=== PATIENT | female | born 1955 | race Caucasian/White ===

== ENCOUNTER 2018-01-12 19:33 | Outpatient (REF) | payer OTHER, SELFPAY ==
[2018-01-12 22:06] LABS: ALT 37 U/L (12-78); AST 17 U/L (15-37); Albumin 3.4 g/dL (3.4-5.0); Alkaline Phosphatase 176 U/L (46-116); Anion Gap 9.9 mmol/L (3-11); BUN 14 mg/dL (7-18); Bilirubin, Total 0.4 mg/dL (0.2-1.0); CO2 26.1 mmol/L (21.0-32.0); CREATININE 1.09 mg/dL (0.55-1.02); Calcium 8.6 mg/dL (8.5-10.1); Chloride 102 mmol/L (98-107); Estimated GFR 50.54 (mL/min/1.73m2); Glucose 329 mg/dL (70-100); Potassium 4.1 mmol/L (3.5-5.1); Sodium 138 mmol/L (136-145); Total Protein 6.7 g/dL (6.4-8.2)
== END 2018-01-12 19:53 ==
LOC: NCHCN 19:33
PROVIDERS: PCP Family Medicine; Visit Provider Family Medicine
DX: E11.9 Type 2 diabetes mellitus without complications (principal); I10 Essential (primary) hypertension
CPT/HCPCS: 80053

== ENCOUNTER 2018-04-04 01:06 | Outpatient (CLI) | payer OTHER, SELFPAY ==
--- NOTE | 2018-04-04 09:34 | DIABASSESS_ITS ---
DESCRIPTION/ASSESSMENT: Nallely Velazquez presents for diabetes self management with elevated A1c at 13.5. Despite hyperglycemia she reports no symptoms of thirst, frequent urination, fatigue caused by hyperglycemia. 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 FOOD: Nallely eats breakfast and supper, occasionally gets lunch on the go. She usually has toast and jelly for breakfast with black coffee. She may snack on fruit or sweets (i.e. Mongolian rolls) or tuna packet during the day. She mostly eats processed foods for supper (i.e. corn dogs) or scrambled egg. She occasionally has frozen fruit bar in the evening. Her does not cook and she frequently gets home at 6PM or later. She dislikes vegetables other than green beans, corn and peas. She denies hunger. She drinks 40oz water, sugar free soda and black coffee most days. PHYSICAL ACTIVITY: exercise is a should and does not enjoy this. She feels she has no time, and since her achilles injury has a fear of falling. She is also limited by vertigo. MEDICATION: 44 units Basal insulin twice daily and Byetta which she only takes once a day. I did not ask her the timing of her Byetta injection. She reports no change in appetite. She states she has Novolog but does not take it. Her medication list also includes Januvia and Glucotrol XL. She did not say she took these medications. MONITORING: every morning and sometimes before supper. Blood sugars are improved 122-229 fasting and pre-supper blood sugars 97 and 114. She had hypoglycemia symptoms at 97. This occurs when she does not eat during the day. COPING: She admits to daily stress with work but deals with it and does not seek any change. She sleeps 6 interrupted hours a night. INTERVENTION: DSME is provided in the following AADE 7 areas based on patients interest and assessment of needs: FOOD GUIDELINES: reviewed diabetes food guide focused on non-carbohydrate foods to nourish her through the day. She voices no motivation or interest in changing her food choices. PHYSICAL ACTIVITY: Discussed how it might fit in her day. She has no interest in doing this and finds no secondary pleasure to make it worth the effort, though she is well aware of its benefits. MEDICATION: She states she voices doubt about adding another BYETTA injection for supper. MONITORING: Blood sugars are improved but fasting generally is higher than pre- supper. Suggest she test blood sugar before bed to see if correction happens with basal insulin overnight. CGM no approved without multiple insulin dosing daily. If she initiates mealtime insulin and has wide glycemic excursions, CGM trial may be available to her if desired. Nallely is engaged in the conversation but expresses no interest in working on lifestyle as she works long hours and finds it difficult to make changes at this time. ACTION PLAN: Carry nuts and non-carbohydrate snack packs in the car for mid-day nourishment Monitor blood sugars before bed a couple of nights to assess change in blood sugar overnight and what may be causing hyperglycemia in the AM. I will call her to reinforce Byetta twice a day. Individual DSME/T ____ units billed TIME IN: OUT: No DM group education series being offered at this time.
== END 2018-04-04 01:26 ==
PROVIDERS: PCP Family Medicine; Visit Provider Dietitian, Registered
DX: E11.9 Type 2 diabetes mellitus without complications (principal); Z79.4 Long term (current) use of insulin; Z71.3 Dietary counseling and surveillance
CPT/HCPCS: G0108

== ENCOUNTER 2018-09-22 11:16 | Inpatient (IN) | payer OTHER, SELFPAY ==
[2018-09-22] VITALS (32 sets, daily range): BP systolic 129–186; BP diastolic 71–139; PULSE 84–97; RESP 16–24; TEMP 36.8–37.5; O2SAT 89–99
--- NOTE | 2018-09-22 11:28 | ED.GENADUL_ITS ---
Discharge Plan Disposition Patient Disposition: [facility] INPATIENT Condition: Stable Discharge Details Chief Complaint: Abd Prob Clinical Impression: Acute pyelonephritis, JAY (acute kidney injury), Intractable pain Admit Date/Time: 09/24/18 10:20 Admit Provider: Kevin Zhang Attending Provider: Kevin Zhang Primary Care Provider: Haylee Baptiste V ED Provider: Coni Lopez Discharge Data Discharge Date/Time-TO BE ENTERED AT DEPARTURE: 09/22/18 15:38 Medical Decision Making 63yo F w/ a h/o diabetes, fibromyalgia, coronary artery disease, GERD, hypothyroidism who presents the ED with complaint of left lower quadrant and left flank pain that started 30 minutes ago. Blood pressure hypertensive. She appears uncomfortable but nontoxic. She has minimal left side and left lower quadrant tenderness, no rigidity or guarding. Differential diagnosis includes kidney stone, diverticulitis, pancreatitis, small bowel obstruction, pyelonephritis, gastroenteritis. Will place an IV, bolus IV fluids, screening labs, urinalysis and CT renal colic. 1250 --labs and imaging reviewed. White blood cell count 15. Creatinine 1.38, normally 1.09. GFR 38, normally in the 50s. Glucose 507 but with normal bicarb, anion gap 12. Lipase within normal limits. CT notes findings consistent likely with recently passed stone but no ureterolithiasis noted. 1305 --pt feels a little better but pain still 5/10. She would like another dose of pain medicine but a smaller dose. We will give 0.2 mg of Dilaudid. Urine results pending. 1325 --nurse states that patient vomited after Dilaudid. Dose of Compazine and more IV fluids ordered. 1330 --discussed with Dr. Phelps -states that in patients with diabetes, they can slough off a piece of renal papilla which can produce findings similar to a recently passed stone. Treatment is the same. As patient has no relief with multiple doses of pain medication, acute kidney injury, and UTI, will admit for pain control, IV fluids and reassessment of labs in a.m. 1345 --discussed with hospitalist -accepts patient for admission. Medical Records Medical records reviewed: Yes I reviewed the patient's medical records. Imaging Data Radiologic Study: Radiologist's impression: ABDOMEN AND PELVIC CT: CT examination of the abdomen and pelvis was performed without contrast administration. Images obtained through the lung bases show question poorly defined nodule of the left lower lobe, this measures about 5 mm. in diameter. Follow up chest CT suggested in 6 months. The liver may be mildly enlarged. Spleen is unremarkable in appearance. Gallbladder has been surgically removed. No biliary dilatation is seen. Pancreas unremarkable by noncontrast criteria. Abdominal aorta is of normal diameter. No significant abdominal wall hernia is seen. No significant abdominal or pelvic adenopathy is seen. A solitary 16 mm. lymph node which is nonspecific is noted in the left para-aortic chain at the level of the left kidney. Appendix is not specifically visualized but there is no evidence of ap pendicitis or diverticulitis. Adrenals appear normal bilaterally. Right kidney is unremarkable in appearance and there is no right renal or ureteral calcification. Left kidney is hydronephrotic and the left ureter is not significantly dilated raising the possibility of UPJ obstruction. No stone identified. Urinary bladder shows a thickened wall. CONCLUSION: Left hydronephrosis of uncertain etiology. The findings could represent a recently passed stone, or non calcified stone, or clot or obstructing non calcified tumor of the left ureter. Left sided urinary tract obstruction, etiology uncertain. Correlation with retrograde ureteroscopy should be considered. Urinary bladder wall thickening noted which may be secondary to chronic obstructive process versus cystitis. Please correlate clinically. Lab Data Lab results reviewed: Yes I reviewed the patient's lab results. 09/22/18 12:50 Urine - Reflex from Ua Urine Culture - Final Gram Positive Zenia,Mixed Gram Negative Zenia,Mixed Laboratory Tests Range/Units 09/22/18 09/22/18 09/22/18 11:30 11:30 12:50 WBC (4.4-10.8) k/cumm 15.67 H RBC (4.00-5.20) m/cumm 4.99 Hgb (12.0-15.5) g/dL 14.1 Hct (36.0-46.0) % 42.3 MCV (80-95) fL 84.8 MCH (27.0-33.0) pg 28.3 MCHC (32.0-36.0) g/dL 33.3 RDW (11.7-14.6) % 13.2 Plt Count (130-400) x1000/uL 319 MPV (8.0-11.0) fL 11.6 H Immature Gran % 0.3 Neutrophils % 82.5 Lymphocytes % 12.2 Monocytes % 3.8 Eosinophils % 1.0 Basophils % 0.2 Absolute Neutrophils (1.2-6.7) k/cumm 12.93 H Absolute Lymphocytes (1.2-3.4) k/cumm 1.91 Absolute Monocytes (0.11-0.7) k/cumm 0.60 Absolute Eosinophils (0.0-0.7) k/cumm 0.16 Absolute Basophils (0.0-0.2) k/cumm 0.03 Sodium (136-145) mmol/L 133 L Potassium (3.5-5.1) mmol/L 4.5 Chloride (98-107) mmol/L 98 Carbon Dioxide (21.0-32.0) mmol/L 22.1 Anion Gap (3-11) mmol/L 12.9 H BUN (7-18) mg/dL 17 Creatinine (0.55-1.02) mg/dL 1.38 H Estimated GFR/1.73 m2 (mL/min/1.73m2) 38.49 Glucose (70-100) mg/dL 507 H* Calcium (8.5-10.1) mg/dL 8.7 Magnesium (1.8-2.4) mg/dL Total Bilirubin (0.2-1.0) mg/dL 0.4 AST (15-37) U/L 15 ALT (12-78) U/L 32 Alkaline Phosphatase (46-116) U/L 188 H Total Protein (6.4-8.2) g/dL 7.7 Albumin (3.4-5.0) g/dL 3.6 Lipase (73-393) U/L 168 Urine Color (Yellow) Yellow Urine Clarity (Clear) Clear Urine pH (5-8) 5.5 Ur Specific Trade (1.005-1.025) <= 1.005 Urine Protein (Negative) mg/dL Negative Urine Ketones (Negative) mg/dL Negative Urine Blood (Negative) Small H Urine Nitrite (Negative) Negative Urine Bilirubin (Negative) Negative Urine Urobilinogen (Up TO 0.2) EU/dL 0.2 Ur Leukocyte Esterase (Negative) Negative Urine RBC (0-2) 5-10 H Urine WBC (0-5) HPF 20-50 Ur Epithelial Cells (Negative) HPF Moderate Urine Crystals (Negative) HPF Negative Urine Bacteria (Negative) HPF Few Urine Casts (Negative) LPF Negative Urine Mucus (Negative) Negative Urine Other (Negative) Ur Culture Indicated? Yes Urine Glucose (Negative) mg/dL 500 H HPI General Mode of arrival: ambulatory . Date/Time Provider Initiated Documentation: 09/22/18 11:16 . Limitations to Documentation: no limitations . Information obtained by: patient . HPI Narrative: Patient is a 63-year-old female with a history of diabetes, hypertension, CAD, fibromyalgia, hypothyroidism with history of cholecystectomy and Meckel's diverticulum who presents with constant sharp left lower quadrant abdominal pain that started 30 minutes prior to arrival. She states her last bowel movement was this morning and within normal limits without bleeding. She admits to nausea but denies any vomiting, chest pain, shortness of breath, fever or urinary symptoms. She denies any history of kidney stones. Related Data Home Medications Medication Instructions Recorded Confirmed albuterol sulfate 1 - 2 puff INHALATION Q4H PRN 10/14/13 09/22/18 inhaler nitroglycerin [Nitrostat] 0.4 mg SUBLINGUAL DIRECTED 10/14/13 09/22/18 tramadol [Ultram] 50 mg PO Q6H PRN tab-cap 10/14/13 09/22/18 clopidogrel [Plavix] 75 mg PO DAILY #30 tab-cap 10/22/13 09/22/18 Delica Lancets 01/05/15 One Touch Mini Gluc 01/05/15 blood sugar diagnostic [Onetouch strip 01/05/15 09/02/16 Ultra Test Strips] fluticasone propionate [Flonase 9.9 ml NS DAILY 01/05/15 09/22/18 Allergy Relief] insulin detemir U-100 [Levemir 44 units SUB-Q BID 01/05/15 09/22/18 Vial] omeprazole [Prilosec] 20 mg PO BID tab-cap 01/05/15 09/22/18 isosorbide mononitrate 60 mg PO DAILY #60 tab-cap 01/26/15 09/22/18 atorvastatin 80 mg tablet 80 mg PO DAILY 03/06/18 09/22/18 benzonatate 100 mg capsule 100 mg PO TID PRN 03/06/18 09/22/18 exenatide 10 mcg SC .BEFORE MEALS ml 03/06/18 09/22/18 glipizide 10 mg tablet 10 mg PO DAILY 03/06/18 09/22/18 ibuprofen 800 mg tablet 800 mg PO BID 03/06/18 09/22/18 insulin aspart U-100 100 unit/mL 5 unit SC .WITH MEAL ml 03/06/18 09/22/18 subcutaneous solution losartan 100 mg tablet 50 mg PO DAILY tab 03/06/18 09/22/18 metoprolol succinate 25 mg 50 mg PO DAILY #45 tab-cap 03/06/18 09/22/18 tablet,extended release 24 hr nabumetone 750 mg tablet 750 mg PO BID 03/06/18 09/22/18 ondansetron HCl 4 mg tablet 4 mg PO .qq 4 HRS PRN tab 03/06/18 09/22/18 sitagliptin 100 mg tablet 100 mg PO DAILY 03/06/18 09/22/18 triamcinolone acetonide 0.5 % 1 applic TP TID 03/06/18 09/22/18 topical cream Allergies Allergy/AdvReac Type Severity Reaction Status Date / Time Iodinated Contrast Media Allergy Severe Anaphylaxsi Unverified 09/22/18 11:56 [Iodinated Contrast Media - s IV Dye] iodine Allergy Severe Unverified 09/22/18 11:56 amlodipine Allergy Intermediate Verified 09/22/18 11:56 codeine Allergy Unverified 09/22/18 11:56 hepatitis B virus vaccine Allergy Unverified 09/22/18 11:56 lisinopril Allergy Unverified 09/22/18 11:56 meperidine HCl [From Demerol] Allergy Unverified 09/22/18 11:56 metformin HCl Allergy Unverified 09/22/18 11:56 [From Glucophage] prednisone Allergy Unverified 09/22/18 11:56 shellfish derived Allergy Unverified 09/22/18 11:56 meperidine AdvReac Severe Cardiac Unverified 09/22/18 11:56 Dysrythmia morphine AdvReac Severe Nausea Unverified 09/22/18 11:56 oxaprozin [From Daypro] AdvReac Severe ams Unverified 09/22/18 11:56 sulindac [From Clinoril] AdvReac Intermediate ams Unverified 09/22/18 11:56 General Stated Complaint: Abd Prob ANSHU: 3 Review of Systems Review of Systems All systems reviewed & are unremarkable except as noted in HPI and below Constitutional Reports as per HPI, Denies chills and Denies fever(s) Eyes Denies blurry vision ENT Denies dizziness, Denies sore throat and Denies throat swelling Cardiovascular Denies chest pain and Denies dyspnea Respiratory Denies cough and Denies dyspnea Gastrointestinal Reports abdominal pain, Denies diarrhea and Denies vomiting Genitourinary Denies hematuria and Denies dysuria Musculoskeletal Denies back pain and Denies numbness Integumentary/Breasts Denies lesions and Denies rash Neurologic Denies dizziness, Denies focal weakness and Denies numbness Allergic/Immunologic Denies throat swelling PFSH Medical History Sagastume esophagus CAD (coronary artery disease) Cardiac murmur DM (diabetes mellitus) Fibromyalgia GERD (gastroesophageal reflux disease) Hiatal hernia Hydronephrosis, left (Acute) Hyperlipidemia (Acute) Hypothyroidism Sarcoidosis Surgical History (Updated 09/25/18 @ 08:42 by Coni Lopez DO) Cubital tunnel syndrome (Acute) egd/colo (10/20/15) Hx of cholecystectomy (Chronic) Hx of Meckel's diverticulum (Acute) TMJ (temporomandibular joint syndrome) (Acute) Social History Smoking/Tobacco Use Status: Never Drug use: Never Do you feel safe at home: Yes Do you feel safe in your relationship?: Yes Exam Const General: cooperative, healthy appearing and no acute distress HENMT Head: normal to inspection Face and sinus: normal facial exam Eyes General: appearance normal, both eyes and all related structures Pupils: PERRL EOM: EOM intact bilaterally Neck Neck: normal visual inspection and No submandibular swelling Lymphatic: no lymphadenopathy noted Chest Chest: normal inspection of the chest and no tenderness Resp Effort & Inspection: normal respiratory effort and able to speak in complete sentences Auscultation: clear to auscultation bilaterally Cardio Rate: regular rate Rhythm: regular rhythm GI Inspection: normal to inspection Palpation: soft, not firm, not rigid and tender (Minimal at left mid and left lower quadrant) Auscultation: normal bowel sounds Back/Spine/Pelvis Back: no CVA tenderness Skin General skin exam: no rashes or lesions noted Neuro General: alert, awake and oriented x3 Cognition: normal cognition Speech: speech normal Motor: muscle tone normal throughout Sensory Exam: no sensory deficits noted Extrem General: normal to inspection, full ROM, normal capillary refill, no calf tenderness bilaterally and no edema Psych Appearance: grossly normal Mental Status: mental status grossly normal Speech and Movement: speech and movement normal Affect: normal affect Course Vital Signs Temperature 98.2 F 09/22/18 11:19 Pulse 94 H 09/22/18 11:19 Respiratory Rate 18 09/22/18 11:19 Blood Pressure 186/113 H 09/22/18 11:19 Pulse Oximetry 97 09/22/18 11:19 Temperature 98.2 F 09/22/18 11:19 Temperature Source Skin 09/22/18 11:19 Pulse 94 H 09/22/18 11:19 Respiratory Rate 18 09/22/18 11:19 Blood Pressure 186/113 H 09/22/18 11:19 Pulse Oximetry 97 09/22/18 11:19 Oxygen Delivery Method Room Air 09/22/18 11:19 Oxygen Flow Rate 0 09/22/18 11:19 Pain Level 10 09/22/18 11:19
[2018-09-22] MEDS: Ondansetron 4 MG/2 ML VIAL (11:32)
[2018-09-22] MEDS: Ketorolac 30 MG/ML VIAL (11:35)
[2018-09-22] MEDS: Normal Saline Flush 10 ML SYR IVP ×2 (11:41→17:33)
[2018-09-22] MEDS: Normal Saline 1,000 ML 1000 ML IV (11:43)
[2018-09-22 11:51] LABS: Abs Immature Grans 0.04 k/cumm (0.0-0.09); Absolute Basophil Count 0.03 k/cumm (0.0-0.2); Absolute Lymphocyte Count 1.91 k/cumm (1.2-3.4); Basophils % 0.2; HCT 42.3 % (36.0-46.0); HGB 14.1 g/dL (12.0-15.5); Immature Grans % 0.3; Lymphocytes % 12.2; Mean Corp. HGB Concentration 33.3 g/dL (32.0-36.0); Mean Corpuscular Hemoglobin 28.3 pg (27.0-33.0); Mean Corpuscular Volume 84.8 fL (80-95); Mean Platelet Volume 11.6 fL (8.0-11.0); Monocytes % 3.8; Neutrophils % 82.5; Platelet Count 319 x1000/uL (130-400); RBC 4.99 m/cumm (4.00-5.20); RBC Distribution Width 13.2 % (11.7-14.6); White Blood Cell Count 15.67 k/cumm (4.4-10.8)
[2018-09-22 11:56] LABS: Absolute Eosinophil Count 0.16 k/cumm (0.0-0.7); Absolute Neutrophil Count 12.93 k/cumm (1.2-6.7)
[2018-09-22 12:10] LABS: ALT 32 U/L (12-78); AST 15 U/L (15-37); Albumin 3.6 g/dL (3.4-5.0); Alkaline Phosphatase 188 U/L (46-116); Anion Gap 12.9 mmol/L (3-11); BUN 17 mg/dL (7-18); Bilirubin, Total 0.4 mg/dL (0.2-1.0); CO2 22.1 mmol/L (21.0-32.0); CREATININE 1.38 mg/dL (0.55-1.02); Calcium 8.7 mg/dL (8.5-10.1); Chloride 98 mmol/L (98-107); Estimated GFR 38.49 (mL/min/1.73m2); Lipase 168 U/L (73-393); Potassium 4.5 mmol/L (3.5-5.1); Sodium 133 mmol/L (136-145); Total Protein 7.7 g/dL (6.4-8.2)
[2018-09-22 12:13] LABS: Glucose 507 mg/dL (70-100)
[2018-09-22] MEDS: HYDROmorphone 2 MG/ML VIAL (12:17)
--- NOTE | 2018-09-22 12:25 | DI.CT_ITS ---
SYMPTOM/DIAGNOSIS: LLQ ABD PAIN, LT FLANK PAIN, ? KIDNEY STONE, ? DIVERTICULITIS OR PANCREATITIS ABDOMEN AND PELVIC CT: CT examination of the abdomen and pelvis was performed without contrast administration. Images obtained through the lung bases show question poorly defined nodule of the left lower lobe, this measures about 5 mm. in diameter. Follow up chest CT suggested in 6 months. The liver may be mildly enlarged. Spleen is unremarkable in appearance. Gallbladder has been surgically removed. No biliary dilatation is seen. Pancreas unremarkable by noncontrast criteria. Abdominal aorta is of normal diameter. No significant abdominal wall hernia is seen. No significant abdominal or pelvic adenopathy is seen. A solitary 16 mm. lymph node which is nonspecific is noted in the left para-aortic chain at the level of the left kidney. Appendix is not specifically visualized but there is no evidence of appendicitis or diverticulitis. Adrenals appear normal bilaterally. Right kidney is unremarkable in appearance and there is no right renal or ureteral calcification. Left kidney is hydronephrotic and the left ureter is not significantly dilated raising the possibility of UPJ obstruction. No stone identified. Urinary bladder shows a thickened wall. CONCLUSION: Left hydronephrosis of uncertain etiology. The findings could represent a recently passed stone, or non calcified stone, or clot or obstructing non calcified tumor of the left ureter. Left sided urinary tract obstruction, etiology uncertain. Correlation with retrograde ureteroscopy should be considered. Urinary bladder wall thickening noted which may be secondary to chronic obstructive process versus cystitis. Please correlate clinically.
--- NOTE | 2018-09-22 12:51 | DI.VRAD_ITS ---
EXAM: CT Abdomen and Pelvis Without Contrast EXAM DATE/TIME: 09/22/2018 11:39 AM CLINICAL HISTORY: 63 years old, female; Abdominal pain; Left lower quadrant (llq); Patient HX: Llq pain and left flank pain since 1030 am 09/22/18. No gross hematuria, no HX of kidney stones, no recent surgeries. TECHNIQUE: Imaging protocol: Axial computed tomography images of the abdomen and pelvis without contrast. Coronal and sagittal reformatted images were created and reviewed. Radiation optimization: All CT scans at this facility use at least one of these dose optimization techniques: automated exposure control; mA and/or kV adjustment per patient size (includes targeted exams where dose is matched to clinical indication); or iterative reconstruction. COMPARISON: No relevant prior studies available. FINDINGS: Lungs: 4.7 mm nodule in the left lower lobe. Atelectasis in the lingula Mediastinum: Small hiatal hernia Liver: Normal. No mass. Gallbladder and bile ducts: Cholecystectomy Pancreas: Normal. No ductal dilation. Spleen: Normal. No splenomegaly. Adrenals: Normal. No mass. Kidneys and ureters: There is dilatation of LEFT collecting system and proximal LEFT ureter. No ureteral calculus. The LEFT kidney is edematous and there is significant LEFT perirenal stranding. Stomach and bowel: Diverticulosis of the rectosigmoid. No diverticulitis. Appendix: No evidence of appendicitis. Intraperitoneal space: Normal. No free air. No significant fluid collection. Vasculature: Normal. No abdominal aortic aneurysm. Lymph nodes: Normal. No enlarged lymph nodes. Bladder: Unremarkable as visualized. Reproductive: Unremarkable as visualized. Bones/joints: No acute fracture. No dislocation. Soft tissues: Unremarkable. IMPRESSION: 1. There is dilatation of LEFT collecting system and proximal LEFT ureter. No ureteral calculus. The LEFT kidney is edematous and there is significant LEFT perirenal stranding. The findings could be due to a recently passed stone, a noncalcified stone or clot or soft tissue process in the right ureter, or an infectious/inflammatory process of the blank collecting system. 2. 4.7 mm nodule in the left lower lobe. Dictated and Authenticated by: Pat Schilling MD. Ordering:ANAM Newberry MD
[2018-09-22 13:00] LABS: Bilirubin Negative (Negative); Blood Small (Negative); Clarity Clear (Clear); Glucose 500 mg/dL (Negative); Ketones Negative (Negative); Leukocyte Esterase Negative (Negative); Nitrite Negative (Negative); Specific Gravity <= 1.005 (1.005-1.025); Urobilinogen 0.2 EU/dL (Up TO 0.2); pH 5.5 (5-8)
[2018-09-22 13:09] LABS: WBC 20-50 HPF (0-5)
[2018-09-22 13:10] LABS: Bacteria Few HPF (Negative); C & S Indicated? Yes; Casts Negative LPF (Negative); Crystals Negative HPF (Negative); Epithelial Cells Moderate HPF (Negative); Mucus Negative (Negative)
[2018-09-22] MEDS: HYDROmorphone 2 MG/ML VIAL IVP (13:12)
[2018-09-22] MEDS: Normal Saline 1,000 ML 125 ML IV ×2 (13:20→18:20)
[2018-09-22] MEDS: Insulin REGULAR-Human 100 UNITS/ML UNIT 7 UNITS IV (13:23)
[2018-09-22] MEDS: Prochlorperazine 10 MG/2 ML VIAL IVP (13:59)
[2018-09-22] MEDS: cefTRIAXone 1 GM/50 ML BAG IVPB (14:28)
--- NOTE | 2018-09-22 15:18 | HPE_ITS ---
Date of service: 09/22/18 Time of Service: 15:53 Assessment and Plan (1) JAY (acute kidney injury): Current visit: Yes Status: Acute Patient presents to [facility] emergency department for left sided flank pain with tenderness. Urinalysis negative for nitrates and leukocytes. Dr. Phelps consulted in the ED and believes patient passed a kidney stone prior to arrival. She is admitted to [facility] for JAY from possible stone, she will be lightly hydrated with NS at 125. Beyetta and ARB held for renal function. Januvia will be changed to 50 for decreased renal function. Avoid nephrotoxic medications. IV tylenol for pain and home dose of tramadol. Monitor renal function and electrolytes. (2) Hyperglycemia: Start date: 09/22/18 Start time: 15:29 Current visit: Yes Status: Acute In the setting of an infection with nausea prompting patient to skip am dose resulting in a glucose of 507 by labs and 500 urine. Given 7 units IV insulin in ED. Started on saline continue home medication of glipizide, SSI- moderate, Januvia at 50 for renal dosing, resume 100 mg when renally appropriate. Monitor electrolytes and renal function. (3) HTN (hypertension): Start date: 09/22/18 Start time: 15:33 Current visit: Yes Status: Chronic Continue metoprolol and isosorbide (4) Hyperlipidemia: Start date: 09/22/18 Start time: 15:34 Current visit: Yes Status: Acute Continue atorvastatin (5) DVT prophylaxis: Start date: 09/22/18 Start time: 15:34 Current visit: Yes Status: Acute enoxaparin (6) GERD (gastroesophageal reflux disease): Start date: 09/22/18 Start time: 15:34 Current visit: No Status: None Omeprazole (7) Fibromyalgia: Start date: 09/22/18 Start time: 15:35 Current visit: No Status: None continue home dose of tramadol and IV tylenol for pain (8) CAD (coronary artery disease): Start date: 09/22/18 Start time: 15:35 Current visit: No Status: None History of Present Illness Chief Complaint: JAY, POSSIBLE STONE Narrative: 63 y.o Female with PMH of Insulin dependent diabetes, GERD, Fibromyalgia, CAD, Hyperlipidemia, and HTN presents to [facility] emergency department with severe onset of left lower quad abdominal pain and flank pain. Dr. Phelps consulted in ED and believed to have passed a kidney stone prior to her arrival. Labs in the ED reveal glucose of 507 creatinine 1.38. anion gap of 12.9, CO2 of 22.1 . Urinalysis reveals no nitrates, no leukocytes, small amount of blood, and urine glucose of 500. She has been asked to be admitted to our service for for A KI, UTI- which she does not appear to have, and pain control. Light hydration was started, avoid nephrotoxic medications, Januvia decreased to 50 mg from 100 mg for decreased renal function. Beyetta and ARB held due to renal function. Hyperglycemia in the setting of kidney stone with nausea prompted the patient to skip her am dose of medications resulting elevated glucose. SSI with moderate scale for glucose monitoring; her repeat BGL 177 after treatment in the ED. Continue glipizide, diabetic diet and monitor electrolytes. Continue home Isorsobide and metoprolol for HTN, hold ARB. Atorvastatin for hyperlipidemia. Patient also states Echo many years ago with cardiac cath revealing only 25% blockage of a vessel so she was placed on plavix, we will continue plavix. She denies n/v/d, IV tylenol for pain and her home regimen of tramadol. No CVA tenderness at this time and she states her abdominal pain only feels sore now. Denies CP, SOB. Review of Systems Review of Systems All systems reviewed & are unremarkable except as noted in HPI and below Constitutional Reports system reviewed and no additional complaints, except as docu Eyes Reports system reviewed and no additional complaints, except as docu ENT Reports system reviewed and no additional complaints, except as docu Cardiovascular Reports system reviewed and no additional complaints, except as docu Respiratory Reports system reviewed and no additional complaints, except as docu Gastrointestinal Reports as per HPI Genitourinary Reports as per HPI Musculoskeletal Reports system reviewed and no additional complaints, except as docu Integumentary/Breasts Reports system reviewed and no additional complaints, except as docu Neurologic Reports system reviewed and no additional complaints, except as docu Psychiatric Reports system reviewed and no additional complaints, except as docu Endocrine Reports as per HPI Hematologic/Lymphatic Reports system reviewed and no additional complaints, except as docu Allergic/Immunologic Reports system reviewed and no additional complaints, except as [facility] Medical History Sagastume esophagus CAD (coronary artery disease) Cardiac murmur DM (diabetes mellitus) Fibromyalgia GERD (gastroesophageal reflux disease) Hiatal hernia Hydronephrosis, left (Acute) Hyperlipidemia (Acute) Hypothyroidism Sarcoidosis Surgical History (Updated 09/25/18 @ 08:42 by Coni Lopez DO) Cubital tunnel syndrome (Acute) egd/colo (10/20/15) Hx of cholecystectomy (Chronic) Hx of Meckel's diverticulum (Acute) TMJ (temporomandibular joint syndrome) (Acute) Social History Smoking/Tobacco Use Status: Never Drug use: Never Do you feel safe at home: Yes Do you feel safe in your relationship?: Yes Meds Home Medications Medication Instructions Recorded Confirmed Type albuterol sulfate 1 - 2 puff INHALATION Q4H PRN 10/14/13 09/22/18 History inhaler nitroglycerin [Nitrostat] 0.4 mg SUBLINGUAL DIRECTED 10/14/13 09/22/18 History tramadol [Ultram] 50 mg PO Q6H PRN tab-cap 10/14/13 09/22/18 History clopidogrel [Plavix] 75 mg PO DAILY #30 tab-cap 10/22/13 09/22/18 History Delica Lancets 01/05/15 History One Touch Mini Gluc 01/05/15 History blood sugar diagnostic [Onetouch strip 01/05/15 09/02/16 History Ultra Test Strips] fluticasone propionate [Flonase 9.9 ml NS DAILY 01/05/15 09/22/18 History Allergy Relief] insulin detemir U-100 [Levemir 44 units SUB-Q BID 01/05/15 09/22/18 History Vial] omeprazole [Prilosec] 20 mg PO BID tab-cap 01/05/15 09/22/18 History isosorbide mononitrate 60 mg PO DAILY #60 tab-cap 01/26/15 09/22/18 History atorvastatin 80 mg tablet 80 mg PO DAILY 03/06/18 09/22/18 History benzonatate 100 mg capsule 100 mg PO TID PRN 03/06/18 09/22/18 History exenatide 10 mcg SC .BEFORE MEALS ml 03/06/18 09/22/18 History glipizide 10 mg tablet 10 mg PO DAILY 03/06/18 09/22/18 History ibuprofen 800 mg tablet 800 mg PO BID 03/06/18 09/22/18 History insulin aspart U-100 100 unit/mL 5 unit SC .WITH MEAL ml 03/06/18 09/22/18 History subcutaneous solution losartan 100 mg tablet 50 mg PO DAILY tab 03/06/18 09/22/18 History metoprolol succinate 25 mg 50 mg PO DAILY #45 tab-cap 03/06/18 09/22/18 History tablet,extended release 24 hr nabumetone 750 mg tablet 750 mg PO BID 03/06/18 09/22/18 History ondansetron HCl 4 mg tablet 4 mg PO .qq 4 HRS PRN tab 03/06/18 09/22/18 History sitagliptin 100 mg tablet 100 mg PO DAILY 03/06/18 09/22/18 History triamcinolone acetonide 0.5 % 1 applic TP TID 03/06/18 09/22/18 History topical cream Allergies Allergy/AdvReac Type Severity Reaction Status Date / Time Iodinated Contrast Media Allergy Severe Anaphylaxsi Unverified 09/22/18 11:56 [Iodinated Contrast Media - s IV Dye] iodine Allergy Severe Unverified 09/22/18 11:56 amlodipine Allergy Intermediate Verified 09/22/18 11:56 codeine Allergy Unverified 09/22/18 11:56 hepatitis B virus vaccine Allergy Unverified 09/22/18 11:56 lisinopril Allergy Unverified 09/22/18 11:56 meperidine HCl [From Demerol] Allergy Unverified 09/22/18 11:56 metformin HCl Allergy Unverified 09/22/18 11:56 [From Glucophage] prednisone Allergy Unverified 09/22/18 11:56 shellfish derived Allergy Unverified 09/22/18 11:56 meperidine AdvReac Severe Cardiac Unverified 09/22/18 11:56 Dysrythmia morphine AdvReac Severe Nausea Unverified 09/22/18 11:56 oxaprozin [From Daypro] AdvReac Severe ams Unverified 09/22/18 11:56 sulindac [From Clinoril] AdvReac Intermediate ams Unverified 09/22/18 11:56 Exam Const General: cooperative, healthy appearing, comfortable and no acute distress [facility] Head: normal to inspection Ears: hearing grossly normal bilaterally Eyes General: appearance normal, both eyes and all related structures Pupils: PERRL Neck Neck: normal visual inspection Lymphatic: no lymphadenopathy noted and no lymphedema noted Chest Chest: normal inspection of the chest Resp Effort & Inspection: normal respiratory effort Auscultation: clear to auscultation bilaterally Cardio Jugular venous pressure: no JVD Palpation: normal PMI Rate: regular rate Rhythm: regular rhythm Heart Sounds: S1 normal and S2 normal GI Inspection: normal to inspection Palpation: soft Auscultation: normal bowel sounds General: No CVA tenderness Back/Spine/Pelvis Back: no CVA tenderness Cervical Spine: cervical ROM normal Skin General skin exam: no rashes or lesions noted Lesions: no lesions Rashes: no rashes Trauma: no lacerations or abrasions Wounds: no wounds Neuro General: alert, awake, oriented x3 and moves all extremities Extrem General: normal to inspection Right upper extremity: normal to inspection Left upper extremity: normal to inspection Right lower extremity: normal to inspection Left lower extremity: normal to inspection Psych Appearance: grossly normal Results Labs : 09/26/18 06:45 09/26/18 06:45 Laboratory Results - last 24 hr 09/22/18 09/22/18 09/22/18 11:30 11:30 12:50 WBC 15.67 H RBC 4.99 Hgb 14.1 Hct 42.3 MCV 84.8 MCH 28.3 MCHC 33.3 RDW 13.2 Plt Count 319 MPV 11.6 H Immature Gran % 0.3 Neutrophils % 82.5 Lymphocytes % 12.2 Monocytes % 3.8 Eosinophils % 1.0 Basophils % 0.2 Absolute Neutrophils 12.93 H Absolute Lymphocytes 1.91 Absolute Monocytes 0.60 Absolute Eosinophils 0.16 Absolute Basophils 0.03 Sodium 133 L Potassium 4.5 Chloride 98 Carbon Dioxide 22.1 Anion Gap 12.9 H BUN 17 Creatinine 1.38 H Estimated GFR/1.73 m2 38.49 Glucose 507 H* Calcium 8.7 Total Bilirubin 0.4 AST 15 ALT 32 Alkaline Phosphatase 188 H Total Protein 7.7 Albumin 3.6 Lipase 168 Urine Color Yellow Urine Clarity Clear Urine pH 5.5 Ur Specific [place] <= 1.005 Urine Protein Negative Urine Ketones Negative Urine Blood Small H Urine Nitrite Negative Urine Bilirubin Negative Urine Urobilinogen 0.2 Ur Leukocyte Esterase Negative Urine RBC 5-10 H Urine WBC 20-50 Ur Epithelial Cells Moderate Urine Crystals Negative Urine Bacteria Few Urine Casts Negative Urine Mucus Negative Ur Culture Indicated? Yes Urine Glucose 500 H Last Vital Signs Temp 37.0 C 09/22/18 12:55 Pulse 87 09/22/18 14:31 Resp 24 09/22/18 14:40 BP 150/72 H 09/22/18 14:31 Pulse Ox 94 L 09/22/18 14:40
[2018-09-22] MEDS: ACETAMINOPHEN 1,000 MG/100 ML BTL 400 MG IVPB ×2 (17:25→23:58)
[2018-09-22] MEDS: Ondansetron 4 MG/2 ML VIAL IVP (17:33)
[2018-09-22] MEDS: Enoxaparin 40 MG/0.4 ML SYR SC (17:37)
[2018-09-22] MEDS: Omeprazole 20 MG CAPCR PO (19:50)
[2018-09-23] MEDS: Normal Saline 1,000 ML 125 ML IV ×2 (01:48→09:40)
[2018-09-23] MEDS: ACETAMINOPHEN 1,000 MG/100 ML BTL 400 MG IVPB ×4 (06:17→23:30)
[2018-09-23 07:05] LABS: Abs Immature Grans 0.05 k/cumm (0.0-0.09); Absolute Basophil Count 0.02 k/cumm (0.0-0.2); Absolute Neutrophil Count 13.73 k/cumm (1.2-6.7); Basophils % 0.1; Eosinophils % 0.2; HCT 38.4 % (36.0-46.0); HGB 12.7 g/dL (12.0-15.5); Immature Grans % 0.3; Lymphocytes % 11.6; Mean Corp. HGB Concentration 33.1 g/dL (32.0-36.0); Mean Corpuscular Hemoglobin 28.3 pg (27.0-33.0); Mean Corpuscular Volume 85.7 fL (80-95); Mean Platelet Volume 11.3 fL (8.0-11.0); Monocytes % 4.3; Neutrophils % 83.5; Platelet Count 246 x1000/uL (130-400); RBC 4.48 m/cumm (4.00-5.20); RBC Distribution Width 13.1 % (11.7-14.6); White Blood Cell Count 16.44 k/cumm (4.4-10.8)
[2018-09-23 07:09] LABS: Absolute Eosinophil Count 0.03 k/cumm (0.0-0.7); Absolute Lymphocyte Count 1.91 k/cumm (1.2-3.4); Absolute Monocyte Count 0.71 k/cumm (0.11-0.7)
[2018-09-23 07:17] LABS: Anion Gap 11.4 mmol/L (3-11); BUN 18 mg/dL (7-18); CO2 20.6 mmol/L (21.0-32.0); CREATININE 1.62 mg/dL (0.55-1.02); Calcium 7.8 mg/dL (8.5-10.1); Chloride 107 mmol/L (98-107); Estimated GFR 31.99 (mL/min/1.73m2); Glucose 193 mg/dL (70-100); Magnesium 1.5 mg/dL (1.8-2.4); Potassium 4.3 mmol/L (3.5-5.1); Sodium 139 mmol/L (136-145)
[2018-09-23 07:49] VITALS: BP 122/71; PULSE 89; RESP 16; TEMP 36.5; O2SAT 96
[2018-09-23] MEDS: Metoprolol CR 25 MG TABCR 50 MG PO (07:50)
[2018-09-23] MEDS: Clopidogrel 75 MG TAB PO (07:50)
[2018-09-23] MEDS: glipiZIDE 10 MG TAB PO (07:50)
[2018-09-23] MEDS: Omeprazole 20 MG CAPCR PO ×2 (07:50→19:43)
[2018-09-23] MEDS: Isosorbide Mononitrate 30 MG TABCR 60 MG PO (07:50)
[2018-09-23] MEDS: Atorvastatin 40 MG TAB 80 MG PO (07:50)
[2018-09-23] MEDS: Insulin Aspart 300 UNITS/3 ML PEN SC (07:51)
[2018-09-23] MEDS: MAGNESIUM SULFATE 4 GM/100 ML BAG IVPB (10:17)
[2018-09-23 10:35] VITALS: O2SAT 96
[2018-09-23] MEDS: traMADol 50 MG TAB PO (10:54)
--- NOTE | 2018-09-23 11:08 | PHARADMIT ---
Addendum entered by Britt Yañez 09/27/18 14:59: Pharmacy Note Subjective pt. went down to [facility] [place] of nephrostomy tube Objective BP-177/97 other VS okay weight-54 kg (huge drop/typo?) [id number] Assessment ceftriaxone discontinued (completed 5 days) Plan watch weight tomorrow Addendum entered by Ellen Ivy 09/26/18 15:51: Pharmacy Note Subjective JAY post stent placement Objective vs ok, wt down 1.4kg, I/O -3330ml yesterday, Scr down to 1.32, FS 114 Assessment UC pending(prelim shows yeast less than 10,000 col/ml ), ceftriaxone IV continues day5 Plan monitor ins and outs; continue ceftriaxone; continue to hold losartan in setting of JAY; Addendum entered by Haylee Pizarro 09/25/18 15:46: Pharmacy Note Subjective Feeling better, pain has resolved Objective BP 153/77, Scr 1.43, WBX 17.17 (21.37 yesterday), ~10 lb weight gain with IV fluids, Repeat UA is pending Assessment Chest xray consistent with acute CHF, serum creatinine is trending down Plan Diurese with lasix PRN - continue to monitor ins and outs; continue ceftriaxone; continue to hold losartan in setting of JAY; UA repeated today -- still pending Original Note: Admission Pharmacy Clinical Review JAY, ?Passed kidney stone Code Status Full Code Current Weight 82.8 kg Renally Cleared and Narrow Therapeutic Index Meds CrCl~27.7ml/min QTc Value / Action Taken old BP Control, Fever BP 122/71 Afebrile Pain 6/10 Electrolytes reviewed Mag 1.5 (4gram IV x1) DVT Prophylaxis Lovenox (plus Plavix) Opiate Usage / Scheduled Bowel Regimen Ordered Dilaudid/Tramadol-Just Miralax Plt/SCr for Heparin / Enoxaparin Plt 246 SCr 1.62 (up from 1.38) INR for Warfarin H/H stable, WBC/Bands H/H 12.7/38.4 WBC 16.44 (up) Antibiotic appropriateness rec'd Rocephin x1 in ED 09/22/18 Cultures and Sensitivities repeat Urinalysis...pending Surgical ABX d/c within 24 hr DM control / Insulin Dosing BG 193 (Glipizide, Januvia, Novolog/Levemir) Heart Failure (Check EF%) (MAURICIO's, B-Block, Diuretics) Imdur, Toprol, NTG sl, IV to PO Switch Need to change APAP from IV to oral if possible when and if pain subsides Home Meds Reviewed Pt's own Triamcinolone 0.5% cream-Not avail at this time Home Meds Not Ordered Trulicity, Ibuprofen, Losartan, Relafen Comments feels better overnight since admission, no nausea...sudden increase in pain @ 11am, concerned about jump in SCr since Losartan was held, may have passed kidney stone prior to arrival Repeat U/A today
[2018-09-23] MEDS: Ondansetron 4 MG/2 ML VIAL IVP ×2 (11:18→16:31)
[2018-09-23] MEDS: Normal Saline Flush 10 ML SYR IVP ×6 (11:19→21:42)
[2018-09-23] MEDS: HYDROmorphone 2 MG/ML VIAL 0.5 MG IVP ×6 (11:28→21:41)
--- NOTE | 2018-09-23 11:51 | DI.US_ITS ---
SYMPTOM/DIAGNOSIS: ? STONE BLOCKAGE ABDOMEN AND RENAL ULTRASOUND: The visualized liver parenchyma is normal in appearance. The gallbladder has been surgically removed. No biliary dilatation is seen. Pancreas unremarkable. Spleen is unremarkable. There is left hydronephrosis as noted on yesterday's CT. Left ureteral jet not identified in the urinary bladder. Bladder appears thick walled as noted on CT. CONCLUSION: Left hydronephrosis. Additional evaluation with retrograde study may be considered for further evaluation.
[2018-09-23 12:35] LABS: Bilirubin Negative (Negative); Blood Small (Negative); Clarity Clear (Clear); Glucose 100 mg/dL (Negative); Ketones Negative (Negative); Leukocyte Esterase Trace (Negative); Nitrite Negative (Negative); Specific Gravity <= 1.005 (1.005-1.025); Urobilinogen 0.2 EU/dL (Up TO 0.2); pH 5.5 (5-8)
--- NOTE | 2018-09-23 12:35 | DI.VRAD_ITS ---
EXAM: US Abdomen Complete EXAM DATE/TIME: 09/23/2018 12:11 PM CLINICAL HISTORY: 63 years old, female; Other: Llq pain; Prior surgery; Surgery date: 6+ months; Surgery type: S/P jorge; Additional info: Recent CT abd/pelvis TECHNIQUE: Imaging protocol: Real-time ultrasound of the abdomen with image documentation. COMPARISON: CT ABDOMEN PELVIS WO 09/22/2018 12:24 PM FINDINGS: Liver: There is a diffuse increase in hepatic parenchymal echogenicity, consistent with fatty infiltration. Hepatomegaly 18 cm Gallbladder: Cholecystectomy Common bile duct: Common bile duct 4.8 mm The common bile duct 4.8 mm Pancreas: Visualized pancreas is unremarkable. Right kidney: Right kidney 8.8 cm Left kidney: Mild hydronephrosis in the left kidney. Left kidney 11 cm Spleen: Normal. No splenomegaly. Bladder: Prevoid bladder volume 49 cubic centimeters Left ureteral jet is not identified. Aorta: Aorta 1.6 cm Inferior vena cava: Normal. Portal venous: Antegrade flow in the portal vein IMPRESSION: 1. Mild hydronephrosis in the left kidney. 2. Left ureteral jet is not identified. Dictated and Authenticated by: Pat Schilling MD. Ordering:BERNADETTE Gamez MD
[2018-09-23 12:49] LABS: WBC 20-50 HPF (0-5)
[2018-09-23 12:50] LABS: Bacteria Moderate HPF (Negative); C & S Indicated? No/Sq. Contamination; Casts Negative LPF (Negative); Crystals Negative HPF (Negative); Epithelial Cells Moderate HPF (Negative); Mucus Trace (Negative); Other Cells Few Transitional (Negative)
[2018-09-23 12:55] VITALS: BP 137/70; PULSE 83; RESP 20; TEMP 36.7; O2SAT 94
--- NOTE | 2018-09-23 13:10 | W.PM.PROGNOT ---
Documented by User: Vera Tavera NP 09/23/18 14:22 Date of Service Date of service: 09/23/18 Time of Service: 13:10 Assessment and Plan (1) JAY (acute kidney injury): Start date: 09/23/18 Start time: 13:31 Current visit: Yes Status: Acute JAY worse today with creatinine up to 1.62 from yesterday. WBC increase to 16.5, pain reoccurred around 11 am in LLQ with radiation to left flank area with nausea and vomiting. Dilaudid 0.5 mg ordered IV with stat u/s revealing mild hydronephrosis to left kidney and left ureteral jet not identified. Repeat UA with leukocytes no nitrates, started on rocephin for coverage. Phone consultation with [facility] urology recommends continue hydration, ceftriaxone and repeat imaging of CT if patient becomes worse or labs become worse. Repeat BMP in [address] Phelps. If patient does not improve consider transfer to tertiary. (2) Hyperglycemia: Start date: 09/23/18 Start time: 14:17 Current visit: Yes Status: Acute Continue to monitor with SSI bgl 111. Will need to increase januvia on discharge (3) HTN (hypertension): Start date: 09/23/18 Start time: 14:19 Current visit: Yes Status: Chronic Continue metoprolol and isosorbide (4) Hyperlipidemia: Start date: 09/23/18 Start time: 14:20 Current visit: Yes Status: Acute Continue atorvastatin (5) DVT prophylaxis: Start date: 09/23/18 Start time: 14:20 Current visit: Yes Status: Acute enoxaparin (6) GERD (gastroesophageal reflux disease): Start date: 09/23/18 Start time: 14:21 Current visit: No Status: None Omeprazole (7) Fibromyalgia: Start date: 09/23/18 Start time: 14:21 Current visit: No Status: None continue home dose of tramadol and IV tylenol for pain (8) CAD (coronary artery disease): Start date: 09/23/18 Start time: 14:21 Current visit: No Status: None history of CAD with cardiac catherization revealing 25% in a vessel placed on plavix Subjective Interval history since last seen: Mrs. Velazquez seem to be improving overnight however her creatinine increased to 1.62 despite holding nephrotoxic medication and light IV hydration. WBC increased from 15.67 to 16.44. Repeat U/A with trace esterase no nitrates. Patient started having severe episode of pain around 11 that started in LLQ and radiated back to kidney with nausea and vomiting. Given dilaudid 0.5 mg IV now with and Stat U/S ordered of renal and abdomen revealing mild hydronephrosis of the left kidney with left ureteral jet not identified. Phone consultation with [facility] urology recommends continue hydration, ceftriaxone and repeat imaging of CT if patient becomes worse or labs become worse. Repeat BMP in [address] Phelps. If patient does not improve consider transfer to tertiary. Exam Const General: cooperative, healthy appearing, comfortable and no acute distress [facility] Head: normal to inspection Ears: hearing grossly normal bilaterally Eyes General: appearance normal, both eyes and all related structures Pupils: PERRL Neck Neck: normal visual inspection Lymphatic: no lymphadenopathy noted and no lymphedema noted Chest Chest: normal inspection of the chest Resp Effort & Inspection: normal respiratory effort Auscultation: clear to auscultation bilaterally Cardio Jugular venous pressure: no JVD Palpation: normal PMI Rate: regular rate Rhythm: regular rhythm Heart Sounds: S1 normal and S2 normal GI Inspection: normal to inspection Palpation: soft Auscultation: normal bowel sounds General: CVA tenderness on the left Back/Spine/Pelvis Back: no CVA tenderness Cervical Spine: cervical ROM normal Skin General skin exam: no rashes or lesions noted Lesions: no lesions Rashes: no rashes Trauma: no lacerations or abrasions Wounds: no wounds Neuro General: alert, awake, oriented x3 and moves all extremities Extrem General: normal to inspection Right upper extremity: normal to inspection Left upper extremity: normal to inspection Right lower extremity: normal to inspection Left lower extremity: normal to inspection Psych Appearance: grossly normal Objective Objective Clinical Data: Abnormal lab results 09/22/18 09/23/18 09/23/18 Range/Units 12:50 06:45 06:45 WBC 16.44 H (4.4-10.8) k/cumm MPV 11.3 H (8.0-11.0) fL Absolute Neutrophils 13.73 H (1.2-6.7) k/cumm Absolute Monocytes 0.71 H (0.11-0.7) k/cumm Carbon Dioxide 20.6 L (21.0-32.0) mmol/L Anion Gap 11.4 H (3-11) mmol/L Creatinine 1.62 H (0.55-1.02) mg/dL Glucose 193 H D (70-100) mg/dL Calcium 7.8 L (8.5-10.1) mg/dL Magnesium 1.5 L (1.8-2.4) mg/dL Urine Blood Small H (Negative) Ur Leukocyte Esterase (Negative) Urine RBC 5-10 H (0-2) Urine Glucose 500 H (Negative) mg/dL 09/23/18 Range/Units 10:23 WBC (4.4-10.8) k/cumm MPV (8.0-11.0) fL Absolute Neutrophils (1.2-6.7) k/cumm Absolute Monocytes (0.11-0.7) k/cumm Carbon Dioxide (21.0-32.0) mmol/L Anion Gap (3-11) mmol/L Creatinine (0.55-1.02) mg/dL Glucose (70-100) mg/dL Calcium (8.5-10.1) mg/dL Magnesium (1.8-2.4) mg/dL Urine Blood Small H (Negative) Ur Leukocyte Esterase Trace H (Negative) Urine RBC 10-20 H (0-2) Urine Glucose (Negative) mg/dL Vital Signs Temperature 36.7 C 09/23/18 12:55 Temperature Source Tympanic 09/23/18 12:55 Pulse 83 09/23/18 12:55 Pulse Rhythm Regular 09/23/18 07:46 Pulse 92 H 09/22/18 15:10 Respiratory Rate 20 09/23/18 12:55 Respiratory Effort Non-Labored 09/23/18 07:46 Respiratory Depth Normal 09/23/18 07:46 Respiratory Pattern Normal 09/23/18 07:46 Blood Pressure 137/70 09/23/18 12:55 Blood Pressure Mean 91 09/22/18 15:01 Pulse Oximetry 94 L 09/23/18 12:55 Oxygen Delivery Method Room Air 09/23/18 12:55 Oxygen Flow Rate 0 09/23/18 12:55 Pain Level 9 09/23/18 12:55 Intake & Output 09/22/18 09/23/18 09/23/18 23:59 11:59 23:59 Intake Total 2182.167 / 2182.167 2806.666 / 3066.666 260 / 3066.666 Output Total 600 / 600 600 / 800 200 / 800 Balance 1582.167 / 7154.086 8344.666 / 2266.666 60 / 2266.666 Weight 82.8 kg Intake: IV 2122.167 / 2122.167 2156.666 / 2316.666 160 / 2316.666 Oral 60 / 60 650 / 750 100 / 750 Output: Urine 300 / 300 600 / 600 Emesis 300 / 300 200 / 200 Other: Urine Color Straw Yellow Urine Appearance Clear Urine Odor Normal Comment UA collected Emesis Description Undigested Food Undigested Food Voiding Methods Toilet Toilet Laboratory Results WBC 16.44 k/cumm (4.4-10.8) H 09/23/18 06:45 RBC 4.48 m/cumm (4.00-5.20) 09/23/18 06:45 Hgb 12.7 g/dL (12.0-15.5) 09/23/18 06:45 Hct 38.4 % (36.0-46.0) 09/23/18 06:45 MCV 85.7 fL (80-95) 09/23/18 06:45 MCH 28.3 pg (27.0-33.0) 09/23/18 06:45 MCHC 33.1 g/dL (32.0-36.0) 09/23/18 06:45 RDW 13.1 % (11.7-14.6) 09/23/18 06:45 Plt Count 246 x1000/uL (130-400) 09/23/18 06:45 MPV 11.3 fL (8.0-11.0) H 09/23/18 06:45 Immature Gran % 0.3 09/23/18 06:45 83.5 09/23/18 06:45 11.6 09/23/18 06:45 4.3 09/23/18 06:45 0.2 09/23/18 06:45 0.1 09/23/18 06:45 Absolute Neutrophils 13.73 k/cumm (1.2-6.7) H 09/23/18 06:45 Absolute Lymphocytes 1.91 k/cumm (1.2-3.4) 09/23/18 06:45 Absolute Monocytes 0.71 k/cumm (0.11-0.7) H 09/23/18 06:45 Absolute Eosinophils 0.03 k/cumm (0.0-0.7) 09/23/18 06:45 Absolute Basophils 0.02 k/cumm (0.0-0.2) 09/23/18 06:45 Sodium 139 mmol/L (136-145) 09/23/18 06:45 Potassium 4.3 mmol/L (3.5-5.1) 09/23/18 06:45 Chloride 107 mmol/L (98-107) 09/23/18 06:45 Carbon Dioxide 20.6 mmol/L (21.0-32.0) L 09/23/18 06:45 11.4 mmol/L (3-11) H 09/23/18 06:45 BUN 18 mg/dL (7-18) 09/23/18 06:45 1.62 mg/dL (0.55-1.02) H 09/23/18 06:45 31.99 (mL/min/1.73m2) 09/23/18 06:45 Glucose 193 mg/dL (70-100) H D 09/23/18 06:45 Calcium 7.8 mg/dL (8.5-10.1) L 09/23/18 06:45 Magnesium 1.5 mg/dL (1.8-2.4) L 09/23/18 06:45 0.4 mg/dL (0.2-1.0) 09/22/18 11:30 AST 15 U/L (15-37) 09/22/18 11:30 ALT 32 U/L (12-78) 09/22/18 11:30 188 U/L (46-116) H 09/22/18 11:30 7.7 g/dL (6.4-8.2) 09/22/18 11:30 3.6 g/dL (3.4-5.0) 09/22/18 11:30 168 U/L (73-393) 09/22/18 11:30 Yellow (Yellow) 09/23/18 10:23 Clear (Clear) 09/23/18 10:23 5.5 (5-8) 09/23/18 10:23 Ur Specific [place] <= 1.005 (1.005-1.025) 09/23/18 10:23 Negative mg/dL (Negative) 09/23/18 10:23 Negative mg/dL (Negative) 09/23/18 10:23 Small (Negative) H 09/23/18 10:23 Negative (Negative) 09/23/18 10:23 Negative (Negative) 09/23/18 10:23 0.2 EU/dL (Up TO 0.2) 09/23/18 10:23 Ur Leukocyte Esterase Trace (Negative) H 09/23/18 10:23 10-20 (0-2) H 09/23/18 10:23 20-50 HPF (0-5) 09/23/18 10:23 Ur Epithelial Cells Moderate HPF (Negative) 09/23/18 10:23 Negative HPF (Negative) 09/23/18 10:23 Moderate HPF (Negative) 09/23/18 10:23 Negative LPF (Negative) 09/23/18 10:23 Trace (Negative) 09/23/18 10:23 Few transitional (Negative) 09/23/18 10:23 Ur Culture Indicated? No/sq. contamination 09/23/18 10:23 100 mg/dL (Negative) 09/23/18 10:23 Documented by User: Kevin Zhang MD 09/27/18 14:29
[2018-09-23] MEDS: cefTRIAXone 1 GM/50 ML BAG IVPB (13:38)
[2018-09-23 13:47] LABS: Anion Gap 8.3 mmol/L (3-11); BUN 18 mg/dL (7-18); CO2 23.7 mmol/L (21.0-32.0); CREATININE 1.71 mg/dL (0.55-1.02); Chloride 107 mmol/L (98-107); Estimated GFR 30.05 (mL/min/1.73m2); Glucose 111 mg/dL (70-100); Potassium 3.8 mmol/L (3.5-5.1); Sodium 139 mmol/L (136-145)
--- NOTE | 2018-09-23 15:16 | PDOC.CMIN ---
Care Management Initial Assess REASON FOR HOSPITALIZATION:: JAY, Possible kidney Stone PAST MEDICAL HISTORY/PAST SURGICAL HISTORY:: Medical: CAD, diabetes, GERD; Sarcoidosis; Sagastume esophagus. CAD (coronary artery disease); Cardiac murmur; DM (diabetes mellitus). Fibromyalgia; GERD (gastroesophageal reflux disease); Hiatal hernia; Hyperlipidemia (Acute); Hypothyroidism; Sarcoidosis. 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 She lives with her , Maurice, at their home in [place]. One daughter, Loren hodges, lives nearby in [place]. Independent at baseline. CURRENT FUNCTIONAL STATUS:: Nallely is lying in bed and in a great deal of pain at this time. ADVANCE DIRECTIVES:: None on file Has patient been provided with information about the portal?: No Did the patient sign up for the portal?: No CODE STATUS:: Full Code INSURANCE COVERAGE / FINANCIAL ISSUES:: [facility] CURRENT HOME/COMMUNITY SERVICES/EQUIPMENT:: None PRIMARY CARE PHYSICIAN:: [facility]: Dr. Baptiste POTENTIAL DISCHARGE NEEDS:: None identified PATIENT/FAMILY EDUCATION NEEDS:: Discharge instructions ANTICIPATED BARRIERS TO DISCHARGE:: None identified TRANSPORTATION:: Family PLAN:: Teressa will return home and resume her previous activities. No services indicated at this time. Maurice will transport by car when medically cleared for discharge.
[2018-09-23 15:18] VITALS: BP 110/65; PULSE 74; RESP 18; TEMP 36.4; O2SAT 96
[2018-09-23] MEDS: Enoxaparin 40 MG/0.4 ML SYR SC (16:31)
[2018-09-23 19:06] LABS: Anion Gap 8.4 mmol/L (3-11); BUN 17 mg/dL (7-18); CO2 23.6 mmol/L (21.0-32.0); CREATININE 1.63 mg/dL (0.55-1.02); Calcium 7.9 mg/dL (8.5-10.1); Chloride 105 mmol/L (98-107); Estimated GFR 31.76 (mL/min/1.73m2); Glucose 114 mg/dL (70-100); Potassium 4.1 mmol/L (3.5-5.1); Sodium 137 mmol/L (136-145)
[2018-09-23] MEDS: Normal Saline 1,000 ML 150 ML IV (23:36)
[2018-09-23 23:56] VITALS: BP 145/74; PULSE 79; RESP 16; TEMP 36.3; O2SAT 97
[2018-09-24] VITALS (12 sets, daily range): BP systolic 112–150; BP diastolic 56–84; PULSE 74–88; RESP 18–25; TEMP 35.7–38; O2SAT 86–97
[2018-09-24] MEDS: ACETAMINOPHEN 1,000 MG/100 ML BTL 400 MG IVPB ×3 (05:28→23:29)
[2018-09-24] MEDS: HYDROmorphone 2 MG/ML VIAL 0.5 MG IVP (05:44)
[2018-09-24] MEDS: Normal Saline 1,000 ML 150 ML IV (06:22)
[2018-09-24 07:30] LABS: Abs Immature Grans 0.08 k/cumm (0.0-0.09); Absolute Eosinophil Count 0.02 k/cumm (0.0-0.7); Eosinophils % 0.1; HCT 37.8 % (36.0-46.0); HGB 12.2 g/dL (12.0-15.5); Immature Grans % 0.4; Mean Corp. HGB Concentration 32.3 g/dL (32.0-36.0); Mean Corpuscular Hemoglobin 27.9 pg (27.0-33.0); Mean Corpuscular Volume 86.3 fL (80-95); Mean Platelet Volume 11.2 fL (8.0-11.0); Monocytes % 3.6; Neutrophils % 90.9; Platelet Count 263 x1000/uL (130-400); RBC 4.38 m/cumm (4.00-5.20); RBC Distribution Width 13.4 % (11.7-14.6); White Blood Cell Count 21.37 k/cumm (4.4-10.8)
[2018-09-24 07:35] LABS: Absolute Lymphocyte Count 1.07 k/cumm (1.2-3.4); Absolute Monocyte Count 0.77 k/cumm (0.11-0.7); Absolute Neutrophil Count 19.43 k/cumm (1.2-6.7)
[2018-09-24 07:39] LABS: Anion Gap 10.9 mmol/L (3-11); BUN 17 mg/dL (7-18); CO2 21.1 mmol/L (21.0-32.0); Calcium 7.8 mg/dL (8.5-10.1); Chloride 108 mmol/L (98-107); Estimated GFR 32.45 (mL/min/1.73m2); Glucose 89 mg/dL (70-100); Magnesium 2.6 mg/dL (1.8-2.4); Sodium 140 mmol/L (136-145)
--- NOTE | 2018-09-24 07:56 | UCONE_ITS ---
Date of service: 09/24/18 Time of Service: 08:05 Assessment and Plan (1) Hydronephrosis, left: Current visit: Yes Status: Acute We will proceed to the operating room with cystoscopy, left retrograde pyelogram and insert a left ureteral stent. This should protect her kidney and hopefully relieve her symptoms. At some point, we will need to take her back to the operating room remove her stent and perhaps run a flexible ureteroscope up to the kidney. History of Present Illness Chief Complaint: Left hydronephrosis Narrative: This is a 63-year-old woman who presented to the emergency room on Monday with left-sided flank pain. She had a CT scan which showed left hydronephrosis but no obvious stone. At the time of her presentation, she had an elevated glucose level. I suspected that she may have a sloughed renal papilla. Since her admission, she has had persistent pain and nausea. Her white blood count has been increasing. She has not had any fever or chills. She has had persistent hydronephrosis on her ultrasound and no left ureteral jet is seen. [facility] Medical History Sagastume esophagus CAD (coronary artery disease) Cardiac murmur DM (diabetes mellitus) Fibromyalgia GERD (gastroesophageal reflux disease) Hiatal hernia Hyperlipidemia (Acute) Hypothyroidism Sarcoidosis Surgical History egd/colo (10/20/15) Social History Smoking/Tobacco Use Status: Never Drug use: Never Do you feel safe at home: Yes Do you feel safe in your relationship?: Yes Exam Narrative Exam Narrative: She appears uncomfortable. She does not appear septic or toxic. Her vital signs are documented elsewhere. She is awake and alert. Results Last Vital Signs Temp 36.3 C L 09/23/18 23:56 Pulse 79 09/23/18 23:56 Resp 16 09/23/18 23:56 BP 145/74 H 09/23/18 23:56 Pulse Ox 97 09/23/18 23:56 Labs : 09/24/18 07:15 09/24/18 07:15 Laboratory Results - last 24 hr 0809/23/18 09/23/18 10:23 13:22 18:50 WBC RBC Hgb Hct MCV MCH MCHC RDW Plt Count MPV Immature Gran % Neutrophils % Lymphocytes % Monocytes % Eosinophils % Basophils % Absolute Neutrophils Absolute Lymphocytes Absolute Monocytes Absolute Eosinophils Absolute Basophils Sodium 139 137 Potassium 3.8 4.1 Chloride 107 105 Carbon Dioxide 23.7 23.6 Anion Gap 8.3 8.4 BUN 18 17 Creatinine 1.71 H 1.63 H Estimated GFR/1.73 m2 30.05 31.76 Glucose 111 H D 114 H Calcium 8.0 L 7.9 L Magnesium Urine Color Yellow Urine Clarity Clear Urine pH 5.5 Ur Specific [place] <= 1.005 Urine Protein Negative Urine Ketones Negative Urine Blood Small H Urine Nitrite Negative Urine Bilirubin Negative Urine Urobilinogen 0.2 Ur Leukocyte Esterase Trace H Urine RBC 10-20 H Urine WBC 20-50 Ur Epithelial Cells Moderate Urine Crystals Negative Urine Bacteria Moderate Urine Casts Negative Urine Mucus Trace Urine Other Few transitional Ur Culture Indicated? No/sq. contamination Urine Glucose 100 09/24/18 09/24/18 07:15 07:15 WBC 21.37 H RBC 4.38 Hgb 12.2 Hct 37.8 MCV 86.3 MCH 27.9 MCHC 32.3 RDW 13.4 Plt Count 263 MPV 11.2 H Immature Gran % 0.4 Neutrophils % 90.9 Lymphocytes % 5.0 Monocytes % 3.6 Eosinophils % 0.1 Basophils % 0.0 Absolute Neutrophils 19.43 H Absolute Lymphocytes 1.07 L Absolute Monocytes 0.77 H Absolute Eosinophils 0.02 Absolute Basophils 0.00 Sodium 140 Potassium 4.0 Chloride 108 H Carbon Dioxide 21.1 Anion Gap 10.9 BUN 17 Creatinine 1.60 H Estimated GFR/1.73 m2 32.45 Glucose 89 Calcium 7.8 L Magnesium 2.6 H Urine Color Urine Clarity Urine pH Ur Specific [place] Urine Protein Urine Ketones Urine Blood Urine Nitrite Urine Bilirubin Urine Urobilinogen Ur Leukocyte Esterase Urine RBC Urine WBC Ur Epithelial Cells Urine Crystals Urine Bacteria Urine Casts Urine Mucus Urine Other Ur Culture Indicated? Urine Glucose
[2018-09-24] MEDS: Metoprolol CR 25 MG TABCR 50 MG PO (08:07)
[2018-09-24] MEDS: DEXTROSE 5%-0.45% SALINE 1,000 ML 125 ML IV (09:17)
--- NOTE | 2018-09-24 09:24 | DI.RAD_ITS ---
SYMPTOM/DIAGNOSIS: LEFT KIDNEY STONE C-ARM FLUOROSCOPY 09/24 Fluoroscopy Time: 23.8s C-arm fluoroscopy was utilized by Dr. Phelps during cystoscopy. Please see Dr. Phelps's procedure note. Hard copy shows left ureteral stent in position.
[2018-09-24] MEDS: Albuterol 2.5 MG/3 ML INH SOLN VIAL (10:05)
[2018-09-24] MEDS: Omnipaque 300 MG/ML 50 ML BTL (10:20)
[2018-09-24] MEDS: Lidocaine 2% Jelly 6 ML SYR (10:20)
--- NOTE | 2018-09-24 11:03 | PDOC.CMPRO ---
Care Management Progress Note S/O-Met with Samantha and her and daughter. She went to OR this AM for procedure. States she hopes it took care of things. No change to overall plan. A-63 yo woman admitted with hydronephrosis. P-d/c home as per MD, no services anticipated. will transport.
[2018-09-24] MEDS: Atorvastatin 40 MG TAB 80 MG PO (11:20)
[2018-09-24] MEDS: Isosorbide Mononitrate 30 MG TABCR 60 MG PO (11:20)
--- NOTE | 2018-09-24 11:36 | NUR.NOTE ---
Nursing Note: Pt up from the PACU. Received report from UTILIZATION MANAGEMENT MANAGER. Pt in stable condition, vitals stable. On 1L O2, sats stable. Glucose 82. Ambulated to restroom upon arrival to room. Reports no pain. Slight dizziness w/ standing. Resting in bed comfortably.
[2018-09-24] MEDS: Ondansetron 4 MG/2 ML VIAL IVP ×2 (12:15→20:47)
--- NOTE | 2018-09-24 12:33 | ROE_ITS ---
REPORT OF OPERATIVE PROCEDURE DATE OF PROCEDURE September 24, 2018 PREOPERATIVE DIAGNOSIS Left hydronephrosis. POSTOPERATIVE DIAGNOSIS Left hydronephrosis. PROCEDURES Cystoscopy, left retrograde pyelogram, insert left ureteral stent. SURGEON Raman Phelps M.D. ANESTHESIA MAC with local. COMPLICATIONS None. HISTORY This is a 63-year-old woman who presented to the Emergency Room with left flank pain. She underwent a CT scan, which showed left hydronephrosis, but no obvious stone. She was a diabetic under poor contr ol, so I felt that the might have a sloughed renal papillae causing obstruction. Her renal function and white count have increased in spite of conservative management. She presents now for stent placement. DESCRIPTION OF PROCEDURE The patient was brought to the Operating Room on 09/24/2018. After successful induction of Monitored Anesthesia Care, she was placed in the dorsal lithotomy position. Her genitalia was prepped and drap ed. 2% Xylocaine jelly was instilled into the urethra to act as a local anesthetic. Initial attempts at passing a #22-Swedish rigid cystoscope were not successful, so we dilated the uret hra to #24-Swedish using metal sounds. The scope was then passed easily. We were able to inspect the left ureteral orifice and cannulate it with a #6-Swedish access catheter. A retrograde film was obtained by injecting Omnipaque through the access catheter under fluoroscopic guidance. The upper ureter appeared dilated. We then passed a Glidewire through the access catheter and positio kathy the tip of the wire in the renal pelvis. A #7-Swedish variable length stent was then advanced over the guidewire. The proximal end of the stent was curled in the renal pelvis and the distal end was curled in the bladder. Re-inspection of the bladder showed murky fluid draining from the left ureteral orifice. The patient tolerated this procedure well. There were no complications. CC: Haylee Baptiste M.D.
--- NOTE | 2018-09-24 13:34 | CHAPLAIN ---
Nallely was in bed when I visited. Her was with her. She said she is feeling better than she did when she arrived on Monday. Nallely is a member of the [employer] in [place], and gave me permission to contact her township clerk, Rev. Barnett. I left a message for him.
--- NOTE | 2018-09-24 14:08 | DI.RAD_ITS ---
SYMPTOM/DIAGNOSIS: COUGH, HYPOXIA, RALES LT BASE PA AND LATERAL CHEST: Recent CT examination of 09/22 showed clear lung bases. On today's radiographs, there are small bilateral pleural effusions and there are diffuse bilateral pulmonary interstitial infiltrates. The findings are suggestive of interval development of CHF, possibly due to fluid overload. CONCLUSION: Findings consistent with interval development of acute CHF. Other etiologies including infectious process, ARDS, etc, not excluded.
[2018-09-24] MEDS: cefTRIAXone 1 GM/50 ML BAG IVPB (14:28)
[2018-09-24] MEDS: Enoxaparin 40 MG/0.4 ML SYR SC (15:23)
--- NOTE | 2018-09-24 15:31 | W.PM.PROGNOT ---
Documented by User: Caron Paulino NP 09/24/18 16:30 Date of Service Date of service: 09/24/18 Time of Service: 15:32 Assessment and Plan (1) JAY (acute kidney injury): Current visit: Yes Status: Acute Creatinine remains elevated prior to stent placement. She has been on IV fluids. She appears fluid overloaded by exam and Chest X-ray, discontinue IV fluids. Repeat UA yesterday with leukocyte esterase, currently on day #2 of Ceftriaxone. Continue IV Ceftriaxone. Give lasix for fluid overload. Continue to hold nephrotoxic medications. Repeat BMP in the morning. (2) Hydronephrosis, left: Current visit: Yes Status: Acute Noted on CT at time of admission. She is status post cystoscopy, left retrograde pyelogram with insertion left ureteral stent by Dr. Phelps. Her pain has resolved. Urology continues to follow along. She will need to follow up with Urology in the clinic in 1-2 weeks. (3) Hypoxia: Current visit: No Status: Acute New hypoxia and cough in the setting of IV fluids. Rales to left base on exam. History of CAD, no echo on the chart. Chest x-ray reveals findings consistent with interval development of acute CHF. Give Lasix 20 mg IV, repeat BMP in the morning. Maintain strict intake and output and daily weights. (4) DM (diabetes mellitus): Current visit: No Status: None She was hyperglycemic on admission. Her blood glucose has improved. She remains on decreased januvia dose. Continue to monitor blood glucose before meals, short-acting insulin per sliding scale. Adjust diabetic regimen as indicated. (5) HTN (hypertension): Current visit: Yes Status: Chronic Blood pressure has been within an acceptable range. Continue Metoprolol and isosorbide. Hold losartan in the setting of acute kidney injury. Continue to monitor blood pressure. (6) Hyperlipidemia: Current visit: Yes Status: Acute Continue atorvastatin. (7) GERD (gastroesophageal reflux disease): Current visit: No Status: None Continue omeprazole. (8) Fibromyalgia: Current visit: No Status: None Continue Tramadol per home dose and IV APAP for pain. (9) CAD (coronary artery disease): Current visit: No Status: None Plavix on hold for urologic procedure. Continue BB, statin, isosorbide, PRN nitro per usual regimen. (10) DVT prophylaxis: Current visit: Yes Status: Acute Hold lovenox for today in the setting of urologic procedure. Subjective Interval history since last seen: Nallely Velazquez is seen status post urological procedure, Dr. Phelps placed a left ureteral stent. She reports that her pain has completely resolved. She continues to have nausea, no abdominal pain or vomiting. She was able to eat a small amount of food for lunch. She has been up to the bathroom and had blood in her urine with no dysuria. She has a new cough with hypoxia. She denies shortness of breath or wheezing, chest pain/pressure, palpitations. Exam Narrative Exam Narrative: General: middle aged female, laying on her left side in bed, covered with blankets, in NAD. Answers questions appropriately. Daughter and significant other present. HEENT: normocephalic, atraumatic, pupils equal and round, EOMI, mucous membranes moist. Neck: supple. Respiratory: respirations appear even and unlabored, oxygen via nasal cannula, cough noted. Rales to left base, few scattered wheezes bilaterally. Cardiovascular: heart has regular rate and rhythm, no murmur appreciated. Extremities: no clubbing, cyanosis or edema. Pedal pulses palpable bilaterally. Objective Objective Clinical Data: Abnormal lab results 09/23/18 09/24/18 09/24/18 Range/Units 18:50 07:15 07:15 WBC 21.37 H (4.4-10.8) k/cumm MPV 11.2 H (8.0-11.0) fL Absolute Neutrophils 19.43 H (1.2-6.7) k/cumm Absolute Lymphocytes 1.07 L (1.2-3.4) k/cumm Absolute Monocytes 0.77 H (0.11-0.7) k/cumm Chloride 108 H (98-107) mmol/L Creatinine 1.63 H 1.60 H (0.55-1.02) mg/dL Glucose 114 H (70-100) mg/dL Calcium 7.9 L 7.8 L (8.5-10.1) mg/dL Magnesium 2.6 H (1.8-2.4) mg/dL Vital Signs Temperature 36.1 C L 09/24/18 15:12 Temperature Source Tympanic 09/24/18 15:12 Pulse 86 09/24/18 15:12 Pulse Rhythm Regular 09/24/18 07:45 Pulse 92 H 09/22/18 15:10 Respiratory Rate 18 09/24/18 15:12 Respiratory Effort Non-Labored 09/24/18 07:45 Respiratory Depth Normal 09/24/18 07:45 Respiratory Pattern Normal 09/24/18 07:45 Blood Pressure 146/76 H 09/24/18 15:12 Blood Pressure Mean 91 09/22/18 15:01 Pulse Oximetry 90 L 09/24/18 15:12 Respiratory End-tidal CO2 29 09/24/18 11:00 Oxygen Delivery Method Nasal Cannula 09/24/18 15:12 Oxygen Flow Rate 1 09/24/18 15:12 Pain Level 0 09/24/18 11:50 Comment 09/24/18 08:13 Intake & Output 09/23/18 09/24/18 09/24/18 23:59 11:59 23:59 Intake Total 1770.000 / 4676.666 1736.0 / 2423.5 687.5 / 2423.5 Output Total 1000 / 1600 600 / 650 50 / 650 Balance 770.000 / 3076.666 1136.0 / 1773.5 637.5 / 1773.5 Intake: IV 1430.000 / 3686.666 1736.0 / 2423.5 687.5 / 2423.5 Oral 340 / 990 Output: Urine 800 / 1400 600 / 600 Emesis 200 / 200 50 / 50 Other: Urine Color Yellow Straw Urine Appearance Clear Clear Urine Odor None None Emesis Description None None Voiding Methods Toilet Toilet Laboratory Results WBC 21.37 k/cumm (4.4-10.8) H 09/24/18 07:15 RBC 4.38 m/cumm (4.00-5.20) 09/24/18 07:15 Hgb 12.2 g/dL (12.0-15.5) 09/24/18 07:15 Hct 37.8 % (36.0-46.0) 09/24/18 07:15 MCV 86.3 fL (80-95) 09/24/18 07:15 MCH 27.9 pg (27.0-33.0) 09/24/18 07:15 MCHC 32.3 g/dL (32.0-36.0) 09/24/18 07:15 RDW 13.4 % (11.7-14.6) 09/24/18 07:15 Plt Count 263 x1000/uL (130-400) 09/24/18 07:15 MPV 11.2 fL (8.0-11.0) H 09/24/18 07:15 Immature Gran % 0.4 09/24/18 07:15 90.9 09/24/18 07:15 5.0 09/24/18 07:15 3.6 09/24/18 07:15 0.1 09/24/18 07:15 0.0 09/24/18 07:15 Absolute Neutrophils 19.43 k/cumm (1.2-6.7) H 09/24/18 07:15 Absolute Lymphocytes 1.07 k/cumm (1.2-3.4) L 09/24/18 07:15 Absolute Monocytes 0.77 k/cumm (0.11-0.7) H 09/24/18 07:15 Absolute Eosinophils 0.02 k/cumm (0.0-0.7) 09/24/18 07:15 Absolute Basophils 0.00 k/cumm (0.0-0.2) 09/24/18 07:15 Sodium 140 mmol/L (136-145) 09/24/18 07:15 Potassium 4.0 mmol/L (3.5-5.1) 09/24/18 07:15 Chloride 108 mmol/L (98-107) H 09/24/18 07:15 Carbon Dioxide 21.1 mmol/L (21.0-32.0) 09/24/18 07:15 10.9 mmol/L (3-11) 09/24/18 07:15 BUN 17 mg/dL (7-18) 09/24/18 07:15 1.60 mg/dL (0.55-1.02) H 09/24/18 07:15 32.45 (mL/min/1.73m2) 09/24/18 07:15 Glucose 89 mg/dL (70-100) 09/24/18 07:15 Calcium 7.8 mg/dL (8.5-10.1) L 09/24/18 07:15 Magnesium 2.6 mg/dL (1.8-2.4) H 09/24/18 07:15 0.4 mg/dL (0.2-1.0) 09/22/18 11:30 AST 15 U/L (15-37) 09/22/18 11:30 ALT 32 U/L (12-78) 09/22/18 11:30 188 U/L (46-116) H 09/22/18 11:30 7.7 g/dL (6.4-8.2) 09/22/18 11:30 3.6 g/dL (3.4-5.0) 09/22/18 11:30 168 U/L (73-393) 09/22/18 11:30 Yellow (Yellow) 09/23/18 10:23 Clear (Clear) 09/23/18 10:23 5.5 (5-8) 09/23/18 10:23 Ur Specific [place] <= 1.005 (1.005-1.025) 09/23/18 10:23 Negative mg/dL (Negative) 09/23/18 10:23 Negative mg/dL (Negative) 09/23/18 10:23 Small (Negative) H 09/23/18 10:23 Negative (Negative) 09/23/18 10:23 Negative (Negative) 09/23/18 10:23 0.2 EU/dL (Up TO 0.2) 09/23/18 10:23 Ur Leukocyte Esterase Trace (Negative) H 09/23/18 10:23 10-20 (0-2) H 09/23/18 10:23 20-50 HPF (0-5) 09/23/18 10:23 Ur Epithelial Cells Moderate HPF (Negative) 09/23/18 10:23 Negative HPF (Negative) 09/23/18 10:23 Moderate HPF (Negative) 09/23/18 10:23 Negative LPF (Negative) 09/23/18 10:23 Trace (Negative) 09/23/18 10:23 Few transitional (Negative) 09/23/18 10:23 Ur Culture Indicated? No/sq. contamination 09/23/18 10:23 100 mg/dL (Negative) 09/23/18 10:23 Documented by User: Kevin Zhang MD 09/27/18 14:29
[2018-09-24] MEDS: Furosemide 20 MG/2 ML VIAL IVP (16:24)
[2018-09-24] MEDS: Normal Saline Flush 10 ML SYR IVP ×4 (16:25→21:58)
[2018-09-24] MEDS: Insulin Aspart 300 UNITS/3 ML PEN SC (16:25)
[2018-09-24] MEDS: Omeprazole 20 MG CAPCR PO (20:32)
[2018-09-25] VITALS (8 sets, daily range): BP systolic 127–171; BP diastolic 71–84; PULSE 77–82; RESP 18–20; TEMP 36.4–37.2; O2SAT 91–98
[2018-09-25] MEDS: Benzonatate 100 MG CAP PO (06:32)
[2018-09-25] MEDS: ACETAMINOPHEN 1,000 MG/100 ML BTL 400 MG IVPB ×3 (06:36→23:23)
[2018-09-25 07:26] LABS: Abs Immature Grans 0.07 k/cumm (0.0-0.09); Absolute Basophil Count 0.02 k/cumm (0.0-0.2); Absolute Eosinophil Count 0.24 k/cumm (0.0-0.7); Absolute Monocyte Count 1.06 k/cumm (0.11-0.7); Basophils % 0.1; Eosinophils % 1.4; HCT 35.7 % (36.0-46.0); HGB 11.7 g/dL (12.0-15.5); Immature Grans % 0.4; Lymphocytes % 15.3; Mean Corp. HGB Concentration 32.8 g/dL (32.0-36.0); Mean Corpuscular Volume 85.4 fL (80-95); Mean Platelet Volume 11.4 fL (8.0-11.0); Monocytes % 6.2; Neutrophils % 76.6; Platelet Count 295 x1000/uL (130-400); RBC 4.18 m/cumm (4.00-5.20); RBC Distribution Width 13.3 % (11.7-14.6); White Blood Cell Count 17.17 k/cumm (4.4-10.8)
--- NOTE | 2018-09-25 07:26 | W.PM.PROGNOT ---
Date of Service Date of service: 09/25/18 Time of Service: 07:26 Assessment and Plan (1) Hydronephrosis, left: Current visit: Yes Status: Acute Her morning labs are still pending. We will plan on leaving this stent in place for a minimum of 1 to 2 weeks. We will then plan on an outpatient procedure to do a cystoscopy, remove her stent and run a flexible ureteroscope up the left ureter to get a better idea of what may have caused her hydronephrosis. I was unable to get a good luck yesterday because of the cloudiness of the urine that was present once the kidney was unblocked. Subjective Interval history since last seen: Her flank pain has improved since her stent was placed. She still has some nausea. Her urine is dark with no clots. Her urine output has increased. Exam Narrative Exam Narrative: She still appears mildly uncomfortable, but does not appear septic or toxic. Her vital signs are documented elsewhere. Her abdomen is soft with no mass. She is awake and alert. Objective Objective Clinical Data: Abnormal lab results 09/24/18 09/24/18 Range/Units 07:15 07:15 WBC 21.37 H (4.4-10.8) k/cumm MPV 11.2 H (8.0-11.0) fL Absolute Neutrophils 19.43 H (1.2-6.7) k/cumm Absolute Lymphocytes 1.07 L (1.2-3.4) k/cumm Absolute Monocytes 0.77 H (0.11-0.7) k/cumm Chloride 108 H (98-107) mmol/L Creatinine 1.60 H (0.55-1.02) mg/dL Calcium 7.8 L (8.5-10.1) mg/dL Magnesium 2.6 H (1.8-2.4) mg/dL Vital Signs Temperature 36.8 C 09/25/18 03:37 Temperature Source Tympanic 09/25/18 03:37 Pulse 77 09/25/18 03:37 Pulse Rhythm Regular 09/24/18 19:41 Pulse 92 H 09/22/18 15:10 Respiratory Rate 18 09/25/18 03:37 Respiratory Effort 09/24/18 19:41 Respiratory Depth Normal 09/24/18 19:41 Respiratory Pattern Normal 09/24/18 19:41 Blood Pressure 149/84 H 09/25/18 03:37 Blood Pressure Mean 91 09/22/18 15:01 Pulse Oximetry 96 09/25/18 03:37 Respiratory End-tidal CO2 29 09/24/18 11:00 Oxygen Delivery Method Nasal Cannula 09/25/18 03:37 Oxygen Flow Rate 1 09/25/18 03:37 Pain Level 0 09/25/18 03:37 Comment 09/24/18 08:13 Intake & Output 09/24/18 09/24/18 09/25/18 11:59 23:59 11:59 Intake Total 1736.0 / 3285.5 1449.5 / 3285.5 350 / 350 Output Total 600 / 3000 2400 / 3000 900 / 900 Balance 1136.0 / 285.5 -950.5 / 285.5 -550 / -550 Weight 87.1 kg Intake: IV 1736.0 / 2573.5 737.5 / 2573.5 100 / 100 Oral 712 / 712 250 / 250 Output: Urine 600 / 2950 2350 / 2950 900 / 900 Emesis 50 / 50 Other: Urine Color Straw Yellow Dark Lety Urine Appearance Clear Cloudy Clear Urine Odor None Normal Normal Emesis Description None Retching Clear/Water Voiding Methods Toilet Toilet Toilet Laboratory Results WBC 21.37 k/cumm (4.4-10.8) H 09/24/18 07:15 RBC 4.38 m/cumm (4.00-5.20) 09/24/18 07:15 Hgb 12.2 g/dL (12.0-15.5) 09/24/18 07:15 Hct 37.8 % (36.0-46.0) 09/24/18 07:15 MCV 86.3 fL (80-95) 09/24/18 07:15 MCH 27.9 pg (27.0-33.0) 09/24/18 07:15 MCHC 32.3 g/dL (32.0-36.0) 09/24/18 07:15 RDW 13.4 % (11.7-14.6) 09/24/18 07:15 Plt Count 263 x1000/uL (130-400) 09/24/18 07:15 MPV 11.2 fL (8.0-11.0) H 09/24/18 07:15 Immature Gran % 0.4 09/24/18 07:15 90.9 09/24/18 07:15 5.0 09/24/18 07:15 3.6 09/24/18 07:15 0.1 09/24/18 07:15 0.0 09/24/18 07:15 Absolute Neutrophils 19.43 k/cumm (1.2-6.7) H 09/24/18 07:15 Absolute Lymphocytes 1.07 k/cumm (1.2-3.4) L 09/24/18 07:15 Absolute Monocytes 0.77 k/cumm (0.11-0.7) H 09/24/18 07:15 Absolute Eosinophils 0.02 k/cumm (0.0-0.7) 09/24/18 07:15 Absolute Basophils 0.00 k/cumm (0.0-0.2) 09/24/18 07:15 Sodium 140 mmol/L (136-145) 09/24/18 07:15 Potassium 4.0 mmol/L (3.5-5.1) 09/24/18 07:15 Chloride 108 mmol/L (98-107) H 09/24/18 07:15 Carbon Dioxide 21.1 mmol/L (21.0-32.0) 09/24/18 07:15 10.9 mmol/L (3-11) 09/24/18 07:15 BUN 17 mg/dL (7-18) 09/24/18 07:15 1.60 mg/dL (0.55-1.02) H 09/24/18 07:15 32.45 (mL/min/1.73m2) 09/24/18 07:15 Glucose 89 mg/dL (70-100) 09/24/18 07:15 Calcium 7.8 mg/dL (8.5-10.1) L 09/24/18 07:15 Magnesium 2.6 mg/dL (1.8-2.4) H 09/24/18 07:15 0.4 mg/dL (0.2-1.0) 09/22/18 11:30 AST 15 U/L (15-37) 09/22/18 11:30 ALT 32 U/L (12-78) 09/22/18 11:30 188 U/L (46-116) H 09/22/18 11:30 7.7 g/dL (6.4-8.2) 09/22/18 11:30 3.6 g/dL (3.4-5.0) 09/22/18 11:30 168 U/L (73-393) 09/22/18 11:30 Yellow (Yellow) 09/23/18 10:23 Clear (Clear) 09/23/18 10:23 5.5 (5-8) 09/23/18 10:23 Ur Specific [place] <= 1.005 (1.005-1.025) 09/23/18 10:23 Negative mg/dL (Negative) 09/23/18 10:23 Negative mg/dL (Negative) 09/23/18 10:23 Small (Negative) H 09/23/18 10:23 Negative (Negative) 09/23/18 10:23 Negative (Negative) 09/23/18 10:23 0.2 EU/dL (Up TO 0.2) 09/23/18 10:23 Ur Leukocyte Esterase Trace (Negative) H 09/23/18 10:23 10-20 (0-2) H 09/23/18 10:23 20-50 HPF (0-5) 09/23/18 10:23 Ur Epithelial Cells Moderate HPF (Negative) 09/23/18 10:23 Negative HPF (Negative) 09/23/18 10:23 Moderate HPF (Negative) 09/23/18 10:23 Negative LPF (Negative) 09/23/18 10:23 Trace (Negative) 09/23/18 10:23 Few transitional (Negative) 09/23/18 10:23 Ur Culture Indicated? No/sq. contamination 09/23/18 10:23 100 mg/dL (Negative) 09/23/18 10:23
[2018-09-25 07:29] LABS: Absolute Lymphocyte Count 2.63 k/cumm (1.2-3.4); Absolute Neutrophil Count 13.15 k/cumm (1.2-6.7)
[2018-09-25 07:45] LABS: Anion Gap 9.5 mmol/L (3-11); BUN 22 mg/dL (7-18); CO2 22.5 mmol/L (21.0-32.0); CREATININE 1.43 mg/dL (0.55-1.02); Calcium 8.1 mg/dL (8.5-10.1); Chloride 109 mmol/L (98-107); Estimated GFR 36.94 (mL/min/1.73m2); Glucose 79 mg/dL (70-100); Magnesium 2.1 mg/dL (1.8-2.4); Potassium 3.6 mmol/L (3.5-5.1); Sodium 141 mmol/L (136-145)
[2018-09-25] MEDS: Isosorbide Mononitrate 30 MG TABCR 60 MG PO (07:57)
[2018-09-25] MEDS: Atorvastatin 40 MG TAB 80 MG PO (07:57)
[2018-09-25] MEDS: Metoprolol CR 25 MG TABCR 50 MG PO (07:57)
[2018-09-25] MEDS: glipiZIDE 10 MG TAB PO (07:57)
[2018-09-25] MEDS: Furosemide 20 MG/2 ML VIAL IVP (09:18)
[2018-09-25] MEDS: Normal Saline Flush 10 ML SYR IVP ×5 (09:18→21:33)
[2018-09-25 10:34] LABS: Bilirubin Negative (Negative); Blood Large (Negative); Clarity Sl Cloudy (Clear); Glucose Negative (Negative); Ketones Negative (Negative); Leukocyte Esterase Small (Negative); Nitrite Negative (Negative); Urobilinogen 0.2 EU/dL (Up TO 0.2); pH 5.5 (5-8)
[2018-09-25 10:41] LABS: Bacteria Few HPF (Negative); C & S Indicated? Yes; Casts Negative LPF (Negative); Crystals Negative HPF (Negative); Epithelial Cells Few HPF (Negative); Mucus Trace (Negative); RBC 20-50 (0-2)
[2018-09-25] MEDS: Potassium Chloride 20 MEQ TABCR 40 MEQ PO (11:25)
[2018-09-25] MEDS: Insulin Aspart 300 UNITS/3 ML PEN SC (11:48)
--- NOTE | 2018-09-25 13:11 | CHAPLAIN ---
Nallely said she hopes to be discharged today. 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 She said being here four days is long enough, and acknowledged that nurses aren't always good patients. Nallely is a member of the [employer] and yesterday gave me permission to contact her fabric normalizer, Rev. Barnett. He wasn't in yesterday, but I left a message for him.
[2018-09-25] MEDS: cefTRIAXone 1 GM/50 ML BAG IVPB (13:19)
--- NOTE | 2018-09-25 14:29 | W.PM.PROGNOT ---
Documented by User: Caron Paulino NP 09/25/18 14:53 Date of Service Date of service: 09/25/18 Time of Service: 14:29 Assessment and Plan (1) JAY (acute kidney injury): Current visit: Yes Status: Acute In the setting of obstruction and hydronephrosis- now with stent placed by urology. Creatinine remains elevated, but is improved from yesterday, down to 1.43. UA showed leukocyte esterase prior to procedure. UA repeated today, culture pending. WBC remains elevated but improving. She was febrile to 38 last night. Currently on day #3 of Ceftriaxone. Continue IV Ceftriaxone. Continue to hold nephrotoxic medications. Repeat BMP in the morning. Monitor cultures. (2) Hydronephrosis, left: Current visit: Yes Status: Acute Noted on CT at time of admission. She is status post cystoscopy, left retrograde pyelogram with insertion left ureteral stent by Dr. Phelps yesterday 09/24/18). Her pain has resolved. Urology continues to follow along. She will need to follow up with Urology in the clinic in 1-2 weeks. (3) Hypoxia: Current visit: No Status: Acute Chest x-ray yesterday revealed findings consistent with interval development of acute CHF. She received IV lasix with significant urinary output. She is no longer hypoxic or short of breath, cough is improving. Continue to maintain strict intake and output and daily weights. Repeat BMP in the morning. (4) DM (diabetes mellitus): Current visit: No Status: None She was hyperglycemic on admission. Her blood glucose has improved. She remains on decreased januvia dose. Continue to monitor blood glucose before meals, short-acting insulin per sliding scale. Adjust diabetic regimen as indicated. (5) HTN (hypertension): Current visit: Yes Status: Chronic Blood pressure has been within an acceptable range. Continue Metoprolol and isosorbide. Hold losartan in the setting of acute kidney injury. Continue to monitor blood pressure. (6) Hyperlipidemia: Current visit: Yes Status: Acute Continue atorvastatin. (7) GERD (gastroesophageal reflux disease): Current visit: No Status: None Continue omeprazole. (8) Fibromyalgia: Current visit: No Status: None Continue Tramadol per home dose and IV APAP for pain. (9) CAD (coronary artery disease): Current visit: No Status: None Resume Plavix. Continue BB, statin, isosorbide, PRN nitro per usual regimen. (10) DVT prophylaxis: Current visit: Yes Status: Acute Resume lovenox for DVT prophylaxis. This case was discussed with Dr. Zhang who is in agreement. Subjective Interval history since last seen: Nallely Velazquez is sitting up in the chair. She reports feeling better. Her pain has resolved. She is no longer nauseated, she is tolerating a regular diet. She is no longer short of breath. She is only occasionally coughing, the cough is nonproductive, no wheezing. She denies chest pain/pressure or palpitations. She denies dysuria, she continues to have blood in her urine, less today than yesterday. Exam Narrative Exam Narrative: General: middle aged female, sitting up in the chair, in NAD. Answers questions appropriately. Speech is clear. HEENT: normocephalic, atraumatic, pupils equal and round, EOMI, mucous membranes moist. Neck: supple. Respiratory: respirations appear even and unlabored, not on oxygen, no cough noted. Rales to left base, no wheezing. Cardiovascular: heart has regular rate and rhythm, no murmur appreciated. GI: normoactive bowel sounds throughout, abdomen soft, nontender on palpaiton, nondistended, no CVA tenderness. Extremities: no clubbing, cyanosis or edema. Pedal pulses palpable bilaterally. Objective Objective Clinical Data: Abnormal lab results 09/25/18 09/25/18 09/25/18 Range/Units 06:53 06:53 10:13 WBC 17.17 H (4.4-10.8) k/cumm Hgb 11.7 L (12.0-15.5) g/dL Hct 35.7 L (36.0-46.0) % MPV 11.4 H (8.0-11.0) fL Absolute Neutrophils 13.15 H (1.2-6.7) k/cumm Absolute Monocytes 1.06 H (0.11-0.7) k/cumm Chloride 109 H (98-107) mmol/L BUN 22 H (7-18) mg/dL Creatinine 1.43 H (0.55-1.02) mg/dL Calcium 8.1 L (8.5-10.1) mg/dL Urine Protein 30 H (Negative) mg/dL Urine Blood Large H (Negative) Ur Leukocyte Esterase Small H (Negative) Urine RBC 20-50 H (0-2) Vital Signs Temperature 36.4 C L 09/25/18 07:30 Temperature Source Tympanic 09/25/18 07:30 Pulse 79 09/25/18 07:30 Pulse Rhythm Regular 09/25/18 08:26 Pulse 92 H 09/22/18 15:10 Respiratory Rate 20 09/25/18 07:30 Respiratory Effort 09/25/18 08:26 Respiratory Depth Normal 09/25/18 08:26 Respiratory Pattern Normal 09/25/18 08:26 Blood Pressure 153/77 H 09/25/18 07:30 Blood Pressure Mean 91 09/22/18 15:01 Pulse Oximetry 97 09/25/18 11:22 Respiratory End-tidal CO2 29 09/24/18 11:00 Oxygen Delivery Method Room Air 09/25/18 11:22 Oxygen Flow Rate 0 09/25/18 11:22 Pain Level 0 09/25/18 11:24 Comment 09/24/18 08:13 Intake & Output 09/24/18 09/25/18 09/25/18 23:59 11:59 23:59 Intake Total 1449.5 / 3285.5 350 / 690 340 / 690 Output Total 2400 / 3000 1700 / 2600 900 / 2600 Balance -950.5 / 285.5 -1350 / -1910 -560 / -1910 Weight 87.1 kg 86.7 kg Intake: IV 737.5 / 2573.5 100 / 250 150 / 250 Oral 712 / 712 250 / 440 190 / 440 Output: Urine 2350 / 2950 1700 / 2600 900 / 2600 Emesis 50 / 50 Other: Urine Color Yellow Yellow Yellow Straw Urine Appearance Cloudy Clear Clear Urine Odor Normal Normal Emesis Description Retching Clear/Water Voiding Methods Toilet Toilet Toilet Laboratory Results WBC 17.17 k/cumm (4.4-10.8) H 09/25/18 06:53 RBC 4.18 m/cumm (4.00-5.20) 09/25/18 06:53 Hgb 11.7 g/dL (12.0-15.5) L 09/25/18 06:53 Hct 35.7 % (36.0-46.0) L 09/25/18 06:53 MCV 85.4 fL (80-95) 09/25/18 06:53 MCH 28.0 pg (27.0-33.0) 09/25/18 06:53 MCHC 32.8 g/dL (32.0-36.0) 09/25/18 06:53 RDW 13.3 % (11.7-14.6) 09/25/18 06:53 Plt Count 295 x1000/uL (130-400) 09/25/18 06:53 MPV 11.4 fL (8.0-11.0) H 09/25/18 06:53 Immature Gran % 0.4 09/25/18 06:53 76.6 09/25/18 06:53 15.3 09/25/18 06:53 6.2 09/25/18 06:53 1.4 09/25/18 06:53 0.1 09/25/18 06:53 Absolute Neutrophils 13.15 k/cumm (1.2-6.7) H 09/25/18 06:53 Absolute Lymphocytes 2.63 k/cumm (1.2-3.4) 09/25/18 06:53 Absolute Monocytes 1.06 k/cumm (0.11-0.7) H 09/25/18 06:53 Absolute Eosinophils 0.24 k/cumm (0.0-0.7) 09/25/18 06:53 Absolute Basophils 0.02 k/cumm (0.0-0.2) 09/25/18 06:53 Sodium 141 mmol/L (136-145) 09/25/18 06:53 Potassium 3.6 mmol/L (3.5-5.1) 09/25/18 06:53 Chloride 109 mmol/L (98-107) H 09/25/18 06:53 Carbon Dioxide 22.5 mmol/L (21.0-32.0) 09/25/18 06:53 9.5 mmol/L (3-11) 09/25/18 06:53 BUN 22 mg/dL (7-18) H 09/25/18 06:53 1.43 mg/dL (0.55-1.02) H 09/25/18 06:53 36.94 (mL/min/1.73m2) 09/25/18 06:53 Glucose 79 mg/dL (70-100) 09/25/18 06:53 Calcium 8.1 mg/dL (8.5-10.1) L 09/25/18 06:53 Magnesium 2.1 mg/dL (1.8-2.4) 09/25/18 06:53 0.4 mg/dL (0.2-1.0) 09/22/18 11:30 AST 15 U/L (15-37) 09/22/18 11:30 ALT 32 U/L (12-78) 09/22/18 11:30 188 U/L (46-116) H 09/22/18 11:30 7.7 g/dL (6.4-8.2) 09/22/18 11:30 3.6 g/dL (3.4-5.0) 09/22/18 11:30 168 U/L (73-393) 09/22/18 11:30 Yellow (Yellow) 09/25/18 10:13 Sl cloudy (Clear) 09/25/18 10:13 5.5 (5-8) 09/25/18 10:13 Ur Specific [place] 1.010 (1.005-1.025) 09/25/18 10:13 30 mg/dL (Negative) H 09/25/18 10:13 Negative mg/dL (Negative) 09/25/18 10:13 Large (Negative) H 09/25/18 10:13 Negative (Negative) 09/25/18 10:13 Negative (Negative) 09/25/18 10:13 0.2 EU/dL (Up TO 0.2) 09/25/18 10:13 Ur Leukocyte Esterase Small (Negative) H 09/25/18 10:13 20-50 (0-2) H 09/25/18 10:13 10-20 HPF (0-5) 09/25/18 10:13 Ur Epithelial Cells Few HPF (Negative) 09/25/18 10:13 Negative HPF (Negative) 09/25/18 10:13 Few HPF (Negative) 09/25/18 10:13 Negative LPF (Negative) 09/25/18 10:13 Trace (Negative) 09/25/18 10:13 Few transitional (Negative) 09/23/18 10:23 Ur Culture Indicated? Yes 09/25/18 10:13 Negative mg/dL (Negative) 09/25/18 10:13 Documented by User: Kevin Zhang MD 09/27/18 14:29
[2018-09-25] MEDS: Enoxaparin 40 MG/0.4 ML SYR SC (15:12)
[2018-09-25] MEDS: traMADol 50 MG TAB PO (15:52)
[2018-09-25] MEDS: HYDROmorphone 2 MG/ML VIAL 0.5 MG IVP ×2 (16:27→21:34)
--- NOTE | 2018-09-25 18:09 | PDOC.CMPRO ---
Care Management Progress Note S/O: Nallely was sitting up in her chair, eating lunch when CM met with her. She reviewed her hospitalization thus far and reviewed times of concerns and confidence in current treatment plan and discharge plan. She reported being quite independent at baseline and shared no concerns at this time. Shew as pleasant in interaction and fully engaged with this poem writer. CM continues to follow. A: 63 year old female admitted to [facility] 09/24/18 for JAY, kidney stone P: Nallely will return home when ready per MD. She reports being on vacation from work to attend the fair. 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 She will transport home via private vehicle with family.
[2018-09-25] MEDS: Omeprazole 20 MG CAPCR PO (20:15)
[2018-09-26] MEDS: Ondansetron 4 MG/2 ML VIAL IVP ×3 (03:00→19:14)
[2018-09-26] MEDS: Normal Saline Flush 10 ML SYR IVP ×8 (05:49→23:34)
[2018-09-26] MEDS: ACETAMINOPHEN 1,000 MG/100 ML BTL 400 MG IVPB ×3 (05:50→18:01)
[2018-09-26 06:53] LABS: Abs Immature Grans 0.04 k/cumm (0.0-0.09); Absolute Basophil Count 0.02 k/cumm (0.0-0.2); Absolute Eosinophil Count 0.36 k/cumm (0.0-0.7); Absolute Lymphocyte Count 1.92 k/cumm (1.2-3.4); Absolute Monocyte Count 0.71 k/cumm (0.11-0.7); Basophils % 0.2; Eosinophils % 3.4; HCT 35.7 % (36.0-46.0); HGB 11.5 g/dL (12.0-15.5); Immature Grans % 0.4; Lymphocytes % 18.1; Mean Corp. HGB Concentration 32.2 g/dL (32.0-36.0); Mean Corpuscular Volume 87.1 fL (80-95); Mean Platelet Volume 10.7 fL (8.0-11.0); Monocytes % 6.7; Neutrophils % 71.2; Platelet Count 313 x1000/uL (130-400); RBC Distribution Width 13.6 % (11.7-14.6); White Blood Cell Count 10.63 k/cumm (4.4-10.8)
[2018-09-26 06:57] LABS: Absolute Neutrophil Count 7.57 k/cumm (1.2-6.7)
[2018-09-26 07:08] VITALS: BP 137/74; PULSE 75; RESP 18; TEMP 36.8; O2SAT 96
[2018-09-26 07:19] LABS: Anion Gap 10.1 mmol/L (3-11); BUN 23 mg/dL (7-18); CO2 24.9 mmol/L (21.0-32.0); CREATININE 1.32 mg/dL (0.55-1.02); Chloride 106 mmol/L (98-107); Estimated GFR 40.52 (mL/min/1.73m2); Glucose 86 mg/dL (70-100); Sodium 141 mmol/L (136-145)
[2018-09-26] MEDS: Atorvastatin 40 MG TAB 80 MG PO (07:40)
[2018-09-26] MEDS: Metoprolol CR 25 MG TABCR 50 MG PO (07:40)
--- NOTE | 2018-09-26 07:40 | PGE_ITS ---
Date of Service Date of service: 09/26/18 Time of Service: 07:40 Assessment and Plan (1) Hydronephrosis, left: Current visit: Yes Status: Acute I can picture a few scenarios for the recurrance of her pain. The US should help us sort out these possibilities. She may have persistent hydronephrosis indicating incomplete kidney drainage with the stent. The stent is already the largest one I have access to locally (7 [place]), so I would not be able to upsize it here (although a larger facility may have access to larger caliber stents). A better option might be to have Interventional Radiology place a nephrostomy tube for maximal drainage of the kidney. Another possibility would be that she may have developed a perinephric fluid collection that is not drained by an intrarenal stent. I guess this is possible given the degree of perinephric edema we saw on her initial scan. Again, the treatment would be a percutaneous drainage by Interventional radiology. If the kidney looks markedly improved/decompressed, then we should consider other etiologies. Stent discomfort can occur but this presentation is a bit atypical. If suspected, she might benefit for meds to relax the ureter (alpha blockers and anticholinergics). Subjective Interval history since last seen: After being pain free yesterday, she had recurrance of her pain yesterday afternoon/evening. The pain is similar in nature to her presenting pain, but less intense (7/10 versus 10/10). The pain does not seem associated with motion or voiding. She also tells me that she feels like her urine output has decreased. I have asked for a renal US this morning, but it has not yet been accomplished. Exam Narrative Exam Narrative: She appears uncomfortable, but does not appear septic or toxic Objective Objective Clinical Data: Abnormal lab results 09/25/18 09/25/18 09/26/18 Range/Units 06:53 10:13 06:45 Hgb (12.0-15.5) g/dL Hct (36.0-46.0) % Absolute Neutrophils (1.2-6.7) k/cumm Absolute Monocytes (0.11-0.7) k/cumm Chloride 109 H (98-107) mmol/L BUN 22 H 23 H (7-18) mg/dL Creatinine 1.43 H 1.32 H (0.55-1.02) mg/dL Calcium 8.1 L 8.0 L (8.5-10.1) mg/dL Urine Protein 30 H (Negative) mg/dL Urine Blood Large H (Negative) Ur Leukocyte Esterase Small H (Negative) Urine RBC 20-50 H (0-2) 09/26/18 Range/Units 06:45 Hgb 11.5 L (12.0-15.5) g/dL Hct 35.7 L (36.0-46.0) % Absolute Neutrophils 7.57 H (1.2-6.7) k/cumm Absolute Monocytes 0.71 H (0.11-0.7) k/cumm Chloride (98-107) mmol/L BUN (7-18) mg/dL Creatinine (0.55-1.02) mg/dL Calcium (8.5-10.1) mg/dL Urine Protein (Negative) mg/dL Urine Blood (Negative) Ur Leukocyte Esterase (Negative) Urine RBC (0-2) Vital Signs Temperature 36.8 C 09/26/18 07:08 Temperature Source Tympanic 09/26/18 07:08 Pulse 75 09/26/18 07:08 Pulse Rhythm Regular 09/25/18 20:00 Pulse 92 H 09/22/18 15:10 Respiratory Rate 18 09/26/18 07:08 Respiratory Effort 09/25/18 20:00 Respiratory Depth Normal 09/25/18 20:00 Respiratory Pattern Normal 09/25/18 20:00 Blood Pressure 137/74 09/26/18 07:08 Blood Pressure Mean 91 09/22/18 15:01 Pulse Oximetry 96 09/26/18 07:08 Respiratory End-tidal CO2 29 09/24/18 11:00 Oxygen Delivery Method Room Air 09/26/18 07:08 Oxygen Flow Rate 0 09/26/18 07:08 Pain Level 4 09/26/18 07:08 Comment 09/24/18 08:13 Intake & Output 09/25/18 09/25/18 09/26/18 11:59 23:59 11:59 Intake Total 350 / 1170 820 / 1170 320 / 320 Output Total 1700 / 4500 2800 / 4500 400 / 400 Balance -1350 / -3330 -1980 / -3330 -80 / -80 Weight 86.7 kg 85.7 kg Intake: IV 100 / 490 390 / 490 120 / 120 Oral 250 / 680 430 / 680 200 / 200 Output: Urine 1700 / 4500 2800 / 4500 400 / 400 Other: Urine Color Yellow Light Lety Dark Lety Straw Dark Lety Urine Appearance Clear Clear Clear Hematuria Urine Odor Normal Voiding Methods Toilet Toilet Toilet Laboratory Results WBC 10.63 k/cumm (4.4-10.8) D 09/26/18 06:45 RBC 4.10 m/cumm (4.00-5.20) 09/26/18 06:45 Hgb 11.5 g/dL (12.0-15.5) L 09/26/18 06:45 Hct 35.7 % (36.0-46.0) L 09/26/18 06:45 MCV 87.1 fL (80-95) 09/26/18 06:45 MCH 28.0 pg (27.0-33.0) 09/26/18 06:45 MCHC 32.2 g/dL (32.0-36.0) 09/26/18 06:45 RDW 13.6 % (11.7-14.6) 09/26/18 06:45 Plt Count 313 x1000/uL (130-400) 09/26/18 06:45 MPV 10.7 fL (8.0-11.0) 09/26/18 06:45 Immature Gran % 0.4 09/26/18 06:45 71.2 09/26/18 06:45 18.1 09/26/18 06:45 6.7 09/26/18 06:45 3.4 09/26/18 06:45 0.2 09/26/18 06:45 Absolute Neutrophils 7.57 k/cumm (1.2-6.7) H 09/26/18 06:45 Absolute Lymphocytes 1.92 k/cumm (1.2-3.4) 09/26/18 06:45 Absolute Monocytes 0.71 k/cumm (0.11-0.7) H 09/26/18 06:45 Absolute Eosinophils 0.36 k/cumm (0.0-0.7) 09/26/18 06:45 Absolute Basophils 0.02 k/cumm (0.0-0.2) 09/26/18 06:45 Sodium 141 mmol/L (136-145) 09/26/18 06:45 Potassium 4.0 mmol/L (3.5-5.1) 09/26/18 06:45 Chloride 106 mmol/L (98-107) 09/26/18 06:45 Carbon Dioxide 24.9 mmol/L (21.0-32.0) 09/26/18 06:45 10.1 mmol/L (3-11) 09/26/18 06:45 BUN 23 mg/dL (7-18) H 09/26/18 06:45 1.32 mg/dL (0.55-1.02) H 09/26/18 06:45 40.52 (mL/min/1.73m2) 09/26/18 06:45 Glucose 86 mg/dL (70-100) 09/26/18 06:45 Calcium 8.0 mg/dL (8.5-10.1) L 09/26/18 06:45 Magnesium 2.1 mg/dL (1.8-2.4) 09/25/18 06:53 0.4 mg/dL (0.2-1.0) 09/22/18 11:30 AST 15 U/L (15-37) 09/22/18 11:30 ALT 32 U/L (12-78) 09/22/18 11:30 188 U/L (46-116) H 09/22/18 11:30 7.7 g/dL (6.4-8.2) 09/22/18 11:30 3.6 g/dL (3.4-5.0) 09/22/18 11:30 168 U/L (73-393) 09/22/18 11:30 Yellow (Yellow) 09/25/18 10:13 Sl cloudy (Clear) 09/25/18 10:13 5.5 (5-8) 09/25/18 10:13 Ur Specific [place] 1.010 (1.005-1.025) 09/25/18 10:13 30 mg/dL (Negative) H 09/25/18 10:13 Negative mg/dL (Negative) 09/25/18 10:13 Large (Negative) H 09/25/18 10:13 Negative (Negative) 09/25/18 10:13 Negative (Negative) 09/25/18 10:13 0.2 EU/dL (Up TO 0.2) 09/25/18 10:13 Ur Leukocyte Esterase Small (Negative) H 09/25/18 10:13 20-50 (0-2) H 09/25/18 10:13 10-20 HPF (0-5) 09/25/18 10:13 Ur Epithelial Cells Few HPF (Negative) 09/25/18 10:13 Negative HPF (Negative) 09/25/18 10:13 Few HPF (Negative) 09/25/18 10:13 Negative LPF (Negative) 09/25/18 10:13 Trace (Negative) 09/25/18 10:13 Few transitional (Negative) 09/23/18 10:23 Ur Culture Indicated? Yes 09/25/18 10:13 Negative mg/dL (Negative) 09/25/18 10:13
[2018-09-26] MEDS: Isosorbide Mononitrate 30 MG TABCR 60 MG PO (07:41)
[2018-09-26] MEDS: Omeprazole 20 MG CAPCR PO ×2 (07:41→20:11)
--- NOTE | 2018-09-26 08:00 | DI.US_ITS ---
SYMPTOM/DIAGNOSIS: S/P STENT, F/U HYDRONEPHROSIS RENAL ULTRASOUND: The kidneys are normal in size and shape. No right hydronephrosis is seen. There is mild left hydronephrosis, essentially unchanged from examination of 09/23/18. Patient has reportedly had stent placement in the interval and the findings raise the possibility of stent malfunction. The stent is visible extending into the urinary bladder on the left. CONCLUSION: Left ureteral stent in place. Mild left hydronephrosis noted.
[2018-09-26 08:34] VITALS: O2SAT 96
[2018-09-26] MEDS: Clopidogrel 75 MG TAB PO (08:41)
[2018-09-26] MEDS: HYDROmorphone 2 MG/ML VIAL 0.5 MG IVP ×3 (09:02→19:12)
--- NOTE | 2018-09-26 12:39 | PGE_ITS ---
Documented by User: Caron Paulino NP 09/26/18 13:15 Date of Service Date of service: 09/26/18 Time of Service: 12:40 Assessment and Plan (1) JAY (acute kidney injury): Current visit: Yes Status: Acute In the setting of obstruction and hydronephrosis- she is s/p stent placement by urology. Creatinine remains elevated, but is improving, down to 1.32. UA showed leukocyte esterase, culture pending. WBC normalized today. She is afebrile. Currently on day #4 of Ceftriaxone. Continue IV Ceftriaxone. Continue to hold nephrotoxic medications. Repeat BMP in the morning. Monitor cultures. (2) Hydronephrosis, left: Current visit: Yes Status: Acute Noted on CT at time of admission. She is status post cystoscopy, left retrograde pyelogram with insertion left ureteral stent by Dr. Phelps on 09/24/18. Her left flank pain resolved initially then recurred yesterday afternoon and has been persistent. Urology ordered a renal ultrasound which shows left hydronephrosis, essentially unchanged from prior to stent placement. Urology is unable to place a larger stent at this facility. Call placed to [facility] for consideration of transfer versus down and back for interventional radiology to place nephrostomy tube. Await call back from [facility]. (3) Hypoxia: Current visit: No Status: Acute Chest x-ray revealed findings consistent with interval development of acute CHF. She received IV lasix x2 doses with significant urinary output. She is no longer hypoxic or short of breath, cough is improving. Continue to monitor fluid status. (4) DM (diabetes mellitus): Current visit: No Status: None She was hyperglycemic on admission. Her blood glucose has improved, she was hypoglycemic this morning. She is currently only on Levemir and short-acting insulin via sliding scale. Decrease Levemir, decrease aspart to sensitive sliding scale. Continue to monitor blood glucose before meals. Adjust diabetic regimen as indicated. (5) HTN (hypertension): Current visit: Yes Status: Chronic Blood pressure has been within an acceptable range. Continue Metoprolol and isosorbide. Continue to hold losartan in the setting of acute kidney injury. Continue to monitor blood pressure. (6) Hyperlipidemia: Current visit: Yes Status: Acute Continue atorvastatin. (7) GERD (gastroesophageal reflux disease): Current visit: No Status: None Continue omeprazole. (8) Fibromyalgia: Current visit: No Status: None Continue Tramadol per home dose and IV APAP for pain. (9) CAD (coronary artery disease): Current visit: No Status: None Resume Plavix. Continue BB, statin, isosorbide, PRN nitro per usual regimen. (10) DVT prophylaxis: Current visit: Yes Status: Acute Resume lovenox for DVT prophylaxis. This case was discussed with Dr. Zhang who is in agreement. Subjective Interval history since last seen: Nallely Velazquez is sitting up in the chair today. She was pain-free yesterday and went on to have recurrence of the same pain that she presented with, although less intense, currently 5/10, not 10/10 when she presented to the ED. The pain is again in her left low back/flank, into her left groin. She believes her urine output has decreased. She feels nauseated and her appetite is poor. She spoke with Dr. Phelps this morning and she is interested in placement of a larger stent or nephrostomy tubes, neither of which are options here at [facility]. She would agree to transfer to [facility] or [facility] (or down and back for intervention). She continues to have a mild cough, she is no longer short of breath, no wheezing. She denies chest pain/pressure, palpitations or edema. Exam Narrative Exam Narrative: General: middle aged female, sitting up in the chair, in NAD. Answers questions appropriately. Speech is clear. HEENT: normocephalic, atraumatic, pupils equal and round, EOMI, mucous membranes moist. Neck: supple. Respiratory: respirations appear even and unlabored, not on oxygen, no cough noted. Lungs are clear bilaterally. No rales or wheezing. Cardiovascular: heart has regular rate and rhythm, no murmur appreciated. GI: normoactive bowel sounds throughout, abdomen soft, nondistended. +left CVA tenderness, left side abdomen tender on palpation. Extremities: no clubbing, cyanosis or edema. Pedal pulses palpable bilaterally. Objective Objective Clinical Data: Abnormal lab results 09/26/18 09/26/18 Range/Units 06:45 06:45 Hgb 11.5 L (12.0-15.5) g/dL Hct 35.7 L (36.0-46.0) % Absolute Neutrophils 7.57 H (1.2-6.7) k/cumm Absolute Monocytes 0.71 H (0.11-0.7) k/cumm BUN 23 H (7-18) mg/dL Creatinine 1.32 H (0.55-1.02) mg/dL Calcium 8.0 L (8.5-10.1) mg/dL Vital Signs Temperature 36.8 C 09/26/18 07:08 Temperature Source Tympanic 09/26/18 07:08 Pulse 75 09/26/18 07:08 Pulse Rhythm Regular 09/26/18 07:44 Pulse 92 H 09/22/18 15:10 Respiratory Rate 18 09/26/18 07:08 Respiratory Effort 09/26/18 07:44 Respiratory Depth Normal 09/26/18 07:44 Respiratory Pattern Normal 09/26/18 07:44 Blood Pressure 137/74 09/26/18 07:08 Blood Pressure Mean 91 09/22/18 15:01 Pulse Oximetry 96 09/26/18 08:34 Respiratory End-tidal CO2 29 09/24/18 11:00 Oxygen Delivery Method Room Air 09/26/18 08:34 Oxygen Flow Rate 0 09/26/18 08:34 Pain Level 4 09/26/18 07:08 Comment 09/24/18 08:13 Intake & Output 09/25/18 09/26/18 09/26/18 23:59 11:59 23:59 Intake Total 820 / 1170 970 / 970 Output Total 2800 / 4500 1050 / 1050 Balance -1980 / -3330 -80 / -80 Weight 85.7 kg Intake: IV 390 / 490 160 / 160 Oral 430 / 680 810 / 810 Output: Urine 2800 / 4500 1050 / 1050 Other: Urine Color Light Lety Dark Lety Dark Lety Urine Appearance Clear Cloudy Hematuria Comment Voids x2 in toilet. Pt reports poor urine output (in comparison with baseline). Voiding Methods Toilet Toilet Laboratory Results WBC 10.63 k/cumm (4.4-10.8) D 09/26/18 06:45 RBC 4.10 m/cumm (4.00-5.20) 09/26/18 06:45 Hgb 11.5 g/dL (12.0-15.5) L 09/26/18 06:45 Hct 35.7 % (36.0-46.0) L 09/26/18 06:45 MCV 87.1 fL (80-95) 09/26/18 06:45 MCH 28.0 pg (27.0-33.0) 09/26/18 06:45 MCHC 32.2 g/dL (32.0-36.0) 09/26/18 06:45 RDW 13.6 % (11.7-14.6) 09/26/18 06:45 Plt Count 313 x1000/uL (130-400) 09/26/18 06:45 MPV 10.7 fL (8.0-11.0) 09/26/18 06:45 Immature Gran % 0.4 09/26/18 06:45 71.2 09/26/18 06:45 18.1 09/26/18 06:45 6.7 09/26/18 06:45 3.4 09/26/18 06:45 0.2 09/26/18 06:45 Absolute Neutrophils 7.57 k/cumm (1.2-6.7) H 09/26/18 06:45 Absolute Lymphocytes 1.92 k/cumm (1.2-3.4) 09/26/18 06:45 Absolute Monocytes 0.71 k/cumm (0.11-0.7) H 09/26/18 06:45 Absolute Eosinophils 0.36 k/cumm (0.0-0.7) 09/26/18 06:45 Absolute Basophils 0.02 k/cumm (0.0-0.2) 09/26/18 06:45 Sodium 141 mmol/L (136-145) 09/26/18 06:45 Potassium 4.0 mmol/L (3.5-5.1) 09/26/18 06:45 Chloride 106 mmol/L (98-107) 09/26/18 06:45 Carbon Dioxide 24.9 mmol/L (21.0-32.0) 09/26/18 06:45 10.1 mmol/L (3-11) 09/26/18 06:45 BUN 23 mg/dL (7-18) H 09/26/18 06:45 1.32 mg/dL (0.55-1.02) H 09/26/18 06:45 40.52 (mL/min/1.73m2) 09/26/18 06:45 Glucose 86 mg/dL (70-100) 09/26/18 06:45 Calcium 8.0 mg/dL (8.5-10.1) L 09/26/18 06:45 Magnesium 2.1 mg/dL (1.8-2.4) 09/25/18 06:53 0.4 mg/dL (0.2-1.0) 09/22/18 11:30 AST 15 U/L (15-37) 09/22/18 11:30 ALT 32 U/L (12-78) 09/22/18 11:30 188 U/L (46-116) H 09/22/18 11:30 7.7 g/dL (6.4-8.2) 09/22/18 11:30 3.6 g/dL (3.4-5.0) 09/22/18 11:30 168 U/L (73-393) 09/22/18 11:30 Yellow (Yellow) 09/25/18 10:13 Sl cloudy (Clear) 09/25/18 10:13 5.5 (5-8) 09/25/18 10:13 Ur Specific [place] 1.010 (1.005-1.025) 09/25/18 10:13 30 mg/dL (Negative) H 09/25/18 10:13 Negative mg/dL (Negative) 09/25/18 10:13 Large (Negative) H 09/25/18 10:13 Negative (Negative) 09/25/18 10:13 Negative (Negative) 09/25/18 10:13 0.2 EU/dL (Up TO 0.2) 09/25/18 10:13 Ur Leukocyte Esterase Small (Negative) H 09/25/18 10:13 20-50 (0-2) H 09/25/18 10:13 10-20 HPF (0-5) 09/25/18 10:13 Ur Epithelial Cells Few HPF (Negative) 09/25/18 10:13 Negative HPF (Negative) 09/25/18 10:13 Few HPF (Negative) 09/25/18 10:13 Negative LPF (Negative) 09/25/18 10:13 Trace (Negative) 08/20/19 10:13 Few transitional (Negative) 09/23/18 10:23 Ur Culture Indicated? Yes 09/25/18 10:13 Negative mg/dL (Negative) 09/25/18 10:13 Documented by User: Kevin Zhang MD 09/27/18 14:30
--- NOTE | 2018-09-26 14:55 | CHAPLAIN ---
Nallely was sitting up in her chair, visiting with her son when I stopped in. She the plan now is for her to be transferred to [facility] for a [place] and she's waiting to hear when she will be going. It's been difficult to be patient, she said. At this point she would just like to go and have the procedure done, and go home, she said. She had an uncomfortable night. Nallely gave me permission to let her cellar worker, RevOmer Barnett know she will be transferred and to also let her Rev. Vincent Adhikari from [facility] know about her plan.
[2018-09-26] MEDS: cefTRIAXone 1 GM/50 ML BAG IVPB (15:00)
[2018-09-26 15:28] VITALS: BP 143/67; PULSE 82; RESP 18; TEMP 36.6; O2SAT 95
--- NOTE | 2018-09-26 15:52 | W.INDIABCONS ---
Date of service: 09/26/18 Time of Service: 15:52 Diabetes Inpatient Consult DESCRIPTION/ASSESSMENT: Appreciate diabetes consult for Nallely Michaelyanci Caroline who is known from outpatient DSMS. No current A1c but she is known to run in the 10 range. BMI 33 Blood sugar at admission in 500s, however they corrected quickly and currently in the 67-175 range. She was taking her usual 44units Levemir twice daily in addition to sitagliptin and Glipizide, however this has decreased to 25u Levemir twice daily and has sensitive insulin correction. Attempted to meet with Nallely, however she was in pain and not able to converse. 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 INTERVENTION: Appreciate reduction in basal insulin and addition of mealtime insulin correction. No further suggestion at this time. PLAN: Will follow blood sugars and f/u with her prior to discharge. Time Spent in Nutritional Counseling and Treatment: 5 minutes face to face
[2018-09-26] MEDS: Enoxaparin 40 MG/0.4 ML SYR SC (16:03)
[2018-09-26] MEDS: Insulin Aspart 300 UNITS/3 ML PEN SC (17:00)
[2018-09-26] MEDS: Benzonatate 100 MG CAP PO (17:01)
--- NOTE | 2018-09-26 17:33 | PDOC.CMPRO ---
Care Management Progress Note S/O: Nallely was lying in bed and shared that she anticipated being transferred or sent for a down and back appointment. She shared her concerns and talked about her children's concerns as well. She reported wanting to attend to issues as she feels she has had a long enough stay in the hospital and is ready to return home. CM continues to follow. A: 63 year old female admitted to [facility] 09/24/18 for JAY, kidney stone P: Anticipate per provider, Nallely will have a down and back appointment to [facility] [place] for Nephrostomy tube. Nallely will return home when ready per MD. She reports being on vacation from work to attend the fair. 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 She will transport home via private vehicle with family.
[2018-09-26 19:27] VITALS: BP 149/74; PULSE 80; RESP 18; TEMP 37; O2SAT 93
[2018-09-26] MEDS: ACETAMINOPHEN 1,000 MG/100 ML BTL 200 MG IVPB (23:31)
[2018-09-26 23:33] VITALS: BP 162/81; PULSE 82; RESP 17; TEMP 36.6; O2SAT 96
[2018-09-27] MEDS: HYDROmorphone 2 MG/ML VIAL 0.5 MG IVP ×3 (00:31→16:16)
[2018-09-27] MEDS: Normal Saline Flush 10 ML SYR IVP ×4 (00:32→16:16)
[2018-09-27] MEDS: Ondansetron 4 MG/2 ML VIAL IVP ×3 (00:33→16:15)
--- NOTE | 2018-09-27 01:00 | NUR.NOTE ---
Nursing Note: Pt was medicated with Zofran and dilaudid PRN twice and with good relief. Appetite is poor at supper. Had a piece of toast and ice cream and pt verbalized of be on NPO after midnight. Scheduled offirmev administered at 200 cc/hr as per pt request. Midline on left upper arm flushed and with good blood returned. Voided in good amount of yellow urine with few sediments.. Ice compress applied of forehead for headache at this time. Call lights at reach.
[2018-09-27 05:35] VITALS: BP 153/81; PULSE 66; RESP 17; TEMP 36.3; O2SAT 93
[2018-09-27 05:39] VITALS: O2SAT 93
[2018-09-27] MEDS: ACETAMINOPHEN 1,000 MG/100 ML BTL 200 MG IVPB ×3 (05:58→23:52)
[2018-09-27 07:50] VITALS: BP 177/97; PULSE 73; RESP 16; TEMP 37; O2SAT 96
[2018-09-27] MEDS: Omeprazole 20 MG CAPCR PO ×2 (07:50→20:10)
--- NOTE | 2018-09-27 10:02 | CMPROGNOTE_ITS ---
- If Service Date Differs Date of service: 09/27/18 Time of Service: 10:02 Care Management Progress Note S/O:Nallely was transferred to [facility] [place] this morning to have a percutaneous nephrostomy tube placed. She will return later this afternoon. CM will continue to follow. A: 63 year old female admitted to [facility] 09/24/18 for JAY, kidney stone P: Nallely will return home when ready, with no services needed. 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 She will transport home via private vehicle with family.
--- NOTE | 2018-09-27 10:59 | NUR.NOTE ---
Nursing Note: [id number]: pt's pocket book placed in bottom drawer of bureau per her request.
--- NOTE | 2018-09-27 14:30 | PGE_ITS ---
Date of Service Date of service: 09/27/18 Time of Service: 14:30 Assessment and Plan (1) Hydronephrosis, left: Current visit: Yes Status: Acute Noted on CT at time of admission, patient is s/p cystoscopy with left retrograde pyelogram and insertion of a large ureteral stenton 09/24. - Initially with improvement in WBC and Creatinine - however with continued discomfort and imaging findings of unchanged hydro. - Patient is now s/p Percutaneous Nephrostomy placement, with continued discomfort. Will collect stat labs now (as patient's labs were not drawn this morning), treat pain, and consider repeat ultrasound vs CT in the morning if continued discomfort and pending lab results. If at this point she has continued evidence of obstruction, she will need transfer to tertiary care for further evaluation. (2) JAY (acute kidney injury): Current visit: Yes Status: Acute In the setting of obstruction and hydronephrosis, s/p stent placement by urology. - Creatinine remains elevated but has bee improving. Continue to monitor. - Urinalysis with trace LE and pyuria, but no evidence of infection by culture results. Discontinue Ceftriaxone today. - Renally dose medications when appropriate, and avoid nephrotoxins. (3) Hypoxia: Current visit: No Status: Acute Mild hypoxia, with appearance of volume overload by CXR in patient receiving IVFs due to JAY - resolved with administration of diuretic therapy. Appears stable. (4) DM (diabetes mellitus): Current visit: No Status: None Borderline hypoglycemia due to poor PO intake, despite witholding of Byetta and half dose Januvia. - Hold Januvia, Byetta, and Glipizide. - Basal insulin dose decreased. - Continue to monitor blood sugars carefully. Currently on sliding scale coverage. (5) GERD (gastroesophageal reflux disease): Current visit: No Status: None Continue PPI therapy. (6) CAD (coronary artery disease): Current visit: No Status: None Noted. Appears quiescent. continue statin, clopidogrel, long acting nitrate, and BB therapy. (7) HTN (hypertension): Current visit: Yes Status: Chronic ARB remains on hold in setting of JAY. Continue BB and imdur. Current blood pressures are reasonable. (8) DVT prophylaxis: Current visit: Yes Status: Acute SC Lovenox Subjective Interval history since last seen: 63 year old diabetic woman, admitted from [facility] Emergency Department on 09/24 with a diagnosis of left sided ureteral obstruction and JAY. Mrs. Selam Velazquez has a Past Medical History significant for IDDM, CAD, GERD, Hypothyroidism, HTN, and Fibromyalgia. She presented to the ED with onset of severe left flank and abdominal pain. Her work-up was pertinent for leukocytosis and JAY, Hyperglycemia with a blood sugar of over 500, and Imaging showing evidence of left hydronephrosis without obvious stone. The patient's hydronephrosis and left sided urinary tract obstruction were felt secondary to a recently passed stone, and she was admitted for further observation and pain control. Unfortunately, by the morning after admission the patient's creatinine and WBC worsened, with repeat ultrasound showing continued left sided hydronephrosis. At that time she was taken to the OR, and underwent a Cystoscopy with a left retrograde Pyelogram and insertion of a large left ureteral stent. Unfortunately, cause for obstruction was not immediately obvious, with potential given for either ruptured calyx or papillary necrosis. The patient's symptoms temporarily improved initially post-stenting, but began again approximately 24 hours after. Her WBC and creatinine continued to improve, but repeat ultrasound showed continued evidence of obstruction with left sided hydronephrosis. Following discussion with Urology and IR at [facility], decision was made to transfer patient for insertion of a percutaneous nephrostomy tube. This morning Mrs. Selam Velazquez was transferred to [facility] for a PCN - following the procedure she continued to experience significant pain, and upon return was found to be in continued discomfort. He nephrostomy tube is draining blood tin ged red urine. No other events reported. Exam Narrative Exam Narrative: General: Patient appears uncomfortable, AAOX3 Neck: Supple CV: Regular, tachycardic, +3/6 LLSB murmur Pulmonary: Clear to auscultation bilaterally, no crackles, wheezing, or rhonchi Abdomen: + Bowel Sounds, soft, nontender, nondistended : Left sided PCN tube in place, draining bloody urine into red Vascular: No lower extremity edema Psych: Normal mood and affect. Objective Objective Clinical Data: Vital Signs Temperature 37.0 C 09/27/18 07:50 Temperature Source Tympanic 09/27/18 07:50 Pulse 73 09/27/18 07:50 Pulse Rhythm Regular 09/27/18 05:40 Pulse 92 H 09/22/18 15:10 Respiratory Rate 16 09/27/18 07:50 Respiratory Effort 09/27/18 05:40 Respiratory Depth Normal 09/27/18 05:40 Respiratory Pattern Normal 09/27/18 05:40 Blood Pressure 177/97 H 09/27/18 07:50 Blood Pressure Mean 91 09/22/18 15:01 Pulse Oximetry 96 09/27/18 07:50 Respiratory End-tidal CO2 29 09/24/18 11:00 Oxygen Delivery Method Room Air 09/27/18 07:50 Oxygen Flow Rate 0 09/27/18 07:50 Pain Level 5 09/27/18 07:59 Comment 09/27/18 05:35 Intake & Output 09/26/18 09/27/18 09/27/18 23:59 11:59 23:59 Intake Total 1070.5 / 2040.5 260.5 / 260.5 Output Total 1300 / 2350 1050 / 1050 Balance -229.5 / -309.5 -789.5 / -789.5 Weight 54 kg Intake: IV 350.5 / 510.5 260.5 / 260.5 Oral 720 / 1530 Output: Urine 1300 / 2350 1000 / 1000 Emesis 50 / 50 Other: Urine Color Yellow Yellow Straw Urine Appearance Sediment Cloudy Urine Odor Normal Normal Stool Size Moderate Small Stool Characteristics Formed Soft Brown Formed Emesis Description None Bile Clear/Water Voiding Methods Toilet Toilet Laboratory Results WBC 10.63 k/cumm (4.4-10.8) D 09/26/18 06:45 RBC 4.10 m/cumm (4.00-5.20) 09/26/18 06:45 Hgb 11.5 g/dL (12.0-15.5) L 09/26/18 06:45 Hct 35.7 % (36.0-46.0) L 09/26/18 06:45 MCV 87.1 fL (80-95) 09/26/18 06:45 MCH 28.0 pg (27.0-33.0) 09/26/18 06:45 MCHC 32.2 g/dL (32.0-36.0) 09/26/18 06:45 RDW 13.6 % (11.7-14.6) 09/26/18 06:45 Plt Count 313 x1000/uL (130-400) 09/26/18 06:45 MPV 10.7 fL (8.0-11.0) 09/26/18 06:45 Immature Gran % 0.4 09/26/18 06:45 71.2 09/26/18 06:45 18.1 09/26/18 06:45 6.7 09/26/18 06:45 3.4 09/26/18 06:45 0.2 09/26/18 06:45 Absolute Neutrophils 7.57 k/cumm (1.2-6.7) H 09/26/18 06:45 Absolute Lymphocytes 1.92 k/cumm (1.2-3.4) 09/26/18 06:45 Absolute Monocytes 0.71 k/cumm (0.11-0.7) H 09/26/18 06:45 Absolute Eosinophils 0.36 k/cumm (0.0-0.7) 09/26/18 06:45 Absolute Basophils 0.02 k/cumm (0.0-0.2) 09/26/18 06:45 Sodium 141 mmol/L (136-145) 09/26/18 06:45 Potassium 4.0 mmol/L (3.5-5.1) 09/26/18 06:45 Chloride 106 mmol/L (98-107) 09/26/18 06:45 Carbon Dioxide 24.9 mmol/L (21.0-32.0) 09/26/18 06:45 10.1 mmol/L (3-11) 09/26/18 06:45 BUN 23 mg/dL (7-18) H 09/26/18 06:45 1.32 mg/dL (0.55-1.02) H 09/26/18 06:45 40.52 (mL/min/1.73m2) 09/26/18 06:45 Glucose 86 mg/dL (70-100) 09/26/18 06:45 Calcium 8.0 mg/dL (8.5-10.1) L 09/26/18 06:45 Magnesium 2.1 mg/dL (1.8-2.4) 09/25/18 06:53 0.4 mg/dL (0.2-1.0) 09/22/18 11:30 AST 15 U/L (15-37) 09/22/18 11:30 ALT 32 U/L (12-78) 09/22/18 11:30 188 U/L (46-116) H 09/22/18 11:30 7.7 g/dL (6.4-8.2) 09/22/18 11:30 3.6 g/dL (3.4-5.0) 09/22/18 11:30 168 U/L (73-393) 09/22/18 11:30 Yellow (Yellow) 09/25/18 10:13 Sl cloudy (Clear) 09/25/18 10:13 5.5 (5-8) 09/25/18 10:13 Ur Specific [place] 1.010 (1.005-1.025) 09/25/18 10:13 30 mg/dL (Negative) H 09/25/18 10:13 Negative mg/dL (Negative) 09/25/18 10:13 Large (Negative) H 09/25/18 10:13 Negative (Negative) 09/25/18 10:13 Negative (Negative) 09/25/18 10:13 0.2 EU/dL (Up TO 0.2) 09/25/18 10:13 Ur Leukocyte Esterase Small (Negative) H 09/25/18 10:13 20-50 (0-2) H 09/25/18 10:13 10-20 HPF (0-5) 09/25/18 10:13 Ur Epithelial Cells Few HPF (Negative) 09/25/18 10:13 Negative HPF (Negative) 09/25/18 10:13 Few HPF (Negative) 09/25/18 10:13 Negative LPF (Negative) 09/25/18 10:13 Trace (Negative) 09/25/18 10:13 Few transitional (Negative) 09/23/18 10:23 Ur Culture Indicated? Yes 09/25/18 10:13 Negative mg/dL (Negative) 09/25/18 10:13
--- NOTE | 2018-09-27 14:37 | NUR.NOTE ---
Nursing Note: 1435: [place] [facility]. pt had neph tube placed. pt had difficult time tolerating procedure related to pain/discomfort. neph tube is draining clear, red urine that is attached to a red bag. pain is not different following the placement of neph tube. pt rec'd 250mcg of fentanyl and 4mg of versed during procedure. post procedure pt received tramadol which pt was unable to tolerate and vomited, pt then received 0.5mg of dilaudid at 1415 and 10 mg of compazine. pt vs stable: 99.6, 176/88, 98 hr, 94% on RA. pt BS was 99 at time of this report. discharge instructions to be sent with pt for MD review. RN requests information be forwarded to Dr. Phelps as well. pt to leave facility at approximately 1445.
--- NOTE | 2018-09-27 14:44 | NUR.NOTE ---
Nursing Note: 1444: update called to pt's daughter, Loren. all questions answered at this time.
[2018-09-27 16:08] VITALS: BP 164/76; PULSE 99; RESP 18; TEMP 37.7; O2SAT 94
[2018-09-27 16:37] LABS: Absolute Basophil Count 0.04 k/cumm (0.0-0.2); Absolute Eosinophil Count 0.34 k/cumm (0.0-0.7); Absolute Lymphocyte Count 1.25 k/cumm (1.2-3.4); Absolute Monocyte Count 1.08 k/cumm (0.11-0.7); Absolute Neutrophil Count 9.98 k/cumm (1.2-6.7); Basophils % 0.3; Eosinophils % 2.6; HCT 38.3 % (36.0-46.0); HGB 12.2 g/dL (12.0-15.5); Immature Grans % 1.6; Lymphocytes % 9.7; Mean Corp. HGB Concentration 31.9 g/dL (32.0-36.0); Mean Corpuscular Hemoglobin 27.9 pg (27.0-33.0); Mean Corpuscular Volume 87.4 fL (80-95); Mean Platelet Volume 10.2 fL (8.0-11.0); Monocytes % 8.4; Neutrophils % 77.4; Platelet Count 337 x1000/uL (130-400); RBC 4.38 m/cumm (4.00-5.20); RBC Distribution Width 13.8 % (11.7-14.6); White Blood Cell Count 12.89 k/cumm (4.4-10.8)
[2018-09-27] MEDS: Normal Saline 1,000 ML 100 ML IV (16:44)
[2018-09-27 16:45] LABS: Anion Gap 14.5 mmol/L (3-11); BUN 12 mg/dL (7-18); CO2 20.5 mmol/L (21.0-32.0); CREATININE 1.03 mg/dL (0.55-1.02); Calcium 8.3 mg/dL (8.5-10.1); Chloride 106 mmol/L (98-107); Estimated GFR 53.95 (mL/min/1.73m2); Glucose 117 mg/dL (70-100); Magnesium 1.6 mg/dL (1.8-2.4); Potassium 3.7 mmol/L (3.5-5.1); Sodium 141 mmol/L (136-145)
[2018-09-27] MEDS: Enoxaparin 40 MG/0.4 ML SYR SC (16:55)
[2018-09-27] MEDS: POTASSIUM CHLORIDE 20 MEQ, POTASSIUM CHLORIDE 10 MEQ 30 MEQ PO (17:31)
[2018-09-27] MEDS: MAGNESIUM SULFATE 2 GM/50 ML BAG IVPB (17:32)
[2018-09-27 18:55] VITALS: BP 161/74; PULSE 97; RESP 18; TEMP 37.6; O2SAT 91
--- NOTE | 2018-09-27 18:57 | NUR.NOTE ---
Nursing Note: Pt received via stretcher, fully awake and with nephrostomy tube on the left side draining hummel colored output on urinary bag. Had bowel movement and small amount of dark blood in the hat noticed. Medicated with dilaudid and zofran. Vital signs taken and recorded. New orders rendered. Pt has no appetite at supper. Midline reeceived not having good blood return. Flushed 6x and repositioned. Blood drawn done for lab works. Continue to monitor.
[2018-09-27 20:14] VITALS: BP 148/53; PULSE 96; RESP 18; TEMP 37.4; O2SAT 96
[2018-09-28 00:05] VITALS: BP 167/93; PULSE 88; RESP 18; TEMP 37.1; O2SAT 94
[2018-09-28] MEDS: ACETAMINOPHEN 1,000 MG/100 ML BTL 200 MG IVPB ×2 (05:51→11:45)
[2018-09-28] MEDS: Normal Saline 1,000 ML 100 ML IV (05:51)
[2018-09-28] MEDS: Normal Saline Flush 10 ML SYR IVP ×2 (06:35→11:46)
[2018-09-28 07:15] LABS: Abs Immature Grans 0.15 k/cumm (0.0-0.09); Absolute Basophil Count 0.04 k/cumm (0.0-0.2); Absolute Eosinophil Count 0.38 k/cumm (0.0-0.7); Absolute Lymphocyte Count 1.86 k/cumm (1.2-3.4); Absolute Monocyte Count 0.67 k/cumm (0.11-0.7); Absolute Neutrophil Count 6.45 k/cumm (1.2-6.7); Basophils % 0.4; HGB 11.1 g/dL (12.0-15.5); Immature Grans % 1.6; Lymphocytes % 19.5; Mean Corp. HGB Concentration 31.7 g/dL (32.0-36.0); Mean Corpuscular Volume 88.4 fL (80-95); Mean Platelet Volume 10.2 fL (8.0-11.0); Neutrophils % 67.5; Platelet Count 360 x1000/uL (130-400); RBC 3.96 m/cumm (4.00-5.20); RBC Distribution Width 13.6 % (11.7-14.6); White Blood Cell Count 9.55 k/cumm (4.4-10.8)
[2018-09-28 07:19] LABS: Anion Gap 11.8 mmol/L (3-11); BUN 12 mg/dL (7-18); CO2 22.2 mmol/L (21.0-32.0); CREATININE 1.14 mg/dL (0.55-1.02); Chloride 106 mmol/L (98-107); Estimated GFR 47.99 (mL/min/1.73m2); Glucose 191 mg/dL (70-100); Magnesium 1.9 mg/dL (1.8-2.4); Potassium 4.2 mmol/L (3.5-5.1); Sodium 140 mmol/L (136-145)
--- NOTE | 2018-09-28 07:35 | PGE_ITS ---
Date of Service Date of service: 09/28/18 Time of Service: 07:35 Assessment and Plan (1) Hydronephrosis, left: Current visit: Yes Status: Acute If her lab work has improved and she feels well enough, I have no issue with her being discharged. I would suggest leaving the nephrostomy tube to drainage until she comes back in for an outpatient procedure. The outpatient procedure will involve cystoscopy, removal of the left ureteral stent and left flexible ureteroscopy. Once we ensure that the ureteral and renal pelvic anatomy is clear of any obstruction and debris, we can then clamp the nephrostomy tube to allow the urine to flow back down the ureter. If she has no flank pain with the nephrostomy tube clamped, we would then be able to remove the nephrostomy tube. I will have my office staff start working on this scheduling for her. Subjective Interval history since last seen: She had a nephrostomy tube placed on the left yesterday. Initially, she had quite a bit of pain. After receiving adequate analgesia, she was able to get some sleep, and her pain has improved this morning. She continues to void but has large volume output from the left nephrostomy tube. Exam Narrative Exam Narrative: She appears somewhat uncomfortable but does not appear septic or toxic. Her nephrostomy tube output is clearing nicely. Her lab work is still pending. Objective Objective Clinical Data: Abnormal lab results 09/27/18 09/27/18 09/28/18 Range/Units 16:20 16:20 06:45 WBC 12.89 H (4.4-10.8) k/cumm RBC (4.00-5.20) m/cumm Hgb (12.0-15.5) g/dL Hct (36.0-46.0) % MCHC 31.9 L (32.0-36.0) g/dL Absolute Neutrophils 9.98 H (1.2-6.7) k/cumm Absolute Monocytes 1.08 H (0.11-0.7) k/cumm Carbon Dioxide 20.5 L (21.0-32.0) mmol/L Anion Gap 14.5 H 11.8 H (3-11) mmol/L Creatinine 1.03 H 1.14 H (0.55-1.02) mg/dL Glucose 117 H 191 H (70-100) mg/dL Calcium 8.3 L 8.0 L (8.5-10.1) mg/dL Magnesium 1.6 L (1.8-2.4) mg/dL 09/28/18 Range/Units 06:45 WBC (4.4-10.8) k/cumm RBC 3.96 L (4.00-5.20) m/cumm Hgb 11.1 L (12.0-15.5) g/dL Hct 35.0 L (36.0-46.0) % MCHC 31.7 L (32.0-36.0) g/dL Absolute Neutrophils (1.2-6.7) k/cumm Absolute Monocytes (0.11-0.7) k/cumm Carbon Dioxide (21.0-32.0) mmol/L Anion Gap (3-11) mmol/L Creatinine (0.55-1.02) mg/dL Glucose (70-100) mg/dL Calcium (8.5-10.1) mg/dL Magnesium (1.8-2.4) mg/dL Vital Signs Temperature 37.1 C 09/28/18 00:05 Temperature Source Tympanic 09/28/18 00:05 Pulse 88 09/28/18 00:05 Pulse Rhythm Regular 09/28/18 06:27 Pulse 92 H 09/22/18 15:10 Respiratory Rate 18 09/28/18 00:05 Respiratory Effort Non-Labored 09/28/18 06:27 Respiratory Depth Normal 09/28/18 06:27 Respiratory Pattern Normal 09/28/18 06:27 Blood Pressure 167/93 H 09/28/18 00:05 Blood Pressure Mean 91 09/22/18 15:01 Pulse Oximetry 94 L 09/28/18 00:05 Respiratory End-tidal CO2 29 09/24/18 11:00 Oxygen Delivery Method Room Air 09/28/18 00:05 Oxygen Flow Rate 0 09/28/18 00:05 Pain Level 2 09/28/18 05:51 Comment 09/27/18 05:35 Intake & Output 09/27/18 09/27/18 09/28/18 11:59 23:59 11:59 Intake Total 260.5 / 770.5 510 / 770.5 1068.333 / 1068.333 Output Total 1050 / 1950 900 / 1950 400 / 400 Balance -789.5 / -1179.5 -390 / -1179.5 668.333 / 668.333 Weight 54 kg Intake: IV 260.5 / 410.5 150 / 410.5 1068.333 / 1068.333 Oral 360 / 360 Output: Urine 1000 / 1300 300 / 1300 400 / 400 Stool 600 / 600 Emesis 50 / 50 Other: Urine Color Yellow Bright Red Brown Straw Urine Appearance Cloudy Cloudy Sediment Urine Odor Normal None Stool Size Small Stool Characteristics Soft Liquid Formed Emesis Description Bile None Clear/Water Voiding Methods Toilet Toilet Laboratory Results WBC 9.55 k/cumm (4.4-10.8) 09/28/18 06:45 RBC 3.96 m/cumm (4.00-5.20) L 09/28/18 06:45 Hgb 11.1 g/dL (12.0-15.5) L 09/28/18 06:45 Hct 35.0 % (36.0-46.0) L 09/28/18 06:45 MCV 88.4 fL (80-95) 09/28/18 06:45 MCH 28.0 pg (27.0-33.0) 09/28/18 06:45 MCHC 31.7 g/dL (32.0-36.0) L 09/28/18 06:45 RDW 13.6 % (11.7-14.6) 09/28/18 06:45 Plt Count 360 x1000/uL (130-400) 09/28/18 06:45 MPV 10.2 fL (8.0-11.0) 09/28/18 06:45 Immature Gran % 1.6 09/28/18 06:45 67.5 09/28/18 06:45 19.5 09/28/18 06:45 7.0 09/28/18 06:45 4.0 09/28/18 06:45 0.4 09/28/18 06:45 Absolute Neutrophils 6.45 k/cumm (1.2-6.7) 09/28/18 06:45 Absolute Lymphocytes 1.86 k/cumm (1.2-3.4) 09/28/18 06:45 Absolute Monocytes 0.67 k/cumm (0.11-0.7) 09/28/18 06:45 Absolute Eosinophils 0.38 k/cumm (0.0-0.7) 09/28/18 06:45 Absolute Basophils 0.04 k/cumm (0.0-0.2) 09/28/18 06:45 Sodium 140 mmol/L (136-145) 09/28/18 06:45 Potassium 4.2 mmol/L (3.5-5.1) 09/28/18 06:45 Chloride 106 mmol/L (98-107) 09/28/18 06:45 Carbon Dioxide 22.2 mmol/L (21.0-32.0) 09/28/18 06:45 11.8 mmol/L (3-11) H 09/28/18 06:45 BUN 12 mg/dL (7-18) 09/28/18 06:45 1.14 mg/dL (0.55-1.02) H 09/28/18 06:45 47.99 (mL/min/1.73m2) 09/28/18 06:45 Glucose 191 mg/dL (70-100) H 09/28/18 06:45 Calcium 8.0 mg/dL (8.5-10.1) L 09/28/18 06:45 Magnesium 1.9 mg/dL (1.8-2.4) 09/28/18 06:45 0.4 mg/dL (0.2-1.0) 09/22/18 11:30 AST 15 U/L (15-37) 09/22/18 11:30 ALT 32 U/L (12-78) 09/22/18 11:30 188 U/L (46-116) H 09/22/18 11:30 7.7 g/dL (6.4-8.2) 09/22/18 11:30 3.6 g/dL (3.4-5.0) 09/22/18 11:30 168 U/L (73-393) 09/22/18 11:30 Yellow (Yellow) 09/25/18 10:13 Sl cloudy (Clear) 09/25/18 10:13 5.5 (5-8) 09/25/18 10:13 Ur Specific [place] 1.010 (1.005-1.025) 09/25/18 10:13 30 mg/dL (Negative) H 09/25/18 10:13 Negative mg/dL (Negative) 09/25/18 10:13 Large (Negative) H 09/25/18 10:13 Negative (Negative) 09/25/18 10:13 Negative (Negative) 09/25/18 10:13 0.2 EU/dL (Up TO 0.2) 09/25/18 10:13 Ur Leukocyte Esterase Small (Negative) H 09/25/18 10:13 20-50 (0-2) H 09/25/18 10:13 10-20 HPF (0-5) 09/25/18 10:13 Ur Epithelial Cells Few HPF (Negative) 09/25/18 10:13 Negative HPF (Negative) 09/25/18 10:13 Few HPF (Negative) 09/25/18 10:13 Negative LPF (Negative) 09/25/18 10:13 Trace (Negative) 09/25/18 10:13 Few transitional (Negative) 09/23/18 10:23 Ur Culture Indicated? Yes 09/25/18 10:13 Negative mg/dL (Negative) 09/25/18 10:13
[2018-09-28] MEDS: Atorvastatin 40 MG TAB 80 MG PO (07:42)
[2018-09-28] MEDS: Isosorbide Mononitrate 30 MG TABCR 60 MG PO (07:42)
[2018-09-28] MEDS: Clopidogrel 75 MG TAB PO (07:42)
[2018-09-28] MEDS: Metoprolol CR 25 MG TABCR 50 MG PO (07:43)
[2018-09-28] MEDS: Omeprazole 20 MG CAPCR PO (07:43)
[2018-09-28] MEDS: Insulin Aspart 300 UNITS/3 ML PEN SC ×2 (07:45→11:45)
[2018-09-28 08:19] VITALS: BP 174/92; PULSE 86; RESP 16; TEMP 37.1; O2SAT 96
[2018-09-28] MEDS: Losartan 50 MG TAB PO (09:03)
--- NOTE | 2018-09-28 09:21 | W.PM.DS.N ---
Date of service: 09/28/18 Time of Service: 09:22 DS: Diagnosis Discharge Diagnosis (1) Hydronephrosis, left: Status: Acute Discharge Plan Disposition Patient Disposition: HOME Condition: Stable Discharge Details Chief Complaint: Abd Prob Clinical Impression: Acute pyelonephritis, JAY (acute kidney injury), Intractable pain Reason For Visit: JAY,POSSIBLE KIDNEY STONE Admit Date/Time: 09/24/18 10:20 Admit Provider: Kevin Zhang Attending Provider: Kevin Zhang Primary Care Provider: Haylee Baptiste V ED Provider: Coni Lopez Hospital Course Hospital Course: Chief Complaint: Flank, abdominal pain HPI: 63 year old diabetic woman, admitted from [facility] Emergency Department on 09/24 with a diagnosis of left sided ureteral obstruction and JAY. Mrs. Selam Velazquez has a Past Medical History significant for IDDM, CAD, GERD, Hypothyroidism, HTN, and Fibromyalgia. She presented to the ED with onset of severe left flank and abdominal pain. Her work-up was pertinent for leukocytosis and JAY, and Hyperglycemia with a blood sugar of over 500, with Imaging showing evidence of left hydronephrosis without an obvious source. The patient's hydronephrosis and left sided urinary tract obstruction were felt secondary to a recently passed stone, and she was admitted for further observation and pain control. Unfortunately, by the morning after admission the patient's creatinine and WBC worsened, with recurrent pain and repeat ultrasound showing continued left sided hydronephrosis. At that time she was taken to the OR, and underwent a Cystoscopy with a left retrograde Pyelogram and insertion of a large left ureteral stent. The cause for obstruction was not immediately obvious, with potential given for either ruptured calyx or papillary necrosis. The patient's symptoms temporarily improved initially post-stenting, but began again approximately 24 hours after. Her WBC and creatinine continued to improve, but repeat ultrasound showed continued evidence of obstruction with left sided hydronephrosis. Following discussion with Urology and IR at [facility] [place], decision was made to transfer patient for insertion of a percutaneous nephrostomy tube on 09/27. Despite initial discomfort following PCN placement, this morning Mrs. Selam Velazquez reports vast improvement in her symptoms. Her leukocytosis has resolved, and her creatinine remains improved and near baseline. The nephrostomy tube is draining blood tinged red urine and showing clearing, and appears to be draining well. By the afternoon of discharge the patient remains with controlled symptoms and minimal discomfort. No other events reported. She remains afebrile. Hospital Course: (1) Hydronephrosis, left: Noted on CT at time of admission, patient is s/p cystoscopy with left retrograde pyelogram and insertion of a large ureteral stenton 09/24, and with Percutaneous Nephrostomy placed on 09/27 via [facility] [place] due to persistent evidence of hydronephrosis and continued pain. - Iimprovement in WBC and Creatinine, with PCN draining well and patient appearing much more comfortable. As everything appears to be improved, urology recommends discharge with Nephrostomy Tube in place, with follow-up within 1-2 weeks for a repeat Cystoscopy, removal of the left ureteral stent, and ureteroscopy. (2) JAY (acute kidney injury): In the setting of obstruction and hydronephrosis, s/p stent placement by urology and Percutaneous Nephrostomy by [facility] [place]. - Creatinine remains stable and essentially at baseline. - Urinalysis with trace LE and pyuria, but no evidence of infection by culture results. Discontinued Ceftriaxone previously. - Will repeat renal panel in a few days following discharge. (3) Hypoxia: Mild hypoxia, with appearance of volume overload by CXR in patient receiving IVFs due to JAY - resolved with administration of diuretic therapy. Appears stable, with adequate Pulse ox on room air. (4) DM (diabetes mellitus): Borderline hypoglycemia due to poor PO intake, despite witholding of Byetta and half dose Januvia. - Patient's Januvia, Byetta, and Glipizide were held, and basal insulin dose decreased. - As patient is tolerating good oral intake with improved blood sugars in the high 160-170's will recommend reinitiation of home insulin regimen but at half dose, with careful titration and monitoring of glucose levels. Byetta, Januvia, and Glipizide to be restarted slowly by PCP. (5) GERD (gastroesophageal reflux disease): Continue PPI therapy. (6) CAD (coronary artery disease): Noted. Appears quiescent. continue statin, clopidogrel, long acting nitrate, and BB therapy. (7) HTN (hypertension): Currently hypertensive - ARB reinitiated this morning (initially held due to JAY), with improved blood pressure prior to discharge. Continue BB and imdur. (8) DVT prophylaxis: Was maintained on SC Lovenox Home Meds and New Rx's Prescriptions: New Levemir FlexTouch U-100 Insuln 100 unit/mL (3 mL) Insulin Pen 25 units subcut BID Qty: 0 RF: 0 hydrocodone-acetaminophen [Vicodin] 5-300 mg tablet 1 tab PO Q6H PRN (Reason: pain) Qty: 30 RF: 0 Continued tramadol [Ultram] 50 MG tablet 50 mg PO Q6H PRN RF: 0 nitroglycerin [Nitrostat] 0.4 MG tablet, sublingual 0.4 mg Sublingual DIRECTED RF: 0 albuterol sulfate 8.5 GM HFA aerosol inhaler 1 - 2 puff Inhalation Q4H PRN RF: 0 clopidogrel [Plavix] 75 MG tablet 75 mg PO DAILY Qty: 30 RF: 6 (DME) blood sugar diagnostic [GameriusToStockleap Ultra Test] 1 EACH strip 1 ea Topical TID RF: 0 omeprazole [Prilosec] 20 MG capsule,delayed release(DR/EC) 20 mg PO BID RF: 0 fluticasone propionate [Flonase Allergy Relief] 9.9 ML spray,suspension 9.9 ml NS DAILY RF: 0 DELICA LANCETS RF: 0 ONE TOUCH MINI GLUC RF: 0 isosorbide mononitrate 30 MG tablet extended release 24 hr 60 mg PO DAILY Qty: 60 RF: 3 triamcinolone acetonide 0.5 % cream 1 applic TP TID RF: 0 ondansetron HCl [Zofran] 4 mg tablet 4 mg PO .qq 4 HRS PRNRF: 0 nabumetone 750 mg tablet 750 mg PO BID RF: 0 ibuprofen 800 mg tablet 800 mg PO BID RF: 0 atorvastatin [Lipitor] 80 mg tablet 80 mg PO DAILY RF: 0 benzonatate [Tessalon Perles] 100 mg capsule 100 mg PO TID PRNRF: 0 Novolog U-100 Insulin aspart 100 unit/mL solution 5 unit SC .WITH MEAL RF: 0 losartan 100 mg tablet 50 mg PO DAILY RF: 0 metoprolol succinate 25 mg tablet extended release 24 hr 50 mg PO DAILY Qty: 45 RF: 3 Discontinued Levemir U-100 Insulin 100 UNIT/1 ML solution 44 units Sub-Q BID RF: 0 glipizide [Glucotrol] 10 mg tablet 10 mg PO DAILY RF: 0 Byetta 10 mcg/dose(250 mcg/mL) 2.4 mL pen injector 10 mcg SC .BEFORE MEALS RF: 0 Januvia 100 mg tablet 100 mg PO DAILY RF: 0 Discharge Instructions Additional Instructions: Please see your PCP within 1 week of discharge Stand Alone Forms: Nursing Discharge Form Referrals: Haylee Baptiste MD [Primary Care Provider] - 10/04/18 8:00 am Raman Phelps MD [ [facility] STAFF PHYSICIAN] - 10/11/18 (Your next surgical procedure is on 10/11. Day surgery will call you a couple of days before to remind you that you shouldn't use aspirin or NSAIDS 3-5 days prior and nothing to eat or drink after midnight) Activity:: No Strenuous Activity Equipment/Supplies:: No Equipment Needed Diet:: Carb Counting Discharge Orders Discharge Orders: Discharge Order (Routine); Ordered 09/28/18 Ordered By: Kevin Zhang DS: Data Vitals/I&O Vitals and I&O: Vital Signs Temperature 37.1 C 09/28/18 08:19 Temperature Source Tympanic 09/28/18 08:19 Pulse 86 09/28/18 08:19 Pulse Rhythm Regular 09/28/18 07:45 Pulse 92 H 09/22/18 15:10 Respiratory Rate 16 09/28/18 08:19 Respiratory Effort 09/28/18 07:45 Respiratory Depth Normal 09/28/18 07:45 Respiratory Pattern Normal 09/28/18 07:45 Blood Pressure 174/92 H 09/28/18 08:19 Blood Pressure Mean 91 09/22/18 15:01 Pulse Oximetry 96 09/28/18 08:19 Respiratory End-tidal CO2 29 09/24/18 11:00 Oxygen Delivery Method Room Air 09/28/18 08:19 Oxygen Flow Rate 0 09/28/18 08:19 Pain Level 2 09/28/18 07:45 Comment 09/27/18 05:35 Intake & Output 09/27/18 09/27/18 09/28/18 11:59 23:59 11:59 Intake Total 260.5 / 770.5 510 / 770.5 1318.333 / 1318.333 Output Total 1050 / 1950 900 / 1950 750 / 750 Balance -789.5 / -1179.5 -390 / -1179.5 568.333 / 568.333 Weight 84 kg 84.2 kg Intake: IV 260.5 / 410.5 150 / 410.5 1068.333 / 1068.333 Oral 360 / 360 250 / 250 Output: Urine 1000 / 1300 300 / 1300 750 / 750 Stool 600 / 600 Emesis 50 / 50 Other: Urine Color Yellow Bright Red Brown Straw Urine Appearance Cloudy Cloudy Clear Urine Odor Normal Normal Stool Size Small Moderate Stool Characteristics Soft Liquid Soft Formed Formed Emesis Description Bile None Clear/Water Voiding Methods Toilet Toilet Completed studies during hospitalization [Text1]: Exam(s) 09/26/2018 a US:US renal SYMPTOM/DIAGNOSIS: S/P STENT, F/U HYDRONEPHROSIS RENAL ULTRASOUND: The kidneys are normal in size and shape. No right hydronephrosis is seen. There is mild left hydronephrosis, essentially unchanged from examination of 09/23/18. Patient has reportedly had stent placement in the interval and the findings raise the possibility of stent malfunction. The stent is visible extending into the urinary bladder on the left. CONCLUSION: Left ureteral stent in place. Mild left hydronephrosis noted. -------- Exam(s) 09/24/2018 a RAD:XR chest 2V PA & lateral SYMPTOM/DIAGNOSIS: COUGH, HYPOXIA, RALES LT BASE PA AND LATERAL CHEST: Recent CT examination of 09/22 showed clear lung bases. On today's radiographs, there are small bilateral pleural effusions and there are diffuse bilateral pulmonary interstitial infiltrates. The findings are suggestive of interval development of CHF, possibly due to fluid overload. CONCLUSION: Findings consistent with interval development of acute CHF. Other etiologies including infectious process, ARDS, etc, not excluded. --------- Exam(s) 09/24/2018 a RAD:XR retrograde in OR SYMPTOM/DIAGNOSIS: LEFT KIDNEY STONE C-ARM FLUOROSCOPY 09/24 Fluoroscopy Time: 23.8s C-arm fluoroscopy was utilized by Dr. Phelps during cystoscopy. Please see Dr. Phelps's procedure note. Hard copy shows left ureteral stent in position. -------- Exam(s) 09/23/2018 a US:US abdomen & renal SYMPTOM/DIAGNOSIS: ? STONE BLOCKAGE ABDOMEN AND RENAL ULTRASOUND: The visualized liver parenchyma is normal in appearance. The gallbladder has been surgically removed. No biliary dilatation is seen. Pancreas unremarkable. Spleen is unremarkable. There is left hydronephrosis as noted on yesterday's CT. Left ureteral jet not identified in the urinary bladder. Bladder appears thick walled as noted on CT. CONCLUSION: Left hydronephrosis. Additional evaluation with retrograde study may be considered for further evaluation. ------- Exam(s) a CT:CT abdomen & pelvis wo SYMPTOM/DIAGNOSIS: LLQ ABD PAIN, LT FLANK PAIN, ? KIDNEY STONE, ? DIVERTICULITIS OR PANCREATITIS ABDOMEN AND PELVIC CT: CT examination of the abdomen and pelvis was performed without contrast administration. Images obtained through the lung bases show question poorly defined nodule of the left lower lobe, this measures about 5 mm. in diameter. Follow up chest CT suggested in 6 months. The liver may be mildly enlarged. Spleen is unremarkable in appearance. Gallbladder has been surgically removed. No biliary dilatation is seen. Pancreas unremarkable by noncontrast criteria. Abdominal aorta is of normal diameter. No significant abdominal wall hernia is seen. No significant abdominal or pelvic adenopathy is seen. A solitary 16 mm. lymph node which is nonspecific is noted in the left para-aortic chain at the level of the left kidney. Appendix is not specifically visualized but there is no evidence of appendicitis or diverticulitis. Adrenals appear normal bilaterally. Right kidney is unremarkable in appearance and there is no right renal or ureteral calcification. Left kidney is hydronephrotic and the left ureter is not significantly dilated raising the possibility of UPJ obstruction. No stone identified. Urinary bladder shows a thickened wall. CONCLUSION: Left hydronephrosis of uncertain etiology. The findings could represent a recently passed stone, or non calcified stone, or clot or obstructing non calcified tumor of the left ureter. Left sided urinary tract obstruction, etiology uncertain. Correlation with retrograde ureteroscopy should be considered. Urinary bladder wall thickening noted which may be secondary to chronic obstructive process versus cystitis. Please correlate clinically. Labs on day of discharge: Labs from last 24 hours 09/28/18 09/28/18 09/27/18 06:45 06:45 16:20 WBC 9.55 RBC 3.96 L Hgb 11.1 L Hct 35.0 L MCV 88.4 MCH 28.0 MCHC 31.7 L RDW 13.6 Plt Count 360 MPV 10.2 Immature Gran % 1.6 Neutrophils % 67.5 Lymphocytes % 19.5 Monocytes % 7.0 Eosinophils % 4.0 Basophils % 0.4 Absolute Neutrophils 6.45 Absolute Lymphocytes 1.86 Absolute Monocytes 0.67 Absolute Eosinophils 0.38 Absolute Basophils 0.04 Sodium 140 141 Potassium 4.2 3.7 Chloride 106 106 Carbon Dioxide 22.2 20.5 L Anion Gap 11.8 H 14.5 H BUN 12 12 D Creatinine 1.14 H 1.03 H Estimated GFR/1.73 m2 47.99 53.95 Glucose 191 H 117 H Calcium 8.0 L 8.3 L Magnesium 1.9 1.6 L 09/27/18 16:20 WBC 12.89 H RBC 4.38 Hgb 12.2 Hct 38.3 MCV 87.4 MCH 27.9 MCHC 31.9 L RDW 13.8 Plt Count 337 MPV 10.2 Immature Gran % 1.6 Neutrophils % 77.4 Lymphocytes % 9.7 Monocytes % 8.4 Eosinophils % 2.6 Basophils % 0.3 Absolute Neutrophils 9.98 H Absolute Lymphocytes 1.25 Absolute Monocytes 1.08 H Absolute Eosinophils 0.34 Absolute Basophils 0.04 Sodium Potassium Chloride Carbon Dioxide Anion Gap BUN Creatinine Estimated GFR/1.73 m2 Glucose Calcium Magnesium PFSH Medical History Sagastume esophagus CAD (coronary artery disease) Cardiac murmur DM (diabetes mellitus) Fibromyalgia GERD (gastroesophageal reflux disease) Hiatal hernia Hydronephrosis, left (Acute) Hyperlipidemia (Acute) Hypothyroidism Sarcoidosis Surgical History Cubital tunnel syndrome (Acute) egd/colo (10/20/15) Hx of cholecystectomy (Chronic) Hx of Meckel's diverticulum (Acute) TMJ (temporomandibular joint syndrome) (Acute) Social History Smoking/Tobacco Use Status: Never Drug use: Never Do you feel safe at home: Yes Do you feel safe in your relationship?: Yes
--- NOTE | 2018-09-28 11:28 | CHAPLAIN ---
[place] [facility] [place] Nallely said she will likely be discharged today or tomorrow. She said the trip [place] [facility] [place] because the staff could not give her pain medicines. She said Dr. Pat had expected to a biophysics professor to be on the crew, who could administer pain meds. Nallely said she'll be out of work for a couple of weeks and looks forward to being home and more comfortable there. 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 I offered a prayer with Nallely before leaving.
--- NOTE | 2018-09-28 15:21 | PDOC.CMPRO ---
- If Service Date Differs Date of service: 09/28/18 Time of Service: 15:21 Care Management Progress Note S/O:Nallely was sitting up in a chair eating her lunch when CM visited. She stated that she is feeling much better. She was unsure at that point if she would discharge today or tomorrow morning. She is afebrile, has a normal WBC and is putting out urine through her nephrostomy tube. She denied the need for any services at home. A: 63 year old female admitted to [facility] 09/24/18 for JAY, kidney stone P: Nallely will return home when ready, with no services needed. 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 She will transport home via private vehicle with family.
== END 2018-09-28 17:34 | disposition home or self-care (01) | DRG 661 ==
LOC: ER 15:06 → MS 15:45
PROVIDERS: Nurse Practitioner; Nurse Practitioner Family; Urology; Admitting Provider Internal Medicine; Emergency Provider Physician Assistant; PCP Family Medicine; Visit Provider Internal Medicine
PROC: 0T778DZ Dilation of Left Ureter with Intraluminal Device, Via Natural or Artificial Opening Endoscopic (ICD-10-PCS; CPT 52332; principal; 2018-09-24 12:45)
DX: N13.2 Hydronephrosis with renal and ureteral calculous obstruction (principal); N17.9 Acute kidney failure, unspecified; R09.02 Hypoxemia; I50.9 Heart failure, unspecified; R05 Cough; E11.65 Type 2 diabetes mellitus with hyperglycemia; K21.9 Gastro-esophageal reflux disease without esophagitis; E03.9 Hypothyroidism, unspecified; I25.10 Atherosclerotic heart disease of native coronary artery without angina pectoris; I10 Essential (primary) hypertension; T38.3X6A Underdosing of insulin and oral hypoglycemic [antidiabetic] drugs, initial encounter; Z91.128 Patient's intentional underdosing of medication regimen for other reason; Z79.4 Long term (current) use of insulin; M79.7 Fibromyalgia; Z71.3 Dietary counseling and surveillance; Z93.6 Other artificial openings of urinary tract status; Z98.890 Other specified postprocedural states
CPT/HCPCS: 52332; 52005; 36410; 36415; 36416; 36569; 76770; 80048; 80053; 82962; 83690; 96361; 96365; 96375; 96376; 99223; 99232; 99233; 99239; 99285; J1650; 71046; 74176; 74420; 76700; 81003; 81015; 83735; 85025; 87086; 99220; 99226; G0378; J0131; J0696; J0780; J1885; J1941; J2405; J3010; J3475; J3490; J7613; Q9967

== ENCOUNTER 2018-10-01 10:18 | Outpatient (CLI) | payer OTHER, SELFPAY ==
[2018-10-01 15:42] LABS: Abs Immature Grans 0.23 k/cumm (0.0-0.09); Absolute Basophil Count 0.03 k/cumm (0.0-0.2); Absolute Monocyte Count 0.77 k/cumm (0.11-0.7); Basophils % 0.2; Eosinophils % 2.4; HCT 35.8 % (36.0-46.0); HGB 11.6 g/dL (12.0-15.5); Immature Grans % 1.7; Lymphocytes % 24.3; Mean Corp. HGB Concentration 32.4 g/dL (32.0-36.0); Mean Corpuscular Hemoglobin 28.3 pg (27.0-33.0); Mean Corpuscular Volume 87.3 fL (80-95); Mean Platelet Volume 9.6 fL (8.0-11.0); Monocytes % 5.7; Neutrophils % 65.7; Platelet Count 462 x1000/uL (130-400); RBC Distribution Width 13.7 % (11.7-14.6); White Blood Cell Count 13.48 k/cumm (4.4-10.8)
[2018-10-01 15:50] LABS: Absolute Eosinophil Count 0.32 k/cumm (0.0-0.7); Absolute Lymphocyte Count 3.28 k/cumm (1.2-3.4); Absolute Neutrophil Count 8.86 k/cumm (1.2-6.7)
[2018-10-01 16:32] LABS: BUN 11 mg/dL (7-18); CREATININE 1.04 mg/dL (0.55-1.02); Calcium 8.2 mg/dL (8.5-10.1); Chloride 103 mmol/L (98-107); Estimated GFR 53.35 (mL/min/1.73m2); Glucose 211 mg/dL (70-100); Potassium 4.6 mmol/L (3.5-5.1); Sodium 140 mmol/L (136-145)
== END 2018-10-01 10:38 ==
PROVIDERS: PCP Family Medicine; Visit Provider Internal Medicine
DX: N17.9 Acute kidney failure, unspecified (principal); N13.30 Unspecified hydronephrosis
CPT/HCPCS: 36415; 80048; 85025

== ENCOUNTER 2018-10-06 08:48 | Observation (INO) | payer OTHER, SELFPAY ==
[2018-10-06 08:52] VITALS: BP 163/99; PULSE 109; RESP 16; TEMP 36.7; O2SAT 99
[2018-10-06] MEDS: Normal Saline 1,000 ML 1000 ML IV (09:15)
[2018-10-06 09:19] LABS: Abs Immature Grans 0.05 k/cumm (0.0-0.09); Absolute Lymphocyte Count 0.86 k/cumm (1.2-3.4); Absolute Monocyte Count 0.21 k/cumm (0.11-0.7); Basophils % 0.2; Eosinophils % 0.1; HCT 43.2 % (36.0-46.0); HGB 14.2 g/dL (12.0-15.5); Immature Grans % 0.3; Lymphocytes % 4.8; Mean Corp. HGB Concentration 32.9 g/dL (32.0-36.0); Mean Corpuscular Hemoglobin 28.2 pg (27.0-33.0); Mean Corpuscular Volume 85.7 fL (80-95); Mean Platelet Volume 10.1 fL (8.0-11.0); Monocytes % 1.2; Neutrophils % 93.4; Platelet Count 579 x1000/uL (130-400); RBC 5.04 m/cumm (4.00-5.20); RBC Distribution Width 13.8 % (11.7-14.6); White Blood Cell Count 17.87 k/cumm (4.4-10.8)
[2018-10-06 09:20] LABS: Absolute Basophil Count 0.04 k/cumm (0.0-0.2); Absolute Eosinophil Count 0.02 k/cumm (0.0-0.7); Absolute Neutrophil Count 16.69 k/cumm (1.2-6.7)
[2018-10-06 09:30] LABS: ALT 39 U/L (14-59); AST 19 U/L (15-37); Albumin 3.6 g/dL (3.4-5.0); Alkaline Phosphatase 235 U/L (46-116); Anion Gap 13.9 mmol/L (3-11); BUN 18 mg/dL (7-18); Bilirubin, Total 0.5 mg/dL (0.2-1.0); CO2 23.1 mmol/L (21.0-32.0); Calcium 9.3 mg/dL (8.5-10.1); Chloride 100 mmol/L (98-107); Estimated GFR 37.86 (mL/min/1.73m2); Glucose 411 mg/dL (70-100); Magnesium 1.8 mg/dL (1.8-2.4); Potassium 4.2 mmol/L (3.5-5.1); Sodium 137 mmol/L (136-145); Total Protein 8.4 g/dL (6.4-8.2)
[2018-10-06 09:37] LABS: Bilirubin Negative (Negative); Blood Large (Negative); Clarity Clear (Clear); Glucose 500 mg/dL (Negative); Ketones 15 mg/dL (Negative); Leukocyte Esterase Small (Negative); Nitrite Negative (Negative); Urobilinogen 0.2 EU/dL (Up TO 0.2); pH 5.5 (5-8)
[2018-10-06 09:52] LABS: Bacteria Few HPF (Negative); C & S Indicated? Yes; Casts Negative LPF (Negative); Crystals Negative HPF (Negative); Epithelial Cells Negative HPF (Negative); Mucus Negative (Negative); Other Cells Negative (Negative); RBC >50 (0-2)
--- NOTE | 2018-10-06 09:54 | DI.CT_ITS ---
SYMPTOMS/DIAGNOSIS: ABDOMINAL PAIN, EPIGASTRIC; NEPHROSTOMY, STENT; LEUKOCYTOSIS CT OF THE ABDOMEN AND PELVIS: A noncontrast exam was performed. The heart size is normal. The lung bases are clear. The liver is enlarged and shows some fatty infiltration. The patient is status post cholecystectomy. There is no biliary dilatation. There is a small hiatal hernia. The spleen is normal in size. The pancreas and right kidney are unremarkable. There is a left nephrostomy tube, as well as a left ureteral stent. There are no visible urinary tract calculi or hydronephrosis. There is a question of minimal bladder wall thickening; however, the bladder is not well distended. There is diverticulosis of the sigmoid, but no evidence of diverticulitis. The uterus and ovaries are unremarkable. There is no bowel dilatation. No bony abnormalities are seen. IMPRESSION: Left nephrostomy tube and left ureteral stent. No evidence of hydronephrosis or perinephric collection. There is no evidence of abscess.
--- NOTE | 2018-10-06 09:56 | ED.GENADUL_ITS ---
Discharge Plan Disposition Patient Disposition: [facility] INPATIENT Discharge Details Chief Complaint: Nausea/Vomit/Diar Clinical Impression: Acute hyperglycemia, DKA (diabetic ketoacidoses), Complicated urinary tract infection Primary Care Provider: Haylee Baptiste V ED Provider: Charanjit Durham Home Meds and New Rx's Prescriptions: No Action tramadol [Ultram] 50 MG tablet 50 mg PO Q6H PRN RF: 0 nitroglycerin [Nitrostat] 0.4 MG tablet, sublingual 0.4 mg Sublingual DIRECTED RF: 0 albuterol sulfate 8.5 GM HFA aerosol inhaler 1 - 2 puff Inhalation Q4H PRN RF: 0 clopidogrel [Plavix] 75 MG tablet 75 mg PO DAILY Qty: 30 RF: 6 (DME) blood sugar diagnostic [OneTouch Ultra Test] 1 EACH strip 1 ea Topical TID RF: 0 omeprazole [Prilosec] 20 MG capsule,delayed release(DR/EC) 20 mg PO BID RF: 0 fluticasone propionate [Flonase Allergy Relief] 9.9 ML spray,suspension 9.9 ml NS DAILY RF: 0 DELICA LANCETS RF: 0 ONE TOUCH MINI GLUC RF: 0 isosorbide mononitrate 30 MG tablet extended release 24 hr 60 mg PO DAILY Qty: 60 RF: 3 triamcinolone acetonide 0.5 % cream 1 applic TP TID RF: 0 ondansetron HCl [Zofran] 4 mg tablet 4 mg PO .qq 4 HRS PRNRF: 0 nabumetone 750 mg tablet 750 mg PO BID RF: 0 ibuprofen 800 mg tablet 800 mg PO BID RF: 0 atorvastatin [Lipitor] 80 mg tablet 80 mg PO DAILY RF: 0 benzonatate [Tessalon Perles] 100 mg capsule 100 mg PO TID PRNRF: 0 Novolog U-100 Insulin aspart 100 unit/mL solution 5 unit SC .WITH MEAL RF: 0 losartan 100 mg tablet 50 mg PO DAILY RF: 0 metoprolol succinate 25 mg tablet extended release 24 hr 50 mg PO DAILY Qty: 45 RF: 3 Levemir FlexTouch U-100 Insuln 100 unit/mL (3 mL) Insulin Pen 25 units subcut BID Qty: 0 RF: 0 hydrocodone-acetaminophen [Vicodin] 5-300 mg tablet 1 tab PO Q6H PRN (Reason: pain) Qty: 30 RF: 0 Medical Decision Making 11:35 -- 63-year-old female with history of GERD, insulin-dependent diabetes, recent ureteral stent and left nephrostomy tube, here with nausea and vomiting since last night. Patient is mildly tachycardic and appears hypovolemic. Labs reviewed and leukocytosis noted. Patient does have anion gap acidosis with hyperglycemia. Concern for mild DKA. Patient given 1 L normal saline initially and will continue with additional 500 mL. Will repeat BMP. CT of the abdomen pelvis was interpreted by radiology: IMPRESSION: 1. Nephrostomy tube terminates in the left renal collecting system.. 2. Left ureteral stent extends from the left renal collecting system to the bladder. 3. Mild hydronephrosis persists in the left kidney. 4. The bladder wall measures 6 mm. This is nonspecific and may represent inflammation or infection. Neoplastic process and neurogenic bladder are included in the differential. Initial urinalysis from nephrostomy reviewed and has greater than 50 red blood cells, 5-10 white blood cells, concern for complicated UTI - plan to initiate ceftriaxone 1 g IV Will send UA on urethral output as well. Will send lactate and blood cultures. Call to hospitalist to discuss admission. 11:52 -- No urologist available at [facility] and hospitalist recommends discussion with [facility]. Call to [facility] to speak with urology. 12:13 -- Spoke with Dr. Gayle at [facility] -discussed ED presentation and course including all diagnostics: He recommends admission to [facility] for IV hydration and IV antibiotics and will be happy to see the patient as outpatient follow-up. --Labs reviewed and lactate normal. Anion gap improved. Glucose improved. 12:45 --Dr. Zhang he spoke with Dr. Gayle -Dr. Zhang to admit the patient request bridging orders to the floor. HPI General Mode of arrival: ambulatory . Date/Time Provider Initiated Documentation: 10/06/18 08:59 . Limitations to Documentation: no limitations . Information obtained by: patient . HPI Narrative: 63-year-old female with history of insulin-dependent diabetes, recent hydronephrosis requiring ureteral stent and then nephrostomy tube, returns today with chief complaint of nausea and vomiting. Symptoms started last night and persisted through the motorcycle deliverer. Multiple bouts of vomiting. Symptoms have been severe. No modifiers. Patient had elevated blood sugar in the 500s this morning. Patient has been using insulin as prescribed recently. Patient is making urine without dysuria. Patient also notes associated epigastric abdominal discomfort that is been moderate. No associated fevers. Patient is not currently on an antibiotic. Related Data Home Medications Medication Instructions Recorded Confirmed albuterol sulfate 1 - 2 puff INHALATION Q4H PRN 10/14/13 10/06/18 inhaler nitroglycerin [Nitrostat] 0.4 mg SUBLINGUAL DIRECTED 10/14/13 10/06/18 tramadol [Ultram] 50 mg PO Q6H PRN tab-cap 10/14/13 10/06/18 clopidogrel [Plavix] 75 mg PO DAILY #30 tab-cap 10/22/13 10/06/18 Delica Lancets 01/05/15 One Touch Mini Gluc 01/05/15 blood sugar diagnostic [OneTouch strip 01/05/15 09/02/16 Ultra Test] fluticasone propionate [Flonase 9.9 ml NS DAILY 01/05/15 10/06/18 Allergy Relief] omeprazole [Prilosec] 20 mg PO BID tab-cap 01/05/15 10/06/18 isosorbide mononitrate 60 mg PO DAILY #60 tab-cap 01/26/15 10/06/18 atorvastatin 80 mg tablet 80 mg PO DAILY 03/06/18 10/06/18 benzonatate 100 mg capsule 100 mg PO TID PRN 03/06/18 10/06/18 ibuprofen 800 mg tablet 800 mg PO BID 03/06/18 10/06/18 insulin aspart U-100 100 unit/mL 5 unit SC .WITH MEAL ml 03/06/18 10/06/18 subcutaneous solution losartan 100 mg tablet 50 mg PO DAILY tab 03/06/18 10/06/18 metoprolol succinate 25 mg 50 mg PO DAILY #45 tab-cap 03/06/18 10/06/18 tablet,extended release 24 hr nabumetone 750 mg tablet 750 mg PO BID 03/06/18 10/06/18 ondansetron HCl 4 mg tablet 4 mg PO .qq 4 HRS PRN tab 03/06/18 10/06/18 triamcinolone acetonide 0.5 % 1 applic TP TID 03/06/18 10/06/18 topical cream hydrocodone-acetaminophen [Vicodin] 1 tab PO Q6H PRN #30 tab 09/28/18 10/06/18 insulin detemir U-100 [Levemir 25 units SUBCUT BID #0 ml 09/28/18 10/06/18 FlexTouch U-100 Insuln] Previous Rx's Medication Instructions Recorded hydrocodone-acetaminophen [Vicodin] 1 tab PO Q6H PRN #30 tab 09/28/18 insulin detemir U-100 [Levemir 25 units SUBCUT BID #0 ml 09/28/18 FlexTouch U-100 Insuln] Allergies Allergy/AdvReac Type Severity Reaction Status Date / Time Iodinated Contrast Media Allergy Severe Anaphylaxsi Unverified 10/06/18 08:55 [Iodinated Contrast Media - s IV Dye] iodine Allergy Severe Unverified 10/06/18 08:55 amlodipine Allergy Intermediate Verified 10/06/18 08:55 codeine Allergy Unverified 10/06/18 08:55 hepatitis B virus vaccine Allergy Unverified 10/06/18 08:55 lisinopril Allergy Unverified 10/06/18 08:55 meperidine HCl [From Demerol] Allergy Unverified 10/06/18 08:55 metformin HCl Allergy Unverified 10/06/18 08:55 [From Glucophage] prednisone Allergy Unverified 10/06/18 08:55 shellfish derived Allergy Unverified 10/06/18 08:55 meperidine AdvReac Severe Cardiac Unverified 10/06/18 08:55 Dysrythmia morphine AdvReac Severe Nausea Unverified 10/06/18 08:55 oxaprozin [From Daypro] AdvReac Severe ams Unverified 10/06/18 08:55 sulindac [From Clinoril] AdvReac Intermediate ams Unverified 10/06/18 08:55 General Stated Complaint: Nausea/Vomit/Diar ANSHU: 3 Review of Systems Review of Systems All systems reviewed & are unremarkable except as noted in HPI and below Constitutional Denies fever(s) Cardiovascular Denies chest pain Gastrointestinal Reports abdominal pain, Reports nausea and Reports vomiting PFSH Medical History Sagastume esophagus CAD (coronary artery disease) Cardiac murmur DM (diabetes mellitus) Fibromyalgia GERD (gastroesophageal reflux disease) Hiatal hernia Hydronephrosis, left (Acute) Hyperlipidemia (Acute) Hypothyroidism Sarcoidosis Surgical History Cubital tunnel syndrome (Acute) with repair egd/colo (10/20/15) Hx of cholecystectomy (Chronic) Hx of Meckel's diverticulum (Acute) with surgery TMJ (temporomandibular joint syndrome) (Acute) with surgical repair Social History Smoking/Tobacco Use Status: Never Alcohol Intake: never Drug use: Never Do you feel safe at home: Yes Do you feel safe in your relationship?: Yes Exam Const General: cooperative and no acute distress HENMT Head: normocephalic Mouth: moist mucous membranes Eyes Conjunctivae: normal conjunctivae Sclera: normal sclerae Neck Neck: trachea midline and supple Resp Auscultation: clear to auscultation bilaterally, no rales, no rhonchi and no wheezes Cardio Rate: regular rate and not tachycardic Rhythm: regular rhythm GI Inspection: non-distended Palpation: soft, not firm, no guarding, no masses, not rigid and tender in the epigastrum (mild); with no rebound tenderness Auscultation: normal bowel sounds Back/Spine/Pelvis Other: Left nephrostomy tube intact with no swelling or erythema Skin General skin exam: no rashes or lesions noted Neuro General: alert, awake and tone normal Extrem General: no edema Psych Appearance: grossly normal Mental Status: mental status grossly normal Speech and Movement: speech and movement normal Course Vital Signs Temperature 36.7 C 10/06/18 08:52 Pulse 109 H 10/06/18 08:52 Respiratory Rate 16 10/06/18 08:52 Blood Pressure 163/99 H 10/06/18 08:52 Pulse Oximetry 99 10/06/18 08:52 Temperature 36.7 C 10/06/18 08:52 Temperature Source Skin 10/06/18 08:52 Pulse 109 H 10/06/18 08:52 Respiratory Rate 16 10/06/18 08:52 Respiratory Effort Non-Labored 10/06/18 08:57 Blood Pressure 163/99 H 10/06/18 08:52 Pulse Oximetry 99 10/06/18 08:52 Pain Level 0 10/06/18 08:52 Lab/Test Results Lab/Test Results: 10/06/18 09:30 Urine - Reflex from Ua Urine Culture - Pending Laboratory Tests Range/Units 10/06/18 10/06/18 10/06/18 09:09 09:09 09:30 WBC (4.4-10.8) k/cumm 17.87 H RBC (4.00-5.20) m/cumm 5.04 Hgb (12.0-15.5) g/dL 14.2 Hct (36.0-46.0) % 43.2 MCV (80-95) fL 85.7 MCH (27.0-33.0) pg 28.2 MCHC (32.0-36.0) g/dL 32.9 RDW (11.7-14.6) % 13.8 Plt Count (130-400) x1000/uL 579 H MPV (8.0-11.0) fL 10.1 Immature Gran % 0.3 Neutrophils % 93.4 Lymphocytes % 4.8 Monocytes % 1.2 Eosinophils % 0.1 Basophils % 0.2 Absolute Neutrophils (1.2-6.7) k/cumm 16.69 H Absolute Lymphocytes (1.2-3.4) k/cumm 0.86 L Absolute Monocytes (0.11-0.7) k/cumm 0.21 Absolute Eosinophils (0.0-0.7) k/cumm 0.02 Absolute Basophils (0.0-0.2) k/cumm 0.04 Sodium (136-145) mmol/L 137 Potassium (3.5-5.1) mmol/L 4.2 Chloride (98-107) mmol/L 100 Carbon Dioxide (21.0-32.0) mmol/L 23.1 Anion Gap (3-11) mmol/L 13.9 H BUN (7-18) mg/dL 18 Creatinine (0.55-1.02) mg/dL 1.40 H Estimated GFR/1.73 m2 (mL/min/1.73m2) 37.86 Glucose (70-100) mg/dL 411 H Calcium (8.5-10.1) mg/dL 9.3 Magnesium (1.8-2.4) mg/dL 1.8 Total Bilirubin (0.2-1.0) mg/dL 0.5 AST (15-37) U/L 19 ALT (14-59) U/L 39 Alkaline Phosphatase (46-116) U/L 235 H Total Protein (6.4-8.2) g/dL 8.4 H Albumin (3.4-5.0) g/dL 3.6 Urine Color (Yellow) Yellow Urine Clarity (Clear) Clear Urine pH (5-8) 5.5 Ur Specific [place] (1.005-1.025) 1.010 Urine Protein (Negative) mg/dL 100 H Urine Ketones (Negative) mg/dL 15 H Urine Blood (Negative) Large H Urine Nitrite (Negative) Negative Urine Bilirubin (Negative) Negative Urine Urobilinogen (Up TO 0.2) EU/dL 0.2 Ur Leukocyte Esterase (Negative) Small H Urine RBC (0-2) >50 H Urine WBC (0-5) HPF 5-10 Ur Epithelial Cells (Negative) HPF Negative Urine Crystals (Negative) HPF Negative Urine Bacteria (Negative) HPF Few Urine Casts (Negative) LPF Negative Urine Mucus (Negative) Negative Urine Other (Negative) Negative Ur Culture Indicated? Yes Urine Glucose (Negative) mg/dL 500 H
[2018-10-06] MEDS: Normal Saline Flush 10 ML SYR IVP (10:47)
[2018-10-06] MEDS: Normal Saline 500 ML IV (10:48)
--- NOTE | 2018-10-06 11:10 | DI.VRAD_ITS ---
EXAM: CT Abdomen and Pelvis Without Contrast EXAM DATE/TIME: 10/06/2018 9:56 AM CLINICAL HISTORY: 63 years old, female; Other: Abd pain, epigas, nephrostomy, stent, leukocytosis; Prior surgery; Surgery date: <1 month; Surgery type: Nephrostomy tube 09/27. Stent after nephrostomy tube. Cholecystectomy years ago TECHNIQUE: Imaging protocol: Computed tomography of the abdomen and pelvis without contrast. Radiation optimization: All CT scans at this facility use at least one of these dose optimization techniques: automated exposure control; mA and/or kV adjustment per patient size (includes targeted exams where dose is matched to clinical indication); or iterative reconstruction. COMPARISON: CT ABDOMEN PELVIS WO 09/22/2018 12:24 PM FINDINGS: Mediastinum: Small hiatal hernia. Liver: Hepatomegaly 16 cm Gallbladder and bile ducts: Status post cholecystectomy. Pancreas: Normal. No ductal dilation. Spleen: Normal. No splenomegaly. Adrenals: Normal. No mass. Kidneys and ureters: Nephrostomy tube terminates in the left renal collecting system.. Left ureteral stent extends from the left renal collecting system to the bladder. Mild hydronephrosis persists in the left kidney. Stomach and bowel: Unremarkable. No obstruction. No mucosal thickening. Appendix: No evidence of appendicitis. Intraperitoneal space: Normal. No free air. No significant fluid collection. Vasculature: Unremarkable. No abdominal aortic aneurysm. Lymph nodes: Unremarkable. No enlarged lymph nodes. Bladder: The bladder wall measures 6 mm. This is nonspecific and may represent inflammation or infection. Neoplastic process and neurogenic bladder are included in the differential. Reproductive: Unremarkable as visualized. Bones/joints: Unremarkable. No acute fracture. Soft tissues: Unremarkable. IMPRESSION: 1. Nephrostomy tube terminates in the left renal collecting system.. 2. Left ureteral stent extends from the left renal collecting system to the bladder. 3. Mild hydronephrosis persists in the left kidney. 4. The bladder wall measures 6 mm. This is nonspecific and may represent inflammation or infection. Neoplastic process and neurogenic bladder are included in the differential. Dictated and Authenticated by: Pat Schilling MD. Ordering:SHEYLA Donohue MD
[2018-10-06 11:49] LABS: Bilirubin Negative (Negative); Blood Small (Negative); Clarity Clear (Clear); Glucose 500 mg/dL (Negative); Ketones 15 mg/dL (Negative); Leukocyte Esterase Small (Negative); Nitrite Negative (Negative); Specific Gravity 1.015 (1.005-1.025); Urobilinogen 0.2 EU/dL (Up TO 0.2)
[2018-10-06 12:00] LABS: Anion Gap 10.6 mmol/L (3-11); BUN 17 mg/dL (7-18); CO2 23.4 mmol/L (21.0-32.0); CREATININE 1.22 mg/dL (0.55-1.02); Calcium 8.4 mg/dL (8.5-10.1); Chloride 105 mmol/L (98-107); Estimated GFR 44.37 (mL/min/1.73m2); Glucose 339 mg/dL (70-100); Potassium 4.3 mmol/L (3.5-5.1); Sodium 139 mmol/L (136-145)
[2018-10-06 12:04] LABS: Bacteria Few HPF (Negative); Crystals Few Amorphous HPF (Negative); Epithelial Cells Many HPF (Negative); Other Cells Negative (Negative)
[2018-10-06 12:05] LABS: C & S Indicated? No/Sq. Contamination; Casts Negative LPF (Negative); Mucus Trace (Negative)
[2018-10-06] MEDS: cefTRIAXone 1 GM/50 ML BAG IVPB ×2 (12:09→15:16)
[2018-10-06] MEDS: Insulin REGULAR-Human 100 UNITS/ML UNIT 10 UNITS SC (12:19)
[2018-10-06 14:27] VITALS: BP 149/71; PULSE 96; RESP 18; TEMP 36.9; O2SAT 97
[2018-10-06] MEDS: Heparin 5,000 UNITS/ML VIAL 5000 UNITS SC ×2 (15:17→23:47)
[2018-10-06] MEDS: Normal Saline 1,000 ML 125 ML IV ×2 (15:20→23:38)
--- NOTE | 2018-10-06 15:20 | HPE_ITS ---
Date of service: 10/06/18 Time of Service: 15:20 Assessment and Plan (1) Nausea: Current visit: Yes Status: Acute Persistent nausea and vomiting, with evidence of mild dehydration, leukocytosis, Hyperglycemia, potential UTI by labs, and a thickened bladder wall by imaging. - Symptoms possibly on the basis of infection. Will continue hydrate, utilize anti-emetic as needed, and initiate antibiotic therapy. Monitor symptoms. (2) Hydronephrosis, left: Current visit: No Status: Acute Persistent left sided hydronephrosis despite large left ureteral stent and PCN placement - no further flank or abdominal pain reported, and mild hydronephrosis appears unchanged from prior and with evidence of good left nephrostomy output. - Continue to monitor renal function and UOP. Appears stable. Follow-up with urology as previously planned. (3) DM (diabetes mellitus): Current visit: No Status: None Previously on higher dose basal insulin, with Januvia, Byetta, and Glipizide also on board. Patient exhibited borderline hypoglycemia last hospitalization due to poor PO intake, despite witholding of Byetta, Januvia, and Glipizide. She was discharged on essentially half-dose basal insulin only, without any other agents on board, and reports blood sugars stable in the 100- 200 range. Current hyperglycemia is in the setting of dehydration and potential infeciton. - Continue current dose of Detemir, initiate on sliding scale coverage, and continue ADA diet. (4) UTI (urinary tract infection): Current visit: No Status: Acute Potential UTI by urinalysis and imaging with evidence of possible cystitis. - Await urine cultures and initiate Ceftriaxone. (5) JAY (acute kidney injury): Current visit: No Status: Acute Likely due to pre-renal azotemia/dehydration in setting of nausea, vomiting, and poor PO intake. Appears improving with hydration. - Continue IVFs - monitor volume status as patient developed mild fluid overload during her last hospitalization. (6) HTN (hypertension): Current visit: No Status: Chronic Continue BB, Imdur. Hold ARB given JAY. (7) DVT prophylaxis: Current visit: No Status: Acute SC Heparin. History of Present Illness Chief Complaint: Nausea, Vomiting Narrative: 63 year old diabetic woman, being admitted from [facility] Emergency Department on 10/06 with a diagnosis of Nausea, Vomiting, and likely UTI. with a diagnosis of left sided ureteral obstruction and JAY. Mrs. Hawlk Weeks has a Past Medical History significant for IDDM, CAD, GERD, Hypothyroidism, HTN, and Fibromyalgia. She was just hospitalized here at [facility] between September 24 - with a left sided ureteral obstruction that did not respond to initial Ureteral Stenting, eventually requiring placement of a Percutaneous Nephrostopmy Tube at [facility]. She also had evidence of initial Hyperglycemia and JAY, both improved prior to discharge. Of note, as her blood sugar had significantly improved and was borderline low, she was discharged with a significantly modified home regimen for her diabetes. Following discharge Mrs. Selam Velazquez reports daily improvement in her symptoms, with stability in her blood sugars in the 100-200 range, but with onset of nausea and vomiting at midnight last night that persisted through to this morning. Although she reports occasional bouts of nausea and vomiting in the past, she reports that they do not usually persist this long. Her work-up in the ED was pertinent for leukocytosis, JAY with a creatinine mildly above baseline, and hyperglycemia. Her urinalysis shows small LE with 10-20 WBCs (also with many epithelial cells), and CT shows mild persistent left sided hydronephrosis as well as a thickened bladder wall potentially on the basis of infection or inflammation. Also noted to be tachycardic, but not hypotensive or febrile. She was referred for admission for further evaluation and treatment. Review of Systems Review of Systems All systems reviewed & are unremarkable except as noted in HPI and below PFSH Medical History Sagastume esophagus CAD (coronary artery disease) Cardiac murmur DM (diabetes mellitus) Fibromyalgia GERD (gastroesophageal reflux disease) Hiatal hernia Hydronephrosis, left (Acute) Hyperlipidemia (Acute) Hypothyroidism Sarcoidosis Surgical History Cubital tunnel syndrome (Acute) with repair egd/colo (10/20/15) Hx of cholecystectomy (Chronic) Hx of Meckel's diverticulum (Acute) with surgery TMJ (temporomandibular joint syndrome) (Acute) with surgical repair Social History Smoking/Tobacco Use Status: Never Alcohol Intake: never Drug use: Never Do you feel safe at home: Yes Do you feel safe in your relationship?: Yes Meds Home Medications Medication Instructions Recorded Confirmed Type albuterol sulfate 1 - 2 puff INHALATION Q4H PRN 10/14/13 10/06/18 History inhaler nitroglycerin [Nitrostat] 0.4 mg SUBLINGUAL DIRECTED 10/14/13 10/06/18 History tramadol [Ultram] 50 mg PO Q6H PRN tab-cap 10/14/13 10/06/18 History clopidogrel [Plavix] 75 mg PO DAILY #30 tab-cap 10/22/13 10/06/18 History Delica Lancets 01/05/15 History One Touch Mini Gluc 01/05/15 History blood sugar diagnostic [OneTouch strip 01/05/15 09/02/16 History Ultra Test] fluticasone propionate [Flonase 9.9 ml NS DAILY 01/05/15 10/06/18 History Allergy Relief] omeprazole [Prilosec] 20 mg PO BID tab-cap 01/05/15 10/06/18 History isosorbide mononitrate 60 mg PO DAILY #60 tab-cap 01/26/15 10/06/18 History atorvastatin 80 mg tablet 80 mg PO DAILY 03/06/18 10/06/18 History benzonatate 100 mg capsule 100 mg PO TID PRN 03/06/18 10/06/18 History ibuprofen 800 mg tablet 800 mg PO BID 03/06/18 10/06/18 History insulin aspart U-100 100 unit/mL 5 unit SC .WITH MEAL ml 03/06/18 10/06/18 History subcutaneous solution losartan 100 mg tablet 50 mg PO DAILY tab 03/06/18 10/06/18 History metoprolol succinate 25 mg 50 mg PO DAILY #45 tab-cap 03/06/18 10/06/18 History tablet,extended release 24 hr nabumetone 750 mg tablet 750 mg PO BID 03/06/18 10/06/18 History ondansetron HCl 4 mg tablet 4 mg PO .qq 4 HRS PRN tab 03/06/18 10/06/18 History triamcinolone acetonide 0.5 % 1 applic TP TID 03/06/18 10/06/18 History topical cream hydrocodone-acetaminophen [Vicodin] 1 tab PO Q6H PRN #30 tab 09/28/18 10/06/18 Rx insulin detemir U-100 [Levemir 25 units SUBCUT BID #0 ml 09/28/18 10/06/18 Rx FlexTouch U-100 Insuln] Allergies Allergy/AdvReac Type Severity Reaction Status Date / Time Iodinated Contrast Media Allergy Severe Anaphylaxsi Unverified 10/06/18 08:55 [Iodinated Contrast Media - s IV Dye] iodine Allergy Severe Unverified 10/06/18 08:55 amlodipine Allergy Intermediate Verified 10/06/18 08:55 codeine Allergy Unverified 10/06/18 08:55 hepatitis B virus vaccine Allergy Unverified 10/06/18 08:55 lisinopril Allergy Unverified 10/06/18 08:55 meperidine HCl [From Demerol] Allergy Unverified 10/06/18 08:55 metformin HCl Allergy Unverified 10/06/18 08:55 [From Glucophage] prednisone Allergy Unverified 10/06/18 08:55 shellfish derived Allergy Unverified 10/06/18 08:55 meperidine AdvReac Severe Cardiac Unverified 10/06/18 08:55 Dysrythmia morphine AdvReac Severe Nausea Unverified 10/06/18 08:55 oxaprozin [From Daypro] AdvReac Severe ams Unverified 10/06/18 08:55 sulindac [From Clinoril] AdvReac Intermediate ams Unverified 10/06/18 08:55 Exam Narrative Exam Narrative: General: Patient appears comfortable, AAOX3, NAD Neck: Supple CV: Regular, borderline tachycardic, S1S2, No rubs, murmurs, or gallops. Pulmonary: Clear to auscultation bilaterally, no crackles, wheezing, or rhonchi Abdomen: + Bowel Sounds, soft, nontender, nondistended Vascular: No lower extremity edema Psych: Normal mood and affect. Results Labs : 10/06/18 09:09 10/06/18 11:37 Laboratory Results - last 24 hr 10/06/18 10/06/18 10/06/18 09:09 09:09 09:30 WBC 17.87 H RBC 5.04 Hgb 14.2 Hct 43.2 MCV 85.7 MCH 28.2 MCHC 32.9 RDW 13.8 Plt Count 579 H MPV 10.1 Immature Gran % 0.3 Neutrophils % 93.4 Lymphocytes % 4.8 Monocytes % 1.2 Eosinophils % 0.1 Basophils % 0.2 Absolute Neutrophils 16.69 H Absolute Lymphocytes 0.86 L Absolute Monocytes 0.21 Absolute Eosinophils 0.02 Absolute Basophils 0.04 Sodium 137 Potassium 4.2 Chloride 100 Carbon Dioxide 23.1 Anion Gap 13.9 H BUN 18 Creatinine 1.40 H Estimated GFR/1.73 m2 37.86 Glucose 411 H Lactate Calcium 9.3 Magnesium 1.8 Total Bilirubin 0.5 AST 19 ALT 39 Alkaline Phosphatase 235 H Total Protein 8.4 H Albumin 3.6 Urine Color Yellow Urine Clarity Clear Urine pH 5.5 Ur Specific [place] 1.010 Urine Protein 100 H Urine Ketones 15 H Urine Blood Large H Urine Nitrite Negative Urine Bilirubin Negative Urine Urobilinogen 0.2 Ur Leukocyte Esterase Small H Urine RBC >50 H Urine WBC 5-10 Ur Epithelial Cells Negative Urine Crystals Negative Urine Bacteria Few Urine Casts Negative Urine Mucus Negative Urine Other Negative Ur Culture Indicated? Yes Urine Glucose 500 H 10/06/18 10/06/18 10/06/18 11:37 11:37 11:45 WBC RBC Hgb Hct MCV MCH MCHC RDW Plt Count MPV Immature Gran % Neutrophils % Lymphocytes % Monocytes % Eosinophils % Basophils % Absolute Neutrophils Absolute Lymphocytes Absolute Monocytes Absolute Eosinophils Absolute Basophils Sodium 139 Potassium 4.3 Chloride 105 Carbon Dioxide 23.4 Anion Gap 10.6 BUN 17 Creatinine 1.22 H Estimated GFR/1.73 m2 44.37 Glucose 339 H Lactate 1.0 Calcium 8.4 L Magnesium Total Bilirubin AST ALT Alkaline Phosphatase Total Protein Albumin Urine Color Yellow Urine Clarity Clear Urine pH 6.0 Ur Specific [place] 1.015 Urine Protein 30 H Urine Ketones 15 H Urine Blood Small H Urine Nitrite Negative Urine Bilirubin Negative Urine Urobilinogen 0.2 Ur Leukocyte Esterase Small H Urine RBC 10-20 H Urine WBC 10-20 Ur Epithelial Cells Many Urine Crystals Few amorphous Urine Bacteria Few Urine Casts Negative Urine Mucus Trace Urine Other Negative Ur Culture Indicated? No/sq. contamination Urine Glucose 500 H Last Vital Signs Temp 36.9 C 10/06/18 14:27 Pulse 96 H 10/06/18 14:27 Resp 18 10/06/18 14:27 BP 149/71 H 10/06/18 14:27 Pulse Ox 97 10/06/18 14:27
[2018-10-06 16:05] VITALS: BP 155/84; PULSE 87; RESP 18; TEMP 36.9; O2SAT 97
[2018-10-06 17:02] VITALS: PULSE 99
[2018-10-06] MEDS: Insulin Aspart 300 UNITS/3 ML PEN SC (17:20)
[2018-10-06 19:30] VITALS: PULSE 93
[2018-10-06] MEDS: Atorvastatin 40 MG TAB 80 MG PO (19:37)
[2018-10-06] MEDS: Omeprazole 20 MG CAPCR PO (19:37)
[2018-10-06 23:53] VITALS: BP 120/73; PULSE 76; RESP 18; TEMP 36.7; O2SAT 98
[2018-10-07 01:22] VITALS: PULSE 81
[2018-10-07] MEDS: Normal Saline 1,000 ML 125 ML IV (07:01)
[2018-10-07 07:06] LABS: Abs Immature Grans 0.03 k/cumm (0.0-0.09); Absolute Basophil Count 0.06 k/cumm (0.0-0.2); Absolute Eosinophil Count 0.31 k/cumm (0.0-0.7); Absolute Monocyte Count 0.44 k/cumm (0.11-0.7); Basophils % 0.6; Eosinophils % 3.2; HCT 36.9 % (36.0-46.0); HGB 11.8 g/dL (12.0-15.5); Immature Grans % 0.3; Lymphocytes % 31.4; Mean Corpuscular Hemoglobin 28.2 pg (27.0-33.0); Mean Corpuscular Volume 88.1 fL (80-95); Mean Platelet Volume 10.3 fL (8.0-11.0); Monocytes % 4.6; Neutrophils % 59.9; Platelet Count 444 x1000/uL (130-400); RBC 4.19 m/cumm (4.00-5.20); RBC Distribution Width 13.7 % (11.7-14.6); White Blood Cell Count 9.54 k/cumm (4.4-10.8)
[2018-10-07 07:09] LABS: Absolute Neutrophil Count 5.71 k/cumm (1.2-6.7)
[2018-10-07 07:12] VITALS: PULSE 84
[2018-10-07 07:25] LABS: Anion Gap 10.4 mmol/L (3-11); BUN 15 mg/dL (7-18); CO2 23.6 mmol/L (21.0-32.0); CREATININE 1.13 mg/dL (0.55-1.02); Calcium 7.9 mg/dL (8.5-10.1); Chloride 108 mmol/L (98-107); Estimated GFR 48.48 (mL/min/1.73m2); Glucose 270 mg/dL (70-100); Magnesium 1.7 mg/dL (1.8-2.4); Potassium 3.6 mmol/L (3.5-5.1); Sodium 142 mmol/L (136-145)
[2018-10-07] MEDS: Isosorbide Mononitrate 30 MG TABCR 60 MG PO (08:16)
[2018-10-07] MEDS: Clopidogrel 75 MG TAB PO (08:16)
[2018-10-07] MEDS: Metoprolol CR 50 MG TABCR PO (08:17)
[2018-10-07] MEDS: Omeprazole 20 MG CAPCR PO ×2 (08:17→20:40)
[2018-10-07] MEDS: Heparin 5,000 UNITS/ML VIAL 5000 UNITS SC ×3 (08:18→23:56)
[2018-10-07] MEDS: Insulin Aspart 300 UNITS/3 ML PEN SC ×3 (08:18→16:52)
[2018-10-07] MEDS: Magnesium Oxide 400 MG TAB 800 MG PO (08:21)
[2018-10-07] MEDS: Potassium Chloride 20 MEQ TABCR 40 MEQ PO (08:21)
[2018-10-07 08:34] VITALS: BP 144/84; PULSE 78; RESP 17; TEMP 36.2; O2SAT 97
[2018-10-07 10:35] VITALS: PULSE 83
--- NOTE | 2018-10-07 11:49 | PGE_ITS ---
Date of Service Date of service: 10/07/18 Time of Service: 11:49 Assessment and Plan (1) Nausea: Current visit: Yes Status: Acute Persistent nausea and vomiting, with evidence of mild dehydration, leukocytosis, Hyperglycemia, potential UTI by labs, and a thickened bladder wall by imaging. - Symptoms possibly on the basis of infection. Will continue hydrate, utilize anti-emetic as needed, and initiate antibiotic therapy. Appears improved. - Of note, patient reports similiar symptoms once every 1-2 months, now ongoing for a number of years. Question potential development of Gastroparesis in uncontrolled diabetic. Will recommend outpatient GI follow-up as well. (2) Hydronephrosis, left: Current visit: No Status: Acute Persistent left sided hydronephrosis despite large left ureteral stent and PCN placement - no further flank or abdominal pain reported, and mild hydronephrosis appears unchanged from prior and with evidence of good left nephrostomy output. - Continue to monitor renal function and UOP. Appears stable. Follow-up with urology as previously planned. Creatinine improved as well. (3) DM (diabetes mellitus): Current visit: No Status: None Previously on higher dose basal insulin, with Januvia, Byetta, and Glipizide also on board. Patient exhibited borderline hypoglycemia last hospitalization due to poor PO intake, despite witholding of Byetta, Januvia, and Glipizide. She was discharged on essentially half-dose basal insulin only, without any other agents on board, and reports blood sugars stable in the 100- 200 range. Initial hyperglycemia was in the setting of dehydration and potential infeciton. - Continue current dose of Detemir, and continue on sliding scale coverage, ADA diet. (4) UTI (urinary tract infection): Current visit: No Status: Acute Potential UTI by urinalysis and imaging with evidence of possible cystitis. - Await urine cultures and continue Ceftriaxone, day#2. (5) JAY (acute kidney injury): Current visit: No Status: Acute Likely due to pre-renal azotemia/dehydration in setting of nausea, vomiting, and poor PO intake. Appears improving with hydration. - Creatinine improved. Discontinue IVFs - monitor volume status as patient developed mild fluid overload during her last hospitalization. (6) HTN (hypertension): Current visit: No Status: Chronic Continue BB, Imdur. Hold ARB given JAY. Blood pressure currently reasonable. (7) DVT prophylaxis: Current visit: No Status: Acute SC Heparin. Subjective Interval history since last seen: 63 year old diabetic woman, being admitted from [facility] Emergency Department on 10/06 with a diagnosis of Nausea, Vomiting, Hyperglycemia and likely UTI. Mrs. Selam Velazquez has a Past Medical History significant for IDDM, CAD, GERD, Hypothyroidism, HTN, and Fibromyalgia. She was just hospitalized here at [facility] between September 24 - with a left sided ureteral obstruction that did not respond to initial Ureteral Stenting, eventually requiring placement of a Percutaneous Nephrostopmy Tube at [facility] [place]. She also had evidence of initial Hyperglycemia and JAY, both improved prior to discharge. Of note, as her blood sugar had significantly improved and was borderline low, she was discharged with a significantly modified home regimen for her diabetes. Following discharge Mrs. Selam Velazquez reports daily improvement in her symptoms, with stability in her blo od sugars in the 100-200 range, but with onset of nausea and vomiting at midnight on the night prior to admission that persisted through to the next morning. Although she reports occasional bouts of nausea and vomiting in the past, she reports that they do not usually persist this long. Her work-up in the ED was pertinent for leukocytosis, JAY with a creatinine mildly above baseline, and hyperglycemia. Her urinalysis shows small LE with 10-20 WBCs (also with many epithelial cells), and CT shows mild persistent left sided hydronephrosis as well as a thickened bladder wall potentially on the basis of infection or inflammation. Also noted to be tachycardic, but not hypotensive or febrile. She was referred for admission for further evaluation and treatment. This morning Mrs. Selam Velazquez appears improved and feels subjectively better. Her Urine and Blood Cultures are still pending, but her creatinine has improved and her leukocytosis resolved. No overnight events reported. Remains afebrile. Exam Narrative Exam Narrative: General: Patient appears comfortable, AAOX3, NAD Neck: Supple CV: Regular, nontachycardic, S1S2, No rubs, murmurs, or gallops. Pulmonary: Clear to auscultation bilaterally, no crackles, wheezing, or rhonchi Abdomen: + Bowel Sounds, soft, nontender, nondistended Vascular: No lower extremity edema Psych: Normal mood and affect. Objective Objective Clinical Data: Abnormal lab results 08/10/06/18 10/07/18 Range/Units 11:37 11:45 06:50 Hgb (12.0-15.5) g/dL Plt Count (130-400) x1000/uL Chloride 108 H (98-107) mmol/L Creatinine 1.22 H 1.13 H (0.55-1.02) mg/dL Glucose 339 H 270 H (70-100) mg/dL Calcium 8.4 L 7.9 L (8.5-10.1) mg/dL Magnesium 1.7 L (1.8-2.4) mg/dL Urine Protein 30 H (Negative) mg/dL Urine Ketones 15 H (Negative) mg/dL Urine Blood Small H (Negative) Ur Leukocyte Esterase Small H (Negative) Urine RBC 10-20 H (0-2) Urine Glucose 500 H (Negative) mg/dL 10/07/18 Range/Units 06:50 Hgb 11.8 L D (12.0-15.5) g/dL Plt Count 444 H (130-400) x1000/uL Chloride (98-107) mmol/L Creatinine (0.55-1.02) mg/dL Glucose (70-100) mg/dL Calcium (8.5-10.1) mg/dL Magnesium (1.8-2.4) mg/dL Urine Protein (Negative) mg/dL Urine Ketones (Negative) mg/dL Urine Blood (Negative) Ur Leukocyte Esterase (Negative) Urine RBC (0-2) Urine Glucose (Negative) mg/dL Vital Signs Temperature 36.2 C L 10/07/18 08:34 Temperature Source Tympanic 10/07/18 08:34 Pulse 78 10/07/18 08:34 Pulse Rhythm Regular 10/07/18 09:07 Respiratory Rate 17 10/07/18 08:34 Respiratory Effort Non-Labored 10/07/18 09:07 Respiratory Depth Normal 10/07/18 09:07 Respiratory Pattern Normal 10/07/18 09:07 Blood Pressure 144/84 H 10/07/18 08:34 Pulse Oximetry 97 10/07/18 08:34 Oxygen Delivery Method Room Air 10/07/18 08:34 Oxygen Flow Rate 0 10/07/18 08:34 Pain Level 0 10/07/18 08:34 Intake & Output 10/06/18 10/06/18 10/07/18 11:59 23:59 11:59 Intake Total 1000 / 2940 1940 / 2940 2142.917 / 2142.917 Output Total 400 / 700 1400 / 1400 Balance 1000 / 2240 1540 / 2240 742.917 / 742.917 Weight 78.018 kg 78.018 kg 79.6 kg Intake: IV 1000 / 2600 1600 / 2600 922.917 / 922.917 Oral 340 / 340 1220 / 1220 Output: Urine 400 / 700 1400 / 1400 Other: Urine Color Yellow Pale Yellow Urine Appearance Clear Clear Urine Odor Normal Normal Comment Dressing CDI. Stool Characteristics Soft Emesis Description Undigested Food Voiding Methods Toilet Toilet Laboratory Results WBC 9.54 k/cumm (4.4-10.8) D 10/07/18 06:50 RBC 4.19 m/cumm (4.00-5.20) 10/07/18 06:50 Hgb 11.8 g/dL (12.0-15.5) L D 10/07/18 06:50 Hct 36.9 % (36.0-46.0) 10/07/18 06:50 MCV 88.1 fL (80-95) 10/07/18 06:50 MCH 28.2 pg (27.0-33.0) 10/07/18 06:50 MCHC 32.0 g/dL (32.0-36.0) 10/07/18 06:50 RDW 13.7 % (11.7-14.6) 10/07/18 06:50 Plt Count 444 x1000/uL (130-400) H 10/07/18 06:50 MPV 10.3 fL (8.0-11.0) 10/07/18 06:50 Immature Gran % 0.3 10/07/18 06:50 59.9 10/07/18 06:50 31.4 10/07/18 06:50 4.6 10/07/18 06:50 3.2 10/07/18 06:50 0.6 10/07/18 06:50 Absolute Neutrophils 5.71 k/cumm (1.2-6.7) 10/07/18 06:50 Absolute Lymphocytes 3.00 k/cumm (1.2-3.4) 10/07/18 06:50 Absolute Monocytes 0.44 k/cumm (0.11-0.7) 10/07/18 06:50 Absolute Eosinophils 0.31 k/cumm (0.0-0.7) 10/07/18 06:50 Absolute Basophils 0.06 k/cumm (0.0-0.2) 10/07/18 06:50 Sodium 142 mmol/L (136-145) 10/07/18 06:50 Potassium 3.6 mmol/L (3.5-5.1) 10/07/18 06:50 Chloride 108 mmol/L (98-107) H 10/07/18 06:50 Carbon Dioxide 23.6 mmol/L (21.0-32.0) 10/07/18 06:50 10.4 mmol/L (3-11) 10/07/18 06:50 BUN 15 mg/dL (7-18) 10/07/18 06:50 1.13 mg/dL (0.55-1.02) H 10/07/18 06:50 48.48 (mL/min/1.73m2) 10/07/18 06:50 Glucose 270 mg/dL (70-100) H 10/07/18 06:50 1.0 mmol/L (0.6-1.4) 10/06/18 11:37 Calcium 7.9 mg/dL (8.5-10.1) L 10/07/18 06:50 Magnesium 1.7 mg/dL (1.8-2.4) L 10/07/18 06:50 0.5 mg/dL (0.2-1.0) 10/06/18 09:09 AST 19 U/L (15-37) 10/06/18 09:09 ALT 39 U/L (14-59) 10/06/18 09:09 235 U/L (46-116) H 10/06/18 09:09 8.4 g/dL (6.4-8.2) H 10/06/18 09:09 3.6 g/dL (3.4-5.0) 10/06/18 09:09 Yellow (Yellow) 10/06/18 11:45 Clear (Clear) 10/06/18 11:45 6.0 (5-8) 10/06/18 11:45 Ur Specific [place] 1.015 (1.005-1.025) 10/06/18 11:45 30 mg/dL (Negative) H 10/06/18 11:45 15 mg/dL (Negative) H 10/06/18 11:45 Small (Negative) H 10/06/18 11:45 Negative (Negative) 10/06/18 11:45 Negative (Negative) 10/06/18 11:45 0.2 EU/dL (Up TO 0.2) 10/06/18 11:45 Ur Leukocyte Esterase Small (Negative) H 10/06/18 11:45 10-20 (0-2) H 10/06/18 11:45 10-20 HPF (0-5) 10/06/18 11:45 Ur Epithelial Cells Many HPF (Negative) 10/06/18 11:45 Few amorphous HPF (Negative) 10/06/18 11:45 Few HPF (Negative) 10/06/18 11:45 Negative LPF (Negative) 10/06/18 11:45 Trace (Negative) 10/06/18 11:45 Negative (Negative) 10/06/18 11:45 Ur Culture Indicated? No/sq. contamination 10/06/18 11:45 500 mg/dL (Negative) H 10/06/18 11:45
[2018-10-07] MEDS: cefTRIAXone 2 GM/50 ML BAG IVPB (11:54)
--- NOTE | 2018-10-07 12:18 | INITIAL_ITS ---
- If Service Date Differs Date of service: 10/07/18 Time of Service: 12:18 Care Management Initial Assess REASON FOR HOSPITALIZATION:: Nausea/Vomiting, recent hospitalization for JAY, and Nephrostomy tube placement and stent placement PAST MEDICAL HISTORY/PAST SURGICAL HISTORY:: Medical: CAD, diabetes, GERD; Sarcoidosis; Sagastume esophagus. CAD (coronary artery disease); Cardiac murmur; DM (diabetes mellitus). Fibromyalgia; GERD (gastroesophageal reflux disease); Hiatal hernia; Hyperlipidemia (Acute); Hypothyroidism; Sarcoidosis. 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 She lives with her , Maurice, at their home in [place]. One daughter, Loren hodges, lives nearby in [place]. Independent at baseline. CURRENT FUNCTIONAL STATUS:: Samantha, is engaged in coversation during assessment. She states she felt she had what she needed when she went home at time of last discharge. She is wondering if she may have needed home health to assess her at home. She states she has a history of n/v and thought this was another episode. She does have an appointment with this week on plan to have a cystoscope and stent removal. She reports she is feeling better and continues to not need services at home. ADVANCE DIRECTIVES:: None on file - CM will offer forms. Has patient been provided with information about the portal?: Yes Did the patient sign up for the portal?: No CODE STATUS:: Full Code INSURANCE COVERAGE / FINANCIAL ISSUES:: [employer] CURRENT HOME/COMMUNITY SERVICES/EQUIPMENT:: Outpatient services with Urology. PRIMARY CARE PHYSICIAN:: at [facility] POTENTIAL DISCHARGE NEEDS:: Follow-up appointment with urology, and primary care. PATIENT/FAMILY EDUCATION NEEDS:: Discharge instructions, limitations, follow-up plan of care, ask me 3 and self-management. ANTICIPATED BARRIERS TO DISCHARGE:: None identified. TRANSPORTATION:: Via private car with family when medically ready. PLAN:: Samantha is currently receiving IV antibiotics. She will be discharged home when she is medically ready and follow-up with urology as directed. No additional services will be needed. CM to continue to provide support discharge planning.
[2018-10-07 12:32] VITALS: BP 129/81; PULSE 78; RESP 20; TEMP 36; O2SAT 96
[2018-10-07 15:52] VITALS: BP 127/79; PULSE 74; RESP 18; TEMP 36.5; O2SAT 94
[2018-10-07] MEDS: Atorvastatin 40 MG TAB 80 MG PO (20:39)
[2018-10-08 00:05] VITALS: BP 125/66; PULSE 79; RESP 17; TEMP 36.5; O2SAT 95
[2018-10-08 07:15] VITALS: BP 128/71; PULSE 64; RESP 17; TEMP 36.9; O2SAT 98
[2018-10-08 07:16] LABS: Abs Immature Grans 0.02 k/cumm (0.0-0.09); Absolute Basophil Count 0.04 k/cumm (0.0-0.2); Absolute Eosinophil Count 0.41 k/cumm (0.0-0.7); Absolute Lymphocyte Count 2.58 k/cumm (1.2-3.4); Absolute Monocyte Count 0.39 k/cumm (0.11-0.7); Absolute Neutrophil Count 3.98 k/cumm (1.2-6.7); Basophils % 0.5; Eosinophils % 5.5; HCT 35.3 % (36.0-46.0); HGB 11.3 g/dL (12.0-15.5); Immature Grans % 0.3; Lymphocytes % 34.8; Mean Corpuscular Hemoglobin 28.1 pg (27.0-33.0); Mean Corpuscular Volume 87.8 fL (80-95); Mean Platelet Volume 10.5 fL (8.0-11.0); Monocytes % 5.3; Neutrophils % 53.6; Platelet Count 411 x1000/uL (130-400); RBC 4.02 m/cumm (4.00-5.20); RBC Distribution Width 13.4 % (11.7-14.6); White Blood Cell Count 7.42 k/cumm (4.4-10.8)
[2018-10-08 07:34] LABS: Anion Gap 11.1 mmol/L (3-11); BUN 15 mg/dL (7-18); CO2 22.9 mmol/L (21.0-32.0); CREATININE 1.13 mg/dL (0.55-1.02); Calcium 8.6 mg/dL (8.5-10.1); Chloride 108 mmol/L (98-107); Estimated GFR 48.48 (mL/min/1.73m2); Glucose 123 mg/dL (70-100); Magnesium 1.7 mg/dL (1.8-2.4); Potassium 3.8 mmol/L (3.5-5.1); Sodium 142 mmol/L (136-145)
[2018-10-08] MEDS: Isosorbide Mononitrate 30 MG TABCR 60 MG PO (07:51)
[2018-10-08] MEDS: Metoprolol CR 50 MG TABCR PO (07:51)
[2018-10-08] MEDS: Clopidogrel 75 MG TAB PO (07:51)
[2018-10-08] MEDS: Omeprazole 20 MG CAPCR PO (07:52)
[2018-10-08] MEDS: Heparin 5,000 UNITS/ML VIAL 5000 UNITS SC (07:52)
[2018-10-08] MEDS: POTASSIUM CHLORIDE 20 MEQ, POTASSIUM CHLORIDE 10 MEQ 30 MEQ PO (09:30)
[2018-10-08] MEDS: Magnesium Oxide 400 MG TAB 800 MG PO (09:30)
--- NOTE | 2018-10-08 10:18 | CMDISCH_ITS ---
LACE Index Scoring Tool - Questions: Length of Stay (in days): 2 Acuity (Admit via E.D.?): Yes Comorbidities: Diabetes w/o Complication E.D. Visits: 2 - Answers: Total Score: 8 Risk of Readmission: Low Risk Care Management Discharge Reason for Hospitalization: Nausea/Vomiting, recent hospitalization for JAY, and Nephrostomy tube placement and stent placement Discharge Plan: Samantha will be discharged home when ready per MD. She will follow up with her outpatient providers and plan of care as prescribed. She will [place] via private vehicle with her . Patient/Family Education Needs: Review discharge instructions, discuss Ask Me Three.
--- NOTE | 2018-10-08 11:52 | DSE_ITS ---
Date of service: 10/08/18 Time of Service: 11:52 DS: Diagnosis Discharge Diagnosis (1) Nausea: Status: Acute (2) Hydronephrosis, left: Status: Acute (3) DM (diabetes mellitus): Status: None (4) UTI (urinary tract infection): Status: Acute (5) JAY (acute kidney injury): Status: Acute (6) HTN (hypertension): Status: Chronic Discharge Plan Disposition Patient Disposition: HOME Condition: Stable Discharge Details Chief Complaint: Nausea/Vomit/Diar Clinical Impression: Acute hyperglycemia, DKA (diabetic ketoacidoses), Complicated urinary tract infection Reason For Visit: NAUSEA, VOMITING, DKA, HYDRONEPHROSIS Admit Date/Time: 10/06/18 12:46 Admit Provider: Kevin Zhang Attending Provider: Kevin Zhang Primary Care Provider: Haylee Baptiste V ED Provider: Charanjit Durham Hospital Course Hospital Course: Chief Complaint: Nausea, Vomiting HPI: 63 year old diabetic woman, being admitted from [facility] Emergency Department on 10/06 with a diagnosis of Nausea, Vomiting, Hyperglycemia and abnormal urinalysis. Mrs. Selam Velazquez has a Past Medical History significant for IDDM, CAD, GERD, Hypothyroidism, HTN, and Fibromyalgia. She was just hospitalized here at [facility] between September 24 - with a left sided ureteral obstruction that did not respond to initial Ureteral Stenting, eventually requiring placement of a Percutaneous Nephrostopmy Tube at [facility]. She also had evidence of initial Hyperglycemia and JAY, both improved prior to discharge. Her urinalysis did not support infection on 2 seperate checks. Of note, as her blood sugar had significantly improved and was borderline low, she was discharged with a significantly modified home regimen for her diabetes. Following discharge Mrs. Selam Velazquez reported daily improvement in her symptoms, with stability in her blood sugars in the 100-200 range, but with onset of nausea and vomiting at midnight on the night prior to admission that persisted through to the next morning. Although she reports intermittent bouts of nausea and vomiting in the past, she reports that they do had not previously persisted this long. Her work- up in the ED was pertinent for leukocytosis, JAY with a creatinine mildly above baseline, and hyperglycemia. Her urinalysis showed small LE with 10-20 WBCs (also with many epithelial cells), and CT shows mild persistent left sided hydronephrosis as well as a thickened bladder wall potentially on the basis of infection or inflammation. Also noted to be tachycardic, but not hypotensive or febrile. She was referred for admission for further evaluation and treatment. This morning Mrs. Selam Velazquez reports continued improvement and is at her baseline. Her Blood Cultures are without growth, and her urine culture shows a mixed Gram Positive Zenia that was thought likely contaminent. Her leukocytosis remains resolved, and her creatinine unchanged and near baseline. No overnight events reported. She has remained afebrile through the entirety of her hospitalization. Hospital Course: (1) Nausea: Persistent nausea and vomiting, with evidence of mild dehydration, leukocytosis, and Hyperglycemia - all resolved with hydration. Although the patient was also treated for al potential UTI, culture results did not support a clear cut infection. - Symptoms have resolved. Of note, patient reports similiar symptoms once every 1-2 months, now ongoing for a number of years. Question potential development of Gastroparesis in uncontrolled diabetic. Will recommend outpatient GI Follow-up, and obtain Gastric Emptying Study to be obtained as an outpatient. - Doubt UTI per culture results - however, does have abnormal Urinalysis, has undergone instrumentation, and does have a thickened bladder wall on CT (either on basis of infection or inflammation, with recent cystoscopy). Growth of mixed Gram Positives - received 2 days of Ceftriaxone - will conclude with an additional 5 day course of TMP-SMX and monitor renal function carefully. (2) Hydronephrosis, left: Persistent but mild left sided hydronephrosis despite large left ureteral stent and PCN placement - no further flank or abdominal pain reported, and mild hydronephrosis appears unchanged from prior and with evidence of good left nephrostomy output. - Continue to monitor renal function and UOP. Appears stable. Follow-up with urology as previously planned (appointment is in 3 days). Creatinine improved as well, stable, and near baseline. (3) DM (diabetes mellitus): Previously on higher dose basal insulin, with Januvia, Byetta, and Glipiz anita also on board. Patient exhibited borderline hypoglycemia last hospitalization due to poor PO intake, despite witholding of Byetta, Januvia, and Glipizide. She was discharged on essentially half-dose basal insulin only, without any other agents on board, and reports blood sugars stable in the 100- 200 range. Initial hyperglycemia was in the setting of dehydration and potential infeciton. - Continue current dose of Detemir and titrate as outpatient. (4) UTI (urinary tract infection): As above. (5) JAY (acute kidney injury): Likely due to pre-renal azotemia/dehydration in setting of nausea, vomiting, and poor PO intake. Appears improving with hydration. - Creatinine improved, stabilized, and at or near baseline. Repeat renal function as outpatient. (6) HTN (hypertension): Continue BB, Imdur. Patient's SBP has been in the 120-140's over the last 48 hours. Will continue to hold ARB given recent JAY, and recommend reinitiation as an outpatient. (7) DVT prophylaxis: Was maintained on SC Heparin. Home Meds and New Rx's Prescriptions: New sulfamethoxazole-trimethoprim [Bactrim DS] 800-160 mg tablet 1 tab PO BID Qty: 10 RF: 0 Continued tramadol [Ultram] 50 MG tablet 50 mg PO Q6H PRN RF: 0 nitroglycerin [Nitrostat] 0.4 MG tablet, sublingual 0.4 mg Sublingual DIRECTED RF: 0 albuterol sulfate 8.5 GM HFA aerosol inhaler 1 - 2 puff Inhalation Q4H PRN RF: 0 clopidogrel [Plavix] 75 MG tablet 75 mg PO DAILY Qty: 30 RF: 6 (DME) blood sugar diagnostic [OneTouch Ultra Test] 1 EACH strip 1 ea Topical TID RF: 0 omeprazole [Prilosec] 20 MG capsule,delayed release(DR/EC) 20 mg PO BID RF: 0 fluticasone propionate [Flonase Allergy Relief] 9.9 ML spray,suspension 9.9 ml NS DAILY RF: 0 DELICA LANCETS RF: 0 ONE TOUCH MINI GLUC RF: 0 isosorbide mononitrate 30 MG tablet extended release 24 hr 60 mg PO DAILY Qty: 60 RF: 3 triamcinolone acetonide 0.5 % cream 1 applic TP TID RF: 0 ondansetron HCl [Zofran] 4 mg tablet 4 mg PO .qq 4 HRS PRNRF: 0 atorvastatin [Lipitor] 80 mg tablet 80 mg PO DAILY RF: 0 benzonatate [Tessalon Perles] 100 mg capsule 100 mg PO TID PRNRF: 0 Novolog U-100 Insulin aspart 100 unit/mL solution 5 unit SC .WITH MEAL RF: 0 metoprolol succinate 25 mg tablet extended release 24 hr 50 mg PO DAILY Qty: 45 RF: 3 Levemir FlexTouch U-100 Insuln 100 unit/mL (3 mL) Insulin Pen 25 units subcut BID Qty: 0 RF: 0 hydrocodone-acetaminophen [Vicodin] 5-300 mg tablet 1 tab PO Q6H PRN (Reason: pain) Qty: 30 RF: 0 Discontinued nabumetone 750 mg tablet 750 mg PO BID RF: 0 ibuprofen 800 mg tablet 800 mg PO BID RF: 0 losartan 100 mg tablet 50 mg PO DAILY RF: 0 Discharge Instructions Instructions: Acute Nausea and Vomiting (DC), Acute Nausea and Vomiting (GEN) Stand Alone Forms: Nursing Discharge Form Referrals: Haylee Baptiste MD [Primary Care Provider] - Activity:: No Strenuous Activity Equipment/Supplies:: No Equipment Needed Diet:: Carb Counting Discharge Orders Discharge Orders: Discharge Order (Routine); Ordered 10/08/18 Ordered By: Kevin Zhang Other Ambulatory Orders: Nuclear Medicine Stress Test (Outpt) (ONCE) Timeframe: 20181022 Location: None Selected Ordered By: Kevin Zhang DS: Data Vitals/I&O Vitals and I&O: Vital Signs Temperature 36.9 C 10/08/18 07:15 Temperature Source Tympanic 10/08/18 07:15 Pulse 64 10/08/18 07:15 Pulse Rhythm Regular 10/08/18 07:45 Respiratory Rate 17 10/08/18 07:15 Respiratory Effort Non-Labored 10/08/18 07:45 Respiratory Depth Normal 10/08/18 07:45 Respiratory Pattern Normal 10/08/18 07:45 Blood Pressure 128/71 10/08/18 07:15 Pulse Oximetry 98 10/08/18 07:15 Oxygen Delivery Method Room Air 10/08/18 07:15 Oxygen Flow Rate 0 10/08/18 07:15 Pain Level 0 10/08/18 07:15 Intake & Output 10/07/18 10/07/18 10/08/18 11:59 23:59 11:59 Intake Total 2463.750 / 3663.750 1200 / 3663.750 240 / 240 Output Total 1400 / 2200 800 / 2200 1500 / 1500 Balance 1063.750 / 1463.750 400 / 1463.750 -1260 / -1260 Weight 79.6 kg 79.8 kg Intake: IV 1243.750 / 1243.750 Oral 1220 / 2420 1200 / 2420 240 / 240 Output: Urine 1400 / 2200 800 / 2200 1500 / 1500 Other: Urine Color Pale Yellow Yellow Yellow Urine Appearance Clear Clear Clear Urine Odor Normal Normal Comment Dressing CDI. Dressing CDI. Stool Size Moderate Moderate Stool Characteristics Soft Soft Brown Brown Voiding Methods Toilet Toilet Toilet Completed studies during hospitalization [Text1]: EXAM: CT Abdomen and Pelvis Without Contrast EXAM DATE/TIME: 10/06/2018 9:56 AM CLINICAL HISTORY: 63 years old, female; Other: Abd pain, epigas, nephrostomy, stent, leukocytosis; Prior surgery; Surgery date: <1 month; Surgery type: Nephrostomy tube 09/27. Stent after nephrostomy tube. Cholecystectomy years ago TECHNIQUE: Imaging protocol: Computed tomography of the abdomen and pelvis without contrast. Radiation optimization: All CT scans at this facility use at least one of these dose optimization techniques: automated exposure control; mA and/or kV adjustment per patient size (includes targeted exams where dose is matched to clinical indication); or iterative reconstruction. COMPARISON: CT ABDOMEN PELVIS WO 09/22/2018 12:24 PM FINDINGS: Mediastinum: Small hiatal hernia. Liver: Hepatomegaly 16 cm Gallbladder and bile ducts: Status post cholecystectomy. Pancreas: Normal. No ductal dilation. Spleen: Normal. No splenomegaly. Adrenals: Normal. No mass. Kidneys and ureters: Nephrostomy tube terminates in the left renal collecting system.. Left ureteral stent extends from the left renal collecting system to the bladder. Mild hydronephrosis persists in the left kidney. Stomach and bowel: Unremarkable. No obstruction. No mucosal thickening. Appendix: No evidence of appendicitis. Intraperitoneal space: Normal. No free air. No significant fluid collection. Vasculature: Unremarkable. No abdominal aortic aneurysm. Lymph nodes: Unremarkable. No enlarged lymph nodes. Bladder: The bladder wall measures 6 mm. This is nonspecific and may represent inflammation or infection. Neoplastic process and neurogenic bladder are included in the differential. Reproductive: Unremarkable as visualized. Bones/joints: Unremarkable. No acute fracture. Soft tissues: Unremarkable. IMPRESSION: 1. Nephrostomy tube terminates in the left renal collecting system.. 2. Left ureteral stent extends from the left renal collecting system to the bladder. 3. Mild hydronephrosis persists in the left kidney. 4. The bladder wall measures 6 mm. This is nonspecific and may represent inflammation or infection. Neoplastic process and neurogenic bladder are included in the differential. --------- Labs on day of discharge: Labs from last 24 hours 10/08/18 10/08/18 06:45 06:45 WBC 7.42 RBC 4.02 Hgb 11.3 L Hct 35.3 L MCV 87.8 MCH 28.1 MCHC 32.0 RDW 13.4 Plt Count 411 H MPV 10.5 Immature Gran % 0.3 Neutrophils % 53.6 Lymphocytes % 34.8 Monocytes % 5.3 Eosinophils % 5.5 Basophils % 0.5 Absolute Neutrophils 3.98 Absolute Lymphocytes 2.58 Absolute Monocytes 0.39 Absolute Eosinophils 0.41 Absolute Basophils 0.04 Sodium 142 Potassium 3.8 Chloride 108 H Carbon Dioxide 22.9 Anion Gap 11.1 H BUN 15 Creatinine 1.13 H Estimated GFR/1.73 m2 48.48 Glucose 123 H D Calcium 8.6 Magnesium 1.7 L Preliminary micro results at discharge 10/06/18 12:01 Blood Culture - Preliminary Blood NO GROWTH 24 HOURS 10/06/18 11:37 Blood Culture - Preliminary Blood NO GROWTH 24 HOURS PFSH Medical History Sagastume esophagus CAD (coronary artery disease) Cardiac murmur DM (diabetes mellitus) Fibromyalgia GERD (gastroesophageal reflux disease) Hiatal hernia Hydronephrosis, left (Acute) Hyperlipidemia (Acute) Hypothyroidism Sarcoidosis Surgical History Cubital tunnel syndrome (Acute) with repair egd/colo (10/20/15) Hx of cholecystectomy (Chronic) Hx of Meckel's diverticulum (Acute) with surgery TMJ (temporomandibular joint syndrome) (Acute) with surgical repair Social History Smoking/Tobacco Use Status: Never Alcohol Intake: never Drug use: Never Do you feel safe at home: Yes Do you feel safe in your relationship?: Yes
[2018-10-08] MEDS: cefTRIAXone 2 GM/50 ML BAG IVPB (11:55)
[2018-10-08] MEDS: Insulin Aspart 300 UNITS/3 ML PEN SC (11:55)
== END 2018-10-08 14:38 | disposition home or self-care (01) | DRG 392 ==
LOC: ER 13:13 → MS 10-08 11:59
PROVIDERS: Admitting Provider Internal Medicine; Emergency Provider Student in an Organized Health Care Education/Training Program; PCP Family Medicine; Visit Provider Internal Medicine
DX: N17.9 Acute kidney failure, unspecified (principal); R11.2 Nausea with vomiting, unspecified; N13.6 Pyonephrosis; E86.0 Dehydration; R39.2 Extrarenal uremia; E11.65 Type 2 diabetes mellitus with hyperglycemia; I10 Essential (primary) hypertension; Z79.4 Long term (current) use of insulin; E03.9 Hypothyroidism, unspecified; Z93.6 Other artificial openings of urinary tract status
CPT/HCPCS: 36415; 36416; 80048; 80053; 82962; 87040; 96361; 96365; 99222; 99232; 99239; 99285; 74176; 81003; 81015; 83605; 83735; 85025; 87086; 99217; 99219; 99225; 99284; J0696; J1644; J3490

== ENCOUNTER 2018-10-11 08:14 | Day surgery (SDC) | payer OTHER, SELFPAY ==
[2018-10-11] VITALS (7 sets, daily range): BP systolic 92–145; BP diastolic 44–89; PULSE 76–91; RESP 9–18; TEMP 36.1–36.5; O2SAT 94–99
[2018-10-11] MEDS: Lactated Ringers 1,000 ML 80 ML IV (09:25)
--- NOTE | 2018-10-11 09:26 | W.PM.HP.N ---
Date of service: 10/11/18 Time of Service: 09:26 Assessment and Plan (1) Hydronephrosis, left: Current visit: No Status: Acute We will plan on removing the ureteral stent and doing ureteroscopy looking for any potential obstructing lesions. If no obstructing lesion is identified, we can begin clamping her nephrostomy tube. If she tolerates the clamping of the tube, we can then remove the nephrostomy tube as an outpatient. History of Present Illness Chief Complaint: Left hydronephrosis Narrative: This is a 63-year-old diabetic woman who was recently hospitalized with left-sided flank pain and hydronephrosis. No obstructing stone was identified and we suspected that she may have had a sloughed renal papilla. We placed a ureteral stent to drain her kidney. Initially, she did well, but her pain returned 24 hours later and she had persistent hydronephrosis. She then had a nephrostomy tube placed and she improved clinically. She developed nausea and vomiting over the weekend and required readmission to the hospital. Her cultures again showed no bacterial growth. She presents now for removal of the stent and ureteroscopy looking for potential obstructing lesions. If no obstructing lesions are found, we can give a trial of nephrostomy tube clamping to see how she does before removing the nephrostomy tube. Review of Systems Review of Systems No fevers or chills No vision change or dysphasia No diabetes or thyroid No shortness of breath, cough or hemoptysis No chest pain or palpitations No nausea, vomiting, hepatitis, ulcers, jaundice, diarrhea or constipation No seizures, strokes or peripheral neuropathy No bleeding disorders or anemia No gout or arthralgia PFSH Social History Smoking/Tobacco Use Status: Never Alcohol Intake: never Drug use: Never Do you feel safe at home: Yes Do you feel safe in your relationship?: Yes Meds Home Medications Medication Instructions Recorded Confirmed Type albuterol sulfate 1 - 2 puff INHALATION Q4H PRN 10/14/13 10/11/18 History inhaler nitroglycerin [Nitrostat] 0.4 mg SUBLINGUAL DIRECTED 10/14/13 10/11/18 History tramadol [Ultram] 50 mg PO Q6H PRN tab-cap 10/14/13 10/11/18 History clopidogrel [Plavix] 75 mg PO DAILY #30 tab-cap 10/22/13 10/11/18 History Delica Lancets 01/05/15 History One Touch Mini Gluc 01/05/15 History blood sugar diagnostic [OneTouch strip 01/05/15 09/02/16 History Ultra Test] fluticasone propionate [Flonase 9.9 ml NS DAILY 01/05/15 10/11/18 History Allergy Relief] omeprazole [Prilosec] 20 mg PO BID tab-cap 01/05/15 10/11/18 History isosorbide mononitrate 60 mg PO DAILY #60 tab-cap 01/26/15 10/11/18 History atorvastatin 80 mg tablet 80 mg PO DAILY 03/06/18 10/11/18 History benzonatate 100 mg capsule 100 mg PO TID PRN 03/06/18 10/11/18 History insulin aspart U-100 100 unit/mL 5 unit SC .WITH MEAL ml 03/06/18 10/11/18 History subcutaneous solution metoprolol succinate 25 mg 50 mg PO DAILY #45 tab-cap 03/06/18 10/11/18 History tablet,extended release 24 hr ondansetron HCl 4 mg tablet 4 mg PO .qq 4 HRS PRN tab 03/06/18 10/11/18 History triamcinolone acetonide 0.5 % 1 applic TP TID 03/06/18 10/11/18 History topical cream Levemir FlexTouch U-100 Insuln 25 units SUBCUT BID #0 ml 09/28/18 10/11/18 Rx hydrocodone-acetaminophen [Vicodin] 1 tab PO Q6H PRN #30 tab 09/28/18 10/11/18 Rx sulfamethoxazole-trimethoprim 1 tab PO BID #10 tab 10/08/18 10/11/18 Rx [Bactrim DS] Allergies Allergy/AdvReac Type Severity Reaction Status Date / Time Iodinated Contrast Media Allergy Severe Anaphylaxsi Unverified 10/06/18 08:55 [Iodinated Contrast Media - s IV Dye] iodine Allergy Severe Unverified 10/06/18 08:55 shellfish derived Allergy Severe Unverified 10/09/18 15:01 amlodipine Allergy Intermediate Verified 10/06/18 08:55 codeine Allergy Unverified 10/06/18 08:55 hepatitis B virus vaccine Allergy Unverified 10/06/18 08:55 lisinopril Allergy Unverified 10/06/18 08:55 meperidine HCl [From Demerol] Allergy Unverified 10/06/18 08:55 metformin HCl Allergy Unverified 10/06/18 08:55 [From Glucophage] prednisone Allergy Unverified 10/06/18 08:55 meperidine AdvReac Severe Cardiac Unverified 10/06/18 08:55 Dysrythmia morphine AdvReac Severe Nausea Unverified 10/06/18 08:55 oxaprozin [From Daypro] AdvReac Severe ams Unverified 10/06/18 08:55 sulindac [From Clinoril] AdvReac Intermediate ams Unverified 10/06/18 08:55 Exam Narrative Exam Narrative: She is in no obvious distress. She is cooperative. Her vital signs are documented elsewhere. Her chest wall motion is normal. Her lungs are clear. Cardiac Cardiac exam shows a regular rate and rhythm. Her abdomen is soft with no masses. There is a nephrostomy tube draining clear urine. She is awake, alert and oriented. Results Last Vital Signs Temp 36.1 C L 10/11/18 08:51 Pulse 91 H 10/11/18 08:51 Resp 18 10/11/18 08:51 BP 143/89 H 10/11/18 08:51 Pulse Ox 98 10/11/18 08:51
[2018-10-11] MEDS: ceFAZolin 2 GM/50 ML BAG IVPB (10:09)
[2018-10-11] MEDS: Lidocaine 2% Jelly 6 ML SYR (10:35)
[2018-10-11] MEDS: Omnipaque 300 MG/ML 50 ML BTL (10:35)
--- NOTE | 2018-10-11 10:40 | W.PM.DSUDISC ---
Discharge Plan Disposition Patient Disposition: HOME Condition: Stable Discharge Details Attending Provider: Raman Phelps Primary Care Provider: Haylee Baptiste V Home Meds and New Rx's Prescriptions: No Action tramadol [Ultram] 50 MG tablet 50 mg PO Q6H PRN RF: 0 nitroglycerin [Nitrostat] 0.4 MG tablet, sublingual 0.4 mg Sublingual DIRECTED RF: 0 albuterol sulfate 8.5 GM HFA aerosol inhaler 1 - 2 puff Inhalation Q4H PRN RF: 0 clopidogrel [Plavix] 75 MG tablet 75 mg PO DAILY Qty: 30 RF: 6 (DME) blood sugar diagnostic [OneTouch Ultra Test] 1 EACH strip 1 ea Topical TID RF: 0 omeprazole [Prilosec] 20 MG capsule,delayed release(DR/EC) 20 mg PO BID RF: 0 fluticasone propionate [Flonase Allergy Relief] 9.9 ML spray,suspension 9.9 ml NS DAILY RF: 0 DELICA LANCETS RF: 0 ONE TOUCH MINI GLUC RF: 0 isosorbide mononitrate 30 MG tablet extended release 24 hr 60 mg PO DAILY Qty: 60 RF: 3 triamcinolone acetonide 0.5 % cream 1 applic TP TID RF: 0 ondansetron HCl [Zofran] 4 mg tablet 4 mg PO .qq 4 HRS PRNRF: 0 atorvastatin [Lipitor] 80 mg tablet 80 mg PO DAILY RF: 0 benzonatate [Tessalon Perles] 100 mg capsule 100 mg PO TID PRNRF: 0 Novolog U-100 Insulin aspart 100 unit/mL solution 5 unit SC .WITH MEAL RF: 0 metoprolol succinate 25 mg tablet extended release 24 hr 50 mg PO DAILY Qty: 45 RF: 3 Levemir FlexTouch U-100 Insuln 100 unit/mL (3 mL) Insulin Pen 25 units subcut BID Qty: 0 RF: 0 hydrocodone-acetaminophen [Vicodin] 5-300 mg tablet 1 tab PO Q6H PRN (Reason: pain) Qty: 30 RF: 0 sulfamethoxazole-trimethoprim [Bactrim DS] 800-160 mg tablet 1 tab PO BID Qty: 10 RF: 0 Discharge Instructions Additional Instructions: Leave nephrostomy tube clamped - unclamp and allow to drain prn pain/nausea/vomiting If tolerating nephrostomy tube clamping, F/U in my office Monday or Monday for nephrostomy tube removal Activity:: Activity as Tolerated Shower/Bathe:: 24 hours Diet:: As Tolerated Discharge Orders Discharge Orders: Discharge Order (Routine); Ordered 10/11/18 Ordered By: Raman Phelps DS: Diagnosis Discharge Diagnosis (1) Hydronephrosis, left: Status: Acute
--- NOTE | 2018-10-11 10:44 | DI.RAD_ITS ---
SYMPTOM/DIAGNOSIS: LEFT RETROGRADE C-ARM FLUOROSCOPY: 10/11 Fluoroscopy Time: 25.9 SEC C-arm fluoroscopy was utilized by Dr. Phelps during reported retrograde ureterogram. Please see Dr. Phelps's procedure note.
--- NOTE | 2018-10-12 09:43 | ROE_ITS ---
DATE OF PROCEDURE: October 11, 2018 PREOPERATIVE DIAGNOSIS: Left hydronephrosis. POSTOPERATIVE DIAGNOSIS: Left hydronephrosis. PROCEDURE: Cystoscopy; remove left ureteral stent; left retrograde pyelogram; left flexible ureteros copy. SURGEON: Raman Phelps M.D. ANESTHESIA: General. COMPLICATIONS: None. ESTIMATED BLOOD LOSSS: Minimal. HISTORY: This is a 63-year-old woman who was hospitalized with left-sided flank pain, nausea and vom iting. She was found to have left hydronephrosis, but there was no evidence of an obstructing stone. When she did not improve clinically just with hydration and antibiotics, we placed a left ureteral st ent. She had improvement of her symptoms in the first 24 hours, but then her symptoms returned. On ultrasound her hydronephrosis persisted in spite of the ureteral stent being in the appropriate locat ion. She then had a nephrostomy tube placed and ultimately her symptoms improved. She presents now for removal of the left ureteral stent. We will plan on doing ureteroscopy looking for any obstructing ureteral lesion. If no obvious obstruction is found, we will begin clamping her nephrostomy tube with plans on removing it. OPERATIVE REPORT: The patient was brought to the operating room on 10/11/18. After successful inducti on of general anesthesia, she was placed in the dorsal lithotomy position. Her nephrostomy tube was clamped. Her genitalia was prepped and draped. 2% Xylocaine jelly was then instilled into the ureth ra. A 22 Norwegian rigid cystoscope was passed through the urethra into the bladder. The bladder was inspec andra with a 30-degree lens. The left ureteral stent was grasped in an alligator forceps and brought out to the level of the ureth ral meatus. I then passed a Glidewire through the stent and removed the stent, leaving the wire in place. We passed a dual-lumen catheter over the wire and positioned a second wire up the left ureter. We ch ose one of the wires as a working wire and the second as a safety wire. I passed the flexible ureteroscope over the working wire and maneuvered the scope up to the upper ure ter. I then injected Omnipaque through the ureteroscope to outline the calyces and collecting system . We inspected each of the calyces and found no obvious obstructing lesions. We found no free-floating stones or debris. We withdrew the scope down the ureter and likewise found no ureteral narrowings, no stones and no obstructing lesions. We then watched under fluoroscopy and the contrast that was previously injected was able to drain michaela n the ureter freely. The scope was then removed. Based on the examination today I find no evidence of an obstructing uret eral lesion. We will plan on leaving her nephrostomy tube clamped. She will have the ability to unc lamp it if she develops flank pain. If she tolerates the tube clamping we should be able to safely remove her tube in the office early ne xt week. cc: Haylee Baptiste M.D.
== END 2018-10-11 12:40 | disposition home or self-care (01) ==
PROVIDERS: PCP Family Medicine; Visit Provider Urology
PROC: (CPT 52351; principal; 2018-10-11 10:00)
DX: N13.30 Unspecified hydronephrosis (principal); Z43.6 Encounter for attention to other artificial openings of urinary tract; E11.9 Type 2 diabetes mellitus without complications; K21.9 Gastro-esophageal reflux disease without esophagitis; I25.10 Atherosclerotic heart disease of native coronary artery without angina pectoris; I10 Essential (primary) hypertension
CPT/HCPCS: 52351; NC; 74420; J0690; J1885; J2405; J3010; Q9967

== ENCOUNTER 2018-10-16 00:23 | Outpatient (CLI) | payer OTHER, SELFPAY ==
--- NOTE | 2018-10-16 08:25 | DI.NM_ITS ---
SYMPTOMS/DIAGNOSIS: NAUSEA, R11.0 GASTRIC EMPTYING STUDY: The patient ingested a meal containing 0.96 mCi of technetium 99 labelled sulfur colloid. Gastric emptying quantitation shows one hour, 76% residual; two hours, 67% residual; and four hours, 9.6% residual. The findings are consistent with normal/unremarkable gastric emptying pattern.
== END 2018-10-16 00:43 ==
PROVIDERS: PCP Family Medicine; Visit Provider Internal Medicine
DX: R11.0 Nausea (principal)
CPT/HCPCS: 78265

== ENCOUNTER 2018-10-24 08:14 | Outpatient (CLI) | payer OTHER, SELFPAY ==
[2018-10-24 08:30] LABS: Abs Immature Grans 0.02 k/cumm (0.0-0.09); Absolute Basophil Count 0.04 k/cumm (0.0-0.2); Absolute Eosinophil Count 0.31 k/cumm (0.0-0.7); Absolute Lymphocyte Count 2.87 k/cumm (1.2-3.4); Absolute Monocyte Count 0.52 k/cumm (0.11-0.7); Absolute Neutrophil Count 6.11 k/cumm (1.2-6.7); Basophils % 0.4; Eosinophils % 3.1; HCT 38.3 % (36.0-46.0); HGB 12.6 g/dL (12.0-15.5); Immature Grans % 0.2; Lymphocytes % 29.1; Mean Corp. HGB Concentration 32.9 g/dL (32.0-36.0); Mean Corpuscular Hemoglobin 28.6 pg (27.0-33.0); Mean Corpuscular Volume 86.8 fL (80-95); Mean Platelet Volume 11.3 fL (8.0-11.0); Monocytes % 5.3; Neutrophils % 61.9; Platelet Count 306 x1000/uL (130-400); RBC 4.41 m/cumm (4.00-5.20); RBC Distribution Width 13.8 % (11.7-14.6); White Blood Cell Count 9.87 k/cumm (4.4-10.8)
[2018-10-24 09:32] LABS: Anion Gap 13.5 mmol/L (3-11); BUN 13 mg/dL (7-18); CO2 24.5 mmol/L (21.0-32.0); CREATININE 1.16 mg/dL (0.55-1.02); Calcium 8.7 mg/dL (8.5-10.1); Chloride 101 mmol/L (98-107); Estimated GFR 47.03 (mL/min/1.73m2); Glucose 267 mg/dL (70-100); Magnesium 1.6 mg/dL (1.8-2.4); Potassium 4.2 mmol/L (3.5-5.1); Sodium 139 mmol/L (136-145)
== END 2018-10-24 08:34 ==
PROVIDERS: PCP Family Medicine; Visit Provider Family Medicine
DX: E11.9 Type 2 diabetes mellitus without complications (principal); N13.30 Unspecified hydronephrosis; Z93.6 Other artificial openings of urinary tract status
CPT/HCPCS: 36415; 80048; 83735; 85025

== ENCOUNTER 2019-01-08 16:49 | Outpatient (REF) | payer OTHER, SELFPAY ==
[2019-01-08 22:21] LABS: Anion Gap 12.2 mmol/L (3-11); BUN 15 mg/dL (7-18); CO2 25.8 mmol/L (21.0-32.0); CREATININE 1.28 mg/dL (0.55-1.02); Calcium 9.1 mg/dL (8.5-10.1); Chloride 101 mmol/L (98-107); Estimated GFR 41.98 (mL/min/1.73m2); Glucose 426 mg/dL (74-106); Potassium 4.3 mmol/L (3.5-5.1); Sodium 139 mmol/L (136-145)
[2019-01-08 22:25] LABS: Hemoglobin A1C 10.3 % (4.5-6.2)
[2019-01-10 13:34] LABS: C-Peptide 5.2 ng/mL (1.1 - 4.4)
[2019-01-10 15:27] LABS: Fructosamine 422 mcmol/L (200 - 285)
== END 2019-01-08 17:09 ==
LOC: NCHCN 16:49
PROVIDERS: PCP Family Medicine; Visit Provider Family Medicine
DX: E11.9 Type 2 diabetes mellitus without complications (principal); N13.30 Unspecified hydronephrosis; R10.9 Unspecified abdominal pain; Z86.79 Personal history of other diseases of the circulatory system; I10 Essential (primary) hypertension
CPT/HCPCS: 80048; 86341; 82985; 83036; 84681

== ENCOUNTER 2019-01-09 08:12 | Outpatient (CLI) | payer OTHER, SELFPAY ==
--- NOTE | 2019-01-09 08:40 | DI.US_ITS ---
EXAM: US RENAL CLINICAL HISTORY: LT HYDRONEPHROSIS, N13.30, LT FLANK PAIN, R10.9 TECHNIQUE: Ultrasound performed using standard protocol. COMPARISON: CT ABDOMEN PELVIS WO from 10/06/2018 FINDINGS: The right kidney measures 8.9 cm in length. The left kidney measures 9.2 cm in length. There is no evidence hydronephrosis. The previously noted left ureteral stent and nephrostomy tube have been sandip enriqueta. No perinephric collection is seen. The bladder is mildly distended with a prevoid bladder volu me of 51 cc. There is no postvoid residual. Both ureteral jets were seen. No bladder masses or katelynn dder calcifications are seen. IMPRESSION: Renal ultrasound is within normal limits. No evidence of stones or hydronephrosis.
== END 2019-01-09 08:32 ==
PROVIDERS: PCP Family Medicine; Visit Provider Family Medicine
DX: N13.30 Unspecified hydronephrosis (principal); R10.32 Left lower quadrant pain; N32.89 Other specified disorders of bladder
CPT/HCPCS: 76770

== ENCOUNTER 2019-01-14 00:09 | Outpatient (CLI) | payer OTHER, SELFPAY ==
--- NOTE | 2019-01-14 07:50 | DI.RAD_ITS ---
EXAM: XR THORACIC SPINE COMPLETE INDICATION: BACK PAIN. COMPARISON: No exams were available for comparison TECHNIQUE: 2D digital imaging was performed. FINDINGS: The vertebral bodies are well maintained in height. There are small endplate osteophytes, greatest i n the midthoracic region. There is no significant scoliosis. There is no gross evidence of a lytic or blastic lesion. Heart size is normal. The visualized portions of the lungs appear clear. IMPRESSION: Mild to moderate degenerative changes
--- NOTE | 2019-01-14 07:51 | DI.RAD_ITS ---
EXAM: XR LUMBAR SPINE COMPLETE INDICATION: FLANK PAIN LEFT. COMPARISON: CT ABDOMEN PELVIS WO from 10/06/2018 TECHNIQUE: 2D digital imaging was performed. FINDINGS: The vertebral bodies and disc spaces are well maintained in height. There are minimal endplate osteo phytes. No spondylolysis, spondylolisthesis or scoliosis is seen. There is some spurring at the inf erior SI joints and bilateral hip joints. Surgical clips are noted in the right quadrant. There is a calcification in the right lower pelvis which projects in the expected location of the ureterovesic al junction. This could represent a UVJ calculus. Clinical correlation is recommended. IMPRESSION: Mild degenerative changes of the spine. Question of a right ureterovesical junction calculus.
== END 2019-01-14 00:29 ==
PROVIDERS: PCP Family Medicine; Visit Provider Family Medicine
DX: R10.32 Left lower quadrant pain (principal); M47.815 Spondylosis without myelopathy or radiculopathy, thoracolumbar region; M54.6 Pain in thoracic spine
CPT/HCPCS: 72072; 72110

== ENCOUNTER 2019-01-22 18:32 | Emergency (ER) | payer OTHER, SELFPAY ==
[2019-01-22 18:36] VITALS: BP 173/80; PULSE 86; RESP 14; TEMP 36.8; O2SAT 95
--- NOTE | 2019-01-22 18:47 | ED.GENADUL_ITS ---
Discharge Plan Disposition Patient Disposition: HOME Condition: Good Discharge Details Chief Complaint: Orthopedic Clinical Impression: Acute pain of left wrist Primary Care Provider: Haylee Baptiste V ED Provider: Samuel Mata Home Meds and New Rx's Prescriptions: No Action tramadol [Ultram] 50 MG tablet 50 mg PO Q6H PRN RF: 0 nitroglycerin [Nitrostat] 0.4 MG tablet, sublingual 0.4 mg Sublingual DIRECTED RF: 0 albuterol sulfate 8.5 GM HFA aerosol inhaler 1 - 2 puff Inhalation Q4H PRN RF: 0 clopidogrel [Plavix] 75 MG tablet 75 mg PO DAILY Qty: 30 RF: 6 (DME) blood sugar diagnostic [OneTouch Ultra Test] 1 EACH strip 1 ea Topical TID RF: 0 omeprazole [Prilosec] 20 MG capsule,delayed release(DR/EC) 20 mg PO BID RF: 0 fluticasone propionate [Flonase Allergy Relief] 9.9 ML spray,suspension 9.9 ml NS DAILY RF: 0 DELICA LANCETS RF: 0 ONE TOUCH MINI GLUC RF: 0 isosorbide mononitrate 30 MG tablet extended release 24 hr 60 mg PO DAILY Qty: 60 RF: 3 triamcinolone acetonide 0.5 % cream 1 applic TP TID RF: 0 ondansetron HCl [Zofran] 4 mg tablet 4 mg PO .qq 4 HRS PRNRF: 0 atorvastatin [Lipitor] 80 mg tablet 80 mg PO DAILY RF: 0 benzonatate [Tessalon Perles] 100 mg capsule 100 mg PO TID PRNRF: 0 Novolog U-100 Insulin aspart 100 unit/mL solution 5 unit SC .WITH MEAL RF: 0 metoprolol succinate 25 mg tablet extended release 24 hr 50 mg PO DAILY Qty: 45 RF: 3 Levemir FlexTouch U-100 Insuln 100 unit/mL (3 mL) Insulin Pen 25 units subcut BID Qty: 0 RF: 0 hydrocodone-acetaminophen [Vicodin] 5-300 mg tablet 1 tab PO Q6H PRN (Reason: pain) Qty: 30 RF: 0 sulfamethoxazole-trimethoprim [Bactrim DS] 800-160 mg tablet 1 tab PO BID Qty: 10 RF: 0 Discharge Instructions Instructions: Wrist Sprain (ED) Additional Instructions: The x-ray shows no evidence of fracture however to be safe we will be placing your wrist. Please keep this on for the next week. If your symptoms do not improve with this conservative management you may need repeat x-ray. Please take Tylenol as needed for pain. If you notice any worsening of your symptoms, or any new symptoms such as vomiting, diarrhea, fever, chills, shortness of breath, chest pain, numbness, weakness, or fainting , please return immediately to the emergency department for reevaluation. Please follow up with your primary care provider as soon as possible for reassessment and reevaluation. As always, it was a pleasure participating in your medical care today. Referrals: Haylee Baptiste MD [Primary Care Provider] - Medical Decision Making This is a very pleasant 64-year-old female who presents today for evaluation of left wrist pain. She is right-hand dominant. Earlier today she fell and landed on her left wrist, she continued throughout the whole day working. Mild pain is present at the distal radius. No reproducible anatomical snuffbox tenderness however she does have reproducible pain at the snuffbox when the wrist is varus and valgus stress. Differential includes wrist sprain versus small fracture. We will get an x-ray give Tylenol. 7:11 PM The patient's x-ray shows no evidence of acute fracture however there is notable arthritic changes. I do feel that it is indicated to give a thumb spica wrist splint as she does have slight scaphoid tenderness. This may be secondary to chronic component, however with her history I do feel that we should protect for an acute issue. Recommend close follow-up with her PCP and potential repeat radiographs if her symptoms do not improve. I have extensively reviewed the treatment plan and discharge instructions with the patient. I have addressed all patient concerns at this time. The patient was made aware of what symptoms to monitor for that would warrant a return to the emergency department. Discussed the plan with the patient, they demonstrate verbal understanding and agreement with our assessment and plan at this time. FINDINGS: Bones/joints: Osteopenia. No fracture. No dislocation. Minor arthritic narrowing of the radial carpal joint, scaphoid trapezium joint, and trapezium 1st metacarpal joint. Soft tissues: No soft tissue swelling or foreign body. IMPRESSION: 1. Minor arthritic changes of the wrist at the radiocarpal joint, scaphoid trapezium joint, and 1st carpometacarpal joint. 2. No acute traumatic disruption. Thank you for allowing us to participate in the care of your patient. Dictated and Authenticated by: Unruly Naranjo MD 01/22/2019 7:07 PM Eastern Time ([place] & [place]) HPI General Date/Time Provider Initiated Documentation: 01/22/19 18:34 . HPI Narrative: This is a 64-year-old female who presents today for evaluation of left wrist pain. 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 She is right-hand dominant. Should not strike her head, she had no loss of cons ciousness. She is gone on throughout the rest of the day of work, she has had mild pain or tenderness in the left wrist, but no other pain. She denies hitting her head, she denies any numbness tingling or weakness. She denies any syncope. There is other complaints at this time. Related Data Home Medications Medication Instructions Recorded Confirmed albuterol sulfate 1 - 2 puff INHALATION Q4H PRN 10/14/13 10/11/18 inhaler nitroglycerin [Nitrostat] 0.4 mg SUBLINGUAL DIRECTED 10/14/13 10/11/18 tramadol [Ultram] 50 mg PO Q6H PRN tab-cap 10/14/13 10/11/18 clopidogrel [Plavix] 75 mg PO DAILY #30 tab-cap 10/22/13 10/11/18 Delica Lancets 01/05/15 One Touch Mini Gluc 01/05/15 blood sugar diagnostic [OneTouch strip 01/05/15 09/02/16 Ultra Test] fluticasone propionate [Flonase 9.9 ml NS DAILY 01/05/15 10/11/18 Allergy Relief] omeprazole [Prilosec] 20 mg PO BID tab-cap 01/05/15 10/11/18 isosorbide mononitrate 60 mg PO DAILY #60 tab-cap 01/26/15 10/11/18 atorvastatin 80 mg tablet 80 mg PO DAILY 03/06/18 10/11/18 benzonatate 100 mg capsule 100 mg PO TID PRN 03/06/18 10/11/18 insulin aspart U-100 100 unit/mL 5 unit SC .WITH MEAL ml 03/06/18 10/11/18 subcutaneous solution metoprolol succinate 25 mg 50 mg PO DAILY #45 tab-cap 03/06/18 10/11/18 tablet,extended release 24 hr ondansetron HCl 4 mg tablet 4 mg PO .qq 4 HRS PRN tab 03/06/18 10/11/18 triamcinolone acetonide 0.5 % 1 applic TP TID 03/06/18 10/11/18 topical cream Levemir FlexTouch U-100 Insuln 25 units SUBCUT BID #0 ml 09/28/18 10/11/18 hydrocodone-acetaminophen [Vicodin] 1 tab PO Q6H PRN #30 tab 09/28/18 10/11/18 sulfamethoxazole-trimethoprim 1 tab PO BID #10 tab 10/08/18 10/11/18 [Bactrim DS] Previous Rx's Medication Instructions Recorded Levemir FlexTouch U-100 Insuln 25 units SUBCUT BID #0 ml 09/28/18 hydrocodone-acetaminophen [Vicodin] 1 tab PO Q6H PRN #30 tab 09/28/18 sulfamethoxazole-trimethoprim 1 tab PO BID #10 tab 10/08/18 [Bactrim DS] Allergies Allergy/AdvReac Type Severity Reaction Status Date / Time Iodinated Contrast Media Allergy Severe Anaphylaxsi Unverified 01/22/19 18:39 [Iodinated Contrast Media - s IV Dye] iodine Allergy Severe Unverified 01/22/19 18:39 shellfish derived Allergy Severe Unverified 01/22/19 18:39 amlodipine Allergy Intermediate Verified 01/22/19 18:39 codeine Allergy Unverified 01/22/19 18:39 hepatitis B virus vaccine Allergy Unverified 01/22/19 18:39 lisinopril Allergy Unverified 01/22/19 18:39 meperidine HCl [From Demerol] Allergy Unverified 01/22/19 18:39 metformin HCl Allergy Unverified 01/22/19 18:39 [From Glucophage] prednisone Allergy Unverified 01/22/19 18:39 meperidine AdvReac Severe Cardiac Unverified 01/22/19 18:39 Dysrythmia morphine AdvReac Severe Nausea Unverified 12/17/19 18:39 oxaprozin [From Daypro] AdvReac Severe ams Unverified 01/22/19 18:39 sulindac [From Clinoril] AdvReac Intermediate ams Unverified 01/22/19 18:39 General Stated Complaint: Orthopedic ANSHU: 4 Review of Systems All systems reviewed & are unremarkable except as noted in HPI and below [facility] Social History Smoking/Tobacco Use Status: Never Alcohol Intake: never Drug use: Never Substance use type: does not use Do you feel safe at home: Yes Do you feel safe in your relationship?: Yes Exam Narrative Exam Narrative: 1.Const: Well-nourished, Well-developed, appearing stated age 2.Eyes: PERRL, no conjunctival injection, and symmetrical lids. 3.ENT: Atraumatic external nose and ears. Moist MM. Neck: Symmetric, trachea midline, No thyromegaly. There is no evidence of raccoon eyes, lombardi sign, CSF rhinorrhea, mastoid tenderness, cranial crepitus, hemotympanum, exophthalmos, or hyphema. Patient demonstrates intact dentition with no signs of tooth avulsion or fracture, no signs of jaw deformity, no evidence of a LeFort's fracture, with an intact palate, nose and orbital region. There is no evidence of a nasal septal hematoma. No proptosis. Jaw closes symmetrically. Airway is clear. 4.CVS: +S1/S2, No murmurs or gallops. Peripheral pulses 2+ and equal in all extremities. Brisk capillary refill in all extremities. 5.RESP: Unlabored respiratory effort. Clear to auscultation bilaterally. No wheezes rales or rhonchi 6.GI: Soft, Nontender/Nondistended, No hepatosplenomegaly. No guarding or rebound. 7.MSK: Normocephalic/Atraumatic, Extremities w/o deformity. No cyanosis or clubbing, Normal movement of all extremities. No midline cervical thoracic or lumbar spine tenderness. Left wrist: Symmetrically palpable radial and ulnar pulses. Capillary refill less than 2 seconds to all digits. Intact sensation to light touch of the radial, median and ulnar nerves demonstrated by testing in the dorsal web space of the thumb, the distal palmar aspect of the index finger, and the lateral surface of the fifth finger. 2 point discrimination intact to 5mm (up to 6mm can be normal in digits 3-5) of discrimination. Intact motor function of the radial, median and ulnar nerves demonstrated by strength of extension of the isolated distal joint of the index finger, hand mammography supervisor, and spreading of the 2nd through 5th digits. Intact recurrent median nerve as demonstrated by ability to move thumb fully through opposition, abduction and flexion. There is no snuffbox tenderness but she does have notable distal radius tenderness. Ever when the patient's wrist is varus and valgus stress she has notable referral of pain to her anatomical snuffbox. 8.Skin: Warm, Dry. No rashes or lesions. 9.Neuro: procurement agent II-XII grossly intact. Sensation grossly intact, no focal neurologic deficits. 10.Psych: (AAO) x3. Appropriate mood and affect Course Vital Signs Vital signs: Vital Signs Temperature 36.8 C 01/22/19 18:36 Pulse 86 01/22/19 18:36 Respiratory Rate 14 01/22/19 18:36 Blood Pressure 173/80 H 01/22/19 18:36 Pulse Oximetry 95 01/22/19 18:36 Temperature 36.8 C 01/22/19 18:36 Temperature Source Temporal Artery Scan 01/22/19 18:36 Pulse 86 01/22/19 18:36 Respiratory Rate 14 01/22/19 18:36 Respiratory Effort Non-Labored 01/22/19 18:38 Blood Pressure 173/80 H 01/22/19 18:36 Blood Pressure Position Sitting 01/22/19 18:36 Pulse Oximetry 95 01/22/19 18:36 Oxygen Delivery Method Room Air 01/22/19 18:36 Oxygen Flow Rate 0 01/22/19 18:36 Pain Level 5 01/22/19 18:40
[2019-01-22] MEDS: Acetaminophen 500 MG TAB 1000 MG PO (18:51)
--- NOTE | 2019-01-22 18:55 | DI.RAD_ITS ---
EXAM: XR WRIST LT COMPLETE INDICATION: distal radius pain,FELL COMPARISON: No exams were available for comparison TECHNIQUE: 2D digital imaging was performed. FINDINGS: No fracture or dislocation is seen. There are mild degenerative changes. IMPRESSION: No acute abnormality.
--- NOTE | 2019-01-22 19:08 | DI.VRAD_ITS ---
PROCEDURE INFORMATION: Exam: XR Left Wrist Exam date and time: 01/22/2019 6:58 PM Age: 64 years old Clinical indication: Other: Distal radial pain TECHNIQUE: Imaging protocol: XR Left wrist. Views: 3 or more views. COMPARISON: CR LEFT WRIST COMPLETE 09/02/2016 11:38 PM FINDINGS: Bones/joints: Osteopenia. No fracture. No dislocation. Minor arthritic narrowing of the radial carpal joint, scaphoid trapezium joint, and trapezium 1st metacarpal joint. Soft tissues: No soft tissue swelling or foreign body. IMPRESSION: 1. Minor arthritic changes of the wrist at the radiocarpal joint, scaphoid trapezium joint, and 1st carpometacarpal joint. 2. No acute traumatic disruption. Dictated and Authenticated by: Unruly Naranjo MD. Ordering:CORY Baker MD
== END 2019-01-22 19:15 | disposition home or self-care (01) ==
PROVIDERS: Emergency Provider Student in an Organized Health Care Education/Training Program; PCP Family Medicine
DX: M25.532 Pain in left wrist (principal); W00.0XXA Fall on same level due to ice and snow, initial encounter; I10 Essential (primary) hypertension; E11.9 Type 2 diabetes mellitus without complications; Z79.4 Long term (current) use of insulin
CPT/HCPCS: 29125; 99283; 73110; L3807

== ENCOUNTER 2019-03-06 01:20 | Outpatient (CLI) | payer OTHER, SELFPAY ==
--- NOTE | 2019-03-06 17:06 | DI.MAMMO_ITS ---
EXAM: MAMMO SCREENING CLINICAL HISTORY: SCREENING Z13.9 TECHNIQUE: Mammograms were interpreted according to the usual protocol including computer analysis w [employer] CAD system, tomosynthesis and C-view imaging. FINDINGS: The breasts are heterogeneously dense. No dominant mass or clumped microcalcification identified in either breast. Current examination is compared with previous examinations including October 2015 a nd there has been no gross interval change in appearance in comparison with previous studies. IMPRESSION: No specific evidence of malignancy at this time. Routine screening examinations are suggested at year ly intervals in this age group according to the ACS ACR guidelines. Category 1. Breast density, categ ory C. BI-RADS Cat 1 - Negative. Breast Density - Category C - Heterogeneously dense.
== END 2019-03-06 01:40 ==
PROVIDERS: PCP Family Medicine; Visit Provider Family Medicine
DX: Z12.31 Encounter for screening mammogram for malignant neoplasm of breast (principal)
CPT/HCPCS: 77063; 77067

== ENCOUNTER 2019-06-18 01:12 | Outpatient (CLI) | payer OTHER, SELFPAY ==
[2019-06-18 13:19] LABS: Hemoglobin A1C 9.9 % (3.8-5.6)
[2019-06-19 18:33] LABS: Fructosamine 392 mcmol/L (200 - 285)
== END 2019-06-18 01:32 ==
PROVIDERS: PCP Family Medicine; Visit Provider Internal Medicine Endocrinology, Diabetes & Metabolism
DX: E11.65 Type 2 diabetes mellitus with hyperglycemia (principal)
CPT/HCPCS: 36415; 82985; 83036

== ENCOUNTER 2019-07-18 12:57 | Outpatient (REF) | payer OTHER, SELFPAY ==
[2019-07-18 18:47] LABS: Anion Gap 10.9 mmol/L (3-11); BUN 15 mg/dL (7-18); CO2 25.1 mmol/L (21.0-32.0); CREATININE 1.29 mg/dL (0.55-1.02); Calcium 8.7 mg/dL (8.5-10.1); Chloride 100 mmol/L (98-107); Estimated GFR 41.48 (mL/min/1.73m2); Glucose 298 mg/dL (74-106); NT-proBNP 247 pg/mL (<300); Potassium 4.4 mmol/L (3.5-5.1); Sodium 136 mmol/L (136-145); TSH (W/Ref FT4) 3.48 uIU/mL (0.36-3.74)
== END 2019-07-18 13:17 ==
LOC: NCHCN 12:57
PROVIDERS: PCP Family Medicine; Visit Provider Nurse Practitioner Family
DX: R05 Cough (principal); R63.5 Abnormal weight gain
CPT/HCPCS: 80048; 83880; 84443

== ENCOUNTER 2019-07-19 17:44 | Outpatient (REF) | payer OTHER, SELFPAY ==
[2019-07-20 02:40] LABS: COVID-19 RT-PCR UVMMC Result Negative (Negative)
== END 2019-07-19 18:04 ==
LOC: NCHCN 17:44
PROVIDERS: PCP Family Medicine; Visit Provider Nurse Practitioner Family
DX: R05 Cough (principal)
CPT/HCPCS: U0003

== ENCOUNTER 2019-11-12 13:14 | Outpatient (REF) | payer OTHER, SELFPAY ==
[2019-11-12 19:36] LABS: ALT 44 U/L (14-59); AST 21 U/L (15-37); Albumin 3.4 g/dL (3.4-5.0); Alkaline Phosphatase 186 U/L (46-116); Anion Gap 8.8 mmol/L (3-11); BUN 11 mg/dL (7-18); Bilirubin, Total 0.3 mg/dL (0.2-1.0); CO2 25.2 mmol/L (21.0-32.0); CREATININE 1.24 mg/dL (0.55-1.02); Calcium 8.2 mg/dL (8.5-10.1); Calculated LDL 98 mg/dL (<100); Chloride 103 mmol/L (98-107); Cholesterol 152 mg/dL (<200); Estimated GFR 43.41 (mL/min/1.73m2); Glucose 370 mg/dL (74-106); HDL Cholesterol 29 mg/dL (40-60); Sodium 137 mmol/L (136-145); Total Protein 6.4 g/dL (6.4-8.2); Triglyceride 128 mg/dL (<150)
[2019-11-12 20:23] LABS: C-Reactive Protein 1.45 mg/dL (0.0-0.3)
[2019-11-12 21:01] LABS: ESR 15 mm/hr (0-30)
[2019-11-14 17:48] LABS: Fructosamine 342 mcmol/L (200 - 285)
== END 2019-11-12 13:34 ==
LOC: NCHCN 13:14
PROVIDERS: PCP Family Medicine; Visit Provider Family Medicine
DX: I10 Essential (primary) hypertension (principal); E11.9 Type 2 diabetes mellitus without complications; E78.5 Hyperlipidemia, unspecified; R05 Cough; D86.9 Sarcoidosis, unspecified
CPT/HCPCS: 80053; 80061; 85652; 82985; 86140

== ENCOUNTER 2020-06-09 12:44 | Outpatient (REF) | payer OTHER, SELFPAY ==
--- NOTE | 2020-06-09 09:30 | PAPFT_PTH ---
PATIENT: Nallely Thompson LOC: [facility]#:[id number] AGE/SX: 65/F ROOM: RE06/09/[address]: Haylee Baptiste V : 1955 BED: DIS: 06/09/2020 SPEC #: [id number] RECD: 06/09/20 17:55 STATUS: BLAZE RELeslye #: [id number] KRISTAN: 06/09/20 09:[address]: Haylee Baptiste V DEPT: [facility] Cytology RECD BY: Domitila Mike Tissues: 1 - CX/ENDOCX FOR PAP SMEARS Procedures: PAP THIN PREP/UVM Screening HPV DNA PROBE Comments: [id number]
== END 2020-06-09 12:45 | disposition home or self-care (01) ==
LOC: NCHCN 12:44
PROVIDERS: PCP Family Medicine; Visit Provider Family Medicine
DX: Z11.51 Encounter for screening for human papillomavirus (HPV); R87.810 Cervical high risk human papillomavirus (HPV) DNA test positive; Z12.72 Encounter for screening for malignant neoplasm of vagina; Z12.4 Encounter for screening for malignant neoplasm of cervix
CPT/HCPCS: 88142; 87624

== ENCOUNTER 2020-10-29 19:16 | Outpatient (REF) | payer OTHER, SELFPAY ==
[2020-10-29 19:33] LABS: HCT 40.9 % (36.0-46.0); HGB 13.1 g/dL (11.2-15.7); MCH 27.4 pg (27.0-33.0); MCV 85.6 fL (80-95); MPV 11.6 fL (8.0-11.0); Platelet Count 307 10^3/uL (130-400); RBC 4.78 10^6/uL (3.93-5.22); RDW 12.4 % (11.7-14.6); RDW-SD 38.9 fL; WBC 9.44 10^3/uL (4.4-10.8)
[2020-10-29 20:37] LABS: ALT 31 U/L (14-59); AST 19 U/L (15-37); Albumin 3.4 g/dL (3.4-5.0); Alkaline Phosphatase 180 U/L (46-116); Anion Gap 11.3 mmol/L (3-11); BUN 18 mg/dL (7-18); Bilirubin, Total 0.3 mg/dL (0.2-1.0); CO2 23.7 mmol/L (21.0-32.0); CREATININE 1.4 mg/dL (0.55-1.02); Calcium 8.6 mg/dL (8.5-10.1); Calculated LDL 99 mg/dL (<100); Chloride 100 mmol/L (98-107); Cholesterol 155 mg/dL (<200); Estimated GFR 37.62 (mL/min/1.73m2); Glucose 397 mg/dL (74-106); HDL Cholesterol 36 mg/dL (40-60); Potassium 4.6 mmol/L (3.5-5.1); Sodium 135 mmol/L (136-145); Total Protein 6.6 g/dL (6.4-8.2); Triglyceride 102 mg/dL (<150)
[2020-10-29 20:51] LABS: Creatine Kinase 62 U/L (26-192)
[2020-10-31 12:33] LABS: Fructosamine 372 mcmol/L (200 - 285)
== END 2020-10-29 19:17 | disposition home or self-care (01) ==
LOC: NCHCN 19:16
PROVIDERS: PCP Family Medicine; Visit Provider Internal Medicine
DX: Z00.00 Encounter for general adult medical examination without abnormal findings (principal); E78.5 Hyperlipidemia, unspecified; E11.9 Type 2 diabetes mellitus without complications; I10 Essential (primary) hypertension; N28.9 Disorder of kidney and ureter, unspecified; R30.0 Dysuria
CPT/HCPCS: 80053; 80061; 82550; 85027; 87077; 82985; 87086; 87186

== ENCOUNTER 2021-03-05 03:56 | Outpatient (CLI) | payer OTHER, SELFPAY ==
[2021-03-05 13:05] LABS: Source Nasal/Nares
[2021-03-05 17:46] LABS: COVID-19 PCR Negative (Negative)
== END 2021-03-05 03:57 | disposition home or self-care (01) ==
LOC: LBO 03:57
PROVIDERS: PCP Family Medicine; Visit Provider Surgery
DX: Z20.822 Contact with and (suspected) exposure to COVID-19 (principal)
CPT/HCPCS: 87635

== ENCOUNTER 2021-03-08 07:01 | Day surgery (SDC) | payer OTHER, SELFPAY ==
--- NOTE | 2021-03-07 16:20 | W.ANESPRE ---
General Info Date of Service Date Performed: 03/08/21 Height: 5 ft 2 in Weight: 83.4 kg Body Mass Index (BMI): 33.6 Surgical Procedure: Operation Date: 03/08/21 08:20 Proposed Procedures Side Surgeon p Ayse Castañeda MD Meds Allergies and Home Medications Allergies Allergy/AdvReac Type Severity Reaction Status Date / Time Iodinated Contrast Media Allergy Severe Anaphylaxsi Unverified 03/08/21 07:09 [Iodinated Contrast Media - s IV Dye] iodine Allergy Severe Anaphylaxis Unverified 03/08/21 07:09 shellfish derived Allergy Severe Anaphylaxis Unverified 03/08/21 07:09 amlodipine Allergy Intermediate Other (See Verified 03/08/21 07:09 Comment) codeine Allergy Nausea Unverified 03/08/21 07:09 hepatitis B virus vaccine Allergy local skin Unverified 03/08/21 07:09 reaction lisinopril Allergy Other (See Unverified 03/08/21 07:09 Comment) meperidine HCl [From Demerol] Allergy Nausea Unverified 03/08/21 07:09 metformin HCl Allergy Diarrhea Unverified 03/08/21 07:09 [From Glucophage] prednisone Allergy Other (See Unverified 03/08/21 07:09 Comment) meperidine AdvReac Severe Cardiac Unverified 03/08/21 07:09 Dysrythmia morphine AdvReac Severe Nausea Unverified 03/08/21 07:09 oxaprozin [From Daypro] AdvReac Severe ams Unverified 03/08/21 07:09 sulindac [From Clinoril] AdvReac Intermediate ams Unverified 03/08/21 07:09 Home Medication Medication Instructions Recorded albuterol sulfate 1 - 2 puff INHALATION Q4H PRN 10/14/13 inhaler nitroglycerin [Nitrostat] 0.4 mg SUBLINGUAL DIRECTED 10/14/13 tramadol [Ultram] 50 mg PO Q6H PRN tab-cap 10/14/13 clopidogrel [Plavix] 75 mg PO DAILY #30 tab-cap 10/22/13 Delica Lancets 01/05/15 One Touch Mini Gluc 01/05/15 OneTouch Ultra Test strip 01/05/15 fluticasone propionate [Flonase 9.9 ml NS DAILY PRN 01/05/15 Allergy Relief] isosorbide mononitrate 60 mg PO DAILY #60 tab-cap 01/26/15 atorvastatin 80 mg tablet 80 mg PO DAILY 03/06/18 metoprolol succinate 25 mg 50 mg PO DAILY #45 tab-cap 03/06/18 tablet,extended release 24 hr ondansetron HCl 4 mg tablet 4 mg PO .qq 4 HRS PRN tab 03/06/18 triamcinolone acetonide 0.5 % 1 applic TP TID PRN 03/06/18 topical cream hydrocodone-acetaminophen [Vicodin] 1 tab PO Q6H PRN #30 tab 09/28/18 benzonatate 100 mg capsule 100 mg PO BID PRN 09/11/20 epinephrine 0.3 mg/0.3 mL 0.3 mg IM ONCE 09/11/20 injection, auto-injector fluticasone furoate 200 1 inh INHALATION DAILY 09/11/20 mcg-vilanterol 25 mcg/dose inhalation powder mometasone 1 inh INHALATION BID 09/11/20 naphazoline 0.025 %-pheniramine 1 drp OPHTHALMIC (EYE) BID-QID PRN 09/11/20 0.3 % eye drops olmesartan 5 mg tablet 5 mg PO DAILY 09/11/20 ibuprofen 800 mg tablet 800 mg PO TID 02/12/21 isosorbide mononitrate 60 mg 60 mg PO DAILY 02/12/21 tablet,extended release 24 hr bisacodyl 5 mg tablet,delayed 5 mg PO ONCE #4 tab 02/23/21 release insulin regular hum U-500 conc 50 unit SUBCUT QACDINNER ml 02/23/21 pantoprazole 20 mg tablet,delayed 20 mg PO DAILY 02/23/21 release polyethylene glycol 3350 17 17 g PO ONCE #238 g 02/23/21 gram/dose oral powder Current Visit Medications: Current Medications Generic Name Dose Route Start Last Admin Trade Name Freq PRN Reason Stop Dose Admin Ringer's Solution 1,000 mls @ 80 mls/hr 03/08/21 06:00 IV 04/04/21 23:59 INFUSION KAN IV Miscellaneous Supplies 1 each 03/08/21 06:00 Iv Access IV 04/04/21 23:59 DIRECTED KAN Sodium Chloride 0 ml 03/08/21 06:00 Normal Saline Flush 10 Ml Syr IV 04/04/21 23:59 PRN PRN Sodium Chloride 0 ml 03/08/21 06:00 Normal Saline 10 Ml Vial IJ 04/04/21 23:59 DIRECTED PRN Sterile Water 0 ml 03/08/21 06:00 Water,Injection,Sterile 10 Ml Vial IJ 04/04/21 23:59 DIRECTED PRN PFSH Active Problems Active Problems: Problem Status Onset Code DVT prophylaxis Z29.9 Encounter for screening colonoscopy Z12.11 CHF (congestive heart failure) I50.9 Heart murmur, systolic R01.1 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 Exertional chest pain R07.9 Abnormal dobutamine stress echocardiogram R94.39 Medical History Medical History Abdominal pain Achilles tendonitis JAY (acute kidney injury) Sagastume esophagus Cardiac murmur Cough Dizziness Dysuria Fibromyalgia Hematuria Hiatal hernia History of postoperative nausea and vomiting HTN (hypertension) Hydronephrosis, left Hyperglycemia Hyperlipidemia Hypothyroidism Hypoxia Left flank pain Migraines Nausea Pulmonary nodule RAD (reactive airway disease) Hyper reactive airway disease Renal insufficiency Sarcoidosis Swelling of both parotid glands UTI (urinary tract infection) Weight gain Surgical History Surgical History Cubital tunnel syndrome with repair egd/colo (10/20/15) History of breast surgery cyst exc. left breast History of surgery Fatty tumor removed left arm Hx of cholecystectomy Hx of Meckel's diverticulum with surgery Status post cystoscopy Pt states stent and nephrostomy tube TMJ (temporomandibular joint syndrome) with surgical repair Tobacco Smoking/Tobacco Use Status: Never Alcohol Alcohol Intake: never Substance Use Substance use: Never Substance use type: does not use Vital Signs and Lab Results Vital Signs Most Recent Vital Signs in EMR: Temp Pulse Resp BP Pulse Ox 35.9 C L 86 18 152/76 H 99 03/08/21 07:22 03/08/21 07:22 03/08/21 07:22 03/08/21 07:22 03/08/21 07:22 Lab Results Blood Type / Crossmatch: No Data to Display Complete Blood Count: No Data to Display Complete Metabolic Panel: No Data to Display Liver Function Panel: No Data to Display Coagulation Panel: No Data to Display Cardiac Panel: No Data to Display Arterial Blood Gas: No Data to Display Venous Blood Gas: No Data to Display Pancreas Panel: No Data to Display Thyroid Panel: No Data to Display Infectious Disease: Coronavirus (COVID-19)(PCR) Negative (Negative) 03/05/21 08:30 03/05/21 Coronavirus 2019 Source Nasal/Nares 03/05/21 08:30 03/05/21 Blood Cultures: No Data to Display Toxicology Panel: No Data to Display Imaging and Studies Imaging and Studies Study information below may be from another EMR and interpreted by another provider. Please see original notes in EMR for more complete details. Stress Test Summary: 2015: possible CAD, Echocardiogram Summary: 2015: LVEF 65%, trace TR, PAS 30 mmhg. Cardiac Catheterization Summary: 2015: non-obstructive CAD, 40% LAD stenosis. Carotid Artery Summary:: 2015: no sig stenosis. Anesthesia Assessment and Plan Anesthesia History Personal History: PONV and Delayed Emergence Family History: No Family History of Anesthesia Complications Exercise Tolerance Exercise Tolerance: Metabolic Equivalents>4 Pertinent Negatives Pertinent Negatives: No Symptoms of GERD Cardiac & Pulmonary Exam Cardiac Exam: Normal S1/S2 Heart Sounds Pulmonary Exam: Clear Bilateral Breath Sounds Implantable Cardiac Device Does patient have a Pacemaker or an ICD?: No Airway Exam Known Difficult Airway: No Mallampati Class: 3 Mouth Opening: Normal (> 3cm) Thyromental Distance: Greater than 3 cm Neck Range of Motion: Full ROM Neck Circumference: Normal Teeth Condition: Generalized Poor Dentition ASA Classification ASA Score: ASA 3 Emergency Case?: No NPO Status NPO Status: NPO Clears >2 hours, Solids >8 hours Anesthesia Plan Resuscitation Status: Full Code Anesthesia Technique: General Anesthesia Airway Planned: Natural Airway Monitors Used: Standard Monitors Preoperative Comments:: 66 yo female with multiple drug sensitivities for colonoscopy. Sig PMHx: CKDIII, CAD (isosorbide), CHF, ?CVA (no residual, clopidogrel), DM (last A1c 9.9%), GERD (protonix), DVT, fibromyalgia, asthma (albut), Previous Anes: LMA 3
--- NOTE | 2021-03-08 06:39 | W.COLOREPORT ---
Colonoscopy Report Date of procedure: 03/08/21 Pre-op diagnosis general: Hx of polyps Post-op diagnosis procedure note: same (polyp and mild diverticulosis) Procedure: Colonoscopy with polypectomy Surgeon: Yelena Castañeda Anesthesia Type: General:No Airway (Vik Mckeon CRNA) Estimated blood loss (mL): 2 Pathology: other (Transverse polyp) Complications: None Disposition: same day Indications: Mrs Selam ellsworth 66-year-old female who is here today to discuss another screening colonoscopy. She had tubular adenomas noted in 2016. She does have a cardiac history but it has been stable and her cath in 2014 was normal. We discussed the colonoscopy in detail as well as its complications. Her last colonoscopy seem to go fine. There is no mention of any difficulties at the time of the colonoscopy. She did have some sigmoid diverticulosis. Risks, benefits and complications have been reviewed. Complications include but are not limited to bleeding, pain, perforation, missed small lesion/polyp, sore throat, aspiration and adverse reaction to the medications. Questions were entertained and answered to their satisfaction and they wished to proceed. No guarantees were given or implied. Colonoscopy under sedation Prep: Miralax/Dulcolax Procedure Start Time: 08:36 Procedure End Time: 09:06 Retraction Time: 18 minutes Findings: One sessile polyp in the Transverse colon Procedure Description: After informed consent was obtained the patient was taken to the procedure room and placed in a left decubitous position. Monitors were applied and a time out was done. The patients name, date of , procedure, allergies to medications and metal in their body was reviewed. The patient was then sedated. Once sedated and comfortable a rectal exam was done. External exam was normal. Internal exam revealed a normal sphincter tone and no palpable masses. The scope was then introduced and retro-flexed. No internal hemorrhoids, polyps or masses were identified on retro-flexion. The scope was then advanced to the cecum without difficulty. The ileocecal vlave and appendiceal orifice were identified. The prep was adequate. The scope was then slowly retracted over 18 minutes back into the rectum. Polyps were removed with a hot snare in the Proximal Transverse colon. There was mild sigmoid diverticulosis noted. The scope was removed and the patient was woken up and taken back to Same day surgery in stable condition. The patient tolerated the procedure well and there were no immediate complications. Follow up: The patient should follow up in 5 years unless they develop changes in bowel habits or other new gastrointestinal complaints.
--- NOTE | 2021-03-08 06:40 | W.PM.DSUDISC ---
Discharge Plan Disposition Patient Disposition: HOME Condition: Good Discharge Details Reason For Visit: Colonoscopy Attending Provider: Yelena Castañeda Primary Care Provider: Haylee Baptiste V Home Meds and New Rx's Prescriptions: Continued ibuprofen 800 mg tablet 800 mg PO TID RF: 0 isosorbide mononitrate 60 mg tablet extended release 24 hr 60 mg PO DAILY RF: 0 pantoprazole 20 mg tablet,delayed release (DR/EC) 20 mg PO DAILY RF: 0 tramadol [Ultram] 50 MG tablet 50 mg PO Q6H PRN RF: 0 nitroglycerin [Nitrostat] 0.4 MG tablet, sublingual 0.4 mg Sublingual DIRECTED RF: 0 albuterol sulfate 8.5 GM HFA aerosol inhaler 1 - 2 puff Inhalation Q4H PRN RF: 0 clopidogrel [Plavix] 75 MG tablet 75 mg PO DAILY Qty: 30 RF: 6 (DME) OneTouch Ultra Test 1 EACH strip 1 ea Topical TID RF: 0 fluticasone propionate [Flonase Allergy Relief] 9.9 ML spray,suspension 9.9 ml NS DAILY PRNRF: 0 DELICA LANCETS RF: 0 ONE TOUCH MINI GLUC RF: 0 isosorbide mononitrate 30 MG tablet extended release 24 hr 60 mg PO DAILY Qty: 60 RF: 3 triamcinolone acetonide 0.5 % cream 1 applic TP TID PRNRF: 0 ondansetron HCl [Zofran] 4 mg tablet 4 mg PO .qq 4 HRS PRNRF: 0 atorvastatin [Lipitor] 80 mg tablet 80 mg PO DAILY RF: 0 metoprolol succinate 25 mg tablet extended release 24 hr 50 mg PO DAILY Qty: 45 RF: 3 benzonatate [Tessalon Perles] 100 mg capsule 100 mg PO BID PRNRF: 0 Naphcon-A 0.025-0.3 % drops 1 drp ophthalmic (eye) BID-QID PRNRF: 0 olmesartan [Benicar] 5 mg tablet 5 mg PO DAILY RF: 0 epinephrine [EpiPen] 0.3 mg/0.3 mL auto-injector 0.3 mg IM ONCE RF: 0 Breo Ellipta 200-25 mcg/dose blister with device 1 inh inhalation DAILY RF: 0 Asmanex Twisthaler 220 mcg/ actuation (60) aerosol powdr breath activated 1 inh inhalation BID RF: 0 Humulin R U-500 (Conc) Kwikpen 500 unit/mL (3 mL) insulin pen 50 unit subcut QACDINNER RF: 0 hydrocodone-acetaminophen [Vicodin] 5-300 mg tablet 1 tab PO Q6H PRN (Reason: pain) Qty: 30 RF: 0 Discontinued polyethylene glycol 3350 17 gram/dose powder 17 g PO ONCE Qty: 238 RF: 0 bisacodyl [Dulcolax (bisacodyl)] 5 mg tablet,delayed release (DR/EC) 5 mg PO ONCE Qty: 4 RF: 0 Discharge Instructions Instructions: Colorectal Polyps (DC) Additional Instructions: Findings: One polyp Follow up: 5 years more then likely Please call if you develop: fevers >101.5 Nausea or Vomiting Abdominal pain that is not transient Rectal bleeding that is more then a tbsp A hard abdomen and inability to pass gas DAY SURGERY UNIT POST ENDOSCOPY INSTRUCTIONS Instructions for everyone who is given Anesthesia: For your safety, please do the following for the next 24 Hours: a. Do not drive or operate dangerous equipment b. Do not drink alcohol beverages or use any recreational drugs for the first 24 hours or while taking pain medications. The medications in your body may have a reaction that can be dangerous. c. Do not make any important decisions or sign any important papers 1. Generally there are no restrictions on your activity after a day or so has gone by, but you may feel a bit fatigued for a few days. 2. After you arrive home you may have a light meal and return to a normal diet as you can tolerate it without feeling sick to your stomach. 3. After surgery, you may feel pain or discomfort. This should be only transient, but if it persists please contact your doctor. 4. If there are any questions regarding the findings of your procedure, please feel free to contact your doctor. 6. If you are unable to contact your doctor with a problem, contact the hospital at [phone]. 7. Continue all your regular medications unless directed otherwise. I understand the above instructions and have no questions. Signature of Patient or Responsible Adult Escort Date/Time Name of Responsible Adult Escort Signature of Nurse Date/Time Activity:: Activity as Tolerated Diet:: High Fiber
[2021-03-08 07:22] VITALS: BP 152/76; PULSE 86; RESP 18; TEMP 35.9; O2SAT 99
[2021-03-08] MEDS: Lactated Ringers 1,000 ML 80 ML IV (07:51)
[2021-03-08 08:07] VITALS: BMI 33.6
--- NOTE | 2021-03-08 08:55 | BOWEL_PTH ---
PATIENT: Nallely Thompson LOC: [facility] U#:[id number] AGE/SX: 66/F ROOM: RE03/08/[address]: Yelena Castañeda MD : [id number] BED: DIS: 03/08/2021 SPEC #: [id number] RECD: 03/08/21 12:17 STATUS: BLAZE REQ #: [id number] KRISTAN: 03/08/21 08:[address]: Yelena Castañeda DEPT: Surgical Specimen RECD BY: Domitila Mike ENTERED: 03/08/21 12:18 SP TYPE: Bowel OTHR DR: Haylee Baptiste V Tissues: 1 - BIOPSY BOWEL Procedures: GROSS AND MICRO LEVEL 4 Comments: [id number]
[2021-03-08 09:15] VITALS: BP 117/67; PULSE 82; RESP 18; TEMP 35.9; O2SAT 99
--- NOTE | 2021-03-08 09:47 | W.ANESPOSTOP ---
Postoperative Evaluation Date, Time and Location Date Performed: 03/08/21 Time Performed: 09:25 Patient Location: Day Surgery Unit Vital Signs Most Recent Imported Vital Signs: Most Recent Vital Signs Temp Pulse Resp BP Pulse Ox 35.9 C L 82 18 117/67 99 03/08/21 09:15 03/08/21 09:15 03/08/21 09:15 03/08/21 09:15 03/08/21 09:15 Pain Score Most Recent Pain Score: Most Recent Pain Score Pain Level 0 03/08/21 09:15 Assessment Mental Status: Awake (Alert & Oriented to Patient Baseline) Airway and Respiratory Function: Patent airway with normal (patient baseline) respiratory exam Cardiovascular Function: Hemodynamically Stable Hydration Status: Adequately Hydrated Nausea & Vomiting: No Nausea or Vomiting Pain: Pt. Denies Any Pain Peripheral Nerve Block: Patient did not receive a nerve block
[2021-03-08 09:48] VITALS: BP 143/69; PULSE 70; RESP 18; TEMP 36.1; O2SAT 99
== END 2021-03-08 10:25 | disposition home or self-care (01) ==
LOC: SUR 07:01
PROVIDERS: PCP Family Medicine; Visit Provider Surgery
PROC: 0DJD8ZZ Inspection of Lower Intestinal Tract, Via Natural or Artificial Opening Endoscopic (ICD-10-PCS; CPT 45378; principal; 2021-03-08 08:15)
DX: Z12.11 Encounter for screening for malignant neoplasm of colon (principal); D12.3 Benign neoplasm of transverse colon; K57.30 Diverticulosis of large intestine without perforation or abscess without bleeding; Z86.010 Personal history of colon polyps; I50.9 Heart failure, unspecified; I25.10 Atherosclerotic heart disease of native coronary artery without angina pectoris; I11.0 Hypertensive heart disease with heart failure
CPT/HCPCS: 45385; 88305; J2001

== ENCOUNTER 2021-03-26 14:56 | Outpatient (REF) | payer OTHER, SELFPAY ==
[2021-03-26 15:19] LABS: ESR 27 mm/hr (0-30)
[2021-03-26 15:44] LABS: ALT 33 U/L (14-59); AST 20 U/L (15-37); Albumin 3.4 g/dL (3.4-5.0); Alkaline Phosphatase 158 U/L (46-116); Anion Gap 7.4 mmol/L (3-11); BUN 17 mg/dL (7-18); Bilirubin, Total 0.3 mg/dL (0.2-1.0); C-Reactive Protein 1.59 mg/dL (0.0-0.3); CO2 24.6 mmol/L (21.0-32.0); CREATININE 1.2 mg/dL (0.55-1.02); Calcium 8.6 mg/dL (8.5-10.1); Chloride 102 mmol/L (98-107); Estimated GFR 44.81 (mL/min/1.73m2); Potassium 4.5 mmol/L (3.5-5.1); Sodium 134 mmol/L (136-145); Total Protein 6.6 g/dL (6.4-8.2)
[2021-03-26 15:45] LABS: Glucose 376 mg/dL (74-106)
[2021-03-29 14:36] LABS: TSH 3.62 uIU/mL (0.36-3.74)
[2021-03-29 22:43] LABS: Vitamin B12 448 pg/mL (211-911)
== END 2021-03-26 14:57 | disposition home or self-care (01) ==
LOC: NCHCN 14:56
PROVIDERS: PCP Family Medicine; Visit Provider Family Medicine
DX: R20.2 Paresthesia of skin (principal); E11.9 Type 2 diabetes mellitus without complications; N28.9 Disorder of kidney and ureter, unspecified
CPT/HCPCS: 80053; 85652; 82607; 84443; 86140

== ENCOUNTER 2021-04-30 01:55 | Outpatient (CLI) | payer OTHER, SELFPAY ==
--- NOTE | 2021-04-30 | DI.MRI_ITS ---
Exam(s) MR BRAIN WO/W EXAM: MR BRAIN WO/W CLINICAL HISTORY: FACIAL PARESTHESIA LT, R20.2, PARESTHESIA OF ARM, R20.2 TECHNIQUE: Multiplanar multisequence MRI of the brain was performed. CONTRAST MATERIAL: IV Contrast: 18 mL of Dotarem contrast administered. COMPARISON: MR MRI - BRAIN WO CONTRAST from 09/27/2013 FINDINGS: VENTRICLES AND EXTRA AXIAL SPACES: Normal in size and morphology for the patient's age. HEMORRHAGE: None. CEREBRAL PARENCHYMA: No focus of restricted diffusion to suggest acute infarct. The diffusion-weight ed images have a similar appearance compared to the prior examination. No space-occupying lesion anita ntified. There are multiple areas of nonenhancing hyperintense signal in the white matter on the FLAI R and T2 weighted images. They have a similar appearance compared to the prior examination. These l ikely reflect small vessel ischemic disease. MIDLINE SHIFT: None. BRAINSTEM/CEREBELLUM: Normal. CALVARIUM: Normal. ENHANCEMENT: No suspicious enhancement identified. VISUALIZED PARANASAL SINUSES/MASTOIDS: Clear. CACHIL DEHE OF BLANCAS: Normal flow void. PITUITARY GLAND: Unremarkable. OTHER FINDINGS: IMPRESSION: 1. Stable hyperintense white matter foci on the FLAIR and T2 images likely reflecting small vessel is chemic disease. 2. No evidence to suggest an acute infarct. DATA REPOSITORY:
[2021-04-30] MEDS: Normal Saline Flush 10 ML SYR IVP (08:00)
[2021-04-30] MEDS: Gadoterate meglumine 20 ML VIAL 18 ML IVP (08:01)
== END 2021-04-30 02:15 ==
LOC: DI 01:55
PROVIDERS: PCP Family Medicine; Visit Provider Family Medicine
DX: R20.2 Paresthesia of skin (principal); R94.02 Abnormal brain scan
CPT/HCPCS: 70553

== ENCOUNTER 2021-08-29 10:39 | Inpatient (IN) | payer OTHER, MEDICARE, SELFPAY ==
[2021-08-29] VITALS (28 sets, daily range): BP systolic 114–162; BP diastolic 51–82; PULSE 72–106; RESP 0–25; TEMP 36.6; O2SAT 93–99
--- NOTE | 2021-08-29 10:30 | RT.EKG_ITS ---
APPROVED REPORT Exam: Resting ECG Reason for Exam: chest pain Patient Location: E HR:102 bpm ECG Measurements Heart Rate 102 AXIS AK 162 P 65 QRSd 91 QRS 37 QT 351 T 53 QTc 456 Conclusion Sinus tachycardia...rate> 99 Low voltage, precordial leads...precordial leads <1.0mV sinus tachycardia, normal axis, normal intervals, non ischemic
--- NOTE | 2021-08-29 11:00 | DI.RAD_ITS ---
Exam(s) XR PORTABLE CHEST AP EXAM: XR PORTABLE CHEST AP CLINICAL HISTORY: chest pain, left TECHNIQUE: 2D digital imaging was performed of the chest. One image was obtained. An AP view was ob tained. COMPARISON: CR XR CHEST 2V PA LATERAL from 09/24/2018 FINDINGS: MEDIASTINUM: Normal. HEART: Normal. PULMONARY VASCULATURE: Normal. LUNGS: Clear. PLEURAL SPACE: No pleural effusion or pneumothorax. BONE:Within normal limits for the patient's age. OTHER FINDINGS:Normal. IMPRESSION: No acute pulmonary findings. DATA REPOSITORY: RADIATION DOSE DELIVERED:
--- NOTE | 2021-08-29 11:06 | W.ED.GENAD ---
Discharge Plan Disposition Patient Disposition: [facility] INPATIENT Condition: Fair Discharge Details Chief Complaint: Chest Pain Clinical Impression: Non-ST elevation AL (NSTEMI) Primary Care Provider: Haylee Baptiste V ED Provider: Jose Hirsch Home Meds and New Rx's Prescriptions: No Action ibuprofen 800 mg tablet 800 mg PO TID PRN isosorbide mononitrate 60 mg tablet extended release 24 hr 60 mg PO DAILY pantoprazole 20 mg tablet,delayed release (DR/EC) 20 mg PO DAILY tramadol [Ultram] 50 MG tablet 50 mg PO Q6H PRN nitroglycerin [Nitrostat] 0.4 MG tablet, sublingual 0.4 mg Sublingual DIRECTED albuterol sulfate 8.5 GM HFA aerosol inhaler 1 - 2 puff Inhalation Q4H PRN clopidogrel [Plavix] 75 MG tablet 75 mg PO DAILY Qty: 30 (DME) OneTouch Ultra Test 1 EACH strip 1 ea Topical TID fluticasone propionate [Flonase Allergy Relief] 9.9 ML spray,suspension 9.9 ml NS DAILY PRN DELICA LANCETS ONE TOUCH MINI GLUC triamcinolone acetonide 0.5 % cream 1 applic TP TID PRN ondansetron HCl [Zofran] 4 mg tablet 4 mg PO .qq 4 HRS PRN atorvastatin [Lipitor] 80 mg tablet 80 mg PO DAILY metoprolol succinate 25 mg tablet extended release 24 hr 50 mg PO DAILY Qty: 45 benzonatate [Tessalon Perles] 100 mg capsule 100 mg PO BID PRN Naphcon-A 0.025-0.3 % drops 1 drp ophthalmic (eye) BID-QID PRN epinephrine [EpiPen] 0.3 mg/0.3 mL auto-injector 0.3 mg IM ONCE Rx Instructions: as a single dose fluticasone furoate-vilanterol [Breo Ellipta] 200-25 mcg/dose blister with device 1 inh inhalation DAILY Asmanex Twisthaler 220 mcg/ actuation (60) aerosol powdr breath activated 1 inh inhalation HS Humulin R U-500 (Conc) Kwikpen 500 unit/mL (3 mL) insulin pen 30 unit subcut QACDINNER olmesartan [Benicar] 5 mg tablet 10 mg PO DAILY cyclobenzaprine 5 mg tablet 5 mg PO QHS Trulicity 0.75 mg/0.5 mL pen injector See Rx Instructions .ROUTE .COMPLEX Rx Instructions: subcutaneously ;Once a week on Sundays. Medical Decision Making 66-year-old female history of diabetes coronary disease CHF presents with sharp/dull left anterior chest pain intermittent nonexertional over the past several hours beginning early a.m. this morning, associated mild nausea radiating to left shoulder. History of coronary disease, no stenting, on Plavix at home. Endorses history of sarcoid and pleurisy in the past. Current psychosocial stressors in include recent cardiac arrest for after a drug overdose, he survived they are currently in the process of . Patient appears anxious, stressed, mildly uncomfortable. Mild tachycardia to 100 bpm on the monitor. EKG showing sinus tachycardia with no ischemic changes at this time. Given past medical history must consider ACS versus pleurisy versus costochondritis versus anxiety versus musculoskeletal strain versus GERD versus less likely PE or aortic pathology. Will obtain screening labs, will provide analgesia and anxiolysis. Patient is allergic to morphine will dose IV Tylenol, Ativan, light fluids, Zofran close reassessment. Plan for serial troponin and reassessment of symptomatology. If persistent chest pain or abnormal labs consider admission for further cardiac evaluation 14: 20 persistent intermittent chest pain despite analgesia. Patient has a morphine allergy-using Tylenol Toradol and benzodiazepine. Would consider dose of sublingual nitro however patient's blood pressure is 115 systolic. 15: 10 persistent chest pain, uptrending troponin. Stable EKG, have contacted [facility] cardiology who are not excepting NSTEMI at this time however awaiting to accept the patient tomorrow for transfer and catheterization excepting physician Dr. Ferguson; in the meantime while we are waiting I will contact [facility] to see if they are willing to take her this evening. Given improvement of blood pressure will start patient on sublingual nitro 15: 39 [facility] is at capacity and only excepting STEMI is not hypotensive cardiac patients. Patient was admitted here at [facility] with the plan to transfer tomorrow to [facility] for catheterization. Patient feeling better after sublingual nitro. HPI General Date/Time Provider Initiated Documentation: 08/29/21 10:45. HPI Narrative: 66-year-old female history of diabetes coronary disease CHF presents with anterior chest pain over the past several hours beginning early this morning nonexertional left anterior chest rating to the shoulder, sharp and dull in nature associate with mild nausea no vomiting no diaphoresis. Some pain worse with palpation under left breast, endorses psychosocial stressors at home recent cardiac arrest of her after a drug overdose he survived, they are currently talking about . Denies exogenous estrogen use denies leg swelling or pain denies history of DVT or PE. Related Data Home Medications Medication Instructions Recorded Confirmed albuterol sulfate 90 mcg/actuation 1 - 2 puff inhalation Q4H PRN 10/14/13 08/29/21 aerosol inhaler nitroglycerin 0.4 mg sublingual 0.4 mg sublingual DIRECTED 10/14/13 08/29/21 tablet (Nitrostat) tramadol 50 mg tablet (Ultram) 50 mg PO Q6H PRN 10/14/13 08/29/21 clopidogrel 75 mg tablet (Plavix) 75 mg PO DAILY #30 tab-caps 10/22/13 08/29/21 Delica Lancets 01/05/15 02/23/21 One Touch Mini Gluc 01/05/15 02/23/21 blood sugar diagnostic (OneTouch 01/05/15 02/23/21 Ultra Test strips) fluticasone propionate 50 9.9 ml NS DAILY PRN 01/05/15 08/29/21 mcg/actuation nasal spray,suspension (Flonase Allergy Relief) atorvastatin 80 mg tablet (Lipitor) 80 mg PO DAILY 03/06/18 08/29/21 metoprolol succinate 25 mg 50 mg PO DAILY #45 tab-caps 03/06/18 08/29/21 tablet,extended release 24 hr ondansetron HCl 4 mg tablet 4 mg PO .qq 4 HRS PRN 03/06/18 08/29/21 (Zofran) triamcinolone acetonide 0.5 % 1 applic topical TID PRN 03/06/18 08/29/21 topical cream benzonatate 100 mg capsule 100 mg PO BID PRN 09/11/20 08/29/21 (Tessalon Perles) epinephrine 0.3 mg/0.3 mL 0.3 mg IM ONCE 09/11/20 08/29/21 injection, auto-injector (EpiPen) fluticasone furoate 200 1 inh inhalation DAILY 09/11/20 08/29/21 mcg-vilanterol 25 mcg/dose inhalation powder (Breo Ellipta) mometasone 220 mcg/actuation(60 1 inh inhalation HS 09/11/20 03/08/21 doses) breath activated powder inhaler (Asmanex Twisthaler) naphazoline 0.025 %-pheniramine 1 drp ophthalmic (eye) BID-QID PRN 09/11/20 08/29/21 0.3 % eye drops (Naphcon-A) ibuprofen 800 mg tablet 800 mg PO TID PRN 02/12/21 03/08/21 isosorbide mononitrate 60 mg 60 mg PO DAILY 02/12/21 08/29/21 tablet,extended release 24 hr insulin regular hum U-500 conc 500 30 unit subcut QACDINNER before 02/23/21 08/29/21 unit/mL(3 mL) subcut pen (Humulin every meal R U-500 (Conc) Insulin Kwikpen) pantoprazole 20 mg tablet,delayed 20 mg PO DAILY 02/23/21 08/29/21 release olmesartan 5 mg tablet (Benicar) 10 mg PO DAILY 04/21/21 08/29/21 cyclobenzaprine 5 mg tablet 5 mg PO QHS 07/28/21 08/29/21 dulaglutide 0.75 mg/0.5 mL See Rx Instructions .Route .COMPLEX 07/28/21 08/29/21 subcutaneous pen injector (Trulicity) Allergies Allergy/AdvReac Type Severity Reaction Status Date / Time Iodinated Contrast Media Allergy Severe Anaphylaxsi Unverified 08/29/21 10:48 [Iodinated Contrast Media - s IV Dye] iodine Allergy Severe Anaphylaxis Unverified 08/29/21 10:48 shellfish derived Allergy Severe Anaphylaxis Unverified 08/29/21 10:48 hepatitis B virus vaccine Allergy local skin Unverified 08/29/21 10:48 reaction meperidine HCl [From Demerol] Allergy Nausea Unverified 08/29/21 10:48 metformin HCl Allergy Diarrhea Unverified 08/29/21 10:48 [From Glucophage] meperidine AdvReac Severe Cardiac Unverified 08/29/21 10:48 Dysrythmia morphine AdvReac Severe Nausea Unverified 08/29/21 10:48 oxaprozin [From Daypro] AdvReac Severe ams Unverified 08/29/21 10:48 amlodipine AdvReac Intermediate cough Verified 08/29/21 11:07 sulindac [From Clinoril] AdvReac Intermediate ams Unverified 08/29/21 10:48 codeine AdvReac Nausea Unverified 08/29/21 11:07 lisinopril AdvReac cough Unverified 08/29/21 11:07 prednisone AdvReac intolerance Unverified 08/29/21 11:07 to high doses hep b vaccine AdvReac Severe Uncoded 08/29/21 10:48 General Stated Complaint: Chest Pain ANSHU: 3 Review of Systems Narrative: Review of Systems Constitutional: negative Eyes: negative ENT: negative Cardiovascular: Chest pain Respiratory: negative Gastrointestinal: negative : negative Musculoskeletal: negative Skin: negative Neurologic: negative Psych: negative PFSH All Active Problems (Updated 08/29/21 @ 15:40 by Jose Hirsch MD) Non-ST elevation AL (NSTEMI) (Acute) DVT prophylaxis (Acute) Encounter for screening colonoscopy (Acute) CHF (congestive heart failure) (Chronic) Heart murmur, systolic (Acute) Double vessel coronary artery disease (Acute) Exertional chest pain (Acute) Abnormal dobutamine stress echocardiogram (Acute) Medical History (Updated 08/29/21 @ 15:40 by Jose Hirsch MD) Abdominal pain Achilles tendonitis JAY (acute kidney injury) Sagastume esophagus Cardiac murmur Cervical disc disorder Cord compression syndrome Cough Dizziness Dysuria Facial paresthesia Fibromyalgia Hematuria Hiatal hernia History of postoperative nausea and vomiting HTN (hypertension) Hydronephrosis, left Hyperglycemia Hyperlipidemia Hypothyroidism Hypoxia Left flank pain Leg edema 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 left breast History of colonoscopy (~03/2021) History of surgery Fatty tumor removed left arm Hx of cholecystectomy Hx of Meckel's diverticulum with surgery Hx of nephrostomy Status post cystoscopy Pt states stent and nephrostomy tube TMJ (temporomandibular joint syndrome) with surgical repair Family History (Updated 07/28/21 @ 09:05 by Ange Sinha) Daughter Asthma Granddaughter Asthma X3 granddaughters. Social History Smoking/Tobacco Use Status: Never Smoking risk assessment performed?: Yes Alcohol Intake: never Drug use: Never Substance use type: does not use Current gender identity: female Do you feel safe at home: Yes Do you feel safe in your relationship?: Yes Exam Narrative Exam Narrative: Physical Examination General: alert, awake, cooperative, mildly uncomfortable HEENT: normocephalic, atraumatic; PERRL, EOM intact, conjunctiva normal; no nasal discharge; moist mucous membranes, oral and pharyngeal mucosa normal, tolerating secretions Neck: supple, trachea midline; full ROM Chest: normal to inspection Respiratory: normal respiratory effort, speaking in full sentences, clear to auscultation, no wheezing, rales or rhonchi Cardiac: Tachycardia, regular rhythm, S1S2 intact, no murmurs rubs or gallops GI: abdomen soft, non-tender, non-distended; no palpable mass or hepatosplenomegaly Skin: no lesions, rashes or trauma appreciated Neuro: AAOx3, normal speech, moving all extremities Extremities: No peripheral edema Psych: Appears slightly anxious, stressed Course Vital Signs Vital signs: Vital Signs Temperature 36.6 C 08/29/21 10:38 Pulse 104 H 08/29/21 10:38 Respiratory Rate 19 08/29/21 10:38 Blood Pressure 117/77 08/29/21 10:38 Pulse Oximetry 99 08/29/21 10:38 Temperature 36.6 C 08/29/21 10:38 Temperature Source Temporal Artery Scan 08/29/21 10:38 Pulse 104 H 08/29/21 10:38 Respiratory Rate 19 08/29/21 10:38 Blood Pressure 117/77 08/29/21 10:38 Blood Pressure Position Sitting 08/29/21 10:38 Pulse Oximetry 99 08/29/21 10:38 Oxygen Delivery Method Room Air 08/29/21 10:38 Oxygen Flow Rate 0 08/29/21 10:38 Pain Level 5 08/29/21 10:38
[2021-08-29] MEDS: Normal Saline 500 ML 1000 ML IV ×2 (11:13→15:09)
[2021-08-29] MEDS: Ondansetron 4 MG/2 ML VIAL IVP (11:13)
[2021-08-29] MEDS: LORazepam 20 MG/10 ML VIAL IVP (11:14)
[2021-08-29] MEDS: ACETAMINOPHEN 1,000 MG/100 ML BTL 400 MG IVPB (11:43)
[2021-08-29 11:55] LABS: Abs Immature Grans 0.05 10^3/uL (0.0-0.06); Absolute Basophil Count 0.08 10^3/uL (0.0-0.2); Absolute Eosinophil Count 0.29 10^3/uL (0.0-0.7); Absolute Lymphocyte Count 2.34 10^3/uL (1.2-3.4); Absolute Monocyte Count 0.36 10^3/uL (0.1-0.8); Absolute Neutrophil Count 7.33 10^3/uL (1.2-6.7); Basophils % 0.8; Eosinophils % 2.8; HCT 43.9 % (36.0-46.0); HGB 14.2 g/dL (11.2-15.7); Immature Grans % 0.5; Lymphocytes % 22.4; MCH 27.3 pg (27.0-33.0); MCHC 32.3 % (32.0-36.0); MCV 84 fL (80-95); MPV 11.1 fL (8.0-11.0); Monocytes % 3.4; Neutrophils % 70.1; Platelet Count 326 10^3/uL (130-400); RDW-SD 39.8 fL; WBC 10.45 10^3/uL (4.4-10.8)
--- NOTE | 2021-08-29 12:04 | DI.VRAD_ITS ---
PROCEDURE INFORMATION: Exam: XR Chest Exam date and time: 08/29/2021 11:35 AM Age: 66 years old Clinical indication: Other: Chest pain, left TECHNIQUE: Imaging protocol: Radiologic exam of the chest. Views: 1 view. COMPARISON: CR XR CHEST 2V PA LATERAL 24/09/2018 14:05 FINDINGS: Tubes, catheters and devices: EKG wires overlie the chest. Lungs: Low lung volumes. No focal consolidation. Pleural spaces: Minimally blunted left lateral costophrenic angle consistent with hypoventilation and prominent cardiac silhouette. No pleural effusion. No pneumothorax. Heart/Mediastinum: Prominent cardiac silhouette. Vasculature: Atherosclerotic disease. Bones/joints: Unremarkable for patient's age. IMPRESSION: Hypoventilation. No focal consolidation. Dictated and Authenticated by: Makayla Alvarado MD. Ordering:ELIZABETH Garcia MD
[2021-08-29 12:09] LABS: PTT Activated 26.5 sec (21.0-27.5); Prothrombin Time 10.3 sec (9.3-11.0)
[2021-08-29 12:17] LABS: ALT 44 U/L (14-59); AST 34 U/L (15-37); Albumin 3.4 g/dL (3.4-5.0); Alkaline Phosphatase 170 U/L (46-116); Anion Gap 9.1 mmol/L (3-11); BUN 14 mg/dL (7-18); Bilirubin, Total 0.7 mg/dL (0.2-1.0); CO2 25.9 mmol/L (21.0-32.0); CREATININE 1.4 mg/dL (0.55-1.02); Calcium 8.8 mg/dL (8.5-10.1); Chloride 98 mmol/L (98-107); Estimated GFR 37.51 (mL/min/1.73m2); Glucose 330 mg/dL (74-106); NT-proBNP 919 pg/mL (<300); Potassium 4.4 mmol/L (3.5-5.1); Sodium 133 mmol/L (136-145); Total Protein 7.2 g/dL (6.4-8.2)
[2021-08-29 12:19] LABS: Troponin I 161 ng/L (<or=60)
--- NOTE | 2021-08-29 13:15 | RT.EKG_ITS ---
APPROVED REPORT Exam: Resting ECG Reason for Exam: recurrent chest pain Patient Location: E HR:82 bpm ECG Measurements Heart Rate 82 AXIS HI 153 P 60 QRSd 84 QRS 38 QT 374 T 57 QTc 436 Conclusion Sinus rhythm...normal P axis, V-rate 60- 99 sinus rhythm, normal axis, normal intervals, non ischemic
[2021-08-29] MEDS: Ketorolac 15 MG/ML VIAL IVP (13:44)
--- NOTE | 2021-08-29 14:15 | RT.EKG_ITS ---
APPROVED REPORT Exam: Resting ECG Reason for Exam: chest pain Patient Location: E HR:82 bpm ECG Measurements Heart Rate 82 AXIS NH 148 P 159 QRSd 76 QRS 61 QT 360 T 114 QTc 421 Conclusion Sinus or ectopic atrial rhythm...P axis (-45,135) Probable left atrial enlargement...P >50mS, <-0.10mV V1 Low voltage, extremity leads...all extremity leads <0.5mV Nonspecific T abnormalities, lateral leads...T <-0.10mV, I aVL V5 V6 abnormal lead placement,
[2021-08-29] MEDS: HYDROmorphone 2 MG/ML VIAL 0.5 MG IVP (14:32)
[2021-08-29 14:33] LABS: Troponin I 265 ng/L (<or=60)
[2021-08-29 14:33] LABS: Source Nasal/Nares
[2021-08-29] MEDS: nitroGLYcerin 0.4 MG TAB SL (15:09)
[2021-08-29 15:25] LABS: COVID-19 PCR Negative (Negative)
--- NOTE | 2021-08-29 17:28 | W.PM.HP.N ---
Date of service: 08/29/21 Time of Service: 17:28 Assessment and Plan Assessment and plan (1) Non-ST elevation ND (NSTEMI): Status: Acute Assessment and plan: Systemic heparin drip, dual antiplatelet therapy with Plavix and aspirin, nitroglycerin drip to titrate to angina maintain systolic blood pressure greater than 105 mm, transfer to [facility] to the service of Dr. Emmanuel for definitive treatment including cardiac catheterization and PCI if indicated. Continue atorvastatin. Patient was not given any beta-bora while in the emergency department. She regularly takes Toprol-XL 50 mg daily. I will give her a trial of low-dose IV Lopressor. Heart rates currently in the 80s and she has a good blood pressure. Critical care time spent interviewing and examining the patient, reviewing studies, discussing case with patient's nurse and consulting physicians was 60 minutes (2) CAD (coronary artery disease): Status: None Assessment and plan: As above (3) DM (diabetes mellitus): Status: None Assessment and plan: Hold Trulicity and her home dose of insulin for now. Will cover with sliding scale NovoLog. Monitor blood sugars before meals and at bedtime. 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 This morning she was awoken around 4 AM with severe chest tightness and stabbing pain underneath her left breast and into her left arm. Initially she dismissed this as her cervical DJD causing her pain. She waited out until it subsided but then around 9 AM awoke again with chest tightness and left arm pain and took a couple of nitroglycerin tablets which gave partial improvement in her discomfort at which point her called EMS and she was given additional nitroglycerin tablet by EMS and was given 324 mg aspirin. Initial EKG demonstrates sinus tachycardia rate of 102 bpm with some nonspecific half millimeter ST depression in 2 3 and aVF repeat ECG taken at 1328 showed improvement in her ST segments which were now back to baseline. Third ECG taken at 1422 was nondiagnostic as there was poor voltage across the precordial leads. Initial troponin taken at 10:57 AM was elevated at 161 ng/L with a second set taken at 1410 this afternoon was 265-1/3 set taken at 1730 this afternoon was 340. Patient states that initially she had improvement after the sublingual nitroglycerin tablets but since she is been here at the hospital she has had waxing and waning chest pain that she rates as a 3 currently. Nitroglycerin drip was never started because of concern of some low blood pressure readings however from what I am seeing all of her blood pressures have been acceptable. The lowest reading was 117/77 and she has had a high of 153/77 and 157/80. Currently him started on nitroglycerin drip at 5mcg/min and we are titrating this upward to 10 mcg/min presently. She received dual antiplatelet therapy as she already had her Plavix this morning and was given the aspirin in route to the hospital. She was started on a heparin drip while she was in the emergency department. Dr. Romario Ortiz, emergency room doctor for [facility] called both [facility] as well as [facility]. Neither institution were taking NSTEMI's tonight as they were at capacity. However patient was put on the list for [facility] for transfer soon as a bed becomes available and she was excepted to the service of Dr. Ferguson. While I was evaluating the patient in the intensive care unit we got a call that [facility] has a bed available for her and she will be transferred tonight. PFSH All Active Problems (Updated 08/29/21 @ 15:40 by Jose Hirsch MD) Non-ST elevation ND (NSTEMI) (Acute) DVT prophylaxis (Acute) Encounter for screening colonoscopy (Acute) CHF (congestive heart failure) (Chronic) Heart murmur, systolic (Acute) Double vessel coronary artery disease (Acute) Exertional chest pain (Acute) Abnormal dobutamine stress echocardiogram (Acute) Medical History (Updated 08/29/21 @ 15:40 by Jose Hirsch MD) Abdominal pain Achilles tendonitis JAY (acute kidney injury) Sagastume esophagus Cardiac murmur Cervical disc disorder Cord compression syndrome Cough Dizziness Dysuria Facial paresthesia Fibromyalgia Hematuria Hiatal hernia History of postoperative nausea and vomiting HTN (hypertension) Hydronephrosis, left Hyperglycemia Hyperlipidemia Hypothyroidism Hypoxia Left flank pain Leg edema 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 left breast History of colonoscopy (~03/2021) History of surgery Fatty tumor removed left arm Hx of cholecystectomy Hx of Meckel's diverticulum with surgery Hx of nephrostomy Status post cystoscopy Pt states stent and nephrostomy tube TMJ (temporomandibular joint syndrome) with surgical repair Family History (Updated 07/28/21 @ 09:05 by Ange Sinha) Daughter Asthma Granddaughter Asthma X3 granddaughters. Social History Smoking/Tobacco Use Status: Never Smoking risk assessment performed?: Yes Alcohol Intake: never Drug use: Never Substance use type: does not use Current gender identity: female Do you feel safe at home: Yes Do you feel safe in your relationship?: Yes Meds Allergies and Home Medications Allergies Allergy/AdvReac Type Severity Reaction Status Date / Time Iodinated Contrast Media Allergy Severe Anaphylaxsi Unverified 08/29/21 10:48 [Iodinated Contrast Media - s IV Dye] iodine Allergy Severe Anaphylaxis Unverified 08/29/21 10:48 shellfish derived Allergy Severe Anaphylaxis Unverified 08/29/21 10:48 hepatitis B virus vaccine Allergy local skin Unverified 08/29/21 10:48 reaction meperidine HCl [From Demerol] Allergy Nausea Unverified 08/29/21 10:48 metformin HCl Allergy Diarrhea Unverified 08/29/21 10:48 [From Glucophage] meperidine AdvReac Severe Cardiac Unverified 08/29/21 10:48 Dysrythmia morphine AdvReac Severe Nausea Unverified 08/29/21 10:48 oxaprozin [From Daypro] AdvReac Severe ams Unverified 08/29/21 10:48 amlodipine AdvReac Intermediate cough Verified 08/29/21 11:07 sulindac [From Clinoril] AdvReac Intermediate ams Unverified 08/29/21 10:48 codeine AdvReac Nausea Unverified 08/29/21 11:07 lisinopril AdvReac cough Unverified 08/29/21 11:07 prednisone AdvReac intolerance Unverified 08/29/21 11:07 to high doses hep b vaccine AdvReac Severe Uncoded 08/29/21 10:48 Home Medications Medication Instructions Recorded Confirmed Type albuterol sulfate 90 mcg/actuation 1 - 2 puff inhalation Q4H PRN 10/14/13 08/29/21 History aerosol inhaler nitroglycerin 0.4 mg sublingual 0.4 mg sublingual DIRECTED 10/14/13 08/29/21 History tablet (Nitrostat) tramadol 50 mg tablet (Ultram) 50 mg PO Q6H PRN 10/14/13 08/29/21 History clopidogrel 75 mg tablet (Plavix) 75 mg PO DAILY #30 tab-caps 10/22/13 08/29/21 History Delica Lancets 01/05/15 02/23/21 History One Touch Mini Gluc 01/05/15 02/23/21 History blood sugar diagnostic (OneTouch 01/05/15 02/23/21 History Ultra Test strips) fluticasone propionate 50 9.9 ml NS DAILY PRN 01/05/15 08/29/21 History mcg/actuation nasal spray,suspension (Flonase Allergy Relief) atorvastatin 80 mg tablet (Lipitor) 80 mg PO DAILY 03/06/18 08/29/21 History metoprolol succinate 25 mg 50 mg PO DAILY #45 tab-caps 03/06/18 08/29/21 History tablet,extended release 24 hr ondansetron HCl 4 mg tablet 4 mg PO .qq 4 HRS PRN 03/06/18 08/29/21 History (Zofran) triamcinolone acetonide 0.5 % 1 applic topical TID PRN 03/06/18 08/29/21 History topical cream benzonatate 100 mg capsule 100 mg PO BID PRN 09/11/20 08/29/21 History (Ofelia Kraus) epinephrine 0.3 mg/0.3 mL 0.3 mg IM ONCE 09/11/20 08/29/21 History injection, auto-injector (EpiPen) fluticasone furoate 200 1 inh inhalation DAILY 09/11/20 08/29/21 History mcg-vilanterol 25 mcg/dose inhalation powder (Breo Ellipta) mometasone 220 mcg/actuation(60 1 inh inhalation HS 09/11/20 03/08/21 History doses) breath activated powder inhaler (Asmanex Twisthaler) naphazoline 0.025 %-pheniramine 1 drp ophthalmic (eye) BID-QID PRN 09/11/20 08/29/21 History 0.3 % eye drops (Naphcon-A) ibuprofen 800 mg tablet 800 mg PO TID PRN 02/12/21 03/08/21 History isosorbide mononitrate 60 mg 60 mg PO DAILY 02/12/21 08/29/21 History tablet,extended release 24 hr insulin regular hum U-500 conc 500 30 unit subcut QACDINNER before 02/23/21 08/29/21 History unit/mL(3 mL) subcut pen (Humulin every meal R U-500 (Conc) Insulin Kwikpen) pantoprazole 20 mg tablet,delayed 20 mg PO DAILY 02/23/21 08/29/21 History release olmesartan 5 mg tablet (Benicar) 10 mg PO DAILY 04/21/21 08/29/21 History cyclobenzaprine 5 mg tablet 5 mg PO QHS 07/28/21 08/29/21 History dulaglutide 0.75 mg/0.5 mL See Rx Instructions .Route .COMPLEX 07/28/21 08/29/21 History subcutaneous pen injector (Trulicity) Results Imaging Chest x-ray: report reviewed (No acute pathology) EKG: image reviewed Labs Result diagrams: 08/29/21 10:57 08/29/21 10:57 Labs: Laboratory Results - last 24 hr 08/29/21 08/29/21 08/29/21 10:57 10:57 10:57 WBC 10.45 RBC 5.20 Hgb 14.2 Hct 43.9 MCV 84 MCH 27.3 MCHC 32.3 RDW 13.0 Plt Count 326 MPV 11.1 H Immature Gran % 0.5 Neutrophils % 70.1 Lymphocytes % 22.4 Monocytes % 3.4 Eosinophils % 2.8 Basophils % 0.8 Nucleated RBC % 0.0 Absolute Neutrophils 7.33 H Absolute Lymphocytes 2.34 Absolute Monocytes 0.36 Absolute Eosinophils 0.29 Absolute Basophils 0.08 PT 10.3 INR 1.0 APTT 26.5 Sodium 133 L Potassium 4.4 Chloride 98 Carbon Dioxide 25.9 Anion Gap 9.1 BUN 14 Creatinine 1.4 H Estimated GFR/1.73 m2 37.51 Glucose 330 H Calcium 8.8 Total Bilirubin 0.7 AST 34 ALT 44 Alkaline Phosphatase 170 H Troponin I 161 H* NT-Pro-B Natriuret Pep 919 H Total Protein 7.2 Albumin 3.4 COVID-19 Source SARS-CoV-2 (PCR) 08/29/21 08/29/21 14:10 14:30 WBC RBC Hgb Hct MCV MCH MCHC RDW Plt Count MPV Immature Gran % Neutrophils % Lymphocytes % Monocytes % Eosinophils % Basophils % Nucleated RBC % Absolute Neutrophils Absolute Lymphocytes Absolute Monocytes Absolute Eosinophils Absolute Basophils PT INR APTT Sodium Potassium Chloride Carbon Dioxide Anion Gap BUN Creatinine Estimated GFR/1.73 m2 Glucose Calcium Total Bilirubin AST ALT Alkaline Phosphatase Troponin I 265 H* NT-Pro-B Natriuret Pep Total Protein Albumin COVID-19 Source Nasal/Nares SARS-CoV-2 (PCR) Negative Last Vital Signs Temp 36.6 C 08/29/21 10:38 Pulse 85 08/29/21 17:13 Resp 13 08/29/21 17:13 BP 127/70 08/29/21 17:13 Pulse Ox 96 08/29/21 17:13 Point of Care Ultrasound Note: Limited bedside echocardiogram was performed including parasternal long axis and short axis and apical four-chamber views and subcostal. Patient appears to have normal LV function with no regional wall motion abnormalities. RV size and function appear to be normal. No significant MR was seen. No AI or was seen on color Doppler.
[2021-08-29 18:02] LABS: Troponin I 340 ng/L (<or=60)
[2021-08-29] MEDS: nitroGLYcerin in D5W 50 MG/250 ML BTL IV (19:20)
[2021-08-29] MEDS: Atorvastatin 40 MG TAB 80 MG PO (19:47)
[2021-08-29] MEDS: Normal Saline Flush 10 ML SYR IVP (19:47)
--- NOTE | 2021-08-29 19:47 | W.PM.DS.N ---
DS: Diagnosis Discharge Diagnosis (1) Non-ST elevation DC (NSTEMI): Status: Acute Asessment and Plan: Patient present with 3 days of nocturnal angina. Most severe symptoms were this morning around 4 AM with she was awake and was sharp left-sided chest pain and left arm pain. See admission H&P for details. Patient's initial EKG showed inferior ST depression 0.5 mm that resolved with nitroglycerin. Second set up EKG showed resolution of ischemic changes. Serial troponins demonstrated that the patient had an NSTEMI. Troponins are still trending upward First troponin was 161 ng/L second set came back at 265 ng/L the most recent set was 340 ng/L. proBNP is elevated at 919 pg/mL. Creatinine is mildly elevated at 1.4 BUN is normal at 14 no electrolyte abnormalities. CBC was within normal limits. Patient was treated with 324 mg aspirin. She was given sublingual nitroglycerin by EMS in route to the hospital which gave her partial relief of her chest discomfort but not completely relieved. Patient was started on heparin drip and had already received her Plavix for the morning. Patient was admitted to the intensive care unit where nitroglycerin drip was started and she was given IV Lopressor. Patient remained hemodynamically stable. Still has residual chest pain described as left-sided sharp rated 3-4 out of 10. Currently nitroglycerin drip is being titrated and she is being given additional Lopressor. (2) CAD (coronary artery disease): Status: None (3) DM (diabetes mellitus): Status: None Discharge Plan Disposition Patient Disposition: [facility] Condition: Stable Discharge Details Reason For Visit: NSTEMI Admit Date/Time: 08/29/21 16:31 Admit Provider: Justin Zabala Attending Provider: Justin Zabala Primary Care Provider: Haylee Baptiste V Hospital Course Hospital Course: See admission H&P Home Meds and New Rx's Prescriptions: No Action ibuprofen 800 mg tablet 800 mg PO TID PRN isosorbide mononitrate 60 mg tablet extended release 24 hr 60 mg PO DAILY pantoprazole 20 mg tablet,delayed release (DR/EC) 20 mg PO DAILY tramadol [Ultram] 50 MG tablet 50 mg PO Q6H PRN nitroglycerin [Nitrostat] 0.4 MG tablet, sublingual 0.4 mg Sublingual DIRECTED albuterol sulfate 8.5 GM HFA aerosol inhaler 1 - 2 puff Inhalation Q4H PRN clopidogrel [Plavix] 75 MG tablet 75 mg PO DAILY Qty: 30 (DME) OneTouch Ultra Test 1 EACH strip 1 ea Topical TID fluticasone propionate [Flonase Allergy Relief] 9.9 ML spray,suspension 9.9 ml NS DAILY PRN DELICA LANCETS ONE TOUCH MINI GLUC triamcinolone acetonide 0.5 % cream 1 applic TP TID PRN ondansetron HCl [Zofran] 4 mg tablet 4 mg PO .qq 4 HRS PRN atorvastatin [Lipitor] 80 mg tablet 80 mg PO DAILY metoprolol succinate 25 mg tablet extended release 24 hr 50 mg PO DAILY Qty: 45 benzonatate [Tessalon Perles] 100 mg capsule 100 mg PO BID PRN Naphcon-A 0.025-0.3 % drops 1 drp ophthalmic (eye) BID-QID PRN epinephrine [EpiPen] 0.3 mg/0.3 mL auto-injector 0.3 mg IM ONCE Rx Instructions: as a single dose fluticasone furoate-vilanterol [Breo Ellipta] 200-25 mcg/dose blister with device 1 inh inhalation DAILY Asmanex Twisthaler 220 mcg/ actuation (60) aerosol powdr breath activated 1 inh inhalation HS Humulin R U-500 (Conc) Kwikpen 500 unit/mL (3 mL) insulin pen 30 unit subcut QACDINNER olmesartan [Benicar] 5 mg tablet 10 mg PO DAILY cyclobenzaprine 5 mg tablet 5 mg PO QHS Trulicity 0.75 mg/0.5 mL pen injector See Rx Instructions .ROUTE .COMPLEX Rx Instructions: subcutaneously ;Once a week on Sundays. Discharge Instructions Referrals: Mary Ferguson [ [facility] STAFF PHYSICIAN] - Activity:: Bed rest Diet:: NPO Discharge Orders Discharge Orders: Discharge Order (Routine); Ordered 08/29/21 Ordered By: Justin Zabala DS: Summary Time Spent with Patient providing and/or coordinating discharge services: Less than 30 minutes Specific discharge activities: Interview/exam of patient; review of transfer plans, completion of discharge summary; discussion w/ nursing and CM; documentation of hospital visit Status at Discharge Functional status at discharge: independent ambulation Overall status at discharge: patient is not back to baseline Mental Status: mental status grossly normal Speech and Movement: speech and movement normal Mood: congruent mood Affect: normal affect Exam Narrative Exam Narrative: Physical Examination General: alert, awake, cooperative, mildly uncomfortable HEENT: normocephalic, atraumatic; PERRL, EOM intact, conjunctiva normal; no nasal discharge; moist mucous membranes, oral and pharyngeal mucosa normal, tolerating secretions Neck: supple, trachea midline; full ROM Chest: normal to inspection Respiratory: normal respiratory effort, speaking in full sentences, clear to auscultation, no wheezing, rales or rhonchi Cardiac: Tachycardia, regular rhythm, S1S2 intact, no murmurs rubs or gallops GI: abdomen soft, non-tender, non-distended; no palpable mass or hepatosplenomegaly Skin: no lesions, rashes or trauma appreciated Neuro: AAOx3, normal speech, moving all extremities Extremities: No peripheral edema Psych: Appears slightly anxious, stressed Psych Mental Status: mental status grossly normal Speech and Movement: speech and movement normal Mood: congruent mood Affect: normal affect DS: Data Vitals/I&O Vitals and I&O: Vital Signs Temperature 36.6 C 08/29/21 17:20 Temperature Source Tympanic 08/29/21 17:20 Pulse 77 08/29/21 17:20 Pulse 86 08/29/21 16:05 Respiratory Rate 18 08/29/21 17:20 Respiratory Effort 08/29/21 17:20 Respiratory Depth Normal 08/29/21 17:20 Respiratory Pattern Normal 08/29/21 17:20 Blood Pressure 114/73 08/29/21 17:20 Blood Pressure Mean 86 08/29/21 17:20 Blood Pressure Position Supine 08/29/21 17:20 Pulse Oximetry 94 08/29/21 17:20 Oxygen Delivery Method Room Air 08/29/21 17:20 Oxygen Flow Rate 0 08/29/21 17:20 Pain Level 4 08/29/21 17:20 Intake & Output 08/28/21 08/29/21 08/29/21 23:59 11:59 23:59 Intake Total 600 / 600 Balance 600 / 600 Weight 85.275 kg 85.27 kg Intake: IV 600 / 600 Data Completed and Pending Labs on day of discharge: Labs from last 24 hours 0708/29/21 08/29/21 22:00 18:23 17:30 WBC RBC Hgb Hct MCV MCH MCHC RDW Plt Count MPV Immature Gran % Neutrophils % Lymphocytes % Monocytes % Eosinophils % Basophils % Nucleated RBC % Absolute Neutrophils Absolute Lymphocytes Absolute Monocytes Absolute Eosinophils Absolute Basophils PT INR APTT Pending Sodium Potassium Chloride Carbon Dioxide Anion Gap BUN Creatinine Estimated GFR/1.73 m2 Glucose Calcium Total Bilirubin AST ALT Alkaline Phosphatase Troponin I Pending 340 H* NT-Pro-B Natriuret Pep Total Protein Albumin COVID-19 Source SARS-CoV-2 (PCR) 08/29/21 08/29/21 08/29/21 14:30 14:10 10:57 WBC RBC Hgb Hct MCV MCH MCHC RDW Plt Count MPV Immature Gran % Neutrophils % Lymphocytes % Monocytes % Eosinophils % Basophils % Nucleated RBC % Absolute Neutrophils Absolute Lymphocytes Absolute Monocytes Absolute Eosinophils Absolute Basophils PT 10.3 INR 1.0 APTT 26.5 Sodium Potassium Chloride Carbon Dioxide Anion Gap BUN Creatinine Estimated GFR/1.73 m2 Glucose Calcium Total Bilirubin AST ALT Alkaline Phosphatase Troponin I 265 H* NT-Pro-B Natriuret Pep Total Protein Albumin COVID-19 Source Nasal/Nares SARS-CoV-2 (PCR) Negative 08/29/21 08/29/21 10:57 10:57 WBC 10.45 RBC 5.20 Hgb 14.2 Hct 43.9 MCV 84 MCH 27.3 MCHC 32.3 RDW 13.0 Plt Count 326 MPV 11.1 H Immature Gran % 0.5 Neutrophils % 70.1 Lymphocytes % 22.4 Monocytes % 3.4 Eosinophils % 2.8 Basophils % 0.8 Nucleated RBC % 0.0 Absolute Neutrophils 7.33 H Absolute Lymphocytes 2.34 Absolute Monocytes 0.36 Absolute Eosinophils 0.29 Absolute Basophils 0.08 PT INR APTT Sodium 133 L Potassium 4.4 Chloride 98 Carbon Dioxide 25.9 Anion Gap 9.1 BUN 14 Creatinine 1.4 H Estimated GFR/1.73 m2 37.51 Glucose 330 H Calcium 8.8 Total Bilirubin 0.7 AST 34 ALT 44 Alkaline Phosphatase 170 H Troponin I 161 H* NT-Pro-B Natriuret Pep 919 H Total Protein 7.2 Albumin 3.4 COVID-19 Source SARS-CoV-2 (PCR) Additional Comments Additional comments: Repeat ECG was taken at 1940 9 PM and shows normal sinus rhythm rate of [address] elevation and no ST depression. This is a normal-appearing ECG. PFSH All Active Problems (Updated 08/29/21 @ 15:40 by Jose Hirsch MD) Non-ST elevation DC (NSTEMI) (Acute) DVT prophylaxis (Acute) Encounter for screening colonoscopy (Acute) CHF (congestive heart failure) (Chronic) Heart murmur, systolic (Acute) Double vessel coronary artery disease (Acute) Exertional chest pain (Acute) Abnormal dobutamine stress echocardiogram (Acute) Medical History (Updated 08/29/21 @ 15:40 by Jose Hirsch MD) Abdominal pain Achilles tendonitis JAY (acute kidney injury) Sagastume esophagus Cardiac murmur Cervical disc disorder Cord compression syndrome Cough Dizziness Dysuria Facial paresthesia Fibromyalgia Hematuria Hiatal hernia History of postoperative nausea and vomiting HTN (hypertension) Hydronephrosis, left Hyperglycemia Hyperlipidemia Hypothyroidism Hypoxia Left flank pain Leg edema 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 left breast History of colonoscopy (~03/2021) History of surgery Fatty tumor removed left arm Hx of cholecystectomy Hx of Meckel's diverticulum with surgery Hx of nephrostomy Status post cystoscopy Pt states stent and nephrostomy tube TMJ (temporomandibular joint syndrome) with surgical repair Family History (Updated 07/28/21 @ 09:05 by Ange Sinha) Daughter Asthma Granddaughter Asthma X3 granddaughters. Social History Smoking/Tobacco Use Status: Never Smoking risk assessment performed?: Yes Alcohol Intake: never Drug use: Never Substance use type: does not use Current gender identity: female Do you feel safe at home: Yes Do you feel safe in your relationship?: Yes
[2021-08-29] MEDS: Metoprolol 5 MG/5 ML VIAL 2.5 MG IVP (19:48)
[2021-08-29 21:24] LABS: Troponin I 329 ng/L (<or=60)
== END 2021-08-29 21:00 | disposition short-term general hospital (02) | DRG 282 ==
LOC: ER 15:40 → ICU 16:56
PROVIDERS: Admitting Provider Internal Medicine; Emergency Provider Emergency Medicine; PCP Family Medicine; Visit Provider Internal Medicine
DX: I21.4 Non-ST elevation (NSTEMI) myocardial infarction (principal); E11.9 Type 2 diabetes mellitus without complications; I25.10 Atherosclerotic heart disease of native coronary artery without angina pectoris; E78.5 Hyperlipidemia, unspecified; I50.9 Heart failure, unspecified; I11.0 Hypertensive heart disease with heart failure; M79.7 Fibromyalgia; E03.9 Hypothyroidism, unspecified; J45.909 Unspecified asthma, uncomplicated; Z79.4 Long term (current) use of insulin
CPT/HCPCS: 36410; 80053; 87635; 93005; 96361; 96365; 96367; 96375; 96376; 99285; 71045; 83880; 84484; 85025; 85610; 85730; 93010; 99291; J0131; J1885; J2405; J3490

== ENCOUNTER 2021-10-14 09:17 | Outpatient (CLI) | payer OTHER, SELFPAY ==
--- NOTE | 2021-10-14 09:15 | RT.EKG_ITS ---
APPROVED REPORT Exam: Resting ECG Reason for Exam: mi Patient Location: O HR:83 bpm ECG Measurements Heart Rate 83 AXIS IA 157 P 69 QRSd 88 QRS 31 QT 351 T 42 QTc 413 Conclusion Sinus rhythm...normal P axis, V-rate 50- 99 Low voltage, precordial leads...precordial leads <1.0mV
== END 2021-10-14 09:18 | disposition home or self-care (01) ==
LOC: DI.CARD 09:18
PROVIDERS: PCP Family Medicine; Visit Provider Internal Medicine Cardiovascular Disease
DX: I21.4 Non-ST elevation (NSTEMI) myocardial infarction (principal)
CPT/HCPCS: 93010

== ENCOUNTER 2021-12-02 18:29 | Emergency (ER) | payer OTHER, SELFPAY ==
[2021-12-02] VITALS (21 sets, daily range): BP systolic 125–158; BP diastolic 71–102; PULSE 79–96; RESP 11–22; TEMP 37; O2SAT 100
[2021-12-02 20:10] LABS: Bilirubin Negative (Negative); Blood Negative (Negative); Clarity Clear (Clear); Glucose Negative (Negative); Ketones Negative (Negative); Leukocyte Esterase Small (Negative); Nitrite Negative (Negative); Urobilinogen 0.2 EU/dL (Up TO 0.2)
[2021-12-02 20:13] LABS: Bacteria Many HPF (Negative); C & S Indicated? Yes; Casts Negative LPF (Negative); Crystals Negative HPF (Negative); Epithelial Cells Few HPF (Negative); Mucus Negative (Negative); RBC Negative HPF (0-2)
[2021-12-02] MEDS: Normal Saline 1,000 ML 1000 ML IV (20:25)
[2021-12-02] MEDS: Ondansetron 4 MG/2 ML VIAL IVP (20:26)
[2021-12-02 20:28] LABS: Abs Immature Grans 0.04 10^3/uL (0.0-0.06); Absolute Basophil Count 0.05 10^3/uL (0.0-0.2); Absolute Lymphocyte Count 1.94 10^3/uL (1.2-3.4); Absolute Monocyte Count 0.46 10^3/uL (0.1-0.8); Basophils % 0.4; Eosinophils % 3.4; HCT 44.7 % (36.0-46.0); HGB 14.4 g/dL (11.2-15.7); Immature Grans % 0.3; Lymphocytes % 14.8; MCH 27.5 pg (27.0-33.0); MCHC 32.2 % (32.0-36.0); MCV 86 fL (80-95); MPV 10.8 fL (8.0-11.0); Monocytes % 3.5; Neutrophils % 77.6; Platelet Count 303 10^3/uL (130-400); RBC 5.23 10^6/uL (3.93-5.22); RDW 12.8 % (11.7-14.6); RDW-SD 39.5 fL; WBC 13.08 10^3/uL (4.4-10.8)
[2021-12-02 20:29] LABS: Absolute Eosinophil Count 0.44 10^3/uL (0.0-0.7); Absolute Neutrophil Count 10.15 10^3/uL (1.2-6.7)
[2021-12-02 20:51] LABS: ALT 44 U/L (14-59); AST 23 U/L (15-37); Albumin 4.2 g/dL (3.4-5.0); Alkaline Phosphatase 178 U/L (46-116); Anion Gap 8.7 mmol/L (3-11); BUN 12 mg/dL (7-18); Bilirubin, Total 0.5 mg/dL (0.2-1.0); CO2 27.3 mmol/L (21.0-32.0); CREATININE 1.3 mg/dL (0.55-1.02); Calcium 9.5 mg/dL (8.5-10.1); Chloride 99 mmol/L (98-107); Estimated GFR 45.07 (mL/min/1.73m2); Glucose 182 mg/dL (74-106); Lipase 71 U/L (73-393); Potassium 3.5 mmol/L (3.5-5.1); Sodium 135 mmol/L (136-145); Total Protein 8.4 g/dL (6.4-8.2); Troponin I < 50 ng/L (<or=60)
[2021-12-02 21:05] LABS: COVID-19 PCR Negative (Negative); Influenza A PCR Negative (Negative); Influenza B PCR Negative (Negative); RSV PCR Negative (Negative)
[2021-12-02 21:07] LABS: Source Nasopharynx
--- NOTE | 2021-12-02 21:30 | RT.EKG_ITS ---
APPROVED REPORT Exam: Resting ECG Reason for Exam: epigastric pain Patient Location: E HR:86 bpm ECG Measurements Heart Rate 86 AXIS MT 164 P 73 QRSd 92 QRS 37 QT 373 T 20 QTc 446 Conclusion Sinus rhythm...normal P axis, V-rate 60- 99
--- NOTE | 2021-12-02 21:42 | W.ED.GENAD ---
Discharge Plan Disposition Patient Disposition: HOME Condition: Stable Discharge Details Clinical Impression: Acute UTI, Nausea & vomiting Primary Care Provider: Haylee Baptiste V ED Provider: Domitila Luna Home Meds and New Rx's Prescriptions: New cephalexin 500 mg capsule 500 mg PO Q6H 7 Days Qty: 28 0RF Continued pantoprazole 20 mg tablet,delayed release (DR/EC) 20 mg PO DAILY rosuvastatin 40 mg tablet 40 mg PO DAILY aspirin [Adult Aspirin Regimen] 81 mg tablet,delayed release (DR/EC) 81 mg PO DAILY tramadol [Ultram] 50 MG tablet 50 mg PO Q6H PRN nitroglycerin [Nitrostat] 0.4 MG tablet, sublingual 0.4 mg Sublingual DIRECTED albuterol sulfate 8.5 GM HFA aerosol inhaler 1 - 2 puff Inhalation Q4H PRN clopidogrel [Plavix] 75 MG tablet 75 mg PO DAILY Qty: 30 (DME) OneTouch Ultra Test 1 EACH strip 1 ea Topical TID fluticasone propionate [Flonase Allergy Relief] 9.9 ML spray,suspension 9.9 ml NS DAILY PRN DELICA LANCETS ONE TOUCH MINI GLUC triamcinolone acetonide 0.5 % cream 1 applic TP TID PRN ondansetron HCl [Zofran] 4 mg tablet 4 mg PO .qq 4 HRS PRN metoprolol succinate 25 mg tablet extended release 24 hr 50 mg PO DAILY Qty: 45 benzonatate [Tessalon Perles] 100 mg capsule 100 mg PO BID PRN Naphcon-A 0.025-0.3 % drops 1 drp ophthalmic (eye) BID-QID PRN epinephrine [EpiPen] 0.3 mg/0.3 mL auto-injector 0.3 mg IM ONCE Rx Instructions: as a single dose fluticasone furoate-vilanterol [Breo Ellipta] 200-25 mcg/dose blister with device 1 inh inhalation DAILY Asmanex Twisthaler 220 mcg/ actuation (60) aerosol powdr breath activated 1 inh inhalation HS cyclobenzaprine 5 mg tablet 5 mg PO QHS Trulicity 0.75 mg/0.5 mL pen injector See Rx Instructions .ROUTE .COMPLEX Rx Instructions: subcutaneously ;Once a week on Sundays. olmesartan [Benicar] 5 mg tablet 20 mg PO DAILY Humulin R U-500 (Conc) Kwikpen 500 unit/mL (3 mL) insulin pen See Rx Instructions subcut QACDINNER Rx Instructions: 20 units SQ AM, 10 units SQ noon, 15 units SQ dinner gabapentin 100 mg capsule 100 mg PO QHS Discharge Instructions Instructions: Urinary Tract Infection in Women (ED), Acute Nausea and Vomiting (ED) Additional Instructions: Take antibiotic as prescribed Take Zofran as needed for nausea Yogurt daily while on the antibiotic and recheck with your primary care physician tomorrow Please return earlier should he have new or worsening complaints Stand Alone Forms: Work Release Referrals: Haylee Baptiste MD [Primary Care Provider] - 1 day Discharge Data Discharge Date/Time-TO BE ENTERED AT DEPARTURE: 12/02/21 20:12 Medical Decision Making Will place patient on Keflex for suspected urinary tract infection, labs are baseline for patient was reviewed, no pain complaints Urine culture pending Able to tolerate p.o. at time of discharge home No suspicion for cardiac etiology of symptoms patient is chest pain-free and symptomatically improved with antiemetic the day EKG it appears baseline per patient and negative troponin Given low threshold to return with new or worsening complaints Discharged home in stable condition with Medical Records Medical records reviewed: Yes I reviewed the patient's medical records. Lab Data Lab results reviewed: Yes I reviewed the patient's lab results. HPI General Date/Time Provider Initiated Documentation: 12/02/21 19:49. HPI Narrative: This 66-year-old female presents with nausea and vomiting for the past 4 days. She has history of cholecystectomy, diverticulitis, appendectomy and an OH, she has 1 stent. She denies any chest discomfort. She denies any weakness or dizziness. She had in fact worked today. She had several episodes of diarrhea. She denies any blood in her vomitus. She denies any alcohol consumption. She denies any known sick contacts. Denies urinary symptoms or flank pain. Related Data Home Medications Medication Instructions Recorded Confirmed albuterol sulfate 90 mcg/actuation 1 - 2 puff inhalation Q4H PRN 10/14/13 12/01/21 aerosol inhaler nitroglycerin 0.4 mg sublingual 0.4 mg sublingual DIRECTED 10/14/13 12/01/21 tablet (Nitrostat) tramadol 50 mg tablet (Ultram) 50 mg PO Q6H PRN 10/14/13 12/01/21 clopidogrel 75 mg tablet (Plavix) 75 mg PO DAILY #30 tab-caps 10/22/13 12/01/21 Delica Lancets 01/05/15 12/01/21 One Touch Mini Gluc 01/05/15 12/01/21 blood sugar diagnostic (OneTouch 01/05/15 12/01/21 Ultra Test strips) fluticasone propionate 50 9.9 ml NS DAILY PRN 01/05/15 12/01/21 mcg/actuation nasal spray,suspension (Flonase Allergy Relief) metoprolol succinate 25 mg 50 mg PO DAILY #45 tab-caps 03/06/18 12/01/21 tablet,extended release 24 hr ondansetron HCl 4 mg tablet 4 mg PO .qq 4 HRS PRN 03/06/18 12/01/21 (Zofran) triamcinolone acetonide 0.5 % 1 applic topical TID PRN 03/06/18 12/01/21 topical cream benzonatate 100 mg capsule 100 mg PO BID PRN 09/11/20 12/01/21 (Tessalon Nayana) epinephrine 0.3 mg/0.3 mL 0.3 mg IM ONCE 09/11/20 12/01/21 injection, auto-injector (EpiPen) fluticasone furoate 200 1 inh inhalation DAILY 09/11/20 12/01/21 mcg-vilanterol 25 mcg/dose inhalation powder (Breo Ellipta) mometasone 220 mcg/actuation(60 1 inh inhalation HS 09/11/20 12/01/21 doses) breath activated powder inhaler (Asmanex Twisthaler) naphazoline 0.025 %-pheniramine 1 drp ophthalmic (eye) BID-QID PRN 09/11/20 12/01/21 0.3 % eye drops (Naphcon-A) pantoprazole 20 mg tablet,delayed 20 mg PO DAILY 02/23/21 12/01/21 release cyclobenzaprine 5 mg tablet 5 mg PO QHS 07/28/21 12/01/21 aspirin 81 mg tablet,delayed 81 mg PO DAILY 10/14/21 12/01/21 release (Adult Aspirin Regimen) dulaglutide 0.75 mg/0.5 mL See Rx Instructions .Route .COMPLEX 10/14/21 12/01/21 subcutaneous pen injector (Trulicity) insulin regular hum U-500 conc 500 See Rx Instructions subcut 10/14/21 12/01/21 unit/mL(3 mL) subcut pen (Humulin QACDINNER before every meal R U-500 (Conc) Insulin Kwikpen) olmesartan 5 mg tablet (Benicar) 20 mg PO DAILY 10/14/21 12/01/21 rosuvastatin 40 mg tablet 40 mg PO DAILY 10/14/21 12/01/21 gabapentin 100 mg capsule 100 mg PO QHS 11/30/21 12/01/21 cephalexin 500 mg capsule 500 mg PO Q6H 7 days #28 caps 12/02/21 Previous Rx's Medication Instructions Recorded cephalexin 500 mg capsule 500 mg PO Q6H 7 days #28 caps 12/02/21 Allergies Allergy/AdvReac Type Severity Reaction Status Date / Time Iodinated Contrast Media Allergy Severe Anaphylaxsi Verified 12/01/21 08:24 [Iodinated Contrast Media - s IV Dye] iodine Allergy Severe Anaphylaxis Verified 12/01/21 08:24 shellfish derived Allergy Severe Anaphylaxis Verified 12/01/21 08:24 hepatitis B virus vaccine Allergy local skin Verified 12/01/21 08:24 reaction meperidine HCl [From Demerol] Allergy Nausea Verified 12/01/21 08:24 metformin HCl Allergy Diarrhea Verified 12/01/21 08:24 [From Glucophage] meperidine AdvReac Severe Cardiac Verified 12/01/21 08:24 Dysrythmia morphine AdvReac Severe Nausea Verified 12/01/21 08:24 oxaprozin [From Daypro] AdvReac Severe ams Verified 12/01/21 08:24 amlodipine AdvReac Intermediate cough Verified 12/01/21 08:24 sulindac [From Clinoril] AdvReac Intermediate ams Verified 12/01/21 08:24 codeine AdvReac Nausea Verified 12/01/21 08:24 lisinopril AdvReac cough Verified 12/01/21 08:24 prednisone AdvReac intolerance Verified 12/01/21 08:24 to high doses hep b vaccine AdvReac Severe Uncoded 08/29/21 10:48 General Stated Complaint: Nausea/Vomit/Diar ANSHU: 4 Review of Systems Narrative: Review of systems obtained x7 and negative aside from medication HPI PFSH All Active Problems (Updated 12/02/21 @ 21:48 by JUAN Lema) Acute UTI (Acute) Nausea & vomiting (Acute) Abnormal PFT (Acute) Abnormal chest xray (Acute) Chronic cough (Acute) Non-ST elevation OH (NSTEMI) (Acute) DVT prophylaxis (Acute) Encounter for screening colonoscopy (Acute) CHF (congestive heart failure) (Chronic) Heart murmur, systolic (Acute) Double vessel coronary artery disease (Acute) Exertional chest pain (Acute) Abnormal dobutamine stress echocardiogram (Acute) Medical History (Updated 12/02/21 @ 21:48 by JUAN Lema) Abdominal pain Achilles tendonitis Acute non-ST elevation myocardial infarction (NSTEMI) JAY (acute kidney injury) Sagastume esophagus Cardiac murmur Cervical disc disorder Cord compression syndrome Cough Dizziness Dysuria Facial paresthesia Fibromyalgia Hematuria Hiatal hernia History of Sagastume's esophagus History of postoperative nausea and vomiting HTN (hypertension) Hydronephrosis Hydronephrosis, left Hyperglycemia Hyperlipidemia Hypothyroidism Hypoxia Left flank pain Leg edema 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 left breast History of colonoscopy (~03/2021) History of surgery Fatty tumor removed left arm Hx of cholecystectomy Hx of Meckel's diverticulum with surgery Hx of nephrostomy Nephrostomy status Status post cystoscopy Pt states stent and nephrostomy tube TMJ (temporomandibular joint syndrome) with surgical repair Family History Daughter Asthma Granddaughter Asthma X3 granddaughters. Social History Smoking/Tobacco Use Status: Never Smoking risk assessment performed?: Yes Alcohol Intake: never Drug use: Never Substance use type: does not use Current gender identity: female Do you feel safe at home: Yes Do you feel safe in your relationship?: Yes Exam Const General: cooperative, comfortable and no acute distress HENMT Head: normal to inspection Mouth: oral mucosae normal Throat: uvula midline Eyes Pupils: PERRL Resp Effort & Inspection: normal respiratory effort Auscultation: clear to auscultation bilaterally Cardio Rate: regular rate Rhythm: regular rhythm GI Inspection: normal to inspection Auscultation: normal bowel sounds Other: Nontender abdominal exam Skin General skin exam: no rashes or lesions noted Neuro General: patient alert and patient oriented x3 Course Vital Signs Vital signs: Vital Signs Temperature 37.0 C 12/02/21 18:34 Pulse 93 H 12/02/21 18:34 Respiratory Rate 20 12/02/21 18:34 Blood Pressure 139/85 12/02/21 18:34 Pulse Oximetry 100 12/02/21 18:34 Temperature 37.0 C 12/02/21 18:34 Pulse 87 12/02/21 21:16 Pulse 88 12/02/21 21:20 Respiratory Rate 15 12/02/21 21:20 Respiratory Effort 12/02/21 19:56 Blood Pressure 149/82 H 12/02/21 21:16 Blood Pressure Mean 100 12/02/21 21:16 Blood Pressure Position Sitting 12/02/21 18:34 Pulse Oximetry 100 12/02/21 18:34 Oxygen Delivery Method Room Air 12/02/21 18:34 Oxygen Flow Rate 0 12/02/21 18:34 Pain Level 2 12/02/21 18:34 Lab/Test Results Lab/Test Results: 12/02/21 20:01 Urine - Reflex from Ua Urine Culture - Pending Laboratory Tests Range/Units 12/02/21 12/02/21 12/02/21 20:01 20:15 20:15 WBC (4.4-10.8) 10^3/uL 13.08 H RBC (3.93-5.22) 10^6/uL 5.23 H Hgb (11.2-15.7) g/dL 14.4 Hct (36.0-46.0) % 44.7 MCV (80-95) fL 86 MCH (27.0-33.0) pg 27.5 MCHC (32.0-36.0) % 32.2 RDW (11.7-14.6) % 12.8 Plt Count (130-400) 10^3/uL 303 MPV (8.0-11.0) fL 10.8 Immature Gran % 0.3 Neutrophils % 77.6 Lymphocytes % 14.8 Monocytes % 3.5 Eosinophils % 3.4 Basophils % 0.4 Nucleated RBC % (0.0-0.3) % 0.0 Absolute Neutrophils (1.2-6.7) 10^3/uL 10.15 H Absolute Lymphocytes (1.2-3.4) 10^3/uL 1.94 Absolute Monocytes (0.1-0.8) 10^3/uL 0.46 Absolute Eosinophils (0.0-0.7) 10^3/uL 0.44 Absolute Basophils (0.0-0.2) 10^3/uL 0.05 Sodium (136-145) mmol/L 135 L Potassium (3.5-5.1) mmol/L 3.5 Chloride (98-107) mmol/L 99 Carbon Dioxide (21.0-32.0) mmol/L 27.3 Anion Gap (3-11) mmol/L 8.7 BUN (7-18) mg/dL 12 Creatinine (0.55-1.02) mg/dL 1.3 H Est GFR (CKD-EPI 2020) (mL/min/1.73m2) 45.07 Glucose (74-106) mg/dL 182 H Calcium (8.5-10.1) mg/dL 9.5 Total Bilirubin (0.2-1.0) mg/dL 0.5 AST (15-37) U/L 23 ALT (14-59) U/L 44 Alkaline Phosphatase (46-116) U/L 178 H Troponin I (<or=60) ng/L < 50 Total Protein (6.4-8.2) g/dL 8.4 H Albumin (3.4-5.0) g/dL 4.2 Lipase (73-393) U/L 71 Urine Color (Yellow) Yellow Urine Clarity (Clear) Clear Urine pH (5-8) 6.0 Ur Specific [place] (1.005-1.025) 1.020 Urine Protein (Negative) mg/dL Negative Urine Ketones (Negative) mg/dL Negative Urine Blood (Negative) Negative Urine Nitrite (Negative) Negative Urine Bilirubin (Negative) Negative Urine Urobilinogen (Up TO 0.2) EU/dL 0.2 Ur Leukocyte Esterase (Negative) Small H Urine RBC (0-2) HPF Negative Urine WBC (0-5) HPF 10-20 H Ur Epithelial Cells (Negative) HPF Few Urine Crystals (Negative) HPF Negative Urine Bacteria (Negative) HPF Many Urine Casts (Negative) LPF Negative Urine Mucus (Negative) Negative Ur Culture Indicated? Yes Urine Glucose (Negative) mg/dL Negative COVID-19 Source SARS-CoV-2 (PCR) (Negative) Influenza Type A (PCR) (Negative) Influenza Type B (PCR) (Negative) RSV (PCR) (Negative) Range/Units 12/02/21 20:20 WBC (4.4-10.8) 10^3/uL RBC (3.93-5.22) 10^6/uL Hgb (11.2-15.7) g/dL Hct (36.0-46.0) % MCV (80-95) fL MCH (27.0-33.0) pg MCHC (32.0-36.0) % RDW (11.7-14.6) % Plt Count (130-400) 10^3/uL MPV (8.0-11.0) fL Immature Gran % Neutrophils % Lymphocytes % Monocytes % Eosinophils % Basophils % Nucleated RBC % (0.0-0.3) % Absolute Neutrophils (1.2-6.7) 10^3/uL Absolute Lymphocytes (1.2-3.4) 10^3/uL Absolute Monocytes (0.1-0.8) 10^3/uL Absolute Eosinophils (0.0-0.7) 10^3/uL Absolute Basophils (0.0-0.2) 10^3/uL Sodium (136-145) mmol/L Potassium (3.5-5.1) mmol/L Chloride (98-107) mmol/L Carbon Dioxide (21.0-32.0) mmol/L Anion Gap (3-11) mmol/L BUN (7-18) mg/dL Creatinine (0.55-1.02) mg/dL Est GFR (CKD-EPI 2020) (mL/min/1.73m2) Glucose (74-106) mg/dL Calcium (8.5-10.1) mg/dL Total Bilirubin (0.2-1.0) mg/dL AST (15-37) U/L ALT (14-59) U/L Alkaline Phosphatase (46-116) U/L Troponin I (<or=60) ng/L Total Protein (6.4-8.2) g/dL Albumin (3.4-5.0) g/dL Lipase (73-393) U/L Urine Color (Yellow) Urine Clarity (Clear) Urine pH (5-8) Ur Specific [place] (1.005-1.025) Urine Protein (Negative) mg/dL Urine Ketones (Negative) mg/dL Urine Blood (Negative) Urine Nitrite (Negative) Urine Bilirubin (Negative) Urine Urobilinogen (Up TO 0.2) EU/dL Ur Leukocyte Esterase (Negative) Urine RBC (0-2) HPF Urine WBC (0-5) HPF Ur Epithelial Cells (Negative) HPF Urine Crystals (Negative) HPF Urine Bacteria (Negative) HPF Urine Casts (Negative) LPF Urine Mucus (Negative) Ur Culture Indicated? Urine Glucose (Negative) mg/dL COVID-19 Source Nasopharynx SARS-CoV-2 (PCR) (Negative) Negative Influenza Type A (PCR) (Negative) Negative Influenza Type B (PCR) (Negative) Negative RSV (PCR) (Negative) Negative
== END 2021-12-02 20:12 | disposition home or self-care (01) ==
PROVIDERS: Emergency Provider Physician Assistant; PCP Family Medicine
DX: N39.0 Urinary tract infection, site not specified (principal); B96.20 Unspecified Escherichia coli [E. coli] as the cause of diseases classified elsewhere; R11.2 Nausea with vomiting, unspecified; R10.13 Epigastric pain
CPT/HCPCS: 80053; 83690; 87077; 87637; 93005; 96361; 96374; 99284; 81003; 81015; 84484; 85025; 87086; 87186; 93010; 99283; J2405

== ENCOUNTER 2022-02-28 03:06 | Outpatient (CLI) | payer OTHER, SELFPAY ==
[2022-02-28] MEDS: Inhaler, Assist Device 1 EACH MC (17:11)
[2022-02-28] MEDS: Albuterol HFA 18 GM 200 PUFF INH IH (17:11)
[2022-02-28] MEDS: Methacholine 100 MG VIAL IH (17:11)
--- NOTE | 2022-03-01 07:19 | W.PFT ---
Date of service: 02/28/22 Time of Service: 15:02 Pulmonary Function Test Result Requesting Provider Patrizia Indications: Cough Interpretation Spirometry: There is no airflow limitation. There was a 23% decrease in FEV1 with administration of 16mg/mL of methacholine. Lung Volumes: Normal lung volumes Diffusion Capacity: Normal diffusion Airway Pressure: Normal airways resistance Impression Normal pulmonary function testing with a borderline positive methacholine challenge. Note: Stable PFT's from 2019. Clinical Correlation therefore is recommended.
== END 2022-02-28 03:07 | disposition home or self-care (01) ==
LOC: RT 03:06
PROVIDERS: PCP Family Medicine; Visit Provider Student in an Organized Health Care Education/Training Program
DX: R05.3 Chronic cough (principal); D86.9 Sarcoidosis, unspecified
CPT/HCPCS: 94060; 94070; 94726; 94729; 94010; J7674

== ENCOUNTER 2022-04-28 03:31 | Outpatient (CLI) | payer OTHER, MEDICARE, SELFPAY ==
--- OUTSIDE RECORDS SUMMARY | 2022-03-11 00:16 | XMS_ITS | Continuity of Care Document ---
:1955 Author Organization [facility] Address [address] [place] [address] Care Team Providers Name Role Phone Emile Haylee Primary Care Physician [facility] [facility]): [facility]/20/21 - 01/05/22 [facility] [address] [place] [address] Encounter Diagnosis Non-ST elevation (NSTEMI) myocardial infarction (Final) - Discharge Disposition: Home or Self Care Attending Physician: Wade Fregoso MD Referring Physician: Wade Fregoso MD Allergies, Adverse Reactions, Alerts Substance Reaction Severity Status SHELLFISH DERIVED Unknown Active codeine Unknown Active meperidine Unknown Active morphine Unknown Active iodine topical Unknown Active lisinopril Unknown Active oxaprozin Unknown Active amlodipine-benazepril Unknown Active escitalopram Unknown Active predniSONE Unknown Active metFORMIN Unknown Active hepatitis B adult vaccine Unknown Active Assessment and Plan Future Appointments Immunizations Given and Recorded Vaccine Date Status Refusal Reason SARS-CoV-2 (COVID-19) mRNA-1273 vaccine 02/26/20 Recorded SARS-CoV-2 (COVID-19) mRNA-1273 vaccine 01/28/20 Recorded pneumococcal 13-valent conjugate vaccine 12/09/19 Recorde d influenza virus vaccine, live 11/10/19 Recorded influenza virus vaccine, live 01/08/19 Recorded influenza virus vaccine, live 10/18/11 Recorded tetanus/diphth/pertuss (Tdap) adult/adol 07/20/10 Recorde d pneumococcal 23-polyvalent vaccine 02/06/06 Recorded Social History Social History Type Response Sex Female Physical therapy Progress note Morenita Eldridge: PERFORM, MODIFY, MODIFY Event Display: Physical Therapy Progress Note Authored Date: [id number] *Visit Type: Initial Evaluation Patient ID and date of checked:??Yes *Referring??Diagnosis: Cervical spondylosis with radiculopathy *Therapy Diagnosis: Same *Subjective: ??Patient reports Mar 2021 she noted onset of numbness in the LUE/neck or decreased sensation which can extend to the finger tips. Seen by [facility] clinical specialist medical device who referred her to Pain Clinic. Did recently have a NSTEMI and in cardiac rehab currently which delayed intervention. C7 compression is the most severe, but limited in surgical options due to NSTEMI, must wait 6 months. She reports they do feel the patient would benefit from a surgical intervention. Patient reports no instancesof motor control loss. Patient Case History:??Spontaneous onset of altered sensation in Mar 2021, episodic in nature. Pertinent Past Medical History: ??No qualifying data available. Diabetes, Ulnar nerve transposition RUE Pertinent Past Surgical History: ??No qualifying data available. 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 Requirements: ??Computer work Current Restrictions: ??None Home Environment/Set Up:??NA Household Members/Support Network: ??NA Home Equipment:??NA *Previous Level of Function: ??No issues prior to Mar 2021 *Current Level of Function:??Patient states she struggles to grab items with the LUE due to concern for her sensation not strength Pain: ?NA Palpation:??Dermatomes decreased from C3-C8 left side Skin Inspection: ?NA Cervical Spine Mobility:??NA Cervical Spine AROM Screen:??Functional function, some increased tension noted in the left upper trapezius region, rotation symmetrical and pain-free, lateral flexion symmetrical and pain-free Compression Test: Negative Distraction Test: Negative Valsalva Maneuver: _ ??Test Right Left Cervical Quadrant Test ??- ??- Ozuna???s Test Phalen???s Test Spurling???s Test Tinel???s Test Vertebral Artery Test Cervical Spine Static and Repeated Motion Testing: NA Dermatomes: Decreased C3-C8 left side Myotomes: NA Reflexes: NA Neural Provocation Testing: Right Left Median Nerve ??+ ??++ Radial Nerve ??+ ??+ Ulnar Nerve ??+ Upper Quadrant Screen: NA Lower Quadrant Screen: NA Spinal Screen: Decrease and paresthesias of the left upper extremity with cervical spine retraction Posture Deviations/Comments: ??FHP Gait Deviations/Comments: NA *Patient Education: Median nerve flossing and cervical spine retraction home exercise program, results of PT examination, PT plan of care and goals. *Physical Therapy Assessment: Patient is a 66-year-old female referred to physical therapy with a diagnosis of cervical spondylosis with radiculopathy. Patient endorses a spontaneous onset of left upper extremity paresthesias in March. Patient was pursuing specialist consultations and pain clinic as sessment when she suffered an NSTEMI and as such any intervention was delayed. Patient is currently in cardiac rehab. Patient states episodic left upper extremity paresthesias that have more recently become constant, though she endorses no decreased motor control. Patient endorses no significant functional limitations other than concern for her ability to use her left upper extremity due to her altered sensation. Patient presents to physical therapy with some limited cervical spine extension but allother planes of motion are functional and pain-free. No significant reproduction of symptoms other than with median nerve tension tests. Per report patient does have significant compression at C7 and a2019 MRI noted prominent central and left paramedian disc osteophyte complex causing mass-effect upon the left ventral lateral cord with proximal left foraminal narrowing at C6 and C7. Patient is interested in pursuing surgical consultation, however at this time is interested in pursuing physical therapy in hopes of decreasing her paresthesias. Patient did respond well to cervical spine retraction todecrease overall involvement and PT will continue with skilled services to improve neural mobility and instruct patient in decompression techniques to mitigate symptoms. *Rehab Potential: Good?to reach the established goals *Functional Outcome Measure: FOM: Neck Disability Index??Questionnaire ? Score: 3 ? Comments: No disability *Short Term Goals: In 4 weeks the patient will; 1. Report paresthesias are no longer constant for improved ease of completing functional tasks 2. Report the ability to decrease intensity of symptoms with cervical spine retraction 75% of the time *Ceiling Insulation Blower Goals: In 8 weeks the patient will; 1. Report left upper extremity paresthesias extending no further than the elbow for improved ease ofcompleting functional tasks *Patient Goals: To decrease the numbness in my left arm *Frequency of Treatment: 2X/MONTH *Intensity of Treatment (minutes):??45 min *Duration of Treatment (days/weeks):??8 weeks *Planned Treatment Interventions: ??x CPT 07008: Therapeutic Exercise CPT 00957: Iontophoresis CPT 45597: Therapeutic Activity CPT 58172: Electrical Stimulation (TENS/probe) ??x CPT 31370: Manual Therapy CPT G0283: Electrical Stimulation (unattended) CPT 08481: Gait Training CPT 54798: Biofeedback ??x CPT 44416: Neuromuscular Re-education CPT 74227: Initial Orthotic Fit/Train ??x CPT 48091: Self-Care/Home Management CPT 37905: Initial Prosthetic Train CPT 82143: Ultrasound CPT 69393: Mechanical Traction *Discharge Plan: Upon achieving goals or maximal benefit of therapy services. *Procedure Documentation: CPT 86380: Low Complexity PT Evaluation:??43? minutes Physical Therapy Evaluation performed. History involves 3 or more personal factors and/or comorbidities. Examination of body system(s) includes 3 or more elements. Clinical presentation is stable. Clinical decision making is low. *Total Time: 43 *Time In: 1312 *Time Out: 1355 This document was dictated utilizing voice recognition software and may contain inadvertent errors. Electronically Signed on 11/12/21 03:29 PM Morenita Eldridge Reviewed by: Kati Freeman Patient Care team information PersonnelName: Haylee Baptiste Address: Address: [address] [facility] [place] [address]
--- OUTSIDE RECORDS SUMMARY | 2022-03-11 00:16 | XMS_ITS | Continuity of Care Document ---
:1955 Author Organization [facility] Address [address] [place] [address] Care Team Providers Name Role Phone Emile Haylee Primary Care Physician [facility]s): 11/12/21 - 01/06/22 [facility] [address] [place] [address] Encounter Diagnosis Other spondylosis with radiculopathy, cervical region (Final) - Discharge Disposition: Home or Self Care Attending Physician: Cody Staton Referring Physician: Cody Staton Allergies, Adverse Reactions, Alerts Substance Reaction Severity Status SHELLFISH DERIVED Unknown Active codeine Unknown Active meperidine Unknown Active morphine Unknown Active iodine topical Unknown Active lisinopril Unknown Active oxaprozin Unknown Active amlodipine-benazepril Unknown Active escitalopram Unknown Active predniSONE Unknown Active metFORMIN Unknown Active hepatitis B adult vaccine Unknown Active Immunizations Given and Recorded Vaccine Date Status [...] therapy Progress note Morenita Eldridge: PERFORM, MODIFY, MODIFY, MODIFY Event Display: Physical Therapy Progress Note Authored Date: [id number] *Visit Type: [place] Patient ID and date of checked:??Yes *Referring??Diagnosis: Cervical spondylosis with radiculopathy *Therapy Diagnosis: Same *Subjective: ??Patient at this time she is feeling continuous numbness in the left hand/wrist that does not change with activity or rest. She was recently discharged from cardiac rehab. She states thatat this time she plans to await clearance for surgical intervention. Patient Case History:??Spontaneous onset of altered sensation in Mar 2021, episodic in nature. Seen by [facility] command and control specialist who referred her to Pain Clinic. Did recently have a NSTEMI and in cardiac rehab currently which delayed intervention. C7 compression is the most severe, but limited in surgicaloptions due to NSTEMI, must wait 6 months. She reports they do feel the patient would benefit from asurgical intervention. Patient reports no instances of motor control loss. Pertinent Past Medical History: ??No qualifying data available. Diabetes, Ulnar nerve transposition RUE Pertinent Past Surgical History: ??No qualifying data available. Pertinent Medications:??No qualifying data available Pertinent Allergies: amlodipine-benazepril codeine escitalopram hepatitis B adult vaccine iodine topical lisinopril meperidine metFORMIN morphine oxaprozin predniSONE SHELLFISH DERIVED Clinically Complex Situations:??None Prior Therapy:??None Prior Diagnostic Results: Patient reports significant compression at C7, recent MRI notes: Central and left paramedian disc osteophyte complex at C6-C7 causing mass effect upon left ventrolateral cord and relatively mild proximal left foraminal narrowing. Moderate left foraminal stenosis at C4-C5. Mild right foraminal stenosis at this level. Spinal stenosis at this level without definite cord flattening. Prior Treatment:??None Precautions: None *Barriers to Education:??None [...] to concern for her sensation not strength 01/06/2022: Patient endorses no functional limitation related to the left upper extremity. She statesthat hand does feel swollen but objectively does not observe any edema. Pain: ?NA Palpation:??Dermatomes decreased from C3-C8 left side Skin Inspection: ?NA Cervical Spine Mobility:??NA Upper Quadrant Screen: Dress Designer strength assessment 12/09/2021 48lbs RUE 39 LUE 01/06/2022 42lbs RUE 39lbs LUE Lower Quadrant Screen: NA Spinal Screen: Decrease and paresthesias of the left upper extremity with cervical spine retraction Posture Deviations/Comments: ??FHP Gait Deviations/Comments: NA CPT 10188: Therapeutic Exercise:?20? minutes Therapeutic exercise to promote improved joint stability, strength, endurance, and range of motion for functional ADL???s such as: Use of LUE Review of symptoms: No change, paraesthesias constant in left hand/wrist Dress Designer strength: Unchanged in the LUE Pt ed to avoid falls, continue with posture correction as able. D/C PT at this time. *Patient Education: Discharge from physical therapy due to lack of improvement. *Physical Therapy Assessment: Patient is a 66-year-old female referred to physical therapy with a diagnosis of cervical spondylosis with radiculopathy. Patient endorses a spontaneous onset of left upper extremity paresthesias in March. Patient was pursuing specialist consultations and pain clinic as sessment when she suffered an NSTEMI and as such any intervention was delayed. Patient reported episodic left upper extremity paresthesias that have more recently become constant, though she endorses no decreased motor control. Patient endorses no significant functional limitations other than concern for her ability to use her left upper extremity due to her altered sensation. Patient presented to physical therapy with some limited cervical spine extension but all other planes of motion were functional and pain-free. No significant reproduction of symptoms other than with median nerve tension tests. Per report patient does have significant compression at C7 and a 2019 MRI noted prominent central and left paramedian disc osteophyte complex causing mass-effect upon the left ventral lateral cord with proximal left foraminal narrowing at C6 and C7. PT trialed postural correction and nerve glides with patient without benefit as she endorses no change in her symptoms at this time. Patient continues to demonstrate full motor control and function with the left upper extremity and so at this time PT will discontinue services. *Rehab Potential: Good?to reach the established goals *Functional Outcome Measure: FOM: Neck Disability Index??Questionnaire ? Score: 3 ? Comments: No disability *Short Term Goals: In 4 weeks the patient will; 1. Report paresthesias are no longer constant for improved ease of completing functional tasks: Not met 2. Report the ability to decrease intensity of symptoms with cervical spine retraction 75% of the time: Not met *Wire Wrapper Machine Operator Goals: In 8 weeks the patient will; 1. Report left upper extremity paresthesias extending no further than the elbow for improved ease ofcompleting functional tasks: Met currently as present in the hand/wrist only *Patient Goals: To decrease the numbness in my left arm: Not met *Frequency of Treatment: NA *Intensity of Treatment (minutes):??NA *Duration of Treatment (days/weeks):??NA *Planned Treatment Interventions: CPT 22392: Therapeutic Exercise CPT 12430: Iontophoresis CPT 93141: Therapeutic Activity CPT 98408: Electrical Stimulation (TENS/probe) CPT 24537: Manual Therapy CPT G0283: Electrical Stimulation (unattended) CPT 13579: Gait Training CPT 90447: Biofeedback CPT 51471: Neuromuscular Re-education CPT 77799: Initial Orthotic Fit/Train CPT 55284: Self-Care/Home Management CPT 91564: Initial Prosthetic Train CPT 89314: Ultrasound CPT 43367: Mechanical Traction *Discharge Plan: Discharge from PT today *Total Time: 27 *Time In: 1301 *Time Out: 1328 This document was dictated utilizing voice recognition software and may contain inadvertent errors. Electronically Signed on 01/06/22 03:14 PM Morenita Eldridge Reviewed by: Janet Fletcher PT, Morenita Fonseca: PERFORM, MODIFY, MODIFY Event Display: Physical Therapy Progress Note Authored Date: [id number] *Referring??Diagnosis: Cervical spondylosis with radiculopathy *Therapy Diagnosis: Same *Subjective: Patient reports she had a neuro telehealth but felt there was no assessment. New onset parasthesias in the left lower forearm to hand that feels cool. Patient Case History:??Spontaneous onset of altered sensation in Mar 2021, episodic in nature. CPT 47517: Neuromuscular Re-Education:??15? minutes Neuromuscular re-education to improve body proprioception, balance, coordination and posture to decrease pain, prevent injury, and promote independence with functional ADL???s such as: UE function Review of symptoms: Patient endorses no change in the left hand wrist paresthesias regardless of head position or previously prescribed stretches. She denies any sort of injury or fall, or change in work duties. Patient endorses what appears to be essentially glove distribution paresthesia to roughly an inch and a half 2 inches proximal to the radial head of the left upper extremity. Patient denies any motor loss. Dress Designer strength assessment to set baseline 48lbs RUE 39 LUE Above values are with in normal limits especially for a [id number] female within her age group. PT patient discussed and agreed upon a potential follow-up in 2 weeks time if patient feels there isany progression loss of sensation or motor loss at which point we can really assess rig site engineer strength and contact neurology regarding change in status otherwise we will consider a follow-up in early January. Patient agreeable. *Patient Education: Continue with current home exercise program, lack of significant weakness in theleft upper extremity at this time. *Physical Therapy Assessment: Patient arrives today reporting a relatively new onset of paresthesiasin the left upper extremity only that are constant and do not change with regards to position or activity. She demonstrates no significant asymmetry in rig site engineer strength of the left upper extremity at thistime and so there does not appear to be any significant motor loss. Patient overall is not demonstrating significant change in paresthesias with PT intervention and so we discussed a potential follow-up in 2 to 4 weeks time to assess for any change in sensation or motor function, after which patient may be discharged due to lack of improvement. Plan: Cont per POC *Total Time: 20 *Time In: 1350 *Time Out: 1410 This document was dictated utilizing voice recognition software and may contain inadvertent errors. Electronically Signed on 12/09/21 02:20 PM Morenita EldridgeLuis Miguelrufino Morenita: PERFORM, MODIFY Event Display: Physical Therapy Progress Note Authored Date: [id number] *Referring??Diagnosis: Cervical spondylosis with radiculopathy *Therapy Diagnosis: Same *Subjective: Patient reports she traveled for over a week, sleeping on couches and notes some increased stiffness but no changes in sensations. She reports paresthesias are about 5/10 on severity and are most notable in the first and second fingers extending up three quarters of the forearm. Patient Case History:??Spontaneous onset of altered sensation in Mar 2021, episodic in nature. CPT 18542: Neuromuscular Re-Education:??30? minutes Neuromuscular re-education to improve body proprioception, balance, coordination and posture to decrease pain, prevent injury, and promote independence with functional ADL???s such as: UE function Gentle neural glides focusing primarily on median nerve with isolations at the shoulder, elbow, wrist after which patient was able to appreciate some slight improvement in sensation. Gentle left upper extremity axial traction with prolonged hold after which the patient was able to appreciate altered sensation extending up only half of the forearm. Cervical spine retraction with 10-second hold x5 rounds with PT providing physical assistance for shoulder depression after which patient was able to appreciate no significant change in sensation. PT then instructed patient in upper trap stretch position with left upper extremity grasping edge ofthe chair with patient leaning laterally with lateral cervical flexion after which patient was able to appreciate a marked improvement in sensation in fingers 1 and 2. *Patient Education: Upper trap stretch/traction of the left upper extremity for symptom management *Physical Therapy Assessment: Patient did present with less median nerve tension today however neural glides did not significantly alter her sensation, nor did traction or cervical spine retraction. Patient had most notable improvement with version of an upper trapezius stretch which involved essentially traction of the entirety of the left upper extremity with lateral cervical spine flexion and as such she will complete this throughout the day in hopes of improving overall sensation. Plan: Cont per POC *Total Time: 33 *Time In: 1350 *Time Out: 3883 This document was dictated utilizing voice recognition software and may contain inadvertent errors. Electronically Signed on 11/25/21 02:27 PM Morenita Eldridge Patient Care team information PersonnelName: Haylee Baptiste Address: Address: [address] [facility] [address]
--- NOTE | 2022-04-28 15:30 | DI.DEXA_ITS ---
Exam(s) XR DEXA BONE DENSITY W/WO NIKKI EXAM: XR DEXA BONE DENSITY W/WO NIKKI CLINICAL HISTORY: POSTMENOPAUSAL, Z78.0; PREVENTATIVE HEALTH CARE, Z00.00 TECHNIQUE: COMPARISON: No exams were available for comparison FINDINGS: Lateral Spine Image: Unremarkable. No compression deformities identified. Left hip: Total T-Score: -0.9 Total Z-Score: 0.5 T- and Z-scores: Within normal limits. Note is made of osteopenia in the femoral neck with a T-score of -2.0. Lumbar Spine: Total T-Score: -1.8 Total Z-Score: 0.2 T- and Z-scores: Overall findings are consistent with osteopenia. Note is made of osteoporosis in th e L4 vertebral body with a T-score of -2.7. IMPRESSION: Osteoporosis in the L4 vertebral body.
== END 2022-04-28 03:51 ==
LOC: DI 03:32
PROVIDERS: PCP Family Medicine; Visit Provider Family Medicine
DX: M81.0 Age-related osteoporosis without current pathological fracture (principal); M85.88 Other specified disorders of bone density and structure, other site; Z78.0 Asymptomatic menopausal state; Z00.00 Encounter for general adult medical examination without abnormal findings
CPT/HCPCS: 77080

== ENCOUNTER 2022-05-05 06:13 | Day surgery (SDC) | payer OTHER, MEDICARE, SELFPAY ==
--- NOTE | 2022-05-04 20:34 | HPE_ITS ---
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 Her most recent EGD was around 2015.? She had short segment Sagastume's at that time, and underwent four-quadrant biopsies.? Pathology was that was some reflux esophagitis.? She manages her gastroesophageal reflux symptoms using pantoprazole.? Her other past medical history is most significant for coronary artery disease with myocardial infarction.? She was stented and is treated with aspirin and Plavix.? She was seen by Dr. Cadena in February and will be okay to come off her Plavix for a few days for the EGD.? She also has some cervical spine degenerative disc disease, with some left upper extremity neuropathy. Since her last visit, she has not had any significant changes to her clinical history. PFSH All Active Problems DVT prophylaxis (Acute) Encounter for screening colonoscopy (Acute) CHF (congestive heart failure) (Chronic) Heart murmur, systolic (Acute) Double vessel coronary artery disease (Acute) Exertional chest pain (Acute) Abnormal dobutamine stress echocardiogram (Acute) Non-ST elevation [place] (NSTEMI) (Acute) Chronic cough (Acute) Abnormal chest xray (Acute) Abnormal PFT (Acute) Asthma (Chronic) Lymphocytic colitis (Acute) Medical History Abdominal pain Achilles tendonitis Acute non-ST elevation myocardial infarction (NSTEMI) 08/29/21 JAY (acute kidney injury) Sagastume esophagus Cardiac murmur Cervical disc disorder Cord compression syndrome Cough Dizziness Dysuria Facial paresthesia Fibromyalgia Pt. 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 left breast History of colonoscopy (~03/2021) History of surgery Fatty tumor removed left arm Hx of cholecystectomy Hx of Meckel's diverticulum with surgery Hx of nephrostomy Nephrostomy status Status post cystoscopy Pt states stent and nephrostomy tube TMJ (temporomandibular joint syndrome) with surgical repair Family History Daughter Asthma Granddaughter Asthma X3 granddaughters. Social History Smoking/Tobacco Use Status: Never Smoking risk assessment performed?: Yes Alcohol Intake: never Drug use: Never Substance use type: does not use Current gender identity: female Do you feel safe at home: Yes Do you feel safe in your relationship?: Yes Meds Allergies and Home Medications Allergies Allergy/AdvReac Type Severity Reaction Status Date / Time Iodinated Contrast Media Allergy Severe Anaphylaxsi Verified 05/05/22 06:30 [Iodinated Contrast Media - s IV Dye] iodine Allergy Severe Anaphylaxis Verified 05/05/22 06:30 shellfish derived Allergy Severe Anaphylaxis Verified 05/05/22 06:30 hepatitis B virus vaccine Allergy local skin Verified 05/05/22 06:30 reaction meperidine HCl [From Demerol] Allergy Nausea Verified 05/05/22 06:30 metformin HCl Allergy Diarrhea Verified 05/05/22 06:30 [From Glucophage] meperidine AdvReac Severe Cardiac Verified 05/05/22 06:30 Dysrythmia morphine AdvReac Severe Nausea Verified 05/05/22 06:30 oxaprozin [From Daypro] AdvReac Severe ams Verified 05/05/22 06:30 amlodipine AdvReac Intermediate cough Verified 05/05/22 06:30 sulindac [From Clinoril] AdvReac Intermediate ams Verified 05/05/22 06:30 codeine AdvReac Nausea Verified 05/05/22 06:30 lisinopril AdvReac cough Verified 05/05/22 06:30 prednisone AdvReac intolerance Verified 05/05/22 06:30 to high doses hep b vaccine AdvReac Severe Uncoded 05/05/22 06:30 Home Medications Medication Instructions Recorded Confirmed Type albuterol sulfate 90 mcg/actuation 1 - 2 puff inhalation Q4H PRN 10/14/13 05/04/22 History aerosol inhaler nitroglycerin 0.4 mg sublingual 0.4 mg sublingual DIRECTED 10/14/13 05/04/22 History tablet (Nitrostat) tramadol 50 mg tablet (Ultram) 50 mg PO Q6H PRN 10/14/13 05/04/22 History clopidogrel 75 mg tablet (Plavix) 75 mg PO DAILY #30 tab-caps 10/22/13 05/04/22 History Delica Lancets 01/05/15 03/21/22 History One Touch Mini Gluc 01/05/15 03/21/22 History blood sugar diagnostic (OneTouch 01/05/15 03/21/22 History Ultra Test strips) fluticasone propionate 50 9.9 ml NS DAILY PRN 01/05/15 05/05/22 History mcg/actuation nasal spray,suspension (Flonase Allergy Relief) metoprolol succinate 25 mg 50 mg PO DAILY #45 tab-caps 03/06/18 05/05/22 History tablet,extended release 24 hr ondansetron HCl 4 mg tablet 4 mg PO .qq 4 HRS PRN 03/06/18 05/04/22 History (Zofran) triamcinolone acetonide 0.5 % 1 applic topical TID PRN 03/06/18 05/04/22 History topical cream benzonatate 100 mg capsule 100 mg PO BID PRN 09/11/20 05/04/22 History (Ofelia Kraus) epinephrine 0.3 mg/0.3 mL 0.3 mg IM ONCE 09/11/20 05/04/22 History injection, auto-injector (EpiPen) fluticasone furoate 200 1 inh inhalation DAILY 09/11/20 05/05/22 History mcg-vilanterol 25 mcg/dose inhalation powder (Breo Ellipta) mometasone 220 mcg/actuation(60 1 inh inhalation HS 09/11/20 05/04/22 History doses) breath activated powder inhaler (Asmanex Twisthaler) naphazoline 0.025 %-pheniramine 1 drp ophthalmic (eye) BID-QID PRN 09/11/20 05/04/22 History 0.3 % eye drops (Naphcon-A) pantoprazole 20 mg tablet,delayed 20 mg PO DAILY 02/23/21 05/05/22 History release cyclobenzaprine 5 mg tablet 5 mg PO QHS 07/28/21 05/04/22 History aspirin 81 mg tablet,delayed 81 mg PO DAILY 10/14/21 05/04/22 History release (Adult Aspirin Regimen) insulin regular hum U-500 conc 500 See Rx Instructions subcut 10/14/21 05/05/22 History unit/mL(3 mL) subcut pen (Humulin QACDINNER before every meal R U-500 (Conc) Insulin Kwikpen) olmesartan 5 mg tablet (Benicar) 20 mg PO DAILY 10/14/21 05/05/22 History rosuvastatin 40 mg tablet 40 mg PO DAILY 10/14/21 05/05/22 History gabapentin 100 mg capsule 100 mg PO QHS PRN 11/30/21 05/04/22 History dulaglutide 0.75 mg/0.5 mL 3 mg subcut .COMPLEX 02/25/22 05/05/22 History subcutaneous pen injector [facility]) fluticasone propionate 230 2 puff inhalation BID #12 grams 03/15/22 05/05/22 Rx mcg-salmeterol 21 mcg/actuation HFA inhaler (Advair HFA) Exam Const General: cooperative, healthy appearing and comfortable Orientation: awake and oriented x3 Eyes General: appearance normal, both eyes and all related structures Conjunctivae: conjunctivae normal Sclera: sclerae normal Resp Effort & Inspection: normal respiratory effort and able to speak in complete sentences Auscultation: clear to auscultation bilaterally Cardio Jugular venous pressure: no JVD Rate: regular rate Rhythm: regular rhythm Heart Sounds: S1 normal and S2 normal GI Inspection: non-distended Palpation: soft, no guarding, no hernias and nontender Auscultation: normal bowel sounds Skin General skin exam: normal turgor Neuro General: patient alert, patient awake and patient oriented x3 Cognition: normal cognition Extrem Right lower extremity: no edema Left lower extremity: no edema
--- NOTE | 2022-05-04 20:36 | W.PM.DSUDISC ---
Date of service: 05/05/22 Time of Service: 08:17 Discharge Plan Disposition Patient Disposition: Home Condition: Good Discharge Details Reason For Visit: EGD Attending Provider: Wisam Martínez Primary Care Provider: Haylee Baptiste V Home Meds and New Rx's Prescriptions: Continued pantoprazole 20 mg tablet,delayed release (DR/EC) 20 mg PO DAILY Advair HFA 230-21 mcg/actuation HFA aerosol inhaler 2 puff inhalation BID Qty: 12 3RF rosuvastatin 40 mg tablet 40 mg PO DAILY aspirin [Adult Aspirin Regimen] 81 mg tablet,delayed release (DR/EC) 81 mg PO DAILY tramadol [Ultram] 50 MG tablet 50 mg PO Q6H PRN nitroglycerin [Nitrostat] 0.4 MG tablet, sublingual 0.4 mg Sublingual DIRECTED albuterol sulfate 8.5 GM HFA aerosol inhaler 1 - 2 puff Inhalation Q4H PRN clopidogrel [Plavix] 75 MG tablet 75 mg PO DAILY Qty: 30 (DME) OneTouch Ultra Test 1 EACH strip 1 ea Topical TID fluticasone propionate [Flonase Allergy Relief] 9.9 ML spray,suspension 9.9 ml NS DAILY PRN DELICA LANCETS ONE TOUCH MINI GLUC triamcinolone acetonide 0.5 % cream 1 applic TP TID PRN ondansetron HCl [Zofran] 4 mg tablet 4 mg PO .qq 4 HRS PRN metoprolol succinate 25 mg tablet extended release 24 hr 50 mg PO DAILY Qty: 45 benzonatate [Tessalon Perles] 100 mg capsule 100 mg PO BID PRN Naphcon-A 0.025-0.3 % drops 1 drp ophthalmic (eye) BID-QID PRN epinephrine [EpiPen] 0.3 mg/0.3 mL auto-injector 0.3 mg IM ONCE Rx Instructions: as a single dose fluticasone furoate-vilanterol [Breo Ellipta] 200-25 mcg/dose blister with device 1 inh inhalation DAILY Asmanex Twisthaler 220 mcg/ actuation (60) aerosol powdr breath activated 1 inh inhalation HS cyclobenzaprine 5 mg tablet 5 mg PO QHS olmesartan [Benicar] 5 mg tablet 20 mg PO DAILY Humulin R U-500 (Conc) Kwikpen 500 unit/mL (3 mL) insulin pen See Rx Instructions subcut QACDINNER Rx Instructions: 20 units SQ AM, 10 units SQ noon, 15 units SQ dinner gabapentin 100 mg capsule 100 mg PO QHS PRN Trulicity 0.75 mg/0.5 mL pen injector 3 mg subcut .COMPLEX Rx Instructions: 3 mg subcutaneously; Discharge Instructions Additional Instructions: Nallely, I was able to complete your EGD without any difficulty today. Generally speaking, everything looked very reassuring. I did perform some biopsies of your gastroesophageal junction. Once I have the results of these, I will compare them to your previous. If there are no significant changes, then I do not think there is much role for another EGD in the future. I will be in touch when I have the results. 1. If tolerated, consume a soft, low fiber diet for 1-2 days. [address] Do not drive, drink alcohol, operate machinery, make critical decisions, or do activities that require coordination or balance for 24 hours. 3. You may experience a sore throat for 24 to 48 hours. You may use throat lozenges or gargle with warm salt water to relieve the discomfort. 4. Because air was put into your stomach during the procedure, you may experience some belching. 5. Go directly to the emergency room if you notice any of the following: Develop chills (warm to touch), or if you have a thermometer and your temperature is above 101 Difficulty breathing or difficultly swallowing Persistent vomiting Severe abdominal pain, other than gas cramps Severe chest pain Black, tarry stools Any bleeding ? exceeding one tablespoon 6. Call your physician if the site where your intravenous was started becomes red, swollen, painful, and warm to touch. 7. Your physician has reviewed your pre-procedure medications. Please continue to take those medications as previously ordered. You will be given specific information/education regarding any changes to your medications before leaving. Activity:: Activity as Tolerated Diet:: As Tolerated Discharge Orders Discharge Orders: Discharge Order (Routine); Ordered 05/04/22 Ordered By: Wisam Martínez DS: Diagnosis Discharge Diagnosis (1) GERD (gastroesophageal reflux disease): Status: None Asessment and Plan: Low index of suspicion for Sagastume's esophagus based on clinical features. Follow-up biopsy results
--- NOTE | 2022-05-04 20:37 | W.PM.ENDDOP ---
Date of service: 05/05/22 Time of Service: 08:17 Endoscopy Report DATE OF PROCEDURE: 05/05/22 PRE-OP DIAGNOSIS: Barretts Esophagus POST-OP DIAGNOSIS: other (Gastroesophageal reflux disease) PROCEDURE: EGD with biopsies SURGEON: Wisam Martínez ANESTHESIA TYPE: General:No Airway ESTIMATED BLOOD LOSS: 10 PATHOLOGY: other (Gastric antrum and body, GE junction, esophagus) COMPLICATIONS: None DISPOSITION: PACU INDICATIONS: Nallely is a 67 year old woman with longstanding GERD and a reported history of Barretts Esophagus. PROCEDURE START TIME: 07:51 PROCEDURE END TIME: 07:59 FINDINGS: Grossly normal EGD PROCEDURE DESCRIPTION: After the initiation of general endotracheal intubation and anesthesia, I advanced a standard gastroscope through the mouth past the hypopharynx and into the esophagus.? Under the direct vision of the scope, I advanced down the esophagus into the stomach.? Once I entered the stomach, I performed a brief inspection, followed by retroflexion towards the gastric cardia.? This appeared normal.? After that, I gently advanced the scope around the incisura angularis and examined the pylorus.? This also appeared normal.?The mucosa was pink and healthy appearing.? There were no abnormalities.? I perform random biopsies of the gastric antrum and body to rule out other forms of gastritis.? I then gently desufflated some of the stomach, and withdrew the endoscope into the distal esophagus. The GE junction was measured at 35 cm from the incisors. The Z-line was largely normal-appearing, with only very mild irregularity. Based on the clinical history of Sagastume's esophagus, I did perform biopsies of the GE junction. ?Finally, I withdrew the scope along the length of the esophagus taking great care to examine the entirety of the mucosa. I perform some random biopsies to assess the previous biopsy-proven lymphocytic esophagitis. I did not appreciate any abnormalities. Then, I advanced the gastroscope back down into the stomach to completely evacuate it. I gently withdrew it along the length of the esophagus using gentle suction along the way.
[2022-05-05] VITALS (8 sets, daily range): BP systolic 74–128; BP diastolic 39–75; PULSE 71–91; RESP 9–32; TEMP 36.4–36.5; O2SAT 93–100; BMI 314.5
--- NOTE | 2022-05-05 06:53 | W.ANESPRE ---
General Info Date of Service Date Performed: 05/05/22 Height: 5 ft 1.8 in Weight: 775 kg Body Mass Index (BMI): 314.5 Surgical Procedure: Operation Date: 05/05/22 07:35 Proposed Procedure Side Surgeon irene Martínez MD Meds Allergies and Home Medications Allergies Allergy/AdvReac Type Severity Reaction Status Date / Time Iodinated Contrast Media Allergy Severe Anaphylaxsi Verified 05/05/22 06:30 [Iodinated Contrast Media - s IV Dye] iodine Allergy Severe Anaphylaxis Verified 05/05/22 06:30 shellfish derived Allergy Severe Anaphylaxis Verified 05/05/22 06:30 hepatitis B virus vaccine Allergy local skin Verified 05/05/22 06:30 reaction meperidine HCl [From Demerol] Allergy Nausea Verified 05/05/22 06:30 metformin HCl Allergy Diarrhea Verified 05/05/22 06:30 [From Glucophage] meperidine AdvReac Severe Cardiac Verified 05/05/22 06:30 Dysrythmia morphine AdvReac Severe Nausea Verified 05/05/22 06:30 oxaprozin [From Daypro] AdvReac Severe ams Verified 05/05/22 06:30 amlodipine AdvReac Intermediate cough Verified 05/05/22 06:30 sulindac [From Clinoril] AdvReac Intermediate ams Verified 05/05/22 06:30 codeine AdvReac Nausea Verified 05/05/22 06:30 lisinopril AdvReac cough Verified 05/05/22 06:30 prednisone AdvReac intolerance Verified 05/05/22 06:30 to high doses hep b vaccine AdvReac Severe Uncoded 05/05/22 06:30 Home Medication Medication Instructions Recorded albuterol sulfate 90 mcg/actuation 1 - 2 puff inhalation Q4H PRN 10/14/13 aerosol inhaler nitroglycerin 0.4 mg sublingual 0.4 mg sublingual DIRECTED 10/14/13 tablet (Nitrostat) tramadol 50 mg tablet (Ultram) 50 mg PO Q6H PRN 10/14/13 clopidogrel 75 mg tablet (Plavix) 75 mg PO DAILY #30 tab-caps 10/22/13 Delica Lancets 01/05/15 One Touch Mini Gluc 01/05/15 blood sugar diagnostic (OneTouch 01/05/15 Ultra Test strips) fluticasone propionate 50 9.9 ml NS DAILY PRN 01/05/15 mcg/actuation nasal spray,suspension (Flonase Allergy Relief) metoprolol succinate 25 mg 50 mg PO DAILY #45 tab-caps 03/06/18 tablet,extended release 24 hr ondansetron HCl 4 mg tablet 4 mg PO .qq 4 HRS PRN 03/06/18 (Zofran) triamcinolone acetonide 0.5 % 1 applic topical TID PRN 03/06/18 topical cream benzonatate 100 mg capsule 100 mg PO BID PRN 09/11/20 (Tessalon Perlaiyana) epinephrine 0.3 mg/0.3 mL 0.3 mg IM ONCE 09/11/20 injection, auto-injector (EpiPen) fluticasone furoate 200 1 inh inhalation DAILY 09/11/20 mcg-vilanterol 25 mcg/dose inhalation powder (Breo Ellipta) mometasone 220 mcg/actuation(60 1 inh inhalation HS 09/11/20 doses) breath activated powder inhaler (Asmanex Twisthaler) naphazoline 0.025 %-pheniramine 1 drp ophthalmic (eye) BID-QID PRN 09/11/20 0.3 % eye drops (Naphcon-A) pantoprazole 20 mg tablet,delayed 20 mg PO DAILY 02/23/21 release cyclobenzaprine 5 mg tablet 5 mg PO QHS 07/28/21 aspirin 81 mg tablet,delayed 81 mg PO DAILY 10/14/21 release (Adult Aspirin Regimen) insulin regular hum U-500 conc 500 See Rx Instructions subcut 10/14/21 unit/mL(3 mL) subcut pen (Humulin QACDINNER before every meal R U-500 (Conc) Insulin Kwikpen) olmesartan 5 mg tablet (Benicar) 20 mg PO DAILY 10/14/21 rosuvastatin 40 mg tablet 40 mg PO DAILY 10/14/21 gabapentin 100 mg capsule 100 mg PO QHS PRN 11/30/21 dulaglutide 0.75 mg/0.5 mL 3 mg subcut .COMPLEX 02/25/22 subcutaneous pen injector (Trulicity) fluticasone propionate 230 2 puff inhalation BID #12 grams 03/15/22 mcg-salmeterol 21 mcg/actuation HFA inhaler (Advair HFA) Current Visit Medications: Current Medications Generic Name Dose Route Start Last Admin Trade Name Freq PRN Reason Stop Dose Admin Hyoscyamine Sulfate 0.125 mg 05/04/22 20:39 Hyoscyamine 0.125 Mg Sl/Oral/Chew SL DIRECTED PRN Ringer's Solution 1,000 mls @ 80 mls/hr 05/05/22 06:00 IV 06/03/22 23:59 [facility] IV Miscellaneous Supplies 1 each 05/05/22 06:00 Iv Access IV 06/03/22 23:59 DIRECTED KAN Ondansetron HCl 4 mg 05/04/22 20:39 Ondansetron 4 Mg/2 Ml Vial IVP Q4H PRN PRN Nausea / Vomiting Sodium Chloride 0 ml 05/05/22 06:00 Normal Saline Flush 10 Ml Syr IV 06/03/22 23:59 PRN PRN Sodium Chloride 0 ml 05/05/22 06:00 Normal Saline 10 Ml Vial IJ 06/03/22 23:59 DIRECTED PRN Sterile Water 0 ml 05/05/22 06:00 Water,Injection,Sterile 10 Ml Vial IJ 06/03/22 23:59 DIRECTED PRN PFSH Active Problems Active Problems: Problem Status Onset Code DVT prophylaxis Z29.9 Encounter for screening colonoscopy Z12.11 CHF (congestive heart failure) I50.9 Heart murmur, systolic R01.1 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 left breast History of colonoscopy (~03/2021) History of surgery Fatty tumor removed left arm Hx of cholecystectomy Hx of Meckel's diverticulum with surgery Hx of nephrostomy Nephrostomy status Status post cystoscopy Pt states stent and nephrostomy tube TMJ (temporomandibular joint syndrome) with surgical repair Tobacco Smoking/Tobacco Use Status: Never Alcohol Alcohol Intake: never Substance Use Substance use: Never Substance use type: does not use Vital Signs and Lab Results Vital Signs Most Recent Vital Signs in EMR: Most Recent Vital Signs Temp Pulse Resp BP Pulse Ox 36.5 C 75 18 114/74 98 05/05/22 06:37 05/05/22 06:37 05/05/22 06:37 05/05/22 06:37 05/05/22 06:37 Lab Results Blood Type / Crossmatch: No Data to Display Complete Blood Count: No Data to Display Complete Metabolic Panel: No Data to Display Liver Function Panel: No Data to Display Coagulation Panel: No Data to Display Cardiac Panel: No Data to Display Arterial Blood Gas: No Data to Display Venous Blood Gas: No Data to Display Pancreas Panel: No Data to Display Thyroid Panel: No Data to Display Infectious Disease: No Data to Display Blood Cultures: No Data to Display Toxicology Panel: No Data to Display Imaging and Studies Imaging and Studies Study information below may be from another EMR and interpreted by another provider. Please see original notes in EMR for more complete details. EKG Summary: DATE/TIME OF SERVICE: 12/02/212153 : 1955ERFORMING LOCATION: ER APPROVED REPORT Exam: Resting ECG Reason for Exam: epigastric pain Patient Location: E HR:86 bpm ECG Measurements Heart Rate 86 AXIS NV 164 P 73 QRSd 92 QRS 37 QT 373 T20 QTc 446 Conclusion Sinus rhythm...normal P axis, V-rate 60- 99 Stress Test Summary: 2014: possible CAD, Echocardiogram Summary: 2014: LVEF 65%, trace TR, PAS 30 mmhg. Cardiac Catheterization Summary: 2015: non-obstructive CAD, 40% LAD stenosis. 08/2021: stent placed to LAD. Carotid Artery Summary:: 2015: no sig stenosis. Pulmonary Function Summary: Date of service: 02/28/22 Time of Service: 15:02 Pulmonary Function Test Result Requesting Provider Patrizia Indications: Cough Interpretation Spirometry: There is no airflow limitation. There was a 23% decrease in FEV1 with administration of 16mg/mL of methacholine. Lung Volumes: Normal lung volumes Diffusion Capacity: Normal diffusion Airway Pressure: Normal airways resistance Impression Normal pulmonary function testing with a borderline positive methacholine challenge. Note: Stable PFT's from 2019. Clinical Correlation therefore is recommended. Other Study Summary:: Left Facial paresthesia, likely cervicogenic. Mild narrowing of right carotid bifurcation. Right vertebral appeared reduced in caliber. Degenerative disc disease, mostly at C6-C7 with large disc extrusion impinging on spinal cord.C4-C6 moderate disc protrusion with mild spinal cord deformation. Anesthesia Assessment and Plan Anesthesia History Personal History: PONV and Delayed Emergence Family History: No Family History of Anesthesia Complications Exercise Tolerance Exercise Tolerance: Metabolic Equivalents>4 Pertinent Negatives Pertinent Negatives: No Symptoms of GERD Cardiac & Pulmonary Exam Cardiac Exam: Normal S1/S2 Heart Sounds Pulmonary Exam: Clear Bilateral Breath Sounds Implantable Cardiac Device Does patient have a Pacemaker or an ICD?: No Airway Exam Known Difficult Airway: No Mallampati Class: 3 Mouth Opening: Normal (> 3cm) Thyromental Distance: Greater than 3 cm Neck Range of Motion: Full ROM Neck Circumference: Normal Teeth Condition: Generalized Poor Dentition (pt. states they break easy with no provocation.) ASA Classification ASA Score: ASA 3 Emergency Case?: No NPO Status NPO Status: NPO Clears >2 hours, Solids >8 hours Anesthesia Plan Resuscitation Status: Full Code Anesthesia Technique: General Anesthesia Airway Planned: Endotracheal Tube Monitors Used: Standard Monitors Preoperative Comments:: Left face numbness, left hearing loss, numbness down left arm with hand that feels like it always has a glove on it.
[2022-05-05] MEDS: Lactated Ringers 1,000 ML 80 ML IV (07:09)
--- NOTE | 2022-05-05 07:51 | STOM_PTH ---
PATIENT: Nallely Thompson LOC: [facility] U#:[id number] AGE/SX: 67/F ROOM: RE05/05/[address]: Wisam Martínez MD : 1955 BED: DIS: 05/05/2022 SPEC #: [id number] RECD: 05/05/22 12:45 STATUS: BLAZE REQ #: [id number] KRISTAN: 05/05/22 07:[address]: Wisam Martínez DEPT: Surgical Specimen RECD BY: Domitila Mike ENTERED: 05/05/22 12:47 SP TYPE: STOMACH OTHR DR: Haylee Baptiste V Tissues: 1 - STOMACH BIOPSY 2 - STOMACH BIOPSY 3 - ESOPHAGUS BIOPSY 4 - ESOPHAGUS BIOPSY Procedures: GROSS AND MICRO LEVEL 4 Comments: [id number]
--- NOTE | 2022-05-05 09:21 | W.ANESPOSTOP ---
Postoperative Evaluation Date, Time and Location Date Performed: 05/05/22 Time Performed: 09:21 Patient Location: Day Surgery Unit Vital Signs Most Recent Imported Vital Signs: Most Recent Vital Signs Temp Pulse Resp BP Pulse Ox 36.4 C L 71 18 111/60 100 05/05/22 08:49 05/05/22 08:49 05/05/22 08:49 05/05/22 08:49 05/05/22 08:49 Pain Score Most Recent Pain Score: Most Recent Pain Score Pain Level 0 05/05/22 08:49 Assessment Mental Status: Awake (Alert & Oriented to Patient Baseline) Airway and Respiratory Function: Patent airway with normal (patient baseline) respiratory exam Cardiovascular Function: Hemodynamically Stable Hydration Status: Adequately Hydrated Nausea & Vomiting: No Nausea or Vomiting Pain: Pt. Denies Any Pain Peripheral Nerve Block: Patient did not receive a nerve block Postoperative Comments:: Pt. is doing well, eating pudding. She denies any new neck discomfort or symptoms.
== END 2022-05-05 09:49 | disposition home or self-care (01) ==
PROVIDERS: PCP Family Medicine; Visit Provider Surgery
PROC: 0DJ68ZZ Inspection of Stomach, Via Natural or Artificial Opening Endoscopic (ICD-10-PCS; CPT 43235; principal; 2022-05-05 07:30)
DX: K21.9 Gastro-esophageal reflux disease without esophagitis (principal); Z87.19 Personal history of other diseases of the digestive system; E11.9 Type 2 diabetes mellitus without complications; K31.89 Other diseases of stomach and duodenum; K22.89 Other specified disease of esophagus
CPT/HCPCS: 43239; 88305; J2405; J2704

== ENCOUNTER 2022-06-10 15:02 | Outpatient (REF) | payer OTHER, MEDICARE, SELFPAY ==
[2022-06-10 16:00] LABS: Anion Gap 5.7 mmol/L (3-11); BUN 19 mg/dL (7-18); CO2 27.3 mmol/L (21.0-32.0); CREATININE 1.5 mg/dL (0.55-1.02); Calcium 8.7 mg/dL (8.5-10.1); Chloride 102 mmol/L (98-107); Estimated GFR 37.72 (mL/min/1.73m2); Glucose 359 mg/dL (74-106); Potassium 4.4 mmol/L (3.5-5.1); Sodium 135 mmol/L (136-145)
== END 2022-06-10 15:03 | disposition home or self-care (01) ==
LOC: NCHCN 15:02
PROVIDERS: PCP Family Medicine; Visit Provider Family Medicine
DX: Z00.00 Encounter for general adult medical examination without abnormal findings (principal); I10 Essential (primary) hypertension; N28.9 Disorder of kidney and ureter, unspecified
CPT/HCPCS: 80048

== ENCOUNTER 2023-01-16 16:39 | Outpatient (REF) | payer OTHER, MEDICARE, SELFPAY ==
[2023-01-16 17:28] LABS: Abs Immature Grans 0.04 10^3/uL (0.0-0.06); Absolute Basophil Count 0.08 10^3/uL (0.0-0.2); Absolute Eosinophil Count 0.29 10^3/uL (0.0-0.7); Absolute Lymphocyte Count 2.09 10^3/uL (1.2-3.4); Absolute Monocyte Count 0.33 10^3/uL (0.1-0.8); Absolute Neutrophil Count 6.55 10^3/uL (1.2-6.7); Basophils % 0.9; Eosinophils % 3.1; HCT 40.9 % (36.0-46.0); HGB 13.6 g/dL (11.2-15.7); Immature Grans % 0.4; Lymphocytes % 22.3; MCH 29.1 pg (27.0-33.0); MCHC 33.3 % (32.0-36.0); MCV 88 fL (80-95); MPV 11.5 fL (8.0-11.0); Monocytes % 3.5; Neutrophils % 69.8; Platelet Count 287 10^3/uL (130-400); RBC 4.67 10^6/uL (3.93-5.22); RDW 12.6 % (11.7-14.6); RDW-SD 40.1 fL; WBC 9.38 10^3/uL (4.4-10.8)
[2023-01-16 17:36] LABS: Anion Gap 7.6 mmol/L (3-11); BUN 22 mg/dL (7-18); CO2 27.4 mmol/L (21.0-32.0); CREATININE 1.4 mg/dL (0.55-1.02); Calcium 9.1 mg/dL (8.5-10.1); Chloride 98 mmol/L (98-107); Estimated GFR 40.73 (mL/min/1.73m2); Glucose 364 mg/dL (74-106); Sodium 133 mmol/L (136-145)
[2023-01-16 17:43] LABS: Prothrombin Time 9.7 sec (9.1-11.1)
== END 2023-01-16 16:40 | disposition home or self-care (01) ==
LOC: LBN 16:39
PROVIDERS: PCP Family Medicine; Visit Provider Orthopaedic Surgery
DX: G95.9 Disease of spinal cord, unspecified (principal); I25.10 Atherosclerotic heart disease of native coronary artery without angina pectoris; N28.89 Other specified disorders of kidney and ureter; I10 Essential (primary) hypertension
CPT/HCPCS: 80048; 85025; 85610

== ENCOUNTER 2023-10-13 07:56 | Outpatient (CLI) | payer OTHER, MEDICARE, SELFPAY ==
--- NOTE | 2023-10-13 07:45 | RT.EKG_ITS ---
APPROVED REPORT Exam: Resting ECG Reason for Exam: CAD Patient Location: O HR:78 bpm ECG Measurements Heart Rate 78 AXIS WA 163 P 62 QRSd 85 QRS 20 QT 351 T 48 QTc 400 Conclusion Sinus rhythm...normal P axis, V-rate 50- 99 Low voltage, precordial leads...precordial leads <1.0mV Otherwise normal ECG
== END 2023-10-13 07:57 | disposition home or self-care (01) ==
LOC: DI.CARD 07:58
PROVIDERS: PCP Family Medicine; Visit Provider Internal Medicine Cardiovascular Disease
DX: I25.10 Atherosclerotic heart disease of native coronary artery without angina pectoris (principal)
CPT/HCPCS: 93010

== ENCOUNTER 2023-12-15 12:30 | Outpatient (REF) | payer OTHER, MEDICARE, SELFPAY ==
--- OUTSIDE RECORDS SUMMARY | 2023-12-15 12:34 | XMS_ITS | Encounter Summary ---
Author Organization [facility] Address [address] [place] [id number] Care Team Providers Care Sport Psychologist Name Role Phone Haylee Baptiste MD Primary Care Provider [phone] Encounter Details Date Type Department Care Team (Late st Contact Info) Description 03/29/2021 Lab Requisition [facility] Pathology & Laboratory Medicine - [address] [address] Outr Resulting Lab, Provider Social History Tobacco Use Types Packs/Day Years Used Date Smoking Tobacco: Never Assessed Sex and Gender Information Value Date Recorded Sex Assigned at Not on file Gender Identity Not on file Sexual Orientation Not on file documented as of this encounter Plan of Treatment Not on file documented as of this encounter Procedures Procedure Name Priority Date/Time Associated Diagnosis Comments VITAMIN B12 Routine 03/26/2021 8:40 EST documented in this encounter Results * VITAMIN B12 (03/26/2021 8:40 EST) Vitamin B12 448 211 - 911 pg/mL 03/29/2021 22:38 EST [facility] Blood VENOUS BLOOD / Unknown 03/26/2021 8:40 EST 03/29/2021 21:41 EST Provider Outr Resulting Lab CHEMISTRY & BLOOD GAS ORDERABLES [facility] [address] [place] [address] documented in this encounter Visit Diagnoses Not on filedocumented in this encounter Care Teams Sport Psychologist Relationship Specialty Start Date End Date Haylee Baptiste MD [address] [place] [id number] PCP - General 10/23/15 documented as of this encounter
--- OUTSIDE RECORDS SUMMARY | 2023-12-15 12:34 | XMS_ITS | Encounter Summary ---
Author Organization [facility] Address [facility] [place] [address] Care Team Providers Care Graduate Student Name Role Phone Haylee Baptiste MD Primary Care Provider [phone] Encounter Details Date Type Department Care Team (Late st Contact Info) Description 12/05/2023 2:00 PM EDT Office Visit Hematology/Oncology at [address] [phone] Miryam Salazar, RN Malignant neoplasm of upper-inner quadrant of left breast in female, estrogen receptor positive Social History Tobacco Use Types Packs/Day Years Used Date Smoking Tobacco: Never Smokeless Tobacco: Never Alcohol Use Standard Drinks/Week Comments Never 0 (1 standard drink = 0.6 oz pur e alcohol) B1300 Health Literacy Answer Date Recor ded How often do you need to hav e someone help you when you read instructions, pamphlets, or other written material from your doctor or pharmacy? Never 08/01/2023 [facility] Utilities Answer Date Recorded In the past 12 months has [employer] electric, gas, oil, or water company threatened to shut off services in your home? No 08/01/2023 Overall Financial Resource Strain (CARDIA) Answe r Date Recorded How hard is it for you to pa y for the very basics like food, housing, medical care, and heating? Not hard at all 08/01/2023 Hunger Vital Sign Answer Date Recorded Within the past 12 months, y ou worried that your food would run out before you got the money to buy more. Never true 08/01/19 24 Within the past 12 months, t he food you bought just didn't last and you didn't have money to get more. Never true 08/01/2023 PRAPARE - Transportation Answer Date Re corded In the past 12 months, has l ack of transportation kept you from medical appointments or from getting medications? No 07/08 In the past 12 months, has l ack of transportation kept you from meetings, work, or from getting things needed for daily living? No 08/01/2023 Housing Stability Vital Sign Answer Jesús e Recorded In the last 12 months, was t here a time when you were not able to pay the mortgage or rent on time? No 08/01/2023 In the past 12 months, how m any times have you moved where you were living? 0 08/01/2023 At any time in the past 12 m onths, were you homeless or living in a alf (including now)? No 08/01/2023 IPV Inpatient Questions Answer Date Recorded Does Anyone Try to Keep You From Having Contact with Others or Doing Things Outside Your Home? no 07/19/2023 Feels Threatened by Someone no 07/07 Feels Unsafe at Home or Work/School no 07/19/2023 Physical Signs of Abuse Present no 07/19/2023 Sex and Gender Information Value Date Recorded Sex Assigned at Not on file Gender Identity Not on file Sexual Orientation Not on file documented as of this encounter Progress Notes * Miryam Salazar RN - 12/05/2023 2:00 PM EDT Images from the original note were not included. RESEARCH NURSE OFFICE NOTE [facility] 12/05/23 3 months from end of RT study visit. Study Number: [id number] Study title: A Phase III Clinical Trial Evaluating DE-escalation of Breast RAdiation (ALEJO) for Conservative Treatment of Stage I, Hormone Sensitive, HER2-Negative, Oncotype Recurrence Score less than or equal to 18, Breast Cancer. Randomized on 09/25/23 to Arm 1 : RT and HT RT 10/27/23- 11/06/23 SUBJECTIVE Nallely Velazquez presented to rad-onc clinic for f/u appointment with Dr Silva. She that note for more details. 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 She states she contracted COVID a couple weeks after completing the RT and was out of work for 5 days. She thinks some of the fatigue could be residual from this. She denies any edema of upper extremities. She started Arimdex hqwied51/14/24 . 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 HENT: Negative. Eyes: Negative. Respiratory: Negative. Negative for cough and shortness of breath. Cardiovascular: Negative. Gastrointestinal: Negative. Genitourinary: Negative. Skin: Negative She denies any pain of breast or in general. no evidence of lymphedema. Neurological: Negative. Psychiatric/Behavioral: Negative. STUDY ASSESSMENTS COMPLETED H&P see Dr Mittal' recent note Breast assessment by Dr Marte AE assessment AE/SIDE EFFECT MONITORING # AE Grade (CTCAE 5.0 ) Start date Stop Date Study Related Intervention/Outcome 1 fatigue 1 11/06/23 2 Dermatitis radiation 1 0 11/06/23 12/05/23 12/05/23 3 Breast pain 1 0 11/06/23 12/05/23 12/05/23 EDUCATION PROVIDED Advised to contact this office for any questions/concerns, as well as for any new or worsening symptoms. PLAN 1. Subject agrees to continue on study BR007 per protocol. See study tables below: 2. Next study visit due 6 months form randomization : I will call her mid . She agreed with this plan. 3. DR Burnette 01/09/24 telehealth visit. Patient verbalizes understanding of and agreement with plan. Randomized to arm 1 documented in this encounter Plan of Treatment Upcoming Encounters Date Type Department Care Team (Late st Contact Info) Description 01/09/2024 2:20 PM EST TH Visit (TeleHealth) [place] [address] Kati Burnette MD [facility] HEMATOLOGY [place] [address] 01/24/2024 9:30 AM EST Appointment XRay at [address] [place] [address] Jimmy Swann MD [facility] [place] [address] 01/24/2024 11:00 AM EST Office Visit Pain and Spine Center at [place] [address] Regulo Wang PA [facility] [place] [address] 01/24/2024 2:45 PM EST Appointment Mammography at [place] [address] 01/24/2024 3:45 PM EST Office Visit General Surgery at [place] [address] Caitlyn Hirsch MD [facility] [place] [address] 03/20/2024 9:00 AM EST Office Visit Hematology and Oncology at [place] [address] Ericka Forrest, [facility] DR [place] [address] 07/29/2024 2:00 PM EDT Office Visit Radiation Oncology at [address] [phone] Kasie Marte MD [facility] [place] [address] documented as of this encounter Visit Diagnoses Diagnosis Malignant neoplasm of upper-inner quadrant of left breast in female, estrogen receptor positive documented in this encounter Care Teams Graduate Student Relationship Specialty Start Date End Date Haylee Baptiste MD [address] [place], [place] [id number] PCP - General 01/21/10 documented as of this encounter
--- OUTSIDE RECORDS SUMMARY | 2023-12-15 12:34 | XMS_ITS | Clinical Summary ---
Author Organization [facility] Address [address] [place] [address] Care Team Providers Care Powder Press Operator Name Role Phone Haylee Baptiste MD Primary Care Provider [phone] Social History Tobacco Use Types Packs/Day Years Used Date Smoking Tobacco: Never Assessed Sex and Gender Information Value Date Recorded Sex Assigned at Not on file Gender Identity Not on file Sexual Orientation Not on file Plan of Treatment Health Maintenance Due Date Last Done Comments Hepatitis C Screen 1955 RSV Immunization ( o r 60+ Years) (1 - 1-dose 60+ series) 2014 Fall Risk Screening 2019 COVID-19 Vaccine ( season) 2023 Care Teams Powder Press Operator Relationship Specialty Start Date End Date Haylee Baptiste MD [address] [place] [address] PCP - General 10/23/15
--- OUTSIDE RECORDS SUMMARY | 2023-12-15 12:34 | XMS_ITS | Encounter Summary ---
[place] [address] Care Team Providers Care Superintendent Horticulture Name Role Phone Haylee Baptiste MD Primary Care Provider [phone] Reason for Visit * Reason Onset Date Comments Medication Management 11/15/2023 Encounter Details Date Type Department Care Team (Late st Contact Info) Description 11/15/2023 Telephone Hematology [place] [phone] Rosette Hammer, adult specialist Management Social History Tobacco Use Types Packs/Day Years [...] from your doctor or pharmacy? Never 08/01/2023 [facility] Utilities Answer Date Recorded In the past 12 months has [employer] electric, gas, oil, or water company threatened [...] any time in the past 12 m [facility], were you homeless or living in a penitentiary (including now)? No 08/01/2023 [facility] IPV Inpatient Questions Answer Date Recorded Does [...] on file documented as of this encounter Miscellaneous Notes * Telephone Encounter - Rosette Hammer RN - 11/15/2023 4:25 PM EDT Advised to start 11/19 as long as she feels better from RT Kati Burnette MD 1. Breast cancer: will start on anastrazole. AFTER RT - likely mid NOV a. Rx sent b. Needs teaching 2. adjuvant bisphosphonate- fosamax after 3 months stable on AI. Can do telemed for this visit. VM left 11/14 9:00am 11/21 AI teaching; TC with patient; Nallely started AI on 11/19 and has an telehealth visit 01/08 scheduled AI teaching: Reviewed potential S/E, how medication works, how to store medication, symptoms to report immediately, bone health and plan to start fosamax. Clinic phone number provided and patient encouraged to call should any questions or concerns arise. At this time patient did not have any questions. * Telephone Encounter - Rosette Hammer RN - 11/15/2023 7:49 AM EDT Advised to start 11/19 as long as she feels better from RT Kati Burnette MD 1. Breast cancer: will start on anastrazole. AFTER RT - likely mid NOV a. Rx sent b. Needs teaching 2. adjuvant bisphosphonate- fosamax after 3 months stable on AI. Can do telemed for this visit. VM left 11/14 9:00am documented in this encounter Plan of Treatment Upcoming Encounters Date Type Department Care Team (Late st Contact Info) Description 01/09/2024 2:20 PM EST TH Visit (TeleHealth) Hematology [place] [phone] Kati Burnette MD [facility] [place] [address] 01/24/2024 9:30 AM EST Appointment XRay at [address] [place] [phone] Jimmy Swann MD [facility] [place] [address] 01/24/2024 11:00 AM EST Office Visit Pain [place] [phone] Regulo Wang PA [facility] [place] [address] 01/24/2024 2:45 PM EST Appointment [place] [phone] 01/24/2024 3:45 PM EST Office Visit General Surgery at [place] [phone] Caitlyn Hirsch MD [facility] [place] [address] 03/20/2024 9:00 AM EST Office Visit Hematology and Oncology at [place] [phone] Ericka Forrest, [facility] [place] [address] 07/29/2024 2:00 PM EDT Office Visit Radiation Oncology at [address] [phone] Kasie Marte MD [facility] [place] [place] [address] documented as of this encounter Visit Diagnoses Not on filedocumented in this encounter Care Teams Superintendent Horticulture Relationship Specialty Start Date End Date Haylee Baptiste MD [address] [place] [address] PCP - General 01/21/10 documented as of this encounter
--- OUTSIDE RECORDS SUMMARY | 2023-12-15 12:34 | XMS_ITS | Encounter Summary ---
Author Organization [facility] [place] [address] Care Team Providers Care Network Firewall Engineer Name Role Phone Haylee Baptiste MD Primary Care Provider [phone] Encounter Details Date Type Department Care Team (Late st Contact Info) Description 12/11/2023 Telephone [place] [address] Katya Vargas, POLI Social History Tobacco Use Types Packs/Day Years [...] from your doctor or pharmacy? Never 08/01/[address] [facility] Utilities Answer Date Recorded In the past 12 months has th e [employer], gas, oil, or water [employer] threatened to shut off services in your [...] any time in the past 12 m [facility], were you homeless or living in a custodial (including now)? No 08/01/2023 IPV Inpatient Questions [...] as of this encounter Plan of Treatment Upcoming Encounters Date Type Department Care Team (Late st Contact Info) Description 01/09/2024 2:20 PM EST TH Visit (TeleHealth) Hematology [place] [address] Kati Burnette MD [facility] DR HEMATOLOGY [place] [address] 01/24/2024 9:30 AM EST Appointment XRay at [address] [place] [phone] Jimmy Swann MD [facility] [place] [address] 01/24/2024 11:00 AM EST Office Visit Pain and Spine Center at [place] [phone] Regulo Wang PA [facility] [address] 01/24/2024 2:45 PM EST Appointment Mammography at [place] [address] 01/24/2024 3:45 PM EST Office Visit General Surgery at [place] [address] Caitlyn Hirsch MD [facility] [place] [address] 03/20/2024 9:00 AM EST Office Visit Hematology and Oncology at [place] [address] Ericka Forrest, [facility] DR HEMATOLOGY [place] [address] 07/29/2024 2:00 PM EDT Office Visit Radiation Oncology at [address] [phone] Kasie Marte MD [facility] [place] [address] documented as of this encounter Visit Diagnoses Not on filedocumented in this encounter Care Teams Network Firewall Engineer Relationship Specialty Start Date End Date Haylee Baptiste MD [address] [place] [address] PCP - General 01/21/10 documented as of this encounter
--- OUTSIDE RECORDS SUMMARY | 2023-12-15 12:34 | XMS_ITS | Encounter Summary ---
Author Organization [facility] Address [address] [place] [address] Care Team Providers Care Instructor Apparel Manufacture Name Role Phone Unavailable Primary Care Provider Unavailabl e Encounter Details Date Type Department Care Team (Late st Contact Info) Description 05/28/2007 Results Only [facility] - Maple conversion [address] [place] [address] Sam Cooper MD [address] [place] [id number] Social History Tobacco Use Types Packs/Day Years Used Date Smoking Tobacco: Never Assessed Sex and Gender Information Value Date Recorded Sex Assigned at Not on file Gender Identity Not on file Sexual Orientation Not on file documented as of this encounter Plan of Treatment Not on file documented as of this encounter Procedures Procedure Name Priority Date/Time Associated Diagnosis Comments SURGICAL PATHOLOGY Routine 05/28/2007 0:00 EDT documented in this encounter Results * SURGICAL PATHOLOGY (05/28/2007 0:00 EDT) Pathology Report: SURGICAL PATHOLOGY REPORT Reports generated via electronic interface contain original data; however they are lacking the format of the original report. Caution should be taken when reading/interpretin g unformatted reports. Name: ? NATALIIAGABRIEL PEDROZA ? Accession #: ? [id number] ? : ? 1955 (Age: 52) ??F ? Collect Date: ? 05/28/2007 ? Location: ? [facility] ? Receive Date: ? 05/28/2007 ? Provider: SAM COOPER MD Copy to: ЕЛЕНА ASENCIO MD ? Final Pathologic Diagnosis: A. ?Stomach, pylorus, biopsy: 1. ?Antral mucosa without significant abnormality. 2. ? Helicobacter pylori-like organisms are absent on H+E stained sections. B. ?Stomach, antrum, biopsy: 1. ?Antral mucosa without significant abnormality. 2. ? Helicobacter pylori-like organisms are absent on H+E stained sections. C. ?Stomach, body, biopsy: 1. ?Fundic mucosa without significant abnormality. 2. ? Helicobacter pylori-like organisms are absent on H+E stained sections. D. ?Esophagus, gastroesophageal junction, biopsy: 1. ?Squamocolumnar junctional mucosa with mild chronic inflammation and reactive epithelial changes. 2. ? Negative for intestinal metaplasia or dysplasia. ?? Document reviewed and electronically signed by: Kathy Olmos MD Report ??Date: 05/29/2007 14:16 By the signature above, the attending physician certifies that he/she has personally conducted a gross and/or microscopic examination of the described specimens and rendered or confirmed the above diagnosis. Specimen(s) Received: A. ?Bx pylorus (#1) B. ? Bx antrum (#2) C. ? Bx gastric body (#3) D. ? Bx EG junction/Sagastume's (#4) Clinical History: ? H/O Sagastume's esophagus Gross Description: ? Received in Hollande's fixative labelled HawlkWeeks and bx pylorus is a 0.2 x 0.2 x 0.1 cm portion of hinds-pink soft tissue. ??Submitted intact as (A). Received in Hollande's fixative labelled HawlkWeeks and bx antrum is a 0.2 x 0.2 x 0.1 cm portion of hinds-pink soft tissue. ??Submitted intact as (B). Received in Hollande's fixative labelled HawlkWeeks and bx gastric body is a 0.2 x 0.1 x 0.1 cm portion of hinds soft tissue. ??Submitted intact as (C). Received in Hollande's fixative labelled HawlkWeeks and bx EG junction/Sagastume's are four portions of hinds-pink soft tissue averaging 0.2 x 0.2 x 0.1 cm. ??Submitted in toto as (D). ??(Christy Hutchinson)/[facility] End of Report RITA GOLDBERG 05/28/2007 05/28/2007 15: 42 EDT Sam Cooper MD PATHOLOGY ORDERABLES Performing Organization Address City/State/[facility] Co de Phone Number RITA GOLDBERG [address] [place] [address] documented in this encounter Visit Diagnoses Not on filedocumented in this encounter
--- OUTSIDE RECORDS SUMMARY | 2023-12-15 12:34 | XMS_ITS | Continuity of Care Document ---
Author Organization [facility] Address [address] [place] [address] Care Team Providers Care Motor Vehicles Inspector Name Role Phone Haylee Baptiste Primary Care Physician Encounter [facility] Date(s): 09/18/23 - 09/18/[address] [address] Discharge Disposition: Home or Self Care Attending Physician: Kasie Marte MD Admitting Physician: Kasie Marte MD Referring Physician: Kasie Marte MD Allergies, Adverse Reactions, Alerts Substance Reaction Severity Status SHELLFISH DERIVED Unknown Active codeine Unknown Active meperidine Unknown Active morphine Unknown Active iodine topical Unknown Active lisinopril Unknown Active oxaprozin Unknown Active amlodipine-benazepril Unknown Active escitalopram Unknown Active predniSONE Unknown Active metFORMIN Unknown Active hepatitis B adult vaccine Unknown Ac tive Immunizations Given and Recorded Vaccine Date Status Refusal Reason SARS-CoV-2 (COVID-19) mRNA-1273 vaccine 02/26/20 R ecorded SARS-CoV-2 (COVID-19) mRNA-1273 vaccine 01/28/20 R ecorded pneumococcal 13-valent conjugate vaccine 12/09/19 Recorded influenza virus vaccine, live 11/10/19 Recorded influenza virus vaccine, live 01/08/19 Recorded influenza virus vaccine, live 10/18/11 Recorded tetanus/diphth/pertuss (Tdap) adult/adol 07/20/10 Recorded pneumococcal 23-polyvalent vaccine 02/06/06 Record ed Results Laboratory List Name Date Automated Diff 09/18/23 CBC w/ Diff 09/18/23 Most recent to oldest [Reference Range]: 1 WBC [5.0-10.0 x10^3/mcL] 9.6 x10^3/mcL (09/18/23 12:30 PM) RBC [4.1-5.3 x10^6/mcL] 4.5 x10^6/mcL (09/18/23 12:30 PM) Neutro Auto [40.0-75.0 %] 60.0 % (09/18/23 12:30 PM) Lymph Auto [20.0-50.0 %] 33.0 % (09/18/23 12:30 PM) [place] Auto [2.0-15.0 %] 4.3 % (09/18/23 12:30 PM) Basophil Auto [0.0-1.0 %] 0.8 % (09/18/23:30 PM) MCV [80.0-96.0 fL] 88.3 fL (09/18/23 12:30 PM) MCHC [31.0-35.0 g/dL] 32.8 g/dL (09/18/23:30 PM) Hct [37.0-47.0 %] 40.0 % (09/18/23 12:30 PM) MCH [26.0-32.0 pg] 28.9 pg (09/18/23 12:30 PM) Neutro Absolute 5.8 x10^3/mcL *NA* (09/18/23 12:30 PM) Hgb [12.0-16.0 g/dL] 13.1 g/dL (09/18/23 12:30 PM) Platelets [130-450 x10^3/mcL] 280 x10^3/ mcL (09/18/23 12:30 PM) RDW-CV [11.5-14.5 %] 12.9 % (09/18/23 12:30 PM) Imm Gran Auto [0.0-0.9 %] 0.3 % (09/18/23 12:30 PM) Slide Review Not Indicated (09/18/23 12:30 PM) Eos, Auto [1.0-6.0 %] 1.6 % (09/18/23 12:30 PM) Social History Social History Type Response Sex Female Patient Care team information Care Team Personnel Name: Haylee Baptiste MD Position: No Access Member Role: Informed Provider Address: Address: Family Medicine [address] [place] [address] [place] [address]- Care Team Related Persons Name: BAYRON MCELROY
--- OUTSIDE RECORDS SUMMARY | 2023-12-15 12:34 | XMS_ITS | Encounter Summary ---
Author Organization [facility] Address [facility] [place] [address] Care Team Providers Care Exhaust And Muffler Fitter Name Role Phone Haylee Baptiste MD Primary Care Provider [phone] Encounter Details Date Type Department Care Team (Latest Contact Info) Description 12/04/2023 Travel Social History Tobacco Use Types Packs/Day Years [...] from your doctor or pharmacy? Never 08/01/2023 [facility] Utilities Answer Date Recorded In the past 12 months has th e electric, gas, oil, or water company threatened [...] any time in the past 12 m [facility], were you homeless or living in a retirement (including now)? No 08/01/2023 IPV Inpatient Questions [...] TH Visit (TeleHealth) H[place] [address] Kati Burnette MD [facility] [place] [address] 01/24/2024 9:30 AM EST Appointment XRay at [address] [place] [phone] Jimmy Swann MD [facility] [place] [place] [address] 01/24/2024 11:00 AM EST Office Visit [place] [address] Regulo Wang PA [facility] [address] 01/24/2024 2:45 PM EST [place] [address] 01/24/2024 3:45 PM EST Office [place] [address] Caitlyn Hirsch MD [facility] [place] [address] 03/20/2024 9:00 AM EST Office Visit Hematology [place] [address] Ericka Forrest [facility] DR [place] [address] 07/29/2024 2:00 PM EDT Office Visit Radiation Oncology at [address] [phone] Kasie Marte MD [facility] [place] [address] documented as of this encounter Visit Diagnoses Not on filedocumented in this encounter Care Teams Exhaust And Muffler Fitter Relationship Specialty Start Date End Date Haylee Baptiste MD [address] [place] [address] PCP - General 01/21/10 documented as of this encounter
--- OUTSIDE RECORDS SUMMARY | 2023-12-15 12:34 | XMS_ITS | Clinical Summary ---
Author Organization [facility] [place] [address] Care Team Providers Care Diamond Polisher Name Role Phone Haylee Baptiste MD Primary Care Provider [phone] Allergies Active Allergy Reactions Criticality Noted Date Comments Amlodipine High 06/17/2022 Other Reaction(s): cough Codeine Phosphate Nausea And Vomiting Medium Hepatitis B Virus Vaccine 06/17/2022 Other Reaction(s): local skin reaction Iodinated Contrast Media Anaphylaxis High 06/17/2022 Iodine And Iodide Containing Products Anaphylaxis High Lisinopril 06/17/2022 Other Reaction(s): cough, other Meperidine Hcl Nausea And Vomiting Medium Nausea/Vomiting Metformin Other (See Comments) High 06/17/2022 Other Reaction(s): Diarrhea Morphine Sulfate Nausea And Vomiting Medium Oxaprozin Nausea And Vomiting Medium Prednisone Rash Medium CIS - Rash with dose greater than 20mg. Shellfish Derived Anaphylaxis High 06/17/2022 Other Reaction(s): other Sulindac Nausea And Vomiting Medium Medications Medication Sig Dispensed Refills Start Date End Date Status albuteroL 90 mcg/actuation HFA Aerosol Inhaler Every 4 hours. Activ e olmesartan (BENICAR) 20 mg Tablet Take 20 mg by mouth daily. Active pantoprazole EC (Protonix) 20 mg Tablet, Delayed Release (E.C.) Take 20 mg by mouth daily. Active insulin regular human U-500 (HumuLIN R U-500, Conc, Kwikpen) 500 unit/mL (3 mL) Insulin Pen Take 10 units with breakfast, 5 units at lunch and 10 units at bedtime 09/01/2021 Active Additional Information Patient taking differently: Take 15 units with breakfast,10 units at lunch and 15 units at bedtime, Reported on 01/17/2023 metoprolol succinate XL (Toprol-XL) 50 mg Tablet Sustained Release 24 hr Take 1 tablet by mouth daily. 30 tablet 12 09/01/2021 Active nitroGLYcerin (Nitrostat) 0.4 mg Tablet, Sublingual Place 1 tablet under the tongue every 5 minutes as needed for Chest pain. 25 tablet 09/01/2021 Active Additional Information Patient not taking.Reported on 10/24/2023 atorvastatin (Lipitor) 80 mg tablet Take 80 mg by mouth nightly. Active benzonatate (Tessalon Perles) 100 mg capsule Take 100 mg by mouth 3 times daily as needed. 09/11/2020 Active EPINEPHrine 0.3 mg/0.3 mL Auto-Injector Inject 0.3 mg into the muscle once as needed. 09/11/2020 Active FreeStyle Alonzo 14 Day Sensor Kit 01/02/2023 Active fluticasone propion-salmetero L (ADVAIR HFA) 230-21 mcg/actuation HFA Aerosol Inhaler Inhale 1 puff into the lungs 2 times daily. 03/15/2022 Active fluticasone propionate (Flonase) 50 mcg/actuation [place], Suspension 1 spray by Each Nare route as needed. 01/05/2015 Active gabapentin (Neurontin) 100 mg capsule Take 100 mg by mouth nightly as needed. 11/30/2021 Active montelukast (Singulair) 10 mg tablet Take 10 mg by mouth daily. 06/17/2022 Active ondansetron (Zofran) 4 mg tablet Take 4 mg by mouth as needed. 03/06/2018 Active triamcinolone (ARISTOCORT) 0.5 % Cream Apply topically 3 times daily as needed. 03/06/2018 Active senna-docusate (Pericolace) 8.6-50 mg Tablet Take 2 tablets by mouth 2 times daily as needed for Constipation. 01/19/2023 Active dulaglutide (Trulicity) 4.5 mg/0.5 mL Pen InjectorIndicatio ns:type 2 diabetes mellitus Inject 0.5 mLs subcutaneously once a week. Indications: type 2 diabetes mellitus 6 mL 3 01/25/2023 Active acetaminophen (Tylenol) 500 mg tablet Take 2 tablets by mouth every 6 hours as needed for Pain. 07/19/2023 Active Additional Information Patient not taking.Reported on 10/24/2023 ibuprofen (Advil) 600 mg tablet Take 1 tablet by mouth every 6 hours as needed for Pain. 07/19/2023 Active emollient combination no.111 (REMEDY PHYTOPLEX MOISTURIZER TOP) Apply topically. Phytoplex Remedy Moisturizer: Apply to area of radiation twice a day but no less than 2 hours before a treatment. Active anastrozole (Arimidex) 1 mg tablet Take 1 tablet by mouth daily. 90 tablet 3 10/10/2023 10/09/2024 Active loperamide (Imodium A-D) 2 mg capsule Take 2 mg by mouth 4 times daily as needed for Diarrhea. Active Active Problems Problem Noted Date Diagnosed Date Malignant neoplasm of upper- inner quadrant of left breast in female, estrogen receptor positive 06/09/2023 Cancer Staging:Pathologic stage from 07/19/2023:Stage IA(pT1c, pN0(sn), cM0, G2, ER+, MT+, HER2-) - Signed by Kinjal Pete MD on 07/30/2023 Overview (06/09/2023): 06/05/23 bx [facility]: ER+/MT+/HER2 negative left breast IDC, intermediate grade, and DCIS, intermediate grade. Per [facility] 1.8 cm, located at 11:00, 7FN S/p C6-7 ACDF 01/18/23 Swann 01/18/2023 Cervical myelopathy 01/05/2023 HNP (herniated nucleus pulposus), cervical 09/13 NSTEMI (non-ST elevated myocardial infarction) 0 08/29/2021 Closed fracture of left wrist 11/04/2016 Left hand pain 10/18/2016 Achilles tendon tear, left 09/06/2016 Type 2 diabetes mellitus wit h hyperglycemia, with long-term current use of insulin 09/06/2016 Hypertension 09/06/2016 FPC current use of antithrombotics/antipla telets 09/06/2016 Prinzmetal angina 09/06/2016 Encounters Date Type Department Care Team Description 12/11/2023 Orders Only [facility] [place] [phone] Katya Vargas LPN S/P cervical spinal fusion; Cervical myelopathy 12/11/2023 Telephone [facility] [place] [phone] Katya Vargas LPN 12/11/2023 Telephone [facility] [place] [phone] Katya Vargas LPN 12/05/2023 2:00 PM EDT Office Visit Hematology/Oncolog y at [address] [phone] Miryam Salazar, RN Malignant neoplasm of upper-inner quadrant of left breast in female, estrogen receptor positive 12/05/2023 2:00 PM EDT Office Visit Radiation Oncology at [address] [phone] Kasie Matre MD S/P radiotherapy 12/04/2023 Travel 11/15/2023 Telephone Hematology and Oncology at [place] [phone] Rosette Hammer, battery filler Management 11/07/2023 Orders [place] [phone] Caitlyn Hirsch MD Malignant neoplasm of upper-inner quadrant of left breast in female, estrogen receptor positive 11/06/2023 8:00 AM EDT Office Visit Hematology/Oncolog y at [address] [phone] Miryam Salazar, RN Malignant neoplasm of upper-inner quadrant of left breast in female, estrogen receptor positive 11/06/2023 Notes Only Radiation Oncology at [address] [phone] Kasie Marte MD 11/06/2023 [place] [address] Brittaney Cablalero 11/06/2023 Travel 11/03/2023 Travel 11/01/2023 Travel 10/31/2023 8:15 AM EDT Office Visit Radiation Oncology at [address] [place] [phone] Kasie Marte MD Malignant neoplasm of upper-inner quadrant of left breast in female, estrogen receptor positive 10/30/2023 Travel 10/27/2023 Travel 10/25/2023 Travel 10/24/2023 9:00 AM EDT Office Visit Radiation Oncology at [address] [place] [address] Kasie Marte MD Malignant neoplasm of upper-inner quadrant of left breast in female, estrogen receptor positive 10/23/2023 Travel 10/19/2023 Travel 10/18/2023 Travel 10/17/2023 9:15 AM EDT Office Visit Radiation Oncology at [address] [place] [address] Kasie Marte MD Malignant neoplasm of upper-inner quadrant of left breast in female, estrogen receptor positive 10/16/2023 Travel 10/14/2023 Travel 10/12/2023 Travel 10/10/2023 10:30 AM EDT TH Visit (TeleHealth) Hematology [place] [address] Kati Burnette MD Malignant neoplasm of upper-inner quadrant of left breast in female, estrogen receptor positive 10/10/2023 8:45 AM EDT Office Visit Radiation Oncology at [address] [place] [address] Kasie Marte MD Malignant neoplasm of upper-inner quadrant of left breast in female, estrogen receptor positive 10/10/2023 Travel 10/05/2023 Telephone Hematology/Oncolog y at [address] [place] [address] Miryam Salazar RN 10/05/2023 Travel 10/05/2023 Notes Only [facility] [place] [address] Brittaney Caballero 10/03/2023 11:00 AM EDT Ancillary Appointment [place] [address] Kasie Marte MD Malignant neoplasm of upper-inner quadrant of left breast in female, estrogen receptor positive 10/03/2023 Notes Only Radiation Oncology at [address] [phone] Kati Lua, COLT 10/03/2023 Travel 09/26/2023 Travel 09/25/2023 Telephone Hematology/Oncolog y at [address] [phone] Miryam Salazar, RN 09/25/2023 Telephone Hematology/Oncolog y at [address] [phone] Rowan Yung 09/14/2023 Telephone Radiation Oncology at [address] [phone] Miryam Salazar, RN 09/14/2023 Orders Only Radiation Oncology at [address] [phone] Kasie Marte MD Malignant neoplasm of upper-inner quadrant of left breast in female, estrogen receptor positive from Last 3 Months Family History Medical History Relation Comments Diabetes Father Diabetes Mother Heart Disease Mother Breast Cancer Neg Hx Cancer Neg Hx Ovarian Cancer Neg Hx Relation Status Comments Father Mother Alive Social History Tobacco Use Types Packs/Day Years [...] from your doctor or pharmacy? Never 08/01/2023 C Utilities Answer Date Recorded In the past 12 months has e [employer], gas, oil, or water company threatened to [...] any time in the past 12 m [facility], were you homeless or living in a alf (including now)? No 08/01/2023 DH IPV Inpatient [...] on file Sexual Orientation Not on file Last Filed Vital Signs Vital Sign Reading Time Taken Comments Blood Pressure 135/64 12/05/2023 2:06 PM EDT Pulse 68 12/05/2023 2:06 PM EDT Temperature 36.2 ??C (97.1 ??F) 12/05/2023 2:06 PM ED T Respiratory Rate 18 12/05/2023 2:06 PM EDT Oxygen Saturation 100% 12/05/2023 2:06 PM EDT Inhaled Oxygen Concentration - - Weight 72.3 kg (159 lb 6.4 oz) 12/05/2023 2:06 P M EDT Height 157.5 cm (5' 2) 10/10/2023 8:45 AM EDT Body Mass Index 29.15 10/10/2023 8:45 AM EDT Plan of Treatment Upcoming Encounters Date Type Department Care Team (Late st Contact Info) Description 01/09/2024 2:20 PM EST TH Visit (TeleHealth) Hematology and Oncology at [place] [phone] Kati Burnette MD [facility] [address] [place] [address] 01/24/2024 9:30 AM EST Appointment XRay at [address] [place] [phone] Jimmy Swann MD [facility] [place] [address] 01/24/2024 11:00 AM EST Office Visit Pain and Spine Center at [address] Regulo Wang PA [facility] [place] [address] 01/24/2024 2:45 PM EST Appointment Mammography at [address] 01/24/2024 3:45 PM EST Office Visit General Surgery at [place] [phone] Caitlyn Hirsch MD [facility] [place] [address] 03/20/2024 9:00 AM EST Office Visit Hematology and Oncology at [place] [phone] Ericka Forrest, [facility] [place] [address] 07/29/2024 2:00 PM EDT Office Visit Radiation Oncology at [address] [phone] Kasie Marte MD [facility] [place] [address] Health Maintenance Due Date Last Done Comments CT Colonography 1954 Colonoscopy 1954 Colorectal Cancer Screening 1954 FIT DNA 1954 FIT 1954 Sigmoidoscopy (10 year) with FIT yearly 1954 Sigmoidoscopy 1954 Pneumoccocal Vaccine: 65+ (1 of 2 - PCV) 01/13/1960 DM Opthalmology Exam 01/13/1964 DM Urine Microalbumin yearly 01/13/1964 Hepatitis C Screening 01/13/1972 Tetanus/Diphtheria/Pertussis Vaccines (1 - Tdap) 1973 Breast Cancer Share Decision Needed 1994 Zoster vaccine (1 of 2) 01/13/2004 Breast Cancer screening 02/16/2013 02/16/2011 Bone Density Scan 2019 DM Hemoglobin A1c 04/19/2023 01/18/2023, , 09/06/2016 Covid-19 Vaccine (3 - 2023-2 5 season) 2023 02/26/2020, 01/28/2020 Influenza (Flu) vaccine (1 o f 1 - Influenza standard series) 10/08/2023 DM Creatinine yearly 06/07/2024 06/08/2023, 01/19/2023, 01/18/2023, Additional history exists Medical Devices Implanted Type Area Home Health Cna Device Identifier Shelf Expiration Date Model / Serial / Lot Breast Clip-06/05/19 24 Implanted:Qt y: 1 on 06/05/2023 by Dorothy Hammond MD Breast Clip Left: Breast Bard - 0614 [employer] ULTRACOR ULTRASOUND ENHANCED VISH / / [id number] Description:VISH Graft Bone Block [id number] Lordotic Asr Cortical-Can cellous ([id number]) (Autoreq) - [id number] Implanted:Qt y: 1 on 01/18/2023 by Jimmy Swann MD at [facility] IMPLANTS Midline: Neck [employer] - MED[employer]IC 07/13/2024 [id number] / [id number] / Screw Spinal 4.2x12mm Pedicle St Sld Ti ([id number]) (Autoreq) - [id number] Implanted:Qt y: 4 on 01/18/2023 by Jimmy Swann MD at [facility] IMPLANTS Midline: Neck [employer] GLOBUS MED 150.812 / / Plate Spinal Anterior Cervical 12mm Level 1 Ti ([id number]) (Autoreq) - [id number] Implanted:Qt y: 1 on 01/18/2023 by Jimmy Swann MD at [facility] IMPLANTS Midline: Neck [employer] MED 150.112 / / Procedures Procedure Name Priority Date/Time Associated Diagnosis Comments CT RAD ONC CHEST INTERP ONLY Routine 10/03/2023 11:58 AM EDT Primary malignant neoplasm of upper inner quadrant of breast, left LAB SCAN 09/18/2023 12:00 AM EDT COMPREHENSIVE METABOLIC PANEL Routine 06/08/2023 2:43 PM EDT Malignant neoplasm of left breast in female, estrogen receptor positive, unspecified site of breast HEMOGLOBIN A1C Routine 01/18/2023 12:20 PM EST MAMMO DIAGNOSTIC CAD BILATERAL Routine 02/16/2011 1:46 PM EST Abnormal mammogram, unspecified from Last 3 Months or Most Recently Relevant to Health Maintenance Results * CT Rad Onc Chest Interp Only (10/03/2023 11:58 AM EDT) WORKSTATION ID [id number] RAD Anatomical Region Laterality Modality Chest Computed Tomogra phy Impressions 10/03/2023 12:[address] obtained for radiation therapy planning purposes. Thank you for letting us participate in the care of this patient. ??If you are a health care provider and have any questions regarding this report, please contact the number below. ??For patients who have questions please contact the health health care aide that requested your imaging first. ? Electronically signed by: Buddy Velasquez DO, [facility] ([phone]), at 10/03/2023 12:34 PM Narrative 10/03/2023 12:34 PM EDT EXAMINATION: CT RAD ONC CHEST INTERP ONLY CLINICAL HISTORY: 68 y/o f w/breast ca, L, IDC w/lobular features, gr 2, ER+MT+, Her2-, s/p lumpectomy & SNB, pT1c(m) pN0. ??Oncotype DX 14. ??Enrolled on BR-0007 evaluating xrt omission. C50.212, Malignant neoplasm of upper-inner quadrant of left female breast TECHNIQUE: Limited CT without the use of oral or IV contrast performed for the purposes of localization for radiation treatment. COMPARISON: There is no similar prior examination provided for comparison. FINDINGS: Limitations: Lack of intravenous contrast limits evaluation of the visceral organs, mediastinum, and vascular structures. Associate Professor Of Biology Images: Noncontributory. Lungs and airways: There is mild dependent atelectasis bilaterally. ??There is mosaic attenuation in the bilateral lower lobes, likely due to respiratory motion artifact. ??There is no focal pulmonary opacity or nodule. ??The central airways are patent. ??There is no endobronchial or endotracheal lesion. ??There is no pleural effusion or pneumothorax. Soft tissue structures: The mediastinal fat is preserved. ??There is a small hiatal hernia. Heart, pleura, pericardium: Cardiac size is within normal limits. ??There is dense calcification versus a coronary stent within the proximal left anterior descending coronary artery. ??The unenhanced aorta and pulmonary arteries are normal in course. ??There is physiologic pericardial fluid. Inferior neck: Visualized structures within the inferior neck are within normal limits. Superior abdomen: There is been prior cholecystectomy with surgical clips within the gallbladder fossa. Body wall: There are postsurgical changes in the left breast with dermal thickening and heterogeneity of the subcutaneous tissues. ??There is no focal fluid collection. ??There are similar postsurgical changes in the left adnexa without a focal fluid collection. Osseous structures: There is been prior anterior cervical spine fixation. ??There are no suspicious osseous lesions. Procedure Note Buddy Velasquez, DO - 10/03/2023 EXAMINATION: CT RAD ONC CHEST INTERP ONLY CLINICAL HISTORY: 68 y/o f w/breast ca, L, IDC w/lobular features, gr 2,ER+MT+, Her2-, s/p lumpectomy & SNB, pT1c(m) pN0. Oncotype DX 14. Enrolled on BR-0007 evaluating xrt omission. C50.212, Malignant neoplasm of upper-inner quadrant of left femalebreast TECHNIQUE: Limited CT without the use of oral or IV contrast performed forthe purposes of localization for radiation treatment. COMPARISON: There is no similar prior examination provided forcomparison. FINDINGS: Limitations: Lack of intravenous contrast limits evaluation of thevisceral organs, mediastinum, and vascular structures. Associate Professor Of Biology Images: Noncontributory. Lungs and airways: There is mild dependent atelectasis bilaterally. Thereis mosaic attenuation in the bilateral lower lobes, likely due torespiratory motion artifact. There is no focal pulmonary opacity or nodule. Thecentral airways are patent. There is no endobronchial or endotracheal lesion.There is no pleural effusion or pneumothorax. Soft tissue structures: The mediastinal fat is preserved. There is asmall hiatal hernia. Heart, pleura, pericardium: Cardiac size is within normal limits. Thereis dense calcification versus a coronary stent within the proximal leftanterior descending coronary artery. The unenhanced aorta and pulmonary arteriesare normal in course. There is physiologic pericardial fluid. Inferior neck: Visualized structures within the inferior neck are withinnormal limits. Superior abdomen: There is been prior cholecystectomy with surgical clipswithin the gallbladder fossa. Body wall: There are postsurgical changes in the left breast with dermal thickening and heterogeneity of the subcutaneous tissues. There is nofocal fluid collection. There are similar postsurgical changes in the leftadnexa without a focal fluid collection. Osseous structures: There is been prior anterior cervical spine fixation.There are no suspicious osseous lesions. IMPRESSION CT obtained for radiation therapy planning purposes. Thank you for letting us participate in the care of this patient. If youare a health care provider and have any questions regarding this report,please contact the number below. For patients who have questions please contactthe health health care aide that requested your imaging first. Electronically signed by: Buddy Velasquez DO, [facility]([phone]), at 10/03/2023 12:34 PM Kasie Marte MD IMG OUTSIDE INTERPRE TATION ORDERABLES * Scan Doc: Lab (09/18/2023 12:00 AM EDT) Narrative 09/18/2023 12:00 AM EDT Ordered by an unspecified provider. Scanning Provider MEDIA MGR SCAN EXT O RDR/RSLT * (ABNORMAL) Comprehensive metabolic panel (non-fasting) (06/08/2023 2:43 PM EDT) Glucose 189 65 - 199 mg/dL [facility] Comment:Diabetes: >=200 mg/d L plus symptoms Blood Urea Nitrogen 20(H) 8 - 18 mg/dL [facility] Creatinine 1.28(H) 0.70 - 1.20 mg/dL [facility] Sodium 138 135 - 145 mmol/L [facility] Potassium 4.1 3.5 - 5.0 mmol/L [facility] Comment: Please note: ??Patients with WBC >100,000 may have falsely elevated Potassium levels. ??For accurate Potassium quantification in these patients send serum separator tube (gold top) for subsequent determinations. ??Contact the Clinical Chemistry Laboratory if there are any questions. Chloride 100 98 - 107 mmol/L [facility] Carbon Dioxide 24 22 - 31 mmol/L [facility] Anion Gap 14 5 - 15 mmol/L [facility] Calcium 9.4 8.5 - 10.5 mg/dL [facility] Protein, Total 7.2 6.1 - 8.0 g/dL [facility] Albumin 4.1 3.2 - 5.2 g/dL [facility] Aspartate Aminotransferase 11 0 - 30 unit/L [facility] Alanine Aminotransferase 20 0 - 30 unit/L [facility] Alkaline Phosphatase 156(H) 35 - 105 unit/L [facility] Bilirubin, Total 0.2 0.2 - 1.3 mg/dL [facility] Est Glomerular Filtration Rate 45(L) >=60 mL/min/1. 73 m?? [facility] Comment: This patient's estimated GFR was calculated using the 2020 CKD-EPI equation. The estimated GFR can vary from the measured GFR by up to 30% in the absence of rapidly changing kidney function. Assessment of the estimated GFR is not appropriate when creatinine concentrations are rapidly changing. For clinical situations in which a more precise estimate of GFR is necessary, consider alternative methods of GFR estimation such as a 24-hour urine creatinine clearance. Assignment of CKD stage 1-5 for patients with an eGFR near the transition point between stages may be based on clinical assessment of muscle mass and symptoms in addition to eGFR. Blood 06/08/2023 2:43 PM EDT 06/08/2023 2:48 PM EDT Narrative Resulting Agency Comment Spec In Lab Caitlyn Hirsch MD CHEMISTRY ORDERAB LES [facility] [place] [address] * (ABNORMAL) Hemoglobin A1c (01/18/2023 12:20 PM EST) Hemoglobin A1c 9.6(H) 4.3 - 5.6 % [facility] Comment: Reference Range: 4.3 - 5.6% 5.7 - 6.4% - Increased Risk of Developing Diabetes Mellitus >= 6.5% - Consistent with diagnosis of Diabetes Mellitus In the absence of hyperglycemia (i.e. plasma glucose > 200 mg/dL) or classic symptoms of hyperglycemia a repeat measurement of HbA1c should be performed on a separate sample to confirm the diagnosis. Diagnosis and Classification of Diabetes Mellitus, Diabetes Care 2013; 36: Suppl. 1, G68-08 Estimated Average Glucose 229 mg/dL [facility] Comment: Note: The eAG calculation has not been proven valid for women, individuals below 18 years old or above 70 years old, or individuals with hemoglobinopathies. Estimated average glucose (eAG) is calculated from the equation described in: Colin CRAWFORD, Issac J, Libby R, et al. ??Translating the A1C assay into estimated average glucose values. ??Diabetes Care 2008:31(8):5585-5943. Additional resources are available on the ADA website (diabetes.org). Blood 01/18/2023 12:2 0 PM EST 01/18/2023 12:40 PM EST Narrative Resulting Agency Comment Spec In Lab Anisa Hernandez MAINTENANCE PERSON CHEMISTRY ORDERABLE S Performing Organization Address City/State/[facility] Co de Phone Number [facility] [place] [address] * Mammo digital bilateral diagnostic with CAD (02/16/2011 1:46 PM EST) Anatomical Region Laterality Modality Breast Bilateral Mammography 02/16/2011 1:46 PM EST Narrative 02/16/2011 5:06 PM EST BILATERAL MAMMOGRAPHY ?? REASON FOR EXAM: Check stability of Right breast asymmetry. ?? TECHNIQUE: Cranio-caudal (CC) and mediolateral oblique (MLO) views of both breasts obtained with direct digital capture. The exam was evaluated by CAD Version 8.3.17. ?? FINDINGS: This is a benign mammogram (ACR Category 2). There has been no change in the fibroglandular pattern of the breasts. Specifically, there has been no change in the appearance of the focal asymmetry in the upper, outer Right breast since 2007. There is no mammographic evidence of cancer. ? The breasts are of scattered density. ? CONCLUSION ?? BENIGN mammogram (ACR Category 2). Routine screening mammography is recommended with the frequency dependent on the patient's age and breast cancer risk factors. ?? A letter has been sent to this patient by the [facility]. Procedure Note Latoya Garcia MD - 02/16/2011 BILATERAL MAMMOGRAPHY REASON FOR EXAM: Check stability of Right breast asymmetry. TECHNIQUE: Cranio-caudal (CC) and mediolateral oblique (MLO) views of both breasts obtained with direct digital capture. The exam was evaluated byFonduD Version 8.3.17. FINDINGS: This is a benign mammogram (ACR Category 2). There has been nochange in the fibroglandular pattern of the breasts. Specifically, there has beenno change in the appearance of the focal asymmetry in the upper, outer Right breast since 2007. There is no mammographic evidence of cancer. The breasts are of scattered density. CONCLUSION BENIGN mammogram (ACR Category 2). Routine screening mammography isrecommended with the frequency dependent on the patient's age and breast cancer risk factors. A letter has been sent to this patient by [facility]. Dorothy Hammond MD IMG MAMMO ORDERABLES from Last 3 Months or Most Recently Relevant to Health Maintenance Advance Directives Documents on File Type Date Recorded Patient Bridge Welder Expl anation Personal Bridge Welder 06/14/2023 1:51 PM Loren José Antonio - Daughter Advance Directives and Living Will 09/01/2021 8:37 AM [place] 08/31/2021 * Attempt Cardiopulmonary Resuscitation - Inpatient (Latest Code Status on File) Date Activated Date Inactivated Comments 07/19/2023 9:25 AM 07/19/2023 1:49 PM Question Answer Comments Code Status decision made by: Patient * Attempt Cardiopulmonary Resuscitation - Inpatient Date Activated Date Inactivated Comments 01/18/2023 10:12 AM 01/19/2023 4:16 PM Question Answer Comments Code Status decision made by: Patient * Attempt Cardiopulmonary Resuscitation - Inpatient Date Activated Date Inactivated Comments 08/29/2021 11:47 PM 09/01/2021 2:46 PM Question Answer Comments Code Status decision made by: Patient * Full Code Date Activated Date Inactivated Comments 09/27/2018 10:59 AM 09/28/2018 4:39 AM Question Answer Comments Does patient have capacity to make decision: Yes * Full Code Date Activated Date Inactivated Comments 01/14/2015 8:05 AM 01/14/2015 5:05 PM Question Answer Comments Does patient have capacity to make decision: Yes Care Teams Diamond Polisher Relationship Specialty Start Date End Date Haylee Baptiste MD [address] [place] [address] PCP - General 01/21/10
--- OUTSIDE RECORDS SUMMARY | 2023-12-15 12:34 | XMS_ITS | Encounter Summary ---
Author Organization [facility] Address [address] [place] [address] Care Team Providers Care Alteration Tailor Name Role Phone Haylee Baptiste MD Primary Care Provider [phone] Encounter Details Date Type Department Care Team (Late st Contact Info) Description 07/19/2019 Lab Requisition [facility] Pathology & Laboratory Medicine - [address] [address] Outr Resulting Lab, Provider Social History Tobacco [...] Procedure Name Priority Date/Time Associated Diagnosis Comments ZZCOVID-19 TEST [facility] PCR Today 07/18/2019 17:00 EDT COVID-19 TESTING Routine 07/18/2019 17:0 0 EDT documented in this encounter Results * COVID-19 TEST [facility] PCR (07/18/2019 17:00 EDT) Swab ENTIRE NASOPHARYNX / Unknown 07/18/2019 17:00 EDT 07/19/2019 19:21 EDT Provider Outr Resulting Lab MICROBIOLOGY - GENERAL ORDERABLES [facility] [address] [place] [address] * COVID-19 TESTING (07/18/2019 17:00 EDT) COVID-19 rt-PCR Result Negative Negative 07/20/2019 2:34 EDT [facility] Comment: This test has not been FDA cleared or approved. This test has been authorized by FDA under an EUA for use by authorized laboratories. This test has been authorized only for detection of nucleic acid from 2019-nCoV, not for any other viruses or pathogens. This test is only authorized for the duration of the declaration that circumstances exist justifying the authorization of emergency use of in vitro diagnostic tests for detection and/or diagnosis of 2019-nCoV under section 564(b)(1) of Act, 21 U.S.C ?? 360bbb-3(b) (1), unless the authorization is terminated or revoked sooner. Negative results do not preclude 2019-nCoV infection and should not be used as the sole basis for treatment or other patient management decisions. Negative results must be combined with clinical observations, patient history, and epidemiological information. Performed on the ClickMedixher Fusion instrument Performing Lab [place] [facility] 07/20/2019 2:34 EDT [facility] Swab ENTIRE NASOPHARYNX / Unknown 07/18/2019 17:00 EDT 07/19/2019 19:21 EDT Provider Outr Resulting Lab MICROBIOLOGY - GENERAL ORDERABLES [facility] [address] [place] [address] documented in this encounter Visit Diagnoses Not on filedocumented in this encounter Care Teams Alteration Tailor Relationship Specialty Start Date End Date Haylee Baptiste MD [address] [place] [address] PCP - General 10/23/15 documented as of this encounter
--- OUTSIDE RECORDS SUMMARY | 2023-12-15 12:34 | XMS_ITS | Encounter Summary ---
Author Organization [facility] Address [address] [place] [address] Care Team Providers Care Room Attendant Name Role Phone Unavailable Primary Care Provider Unavailabl e Encounter Details Date Type Department Care Team (Late st Contact Info) Description 05/29/2008 Orders Only [facility] Laboratory Services - [facility] ([facility]) [address] [place], [place] [id number] Kika Patel MD [address] [place] [address] [address] [place] [address] Social History Tobacco Use Types Packs/Day Years Used Date Smoking Tobacco: Never Assessed Sex and Gender Information Value Date Recorded Sex Assigned at Not on file Gender Identity Not on file Sexual Orientation Not on file documented as of this encounter Plan of Treatment Not on file documented as of this encounter Procedures Procedure Name Priority Date/Time Associated Diagnosis Comments HPV DETECTION, HIGH RISK TYPES Routine 05/29/2008 10:48 EDT CYTOPATHOLOGY Routine 05/29/2008 0:00 EDT documented in this encounter Results * HUMAN PAPILLOMA VIRUS DNA TEST (05/29/2008 10:48 EDT) Specimen Description Cervix, ThinPrep vial [facility] Result Negative for HPV types 16, 18, 31, 33, 35, 39, 45, 51, 52, 56, 58, 59, and 68. [facility] Report Status Final 06/10/2008 [facility] 05/29/2008 10:4 8 EDT 06/04/2008 10:48 EDT Kika Patel MD MICROBIOLOGY - GENE [facility] ORDERABLES Performing Organization Address City/State/[facility] Co de Phone Number [facility] [address] [place] [address] * CYTOPATHOLOGY (05/29/2008 0:00 EDT) Pathology Report: CYTOPATHOLOGY REPORT ? Reports generated via electronic interface contain original data; ? however they are lacking the format of the original report. ? Caution should be taken when reading/interpreti ng unformatted reports. ? Name: ? GABRIEL NIXON ? Accession #: ? [id number] ? : ? 1955 (Age: 53) ??F ?Collect Date: ? 05/29/2008 ? Location: ? [facility] ? Receive Date: ? 05/30/2008 ? Provider: ?KIKA M DOBBERTIN MD ? Copy to: ? Specimen/Source: ?Pap Test, Endocervix, ThinPrep Imaging System with ? manual evaluation ? Last Menstrual Period: ? Menstrual/Pregnanc y Status: ? Post Menopausal ? Other: ? HPVDX - HPV testing requested regardless of diagnosis on current ThinPrep Pap ?? test. ? SPECIMEN ADEQUACY ? Satisfactory for Evaluation ? - assessment of transformation zone component not applicable ( e.g. atrophy, ? vaginal sample, hysterectomy) ? GENERAL CATEGORIZATION ? Negative for Intraepithelial Lesion or Malignancy ? Document reviewed and electronically signed by: ? Salena [place], [place](ASCP) ? Report Date: ??06/03/2008 14:04 ? End of Report ? [facility] 05/29/2008 05/30/2008 Kika Patel MD PATHOLOGY ORDERABLE S Performing Organization Address City/State/[facility] Co de Phone Number [facility] [address] [place] [address] documented in this encounter Visit Diagnoses Not on filedocumented in this encounter
--- OUTSIDE RECORDS SUMMARY | 2023-12-15 12:34 | XMS_ITS | Encounter Summary ---
Author Organization [facility] Address [address] [place] [address] Care Team Providers Care Exhibits Coordinator Name Role Phone Unavailable Primary Care Provider Unavailabl e Encounter Details Date Type Department Care Team (Late st Contact Info) Description 11/01/2007 Before PRISM Converted Visit (Maple) [facility] - Maple conversion [address] [place] [address] Kika Patel MD [address] [place] [address] [address] [place] [address] Social History Tobacco Use Types [...] Date/Time Associated Diagnosis Comments SURGICAL PATHOLOGY Routine 11/01/2007 0:00 EDT documented in this encounter Results * SURGICAL PATHOLOGY (11/01/2007 0:00 EDT) Pathology Report: SURGICAL PATHOLOGY REPORT ? Reports generated via electronic interface contain original data; ? however they are lacking the format of the original report. ? Caution should be taken when reading/interpreti ng unformatted reports. ? Name: ? TIFFANI, GABRIEL D ? Accession #: ? [id number] ? : ? 1955 (Age: 52) ??F ? Collect Date: ? 11/01/2007 ? Location: ? [facility] ? Receive Date: ? 11/05/2007 ? Provider: KIKA M DOBBLATOYAIN MD ? Copy to: ? Final Pathologic Diagnosis: ? Skin of shoulder, left, punch biopsy: ? - Dermal scar. ??See comment. ? Comment: ? The biopsy is predominated by a dermal scar with reactive vascular ? proliferation. ??No cyst or neoplastic process are evident. ??(Dr. Oneill)/ronald ? Microscopic Description: ? Sections consist of a punch biopsy of skin to the deep reticular dermis. ?? The epidermis is slightly acanthotic with a low papillomatous pattern. ??Within ?? the reticular dermis, there is fibrosis with predominantly longitudinally ? oriented collagen bundles and fibroblasts. ??There is a reactive vascular ? pattern. ??(Dr. Oneill)/lgk ? Document reviewed and electronically signed by: ? Corine Oneill, MD ? Report ??Date: 11/06/2007 16:38 ? By the signature above, the attending physician certifies that he/she has ? personally conducted a gross and/or microscopic examination of the described ? specimens and rendered or confirmed the above diagnosis. ? Specimen(s) Received: ? Lt shoulder ? Clinical History: ? 8 mm x 14 mm brown, red papule w/center pinpoint white area; itches; ? infected sebaceous cyst w/reactive changes vs concerning mole ? Gross Description: ? Received in formalin labelled Haw[place]Weeks and Lt shoulder is a punch ? biopsy of skin which measures 0.3 cm in diameter and 0.2 cm in depth. ??The ? cutaneous surface is hinds-white and mottled. ??Submitted intact in one cassette. ?? (Dr. Rob)/mms ? End of Report ? [facility] 11/01/2007 11/05/2007 15: 27 EDT Kika Patel MD PATHOLOGY ORDERABLE S [facility] [address] [place] [address] documented in this encounter Visit Diagnoses Not on filedocumented in this encounter
--- OUTSIDE RECORDS SUMMARY | 2023-12-15 12:34 | XMS_ITS | Encounter Summary ---
Author Organization [facility] Address [facility] [place] [address] Care Team Providers Care Powered Bridge Specialist Name Role Phone Haylee Baptiste MD Primary Care Provider [phone] Encounter Details Date Type Department Care Team (Latest Contact Info) Description 11/06/2023 Travel Social History Tobacco Use Types Packs/Day [...] from your doctor or pharmacy? Never 08/01/2023 [facility] Utilities Answer Date Recorded In the [...] any time in the past [address] [facility], were you homeless or living in a correction (including now)? No 08/01/2023 IPV Inpatient Questions [...] TH Visit (TeleHealth) Hematology [place] [address] Kati Burnette MD [facility] [place] [address] 01/24/2024 9:30 AM EST Appointment XRay at [address] [place] [address] Jimmy Swann MD [facility] [place] [address] 01/24/2024 11:00 AM EST Office Visit [facility] [place] [address] Regulo Wang PA [facility] [place] [address] 01/24/2024 2:45 PM EST Appointment [place] [address] 01/24/2024 3:45 PM EST Office [place] [address] Caitlyn Hirsch MD [facility] [place] [address] 03/20/2024 9:00 AM EST Office Visit Hematology [place] [address] Ericka Forrest [facility] DR HEMATOLOGY [place] [address] 07/29/2024 2:00 PM EDT Office Visit Radiation Oncology at [address] [phone] Kasie Marte MD [facility] [place] [address] documented as of this encounter Visit Diagnoses Not on filedocumented in this encounter Care Teams Powered Bridge Specialist Relationship Specialty Start Date End Date Haylee Baptiste MD [address] [place] [address] PCP - General 01/21/10 documented as of this encounter
--- OUTSIDE RECORDS SUMMARY | 2023-12-15 12:34 | XMS_ITS | Continuity of Care Document ---
Author Organization [facility] Address [address] [place] [address] Care Team Providers Care Direct Marketing Manager Name Role Phone Haylee Baptiste Primary Care Physician [phone] [facility] Date(s[facility] 04/26/23 - 04/26/[address] [address] Discharge Disposition: Home or Self Care Attending Physician: Tom Anna DO Admitting Physician: Tom Anna DO Referring Physician: Tom Anna DO Allergies, Adverse Reactions, Alerts Substance Reaction Severity [...] Record ed Results Laboratory List Name Date Hemoglobin A1c 04/26/23 Most recent to oldest [Reference Range]: 1 Hemoglobin A1c [4.0-5.6 %] 8.7 % 1 *HI* (04/26/23 9:40 AM) 1Interpretive Data: New test method effective 03-07-23. Establishment of new HA1c baseline is recommended. The following A1c interpretive data reflect the 2017 [place] [employer] Association (ADA) guidelinesand will be reported with each A1c result: Normal: <5.7% Prediabetes: 5.7 - 6.4% Diagnostic for diabetes (if confirmed): ???6.5% Social History Social History Type Response Sex Female Patient Care team information Care Team Personnel Name: Haylee Baptiste MD Position: No Access Member Role: Informed Provider Address: Address: [address] [place] [facility] [place] [address]- Care Team Related Persons Name: BAYRON MCELROY
--- OUTSIDE RECORDS SUMMARY | 2023-12-15 12:34 | XMS_ITS | Encounter Summary ---
Author Organization [facility] Address [address] [place] [address] Care Team Providers Care Powerhouse Mechanic Helper Name Role Phone Unavailable Primary Care Provider Unavailabl e Encounter Details Date Type Department Care Team (Late st Contact Info) Description 07/06/2010 Results Only [facility] Laboratory Services - [facility] ([facility]) [address] [place], [place] [address] Haylee Baptiste MD [address] [place], [place] [address] Social History Tobacco Use Types Packs/Day Years Used Date Smoking Tobacco: Never Assessed Sex and Gender Information Value Date Recorded Sex Assigned at Not on file Gender Identity Not on file Sexual Orientation Not on file documented as of this encounter Plan of Treatment Not on file documented as of this encounter Procedures Procedure Name Priority Date/Time Associated Diagnosis Comments PAP TEST- RESULT ONLY Routine 07/06/2010 0:00 EDT documented in this encounter Results * PAP TEST- RESULT ONLY (07/06/2010 0:00 EDT) Pathology Report: CYTOPATHOLOGY REPORT ? Reports generated via electronic interface contain original data; ? however they are lacking the format of the original report. ? Caution should be taken when reading/interpreti ng unformatted reports. ? Name: ? GABRIEL NIXON ? Accession #: ? [id number] ? : ? 1955 (Age: 55) ??F ?Collect Date: ? 07/06/2010 ? Location: ? [facility] ? Receive Date: ? 07/08/2010 ? Provider: HAYLEE BERRIAN MD ? Copy to: ? Final Report ? SPECIMEN ADEQUACY ? Satisfactory for Evaluation ? - transformation zone component present ? GENERAL CATEGORIZATION ? Negative for Intraepithelial Lesion or Malignancy ? Last Menstural Period: 01/28/02 ? Previous Gynecologic Pathology: Yes: 1 abnormal pap 10 + yrs ago, normal paps ?? since ? Treatment History: Colposcopy: 10 + yrs ago ? Specimen/Source: ??Pap Test, Cervix/Endocervix, ThinPrep Imaging System with ? manual evaluation ? Document reviewed and electronically signed by: ? Eugenia De La Garza, SCT(ASCP) ? Report ??Date: 07/15/2010 09:28 ? HPV with Pap Test ? Date Ordered: ? 07/15/2010 ? Status: ?? Signed Out ?Date Complete: ? 07/19/2010 ? By: ??System Interface ? Date Reported: ? 07/19/2010 ? Interpretation ? RESULT: Negative for HPV types 16, 18, 31, 33, 35, 39, 45, 51, 52, ? 56, 58, 59, and 68. ? Comments ? Document reviewed and electronically signed by: ? System Interface ? Report date: 07/19/2010 ? By the signature above, the attending physician certifies that he/she has ? personally conducted a gross and/or microscopic examination of the described ? specimens and rendered or confirmed the above diagnosis. ? End of Report ? [facility] 07/06/2010 07/08/2010 Haylee Baptiste MD PATHOLOGY ORDERABLES [facility] [address] [place] [address] documented in this encounter Visit Diagnoses Not on filedocumented in this encounter
--- OUTSIDE RECORDS SUMMARY | 2023-12-15 12:34 | XMS_ITS | Encounter Summary ---
Author Organization [facility] Address [address] [place] [address] Care Team Providers Care Provider Enrollment Specialist Name Role Phone Unavailable Primary Care Provider Unavailabl e Encounter Details Date Type Department Care Team (Late st Contact Info) Description 09/24/2013 Results Only [facility] Laboratory Services - [facility] ([facility]) [address] [place], [place] [address] Haylee Zafar MD [address] [place], [place] [address] Social History Tobacco Use Types Packs/Day Years [...] Diagnosis Comments PAP TEST- RESULT ONLY Routine 09/24/2013 0:00 EDT documented in this encounter Results * PAP TEST- RESULT ONLY (09/24/2013 0:00 EDT) Pathology Report: CYTOPATHOLOGY REPORT Reports generated via electronic interface contain original data; however they are lacking the format of the original report. Caution should be taken when reading/interpreti ng unformatted reports. Name: ? GABRIEL NIXON ? Accession #: ? [id number] : ? 1955 (Age: 58) ??F ?Collect Date: ? 09/24/2013 Location: ? [facility] ? Receive Date: ? 09/25/2013 Provider: ?HAYLEE ZAFAR MD Copy to: ? Specimen/Source: ?Pap Test, Cervix/Endocervix, ThinPrep Imaging System with manual evaluation Last Menstrual Period: ? 12 yrs Previous Gynecologic Pathology: ? Yes: Abn Paps - no tx ? SPECIMEN ADEQUACY ? Satisfactory for Evaluation - assessment of transformation zone component not applicable ( e.g. atrophy, vaginal sample, hysterectomy) GENERAL CATEGORIZATION ? Negative for Intraepithelial Lesion or Malignancy ? Document reviewed and electronically signed by: ? Amber Holm, CT(ASCP)(IAC) ? Report Date: ??10/01/2013 11:51 End of Report [facility] 09/24/2013 09/25/2013 Haylee Zafar MD PATHOLOGY ORDERABLES [facility] [address] [place] [address] documented in this encounter Visit Diagnoses Not on filedocumented in this encounter
--- OUTSIDE RECORDS SUMMARY | 2023-12-15 12:34 | XMS_ITS | Encounter Summary ---
Author Organization [facility] Address [address] [place] [address] Care Team Providers Care Full Stack Engineer Name Role Phone Unavailable Primary Care Provider Unavailabl e Encounter Details Date Type Department Care Team (Late st Contact Info) Description 03/26/2007 Results Only [facility] - Maple conversion [address] [place] [address] Kika Patel MD [address] [place] [phone] Social History Tobacco Use Types Packs/Day Years Used Date Smoking Tobacco: Never Assessed Sex and Gender Information Value Date Recorded Sex Assigned at Not on file Gender Identity Not on file Sexual Orientation Not on file documented as of this encounter Plan of Treatment Not on file documented as of this encounter Procedures Procedure Name Priority Date/Time Associated Diagnosis Comments CYTOPATHOLOGY Routine 03/26/2007 0:00 EST documented in this encounter Results * CYTOPATHOLOGY (03/26/2007 0:00 EST) Pathology Report: CYTOPATHOLOGY REPORT Reports generated via electronic interface contain original data; however they are lacking the format of the original report. Caution should be taken when reading/interpreti ng unformatted reports. Name: ? GABRIEL NIXON ? Accession #: ? [id number] : ? 1955 (Age: 52) ??F ?Collect Date: ? 03/26/2007 Location: ? [facility] ? Receive Date: ? 03/27/2007 Provider: ?KIKA PATEL MD Copy to: ? Specimen/Source: ?ThinPrep Pap Test, Endocervix, processed on Workface ThinPrep Imaging System, with manual evaluation Last Menstrual Period: ? VACCINE CUSTOMER REPRESENTATIVE Menstrual/Pregnanc y Status: ? Post Menopausal Treatment History: ? Colposcopy: Years ago Other: ? HPVA - HPV testing requested if ASC-US on the current ThinPrep Pap test. ? SPECIMEN ADEQUACY ? Satisfactory for Evaluation - transformation zone component present GENERAL CATEGORIZATION ? Negative for Intraepithelial Lesion or Malignancy ? Document reviewed and electronically signed by: ? STAR Richmond(ASCP) ? Report Date: ??03/30/2007 14:01 End of Report [facility] 03/26/2007 03/27/2007 Kika Patel MD PATHOLOGY ORDERABLE S [facility] [address] [place] [address] documented in this encounter Visit Diagnoses Not on filedocumented in this encounter
--- OUTSIDE RECORDS SUMMARY | 2023-12-15 12:34 | XMS_ITS | Encounter Summary ---
Author Organization [facility] Address [address] [place] [address] Care Team Providers Care Manufacturing Engineering Director Name Role Phone Unknown, Provider Primary Care Provider Unava ilable Encounter Details Date Type Department Care Team (Late st Contact Info) Description 10/20/2015 Results Only [facility] [phone] Isidro Ramírez, DO [address] [facility] [address] [place] [address] [place] [address] Social History Tobacco Use Types Packs/Day Years Used Date Smoking Tobacco: Never Assessed Sex and Gender Information Value Date Recorded Sex Assigned at Not on file Gender Identity Not on file Sexual Orientation Not on file documented as of this encounter Plan of Treatment Not on file documented as of this encounter Procedures Procedure Name Priority Date/Time Associated Diagnosis Comments SURGICAL PATHOLOGY Routine 10/20/2015 20 :28 EDT documented in this encounter Results * SURGICAL PATHOLOGY (10/20/2015 20:28 EDT) Pathology Report: SURGICAL PATHOLOGY REPORT Reports generated via electronic interface contain original data; however they are lacking the format of the original report. Caution should be taken when reading/interpreti ng unformatted reports. Name: ? TIFFANIZAMZAMLY Rajendra ? Accession #: ? [id number] ? : ? 1955 (Age: 60) ??F ? Collect Date: ? 10/20/2015 ? Location: ? [facility] ? Receive Date: ? 10/21/2015 ? Provider: ISIDRO RAMÍREZ DO Copy to: AWILDA ZAFAR MD ? Final Pathologic Diagnosis: A. STOMACH, ANTRUM, BIOPSY: - ??Antral mucosa with erosive reactive gastropathy. - ??No evidence of Helicobacter pylori on H&E. B. ESOPHAGUS, DISTAL, BIOPSY: - ??Cardia-oxyntic mucosa with no significant abnormality. - ??Adjoining squamous mucosa with features of reflux esophagitis. C. ESOPHAGUS, PROXIMAL, BIOPSY: - ??Squamous mucosa with features of mild lymphocytic esophagitis. See comment. ?? D. COLON, ASCENDING, POLYP, BIOPSY: - ??Fragments of tubular adenoma. E. COLON, SIGMOID, POLYP, BIOPSY: - ??Fragment of tubular adenoma. Comment: Part C: there are foci of intraepithelial lymphocytosis, more accentuated at the epithelial papillae. There is associated reactive spongiosis. Features are in keeping with lymphocytic esophagitis. This is a non-specific diagnosis but reported in association with medication/ drug effect, severe reflux or autoimmune disease amongst others. ?? Document reviewed and electronically signed by: KIRAN DUGAN MD Report ??Date: 10/23/2015 13:07 By the signature above, the attending physician certifies that he/she has personally conducted a gross and/or microscopic examination of the described specimens and rendered or confirmed the above diagnosis. Specimen(s) Received: A. ??Antrum (#1) B. ??Distal esophagus (#2) C. ??Proximal esophagus bx (#3) D. ??Ascending colon polyp (#4) E. ??Sigmoid polyp (#5) Clinical History: Hx Sagastume's esophagus Gross Description: A. ?Received in formalin labelled with proper patient identification (initials H, B) and antrum are two pink-hinds tissues (0.3 x 0.2 x 0.2 cm and 0.3 x 0.3 x 0.2 cm). Entirely submitted in block A1. B. ?Received in formalin labelled with proper patient identification (initials H, B) and distal esophagus are five pink-hinds tissues (0.1 x 0.1 x 0.1 cm to 0.5 x 0.1 x 0.1 cm). Entirely submitted in blocks B1 and B2. C. ?Received in formalin labelled with proper patient identification (initials H, B) and proximal esophagus are two pink-hinds tissues (0.3 x 0.2 x 0.1 cm and 0.4 x 0.2 x 0.1 cm). Entirely submitted in block C1. D. ?Received in formalin labelled with proper patient identification (initials H, B) and ascending colon are three pink-hinds tissues (0.3 x 0.2 x 0.2 cm to 0.4 x 0.3 x 0.2 cm). Entirely submitted in block D1. E. ?Received in formalin labelled with proper patient identification (initials H, B) and sigmoid polyp is a single red-brown tissue fragment (0.4 x 0.3 x 0.2 cm). Submitted intact in block E1. JUAN Garcia (ASCP) 10/22/2015 9:03 AM End of Report [facility] 10/20/2015 20:2 8 EDT 10/21/2015 20:28 EDT Isidro Ramírez DO PATHOLOGY ORDER MIRTA [facility] [address] [place] [address] documented in this encounter Visit Diagnoses Not on filedocumented in this encounter Care Teams Manufacturing Engineering Director Relationship Specialty Start Date End Date Unknown, Provider, PCP - General 12/29/14 10/22/15 documented as of this encounter
--- OUTSIDE RECORDS SUMMARY | 2023-12-15 12:34 | XMS_ITS | Encounter Summary ---
Author Organization [facility] Address [address] [place] [address] Care Team Providers Care Small Engine Technician Name Role Phone Unknown, Provider Primary Care Provider Unava ilable Encounter Details Date Type Department Care Team (Latest Contact Info) Description 10/20/2015 9:50 EDT - 10/20/2015 23:59 EDT Hospital Encounter [address] [address] Unknown, ProviderMD Discharge Disposition: Home or Self Care Social History Tobacco Use Types Packs/Day Years Used Date Smoking Tobacco: Never Assessed Sex and Gender Information Value Date Recorded Sex Assigned at Not on file Gender Identity Not on file Sexual Orientation Not on file documented as of this encounter Discharge Disposition Disposition Code Departure Means Destination Home or Self [facility] documented in this encounter Plan of Treatment Not on file documented as of this encounter Visit Diagnoses Not on filedocumented in this encounter Care Teams Small Engine Technician Relationship Specialty Start Date End Date Unknown, ProviderMD PCP - General 12/29/14 10/22/15 documented as of this encounter
--- OUTSIDE RECORDS SUMMARY | 2023-12-15 12:34 | XMS_ITS | Continuity of Care Document ---
Author Organization [facility] Address [address] [place] [address] Care Team Providers Care Staff Home Therapy Rn Name Role Phone Haylee Baptiste Primary Care Physician Encounter REPLACED BY [facility] Date(s): 05/30/23 - 05/30/[address] [address] Discharge Disposition: Home or Self Care Attending Physician: Haylee Baptiste MD Admitting Physician: Haylee Baptiste MD Referring Physician: Haylee Baptiste MD Allergies, Adverse Reactions, Alerts Substance Reaction [...] Recorded pneumococcal 23-polyvalent vaccine 02/06/06 Record ed Social History Social History Type Response Sex Female Patient Care team information Care Team Personnel Name: Haylee Baptiste MD Position: No Access Member Role: Informed Provider Address: Address: [facility] [address] [place] [address]- Care Team Related Persons Name: BAYRON MCELROY
--- OUTSIDE RECORDS SUMMARY | 2023-12-15 12:34 | XMS_ITS | Encounter Summary ---
Author Organization [facility] [address] Care Team Providers Care Piper Helper Name Role Phone Haylee Baptiste MD Primary Care Provider [phone] Encounter Details Date Type Department Care Team (Late st Contact Info) Description 12/11/2023 Telephone [facility] [place] [address] Katya Vargas, POLI Social History [...] from your doctor or pharmacy? Never 08/01/2023 [facility] Utilities Answer Date Recorded In the past 12 months has th e [employer], gas, oil, or water [employer] threatened to shut off services in your [...] any time in the past 12 m [facility], were you homeless or living in a halfway (including now)? No 08/01/2023 IPV Inpatient Questions [...] encounter Miscellaneous Notes * Telephone Encounter - Katya Vargas LPN - 12/11/2023 3:07 PM EST Powder Coat Painter called to advise XR order from JUNA Garcia has , she is scheduled for f/u with AB on 01-19-24, pended XR to AB, he can change if not right views. documented in this encounter Plan of Treatment Upcoming Encounters Date Type Department Care Team (Late st Contact Info) Description 01/09/2024 2:20 PM EST TH Visit (TeleHealth) Hematology [place] [phone] Kati Burnette MD [facility] DR HEMATOLOGY [place] [address] 01/24/2024 9:30 AM EST Appointment XRay at [address] [place] [phone] Jimmy Swann MD [facility] [place] [address] 01/24/2024 11:00 AM EST Office Visit Pain and Spine Center at [address] Regulo Wang PA [facility] [place] [address] 01/24/2024 2:45 PM EST Appointment Mammography at [place] [address] 01/24/2024 3:45 PM EST Office Visit General Surgery at [address] Caitlyn Hirsch MD [facility] [place] [address] 03/20/2024 9:00 AM EST Office Visit Hematology and Oncology at [place] [phone] Ericka Forrest, [facility] HEMATOLOGY [place] [address] 07/29/2024 2:00 PM EDT Office Visit Radiation Oncology at [address] [phone] Kasie Marte MD [facility] [place] [address] documented as of this encounter Visit Diagnoses Not on filedocumented in this encounter Care Teams Piper Helper Relationship Specialty Start Date End Date Haylee Baptiste MD [address] [place] [address] PCP - General 01/21/10 documented as of this encounter
--- OUTSIDE RECORDS SUMMARY | 2023-12-15 12:34 | XMS_ITS | Encounter Summary ---
Author Organization [facility] Address [address] [place] [address] Care Team Providers Care Street Sprinkler Name Role Phone Haylee Baptiste MD Primary Care Provider [phone] Encounter Details Date Type Department Care Team (Late st Contact Info) Description 06/10/2020 Lab Requisition [facility] Pathology & Laboratory Medicine - [facility] [address] [place] [address] Haylee Baptiste MD [address] [place], [place] [phone] Encounter for other general examination Social History Tobacco Use Types Packs/Day Years Used Date Smoking Tobacco: Never Assessed Sex and Gender Information Value Date Recorded Sex Assigned at Not on file Gender Identity Not on file Sexual Orientation Not on file documented as of this encounter Plan of Treatment Not on file documented as of this encounter Procedures Procedure Name Priority Date/Time Associated Diagnosis Comments PAP TEST Today 06/09/2020 9:30 EDT Encounter for other general examination HPV DNA DETECTION WITH GENOTYPING, PCR Today 06/09/2020 9:30 EDT Encounter for other general examination documented in this encounter Results * (ABNORMAL) HUMAN PAPILLOMAVIRUS (HPV) DETECTION-HIGH RISK TYPES (06/09/2020 9:30 EDT) HPV other High Risk types, PCR Positive( A) Negative 06/16/2020 16:12 T [facility] Comment:E6 OR E7 mRNA from o ne or more types of HPV types 16,18,31,33,35,39,45,51,52,56,58,59,66, and 68 is detected by marking machine tender mediated amplification. High and intermediate risk HPV types are associated with most squamous intraepithelial lesions and cervical cancers. Papanicolaou smear specimen (specimen) CERVIX UTERI STRUCTURE / Unknown 06/09/2020 9:30 EDT 06/12/2020 17:22 EDT Haylee Baptiste MD MICROBIOLOGY - GENER AL ORDERABLES [facility] [address] [place] [address] * PAP TEST (06/09/2020 9:30 EDT) Specimens A. Cervix and/or Endocervix VAGINAL / CERVIX, ThinPrep Imaging System with Manual Evaluation 06/16/2020 16:12 [facility] Specimen Adequacy Satisfactory for Evaluation - assessment of transformation zone component not applicable ( e.g. atrophy, vaginal sample, hysterectomy) 06/16/2020 16:12 [facility] General Categorization Negative for intraepithelial lesion or malignancy 06/16/2020 16:12 [facility] Attestation . 06/16/2020 16:12 [facility] at 1612 Clinical History See below 06/17/19 16:12 [facility] HPV The result for the Human Papillomavirus (HPV) Detection-High Risk Types is Positive . E6 OR E7 mRNA from one or more types of HPV types 16,18,31,33,35,39 ,45,51,52,56,58,5 9,66, and 68 is detected by marking machine tender mediated amplification. High and intermediate risk HPV types are associated with most squamous intraepithelial lesions and cervical cancers. Testing was performed on specimen [id number] and was resulted on 06/16/2020 1608 EDT by ANDREA, LAB INSTRUMENT RESULTS IN 06/16/2020 16:12 EDT [facility] Performing Lab [facility] 06/16/2020 16:12 EDT [facility] Scanned Images 06/16/2020 16:12 EDT [facility] Papanicolaou smear specimen (specimen) CERVIX UTERI STRUCTURE / Unknown 06/09/2020 9:30 EDT 06/10/2020 12:30 EDT Haylee Baptiste MD PATHOLOGY ORDERABLES [facility] [address] [place] [address] documented in this encounter Visit Diagnoses Diagnosis Encounter for other general examination documented in this encounter Care Teams Street Sprinkler Relationship Specialty Start Date End Date Haylee Baptiste MD [address] [place] [address] PCP - General 10/23/15 documented as of this encounter
--- OUTSIDE RECORDS SUMMARY | 2023-12-15 12:34 | XMS_ITS | Continuity of Care Document ---
Author Organization [facility] Address [address] [place] [address] Care Team Providers Care Painter Structural Steel Name Role Phone Haylee Baptiste Primary Care Physician [phone] [facility] Date(s): 05/26/23 - 05/26/[address] [phone] Discharge Disposition: Home or Self Care Attending [...] Role: Informed Provider Address: Address: [facility] [address] [place] [address]- Care Team Related Persons Name: BAYRON MCELROY
--- OUTSIDE RECORDS SUMMARY | 2023-12-15 12:34 | XMS_ITS | Referral Summary ---
Author Organization [facility] Address [address] [place] [address] Care Team Providers Care Network Operations Manager Name Role Phone Haylee Baptiste MD Primary Care Provider [phone] Social History Tobacco Use Types Packs/Day Years Used Date Smoking Tobacco: Never Assessed Sex and Gender Information Value Date Recorded Sex Assigned at Not on file Gender Identity Not on file Sexual Orientation Not on file Plan of Treatment Not on file Care Teams Network Operations Manager Relationship Specialty Start Date End Date Haylee Baptiste MD [address] [place] [address] PCP - General 10/23/15
--- OUTSIDE RECORDS SUMMARY | 2023-12-15 12:34 | XMS_ITS | Encounter Summary ---
Author Organization [facility] Address [address] [place] [address] Care Team Providers Care Broker Assistant Name Role Phone Haylee Baptiste MD Primary Care Provider [phone] Encounter Details Date Type Department Care Team (Late st Contact Info) Description 05/05/2022 Lab Requisition [facility] Pathology & Laboratory Medicine - [facility] [address] [place] [address] Wisam Martínez MD [address] [place] [address], [address] [place] [address] Gastro-esophageal reflux disease without esophagitis Social History Tobacco Use Types Packs/Day Years Used Date Smoking Tobacco: Never Assessed Sex and Gender Information Value Date Recorded Sex Assigned at Not on file Gender Identity Not on file Sexual Orientation Not on file documented as of this encounter Plan of Treatment Not on file documented as of this encounter Procedures Procedure Name Priority Date/Time Associated Diagnosis Comments SURGICAL PATHOLOGY Today 05/05/2022 7: 51 EDT Gastro-esophageal reflux disease without esophagitis documented in this encounter Results * SURGICAL PATHOLOGY (05/05/2022 7:51 EDT) Note to Patient The following pathology results have been interpreted by your pathologist and may be available to you before your health provider has had the opportunity to review them. Please allow time for your provider to receive these results and explore management options, if applicable. 05/06/2022 16:38 [facility] Final Diagnosis A. STOMACH, ANTRUM, BIOPSY: - Fundic mucosa with reactive (chemical) gastropathy. - Negative for Helicobacter pylori on H&E stained sections. B. STOMACH, BODY, BIOPSY: - Fundic mucosa with moderate focal parietal cell hyperplasia. - Negative for Helicobacter pylori on H&E stained sections. C. GASTROESOPHAGEAL JUNCTION, BIOPSY: - Squamocolumnar mucosa with mild reactive changes. - Negative for intestinal metaplasia and dysplasia. D. ESOPHAGUS, BIOPSY: - Squamous mucosa with mild reactive changes. 05/06/2022 16:38 [facility] Attestation By the signature below, the attending physician certifies that they have 1) personally conducted a gross and/or microscopic examination of the described specimen(s), and/or personally interpreted the results of laboratory testing of the described specimen(s), and 2) personally rendered or confirmed the above diagnosis. 05/06/2022 16:38 [facility] at 1638 Clinical History GERD 05/06/2022 16:38 [facility] Gross Description A. Received in formalin labelled with proper patient identification (initials H, B) and antrum biopsy is a single hinds-brown tissue (0.4 x 0.3 x 0.1 cm). Submitted intact in A1. B. Received in formalin labelled with proper patient identification (initials H, B) and gastric body bx are 3 hinds irregular tissues (0.1 x 0.1 x 0.1 cm to 0.3 x 0.1 x 0.1 cm). Submitted entirely in B1. C. Received in formalin labelled with proper patient identification (initials H, B) and GE junction bx are 2 white irregular tissues (0.2 x 0.2 x 0.1 cm and 0.4 x 0.2 x 0.1 cm). Submitted entirely in C1. D. Received in formalin labelled with proper patient identification (initials H, B) and esophagus bx are 2 white irregular tissues (0.2 x 0.2 x 0.1 cm and 0.3 x 0.2 x 0.1 cm). Submitted entirely in D1. JUAN ADDISON(ASCP) 05/06/2022 7:46 05/06/2022 16:38 EDT [facility] Performing Lab [facility] 16:38 EDT [facility] Scanned Images 05/06/2022 16:38 EDT [facility] Tissue ENTIRE ESOPHAGUS / Unknown 05/05/2022 7:51 EDT 05/05/2022 18:52 EDT Tissue specimen (specimen) STOMACH STRUCTURE / Unknown 05/05/2022 7:51 EDT 05/05/2022 18:52 EDT Tissue specimen (specimen) ESOPHAGEAL STRUCTURE / Unknown 05/05/2022 7:51 EDT 05/05/2022 18:52 EDT Tissue specimen (specimen) ESOPHAGEAL STRUCTURE / Unknown 05/05/2022 7:51 EDT 05/05/2022 18:52 EDT Wisam Martínez MD PATHOLOGY ORDERABLES [facility] [address] [place] [address] documented in this encounter Visit Diagnoses Diagnosis Gastro-esophageal reflux disease without esophagitis Esophageal reflux documented in this encounter Care Teams Broker Assistant Relationship Specialty Start Date End Date Haylee Baptiste MD [address] [place] [address] PCP - General 10/23/15 documented as of this encounter
--- OUTSIDE RECORDS SUMMARY | 2023-12-15 12:34 | XMS_ITS | Continuity of Care Document ---
Author Organization [facility] Address [address] [place] [address] Care Team Providers Care Embossing Machine Operator Helper Name Role Phone Haylee Baptiste Primary Care Physician [facility] Date[facility] 04/25/23 - 04/25/[address] [address] Discharge Disposition: Home or Self Care Attending [...] Record ed Results Laboratory List Name Date GGT 04/25/23 Hepatic Function Panel 04/25/23 Lipid Panel 04/25/23 Most recent to oldest [Reference Range]: 1 Cholesterol Total [50-200 mg/dL] 174 mg/ dL (04/25/23 4:08 PM) LDL [0-130 mg/dL] 99 mg/dL (04/25/23 4:08 PM) HDL [40-60 mg/dL] 43 mg/dL (04/25/23 4:08 PM) AST [15-37 unit/L] 20 unit/L (04/25/23 4:08 PM) ALT [14-59 unit/L] 40 unit/L (04/25/23 4:08 PM) Triglycerides [0-150 mg/dL] 161 mg/dL *HI* (04/25/23 4:08 PM) Albumin Level [3.4-5.0 g/dL] 3.6 g/dL (04/25/23 4:08 PM) Protein Total [6.4-8.2 g/dL] 7.5 g/dL (04/25/23 4:08 PM) Bilirubin Total [0.2-1.0 mg/dL] 0.4 mg/d L (04/25/23 4:08 PM) Alk Phos [46-146 unit/L] 161 unit/L *HI* (04/25/23 4:08 PM) Bilirubin Direct [0.00-0.20 mg/dL] 0.10 mg/dL (04/25/23 4:08 PM) GGT [5-55 unit/L] 40 unit/L (04/25/23 4:08 PM) Social History Social History Type Response Sex Female Patient Care team information Care Team Personnel Name: Haylee Baptiste MD Position: No Access Member Role: Informed Provider Address: Address: [address] [place] [address]- [place] Care Team Related Persons Name: BAYRON MCELROY
--- OUTSIDE RECORDS SUMMARY | 2023-12-15 12:34 | XMS_ITS | Encounter Summary ---
Author Organization [facility] [place] [address] Care Team Providers Care Bench Assembler Operator Name Role Phone Haylee Baptiste MD Primary Care Provider [phone] Encounter Details Date Type Department Care Team (Late st Contact Info) Description 12/11/2023 Orders Only [facility] [place] [phone] Katya Vargas LPN S/P cervical spinal fusion; Cervical myelopathy Social History Tobacco Use Types Packs/Day Years [...] from your doctor or pharmacy? Never 08/01/2023 [facility] Utilities Answer Date Recorded In the past 12 months has [employer], gas, oil, or water [employer] threatened to shut off services in your [...] were you homeless or living in a intermediate (including now)? No 08/01/2023 IPV Inpatient Questions [...] TH Visit (TeleHealth) Hematology [place] [address] Kati Burnette MD [facility] [place] [address] 01/24/2024 9:30 AM EST Appointment XRay at [address] [place] [phone] Jimmy Swann MD [facility] [place] [address] 01/24/2024 11:00 AM EST Office Visit [facility] [place] [address] Regulo Wang PA [facility] [place] [address] 01/24/2024 2:45 PM EST Appointment [place] [address] 01/24/2024 3:45 PM EST Office Visit [place] [address] Caitlyn Hirsch MD [facility] [place] [address] 03/20/2024 9:00 AM EST Office Visit Hematology [place] [address] Ericka Forrest, [facility] [place] [address] 07/29/2024 2:00 PM EDT Office Visit Radiation Oncology at [address] [phone] Kasie Marte MD [facility] [place] [address] Scheduled Orders Name Type Priority Associated Diagnoses Orde r Schedule XR Cervical Spine 2 or 3 Views Imaging Routine S/P cervical spinal fusion Cervical myelopathy Expected: 12/13/2023 (Approximate), Expires: 06/13/2024 documented as of this encounter Visit Diagnoses Diagnosis S/P cervical spinal fusion Arthrodesis status Cervical myelopathy Cervical spondylosis with myelopathy documented in this encounter Care Teams Bench Assembler Operator Relationship Specialty Start Date End Date Haylee Baptiste MD [address] [place] [address] PCP - General 01/21/10 documented as of this encounter
--- OUTSIDE RECORDS SUMMARY | 2023-12-15 12:34 | XMS_ITS | Encounter Summary ---
Author Organization [facility] Address [facility] [place] [address] Care Team Providers Care Front End Developer Javascript Html Css Name Role Phone Haylee Baptiste MD Primary Care Provider [phone] Encounter Details Date Type Department Care Team (Late st Contact Info) Description 11/06/2023 Notes Only Radiation Oncology at [address] [address] Kasie Marte MD [facility] [place] [address] Social History Tobacco Use Types Packs/Day Years [...] from your doctor or pharmacy? Never 08/01/2023 [facility] Utilities Answer Date Recorded In the past 12 months has [employer] electric, gas, oil, or water company threatened [...] any time in the past 12 m ont, were you homeless or living in a long term (including now)? No 08/01/2023 IPV Inpatient Questions [...] as of this encounter Progress Notes * Kasie Marte MD - 11/06/2023 11:59 PM EDT Nallely Rajendra Selam Velazquez has completed xrt for breast ca, L, IDC w/lobular features, gr 2, ER+AZ+, Her2-, s/p lumpectomy & SNB, pT1c(m) pN0. Oncotype DX 14. Enrolled on BR007 ALEJO trial evaluating xrt omission. Anastrozole to start after xrt completion. . The course of xrt is summarized as follows: Treatment was given from 10/10/23 to 11/06/23. 42.56 Gy in 16 fxs was given to L breast, followed by volume reduction & 10 Gy/4 fxs to lumpectomy bed, boosting lumpectomy bed to 52.56 Gy/20 fxs. 6 MV Xray external beam with deep inspiration breath hold (DIBH) & 3D xrt throughout treatment. The course of xrt was tolerated well, w/the expected side effect of skin reaction w/in irradiated area managed w/remedy cream, 1% hydrocortisone cream & mepilex-lite. Exam near completion of xrt showed mild-moderate erythema L inframammary fold w/mild folliculitis; no desquamation. Rtc 12/05/23. Advised to start anastrozole 11/20/23. documented in this encounter Plan of Treatment Upcoming Encounters Date Type Department Care Team (Late st Contact Info) Description 01/09/2024 2:20 PM EST TH Visit (TeleHealth) [place]ology [place] [phone] Kati Burnette MD [facility] DR HEMATOLOGY [place] [address] 01/24/2024 9:30 AM EST Appointment XRay at [address] [place] [phone] Jimmy Swann MD [facility] [place] [address] 01/24/2024 11:00 AM EST Office Visit Pain [place] [phone] Regulo Wang PA [facility] [place] [address] 01/24/2024 2:45 PM EST [place] [phone] 01/24/2024 3:45 PM EST Office [place] [phone] Caitlyn Hirsch MD [facility] [place] [address] 03/20/2024 9:00 AM EST Office Visit Hematology [place] [address] Ericka Forrest [facility] DR HEMATOLOGY [place] [address] 07/29/2024 2:00 PM EDT Office Visit Radiation Oncology at [address] [phone] Kasie Marte MD [facility] [place] [address] documented as of this encounter Visit Diagnoses Not on filedocumented in this encounter Care Teams Front End Developer Javascript Html Css Relationship Specialty Start Date End Date Haylee Baptiste MD [address] [place] [address] PCP - General 01/21/10 documented as of this encounter
--- OUTSIDE RECORDS SUMMARY | 2023-12-15 12:34 | XMS_ITS | Encounter Summary ---
Author Organization [facility] Address [address] [place] [address] Care Team Providers Care Medical Fee Clerk Name Role Phone Haylee Baptiste MD Primary Care Provider [phone] Encounter Details Date Type Department Care Team (Late st Contact Info) Description 03/08/2021 Lab Requisition [facility] Pathology & Laboratory Medicine - [address] [address] Ruslan Castañeda MD [address] [place] [address] [address] [place], [place] [id number] Encounter for other general examination Social History [...] Date/Time Associated Diagnosis Comments SURGICAL PATHOLOGY Today 03/08/2021 8: 55 EST Encounter for other general examination documented in this encounter Results * SURGICAL PATHOLOGY (03/08/2021 8:55 EST) Note to Patient The following pathology results have been interpreted by your pathologist and may be available to you before your health provider has had the opportunity to review them. Please allow time for your provider to receive these results and explore management options, if applicable. 03/10/2021 8:54 [facility] Final Diagnosis A. COLON, TRANSVERSE, BIOPSY: - Tubular adenoma 03/10/2021 8:54 [facility] Attestation By the signature below, the attending physician certifies that they have 1) personally conducted a gross and/or microscopic examination of the described specimen(s), and/or personally interpreted the results of laboratory testing of the described specimen(s), and 2) personally rendered or confirmed the above diagnosis. 03/10/2021 8:54 [facility] at 0854 Clinical History History of tubular adenoma 03/10/2021 8:54 [facility] Gross Description A. Received in formalin labelled with proper patient identification (initials H, B) and transverse colon polyp are 4 hinds tissues (0.1 x 0.1 x 0.1 cm up to 0.3 x 0.2 x 0.2 cm). The specimen is submitted entirely in A1. JUAN ADDISON(ASCP) 03/08/2021 17:44 03/10/2021 8:54 [facility] Performing Lab [facility] 03/10/2021 8:54 [facility] Scanned Images 03/10/2021 8:54 [facility] Tissue ENTIRE TRANSVERSE COLON / Unknown 03/08/2021 8:55 EST 03/08/2021 17:10 EST Ruslan Castañeda MD PATHOLOGY [facility] [address] [place] [address] documented in this encounter Visit Diagnoses Diagnosis Encounter for other general examination documented in this encounter Care Teams Medical Fee Clerk Relationship Specialty Start Date End Date Haylee Baptiste MD [address] [place] [address] PCP - General 10/23/15 documented as of this encounter
--- OUTSIDE RECORDS SUMMARY | 2023-12-15 12:34 | XMS_ITS | Encounter Summary ---
Author Organization [facility] [address] Care Team Providers Care Car Hiker Name Role Phone Haylee Baptiste MD Primary Care Provider [phone] Encounter Details Date Type Department Care Team (Late st Contact Info) Description 11/06/2023 Notes [place] [phone] Brittaney Caballero Social History Tobacco Use Types Packs/Day Years [...] doctor or pharmacy? Never 08/01/2023 [facility] Utilities Answer Date Recorded In the past 12 months has e [employer], gas, oil, or water [employer] threatened to shut off services in your [...] any time in the past 12 m [facility], were you homeless or living in a group home (including now)? No 08/01/2023 IPV Inpatient Questions [...] as of this encounter Progress Notes * Brittaney Caballero - 11/06/2023 1:47 PM EDTSummary: Financial Counselor [phone] The patient was contacted by the financial counselor today to check on how she was doing.The patient stated she was still doing well and did not require financial assistance. The patient agreed to reach out to me if she has questions, concerns, or needs financial support. No further action is needed. documented in this encounter Plan of Treatment Upcoming Encounters Date Type Department Care Team (Late st Contact Info) Description 01/09/2024 2:20 PM EST TH Visit (TeleHealth) [place] [address] Kati Burnette MD [facility] [address] [place] [address] 01/24/2024 9:30 AM EST Appointment XRay at [address] [place] [phone] Jimmy Swann MD [facility] [place] [place] [address] 01/24/2024 11:00 AM EST Office Visit Pain and Spine Center at [address] Regulo Wang PA [facility] [place] [address] 01/24/2024 2:45 PM EST Appointment Mammography at [place] [phone] 01/24/2024 3:45 PM EST Office Visit General Surgery at [address] Caitlyn Hirsch MD [facility] [place] [address] 03/20/2024 9:00 AM EST Office Visit Hematology and Oncology at [place] [phone] Ericka Forrest, [facility] [place] [place] [address] 07/29/2024 2:00 PM EDT Office Visit Radiation Oncology at [address] [phone] Kasie Marte MD [facility] [place] [address] documented as of this encounter Visit Diagnoses Not on filedocumented in this encounter Care Teams Car Hiker Relationship Specialty Start Date End Date Haylee Baptiste MD [address] [place] [address] PCP - General 01/21/10 documented as of this encounter
--- OUTSIDE RECORDS SUMMARY | 2023-12-15 12:34 | XMS_ITS | Encounter Summary ---
Author Organization [facility] Address [facility]endra [facility] [place] [address] Care Team Providers Care Circus Supervisor Name Role Phone Haylee Baptiste MD Primary Care Provider [phone] Encounter Details Date Type Department Care Team (Late st Contact Info) Description 11/07/2023 Orders Only [place] [address] Caitlyn Hirsch MD [facility] [place] [address] Malignant neoplasm of upper-inner quadrant of left [...] from your doctor or pharmacy? Never 08/01/2023 [facility] Utilities Answer Date Recorded In the past 12 months has e [employer], gas, oil, or water [employer] threatened to shut off services in your [...] any time in the past 12 m [facility], were you homeless or living in a half-way (including now)? No 08/01/2023 IPV Inpatient Questions [...] TH Visit (TeleHealth) Hematology [place] [address] Kati Burnette MD [facility] HEMATOLOGY [place] [address] 01/24/2024 9:30 AM EST Appointment XRay at [address] [place] [phone] Jimmy Swann MD [facility] [place] [place] [address] 01/24/2024 11:00 AM EST Office Visit Pain and Spine Center at [place] [phone] Regulo Wang PA [facility] DR [place] [address] 01/24/2024 2:45 PM EST [place] [address] 01/24/2024 3:45 PM EST Office [place] [address] Caitlyn Hirsch MD [facility] DR GENER[place] [address] 03/20/2024 9:00 AM EST Office Visit Hematology and Oncology at [place] [phone] Ericka Forrest, [facility] DR HEMATOLOGY [place] [address] 07/29/2024 2:00 PM EDT Office Visit Radiation Oncology at [address] [phone] Kasie Marte MD [facility] [place] [address] Scheduled Orders Name Type Priority Associated Diagnoses Orde r Schedule Mammo Diagnostic Cad and Loy Left Imaging Routine Malignant neoplasm of upper-inner quadrant of left breast in female, estrogen receptor positive Expected: 05/07/2024, Expires: 05/07/2025 documented as of this encounter Visit Diagnoses Diagnosis Malignant neoplasm of upper-inner quadrant of left breast in female, estrogen receptor positive documented in this encounter Care Teams Circus Supervisor Relationship Specialty Start Date End Date Haylee Baptiste MD [address] [place] [address] PCP - General 01/21/10 documented as of this encounter
--- OUTSIDE RECORDS SUMMARY | 2023-12-15 12:34 | XMS_ITS | Encounter Summary ---
Author Organization [facility] Address [facility] [place] [address] Care Team Providers Care Cash Analyst Name Role Phone Haylee Baptiste MD Primary Care Provider [phone] Reason for Visit * Reason Comments Follow-up Encounter Details Date Type Department Care Team (Late st Contact Info) Description 12/05/2023 2:00 PM EDT Office Visit Radiation Oncology at [address] [phone] Kasie Marte MD [facility] [place] [address] S/P radiotherapy Social History Tobacco Use Types Packs/Day Years [...] from your doctor or pharmacy? Never 08/01/2023 [facility] Utilities Answer Date Recorded In the past 12 months has [employer] electric, gas, oil, or water [employer] threatened to shut off services in your [...] any time in the past 12 m [facility], were you homeless or living in a [...] on file documented as of this encounter Last Filed Vital Signs Vital Sign Reading [...] oz) 12/05/2023 2:06 P M EDT Height - - Body Mass Index 29.15 10/10/2023 8:45 AM EDT documented in this encounter Patient Instructions * Patient Instructions* Kasie Marte MD - 12/05/2023 2:00 PM EDT Your exam shows that you are healing nicely from radiotherapy. You may use a straight/regular razor on your left underarm. You may expose the irradiated area to sun, but it is recommended that you apply sunscreen with an SPF of @ least #30 on the irradiated area prior to exposing it to sun. You may swim in chlorinated water. You may expose irradiated area to hot tub water. Someone will contact you to schedule followup in July. documented in this encounter Progress Notes * Kasie Marte MD - 12/05/2023 2:00 PM EDT Images from the original note were not included. CC: Scheduled followup s/p xrt completion. HPI: Nallely is a 68 y/o f s/p xrt completion 1 mo ago (11/06/23) for breast ca, L, IDC w/lobular features, gr 2, ER+IA+, Her2-, s/p lumpectomy & SNB, pT1c(m) pN0. Oncotype DX 14. Enrolled on BR007 ALEJO trial evaluating xrt omission. Anastrozole started since xrt completion. S: Skin w/in tx'd area healing well. No pain. Had Covid-19 a few wks ago with sore throat, fever; took paxlovid & has recovered from symptoms. Past Medical History: Diagnosis Date CAD (coronary artery disease) Cervical radiculopathy at C7 CKD (chronic kidney disease) stage 3, GFR 30-59 ml/min Diabetes mellitus GERD (gastroesophageal reflux disease) Hiatal hernia HLD (hyperlipidemia) Hypertension Sarcoidosis dx'd prior to 2001 via bx of face. Sagastume's esophagus Past Surgical History: Procedure Laterality Date IR NEPHROSTOMY TUBE PLACEMENT PERCUTANEOUS LEFT 09/27/2018 IR Nephrostomy Tube Placement Percutaneous Left 09/27/2018 Justin De La Cruz MD [facility] INTERVENTIONL RAD MAMMO CLIP PLACEMENT LEFT Left 07/19/2023 Mammo Magseed Placement Left 07/19/2023 Dorothy Hammond MD [facility] RAD MAMMOGRAPHY MAMMO US BIOPSY LEFT Left 06/05/2023 Mammo Us Biopsy Left 06/05/2023 Dorothy Hammond MD [facility] RAD MAMMOGRAPHY PRO ANTERIOR INSTRUMENTATION 2-3 VERTEBRAL SEGMENTS Midline 01/18/2023 ANT. SPINAL INSTRUMENTATION, 2-3 VERTEBRA, SEGMENTED (WRVU 11.94) performed by Jimmy Swann MD at [facility] MAIN OR PRO ARTHRODESIS, ANT INTERBODY,DECOMPRESSION; CERVICAL BELOW C2 Midline 01/18/2023 ARTHRODESIS, ANT INTERBODY,DECOMPRESSION; CERVICAL BELOW C2 (WRVU 25) performed by Jimmy Swann MD at [facility] MAIN OR PRO BX/REMV, LYMPH NODE, DEEP AXILL Left 07/19/2023 BIOPSY OR EXCISION OF LYMPH NODE(S), OPEN, DEEP AXILLARY NODE(S) (WRVU 6.43) performed by Caitlyn Hirsch MD at [facility] OSC PRO INSERT BIOMCHN DEV INTERVERTEBRAL DSC SPC W/ARTHRD Midline 01/18/2023 INSERTION INTERBODY BIOMECH DEV TO INTERVEBRAL DISC SPACE, EA INTERSPACE (WRVU 4.25) performed by Jimmy Swann MD at [facility] MAIN OR PRO INTRAOP SENTINEL LYMPH ID W/DYE INJECTION Left 07/19/2023 INTRAOPERATIVE ID (MAPPING) SENTINEL LYMPH NODE,INCLUDES INJECTION (WRVU 2.5) performed by Caitlyn Hirsch MD at [facility] OSC PRO MASTECTOMY PARTIAL Left 07/19/2023 MASTECTOMY PARTIAL (WRVU 10.13) performed by Caitlyn Hirsch MD at [facility] OSC Your Medications Accurate as of December 05, 2023 3:12 PM. If you have any questions, ask your nurse or doctor. Continued medications with new dosing Dose Details HumuLIN R U-500 (Conc) Kwikpen 500 unit/mL (3 mL) Insulin Pen Take 10 units with breakfast, 5 units at lunch and 10 units at bedtime Generic drug: insulin regular human U-500 What changed: additional instructions Refills: 0 Continued medications, unchanged Dose Details acetaminophen 500 mg tablet Commonly known as: Tylenol Take 2 tablets by mouth every 6 hours as needed for Pain. 1,000 mg Refills: 0 albuteroL 90 mcg/actuation inhaler (HFA) Every 4 hours. Refills: 0 anastrozole 1 mg tablet Commonly known as: Arimidex Take 1 tablet by mouth daily. 1 mg Quantity: 90 tablet Refills: 3 dulaglutide 4.5 mg/0.5 mL Pen Injector Commonly known as: Trulicity Inject 0.5 mLs subcutaneously once a week. Indications: type 2 diabetes mellitus 4.5 mg Quantity: 6 mL Refills: 3 EPINEPHrine 0.3 mg/0.3 mL Auto-Injector Inject 0.3 mg into the muscle once as needed. 0.3 mg Refills: 0 fluticasone propionate 50 mcg/actuation nasal spray, suspension Commonly known as: Flonase 1 spray by Each Nare route as needed. 1 spray Refills: 0 fluticasone propionate-salmeteroL 230-21 mcg/actuation inhaler (HFA) Commonly known as: Advair HFA Inhale 1 puff into the lungs 2 times daily. 1 puff Refills: 0 FreeStyle Alonzo 14 Day Sensor Kit Generic drug: flash glucose sensor Refills: 0 gabapentin 100 mg capsule Commonly known as: Neurontin Take 100 mg by mouth nightly as needed. 100 mg Refills: 0 ibuprofen 600 mg tablet Commonly known as: Advil Take 1 tablet by mouth every 6 hours as needed for Pain. 600 mg Refills: 0 Lipitor 80 mg tablet Take 80 mg by mouth nightly. Generic drug: atorvastatin 80 mg Refills: 0 loperamide 2 mg capsule Commonly known as: Imodium A-D Take 2 mg by mouth 4 times daily as needed for Diarrhea. 2 mg Refills: 0 metoprolol succinate XL 50 mg ER 24 hr tablet Commonly known as: Toprol-XL Take 1 tablet by mouth daily. 50 mg Quantity: 30 tablet Refills: 12 montelukast 10 mg tablet Commonly known as: Singulair Take 10 mg by mouth daily. 10 mg Refills: 0 nitroGLYcerin 0.4 mg sublingual tablet Commonly known as: Nitrostat Place 1 tablet under the tongue every 5 minutes as needed for Chest pain. 0.4 mg Quantity: 25 tablet Refills: PRN olmesartan 20 mg tablet Commonly known as: Benicar Take 20 mg by mouth daily. 20 mg Refills: 0 pantoprazole EC [address] tablet Commonly known as: Protonix Take 20 mg by mouth daily. 20 mg Refills: 0 REMEDY PHYTOPLEX MOISTURIZER TOP Apply topically. Phytoplex Remedy Moisturizer: Apply to area of radiation twice a day but no less than 2 hours before a treatment. Refills: 0 senna-docusate 8.6-50 mg Tablet Commonly known as: Pericolace Take 2 tablets by mouth 2 times daily as needed for Constipation. 2 tablet Refills: 0 Tessalon Perles 100 mg capsule Take 100 mg by mouth 3 times daily as needed. Generic drug: benzonatate 100 mg Refills: 0 triamcinolone 0.5 % Cream Commonly known as: ARISTOCORT Apply topically 3 times daily as needed. Refills: 0 Zofran 4 mg tablet Take 4 mg by mouth as needed. Generic drug: ondansetron 4 mg Refills: 0 Physical Exam Constitutional: General: She is not in acute distress. Comments: BP 135/64 (Patient Position: Sitting) Pulse 68 Temp 36.2 ??C (97.1 ??F) (Temporal) Resp 18 Wt 72.3 kg (159 lb 6.4 oz) SpO2 100% BMI 29.15 kg/m?? HENT: Head: Normocephalic. Eyes: General: No scleral icterus. Right eye: No discharge. Left eye: No discharge. Extraocular Movements: Extraocular movements intact. Conjunctiva/sclera: Conjunctivae normal. Pulmonary: Effort: Pulmonary effort is normal. No respiratory distress. Breath sounds: No stridor. Chest: Breasts: Right: No inverted nipple, mass, nipple discharge, skin change or tenderness. Left: Skin change (mild hyperpigmentation, consistent w/post xrt change) present. No inverted nipple, mass, nipple discharge or tenderness. Abdominal: General: There is no distension. Palpations: Abdomen is soft. There is no mass. Tenderness: There is no abdominal tenderness. There is no guarding or rebound. Musculoskeletal: General: No swelling or tenderness. Normal range of motion. Cervical back: Normal range of motion and neck supple. No tenderness. Right lower leg: No edema. Left lower leg: No edema. Lymphadenopathy: Head: Right side of head: No submental, submandibular, preauricular, posterior auricular or occipital adenopathy. Left side of head: No submental, submandibular, preauricular, posterior auricular or occipital adenopathy. Cervical: No cervical adenopathy. Upper Body: Right upper body: No supraclavicular or axillary adenopathy. Left upper body: No supraclavicular or axillary adenopathy. Neurological: Mental Status: She is alert and oriented to person, place, and time. Coordination: Coordination normal. Gait: Gait normal. Psychiatric: Mood and Affect: Mood normal. Behavior: Behavior normal. Thought Content: Thought content normal. Judgment: Judgment normal. A: Recovering well from xrt. P: Care of irradiated skin discussed. Rtc July. Dr. Hirsch w/elisha 01/24/24. documented in this encounter Plan of Treatment Upcoming Encounters Date Type Department Care Team (Late st Contact Info) Description 01/09/2024 2:20 PM EST TH Visit (TeleHealth) Hematology and Oncology at [place] [phone] Kati Burnette MD [facility] DR HEMATOLOGY [place] [address] 01/24/2024 9:30 AM EST Appointment XRay at [address] [place] [phone] Jimmy Swann MD [facility] [place] [address] 01/24/2024 11:00 AM EST Office Visit Pain [place] [phone] Regulo Wang PA [facility] [place] [address] 01/24/2024 2:45 PM EST Appointment [place] [phone] 01/24/2024 3:45 PM EST Office Visit General Surgery at [place] [phone] Caitlyn Hirsch MD [facility] [place] [address] 03/20/2024 9:00 AM EST Office Visit Hematology [place] [address] Ericka Forrest [facility] DR HEMATOLOGY [place] [address] 07/29/2024 2:00 PM EDT Office Visit Radiation Oncology at [address] [phone] Kasie Marte MD [facility] [place] [address] documented as of this encounter Visit Diagnoses Diagnosis S/P radiotherapy Convalescence following radiotherapy documented in this encounter Care Teams Cash Analyst Relationship Specialty Start Date End Date Haylee Baptiste MD [address] [place] [address] PCP - General 01/21/10 documented as of this encounter
--- OUTSIDE RECORDS SUMMARY | 2023-12-15 12:35 | XMS_ITS | Encounter Summary ---
Author Organization [facility] Address [facility] [place] [address] Care Team Providers Care Secretary Specialist Name Role Phone Haylee Baptiste MD Primary Care Provider [phone] Encounter Details Date Type Department Care Team (Late st Contact Info) Description 09/13/2023 Orders Only Radiation Oncology at [address] [address] Kasie Marte MD [facility] [place] [address] Malignant neoplasm of upper-inner quadrant of left [...] from your doctor or pharmacy? Never 08/01/2023 [facility] Utilities Answer Date Recorded In the past 12 months has e [employer], gas, oil, or water [email or web address] threatened to shut off services in your [...] any time in the past 12 m [facility], were you homeless or living in [...] TH Visit (TeleHealth) [place] [address] Kati Burnette MD [facility] HEMATOLOGY [place] [address] 01/24/2024 9:30 AM EST Appointment XRay at [address] [place] [address] Jimmy Swann MD [facility] [place] [address] 01/24/2024 11:00 AM EST Office Visit Pain [place] [address] Regulo Wang PA [facility] DR PA[place] [address] 01/24/2024 2:45 PM EST Appointment [place] [address] 01/24/2024 3:45 PM EST Office [place] [address] Caitlyn Hirsch MD [facility] DR GENER[place] [address] 03/20/2024 9:00 AM EST Office Visit Hematology and Oncology at [place] [phone] Ericka Forrest, [facility] DR HEMATOLOGY [place] [address] 07/29/2024 2:00 PM EDT Office Visit Radiation Oncology at [address] [phone] Kasie Marte MD [facility] DR RADIATION [place] [address] Scheduled Orders Name Type Priority Associated Diagnoses Orde r Schedule CBC (with Diff) Lab Routine Malignant neoplasm of upper-inner quadrant of left breast in female, estrogen receptor positive Expected: 09/14/2023 (Approximate), Expires: 09/12/2024 documented as of this encounter Visit Diagnoses Diagnosis Malignant neoplasm of upper-inner quadrant of left breast in female, estrogen receptor positive documented in this encounter Care Teams Secretary Specialist Relationship Specialty Start Date End Date Haylee Baptiste MD [address] [place] [address] PCP - General 01/21/10 documented as of this encounter
--- OUTSIDE RECORDS SUMMARY | 2023-12-15 12:35 | XMS_ITS | Encounter Summary ---
Author Organization [facility] Address [facility] [place] [address] Care Team Providers Care Manager Of Hospital Name Role Phone Haylee Baptiste MD Primary Care Provider [phone] Reason for Visit * Reason Comments On Treatment Visit Encounter Details Date Type Department Care Team (Late st Contact Info) Description 10/31/2023 8:15 AM EDT Office Visit Radiation Oncology at [address] [phone] Kasie Marte MD [facility] [place] [address] Malignant neoplasm of upper-inner quadrant of left [...] from your doctor or pharmacy? Never 08/01/2023 [facility] Utilities Answer Date Recorded In the [...] money to buy more. Never true 08/01/19 Within the past 12 months, t he [...] any time in the past 12 m [facility], were you homeless or living in a jail (including now)? No 08/01/2023 DH IPV Inpatient [...] Sign Reading Time Taken Comments Blood Pressure 105/61 10/31/2023 8:33 AM EDT Pulse 57 10/31/2023 8:33 AM EDT Temperature 36.5 ??C (97.7 ??F) 10/31/2023 8:33 AM ED T Respiratory Rate 16 10/31/2023 8:33 AM EDT Oxygen Saturation 99% 10/31/2023 8:33 AM EDT Inhaled Oxygen Concentration - - Weight 73.9 kg (163 lb) 10/31/2023 8:33 AM EDT w ith shoes Height - - Body Mass Index 29.81 10/10/2023 8:45 AM EDT documented in this encounter Patient Instructions * Patient Instructions* Kasie Marte MD - 10/31/2023 8:15 AM EDT Your last radiotherapy will be on M., 11/06/23. Start anastrozole M., 11/20/23. Continue remedy cream @ least once/day to left breast. 1% hydrocortisone cream can be applied for itchiness. Do not use a straight/regular razor on your left underarm. An electric razor is ok. Do not expose the irradiated area to sun, cover it with clothing. Do not swim in chlorinated water. Saltwater or freshwater is ok. Do not expose irradiated area to hot tub water. Hot bath/shower is ok. Followup T., 12/05/23 @ 2. documented in this encounter Progress Notes * Kasie Marte MD - 10/31/2023 8:15 AM EDT Images from the original note were not included. DIAGNOSIS: Breast ca, L, IDC w/lobular features, gr 2, ER+[place]+, Her2-, s/p lumpectomy & SNB, pT1c(m) pN0. Oncotype DX 14. Enrolled on BR007 ALEJO trial evaluating xrt omission. Anastrozole to start after xrt completion. CURRENT TREATMENT DOSE: 29.26 Gy L breast ANTICIPATED TOTAL DOSE: 42.56 Gy L breast, 52.56 Gy lumpectomy bed Current # of xrt received: 16 L breast Anticipated total # of xrt txs: 16 L breast, 20 lumpectomy bed Evaluation of port verification films: Approved. For details, see electronic film record in [employer]. Changes in Medical Condition: Mild itchiness in fold underneath L breast which typically occurs in summer & which she usually manages w/1% hydrocortisone cream. Pain?: No. Your Medications Accurate as of October 31, 2023 9:11 AM. If you have any questions, ask your [...] drug: ondansetron 4 mg Refills: 0 Physical Exam: BP 105/61 (Patient Position: Sitting) Pulse 57 Temp 36.5 ??C (97.7 ??F) (Temporal) Resp 16 Wt 73.9 kg (163 lb) Comment: with shoes SpO2 99% BMI 29.81 kg/m?? A&Ox3, NAD. Mild-moderate erythema in L inframammary fold w/mild folliculitis, no desquamation.Amb stable. Imagin10/03/23 Dx'ic Rad Interp Ctsim: No suspicious lesion. Performance Status: KPS 100%. Response to xrt: As expected. Irradiation Related Symptoms: Dermatitis. Treatment for Symptom Control: Given mepilex-lite. 1% hydrocortisone cream, remedy cream. Pain Management: Not needed. Recommendation on Continuing Course of xrt: Continue. Completes xrt 11/06/23. Care of irradiated skin discussed. Advised to start anastrozole 11/20/23 (per Dr. Burnette's note to start mid Nov; will confirm w/her). Rtc 12/05/23. documented in this encounter Plan of Treatment Upcoming Encounters Date Type Department Care Team (Late st Contact Info) Description 01/09/2024 2:20 PM EST TH Visit (TeleHealth) Hematology and Oncology at [place] [phone] Kati Burnette MD [facility] DR HEMATOLOGY [place] [address] 01/24/2024 9:30 AM EST Appointment XRay at [address] [place] Jimmy Swann MD [facility] [place] [address] 01/24/2024 11:00 AM EST Office Visit Pain and Spine Center at [address] Regulo Wang PA [facility] [place] [address] 01/24/2024 2:45 PM EST Appointment Mammography at [place] [phone] 01/24/2024 3:45 PM EST Office Visit General Surgery at [address] Caitlyn Hirsch MD [facility] [place] [address] 03/20/2024 9:00 AM EST Office Visit Hematology and Oncology at [place] [phone] Ericka Forrest [facility] DR HEMATOLOGY [place] [address] 07/29/2024 2:00 PM EDT Office Visit Radiation Oncology at [address] [phone] Kasie Marte MD [facility] [place] [address] documented as of this encounter Visit Diagnoses Diagnosis Malignant neoplasm of upper-inner quadrant of left breast in female, estrogen receptor positive documented in this encounter Care Teams Manager Of Hospital Relationship Specialty Start Date End Date Haylee Baptiste MD [address] [place] [address] PCP - General 01/21/10 documented as of this encounter
--- OUTSIDE RECORDS SUMMARY | 2023-12-15 12:35 | XMS_ITS | Encounter Summary ---
Author Organization [facility] Address [facility] [place] [address] Care Team Providers Care Floor Attendant Name Role Phone Haylee Baptiste MD Primary Care Provider [phone] Encounter Details Date Type Department Care Team (Latest Contact Info) Description 11/03/2023 Travel Social History Tobacco Use Types Packs/Day [...] from your doctor or pharmacy? Never 08/01/2023 [facility] Utilities Answer Date Recorded In the [...] any time in the past 12 m [facility], were you homeless or living in a fdc (including now)? No 08/01/2023 IPV Inpatient Questions [...] TH Visit (TeleHealth) Hematology [place] [address] Kati Burnette MD [facility] HEMATOLOGY [place] [address] 01/24/2024 9:30 AM EST Appointment XRay at [address] [place] [address] Jimmy Swann MD [facility] [place] [address] 01/24/2024 11:00 AM EST Office Visit Pain [place] [address] Regulo Wang PA [facility] [place] [address] 01/24/2024 2:45 PM EST [place] [address] 01/24/2024 3:45 PM EST Office [place] [address] Caitlyn Hirsch MD [facility] [place] [address] 03/20/2024 9:00 AM EST Office Visit [place] [address] [facility] [address] [place] [address] 07/29/2024 2:00 PM EDT Office Visit Radiation Oncology at [address] [phone] Kasie Marte MD [facility] [place] [address] documented as of this encounter Visit Diagnoses Not on filedocumented in this encounter Care Teams Floor Attendant Relationship Specialty Start Date End Date Haylee Baptiste MD [address] [place] [address] PCP - General 01/21/10 documented as of this encounter
--- OUTSIDE RECORDS SUMMARY | 2023-12-15 12:35 | XMS_ITS | Encounter Summary ---
Author Organization [facility] Address [facility] [place] [address] Care Team Providers Care Needle Board Repairer Name Role Phone Haylee Baptiste MD Primary Care Provider [phone] Encounter Details Date Type Department Care Team (Latest Contact Info) Description 10/12/2023 Travel Social History Tobacco Use Types Packs/Day [...] from your doctor or pharmacy? Never 08/01/2023 [facility] Utilities Answer Date Recorded In [...] time in the past 12 m [facility], were you homeless or living in a jail (including now)? No 08/01/2023 IPV Inpatient Questions [...] TH Visit (TeleHealth) [place]ematology [place] [address] Kati Burnette MD [facility] [place] [address] 01/24/2024 9:30 AM EST Appointment XRay at [address] [place] [address] Jimmy Swann MD [facility] [place] [address] 01/24/2024 11:00 AM EST Office Visit [place] [address] Regulo Wang PA [facility] [place] [address] 01/24/2024 2:45 PM EST [place] [address] 01/24/2024 3:45 PM EST Office [place] [address] Caitlyn Hirsch MD [facility] [address] 03/20/2024 9:00 AM EST Office Visit [place]ematology [place] [address] Ericka Forrest [facility] [address] [place] [address] 07/29/2024 2:00 PM EDT Office Visit Radiation Oncology at [address] [phone] Kasie Marte MD [facility] [place] [address] documented as of this encounter Visit Diagnoses Not on filedocumented in this encounter Care Teams Needle Board Repairer Relationship Specialty Start Date End Date Haylee Baptiste MD [address] [place] [address] PCP - General 01/21/10 documented as of this encounter
--- OUTSIDE RECORDS SUMMARY | 2023-12-15 12:35 | XMS_ITS | Encounter Summary ---
Author Organization [facility] Address [facility] [place] [address] Care Team Providers Care Document Control Clerk Name Role Phone Haylee Baptiste MD Primary Care Provider [phone] Reason for Visit * Reason Comments On Treatment Visit Encounter Details Date Type Department Care Team (Late st Contact Info) Description 10/24/2023 9:00 AM EDT Office Visit Radiation Oncology at [address] [phone] Kasie Marte MD [facility] [place] [address] Malignant neoplasm of upper-inner quadrant of left [...] from your doctor or pharmacy? Never 08/01/2023 [facility] Utilities Answer Date Recorded In [...] any time in the past 12 m [facility], were you homeless or living in a fpc (including now)? No 08/01/2023 DH IPV Inpatient [...] Sign Reading Time Taken Comments Blood Pressure 109/58 10/24/2023 9:11 AM EDT Pulse 80 10/24/2023 9:11 AM EDT Temperature 36.3 ??C (97.3 ??F) 10/24/2023 9:11 AM ED T Respiratory Rate 18 10/24/2023 9:11 AM EDT Oxygen Saturation 100% 10/24/2023 9:11 AM EDT Inhaled Oxygen Concentration - - Weight 73.5 kg (162 lb) 10/24/2023 9:11 AM EDT w elena sandals Height - - Body Mass Index 29.63 10/10/2023 8:45 AM EDT documented in this encounter Progress Notes * Kasie Marte MD - 10/24/2023 9:00 AM EDT Images from the original note were not included. DIAGNOSIS: Breast ca, L, IDC w/lobular features, gr 2, ER+[place]+, Her2-, s/p lumpectomy & SNB, pT1c(m) pN0. Oncotype DX 14. Enrolled on BR007 [facility] trial evaluating xrt omission. CURRENT TREATMENT DOSE: 29.26 Gy L breast ANTICIPATED TOTAL DOSE: 42.56 Gy L breast, 52.56 Gy lumpectomy bed Current # of xrt received: 11 L breast Anticipated total # of xrt txs: 16 L breast, 20 lumpectomy bed Evaluation of port verification films: Approved. For details, see electronic film record in [employer]. Changes in Medical Condition: A little pinkness in fold underneath L breast which typically occurs in summer & which she usually manages w/1% hydrocortisone cream. Mild diarrhea, which she usually develops during stress & she usually manages w/imodium, which she is now using with control ofthe diarrhea. Pain?: No. Your Medications Accurate as of October 24, 2023 9:18 AM. If you have any questions, ask [...] 4 mg Refills: 0 Physical Exam: BP 109/58 (Patient Position: Sitting) Pulse 80 Temp 36.3 ??C (97.3 ??F) Resp 18 Wt 73.5 kg (162 lb) Comment: with sandals SpO2 100% BMI 29.63 kg/m?? A&Ox3, NAD. Minimal-mild erythema in L inframammary fold w/mild folliculitis, no desquamation. Amb stable. Imagin10/03/23 Dx'ic Rad Interp Ctsim: No suspicious lesion. Performance Status: KPS 100%. Response to xrt: As expected. Irradiation Related Symptoms: Dermatitis. Treatment for Symptom Control: 1% hydrocortisone cream, remedy cream. Pain Management: Not needed. Recommendation on Continuing Course of xrt: Continue. documented in this encounter Plan of Treatment Upcoming Encounters Date Type Department Care Team (Late st Contact Info) Description 01/09/2024 2:20 PM EST TH Visit (TeleHealth) Hematology [place] [address] Kati Burnette MD [facility] DR [place] [address] 01/24/2024 9:30 AM EST Appointment XRay at [address] [place] [phone] Jimmy Swann MD [facility] [place] [address] 01/24/2024 11:00 AM EST Office Visit Pain [place] [phone] Regulo Wang PA [facility] [place] [address] 01/24/2024 2:45 PM EST [place] [address] 01/24/2024 3:45 PM EST Office Visit General Surgery at [address]1000 Caitlyn Hirshc MD [facility] [place] [address] 03/20/2024 9:00 AM EST Office Visit Hematology and Oncology at [place] [phone] Ericka Forrest, [facility] DR HEMATOLOGY [place] [address] 07/29/2024 2:00 PM EDT Office Visit Radiation Oncology at [address] [phone] Kasie Marte MD [facility] [place] [address] documented as of this encounter Visit Diagnoses Diagnosis Malignant neoplasm of upper-inner quadrant of left breast in female, estrogen receptor positive documented in this encounter Care Teams Document Control Clerk Relationship Specialty Start Date End Date Haylee Baptiste MD [address] [place] [address] PCP - General 01/21/10 documented as of this encounter
--- OUTSIDE RECORDS SUMMARY | 2023-12-15 12:35 | XMS_ITS | Encounter Summary ---
Author Organization [facility] Address [facility] [place] [address] Care Team Providers Care Early Childhood Lead Teacher Name Role Phone Haylee Baptiste MD Primary Care Provider [phone] Encounter Details Date Type Department Care Team (Late st Contact Info) Description 09/14/2023 Telephone Radiation Oncology at [address] [phone] Miryam Salazar, RN Social History Tobacco Use Types Packs/Day Years [...] doctor or pharmacy? Never 08/01/2023 [facility] Utilities Answer Date Recorded In the past 12 months has th e [employer], gas, oil, or water [employer] threatened to shut off services in your [...] any time in the past 12 m [facility], were you homeless or living in a fdc (including now)? No 08/01/2023 DH IPV Inpatient [...] encounter Miscellaneous Notes * Telephone Encounter - Miryam Salazar RN - 09/14/2023 9:11 AM EDT Clinical Research Nurse Telephone Note [place], [place] Study Number: [id number] Study title: A Phase III Clinical Trial Evaluating DE-escalation of Breast RAdiation (ALEJO) for Conservative Treatment of Stage I, Hormone Sensitive, HER2-Negative, Oncotype Recurrence Score [less than or equal to] 18 Breast Cancer. Background information : patient consented to BR007 yesterday 09/13/23 Reason for call: discuss further information needed for eligibility. Date : 09/14/23 Time: 8:40 AM Patient informed that we need a CBC for eligibility. She will have lab drawn today that will be sent to [facility]. I also review with her: She denies any active collagen vascular disease. She states that her breast incision has completely healed. She is working fulltime and ECOG = 0 Plan: Once we have the CBC results, the eligibility checklist will be sent to the coordinator and Dr Marte for signature. She will then be registered and randomized into the study. I will call her with the results. She agreed with this plan and states she has no questions. documented in this encounter Plan of Treatment Upcoming Encounters Date Type Department Care Team (Late st Contact Info) Description 01/09/2024 2:20 PM EST TH Visit (TeleHealth) Hematology and Oncology at [place] [phone] Kati Burnette MD [facility] [place] [address] 01/24/2024 9:30 AM EST Appointment XRay at [address] [place] [phone] Jimmy Swann MD [facility] [place] [address] 01/24/2024 11:00 AM EST Office Visit Pain and Spine Center at [place] [phone] Regulo Wang PA [facility] [place] [address] 01/24/2024 2:45 PM EST Appoint[place] [address] 01/24/2024 3:45 PM EST Office Visit General Surgery at [place] [phone] Caitlyn Hirsch MD [facility] [place] [address] 03/20/2024 9:00 AM EST Office Visit Hematology [place] [address] Ericka Forrest, [facility] DR [place] [address] 07/29/2024 2:00 PM EDT Office Visit Radiation Oncology at [address] [phone] Kasie Marte MD [facility] [place] [address] documented as of this encounter Visit Diagnoses Not on filedocumented in this encounter Care Teams Early Childhood Lead Teacher Relationship Specialty Start Date End Date Haylee Baptiste MD [address] [place] [address] PCP - General 01/21/10 documented as of this encounter
--- OUTSIDE RECORDS SUMMARY | 2023-12-15 12:35 | XMS_ITS | Encounter Summary ---
Author Organization [facility] Address [facility] [place] [address] Care Team Providers Care Dukey Rider Name Role Phone Haylee Baptiste MD Primary Care Provider [phone] Encounter Details Date Type Department Care Team (Latest Contact Info) Description 10/03/2023 Travel Social History Tobacco Use Types Packs/Day [...] Never 08/01/2023 [facility] Utilities Answer Date Recorded In the past [...] in the past 12 m [facility], were you homeless or living [...] TH Visit (TeleHealth) Hematology [place] [address] Kati Burnette MD [facility] [place] [address] 01/24/2024 9:30 AM EST Appointment XRay at [address] [place] [address] Jimmy Swann MD [facility] [place] [place] [address] 01/24/2024 11:00 AM EST Office Visit Pain [place] [address] Regulo Wang PA [facility] [place] [address] 01/24/2024 2:45 PM EST [place] [address] 01/24/2024 3:45 PM EST Office [place] [address] Caitlyn Hirsch MD [facility] [place] [address] 03/20/2024 9:00 AM EST Office Visit [place]ematology [place] [address] Ericka Forrest [facility] DR [place] [address] 07/29/2024 2:00 PM EDT Office Visit Radiation Oncology at [address] [phone] Kasie Marte MD [facility] [place] [address] documented as of this encounter Visit Diagnoses Not on filedocumented in this encounter Care Teams Dukey Rider Relationship Specialty Start Date End Date Haylee Baptiste MD [address] [place] [address] PCP - General 01/21/10 documented as of this encounter
--- OUTSIDE RECORDS SUMMARY | 2023-12-15 12:35 | XMS_ITS | Encounter Summary ---
Author Organization Formerly [facility] Address [facility] [place] [address] Care Team Providers Care Head Coach Name Role Phone Haylee Baptiste MD Primary Care Provider [phone] Encounter Details Date Type Department Care Team (Late st Contact Info) Description 11/06/2023 8:00 AM EDT Office Visit Hematology/Oncology at [address] [address] Miryam Salazar, RN Malignant neoplasm [...] from your doctor or pharmacy? Never 08/01/2023 [facility] Utilities Answer Date Recorded In the past 12 months has [employer] electric, gas, oil, or water company threatened [...] were you homeless or living in a usp (including now)? No 08/01/2023 [facility] IPV Inpatient [...] Progress Notes * Miryam Salazar RN - 11/06/2023 8:00 AM EDT Images from the original note were not included. RESEARCH NURSE OFFICE NOTE [facility] 11/06/23 End of RT study visit. Study Number: [id number] Study title: A Phase III Clinical Trial Evaluating DE-escalation of Breast RAdiation (ALEJO) for Conservative Treatment of Stage I, Hormone Sensitive, HER2-Negative, Oncotype Recurrence Score less than or equal to 18, Breast Cancer. Randomized on 09/25/23 to Arm 1 : RT and HT RT 10/27/23- 11/06/23 SUBJECTIVE Nallely Velazquez presented to rad-onc clinic for last RT as per protocol. 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 She denies any edema of upper extremities. She plans to start Arimdex on 11/20/23 . This is per Dr Marte' instructions. 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 HENT: Negative. Eyes: Negative. Respiratory: Negative. Negative for cough and shortness of breath. Cardiovascular: Negative. Gastrointestinal: Negative. Genitourinary: Negative. Skin: Positive for rash (grade 1 radiation dermatitis left breast inframammary fold). Mild discomfort at radiation dermatitis site. She grades 0.5 ( on 1- 10 scale) Neurological: Negative. Psychiatric/Behavioral: Negative. Hallucinations: no evidence of lymphedema. STUDY ASSESSMENTS COMPLETED H&P see Dr Mittal' recent note Breast assessment AE assessment AE/SIDE EFFECT MONITORING # AE Grade (CTCAE 5.0 ) Start date Stop Date Study Related Intervention/Outcome 1 fatigue 1 11/06/23 2 Dermatitis radiation 1 11/06/23 3 Breast pain 1 11/06/23 EDUCATION PROVIDED Advised to contact this office for any questions/concerns, as well as for any new or worsening symptoms. PLAN 1. Subject agrees to continue on study BR007 per protocol. See study tables below: 2. Next study visit due 30 days after last RT: 12/05/23 at 2:[address] Marte & research RN toinclude: H&P , AE assessment 3. DR Burnette 01/09/24 telehealth visit. Patient verbalizes understanding of and agreement with plan. Randomized to arm 1 documented in this encounter Plan of Treatment Upcoming Encounters Date Type Department Care Team (Late st Contact Info) Description 01/09/2024 2:20 PM EST TH Visit (TeleHealth) [facility] [place] [address] Kati Burnette MD [facility] HEMATOLOGY [place] [address] 01/24/2024 9:30 AM EST Appointment XRay at [address] [place] [address] Jimmy Swann MD [facility] [place] [address] 01/24/2024 11:00 AM EST Office Visit [place] [address] Regulo Wang PA [facility] [place] [address] 01/24/2024 2:45 PM EST Appointment Mammography at [place] [address] 01/24/2024 3:45 PM EST Office [place] [address] Caitlyn Hirsch MD [facility] [place] [address] 03/20/2024 9:00 AM EST Office Visit Hematology and Oncology at [place] [address] Ericka Forrest, [facility] DR HEMATOLOGY [place] [address] 07/29/2024 2:00 PM EDT Office Visit Radiation Oncology at [address] [address] Kasie Marte MD [facility] [place] [address] documented as of this encounter Visit Diagnoses Diagnosis Malignant neoplasm of upper-inner quadrant of left breast in female, estrogen receptor positive documented in this encounter Care Teams Head Coach Relationship Specialty Start Date End Date Haylee Baptiste MD [address] [place] [address] PCP - General 01/21/10 documented as of this encounter
--- OUTSIDE RECORDS SUMMARY | 2023-12-15 12:35 | XMS_ITS | Encounter Summary ---
Author Organization [facility] Address [facility] [place] [address] Care Team Providers Care Corn Sheller Name Role Phone Haylee Baptiste MD Primary Care Provider [phone] Encounter Details Date Type Department Care Team (Latest Contact Info) Description 11/01/2023 Travel Social History Tobacco Use Types Packs/Day [...] doctor or pharmacy? Never 08/01/2023 [facility] Utilities Answer Date Recorded In the past [...] time in the past 12 m [facility], were you homeless or living in a prison (including now)? No 08/01/2023 IPV Inpatient Questions [...] TH Visit (TeleHealth) [place]ology [place] [address] Kati Burnette MD [facility] HEMATOLOGY [place] [address] 01/24/2024 9:30 AM EST Appointment XRay at [address] [place] [address] Jimmy Swann MD [facility] [place] [address] 01/24/2024 11:00 AM EST Office Visit [place] [address] Regulo Wang PA [facility] [place] [address] 01/24/2024 2:45 PM EST [place]oint[place] [address] 01/24/2024 3:45 PM EST Office [place] [address] Caitlyn Hirsch MD [facility] [place] [place] [address] 03/20/2024 9:00 AM EST Office Visit Hematology [place] [address] Ericka Forrest [facility] DR [place] [address] 07/29/2024 2:00 PM EDT Office Visit Radiation Oncology at [address] [phone] Kasie Marte MD [facility] [place] [address] documented as of this encounter Visit Diagnoses Not on filedocumented in this encounter Care Teams Corn Sheller Relationship Specialty Start Date End Date Haylee Baptiste MD [address] [place] [address] PCP - General 01/21/10 documented as of this encounter
--- OUTSIDE RECORDS SUMMARY | 2023-12-15 12:35 | XMS_ITS | Encounter Summary ---
Author Organization Formerly [facility], 1929[address] [place] [address] Care Team Providers Care Gear Tooth Lapping Machine Operator Name Role Phone Haylee Baptiste MD Primary Care Provider [phone] Encounter Details Date Type Department Care Team (Late st Contact Info) Description 09/05/2023 Telephone Hematology [place] [address] David Cool, RN Social History Tobacco Use Types Packs/Day [...] from your doctor or pharmacy? Never 08/01/2023 [facility] Utilities Answer Date Recorded In the past 12 months has e [employer], gas, oil, or water [employer] threatened to shut off services in your [...] any time in the past 12 m [facility], were you homeless or living in a detention (including now)? No 08/01/2023 IPV Inpatient Questions [...] encounter Miscellaneous Notes * Telephone Encounter - David Cool RN - 09/05/2023 10:46 AM EDT Call placed per request of Dr. Nelson regarding [id number] study. LVM on identified voicemail box. Introduced myself as research nurse at [facility] and gave her my direct line to call back. Plan to discuss potential study participation at [facility] when Nallely returns my call. David Cool RN 10:48 AM documented in this encounter Plan of Treatment Upcoming Encounters Date Type Department Care Team (Late st Contact Info) Description 01/09/2024 2:20 PM EST TH Visit (TeleHealth) Hematology [place] [address] Kati Burnette MD [facility] DR [place] [address] 01/24/2024 9:30 AM EST Appointment XRay at [address] [place] [phone] Jimmy Swann MD [facility] [place] [place] [address] 01/24/2024 11:00 AM EST Office Visit Pain and Spine Center at [address] Regulo Wang PA [facility] [place] [place] [address] 01/24/2024 2:45 PM EST [place] [address] 01/24/2024 3:45 PM EST Office Visit General Surgery at [place] [address] Caitlyn Hirsch MD [facility] [place] [address] 03/20/2024 9:00 AM EST Office Visit Hematology and Oncology at [place] [phone] Ericka Forrest, [facility] DR [place] [address] 07/29/2024 2:00 PM EDT Office Visit Radiation Oncology at [address] [phone] Kasie Marte MD [facility] [place] [address] documented as of this encounter Visit Diagnoses Not on filedocumented in this encounter Care Teams Gear Tooth Lapping Machine Operator Relationship Specialty Start Date End Date Haylee Baptiste MD [address] [place] [address] PCP - General 01/21/10 documented as of this encounter
--- OUTSIDE RECORDS SUMMARY | 2023-12-15 12:35 | XMS_ITS | Encounter Summary ---
Author Organization [facility] Address [facility] [place] [address] Care Team Providers Care Word Processing Machine Operator Name Role Phone Halyee Baptiste MD Primary Care Provider [phone] Encounter Details Date Type Department Care Team (Latest Contact Info) Description 10/30/2023 Travel Social History Tobacco Use Types Packs/Day [...] from your doctor or pharmacy? Never 08/01/2023 [facility] Utilities Answer Date Recorded In the past [...] time in the past 12 m [facility], were you homeless or living in a mcfp (including now)? No 08/01/2023 IPV Inpatient Questions [...] TH Visit (TeleHealth) Hematology [place] [address] Kati Burnette MD [facility] HEMATOLOGY [place] [address] 01/24/2024 9:30 AM EST Appointment XRay at [address] [place] [address] Jimmy Swann MD [facility] [place] [address] 01/24/2024 11:00 AM EST Office Visit [place] [address] Regulo Wang PA [facility] [place] [address] 01/24/2024 2:45 PM EST Appoint[place] [address] 01/24/2024 3:45 PM EST Office [place] [address] Caitlyn Hirsch MD [facility] [place] [address] 03/20/2024 9:00 AM EST Office Visit Hematology [place] [address] Ericka Forrest [facility] DR HEMATOLOGY [place] [address] 07/29/2024 2:00 PM EDT Office Visit Radiation Oncology at [address] [phone] Kasie Marte MD [facility] DR [place] [address] documented as of this encounter Visit Diagnoses Not on filedocumented in this encounter Care Teams Word Processing Machine Operator Relationship Specialty Start Date End Date Haylee Baptiste MD [address] [place] [address] PCP - General 01/21/10 documented as of this encounter
--- OUTSIDE RECORDS SUMMARY | 2023-12-15 12:35 | XMS_ITS | Encounter Summary ---
Author Organization [facility] Address [facility] [place] [address] Care Team Providers Care Bible Worker Name Role Phone Haylee Baptiste MD Primary Care Provider [phone] Encounter Details Date Type Department Care Team (Latest Contact Info) Description 09/05/2023 Travel Social History Tobacco Use Types Packs/Day [...] from your doctor or pharmacy? Never 08/01/2023 [facility] Utilities Answer Date Recorded In the [...] in the past 12 m [facility], were you homeless or living in [...] TH Visit (TeleHealth) Hematology [place] [address] Kati Burnette MD [facility] [place] [address] 01/24/2024 9:30 AM EST Appointment XRay at [address] [place] [address] Jimmy Swann MD [facility] [place] [place] [address] 01/24/2024 11:00 AM EST Office Visit Pain [place] [address] Regulo Wang PA [facility] [place] [address] 01/24/2024 2:45 PM EST Appointment [place] [address] 01/24/2024 3:45 PM EST Office Visit [place] [address] Caitlyn Hirsch MD [facility] [place] [address] 03/20/2024 9:00 AM EST Office Visit Hematology [place] [address] Ericka Forrest [facility] [place] [address] 07/29/2024 2:00 PM EDT Office Visit Radiation Oncology at [address] [phone] Kasie Marte MD [facility] [place] [address] documented as of this encounter Visit Diagnoses Not on filedocumented in this encounter Care Teams Bible Worker Relationship Specialty Start Date End Date Haylee Baptiste MD [address] [place] [address] PCP - General 01/21/10 documented as of this encounter
--- OUTSIDE RECORDS SUMMARY | 2023-12-15 12:35 | XMS_ITS | Encounter Summary ---
Author Organization [facility] Address [facility] [place] [address] Care Team Providers Care Furnace Tapper Name Role Phone Haylee Baptiste MD Primary Care Provider [phone] Encounter Details Date Type Department Care Team (Latest Contact Info) Description 10/16/2023 Travel Social History Tobacco Use Types Packs/Day [...] from your doctor or pharmacy? Never 08/01/2023 [facility] Utilities Answer Date Recorded In [...] any time in the past 12 m [facility], were you homeless or living in [...] TH Visit (TeleHealth) [place] [address] [facility] [place] [address] 01/24/2024 9:30 AM EST Appointment XRay at [address] [place] [address] [facility] [place] [address] 01/24/2024 11:00 AM EST Office Visit [place] [address] [facility] [place] [place] [address] 01/24/2024 2:45 PM EST [place]oint[place] [address] 01/24/2024 3:45 PM EST Office [place] [address] [facility] [place] [address] 03/20/2024 9:00 AM EST Office Visit Hematology [place] [address] Ericka Forrest [facility] DR HEMATOLOGY [place] [address] 07/29/2024 2:00 PM EDT Office Visit Radiation Oncology at [address] [phone] Kasie Marte MD [facility] [place] [address] documented as of this encounter Visit Diagnoses Not on filedocumented in this encounter Care Teams Furnace Tapper Relationship Specialty Start Date End Date Haylee Baptiste MD [address] [place] [address] PCP - General 01/21/10 documented as of this encounter
--- OUTSIDE RECORDS SUMMARY | 2023-12-15 12:35 | XMS_ITS | Encounter Summary ---
Author Organization [facility] Address [facility] [place] [address] Care Team Providers Care Automatic Thread Winder Name Role Phone Haylee Baptiste MD Primary Care Provider [phone] Encounter Details Date Type Department Care Team (Late st Contact Info) Description 09/25/2023 Telephone Hematology/Oncology at [address] [address] Miryam Salazar RN Social History Tobacco Use Types Packs/Day [...] doctor or pharmacy? Never 08/01/2023 [facility] Utilities Answer Date Recorded In the past 12 months has th e [employer], gas, oil, or water [employer] threatened to shut off services in your [...] any time in the past 12 m [facility], were you homeless or living in a correction (including now)? No 08/01/2023 DH IPV Inpatient [...] Telephone Encounter - Miryam Salazar RN - 09/25/2023 2:16 PM EDT Clinical Research Nurse Telephone Note [place], [place] Study Number: [id number] Study title: A Phase III Clinical Trial Evaluating DE-escalation of Breast RAdiation (ALEJO) for Conservative Treatment of Stage I, Hormone Sensitive, HER2-Negative, Oncotype Recurrence Score [less than or equal to] 18 Breast Cancer. Randomized on 09/25/23 to RT and HT Background information : patient consented to BR007 09/13/23 Reason for call: inform patient of above randomization results and inform her of SIM appointment tomorrow for mapping purposes to prepare for RT. Date : 09/25/23 Time: 14:15 Telephone call placed to her cell phone and work number . Each phone number have pt identifier information. I left message on each number with information of the randomization results and inform her of SIM appointment tomorrow for mapping purposes to prepare for RT. This appointment time is 12;00 arrival tomorrow I asked that she call clinic to let us know that she has received this information and is planning on attending tomorrow's appointment. Plan: Sim appointment 09/25 With breast RT to start in aproximately a week after once the RT plan is complete. documented in this encounter Plan of Treatment Upcoming Encounters Date Type Department Care Team (Late st Contact Info) Description 01/09/2024 2:20 PM EST TH Visit (TeleHealth) Hematology and Oncology at [place] [phone] Kati Burnette MD [facility] [place] [address] 01/24/2024 9:30 AM EST Appointment XRay at [address] [place] [phone] Jimmy Swann MD [facility] [place] [address] 01/24/2024 11:00 AM EST Office Visit Pain and Spine Center at [place] [phone] Regulo Wang PA [facility] [place] [address] 01/24/2024 2:45 PM EST Appointment Mammography at [address] 01/24/2024 3:45 PM EST Office Visit General Surgery at [place] [phone] Caitlyn Hirsch MD [facility] [place] [address] 03/20/2024 9:00 AM EST Office Visit Hematology [place] [address] Ericka Forrest, [facility] DR HEMATOLOGY [place] [address] 07/29/2024 2:00 PM EDT Office Visit Radiation Oncology at [address] [phone] Kasie Marte MD [facility] [place] [address] documented as of this encounter Visit Diagnoses Not on filedocumented in this encounter Care Teams Automatic Thread Winder Relationship Specialty Start Date End Date Haylee Baptiste MD [address] [place] [address] PCP - General 01/21/10 documented as of this encounter
--- OUTSIDE RECORDS SUMMARY | 2023-12-15 12:35 | XMS_ITS | Encounter Summary ---
Author Organization Formerly [facility], [facility] Address [facility] [place] [address] Care Team Providers Care Glass Cutting Machine Operator Name Role Phone Haylee Baptiste MD Primary Care Provider [phone] Reason for Visit * Reason Comments On Treatment Visit Encounter Details Date Type Department Care Team (Late st Contact Info) Description 10/17/2023 9:15 AM EDT Office Visit Radiation Oncology at [address] [phone] Kasie Marte MD [facility] [place] [address] Malignant neoplasm of upper-inner quadrant of left [...] your doctor or pharmacy? Never 08/01/2023 [facility] Utilities Answer Date Recorded In the [...] any time in the past 12 m [facility], were you homeless or living in a snf (including now)? No 08/01/2023 [facility] IPV Inpatient [...] Sign Reading Time Taken Comments Blood Pressure 100/62 10/17/2023 9:41 AM EDT Pulse 78 10/17/2023 9:41 AM EDT Temperature 37 ??C (98.6 ??F) 10/17/2023 9:41 AM EDT Respiratory Rate 16 10/17/2023 9:41 AM EDT Oxygen Saturation 100% 10/17/2023 9:41 AM EDT Inhaled Oxygen Concentration - - Weight 74.4 kg (164 lb) 10/17/2023 9:41 AM EDT w ith shoes Height - - Body Mass Index 30 10/10/2023 8:45 AM EDT documented in this encounter Progress Notes * Bela Goodrich MD - 10/17/2023 9:15 AM EDT Images from the original note were not included. DIAGNOSIS: Breast ca, L, IDC w/lobular features, gr 2, ER+WA+, Her2-, s/p lumpectomy & SNB, pT1c(m) pN0. Oncotype DX 14. Enrolled on BR007 [facility] trial evaluating xrt omission. CURRENT TREATMENT DOSE: 15.96 Gy L breast ANTICIPATED TOTAL DOSE: 42.56 Gy L breast, 52.56 Gy lumpectomy bed Current # of xrt received: 6 L breast Anticipated total # of xrt txs: 16 L breast, 20 lumpectomy bed Evaluation of port verification films: Approved. For details, see electronic film record in [employer]. Changes in Medical Condition: None. Patient continues to apply remedy cream. Pain?: No. Your Medications Accurate as of October 17, 2023 10:01 AM. If you have any questions, ask [...] Generic drug: atorvastatin 80 mg Refills: 0 metoprolol succinate XL 50 [...] 4 mg Refills: 0 Physical Exam: BP 100/62 (Patient Position: Sitting) Pulse 78 Temp 37 ??C (98.6 ??F) (Temporal) Resp 16 Wt74.4 kg (164 lb) Comment: with shoes SpO2 100% BMI 30.00 kg/m?? A&Ox3, NAD. Skin L breast w/. Minimal-mild erythema, no desquamation. Amb stable. Imagin10/03/23 Dx'ic Rad Interp Ctsim: No suspicious lesion. Performance Status: KPS 100%. Response to xrt: As expected. Irradiation Related Symptoms: Minimal skin reaction. Treatment for Symptom Control: Remedy cream. Pain Management: Not needed. Recommendation on Continuing Course of xrt: Continue. Bela Goodrich MD PGY3 [facility] Radiation Oncology I have seen the patient in person and reviewed the resident's above history and I agree with the details as written. The assessment and plan were formulated in discussion with me and I agree with them as documented. Pertinent History: Nallely is a 68 y/o f w/breast ca, L, IDC w/lobular features, gr 2, ER+WA+, Her2-, s/p lumpectomy & SNB, pT1c(m) pN0. Oncotype DX 14. Enrolled on BR007 [employer] trial evaluating xrt omission. She is undergoing L breast xrt & to date has received 15.96 Gy/6 fxs out of planned 42.56 Gy/16fxs L breast, to be followed by 10 Gy/4 fxs lumpectomy bed boost. S: No change in L breast. Supporting a colleague w/recent breast ca dx. Pertinent Exam: L breast w/o erythema. Imagin10/03/23 Dx'ic Rad Interp Ctsim: No suspicious lesion. Major issues addressed: Tolerating xrt well. Plan: Continue xrt. Remedy cream for irradiated skin. documented in this encounter Plan of Treatment Upcoming Encounters Date Type Department Care Team (Late st Contact Info) Description 01/09/2024 2:20 PM EST TH Visit (TeleHealth) Hematology [place] [address] Kati Burnette MD [facility] [address] [place] [address] 01/24/2024 9:30 AM EST Appointment XRay at [address] [place] [phone] Jimmy Swann MD [facility] [place] [place] [address] 01/24/2024 11:00 AM EST Office Visit Pain and Spine Center at [address] Regulo Wang PA [facility] [place] [address] 01/24/2024 2:45 PM EST Appointment Mammography at [address] 01/24/2024 3:45 PM EST Office Visit General Surgery at [place] [phone] Caitlyn Hirsch MD [facility] [place] [address] 03/20/2024 9:00 AM EST Office Visit Hematology and Oncology at [place] [phone] Ericka Forrest, [facility] DR [place] [address] 07/29/2024 2:00 PM EDT Office Visit Radiation Oncology at [address] [phone] Kasie Marte MD [facility] [place] [address] documented as of this encounter Visit Diagnoses Diagnosis Malignant neoplasm of upper-inner quadrant of left breast in female, estrogen receptor positive documented in this encounter Care Teams Glass Cutting Machine Operator Relationship Specialty Start Date End Date Haylee Baptiste MD [address] [place] [address] PCP - General 01/21/10 documented as of this encounter
--- OUTSIDE RECORDS SUMMARY | 2023-12-15 12:35 | XMS_ITS | Encounter Summary ---
Author Organization [facility] Address [facility] [place] [address] Care Team Providers Care Miner Helper Name Role Phone Haylee Baptiste MD Primary Care Provider [phone] Encounter Details Date Type Department Care Team (Latest Contact Info) Description 08/31/2023 9:00 AM EDT TH Visit (TeleHealth) Hematology [place] [address] Kati Burnette MD [facility] DR HEMATOLOGY [place] [address] Malignant neoplasm of upper-inner quadrant of left [...] from your doctor or pharmacy? Never 08/01/2023 [facility] Utilities Answer Date Recorded In [...] any time in the past 12 m [facility], were you homeless or living in a long-term (including now)? No 08/01/2023 IPV Inpatient Questions [...] as of this encounter Progress Notes * Kati Bunrette MD - 08/31/2023 9:00 AM EDT Nallely Velazquez is a 68 y.o. 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 Oncotype: 14 ( 4 % distant recurrence with hormones) Favor AI but need recent dexa September 04 appt with Rad onc: interested in SCOTTIE trial. BREAST CANCER HISTORY: 2nd read screening MMG/US from 05/26/23 lMMG/US BIRADS 5: left breast [address] WNL 06/08/2023: MRI breasts: 11:oc: 3 cm mass with 1. [address] with cortical bulge. No other Lns and right normal 2nd look US on left: normal LN. 06/05/2023: left breast biopsy: Path: IDC with lobular features No LVI ER>95 [place] > 95 HER 2 keenan non amplified 07/19/2023 : LLE + SLNB ( 0/2) Path: IDC with lobular features T= 1.7 cm DCIS ADH Neg margin Oncootype: 14 ( 4 % distant recurrence with hormones) Past Medical History: Diagnosis Date CAD (coronary artery disease) Cervical radiculopathy at C7 CKD (chronic kidney disease) stage 3, GFR 30-59 ml/min Diabetes mellitus GERD (gastroesophageal reflux disease) Hiatal hernia HLD (hyperlipidemia) Hypertension Sarcoidosis Has residual numbness in the left hand from the cervical radiculopathy Left kidney failure in 2019. Had nephrostomy tube. It resolved. Tube removed. Baseline Cr ~ 1.5. Past Surgical History: Procedure Laterality Date IR NEPHROSTOMY TUBE PLACEMENT PERCUTANEOUS LEFT 09/27/2018 IR Nephrostomy Tube Placement Percutaneous Left 09/27/2018 Justin De La Cruz MD [facility] INTERVENTIONL RAD MAMMO CLIP PLACEMENT LEFT Left 07/19/2023 Mammo Magseed Placement Left 07/19/2023 Dorothy Hammond MD [facility] RAD MAMMOGRAPHY MAMMO US BIOPSY LEFT Left 06/05/2023 Mammo Us Biopsy Left 06/05/2023 Dorothy Hammond MD [facility] RAD MAMMOGRAPHY PRO ANTERIOR INSTRUMENTATION 2-3 VERTEBRAL SEGMENTS Midline 01/18/2023 ANT. SPINAL INSTRUMENTATION, 2-3 VERTEBRA, SEGMENTED (WRVU 11.94) performed by Jimmy Swann MD at [facility] MAIN OR PRO ARTHRODESIS, ANT INTERBODY,DECOMPRESSION; CERVICAL BELOW C2 Midline 01/18/2023 ARTHRODESIS, ANT INTERBODY,DECOMPRESSION; CERVICAL BELOW C2 (WRVU 25) performed by Jimmy Swann MD at [facility] MAIN OR PRO BX/REMV, LYMPH NODE, DEEP AXILL Left 07/19/2023 BIOPSY OR EXCISION OF LYMPH NODE(S), OPEN, DEEP AXILLARY NODE(S) (WRVU 6.43) performed by Caitlyn Hirsch MD at [facility] OSC PRO INSERT BIOMCHN DEV INTERVERTEBRAL DSC SPC W/ARTHRD Midline 01/18/2023 INSERTION INTERBODY BIOMECH DEV TO INTERVEBRAL DISC SPACE, EA INTERSPACE (WRVU 4.25) performed by Jimmy Swann MD at [facility] MAIN OR PRO INTRAOP SENTINEL LYMPH ID W/DYE INJECTION Left 07/19/2023 INTRAOPERATIVE ID (MAPPING) SENTINEL LYMPH NODE,INCLUDES INJECTION (WRVU 2.5) performed by Caitlyn Hirsch MD at [facility] OSC PRO MASTECTOMY PARTIAL Left 07/19/2023 MASTECTOMY PARTIAL (WRVU 10.13) performed by Caitlyn Hirsch MD at [facility] OSC MEDS: ALL: Allergies Allergen Reactions Amlodipine Other Reaction(s): cough Iodinated Contrast Media Anaphylaxis Iodine And Iodide Containing Products Anaphylaxis Metformin Other (See Comments) Other Reaction(s): Diarrhea Shellfish Derived Anaphylaxis Other Reaction(s): other Codeine Phosphate Nausea And Vomiting Meperidine Hcl Nausea And Vomiting Nausea/Vomiting Morphine Sulfate Nausea And Vomiting Oxaprozin Nausea And Vomiting Prednisone Rash CIS - Rash with dose greater than 20mg. 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 Use premarin after childbirth. Few years. LMP Jan 28 2002 Review of Systems: Constitutional: Negative. Negative for chills, fatigue and fever. HENT: Negative. Eyes: Negative. Respiratory: Negative. Negative for cough, dizziness on exertion and shortness of breath. Cardiovascular: Negative. Negative for chest pain and leg swelling. Gastrointestinal: Negative. Endocrine: Negative. Genitourinary: Negative. Musculoskeletal: Joint issues at baseline - her right MCP joint is the worse, her left MCP joint too. Knees also ache. Skin: Negative. Neurological: Negative. Hematological: Negative. Psychiatric/Behavioral: Negative. All other systems reviewed and are negative. Physical Exam: Constitutional: She is oriented to person, place, and time. She appears well- developed and well-nourished. No distress. Head: Normocephalic. Eyes: Conjunctivae are normal. sclera anicteric Neck: Normal range of motion. Pulmonary/Chest: Effort normal Extremities: cyanosis or edema Neurological: She is alert and oriented to person, place, and time. Skin: Skin clear Psychiatric: She has a normal mood and affect. Her behavior is normal. A/P: Nallely Velazquez is a 68 y.o. female With a stage 1 luminal breast cancer who is s/p LLE and SLNB, and an oncotype 14. Needs dexa report. ( Haylee Baptiste pcp, will request) If osteoporosis or some degree of osteopenia will do Davis followed by AI as a switching strategy as likely has low bone density by history Mentioned adjuvant bisphosphonate in prior visit Interested in the scottie trial. Reached out to [facility] onc and research teams. Perhaps research team cansent consent to pt. Will start a hormone AFTER RT if she does RT. documented in this encounter Plan of Treatment Upcoming Encounters Date Type Department Care Team (Late st Contact Info) Description 01/09/2024 2:20 PM EST TH Visit (TeleHealth) Hematology [place] [address] Kati Burnette MD [facility] DR HEMATOLOGY [place] [address] 01/24/2024 9:30 AM EST Appointment XRay at [address] [place] [phone] Jimmy Swann MD [facility] [place] [address] 01/24/2024 11:00 AM EST Office Visit Pain [place] [phone] Regulo Wang PA [facility] [place] [address] 01/24/2024 2:45 PM EST Appointment Mammography at [place] [phone] 01/24/2024 3:45 PM EST Office Visit General Surgery at [place] [phone] Caitlyn Hirsch MD [facility] [place] [address] 03/20/2024 9:00 AM EST Office Visit Hematology and Oncology at [place] [phone] Ericka Forrest, [facility] DR HEMATOLOGY [place] [address] 07/29/2024 2:00 PM EDT Office Visit Radiation Oncology at [address] [phone] Kasie Marte MD [facility] [place] [address] documented as of this encounter Visit Diagnoses Diagnosis Malignant neoplasm of upper-inner quadrant of left breast in female, estrogen receptor positive documented in this encounter Care Teams Miner Helper Relationship Specialty Start Date End Date Haylee Baptiste MD [address] [place] [address] PCP - General 01/21/10 documented as of this encounter
--- OUTSIDE RECORDS SUMMARY | 2023-12-15 12:35 | XMS_ITS | Encounter Summary ---
Author Organization [facility] Address [facility] [place] [address] Care Team Providers Care Dietary Manager Name Role Phone Haylee Baptiste MD Primary Care Provider [phone] Encounter Details Date Type Department Care Team (Latest Contact Info) Description 09/26/2023 Travel Social History Tobacco Use Types Packs/Day [...] doctor or pharmacy? Never 08/01/2023 [facility] Utilities Answer Date Recorded In the past [...] any time in the past 12 m [facility], were you homeless or living in a chcf (including now)? No 08/01/2023 IPV Inpatient Questions [...] TH Visit (TeleHealth) Hematology [place] [address] Kati Burnette MD [facility] HEMATOLOGY [place] [address] 01/24/2024 9:30 AM EST Appointment XRay at [address] [place] [phone] Jimmy Swann MD [facility] [place] [address] 01/24/2024 11:00 AM EST Office Visit [place] [address] Regulo Wang PA [facility] [place] [address] 01/24/2024 2:45 PM EST Appointment [place] [address] 01/24/2024 3:45 PM EST Office Visit [place] [address] Caitlyn Hirsch MD [facility] [place] [address] 03/20/2024 9:00 AM EST Office Visit Hematology [place] [address] Ericka Forrest [facility] DR [place] [address] 07/29/2024 2:00 PM EDT Office Visit Radiation Oncology at [address] [phone] Kasie Marte MD [facility] [place] [address] documented as of this encounter Visit Diagnoses Not on filedocumented in this encounter Care Teams Dietary Manager Relationship Specialty Start Date End Date Haylee Baptiste MD [address] [place] [address] PCP - General 01/21/10 documented as of this encounter
--- OUTSIDE RECORDS SUMMARY | 2023-12-15 12:35 | XMS_ITS | Encounter Summary ---
Author Organization [facility] Address [facility] [place] [address] Care Team Providers Care Aircraft Restorer Name Role Phone Haylee Baptiste MD Primary Care Provider [phone] Encounter Details Date Type Department Care Team (Latest Contact Info) Description 10/19/2023 Travel Social History Tobacco Use Types Packs/Day [...] from your doctor or pharmacy? Never 08/01/2023 [facility] Utilities Answer Date Recorded In the [...] any time in the past 12 m [facility], were you homeless or living in a snf (including now)? No 08/01/2023 IPV Inpatient Questions [...] TH Visit (TeleHealth) [place] [address] Kati Burnette MD [facility] H[place]AT[place]Y [place] [address] 01/24/2024 9:30 AM EST Appointment XRay at [address] [place] [phone] Jimmy Swann MD [facility] [place] [address] 01/24/2024 11:00 AM EST Office Visit [place] [address] Regulo Wang PA [facility] [place] [address] 01/24/2024 2:45 PM EST [place] [address] 01/24/2024 3:45 PM EST Office [place] [address] Caitlyn Hirsch MD [facility] [place] [address] 03/20/2024 9:00 AM EST Office Visit Hematology [place] [address] Ericka Forrest [facility] DR [place] [address] 07/29/2024 2:00 PM EDT Office Visit Radiation Oncology at [address] [phone] Kasie Marte MD [facility] [place] [address] documented as of this encounter Visit Diagnoses Not on filedocumented in this encounter Care Teams Aircraft Restorer Relationship Specialty Start Date End Date Haylee Baptiste MD [address] [place] [address] PCP - General 01/21/10 documented as of this encounter
--- OUTSIDE RECORDS SUMMARY | 2023-12-15 12:35 | XMS_ITS | Encounter Summary ---
Author Organization [facility] Address [facility] [place] [address] Care Team Providers Care Advanced Practice Nurse Name Role Phone Haylee Baptiste MD Primary Care Provider [phone] Encounter Details Date Type Department Care Team (Latest Contact Info) Description 10/23/2023 Travel Social History Tobacco Use Types Packs/Day [...] from your doctor or pharmacy? Never 08/01/2023 [facility] Utilities Answer Date Recorded In the past [...] time in the past 12 m [facility], were you homeless or [...] TH Visit (TeleHealth) Hematology [place] [address] Kati Burnette MD [facility] [place] [address] 01/24/2024 9:30 AM EST Appointment XRay at [address] [place] [address] Jimmy Swann MD [facility] [place] [address] 01/24/2024 11:00 AM EST Office Visit Pain [place] [address] Regulo Wang PA [facility] [place] [address] 01/24/2024 2:45 PM EST [place] [address] 01/24/2024 3:45 PM EST Office [place] [address] Caitlyn Hirsch MD [facility] [place] [address] 03/20/2024 9:00 AM EST Office Visit [place]ematology [place] [address] Ericka Forrest [facility] DR HEMATOLOGY [place] [address] 07/29/2024 2:00 PM EDT Office Visit Radiation Oncology at [address] [phone] Kasie Marte MD [facility] [place] [address] documented as of this encounter Visit Diagnoses Not on filedocumented in this encounter Care Teams Advanced Practice Nurse Relationship Specialty Start Date End Date Haylee Baptiste MD [address] [place] [address] PCP - General 01/21/10 documented as of this encounter
--- OUTSIDE RECORDS SUMMARY | 2023-12-15 12:35 | XMS_ITS | Encounter Summary ---
Author Organization [facility] Address [facility] [place] [address] Care Team Providers Care Bottom Bleacher Name Role Phone Haylee Baptiste MD Primary Care Provider [phone] Encounter Details Date Type Department Care Team (Late st Contact Info) Description 09/14/2023 Orders Only Radiation Oncology at [address] [phone] Kasie Mrate MD [facility] [place] [address] Malignant neoplasm of upper-inner quadrant of left [...] Never 08/01/2023 [facility] Utilities Answer Date Recorded In the past 12 months has e [employer], gas, oil, or water [employer] threatened to shut off services in your [...] any time in the past 12 m [facility], were you homeless or living in [...] Visit (TeleHealth) Hematology [place] [address] Kati Burnette MD [facility] HEMATOLOGY [place] [address] 01/24/2024 9:30 AM EST Appointment XRay at [address] [place] [phone] Jimmy Swann MD [facility] [place] [address] 01/24/2024 11:00 AM EST Office Visit [place] [address] Regulo Wang PA [facility] [place] [address] 01/24/2024 2:45 PM EST [place] [address] 01/24/2024 3:45 PM EST Office [place] [address] Caitlyn Hirsch MD [facility] [place] [address] 03/20/2024 9:00 AM EST Office Visit Hematology and Oncology at [place] [phone] Ericka Forrest, [facility] DR HEMATOLOGY [place] [address] 07/29/2024 2:00 PM EDT Office Visit Radiation Oncology at [address] [phone] Kasie Marte MD [facility] [place] [address] Scheduled Orders Name Type Priority Associated Diagnoses Orde r Schedule CBC (with Diff) Lab Routine Malignant neoplasm of upper-inner quadrant of left breast in female, estrogen receptor positive Expected: 09/14/2023 (Approximate), Expires: 09/13/2024 documented as of this encounter Visit Diagnoses Diagnosis Malignant neoplasm of upper-inner quadrant of left breast in female, estrogen receptor positive documented in this encounter Care Teams Bottom Bleacher Relationship Specialty Start Date End Date Haylee Baptiste MD [address] [place] [address] PCP - General 01/21/10 documented as of this encounter
--- OUTSIDE RECORDS SUMMARY | 2023-12-15 12:35 | XMS_ITS | Encounter Summary ---
Author Organization [facility] Address [facility] [place] [address] Care Team Providers Care Echo Technologist Name Role Phone Haylee Baptiste MD Primary Care Provider [phone] Reason for Visit * Reason Comments Simulation * Consultation (Routine) - Closed Specialty Diagnoses / Procedures Referred By Mike jalloh Referred To Contact Radiation Oncology Diagnoses Malignant neoplasm of upper-inner quadrant of left breast in female, estrogen receptor positive Procedures Simulation for Radiation Therapy Planning Kasie Marte MD [facility] [place] [address] [facility] Rad Onc Office [address] [place] [phone] Referral ID Status Reason Start Date Expiration Date V isits Requested Visits Authorized [id number] Closed Consult, Test & Treat 07/31/2023 07/30/2024 21 21 Encounter Details Date Type Department Care Team (Latest Contact Info) Description 10/03/2023 11:00 AM EDT Ancillary Appointment [place] [address] Kasie Marte MD [facility] [place] [address] Malignant neoplasm of upper-inner quadrant of left [...] your doctor or pharmacy? Never 08/01/2023 [facility] Utilities Answer Date Recorded In the [...] any time in the past 12 m [facility], were you homeless or living [...] Sign Reading Time Taken Comments Blood Pressure 124/67 10/03/2023 10:57 AM EDT Pulse 77 10/03/2023 10:57 AM EDT Temperature 36.1 ??C (97 ??F) 10/03/2023 10:57 AM EDT Respiratory Rate 18 10/03/2023 10:57 AM EDT Oxygen Saturation 99% 10/03/2023 10:57 AM EDT Inhaled Oxygen Concentration - - Weight - - Height - - Body Mass Index - - documented in this encounter Patient Instructions * Patient Instructions* Wade Cox RN - 10/03/2023 11:00 AM EDT General instructions for Radiation therapy Radiation Oncology Team Radiation Oncologist -The doctor who will direct all aspects of your radiation treatments Nurse Practitioner - They assist your doctor in treating your side effects and with follow up appointments. Registered Nurse - They assist you in learning about your radiation treatments and things you can do to help manage the side effects. Human Resources Intern - They take the doctors radiation prescription and customize it into doses (or days of treatments) specific for you. Physicist - They make sure all the machines are operating correctly and double check calculations for your treatment. Radiation Technologists - They operate the machines which deliver your radiation. You see them daily and they schedule your treatments. Simulation CT/ Planning Session- Your first step after deciding to start radiation treatments is done on a special CT scanner in radiation oncology. The images obtained are used to plan your treatments. This may be scheduled the same day you meet your doctor or in a separate visit. This usually takes between 30 minutes to one hour. You may need an IV for contrast. If so our nurse will let you know that day along with any other special instructions. During this visit we may yuniel your skin with a tiny ???tattoos?? , take pictures or make special molds or masks to help us place you in the exact treatment position every day. After this session it takes up to two weeks for your plan to be developed and checked by your doctor, the dosimetrists and the physicist. General precautions- DO NOT USE heating pads, hot water bottles, hot poultices, heat lamps, heat in any form, or ice packs to the area of your body being treated. It is common to start feeling fatigue after a few weeks of being treated. You can help minimize this by getting regular exercise or walking and getting plenty of rest. In general a well balanced diet is recommended. The mine captain and nurse will inform you of any special diet requirements. Avoid shaving the treatment area with a razor. If you must shave use an electric razor. Our Contact numbers Section of Radiation Oncology Our normal business hours are: Monday - Monday: 8:00 AM to 5:00 PM [facility]: [facility]: If you have questions about your radiation appointments please ask to speak to one of our secretarystaff. If you have questions for a nurse/doctor about radiation treatments, radiation side effects or you are not feeling well it is best to call early in the day. This allows a nurse to return your call by5 PM the same day. If you call after 4 PM, a nurse will return your call by 5 PM the following day unless it is emergent. If you experience any of the following you need to seek emergency care immediately by calling 911 1. Sudden and unexpected breathing difficulty without any exertion 2. Sudden onset of chest pain 3. Sudden onset of severe pain or uncontrolled pain 4. Sudden onset of severe weakness and/or unable to ambulate 5. Sudden new onset of a seizure 6. Fall resulting in injury A Radiation Oncology doctor is in home sales consultant after our normal hours and on weekends. To call for urgent medical issues from radiation treatments that can not wait until normal businesshours: Call for either location and have the cutting and printing machine operator page the Radiation Oncologist in home sales consultant. Information for Patients receiving radiation therapy to the Breast Approximately two weeks after your first treatment, you may begin to experience side effects causedby the radiation. These effects may continue throughout the treatment period and not start improving until 1-2 weeks after treatment is completed. Your doctor will tell you which side effects you aremost likely to experience, when you will notice them and how long they might last. It is important to follow the appropriate instructions to minimize your discomfort. Skin Care Wash skin in the treatment field with lukewarm water and mild or moisturizing, unscented soap daily. Blot skin dry with a soft towel. Do not apply any ointment, salve, deodorant, perfume, cologne, cosmetic or self- remedy to the treatment area while you are undergoing radiation and for 1-2 weeks following treatment. An all natural deodorant with no aluminum can be used if necessary. Moisturizing cream will be provided for you. This may be used in the treatment area once daily beginning on your first treatment day. Do not apply 2 hours before your radiation treatments. As dryness/redness develop you can use this more often. Do not rub or scratch the skin in the treatment field. This includes shaving unless you use an electric razor. If your skin becomes dry or itchy, tell your nurse or doctor. If necessary, your doctor may order a medication specifically for this problem. Do not use hot water bottles, heating lights, electric heating pads, or hot packs to the treatment area. Keep treated areas out of the sun throughout the treatment period. Be careful of sun exposure to the treatment field for one year following treatment. Please use SPF> 30 to all exposed areas of skin and limit sun exposure. Avoid tight fitting clothes. Examine your skin in the treatment area daily and watch for changes. If you cannot reach the whole treatment field ask a family member to look at it and apply cream as needed. Be careful to keep the area under your breast clean and dry as this area can get irritated first. You will meet with your nurse and doctor weekly. They will check your skin and help you with any side effects you are having. Please ask to see the nurse if you have concerns in between these days. During the last weeks of treatment you may notice some peeling of skin and/or a moist reaction. Be sure to let us know if this happens so we can provide you with further skin care instructions.. Continue to stay active, walk daily, eat healthy foods and drink several glasses of water each day. Fatigue You may notice that you feel unusually tired towards the end of treatment. This is not unusual. We recommend that you pace your activities and plan for rest periods to avoid becoming over-tired. Feel free to direct any questions or concerns you may have related to your treatment to your nurse or doctor. [facility] Radiation Oncology Our normal business hours are: Monday - Monday 8 AM to 5 PM [place], [place] For emergent situations after hours please call for either location and ask for the Radiation Oncologist in home sales consultant. documented in this encounter Progress Notes * Bela Goodrich MD - 10/03/2023 11:00 AM EDT 68 y.o. female w/ recent dx breast ca, L, IDC w/lobular features, gr 2, ER+NV+, Her2-, s/p lumpectomy & SNB, pT1c(m) pN0. Patient enrolled on clinical trial BR and randomized on 09/25/23 to RT and HT. Here for sim. S: Doing well; patient denies changes since last visit. Sim: Custom vaclok w/breast bd immobilization; wire on L breast lumpectomy scar & flat bbs around L breast perimeter; CTs through chest angled free breathing & with deep inspiration breath hold (DIBH); 3D xrt planned. She tolerated sim well, w/o problem. Tx Plan: 3D xrt, on protocol. Start xrt 1-2 wks. Bela Goodrich MD PGY3 [facility] Radiation Oncology I have seen the patient in person and reviewed the resident's above history and I agree with the details as written. The assessment and plan were formulated in discussion with me and I agree with them as documented. Pertinent History: Nallely is a 68 y/o f w/breast ca, L, IDC w/lobular features, gr 2, ER+NV+, Her2-, s/p lumpectomy & SNB, pT1c(m) pN0. Enrolled on BR007 & randomized to xrt & hormonal tx. S: No c/o. Pertinent Exam: L breast well healed. Major issues addressed: Ready for Ctsim. Plan: Ctsim today. Breast bd immobilization; wire on lumpectomy scar & flat bbs on L breast perimeter; CT through chest free breathing & then with deep inspiration breath hold (DIBH); 3D xrt planned. Start xrt by 10/11/23/ per protocol. documented in this encounter Plan of Treatment Upcoming Encounters Date Type Department Care Team (Late st Contact Info) Description 01/09/2024 2:20 PM EST TH Visit (TeleHealth) Hematology [place] [phone] Kati Burnette MD [facility] DR HEMAT[place] [address] 01/24/2024 9:30 AM EST Appointment XRay at [address] [place] [phone] Jimmy Swann MD [facility] [place] [place] [address] 01/24/2024 11:00 AM EST Office Visit Pain and Spine Center at [place] [phone] Regulo Wang PA [facility] [place] [address] 01/24/2024 2:45 PM EST Appointment Mammography at [place] [phone] 01/24/2024 3:45 PM EST Office Visit General Surgery at [place] [phone] Caitlyn Hirsch MD [facility] [place] [place] [address] 03/20/2024 9:00 AM EST Office Visit Hematology [place] [address] Ericka Forrest, [facility] [place] [address] 07/29/2024 2:00 PM EDT Office Visit Radiation Oncology at [address] [phone] Kasie Marte MD [facility] [place] [address] documented as of this encounter Visit Diagnoses Diagnosis Malignant neoplasm of upper-inner quadrant of left breast in female, estrogen receptor positive documented in this encounter Care Teams Echo Technologist Relationship Specialty Start Date End Date Haylee Baptiste MD [address] [place] [address] PCP - General 01/21/10 documented as of this encounter
--- OUTSIDE RECORDS SUMMARY | 2023-12-15 12:35 | XMS_ITS | Encounter Summary ---
Author Organization [facility] Address [facility] [place] [address] Care Team Providers Care Mortgage Processing Clerk Name Role Phone Haylee Baptiste MD Primary Care Provider Encounter Details Date Type Department Care Team (Late st Contact Info) Description 09/13/2023 Notes Only Radiation Oncology at [address] [phone] Miryam Salazar, JAY Social History Tobacco Use Types Packs/Day Years [...] the past 12 months has th e [employer], gas, oil, or water [employer] threatened to shut off services in your [...] were you homeless or living in a residential (including now)? No 08/01/2023 [facility] IPV Inpatient [...] Progress Notes * Miryam Salazar RN - 09/13/2023 10:56 AM EDT Clinical Research Nurse Note [place], [place] Documentation of Informed Consent to Participate in Clinical Trial Study Number: [id number] Study title: A Phase III Clinical Trial Evaluating DE-escalation of Breast RAdiation (ALEJO) for Conservative Treatment of Stage I, Hormone Sensitive, HER2-Negative, Oncotype Recurrence Score [less than or equal to] 18 Breast Cancer. Patient was seen in private room , and was offered the opportunity to participate in the study BR007. The protocol was reviewed with patient including description of study purpose, potential risks, side effects and uncertain benefits, voluntary nature of participation, and requirements of participation. Financial considerations were discussed per protocol. Specifically, there is no financial compensation provided for participation. Discussed confidentiality of patient???s private health information as specified in consent form. Patient was informed that she may discontinue study involvement at any time; informed that declining to participate or discontinuing study treatment will not compromise her access to treatment options or care at this institution. She was given the written consent form to read and review. She also has reviewed the document that was sent to her via [facility] by research RN. Patient states she was given adequate time to review all information, and to ask questions and review concerns, all of which were answered to his/her satisfaction. Patient verbalized understanding of this protocol and what is meant by randomization described in the trial. She consented for treatment on study BR007. Consent protocol version 11/25/22 form (IRB approval date [id number]) was signed and dated by patient and this author. Written informed consent was obtained prior to any study procedures being conducted. A copy of the signed consent form was given to patient. Original signed IC form was sent to JACQUES Chandler via [employer] and also Emailed to her. Patient was provided a copy of this author business card and instructed to call clinic or provider with any questions or concerns regarding the research study. Plan: Next step is to confirm eligibility, She will then be registered & randomized into the study. This research nurse will reach out to her if there are any eligibility concerns and with the randomization results. Patient agreed with this plan and verbalized understanding of these instructions. documented in this encounter Plan of Treatment Upcoming Encounters Date Type Department Care Team (Late st Contact Info) Description 01/09/2024 2:20 PM EST TH Visit (TeleHealth) Hematology [place] [address] Kati Burnette MD [facility] HEMATOLOGY [place] [address] 01/24/2024 9:30 AM EST Appointment XRay at [address] [place] [phone] Jimmy Swann MD [facility] [place] [address] 01/24/2024 11:00 AM EST Office Visit Pain and Spine Center at [place] [address] Regulo Wang PA [facility] [place] [address] 01/24/2024 2:45 PM EST Appointment Mammography at [place] [address] 01/24/2024 3:45 PM EST Office Visit General Surgery at [place] [address] Caitlyn Hirsch MD [facility] [place] [address] 03/20/2024 9:00 AM EST Office Visit Hematology and Oncology at [place] [address] Eircka Forrest, [facility] [place] DR HEMATOLOGY [place] [address] 07/29/2024 2:00 PM EDT Office Visit Radiation Oncology at [address] [phone] Kasie Marte MD [facility] DR [place] [address] documented as of this encounter Visit Diagnoses Not on filedocumented in this encounter Care Teams Mortgage Processing Clerk Relationship Specialty Start Date End Date Haylee Baptiste MD [address] [place] [address] PCP - General 01/21/10 documented as of this encounter
--- OUTSIDE RECORDS SUMMARY | 2023-12-15 12:35 | XMS_ITS | Encounter Summary ---
Author Organization [facility] Address [facility] [place] [address] Care Team Providers Care Legal Administrative Secretary Name Role Phone Haylee Baptiste MD Primary Care Provider [phone] Encounter Details Date Type Department Care Team (Latest Contact Info) Description 10/05/2023 Travel Social History Tobacco Use Types Packs/Day [...] from your doctor or pharmacy? Never 08/01/2023 [facility] Utilities Answer Date Recorded In [...] any time in the past 12 m [facility], were you homeless or living in a senior care (including now)? No 08/01/2023 IPV Inpatient Questions [...] TH Visit (TeleHealth) Hematology [place] [address] Kati Burnette MD [facility] HEMATOLOG[place] [address] 01/24/2024 9:30 AM EST Appointment XRay at [address] [place] [phone] Jimmy Swann MD [facility] [place] [address] 01/24/2024 11:00 AM EST Office Visit Pain and [place] [address] Regulo Wang PA [facility] [place] [address] 01/24/2024 2:45 PM EST [place] [address] 01/24/2024 3:45 PM EST Office [place] [address] Caitlyn Hirsch MD [facility] [place] [address] 03/20/2024 9:00 AM EST Office Visit [place]ology [place] [address] Ericka Forrest [facility] DR HEMATOLOGY [place] [address] 07/29/2024 2:00 PM EDT Office Visit Radiation Oncology at [address] [phone] Kasie Marte MD [facility] [place] [address] documented as of this encounter Visit Diagnoses Not on filedocumented in this encounter Care Teams Legal Administrative Secretary Relationship Specialty Start Date End Date Haylee Baptiste MD [address] [place] [address] PCP - General 01/21/10 documented as of this encounter
--- OUTSIDE RECORDS SUMMARY | 2023-12-15 12:35 | XMS_ITS | Encounter Summary ---
Author Organization [facility] Address [facility] [place] [address] Care Team Providers Care Laborer Shaft [place]inking Name Role Phone Haylee Baptiste MD Primary Care Provider [phone] Encounter Details Date Type Department Care Team (Latest Contact Info) Description 10/27/2023 Travel Social History Tobacco Use Types Packs/Day [...] from your doctor or pharmacy? Never 08/01/2023 [facility] Utilities Answer Date Recorded In [...] time in the past 12 m [facility], were you homeless or living [...] Visit (TeleHealth) Hematology [place] [address] Kati Burnette MD [facility] HEMATOLOGY [place] [address] 01/24/2024 9:30 AM EST Appointment XRay at [address] [place] [phone] Jimmy Swann MD [facility] [place] [address] 01/24/2024 11:00 AM EST Office Visit Pain [place] [address] Regulo Wang PA [facility] [place] [address] 01/24/2024 2:45 PM EST [place] [address] 01/24/2024 3:45 PM EST Office [place] [address] Caitlyn Hirsch MD [facility] [place] [address] 03/20/2024 9:00 AM EST Office Visit [place]ematology [place] [address] Ericka Forrest [facility] DR HEMATOLOGY [place] [address] 07/29/2024 2:00 PM EDT Office Visit Radiation Oncology at [address] [phone] Kasie Marte MD [facility] [place] [address] documented as of this encounter Visit Diagnoses Not on filedocumented in this encounter Care Teams Laborer [place] Relationship Specialty Start Date End Date Haylee Baptiste MD [address] [place] [address] PCP - General 01/21/10 documented as of this encounter
--- OUTSIDE RECORDS SUMMARY | 2023-12-15 12:35 | XMS_ITS | Encounter Summary ---
Author Organization [facility] Address [facility] [place] [address] Care Team Providers Care Junior Manufacturing Engineer Name Role Phone Haylee Baptiste MD Primary Care Provider [phone] Encounter Details Date Type Department Care Team (Latest Contact Info) Description 08/29/2023 Travel Social History Tobacco Use Types Packs/Day [...] from your doctor or pharmacy? Never 08/01/2023 [facility] Utilities Answer Date Recorded In [...] in a usp (including now)? No 08/01/2023 IPV Inpatient Questions [...] TH Visit (TeleHealth) Hematology [place] [address] Kati Burnette MD [facility] [place] [address] 01/24/2024 9:30 AM EST Appointment XRay at [address] [place] [address] Jimmy Swann MD [facility] [place] [address] 01/24/2024 11:00 AM EST Office Visit [place] [address] Regulo Wang PA [facility] [place] [address] 01/24/2024 2:45 PM EST [place] [address] 01/24/2024 3:45 PM EST Office [place] [address] Caitlyn Hirsch MD [facility] [place] [address] 03/20/2024 9:00 AM EST Office Visit Hematology [place] [address] Ericka Forrest [facility] DR HEMATOLOGY [place] [address] 07/29/2024 2:00 PM EDT Office Visit Radiation Oncology at [address] [phone] Kasie Marte MD [facility] [place] [address] documented as of this encounter Visit Diagnoses Not on filedocumented in this encounter Care Teams Junior Manufacturing Engineer Relationship Specialty Start Date End Date Haylee Baptiste MD [address] [place] [address] PCP - General 01/21/10 documented as of this encounter
--- OUTSIDE RECORDS SUMMARY | 2023-12-15 12:35 | XMS_ITS | Encounter Summary ---
Author Organization [facility] Address [facility] [place] [address] Care Team Providers Care Nutritional Chemist Name Role Phone Haylee Baptiste MD Primary Care Provider Encounter Details Date Type Department Care Team (Latest Contact Info) Description 10/18/2023 Travel Social History Tobacco Use Types Packs/Day [...] from your doctor or pharmacy? Never 08/01/2023 [facility] Utilities Answer Date Recorded In the [...] any time in the past 12 m [facility], were you homeless or [...] TH Visit (TeleHealth) Hematology [place] [address] Kati Burnette MD [facility] HEMATOLOGY [place] [address] 01/24/2024 9:30 AM EST Appointment XRay at [address] [place] [phone] Jimmy Swann MD [facility] [place] [address] 01/24/2024 11:00 AM EST Office Visit [place] [address] Regulo Wang PA [facility] [place] [address] 01/24/2024 2:45 PM EST Appointment [place] [address] 01/24/2024 3:45 PM EST Office [place] [address] Caitlyn Hirsch MD [facility] [place] [address] 03/20/2024 9:00 AM EST Office Visit Hematology [place] [address] Ericka Forrest [facility] [place] [place] [address] 07/29/2024 2:00 PM EDT Office Visit Radiation Oncology at [address] [phone] Kasie Marte MD [facility] [place] [address] documented as of this encounter Visit Diagnoses Not on filedocumented in this encounter Care Teams Nutritional Chemist Relationship Specialty Start Date End Date Haylee Baptiste MD [address] [place] [address] PCP - General 01/21/10 documented as of this encounter
--- OUTSIDE RECORDS SUMMARY | 2023-12-15 12:35 | XMS_ITS | Encounter Summary ---
Author Organization [facility] Address [facility] [place] [address] Care Team Providers Care Master Police Detective Name Role Phone Haylee Baptiste MD Primary Care Provider [phone] Encounter Details Date Type Department Care Team (Late st Contact Info) Description 10/03/2023 Notes Only Radiation Oncology at [address] [phone] Kati Lua, HAND FORMER HELPER OFFICE OF CARE MANAGEMENT Social History Tobacco Use Types Packs/Day Years [...] from your doctor or pharmacy? Never 08/01/2023 [facility] Utilities Answer Date Recorded In the past 12 months has e electric, gas, oil, or water company [...] were you homeless or living in a assisted (including now)? No 08/01/2023 IPV Inpatient Questions [...] of this encounter Progress Notes * Kati Lua, HAND FORMER HELPER - 10/03/2023 8:57 AM EDT Reason for Referral: Brief assessment of social and emotional needs. Met with Nallely prior to her sim today to introduce myself and role of social media specialist to assess/address barriers to getting to andthrough treatments; address support needs and connect with community services and resources as needed. Family/Social Supports: Nallely identified her as her primary support. Her daughter is alsoanother support and she lives nearby. Her 2 sons live out of state but keep tabs on her. Living Situation/Daily Activities/Transportation: Nallely manages her daily chores and activities. She is expecting 5 weeks of RT treatments. She does not expect any issues with transportation. 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 She has MVPand Medicare for insurance. She did not identify any financial or insurance concerns. Advance Directives: Nallely has a copy of an advance directive in her medical record. Utilization of Community Resources: None at this time. Adjustment to Illness/Mental Health Concerns: Nallely indicated she is coping as best she can. She is frustrated that her treatments have not yet started as all started in May. She has support fromher family and friends. Her place of employment is supportive too. Offered support. Identified Needs: Nallely did not identify any specific needs at this time. Referrals: None at this time. Social Work Interventions: Brief assessment Supportive Counseling Plan: Informed Nallely of HAND FORMER HELPER availability and contact information. Will follow to assess/address psychosocial needs. COLT Recinos, BONSAI TENDER, OSW-C Computational Mathematician [facility] documented in this encounter Plan of Treatment Upcoming Encounters Date Type Department Care Team (Late st Contact Info) Description 01/09/2024 2:20 PM EST TH Visit (TeleHealth) [place]ematology [place] [address] Kati Burnette MD [facility] DR HEMATOLOGY [place] [address] 01/24/2024 9:30 AM EST Appointment XRay at [address] [place] [phone] Jimmy Swann MD [facility] [place] [address] 01/24/2024 11:00 AM EST Office Visit [place] [address] Regulo Wang PA [facility] [place] [address] 01/24/2024 2:45 PM EST [place]oint[place] [phone] 01/24/2024 3:45 PM EST Office [place] [address] Caitlyn Hirsch MD [facility] [place] [address] 03/20/2024 9:00 AM EST Office Visit Hematology [place] [address] Ericka Forrest, [facility] DR HEMATOLOGY [place] [address] 07/29/2024 2:00 PM EDT Office Visit Radiation Oncology at [address] [phone] Kasie Marte MD [facility] [place] [address] documented as of this encounter Visit Diagnoses Not on filedocumented in this encounter Care Teams Master Police Detective Relationship Specialty Start Date End Date Haylee Baptiste MD [address] [place] [address] PCP - General 01/21/10 documented as of this encounter
--- OUTSIDE RECORDS SUMMARY | 2023-12-15 12:35 | XMS_ITS | Encounter Summary ---
Author Organization [facility] Address [facility] [place] [address] Care Team Providers Care Civil Lawyer Name Role Phone Haylee Baptiste MD Primary Care Provider [phone] Encounter Details Date Type Department Care Team (Latest Contact Info) Description 09/05/2023 9:00 AM EDT Ancillary Appointment Radiation Oncology at [address] [phone] Kasie Marte MD [facility] [place] [address] Malignant neoplasm of upper-inner quadrant of left [...] from your doctor or pharmacy? Never 08/01/2023 [facility] Utilities Answer Date Recorded In [...] Progress Notes * Kasie Marte MD - 09/05/2023 9:00 AM EDT Here for sim. 08/08/23 Dr. Burnette, endocrine tx if Oncotype DX <= 25. 08/09/23 Dr. Hirsch, rtc 6 mos w/mmg. 08/23/23 Oncotype DX 14. 08/31/23 Dr. Burnette, favor AI, patient interested in ALEJO trial. S: She is interested in enrolling on study evaluating xrt omission. O: A&Ox3, NAD. A: Appears eligible for ALEJO trial evaluating xrt omission. P: Research nurse will call her to discuss enrollment on ALEJO trial. Discussed w/Nallely that Ctsim not needed today & if she is randomized to xrt arm, Ctsim will be rescheduled. documented in this encounter Plan of Treatment Upcoming Encounters Date Type Department Care Team (Late st Contact Info) Description 01/09/2024 2:20 PM EST TH Visit (TeleHealth) Hematology and Oncology at [place] [phone] Kati Burnette MD [facility] DR HEMATOLOGY [place] [address] 01/24/2024 9:30 AM EST Appointment XRay [place] [address] [place] [phone] Jimmy Swann MD [facility] [place] [address] 01/24/2024 11:00 AM EST Office Visit Pain and Spine Center at [address] Regulo Wang PA [facility] [place] [address] 01/24/2024 2:45 PM EST Appointment Mammography at [place] [phone] 01/24/2024 3:45 PM EST Office Visit General Surgery at [address] Caitlyn Hirsch MD [facility] [place] [address] 03/20/2024 9:00 AM EST Office Visit Hematology and Oncology at [place] [phone] Ericka Forrest, [facility] DR [place] [address] 07/29/2024 2:00 PM EDT Office Visit Radiation Oncology at [address] [phone] Kasie Marte MD [facility] [place] [address] documented as of this encounter Visit Diagnoses Diagnosis Malignant neoplasm of upper-inner quadrant of left breast in female, estrogen receptor positive documented in this encounter Care Teams Civil Lawyer Relationship Specialty Start Date End Date Haylee Baptiste MD [address] [place] [address] PCP - General 01/21/10 documented as of this encounter
--- OUTSIDE RECORDS SUMMARY | 2023-12-15 12:35 | XMS_ITS | Encounter Summary ---
Author Organization [facility] Address [facility] [place] [address] Care Team Providers Care Cap Coverer Name Role Phone Haylee Baptiste MD Primary Care Provider [phone] Encounter Details Date Type Department Care Team (Latest Contact Info) Description 10/10/2023 Travel Social History Tobacco Use Types Packs/Day [...] from your doctor or pharmacy? Never 08/01/2023 [facility] Utilities Answer Date Recorded In the [...] any time in the past 12 m [facility], were you homeless or [...] TH Visit (TeleHealth) [place]ology [place] [address] Kati Burnette MD [facility] HEMATOLOGY [place] [address] 01/24/2024 9:30 AM EST Appointment XRay at [address] [place] [phone] Jimmy Swann MD [facility] [place] [address] 01/24/2024 11:00 AM EST Office Visit [place] [phone] Regulo Wang PA [facility] [place] [address] 01/24/2024 2:45 PM EST [place] [address] 01/24/2024 3:45 PM EST Office [place] [address] Caitlyn Hirsch MD [facility] [place] [address] 03/20/2024 9:00 AM EST Office Visit [place]ematology [place] [address] Ericka Forrest [facility] [place] [address] 07/29/2024 2:00 PM EDT Office Visit Radiation Oncology at [address] [phone] Kasie Marte MD [facility] [place] [address] documented as of this encounter Visit Diagnoses Not on filedocumented in this encounter Care Teams Cap Coverer Relationship Specialty Start Date End Date Haylee Baptiste MD [address] [place] [address] PCP - General 01/21/10 documented as of this encounter
--- OUTSIDE RECORDS SUMMARY | 2023-12-15 12:35 | XMS_ITS | Encounter Summary ---
Author Organization [facility] Address [facility] [place] [address] Care Team Providers Care Organizational Development Manager Name Role Phone Haylee Baptiste MD Primary Care Provider [phone] Encounter Details Date Type Department Care Team (Latest Contact Info) Description 10/10/2023 10:30 AM EDT TH Visit (TeleHealth) Hematology [place] [address] Kati Burnette MD [facility] DR [place] [address] Malignant neoplasm of upper-inner quadrant of left [...] from your doctor or pharmacy? Never 08/01/2023 [facility] Utilities Answer Date Recorded In the [...] time in the past 12 m [facility], were you homeless or living in [...] of this encounter Progress Notes * Kati Burnette MD - 10/10/2023 10:30 AM EDT Nallely Velazquez is a 68 y.o. 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 10/10/2023 Just started RT on ALEJO trial DXA 2022 with T=-2.0 in femur Plan is for adjuvant bisphosphonate after 3 months if ok on anastrazole. Oncotype: 14 ( 4 % distant recurrence with hormones) Favor AI but need recent dexa September 04 appt with Rad onc: interested in ALEJO trial. BREAST CANCER HISTORY: 2nd read screening MMG/US from 05/26/23 lMMG/US BIRADS 5: left breast [address] WNL 06/08/2023: MRI breasts: 11:oc: 3 cm mass with 1. [address] with cortical bulge. No other Lns and right normal 2nd look US on left: normal LN. 06/05/2023: left breast biopsy: Path: MD IDC with lobular features No LVI ER>95 LA > 95 HER 2 keenan non amplified 07/19/2023 : LLE + SLNB ( 0/2) Path: IDC with lobular features T= 1.7 cm DCIS ADH Neg margin Oncootype: 14 ( 4 % distant recurrence with hormones) ADJUVANT RT 10/2023: LEFT breast RT on ALEJO/BR007 trial ADJUVANT HORMONAL THERAPY Anastrazole pending. Anticipated start mid nov 2023 ADJUVANT BISPHOSPHONATE Pending Past Medical History: Diagnosis Date CAD (coronary [...] Left 09/27/2018 Justin De La Cruz MD [facility] INTERVENTIONL RAD MAMMO CLIP PLACEMENT LEFT Left 07/19/2023 Mammo Magseed Placement Left 07/19/2023 Dorothy Hammond MD [facility] RAD MAMMOGRAPHY MAMMO US BIOPSY LEFT Left 06/05/2023 Mammo Us Biopsy Left 06/05/2023 Dorothy Hammond MD [facility] RAD MAMMOGRAPHY PRO ANTERIOR INSTRUMENTATION 2-3 VERTEBRAL SEGMENTS Midline 01/18/2023 ANT. SPINAL INSTRUMENTATION, 2-3 VERTEBRA, SEGMENTED (WRVU 11.94) performed by Jimmy Swann MD at [facility] MAIN OR PRO ARTHRODESIS, ANT INTERBODY,DECOMPRESSION; CERVICAL BELOW C2 Midline 01/18/2023 ARTHRODESIS, ANT INTERBODY,DECOMPRESSION; CERVICAL BELOW C2 (WRVU 25) performed by Jimmy Swann MD at [facility] MAIN OR PRO BX/REMV, LYMPH NODE, DEEP AXILL Left 07/19/2023 BIOPSY OR EXCISION OF LYMPH NODE(S), OPEN, DEEP AXILLARY NODE(S) (WRVU 6.43) performed by Caitlyn Hirsch MD at [facility] OSC PRO INSERT BIOMCHN DEV INTERVERTEBRAL DSC SPC W/ARTHRD Midline 01/18/2023 INSERTION INTERBODY BIOMECH DEV TO INTERVEBRAL DISC SPACE, EA INTERSPACE (WRVU 4.25) performed by Jimmy Swann MD at [facility] MAIN OR PRO INTRAOP SENTINEL LYMPH ID W/DYE INJECTION Left 07/19/2023 INTRAOPERATIVE ID (MAPPING) SENTINEL LYMPH NODE,INCLUDES INJECTION (WRVU 2.5) performed by Caitlyn Hirsch MD at [facility] OSC PRO MASTECTOMY PARTIAL Left 07/19/2023 MASTECTOMY PARTIAL (WRVU 10.13) performed by Caitlyn Hirsch MD at [facility] OSC MEDS: ALL: Allergies Allergen Reactions [...] wants to slow down; home health in [facility] Living situation: with her Exercise: walking - [...] with a stage 1 luminal breast cancer who is s/p LLE and SLNB, and an oncotype 14. Just started breast RT on ALEJO/BROO7 trial Breast cancer: will start on anastrazole. AFTER RT Rx sent Needs teaching 2. adjuvant bisphosphonate- fosamax after 3 months stable on AI. Can do telemed for this visit. RTC 3 months with md/purchase price analyst Time spent: 40 minutes of which >50% was in discussion documented in this encounter Plan of Treatment Upcoming Encounters Date Type Department Care Team (Late st Contact Info) Description 01/09/2024 2:20 PM EST TH Visit (TeleHealth) Hematology [place] [address] Kati Burnette MD [facility] [place] [address] 01/24/2024 9:30 AM EST Appointment XRay at [address] [place] [phone] Jimmy Swann MD [facility] [place] [address] 01/24/2024 11:00 AM EST Office Visit Pain [place] [address] Regulo Wang PA [facility] [place] [address] 01/24/2024 2:45 PM EST Appointment [place] [address] 01/24/2024 3:45 PM EST Office Visit General Surgery at [address] Caitlyn Hirsch MD [facility] [place] [address] 03/20/2024 9:00 AM EST Office Visit Hematology and Oncology at [place] [phone] Ericka Forrest, [facility] DR HEMATOLOGY [place] [address] 07/29/2024 2:00 PM EDT Office Visit Radiation Oncology at [address] [phone] Kasie Marte MD [facility] [place] [address] documented as of this encounter Visit Diagnoses Diagnosis Malignant neoplasm of upper-inner quadrant of left breast in female, estrogen receptor positive documented in this encounter Care Teams Organizational Development Manager Relationship Specialty Start Date End Date Haylee Baptiste MD [address] [place] [address] PCP - General 01/21/10 documented as of this encounter
--- OUTSIDE RECORDS SUMMARY | 2023-12-15 12:35 | XMS_ITS | Encounter Summary ---
Author Organization [facility] Address [facility] [place] [address] Care Team Providers Care Corn Sheller Operator Name Role Phone Haylee Baptiste MD Primary Care Provider Encounter Details Date Type Department Care Team (Latest Contact Info) Description 10/25/2023 Travel Social History Tobacco Use Types Packs/Day [...] any time in the past 12 m [facility], were you homeless or living in a [place] health care facility (including now)? No 08/01/2023 IPV Inpatient Questions [...] TH Visit (TeleHealth) Hematology [place] [address] Kati Burnette MD [facility] H[place]ATOLOGY [place] [address] 01/24/2024 9:30 AM EST Appointment XRay at [address] [place] [phone] Jimmy Swann MD [facility] [place] [address] 01/24/2024 11:00 AM EST Office Visit Pain [place] [address] Regulo Wang PA [facility] [place] [address] 01/24/2024 2:45 PM EST Appointment [place] [address] 01/24/2024 3:45 PM EST Office [place] [address] Caitlyn Hirsch MD [facility] [place] [address] 03/20/2024 9:00 AM EST Office Visit Hematology [place] [address] Ericka Forrest [facility] [place] DR HEMAT[place] [address] 07/29/2024 2:00 PM EDT Office Visit Radiation Oncology at [address] [phone] Kasie Marte MD [facility] [place] [address] documented as of this encounter Visit Diagnoses Not on filedocumented in this encounter Care Teams Corn Sheller Operator Relationship Specialty Start Date End Date Haylee Baptiste MD [address] [place] [address] PCP - General 01/21/10 documented as of this encounter
--- OUTSIDE RECORDS SUMMARY | 2023-12-15 12:35 | XMS_ITS | Encounter Summary ---
Author Organization [facility] Address [facility] [place] [address] Care Team Providers Care Aging Room Operator Name Role Phone Haylee Baptiste MD Primary Care Provider [phone] Reason for Visit * Reason Comments On Treatment Visit Encounter Details Date Type Department Care Team (Late st Contact Info) Description 10/10/2023 8:45 AM EDT Office Visit Radiation Oncology at [address] [phone] Kasie Marte MD [facility] [place] [address] Malignant neoplasm of upper-inner quadrant of left [...] any time in the past 12 m [facility], were you homeless or living in [...] Sign Reading Time Taken Comments Blood Pressure 113/61 10/10/2023 8:45 AM EDT Pulse 81 10/10/2023 8:45 AM EDT Temperature 36.5 ??C (97.7 ??F) 10/10/2023 8:45 AM ED T Respiratory Rate 18 10/10/2023 8:45 AM EDT Oxygen Saturation 100% 10/10/2023 8:45 AM EDT Inhaled Oxygen Concentration - - Weight 73.9 kg (163 lb) 10/10/2023 8:45 AM EDT Height 157.5 cm (5' 2) 10/10/2023 8:45 AM EDT Body Mass Index 29.81 10/10/2023 8:45 AM EDT documented in this encounter Progress Notes * Kasie Marte MD - 10/10/2023 8:45 AM EDT Images from the original note were not included. DIAGNOSIS: Breast ca, L, IDC w/lobular features, gr 2, ER+NM+, Her2-, s/p lumpectomy & SNB, pT1c(m) pN0. Oncotype DX 14. Enrolled on BR007 ALEJO trial evaluating xrt omission. CURRENT TREATMENT DOSE: 2.66 Gy L breast ANTICIPATED TOTAL DOSE: 42.56 Gy L breast, 52.56 Gy lumpectomy bed Current # of xrt received: 1 L breast Anticipated total # of xrt txs: 16 L breast, 20 lumpectomy bed Evaluation of port verification films: Approved. For details, see electronic film record in RedT System. Changes in Medical Condition: None. Pain?: No. Your Medications Accurate as of October 10, 2023 9:37 AM. If you have any questions, ask [...] inhaler (HFA) Every 4 hours. Refills: 0 dulaglutide 4.5 mg/0.5 mL Pen Injector Commonly [...] 4 mg Refills: 0 Physical Exam: BP 113/61 (Patient Position: Sitting) Pulse 81 Temp 36.5 ??C (97.7 ??F) (Temporal) Resp 18 Ht 157.5 cm (5' 2) Wt 73.9 kg (163 lb) SpO2 100% BMI 29.81 kg/m?? A&Ox3, NAD. Amb stable. Imagin10/03/23 Dx'ic Rad Interp Ctsim: No suspicious lesion. Performance Status: KPS 100%. Response to xrt: As expected. Irradiation Related Symptoms: None. Treatment for Symptom Control: Remedy cream. Pain Management: Not needed. Recommendation on Continuing Course of xrt: Continue. documented in this encounter Plan of Treatment Upcoming Encounters Date Type Department Care Team (Late st Contact Info) Description 01/09/2024 2:20 PM EST TH Visit (TeleHealth) Hematology and Oncology at [place] [phone] Kati Burnette MD [facility] DR HEMATOLOGY [place] [address] 01/24/2024 9:30 AM EST Appointment XRay at [address] [place] [phone] Jimmy Swann MD [facility] [place] [address] 01/24/2024 11:00 AM EST Office Visit Pain and Spine Center at [place] [phone] Regulo Wang PA [facility] [place] [address] 01/24/2024 2:45 PM EST Appointment Mammography at [place] [phone] 01/24/2024 3:45 PM EST Office Visit General Surgery at [address] Caitlyn Hirsch MD [facility] [place] [address] 03/20/2024 9:00 AM EST Office Visit Hematology [place] [address] Ericka Forrest, [facility] DR [place] [address] 07/29/2024 2:00 PM EDT Office Visit Radiation Oncology at [address] [phone] Kasie Marte MD [facility] [place] [address] documented as of this encounter Visit Diagnoses Diagnosis Malignant neoplasm of upper-inner quadrant of left breast in female, estrogen receptor positive documented in this encounter Care Teams Aging Room Operator Relationship Specialty Start Date End Date Haylee Baptiste MD [address] [place] [address] PCP - General 01/21/10 documented as of this encounter
--- OUTSIDE RECORDS SUMMARY | 2023-12-15 12:35 | XMS_ITS | Encounter Summary ---
Author Organization [facility] Address [facility] [place] [address] Care Team Providers Care Registration Rep Name Role Phone Haylee Baptiste MD Primary Care Provider [phone] Encounter Details Date Type Department Care Team (Late st Contact Info) Description 10/05/2023 Telephone Hematology/Oncology at [address] [address] Miryam Salazar RN Social History [...] from your doctor or pharmacy? Never 08/01/2023 [facility] Utilities Answer Date Recorded In the past 12 months has th e [employer], gas, oil, or water [employer] threatened to shut off services in your [...] time in the past 12 m [facility], were you homeless or living in a detention (including now)? No 08/01/2023 [facility] IPV Inpatient [...] Telephone Encounter - Miryam Salazar RN - 10/05/2023 1:49 PM EDT Clinical Research Nurse Telephone Note [place], [place] Study Number: [id number] Study title: A Phase III Clinical Trial Evaluating DE-escalation of Breast RAdiation (AELJO) for Conservative Treatment of Stage I, Hormone Sensitive, HER2-Negative, Oncotype Recurrence Score [less than or equal to] 18 Breast Cancer. Randomized on 09/25/23 to RT and HT ----- Message from Brittaney Rob sent at 10/05/2023 10:36 AM EDT ----- Scot Witt, I talked to Nallely this morning about her SOC charges with the breast study that she is on. She was upset tat she had not started her radiation therapy yet. Will you please reach out to her and address her concerns? Thank you! Brittaney Telephone call to patient. She's now aware that her radiation will begin on October 09 next Monday. She is pleased with this. 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 I reassured her that our radiation therapist, who do the radiation scheduling, will be happy to accommodate to her work schedule as much as possible. I advised that she speak with them on her first RT day to work with her on this. She was encouraged to call the clinic with any questions or concerns. Patient verbalized understanding of these instructions and expressed appreciation for this call. documented in this encounter Plan of Treatment Upcoming Encounters Date Type Department Care Team (Late st Contact Info) Description 01/09/2024 2:20 PM EST TH Visit (TeleHealth) Hematology [place] [phone] Kati Burnette MD [facility] [address] HEMATOLOGY [place] [address] 01/24/2024 9:30 AM EST Appointment XRay at [address] [place] [phone] Jimmy Swann MD [facility] [place] [address] 01/24/2024 11:00 AM EST Office Visit Pain [place] [phone] Regulo Wang PA [facility] [place] [address] 01/24/2024 2:45 PM EST Appointment [place] [phone] 01/24/2024 3:45 PM EST Office Visit General Surgery at [place] [phone] Caitlyn Hirsch MD [facility] [place] [address] 03/20/2024 9:00 AM EST Office Visit Hematology [place] [address] Ericka Forrest, [facility] DR HEMATOLOGY [place] [address] 07/29/2024 2:00 PM EDT Office Visit Radiation Oncology at [address] [phone] Kasie Marte MD [facility] [place] [address] documented as of this encounter Visit Diagnoses Not on filedocumented in this encounter Care Teams Registration Rep Relationship Specialty Start Date End Date Haylee Baptiste MD [address] [place] [address] PCP - General 01/21/10 documented as of this encounter
--- OUTSIDE RECORDS SUMMARY | 2023-12-15 12:35 | XMS_ITS | Encounter Summary ---
Author Organization [facility] [place] [address] Care Team Providers Care Gravity Manager Name Role Phone Haylee Baptiste MD Primary Care Provider [phone] Encounter Details Date Type Department Care Team (Latest Contact Info) Description 10/14/2023 Travel Social History Tobacco Use Types Packs/Day [...] from your doctor or pharmacy? Never 08/01/2023 [facility] Utilities Answer Date Recorded In the [...] any time in the past 12 m [facility], were you homeless or living in a longterm (including now)? No 08/01/2023 IPV Inpatient Questions [...] TH Visit (TeleHealth) Hematology [place] [address] Kati Burnette MD [facility] [place] [address] 01/24/2024 9:30 AM EST Appointment XRay at [address] [place] [address] Jimmy Swann MD [facility] [place] [address] 01/24/2024 11:00 AM EST Office Visit Pain [place] [address] Regulo Wang PA [facility] [place] [address] 01/24/2024 2:45 PM EST [place] [address] 01/24/2024 3:45 PM EST Office [place] [address] Caitlyn Hirsch MD [facility] [place] [address] 03/20/2024 9:00 AM EST Office Visit [place]ematology [place] [address] Ericka Forrest [facility] [address] [place] [address] 07/29/2024 2:00 PM EDT Office Visit Radiation Oncology at [address] [phone] Kasie Marte MD [facility] [place] [address] documented as of this encounter Visit Diagnoses Not on filedocumented in this encounter Care Teams Gravity Manager Relationship Specialty Start Date End Date Haylee Baptiste MD [address] [place] [address] PCP - General 01/21/10 documented as of this encounter
--- OUTSIDE RECORDS SUMMARY | 2023-12-15 12:35 | XMS_ITS | Encounter Summary ---
Author Organization [facility] Address [facility] [place] [address] Care Team Providers Care Forge Shop Supervisor Name Role Phone Haylee Baptiste MD Primary Care Provider [phone] Encounter Details Date Type Department Care Team (Late st Contact Info) Description 09/25/2023 Telephone Hematology/Oncology at [address] [address] Rowan Yung Social History Tobacco Use Types Packs/Day Years [...] from your doctor or pharmacy? Never 08/01/2023 [facility] Utilities Answer Date Recorded In the past 12 months has e [employer], gas, oil, or water [employer] threatened to shut off services in your [...] time in the past 12 m [facility], were you homeless or living in [...] encounter Miscellaneous Notes * Telephone Encounter - Rowan Yung - 09/25/2023 1:39 PM EDT Called cell number listed and left VM for Nallely, asked that she call back to confirm that she gotmessage about her appointment for her SIM on 09/25@1200 documented in this encounter Plan of Treatment Upcoming Encounters Date Type Department Care Team (Late st Contact Info) Description 01/09/2024 2:20 PM EST TH Visit (TeleHealth) Hematology [place] [address] Kati Burnette MD [facility] DR HEMATOLOGY [place] [address] 01/24/2024 9:30 AM EST Appointment XRay [place] [address] [place] [address] Jimmy Swann MD [facility] [place] [address] 01/24/2024 11:00 AM EST Office Visit Pain and Spine Center at [place] [address] Regulo Wang PA [facility] [place] [address] 01/24/2024 2:45 PM EST Appointment Mammography at [place] [address] 01/24/2024 3:45 PM EST Office Visit General Surgery at [place] [address] Caitlyn Hirsch MD [facility] [place] [address] 03/20/2024 9:00 AM EST Office Visit Hematology and Oncology at [place] [address] Ericka Forrest, [facility] [place] [address] 07/29/2024 2:00 PM EDT Office Visit Radiation Oncology at [address] [address] Kasie Marte MD [facility] [place] [address] documented as of this encounter Visit Diagnoses Not on filedocumented in this encounter Care Teams Forge Shop Supervisor Relationship Specialty Start Date End Date Haylee Baptiste MD [address] [place] [address] PCP - General 01/21/10 documented as of this encounter
--- OUTSIDE RECORDS SUMMARY | 2023-12-15 12:35 | XMS_ITS | Encounter Summary ---
[place] [address] Care Team Providers Care Farm Agent Name Role Phone Haylee Baptiste MD Primary Care Provider [phone] Reason for Visit * Reason Onset Date Comments Prior Authorization 08/15/2023 Encounter Details Date Type Department Care Team (Late st Contact Info) Description 08/15/2023 Telephone [place] [phone] Nica King Prior Authorization Social History Tobacco Use Types Packs/Day Years [...] from your doctor or pharmacy? Never 08/01/2023 [facility] Utilities Answer Date Recorded In the past 12 months has [email or web address] electric, gas, oil, or water company threatened [...] in a custodial (including now)? No 08/01/2023 [facility] IPV Inpatient [...] encounter Miscellaneous Notes * Telephone Encounter - Nica King - 08/18/2023 10:49 AM EDT PA Outcome: PA Approval Medication Prior Authorization Approval Approved: Trulicity 4.5mg Start Date: 08/17/23 End Date: 02/16/24 Case/Reference #: [id number] Approval Letter will be scanned into media once received. * Telephone Encounter - Nica King - 08/16/2023 8:09 AM EDT Images from the original note were not included. Submitted to [facility] directly Rodriguez: [id number] * Telephone Encounter - Nica King - 08/15/2023 8:25 AM EDT Previous Medications Tried Medication: Glipizide Medication: Metformin * Telephone Encounter - Nica King - 08/15/2023 8:11 AM EDT Medication Prior Authorization [employer] Medication name/dose/directions: Trulicity 4.5MG/0.5ML - inject 0.5mL once weekly Rationale for request: Type II DM (E11.65) Health plan[facility] Rodriguez: [id number] Authorizing automotive sales representative name: Brianna Sent to health plan on: 08/15/23 documented in this encounter Plan of Treatment Upcoming Encounters Date Type Department Care Team (Late st Contact Info) Description 01/09/2024 2:20 PM EST TH Visit (TeleHealth) Hematology [place] [address] Kati Burnette MD [facility] DR HEMATOLOGY [place] [address] 01/24/2024 9:30 AM EST Appointment XRay at [address] [place] [address] Jimmy Swann MD [facility] [place] [address] 01/24/2024 11:00 AM EST Office Visit [place] [phone] Regulo Wang PA [facility] [place] [address] 01/24/2024 2:45 PM EST Appointment [place] [address] 01/24/2024 3:45 PM EST Office [place] [phone] Caitlyn Hirsch MD [facility] [place] [address] 03/20/2024 9:00 AM EST Office Visit Hematology [place] [phone] Ericka Forrest, [facility] DR HEMATOLOGY [place] [address] 07/29/2024 2:00 PM EDT Office Visit Radiation Oncology at [address] [phone] Kasie Marte MD [facility] DR [place] [address] documented as of this encounter Visit Diagnoses Not on filedocumented in this encounter Care Teams Farm Agent Relationship Specialty Start Date End Date Haylee Baptiste MD [address] [place] [address] PCP - General 01/21/10 documented as of this encounter
--- OUTSIDE RECORDS SUMMARY | 2023-12-15 12:35 | XMS_ITS | Encounter Summary ---
Author Organization [facility] [place] [address] Care Team Providers Care Metal Refiner Name Role Phone Haylee Baptiste MD Primary Care Provider [phone] Encounter Details Date Type Department Care Team (Late st Contact Info) Description 10/05/2023 Notes [place] [phone] Brittaney Caballero Social History Tobacco Use Types [...] doctor or pharmacy? Never 08/01/2023 [facility] Utilities Answer Date Recorded In the past 12 months has e [employer], gas, oil, or water [employer] threatened to shut off services in your [...] time in the past [address] [facility], were you homeless or living in a assisted (including now)? No 08/01/2023 [facility] IPV Inpatient [...] encounter Progress Notes * Brittaney Caballero - 10/05/2023 10:39 AM Nadia: Financial Counselor I am working on [id number] contact log. Patient was contacted today. I explained to the patient that on this study, she will have standard of care charges that will occur regardless of whether she is participating in the clinical trial or not. Patient understood. I went over his SOC charges that are associated with her protocol: Physical Exam, Supportive Medication,Venipuncture, Labs, Test, Radiation, Breast Imaging, MRI, CT, PET and Bone scan. After explaining the calendar to the patient, she understood it. The patient was informed that she has met her deductible and [id number] expenses for the calendar year, and her services should be payable at 100% as long as they are covered/approved by her insurance. The patient was also informed that if she is having financial hardship and day-to-day living expenses, she should let me know and we will get her help through the financial assistance program and/or other resources that are available and that she qualifies for. Patient declined financial assistance at this time. The patient was informed at any time to contact me with any questions, concerns, or help she might need. The patient was upset and concerned that she has not started her treatment yet. I have reached out to Miryam Gomez RN to reach out to the patient and address her Medical concern. I will check back on the patient in a month. documented in this encounter Plan of Treatment Upcoming Encounters Date Type Department Care Team (Late st Contact Info) Description 01/09/2024 2:20 PM EST TH Visit (TeleHealth) Hematology and Oncology at [place] [phone] Kati Burnette MD [facility] DR HEMATOLOGY [place] [address] 01/24/2024 9:30 AM EST Appointment XRay at [address] [place] [phone] Jimmy Swann MD [facility] [place] [address] 01/24/2024 11:00 AM EST Office Visit Pain and Spine Center at [place] [phone] Regulo Wang PA [facility] [place] [address] 01/24/2024 2:45 PM EST Appointment Mammography at [place] [phone] 01/24/2024 3:45 PM EST Office Visit General Surgery at [place] [phone] Caitlyn Hirsch MD [facility] [place] [address] 03/20/2024 9:00 AM EST Office Visit Hematology [place] [address] Ericka Forrest, [facility] DR HEMATOLOG[place] [address] 07/29/2024 2:00 PM EDT Office Visit Radiation Oncology at [address] [address] Kasie Marte MD [facility] [place] [address] documented as of this encounter Visit Diagnoses Not on filedocumented in this encounter Care Teams Metal Refiner Relationship Specialty Start Date End Date Haylee Baptiste MD [address] [place] [address] PCP - General 01/21/10 documented as of this encounter
--- OUTSIDE RECORDS SUMMARY | 2023-12-15 12:36 | XMS_ITS | Encounter Summary ---
Author [place] [address] Care Team Providers Care Retort Cooler Name Role Phone Haylee Baptiste MD Primary Care Provider [phone] Reason for Visit * Auth/Cert (Routine) Specialty Diagnoses / Procedures Referred By Mike jalloh Referred To Contact Diagnoses Breast cancer of upper-inner quadrant of left female breast LEFT BREAST CANCER Procedures PRO MASTECTOMY PARTIAL PRO BX/REMV, LYMPH NODE, DEEP AXILL PRO INTRAOP SENTINEL LYMPH ID W/DYE INJECTION MASTECTOMY PARTIAL (WRVU 10.13) BIOPSY OR EXCISION OF LYMPH NODE(S), OPEN, DEEP AXILLARY NODE(S) (WRVU 6.43) INTRAOPERATIVE ID (MAPPING) SENTINEL LYMPH NODE,INCLUDES INJECTION (WRVU 2.5) MODIFIER WITH NEEDLE LOC., LESION #1 MODIFIER SENTINEL NODE EXCISION Caitlyn Hirsch MD [facility] [place] [address] [facility] Referral ID Status Reason Start Date Expiration Date Visits Re quested Visits Authorized [id number] 1 1 Encounter Details Date Type Department Care Team (Latest Contact Info) Description 07/19/2023 9:22 AM EDT - 07/19/2023 1:45 PM EDT Hospital Encounter Out[place] [id number] Caitlyn Hirsch MD [facility] [place] [place] [address] Discharge Disposition: Home Social History Tobacco Use Types Packs/Day Years Used Date Smoking Tobacco: Never Smokeless Tobacco: Never Alcohol Use Standard Drinks/Week Comments Never 0 (1 standard drink = 0.6 oz pur e alcohol) Overall Financial Resource Strain (CARDIA) Answe r Date Recorded How hard is it for you to pa y for the very basics like food, housing, medical care, and heating? Not very hard 06/09/2023 PRAPARE - Transportation Answer Date Re corded In the past 12 months, has l ack of transportation kept you from medical appointments or from getting medications? No 04/2023 In the past 12 months, has l ack of transportation kept you from meetings, work, or from getting things needed for daily living? No 06/09/2023 DH IPV Inpatient Questions Answer Date Recorded [...] Sign Reading Time Taken Comments Blood Pressure 123/67 07/19/2023 1:30 PM EDT Pulse 75 07/19/2023 1:30 PM EDT Temperature 36.5 ??C (97.7 ??F) 07/19/2023 1:02 PM ED T Respiratory Rate 16 07/19/2023 1:30 PM EDT Oxygen Saturation 97% 07/19/2023 1:30 PM EDT Inhaled Oxygen Concentration - - Weight - - Height - - Body Mass Index - - documented in this encounter Discharge Instructions * Discharge Instructions* Lamont Guerrero RN - 07/19/2023 9:25 AM EDT General Anesthesia Discharge Instructions Go home and rest. You may be sleepy for several hours. Take it easy as sudden position changes may cause nausea and/or dizziness. Use caution on stairs. Do not smoke if you are alone. Follow a light to regular diet as tolerated today. If nausea occurs, start with clear liquids, and progress slowly to a regular diet. Do not drive, operate machinery, drink alcoholic beverages or make any legal decisions after havinggeneral anesthesia. The medications given change your reaction time and alter your judgement. IV site -- slight redness is normal, you can use warm compresses. If tenderness and redness increases or foul drainage occurs, please contact your M.D. Patients who have had endotracheal tubes/LMA (tubes used by the anesthesia staff to ensure a safe airway during your operation) may have a sore throat. This is normal and cold liquids or soothing lozenges will help ease this discomfort. Narcotic pain medications can cause constipation, please ask the surgeons office what they recommend for prevention of this. Some non-pharmaceutical means of constipation prevention include increasing intake of fluids, eating more fruits and vegetables as well as fruit juices. If you are uncomfortable and/or unable to urinate within 8 hours of discharge and it is before 5 pm, call your physician. If it is after 5pm go to the closest emergency room or call the hospital dry pan operator at [phone] and ask for physician tobacco prevention health educator covering for your physician. Questions or problems after 5pm or on a weekend: Call the [facility] dry pan operator at and ask for the physician tobacco prevention health educator covering for your doctor. At 9:40 am you received 975 mg of acetaminophen- Your next dose should not be taken before 6 hours have passed or as advised by your provider. Next dose not before- 3:40 pm You should not take more than a total of 3000 mg of acetaminophen in a 24 hour period. * Patient Instructions* Caitlyn Hirsch MD - 07/19/2023 12:36 PM EDT Discharge Instructions: Wound Care: Your incision is covered with a purple/clear skin adhesive called Exofin. Do not scratch, rub, or pick at the adhesive. Do not wash the incision directly, if you do the film may become loose before the wound is fully healed. The Exofin will fall off on its own within approximately 2 weeks. Do not apply any ointments to the area until after the Exofin has fallen off. Place intermittent ice pack to the breast for 3 days. Wear supportive bra continuously for at least 3 days. Activity: You may shower 24 hours after surgery. Let water run over the incision(s). Do not scrub incision(s)and pat dry. No submerging the breast wound in a bath, pool, or hot tub for 1 month. Activity as tolerated - if it hurts, don't do it Walking is encouraged. No driving the day of surgery Pain Medication: Take Tylenol (acetaminophen) 1000mg 3 or 4 times a day (every 6-8 hours) for the first 3 days aftersurgery for you pain relief. You should NOT consume more than 4000mg (4 grams) of Tylenol in 24 hour period due to risk of liver toxicity. You may start taking over the counter Ibuprofen three times daily with food, alternating this with the Tylenol doses the day after surgery. Diet: Resume usual diet Follow up care: Come to your post-operative appointment as scheduled, usually 2 weeks after surgery. If not yet scheduled, please call Dr. Hirsch's office to schedule a post-operative appointment. Your pathology will take approximately 7-[address] Hirsch will call you with thoseresults once they area available and will review them again at your follow up appointment. Call the surgery clinic at or send a [employer] message for any post-operative concerns, including: excessive bleeding, drainage at the operative site, fevers, chills, increased pain thatis not relieved by pain medications, persistent nausea or vomiting, shortness of breath. After hours and on weekends, please call the paging dry pan operator at [phone] and ask for the General Surgery resident tobacco prevention health educator. The clinic and [employer] messages are not covered after hours or on weekends. documented in this encounter Medications at Time of Discharge Medication Sig Dispensed Refills Start Date End Date acetaminophen (Tylenol) 500 mg tablet Take 2 tablets by mouth every 6 hours as needed for Pain. 07/19/2023 ibuprofen (Advil) 600 mg tablet Take 1 tablet by mouth every 6 hours as needed for Pain. 07/19/2023 dulaglutide (Trulicity) 4.5 mg/0.5 mL Pen InjectorIndications: type 2 diabetes mellitus Inject 0.5 mLs subcutaneously once a week. Indications: type 2 diabetes mellitus 6 mL 3 01/25/2023 senna-docusate (Pericolace) 8.6-50 mg Tablet Take 2 tablets by mouth 2 times daily as needed for Constipation. 01/19/2023 atorvastatin (Lipitor) 80 mg tablet Take 80 mg by mouth nightly. benzonatate (Tessalon Perles) 100 mg capsule Take 100 mg by mouth 3 times daily as needed. 09/11/2020 EPINEPHrine 0.3 mg/0.3 mL Auto-Injector Inject 0.3 mg into the muscle once as needed. 09/11/2020 FreeStyle Alonzo 14 Day Sensor Kit 01/02/2023 fluticasone propion-salmeteroL (ADVAIR HFA) 230-21 mcg/actuation HFA Aerosol Inhaler Inhale 1 puff into the lungs 2 times daily. 03/15/2022 fluticasone propionate (Flonase) 50 mcg/actuation [place], Suspension 1 spray by Each Nare route as needed. 01/05/2015 gabapentin (Neurontin) 100 mg capsule Take 100 mg by mouth nightly as needed. 11/30/2021 montelukast (Singulair) 10 mg tablet Take 10 mg by mouth daily. 06/17/2022 ondansetron (Zofran) 4 mg tablet Take 4 mg by mouth as needed. 03/06/2018 triamcinolone (ARISTOCORT) 0.5 % Cream Apply topically 3 times daily as needed. 03/06/2018 insulin regular human U-500 (HumuLIN R U-500, Conc, Kwikpen) 500 unit/mL (3 mL) Insulin Pen Take 10 units with breakfast, 5 units at lunch and 10 units at bedtime 09/01/2021 metoprolol succinate XL (Toprol-XL) 50 mg Tablet Sustained Release 24 hr Take 1 tablet by mouth daily. 30 tablet 12 09/01/2021 albuteroL 90 mcg/actuation HFA Aerosol Inhaler Every 4 hours. olmesartan (BENICAR) 20 mg Tablet Take 20 mg by mouth daily. pantoprazole EC (Protonix) 20 mg Tablet, Delayed Release (E.C.) Take 20 mg by mouth daily. nitroGLYcerin (Nitrostat) 0.4 mg Tablet, Sublingual Place 1 tablet under the tongue every 5 minutes as needed for Chest pain. 25 tablet 09/01/2021 polyethylene glycoL (Miralax) 17 gram oral powder packet Take 17 g by mouth 2 times daily as needed (constipation). 01/19/2023 07/31/2023 Levemir FlexPen 100 unit/mL (3 mL) Insulin Pen Inject 10 Units subcutaneously nightly. *taking 10 units at night* 12/22/2022 07/31/2023 isosorbide mononitrate (Imdur) 60 mg ER 24 hr tablet Take 60 mg by mouth daily. 07/31/2023 prednisoLONE acetate (Pred-Forte) 1 % Drops, Suspension Place 1 drop into the right eye as needed. 10/26/2022 07/31/2023 documented as of this encounter Progress Notes * Melba Fry RN - 07/19/2023 1:45 PM EDT Took over care of pt, resting comfortably in bed. VSS on RA. Minimal complaints of pain. Ice pack in place. Surgical bra in place. Incisions, CDI. No nausea, tolerating oral intake. IV removed. Discharge instructions and medications reviewed with patient and escort. All questions answered and written copy sent home with patient. Patient ambulated to car for discharge accompanied by [facility] staff member. documented in this encounter H&P Notes * Caitlyn Hirsch MD - 07/19/2023 9:35 AM EDT BREAST SURGICAL ONCOLOGY H&P Patient Name: Nallely Velazquez Patient Age: 68 y.o. Birthdate: 1955 Admit date: 07/19/2023 Attending Physician: Caitlyn Hirsch MD HISTORY OF PRESENT ILLNESS: Nallely 68 y.o. female presents today for a comprehensive breast clinicconsultation regarding newly diagnosed left breast cancer. On 05/25 bilateral screening mammogram showed an irregular spiculated mass in the left breast along there 12:00 radian 9cm FN along with a sub centimeter retroareolar mass that has been stable for 12 yrs, benign. Right breast showed no suspicious findings. On 05/29 left diagnostic mammogram showed persistence of a the 1.3cm spiculated mass at 12:00 middle depth. Left breast ultrasound the same day showed a 1.8cm irregular mass with indistinct margins at 11:00 7cm FN. 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 Katy clip was placed and was noted to be at the biopsy site on post-procedure mammogram. Limited evaluation of the left axilla showed one morphologically normal lymph node. On 06/07 breast MRI showed the known malignancy is a 3.0 x 3.0 x 1.3 cm irregular mass with spiculated margins in the upper inner quadrant at 11:00, 7 cm from the nipple. Signal void artifact consistent with the biopsy clip is associated with the mass. There are no additional lesions in the left breast. Right breast showed no suspicious findings. In the left axilla there is a solitary 1.8 cm prominent level 1 left axillary lymph node with a focal cortical bulge. There is no evidence of internal mammary or right axillary adenopathy. No significant abnormalities are seen in the chest wall or skin. She denies other breast symptoms of masses, skin changes, nipple discharge, or adenopathy. She alsodenies any new constitutional symptoms of fatigue, weight loss, fever, or headache. No abdominal pain, deep joint or bone pain or blurry vision. History of left breast benign cyst excision when she was in her 20s. Of note, in August 2021 was admitted with NSTEMI, LAD stent was placed and shew as treated with ASA/Plavix, now just on ASA for the past year. T2DM managed by endocrinology at , last visit April 2023. Last HbA1c 9.6 (01/2023). Patient has allergy to iodinated skin prep (says chloraprep is okay) and was very slow to wake up after her gallbladder surgery. Past Medical History Past Medical History: Diagnosis Date CAD (coronary artery disease) Cervical radiculopathy at C7 CKD (chronic kidney disease) stage 3, GFR 30-59 ml/min Diabetes mellitus GERD (gastroesophageal reflux disease) Hiatal hernia HLD (hyperlipidemia) Hypertension Past Surgical History Past Surgical History: Procedure Laterality Date IR NEPHROSTOMY TUBE PLACEMENT PERCUTANEOUS LEFT 09/27/2018 IR Nephrostomy Tube Placement Percutaneous Left 09/27/2018 Justin De La Cruz MD [facility] INTERVENTIONL RAD MAMMO US BIOPSY LEFT Left 06/05/2023 Mammo Us Biopsy Left 06/05/2023 Dorothy Hammond MD [facility] RAD MAMMOGRAPHY PRO ANTERIOR INSTRUMENTATION 2-3 VERTEBRAL SEGMENTS Midline 01/18/2023 ANT. SPINAL INSTRUMENTATION, 2-3 VERTEBRA, SEGMENTED (WRVU 11.94) performed by Jimmy Swann MD at [facility] MAIN OR PRO ARTHRODESIS, ANT INTERBODY,DECOMPRESSION; CERVICAL BELOW C2 Midline 01/18/2023 ARTHRODESIS, ANT INTERBODY,DECOMPRESSION; CERVICAL BELOW C2 (WRVU 25) performed by Jimmy Swann MD at [facility] MAIN OR PRO INSERT BIOMCHN DEV INTERVERTEBRAL DSC SPC W/ARTHRD Midline 01/18/2023 INSERTION INTERBODY BIOMECH DEV TO INTERVEBRAL DISC SPACE, EA INTERSPACE (WRVU 4.25) performed by Jimmy Swann MD at [facility] MAIN OR Allergies Allergies Allergen Reactions Amlodipine Other Reaction(s): cough [...] skin reaction Lisinopril Other Reaction(s): cough, other MEDICATIONS: EPINEPHrine, albuteroL, atorvastatin, benzonatate, dulaglutide, flash glucose sensor, fluticasone propionate, fluticasone propionate-salmeteroL, gabapentin, insulin detemir U-100, insulin regular human U-500, isosorbide mononitrate, losartan, metoprolol succinate XL, montelukast, nitroGLYcerin, olmesartan, ondansetron, pantoprazole EC, polyethylene glycoL, prednisoLONE acetate, senna- docusate, and triamcinolone Family History Family History Problem Relation Age of Onset Heart Disease Mother Diabetes Mother Diabetes Father Cancer Neg Hx Breast Cancer Neg Hx Ovarian Cancer Neg Hx Social History Social History Tobacco Use Smoking status: Never Smokeless tobacco: Never Vaping Use Vaping Use: Never used Substance Use Topics Alcohol use: No Drug use: No 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 Vitals Vitals: 06/14/23 0825 BP: (!) 121/108 Patient Position: Sitting Pulse: 88 Resp: 16 Temp: 36.4 ??C (97.5 ??F) TempSrc: Temporal SpO2: 100% Weight: 73.4 kg (161 lb 13.1 oz) Height: 157.5 cm (5' 2.01) PHYSICAL EXAM: General: well appearing, alert and oriented x 3. No acute distress. Head and neck: Normocephalic, atraumatic. Sclerae are anicteric. Neck is soft and supple. No masses. No cervical or clavicular adenopathy. Chest/Lungs: CTAB Heart: RRR, no m/r/g Abdomen: Soft, nontender, and nondistended. No palpable masses. No organomegaly detected. Extremities: No cyanosis, clubbing, or edema. Breast exam: A multi-positional bilateral breast exam was performed. There is no skin dimpling or nipple retraction. Right breast: no palpable dominant masses, no nipple discharge, no skin changes. Right axilla: no palpable adenopathy. Left breast: palpable density in the left silghtly upper inner breast measuring 3cm without discrete edges, no nipple discharge, no skin changes. Left axilla: no palpable adenopathy. IMAGING: I personally reviewed the following radiology image(s) and report(s) in detail as part of today's consultation -- READ OF OUTSIDE IMAGING -- DATES and TYPE OF EXAM: Diagnostic left breast mammogram and ultrasound 05/30/2023 VIEWS: Left SCC, SMLO, and SMLO COMPARISONS: Screening mammogram 05/26/2023, 12/23/2020 BREAST DENSITY: There are scattered areas of fibroglandular density. FINDINGS: RIGHT breast: Normal and unchanged Mammogram: 13 mm spiculated mass within the left breast 12:00 radian, middle depth 9 cm from the nipple. Additionally there is a subcentimeter retroareolar mass, stable for at least 12 years, benign. Ultrasound: Left breast 11:00 radian 7 cm from the nipple demonstrates an irregular, indistinct, hypoechoic mass with an echogenic rind maximally measuring 18 mm, consistent with the mammographic mass Left breast 1:30 rad 6 cm from the nipple demonstrates a oval, circumscribed, isoechoic mass measuring 7 mm in maximal diameter, benign. Provided images of the axilla demonstrate a single morphologically normal node measuring 1.8 cm in long axis. IMPRESSION Highly suspicious LEFT breast mass, ultrasound-guided biopsy recommended FINAL ASSESSMENT: BI-RADS Category 5: Highly Suggestive of Malignancy - Appropriate Action Should Be Taken ----- Left breast ultrasound guided biopsy 06/05/23: PROCEDURAL DETAILS: Informed consent was obtained. Sterile technique was deployed. Approximately 10 cc used for local anesthesia. A small skin incision was made and a biopsy was performed under ultrasound guidance. 3 core biopsy specimens were obtained using a Achieve 14g device. Biopsy specimens were not radiographed. N/A Satisfactory sampling was obtained. A PCS Edventures 14G marker clip was placed. Cranio-caudal and lateral digital mammography performed to determine biopsy marker placement, which was shown to be 0 cm from the biopsy site in N/A direction. COMPLICATIONS: None. PROCEDURAL ATTESTATION: Resident: none IMAGING DIFFERENTIAL DIAGNOSIS: IDC, ILC PATHOLOGIC DIAGNOSIS: IDC,DCIS IMPRESSION Concordant result RECOMMENDATION: Surgical consultation preceeded by breast MRI as discussed with the patient and conveyed to the Comprehensive Breast Program. Breast MRI 06/08/23: FINDINGS: Background Enhancement Pattern (first post Dotarem image): Moderate (50-75% breast) Amount of Fibroglandular Tissue: The breast tissue is heterogeneously dense, which may obscure small masses. LEFT Breast: The known malignancy is a 3.0 x 3.0 x 1.3 cm irregular mass with spiculated margins inthe upper inner quadrant at 11:00, 7 cm from the ipple. Signal void artifact consistent with the biopsy clip is associated with the mass. There are no additional lesions in the left breast. There is moderate parenchymal enhancement with multiple scatteredT2 hyperintense lesions consistent with fibrocystic change; the pattern is similar bilaterally. No a dditional discrete enhancing mass. Specifics of Left lesion 1 #: 3.0 x 3.0 x 1.3 cm mass at 1100 O'Clock 7 cm from the nipple by MRI. Mass/post surgical change: Shape: Irregular Margins: Not circumscribed - Spiculated Enhancement: Heterogeneous Kinetics: Initial upslope: Medium Delayed phase: Progressive RIGHT Breast: There are no morphologic abnormalities or areas of abnormal parenchymal enhancement. There is moderate parenchymal enhancement pattern with multiple scattered T2 hyperintense lesions consistent with fibrocystic change; the pattern is similar bilaterally. No discrete enhancing mass. Lymph Node Basins/Other: Left axilla: There is a solitary 1.8 cm prominent level 1 left axillary lymph node with a focal cortical bulge. There is no evidence of internal mammary or right axillary adenopathy. No significant abnormalities are seen in the chest wall or skin. IMPRESSION Left Breast: Known left breast malignancy is a 3.0 cm irregular mass in the upper inner left breastat 11:00, 7 cm from the nipple. The biopsy marker clip is at the mass. No additional lesions in theleft breast. Single prominent left axillary lymph node. Right Breast: No MRI evidence of malignancy. No evidence of right axillary adenopathy. RECOMMENDATION: 1. Definitive treatment. 2. Left axillary ultrasound and possible biopsy may be considered. FINAL ASSESSMENT: LEFT BREAST: BI-RADS Category 6: Known Biopsy-Proven Malignancy RIGHT BREAST: BI-RADS Category 1: Negative PATHOLOGY: I personally reviewed the following pathology report(s) in detail as part of today's consultation A- Left breast, core needle biopsy: - Invasive ductal carcinoma with focal lobular features (linear growth pattern), intermediate grade (modified SBR score = 6), measuring at least 13 mm. - Lymphovascular invasion not identified. - Ductal carcinoma in-situ, focal, intermediate grade, solid pattern without comedonecrosis. - Microcalcifications associated with invasive carcinoma. Estrogen Receptor (ER) immunoreactivity: positive Cancer cells with immunostaining: >95% Stain intensity: strong Progesterone Receptor (AK) immunoreactivity: positive Cancer cells with immunostaining: >95% Stain intensity: strong RESULT: NEGATIVE FOR HER2/JEROMY AMPLIFICATION ASSESSMENT: Nallely is a 68 y.o. woman with left IDC, G2, ER/AK+ HER2- (3cm) with solitary enlarged left axillary lymph node (1.8cm with focal cortical thickness, but normal on subsequent axillary ultrasound whois here for left seed localized partial mastectomy and left SLNB. No changes in her health since her last clinic visit. The procedure along with the risks, benefits, and alternatives were reviewed and all questions were answered. Informed consent was obtained. Patient is ready for the OR. Caitlyn Hirsch MD 07/19/2023 documented in this encounter Miscellaneous Notes * Op Note - Caitlyn Hirsch MD - 07/19/2023 10:31 AM EDT [facility] [place] Operative Note Patient Name: Nallely Velazquez : [id number] MR#: [id number] Case Date: 07/19/2023 Surgeon: Surgeons and Role: * Caitlyn Hirsch MD - Primary * Tomasz Porras MD - Resident - Assisting Preoperative diagnosis: LEFT BREAST CANCER Postoperative diagnosis: LEFT BREAST CANCER Procedure(s) (LRB): MASTECTOMY PARTIAL (WRVU 10.13) (Left) BIOPSY OR EXCISION OF LYMPH NODE(S), OPEN, DEEP AXILLARY NODE(S) (WRVU 6.43) (Left) INTRAOPERATIVE ID (MAPPING) SENTINEL LYMPH NODE,INCLUDES INJECTION (WRVU 2.5) (Left) MODIFIER MAGSEED (Left) MODIFIER SENTINEL NODE EXCISION (Left) MODIFIER WITH NEEDLE LOC., LESION #1 (Left) Anesthesia: General Estimated Blood Loss: 2 mL Specimens removed during surgery: Order Name Source Comment Collection Info Order Time SPECIMEN TO PATHOLOGY FRESH LEFT BREAST CANCER Left Partial Mastectomy excision 07/19/2023 11:23 AM Time specimen removed from patient: 11:12 AM Number of tissue samples (in container) 1 SPECIMEN TO PATHOLOGY LEFT BREAST CANCER #1 Left Breast new anterior/superior margin excision 07/19/2023 12:04 PM Time specimen removed from patient: 11:40 AM Number of tissue samples (in container) 1 SPECIMEN TO PATHOLOGY LEFT BREAST CANCER #2 Left breast new medial margin excision 07/19/2023 12:04 PM Time specimen removed from patient: 11:40 AM Number of tissue samples (in container) 1 SPECIMEN TO PATHOLOGY 2563 LEFT BREAST CANCER #3 Left axillary sentinal node #1 excision 07/19/2023 12:04 PM Time specimen removed from patient: 11:41 AM Number of tissue samples (in container) 1 SPECIMEN TO PATHOLOGY 1519 Background 3 LEFT BREAST CANCER #4 Left axillary sentinal node #2 excision 07/19/2023 12:04 PM Time specimen removed from patient: 11:57 AM Number of tissue samples (in container) 1 SPECIMEN TO PATHOLOGY LEFT BREAST CANCER Left breast new deep margin excision 07/19/2023 12:08 PM Time specimen removed from patient: 12:07 PM Number of tissue samples (in container) 1 Drains: * No LDAs found * Surgical Closure: Primary Closure - skin incision is completely closed without any wires, jasmine, drains or other devices Disposition: awakened from anesthesia, extubated and taken to the recovery room in a stable condition, having suffered no apparent untoward event. Condition: doing well without problems (Please see the Surgical Encounter Summary for any Implant and Specimen details pertinent to this patient.) SENTINEL NODE BIOPSY BREAST CANCER SYNOPTIC NOTE: Operation performed with curative intent: Yes Tracer(s) used to identify sentinel nodes in the upfront surgery (non neoadjuvant) setting (select all that apply): Dye and Radioactive tracer Tracer(s) used to identify sentinel nodes in the neoadjuvant setting (select all that apply): N/A All nodes (colored or non-colored) present at the end of a dye-filled lymphatic channel were removed: Yes All significantly radioactive nodes were removed: Yes All palpably suspicious nodes were removed: N/A Biopsy-proven positive nodes marked with clips prior to chemotherapy were identified and removed: N/A HPI/Surgical Indications: Nallely Velazquez is a 68 yo woman who came to the Breast [facility] for evaluation of left breast cancer in the upper inner breast. Decision was made to proceed with partial mastectomy with Magseed localization and left sentinel lymph node biopsy. The patient understands that additional surgery may be required pending final pathology. The procedure along with the risks, benefits, and alternatives were reviewed and all questions were answered. Informed consent was obtained and patient agreed to proceed. Description: On the operative day, the patient went to mammography for Magseed localization of the area of concern in the left breast. The patient was then brought to the preoperative holding area, where consent and side of surgery were reconfirmed. The patient was then brought to the operating room and placed supine on the operating room table. General anesthesia was induced and LMA was placed. 2ml of Lymphazurin blue was then injected in the patient's left breast, periareolar to aid in sentinel lymph nodebiopsy. The breast was then massaged for several minutes. Patient's left breast and axilla were then prepped and draped in the usual sterile fashion. A time out was performed where the correct patient, procedure, site, preoperative antibiotics, and DVT prophylaxis were confirmed and all present agreed to proceed. Prior to making an incision, I studied the accompanying Magseed localization films to plan the surgical incision appropriately. Local anesthetic was used at the planned incision site at the superior areolar border. A #15 blade was then used to make skin incision which was carried down sharply through to the subcutaneous tissue. Bovie electrocautery was then used to dissect a flap circumferentially about the planned lumpectomy. Magseed probe was then used to identify the localized tissue. Tissue surrounding the localized mass was divided circumferentially with electrocautery forming the partial mastectomy specimen. The specimen was inked for orientation and sent for specimen radiograph. Specimen radiograph confirmed successful excision of area of concern with the clip, magseed, and area of concern within the specimenas reviewed with radiology intraoperatively. An additional anterior/superior, medial and deep margin (including pectoralis fascia) were taken with sharp electrocautery and was inked on the new marginside. Each margin was sent as separate specimen. Attention was then turned to the left axilla for the sentinel lymph node biopsy. A #15 blade was used to make a small curvilinear incision in the axillary hair crease which was carried down through skin to subcutaneous tissue. Cautery was then used to identify and divide the clavipectoral fascia. The navigator probe was used to examine the axilla, and an area of high uptake was noted in deep level 1 of the axilla. This lymph node was dissected and excised from surrounding axillary tissue and had an ex vivo count of 2563. This was passed off the field as sentinel lymph node #1. The navigator probe was again used to examine the axilla, and a second area of high uptake was noted in level 1. This lymph node was excised from surrounding axillary tissue, and it had an ex-vivo count of 1519. This was passed off the field as sentinel lymph node #2. Navigator probe was again used to examine the axilla, and there were no other areas of high uptake. Background count was taken which was 3. I thendirectly visually inspected and palpated the axilla and did not identify any palpably suspicious orblue nodes. The sentinel nodes were sent to Pathology. The axillary wound was then irrigated and hemostasis was achieved with bovie electrocautery. Additional local anesthetic was infiltrated into the skin and subcutaneous layers of the wound. Interrupted 3-0 vicryl suture was used to reapproximate deep dermis, and running 4-0 Monocryl subcuticular suture to reapproximate the skin. Exofin was applied to the incision after closure. The breast wound inspected and hemostasis was achieved using Bovie electrocautery. Additional localanesthetic was instilled into the skin and subcutaneous layers of the wound. After hemostasis was confirmed, the cavity was marked with hemoclips. The incision was then closed in layers using interrupted 3-0 vicryl suture to reapproximate deeper breast tissue over the defect, reshaping the breast, interrupted 3-0 vicryl suture to reapproximate deep dermis, and running 4-0 monocryl subcuticular suture to reapproximate the skin. Exofin was applied to the incision after closure. Fluffs and surgical bra were placed. The patient tolerated the procedure well and without complication. She was awaken from anesthesia, extubated, and taken back to recovery in stable condition having suffered no adverse events throughout the entirety of the procedure. All counts were correct at the end of the procedure. Pursuant to fe deral Medicare billing regulations, I attest that I was personally present and scrubbed for all thekey elements of this procedure. Surgical Infection Prevention Bundle Used? N/A Attestation: Case Date: 07/19/2023 I was present and I participated during the entire procedure (does not need to include opening and closing). Caitlyn Hirsch MD 07/19/2023 documented in this encounter Plan of Treatment Upcoming Encounters Date Type Department Care Team (Late st Contact Info) Description 01/09/2024 2:20 PM EST TH Visit (TeleHealth) Hematology and Oncology at [place] [phone] Kati Burnette MD [facility] DR HEMATOLOGY [place] [address] 01/24/2024 9:30 AM EST Appointment XRay at [address] [place] [address] Jimmy Swann MD [facility] [place] [address] 01/24/2024 11:00 AM EST Office Visit Pain and Spine Center at [place] [address] Regulo Wang PA [facility] [place] [address] 01/24/2024 2:45 PM EST Appointment Mammography at [place] [address] 01/24/2024 3:45 PM EST Office Visit General Surgery at [place] [address] Caitlyn Hirsch MD [facility] [place] [address] 03/20/2024 9:00 AM EST Office Visit Hematology and Oncology at [place] [address] Ericka Forrest, [facility] [address] HEMATOLOGY [place] [address] 07/29/2024 2:00 PM EDT Office Visit Radiation Oncology at [address] [phone] Kasie Marte MD [facility] [place] [address] documented as of this encounter Procedures Procedure Name Priority Date/Time Associated Diagnosis Comments SPECIMEN TO PATHOLOGY Routine 07/19/2023 1:25 PM EDT SPECIMEN TO PATHOLOGY Routine 07/19/2023 12:08 PM EDT SPECIMEN TO PATHOLOGY Routine 07/19/2023 12:04 PM EDT SPECIMEN TO PATHOLOGY Routine 07/19/2023 12:04 PM EDT SPECIMEN TO PATHOLOGY Routine 07/19/2023 12:04 PM EDT SPECIMEN TO PATHOLOGY Routine 07/19/2023 12:04 PM EDT SURGICAL PATHOLOGY REPORT Routine 07/19/2023 11:23 AM EDT SPECIMEN TO PATHOLOGY Routine 07/19/2023 11:23 AM EDT MODIFIER WITH NEEDLE LOC., LESION #1 Yes 07/19/2023 10:03 AM EDT LEFT BREAST CANCER MODIFIER SENTINEL NODE EXCISION Yes 07/19/2023 10:03 AM EDT LEFT BREAST CANCER MODIFIER MAGSEED Yes 07/19/2023 10:0 3 AM EDT LEFT BREAST CANCER Intraop Hastings Lymph Id W/Dye Injection (65973) Yes 07/19/2023 10:03 AM EDT LEFT BREAST CANCER Bx/Remv, Lymph Node, Deep Axill (38666) Yes 07/19/2023 10:03 AM EDT LEFT BREAST CANCER Mastectomy Partial (41000) Yes 07/19/2023 10:03 AM EDT LEFT BREAST CANCER POCT GLUCOSE Routine 07/19/2023 9:52 AM EDT documented in this encounter Results * Specimen to Pathology (07/19/2023 1:25 PM EDT) AP Specimen 07/19/2023 1:25 PM EDT 07/19/2023 1:25 PM EDT [facility] LABORATORY - 07/19/2023 1:25 PM EDT Specimen requisition ordered. ??Separate Pathology report to follow Caitlyn Hirsch MD PATHOLOGY/CYTOLOG Y ORDERABLES Performing Organization Address [facility]/[place] [address] * Specimen to Pathology (07/19/2023 12:08 PM EDT) AP Specimen 07/19/2023 12:0 8 PM EDT 07/19/2023 12:08 PM EDT Narrative [facility]ORY - 07/19/2023 12:08 PM EDT Specimen requisition ordered. ??Separate Pathology report to follow Caitlyn Hirsch MD PATHOLOGY/CYTOLOG Y ORDERABLES Performing Organization Address [facility] [place] [place] [address] * Specimen to Pathology (07/19/2023 12:04 PM EDT) AP Specimen 07/19/2023 12:0 4 PM EDT 07/19/2023 12:04 PM EDT Narrative [facility] - 07/19/2023 12:04 PM EDT Specimen requisition ordered. ??Separate Pathology report to follow Caitlyn Hirsch MD PATHOLOGY/CYTOLOG Y ORDERABLES Performing Organization Address [facility]/[place] [address] * Specimen to Pathology (07/19/2023 12:04 PM EDT) AP Specimen 07/19/2023 12:0 4 PM EDT 07/19/2023 12:04 PM EDT Narrative [facility] - 07/19/2023 12:04 PM EDT Specimen requisition ordered. ??Separate Pathology report to follow Caitlyn Hirsch MD PATHOLOGY/CYTOLOG Y ORDERABLES Performing Organization Address [facility]/ZIP Co de Phone Number [facility] [place] [address] * Specimen to Pathology (07/19/2023 12:04 PM EDT) AP Specimen 07/19/2023 12:0 4 PM EDT 07/19/2023 12:04 PM EDT Narrative [facility] - 07/19/2023 12:04 PM EDT Specimen requisition ordered. ??Separate Pathology report to follow Caitlyn Hirsch MD PATHOLOGY/CYTOLOG Y ORDERABLES Performing Organization Address [facility] [place] [place] [address] * Specimen to Pathology (07/19/2023 12:04 PM EDT) AP Specimen 07/19/2023 12:0 4 PM EDT 07/19/2023 12:04 PM EDT Narrative [facility] - 07/19/2023 12:04 PM EDT Specimen requisition ordered. ??Separate Pathology report to follow Caitlyn Hirsch MD PATHOLOGY/CYTOLOG Y ORDERABLES Performing Organization Address [facility] [place] [address] * Surgical Pathology Report (07/19/2023 11:23 AM EDT) Final Diagnosis ? Location: [facility] The signing pathologist has (i) examined the relevant preparation(s) for the specimen(s) and (ii) rendered or confirmed the diagnosis(es). . ? Addendum ADDENDUM DISCUSSION SPECIAL TEST PERFORMED: Test: ??Oncotype DX [facility] Case: ??[id number], block A-13 Performing Lab: ??[facility] Performing Lab Case: ??[id number] Reported by: ??Jhon Dominguez MD Date reported: ??08/23/2023 For the full text of the [facility] report please refer to the Chart Review Media tab in the electronic health record (eDH). _ Electronically signed by: ?Pardeep Galvez MD Verified: ??08/30/2023 9:57 ?? Pathologist Performed at: ??-[facility] Dept. of Pathology, [place] [address] Bulk Filler: Linda Ramirez MD, FCAP, ??CLIA Certificate: [id number] ?Surgical Pathology DIAGNOSIS A - Left breast, partial mastectomy: - Invasive ductal carcinoma with lobular features (see Synoptic Report and Discussion) - Ductal carcinoma in-situ - Atypical ductal hyperplasia - Fibroadenomatous change - Biopsy site changes B - Left breast, new anterior/superior margin, excision: - Benign breast tissue C - Left breast, new medial margin, excision: - Benign breast tissue D - Left axillary ??sentinel ??node #1 ([id number]), excision: - One lymph node, no malignancy identified (0/1) E - Left axillary ??sentinel ??node #2 (background 3), excision: - One lymph node, no malignancy identified (0/1) F - Left breast, new deep margin, excision: - Benign fibroadipose tissue Electronically signed by: ?Pardeep Galvez MD Verified: ??07/26/2023 11:32 ??Pathologist Performed at: ??-[facility] Dept. of Pathology, [place] [address] Bulk Filler: Linda Ramirez MD, FCAP, ??CLIA Certificate: [id number] SYNOPTIC Specimen ? Procedure: ??Excision (less than total mastectomy) ? Specimen Laterality: ??Left Tumor . SYNOPTIC ? Histologic Type: ??Invasive ductal carcinoma with lobular features ? Histologic Grade (Stas Histologic Score): ?Glandular (Acinar) / Tubular Differentiation: ??Score 3 ?Nuclear Pleomorphism: ??Score 2 ?Mitotic Rate: ??Score 1 ?Overall Grade: ??Grade 2 (scores of 6 or 7) ? Tumor Size: ??17 Millimeters (mm) ? Ductal Carcinoma In Situ (DCIS): ??Present - Negative for extensive ?intraductal component (EIC) ?Architectural Patterns: ??Solid ?Nuclear Grade: ??Grade II (intermediate) ?Necrosis: ??Present, central (expansive comedo necrosis) ? Lymphatic and / or Vascular Invasion: ??Not identified ? Treatment Effect in the Breast: ??No known presurgical therapy Margins ? Margin Status for Invasive Carcinoma: ??All margins negative for invasive ?carcinoma ?Distance from Invasive Carcinoma to Closest Margin: ??All margins >2 mm ? Margin Status for DCIS: ??All margins negative for DCIS ?Distance from DCIS to Closest Margin: ??Greater than 2 mm ?Closest Margin(s) to DCIS: ??All margins Regional Lymph Nodes ? Regional Lymph Node Status: ??All regional lymph nodes negative for tumor ? Total Number of Lymph Nodes Examined (sentinel and non-sentinel): ??2 ? Number of Hastings Nodes Examined: ??2 pTNM Classification (AJCC 8th Edition) ? pT Category: ??pT1c ? pN Category: ??pN0 ? N Suffix: ??(sn) Best Tumor Blocks for Future Studies ? Tumor Block(s): ??A13 ? [facility] 2022 Q3 Release ER, AK, and HER2 studies (performed on prior biopsy, [id number]): ER: Positive (>95%, strong) AK: Positive (>95%, strong) HER2 FISH: Negative DISCUSSION Although a 3.2 cm mass was identified grossly, this microscopically includes areas of dense fibrosis and fibroadenomatous change. The largest microscopic span of invasive carcinoma is 1.7 cm, which correlates with the mammographic and ultrasound findings. In Specimen A, satellite foci of invasive carcinoma are seen extending towards the red-inked medial margin (<1 mm to the margin). No definite carcinoma is seen in the additional new medial margin (Specimen C); all final margins for invasive and in- situ are carcinoma are >2 mm. SPECIMEN(S) SUBMITTED A - Left partial mastectomy, excision (1) B - #1 Left breast new anterior/superior margin, excision (1) C - #2 Left breast new medial margin, excision (1) D - #3 Left axillary ?? sentinel node #1 (2563), excision (1) E - #4 Left axillary ?? sentinel node #2 (background 3), excision (1) F - Left breast new deep margin, excision (1) CLINICAL INFORMATION Left breast cancer SPECIMEN PROCESSING A - Labeled/Fixative: Left partial mastectomy, fresh. . SPECIMEN PROCESSING Quantity/Size/Weigh t: Single, 7.5 x 5.5 x 2.8 cm ,46 g. SPECIMEN DESCRIPTION Resection Specimen: Intact, partial mastectomy. Received with a Magseed localization device. Specimen radiograph: Per Radiology The Magseed, [place] shaped clip and mass are in the specimen. ??Margins were felt to be adequate by single plane radiography.. Specimen Description: According to the established protocol the ink designations are red (medial), yellow (lateral), orange (superior), green (inferior), black (posterior) and blue (anterior). Tissue Sections: The specimen is serially sectioned perpendicular to the long from inferior-green to superior-orange into slices, each averaging 1.2 cm in thickness. LESION ??Description: 3.2 x 2.8 x 1.8 cm, hinds-white, firm, mass, with ill-defined borders. ??Location: Slices III-. ??Nearest Margin(s): 0.1 cm, lateral-yellow. ??Other Margin(s): 0.5 cm, posterior-black, anterior-blue. ??Other Margin(s): 1.0 cm, superior-orange, medial-red. ??Other Margin(s): 1.8 cm, inferior-green. ??Wire/clip: [place] biopsy marker clip identified within the mass, slice V. Parenchyma: The remaining parenchyma is predominantly fatty with a few dense white fibrous bands. Sections/Processing : [employer] Clerk sections in 15 cassettes as follows: ?A1: [employer] Express Clerk slice I, inferior margin ?A2: [employer] Clerk slice II, parenchyma to anterior margin ?A3: [employer] Clerk slice III, lesion anterior and lateral margin ?A4: [employer] Clerk slice III, lesion to posterior and lateral margin ?A5: [employer] Clerk slice III, lesion to medial and anterior margin ?A6-A7: [employer] Clerk slice IV, lesion to lateral margin ?A8: [employer] Clerk slice IV, lesion to posterior margin ?A9: [employer] Clerk slice IV, lesion to anterior margin ?A10: [employer] Clerk slice IV, medial margin ?A11: [employer] Clerk slice V, lesion to posterior margin ?A12: [employer] Clerk slice V, lesion to medial margin ?A13: [employer] Clerk slice V, lesion to anterior margin ?A14: [employer] Express Clerk slice V, lesion to superior margin ?A15: [employer] Express Clerk slice , lesion to superior margin Ischemic time: 44 minutes Total fixation time in formalin: 12 hours 4 minutes The ASCO/CAP guideline related to formalin fixation time has been met (6-72 hours). The ASCO/CAP guideline related to cold ischemic time has been met (<1 hour). B - Labeled/Fixative: Left breast new anterior/superior margin, fresh. Quantity/Size: Single, 4.0 x 2.5 x 1.0 cm. Tissue Description: Predominantly fatty portion of breast parenchyma which is received inked blue and orange on one side. Sections/Processing : Serially sectioned and entirely submitted in 9 cassettes labeled B1-B9. C - Labeled/Fixative: Left breast new medial margin, fresh. Quantity/Size: Single, 3 x 2 x 1 cm. Tissue Description: Predominantly fatty portion of breast parenchyma received partially inked red on one side. Sections/Processing : Serially sectioned and entirely submitted in 4 cassettes labeled C1-C4. D - Labeled/Fixative: Left axillary sentinel node #1, formalin. Quantity/Size: Single, 4.0 x 2.7 x 1.5 cm. Tissue Description: Adipose tissue within which 1 lymph node is identified, 2.1 cm in greatest dimension Sections/Processing : The lymph node is entirely submitted. . SPECIMEN PROCESSING Rail Express Clerk sections in 3 cassettes as follows: ?D1-D3: One node, serially sectioned E - Labeled/Fixative: Left axillary sentinel node #2, formalin. Quantity/Size: Single, 5.3 x 2.5 x 1.7 cm. Tissue Description: Adipose tissue within which 1 lymph node is identified, 3.5 cm in greatest dimension. Sections/Processing : The lymph node is entirely submitted. Rail Express Clerk sections in 10 cassettes as follows: ?E1-E10: One node, serially sectioned F - Labeled/Fixative: Left breast new deep margin, fresh. Quantity/Size: Single, 2.1 x 1.5 x 0.9 cm. Tissue Description: Predominantly fatty portion of breast parenchyma received inked black on one side. Sections/Processing : Serially sectioned and entirely submitted in 3 cassettes labeled F1-F3. ??sns 08/30/2023 9:57 AM EDT [facility] BREAST STRUCTURE / Unknown 07/19/2023 11:23 AM EDT 07/19/2023 11:23 AM EDT BREAST STRUCTURE / Unknown 07/19/2023 11:23 AM EDT 07/19/2023 11:23 AM EDT BREAST STRUCTURE / Unknown 07/19/2023 11:23 AM EDT 07/19/2023 11:23 AM EDT SENTINEL LYMPH NODE / Unknown 07/19/2023 11:23 AM EDT 07/19/2023 11:23 AM EDT SENTINEL LYMPH NODE / Unknown 07/19/2023 11:23 AM EDT 07/19/2023 11:23 AM EDT BREAST STRUCTURE / Unknown 07/19/2023 11:23 AM EDT 07/19/2023 11:23 AM EDT Caitlyn Hirsch MD PATHOLOGY/CYTOLOG Y ORDERABLES Performing Organization Address City/[facility]/ZIP Co de Phone Number [facility] [place] [address] * Specimen to Pathology (07/19/2023 11:23 AM EDT) AP Specimen 07/19/2023 11:2 3 AM EDT 07/19/2023 11:23 AM EDT Narrative [facility] - 07/19/2023 11:23 AM EDT Specimen requisition ordered. ??Separate Pathology report to follow Caitlyn Hirsch MD PATHOLOGY/CYTOLOG Y ORDERABLES Performing Organization Address [facility] Co de Phone Number [facility] [place] [address] * POCT Glucose (07/19/2023 9:52 AM EDT) Glucose, POC 178 65 - 199 mg/dL [facility] Comment: Supplemental ranges: <140 mg/dL before meals <180 mg/dL all other times of the day Blood 07/19/2023 9:52 AM EDT 07/19/2023 9:52 AM EDT Caitlyn Hirsch MD POINT OF CARE GAGAN T ORDERABLES Performing Organization Address [facility] Co de Phone Number [facility] [place] [address] documented in this encounter Visit Diagnoses Not on filedocumented in this encounter Administered Medications Inactive Administered Medications - up to 3 most recent administrations Medication Order MAR Action Action Date Dose Rate Site acetaminophen (Tylenol) tablet 975 mg 975 mg, Oral, ONCE, 1 dose, On Mon07/19/23 at 0700, Maximum dose of acetaminophen is 4,000 mg from all sources in 24 hours. When ordered for pain, acetaminophen should be given even when other ordered pain medications are indicated. , Routine Given 07/19/2023 9:40 AM EDT 975 mg documented in this encounter Active and Recently Administered Medications Times are shown in EDT. Scheduled Medication Order 07/17/2023 07/18/2023 07/19/2023 acetaminophen (Tylenol) tablet 975 mg (COMPLETED) 975 mg, Oral, ONCE, 1 dose, On Mon07/19/23 at 0700, Maximum dose of acetaminophen is 4,000 mg from all sources in 24 hours. When ordered for pain, acetaminophen should be given even when other ordered pain medications are indicated. , Routine 0940 (Given - Provid er: Huong Onofre RN) ceFAZolin (Ancef) (100 mg/mL) injection solution 2 g (COMPLETED) 2 g, Intravenous, ONCE, 1 dose, On Mon07/19/23 at 0945, To be prepared by and administered by Anesthesia. Reconstitute each ceFAZolin 1 gram vial with 10 mL of NS or SWFI = 100 mg/mL May inject IV without further dilution over 3 to 5 minutes., Intra-Operative (Intra-Procedure), Indication for (Active or Suspected): Prophylaxis 1015 (New Bag - Prov ider: Haylee Phillips CRNA) Continuous Medication Order 07/17/2023 07/18/2023 07/19/2023 lactated ringers infusion (CANCELED) 1,000 mL, at 100 mL/hr, Intravenous, CONTINUOUS, Starting on Mon07/19/23 at 0945, Until Mon07/19/23 at 1349, Day of Surgery (Day of Procedure) 1004 (New Bag - Prov ider: Haylee Phillips CRNA)1221 (New Bag - Provider: Haylee Phillips CRNA) PRN Medication Order 07/17/2023 07/18/2023 07/19/2023 BUpivacaine (pf) (Marcaine) (5 mg/mL) 0.5% injection (CANCELED) PRN, Starting on Mon07/19/23 at 1032, Until Mon07/19/23 at 1551, Intra-Operative (Intra-Procedure), Routine 1032 (Given - Provid er: Caitlyn Hirsch MD - Comment: mixed with lidocaine 1%plain 1:1) lidocaine (pf) (Xylocaine) (10 mg/mL) 1% injection (CANCELED) PRN, Starting on Mon07/19/23 at 1033, Until Mon07/19/23 at 1551, Intra-Operative (Intra-Procedure), Routine 1033 (Given - Provid er: Caitlyn Hirsch MD - Comment: mixed with 0.5% bupivicane 1:1) documented in this encounter Care Teams Retort Cooler Relationship Specialty Start Date End Date Haylee Baptiste MD [address] [place] [address] PCP - General 01/21/10 documented as of this encounter
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
--- OUTSIDE RECORDS SUMMARY | 2023-12-15 12:36 | XMS_ITS | Encounter Summary ---
Author Organization [facility] Address [facility] [address] Care Team Providers Care Social Welfare Research Worker Name Role Phone Haylee Baptiste MD Primary Care Provider Encounter Details Date Type Department Care Team (Late st Contact Info) Description 06/22/2023 Orders [place] [address] Caitlyn Hirsch MD [facility] [place] [address] Malignant neoplasm of left breast in female, estrogen receptor positive, unspecified site of breast Social History Tobacco Use Types Packs/Day Years [...] things needed for daily living? No 06/09/2023 [facility] Inpatient Questions Answer Date Recorded Does Anyone [...] TH Visit (TeleHealth) Hematology and Oncology at [place] [address] Kati Burnette MD [facility] DR [place] [address] 01/24/2024 9:30 AM EST Appointment XRay at [address] Jimmy wSann MD [facility] [place] [address] 01/24/2024 11:00 AM EST Office Visit Pain and Spine Center at [place] [address] Regulo Wang PA [facility] [place] [address] 01/24/2024 2:45 PM EST Appointment Mammography at [place] [address] 01/24/2024 3:45 PM EST Office Visit General Surgery at [address] Caitlyn Hirsch MD [facility] [place] [address] 03/20/2024 9:00 AM EST Office Visit Hematology [place] [address] Ericka Forrest, [facility] HEMATOLOGY [place] [address] 07/29/2024 2:00 PM EDT Office Visit Radiation Oncology at [address] [address] Kasie Marte MD [facility] [place] [address] documented as of this encounter Results * Mammo Specimen Left (07/19/2023 11:27 AM EDT) WORKSTATION ID [id number] 1 RAD Anatomical Region Laterality Modality Breast Left Mammography Narrative 07/19/2023 11:55 AM EDT EXAMINATION: MAMMO SPECIMEN LEFT INDICATION: Intraoperative specimen image for adequacy of lesion and/or clip removal TECHNIQUE: A radiograph was obtained of the excised Left breast specimen. COMPARISONS: Preoperative imaging FINDINGS: The Magseed, [place] shaped clip and mass are in the specimen. ??Margins were felt to be adequate by single plane radiography. CAITLYN Durga HIRSCH was informed in the operating room of the results by Leia Gonzalez MD at 1130 AM. I have personally reviewed the image(s) and the resident's interpretation and agree with the findings, Dorothy Hammond MD at 07/19/2023 11:55 AM Thank you for letting us participate in the care of this patient. ??If you are a health care provider and have any questions regarding this report, please contact the number below. ??For patients who have questions please contact the health daytime caregiver that requested your imaging first. ? Electronically signed by: Dorothy Hammond MD, [facility] ([phone]), at 07/19/2023 11:55 AM Caitlyn Hirsch MD IMG MAMMO ORDERAB LES * Mammo [place] Node Injection (07/19/2023 9:14 AM EDT) WORKSTATION ID [id number] 1 RAD Anatomical Region Laterality Modality Breast N/A Mammography Impressions 07/19/2023 10:18 AM EDT Status post successful Magseed localization and sentinal node injection PROCEDURAL ATTESTATION: Resident: Leia Gonzalez MD Attending: I was present with the resident for the vizcaino component(s) of the procedure and otherwise remained immediately available for the duration of the procedure. I attest to having personally viewed the images/test and approve the above interpretation. I have personally reviewed the image(s) and the resident's interpretation and agree with the findings, Dorothy Hammond MD at 07/19/2023 10:18 AM Thank you for letting us participate in the care of this patient. ??If you are a health care provider and have any questions regarding this report, please contact the number below. ??For patients who have questions please contact the health daytime caregiver that requested your imaging first. ? Electronically signed by: Dorothy Hammond MD, [facility] ([phone]), at 07/19/2023 10:18 AM Narrative 07/19/2023 10:18 AM EDT EXAMINATION: MAMMO MAGSEED PLACEMENT LEFT, MAMMO SENTINEL NODE INJECTION CLINICAL HISTORY: PLEASE MAGSEED LOCALIZE LEFT BREAST CANCER TECHNIQUE:Informed consent was confirmed and a timeout procedure was performed per protocol. Using sterile technique and local anesthetic (less than 5 cc's of 1% lidocaine) a needle localization of the mass and clip in the Left was performed using mammographic guidance. The needle tip was placed at the lesion. After confirming satisfactory positioning of the needle the Magseed was deployed. CC and ML views of the breast were performed to mammographically verify seed placement for the surgeon. There were no complications. Using sterile technique the breast was injected at the upper outer quadrant areolar margin with less than 2 milliCuries of Tc-99m Lymphoseek administered as a split injection of a 1 cc solution. 1/3 of the dose was administered intradermally and 2/3 was injected in the parenchyma. No images specific to the tracer were performed. The radiotracer injection was administered under the supervision of authorized users, Naveen Friedman M.D. and Dorothy HEARD] Caitlyn Hirsch MD IMG MAMMO ORDERAB LES * Mammo Magseed Placement Left (07/19/2023 9:10 AM EDT) WORKSTATION ID [id number] 1 DH RAD Anatomical Region Laterality Modality Breast Left Mammography Impressions 07/19/2023 10:18 AM EDT Status post successful Magseed localization and sentinal node injection PROCEDURAL ATTESTATION: Resident: Leia Gonzalez MD Attending: I was present with the resident for the vizcaino component(s) of the procedure and otherwise remained immediately available for the duration of the procedure. I attest to having personally viewed the images/test and approve the above interpretation. I have personally reviewed the image(s) and the resident's interpretation and agree with the findings, Dorothy Hammond MD at 07/19/2023 10:18 AM Thank you for letting us participate in the care of this patient. ??If you are a health care provider and have any questions regarding this report, please contact the number below. ??For patients who have questions please contact the health daytime caregiver that requested your imaging first. ? Electronically signed by: Dorothy Hammond MD, [facility] ([phone]), at 07/19/2023 10:18 AM Narrative 07/19/2023 10:18 AM EDT EXAMINATION: MAMMO MAGSEED PLACEMENT LEFT, MAMMO SENTINEL NODE INJECTION CLINICAL HISTORY: PLEASE MAGSEED LOCALIZE LEFT BREAST CANCER TECHNIQUE:Informed consent was confirmed and a timeout procedure was performed per protocol. Using sterile technique and local anesthetic (less than 5 cc's of 1% lidocaine) a needle localization of the mass and clip in the Left was performed using mammographic guidance. The needle tip was placed at the lesion. After confirming satisfactory positioning of the needle the Magseed was deployed. CC and ML views of the breast were performed to mammographically verify seed placement for the surgeon. There were no complications. Using sterile technique the breast was injected at the upper outer quadrant areolar margin with less than 2 milliCuries of Tc-99m Lymphoseek administered as a split injection of a 1 cc solution. 1/3 of the dose was administered intradermally and 2/3 was injected in the parenchyma. No images specific to the tracer were performed. The radiotracer injection was administered under the supervision of authorized users, Naveen Friedman M.D. and Dorothy JONES] Caitlyn Hirsch MD IMG MAMMO ORDERAB LES documented in this encounter Visit Diagnoses Diagnosis Malignant neoplasm of left breast in female, estrogen receptor positive, unspecified site of breast Malignant neoplasm of left breast in female, estrogen receptor positive, unspecified site of breast Malignant neoplasm of left breast in female, estrogen receptor positive, unspecified site of breast Malignant neoplasm of left breast in female, estrogen receptor positive, unspecified site of breast documented in this encounter Care Teams Social Welfare Research Worker Relationship Specialty Start Date End Date Haylee Baptiste MD [address] [place] [address] PCP - General 01/21/10 documented as of this encounter
--- OUTSIDE RECORDS SUMMARY | 2023-12-15 12:36 | XMS_ITS | Encounter Summary ---
Author Organization [facility] Address [facility] [place] [address] Care Team Providers Care Branch Lead Name Role Phone Haylee Baptiste MD Primary Care Provider [phone] Encounter Details Date Type Department Care Team (Latest Contact Info) Description 08/02/2023 Travel Social History Tobacco Use Types Packs/Day [...] from your doctor or pharmacy? Never 08/01/2023 [facility] Utilities Answer Date Recorded In [...] any time in the past 12 m [facility], were you homeless or living in [...] TH Visit (TeleHealth) [place] [address] Kati Burnette MD [facility] [place] [address] 01/24/2024 9:30 AM EST Appointment XRay at [address] [place] [address] Jimmy Swann MD [facility] [place] [address] 01/24/2024 11:00 AM EST Office Visit [place] [address] Regulo Wang PA [facility] [place] [address] 01/24/2024 2:45 PM EST Appointment [place] [address] 01/24/2024 3:45 PM EST Office [place] [address] Caitlyn Hircsh MD [facility] [place] [address] 03/20/2024 9:00 AM EST Office Visit Hematology [place] [address] Ericka Forrest [facility] DR HEMATOLOGY [place] [address] 07/29/2024 2:00 PM EDT Office Visit Radiation Oncology at [address] [phone] Kasie Marte MD [facility] [place] [address] documented as of this encounter Visit Diagnoses Not on filedocumented in this encounter Care Teams Branch Lead Relationship Specialty Start Date End Date Haylee Baptiste MD [address] [place] [address] PCP - General 01/21/10 documented as of this encounter
--- OUTSIDE RECORDS SUMMARY | 2023-12-15 12:36 | XMS_ITS | Encounter Summary ---
Author Organization [facility] Address [facility] [place] [address] Care Team Providers Care Passenger Service Supervisor Name Role Phone Haylee Baptiste MD Primary Care Provider [phone] Encounter Details Date Type Department Care Team (Latest Contact Info) Description 06/21/2023 Travel Social History Tobacco Use Types Packs/Day [...] TH Visit (TeleHealth) Hematology and Oncology at [place] [phone] Kati Burnette MD [facility] DR HEMATOLOGY [place] [address] 01/24/2024 9:30 AM EST Appointment XRay at [address] [place] [address] Jimmy Swann MD [facility] [place] [address] 01/24/2024 11:00 AM EST Office Visit Pain and Spine Center at [place] [address] Regulo Wang PA [facility] [place] [address] 01/24/2024 2:45 PM EST Appointment Mammography at [place] [phone] 01/24/2024 3:45 PM EST Office Visit General Surgery at [address] Caitlyn Hirsch MD [facility] [place] [address] 03/20/2024 9:00 AM EST Office Visit Hematology and Oncology at [place] [phone] Ericka Forrest, [facility] DR HEMATOLOGY [place] [address] 07/29/2024 2:00 PM EDT Office Visit Radiation Oncology at [address] [address] Kasie Marte MD [facility] [place] [address] documented as of this encounter Visit Diagnoses Not on filedocumented in this encounter Care Teams Passenger Service Supervisor Relationship Specialty Start Date End Date Haylee Baptiste MD [address] [place] [address] PCP - General 01/21/10 documented as of this encounter
--- OUTSIDE RECORDS SUMMARY | 2023-12-15 12:36 | XMS_ITS | Encounter Summary ---
Author Organization [facility] [place] [address] Care Team Providers Care Topographic Computator Name Role Phone Haylee Baptiste MD Primary Care Provider [phone] Encounter Details Date Type Department Care Team (Late st Contact Info) Description 08/02/2023 Telephone Hematology [place] [address] Nica Wilson Social History Tobacco Use Types Packs/Day Years [...] In the past 12 months has e [employer], gas, oil, or water [employer] threatened to shut off services in your [...] Miscellaneous Notes * Telephone Encounter - Nica Wilson - 08/18/2023 12:58 PM EDT Per [employer] web site specimen was received 08/15 and ERD is 08/29 * Telephone Encounter - Nica Wilson - 08/04/2023 1:40 PM EDT Notified of scanned note from [facility] stating that PA is not required for Oncotype testing. Submitted request to [employer] [id number] * Telephone Encounter - Nica Wilson - 08/03/2023 11:04 AM EDT Made call to [facility] provider services at [phone] but call was ended due to high call volume with no option to hold. Located prior auth form and faxed urgent PA request to [facility] at [phone]; see letter encounter/ media for PA form * Telephone Encounter - Nica Wilson - 08/02/2023 8:07 AM EDT Made call to [facility] provider services at [phone], offices closed until 830 will call back * Telephone Encounter - Nica Wilson - 08/02/2023 8:06 AM EDT ----- Message from Kinjal Pete sent at 07/30/2023 1:01 PM EDT ----- Regarding: oncotype request, new patient August 07 Please submit for Oncotype testing Node status: [x ] Negative [ ] Micromets [ ] Node Positive 1-3 nodes [ ] Node Positive 4+ nodes ER [ ] Negative [x ] Positive CO [ ] Negative [ x] Positive HER2 [x ] Negative [ ] Positive Menopausal status: [ ] Pre [ x] Post [ ] Unknown Tumor size (in centimeters): 1.7cm ICD-10 code: C50.919 Do you want a specific sample tested? If so, please include specimen ID#: [id number] documented in this encounter Plan of Treatment Upcoming Encounters Date Type Department Care Team (Late st Contact Info) Description 01/09/2024 2:20 PM EST TH Visit (TeleHealth) Hematology [place] [address] Kati Burnette MD [facility] [place] [address] 01/24/2024 9:30 AM EST Appointment XRay at [address] [place] [address] Jimmy Swann MD [facility] [place] [address] 01/24/2024 11:00 AM EST Office Visit Pain and Spine Center at [place] [address] Regulo Wang PA [facility] [place] [address] 01/24/2024 2:45 PM EST Appointment Mammography at [place] [address] 01/24/2024 3:45 PM EST Office Visit General Surgery at [place] [address] Caitlyn Hirsch MD [facility] [place] [address] 03/20/2024 9:00 AM EST Office Visit Hematology and Oncology at [place] [address] Ericka Forrest, [facility] [place] DR HEMATOLOGY [place] [address] 07/29/2024 2:00 PM EDT Office Visit Radiation Oncology at [address] [phone] Kasie Marte MD [facility] [place] [address] documented as of this encounter Visit Diagnoses Not on filedocumented in this encounter Care Teams Topographic Computator Relationship Specialty Start Date End Date Haylee Baptiste MD [address] [place] [address] PCP - General 01/21/10 documented as of this encounter
--- OUTSIDE RECORDS SUMMARY | 2023-12-15 12:36 | XMS_ITS | Encounter Summary ---
Author Organization [facility] Address [facility] [place] [address] Care Team Providers Care Trap Puller Name Role Phone Haylee Baptiste MD Primary Care Provider [phone] Encounter Details Date Type Department Care Team (Latest Contact Info) Description 07/12/2023 Travel Social History Tobacco Use Types Packs/Day [...] TH Visit (TeleHealth) Hematology and Oncology at [place] [phone] Kati Burnette MD [facility] [place] [address] 01/24/2024 9:30 AM EST Appointment XRay at [address] [place] [address] Jimmy Swann MD [facility] [place] [address] 01/24/2024 11:00 AM EST Office Visit Pain and Spine Center at [place] [address] Regulo Wang PA [facility] [place] [address] 01/24/2024 2:45 PM EST Appointment Mammography at [place] [phone] 01/24/2024 3:45 PM EST Office Visit General Surgery at [address] Caitlyn Hirsch MD [facility] [place] [address] 03/20/2024 9:00 AM EST Office Visit Hematology and Oncology at [place] [phone] Ericka Forrest, [facility] [place] [address] 07/29/2024 2:00 PM EDT Office Visit Radiation Oncology at [address] [address] Kasie Marte MD [facility] DR [place] [address] documented as of this encounter Visit Diagnoses Not on filedocumented in this encounter Care Teams Trap Puller Relationship Specialty Start Date End Date Haylee Baptiste MD [address] [place] [address] PCP - General 01/21/10 documented as of this encounter
--- OUTSIDE RECORDS SUMMARY | 2023-12-15 12:36 | XMS_ITS | Encounter Summary ---
Author Organization Formerly [facility] Address [facility] [place] [address] Care Team Providers Care Carpenters Supervisor Name Role Phone Haylee Baptiste MD Primary Care Provider [phone] Encounter Details Date Type Department Care Team (Late st Contact Info) Description 06/21/2023 Telephone [place] [phone] Caitlyn Hirsch MD [facility] [place] [address] Social History Tobacco Use Types Packs/Day Years [...] things needed for daily living? No 06/09/2023 [facility]LY [facility] Inpatient Questions Answer Date Recorded Does Anyone [...] encounter Miscellaneous Notes * Telephone Encounter - Caitlyn Hirsch MD - 06/21/2023 1:31 PM EDT Called patient to finalize the surgical plan for the management of her left breast cancer. She had an enlarged lymph node seen on breast MRI. Left axillary ultrasound with possible biopsy was orderedfor further evaluation and performed today. No abnormal lymph nodes were seen on the ultrasound. Wereviewed these results and plan for sentinel lymph node biopsy at the time of her cancer surgery for axillary staging. At her last visit she elected to proceed with partial mastectomy which is still her preference. Theprocedure of seed localized left breast partial mastectomy and left SLNB was reviewed with the patient along with the expected operative course and postoperative recovery. The risks, benefits and alternatives have been discussed and she'd like to proceed with scheduling. Consent will be obtained day of surgery. Plan - Left partial mastectomy (seed localized) and left SLNB - Follow up 2 weeks postop Caitlyn Hirsch MD 06/21/2023 documented in this encounter Plan of Treatment Upcoming Encounters Date Type Department Care Team (Late st Contact Info) Description 01/09/2024 2:20 PM EST TH Visit (TeleHealth) [place] [address] Kati Burnette MD [facility] HEMATOLOGY [place] [address] 01/24/2024 9:30 AM EST Appointment XRay at [address] [place] [address] Jimmy Swann MD [facility] [place] [address] 01/24/2024 11:00 AM EST Office Visit Pain and Spine Center at [place] [phone] Regulo Wang PA [facility] [place] [address] 01/24/2024 2:45 PM EST Appointment Mammography at [place] [phone] 01/24/2024 3:45 PM EST Office Visit General Surgery at [place] [phone] Caitlyn Hirsch MD [facility] [place] [address] 03/20/2024 9:00 AM EST Office Visit Hematology [place] [phone] Ericka Forrest, [facility] DR HEMATOLOGY [place] [address] 07/29/2024 2:00 PM EDT Office Visit Radiation Oncology at [address] [phone] Kasie Marte MD [facility] DR [place] [address] documented as of this encounter Visit Diagnoses Not on filedocumented in this encounter Care Teams Carpenters Supervisor Relationship Specialty Start Date End Date Haylee Baptiste MD [address] [place] [address] PCP - General 01/21/10 documented as of this encounter
--- OUTSIDE RECORDS SUMMARY | 2023-12-15 12:36 | XMS_ITS | Encounter Summary ---
[place] [address] Care Team Providers Care Seamark Advanced Operator Maintainer Name Role Phone Haylee Baptiste MD Primary Care Provider [phone] Reason for Visit * Auth/Cert (Routine) Specialty [...] MODIFIER SENTINEL NODE EXCISION Caitlyn Hirsch MD [facility] [place] [address] [facility] Referral ID Status Reason Start Date Expiration Date Visits Re quested Visits Authorized [id number] 1 1 Encounter Details Date Type Department Care Team (Late st Contact Info) Description 07/19/2023 9:55 AM EDT - 07/19/2023 12:45 PM EDT Surgery Outpatient [place] [phone] Caitlyn Hirsch MD [facility] [place] [place] [address] MASTECTOMY PARTIAL (WRVU 10.13) Social History Tobacco Use Types Packs/Day Years [...] Sign Reading Time Taken Comments Blood Pressure 119/75 07/19/2023 9:43 AM EDT Pulse 77 07/19/2023 9:43 AM EDT Temperature 36.1 ??C (97 ??F) 07/19/2023 9:43 AM EDT Respiratory Rate 18 07/19/2023 9:43 AM EDT Oxygen Saturation 98% 07/19/2023 9:43 AM EDT Inhaled Oxygen Concentration - - Weight - - Height - - Body Mass Index - - documented in this encounter Discharge Instructions * Discharge Instructions* Lamont Guerrero V RN - 07/19/2023 9:25 AM EDT General [...] closest emergency room or call the hospital dragline operator helper at [phone] and ask for physician continuous process tanner rotary drum covering for your physician. Questions or problems after 5pm or on a weekend: Call the [facility] dragline operator helper at and ask for the physician continuous process tanner rotary drum covering for your doctor. At 9:40 am [...] the surgery clinic at or send a Break30 message for any post-operative concerns, including: excessive bleeding, drainage at the operative site, fevers, chills, increased pain thatis not relieved by pain medications, persistent nausea or vomiting, shortness of breath. After hours and on weekends, please call the paging dragline operator helper at [phone] and ask for the General Surgery resident continuous process tanner rotary drum. The clinic and [facility] messages are not covered after hours or [...] daily. 03/15/2022 fluticasone propionate (Flonase) 50 mcg/actuation [place], Suspension 1 spray by Each Nare route [...] focal lobular features and DCIS, intermediate grade, ER/NH+ (>95% strong) HER2 negative by FISH. [place] [...] Left 09/27/2018 Justin De La Cruz MD [facility] INTERVENTIONL RAD MAMMO US BIOPSY LEFT Left 06/05/2023 Mammo Us Biopsy Left 06/05/2023 Dorothy Hammond MD [facility] RAD MAMMOGRAPHY PRO ANTERIOR INSTRUMENTATION 2-3 VERTEBRAL SEGMENTS Midline 01/18/2023 ANT. SPINAL INSTRUMENTATION, 2-3 VERTEBRA, SEGMENTED (WRVU 11.94) performed by Jimmy Swann MD at [facility] MAIN OR PRO ARTHRODESIS, ANT INTERBODY,DECOMPRESSION; CERVICAL BELOW C2 Midline 01/18/2023 ARTHRODESIS, ANT INTERBODY,DECOMPRESSION; CERVICAL BELOW C2 (WRVU 25) performed by Jimmy Swann MD at [facility] MAIN OR PRO INSERT BIOMCHN DEV INTERVERTEBRAL DSC SPC W/ARTHRD Midline 01/18/2023 INSERTION INTERBODY BIOMECH DEV TO INTERVEBRAL DISC SPACE, EA INTERSPACE (WRVU 4.25) performed by Jimmy Swann MD at [facility] MAIN OR Allergies Allergies Allergen Reactions [...] Drug use: No 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 N/A Satisfactory sampling was obtained. A Ziarco 14G marker clip was placed. Cranio-caudal and [...] immunostaining: >95% Stain intensity: strong Progesterone Receptor (NH) immunoreactivity: positive Cancer cells with immunostaining: >95% Stain intensity: strong RESULT: NEGATIVE FOR HER2/JEROMY AMPLIFICATION ASSESSMENT: Nallely is a 68 y.o. woman with left IDC, G2, ER/NH+ HER2- (3cm) with solitary enlarged left axillary [...] Hirsch MD - 07/19/2023 10:31 AM EDT [facility] [place] Patient Name: Nallely Velazquez : [id number] MR#: [id number] Case Date: 07/19/2023 Surgeon: Surgeons and Role: [...] TH Visit (TeleHealth) Hematology and Oncology at [place] [address] Kati Burnette MD [facility] DR HEMATOLOGY [place] [address] 01/24/2024 9:30 AM EST Appointment XRay [place] [address] [place] [address] Jimmy Swann MD [facility] [place] [address] 01/24/2024 11:00 AM EST Office Visit Pain and Spine Center at [place] [address] Regulo Wang PA [facility] [place] [address] 01/24/2024 2:45 PM EST Appointment Mammography at [place] [address] 01/24/2024 3:45 PM EST Office Visit General Surgery at [place] [address] Caitlyn Hirsch MD [facility] [place] [address] 03/20/2024 9:00 AM EST Office Visit Hematology and Oncology at [place] [address] Ericka Forrest, [facility] DR HEMATOLOGY [place] [address] 07/29/2024 2:00 PM EDT Office Visit Radiation Oncology at [address] [phone] Kasie Marte MD [facility] DR [place] [address] [phone] (work) documented as of this encounter Procedures Procedure [...] 3 AM EDT LEFT BREAST CANCER Intraop [place] Lymph Id W/Dye Injection ([id number]) Yes 07/19/2023 10:03 AM EDT LEFT BREAST CANCER Bx/Remv, Lymph Node, Deep Axill ([id number]) Yes 07/19/2023 10:03 AM EDT LEFT BREAST CANCER Mastectomy Partial (02064) Yes 07/19/2023 10:03 AM EDT LEFT BREAST CANCER POCT GLUCOSE Routine 07/19/2023 9:52 AM EDT documented in this encounter Results * Specimen to Pathology (07/19/2023 1:25 PM EDT) AP Specimen 07/19/2023 1:25 PM EDT 07/19/2023 1:25 PM EDT [facility] LABORATORY - 07/19/2023 1:25 PM EDT Specimen requisition ordered. ??Separate Pathology report to follow Caitlyn Hirsch MD PATHOLOGY/CYTOLOG Y ORDERABLES Performing Organization Address [facility] [place] [address] * Specimen to Pathology (07/19/2023 12:08 PM EDT) AP Specimen 07/19/2023 12:0 8 PM EDT 07/19/2023 12:08 PM EDT Narrative [facility] LABOR[facility]ORY - 07/19/2023 12:08 PM EDT Specimen requisition ordered. ??Separate Pathology report to follow Caitlyn Hirsch MD PATHOLOGY/CYTOLOG Y ORDERABLES Performing Organization Address [facility] [place] [address] * Specimen to Pathology (07/19/2023 12:04 PM EDT) AP Specimen 07/19/2023 12:0 4 PM EDT 07/19/2023 12:04 PM EDT Narrative [facility] - 07/19/2023 12:04 PM EDT Specimen requisition ordered. ??Separate Pathology report to follow Caitlyn Hirsch MD PATHOLOGY/CYTOLOG Y ORDERABLES Performing Organization Address [facility]/[place] [address] * Specimen to Pathology (07/19/2023 12:04 PM EDT) AP Specimen 07/19/2023 12:0 4 PM EDT 07/19/2023 12:04 PM EDT Narrative [facility] - 07/19/2023 12:04 PM EDT Specimen requisition ordered. ??Separate Pathology report to follow Caitlyn Hirsch MD PATHOLOGY/CYTOLOG Y ORDERABLES Performing Organization Address City/[facility]/ZIP [place] [address] * Specimen to Pathology (07/19/2023 12:04 PM EDT) AP Specimen 07/19/2023 12:0 4 PM EDT 07/19/2023 12:04 PM EDT Narrative [facility] - 07/19/2023 12:04 PM EDT Specimen requisition ordered. ??Separate Pathology report to follow Caitlyn Hirsch MD PATHOLOGY/CYTOLOG Y ORDERABLES Performing Organization Address [facility] [place] [address] * Specimen to Pathology (07/19/2023 12:04 PM EDT) AP Specimen 07/19/2023 12:0 4 PM EDT 07/19/2023 12:04 PM EDT Narrative [facility] - 07/19/2023 12:04 PM EDT Specimen requisition ordered. ??Separate Pathology report to follow Caitlyn Hirsch MD PATHOLOGY/CYTOLOG Y ORDERABLES Performing Organization Address [facility] [place] [address] * Surgical Pathology Report (07/19/2023 11:23 AM EDT) Final Diagnosis ? Location: [facility] The signing pathologist has (i) examined the relevant preparation(s) for the specimen(s) and (ii) rendered or confirmed the diagnosis(es). . ? Addendum ADDENDUM DISCUSSION SPECIAL TEST PERFORMED: Test: ??Oncotype DX [facility] [place] Case: ??, block A-13 Performing Lab: ??[facility] Performing Lab Case: ??[id number] Reported by: ??Jhon Dominguez MD Date reported: ??08/23/2023 For the full text of the [facility] report please refer to the Chart Review Media tab in the electronic health record (eDH). _ Electronically signed by: ?Pardeep Galvez MD Verified: ??08/30/2023 9:57 ?? Pathologist Performed at: ??-[facility] [place] Dept. of [place]ology, [place] [address] Cad Cam Programmer: Linda Ramirez MD, FCAP, ??CLIA Certificate: [id number] ?Surgical Pathology DIAGNOSIS A - Left breast, [...] MD Verified: ??07/26/2023 11:32 ??Pathologist Performed at: ??-[facility] [place] Dept. of [place]ology, [place] [address] Cad Cam Programmer: Linda Ramirez MD, FCAP, ??CLIA Certificate: [id number] SYNOPTIC Specimen ? Procedure: ??Excision (less than total mastectomy) ? Specimen Laterality: ??Left Tumor . SYNOPTIC ? Histologic Type: ??Invasive ductal carcinoma with lobular features ? Histologic Grade ([place] Histologic Score): ?Glandular (Acinar) / Tubular Differentiation: [...] (sentinel and non-sentinel): ??2 ? Number of [place] Nodes Examined: ??2 pTNM Classification (AJCC 8th Edition) ? pT Category: ??pT1c ? pN Category: ??pN0 ? N Suffix: ??(sn) Best Tumor Blocks for Future Studies ? Tumor Block(s): ??A13 ? [facility] 2022 Q3 Release ER, NH, and HER2 studies (performed on prior biopsy, [id number]): ER: Positive (>95%, strong) NH: Positive (>95%, strong) HER2 FISH: Negative DISCUSSION [...] device. Specimen radiograph: Per Radiology The Magseed, [place] shaped clip and mass are in the [...] medial-red. ??Other Margin(s): 1.8 cm, inferior-green. ??Wire/clip: [place] biopsy marker clip identified within the mass, slice V. Parenchyma: The remaining parenchyma is predominantly fatty with a few dense white fibrous bands. Sections/Processing : Art Objects Repairer sections in 15 cassettes as follows: ?A1: Art Objects Repairer slice I, inferior margin ?A2: Art Objects Repairer slice II, parenchyma to anterior margin ?A3: Art Objects Repairer slice III, lesion anterior and lateral margin ?A4: Art Objects Repairer slice III, lesion to posterior and lateral margin ?A5: Art Objects Repairer slice III, lesion to medial and anterior margin ?A6-A7: Art Objects Repairer slice IV, lesion to lateral margin ?A8: Art Objects Repairer slice IV, lesion to posterior margin ?A9: Art Objects Repairer slice IV, lesion to anterior margin ?A10: Art Objects Repairer slice IV, medial margin ?A11: Art Objects Repairer slice V, lesion to posterior margin ?A12: Art Objects Repairer slice V, lesion to medial margin ?A13: Art Objects Repairer slice V, lesion to anterior margin ?A14: Art Objects Repairer slice V, lesion to superior margin ?A15: Art Objects Repairer slice , lesion to superior margin Ischemic [...] node is entirely submitted. . SPECIMEN PROCESSING Art Objects Repairer sections in 3 cassettes as follows: ?D1-D3: One node, serially sectioned E - Labeled/Fixative: Left axillary sentinel node #2, formalin. Quantity/Size: Single, 5.3 x 2.5 x 1.7 cm. Tissue Description: Adipose tissue within which 1 lymph node is identified, 3.5 cm in greatest dimension. Sections/Processing : The lymph node is entirely submitted. Art Objects Repairer sections in 10 cassettes as follows: ?E1-E10: One node, serially sectioned F - Labeled/Fixative: Left breast new deep margin, fresh. Quantity/Size: Single, 2.1 x 1.5 x 0.9 cm. Tissue Description: Predominantly fatty portion of breast parenchyma received inked black on one side. Sections/Processing : Serially sectioned and entirely submitted in 3 cassettes labeled F1-F3. ??sns 08/30/2023 9:57 AM EDT [facility] BREAST STRUCTURE / Unknown 07/19/2023 11:23 [...] AM EDT 07/19/2023 11:23 AM EDT Caitlyn E Tonneson MD PATHOLOGY/CYTOLOG Y ORDERABLES Performing Organization Address City/[facility]/ZIP Co de Phone Number [facility] [place] [address] * Specimen to Pathology (07/19/2023 11:23 AM EDT) AP Specimen 07/19/2023 11:2 3 AM EDT 07/19/2023 11:23 AM EDT Narrative [facility] - 07/19/2023 11:23 AM EDT Specimen requisition ordered. ??Separate Pathology report to follow Caitlyn Hirsch MD PATHOLOGY/CYTOLOG Y ORDERABLES Performing Organization Address [facility] Co de Phone Number [facility] [place] [address] * POCT Glucose (07/19/2023 9:52 AM EDT) Glucose, POC 178 65 - 199 mg/dL [facility] Comment: Supplemental ranges: <140 mg/dL before meals <180 mg/dL all other times of the day Blood 07/19/2023 9:52 AM EDT 07/19/2023 9:52 AM EDT Caitlyn Hirsch MD POINT OF CARE GAGAN T ORDERABLES Performing Organization Address [facility] Co de Phone Number [facility] [place] [place] [address] documented in this encounter Visit Diagnoses Not [...] Given 07/19/2023 9:40 AM EDT 975 mg BUpivacaine (pf) (Marcaine) (5 mg/mL) 0.5% injection PRN, Starting on Mon07/19/23 at 1032, Until Mon07/19/23 at 1551, Intra-Operative (Intra-Procedure), Routine Given 07/19/2023 10:32 AM EDT 6.25 mLs 19- Surgical Site lidocaine (pf) (Xylocaine) (10 mg/mL) 1% injection PRN, Starting on Mon07/19/23 at 1033, Until Mon07/19/23 at 1551, Intra-Operative (Intra-Procedure), Routine Given 07/19/2023 10:33 AM EDT 6.25 mLs 19- Surgical Site documented in this encounter Active and Recently [...] 1:1) documented in this encounter Care Teams Seamark Advanced Operator Maintainer Relationship Specialty Start Date End Date Haylee Baptiste MD [address] [place] [address] PCP - General 01/21/10 documented as of this encounter
--- OUTSIDE RECORDS SUMMARY | 2023-12-15 12:36 | XMS_ITS | Encounter Summary ---
Author Organization [facility] [place] [address] Care Team Providers Care Ballast Cleaning Operator Name Role Phone Haylee Baptiste MD Primary Care Provider [phone] Encounter Details Date Type Department Care Team (Late st Contact Info) Description 07/18/2023 Tele[place] [phone] Jo Morrison, RN Social History Tobacco Use Types Packs/Day [...] Never 08/01/2023 [facility] Utilities Answer Date Recorded In the past 12 months has e [employer], gas, oil, or water [employer] threatened to shut off services in your [...] any time in the past 12 [facility], were you homeless or living in [...] encounter Miscellaneous Notes * Telephone Encounter - Jo Morrison RN - 07/18/2023 1:19 PM EDT Copied from CRM #[id number]. Topic: Specialty Dept CRMs - Medication Issues >> Jul 18, 2023 10:48 AM Samantha Jeong wrote: Medication Issues Specialist Tom Anna, DO Relationship (if other than patient-full name): [facility] Reason for call: Medication Issue (if symptom based used Triage Subtopic) Message/information for the nurse: The pharmacy can't get the 3mg or 4.5mg. They are wondering if the doctor would like to prescribe something else Name of Medication: dulaglutide (Trulicity) 4.5 mg/0.5 mL Pen Injector [[id number]] Issue with the medication: unable to get documented in this encounter Plan of Treatment Upcoming Encounters Date Type Department Care Team (Late st Contact Info) Description 01/09/2024 2:20 PM EST TH Visit (TeleHealth) Hematology and Oncology at [place] [phone] Kati Burnette MD [facility] DR [place] [address] 01/24/2024 9:30 AM EST Appointment XRay at [address] [place] [phone] Jimmy Swann MD [facility] [place] [place] [address] 01/24/2024 11:00 AM EST Office Visit Pain and Spine Center at [address] Regulo Wang PA [facility] [place] [address] 01/24/2024 2:45 PM EST Appointment Mammography at [place] [phone] 01/24/2024 3:45 PM EST Office Visit General Surgery at [place] [phone] Caitlyn Hirsch MD [facility] [place] [address] 03/20/2024 9:00 AM EST Office Visit Hematology [place] [phone] Ericka Forrest, [facility] DR HEMATOLOGY [place] [address] 07/29/2024 2:00 PM EDT Office Visit Radiation Oncology at [address] [phone] Kasie Marte MD [facility] [place] [address] documented as of this encounter Visit Diagnoses Not on filedocumented in this encounter Care Teams Ballast Cleaning Operator Relationship Specialty Start Date End Date Haylee Baptiste MD [address] [place] [address] PCP - General 01/21/10 documented as of this encounter
--- OUTSIDE RECORDS SUMMARY | 2023-12-15 12:36 | XMS_ITS | Encounter Summary ---
Author Organization [facility] [place] [address] Care Team Providers Care Technical Sales Director Name Role Phone Haylee Baptiste MD Primary Care Provider Encounter Details Date Type Department Care Team (Late st Contact Info) Description 06/14/2023 Notes [place] [phone] Katya Landrum, MOCK UP ASSEMBLER Social History Tobacco Use Types Packs/Day Years [...] as of this encounter Progress Notes * Katya Landrum, M[employer] UP ASSEMBLER - 06/14/2023 9:58 AM EDT Comprehensive Breast Program (CBP) Social Work Consult Reason for visit/Presentation: I'm able to meet with Samantha to introduce myself as home health care social worker and review this role within CBP team while she is here today for surgical oncology consultation with Dr. Hirsch. She is accompanied in the exam room daughter Loren, and presents with stable mood and affect appropriate to situation. She makes good eye contact and engages in conversation about her psychosocial health in the context of breast cancer diagnosis and treatment. Personal/social history: Samantha lives with her , since 2006. 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 She is not yet looking at alf. She hastwo sons in addition to Loren. Socioeconomic factors: Samantha reports having no concerns regarding income, financial stability, or insurance coverage at this time. Adjustment to diagnosis and/or psychosocial concerns: We review CBP goal of reducing logistical barriers of attending appointments and connecting patients with supports to reduce/cope with stress associated with breast cancer diagnosis and treatment. Examples given include resources for any issues that may present as barriers to care, such as transportation, financial stress, and emotional distress. At this time Samantha reports no urgent psychosocial concerns. She understands from discussion with Dr. Hirsch that next steps include ultrasound of lymph node, and at this time anticipating lumpectomy. Samantha is knowledgeable about diagnosis and self-sufficient, approaching diagnosis with practical attitude. She expresses some concern about how her is doing, noting that he tends to be quiet about his emotions and he hasn't said much about this. Loren will accompany Samantha to appointments; arely goes to [facility] so they are fine traveling here for treatment, as it gives them a chanceto visit. Summary: Samantha today denies having any concerns regarding income/finances, insurance, transportation,or basic needs that could present barriers to her participation with treatment. She has good knowledge of social work services outlined in our discussion today and has my contact information. She understands I will be available to her throughout course of treatment and agrees to reach out as needed. She signs designation of personal healthcare sales representative form for Loren and I'm able to forward this to records for upload into her chart. Completed today: Psychosocial assessment Care Coordination Minoo Landrum (Stephanie) [facility] Comprehensive Breast Program [facility] Pager #[phone] documented in this encounter Plan of Treatment Upcoming Encounters Date Type Department Care Team (Late st Contact Info) Description 01/09/2024 2:20 PM EST TH Visit (TeleHealth) Hematology and Oncology at [place] [phone] Kati Burnette MD [facility] DR HEMATOLOGY [place] [address] 01/24/2024 9:30 AM EST Appointment XRay at [address] [place] [phone] Jimmy Swann MD [facility] [place] [address] 01/24/2024 11:00 AM EST Office Visit Pain and Spine Center at [place] [phone] Regulo Wang PA [facility] [place] [address] 01/24/2024 2:45 PM EST Appointment [place] [phone] 01/24/2024 3:45 PM EST Office Visit General Surgery at [place] [phone] Caitlyn Hirsch MD [facility] [place] [address] 03/20/2024 9:00 AM EST Office Visit Hematology [place] [address] Ericka Forrest, [facility] DR [place] [address] 07/29/2024 2:00 PM EDT Office Visit Radiation Oncology at [address] [phone] Kasie Marte MD [facility] [place] [address] documented as of this encounter Visit Diagnoses Not on filedocumented in this encounter Care Teams Technical Sales Director Relationship Specialty Start Date End Date Haylee Baptiste MD [address] [place] [address] PCP - General 01/21/10 documented as of this encounter
--- OUTSIDE RECORDS SUMMARY | 2023-12-15 12:36 | XMS_ITS | Encounter Summary ---
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, estrogen receptor positive Kinjal Pete MD [facility] DR HEMATOLOGY/[place] [address] [facility] Hem Onc [address] [place] [address] Referral ID Status Reason Start Date Expiration Date Visits Requested Visits Authorized [id number] Authorized Consult, Test & Treat 08/08/2023 08/07/2024 1 1 Reason for Visit * Reason Comments Establish Care * Consultation (Routine) - Closed Specialty Diagnoses / Procedures Referred By Mike jalloh Referred To Contact Hematology and Oncology Diagnoses Breast cancer S/P L PART MAST SURG 07/18 (dc) Procedures NEW PATIENT Caitlyn Hirsch MD [facility] [place] [address] Kati Burnette MD [facility] DR HEMATOLOGY [place] [address] Referral ID Status Reason Start Date Expiration Date Visits Re quested Visits Authorized [id number] Closed 08/08/2023 08/07/2024 1 1 Encounter Details Date Type Department Care Team (Laure st Contact Info) Description 08/08/2023 3:00 PM EDT Office Visit Hematology and Oncology at [facility] [place] [address] Kati Burnette MD [facility] [address] HEMATOLOGY [place] [address] Malignant neoplasm of upper-inner quadrant of left [...] from your doctor or pharmacy? Never 08/01/2023 [facility] Utilities Answer Date Recorded In the past 12 months has [facility] electric, gas, oil, or water company threatened [...] in a intermediate (including now)? No 08/01/2023 DH IPV Inpatient [...] Sign Reading Time Taken Comments Blood Pressure 98/63 08/08/2023 2:54 PM EDT Pulse 80 08/08/2023 2:54 PM EDT Temperature 36.4 ??C (97.5 ??F) 08/08/2023 2:54 PM ED T Respiratory Rate 16 08/08/2023 2:54 PM EDT Oxygen Saturation 100% 08/08/2023 2:54 PM EDT Inhaled Oxygen Concentration - - Weight 73.2 kg (161 lb 6 oz) 08/08/2023 2:54 PM EDT Height 159 cm (5' 2.6) 08/08/2023 2:54 PM EDT Body Mass Index 28.95 08/08/2023 2:54 PM EDT documented in this encounter Patient Instructions * Patient Instructions* Kinjal Pete MD - 08/08/2023 3:00 PM EDT documented in this encounter Progress Notes * Kinjal Pete MD - 08/08/2023 3:00 PM EDT Images from the original note were not included. Nallely Velazquez is a 68 y.o. y.o. female from [place], [place] (~1hr away). 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 She is referred by Caitlyn Hirsch MD [facility] [place] [address] She is here by herself.. came straight from work. Records were reviewed which included imaging ( mammogram, US, MRI, PET/CT, Ultrasounds that were non breast, CTs, ), surgical reports, pathology reports and physician notes. In total approximately 30pages of prior records were reviewed prior to today's appointment. Breast Cancer History as follows: 05/30/2023-diagnostic mammogram and ultrasound Second read by [facility] 06/01/2023 Right breast: Normal and unchanged Left breast: 1.3 cm spiculated mass within the left breast 12:00, 9 cm from the nipple. Ultrasound showed an irregular hypoechoic mass with echogenic rind, 1.8 cm consistent with mammographic mass onthe left, 11:00, 7 centimeter from the nipple. Stable subcentimeter retroareolar mass, present for 12 years, benign. Axilla: A single morphologically normal node measuring 1.8 cm. BI-RADS Category 5. 06/05/2023-left breast core needle biopsy Invasive ductal carcinoma with focal lobular features, intermediate grade, measuring at least 13 mm. LVI negative. DCIS focal intermediate grade, solid pattern without comedonecrosis. Microcalcifications associated with invasive carcinoma. ER strongly positive greater than 95%. DC strongly positive greater than 95%. HER2 negative by FISHwith ratio equal to 1.0, average number HER2 signals per cell equal to 2.0. 06/08/2023 MRI breast with and without contrast bilateral Left breast: The known malignancy is 3.0 x 3.0 x 1.3 cm irregular mass with spiculated margins in the upper inner quadrant at 11:00, 7 cm from the nipple. Biopsy clip is seen. No other concerning masses. Right breast: No morphologic abnormalities or areas of abnormal enhancement. Axilla: There is a solitary 1.8 cm prominent level 1 left axillary lymph node. There is a focal cortical bulge. No other abnormal findings. Left axillary biopsy was considered. 06/21/2023-ultrasound axilla, left Normal left axillary lymph nodes. No biopsy was indicated. 07/19/2023-left breast partial mastectomy, sentinel lymph node biopsy. Invasive ductal carcinoma with lobular features, grade 2, 1.7 cm. DCIS present negative for EIC. Solid pattern, grade 2, necrosis present (expansive comedo necrosis) LVI negative All margins negative, greater than 2 mm from invasive carcinoma and DCIS. 0/2 lymph nodes. Of note, a 3.2 cm mass was identified grossly however included areas of fibrosis and fibroadenomatous change. The largest span of invasive carcinoma is 1.7 cm. In summary, Ms. Velazquez has a stage IA (pT1c N0) left luminal breast cancer diagnosed in May 2023, status post breast conserving surgery. Oncotype pending. RT at [facility] planned. EOD: Labs 06/08/2023: WBC mildly elevated, Cr elevated 1.28 (baseline 1.07), alk phos 156 (no baseline) Past Medical History: Diagnosis Date CAD (coronary [...] Left 09/27/2018 Justin De La Cruz MD [facility] INTERVENTIONL RAD MAMMO CLIP PLACEMENT LEFT Left 07/19/2023 Mammo Magseed Placement Left 07/19/2023 Dorothy Hammond MD [facility] RAD MAMMOGRAPHY MAMMO US BIOPSY LEFT Left 06/05/2023 Mammo Us Biopsy Left 06/05/2023 Dorothy Hammond MD [facility] RAD MAMMOGRAPHY PRO ANTERIOR INSTRUMENTATION 2-3 VERTEBRAL SEGMENTS Midline 01/18/2023 ANT. SPINAL INSTRUMENTATION, 2-3 VERTEBRA, SEGMENTED (WRVU 11.94) performed by Jimmy Swann MD at [facility] MAIN OR PRO ARTHRODESIS, ANT INTERBODY,DECOMPRESSION; CERVICAL BELOW C2 Midline 01/18/2023 ARTHRODESIS, ANT INTERBODY,DECOMPRESSION; CERVICAL BELOW C2 (WRVU 25) performed by Jimmy Swann MD at [facility] MAIN OR PRO BX/REMV, LYMPH NODE, DEEP AXILL Left 07/19/2023 BIOPSY OR EXCISION OF LYMPH NODE(S), OPEN, DEEP AXILLARY NODE(S) (WRVU 6.43) performed by Caitlyn Hirsch MD at [facility] OSC PRO INSERT BIOMCHN DEV INTERVERTEBRAL DSC SPC W/ARTHRD Midline 01/18/2023 INSERTION INTERBODY BIOMECH DEV TO INTERVEBRAL DISC SPACE, EA INTERSPACE (WRVU 4.25) performed by Jimmy Swann MD at [facility] MAIN OR PRO INTRAOP SENTINEL LYMPH ID W/DYE INJECTION Left 07/19/2023 INTRAOPERATIVE ID (MAPPING) SENTINEL LYMPH NODE,INCLUDES INJECTION (WRVU 2.5) performed by Cailtyn Hirsch MD at [facility] OSC PRO MASTECTOMY PARTIAL Left 07/19/2023 MASTECTOMY PARTIAL (WRVU 10.13) performed by Caitlyn Hirsch MD at [facility] OSC MEDS: ALL: Allergies Allergen Reactions [...] wants to slow down; home health in [facility] Living situation: with her Exercise: walking [...] other systems reviewed and are negative. Physical Exam Vitals reviewed. Constitutional: General: She is not in acute distress. Appearance: Normal appearance. She is normal weight. She is not ill-appearing. HENT: Head: Normocephalic and atraumatic. Nose: No congestion. Mouth/Throat: Mouth: Mucous membranes are moist. Pharynx: Oropharynx is clear. Eyes: Extraocular Movements: Extraocular movements intact. Conjunctiva/sclera: Conjunctivae normal. Pupils: Pupils are equal, round, and reactive to light. Cardiovascular: Rate and Rhythm: Normal rate and regular rhythm. Heart sounds: No murmur heard. Pulmonary: Effort: Pulmonary effort is normal. Breath sounds: Normal breath sounds. Chest: Breasts: Breast swelling (large firm area of swelling in the breast tissue above the incision site?seroma) and tenderness present. Right: No mass or skin change. Abdominal: General: Abdomen is flat. Palpations: Abdomen is soft. There is no mass. Musculoskeletal: General: No swelling. Normal range of motion. Lymphadenopathy: Cervical: No cervical adenopathy. Skin: General: Skin is warm and dry. Neurological: General: No focal deficit present. Mental Status: She is alert and oriented to person, place, and time. Psychiatric: Mood and Affect: Mood normal. Behavior: Behavior normal. A/P Ms. Velazquez has a stage IA (pT1c N0) left luminal breast cancer diagnosed in May 2023, status post breast conserving surgery. Oncotype pending. RT at [facility] planned - she may omit RT if her oncotype is <18. Today we discussed the diagnosis of breast cancer as it evolves from atypia to DCIS and then invasive cancer. We explained that given the invasive nature she is at risk for the cancer coming back somewhere else in her body (metastatic recurrence). Her individual risk is best estimated using the Oncotype test. This test measures expression of 21 genes in the tumor and produces a score from 0- 100. If her score is 25 or less, she would be a good candidate for endocrine monotherapy. If her score is26 or higher, chemotherapy would be beneficial to reduce her risk of recurrence. We discussed treatment with aromatase inhibitors and tamoxifen. Ais are slightly more efficacious with 2.4% less recurrences over 10 years compared with tamoxifen. The side effects of Ais include arthalgia, vaginal dryness, bone loss. Tamoxifen can cause blood clots and uterine cancer. Nallely expressed understanding and had an opportunity to ask questions which were answered to her stated satisfaction. I recommend the following: Await oncotype - if score 25 or less will recommend endocrine therapy Telehealth in 2 weeks to wrap up recommendations May convert to in-person if oncotype is high DEXA scan Discuss bisphosphonates at next visit FCP referral The above plan was discussed with my attending, Dr. Burnette. Kinjal Pete MD Heme/Onc Fellow 07/30/23 * Kati Burnette MD - 08/08/2023 3:00 PM EDT I have seen and examined the patient in person and reviewed the Fellow's above history and I agree with the details as written. The assessment and plan were formulated in discussion with me and I agree with them as documented. Briefly, Nallely Velazquez is a 68 y.o. female with a stage 1 luminal breast cancer on the left here jose guadalupe opinion regarding the next step in her care. 2nd read screening MMG/US from 05/26/23 lMMG/US BIRADS 5: left breast [address] WNL 06/08/2023: MRI breasts: 11:oc: 3 cm mass with 1. [address] with cortical bulge. No other Lns and right normal 2nd look US on left: normal LN. 06/05/2023: left breast biopsy: Path: IDC with lobular features No LVI ER>95 DC > 95 HER 2 keenan non amplified 07/19/2023 : LLE + SLNB ( 0/) Path: IDC with lobular features T= 1.7 cm DCIS ADH Neg margin Next steps: Oncootype pending Needs dexa. Might need Davis followed by AI as a switching strategy as likely has low bone density by history Mentioned adjuvant bisphosphonate. documented in this encounter Plan of Treatment Upcoming Encounters Date Type Department Care Team (Late st Contact Info) Description 01/09/2024 2:20 PM EST TH Visit (TeleHealth) Hematology and Oncology at [place] [phone] Kati Burnette MD [facility] DR HEMATOLOGY [place] [address] 01/24/2024 9:30 AM EST Appointment XRay at [address] Jimmy Swann MD [facility] [place] [address] 01/24/2024 11:00 AM EST Office Visit Pain and Spine Center at [address] Regulo Wang PA [facility] [place] [address] 01/24/2024 2:45 PM EST Appointment Mammography at [place] [phone] 01/24/2024 3:45 PM EST Office Visit General Surgery at [place] [phone] Caitlyn Hirsch MD [facility] [place] [address] 03/20/2024 9:00 AM EST Office Visit [place]ology [place] [phone] Ericka Forrest, [facility] DR HEMATOLOGY [place] [address] 07/29/2024 2:00 PM EDT Office Visit Radiation Oncology at [address] [phone] Kasie Marte MD [facility] [place] [address] Scheduled Referrals Name Type Priority Associated Diagnoses Orde r Schedule Referral to Familial Cancer Program (Genetics) Outpatient Referral Routine Malignant neoplasm of upper-inner quadrant of left breast in female, estrogen receptor positive Ordered: 08/08/2023 documented as of this encounter Visit Diagnoses Diagnosis Malignant neoplasm of upper-inner quadrant of left breast in female, estrogen receptor positive documented in this encounter Care Teams Junior Software Developer Relationship Specialty Start Date End Date Haylee Baptiste MD [address] [place] [address] PCP - General 01/21/10 documented as of this encounter
--- OUTSIDE RECORDS SUMMARY | 2023-12-15 12:36 | XMS_ITS | Encounter Summary ---
Author Organization [facility] Address [facility] [place] [address] Care Team Providers Care Process Mechanic Name Role Phone Haylee Baptiste MD Primary Care Provider [phone] Reason for Visit * Reason Comments Follow-up Encounter Details Date Type Department Care Team (Late st Contact Info) Description 08/09/2023 3:15 PM EDT Office [place] [address] Caitlyn Hirsch MD [facility] [place] [place] [address] Malignant neoplasm of upper-inner quadrant of left [...] your doctor or pharmacy? Never 08/01/2023 [facility] Utilities Answer Date Recorded In the [...] any time in the past 12 m [facility], were you homeless or living in a half-way (including now)? No 08/01/2023 [facility] IPV Inpatient [...] Sign Reading Time Taken Comments Blood Pressure 124/61 08/09/2023 2:55 PM EDT Pulse 77 08/09/2023 2:55 PM EDT Temperature 36.1 ??C (96.9 ??F) 08/09/2023 2:55 PM ED T Respiratory Rate 16 08/09/2023 2:55 PM EDT Oxygen Saturation 99% 08/09/2023 2:55 PM EDT Inhaled Oxygen Concentration - - Weight 73 kg (161 lb) 08/09/2023 2:55 PM EDT Height 159 cm (5' 2.6) 08/09/2023 2:55 PM EDT Body Mass Index 28.89 08/09/2023 2:55 PM EDT documented in this encounter Progress Notes * Caitlyn Hirsch MD - 08/09/2023 3:15 PM EDT BREAST SURGICAL ONCOLOGY Nallely Velazquez is a 68 y.o. woman s/p left partial mastectomy and left SLNB on 07/19/23 who is here today for routine postoperative visit. SUBJECTIVE: Patient reports doing well overall, and has no complaints. Has some soreness under her arm, but has not needed medication. She denies any new symptoms such as fever, wound problems, or drainage. I reviewed her pathology report with her and gave her a copy. OBJECTIVE: AFVSS General: She is a well-developed, and well-nourished female in no apparent distress, alert and oriented x3. Breast exam: A targeted left breast exam was performed. Incision: clean, dry, intact with no drainage, erythema, or hematoma, small seroma note at the lumpectomy site, non-tender. Axillary incision is clean, dry, intact, with no swelling or drainage. PATHOLOGY A - Left breast, partial mastectomy: - Invasive ductal carcinoma with lobular features (see Synoptic Report and Discussion) - Ductal carcinoma in-situ - Atypical ductal hyperplasia - Fibroadenomatous change - Biopsy site changes B - Left breast, new anterior/superior margin, excision: - Benign breast tissue C - Left breast, new medial margin, excision: - Benign breast tissue D - Left axillary sentinel node #1 (2563), excision: - One lymph node, no malignancy identified (0/1) E - Left axillary sentinel node #2 (background 3), excision: - One lymph node, no malignancy identified (0/1) F - Left breast, new deep margin, excision: - Benign fibroadipose tissue SYNOPTIC Specimen Procedure: Excision (less than total mastectomy) Specimen Laterality: Left Tumor Histologic Type: Invasive ductal carcinoma with lobular features Histologic Grade (Stas Histologic Score): Glandular (Acinar) / Tubular Differentiation: Score 3 Nuclear Pleomorphism: Score 2 Mitotic Rate: Score 1 Overall Grade: Grade 2 (scores of 6 or 7) Tumor Size: 17 Millimeters (mm) Ductal Carcinoma In Situ (DCIS): Present - Negative for extensive intraductal component (EIC) Architectural Patterns: Solid Nuclear Grade: Grade II (intermediate) Necrosis: Present, central (expansive comedo necrosis) Lymphatic and / or Vascular Invasion: Not identified Treatment Effect in the Breast: No known presurgical therapy Margins Margin Status for Invasive Carcinoma: All margins negative for invasive carcinoma Distance from Invasive Carcinoma to Closest Margin: All margins >2 mm Margin Status for DCIS: All margins negative for DCIS Distance from DCIS to Closest Margin: Greater than 2 mm SYNOPTIC Closest Margin(s) to DCIS: All margins Regional Lymph Nodes Regional Lymph Node Status: All regional lymph nodes negative for tumor Total Number of Lymph Nodes Examined (sentinel and non-sentinel): 2 Number of [place] Nodes Examined: 2 pTNM Classification (AJCC 8th Edition) pT Category: pT1c pN Category: pN0 N Suffix: (sn) ER, UT, and HER2 studies (performed on prior biopsy, [id number]): ER: Positive (>95%, strong) UT: Positive (>95%, strong) HER2 FISH: Negative DISCUSSION Although a 3.2 cm mass was identified grossly, this microscopically includes areas of dense fibrosis and fibroadenomatous change. The largest microscopic span of invasive carcinoma is 1.7 cm, which correlates with the mammographic and ultrasound findings. In Specimen A, satellite foci of invasive carcinoma are seen extending towards the red-inked medialmargin (<1 mm to the margin). No definite carcinoma is seen in the additional new medial margin (Specimen C); all final margins for invasive and in- situ are carcinoma are >2 mm. ASSESSMENT: Nallely is here for a postoperative check-up. Overall, she is doing well. I reviewed her pathology report with her and gave her a copy. Her cancer has been resected to negative margins and lymph nodes were negative. She is healing well from surgery. She already saw radiation oncology and is scheduled to see medical oncology to discuss adjuvant therapy. PLAN: - Follow-up with me in 6 months with left diagnostic mammogram to serve as a new baseline - We will coordinate the following appointments for her: Medical oncology - Dr. Burnette on 08/07 Radiation oncology - saw Dr. Marte on 07/30 Caitlyn Hirsch MD 08/09/2023 documented in this encounter Plan of Treatment Upcoming Encounters Date Type Department Care Team (Late st Contact Info) Description 01/09/2024 2:20 PM EST TH Visit (TeleHealth) Hematology and Oncology at [place] [phone] Kati Burnette MD [facility] HEMATOLOGY [place] [address] 01/24/2024 9:30 AM EST Appointment XRay at [address] [place] [phone] Jimmy Swann MD [facility] [place] [address] 01/24/2024 11:00 AM EST Office Visit Pain and Spine Center at [place] [phone] Regulo Wang PA [facility] [place] [address] 01/24/2024 2:45 PM EST Appointment Mammography at [address] 01/24/2024 3:45 PM EST Office Visit General Surgery at [place] [phone] Caitlyn Hirsch MD [facility] [place] [place] [address] 03/20/2024 9:00 AM EST Office Visit Hematology [place] [phone] Ericka Forrest, [facility] [address] [place] [address] 07/29/2024 2:00 PM EDT Office Visit Radiation Oncology at [address] [address] Kasie Marte MD [facility] [place] [address] Scheduled Orders Name Type Priority Associated Diagnoses Orde r Schedule Mammo Diagnostic Without Cad Left Imaging Routine Malignant neoplasm of upper-inner quadrant of left breast in female, estrogen receptor positive Expected: 02/09/2024, Expires: 02/08/2025 documented as of this encounter Visit Diagnoses Diagnosis Malignant neoplasm of upper-inner quadrant of left breast in female, estrogen receptor positive documented in this encounter Care Teams Process Mechanic Relationship Specialty Start Date End Date Haylee Baptiste MD [address] [place] [address] PCP - General 01/21/10 documented as of this encounter
--- OUTSIDE RECORDS SUMMARY | 2023-12-15 12:36 | XMS_ITS | Encounter Summary ---
Author Organization [facility] [address] Care Team Providers Care Principal Web Developer Name Role Phone Haylee Baptiste MD Primary Care Provider [phone] Reason for Referral * Consultation (Routine) - Closed Specialty Diagnoses / Procedures Referred By Mike jalloh Referred To Contact Radiation Oncology Diagnoses Malignant neoplasm of upper-inner quadrant of left breast in female, estrogen receptor positive Procedures Simulation for Radiation Therapy Planning Kasie Marte MD [facility] [place] [address] [facility] Rad Onc Office [address] [place] [phone] Referral ID Status Reason Start Date Expiration Date V isits Requested Visits Authorized [id number] Closed Consult, Test & Treat 07/31/2023 07/30/2024 21 21 Reason for Visit * Reason Comments Radiation Consult * Consultation (Routine) - Closed Specialty Diagnoses / Procedures Referred By Mike t Referred To Contact Radiation Oncology Diagnoses Breast cancer Procedures S/P L PART MAST SURG 07/18 Caitlyn Hirsch MD [facility] [place] [address] [facility] Rad Onc Office [address] [place] [phone] Referral ID Status Reason Start Date Expiration Date Visits Re quested Visits Authorized [id number] Closed 06/29/2023 06/28/2024 1 1 Encounter Details Date Type Department Care Team (Late st Contact Info) Description 07/31/2023 9:00 AM EDT Office Visit Radiation Oncology at [address] [address] Kasie Marte MD [facility] [place] [address] Malignant neoplasm of upper-inner quadrant of left [...] any time in the past 12 m [facility], were you homeless or [...] Sign Reading Time Taken Comments Blood Pressure 119/62 07/31/2023 8:41 AM EDT Pulse 84 07/31/2023 8:41 AM EDT Temperature 37.1 ??C (98.8 ??F) 07/31/2023 8:41 AM ED T Respiratory Rate 16 07/31/2023 8:41 AM EDT Oxygen Saturation 98% 07/31/2023 8:41 AM EDT Inhaled Oxygen Concentration - - Weight 72.2 kg (159 lb 3.2 oz) 07/31/2023 8:41 A M EDT Height - - Body Mass Index 29.11 06/14/2023 8:25 AM EDT documented in this encounter Patient Instructions * Patient Instructions* Kasie Marte MD - 07/31/2023 9:00 AM EDT Someone will call you to schedule Ctsimulation. If Dr. Burnette obtains Oncotype DX & result is <= 18, you may be eligible for enrollment on study evaluating radiotherapy omission. documented in this encounter Progress Notes * Maira Harman RN - 07/31/2023 9:00 AM EDT RADIATION ONCOLOGY NURSING INITIAL NURSING ASSESSMENT IDENTIFICATION: Nallely Velazquez is a 68 y.o. year-old female with left breast cancer. PRESENTING SYMPTOMS/CHIEF COMPLAINT: breast cancer NPW REVIEW OF SYSTEMS: Review of Systems - Oncology - negative IN THE PAST 12 MONTHS HAVE YOU: Fallen more than one time? No Injured yourself as result of the fall? No Experienced difficulty with walking/problems with balance? No Do you use any assistive devices? No Any history of collagen vascular diseases: No Any Implanted Devices/Hardware: No If yes please put alert in ARIA patient summary Prior Radiotherapy: No Prior Chemotherapy: No Prior Hormone Therapy: No Other: Patient denies history of Scleroderma and Lupus LEARNING ASSESSMENT REVIEWED: Yes ADVANCED DIRECTIVE: Not discussed today. PAIN ASSESSMENT: [0] out of 10 *eD-H Adult PCS Flow Sheet if 4 or above SOCIAL ASSESSMENT: See [facility] social assessment information entered. 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 Would need to have appointments first thing in the morning or in the evening. Referrals/Interventions: toll test desk worker visit on day per routine. RADIATION SPECIFIC TEACHING:Will provide the following information on day [facility] Radiation Therapy and You Site specific teaching : Other: PLAN: Per Dr. Marte * Kasie Marte MD - 07/31/2023 9:00 AM EDT Images from the original note were not included. CC: Referred by Dr. Hirsch for eval for xrt for breast ca. HPI: Nallely is a 68 y/o f who presented w/L breast abnlty on screening mmg. DH interp 05/26/23 B screening mmg, 05/30/23 dx'ic L mmg & 05/30/23 L breast US: Highly suspiciousL breast mass @ 11-12:00. 06/05/23 US guided core needle bx 18 mm L breast mass @ 11:00, 7 cm from nipple. Path: IDC w/focal lobular features, ER+MO+, Her2 neg. 06/08/23 MRI B breast: Left Breast: Known left breast malignancy is a 3.0 cm irregular mass in the upper inner left breast at 11:00, 7 cm from the nipple. The biopsy marker clip is at the mass. No additional lesions in the left breast. Single prominent left axillary lymph node. Right Breast: No MRI evidence of malignancy. No evidence of right axillary adenopathy. 06/14/23 Dr. Hirsch exam w/palpable 3 cm density upper inner L breast, no adenopathy. 06/21/23 US L axilla: Multiple morphologically normal left axillary lymph nodes were identified. No sonographic abnormality was detected. 07/19/23 L breast lumpectomy inclusive of pec fascia, incision @ superior areolar border, SNB. Path: IDC w/lobular features, gr 2, 17 mm, DCIS, RM neg, 2 sentinel lymph nodes (both neg, 0/2), pT1c pN0. DISCUSSION: satellite foci of invasive ca S: Healing well. No pain. No hand/arm swelling. ROM arms around shoulders normal. Energy level improving as becomes further out from surgery. Past Medical History: Diagnosis Date CAD (coronary [...] Left 09/27/2018 Justin De La Cruz MD [facility] INTERVENTIONL RAD MAMMO CLIP PLACEMENT LEFT Left 07/19/2023 Mammo Magseed Placement Left 07/19/2023 Dorothy Hammond MD [facility] RAD MAMMOGRAPHY MAMMO US BIOPSY LEFT Left 06/05/2023 Mammo Us Biopsy Left 06/05/2023 Dorothy Hammond MD [facility] RAD MAMMOGRAPHY PRO ANTERIOR INSTRUMENTATION 2-3 VERTEBRAL SEGMENTS Midline 01/18/2023 ANT. SPINAL INSTRUMENTATION, 2-3 VERTEBRA, SEGMENTED (WRVU 11.94) performed by Jimmy Swann MD at [facility] MAIN OR PRO ARTHRODESIS, ANT INTERBODY,DECOMPRESSION; CERVICAL BELOW C2 Midline 01/18/2023 ARTHRODESIS, ANT INTERBODY,DECOMPRESSION; CERVICAL BELOW C2 (WRVU 25) performed by Jimmy Swann MD at [facility] MAIN OR PRO BX/REMV, LYMPH NODE, DEEP AXILL Left 07/19/2023 BIOPSY OR EXCISION OF LYMPH NODE(S), OPEN, DEEP AXILLARY NODE(S) (WRVU 6.43) performed by Caitlyn Hirsch MD at [facility] OSC PRO INSERT BIOMCHN DEV INTERVERTEBRAL DSC SPC W/ARTHRD Midline 01/18/2023 INSERTION INTERBODY BIOMECH DEV TO INTERVEBRAL DISC SPACE, EA INTERSPACE (WRVU 4.25) performed by Jimmy Swann MD at [facility] MAIN OR PRO INTRAOP SENTINEL LYMPH ID W/DYE INJECTION Left 07/19/2023 INTRAOPERATIVE ID (MAPPING) SENTINEL LYMPH NODE,INCLUDES INJECTION (WRVU 2.5) performed by Caitlyn Hirsch MD at [facility] OSC PRO MASTECTOMY PARTIAL Left 07/19/2023 MASTECTOMY PARTIAL (WRVU 10.13) performed by Caitlyn Hirsch MD at [facility] OSC Your Medications Accurate as of July 31, 2023 9:04 AM. If you have any questions, ask your nurse or doctor. Continued medications with new dosing Dose Details dulaglutide 4.5 mg/0.5 mL Pen Injector Commonly known as: Trulicity Inject 0.5 mLs subcutaneously once a week. Indications: type 2 diabetes mellitus What changed: additional instructions 4.5 mg Quantity: 6 mL Refills: 3 HumuLIN R U-500 (Conc) Kwikpen 500 unit/mL [...] inhaler (HFA) Every 4 hours. Refills: 0 EPINEPHrine 0.3 mg/0.3 mL Auto-Injector Inject 0.3 [...] by mouth daily. 20 mg Refills: 0 senna-docusate 8.6-50 mg Tablet Commonly [...] Generic drug: ondansetron 4 mg Refills: 0 P&Shx: Never smoker. 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 Physical Exam Constitutional: General: She is not in acute distress. Comments: BP 119/62 (Patient Position: Sitting) Pulse 84 Temp 37.1 ??C (98.8 ??F) (Temporal) Resp 16 Wt 72.2 kg (159 lb 3.2 oz) SpO2 98% BMI 29.11 kg/m?? HENT: Head: Normocephalic. Eyes: General: No scleral icterus. Right eye: No discharge. Left eye: No discharge. Extraocular Movements: Extraocular movements intact. Conjunctiva/sclera: Conjunctivae normal. Pulmonary: Effort: Pulmonary effort is normal. No respiratory distress. Breath sounds: No stridor. Chest: Breasts: Right: No inverted nipple, mass, nipple discharge, skin change or tenderness. Left: No inverted nipple, mass, nipple discharge, skin change or tenderness. Abdominal: General: There is no [...] Thought content normal. Judgment: Judgment normal. A: Breast ca, L, IDC w/lobular features, gr 2, ER+MO+, Her2-, s/p lumpectomy & SNB, pT1c(m) pN0. P: Discussed use of xrt to L breast to improve likelihood of cure. 20 fxs of xrt would be recommended. Possible side effects of xrt to breast discussed, w/acute/immediate side effects including: Pinkening, soreness & peeling of skin in treated area; swelling of treated breast; soreness of treated breast; cough; shortness of breath; tiredness. Acute/immediate side effects usually temporary. Late/superintendent [employer] side effects to breast discussed include: Treated breast may shrink, become firmer & sit higher on chest; achiness/stiffness of chest wall on treated side; small risk of adverse effect on heart; rib fracture on treated side; CT after xrt may show scarring w/in small volume of lung on treated side; radiotherapy associated 2nd malignancy. Risk of occurrence of late/superintendent [employer] sideeffects small. Need for CTsim prior to xrt discussed. She would like to proceed w/xrt & Ctsim will be scheduled. Dr. Yomaira chaidez for medical tx 08/08/23. Dr. Hirsch 08/09/23. Radiation tatum:Brooks protocol and Whole breast w/ tangents Radiation boost:Yes Total dose of radiation: 52.56 Gy I certify spending at least 45 mins in providing care to this patient today as reflected by the following activities: - review of patient's medical record in the chart, including interpretation of imaging, laboratory and pathologic studies referenced above - documenting the outcome of today's visit as above Addendum: 08/01/23 I called her & discussed BR007 study evaluating xrt omission in women with ER+, Her2- stage I breast ca with Oncotype DX <=18; she appears to have interest in possibly enrolling. Anticipate Dr. Burnette will order Oncotype DX. Ctsim will be scheduled for 09/05/23 by which timeOncotype DX probably will be available. Research nurse will speak w/her about enrollment on BR007 if Oncotype DX <= 18 & Nalelly still interested. documented in this encounter Plan of Treatment Upcoming Encounters Date Type Department Care Team (Late st Contact Info) Description 01/09/2024 2:20 PM EST TH Visit (TeleHealth) Hematology [place] [address] Kati Burnette MD [facility] HEMATOLOGY [place] [address] 01/24/2024 9:30 AM EST Appointment XRay at [address] [place] [address] Jimmy Swann MD [facility] [place] [address] 01/24/2024 11:00 AM EST Office Visit Pain and Spine Center at [place] [phone] Regulo Wang PA [facility] [place] [address] 01/24/2024 2:45 PM EST Appointment [place] [address] 01/24/2024 3:45 PM EST Office [place] [address] Caitlyn Hirsch MD [facility] [place] [address] 03/20/2024 9:00 AM EST Office Visit Hematology and Oncology at [place] [phone] Ericka Forrest, [facility] DR HEMATOLOGY [place] [address] 07/29/2024 2:00 PM EDT Office Visit Radiation Oncology at [address] [phone] Kasie Marte MD [facility] [place] [address] Scheduled Orders Name Type Priority Associated Diagnoses Orde r Schedule Simulation for Radiation Therapy Planning Radiation Oncology Routine Malignant neoplasm of upper-inner quadrant of left breast in female, estrogen receptor positive Expected: 08/15/2023, Expires: 02/14/2024 documented as of this encounter Visit Diagnoses Diagnosis Malignant neoplasm of upper-inner quadrant of left breast in female, estrogen receptor positive documented in this encounter Care Teams Principal Web Developer Relationship Specialty Start Date End Date Haylee Baptiste MD [address] [place] [address] PCP - General 01/21/10 documented as of this encounter
--- OUTSIDE RECORDS SUMMARY | 2023-12-15 12:36 | XMS_ITS | Encounter Summary ---
Author Organization [facility] Address [facility] [place] [address] Care Team Providers Care Test Engine Mechanic Name Role Phone Haylee Baptiste MD Primary Care Provider [phone] Encounter Details Date Type Department Care Team (Latest Contact Info) Description 08/01/2023 Travel Social History Tobacco Use Types Packs/Day [...] from your doctor or pharmacy? Never 08/01/2023 [facility] Utilities Answer Date Recorded In the [...] any time in the past 12 m [facility], were you homeless or living in a skilled nursing (including now)? No 08/01/2023 IPV Inpatient Questions [...] TH Visit (TeleHealth) Hematology [place] [address] Kati Burnette MD [facility] [place] [address] 01/24/2024 9:30 AM EST Appointment XRay at [address] [place] [address] Jimmy Swann MD [facility] [place] [address] 01/24/2024 11:00 AM EST Office Visit Pain [place] [address] Regulo Wang PA [facility] [place] [address] 01/24/2024 2:45 PM EST [place] [address] 01/24/2024 3:45 PM EST Office [place] [address] Caitlyn Hirsch MD [facility] [place] [address] 03/20/2024 9:00 AM EST Office Visit Hematology [place] [address] Ericka Forrest [facility] DR HEMATOLOGY [place] [address] 07/29/2024 2:00 PM EDT Office Visit Radiation Oncology at [address] [phone] Kasie Marte MD [facility] [place] [address] documented as of this encounter Visit Diagnoses Not on filedocumented in this encounter Care Teams Test Engine Mechanic Relationship Specialty Start Date End Date Haylee Baptiste MD [address] [place] [address] PCP - General 01/21/10 documented as of this encounter
--- OUTSIDE RECORDS SUMMARY | 2023-12-15 12:36 | XMS_ITS | Encounter Summary ---
Author Organization [facility] Address [facility] [place] [address] Care Team Providers Care Geophysical Prospector Name Role Phone Haylee Baptiste MD Primary Care Provider [phone] Encounter Details Date Type Department Care Team (Latest Contact Info) Description 07/31/2023 Travel Social History Tobacco Use Types Packs/Day [...] doctor or pharmacy? Never 08/01/2023 [facility] Utilities Answer Date Recorded In the [...] [facility] in the [facility] were you homeless or living in a fpc (including now)? No 08/01/2023 IPV Inpatient Questions [...] TH Visit (TeleHealth) Hematology [place] [address] Kati Burnette MD [facility] HEMATOLOGY [place] [address] 01/24/2024 9:30 AM EST Appointment XRay at [address] [place] [phone] Jimmy Swann MD [facility] [place] [address] 01/24/2024 11:00 AM EST Office Visit Pain [place] [address] Regulo Wang PA [facility] [place] [address] 01/24/2024 2:45 PM EST [place] [address] 01/24/2024 3:45 PM EST Office [place] [address] Caitlyn Hirsch MD [facility] [place] [address] 03/20/2024 9:00 AM EST Office Visit [place]ematology [place] [address] Ericka Forrest [facility] DR [place] [address] 07/29/2024 2:00 PM EDT Office Visit Radiation Oncology at [address] [phone] Kasie Marte MD [facility] [place] [address] documented as of this encounter Visit Diagnoses Not on filedocumented in this encounter Care Teams Geophysical Prospector Relationship Specialty Start Date End Date Haylee Baptiste MD [address] [place] [address] PCP - General 01/21/10 documented as of this encounter
--- OUTSIDE RECORDS SUMMARY | 2023-12-15 12:36 | XMS_ITS | Encounter Summary ---
Author Organization [facility] [place] [address] Care Team Providers Care Data Support Analyst Name Role Phone Haylee Baptiste MD Primary Care Provider [phone] Encounter Details Date Type Department Care Team (Late st Contact Info) Description 06/14/2023 Patient Outreach [place]ology [place] [phone] Jack Spring, RN Social History Tobacco Use Types Packs/Day [...] needed for daily living? No 06/09/2023 [facility] Inpatient Questions Answer Date Recorded Does Anyone [...] as of this encounter Progress Notes * Jack Spring RN - 06/14/2023 8:27 AM EDT Images from the original note were not included. Comprehensive Breast Program (CBP) Nurse Navigator Note Nallely Velazquez is a 68 y.o. female with ER/ME+/HER2- left breast cancer. I met with the patient and her daughter, Loren, after her surgical oncology consultation. Samantha plans for partial mastectomy and SLN surgery. She understands Dr. Hirsch will call her after her 06/20 left ALN U/S and biopsy to review results and start the process of obtaining a surgery date. She understands we will always attempt to coordinate her post operative appts. related to her travel distance from [facility]. Loren asked about healthy lifestyle recommendations. We reviewed diet (offered Samantha a referral to one of our registered dieticians in the cancer center) and exercise. Samantha will think about meeting with one of our social media community manager and let us know of her decision. SPECIFIC TEACHIN. Breast Cancer Treatment Handbook (Qiana Pop, 2021) was sent via mail. 2. She understands she will meet with a medical oncologist and a radiation oncologist (prefers [facility]) after surgery and that [facility] will arrange these appts. as well as a follow up with Dr. Hirsch post operatively. 3. Contact phone number for questions or concerns in the immediate post- operative period. 4. Comprehensive Breast Program Binder provided. 5. Post Breast Surgery Exercises handout created by physical therapists at [facility] to begin after partial mastectomy and continue until she is back to her baseline. 6. Breast Cancer Treatment Process care map provided and reviewed. 7. Contact information for the general surgery clinic nurses was given and the doctor button cutting machine operator system explained. 8. We discussed the recommended 150 minutes of aerobic exercise and two strength training sessions per week after a breast cancer diagnosis. Twenty minutes was spent in education and providing support. She verbalized understanding of the plan of care and states all her questions were answered. Samantha has our contact information. She will schedule surgery after additional imaging/biopsy are completed. Pre-op MRI: Yes Abnormalities detected Ipsilateral (other than index lesion) Referral to familial counseling: Yes (in the future per her discussion with Dr. Hirsch) 06/13/2023 Cancer Distress Distress 3 No data to display Referrals made today Social work Samantha met with our CBP social services assistant today. JACK SPRING, RN documented in this encounter Plan of Treatment Upcoming Encounters Date Type Department Care Team (Late st Contact Info) Description 01/09/2024 2:20 PM EST TH Visit (TeleHealth) Hematology [place] [address] Kati Burnette MD [facility] HEMATOLOGY [place] [address] 01/24/2024 9:30 AM EST Appointment XRay at [address] Jimmy Swann MD [facility] [place] [address] 01/24/2024 11:00 AM EST Office Visit Pain and Spine Center at [place] [address] Regulo Wang PA [facility] [place] [address] 01/24/2024 2:45 PM EST Appointment Mammography at [place] [address] 01/24/2024 3:45 PM EST Office Visit General Surgery at [place] [address] Caitlyn Hirsch MD [facility] [place] [address] 03/20/2024 9:00 AM EST Office Visit Hematology [place] [address] Ericka Forrest, [facility] HEMATOLOGY [place] [address] 07/29/2024 2:00 PM EDT Office Visit Radiation Oncology at [address] [address] Kasie Marte MD [facility] [place] [address] documented as of this encounter Visit Diagnoses Not on filedocumented in this encounter Care Teams Data Support Analyst Relationship Specialty Start Date End Date Haylee Baptiste MD [address] [place] [address] PCP - General 01/21/10 documented as of this encounter
--- OUTSIDE RECORDS SUMMARY | 2023-12-15 12:36 | XMS_ITS | Encounter Summary ---
Author Organization [facility] Address [facility] [place] [address] Care Team Providers Care Mail Reader Name Role Phone Haylee Baptiste MD Primary Care Provider [phone] Encounter Details Date Type Department Care Team (Latest Contact Info) Description 08/08/2023 Travel Social History Tobacco Use Types Packs/Day [...] from your doctor or pharmacy? Never 08/01/2023 [facility] Utilities Answer Date Recorded In the [...] time in the past [address] [facility], were you homeless or [...] Visit (TeleHealth) Hematology [place] [address] Kati Burnette MD [facility] [place] [address] 01/24/2024 9:30 AM EST Appointment XRay at [address] [place] [phone] Jimmy Swann MD [facility] [place] [address] 01/24/2024 11:00 AM EST Office Visit Pain and [place] [address] Regulo Wang PA [facility] [place] [address] 01/24/2024 2:45 PM EST [place] [address] 01/24/2024 3:45 PM EST Office [place] [address] Caitlyn Hirsch MD [facility] [place] [address] 03/20/2024 9:00 AM EST Office Visit [place]ology [place] [address] Ericka Forrest [facility] [place] [address] 07/29/2024 2:00 PM EDT Office Visit Radiation Oncology at [address] [phone] Kasie Marte MD [facility] [place] [address] documented as of this encounter Visit Diagnoses Not on filedocumented in this encounter Care Teams Mail Reader Relationship Specialty Start Date End Date Haylee Baptiste MD [address] [place] [address] PCP - General 01/21/10 documented as of this encounter
--- OUTSIDE RECORDS SUMMARY | 2023-12-15 12:36 | XMS_ITS | Encounter Summary ---
Author Organization [facility] Address [facility] [place] [address] Care Team Providers Care Process Camera Operator Name Role Phone Haylee Baptiste MD Primary Care Provider [phone] Encounter Details Date Type Department Care Team (Latest Contact Info) Description 07/19/2023 8:12 AM EDT - 07/19/2023 9:21 AM EDT Hospital [place] [address] Caitlyn Hirsch MD [facility] [place] [address] Malignant neoplasm of left breast in female, estrogen receptor positive, unspecified site of breast Discharge Disposition: Home Social History Tobacco Use [...] on file documented as of this encounter Medications at Time of Discharge [...] daily. 03/15/2022 fluticasone propionate (Flonase) 50 mcg/actuation [place], Suspension 1 spray by Each Nare route [...] 10/26/2022 07/31/2023 documented as of this encounter Plan of Treatment Upcoming Encounters Date Type Department Care Team (Late st Contact Info) Description 01/09/2024 2:20 PM EST TH Visit (TeleHealth) [place] [address] Kati Burnette MD [facility] HEMATOLOGY [place] [address] 01/24/2024 9:30 AM EST Appointment XRay at [address] [place] [address] Jimmy Swann MD [facility] [place] [address] 01/24/2024 11:00 AM EST Office Visit Pain and Spine Center at [address] Regulo Wang PA [facility] [place] [address] 01/24/2024 2:45 PM EST Appointment Mammography at [address] 01/24/2024 3:45 PM EST Office Visit General Surgery at [address] Caitlyn Hirsch MD [facility] [place] [address] 03/20/2024 9:00 AM EST Office Visit Hematology [place] [address] Ericka Forrest, [facility] HEMATOLOGY [place] [address] 07/29/2024 2:00 PM EDT Office Visit Radiation Oncology at [address] [phone] Kasie Marte MD [facility] [place] [address] documented as of this encounter Procedures Procedure Name Priority Date/Time Associated Diagnosis Comments MAMMO [place] NODE INJECTION Routine 07/19/2023 9:14 AM EDT Malignant neoplasm of left breast in female, estrogen receptor positive, unspecified site of breast documented in this encounter Results * Mammo [place] Node Injection (07/19/2023 9:14 AM EDT) WORKSTATION [...] who have questions please contact the health healthcare science specialist that requested your imaging first. ? Electronically signed by: Dorothy Hammond MD, [facility] ([phone]), at 07/19/2023 10:18 AM Narrative 07/19/2023 10:18 [...] site of breast documented in this encounter Administered Medications Inactive Administered Medications - up to 3 most recent administrations Medication Order MAR Action Action Date Dose Rate Site technetium (Tc-99m) tilmanocept (Lymphoseek) intradermal 0.5-2 mCi 0.5-2 mCi, Intradermal, ONCE, 1 dose, On Mon07/19/23 at 0945, Radiology Contrast, Routine Given 07/19/2023 9:45 AM EDT 0.9 mCi documented in this encounter Care Teams Process Camera Operator Relationship Specialty Start Date End Date Haylee Baptiste MD [address] [place] [address] PCP - General 01/21/10 documented as of this encounter
--- OUTSIDE RECORDS SUMMARY | 2023-12-15 12:36 | XMS_ITS | Encounter Summary ---
Author Organization [facility] Address [facility] [place] [address] Care Team Providers Care Railcar Mechanic Name Role Phone Haylee Baptiste MD Primary Care Provider [phone] Encounter Details Date Type Department Care Team (Latest Contact Info) Description 07/19/2023 Travel Social History Tobacco Use Types Packs/Day [...] TH Visit (TeleHealth) Hematology and Oncology at [place] [phone] Kati Burnette MD [facility] HEMATOLOGY [place] [address] 01/24/2024 9:30 AM EST Appointment XRay at [address] [place] [phone] Jimmy wSann MD [facility] [place] [address] 01/24/2024 11:00 AM EST Office Visit Pain and Spine Center at [place] [phone] Regulo Wang PA [facility] [place] [address] 01/24/2024 2:45 PM EST Appointment Mammography at [place] [phone] 01/24/2024 3:45 PM EST Office Visit General Surgery at [place] [phone] Caitlyn Hirsch MD [facility] [place] [place] [address] 03/20/2024 9:00 AM EST Office Visit Hematology [place] [address] Ericka Forrest, [facility] DR [place] [address] 07/29/2024 2:00 PM EDT Office Visit Radiation Oncology at [address] [address] Kasie Marte MD [facility] [place] [address] documented as of this encounter Visit Diagnoses Not on filedocumented in this encounter Care Teams Railcar Mechanic Relationship Specialty Start Date End Date Haylee Baptiste MD [address] [place] [address] PCP - General 01/21/10 documented as of this encounter
--- OUTSIDE RECORDS SUMMARY | 2023-12-15 12:36 | XMS_ITS | Encounter Summary ---
Author Organization [facility] Address [facility] [place] [address] Care Team Providers Care Form Tamper Name Role Phone Haylee Baptiste MD Primary Care Provider [phone] Encounter Details Date Type Department Care Team (Late st Contact Info) Description 08/01/2023 Orders [place] [address] Niki Rich MD [facility] [place] [address] Social History Tobacco Use Types Packs/Day Years [...] from your doctor or pharmacy? Never 08/01/2023 [facility] Utilities Answer Date Recorded In [...] any time in the past 12 m [facility], were you homeless or living in [...] TH Visit (TeleHealth) Hematology [place] [address] Kati Burnette MD [facility] HEMATOLOGY [place] [address] 01/24/2024 9:30 AM EST Appointment XRay at [address] [place] [address] Jimmy Swann MD [facility] [address] 01/24/2024 11:00 AM EST Office Visit Pain [place] [address] Regulo Wang PA [facility] [place] [address] 01/24/2024 2:45 PM EST Appointment [place] [address] 01/24/2024 3:45 PM EST Office Visit General Surgery at [address] Caitlyn Hirsch MD [facility] [place] [address] 03/20/2024 9:00 AM EST Office Visit Hematology and Oncology at [place] [phone] Ericka Forrest, [facility] DR HEMATOLOGY [place] [address] 07/29/2024 2:00 PM EDT Office Visit Radiation Oncology at [address] [phone] Kasie Marte MD [facility] DR [place] [address] documented as of this encounter Visit Diagnoses Not on filedocumented in this encounter Care Teams Form Tamper Relationship Specialty Start Date End Date Haylee Baptiste MD [address] [place] [address] PCP - General 01/21/10 documented as of this encounter
--- OUTSIDE RECORDS SUMMARY | 2023-12-15 12:36 | XMS_ITS | Encounter Summary ---
Author Organization [facility] Address [facility] [place] [address] Care Team Providers Care Customer Marketing Assistant Name Role Phone Haylee Baptiste MD Primary Care Provider Encounter Details Date Type Department Care Team (Latest Contact Info) Description 07/19/2023 8:12 AM EDT - 07/19/2023 9:21 AM EDT Hospital En[place] [address] Caitlyn Hirsch MD [facility] [place] [address] Malignant neoplasm of left breast in female, [...] daily. 03/15/2022 fluticasone propionate (Flonase) 50 mcg/actuation [place], Suspension 1 spray by Each Nare route [...] TH Visit (TeleHealth) Hematology [place] [address] Kati Burnette MD [facility] HEMATOLOGY [place] [address] 01/24/2024 9:30 AM EST Appointment XRay at [address] [place] [phone] Jimmy Swann MD [facility] [place] [address] 01/24/2024 11:00 AM EST Office Visit Pain and Spine Center at [address] Regulo Wang PA [facility] [place] [address] 01/24/2024 2:45 PM EST Appointment Mammography at [address] 01/24/2024 3:45 PM EST Office Visit General Surgery at [address] Caitlyn Hirsch MD [facility] [place] [address] 03/20/2024 9:00 AM EST Office Visit Hematology [place] [address] Ericka Forrest, [facility] HEMATOLOGY [place] [address] 07/29/2024 2:00 PM EDT Office Visit Radiation Oncology at [address] [address] Kasie Marte MD [facility] [place] [address] documented as of this encounter Procedures Procedure Name Priority Date/Time Associated Diagnosis Comments MAMMO MAGSEED PLACEMENT LEFT Routine 07/19/2023 9:10 AM EDT Malignant neoplasm of left breast in female, estrogen receptor positive, unspecified site of breast documented in this encounter Results * Mammo Magseed Placement Left (07/19/2023 9:10 AM EDT) WORKSTATION ID [id number] 1 RAD [...] who have questions please contact the health care asst that requested your imaging first. ? Electronically signed by: Dorothy Hammond MD, [facility] ([phone]), at 07/19/2023 10:18 AM Narrative 07/19/2023 10:18 [...] MAR Action Action Date Dose Rate Site lidocaine (Xylocaine) 1% (10 mg/mL) injection 0-200 mg 0-200 mg (0-20 mL), Subcutaneous, ONCE, 1 dose, On Mon07/19/23 at 0900, Radiology Protocol Medication, Routine Given 07/19/2023 8:58 AM EDT 8 mLs documented in this encounter Care Teams Customer Marketing Assistant Relationship Specialty Start Date End Date Haylee Baptiste MD [address] [place] [address] PCP - General 01/21/10 documented as of this encounter
--- OUTSIDE RECORDS SUMMARY | 2023-12-15 12:36 | XMS_ITS | Encounter Summary ---
Author Organization [facility] Address [facility] [place] [address] Care Team Providers Care Bureau Chief Name Role Phone Haylee Baptiste MD Primary Care Provider [phone] Encounter Details Date Type Department Care Team (Late st Contact Info) Description 07/31/2023 Notes Only Hematology [place] [address] Nica Milian APRN [facility] [place] [address] Social History Tobacco Use Types Packs/Day Years [...] as of this encounter Progress Notes * Nica Milian APRN - 07/31/2023 11:02 AM EDT Oncotype request sent by Dr. Pete as below. Note for tracking. From: Kinjal Pete MD Sent: 07/30/2023 1:04 PM EDT To: Kati Burnette MD; Nica Milian APRN; * Subject: oncotype request, new patient August 07 Please submit for Oncotype testing Node status: [x ] Negative [ ] Micromets [ ] Node Positive 1-3 nodes [ ] Node Positive 4+ nodes ER [ ] Negative [x ] Positive RI [ ] Negative [ x] Positive HER2 [x ] Negative [ ] Positive Menopausal status: [ ] Pre [ x] Post [ ] Unknown Tumor size (in centimeters): 1.7cm ICD-10 code: C50.919 Do you want a specific sample tested? If so, please include specimen ID#: [id number] documented in this encounter Plan of Treatment Upcoming Encounters Date Type Department Care Team (Late st Contact Info) Description 01/09/2024 2:20 PM EST TH Visit (TeleHealth) Hematology and Oncology at [place] [phone] Kati Burnette MD [facility] DR [place] [address] 01/24/2024 9:30 AM EST Appointment XRay at [address] [place] [phone] Jimmy Swann MD [facility] [place] [address] 01/24/2024 11:00 AM EST Office Visit Pain and Spine Center at [place] [phone] Regulo Wang PA [facility] [place] [address] 01/24/2024 2:45 PM EST Appointment Mammography at [place] [phone] 01/24/2024 3:45 PM EST Office Visit General Surgery at [place] [phone] Caitlyn Hirsch MD [facility] [place] [address] 03/20/2024 9:00 AM EST Office Visit Hematology [place] [address] Ericka Forrest, [facility] [place] [address] 07/29/2024 2:00 PM EDT Office Visit Radiation Oncology at [address] [phone] Kasie Marte MD [facility] [place] [address] documented as of this encounter Visit Diagnoses Not on filedocumented in this encounter Care Teams Bureau Chief Relationship Specialty Start Date End Date Haylee Baptiste MD [address] [place] [address] PCP - General 01/21/10 documented as of this encounter
--- OUTSIDE RECORDS SUMMARY | 2023-12-15 12:36 | XMS_ITS | Encounter Summary ---
Author Organization [facility] [place] [address] Care Team Providers Care Validation Technician Name Role Phone Haylee Baptiste MD Primary Care Provider Encounter Details Date Type Department Care Team (Latest Contact Info) Description 06/21/2023 9:00 AM EDT - 06/21/2023 11:59 PM EDT Hospital En[place] [address] Dorothy Hammond MD [facility] [place] [address] Abnormal finding on breast imaging Discharge Disposition: Home Social History Tobacco Use [...] things needed for daily living? No 06/09/2023 [facility] Inpatient Questions Answer Date Recorded [...] Sig Dispensed Refills Start Date End Date dulaglutide (Trulicity) 4.5 mg/0.5 mL Pen InjectorIndications: [...] daily. 03/15/2022 fluticasone propionate (Flonase) 50 mcg/actuation [place], Suspension 1 spray by Each Nare route [...] Take 60 mg by mouth daily. 07/31/2023 losartan (Cozaar) 100 mg tablet Take 100 mg by mouth Daily. 07/05/2023 prednisoLONE acetate (Pred-Forte) 1 % Drops, Suspension Place 1 drop into the right eye as needed. 10/26/2022 07/31/2023 documented as of this encounter Plan of Treatment Upcoming Encounters Date Type Department Care Team (Late st Contact Info) Description 01/09/2024 2:20 PM EST TH Visit (TeleHealth) Hematology [place] [address] Kati Burnette MD [facility] HEMATOLOGY [place] [address] 01/24/2024 9:30 AM EST Appointment XRay at [address] [place] [address] Jimmy Swann MD [facility] [place] [address] 01/24/2024 11:00 AM EST Office Visit Pain and Spine Center at [place] [phone] Regulo Wang PA [facility] [place] [address] 01/24/2024 2:45 PM EST Appointment Mammography at [place] [phone] 01/24/2024 3:45 PM EST Office Visit General Surgery at [place] [phone] Caitlyn Hirsch MD [facility] [place] [place] [address] 03/20/2024 9:00 AM EST Office Visit Hematology and Oncology at [place] [phone] Ericka Forrest, [facility] [place] [address] 07/29/2024 2:00 PM EDT Office Visit Radiation Oncology at [address] [phone] Kasie Marte MD [facility] [place] [address] documented as of this encounter Procedures Procedure Name Priority Date/Time Associated Diagnosis Comments MAMMO US AXILLA LEFT Routine 06/21/2023 9:49 AM EDT Abnormal finding on breast imaging documented in this encounter Results * Mammo US Axilla Left (06/21/2023 9:49 AM EDT) [employer] WORKSTATION ID [id number] 1 RAD Anatomical Region Laterality Modality Breast Left Mammography Impressions 06/21/2023 10:41 AM EDT Normal left axillary lymph nodes. Left axillary lymph node biopsy was not indicated. RECOMMENDATION: Continued definitive treatment of known left breast cancer. No abnormal left axillary lymph node identified for biopsy. I have personally reviewed the image(s) and the resident's interpretation and agree with the findings, Quinton Badillo at 06/21/2023 10:41 AM Thank you for letting us participate in the care of this patient. ??If you are a health care provider and have any questions regarding this report, please contact the number below. ??For patients who have questions please contact the health nurse care manager that requested your imaging first. ? 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 Staging MRI with suspicious left axillary lymph nodes and targeted left axillary ultrasound and possible biopsy was recommended. COMPARISONS: MRI breast 06/08/2023 AREA SCANNED: LEFT axilla FINDINGS: Multiple morphologically normal left axillary lymph nodes were identified. No sonographic abnormality was detected. Dorothy Hammond MD IMG MAMMO ORDERABLES documented in this encounter Visit Diagnoses Diagnosis Abnormal finding on breast imaging Other (abnormal) findings on radiological examination of breast documented in this encounter Care Teams Validation Technician Relationship Specialty Start Date End Date Haylee Baptiste MD [address] [place] [address] PCP - General 01/21/10 documented as of this encounter
--- OUTSIDE RECORDS SUMMARY | 2023-12-15 12:36 | XMS_ITS | Encounter Summary ---
Author Organization [facility] Address [facility] [place] [address] Care Team Providers Care Fire Extinguisher Repairer Inspector Name Role Phone Haylee Baptiste MD Primary Care Provider [phone] Encounter Details Date Type Department Care Team (Latest Contact Info) Description 06/14/2023 Travel Social History Tobacco Use Types Packs/Day [...] TH Visit (TeleHealth) Hematology and Oncology at [place] [phone] Kati Burnette MD [facility] [address] [place] [address] 01/24/2024 9:30 AM EST Appointment XRay [place] [address] [place] [address] Jimmy Swann MD [facility] [place] [address] 01/24/2024 11:00 AM EST Office Visit Pain and Spine Center at [place] [address] Regulo Wang PA [facility] [place] [address] 01/24/2024 2:45 PM EST Appointment Mammography at [place] [phone] 01/24/2024 3:45 PM EST Office Visit General Surgery at [address] Caitlyn Hirsch MD [facility] [place] [place] [address] 03/20/2024 9:00 AM EST Office Visit Hematology and Oncology at [place] [phone] Ericka Forrest, [facility] [place] [address] 07/29/2024 2:00 PM EDT Office Visit Radiation Oncology at [address] [phone] Kasie Marte MD [facility] [place] [address] documented as of this encounter Visit Diagnoses Not on filedocumented in this encounter Care Teams Fire Extinguisher Repairer Inspector Relationship Specialty Start Date End Date Haylee Baptiste MD [address] [place] [address] PCP - General 01/21/10 documented as of this encounter
--- OUTSIDE RECORDS SUMMARY | 2023-12-15 12:36 | XMS_ITS | Encounter Summary ---
Author Organization [facility] [place] [address] Care Team Providers Care Auto Body Repair Technician Name Role Phone Haylee Baptiste MD Primary Care Provider [phone] Reason for Visit * Auth/Cert (Routine) Specialty [...] MODIFIER SENTINEL NODE EXCISION Caitlyn Hirsch MD [facility] [place] [address] [facility] Referral ID Status Reason Start Date Expiration Date Visits Re quested Visits Authorized [id number] 1 1 Encounter Details Date Type Department Care Team (Late st Contact Info) Description 07/19/2023 10:02 AM EDT Anesthesia Event Outpatient [place] [phone] Williams Tinajero MD [facility] [place] [address] Anesthesia Record Procedure Summary Procedure Name Responsible Anesthesiologist Anesthesia Start Time Anesthesia Stop Time MASTECTOMY PARTIAL (WRVU 10.13) (Left: Breast) Williams Tinajero MD 07/19/23 1002 07/19/23 1305 Events Date Time Event Comment 07/19/2023 0946 1002 Start 1004 AN Verify 1004 An Start Data 1009 An Induction 1012 An Intubation 1013 Anesthesia Ready 1142 Break/Relief In I assumed ca re for Break Relief before which we: 1. Identified the patient 2. Identified the responsible provider(s) 3. Reviewed the pertinent medical history 4. Discussed the surgical plan and course 5. Reviewed intra-op anesthesia management and issues during anesthesia 6. Set expectations for the relief (and/or post-procedure) period 7. Allowed opportunity for questions and acknowledgement of understanding Buddy Perez CRNA 1255 Extubation/LMA Out 1259 an stop data 1302 Recovery or ICU Handoff Razia ent care was transferred to the destination unit staff after review of the patient's medical history, current anesthetic/surgical status and plan, according to the Provider Handoff Checklist. 1305 Stop Meds Name Total fentaNYL 100 mcg IV Lidocaine 50 mg Propofol 170 mg Propofol INF 1,358.9 mg Dexmedetomidine 12 mcg Ondansetron 8 mg PHENYLephrine 1,200 mcg ePHEDrine 5 mg ceFAZolin (Ancef) (100 mg/mL) injection solution 2 g 2 g lactated ringers infusion 1,000 mL * Agents Name O2 * Blood No blood administrations on file. Lines, Drains, and Airways Type Details Placement Removal Nephrostomy Tube 09/27/18; 1203; left flank; inserted by MD Velasquez (8F) 09/27/18 1203 by Amber Mireles RN Incision 01/18/23; 0942; ante rior; throat 01/18/23 0942 by Criss Giles RN Incision 07/19/23; Left, lowe r; breast; dermabond, fluff, bra 07/19/23 0000 by Cindy Díaz RN PIV 07/19/23; 0959; [id number] catheter system; 22 gauge; metacarpal vein (top of hand), right; distraction, intradermal injection, tolerated well, appears comfortable; removed per policy/procedure; 07/19/23; 1341 07/19/23 0959 by Huong Onofre RN 07/19/23 1341 by Melba Fry RN Supraglottic Mask Ventilation: No t Attempted (0); LMA Type: iGel; LMA Size: 3; Removal Date: 07/19/23; Removal Time: 1255 07/19/23 1012 by Haylee Phillips CRNA 07/19/23 1255 by Haylee Phillips SECURITY SYSTEM ANALYST documented in this encounter Social History Tobacco Use Types Packs/Day Years [...] on file documented as of this encounter OR Notes * Anesthesia Postprocedure Evaluation - Williams Tinajero MD - 07/19/2023 1:57 PM EDT Department of Anesthesiology Post-procedure Note Patient: Nallely Velazquez Procedure Summary Date: 07/19/23 [place] / Location: [facility] [place] [address] [place] [address] OSC Anesthesia Start: 1002 Anesthesia Stop: 1305 Procedures: MASTECTOMY PARTIAL (WRVU 10.13) (Left: Breast) BIOPSY OR EXCISION OF LYMPH NODE(S), OPEN, DEEP AXILLARY NODE(S) (WRVU 6.43) (Left: Axilla) INTRAOPERATIVE ID (MAPPING) SENTINEL LYMPH NODE,INCLUDES INJECTION (WRVU 2.5) (Left: Breast) MODIFIER MAGSEED (Left) MODIFIER SENTINEL NODE EXCISION (Left) MODIFIER WITH NEEDLE LOC., LESION #1 (Left) Diagnosis: (LEFT BREAST CANCER) Surgeons: Caitlyn Hirsch MD Responsible Provider: Williams Tinajero MD Anesthesia Type: general ASA Status: 3 All Anesthesia Providers: Anesthesiologist: Williams Tinajero MD SECURITY SYSTEM ANALYST: Haylee Phillips CRNA Vitals Value Taken Time BP 123/67 07/19/23 1330 Temp 36.5 ??C (97.7 ??F) 07/19/23 1302 Pulse 75 07/19/23 1330 Resp 16 07/19/23 1330 SpO2 97 % 07/19/23 1330 Pain Level 2 07/19/23 1345 Patient Location: PACU/[facility] Level of Consciousness: Awake and Alert Pain Management: Satisfactory Analgesia PONV: None Cardiovascular Status: At Baseline Respiratory Status: At Baseline Postoperative Fluid Status: Possible Anesthetic Complications: NONE apparent at time of evaluation Final Primary Anesthesia Type: General (The anesthetic type performed was the same as planned.) Comments: * Anesthesia Preprocedure Evaluation - Williams Tinajero MD - 07/19/2023 7:47 AM EDT Pre-Anesthesia Evaluation for: Nallely Velazquez a 68 y.o. female. Procedure(s): MASTECTOMY PARTIAL (WRVU 10.13) BIOPSY OR EXCISION OF LYMPH NODE(S), OPEN, DEEP AXILLARY NODE(S) (WRVU 6.43) INTRAOPERATIVE ID (MAPPING) SENTINEL LYMPH NODE,INCLUDES INJECTION (WRVU 2.5) MODIFIER MAGSEED MODIFIER SENTINEL NODE EXCISION MODIFIER WITH NEEDLE LOC., LESION #1 Patient Active Problem List Diagnosis Date Noted ??? Malignant neoplasm of upper-inner quadrant of left breast in female, estrogen receptor gzuzebtn15/03/2024 ??? S/p C6-7 ACDF 01/18/23 Swann 01/18/2023 ??? Cervical myelopathy 01/05/2023 ??? HNP (herniated nucleus pulposus), cervical 09/13/2021 ??? NSTEMI (non-ST elevated myocardial infarction) 08/29/2021 ??? Closed fracture of left wrist 11/04/2016 ??? Left hand pain 10/18/2016 ??? Achilles tendon tear, left 09/06/2016 ??? Type 2 diabetes mellitus with hyperglycemia, with long-term current use of insulin 09/06/2016 ??? Hypertension 09/06/2016 ??? buttermaker continuous churn current use of antithrombotics/antiplatelets 09/06/2016 ??? Prinzmetal angina 09/06/2016 Past Medical History: Diagnosis Date ??? CAD (coronary artery disease) ??? Cervical radiculopathy at C7 ??? CKD (chronic kidney disease) stage 3, GFR 30-59 ml/min ??? Diabetes mellitus ??? GERD (gastroesophageal reflux disease) ??? Hiatal hernia ??? HLD (hyperlipidemia) ??? Hypertension Past Surgical History: Procedure Laterality Date ??? IR NEPHROSTOMY TUBE PLACEMENT PERCUTANEOUS LEFT 09/27/2018 IR Nephrostomy Tube Placement Percutaneous Left 09/27/2018 Justin De La Cruz MD [facility] INTERVENTIONL RAD ??? MAMMO US BIOPSY LEFT Left 06/05/2023 Mammo Us Biopsy Left 06/05/2023 Dorothy Hammond MD [facility] RAD MAMMOGRAPHY ??? PRO ANTERIOR INSTRUMENTATION 2-3 VERTEBRAL SEGMENTS Midline 01/18/2023 ANT. SPINAL INSTRUMENTATION, 2-3 VERTEBRA, SEGMENTED (WRVU 11.94) performed by Jimmy Swann MD at [facility] MAIN OR ??? PRO ARTHRODESIS, ANT INTERBODY,DECOMPRESSION; CERVICAL BELOW C2 Midline 01/18/2023 ARTHRODESIS, ANT INTERBODY,DECOMPRESSION; CERVICAL BELOW C2 (WRVU 25) performed by Jimmy Swann MD at [facility] MAIN OR ??? PRO INSERT BIOMCHN DEV INTERVERTEBRAL DSC SPC W/ARTHRD Midline 01/18/2023 INSERTION INTERBODY BIOMECH DEV TO INTERVEBRAL DISC SPACE, EA INTERSPACE (WRVU 4.25) performed by Jimmy Swann MD at [facility] MAIN OR Social History Tobacco Use ??? Smoking status: Never ??? Smokeless tobacco: Never Substance Use Topics ??? Alcohol use: Never Social History Substance and Sexual Activity Drug Use No Allergies Allergen Reactions ??? Amlodipine Other Reaction(s): cough ??? Iodinated Contrast Media Anaphylaxis ??? Iodine And Iodide Containing Products Anaphylaxis ??? Metformin Other (See Comments) Other Reaction(s): Diarrhea ??? Shellfish Derived Anaphylaxis Other Reaction(s): other ??? Codeine Phosphate Nausea And Vomiting ??? Meperidine Hcl Nausea And Vomiting Nausea/Vomiting ??? Morphine Sulfate Nausea And Vomiting ??? Oxaprozin Nausea And Vomiting ??? Prednisone Rash CIS - Rash with dose greater than 20mg. ??? Sulindac Nausea And Vomiting ??? Hepatitis B Virus Vaccine Other Reaction(s): local skin reaction ??? Lisinopril Other Reaction(s): cough, other Medications: MAR and/or home medications have been reviewed. Physical Exam: Preprocedure Vitals Current as of 07/19/23 0747 No BP, pulse, respiration, SpO2, or temperature recorded. Height: Weight: BMI: IBW: Airway Assessment: Mallampati: I TM distance: >3 FB Neck ROM: full Cardiovascular Assessment: system normal Pulmonary Assessment: unlabored breathing pulmonary exam normal Dental Assessment: (+) upper dentures Misc Assessment: Other exam findings: BP Readings from Last 3 Encounters: 06/14/23 : (!) 121/108 04/26/23 : 133/79 01/25/23 : 129/67 Last Filed Perioperative Cognitive Screening None Anesthesia Plan: ASA 3 general, with a(n) intravenous induction 68 y/o female presenting for left partial mastectomy. Medical hx significant for HTN (metoprolol, imdur, olmesartan, ntg), cervical melopathy, s/p ACDF, NSTEMI, prinzmetal angina, DM2, CKD stage 3, GERD (pantoprazole). Trulicity held appropriately, liquid diet since yesterday morning. Allergic to amlodipine, iodine contrast, metformin, shellfish, codeine, meperidine, morphine, oxaprozin, prednisone (rash), suldinac, lisinopril Cardiac Cath in 2021 showed a 90% long segmental stenosis of the ostial segment of the left anterior descending artery (LAD). This was stented at that time. All vessels were free of disease. NPO adequate > 4 METS Plan for GA, LMA, Acetaminophen. Informed Consent: Anesthetic plan and risks discussed with patient. Plan discussed with SECURITY SYSTEM ANALYST. Anesthesia Screening documented in this encounter Plan of Treatment Upcoming Encounters Date Type Department Care Team (Late st Contact Info) Description 01/09/2024 2:20 PM EST TH Visit (TeleHealth) Hematology and Oncology at [place] [phone] Kati Burnette MD [facility] DR HEMATOLOGY [place] [address] 01/24/2024 9:30 AM EST Appointment XRay at [address] [place] [phone] Jimmy Swann MD [facility] [place] [address] 01/24/2024 11:00 AM EST Office Visit Pain and Spine Center at [address]1000 Regulo Wang PA [facility] [place] [address] 01/24/2024 2:45 PM EST Appointment Mammography at [address] 01/24/2024 3:45 PM EST Office Visit General Surgery at [address]1000 Caitlyn Hirsch MD [facility] [place] [address] 03/20/2024 9:00 AM EST Office Visit Hematology and Oncology at [place] [phone] Ericka Forrest, [facility] [place] [address] 07/29/2024 2:00 PM EDT Office Visit Radiation Oncology at [address] [phone] Kasie Marte MD [facility] [place] [address] documented as of this encounter Visit Diagnoses Not on filedocumented in this encounter Administered Medications Inactive Administered Medications - up to 3 most recent administrations Medication Order MAR Action Action Date Dose Rate Site ceFAZolin (Ancef) (100 mg/mL) injection solution 2 g 2 g, Intravenous, ONCE, 1 dose, On Mon07/19/23 at 0945, To be prepared by and administered by Anesthesia. Reconstitute each ceFAZolin 1 gram vial with 10 mL of NS or SWFI = 100 mg/mL May inject IV without further dilution over 3 to 5 minutes., Intra-Operative (Intra-Procedure), Indication for (Active or Suspected): Prophylaxis New Bag 07/19/2023 10:15 AM EDT 2 g dexmedeTOMIDine (Precedex) (4 mcg/mL) bolus injection (Anesthsia) Intravenous, PRN, Starting on Mon07/19/23 at 1007, Until Mon07/19/23 at 1305, Anesthesia Intra-op, Routine Given 07/19/2023 10:07 AM EDT 12 mcg ePHEDrine sulfate (5 mg/mL) multi-dose injection Intravenous, PRN, Starting on Mon07/19/23 at 1038, Until Mon07/19/23 at 1305, Anesthesia Intra-op, Routine Given 07/19/2023 10:38 AM EDT 5 mg fentaNYL (pf) (50 mcg/mL) multi-dose injection Intravenous, PRN, Starting on Mon07/19/23 at 1007, Until Mon07/19/23 at 1305, Anesthesia Intra-op, Routine Given 07/19/2023 11:51 AM EDT 25 mcg Given 07/19/2023 11:23 AM EDT 25 mcg Given 07/19/2023 10:24 AM EDT 25 mcg lactated ringers infusion 1,000 mL, at 100 mL/hr, Intravenous, CONTINUOUS, Starting on Mon07/19/23 at 0945, Until Mon07/19/23 at 1349, Day of Surgery (Day of Procedure) New Bag 07/19/2023 12:21 PM EDT New Bag 07/19/2023 10:04 AM EDT lidocaine (pf) (Xylocaine) (20 mg/mL) 2% injection syringe Intravenous, PRN, Starting on Mon07/19/23 at 1009, Until Mon07/19/23 at 1305, Anesthesia Intra-op, Routine Given 07/19/2023 10:09 AM EDT 50 mg ondansetron (pf) (Zofran) (2 mg/mL) injection Intravenous, PRN, Starting on Mon07/19/23 at 1015, Until Mon07/19/23 at 1305, Anesthesia Intra-op, Routine Given 07/19/2023 12:30 PM EDT 4 mg Given 07/19/2023 10:15 AM EDT 4 mg PHENYLephrine in NS (PF) (KEVIN-SYNEPHRINE) 0.8 mg/10 mL (80 mcg/mL) multi-dose injection Syringe Intravenous, PRN, Starting on Mon07/19/23 at 1015, Until Mon07/19/23 at 1305, Anesthesia Intra-op, Routine Given 07/19/2023 12:19 PM EDT 80 mcg Given 07/19/2023 11:33 AM EDT 80 mcg Given 07/19/2023 11:18 AM EDT 80 mcg propofoL (Diprivan) (10 mg/mL) infusion Intravenous, CONTINUOUS PRN, Starting on Mon07/19/23 at 1014, Until Mon07/19/23 at 1305, Anesthesia Intra-op, Routine Rate/Dose Change 07/19/2023 12:49 PM EDT 25 mcg/kg/min 10.95 mL/hr Rate/Dose Change 07/19/2023 12:36 PM EDT 50 mcg/kg/min 21. 9 mL/hr Rate/Dose Change 07/19/2023 12:33 PM EDT 80 mcg/kg/min 35. 04 mL/hr propofoL (Diprivan) 10 mg/mL bolus injection (Anesthesia) Intravenous, PRN, Starting on Mon07/19/23 at 1009, Until Mon07/19/23 at 1305, Anesthesia Intra-op Given 07/19/2023 10:09 AM EDT 170 mg documented in this encounter Care Teams Auto Body Repair Technician Relationship Specialty Start Date End Date Haylee Baptiste MD [address] [place] [address] PCP - General 01/21/10 documented as of this encounter
--- OUTSIDE RECORDS SUMMARY | 2023-12-15 12:36 | XMS_ITS | Encounter Summary ---
Author Organization [facility] Address [facility] [place] [address] Care Team Providers Care Dope Firer Name Role Phone Haylee Baptiste MD Primary Care Provider [phone] Encounter Details Date Type Department Care Team (Latest Contact Info) Description 07/19/2023 8:12 AM EDT - 07/19/2023 9:21 AM EDT Hospital Encounter [place] [address] Regan Hirsch MD [facility] [place] [address] Malignant neoplasm of left breast in female, [...] daily. 03/15/2022 fluticasone propionate (Flonase) 50 mcg/actuation [place], Suspension 1 spray by Each Nare route [...] TH Visit (TeleHealth) Hematology [place] [address] Kati Burnette MD [facility] [place] [address] 01/24/2024 9:30 AM EST Appointment XRay at [address] [place] [address] Jimmy Swann MD [facility] [place] [address] 01/24/2024 11:00 AM EST Office Visit Pain and Spine Center at [address]1000 Regulo Wang PA [facility] [place] [address] 01/24/2024 2:45 PM EST Appointment Mammography at [address] 01/24/2024 3:45 PM EST Office Visit General Surgery at [address]1000 Regan Hirsch MD [facility] [place] [address] 03/20/2024 9:00 AM EST Office Visit Hematology [place] [address] Ericka Forrest, [facility] [place] [address] 07/29/2024 2:00 PM EDT Office Visit Radiation Oncology at [address] [phone] Kasie Marte MD [facility] [place] [address] documented as of this encounter Procedures Procedure Name Priority Date/Time Associated Diagnosis Comments MAMMO SPECIMEN LEFT Routine 07/19/2023 1 1:27 AM EDT Malignant neoplasm of left breast in female, estrogen receptor positive, unspecified site of breast documented in this encounter Results * Mammo Specimen Left (07/19/2023 11:27 AM EDT) WORKSTATION ID [id number] 1 RAD Anatomical Region Laterality Modality Breast Left Mammography Narrative 07/19/2023 11:55 AM EDT EXAMINATION: MAMMO SPECIMEN LEFT INDICATION: Intraoperative specimen image for adequacy of lesion and/or clip removal TECHNIQUE: A radiograph was obtained of the excised Left breast specimen. COMPARISONS: Preoperative imaging FINDINGS: The Magseed, [place] shaped clip and mass are in the specimen. ??Margins were felt to be adequate by single plane radiography. REGAN HIRSCH was informed in the operating room [...] who have questions please contact the health plant health care technician that requested your imaging first. ? Regan Hirsch MD IMG MAMMO ORDERAB LES documented in this encounter Visit Diagnoses Diagnosis Malignant neoplasm of left breast in female, estrogen receptor positive, unspecified site of breast documented in this encounter Care Teams Dope Firer Relationship Specialty Start Date End Date Haylee Baptiste MD [address] [place] [address] PCP - General 01/21/10 documented as of this encounter
--- OUTSIDE RECORDS SUMMARY | 2023-12-15 12:37 | XMS_ITS | Encounter Summary ---
Author Organization [facility] Address [facility] [place] [address] Care Team Providers Care Genetic Engineer Name Role Phone Haylee Baptiste MD Primary Care Provider [phone] Encounter Details Date Type Department Care Team (Latest Contact Info) Description 02/13/2023 Travel Social History Tobacco Use Types Packs/Day Years Used Date Smoking Tobacco: Never Smokeless Tobacco: Never Alcohol Use Standard Drinks/Week Comments No 0 (1 standard drink = 0.6 oz pur e alcohol) [facility] Inpatient Questions Answer Date Recorded Does Anyone [...] TH Visit (TeleHealth) [place] [address] [facility] DR HEMATOLOGY [place] [address] 01/24/2024 9:30 AM EST Appointment XRay at [address] [place] [address] [facility] [place] [address] 01/24/2024 11:00 AM EST Office Visit [facility] Spine Center at [place] [address] [facility] [place] [address] 01/24/2024 2:45 PM EST Appointment Mammography at [place] [address] 01/24/2024 3:45 PM EST Office Visit General Surgery at [place] [address] [facility] [place] [address] 03/20/2024 9:00 AM EST Office Visit Hematology and Oncology at [place] [address] Ericka Forrest, [facility] [place] DR HEMATOLOGY [place] [address] 07/29/2024 2:00 PM EDT Office Visit Radiation Oncology at [address] [address] [facility] [place] [address] documented as of this encounter Visit Diagnoses Not on filedocumented in this encounter Care Teams Genetic Engineer Relationship Specialty Start Date End Date Haylee Baptiste MD [address] [place] [address] PCP - General 01/21/10 documented as of this encounter
--- OUTSIDE RECORDS SUMMARY | 2023-12-15 12:37 | XMS_ITS | Encounter Summary ---
Author Organization [facility] [place] [address] Care Team Providers Care Creasing And Cutting Press Feeder Name Role Phone Haylee Baptiste MD Primary Care Provider [phone] Encounter Details Date Type Department Care Team (Latest Contact Info) Description 02/16/2023 12:15 PM EST - 02/16/2023 11:59 PM [facility] [[email or web address] Hospital Encounter XRay at [address] [place] [address] Jimmy Swann MD [facility] [place] [address] Cervical myelopathy Discharge Disposition: Home Social History Tobacco Use Types Packs/Day Years Used Date Smoking Tobacco: Never Smokeless Tobacco: Never Alcohol Use Standard Drinks/Week Comments No 0 (1 standard drink = 0.6 oz pur e alcohol) [facility] Inpatient Questions Answer Date Recorded Does [...] daily. 03/15/2022 fluticasone propionate (Flonase) 50 mcg/actuation [place], Suspension 1 spray by Each Nare route [...] needed for Chest pain. 25 tablet 09/01/2021 oxyCODONE (Roxicodone) 5 mg tablet Take 1-2 tablets by mouth every 4 hours as needed for Pain (Acute post-op surgical pain). 35 tablet 01/19/2023 05/11/2023 polyethylene glycoL (Miralax) 17 gram oral powder [...] TH Visit (TeleHealth) Hematology [place] [address] Kati Burnette MD [facility] DR [place] [address] 01/24/2024 9:30 AM EST Appointment XRay at [address] [place] [address] Jimmy Swann MD [facility] [place] [address] 01/24/2024 11:00 AM EST Office Visit Pain [facility] [place] [address] Regulo Wang PA [facility] [place] [address] 01/24/2024 2:45 PM EST Appointment Mammography at [place] [phone] 01/24/2024 3:45 PM EST Office Visit [place] [address] Caitlyn Hirsch MD [facility] [place] [address] 03/20/2024 9:00 AM EST Office Visit Hematology [place] [address] Ericka Forrest [facility] DR [place] [address] 07/29/2024 2:00 PM EDT Office Visit Radiation Oncology at [address] [address] Kasie Marte MD [facility] [place] [address] documented as of this encounter Procedures Procedure Name Priority Date/Time Associated Diagnosis Comments XR CERVICAL SPINE 1 VIEW Routine 02/16/2023 12:21 PM EST Cervical myelopathy documented in this encounter Results * XR Cervical Spine 1 View (02/16/2023 12:21 PM EST) Anatomical Region Laterality Modality C-spine N/A Digital Radiogra phy Impressions 02/16/2023 3:31 PM EST Status post ACDF at C6-C7 without radiographic evidence of complication. Thank you for letting us participate in the care of this patient. ??If you are a health care provider and have any questions regarding this report, please contact the number below. ??For patients who have questions please contact the health child day care teacher that requested your imaging first. ? Electronically signed by: Unruly Chase MD, [facility] ([phone]), at 02/16/2023 3:31 PM Narrative 02/16/2023 3:31 PM EST EXAMINATION: XR CERVICAL SPINE 1 VIEW CLINICAL HISTORY: Upright Lateral (singled view) for history of neck pain, now S/P surgery TECHNIQUE: 1 views of the cervical spine COMPARISON: 01/18/2023. FINDINGS: The patient is status post ACDF at C6-C7. Alignment remains normal. No evidence of hardware complication. There is no soft tissue gas or prevertebral soft tissue thickening. No change in appearance from prior study. Procedure Note Unruly Chase MD - 02/16/2023 EXAMINATION: XR CERVICAL SPINE 1 VIEW CLINICAL HISTORY: Upright Lateral (singled view) for history of neck pain,now S/P surgery TECHNIQUE: 1 views of the cervical spine COMPARISON: 01/18/2023. FINDINGS: The patient is status post ACDF at C6-C7. Alignment remains normal. Noevidence of hardware complication. There is no soft tissue gas or prevertebralsoft tissue thickening. No change in appearance from prior study. IMPRESSION Status post ACDF at C6-C7 without radiographic evidence of complication. Thank you for letting us participate in the care of this patient. If youare a health care provider and have any questions regarding this report,please contact the number below. For patients who have questions please contactthe health child day care teacher that requested your imaging first. Electronically signed by: Unruly Chase MD, [facility]([phone]), at 02/16/2023 3:31 PM Jimmy Sawnn MD IMG DX ORDERABLES documented in this encounter Visit Diagnoses Diagnosis Cervical myelopathy Cervical spondylosis with myelopathy documented in this encounter Care Teams Creasing And Cutting Press Feeder Relationship Specialty Start Date End Date Haylee Baptiste MD [address] [place] [address] PCP - General 01/21/10 documented as of this encounter
--- OUTSIDE RECORDS SUMMARY | 2023-12-15 12:37 | XMS_ITS | Encounter Summary ---
Author Organization [facility] Address [facility] [place] [address] Care Team Providers Care City Collector Name Role Phone Haylee Baptiste MD Primary Care Provider [phone] Encounter Details Date Type Department Care Team (Latest Contact Info) Description 02/08/2023 Travel Social History Tobacco Use Types Packs/Day Years Used Date Smoking Tobacco: Never Smokeless Tobacco: Never Alcohol Use Standard Drinks/Week Comments No 0 (1 standard drink = 0.6 oz pur e alcohol) [facility] Inpatient Questions Answer Date Recorded Does Anyone [...] TH Visit (TeleHealth) [place]ematology [place] [address] Kati Burnette MD [facility] DR HEMATOLOGY [place] [address] 01/24/2024 9:30 AM EST Appointment XRay at [address] [place] [address] Jimmy Swann MD [facility] [place] [address] 01/24/2024 11:00 AM EST Office Visit Pain and Spine Center at [place] [address] Regulo Wang PA [facility] [place] [address] 01/24/2024 2:45 PM EST Appointment Mammography at [place] [address] 01/24/2024 3:45 PM EST Office Visit General Surgery at [place] [address] Caitlyn Hirsch MD [facility] [place] [address] 03/20/2024 9:00 AM EST Office Visit Hematology and Oncology at [place] [address] Ericka Forrest, [facility] DR HEMATOLOGY [place] [address] 07/29/2024 2:00 PM EDT Office Visit Radiation Oncology at [address] [address] Kasie Marte MD [facility] DR [place] [address] documented as of this encounter Visit Diagnoses Not on filedocumented in this encounter Care Teams City Collector Relationship Specialty Start Date End Date Haylee Baptiste MD [address] [place] [address] PCP - General 01/21/10 documented as of this encounter
--- OUTSIDE RECORDS SUMMARY | 2023-12-15 12:37 | XMS_ITS | Encounter Summary ---
Author Organization [facility] [place] [address] Care Team Providers Care Director International Name Role Phone Haylee Baptiste MD Primary Care Provider [phone] Encounter Details Date Type Department Care Team (Late st Contact Info) Description 06/07/2023 Notes Only Hematology [place] [phone] Corine Ortiz Social History Tobacco Use Types Packs/Day Years [...] things needed for daily living? No 06/09/2023 [facility] Inpatient Questions Answer Date Recorded Does Anyone [...] as of this encounter Progress Notes * Corine Ortiz - 06/07/2023 11:46 AM EDTSummary: CBP- newly diagnosed breast cancer New Breast Cancer Referral Nallely [facility] [id number] Biopsy Location Biopsy Date: 06.05.2023 Date of referral: 06.07.2023 [x]Packet sent [x]Patient notified of appointments Diagnoses: L IDC with focal lobular features (linear growth pattern), intermediate grade (modified SBR score = 6), measuring at least 13 mm. - Lymphovascular invasion not identified. - Ductal carcinoma in-situ, focal, intermediate grade, solid pattern without comedonecrosis. - Microcalcifications associated with invasive carcinoma Receptors: ER/OK+ Her2- Tumor size: 1.8 cm Scans:MRI Lab:CBC,CMP Surgeon: Joycelyn 06.14.2023 Plastics: Date of Surgery:07.19.2023 Med/Onc: Yomaira 08.08.2023 Rad/Onc: Rosanna 07.31.2023 Physical Therapy: Neoadjuvant []Yes []No documented in this encounter Plan of Treatment Upcoming Encounters Date Type Department Care Team (Late st Contact Info) Description 01/09/2024 2:20 PM EST TH Visit (TeleHealth) Hematology [place] [address] Kati Burnette MD [facility] [place] [address] 01/24/2024 9:30 AM EST Appointment XRay at [address] [place] [address] Jimmy Swann MD [facility] [address] 01/24/2024 11:00 AM EST Office Visit Pain [place] [address] Regulo Wang PA [facility] [place] [address] 01/24/2024 2:45 PM EST Appointment Mammography at [address] 01/24/2024 3:45 PM EST Office Visit General Surgery at [address] Caitlyn Hirsch MD [facility] [place] [address] 03/20/2024 9:00 AM EST Office Visit Hematology [place] [address] Ericka Forrest, [facility] DR HEMATOLOGY [place] [address] 07/29/2024 2:00 PM EDT Office Visit Radiation Oncology at [address] [phone] Kasie Marte MD [facility] [place] [address] documented as of this encounter Visit Diagnoses Not on filedocumented in this encounter Care Teams Director International Relationship Specialty Start Date End Date Haylee Baptiste MD [address] [place] [address] PCP - General 01/21/10 documented as of this encounter
--- OUTSIDE RECORDS SUMMARY | 2023-12-15 12:37 | XMS_ITS | Encounter Summary ---
Author Organization [facility] Address [facility] [place] [address] Care Team Providers Care Contact Lens Edge Buffer Name Role Phone Haylee Baptiste MD Primary Care Provider [phone] Encounter Details Date Type Department Care Team (Latest Contact Info) Description 02/16/2023 Travel Social History Tobacco Use Types Packs/Day Years Used Date Smoking Tobacco: Never Smokeless Tobacco: Never Alcohol Use Standard Drinks/Week Comments No 0 (1 standard drink = 0.6 oz pur e alcohol) [facility] Inpatient Questions Answer Date Recorded Does Anyone [...] TH Visit (TeleHealth) [place] [address] Kati Burnette MD [facility] DR [place] [address] 01/24/2024 9:30 AM EST Appointment XRay at [address] [place] [address] Jimmy Swann MD [facility] [place] [address] 01/24/2024 11:00 AM EST Office Visit Pain and Spine Center at [place] [address] Regulo Wang PA [facility] [place] [address] 01/24/2024 2:45 PM EST Appointment Mammography at [place] [address] 01/24/2024 3:45 PM EST Office Visit General Surgery at [place] [address] Caitlyn Hirsch MD [facility] [place] [address] 03/20/2024 9:00 AM EST Office Visit Hematology and Oncology at [place] [address] Ericka Forrest, [facility] DR [place] [address] 07/29/2024 2:00 PM EDT Office Visit Radiation Oncology at [address] [address] Kasie Marte MD [facility] [place] [address] documented as of this encounter Visit Diagnoses Not on filedocumented in this encounter Care Teams Contact Lens Edge Buffer Relationship Specialty Start Date End Date Haylee Baptiste MD [address] [place] [address] PCP - General 01/21/10 documented as of this encounter
--- OUTSIDE RECORDS SUMMARY | 2023-12-15 12:37 | XMS_ITS | Encounter Summary ---
Author Organization [facility] Address [facility] [place] [address] Care Team Providers Care Assisted Living Coordinator Name Role Phone Haylee Baptiste MD Primary Care Provider [phone] Encounter Details Date Type Department Care Team (Latest Contact Info) Description 04/10/2023 Travel Social History Tobacco Use Types Packs/Day Years Used Date Smoking Tobacco: Never Smokeless Tobacco: Never Alcohol Use Standard Drinks/Week Comments No 0 (1 standard drink = 0.6 oz pur e alcohol) [facility] Inpatient Questions Answer Date Recorded Does [...] TH Visit (TeleHealth) Hematology [place] [address] Kati Burnette MD [facility] DR [place] [address] 01/24/2024 9:30 AM EST Appointment XRay at [address] [place] [address] Jimmy Swann MD [facility] [place] [address] 01/24/2024 11:00 AM EST Office Visit Pain and Spine Center at [place] [address] Regulo Wang PA [facility] [place] [address] 01/24/2024 2:45 PM EST Appointment Mammography at [place] [address] 01/24/2024 3:45 PM EST Office Visit General Surgery at [place] [address] Caitlyn Hirsch MD [facility] [place] [address] 03/20/2024 9:00 AM EST Office Visit Hematology and Oncology at [place] [address] Ericka Forrest, [facility] DR HEMATOLOGY [place] [address] 07/29/2024 2:00 PM EDT Office Visit Radiation Oncology at [address] [address] Kasie Marte MD [facility] DR [place] [address] documented as of this encounter Visit Diagnoses Not on filedocumented in this encounter Care Teams Assisted Living Coordinator Relationship Specialty Start Date End Date Haylee Baptiste MD [address] [place] [address] PCP - General 01/21/10 documented as of this encounter
--- OUTSIDE RECORDS SUMMARY | 2023-12-15 12:37 | XMS_ITS | Encounter Summary ---
Author Organization [facility] [place] [address] Care Team Providers Care Cattle Sprayer Name Role Phone Haylee Baptiste MD Primary Care Provider [phone] Encounter Details Date Type Department Care Team (Late st Contact Info) Description 06/01/2023 Notes Only [place]ology [place] [address] Corine Ortiz Social History Tobacco Use Types Packs/Day Years Used Date Smoking Tobacco: Never Smokeless Tobacco: Never Alcohol Use Standard Drinks/Week Comments No 0 (1 standard drink = 0.6 oz pur e alcohol) [facility] Inpatient Questions Answer Date Recorded Does [...] encounter Progress Notes * Corine Ortiz - 06/01/2023 1:42 PM EDT Nallely Velazquez 1955 [id number] Referring provider: Haylee Baptiste Date of Referral: 4.25.2024 Please review outside breast imaging dated: 05.26.2023 Reason for exam and clinical history: L breast solid mass 11 o'clock Category: 0 (US done 05.30.2023 CAT5) Questions to be answered: ?BX or more imaging Sending Institution: [facility] Patient would like treatment at: Call pt at: documented in this encounter Plan of Treatment Upcoming Encounters Date Type Department Care Team (Late st Contact Info) Description 01/09/2024 2:20 PM EST TH Visit (TeleHealth) Hematology and Oncology at [place] [address] Kati Burnette MD [facility] [place] [address] 01/24/2024 9:30 AM EST Appointment XRay at [address] Jimmy Swann MD [facility] [place] [address] 01/24/2024 11:00 AM EST Office Visit Pain and Spine Center at [place] [address] Regulo Wang PA [facility] [place] [address] 01/24/2024 2:45 PM EST Appointment Mammography at [place] [address] 01/24/2024 3:45 PM EST Office Visit General Surgery at [address] Caitlyn Hirsch MD [facility] [place] [address] 03/20/2024 9:00 AM EST Office Visit [place] [address] Ericka Forrest, [facility] HEMATOLOGY [place] [address] 07/29/2024 2:00 PM EDT Office Visit Radiation Oncology at [address] [address] Kasie Marte MD [facility] [place] [address] documented as of this encounter Visit Diagnoses Not on filedocumented in this encounter Care Teams Cattle Sprayer Relationship Specialty Start Date End Date Haylee Baptiste MD [address] [place] [address] PCP - General 01/21/10 documented as of this encounter
--- OUTSIDE RECORDS SUMMARY | 2023-12-15 12:37 | XMS_ITS | Encounter Summary ---
Author Organization [facility] Address [facility] [place] [address] Care Team Providers Care Car Knocker Name Role Phone Haylee Baptiste MD Primary Care Provider [phone] Encounter Details Date Type Department Care Team (Latest Contact Info) Description 06/02/2023 Travel Social History Tobacco Use Types Packs/Day [...] TH Visit (TeleHealth) Hematology [place] [address] Kati Burnette MD [facility] DR HEMATOLOGY [place] [address] 01/24/2024 9:30 AM EST Appointment XRay at [address] [place] [address] Jimmy Swann MD [facility] [place] [address] 01/24/2024 11:00 AM EST Office Visit Pain and Spine Center at [place] [address] Regulo Wang PA [facility] [place] [address] 01/24/2024 2:45 PM EST Appointment Mammography at [place] [address] 01/24/2024 3:45 PM EST Office Visit General Surgery at [place] [address] Caitlyn Hirsch MD [facility] [place] [address] 03/20/2024 9:00 AM EST Office Visit Hematology and Oncology at [place] [address] Ericka Forrest, [facility] DR HEMATOLOGY [place] [address] 07/29/2024 2:00 PM EDT Office Visit Radiation Oncology at [address] [address] Kasie Marte MD [facility] [place] [address] documented as of this encounter Visit Diagnoses Not on filedocumented in this encounter Care Teams Car Knocker Relationship Specialty Start Date End Date Haylee Baptiste MD [address] [place] [address] PCP - General 01/21/10 documented as of this encounter
--- OUTSIDE RECORDS SUMMARY | 2023-12-15 12:37 | XMS_ITS | Encounter Summary ---
Author Organization [facility] Address [facility] [place] [address] Care Team Providers Care Regional Account Manager Name Role Phone Haylee Baptiste MD Primary Care Provider [phone] Reason for Visit * (Routine) - Pending Review Specialty Diagnoses / Procedures Referred By Mike jalloh Referred To Contact Radiology Diagnoses Mass of left breast, unspecified quadrant Procedures Request for 2nd read Mammo Haylee Baptiste MD [address] [place] [address] Referral ID Status Reason Start Date Expiration Date V isits Requested Visits Authorized [id number] Pending Review 06/01/2023 05/31/2024 1 1 Encounter Details Date Type Department Care Team (Latest Contact Info) Description 06/01/2023 3:55 PM EDT Ancillary Procedure Radiology Library at [facility] [place] [address] Haylee Baptiste MD [address] [place], [place] [address] Mass of left breast, unspecified quadrant Social History Tobacco Use Types Packs/Day Years Used Date Smoking Tobacco: Never Smokeless Tobacco: Never Alcohol Use Standard Drinks/Week Comments No 0 (1 standard drink = 0.6 oz pur e alcohol) [facility] Inpatient Questions Answer Date Recorded Does Anyone [...] TH Visit (TeleHealth) Hematology [place] [address] Kati Burnette MD [facility] [place] [address] 01/24/2024 9:30 AM EST Appointment XRay at [address] [place] [phone] Jimmy Swann MD [facility] [place] [address] 01/24/2024 11:00 AM EST Office Visit Pain and Spine Center at [place] [phone] Regulo Wang PA [facility] [place] [address] 01/24/2024 2:45 PM EST Appointment [place] [address] 01/24/2024 3:45 PM EST Office [place] [address] Caitlyn Hirsch MD [facility] [place] [address] 03/20/2024 9:00 AM EST Office Visit Hematology [place] [address] Ericka Forrest, [facility] [place] [address] 07/29/2024 2:00 PM EDT Office Visit Radiation Oncology at [address] [address] Kasie Marte MD [facility] [place] [address] documented as of this encounter Procedures Procedure Name Priority Date/Time Associated Diagnosis Comments REQUEST FOR 2ND READ MAMMO Routine 06/01/2023 3:39 PM EDT Mass of left breast, unspecified quadrant documented in this encounter Results * Request for 2nd read Mammo (06/01/2023 3:39 PM EDT) WORKSTATION ID [id number] 2 DH RAD Anatomical Region Laterality Modality SO Impressions 06/01/2023 4:39 PM EDT Highly suspicious LEFT breast mass, ultrasound-guided biopsy recommended FINAL ASSESSMENT: BI-RADS Category 5: Highly Suggestive of Malignancy - Appropriate Action Should Be Taken Please note: The interpretation of the [facility] Breast Imaging Radiologist subspecialist may differ from the original radiologists interpretation. This is usually not due to a deficiency of the original interpreting radiologist, rather due to the greater skill level afforded by sub-specialization in the field and/or reasonable variations in interpretations. If you have a concern regarding the D-H interpretation you may contact the [facility] Breast Rough Rounder Machine Office at . I have personally reviewed the image(s) and the resident's interpretation and agree with the findings, Dorothy Hammond MD at 06/01/2023 4:39 PM Thank you for letting us participate in the care of this patient. ??If you are a health care provider and have any questions regarding this report, please contact the number below. ??For patients who have questions please contact the health skin care consultant that requested your imaging first. ? Electronically signed by: Dorothy Hammond MD, [facility] ([phone]), at 06/01/2023 4:39 PM Narrative 06/01/2023 4:39 PM EDT INTERPRETATION OF OUTSIDE BREAST IMAGING I have been asked to consult on this patient because a review of this study may change or alter the care of this patient. STUDIES FROM: [facility] CLINICAL HISTORY: ? MORE IMAGING, ? BX; Sending Institution [facility]; Date of exam [id number]; I believe a reinterpretation of this exam may alter care of Patient. Yes; LEFT BREAST SOLID MASS 11 O'CLOCK, CAT 0. ?? DATES and TYPE OF EXAM: Diagnostic left [...] node measuring 1.8 cm in long axis. Procedure Note Dorothy Hammond MD - 06/01/2023 INTERPRETATION OF OUTSIDE BREAST IMAGING I have been asked to consult on this patient because a review of thisstudy may change or alter the care of this patient. STUDIES FROM: [facility] CLINICAL HISTORY: ? MORE IMAGING, ? BX; Sending Institution [facility]; Date of exam [id number]; I believe a reinterpretation of this exammay alter care of Patient. Yes; LEFT BREAST SOLID MASS 11 O'CLOCK, CAT 0. DATES and TYPE OF EXAM: Diagnostic left breast mammogram and ultrasound 05/30/2023 VIEWS: Left SCC, SMLO, and SMLO COMPARISONS: Screening mammogram 05/26/2023, 12/23/2020 BREAST DENSITY: There are scattered areas of fibroglandular density. FINDINGS: RIGHT breast: Normal and unchanged Mammogram: 13 mm spiculated mass within the left breast 12:00 radian,middle depth 9 cm from the nipple. Additionally there is a subcentimeterretroareolar mass, stable for at least 12 years, benign. Ultrasound: Left breast 11:00 radian 7 cm from the nipple demonstratesan irregular, indistinct, hypoechoic mass with an echogenic rind maximally measuring 18 mm, consistent with the mammographic mass Left breast 1:30rad 6 cm from the nipple demonstrates a oval, circumscribed, isoechoic massmeasuring 7 mm in maximal diameter, benign. Provided images of the axilla demonstrate a single morphologically normalnode measuring 1.8 cm in long axis. IMPRESSION Highly suspicious LEFT breast mass, ultrasound-guided biopsy recommended FINAL ASSESSMENT: BI-RADS Category 5: Highly Suggestive of Malignancy - Appropriate ActionShould Be Taken Please note: The interpretation of the [facility] BreastImaging Radiologist subspecialist may differ from the original radiologists interpretation. This is usually not due to a deficiency of the original interpreting radiologist, rather due to the greater skill level affordedby sub-specialization in the field and/or reasonable variations ininterpretations. If you have a concern regarding the -H interpretation you may [facility]ounder [facility] at . I have personally reviewed the image(s) and the resident's interpretationand agree with the findings, Dorothy Hammond MD at 06/01/2023 4:39 PM Thank you for letting us participate in the care of this patient. If youare a health care provider and have any questions regarding this report,please contact the number below. For patients who have questions please contactthe health skin care consultant that requested your imaging first. Haylee Baptiste MD IMG OUTSIDE INTERPRE TATION ORDERABLES documented in this encounter Visit Diagnoses Diagnosis Mass of left breast, unspecified quadrant documented in this encounter Care Teams Regional Account Manager Relationship Specialty Start Date End Date Haylee Baptiste MD [address] [place] [address] PCP - General 01/21/10 documented as of this encounter
--- OUTSIDE RECORDS SUMMARY | 2023-12-15 12:37 | XMS_ITS | Encounter Summary ---
Author Organization [facility] [place] [address] Care Team Providers Care Directory Operator Name Role Phone Haylee Baptiste MD Primary Care Provider [phone] Encounter Details Date Type Department Care Team (Late st Contact Info) Description 06/09/2023 Patient Outreach [place]ology [place] [phone] Tiny Sandhu, RN Social History Tobacco Use Types Packs/Day [...] things needed for daily living? No 06/09/2023 [facility] Inpatient Questions Answer Date Recorded Does Anyone [...] as of this encounter Progress Notes * Tiny Sandhu RN - 06/09/2023 3:42 PM EDT [facility] Nurse Navigation Patient Care Plan for the Comprehensive Breast Program (CBP) Date of call: 06/08 Reason for call: contacted Nallely Velazquez via phone to assess for nurse navigation services after Dr. Hammond informed her that her breast biopsy results indicated she has breast cancer, and to introduce her to the CBP. Nallely Velazquez is a 68 y.o. female with newly diagnosed ER/HI+/Her-2 negative left breast invasive ductal carcinoma and ductal carcinoma in situ [place] [facility] [place] Samantha sounds positive and has support from her family and co-workers. Her daughter will accompany herto appointments. She appears to be coping well and is eager to meet with a breast surgeon to determine a treatment plan. 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 She works in the office and states my nurses don't know yet about my diagnosis (awaiting her surgery d ate). Samantha will be dog sitting for her son who will be at a competition in [place] with his daughter from 06/27-07/02. She is interested in partial mastectomy, if recommended, and hopes to have surgery before 06/27. Menopausal status: Postmenopausal Bradley is active. Plan: breast MRI completed 06/07. Consultation with a breast surgeon has been scheduled. She was introduced to the CBP and told she would receive information about her diagnosis and treatment for her review (the Breast Cancer Treatment Handbook). Plan to meet with Samantha on the day of her surgical oncology consultation. She understands that Minoo Landrum, COLT, CCM, our social service coordinator, and I are available to her for support/concerns. Addressed her questions and encouraged her to contact me with any additional questions or concerns.She has our contact information. FAMILY HISTORY No FH of breast or ovarian cancer. Samantha states she has a daughter and 7 granddaughters and asked about genetic testing. She understands she may meet with a genetic counselor to discuss genetic testing in the future. Laterality:Left Is this a recurrence:No Family history of breast cancer:No Family history of ovarian cancer: No Personal history or breast cancer:No Method of detection: Mammogram Method of diagnosis: Ultrasound Core Biopsy Identified Barriers: Patient comments or concerns: none identified at this time. She has no concerns regarding insurance(insurance through work and Medicare; [facility] cancer policy which pays $2,000 at diagnosis and provides additional coverage), finances or transportation. documented in this encounter Plan of Treatment Upcoming Encounters Date Type Department Care Team (Late st Contact Info) Description 01/09/2024 2:20 PM EST TH Visit (TeleHealth) Hematology and Oncology at [place] [phone] Kati Burnette MD [facility] [address] [place] [address] 01/24/2024 9:30 AM EST Appointment XRay at [address] [place] [phone] Jimmy Swann MD [facility] [place] [address] 01/24/2024 11:00 AM EST Office Visit Pain and Spine Center at [place] [phone] Regulo Wang PA [facility] [place] [address] 01/24/2024 2:45 PM EST Appointment Mammography at [place] [phone] 01/24/2024 3:45 PM EST Office [place] [address] Caitlyn Hirsch MD [facility] [place] [address] 03/20/2024 9:00 AM EST Office Visit [place]ematology [place] [address] Ericka Forrest [facility] [address] [place] [address] 07/29/2024 2:00 PM EDT Office Visit Radiation Oncology at [address] [address] Kasie Marte MD [facility] [place] [address] documented as of this encounter Visit Diagnoses Not on filedocumented in this encounter Care Teams Directory Operator Relationship Specialty Start Date End Date Haylee Baptiste MD [address] [place] [address] PCP - General 01/21/10 documented as of this encounter
--- OUTSIDE RECORDS SUMMARY | 2023-12-15 12:37 | XMS_ITS | Encounter Summary ---
Author Organization [facility] [place] [address] Care Team Providers Care Controls Project Engineer Name Role Phone Haylee Baptiste MD Primary Care Provider Encounter Details Date Type Department Care Team (Latest Contact Info) Description 06/05/2023 2:25 PM EDT - 06/05/2023 11:59 PM EDT Hospital Encounter [place] [address] Dorothy Hammond MD [facility] [place] [address] Abnormal finding on breast imaging Discharge Disposition: Home Social History Tobacco Use Types Packs/Day Years Used Date Smoking Tobacco: Never Smokeless Tobacco: Never Alcohol Use Standard Drinks/Week Comments No 0 (1 standard drink = 0.6 oz pur e alcohol) [facility] Inpatient Questions Answer Date Recorded Does [...] daily. 03/15/2022 fluticasone propionate (Flonase) 50 mcg/actuation [place], Suspension 1 spray by Each Nare route [...] TH Visit (TeleHealth) Hematology [place] [address] Kati Burnette MD [facility] [address] [place] [address] 01/24/2024 9:30 AM EST Appointment XRay at [address] [place] [address] Jimmy Swann MD [facility] [place] [address] 01/24/2024 11:00 AM EST Office Visit Pain [place] [phone] Regulo Wang PA [facility] [place] [address] 01/24/2024 2:45 PM EST Appointment [place] [address] 01/24/2024 3:45 PM EST Office Visit [place] [address] Caitlyn Hirsch MD [facility] [place] [address] 03/20/2024 9:00 AM EST Office Visit Hematology [place] [address] Ericka Forrest, [facility] [place] [place] [address] 07/29/2024 2:00 PM EDT Office Visit Radiation Oncology at [address] [address] Kasie Marte MD [facility] [place] [address] documented as of this encounter Procedures Procedure Name Priority Date/Time Associated Diagnosis Comments MAMMO DIAGNOSTIC WITHOUT CAD LEFT Routine 06/05/2023 3:08 PM EDT Abnormal finding on breast imaging documented in this encounter Results * Mammo Diagnostic Without Cad Left (06/05/2023 3:08 PM EDT) WORKSTATION ID [id number] 1 DH RAD Anatomical Region Laterality Modality Breast Left Mammography Impressions 06/07/2023 11:42 AM EDT Concordant result RECOMMENDATION: Surgical consultation preceeded by breast MRI as discussed with the patient and conveyed to the Comprehensive Breast Program. REVIEW PATH CONFERENCE?: No Thank you for letting us participate in the care of this patient. ??If you are a health care provider and have any questions regarding this report, please contact the number below. ??For patients who have questions please contact the health care assistant that requested your imaging first. ? Electronically signed by: Dorothy Hammond MD, [facility] ([phone]), at 06/07/2023 11:42 AM Narrative 06/07/2023 11:42 AM EDT ULTRASOUND GUIDED BIOPSY OF THE LEFT BREAST CLINICAL HISTORY: Suspicious mass Left breast 11:00 radian 7 cm from the nipple demonstrates an irregular, indistinct, hypoechoic mass with an echogenic rind maximally measuring 18 mm, PROCEDURAL DETAILS: Informed consent was obtained. Sterile technique was deployed. Approximately 10 cc used for local anesthesia. A small skin incision was made and a biopsy was performed under ultrasound guidance. 3 core biopsy specimens were obtained using a Achieve 14g device. Biopsy specimens were not radiographed. N/A Satisfactory sampling was obtained. A Moverati 14G marker clip was placed. Cranio-caudal and lateral digital mammography performed to determine biopsy marker placement, which was shown to be 0 cm from the biopsy site in N/A direction. COMPLICATIONS: None. PROCEDURAL ATTESTATION: Resident: none IMAGING DIFFERENTIAL DIAGNOSIS: IDC, ILC PATHOLOGIC DIAGNOSIS: IDC,DCIS Dorothy Hammond MD IMG MAMMO ORDERABLES documented in this encounter Visit Diagnoses Diagnosis Abnormal finding on breast imaging Other (abnormal) findings on radiological examination of breast documented in this encounter Care Teams Controls Project Engineer Relationship Specialty Start Date End Date Haylee Baptiste MD [address] [place] [address] PCP - General 01/21/10 documented as of this encounter
--- OUTSIDE RECORDS SUMMARY | 2023-12-15 12:37 | XMS_ITS | Encounter Summary ---
Author Organization [facility] [place] [address] Care Team Providers Care Mine Promotor Name Role Phone Haylee Baptiste MD Primary Care Provider [phone] Reason for Referral * Diagnostic Test (Routine) - Closed Specialty Diagnoses / Procedures Referred By Mike jalloh Referred To Contact Radiology Diagnoses Malignant neoplasm of left breast in female, estrogen receptor positive, unspecified site of breast Procedures MRI Breast wwo Contrast Caitlyn Key MD [facility] [place] [address] [place] [address] Referral ID Status Reason Start Date Expiration Date V isits Requested Visits Authorized [id number] Closed Specialty Service Requested 06/07/2023 12/07/2024 1 1 Reason for Visit * Diagnostic Test (Routine) - Closed Specialty Diagnoses / Procedures Referred By Mike jalloh Referred To Contact Radiology Diagnoses Malignant neoplasm of left breast in female, estrogen receptor positive, unspecified site of breast Procedures MRI Breast wwo Contrast Caitlyn Key MD [facility] [place] [address] [place] [address] Referral ID Status Reason Start Date Expiration Date V isits Requested Visits Authorized [id number] Closed Specialty Service Requested 06/07/2023 12/07/2024 1 1 Encounter Details Date Type Department Care Team (Latest Contact Info) Description 06/08/2023 2:47 PM EDT - 06/08/2023 11:59 PM EDT [place] [address] Caitlyn Hirsch MD [facility] [place] [address] Malignant neoplasm of left breast in female, [...] things needed for daily living? No 06/09/2023 [facility] Inpatient Questions Answer [...] daily. 03/15/2022 fluticasone propionate (Flonase) 50 mcg/actuation [place], Suspension 1 spray by Each Nare route [...] TH Visit (TeleHealth) H[place]ology [place] [address] Kati Burnette MD [facility] DR HEMATOLOGY [place] [address] 01/24/2024 9:30 AM EST Appointment XRay at [address] [place] [address] Jimmy Swann MD [facility] [place] [address] 01/24/2024 11:00 AM EST Office Visit [place] [phone] Regulo Wang PA [facility] [place] [address] 01/24/2024 2:45 PM EST [place]oint[place] [address] 01/24/2024 3:45 PM EST Office [place] [address] Caitlyn Hirsch MD [facility] [place] [address] 03/20/2024 9:00 AM EST Office Visit Hematology [place] [address] Ericka Forrest, [facility] DR HEMATOLOGY [place] [address] 07/29/2024 2:00 PM EDT Office Visit Radiation Oncology at [address] [address] Kasie Marte MD [facility] DR [place] [address] documented as of this encounter Procedures Procedure Name Priority Date/Time Associated Diagnosis Comments MRI BREAST WWO CONTRAST BILAT Routine 06/08/2023 3:47 PM EDT Malignant neoplasm of left breast in female, estrogen receptor positive, unspecified site of breast documented in this encounter Results * MRI Breast wwo Contrast Bilat (06/08/2023 3:47 PM EDT) WORKSTATION ID [id number] 1 DH RAD Anatomical Region Laterality Modality Breast Bilateral Magnetic Resonan ce Impressions 06/11/2023 10:26 AM EDT Left Breast: Known left breast malignancy is a 3.0 cm irregular mass in the upper inner left breast at 11:00, 7 cm from the nipple. The biopsy marker clip is at the mass. No additional lesions in the left breast. Single prominent left axillary lymph node. Right Breast: No MRI evidence of malignancy. No evidence of right axillary adenopathy. RECOMMENDATION: ??1. Definitive treatment. 2. Left axillary ultrasound and possible biopsy may be considered. FINAL ASSESSMENT: LEFT BREAST: BI-RADS Category 6: Known Biopsy-Proven Malignancy RIGHT BREAST: BI-RADS Category 1: Negative Thank you for letting us participate in the care of this patient. ??If you are a health care provider and have any questions regarding this report, please contact the number below. ??For patients who have questions please contact the health rn wound care that requested your imaging first. ? Electronically signed by: Elen Pulliam MD, [facility] ([phone]), at 06/11/2023 10:26 AM Narrative 06/11/2023 10:26 AM EDT EXAMINATION: MRI BREAST WWO CONTRAST BILAT CLINICAL INDICATION: Recent diagnosis Left breast cancer, IDC and DCIS; S/P biopsy 06/05/23. History of left cyst aspiration and cyst removal 1972. ??No family history breast cancer. TECHNIQUE: Multiplanar sequences were obtained pre- and post- Dotarem enhancement, to include SPGR weighted dynamic run-off and subtraction sequences obtained after the intravenous administration of 15 ccs of Dotarem. Computer algorithm analysis for lesion detection and kinetic contrast enhancement curve analysis was performed, using [employer] software. COMPARISON STUDIES: Compared and/or correlated with prior studies including prior mammograms most recent 05/26/2023, left breast ultrasound and postprocedure left mammogram 06/05/2023; additional prior imaging. FINDINGS: Background Enhancement Pattern (first post Dotarem [...] There is moderate parenchymal enhancement with multiple scattered T2 hyperintense lesions consistent with fibrocystic change; the pattern is similar bilaterally. No additional discrete enhancing mass. Specifics of Left lesion [...] seen in the chest wall or skin. Caitlyn Hirsch MD IMG MRI ORDERABLE S documented in this encounter Visit Diagnoses Diagnosis Malignant neoplasm of left breast in female, estrogen receptor positive, unspecified site of breast documented in this encounter Administered Medications Inactive Administered Medications - up to 3 most recent administrations Medication Order MAR Action Action Date Dose Rate Site gadoterate meglumine (Dotarem) (0.5 mMol/mL) injection solution 0-100 mL 0-100 mL, Intravenous, ONCE PRN, 1 dose, Starting on Chiquis 524 at 1542, Until Chiquis 5/24 at 1542, Per Protocol, Radiology Contrast, Routine Given 06/08/2023 3:42 PM EDT 15 mLs documented in this encounter Care Teams Mine Promotor Relationship Specialty Start Date End Date Haylee Baptiste MD [address] [place] [address] PCP - General 01/21/10 documented as of this encounter
--- OUTSIDE RECORDS SUMMARY | 2023-12-15 12:37 | XMS_ITS | Encounter Summary ---
Author Organization [facility] [place] [address] Care Team Providers Care Account Executive Trainee Name Role Phone Haylee Baptiste MD Primary Care Provider [phone] Encounter Details Date Type Department Care Team (Latest Contact Info) Description 05/11/2023 12:43 PM EDT - 05/11/2023 11:59 PM EDT Hospital Encounter XRay at [address] [place] [address] Jimmy Swann MD [facility] [place] [address] S/p C6-7 ACDF 01/18/23 Shree Discharge Disposition: Home Social History Tobacco Use Types Packs/Day Years Used Date Smoking Tobacco: Never Smokeless Tobacco: Never Alcohol Use Standard Drinks/Week Comments No 0 (1 standard drink = 0.6 oz pur e alcohol) [facility] Inpatient Questions Answer Date Recorded Does [...] daily. 03/15/2022 fluticasone propionate (Flonase) 50 mcg/actuation [place], Suspension 1 spray by Each Nare route [...] (TeleHealth) Hematology [place] [address] Kati Burnette MD [facility] [place] [address] 01/24/2024 9:30 AM EST Appointment XRay at [address] [place] [phone] Jimmy Swann MD [facility] [place] [address] 01/24/2024 11:00 AM EST Office Visit Pain [place] [address] Regulo Wang PA [facility] [place] [address] 01/24/2024 2:45 PM EST App[place] [address] 01/24/2024 3:45 PM EST Office [place] [address] Caitlyn Hirsch MD [facility] DR GENERAL SURGERY [place], [place] [id number] 03/20/2024 9:00 AM EST Office Visit Hematology [place] [address] Ericka Forrest [facility] [place] DR [place] [address] 07/29/2024 2:00 PM EDT Office Visit Radiation Oncology at [address] [address] Kasie Marte MD [facility] [place] [address] documented as of this encounter Procedures Procedure Name Priority Date/Time Associated Diagnosis Comments XR CERVICAL SPINE 2 OR 3 VIEWS Routine 05/11/2023 12:53 PM EDT S/p C6-7 ACDF 01/18/23 Swann documented in this encounter Results * XR Cervical Spine 2 or 3 Views (05/11/2023 12:53 PM EDT) Anatomical Region Laterality Modality C-spine N/A Digital Radiogra phy Impressions 05/11/2023 1:21 PM EDT ACDF across C6-7 with maintained post surgical alignment and no hardware complications. C7 is partially obscured by overlapping structures. No subluxation or dynamic instability. Thank you for letting us participate in the care of this patient. ??If you are a health care provider and have any questions regarding this report, please contact the number below. ??For patients who have questions please contact the health home care provider that requested your imaging first. ? Narrative 05/11/2023 1:21 PM EDT EXAMINATION: XR CERVICAL SPINE 2 OR 3 VIEWS CLINICAL HISTORY: Please do lat flex-ext films, s/p acdf, , entered by ordering service TECHNIQUE: 2 views lateral cervical [id number] COMPARISON: February 2023 FINDINGS: C7 is partially obscured by overlapping structures. ACDF across C6-7 with anterior plate and screws and interbody graft material. Vertebral bodies: No vertebral body height loss Disk spaces: normal disc height Alignment: Flexion-extension: Unchanged vertebral body alignment. Soft tissues: No prevertebral soft tissue swelling. Procedure Note Gerda Yusuf MD - 05/11/2023 EXAMINATION: XR CERVICAL SPINE 2 OR 3 VIEWS CLINICAL HISTORY: Please do lat flex-ext films, s/p acdf, , entered byordering service TECHNIQUE: 2 views lateral cervical [id number] COMPARISON: February 2023 FINDINGS: C7 is partially obscured by overlapping structures. ACDF across C6-7 with anterior plate and screws and interbody graftmaterial. Vertebral bodies: No vertebral body height loss Disk spaces: normal disc height Alignment: Flexion-extension: Unchanged vertebral body alignment. Soft tissues: No prevertebral soft tissue swelling. IMPRESSION ACDF across C6-7 with maintained post surgical alignment and no hardware complications. C7 is partially obscured by overlapping structures. No subluxation or dynamic instability. Thank you for letting us participate in the care of this patient. If youare a health care provider and have any questions regarding this report,please contact the number below. For patients who have questions please contactthe health home care provider that requested your imaging first. Jimmy Swann MD IMG DX ORDERABLES documented in this encounter Visit Diagnoses Diagnosis S/p C6-7 ACDF 01/18/23 Shree Arthrodesis status documented in this encounter Care Teams Account Executive Trainee Relationship Specialty Start Date End Date Haylee Baptiste MD [address] [place] [address] PCP - General 01/21/10 documented as of this encounter
--- OUTSIDE RECORDS SUMMARY | 2023-12-15 12:37 | XMS_ITS | Encounter Summary ---
Author Organization [facility] Address [facility] [place] [address] Care Team Providers Care Vice President Of Marketing Name Role Phone Haylee Baptiste MD Primary Care Provider [phone] Encounter Details Date Type Department Care Team (Late st Contact Info) Description 05/26/2023 Ancillary Procedure Radiology Library at [facility] [place] [address] Haylee Baptiste MD [address] [place] [address] Social History Tobacco Use Types Packs/Day Years Used Date Smoking Tobacco: Never Smokeless Tobacco: Never Alcohol Use Standard Drinks/Week Comments No 0 (1 standard drink = 0.6 oz pur e alcohol) [facility] Inpatient Questions Answer Date Recorded Does [...] TH Visit (TeleHealth) Hematology and Oncology at [address] Kati Burnette MD [facility] DR [place] [address] 01/24/2024 9:30 AM EST Appointment XRay at [address] [place] [address] Jimmy Swann MD [facility] [place] [address] 01/24/2024 11:00 AM EST Office Visit [place] [address] Regulo Wang PA [facility] [place] [address] 01/24/2024 2:45 PM EST Appointment Mammography at [place] [address] 01/24/2024 3:45 PM EST Office Visit General Surgery at [address] Caitlyn Hirsch MD [facility] [place] [address] 03/20/2024 9:00 AM EST Office Visit Hematology and Oncology at [place] [phone] Ericka Forrest, [facility] DR [place] [address] 07/29/2024 2:00 PM EDT Office Visit Radiation Oncology at [address] [address] Kasie Marte MD [facility] DR RADIATION ONCOLOGY [place] [phone] documented as of this encounter Procedures Procedure Name Priority Date/Time Associated Diagnosis Comments FILM LIBRARY STORAGE ONLY MAMMO Routine 05/26/2023 12:00 AM EDT documented in this encounter Results * Film Library- Storage Only Mammo (05/26/2023 12:00 AM EDT) Narrative [facility] - 06/01/2023 3:19 PM EDT This exam is auto-finalizing. It's purpose is for storage only. Haylee Baptiste MD IMG FILM LIBRARY ORD ERABLES [place], [place] documented in this encounter Visit Diagnoses Not on filedocumented in this encounter Care Teams Vice President Of Marketing Relationship Specialty Start Date End Date Haylee Baptiste MD [address] [place] [address] PCP - General 01/21/10 documented as of this encounter
--- OUTSIDE RECORDS SUMMARY | 2023-12-15 12:37 | XMS_ITS | Encounter Summary ---
Author Organization [facility] [place] [address] Care Team Providers Care Electric Motor Repairing Supervisor Name Role Phone Haylee Baptiste MD Primary Care Provider [phone] Encounter Details Date Type Department Care Team (Late st Contact Info) Description 04/21/2023 Telephone Pain [place] [phone] Caitlyn Choe Social History Tobacco Use Types Packs/Day Years [...] Miscellaneous Notes * Telephone Encounter - Caitlyn Choe - 04/21/2023 12:01 PM EDT LVM 04/21/23 in regards to rescheduling an appointment & xray prior with Haylee Eckert APRN. Please call [phone]. documented in this encounter Plan of Treatment Upcoming Encounters Date Type Department Care Team (Late st Contact Info) Description 01/09/2024 2:20 PM EST TH Visit (TeleHealth) [place]ology [place] [address] Kati Burnette MD [facility] [place] [address] 01/24/2024 9:30 AM EST Appointment XRay at [address] Jimmy Swann MD [facility] [place] [address] 01/24/2024 11:00 AM EST Office Visit Pain and Spine Center at [address] Regulo Wang PA [facility] [place] [address] 01/24/2024 2:45 PM EST Appointment Mammography at [place] [address] 01/24/2024 3:45 PM EST Office Visit General Surgery at [address] Caitlyn Hirsch MD [facility] [place] [address] 03/20/2024 9:00 AM EST Office Visit Hematology and Oncology at [place] [phone] Ericka Forrest, [facility] [place] [address] 07/29/2024 2:00 PM EDT Office Visit Radiation Oncology at [address] [address] Kasie Marte MD [facility] [place] [address] documented as of this encounter Visit Diagnoses Not on filedocumented in this encounter Care Teams Electric Motor Repairing Supervisor Relationship Specialty Start Date End Date Haylee Baptiste MD [address] [place] [address] PCP - General 01/21/10 documented as of this encounter
--- OUTSIDE RECORDS SUMMARY | 2023-12-15 12:37 | XMS_ITS | Encounter Summary ---
Author Organization [facility] Address [facility] [place] [address] Care Team Providers Care 411 Directory Assistance Operator Name Role Phone Haylee Baptiste MD Primary Care Provider [phone] Encounter Details Date Type Department Care Team (Late st Contact Info) Description 05/30/2023 Ancillary Procedure Radiology Library at [facility] [place] [address] Haylee Baptiste MD [address] [place] [address] Social History Tobacco Use Types [...] TH Visit (TeleHealth) Hematology and Oncology at [address] Kati Burnette MD [facility] DR HEMATOLOGY [place] [address] 01/24/2024 9:30 AM EST Appointment XRay at [address] [place] [address] Jimmy Swann MD [facility] [place] [address] 01/24/2024 11:00 AM EST Office Visit [place] [address] Regulo Wang PA [facility] [place] [address] 01/24/2024 2:45 PM EST Appointment Mammography at [place] [address] 01/24/2024 3:45 PM EST Office Visit General Surgery at [address] Caitlyn Hirsch MD [facility] [place] [address] 03/20/2024 9:00 AM EST Office Visit Hematology and Oncology at [place] [phone] Ericka Forrest, [facility] DR HEMATOLOGY [place] [address] 07/29/2024 2:00 PM EDT Office Visit Radiation Oncology at [address] [address] Kasie Marte MD [facility] DR RADIATION ONCOLOGY [place] [phone] documented as of this encounter Procedures Procedure Name Priority Date/Time Associated Diagnosis Comments FILM LIBRARY-STORAGE ONLY US BREAST Routine 05/30/2023 12:00 AM EDT documented in this encounter Results * Film Library Storage Only US Breast (05/30/2023 12:00 AM EDT) Narrative [facility] - 06/01/2023 3:19 PM EDT This exam is auto-finalizing. It's purpose is for storage only. Haylee Baptiste MD IMG FILM LIBRARY ORD ERABLES [place], [place] documented in this encounter Visit Diagnoses Not on filedocumented in this encounter Care Teams 411 Directory Assistance Operator Relationship Specialty Start Date End Date Haylee Baptiste MD [address] [place] [address] PCP - General 01/21/10 documented as of this encounter
--- OUTSIDE RECORDS SUMMARY | 2023-12-15 12:37 | XMS_ITS | Encounter Summary ---
Author Organization [facility] Address [facility] [place] [address] Care Team Providers Care Insecticide Expert Name Role Phone Haylee Baptiste MD Primary Care Provider [phone] Encounter Details Date Type Department Care Team (Latest Contact Info) Description 06/05/2023 Travel Social History Tobacco Use Types Packs/Day Years Used Date Smoking Tobacco: Never Smokeless Tobacco: Never Alcohol Use Standard Drinks/Week Comments No 0 (1 standard drink = 0.6 oz pur e alcohol) [facility] Inpatient Questions Answer Date Recorded Does [...] TH Visit (TeleHealth) [place]ology [place] [address] Kati Burnette MD [facility] DR HEMATOLOGY [place] [address] 01/24/2024 9:30 AM EST Appointment XRay at [address] [place] [address] Jimmy Swann MD [facility] [place] [address] 01/24/2024 11:00 AM EST Office Visit Pain and Spine Center at [place] [address] Regulo Wang PA [facility] [place] [address] 01/24/2024 2:45 PM EST Appointment Mammography at [place] [address] 01/24/2024 3:45 PM EST Office Visit General Surgery at [place] [address] Caitlyn Hirsch MD [facility] [place] [address] 03/20/2024 9:00 AM EST Office Visit Hematology and Oncology at [place] [address] Ericka Forrest, [facility] [place] [address] 07/29/2024 2:00 PM EDT Office Visit Radiation Oncology at [address] [address] Kasie Marte MD [facility] [place] [address] documented as of this encounter Visit Diagnoses Not on filedocumented in this encounter Care Teams Insecticide Expert Relationship Specialty Start Date End Date Haylee Baptiste MD [address] [place] [address] PCP - General 01/21/10 documented as of this encounter
--- OUTSIDE RECORDS SUMMARY | 2023-12-15 12:37 | XMS_ITS | Encounter Summary ---
Author Organization [facility] Address [facility] [place] [address] Care Team Providers Care Streets And Buildings Decorator Name Role Phone Haylee Baptiste MD Primary Care Provider [phone] Encounter Details Date Type Department Care Team (Latest Contact Info) Description 05/10/2023 Travel Social History Tobacco Use Types Packs/Day Years Used Date Smoking Tobacco: Never Smokeless Tobacco: Never Alcohol Use Standard Drinks/Week Comments No 0 (1 standard drink = 0.6 oz pur e alcohol) [facility] Inpatient Questions Answer Date Recorded Does Anyone [...] TH Visit (TeleHealth) Hematology [place] [address] Kati Burnette MD [facility] DR [place] [address] 01/24/2024 9:30 AM EST Appointment XRay at [address] [place] [address] Jimmy Swann MD [facility] [place] [address] 01/24/2024 11:00 AM EST Office Visit Pain and Spine Center at [place] [address] Regulo Wang PA [facility] [place] [address] 01/24/2024 2:45 PM EST Appointment Mammography at [place] [address] 01/24/2024 3:45 PM EST Office Visit General Surgery at [place] [address] Caitlyn Hirsch MD [facility] [place] [address] 03/20/2024 9:00 AM EST Office Visit Hematology and Oncology at [place] [address] Ericka Forrest, [facility] DR [place] [address] 07/29/2024 2:00 PM EDT Office Visit Radiation Oncology at [address] [address] Kasie Marte MD [facility] [place] [address] documented as of this encounter Visit Diagnoses Not on filedocumented in this encounter Care Teams Streets And Buildings Decorator Relationship Specialty Start Date End Date Haylee Baptiste MD [address] [place] [address] PCP - General 01/21/10 documented as of this encounter
--- OUTSIDE RECORDS SUMMARY | 2023-12-15 12:37 | XMS_ITS | Encounter Summary ---
Author Organization [facility] Address [facility] [place] [address] Care Team Providers Care Compliance Nurse Name Role Phone Haylee Baptiste MD Primary Care Provider [phone] Encounter Details Date Type Department Care Team (Late st Contact Info) Description 04/26/2023 3:30 PM EDT Office [place] [address] Tom Anna, DO [facility] [place] [address] Type 2 diabetes mellitus with hyperglycemia, with long-term current use of insulin Social History Tobacco Use Types Packs/Day Years Used Date Smoking Tobacco: Never Smokeless Tobacco: Never Alcohol Use Standard Drinks/Week Comments No 0 (1 standard drink = 0.6 oz pur e alcohol) [facility] Inpatient Questions Answer Date Recorded Does [...] Sign Reading Time Taken Comments Blood Pressure 133/79 04/26/2023 2:48 PM EDT Pulse 83 04/26/2023 2:48 PM EDT Temperature 36.4 ??C (97.6 ??F) 04/26/2023 2:48 PM ED T Respiratory Rate - - Oxygen Saturation 99% 04/26/2023 2:48 PM EDT Inhaled Oxygen Concentration - - Weight 73.6 kg (162 lb 3.2 oz) 04/26/2023 2:48 P M EDT Height 157.5 cm (5' 2) 04/26/2023 2:48 PM EDT Body Mass Index 29.67 04/26/2023 2:48 PM EDT documented in this encounter Patient Instructions * Patient Instructions* Tom Anna DO - 04/26/2023 3:30 PM EDT Plan: 1. Will increase U-500 dosing 25 units q breakfast, 10 units q lunch, and 25 units q dinner. 2. Blood glucose monitoring - continue Libre2, CGM reviewed today 3. Diet - low fat/low carb diet 4. Exercise - weight-bearing exercise 30 min/day, as tolerated 5. Continue Trulicity to 4.5mg weekly 6. Patient to improve adherence to atorvastatin and repeat LDL at next visit, goal at least < 70. If not at goal consider switch to rosuvastatin or addition of zetia 7. F/u in 6 months documented in this encounter Progress Notes * Tom Anna DO - 04/26/2023 3:30 PM EDT Endocrine Outpatient Visit Date of Consultation: 04/26/2023 Consult Requested by: PCP Reason for Consultation: Nallely Velazquez is a 68 y.o. female with PMH significant for recent NSTEMI s/p PCI in August 2021, HTN, IDDM, CKD, Fibromyalgia is referred to endocrine clinic for further management of T2DM. Diabetes History: Nallely Velazquez has had diabetes For about 20 years. She states she first was found to have gestational diabetes with her son 36 years ago. About 10-15 years after that, patient was diagnosed with diabetes and initially started on an oral regimen. Patient states that due to intolerance of heroral medications which included metformin, a sulfonylurea (glyburide per patient), and januvia, anddue to persistent hyperglycemia, she was transitioned to insulin, and eventually transitioned to U-500. Patient states that she initially had been taking 50 units tid of U-500, but recently (about 6 weeks ago) was started on trulicity 0.75 (she took 4 doses) which has been increased to trulicity 1.5 (she missed her second dose yesterday). Since starting the Trulicity, patient states that her insulin requirements have been decreasing, and when she originally saw us was taking 30 units of U-500 tid ac. She states she does have occasional episodes of hypoglycemia on this regimen which only happen around 1-3 pm and do not have any relation to her meals. Plan from visit 09/02/21 - U-500 dose 15 units bid ac with dose adjustments, continue trulicity 1.5 weekly Plan from 10/2021: Since being on the 15 units bid ac of the U-500, patient states that her blood glucose has typically been 180-220s at night, and between 80-180 in the morning. Review of her CGM demonstrates predominately post-prandial hyperglycemia. At 10/2021 visit, trulicity was increased to 3.0mg weekly, U-500 dose adjusted to 25/11/14. 01/25/23 Patient appears to have been somewhat lost to follow up since her last appointment with me in 10/2021. Her current regimen is U-500 20/11/14, Trulicity 3.0mg weekly, and her PCP started her on insulinlevemir 10 units qHs. She was recently in the hospital for cervical spine surgery earlier this month, at which time her A1c was checked and it was 9.6% (she states about 1 year ago her A1c was around7.8% however due to dental surgery she was eating a lot of carbs, and has not been able to get it lower since that point). She presents today for follow up, states she is not having significant hypoglycemia, and is interested in further management of her diabetes. She notes that she doesn't have true lows but does not feel well below 100. 04/26/23: During her last visit, levemir was stopped and U-50 dose was increased to 25/11/24. On that regimenBG levels have been much improved. CGM reviewed in office today, there is a portion of her CGM datamissing towards the end of the day, it appears patient was not scanning 3x per day which is why some data was missing. Avg BG now 174 much improved from prior. Her LDL is also a bit higher on most recent labs, it does appear she had recent surgery and has missed some of her atorvastatin doses. Diagnosed with T2DM at the age of 46 Current home regimen: 25/11/24 units bid U-500, trulicity 4.5 mg weekly BG Monitoring: Libre2 CGM reviewed: CGM active 61% of time (patient was inpatient during some of this time) TIR 66%, High 28%, very high 6% low 0%, very low 0% GMI n/a CV: 22.7% Most recent HgA1C on 01/2023 9.6%, A1c from today is pending Typical Diet: 3 meals and 1-2 snacks a day Breakfast- oatmeal glass of milk Lunch- balogna sandwich Supper- ham steak mashed potatoes Snacks - one pudding Trouble with hypoglycemia: Not in past few months Hypoglycemia unawareness: no Family h/o DM: mother and father both with T1DM Injection site: abdomen Recent admission with DKA: no Diabetes Complications Status: Eyes: no h/o diabetic retinopathy Kidneys: CKD II-III Feet: No known neuropathy Cardiac: NSTEMI Prevention: Last eye check within last year, has cataracts last microalbumin: none in chart last Cr: 1.01 (01/2023 last lipid panel: 04/2023 LDL 99 regular marine 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: no, but foot exam checked by PCP regularly ACEi: yes ASA: yes Statin: yes ROS: 12 Point ROS negative except for what has been documented above PMH Past Medical History: Diagnosis Date CAD (coronary artery disease) Cervical radiculopathy at C7 CKD (chronic kidney disease) stage 3, GFR 30-59 ml/min Diabetes mellitus GERD (gastroesophageal reflux disease) Hiatal hernia HLD (hyperlipidemia) Hypertension Allergy: Allergies Allergen Reactions Amlodipine Other Reaction(s): cough [...] skin reaction Lisinopril Other Reaction(s): cough, other Social history: Social History Tobacco Use Smoking status: Never Smokeless tobacco: Never Vaping Use Vaping Use: Never used Substance Use Topics Alcohol use: No Drug use: No Family history: Family History Problem Relation Age of Onset Heart Disease Mother Diabetes Mother Diabetes Father Cancer Neg Hx Vitals Patient Vitals for the past 24 hrs: Temp Pulse BP SpO2 04/26/23 1448 36.4 ??C (97.6 ??F) 83 133/79 99 % Physical Exam: Gen: WDWN F in NAD, talking in clear sentences. HEENT: no LAD, oral mucus membranes moist, has cervical neck brace on currently Neuro: Moving all extremities. Grossly non-focal Psych: Normal mood and affect Assessment: Ms. Selam Velazquez is a 68 y.o. years old female with PMH significant for DM (Last A1C of 9.6%) is here for further management of type 2 DM. # Moderately Well Controlled 2 DM with CAD Patient presents 3 month from last visit to follow up on diabetes care. She is doing much better with her BG control on the new regimen. While her CGM is much improved (TIR went from 10%-66%), it does still demonstrate hyperglycemia, particularly after breakfast. I do think we can plan on increasing am U-500 dose for now and continue her regimen otherwise. Our goal for her will be A1c < 8%. Noindication for SGLT2 in setting of prior UTI / yeast infections. Plan: 1. Will increase U-500 dosing 25 units q breakfast, 10 units q lunch, and 25 units q dinner. 2. Blood glucose monitoring - continue Libre2, CGM reviewed today. Advised patient to scan 3x per day 3. Diet - low fat/low carb diet 4. Exercise - weight-bearing exercise 30 min/day, as tolerated 5. Continue Trulicity to 4.5mg weekly 6. Patient to improve adherence to atorvastatin and repeat LDL at next visit, goal at least < 70. If not at goal consider switch to rosuvastatin or addition of zetia 7. F/u in 6 months We have reviewed our plan outlined as above with the patient and patient verbalized understanding and is agreeable with this management. All questions were answered and most of the time was spent on counseling about pertinent medical conditions, medications adjustment including pros and cons of starting medication if indicated, the diagnostic and therapeutic decisions, and coordination of care. Thank you for allowing us to provide care for this patient. Daisy Anna PGY5, Endocrinology Fellow Pager: [phone] Addendum: of note, patient does have elevated ALP on check of liver function tests. She does not know if her prior DXA scans demonstrated osteopenia or osteoporosis, but she is currently only on vitamin D. When patient comes for next visit in 6 months would recommend getting GGT, if non-biliary perform secondary evaluation of bone related ALP elevation. * Eugenio Kerns MD - 04/26/2023 3:30 PM EDT I have seen the patient in person and reviewed the Endocrine Fellow's above history and I agree with the details as written. The assessment and plan were formulated in discussion with me and I agree with them as documented. Omar Will. Section of Endocrinology [facility] documented in this encounter Plan of Treatment Upcoming Encounters Date Type Department Care Team (Late st Contact Info) Description 01/09/2024 2:20 PM EST TH Visit (TeleHealth) Hematology [place] [address] Kati Burnette MD [facility] [place] [address] 01/24/2024 9:30 AM EST Appointment XRay at [address] [place] [phone] Jimmy Swann MD [facility] [address] 01/24/2024 11:00 AM EST Office Visit [place] [address] Regulo Wang PA [facility] [place] [address] 01/24/2024 2:45 PM EST Appointment Mammography at [place] [phone] 01/24/2024 3:45 PM EST Office Visit General Surgery at [address] Caitlyn Hirsch MD [facility] [place] [address] 03/20/2024 9:00 AM EST Office Visit Hematology and Oncology at [place] [phone] Ericka Forrest, [facility] [place] [address] 07/29/2024 2:00 PM EDT Office Visit Radiation Oncology at [address] [phone] Kasie Marte MD [facility] [place] [address] documented as of this encounter Visit Diagnoses Diagnosis Type 2 diabetes mellitus with hyperglycemia, with long-term current use of insulin documented in this encounter Care Teams Compliance Nurse Relationship Specialty Start Date End Date Haylee Baptiste MD [address] [place] [address] PCP - General 01/21/10 documented as of this encounter
--- OUTSIDE RECORDS SUMMARY | 2023-12-15 12:37 | XMS_ITS | Encounter Summary ---
Author Organization [facility] [place] [address] Care Team Providers Care Charter Coach Driver Name Role Phone Haylee Baptiste MD Primary Care Provider [phone] Encounter Details Date Type Department Care Team (Late st Contact Info) Description 06/02/2023 Orders Only [place] [address] Jesse Hammond MD [facility] [place] [address] Social History Tobacco Use Types Packs/Day Years Used Date Smoking Tobacco: Never Smokeless Tobacco: Never Alcohol Use Standard Drinks/Week Comments No 0 (1 standard drink = 0.6 oz pur e alcohol) [facility] Inpatient Questions Answer Date Recorded [...] as of this encounter Progress Notes * Jesse Hammond MD - 06/02/2023 4:23 PM EDT Pre-procedure note for needle breast biopsies performed in radiology. Procedure date: Scheduled for: Procedure type: left breast ultrasound guided biopsy Allergies: Amlodipine, Iodinated contrast media, Iodine and iodide containing products, Metformin, Shellfish derived, Codeine phosphate, Meperidine hcl, Morphine sulfate, Oxaprozin, Prednisone, Sulindac, Hepatitis b virus vaccine, and Lisinopril Medications: Current Outpatient Medications: dulaglutide (Trulicity) 4.5 mg/0.5 mL Pen Injector, Inject 0.5 mLs subcutaneously once a week. Indications: type 2 diabetes mellitus, Disp: 6 mL, Rfl: 3 polyethylene glycoL (Miralax) 17 gram oral powder packet, Take 17 g by mouth 2 times daily as needed (constipation)., Disp: , Rfl: senna-docusate (Pericolace) 8.6-50 mg Tablet, Take 2 tablets by mouth 2 times daily as needed for Constipation., Disp: , Rfl: atorvastatin (Lipitor) 80 mg tablet, Take 80 mg by mouth nightly., Disp: , Rfl: benzonatate (Tessalon Perles) 100 mg capsule, Take 100 mg by mouth 3 times daily as needed., Disp: , Rfl: EPINEPHrine 0.3 mg/0.3 mL Auto-Injector, Inject 0.3 mg into the muscle once as needed., Disp: , Rfl: FreeStyle Alonzo 14 Day Sensor Kit, , Disp: , Rfl: fluticasone propion-salmeteroL (ADVAIR HFA) 230-21 mcg/actuation HFA Aerosol Inhaler, Inhale 1 puffinto the lungs 2 times daily., Disp: , Rfl: fluticasone propionate (Flonase) 50 mcg/actuation [place], Suspension, 1 spray by Each Nare route as needed., Disp: , Rfl: gabapentin (Neurontin) 100 mg capsule, Take 100 mg by mouth nightly as needed., Disp: , Rfl: Levemir FlexPen 100 unit/mL (3 mL) Insulin Pen, Inject 10 Units subcutaneously nightly. *taking 10 units at night*, Disp: , Rfl: isosorbide mononitrate (Imdur) 60 mg ER 24 hr tablet, Take 60 mg by mouth daily., Disp: , Rfl: losartan (Cozaar) 100 mg tablet, Take 100 mg by mouth Daily., Disp: , Rfl: montelukast (Singulair) 10 mg tablet, Take 10 mg by mouth daily., Disp: , Rfl: ondansetron (Zofran) 4 mg tablet, Take 4 mg by mouth as needed., Disp: , Rfl: prednisoLONE acetate (Pred-Forte) 1 % Drops, Suspension, Place 1 drop into the right eye as needed., Disp: , Rfl: triamcinolone (ARISTOCORT) 0.5 % Cream, Apply topically 3 times daily as needed., Disp: , Rfl: insulin regular human U-500 (HumuLIN R U-500, Conc, Kwikpen) 500 unit/mL (3 mL) Insulin Pen, Take 10 units with breakfast, 5 units at lunch and 10 units at bedtime (Patient taking differently: Take 15 units with breakfast,10 units at lunch and 15 units at bedtime), Disp: , Rfl: metoprolol succinate XL (Toprol-XL) 50 mg Tablet Sustained Release 24 hr, Take 1 tablet by mouth daily., Disp: 30 tablet, Rfl: 12 nitroGLYcerin (Nitrostat) 0.4 mg Tablet, Sublingual, Place 1 tablet under the tongue every 5 minutes as needed for Chest pain., Disp: 25 tablet, Rfl: PRN albuteroL 90 mcg/actuation HFA Aerosol Inhaler, Every 4 hours., Disp: , Rfl: olmesartan (BENICAR) 20 mg Tablet, Take 20 mg by mouth daily., Disp: , Rfl: pantoprazole EC (Protonix) 20 mg Tablet, Delayed Release (E.C.), Take 20 mg by mouth daily., Disp: , Rfl: Anticoagulation status: stopped on: N/A Imaging reviewed and procedural plan approved by Dr. JESSE HAMMOND MD documented in this encounter Plan of Treatment Upcoming Encounters Date Type Department Care Team (Late st Contact Info) Description 01/09/2024 2:20 PM EST TH Visit (TeleHealth) Hematology [place] [address] Kati Burnette MD [facility] DR HEMATOLOG[place] [address] 01/24/2024 9:30 AM EST Appointment [place]Ray [place] [address] [place] [phone] Jimmy Swann MD [facility] [place] [place] [address] 01/24/2024 11:00 AM EST Office Visit Pain and Spine Center at [place] [address] Regulo Wang PA [facility] [place] [address] 01/24/2024 2:45 PM EST Appointment Mammography at [place] [address] 01/24/2024 3:45 PM EST Office Visit General Surgery at [address] Caitlyn Hirsch MD [facility] [place] [address] 03/20/2024 9:00 AM EST Office Visit Hematology and Oncology at [place] [phone] Ericka Forrest, [facility] DR HEMATOLOGY [place] [address] 07/29/2024 2:00 PM EDT Office Visit Radiation Oncology at [address] [phone] Kasie Marte MD [facility] [place] [address] documented as of this encounter Visit Diagnoses Not on filedocumented in this encounter Care Teams Charter Coach Driver Relationship Specialty Start Date End Date Haylee Baptiste MD [address] [place] [address] PCP - General 01/21/10 documented as of this encounter
--- OUTSIDE RECORDS SUMMARY | 2023-12-15 12:37 | XMS_ITS | Encounter Summary ---
Author Organization [facility] [place] [address] Care Team Providers Care Professor Of Sport Management Name Role Phone Haylee Baptiste MD Primary Care Provider [phone] Reason for Visit * Reason Comments Neck Pain Encounter Details Date Type Department Care Team (Late st Contact Info) Description 02/16/2023 1:00 PM EST Office Visit [place] [address] Jimmy Swann MD [facility] [place] [address] S/p C6-7 ACDF 01/18/23 Shree Social History Tobacco Use Types Packs/Day Years Used Date Smoking Tobacco: Never Smokeless Tobacco: Never Alcohol Use Standard Drinks/Week Comments No 0 (1 standard drink = 0.6 oz pur e alcohol) [facility] Inpatient Questions Answer Date Recorded Does Anyone [...] Sign Reading Time Taken Comments Blood Pressure - - Pulse - - Temperature - - Respiratory Rate - - Oxygen Saturation - - Inhaled Oxygen Concentration - - Weight 73 kg (161 lb) 02/16/2023 12:58 PM EST Height 157.5 cm (5' 2) 02/16/2023 12:58 PM EST Body Mass Index 29.45 02/16/2023 12:58 PM EST documented in this encounter Progress Notes * Jimmy Swann MD - 02/16/2023 1:00 PM EST Date of surgery: 01/18/2023 Surgery: C6/C7 ACDF for myelopathy with left hand symptoms Interval history: Ms. Selam Velazquez returns today about 4 weeks out from surgery. She is doing well. Her left hand numbness is about the same as before surgery. She denies any significant neck or upperextremity pain. Her swallowing is almost back to normal. She denies any fevers, chills, or drainagefrom the incision. She is not taking any pain medication. She wants to go back to work tomorrow. Physical exam General: Patient is comfortable, no acute distress Neck: She has a well-healed incision. There is no drainage or surrounding erythema. Neurological exam: She has 5/5 strength of all upper extremity motors. She has mildly altered sensation throughout her left hand. Imaging: Lateral x-ray of the cervical spine from 02/16/2023 was reviewed. This demonstrates some subtle settling of the graft into C7. There are no signs of hardware loosening or failure. Assessment/plan: Ms. Selam Velazquez returns today about 4 weeks out from surgery. She is doing well. Iencouraged her to gradually advance her activities as tolerated. She will follow-up with my PA or NAME PLATE STAMPING MACHINE OPERATOR in 2 months with repeat x-rays at that time. I gave her a note saying she can return to work tomorrow documented in this encounter Plan of Treatment Upcoming Encounters Date Type Department Care Team (Late st Contact Info) Description 01/09/2024 2:20 PM EST Visit (TeleHealth) Hematology [place] [address] Kati Burnette MD [facility] [place] [address] 01/24/2024 9:30 AM EST Appointment XRay [place] [address] [place] [phone] Jimmy Swann MD [facility] [place] [place] [address] 01/24/2024 11:00 AM EST Office Visit Pain and Spine Center at [address] Regulo Wang PA [facility] [address] 01/24/2024 2:45 PM EST [place] [address] 01/24/2024 3:45 PM EST Office Visit General Surgery at [place] [address] Caitlyn Hirsch MD [facility] [place] [address] 03/20/2024 9:00 AM EST Office Visit Hematology and Oncology at [place] [phone] Ericka Forrest, [facility] [place] [address] 07/29/2024 2:00 PM EDT Office Visit Radiation Oncology at [address] [phone] Kasie Marte MD [facility] [place] [place] [address] documented as of this encounter Results * XR Cervical Spine [...] who have questions please contact the health career services coordinator that requested your imaging first. ? Electronically signed by: Gerda Yusuf MD, [facility] ([phone]), at 05/11/2023 1:21 PM Narrative 05/11/2023 1:21 PM EDT EXAMINATION: XR CERVICAL SPINE 2 OR 3 VIEWS CLINICAL HISTORY: Please do lat flex-ext films, s/p acdf, , entered by ordering service TECHNIQUE: 2 views lateral cervical [id number] COMPARISON: February 2023 FINDINGS: C7 is partially [...] byordering service TECHNIQUE: 2 views lateral cervical [id number] COMPARISON: February 2023 FINDINGS: C7 is partially [...] patients who have questions please contactthe health career services coordinator that requested your imaging first. Electronically signed by: Gerda Yusuf MD, [facility]([phone]), at 05/11/2023 1:21 PM Jimmy Swann MD IMG DX ORDERABLES documented in this encounter Visit Diagnoses Diagnosis S/p C6-7 ACDF 01/18/23 Swann Arthrodesis status S/p C6-7 ACDF 01/18/23 Swann Arthrodesis status documented in this encounter Care Teams Professor Of Sport Management Relationship Specialty Start Date End Date Haylee Baptiste MD [address] [place] [address] PCP - General 01/21/10 documented as of this encounter
--- OUTSIDE RECORDS SUMMARY | 2023-12-15 12:37 | XMS_ITS | Encounter Summary ---
[place] [address] Care Team Providers Care Personal Banking Assistant Name Role Phone Haylee Baptiste MD Primary Care Provider [phone] Encounter Details Date Type Department Care Team (Latest Contact Info) Description 02/08/2023 12:45 PM EST Clinical Support [place] [address] Britt Mohan, RN Type 2 diabetes mellitus with hyperglycemia, with long-term current use of insulin Social History Tobacco Use Types Packs/Day Years Used Date Smoking Tobacco: Never Smokeless Tobacco: Never Alcohol Use Standard Drinks/Week Comments No 0 (1 standard drink = 0.6 oz pur e alcohol) [facility] Inpatient Questions Answer Date Recorded Does [...] as of this encounter Progress Notes * Britt Mohan, RN - 02/08/2023 12:45 PM EST General Information: DSME - Initial Referral: Tom Anna DO Endo: Tom Anna DO PCP: Haylee Baptiste MD Visit Type: Face to face What is your language preference? Ivorian Spoken: Ivorian Reading: Ivorian Distiller needed: No Distiller present during appointment: N/A Any difficulties with reading? No Any difficulties with math? No Barriers to Care/Learning/Indications for Individual DSMT Yes No No Barriers X Disease State Cognitive Disability Language Spoken Language Written Ivorian Language Financial Emotional/Behavioral Family Support Cultural Diversity Hearing Transportation Vision Low Literacy Diabetes Pathophysiology and Treatment Diabetes Type: Type 2 When diagnosed? 20 years ago Any previous diabetes education? Yes Last 3 HA1C's 01/18/2023 9.6 1 year ago 9.2 Summary of Recommendations/Education Plan and Next Steps The following are recommendations from the visit on 02/08/2023. Please see notes below for more details and complete visit summary. Taking Medication Recommendations: Continue medications as prescribed by your physician Do you know what medications you take? Yes, patient was able to name medications and dosages Do you have a list on you of your medications? Did not assess Do you have any issues obtaining or paying for your medications? No Monitoring Glucose Blood Glucose Testing: Alonzo Personal Targets: Before Meals: Reviewed guidelines of 80-130 2 Hours After Meals: Reviewed guidelines of 180 1-2 hours after eating Do you wear a CGM? Yes Do you have a working glucometer? Yes, multiple and supplies How often do you check your blood sugar? Uses Alonzo Do you know what to do if your CGM falls off or fails? Yes, patient states she checks with her glucometer What else about your health is important to monitor? Blood pressure, weight, sleep, mental health. Healthy Eating Eat 3 meals per day and 1 snack. Do not skip meals. Review carbohydrate counting, reading food labels, list of foods containing carbohydrates. Try to keep meals to 30-45 carbohydrates and snacks to 15-30 grams of carbohydrates. How many meals do you eat away from home? Did not assess Are you following any special diet? No Do you have any dietary restrictions? No Do you have any cultural considerations when preparing foods? No Do you have any problems purchasing or obtaining food? No Do you have a scale at home? Did not assess Do you know how to count carbohydrates? States she finds it difficult Time What you typically eat and drink and how much? Drinks: milk, coffee (black), diet soda Morning meal 1 slice of toast with jelly OR oatmeal 1 glass of milk Morning snack N/A Midday meal Bologna & mustard sandwich Diet soda Afternoon snack N/A Evening meal Meat & mashed potatoes Pre-made frozen casseroles Evening/Bedtime snack sherbet Being Active Exercise 3 days per week at least 20-30 minutes. When is best to exercise: Do you currently exercise? No Do you have any restrictions to exercise? Yes- recent neck surgery Do you have a place where you can exercise safely? Yes Reducing Risks Visit your PCP. Routine labs. Proper foot care and DAILY foot inspections. Annual eye exams. Don't smoke. Know your risk factors for cardiovascular disease. Take all medications as prescribed. Exercise. Stress reduction. Today's Teaching Patient was in hospital recently for neck surgery and had fasting BG level of 308. Patient states that she has not increased her Trulicity at this time because she wanted to finish up with dosages that she has. Soon she will increase to Trulicity 4.5mg weekly. Patient takes U-500 TID. Patient states that her BG levels have been at 200 or lower since discharge from the hospital. In reviewing data from [employer], some averages are 168. 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 Patient indicates that she is not good at carb counting. Reviewed with patient My Plate Method. Reviewed portion sizes. Discussed importance of protein and fruit and vegetables at each meal, if possible. Reviewed making choices with Building a Balanced Meal and using the Planning Healthy Meals handout. Goals What are your goals? Specific: Reduce A1C Measurable: Current A1C is 9.6 Attainable: Patient has labs ordered for next appointment on 04/26/2023 Relevant: Patient understands importance of having A1C of 7% and how it impacts wound healing and other body systems. Time Bound: Patient will have lower at next visit Handouts given and reviewed What is Diabetes? Know Your Numbers. Low Blood Glucose. High Blood Glucose. Foot Care for People with Diabetes. Building a Balanced Meal. Planning Healthy Meals. Plan Patient has follow up with provider on 04/26/2023. Patient will calls or send MyDH message to authorif she has any questions or feels she needs a follow up appointment. Total time spent 30 minutes spent with patient on diabetes education. Referring Provider Tom Anna DO Billing/Hotel Attendant Eugenio Kerns MD documented in this encounter Plan of Treatment Upcoming Encounters Date Type Department Care Team (Late st Contact Info) Description 01/09/2024 2:20 PM EST TH Visit (TeleHealth) Hematology and Oncology at [place] [address] Kati Burnette MD [facility] DR HEMATOLOGY [place] [address] 01/24/2024 9:30 AM EST Appointment XRay at [address] [place] [address] Jimmy Swann MD [facility] [place] [address] 01/24/2024 11:00 AM EST Office Visit Pain and Spine Center at [place] [address] Regulo Wang PA [facility] [address] [place] [address] 01/24/2024 2:45 PM EST Appointment Mammography at [place] [address] 01/24/2024 3:45 PM EST Office Visit General Surgery at [address] Caitlyn Hirsch MD [facility] [address] [place] [address] 03/20/2024 9:00 AM EST Office Visit Hematology and Oncology at [place] [phone] Ericka Forrest, [facility] [place] DR HEMATOLOGY [place] [address] 07/29/2024 2:00 PM EDT Office Visit Radiation Oncology at [address] [phone] Kasie Marte MD [facility] DR [place] [address] documented as of this encounter Visit Diagnoses Diagnosis Type 2 diabetes mellitus with hyperglycemia, with long-term current use of insulin documented in this encounter Care Teams Personal Banking Assistant Relationship Specialty Start Date End Date Haylee Baptiste MD [address] [place] [address] PCP - General 01/21/10 documented as of this encounter
--- OUTSIDE RECORDS SUMMARY | 2023-12-15 12:37 | XMS_ITS | Encounter Summary ---
Author Organization [facility] [place] [address] Care Team Providers Care Tetryl Wringer Operator Name Role Phone Haylee Baptiste MD Primary Care Provider [phone] Encounter Details Date Type Department Care Team (Latest Contact Info) Description 05/11/2023 Travel Social History Tobacco Use Types Packs/Day Years Used Date Smoking Tobacco: Never Smokeless Tobacco: Never Alcohol Use Standard Drinks/Week Comments No 0 (1 standard drink = 0.6 oz pur e alcohol) [facility] Inpatient Questions Answer Date Recorded Does Anyone [...] TH Visit (TeleHealth) [place] [address] Kati Burnette MD [facility] [place] [address] 01/24/2024 9:30 AM EST Appointment XRay at [address] [place] [address] Jimmy Swann MD [facility] [place] [address] 01/24/2024 11:00 AM EST Office Visit Pain and Spine Center at [place] [address] Regulo Wang PA [facility] [place] [address] 01/24/2024 2:45 PM EST Appointment Mammography at [place] [address] 01/24/2024 3:45 PM EST Office Visit General Surgery at [place] [address] Caitlyn Hirsch MD [facility] [place] [address] 03/20/2024 9:00 AM EST Office Visit Hematology and Oncology at [place] [address] Ericka Forrest, [facility] DR HEMATOLOGY [place] [address] 07/29/2024 2:00 PM EDT Office Visit Radiation Oncology at [address] [phone] Kasie Marte MD [facility] [place] [address] documented as of this encounter Visit Diagnoses Not on filedocumented in this encounter Care Teams Tetryl Wringer Operator Relationship Specialty Start Date End Date Haylee Baptiste MD [address] [place] [address] PCP - General 01/21/10 documented as of this encounter
--- OUTSIDE RECORDS SUMMARY | 2023-12-15 12:37 | XMS_ITS | Encounter Summary ---
Author Organization [facility] [place] [address] Care Team Providers Care Hydrochloric Acid Operator Name Role Phone Haylee Baptiste MD Primary Care Provider [phone] Reason for Referral * Diagnostic Test (Routine) - Closed Specialty Diagnoses / Procedures Referred By Mike jalloh Referred To Contact Radiology Diagnoses Malignant neoplasm of left breast in female, estrogen receptor positive, unspecified site of breast Procedures MRI Breast wwo Contrast Caitlyn Key MD [facility] [place] [address] [place] [address] Referral ID Status Reason Start Date Expiration Date V isits Requested Visits Authorized [id number] Closed Specialty Service Requested 06/07/2023 12/07/2024 1 1 Encounter Details Date Type Department Care Team (Late st Contact Info) Description 06/07/2023 Orders Only [place] [address] [facility] [place] [address] Malignant neoplasm of left breast in female, estrogen receptor positive, unspecified site of breast Social History Tobacco Use Types Packs/Day Years Used Date Smoking Tobacco: Never Smokeless Tobacco: Never Alcohol Use Standard Drinks/Week Comments No 0 (1 standard drink = 0.6 oz pur e alcohol) [facility] Inpatient Questions Answer Date Recorded Does Anyone [...] TH Visit (TeleHealth) Hematology and Oncology at [place] [phone] [facility] DR HEMATOLOGY [place] [address] 01/24/2024 9:30 AM EST Appointment XRay at [address] [place] [phone] Jimmy Swann MD [facility] [place] [address] 01/24/2024 11:00 AM EST Office Visit Pain and Spine Center at [place] [address] [facility] [place] [address] 01/24/2024 2:45 PM EST Appointment Mammography at [place] [address] 01/24/2024 3:45 PM EST Office Visit General Surgery at [place] [address] [facility] [place] [address] 03/20/2024 9:00 AM EST Office Visit Hematology and Oncology at [facility] [place] [phone] Ericka Forrest, [facility] HEMATOLOGY [place] [address] 07/29/2024 2:00 PM EDT Office Visit Radiation Oncology at [address] [phone] [facility] [place] [address] documented as of this encounter Results * MRI Breast wwo [...] have questions please contact the health career and technology education teacher that requested your imaging first. ? Electronically signed by: Elen Pulliam MD, [facility] ([phone]), at 06/11/2023 10:26 AM Narrative 06/11/2023 10:26 [...] contrast enhancement curve analysis was performed, using Eversight software. COMPARISON STUDIES: Compared and/or correlated with [...] Caitlyn Hirsch MD IMG MRI ORDERABLE S * (ABNORMAL) Comprehensive metabolic panel (non-fasting) (06/08/2023 [...] Alanine Aminotransferase 20 0 - 30 unit/L [facility] Alkaline Phosphatase 156(H) 35 - [...] MD CHEMISTRY ORDERAB LES [facility] [place] [phone] documented in this encounter Visit Diagnoses Diagnosis Malignant neoplasm of left breast in female, estrogen receptor positive, unspecified site of breast Malignant neoplasm of left breast in female, estrogen receptor positive, unspecified site of breast documented in this encounter Care Teams Hydrochloric Acid Operator Relationship Specialty Start Date End Date Haylee Baptiste MD [address] [place] [address] PCP - General 01/21/10 documented as of this encounter
--- OUTSIDE RECORDS SUMMARY | 2023-12-15 12:37 | XMS_ITS | Encounter Summary ---
Author Organization [facility] [place] [address] Care Team Providers Care Returned Goods Receiving Clerk Name Role Phone Haylee Baptiste MD Primary Care Provider [phone] Reason for Visit * Reason Comments Follow-up * Consultation (Routine) - Closed Specialty Diagnoses / Procedures Referred By Mike jalloh Referred To Contact General Surgery / Hematology and Oncology Diagnoses Breast cancer L IDC ER+ (dc) Procedures [facility] Haylee Baptiste MD [address] [place] [address] Regan Hirsch MD [facility] [place] [address] Referral ID Status Reason Start Date Expiration Date Visits Re quested Visits Authorized [id number] Closed 06/14/2023 06/13/2024 1 1 Encounter Details Date Type Department Care Team (Late st Contact Info) Description 06/14/2023 8:00 AM EDT Office Visit Hematology [place] [address] Regan Hirsch MD [facility] [address] Malignant neoplasm of upper-inner quadrant of left [...] Sign Reading Time Taken Comments Blood Pressure 121/108 06/14/2023 8:25 AM EDT Pulse 88 06/14/2023 8:25 AM EDT Temperature 36.4 ??C (97.5 ??F) 06/14/2023 8:25 AM ED T Respiratory Rate 16 06/14/2023 8:25 AM EDT Oxygen Saturation 100% 06/14/2023 8:25 AM EDT Inhaled Oxygen Concentration - - Weight 73.4 kg (161 lb 13.1 oz) 06/14/2023 8:25 AM EDT Height 157.5 cm (5' 2.01) 06/14/2023 8:25 AM ED T Body Mass Index 29.59 06/14/2023 8:25 AM EDT documented in this encounter Progress Notes * Regan Hirsch MD - 06/14/2023 8:00 AM EDT BREAST CLINIC OUTPATIENT CONSULTATION Patient: Nallely Velazquez : 1955 AGE: 68 y.o. CONSULTING PHYSICIAN: Regan Hirsch MD REFERRING PHYSICIAN: Haylee Baptiste PRIMARY CARE PHYSICIAN: Haylee Baptiste MD REASON FOR VISIT New patient visit HISTORY OF PRESENT ILLNESS: Nallely 68 y.o. [...] focal lobular features and DCIS, intermediate grade, ER/MN+ (>95% strong) HER2 negative by FISH. Katy [...] up after her gallbladder surgery. Past Medical History: Diagnosis Date CAD (coronary artery disease) Cervical radiculopathy at C7 CKD (chronic kidney disease) stage 3, GFR 30-59 ml/min Diabetes mellitus GERD (gastroesophageal reflux disease) Hiatal hernia HLD (hyperlipidemia) Hypertension Past Surgical History: Procedure Laterality Date IR NEPHROSTOMY TUBE PLACEMENT PERCUTANEOUS LEFT 09/27/2018 IR Nephrostomy Tube Placement Percutaneous Left 09/27/2018 Justin De La Cruz MD [facility] INTERVENTIONL RAD MAMMO US BIOPSY LEFT Left 06/05/2023 Mammo Us Biopsy Left 06/05/2023 Dorothy Hammond MD [facility] RAD MAMMOGRAPHY PRO ANTERIOR INSTRUMENTATION 2-3 VERTEBRAL SEGMENTS Midline 01/18/2023 ANT. SPINAL INSTRUMENTATION, 2-3 VERTEBRA, SEGMENTED (WRVU 11.94) performed by Jimmy Swann MD at [facility] MAIN OR PRO ARTHRODESIS, ANT INTERBODY,DECOMPRESSION; CERVICAL BELOW C2 Midline 01/18/2023 ARTHRODESIS, ANT INTERBODY,DECOMPRESSION; CERVICAL BELOW C2 (WRVU 25) performed by Jimmy Swann MD at [facility] MAIN OR PRO INSERT BIOMCHN DEV INTERVERTEBRAL DSC SPC W/ARTHRD Midline 01/18/2023 INSERTION INTERBODY BIOMECH DEV TO INTERVEBRAL DISC SPACE, EA INTERSPACE (WRVU 4.25) performed by Jimmy Swann MD at [facility] MAIN OR Allergies Allergen Reactions Amlodipine Other Reaction(s): cough [...] acetate, senna- docusate, and triamcinolone Family History Problem Relation Age of Onset Heart Disease Mother Diabetes Mother Diabetes Father Cancer Neg Hx Breast Cancer Neg Hx Ovarian Cancer Neg Hx Social History Tobacco Use Smoking status: Never Smokeless tobacco: Never Vaping Use Vaping Use: Never used Substance Use Topics Alcohol use: No Drug use: No 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 Vitals: 06/14/23 0825 BP: (!) 121/108 Patient [...] detail as part of today's consultation -- DH READ OF OUTSIDE IMAGING -- DATES and [...] radiographed. N/A Satisfactory sampling was obtained. A Lendino 14G marker clip was placed. Cranio-caudal and [...] immunostaining: >95% Stain intensity: strong Progesterone Receptor (MN) immunoreactivity: positive Cancer cells with immunostaining: >95% Stain intensity: strong RESULT: NEGATIVE FOR HER2/JEROMY AMPLIFICATION ASSESSMENT: Nallely is a 68 y.o. woman with left IDC, G2, ER/MN+ HER2- (3cm) with solitary enlarged left axillary lymph node (1.8cm with focal cortical thickness) here to discuss management. Patient is a surgical candidate for either breast conservation or total mastectomy with or without immediate reconstruction. I discussed these options for the locoregional management of her breast cancer in detail and reviewed the survival and local recurrence data for both options. She understands that that risk of local recurrence is a bit higher with breast conservation and that radiation therapy is usually recommended if she opts for partial mastectomy to help reduce this risk, but that overall survival is equiv alent regardless of her surgical choice. She also understands that adjuvant systemic therapy recommendations (endocrine and/or chemotherapy) are also independent of her surgical choice and that she will meet with medical oncology after surgery to discuss this further. We discussed the fact that negative surgical margins are necessary, and that additional surgery may be required to achieve this depending on final pathology. I also explained that partial mastectomy may result in some asymmetry incomparison to the contralateral breast. We reviewed the rationale and technique of axillary staging and reviewed the findings of the prominent left axillary level 1 lymph node and the recommendation for left axillary ultrasound with possible biopsy. If the lymph node is positive, would plan to proceed with a targeted axillary dissection with removal of the biopsied lymph node along with a standard sentinel lymph node excision. She understands that that if significant noah disease is identified with the sentinel lymph node, that a complete axillary lymph node dissection may be recommended. We also discussed the fact that if the axillary node is positive by biopsy, we'd proceed with staging scans. After discussion, the patient indicated that she would like to proceed with lumpectomy. The procedure of seed localized left breast lumpectomy (partial mastectomy) with SLNB (vs targeted dissection) was reviewed with the patient along with the expected operative course and postoperative recovery. The risks of the operation reviewed included bleeding, infection, seroma or hematoma formation, the need for secondary operation for margin re-excision or further axillary surgery, lymphedema, prolonged postoperative pain, neuropathy, alteration in cosmesis, breast asymmetry, and anesthetic complications. Patient understands the above and withes to proceed. Will follow up her left axillary ultrasound with possible biopsy scheduled on 06/20 and call her to finalize her axillary staging plan. FOLLOW-UP PLAN: - Left axillary ultrasound with possible biopsy on 06/20, will call patient to discuss results and axillary staging plan - Tentative plan for left partial mastectomy (seed localized) and left axillary staging - either SLNB or TAD pending biopsy results. I have spent a total of 63 minutes on this patient's care today. This time includes ojdn-do-aiks time with the patient as well as time spent reviewing patient records, coordinating/communicating withcare teams and documenting the patient visit. REGAN HIRSCH MD 06/14/2023 documented in this encounter Plan of Treatment Upcoming Encounters Date Type Department Care Team (Late st Contact Info) Description 01/09/2024 2:20 PM EST TH Visit (TeleHealth) Hematology [place] [address] Kati Burnette MD [facility] [address] [place] [address] 01/24/2024 9:30 AM EST Appointment XRay at [address] [place] [phone] Jimmy Swann MD [facility] [place] [address] 01/24/2024 11:00 AM EST Office Visit Pain [place] [phone] Regulo Wang PA [facility] [address] 01/24/2024 2:45 PM EST Appointment [place] [phone] 01/24/2024 3:45 PM EST Office Visit General Surgery at [place] [phone] Regan Hirsch MD [facility] [address] 03/20/2024 9:00 AM EST Office Visit Hematology [place] [address] Ericka Forrest [facility] [address] [place] [address] 07/29/2024 2:00 PM EDT Office Visit Radiation Oncology at [address] [phone] Kasie Marte MD [facility] [place] [address] documented as of this encounter Visit Diagnoses Diagnosis Malignant neoplasm of upper-inner quadrant of left breast in female, estrogen receptor positive documented in this encounter Care Teams Returned Goods Receiving Clerk Relationship Specialty Start Date End Date Haylee Baptiste MD [address] [place] [address] PCP - General 01/21/10 documented as of this encounter
--- OUTSIDE RECORDS SUMMARY | 2023-12-15 12:37 | XMS_ITS | Encounter Summary ---
Author Organization Formerly [facility], [facility] Address [facility] [place] [address] Care Team Providers Care Organizational Research Consultant Name Role Phone Haylee Baptiste MD Primary Care Provider [phone] Reason for Visit * Reason Comments Follow-up Encounter Details Date Type Department Care Team (Late st Contact Info) Description 05/11/2023 1:30 PM EDT Office Visit [place] [address] Regulo Wang PA [facility] [place] [address] S/P cervical spinal fusion Social History Tobacco Use Types Packs/Day Years Used Date Smoking Tobacco: Never Smokeless Tobacco: Never Alcohol Use Standard Drinks/Week Comments No 0 (1 standard drink = 0.6 oz pur e alcohol) [facility] Inpatient Questions Answer Date Recorded [...] - - Weight 73 kg (161 lb) 05/11/2023 1:37 PM EDT Height 157.5 cm (5' 2) 05/11/2023 1:37 PM EDT Body Mass Index 29.45 05/11/2023 1:37 PM EDT documented in this encounter Progress Notes * Regulo Wang PA - 05/11/2023 1:30 PM EDT Images from the original note were not included. [facility] Regulo Wang PA-C Dear Colleagues, I had the pleasure of seeing this patient at the [facility] for evaluation. Surgery overview: Date of Surgery: 01/18/23 Surgery: C6-7 ACDF for myelopathy with left hand symptoms. Surgeon: Dr. Swann HPI: Nallely is a 68 year old female who presents to clinic in scheduled 3 month follow up after above procedure. Last seen by Dr. Swann on 02/16/23 at which point she was doing well. She returns today stating that she still has left hand numbness which has not improved. Otherwise she has not particular complaints. She is pleased with the results from surgery. Medications and allergies: reviewed and can be found in eDH Physical Exam: Resting comfortably in no acute distress. Incision well healed. She has diminished sensation through the entirety of her left hand; otherwise sensory intact. She has 4/5 weakness with left triceps which she states has not changed. Other motors 5/5. Negative marshall bilaterally Imaging: Reviewed imaging today and compared to prior imaging. Similar appearance of hardware without evidence of failure of complication. Assessment: Nallely is a 68 year old female who returns to clinic in scheduled 3 month follow up after C6-7 ACDF for myelopathy and left hand symptoms. She continues to have left hand symptoms and some left triceps weakness but otherwise she is pleased with results from surgery. We discussed role of PT which was decided not needed as she is doing quite well at this point in time. If symptoms worsen it is an option and she will let us know if she would like a referral. We will plan to follow up at the 1 year yuniel from date of surgery with XR prior. Plan: 1) follow up 1 year from date of surgery with XR prior. Sincerely, Regulo Wang PA-C [facility] documented in this encounter Plan of Treatment Upcoming Encounters Date Type Department Care Team (Late st Contact Info) Description 01/09/2024 2:20 PM EST TH Visit (TeleHealth) Hematology [place] [address] Kati Burnette MD [facility] DR [place] [address] 01/24/2024 9:30 AM EST Appointment XRay [place] [address] [place] [address] Jimmy Swann MD [facility] [place] [place] [address] 01/24/2024 11:00 AM EST Office Visit Pain and Spine Center at [place] [address] Regulo Wang PA [facility] [place] [address] 01/24/2024 2:45 PM EST Appointment Mammography at [place] [address] 01/24/2024 3:45 PM EST Office Visit General Surgery at [place] [address] Caitlyn Hirsch MD [facility] [place] [address] 03/20/2024 9:00 AM EST Office Visit Hematology and Oncology at [place] [phone] Ericka Forrest, [facility] DR HEMATOLOGY [place] [address] 07/29/2024 2:00 PM EDT Office Visit Radiation Oncology at [address] [phone] Kasie Marte MD [facility] DR [place] [address] Scheduled Orders Name Type Priority Associated Diagnoses Orde r Schedule XR Cervical Spine 2 or 3 Views Imaging Routine S/P cervical spinal fusion Expected: 05/11/2023, Expires: 11/10/2023 documented as of this encounter Visit Diagnoses Diagnosis S/P cervical spinal fusion Arthrodesis status documented in this encounter Care Teams Organizational Research Consultant Relationship Specialty Start Date End Date Haylee Baptiste MD [address] [place] [address] PCP - General 01/21/10 documented as of this encounter
--- OUTSIDE RECORDS SUMMARY | 2023-12-15 12:37 | XMS_ITS | Encounter Summary ---
[place] [address] Care Team Providers Care Marbleizer Name Role Phone Haylee Baptiste MD Primary Care Provider [phone] Encounter Details Date Type Department Care Team (Latest Contact Info) Description 06/08/2023 2:30 PM EDT Laboratory Appointment Lab [address] [place] [id number] Malignant neoplasm of left breast in female, [...] TH Visit (TeleHealth) Hematology and Oncology at [place] [phone] Kati Burnette MD [facility] DR [place] [address] 01/24/2024 9:30 AM EST Appointment XRay at [address] [place] [address] Jimmy Swann MD [facility] [place] [address] 01/24/2024 11:00 AM EST Office Visit Pain and Spine Center at [address] Regulo Wang PA [facility] [place] [address] 01/24/2024 2:45 PM EST Appointment Mammography at [address] 01/24/2024 3:45 PM EST Office Visit General Surgery at [address] Caitlyn Hirsch MD [facility] [place] [address] 03/20/2024 9:00 AM EST Office Visit Hematology and Oncology at [place] [phone] [facility] [address] [place] [address] 07/29/2024 2:00 PM EDT Office Visit Radiation Oncology at [address] [phone] Kasie Marte MD [facility] [place] [address] documented as of this encounter Procedures Procedure Name Priority Date/Time Associated Diagnosis Comments HEMOGRAM Routine 06/08/2023 2:43 PM EDT Malignant neoplasm of left breast in female, estrogen receptor positive, unspecified site of breast DIFFERENTIAL, AUTOMATED Routine 06/08/2023 2:43 PM EDT Malignant neoplasm of left breast in female, estrogen receptor positive, unspecified site of breast CBC (WITH DIFF) Routine 06/08/2023 2:43 PM EDT Malignant neoplasm of left breast in female, estrogen receptor positive, unspecified site of breast COMPREHENSIVE METABOLIC PANEL Routine 06/08/2023 2:43 PM EDT Malignant neoplasm of left breast in female, estrogen receptor positive, unspecified site of breast documented in this encounter Results * (ABNORMAL) Differential, Automated (06/08/2023 2:43 PM EDT) Neutrophil % 62.0 % [facility] Neutrophil Absolute 7.17(H) 1.70 - 6.10 x10(3)/mc L [facility] Lymph % 30.2 % [facility] Lymphocytes Abs 3.5(H) 0.9 - 3.2 x10(3)/mc L [facility] Monocyte % 4.9 % [facility] Monocyte Abs 0.6 0.3 - 0.9 x10(3)/mc L [facility] Eos % 1.9 % [facility] Eosinophils Abs 0.2 0.0 - 0.4 x10(3)/[facility] Basophil % 0.7 % [facility] Baso Absolute 0.1 0.0 - 0.1 x10(3)/[facility] Immature Gran % 0.30 % [facility] Comment: Immature granulocytes(IG's)percentage and absolute count will include metamyelocytes, myelocytes, and promyelocytes. Blood smears from CBCs yielding IG's will be scanned manually for concordance. If this scan disagrees with the automated IG or if promyelocytes are noted, a manual differential will be performed. Immature Gran Absolute 0.04 0.00 - 0.04 x10(3)/[facility] Blood 06/08/2023 2:43 PM EDT 06/08/2023 2:48 PM EDT Narrative Resulting Agency Comment Spec In Lab Caitlyn Hirsch MD HEMATOLOGY ORDERA BLES [facility] [place] [address] * (ABNORMAL) Hemogram (06/08/2023 2:43 PM EDT) White Blood Cell 11.6(H) 4.0 - 9.5 x10(3)/[facility] Red Blood Cell 4.60 4.00 - 5.21 x10(6)/[facility] Hemoglobin 13.3 11.7 - 15.5 g/dL [facility] Hematocrit 39.8 35.7 - 45.8 % [facility] Mean Cell Volume 86.5 82.6 - 94.4 fL [facility] Mean Cell Hemoglobin 28.9 27.1 - 32.0 pg [facility] Mean Cell Hemoglobin Concentration 33.4 31.7 - 35.0 g/dL [facility] Platelet 300 145 - 357 x10(3)/[facility] RDW Standard Deviation 41.4 37.0 - 46.0 [facility] RDW coefficient of variation 13.2 11.5 - 14.1 % [facility] Mean Platelet Volume 10.9 7.6 - 12.9 [facility] NRBC% auto 0.0 % [facility] NRBC Absolute 0.000 0.000 - 0.000 x10(3)/mc L [facility] Blood 06/08/2023 2:43 PM EDT 06/08/2023 2:48 PM EDT Narrative Resulting Agency Comment Spec In Lab Caitlyn Hirsch MD HEMATOLOGY ORDERA BLES [facility] [place] [address] * (ABNORMAL) Comprehensive metabolic panel (non-fasting) (06/08/2023 2:43 PM EDT) Glucose 189 65 - 199 mg/dL [facility] Comment:Diabetes: >=200 mg/d L plus symptoms Blood Urea Nitrogen 20(H) 8 - 18 mg/dL [facility] Creatinine 1.28(H) 0.70 - 1.20 mg/dL [facility] Sodium 138 135 - 145 mmol/L [facility] Potassium 4.1 3.5 - 5.0 mmol/L [facility] Comment: Please note: ??Patients with WBC >100,000 may have falsely elevated Potassium levels. ??For accurate Potassium quantification in these patients send serum separator tube (gold top) for subsequent determinations. ??Contact the Clinical Chemistry Laboratory if there are any questions. Chloride 100 98 - 107 mmol/L [facility] Carbon Dioxide 24 22 - 31 mmol/L [facility] Anion Gap 14 5 - 15 mmol/L [facility] Calcium 9.4 8.5 - 10.5 mg/dL [facility] Protein, Total 7.2 6.1 - 8.0 g/dL [facility] Albumin 4.1 3.2 - 5.2 g/dL [facility] Aspartate Aminotransferase 11 0 - 30 unit/L [facility] Alanine Aminotransferase 20 0 - 30 unit/L [facility] Alkaline Phosphatase 156(H) 35 - 105 unit/L [facility] Bilirubin, Total 0.2 0.2 - 1.3 mg/dL [facility] Est Glomerular Filtration Rate 45(L) >=60 mL/min/1. 73 m?? [facility] Comment: This patient's estimated GFR was [...] Lab Caitlyn Hirsch MD CHEMISTRY ORDERAB LES Performing Organization Address City/State/[facility] Co de Phone Number [facility] [place] [address] documented in this encounter Visit Diagnoses Diagnosis Malignant neoplasm of left breast in female, estrogen receptor positive, unspecified site of breast documented in this encounter Care Teams Marbleizer Relationship Specialty Start Date End Date Haylee Baptiste MD [address] [place] [address] PCP - General 01/21/10 documented as of this encounter
--- OUTSIDE RECORDS SUMMARY | 2023-12-15 12:37 | XMS_ITS | Encounter Summary ---
Author Organization [facility] Address [facility] [place] [address] Care Team Providers Care Graduate Teaching Assistant Name Role Phone Haylee Baptiste MD Primary Care Provider [phone] Encounter Details Date Type Department Care Team (Latest Contact Info) Description 04/19/2023 Travel Social History Tobacco Use Types Packs/Day Years Used Date Smoking Tobacco: Never Smokeless Tobacco: Never Alcohol Use Standard Drinks/Week Comments No 0 (1 standard drink = 0.6 oz pur e alcohol) [facility] Inpatient Questions Answer Date Recorded Does Anyone [...] TH Visit (TeleHealth) Hematology [place] [address] Kati Burnette MD [facility] [address] [place] [address] 01/24/2024 9:30 AM EST Appointment XRay at [address] [place] [address] Jimmy Swann MD [facility] [place] [address] 01/24/2024 11:00 AM EST Office Visit Pain and Spine Center at [place] [address] Regulo Wang PA [facility] [address] 01/24/2024 2:45 PM EST Appointment Mammography at [place] [address] 01/24/2024 3:45 PM EST Office Visit General Surgery at [place] [address] Caitlyn Hirsch MD [facility] [address] 03/20/2024 9:00 AM EST Office Visit Hematology and Oncology at [place] [address] Ericka Forrest, [facility] [address] [place] [address] 07/29/2024 2:00 PM EDT Office Visit Radiation Oncology at [address] [phone] Kasie Marte MD [facility] [place] [address] documented as of this encounter Visit Diagnoses Not on filedocumented in this encounter Care Teams Graduate Teaching Assistant Relationship Specialty Start Date End Date Haylee Baptiste MD [address] [place] [address] PCP - General 01/21/10 documented as of this encounter
--- OUTSIDE RECORDS SUMMARY | 2023-12-15 12:37 | XMS_ITS | Encounter Summary ---
Author Organization Count Includes [facility] [address] Care Team Providers Care Beverage Distiller Name Role Phone Haylee Baptiste MD Primary Care Provider [phone] Encounter Details Date Type Department Care Team (Latest Contact Info) Description 06/05/2023 2:22 PM EDT - 06/05/2023 2:24 PM EDT Hospital [place] [address] Dorothy Hammond MD [facility] [place] [address] Abnormal finding on breast imaging Discharge Disposition: Home Social History Tobacco Use Types Packs/Day Years Used Date Smoking Tobacco: Never Smokeless Tobacco: Never Alcohol Use Standard Drinks/Week Comments No 0 (1 standard drink = 0.6 oz pur e alcohol) [facility] Inpatient Questions Answer Date Recorded Does [...] daily. 03/15/2022 fluticasone propionate (Flonase) 50 mcg/actuation [facility], Suspension 1 spray by Each Nare route [...] TH Visit (TeleHealth) [place] [address] Kati Burnette MD [facility] [address] [place] [address] 01/24/2024 9:30 AM EST Appointment XRay at [address] [place] [address] Jimmy Swann MD [facility] [place] [address] 01/24/2024 11:00 AM EST Office Visit [place] [phone] Regulo Wang PA [facility] [place] [address] 01/24/2024 2:45 PM EST [place] [address] 01/24/2024 3:45 PM EST Office [place] [address] Caitlyn Hirsch MD [facility] [place] [address] 03/20/2024 9:00 AM EST Office Visit [place] [phone] Ericka Forrest, [facility] [place] [address] 07/29/2024 2:00 PM EDT Office Visit Radiation Oncology at [address] [address] Kasie Marte MD [facility] [place] [address] documented as of this encounter Procedures Procedure Name Priority Date/Time Associated Diagnosis Comments MAMMO US BIOPSY LEFT Routine 06/05/2023 2:52 PM EDT Abnormal finding on breast imaging SPECIMEN TO PATHOLOGY Routine 06/05/2023 2:49 PM EDT SURGICAL PATHOLOGY REPORT Routine 06/05/2023 2:44 PM EDT documented in this encounter Results * Mammo Us Biopsy Left (06/05/2023 2:52 PM EDT) WORKSTATION ID [id number] 1 RAD Anatomical [...] have questions please contact the health child care giver that requested your imaging first. ? Electronically signed by: Dorothy Hammond MD, [facility] ([phone]), at 06/07/2023 11:42 AM Narrative 06/07/2023 11:42 [...] radiographed. N/A Satisfactory sampling was obtained. A Overwatch 14G marker clip was placed. Cranio-caudal and lateral digital mammography performed to determine biopsy marker placement, which was shown to be 0 cm from the biopsy site in N/A direction. COMPLICATIONS: None. PROCEDURAL ATTESTATION: Resident: none IMAGING DIFFERENTIAL DIAGNOSIS: IDC, ILC PATHOLOGIC DIAGNOSIS: IDC,DCIS Dorothy Hammond MD IMG MAMMO ORDERABLES * Specimen to Pathology (06/05/2023 2:49 PM EDT) AP Specimen 06/05/2023 2:49 PM EDT 06/05/2023 2:49 PM EDT [facility]ORY - 06/05/2023 2:49 PM EDT Specimen requisition ordered. ??Separate Pathology report to follow Dorothy Hammond MD PATHOLOGY/CYTOLOGY Maryuri LUQUE [facility] [place] [address] * (ABNORMAL) Surgical Pathology Report (06/05/2023 2:44 PM EDT) Final Diagnosis [id number] ? Location: 3L The signing pathologist has (i) examined the relevant preparation(s) for the specimen(s) and (ii) rendered or confirmed the diagnosis(es). . ?Molecular Genetics RESULTS TEST: HER2 (ERBB2) FISH, Left Breast METHOD: Fluorescence in situ hybridization (FISH) with chromosome 17 centromere (17p11.1-q11.1) probe and a locus specific probe for the HER2 gene locus (17q11.2- q12). SAMPLE ANALYZED: A1-9 RESULT: ?NEGATIVE FOR HER2/JEROMY AMPLIFICATION ? TOTAL # SIGNALS/TOTAL # NUCLEI COUNTED FOR HER2 PROBE = 81 ? TOTAL # SIGNALS/TOTAL # NUCLEI COUNTED FOR CEP-17 PROBE = 81 ? HER2 TO CEP-17 RATIO = 1.0 ?(NORMAL RANGE <2.0) ? TOTAL # NUCLEI COUNTED = 40 ? AVERAGE # HER2 signals/cell = 2.0 Interpretation: ??Paraffin-embedded tissue sections were submitted for HER2 (ERBB2) gene amplification analysis by FISH. ??Direct analysis was performed using the [employer] Kit. ??Slide adequacy and signal enumeration were evaluated and satisfactory for both control and patient slides. ??A signal ratio derived from the HER2 probe and the CEP-17 centromere probe of greater than or equal to 2.0 is considered positive for HER2 gene amplification. The 2013 ASCO/CAP guideline recommendation for HER2 testing in breast cancer states that samples with a HER2 to CEP-17 ratio of less than 2.0 are non-amplified. Specimens with a HER2 to CEP-17 range of greater than or equal to 2.0 are considered amplified. This test is approved by the U.S. FDA for clinical diagnostic use. Reference: Mary Kate MAJOR et al. Recommendations for human epidermal growth factor receptor 2 testing in breast cancer: [place] Society of Clinical Oncology/College of [place] Pathologists clinical practice guideline update. J Clin Oncol. 2013 Dec 07. Mary Kate MAJOR et al. Human Epidermal Growth Factor Receptor 2 Testing in Breast Cancer: [place] Society of Clinical Oncology/College of [place] [employer] Clinical Practice Guideline Focused Update. Arch Pathol Lab Med. 2018 July 05/J Clin Oncol. 2017July 05. Electronically signed by: ?Anne Caceres MD Verified: ??06/09/2023 15:14 ??Pathologist Performed at: ??-[facility] Dept. of Pathology, [place] [address] Rn Bsn: Linda Ramirez MD, FCAP, ??CLIA Certificate: [id number] . 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 - Lymphovascular invasion not identified. - Ductal carcinoma in-situ, focal, intermediate grade, solid pattern without comedonecrosis. - Microcalcifications associated with invasive carcinoma. Electronically signed by: ?James Sierra MD Verified: ??06/07/2023 9:28 ?? Pathologist Performed at: ??-[facility] Dept. of Pathology, [place] [address] Rn Bsn: Linda Ramirez MD, FCAP, ??CLIA Certificate: [id number] DISCUSSION THIS RESULT REQUIRES PHYSICIAN/A.P.P. FOLLOW UP ADDITIONAL STUDIES Immunohistochemistry Studies Specimen: left breast, core needle biopsy (A1) Estrogen Receptor (ER) immunoreactivity: ?positive ?? Cancer cells with immunostaining: >95% ?? Stain intensity: strong Progesterone Receptor (OK) immunoreactivity: ?positive ?? Cancer cells with immunostaining: >95% ?? Stain intensity: strong HER2 FISH: separate report to follow ? -- *Diagnostic vizcaino for hormone receptors (ASCO/CAP GUIDELINES, 2020): ?Negative immunoreactivity: <1% tumor cells with immunostaining ?Positive immunoreactivity: >=1% tumor cells with immunostaining ??Low Positive: 1-10% tumor cells with immunostaining* *There are limited data on the overall benefit of endocrine therapies for patients with low level (1-10%) ER expression, but they currently suggest possible benefit, so patients are considered eligible for endocrine treatment. There are data that suggest invasive cancers with these results are heterogeneous in both behavior and biology and often have gene expression profiles more similar to ER-negative cancers. Immunohistochemical assays were performed on paraffin-embedded tissue sections fixed in 10% neutral buffered formalin for 6-72 hours using the polymer system technique with appropriate controls. The assays were performed according to the laboratory technician ? 's instructions using Anti-ER (SP1) and Anti-OK (16) antibodies. These tests were developed and their performance characteristics determined by [facility]. They may not have been cleared or approved by the US Food and Drug Administration. The FDA does not require such tests to go through premarket FDA review. These tests are used for clinical purposes and should not be regarded as investigational or for research. This laboratory is certified under the Clinical Laboratory Improvement Amendments (CLIA) as qualified to perform high complexity clinical laboratory testing. Immunohistochemistry Studies: Formalin-fixed, paraffin-embedded tissue sections are studied using the polymer technique with appropriate positive and negative controls. ?These IHC studies provide the pathologist with adjunctive diagnostic information. Antibody specificity . ADDITIONAL STUDIES has been verified by testing antibodies on a series of in-house tissues with known immunohistochemical performance characteristics. The clinical interpretation of any antibody positive staining or its absence is evaluated within the context of clinical presentation, morphology, histopathological criteria and other diagnostic tests. Block ? Antibody ?Result (Positive/Negative) A1 ? E-cadherin ? retained membrane staining A1 ? P63,calponin ? positive around focal DCIS SPECIMEN(S) SUBMITTED A - LEFT BREAST U/S BX 14G, biopsy (3) CARBON COPY: Haylee Baptiste [phone] Vianney Stanley CLINICAL INFORMATION Mass SPECIMEN PROCESSING A - Labeled/Fixative: Left breast ultrasound biopsy 14 G, formalin. Quantity/Size: Three, averaging 1.6 cm Tissue Description: Bran-yellow fibrofatty needle core biopsies. Sections/Processing: Entirely submitted in 1 cassette labeled A1. Ischemic time: 5 minutes Total fixation time in formalin: 6 hours 11 minutes The ASCO/CAP guideline related to formalin fixation time has been met (6-72 hours). The ASCO/CAP guideline related to cold ischemic time has been met (<1 hour). ??krd(A) 06/09/2023 3:14 PM EDT [facility] BREAST STRUCTURE / Unknown 06/05/2023 2:44 PM EDT 06/05/2023 2:44 PM EDT Dorothy Hammond MD PATHOLOGY/CYTOLOGY O RDERABLES [facility] [place] [address] documented in this encounter Visit Diagnoses Diagnosis Abnormal finding on breast imaging Other (abnormal) findings on radiological examination of breast documented in this encounter Administered Medications Inactive Administered Medications - up to 3 most recent administrations Medication Order MAR Action Action Date Dose Rate Site lidocaine (Xylocaine) 1% (10 mg/mL) injection 0-200 mg 0-200 mg (0-20 mL), Subcutaneous, ONCE, 1 dose, On 06/05/23 at 1445, Radiology Protocol Medication, Routine Given 06/05/2023 2:42 PM EDT 10 mg documented in this encounter Care Teams Beverage Distiller Relationship Specialty Start Date End Date Haylee Baptiste MD [address] [place] [address] PCP - General 01/21/10 documented as of this encounter
--- OUTSIDE RECORDS SUMMARY | 2023-12-15 12:37 | XMS_ITS | Encounter Summary ---
Author Organization [facility] [place] [address] Care Team Providers Care Casing Crew Name Role Phone Haylee Baptiste MD Primary Care Provider [phone] Encounter Details Date Type Department Care Team (Late st Contact Info) Description 05/30/2023 12:05 AM EDT Ancillary Procedure Radiology Library at [facility] [place] [address] Haylee Baptiste MD [address] [place], [place] [id number] Social History Tobacco Use Types Packs/Day Years [...] TH Visit (TeleHealth) Hematology and Oncology at [place] [phone] Kati Burnette MD [facility] [address] [place] [address] 01/24/2024 9:30 AM EST Appointment XRay at [address] [place] [address] Jimmy [place] MD [facility] [place] [address] 01/24/2024 11:00 AM EST Office Visit Pain and Spine Center at [address] Regulo Wang PA [facility] [place] [address] 01/24/2024 2:45 PM EST Appointment Mammography at [place] [address] 01/24/2024 3:45 PM EST Office [place] [address] Caitlyn Hirsch MD [facility] [place] [address] 03/20/2024 9:00 AM EST Office Visit Hematology and Oncology at [place] [phone] Ericka Forrest, [facility] DR HEMATOLOGY [place] [address] 07/29/2024 2:00 PM EDT Office Visit Radiation Oncology at [address] [phone] Kasie Marte MD [facility] [place] [address] documented as of this encounter Procedures Procedure Name Priority Date/Time Associated Diagnosis Comments FILM LIBRARY STORAGE ONLY MAMMO Routine 05/30/2023 12:05 AM EDT documented in this encounter Results * Film Library- Storage Only Mammo (05/30/2023 12:05 AM EDT) Narrative [facility] - 06/01/2023 3:19 PM EDT This exam is auto-finalizing. It's purpose is for storage only. Haylee Baptiste MD IMG FILM LIBRARY ORD ERABLES [place], [place] documented in this encounter Visit Diagnoses Not on filedocumented in this encounter Care Teams Casing Crew Relationship Specialty Start Date End Date Haylee Baptiste MD [address] [place] [address] PCP - General 01/21/10 documented as of this encounter
--- OUTSIDE RECORDS SUMMARY | 2023-12-15 12:37 | XMS_ITS | Encounter Summary ---
Author Organization [facility] [place] [address] Care Team Providers Care Gleason Gear Generator Name Role Phone Haylee Baptiste MD Primary Care Provider [phone] Encounter Details Date Type Department Care Team (Latest Contact Info) Description 06/07/2023 Travel Social History Tobacco Use Types Packs/Day Years Used Date Smoking Tobacco: Never Smokeless Tobacco: Never Alcohol Use Standard Drinks/Week Comments No 0 (1 standard drink = 0.6 oz pur e alcohol) [facility] Inpatient Questions Answer Date Recorded Does [...] TH Visit (TeleHealth) [place] [address] Kati Burnette MD [facility] DR [place] [address] 01/24/2024 9:30 AM EST Appointment XRay at [address] [place] [address] Jimmy Swann MD [facility] [place] [address] 01/24/2024 11:00 AM EST Office Visit Pain and Spine Center at [place] [address] Regulo Wang PA [facility] [place] [address] 01/24/2024 2:45 PM EST Appointment Mammography at [place] [address] 01/24/2024 3:45 PM EST Office Visit General Surgery at [place] [address] Caitlyn Hirsch MD [facility] [place] [address] 03/20/2024 9:00 AM EST Office Visit Hematology and Oncology at [place] [address] Ericka Forrest, [facility] DR [place] [address] 07/29/2024 2:00 PM EDT Office Visit Radiation Oncology at [address] [address] Kasie Marte MD [facility] [place] [address] documented as of this encounter Visit Diagnoses Not on filedocumented in this encounter Care Teams Gleason Gear Generator Relationship Specialty Start Date End Date Haylee Baptiste MD [address] [place] [address] PCP - General 01/21/10 documented as of this encounter
--- OUTSIDE RECORDS SUMMARY | 2023-12-15 12:37 | XMS_ITS | Encounter Summary ---
Author Organization [facility] [address] Care Team Providers Care Engraving Operator Name Role Phone Haylee Baptiste MD Primary Care Provider [phone] Encounter Details Date Type Department Care Team (Late st Contact Info) Description 05/09/2023 Telephone Pain [place] [phone] Morenita Perez Social History Tobacco Use Types Packs/Day Years Used Date Smoking Tobacco: Never Smokeless Tobacco: Never Alcohol Use Standard Drinks/Week Comments No 0 (1 standard drink = 0.6 oz pur e alcohol) [facility] Inpatient Questions Answer Date Recorded Does Anyone [...] encounter Miscellaneous Notes * Telephone Encounter - Morenita Perez - 05/09/2023 4:43 PM EDT 05/09/2023 Contacted patient in regards to rescheduling follow up with DERRICK Eckert. At this time patient stated that had spoke to someone in the last ten minutes from our office, person was going to see to see about patient being scheduled with JUAN Wang due to patient having been reschedule twice prior to this and patient having taken time off from for this. Asked patient if knew the name of the employee that spoke with. Patient did not , informed patient I would follow up with team and get back to her with next steps. Patient expressed gratitude and call was ended . documented in this encounter Plan of Treatment Upcoming Encounters Date Type Department Care Team (Late st Contact Info) Description 01/09/2024 2:20 PM EST TH Visit (TeleHealth) Hematology and Oncology at [place] [phone] Kati Burnette MD [facility] DR HEMATOLOGY [place] [address] 01/24/2024 9:30 AM EST Appointment XRay at [address] [place] [phone] Jimmy Swann MD [facility] [place] [address] 01/24/2024 11:00 AM EST Office Visit Pain and Spine Center at [place] [phone] Regulo Wang PA [facility] [place] [address] 01/24/2024 2:45 PM EST Appointment Mammography at [address] 01/24/2024 3:45 PM EST Office Visit General Surgery at [place] [phone] Caitlyn Hirsch MD [facility] [place] [address] 03/20/2024 9:00 AM EST Office Visit Hematology [place] [address] Ericka Forrest, [facility] [place] [address] 07/29/2024 2:00 PM EDT Office Visit Radiation Oncology at [address] [address] Kasie Marte MD [facility] [place] [address] documented as of this encounter Visit Diagnoses Not on filedocumented in this encounter Care Teams Engraving Operator Relationship Specialty Start Date End Date Haylee Baptiste MD [address] [place] [address] PCP - General 01/21/10 documented as of this encounter
--- OUTSIDE RECORDS SUMMARY | 2023-12-15 12:37 | XMS_ITS | Encounter Summary ---
Author Organization [facility] [place] [address] Care Team Providers Care Magnetic Observer Name Role Phone Haylee Baptiste MD Primary Care Provider [phone] Encounter Details Date Type Department Care Team (Late st Contact Info) Description 06/01/2023 Notes Only Hematology [place] [address] Corine Ortiz Social History Tobacco Use Types Packs/Day Years Used Date Smoking Tobacco: Never Smokeless Tobacco: Never Alcohol Use Standard Drinks/Week Comments No 0 (1 standard drink = 0.6 oz pur e alcohol) [facility] Inpatient [...] Progress Notes * Corine Ortiz - 06/01/2023 1:40 PM EDT Patient Name: Nallely Rodriguezyanci Caroline Patient : 1955 Attn: [facility] Image Library From: [facility] Breast [facility] - [phone] Fed-Ex# [phone] - Please overnight [x] Urgent [] For Review [] Please Reply [] Please Recycle Pursuant to the Federal Mammography Quality Standards Act-Section 900.12(c), (4), (ii) Comments: Please send all Digital Breast Images. Also include any other scans pertaining to Breast Cancer (CD, Films, Electronic Transfer & Reports) to [facility], [place] [address] If Questions call [phone] Notice of Confidentiality: The documents accompanying this FAX transmission cover contain information from [facility] that is confidential and privileged. The information is intended for the use of the individual or entity named on this transmittal sheet. If you are not the intended recipient, be aware that any disclosure, copying, distribution or use of the contents is prohibited. If you have received the FAX in error, please notify us by telephone (collect) immediately to permit us to arrange for the retrieval of the documents at no cost to you. documented in this encounter Plan of Treatment Upcoming Encounters Date Type Department Care Team (Late st Contact Info) Description 01/09/2024 2:20 PM EST TH Visit (TeleHealth) Hematology [place] [phone] Kati Burnette MD [facility] DR [place] [address] 01/24/2024 9:30 AM EST Appointment XRay at [address] [place] [phone] Jimmy Swann MD [facility] [place] [address] 01/24/2024 11:00 AM EST Office Visit Pain and Spine Center at [place] [address] Regulo Wang PA [facility] [place] [address] 01/24/2024 2:45 PM EST Appointment Mammography at [place] [address] 01/24/2024 3:45 PM EST Office Visit General Surgery at [place] [address] Caitlyn Hirsch MD [facility] [place] [address] 03/20/2024 9:00 AM EST Office Visit Hematology and Oncology at [place] [address] Ericka Forrest, [facility] DR HEMATOLOGY [place] [address] 07/29/2024 2:00 PM EDT Office Visit Radiation Oncology at [address] [phone] Kasie Marte MD [facility] [place] [address] documented as of this encounter Visit Diagnoses Not on filedocumented in this encounter Care Teams Magnetic Observer Relationship Specialty Start Date End Date Haylee Baptiste MD [address] [place] [address] PCP - General 01/21/10 documented as of this encounter
--- OUTSIDE RECORDS SUMMARY | 2023-12-15 12:37 | XMS_ITS | Encounter Summary ---
Author Organization [facility] [place] [address] Care Team Providers Care Backbreaker Name Role Phone Haylee Baptiste MD Primary Care Provider [phone] Encounter Details Date Type Department Care Team (Late st Contact Info) Description 06/12/2023 Patient Outreach [place] [phone] Tiny Sandhu, RN Social History Tobacco Use [...] things needed for daily living? No 06/09/2023 [facility] Inpatient Questions Answer Date [...] Progress Notes * Tiny Sandhu RN - 06/12/2023 8:53 AM EDT [facility] Nurse Navigator Call for the Comprehensive Breast Program (CBP) Date of call: 06/11 Nallely Velazquez is a 68 y.o. 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 She is scheduled for surgical oncology consultation on 06/[address] Hirsch Reason for call: contacted Samantha per request of Dr. Hirsch, as she would like left ALN ultrasound and possible biopsy scheduled (per 06/08/23 breast MRI findings). Plan: Samantha is in agreement with plan for left ALN ultrasound and possible biopsy. She understands our nurse navigator in radiology will contact her with date/time. Her daughter plans to accompany her on 06/13 to her surgical consultation. 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 She has our contact information and thanked us for our time. documented in this encounter Plan of Treatment Upcoming Encounters Date Type Department Care Team (Late st Contact Info) Description 01/09/2024 2:20 PM EST TH Visit (TeleHealth) [facility] [place] [address] Kati Burnette MD [facility] [place] [address] 01/24/2024 9:30 AM EST Appointment XRay at [address] [place] [phone] Jimmy Swann MD [facility] [place] [address] 01/24/2024 11:00 AM EST Office Visit [facility] at [place] [phone] Regulo Wang PA [facility] [place] [address] 01/24/2024 2:45 PM EST [place] [phone] 01/24/2024 3:45 PM EST Office Visit General Surgery at [place] [phone] Caitlyn Hirsch MD [facility] [place] [address] 03/20/2024 9:00 AM EST Office Visit Hematology [place] [address] Ericka Forrest, [facility] DR [place] [address] 07/29/2024 2:00 PM EDT Office Visit Radiation Oncology at [address] [phone] Kasie Marte MD [facility] [place] [address] documented as of this encounter Visit Diagnoses Not on filedocumented in this encounter Care Teams Backbreaker Relationship Specialty Start Date End Date Haylee Baptiste MD [address] [place] [address] PCP - General 01/21/10 documented as of this encounter
--- OUTSIDE RECORDS SUMMARY | 2023-12-15 12:37 | XMS_ITS | Encounter Summary ---
Author Organization [facility] [place] [address] Care Team Providers Care Manager Community Development Name Role Phone Haylee Baptiste MD Primary Care Provider [phone] Encounter Details Date Type Department Care Team (Latest Contact Info) Description 04/26/2023 Travel Social History Tobacco Use Types Packs/Day Years Used Date Smoking Tobacco: Never Smokeless Tobacco: Never Alcohol Use Standard Drinks/Week Comments No 0 (1 standard drink = 0.6 oz pur e alcohol) [facility] Inpatient Questions Answer Date Recorded Does [...] TH Visit (TeleHealth) Hematology [place] [address] Kati Burnette MD [facility] [place] [address] 01/24/2024 9:30 AM EST Appointment XRay [place] [address] [place] [address] Jimmy Swann MD [facility] [place] [address] 01/24/2024 11:00 AM EST Office Visit [facility] at [place] [address] Regulo Wang PA [facility] [place] [address] 01/24/2024 2:45 PM EST Appointment Mammography at [place] [address] 01/24/2024 3:45 PM EST Office Visit General Surgery at [place] [address] Caitlyn Hirsch MD [facility] [place] [address] 03/20/2024 9:00 AM EST Office Visit Hematology and Oncology at [place] [address] Ericka Forrest, [facility] DR HEMATOLOGY [place] [address] 07/29/2024 2:00 PM EDT Office Visit Radiation Oncology at [address] [phone] Kasie Marte MD [facility] [place] [address] documented as of this encounter Visit Diagnoses Not on filedocumented in this encounter Care Teams Manager Community Development Relationship Specialty Start Date End Date Haylee Baptiste MD [address] [place] [address] PCP - General 01/21/10 documented as of this encounter
--- OUTSIDE RECORDS SUMMARY | 2023-12-15 12:38 | XMS_ITS | Encounter Summary ---
Author Organization [facility] Address [facility] [place] [address] Care Team Providers Care Plater Production Name Role Phone Haylee Baptiste MD Primary Care Provider [phone] Encounter Details Date Type Department Care Team (Latest Contact Info) Description 12/27/2022 9:36 AM EST - 12/27/2022 11:59 PM [facility] Encounter XRay at [address] [place] [address] Haylee Eckert, CHILD WELFARE ASSISTANT [facility] [place] [address] Osteoarthritis of cervical spine with myelopathy Discharge Disposition: Home Social History Tobacco Use Types Packs/Day Years Used Date Smoking Tobacco: Never Smokeless Tobacco: Never Alcohol Use Standard Drinks/Week Comments No 0 (1 standard drink = 0.6 oz pur e alcohol) Sex and Gender Information Value Date Recorded Sex Assigned at Not on file Gender Identity Not on file Sexual Orientation Not on file documented as of this encounter Medications at Time of Discharge Medication Sig Dispensed Refills Start Date End Date benzonatate (Tessalon Perles) 100 mg capsule Take 100 mg by mouth 3 times daily as needed. 09/11/2020 EPINEPHrine 0.3 mg/0.3 mL Auto-Injector Inject 0.3 mg into the muscle once as needed. 09/11/2020 fluticasone propion-salmeteroL (ADVAIR HFA) 230-21 mcg/actuation HFA Aerosol Inhaler Inhale 1 puff into the lungs 2 times daily. 03/15/2022 fluticasone propionate (Flonase) 50 mcg/actuation Joy, Suspension 1 spray by Each Nare route [...] needed for Chest pain. 25 tablet 09/01/2021 Levemir FlexPen 100 unit/mL (3 mL) Insulin Pen Inject 10 Units subcutaneously nightly. *taking 10 units at night* 12/22/2022 07/31/2023 prednisoLONE acetate (Pred-Forte) 1 % Drops, Suspension Place 1 drop into the right eye as needed. 10/26/2022 07/31/2023 traMADoL (Ultram) 50 mg tablet Take 50 mg by mouth every 6 hours as needed. 10/14/2013 01/05/2023 dulaglutide (Trulicity) 3 mg/0.5 mL Pen InjectorIndications: type 2 diabetes mellitus Inject 0.5 mLs subcutaneously once a week. Indications: type 2 diabetes mellitus 6 mL 3 10/13/2021 01/25/2023 clopidogreL (Plavix) 75 mg Tablet Take 1 tablet by mouth daily. 90 tablet 3 09/01/2021 01/05/2023 cyclobenzaprine (Flexeril) 5 mg Tablet Take 1 tablet by mouth nightly. 30 tablet 11 06/29/2021 01/05/2023 ASPIRIN ORAL Take 81 mg by mouth. 02/23/2006 023 documented as of this encounter Plan of Treatment Upcoming Encounters Date Type Department Care Team (Late st Contact Info) Description 01/09/2024 2:20 PM EST TH Visit (TeleHealth) Hematology [place] [phone] Kati Burnette MD [facility] [place] [address] 01/24/2024 9:30 AM EST Appointment XRay at [address] [place] [phone] Jimmy Swann MD [facility] [place] [address] 01/24/2024 11:00 AM EST Office Visit [facility] [place] [phone] Regulo Wang PA [facility] [place] [address] 01/24/2024 2:45 PM EST Appointment [place] [phone] 01/24/2024 3:45 PM EST Office [place] [phone] Caitlyn Hirsch MD [facility] [place] [address] 03/20/2024 9:00 AM EST Office Visit Hematology [place] [address] Ericka Forrest, [facility] HEMATOLOGY [place] [address] 07/29/2024 2:00 PM EDT Office Visit Radiation Oncology at [address] [phone] Kasie Marte MD [facility] [place] [place] [address] documented as of this encounter Procedures Procedure Name Priority Date/Time Associated Diagnosis Comments XR CERVICAL SPINE AP FLEXION AND EXTENSION ONLY Routine 12/27/2022 9:46 AM EST Osteoarthritis of cervical spine with myelopathy documented in this encounter Results * XR Cervical Spine AP Flexion & Extension Only (12/27/2022 9:46 AM EST) Anatomical Region Laterality Modality C-spine N/A Digital Radiogra phy Impressions 12/27/2022 11:09 AM EST 1. ??No spinal listhesis, or dynamic instability. 2. ??Diffuse mild multilevel degenerative disc disease. Thank you for letting us participate in the care of this patient. ??If you are a health care provider and have any questions regarding this report, please contact the number below. ??For patients who have questions please contact the health cna caregiver that requested your imaging first. ? Electronically signed by: Abimael Woodard MD, [facility] ([phone]), at 12/27/2022 11:09 AM Narrative 12/27/2022 11:09 AM EST EXAMINATION: XR CERVICAL SPINE AP FLEXION AND EXTENSION ONLY CLINICAL HISTORY: Neck pain R/O instability for surgical planning TECHNIQUE: AP and lateral, with flexion and extension. COMPARISON: MR C-spine 12/27/2022. FINDINGS: The cervical spine from level C1-6 is visualized lateral view. C7 is obscured by overlapping soft tissues. Normal spinal alignment. No evidence of spinal listhesis, on both flexion and extension maneuvers. No dynamic instability. Focal vertebral body height loss. Diffuse mild degenerative disc disease is apparent throughout all levels with disc height loss Prevertebral and paraspinous soft tissues unremarkable. Clear lung apices. Survey of the skull base is unremarkable. Procedure Note Abimael Woodard MD - 12/27/2022 EXAMINATION: XR CERVICAL SPINE AP FLEXION AND EXTENSION ONLY CLINICAL HISTORY: Neck pain R/O instability for surgical planning TECHNIQUE: AP and lateral, with flexion and extension. COMPARISON: MR C-spine 12/27/2022. FINDINGS: The cervical spine from level C1-6 is visualized lateral view. C7 isobscured by overlapping soft tissues. Normal spinal alignment. No evidence of spinal listhesis, on both flexionand extension maneuvers. No dynamic instability. Focal vertebral body height loss. Diffuse mild degenerative disc disease is apparent throughout all levelswith disc height loss Prevertebral and paraspinous soft tissues unremarkable. Clear lungapices. Survey of the skull base is unremarkable. IMPRESSION 1. No spinal listhesis, or dynamic instability. 2. Diffuse mild multilevel degenerative disc disease. Thank you for letting us participate in the care of this patient. If youare a health care provider and have any questions regarding this report,please contact the number below. For patients who have questions please contactthe health cna caregiver that requested your imaging first. Electronically signed by: Abimael Woodard MD, [facility]([phone]), at 12/27/2022 11:09 AM Haylee Eckert APRN IMG DX ORDERABLES documented in this encounter Visit Diagnoses Diagnosis Osteoarthritis of cervical spine with myelopathy documented in this encounter Care Teams Plater Production Relationship Specialty Start Date End Date Haylee Baptiste MD [address] [place] [address] PCP - General 01/21/10 documented as of this encounter
--- OUTSIDE RECORDS SUMMARY | 2023-12-15 12:38 | XMS_ITS | Encounter Summary ---
[place] [address] Care Team Providers Care Sdc Teacher Name Role Phone Haylee Baptiste MD Primary Care Provider [phone] Reason for Visit * Auth/Cert (Routine) Specialty Diagnoses / Procedures Referred By Mike jalloh Referred To Contact Diagnoses Cervical myelopathy Cervical myelopathy Procedures PRO ARTHRODESIS, ANT INTERBODY,DECOMPRESSION; CERVICAL BELOW C2 PRO ANTERIOR INSTRUMENTATION 2-3 VERTEBRAL SEGMENTS PRO INSERT BIOMCHN DEV INTERVERTEBRAL DSC SPC W/ARTHRD OPTIME, IMPLANTABLE/INSERTABLE DEVICE, NOC OPTIME, ANCHOR/SCREW FOR OPPOSING BN-TO-BN OR SOFT [id number] (IMPLANTABLE) ARTHRODESIS, ANT INTERBODY,DECOMPRESSION; CERVICAL BELOW C2 (WRVU 25) ANT. SPINAL INSTRUMENTATION, 2-3 VERTEBRA, SEGMENTED (WRVU 11.94) INSERTION INTERBODY BIOMECH DEV TO INTERVEBRAL DISC SPACE, EA INTERSPACE (WRVU 4.25) MODIFIER CORNERSTONE MODIFIER C6 MODIFIER C7 Jimmy Swann MD [facility] [place] [address] [facility] Referral ID Status Reason Start Date Expiration Date Visits Re quested Visits Authorized [id number] 1 1 Encounter Details Date Type Department Care Team (Late st Contact Info) Description 01/18/2023 7:35 AM EST Anesthesia Event [place] [address] Bj Walton MD Gross, Michael A, MD [facility] [place] [address] Anesthesia Record Procedure Summary Procedure Name Responsible Anesthesiologist Anesthesia Start Time Anesthesia Stop Time ARTHRODESIS, ANT INTERBODY,DECOMPRES MARILOU; CERVICAL BELOW C2 (WRVU 25) (Midline: Neck) Bj Walton MD 01/18/23 0735 01/18/23 1007 Events Date Time Event Comment 01/18/2023 0722 0735 AN Verify 0735 Start 0735 An Start Data 0744 An Induction 0747 An Intubation 0802 Anesthesia Ready 0958 Extubation/LMA Out 0959 an stop data 1007 Recovery or ICU Handoff Razia ent care was transferred to the destination unit staff after review of the patient's medical history, current anesthetic/surgical status and plan, according to the Provider Handoff Checklist. 1007 Stop Meds Name Total fentaNYL 50 mcg Propofol 200 mg Rocuronium 60 mg Ondansetron 4 mg PHENYLephrine INF 1,600 mcg ceFAZolin (Ancef) 2 g vial a ttach to sodium chloride 0.9% 100 mL Mini-Bag Plus 2 g ketamine 10 mg/mL 30 mg propofol INF 1,167.32 mg PHENYLephrine 160 mcg sugammadex 200 mg HYDROmorphone 0.4 mg lactated ringers infusion 0 mL * Agents Name O2 Air * Blood No blood administrations on file. Lines, Drains, and Airways Type Details Placement Removal Nephrostomy Tube 09/27/18; 1203; left flank; inserted by MD Velasquez (8F) 09/27/18 1203 by Amber Mireles RN Incision 01/18/23; 0942; anterior; throat 01/18/23 0942 by Criss Giles RN PIV 01/18/23; 0730; [id number] catheter system; 18 gauge; median vein (underside of arm), left; 01/19/23; 1231 01/18/23 0730 by Criss Hernandez, RN 01/19/23 1231 by Celia Harvey, RN ETT Mask Ventilation: Ea sy (1); ETT Type: Cuffed; ETT Size: 6.5 mm; Exchange: FOB; Notes: Asleep, Pre-O2; Attempts: 1; ETT Placement Verified By: Auscultation, Capnometry, Visual; Secured at Teeth: 23 cm; Inserted by: Nico; Removal Date: 01/18/23; Removal Time: 95701/18/23 0752 by Wade Walsh MD 01/18/23 0958 by Wade Walsh MD PIV 01/18/23; 0810; 18 gauge; basilic vein (medial side of arm), right; 01/19/23; 1231 01/18/23 0810 by Wade Walsh MD 01/19/23 1231 by Celia Harvey, JAY Closed/Suction Drain 01/18/23; 0944; 1; Anterior (LEFT ANTERIOR); Neck; Bulb; 10 Armenian; (Accidently fell out, 7 holes intact. MD aware) 01/18/23 0944 by Criss Giles, RN 01/18/23 180 by Darby Cochran RN documented in this encounter Social History Tobacco Use Types Packs/Day Years Used Date Smoking Tobacco: Never Smokeless Tobacco: Never Alcohol Use Standard Drinks/Week Comments No 0 (1 standard drink = 0.6 oz pur e alcohol) DH IPV Inpatient Questions Answer Date Recorded [...] OR Notes * Anesthesia Postprocedure Evaluation - Wade Walsh MD - 01/18/2023 10:07 AM EST Department of Anesthesiology Post-procedure Note Patient: Nallely Velazquez Procedure Summary Date: 01/18/23 Room / Location: [facility] OR [facility] MAIN OR Anesthesia Start: 734 Anesthesia Stop: 1007 Procedures: ARTHRODESIS, ANT INTERBODY,DECOMPRESSION; CERVICAL BELOW C2 (WRVU 25) (Midline: Neck) ANT. SPINAL INSTRUMENTATION, 2-3 VERTEBRA, SEGMENTED (WRVU 11.94) (Midline: Neck) INSERTION INTERBODY BIOMECH DEV TO INTERVEBRAL DISC SPACE, EA INTERSPACE (WRVU 4.25) (Midline) MODIFIER CORNERSTONE (Midline) MODIFIER C6 (Midline) MODIFIER C7 (Midline) Diagnosis: Cervical myelopathy (Cervical myelopathy) Surgeons: Jmimy Swann MD Responsible Provider: Bj Walton MD Anesthesia Type: general ASA Status: 3 All Anesthesia Providers: Anesthesiologist: Bj Walton MD Rubber Goods Supervisor: Wade Walsh MD Vitals Value Taken Time BP 108/59 01/18/23 1004 Temp 35.6 ??C (96.1 ??F) 01/18/23 1001 Pulse 70 01/18/23 1006 Resp 12 01/18/23 1006 SpO2 99 % 01/18/23 1006 Pain Level Vitals shown include unfiled device data. Patient Location: PACU/[facility] Level of Consciousness: Awake and Alert Pain Management: Satisfactory Analgesia PONV: None Cardiovascular Status: At Baseline Respiratory Status: At Baseline Postoperative Fluid Status: Intravascular EUvolemia Possible Anesthetic Complications: NONE apparent at time of evaluation Final Primary Anesthesia Type: General (The anesthetic type performed was the same as planned.) Comments: * Anesthesia Preprocedure Evaluation - Bj Walton MD - 01/17/2023 3:17 PM EST Pre-Anesthesia Evaluation for: Nallely Velazquez a 68 y.o. female. Procedure(s): ARTHRODESIS, ANT INTERBODY,DECOMPRESSION; CERVICAL BELOW C2 (WRVU 25) ANT. SPINAL INSTRUMENTATION, 2-3 VERTEBRA, SEGMENTED (WRVU 11.94) INSERTION INTERBODY BIOMECH DEV TO INTERVEBRAL DISC SPACE, EA INTERSPACE (WRVU 4.25) MODIFIER CORNERSTONE MODIFIER C6 MODIFIER C7 Patient Active Problem List Diagnosis Date Noted ??? Cervical myelopathy 01/05/2023 ??? HNP (herniated nucleus pulposus), cervical 09/13/2021 ??? NSTEMI (non-ST elevated myocardial infarction) 08/29/2021 ??? Closed fracture of left wrist 11/04/2016 ??? Left hand pain 10/18/2016 ??? Achilles tendon tear, left 09/06/2016 ??? Type 2 diabetes mellitus with hyperglycemia, with long-term current use of insulin 09/06/2016 ??? Hypertension 09/06/2016 ??? longterm current use of antithrombotics/antiplatelets 09/06/2016 ??? Prinzmetal [...] Left 09/27/2018 Justin De La Cruz MD [facility] INTERVENTIONL RAD Social History Tobacco Use ??? Smoking status: Never ??? Smokeless tobacco: Never Substance Use Topics ??? Alcohol use: No Social History Substance and Sexual Activity Drug [...] Physical Exam: Preprocedure Vitals Current as of 01/17/23 1517 No BP, pulse, respiration, SpO2, or temperature recorded. Height: 157.5 cm (5' 2) (01/05/23) Weight: 74.4 kg (164 lb) (01/05/23) BMI: 29.99 IBW: 50.1 kg (110 lb 7.8 oz) Airway Assessment: Mallampati: II Cardiovascular Assessment: Rhythm: regular Rate: normal system normal Pulmonary Assessment: breath sounds clear to auscultation pulmonary exam normal Dental Assessment: (+) lower dentures and upper dentures Misc Assessment: IV access: Peripheral line Last Filed Perioperative Cognitive Screening None Anesthesia Plan: ASA 3 general, with a(n) intravenous induction 68 y.o. female with history of cervical myelopathy scheduled for C6-7 ACDF. Medical history: IDDM (trulicity), HTN (losartan), NSTEMI (drug eluding stent placed to LAD August 2021), reactive airway disease (albuterol), fibromyalgia, CKD, remote CVA Anesthetic History: none in chart Echo August 2021 Left ventricle is of normal size. Wall thickness is normal. Left ventricular size and systolic function is normal. The left ventricular ejection fraction is 66% by Mcarthur's biplane. There are no segmental wall motion abnormalities. No significant valvular abnormalities. Plan: GETA Standard ASA monitors Adequate IV access Region - Other Informed Consent: Anesthetic plan and risks discussed with patient. Anesthesia Screening documented in this encounter Plan of Treatment Upcoming Encounters Date Type Department Care Team (Late st Contact Info) Description 01/09/2024 2:20 PM EST TH Visit (TeleHealth) Hematology [place] [phone] Kati Burnette MD [facility] [place] [address] 01/24/2024 9:30 AM EST Appointment XRay at [address] [place] [phone] Jimmy Swann MD [facility] [place] [address] 01/24/2024 11:00 AM EST Office Visit [facility] [place] [address] Regulo Wang PA [facility] [address] 01/24/2024 2:45 PM EST Appointment [place] [address] 01/24/2024 3:45 PM EST Office Visit [place] [phone] Caitlyn Hirsch MD [facility] [place] [address] 03/20/2024 9:00 AM EST Office Visit Hematology [place] [phone] Ericka Forrest, [facility] [place] [address] 07/29/2024 2:00 PM EDT Office Visit Radiation Oncology at [address] [phone] Kasie Marte MD [facility] [place] [address] documented as of this encounter Visit Diagnoses Not on filedocumented in this encounter Administered Medications Inactive Administered Medications - up to 3 most recent administrations Medication Order MAR Action Action Date Dose Rate Site ceFAZolin (Ancef) 2 g vial attach to sodium chloride 0.9% 100 mL Mini-Bag Plus 2 g, Intravenous, EVERY 4 HOURS, 1 dose, First dose on Mon01/18/23 at 0700, Administer over 30 Minutes, Redose after 4 hours., Day of Surgery (Day of Procedure), Indication for (Active or Suspected): Prophylaxis New Bag 01/18/2023 8:04 AM EST 2 g fentaNYL (pf) (50 mcg/mL) multi-dose injection Intravenous, PRN, Starting on Mon01/18/23 at 0811, Until Mon01/18/23 at 1007, Anesthesia Intra-op, Routine Given 01/18/2023 8:11 AM EST 50 mcg HYDROmorphone (Dilaudid) (2 mg/mL) multi-dose injection solution Intravenous, PRN, Starting on Mon01/18/23 at 0939, Until Mon01/18/23 at 1007, Anesthesia Intra-op, Routine Given 01/18/2023 9:39 AM EST 0.4 mg ketamine (Ketalar) (10 mg/mL) IV bolus injection (Anesthesia) Intravenous, PRN, Starting on Mon01/18/23 at 0744, Until Mon01/18/23 at 1007, Anesthesia Intra-op Given 01/18/2023 7:44 AM EST 30 mg lactated ringers infusion 1,000 mL, at 100 mL/hr, Intravenous, CONTINUOUS, Starting on Mon01/18/23 at 0700, Until Mon01/18/23 at 1126, Day of Surgery (Day of Procedure) New Bag 01/18/2023 7:34 AM EST ondansetron (pf) (Zofran) (2 mg/mL) injection Intravenous, PRN, Starting on Mon01/18/23 at 0939, Until Mon01/18/23 at 1007, Anesthesia Intra-op, Routine Given 01/18/2023 9:39 AM EST 4 mg PHENYLephrine (Curtis-Synephrine) (80 mcg/mL) in sodium chloride 0.9% 250 mL infusion Intravenous, CONTINUOUS PRN, Starting on Mon01/18/23 at 0811, Until Mon01/18/23 at 1007, Anesthesia Intra-op, Routine Rate/Dose Change 01/18/2023 8:56 AM EST 10 mcg/min 7.5 mL/hr Rate/Dose Change 01/18/2023 8:23 AM EST 20 mcg/min 15 mL/h r New Bag 01/18/2023 8:11 AM EST 40 mcg/min 30 mL/hr PHENYLephrine in NS (PF) (CURTIS-SYNEPHRINE) 0.8 mg/10 mL (80 mcg/mL) multi-dose injection Syringe Intravenous, PRN, Starting on Mon01/18/23 at 0852, Until Mon01/18/23 at 1007, Anesthesia Intra-op, Routine Given 01/18/2023 9:26 AM EST 80 mcg Given 01/18/2023 8:52 AM EST 80 mcg propofoL (Diprivan) (10 mg/mL) infusion Intravenous, CONTINUOUS PRN, Starting on Mon01/18/23 at 0744, Until Mon01/18/23 at 1007, Anesthesia Intra-op, Routine Rate/Dose Change 01/18/2023 9:41 AM EST 50 mcg/kg/min 22.74 mL/hr Rate/Dose Change 01/18/2023 9:08 AM EST 125 mcg/kg/min 56. 85 mL/hr Rate/Dose Change 01/18/2023 8:57 AM EST 100 mcg/kg/min 45. 48 mL/hr propofoL (Diprivan) 10 mg/mL bolus injection (Anesthesia) Intravenous, PRN, Starting on Mon01/18/23 at 0744, Until Mon01/18/23 at 1007, Anesthesia Intra-op Given 01/18/2023 7:46 AM EST 50 mg Given 01/18/2023 7:44 AM EST 150 mg rocuronium (Zemuron) (10 mg/mL) multi-dose injection Intravenous, PRN, Starting on Mon01/18/23 at 0745, Until Mon01/18/23 at 1007, Anesthesia Intra-op, Routine Given 01/18/2023 9:04 AM EST 20 mg Given 01/18/2023 7:45 AM EST 40 mg sugammadex (Bridion) 100 mg/mL injection Intravenous, PRN, Starting on Mon01/18/23 at 0936, Until Mon01/18/23 at 1007, Anesthesia Intra-op, Routine Given 01/18/2023 9:36 AM EST 200 mg documented in this encounter Care Teams Sdc Teacher Relationship Specialty Start Date End Date Haylee Baptiste MD [address] [place] [address] PCP - General 01/21/10 documented as of this encounter
--- OUTSIDE RECORDS SUMMARY | 2023-12-15 12:38 | XMS_ITS | Encounter Summary ---
Author Organization Count Includes [facility] [address] Care Team Providers Care Hot Mill Worker Name Role Phone Haylee Baptiste MD Primary Care Provider [phone] Reason for Visit * Reason Comments Neck Pain * Consultation (Routine) - Closed Specialty Diagnoses / Procedures Referred By Mike jalloh Referred To Contact [facility] Diagnoses Osteoarthritis of cervical spine with myelopathy Cervical cord compression syndrome w/UE numbness/ MRI & Xray 12/27/22 in [facility] Haylee Eckert APRN [facility] [place] [address] Jimmy Swann MD [facility] [place] [address] Referral ID Status Reason Start Date Expiration Date V isits Requested Visits Authorized [id number] Closed Surgical 12/07/2022 12/07/2023 3 3 Encounter Details Date Type Department Care Team (Late st Contact Info) Description 01/05/2023 4:20 PM EST Office Visit [place] [address] Jimmy Swann MD [facility] [address] Cervical myelopathy Social History Tobacco Use Types [...] - Inhaled Oxygen Concentration - - Weight 74.4 kg (164 lb) 01/05/2023 4:47 PM EST Height 157.5 cm (5' 2) 01/05/2023 4:47 PM EST Body Mass Index 30 01/05/2023 4:47 PM EST documented in this encounter Progress Notes * Jimmy Swann MD - 01/05/2023 4:20 PM EST Interval history: Ms. Doss returns today to discuss treatment options for her left hand numbness, weakness, and clumsiness and balance dysfunction. To review, she is a 67-year-old female whom I lastsaw over 1 year ago in regards to her left upper extremity numbness and mild balance dysfunction. She was found to have a large C6-C7 left paracentral disc herniation compressing the left side of thespinal cord and the left C7 nerve root. Over the past year, she feels as though her symptoms have progressed, with worsening numbness and clumsiness in the left hand and worsening balance. She has minimal neck or left upper extremity pain. She sometimes gets a electrical type sensation in her left index and long fingers. 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 When I saw her, she had a recent NSTEMI that was being treated with aspirin and Plavix. She is off of Plavix at this point, and sheknows that she can come off the aspirin as needed. She has been treated with physical therapy that did not help. She is taking gabapentin that did not help. Physical exam Patient is 5 foot 2, 164 pounds, with a BMI of 30 General: Patient is comfortable, no acute distress Neck: Her neck is nontender to palpation. She can flex 30 degrees, extend 30 degrees, rotate 50 degrees, and side bend 20 degrees. Neurological exam: She walks with a relatively normal gait. She is unable to perform tandem gait. Motor exam reveals 4/5 strength of her left hand intrinsics with other motor groups 5/5. She has diminished sensation throughout her left hand. Reflexes are 2/4 in the upper extremities, 3/4 at the knees, and 1/4 at the ankles. Spurling's is negative bilaterally. Ha's is negative bilaterally. She has no clonus. Shoulder exam: She has normal, painless range of motion of both shoulders. Vascular exam: She has palpable pulses bilaterally. Imaging: AP and lateral flexion-extension x-rays of the cervical spine from 12/27/2022 were reviewed. These show moderate degenerative changes from C4-C7. MRI of the cervical spine from 12/27/2022 was reviewed. At C4-C5, there is a broad-based disc protrusion that abuts but does not compress the spinal cord. At C5-C6, there is a left sided disc osteophyte complex that causes mild to moderate left sided foraminal narrowing. It does not cause spinal cord compression. At C6-C7, there is a central and left paracentral disc herniation compressing the left side of the spinal cord in the exiting left C7 nerve root. There may be subtle signal changes in the cord at this level. Assessment/plan: Ms. Doss is a 59-year-old female who presents with over 1 year of left hand numbness and clumsiness and balance dysfunction in the setting of a left paracentral C6-C7 disc herniation that compresses the left side of the spinal cord and left C7 nerve root. She has not had significant neck or radicular pain. She cannot perform tandem gait and has hyperreflexic patellar reflexes. Her symptoms are most likely related to the spinal cord and nerve root compression. I believe she does have cervical myelopathy at this point, and it has been worse over the past year. We discussed treatment options including observation and surgery. I did explain that there is a substantial chance of worsening of her myelopathic symptoms over time given the ongoing spinal cord compression. For that reason, she does want to proceed with surgery. Surgery in her case will be a C6-C7 ACDF. While there is some pathology at C4-C5 and C5-C6, there is no significant cord compression at those levels, so I do not think they are contributing to her current symptoms. The planned surgery was demonstratedon the spine model. Consent was obtained. Risks were documented on the consent form. The typical recovery was reviewed. She will need a history and physical from her primary care physician and preadmission testing. I told her to avoid any aspirin, anti-inflammatory medication, or fish oil within 10days of surgery. She understands that the goal of surgery is to prevent progression and that her current symptoms may not improve. We will schedule surgery at her convenience. documented in this encounter Plan of Treatment Upcoming Encounters Date Type Department Care Team (Late st Contact Info) Description 01/09/2024 2:20 PM EST TH Visit (TeleHealth) [place]ology [place] [phone] Kati Burnette MD [facility] DR [place] [address] 01/24/2024 9:30 AM EST Appointment XRay at [address] [place] [phone] Jimmy Swann MD [facility] [place] [address] 01/24/2024 11:00 AM EST Office Visit Pain and Spine Center at [place] [phone] Regulo Wang PA [facility] [place] [address] 01/24/2024 2:45 PM EST [place] [phone] 01/24/2024 3:45 PM EST Office Visit General Surgery at [place] [phone] Caitlyn Hirsch MD [facility] [place] [address] 03/20/2024 9:00 AM EST Office Visit Hematology [place] [address] Ericka Forrest, [facility] HEMATOLOGY [place] [address] 07/29/2024 2:00 PM EDT Office Visit Radiation Oncology at [address] [phone] Kasie Marte MD [facility] [place] [address] documented as of this encounter Results * [...] who have questions please contact the health resident care provider that requested your imaging first. ? Narrative 02/16/2023 3:31 PM EST EXAMINATION: XR [...] patients who have questions please contactthe health resident care provider that requested your imaging first. Electronically signed by: Unruly Chase MD, [facility]([phone]), at 02/16/2023 3:31 PM Jimmy Swann MD IMG DX ORDERABLES documented in this encounter Visit Diagnoses Diagnosis Cervical myelopathy Cervical spondylosis with myelopathy Cervical myelopathy Cervical spondylosis with myelopathy documented in this encounter Care Teams Hot Mill Worker Relationship Specialty Start Date End Date Haylee Baptiste MD [address] [place] [address] PCP - General 01/21/10 documented as of this encounter
--- OUTSIDE RECORDS SUMMARY | 2023-12-15 12:38 | XMS_ITS | Encounter Summary ---
Author Organization [facility] Address [facility] [place] [address] Care Team Providers Care Aviation Safety Technician Name Role Phone Haylee Baptiste MD Primary Care Provider [phone] Encounter Details Date Type Department Care Team (Latest Contact Info) Description 12/27/2022 Travel Social History Tobacco Use Types Packs/Day [...] TH Visit (TeleHealth) [place]ology [place] [phone] Kati Burnette MD [facility] [place] [address] 01/24/2024 9:30 AM EST Appointment XRay at [address] [place] [phone] Jimmy Swann MD [facility] [place] [address] 01/24/2024 11:00 AM EST Office Visit Pain and Spine Center at [place] [address] Regulo Wang PA [facility] [place] [place] [address] 01/24/2024 2:45 PM EST Appointment Mammography at [place] [address] 01/24/2024 3:45 PM EST Office Visit General Surgery at [place] [address] Caitlyn Hirsch MD [facility] [place] [place] [address] 03/20/2024 9:00 AM EST Office Visit Hematology and Oncology at [place] [address] Ericka Forrest, [facility] [place] [address] 07/29/2024 2:00 PM EDT Office Visit Radiation Oncology at [address] [phone] Kasie Marte MD [facility] [place] [address] documented as of this encounter Visit Diagnoses Not on filedocumented in this encounter Care Teams Aviation Safety Technician Relationship Specialty Start Date End Date Haylee Baptiste MD [address] [place] [address] PCP - General 01/21/10 documented as of this encounter
--- OUTSIDE RECORDS SUMMARY | 2023-12-15 12:38 | XMS_ITS | Encounter Summary ---
Author Organization [facility] [place] [address] Care Team Providers Care Motorman/Woman Name Role Phone Haylee Baptiste MD Primary Care Provider [phone] Encounter Details Date Type Department Care Team (Late st Contact Info) Description 01/22/2023 Telephone [place] [phone] Justin Langston MD [facility] DR ORTHOPAEDIC [place] [address] Social History Tobacco Use Types Packs/Day Years [...] encounter Miscellaneous Notes * Telephone Encounter - Justin Langston MD - 01/22/2023 4:04 PM EST Patient Name: Nallely Velazquez : [id number] MR#: [id number] Case Date: 01/18/2023 Surgeon: Surgeon(s) and Role: * Jimmy Swann MD - Primary * Dave Bal MD - Resident - Assisting Preoperative diagnosis: Cervical myelopathy Postoperative diagnosis: Cervical myelopathy Procedure: 1. C6-C7 anterior cervical discectomy and fusion 2. Anterior cervical plating C6-C7 3. Application of intervertebral device C6-C7 Implants: Globus Bison plate and [employer]tronic Cornerstone intervertebral device Patient calling because she is having some muscle spasms in the right side of her neck. No fevers chills or swallowing concerns. Recommended hot pack and tylenol. Patient has flexeril at home. I discussed that she could try one half pill once daily to see if this improves her spasms. Justin Langston MD documented in this encounter Plan of Treatment Upcoming Encounters Date Type Department Care Team (Late st Contact Info) Description 01/09/2024 2:20 PM EST TH Visit (TeleHealth) Hematology and Oncology at [place] [phone] Kati Burnette MD [facility] DR HEMATOLOGY [place] [address] 01/24/2024 9:30 AM EST Appointment XRay at [address] [place] [phone] Jimmy Swann MD [facility] [place] [address] 01/24/2024 11:00 AM EST Office Visit Pain [place] [phone] Regulo Wang PA [facility] [place] [address] 01/24/2024 2:45 PM EST Appointment [place] [address] 01/24/2024 3:45 PM EST Office Visit [place] [phone] Caitlyn Hirsch MD [facility] DR [place] [address] 03/20/2024 9:00 AM EST Office Visit Hematology [place] [address] Ericka Forrest, [facility] DR HEMATOLOGY [place] [address] 07/29/2024 2:00 PM EDT Office Visit Radiation Oncology at [address] [phone] Kasie Marte MD [facility] DR RADIATION [place] [address] documented as of this encounter Visit Diagnoses Not on filedocumented in this encounter Care Teams Motorman/Woman Relationship Specialty Start Date End Date Haylee Baptiste MD [address] [place] [address] PCP - General 01/21/10 documented as of this encounter
--- OUTSIDE RECORDS SUMMARY | 2023-12-15 12:38 | XMS_ITS | Encounter Summary ---
Author Organization [facility] Address [facility] [place] [address] Care Team Providers Care Electronic Scale Assembler And Tester Name Role Phone Haylee Baptiste MD Primary Care Provider [phone] Reason for Visit * Consultation (Routine) - Closed Specialty Diagnoses / Procedures Referred By Mike jalloh Referred To Contact Endocrinology Diagnoses Type 2 diabetes mellitus with other specified complication, unspecified whether mcfp insulin use Haylee Baptiste MD [address] [place] [address] [facility] [address] [place] [phone] Referral ID Status Reason Start Date Expiration Date V isits Requested Visits Authorized [id number] Closed Consult, Test & Treat PCP Updated and/or Approved 07/23/2021 07/23/2022 6 6 Encounter Details Date Type Department Care Team (Late st Contact Info) Description 10/13/2021 9:00 AM EDT Office [place] [address] Tom Anna, [facility] [place] [address] Type 2 diabetes mellitus with hyperglycemia, with [...] Sign Reading Time Taken Comments Blood Pressure 133/67 10/13/2021 9:05 AM EDT Pulse 89 10/13/2021 9:05 AM EDT Temperature 36.3 ??C (97.4 ??F) 10/13/2021 9:05 AM ED T Respiratory Rate 20 10/13/2021 9:05 AM EDT Oxygen Saturation 99% 10/13/2021 9:05 AM EDT Inhaled Oxygen Concentration - - Weight 83.9 kg (185 lb) 10/13/2021 9:05 AM EDT Height 157.5 cm (5' 2) 10/13/2021 9:05 AM EDT Body Mass Index 33.84 10/13/2021 9:05 AM EDT documented in this encounter Patient Instructions * Patient Instructions* Tom Anna DO - 10/13/2021 9:00 AM EDT 1. Will increase U-500 dosing to three times daily, at dosing of 20 units q breakfast, 10 units q lunch, and 15 units q dinner 2. Blood glucose monitoring - continue Libre2 3. Diet - low fat/low carb diet 4. Exercise - weight-bearing exercise 30 min/day, as tolerated 5. Increase Trulicity to 3mg weekly 6. Did speak with patient about benefit of adding SGLT2 inhibitor to her regimen given CKD and CAD,will first start with changes to insulin and Trulicity, then we can explore adding SGLT2 at next visit 7. Repeat A1c in 2 months, will also order urine microalbumin / cr documented in this encounter Progress Notes * Tom Anna DO - 10/13/2021 9:00 AM EDT Endocrine Outpatient Visit Date of Consultation: 10/13/2021 Consult Requested by: PCP Reason for Consultation: Nallely Olmsteadagustin Velazquez is a 66 y.o. female with PMH significant for recent NSTEMI s/p PCI in August 2021, HTN, IDDM, CKD, Fibromyalgia is referred to endocrine clinic for further management of T2DM Diabetes History: Nallely Doss ??has had diabetes ??For about 20 years. She states she first was found to have gestational diabetes with her son 36 years ago. About 10-15 years after that, patient was diagnosed with diabetes and initially started on an oral regimen. Patient states that due to intolerance of her oral medications which included metformin, a sulfonylurea (glyburide per patient), and januvia, and due to persistent hyperglycemia, she was transitioned to insulin, and eventually transitioned Naldo-500. Patient states that she initially had been taking 50 units tid of U-500, but recently (about6 weeks ago) was started on trulicity 0.75 (she took 4 doses) which has been increased to trulicity1.5 (she missed her second dose yesterday). Since starting the Trulicity, patient states that her insulin requirements have been decreasing, and when she originally saw us was taking 30 units of U-500 tid ac. She states she does have occasional episodes of hypoglycemia on this regimen which only hap pen around 1-3 pm and do not have any relation to her meals. Plan from visit 09/02/21 - U-500 dose 15 units bid ac with dose adjustments, continue trulicity 1.5 weekly Since being on the 15 units bid ac of the U-500, patient states that her blood glucose has typically been 180-220s at night, and between 80-180 in the morning. Review of her CGM demonstrates predominately post-prandial hyperglycemia. Diagnosed with T1DM at the age of 46 Current home regimen: 15 units bid U-500, trulicity 1.5 weekly BG Monitoring: Libre2 Most recent HgA1C on 08/30/21 9.2% Typical Diet: 3 meals and 1-2 snacks a day Breakfast- toast, jelly Lunch- chicken salad Supper- 1/2 subway sandwich Trouble with hypoglycemia: One episode of BG 62 in the morning, otherwise none Hypoglycemia unawareness: no Family h/o DM: mother and father both with T1DM Injection site: abdomen Recent admission with DKA: no Diabetes Complications Status: Eyes: no h/o diabetic retinopathy Kidneys: CKD II-III Feet: No known neuropathy Cardiac: NSTEMI Prevention: last microalbumin: none in chart last Cr: 1.07 last lipid panel: 08/30/21 regular mallet and die cutter: no flu shot : yes ACEi: yes ASA: yes Statin: yes ROS: 12 Point ROS negative except for what has been documented above PMH Past Medical History: Diagnosis Date ??? CAD (coronary artery disease) ??? Cervical radiculopathy at C7 ??? CKD (chronic kidney disease) stage 3, GFR 30-59 ml/min ??? Diabetes mellitus ??? GERD (gastroesophageal reflux disease) ??? Hiatal hernia ??? HLD (hyperlipidemia) ??? Hypertension Current Medications: Scheduled Meds: Continuous Infusions: PRN Meds:. Allergy: Allergies Allergen Reactions ??? Iodine And Iodide Containing Products Anaphylaxis ??? Codeine Phosphate Nausea And Vomiting ??? Meperidine Hcl Nausea And Vomiting Nausea/Vomiting ??? Morphine Sulfate Nausea And Vomiting ??? Oxaprozin Nausea And Vomiting ??? Prednisone Rash CIS - Rash with dose greater than 20mg. ??? Sulindac Nausea And Vomiting Social history: Social History Tobacco Use ??? Smoking status: Never Smoker ??? Smokeless tobacco: Never Used Vaping Use ??? Vaping Use: Never used Substance Use Topics ??? Alcohol use: No ??? Drug use: No Family history: Family History Problem Relation Age of Onset ??? Heart Disease Mother ??? Diabetes Mother ??? Diabetes Father ??? Cancer Neg Hx Vitals BP 133/67 (BP Location (NBP): Right arm, Patient Position: Sitting, BP Cuff Sizes: Large Adult (32-43 cm)) Pulse 89 Temp 36.3 ??C (97.4 ??F) (Temporal) Resp 20 Ht 157.5 cm (5' 2) Wt 83.9 kg (185 lb) SpO2 99% BMI 33.84 kg/m?? Physical Exam: Gen: NAD, talking in clear sentences. HEENT: no LAD, oral mucus membranes moist no obvious inflammation Lungs: speaking in full sentences, not in respiratory distress SKIN: No open areas or redness to both feet Foot exam: monofilament exam performed with no evidence of sensory disturbances Neuro: Moving all extremities. Grossly non-focal Assessment: Ms. Selam Velazquez is a 66 y.o. years old female with PMH significant for DM (Last A1C of 9.2%) is here for further management of type 2 DM. # Moderately Controlled 2 DM with CAD Plan: 1. Will increase U-500 dosing to three times daily, at dosing of 20 units q breakfast, 10 units q lunch, and 15 units q dinner 2. Blood glucose monitoring - continue Libre2, CGM reviewed today 3. Diet - low fat/low carb diet 4. Exercise - weight-bearing exercise 30 min/day, as tolerated 5. Increase Trulicity to 3mg weekly 6. Did speak with patient about benefit of adding SGLT2 inhibitor to her regimen given CKD and CAD,will first start with changes to insulin and Trulicity, then we can explore adding SGLT2 at next visit 7. Repeat A1c in 2 months, will also order urine microalbumin / cr We have reviewed our plan outlined as [...] provide care for this patient. Daisy Anna PGY4, Endocrinology Fellow Pager: [phone] * Wilfrid Cano MD - 10/13/2021 9:00 AM EDT I have seen the patient and reviewed Dr Anna's history and I agree with the details as written. The assessment and plan were formulated in discussion with me and I agree with them as documented. 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 Endocrinology Section [facility] documented in this encounter Miscellaneous Notes * Addendum Note - Wilfrid Cano MD - 10/13/2021 9:00 AM EDTAddended by: WILFRID CANO on: 10/14/2021 09:44 PM Modules accepted: Level of Service documented in this encounter Plan of Treatment Upcoming Encounters Date Type Department Care Team (Late st Contact Info) Description 01/09/2024 2:20 PM EST TH Visit (TeleHealth) Hematology and Oncology at [place] [address] Kati Burnette MD [facility] DR HEMATOLOGY [place] [address] 01/24/2024 9:30 AM EST Appointment XRay at [address] [place] [address] Jimmy Swann MD [facility] [place] [address] 01/24/2024 11:00 AM EST Office Visit Pain and Spine Center at [place] [address] Wilfrid Wang PA [facility] [place] [address] 01/24/2024 2:45 PM EST Appointment Mammography at [place] [address] 01/24/2024 3:45 PM EST Office Visit General Surgery at [place] [address] Caitlyn Hirsch MD [facility] [place] [address] 03/20/2024 9:00 AM EST Office Visit Hematology [place] [address] Ericka Forrest, [facility] [address] [place] [address] 07/29/2024 2:00 PM EDT Office Visit Radiation Oncology at [address] [phone] Kasie Marte MD [facility] [place] [address] documented as of this encounter Visit Diagnoses Diagnosis Type 2 diabetes mellitus with hyperglycemia, with long-term current use of insulin documented in this encounter Care Teams Electronic Scale Assembler And Tester Relationship Specialty Start Date End Date Haylee Baptiste MD [address] [place] [address] PCP - General 01/21/10 documented as of this encounter
--- OUTSIDE RECORDS SUMMARY | 2023-12-15 12:38 | XMS_ITS | Encounter Summary ---
[place] [address] Care Team Providers Care Pbx Repairer Name Role Phone Haylee Baptiste MD Primary Care Provider [phone] Reason for Referral * Consultation (Routine) - Closed Specialty Diagnoses / Procedures Referred By Contac t Referred To Contact Endocrinology Diagnoses S/P cervical spinal fusion Type 2 diabetes mellitus with hyperglycemia, with long-term current use of insulin Nelida Cunningham APRN [facility] [place] [address] [facility] Endocrinology [address] [place] [phone] Referral ID Status Reason Start Date Expiration Date V isits Requested Visits Authorized [id number] Closed Consult, Test & Treat 01/19/2023 01/19/2024 1 1 * Consultation (Routine) - Closed Specialty Diagnoses / Procedures Referred By Contac t Referred To Contact Diagnoses S/P cervical spinal fusion Type 2 diabetes mellitus with hyperglycemia, with long-term current use of insulin Nelida Cunningham APRN [facility] [place] [address] Britt Mohan, health care aide ID Status Reason Start Date Expiration Date V isits Requested Visits Authorized [id number] Closed Consult, Test & Treat 01/19/2023 01/19/2024 1 1 Reason for Visit * Auth/Cert (Routine) Specialty Diagnoses / Procedures Referred By Juliannac t Referred To Contact Diagnoses Cervical myelopathy Cervical myelopathy Procedures PRO ARTHRODESIS, ANT INTERBODY,DECOMPRESSION; CERVICAL BELOW C2 PRO ANTERIOR INSTRUMENTATION 2-3 VERTEBRAL SEGMENTS PRO INSERT BIOMCHN DEV INTERVERTEBRAL DSC SPC W/ARTHRD OPTIME, IMPLANTABLE/INSERTABLE DEVICE, NOC OPTIME, ANCHOR/SCREW FOR OPPOSING BN-TO-BN OR SOFT [id number] (IMPLANTABLE) ARTHRODESIS, ANT INTERBODY,DECOMPRESSION; CERVICAL BELOW C2 (WRVU 25) ANT. SPINAL INSTRUMENTATION, 2-3 VERTEBRA, SEGMENTED (WRVU 11.94) INSERTION INTERBODY BIOMECH DEV TO INTERVEBRAL DISC SPACE, EA INTERSPACE (WRVU 4.25) MODIFIER CORNERSTONE MODIFIER C6 MODIFIER C7 Jimmy Martinez MD [facility] [place] [address] [facility] Referral ID Status Reason Start Date Expiration Date Visits Re quested Visits Authorized [id number] 1 1 Encounter Details Date Type Department Care Team (Latest Contact Info) Description 01/18/2023 6:19 AM EST - 01/19/2023 2:10 PM EST Hospital Encounter [place] [address] Jimmy Martienz MD [facility] [place] [address] Cervical myelopathy; S/p C6-7 ACDF 01/18/23 Shree; Type 2 diabetes mellitus with hyperglycemia, with long-term current use of insulin Discharge Disposition: Home Social History Tobacco Use [...] Sign Reading Time Taken Comments Blood Pressure 120/65 01/19/2023 12:15 PM EST Pulse 88 01/19/2023 12:15 PM EST Temperature 37.1 ??C (98.8 ??F) 01/19/2023 12:[address] Respiratory Rate 17 01/19/2023 12:15 PM EST Oxygen Saturation 98% 01/19/2023 12:15 PM EST Inhaled Oxygen Concentration - - Weight 75.8 kg (167 lb) 01/18/2023 6:31 AM EST Height 157.5 cm (5' 2) 01/18/2023 6:31 AM EST Body Mass Index 30.54 01/18/2023 6:31 AM EST documented in this encounter Discharge Summaries * Nelida Cunningham P, CNC LATHE MACHINIST - 01/18/2023 10:30 AM EST Discharge Summary Patient Name: Nallely Velazquez Patient Age: 68 y.o. Language: Beninese Race: White Ethnicity: Not nor Admit date: 01/18/2023 Discharge date and time: 01/19/2023 Attending Physician: Jimmy Martinez MD Discharge Physician: Jimmy Martinez MD Follow-up Recommendations for Providers: Referral has been placed with [facility] Diabetes Nurse Specialist and [facility] Endocrinology for follow-up evaluation and management of diabetes in setting of current A1c of 9.6. Will continue usual home diabetes regimen until seen by Diabetes Nurse Specialist and [facility] Endocrinology. See discharge instructions for additional details. Future Appointments Date Time Provider Department Center 01/25/2023 3:00 PM Tom Anna DO [facility] 02/08/2023 12:45 PM Britt Mohan RN [facility] 02/16/2023 12:15 PM [facility] DX ROOM 1 MH Xray [facility] Rad 02/16/2023 1:00 PM Jimmy Martinez MD [facility] Pain Sp [facility] Inpatient Provider Contact Information: Jimmy Martinez MD Spine Center: [phone] After hours and weekends, call [facility] Owner Operator, , and have the Orthopedic resident paged. Discharge Diagnoses (Hospital Problems) and Secondary Diagnoses (Chronic Problems): Active Hospital Problems Diagnosis S/p C6-7 ACDF 01/18/23 Shree Resolved Hospital Problems No resolved problems to display. Active Non-Hospital Problems Diagnosis Cervical myelopathy HNP (herniated nucleus pulposus), cervical NSTEMI (non-ST elevated myocardial infarction) Closed fracture of left wrist Left hand pain Achilles tendon tear, left Type 2 diabetes mellitus with hyperglycemia, with long-term current use of insulin Hypertension penitentiary current use of antithrombotics/antiplatelets Prinzmetal angina Operations/Major Procedures: 01/18/2023 Surgeon(s) and Role: * Jimmy Martinez MD - Primary * Dave Bal MD - Resident - Assisting Procedure(s): 1. C6-C7 anterior cervical discectomy and fusion 2. Anterior cervical plating C6-C7 3. Application of intervertebral device C6-C7 Operative findings: There was a left paracentral disk herniation at C6-C7, causing compression of the left side of the spinal cord. At the conclusion of the case, the spinal cord and bilateral C7 nerve roots were fully decompressed. History of Presentation: Nallely Velazquez is a 68 y.o. female who presented with approximately 1 year of left hand numbness, weakness, and clumsiness in the setting of a left paracentral C6-C7 disc herniation compressing the left side of the spinal cord. She elected to undergo surgery after full discussion of the potential risks and benefits thereof. Hospital Course: Nallely Velazquez was admitted for the above operation. Operative course was as follows. On POD#1 she was allowed out of bed ad don, with no bending or twisting. The patient was instructed to wear a Tripp J at all times. These parameters were reinforced by physical and occupational therapy. Thepatient was transitioned to oral pain medications on POD#1 and was comfortable. She was voiding without difficulty. The drain was removed accidentally on the evening of POD#0 when in X-ray. On POD#1 the dressing was dry and intact and the wound was benign. She did not have a bowel movement prior todischarge but was passing flatus and eating and drinking well. Prior to discharge the patient was af ebrile, with stable vital signs and on POD#1, was deemed stable for discharge to home. Of Note: After surgery, due to blood sugar over 300, Diabetes Nurse Practitioner saw in PACU and adjustmentsmade to insulin. On POD#1, the patient's blood sugar was better controlled but still concern over long-term diabetes management in setting of A1c of 9.6. Recommendations received from Diabetes Management BUN MACHINE OPERATOR for referral to [facility] Diabetes Nurse SpecialistASAP and referral for [facility] Endocrinology (seen there before) for ongoing management of Diabetes in order to facilitate post-op healing. Diabetes Management BUN MACHINE OPERATOR: 01/18/23 Assessment: Patient is a 68 y.o. years old female with PMH significant for DM who was admitted on 01/18/2023 for S/p C6-7 ACDF . Diabetes complicated by elevated glucose levels. Currently with variability of blood glucose levels while hospitalized requiring adjustment of insulin regimen and DM medications. Weight based considerations: Calculated TDD would be: 30 Glargine dosin Carb ratio: 16.6 Correction Scale:50 Trulicity was taken on Monday. Due to elevated glucose level when patient came into hospital and unknown A1c level. Recommend adding back home dose of levemir 10 units at bedtime (if patient has started eating, if not give 5 units). No other changes made at this time . Will continue to monitor. Plan: 1. Levemir 5-10 units at bedtime 2. Lispro custom correction scale for BG>140 3. Lispro 1unit: 20 gm carb ratio for each meal Diabetes Discharge Planning Medications - Outpatient treatment regimen recommendations pending based on the hospital course. Monitoring - continue BG 4 times daily, ac & hs Diet - low fat/low carb diet Exercise - weight-bearing exercise 30 min/day, as tolerated Thank you for allowing us to provide care for your patient Anisa Hernandez APRN [facility] Endocrinology Diabetes Management Pager [phone] Vital Signs at Discharge: Weight: Wt Readings from Last 1 Encounters: 01/18/23 75.8 kg (167 lb) Height: Ht Readings from Last 1 Encounters: 01/18/23 157.5 cm (5' 2) HC: HC Readings from Last 1 Encounters: No data found for HC BMI: Body mass index is 30.54 kg/m??. Last value Range last 24 hrs Temperature Temp: 37.1 ??C (98.8 ??F) Temp: [36.6 ??C (97.9 ??F)-37.1 ??C (98.8 ??F)] Heart Rate Heart Rate: 87 Heart Rate: [87] Blood Pressure BP: 119/71 BP: (113-149)/(64-81) Respiratory Rate Resp: 14 Resp: [14-16] SpO2 SpO2: 98 % SpO2: [97 %-99 %] Functional and Cognitive Status: Patient mobilizing with a hard cervical collar, cognitively intactat baseline mental status at time of discharge. Important Lab Data: Last 3 wbc, hgb, hct plt Recent Labs 01/19/23 003 WBC 13.3* HGB 12.7 HCT 37.3 PLATELET 265 Last 3 Lytes Recent Labs 01/19/239 01/18/23 1310 NA 138 135 K 4.1 Not Perf CL 107 103 CO2 22 24 BUN 15 18 CREATININE 1.01 1.00 Last 3 LFTs No results for input(s): AST, ALT, ALKPHOS, BILITOT, BILIDIR in the last 7068hours. Last Ca, Mg, Phos Recent Labs 01/19/23 0039 CALCIUM 8.5 Last 3 ProBNP, Trop, CK No results for input(s): CK, TROPONINT, PROBNP in the last 168 hours. Last 3 HgbA1C Recent Labs 01/18/23 1220 HA1C 9.6* Last CRP, SEDRATENo results for input(s): CRP, SEDRATE in the last 7068 hours. Studies: XR Cervical Spine 2 or 3 Views Result Date: 01/19/2023 EXAMINATION: XR CERVICAL SPINE 2 OR 3 VIEWS CLINICAL HISTORY: S/p C6-7 ACDF TECHNIQUE: AP and lateral seated upright views of the cervical spine COMPARISON: Radiographs December 27 and January 18, 2023; MRI December 27, 2022 FINDINGS: The lateral view images through the upper half of C6 vertebral body. Vertebral body height is preserved. No fracture. Anterior cervical disc fusion C6-7 with anterior plate and screws has intact hardware without adjacent lucency. Evaluation of lower vertebral body alignment is obscured by the shoulder girdles. Unchanged, bilateral facet joint osteophytes. Spacing and alignment are otherwise preserved at the intervertebral disks and facet joints. Surgical drain tubing at the anterior left neck is intact. The patient is edentulous. Soft tissue prominence in the prevertebral soft tissues is consistent with the recent surgery. Carotid and aortic arch atherosclerosis. Survey of skull base and thoracic inlet is otherwise normal. Status post anterior cervical disc fusion C6-7 without radiographic finding of complication or acute abnormality, noting alignment evaluation is obscured by the shoulders on the lateral projection. Thank you for letting us participate in the care of this patient. If you are a health care provider and have any questions regarding this report, please contact the number below. For patients who have questions please contact the health career manager that requested your imaging first. Electronically signed by: Kelle Tello MD, [facility] ([phone]), at 01/19/2023 11:23 AM XR Cervical Spine 1 View Result Date: 01/18/2023 EXAMINATION: XR CERVICAL SPINE 1 VIEW CLINICAL HISTORY: intraoperative level confirmation TECHNIQUE: 1 views of the cervical spine COMPARISON: C-spine radiograph the same day. FINDINGS: Endotracheal tube, and esophageal temperature probe are noted. Interval changes compatible with ACDF of C6-C7, with C6-C7 intervertebral disc spacer. Prevertebral soft tissue swelling tissue defect along the anterior neck are expected findings in the perioperative period. ACDF C6-C7 changes Thank you for letting us participate in the care of this patient. If you are a health care provider and have any questions regarding this report, please contact the number below. For patients who have questions please contact the health career manager that requested your imaging first. Electronically signed by: Abimael Woodard MD, [facility] ([phone]), at 01/18/2023 2:41 PM XR Cervical Spine 1 View Result Date: 01/18/2023 EXAMINATION: XR CERVICAL SPINE 1 VIEW CLINICAL HISTORY: intraoperative level confirmation TECHNIQUE: 1 views of the cervical spine COMPARISON: None FINDINGS: Limited radiograph obtained for intraoperative level confirmation. Endotracheal tube, and esophageal temperature probe are noted. There is a horizontally oriented metallic device projecting over the prevertebral soft tissues, and C6 vertebra. Metallic device projecting over the C6 vertebra. Thank you for letting us participate in the care of this patient. If you are a health care provider and have any questions regarding this report, please contact the number below. For patients who have questions please contact the health career manager that requested your imaging first. Electronically signed by: Abimael Woodard MD, [facility] ([phone]), at 01/18/2023 12:22 PM SCAN DOC: TELEMETRY STRIPS Result Date: 01/18/2023 Ordered by an unspecified provider. SCAN DOC: ECG Result Date: 01/16/2023 Ordered by an unspecified provider. MRI Cervical Spine wo Contrast (Generic) Result Date: 12/27/2022 EXAMINATION: MRI CERVICAL SPINE WO CONTRAST (GENERIC) CLINICAL HISTORY: Myelopathy, chronic, cervical spine r/o progression of known cord compression TECHNIQUE: MRI of the cervical spine performed without intravenous contrast administration. COMPARISON: MRI cervical spine 06/29/2021 FINDINGS: Alignment is normal. The vertebral bodies are normal in height and marrow signal. The cervical cord is normal in signal. No prevertebral or perivertebral soft tissue abnormalities. C2-C3: Normal. No disc herniation, canal stenosis or neural foraminal narrowing. C3-C4: Mild uncovertebral arthropathy. No canal stenosis or neural foraminal narrowing. No significant change. C4-C5: Discussed effect complex contacts the ventral surface of the cord. Mild uncovertebral and facet arthropathy. Mild flattening of the cord. Moderate central canal stenosis and mild left neural foraminal narrowing. No significantchange. C5-C6: Disc osteophyte complex contacts the ventral surface of the cord. Left greater than r ight uncovertebral and facet arthropathy contribute to mild central canal stenosis and mild left neural foraminal narrowing. No significant change. C6-C7: Central disc extrusion with 8 mm cranial migration, slightly increased from the comparison examination. Along with uncovertebral and facet arthropathy, buckling of the ligamentum flavum the findings contribute to moderate central canal stenosisand moderate left neural foraminal narrowing. Mild flattening of the cord. No significant interval change. C7-T1: Normal Moderate central canal stenosis at C6-C7 mostly due to unchanged disc extrusion. No interval progression of canal narrowing or neural foraminal narrowing. Thank you for letting us participate in the care of this patient. If you are a health care provider and have any questions regarding this report, please contact the number below. For patients who have questions please contact the health care pro fessional that requested your imaging first. Electronically signed by: Bj Garza MD, [facility] ([phone]), at 12/27/2022 2:32 PM XR Cervical Spine AP Flexion & Extension Only Result Date: 12/27/2022 EXAMINATION: XR CERVICAL SPINE AP FLEXION [...] Survey of the skull base is unremarkable. 1. No spinal listhesis, or dynamic instability. 2. Diffuse mild multilevel degenerative disc disease. Thank you for letting us participate in the care of this patient. If you are a health care provider and have any questions regarding this report, please contact the number below. For patients who have questions please contact the health career manager that requested your imaging first. Electronically signed by: Abimael Woodard MD, [facility] ([phone]), at 12/27/2022 11:09 AM Pending Studies and Lab Data at Discharge: None Transfusions: No Discharge Conditions/Prognosis: Stable, awake, and alert. Mobilizing as noted above, pain controlled on oral medications. Discharge to: Home Updated Allergies/ADRs: Allergies Allergen Reactions Amlodipine Other Reaction(s): cough [...] skin reaction Lisinopril Other Reaction(s): cough, other Immunizations Given this Hospitalization: There is no immunization history on file for this patient. Discharge Medications: Your Medications New Medications Dose Details acetaminophen 500 mg tablet Commonly known as: Tylenol Take 2 tablets by mouth every 8 hours. Continue the Tylenol around the clock for 10 days after surgery, (01/28/23). Then may take if needed per package insert. Do not take more than 3,000 mg of Tylenol in 24 hours. 1,000 mg Refills: 0 oxyCODONE 5 mg tablet Commonly known as: Roxicodone Take 1-2 tablets by mouth every 4 hours as needed for Pain (Acute post-op surgical pain). 5-10 mg Quantity: 35 tablet Refills: 0 polyethylene glycoL 17 gram oral powder packet Commonly known as: Miralax Take 17 g by mouth 2 times daily as needed (constipation). 17 g Refills: 0 senna-docusate 8.6-50 mg Tablet Commonly known as: Pericolace Take 2 tablets by mouth 2 times daily as needed for Constipation. 2 tablet Refills: 0 Continued medications with new dosing Dose Details HumuLIN R U-500 (Conc) Kwikpen 500 unit/mL (3 mL) Insulin Pen Take 10 units with breakfast, 5 units at lunch and 10 units at bedtime Generic drug: insulin regular human U-500 What changed: additional instructions Refills: 0 Continued medications, unchanged Dose Details albuteroL 90 mcg/actuation HFA Aerosol Inhaler Every 4 hours. Refills: 0 dulaglutide 3 mg/0.5 mL Pen Injector Commonly known as: Trulicity Inject 0.5 mLs subcutaneously once a week. Indications: type 2 diabetes mellitus 3 mg Quantity: 6 mL Refills: 3 EPINEPHrine 0.3 mg/0.3 mL Auto-Injector Inject 0.3 mg into the muscle once as needed. 0.3 mg Refills: 0 fluticasone propion-salmeteroL 230-21 mcg/actuation HFA Aerosol Inhaler Commonly known as: ADVAIR HFA Inhale 1 puff into the lungs 2 times daily. 1 puff Refills: 0 fluticasone propionate 50 mcg/actuation [place], Suspension Commonly known as: Flonase 1 spray by Each Nare route as needed. 1 spray Refills: 0 FreeStyle Alonzo 14 Day Sensor Kit Generic drug: flash glucose sensor Refills: 0 gabapentin 100 mg capsule Commonly known as: Neurontin Take 100 mg by mouth nightly as needed. 100 mg Refills: 0 isosorbide mononitrate 60 mg ER 24 hr tablet Commonly known as: Imdur Take 60 mg by mouth daily. 60 mg Refills: 0 Levemir FlexPen 100 unit/mL (3 mL) Insulin Pen Inject 10 Units subcutaneously nightly. *taking 10 units at night* Generic drug: insulin detemir U-100 10 Units Refills: 0 Lipitor 80 mg tablet Take 80 mg by mouth nightly. Generic drug: atorvastatin 80 mg Refills: 0 losartan 100 mg tablet Commonly known as: Cozaar Take 100 mg by mouth Daily. 100 mg Refills: 0 metoprolol succinate XL 50 [...] by mouth daily. 20 mg Refills: 0 prednisoLONE acetate 1 % Drops, Suspension Commonly known as: Pred-Forte Place 1 drop into the right eye as needed. 1 drop Refills: 0 Tessalon Perles 100 mg capsule Take 100 mg by mouth 3 times daily as needed. Generic drug: benzonatate 100 mg Refills: 0 triamcinolone 0.5 % Cream Commonly known as: ARISTOCORT Apply topically 3 times daily as needed. Refills: 0 Zofran 4 mg tablet Take 4 mg by mouth as needed. Generic drug: ondansetron 4 mg Refills: 0 STOPPED Medications ASPIRIN ORAL Smoking Status at Discharge: Social History Tobacco Use Smoking Status Never Smokeless Tobacco Never Instructions Given to Patient at Discharge: Patient Instructions Activity: 1. You may perform your daily activities as tolerated but minimize bending at the waist greater than 90 degrees, twisting around your waist, or lifting anything heavier than 5-10 lbs (about a full gallon of water.) 2. In general, guide your activity by the thought that if it hurts, don???t do it. 3. In addition, we recommend taking several walks every day after surgery and gradually increasing your distance and duration over the next 2-4 weeks. Diet: 1. Eat your normal carb control diet, with adequate amounts of protein and fiber. 2. The pain medications you are taking can cause constipation, so increase your intake of fluids and fiber while you are taking them. 3. You should also take an [id number] stool softener or laxative, such as Nathaly-colace or Miralax, to facilitate a bowel movement. Drivin. You are not allowed to drive if you are still requiring narcotic pain medication to manage your discomfort. 2. Since you are being sent home in soft Cervical Collar, do not drive until you have adequate range of motion of your neck and are no longer requiring the soft collar for comfort. Call the Spine Center or your Primary Care Physician if you have questions or concerns. Soft Collar Instructions: 1. You are being sent home with a soft cervical collar. It can be worn for comfort and can be removed as needed. 2. Do not put powder or lotion underneath the collar. 3. You should inspect your skin daily for redness or irritation caused by the collar. Medication: 1. You are being discharged on a narcotic pain medication. Common side effects of this medication include drowsiness, nausea, and constipation. You should only take the smallest amount of pain medication that adequately controls your pain. 2. You may take Tylenol (acetaminophen) around the clock as directed on the package to help reduce the amount of narcotic medication you need. Do not take more than 3,000mg of acetaminophen in a 24 hour period. 3. You have had a spinal fusion surgery. DO NOT take any nonsteroidal anti- inflammatory medication (NSAID) such as Aleve, Ibuprofen, Motrin, Naprosyn, or Advil. 4. If you need a renewal of your pain medication, please contact the [facility] Center Prescription Lineat [phone]. PRESCRIPTION RENEWAL REQUESTS CAN TAKE UP TO 3 DAYS TO FILL. Be sure to allow for this when requesting a new prescription. The new prescription will be sent electronically to your preferred pharmacy. 5. You may resume your daily Aspirin 3 days after surgery, 01/21/23. Diabetes: Resume usual Diabetes home regimen. A referral has been placed with [facility] Diabetes Nurse Educator and [facility] Endocrinology for close follow-up management of diabetes. You will be called with an appointment time for these appointments. Blood Pressure: Because your blood pressure was on the low side after surgery, take your blood pressure prior to taking your daily Imdur, losartan and metoprolol. If your systolic blood pressure (top number) is lessthan 120, hold the losartan. If your blood pressure is less than 105, hold the Metoprolol and Imdur. Also if your heart rate is less than 55, hold the metoprolol. If you hold any of these medicationstwice, contact your Primary Care Provider for further evaluation and management of these medications. Wound Care/Shower/Bath: 1. You have absorbable sutures under your skin that do not need to be removed. They are covered by steri-strips, gauze and a clear plastic Tegaderm dressing. 2. This dressing should stay in place until 4 days after your surgery. After 4 days, on 01/22/23, you may remove the dressing and leave the incision uncovered so long as there is no continued drainage. If there is drainage, you may replace the dressing with a clean, dry gauze held in place with tape. Any bandage over the incision should be dry at all times and should be replaced if wet. If the incision continues to drain 5 days after surgery, please call the Spine Center at the number below. 3. After the dressing is removed, 4 days after surgery, the paper strips (steri- strips) should be kept in place. After 14 days you can remove the remaining steri-strips if they have not fallen off already. 4. For the first 4 days after surgery, shower with the clear plastic Tegaderm dressing covering your incision to keep it dry. After 4 days when the dressing has been removed, you may allow water to run over the incision when you shower but do not scrub the surrounding skin. Gently pat dry with a clean, dry towel after showering. 5. Do not soak the incision underwater (i.e. lakes, pools, hot tubs, bath tubs, etc.) for at least 4 weeks until the incision has completely healed. PLEASE CALL US AT [phone] TO SPEAK WITH A SPINE CENTER NURSE IF YOU EXPERIENCE THE FOLLOWING: ?? Fevers greater than 101.5 degrees Fahrenheit ?? Chills or night sweats ?? Nausea or vomiting ?? Wound Redness or drainage after 5 days ?? New numbness or tingling in your hands or feet ?? Incontinence of bowel or bladder ?? Any questions or concerns Important Phone Numbers: Clinical issues, nurse questions, medication renewals: [phone] Martinez: [phone] Evenings after 5pm and weekends you may contact the Orthopaedic resident nanofabrication specialist: [phone], askthe nailing machine operator automatic to page the Orthopaedic resident Follow Up Appointments: Because of your elevated hemoglobin A1c, a referral has been placed with [facility] Diabetes Nurse Educator and [facility] Endocrinology for close follow-up management of diabetes. You will be called with an appointment time for these appointments. Healing can be more difficult if your blood sugar/A1c is out of control. 2. You will have follow-up appointments at [facility] as indicated in the ???Future Appointments and Orders?? section of your discharge summary. If X-rays have been ordered for you prior to this appointment you will need to report to the Radiology department, desk 3T, 1 hour prior to your spine center appointment. 3. If you do not have a scheduled follow-up appointment listed at the time of discharge, you will be notified of your scheduled appointment on the next business day. Please call [phone] if you do not hear from us by that time, as your timely follow-up is very important to us. Future Appointments Date Time Provider Department Center 01/25/2023 3:00 PM Tom Anna, DO [facility] ENDO [facility] 02/08/2023 12:45 PM Britt Mohan RN [facility] ENDO [facility] 02/16/2023 12:15 PM [facility] DX ROOM 1 MH Xray [facility] Rad 02/16/2023 1:00 PM Jimmy Martinez MD [facility] Pain Sp [facility] General Instructions None Future Appointments and Orders Future Appointments and Orders Future Appointments Provider Department Dept Phone 01/25/2023 3:00 PM Tom Anna DO; [facility] ENDOCRINOLOGY PRECEPTOR Endocrinology at [facility] Arrive at: Portfolio Director Area 3A [phone] 02/08/2023 12:45 PM Britt Mohan RN Endocrinology at [facility] Arrive at: Portfolio Director Area 3A [phone] 02/16/2023 12:15 PM [facility] DX ROOM 1 XRay at [facility] Arrive at: Portfolio Director Area 3T [phone] Please go to Portfolio Director Area 3T ([place] Location). 02/16/2023 1:00 PM Jimmy Martinez MD Pain and Spine Center at [facility] Arrive at: Portfolio Director Area 3D [phone] Future Orders Complete By Expires Referral to Diabetic Education [REF20 Custom] As directed Process Instructions: If requesting Insulin initiation, please provide Insulin order in the comments field. Scheduling Instructions: Comments: A1c 9.8 on 01/18/23 - s/p C4-7 ACDF 01/17/23 Anisa Hernandez saw post-op- question why on U500 and not U100? Questions: Date of diagonsis: Diabetes treated with: Insulin Pen Oral Medication Diet Insulin Needle Other (enter comment) Exercise restrictions: Does patient have Complications or Comorbidities?: Yes (See Problem List) Type of Session: Individual and Group Special Needs for Individual Training: Type of Diabetes Self-Management Training: Initial DSMT DSMT Content: All content areas as appropriate Type Of Medical Nutrition Therapy (MNT): Initial MNT Referral to Endocrinology [REF22 Custom] As directed Process Instructions: If no progress note charted, please enter Clinical details in comments. Scheduling Instructions: Questions: My question or request is: A1c 9.6, s/p C6-7 ACDF 01/18/23 - not new patient seen in Endocrinology before, seen by Anisa Hernandez post-op Specialist Level of Involvement: Shared Management with PCP Is patient being referred for thyroid nodule?: No Primary Care Provider: Haylee Baptiste MD [phone] Discharge References/Attachments None documented in this encounter Discharge Instructions * Patient Instructions* Nelida Cunningham, CNC LATHE MACHINIST - 01/18/2023 10:30 AM EST Activity: 1. You may perform your daily activities as tolerated but minimize bending at the waist greater than 90 degrees, twisting around your waist, or lifting anything heavier than 5-10 lbs (about a full gallon of water.) 2. In general, guide your activity by the thought that if it hurts, don???t do it. 3. In addition, we recommend taking several walks every day after surgery and gradually increasing your distance and duration over the next 2-4 weeks. Diet: 1. Eat your normal carb control diet, with adequate amounts of protein and fiber. 2. The pain medications you are taking can cause constipation, so increase your intake of fluids and fiber while you are taking them. 3. You should also take an [id number] stool softener or laxative, such as Nathaly-colace or Miralax, to facilitate a bowel movement. Drivin. You are not allowed to drive if you are still requiring narcotic pain medication to manage your discomfort. 2. Since you are being sent home in soft Cervical Collar, do not drive until you have adequate range of motion of your neck and are no longer requiring the soft collar for comfort. Call the Spine Center or your Primary Care Physician if you have questions or concerns. Soft Collar Instructions: 1. You are being sent home with a soft cervical collar. It can be worn for comfort and can be removed as needed. 2. Do not put powder or lotion underneath the collar. 3. You should inspect your skin daily for redness or irritation caused by the collar. Medication: 1. You are being discharged on a narcotic pain medication. Common side effects of this medication include drowsiness, nausea, and constipation. You should only take the smallest amount of pain medication that adequately controls your pain. 2. You may take Tylenol (acetaminophen) around the clock as directed on the package to help reduce the amount of narcotic medication you need. Do not take more than 3,000mg of acetaminophen in a 24 hour period. 3. You have had a spinal fusion surgery. DO NOT take any nonsteroidal anti- inflammatory medication (NSAID) such as Aleve, Ibuprofen, Motrin, Naprosyn, or Advil. 4. If you need a renewal of your pain medication, please contact the Spine Center Prescription Lineat [phone]. PRESCRIPTION RENEWAL REQUESTS CAN TAKE UP TO 3 DAYS TO FILL. Be sure to allow for this when requesting a new prescription. The new prescription will be sent electronically to your preferred pharmacy. 5. You may resume your daily Aspirin 3 days after surgery, 01/21/23. Diabetes: Resume usual Diabetes home regimen. A referral has been placed with [facility] Diabetes Nurse Educator and [facility] Endocrinology for close follow-up management of diabetes. You will be called with an appointment time for these appointments. Blood Pressure: Because your blood pressure was on the low side after surgery, take your blood pressure prior to taking your daily Imdur, losartan and metoprolol. If your systolic blood pressure (top number) is lessthan 120, hold the losartan. If your blood pressure is less than 105, hold the Metoprolol and Imdur. Also if your heart rate is less than 55, hold the metoprolol. If you hold any of these medicationstwice, contact your Primary Care Provider for further evaluation and management of these medications. Wound Care/Shower/Bath: 1. You have absorbable sutures under your skin that do not need to be removed. They are covered by steri-strips, gauze and a clear plastic Tegaderm dressing. 2. This dressing should stay in place until 4 days after your surgery. After 4 days, on 01/22/23, you may remove the dressing and leave the incision uncovered so long as there is no continued drainage. If there is drainage, you may replace the dressing with a clean, dry gauze held in place with tape. Any bandage over the incision should be dry at all times and should be replaced if wet. If the incision continues to drain 5 days after surgery, please call the Spine Center at the number below. 3. After the dressing is removed, 4 days after surgery, the paper strips (steri- strips) should be kept in place. After 14 days you can remove the remaining steri-strips if they have not fallen off already. 4. For the first 4 days after surgery, shower with the clear plastic Tegaderm dressing covering your incision to keep it dry. After 4 days when the dressing has been removed, you may allow water to run over the incision when you shower but do not scrub the surrounding skin. Gently pat dry with a clean, dry towel after showering. 5. Do not soak the incision underwater (i.e. lakes, pools, hot tubs, bath tubs, etc.) for at least 4 weeks until the incision has completely healed. PLEASE CALL US AT [phone] TO SPEAK WITH A SPINE CENTER NURSE IF YOU EXPERIENCE THE FOLLOWING: ?? Fevers greater than 101.5 degrees Fahrenheit ?? Chills or night sweats ?? Nausea or vomiting ?? Wound Redness or drainage after 5 days ?? New numbness or tingling in your hands or feet ?? Incontinence of bowel or bladder ?? Any questions or concerns Important Phone Numbers: Clinical issues, nurse questions, medication renewals: [phone] Martinez: [phone] Evenings after 5pm and weekends you may contact the Orthopaedic resident nanofabrication specialist: [phone], askthe nailing machine operator automatic to page the Orthopaedic resident Follow Up Appointments: Because of your elevated hemoglobin A1c, a referral has been placed with [facility] Diabetes Nurse Educator and [facility] Endocrinology for close follow-up management of diabetes. You will be called with an appointment time for these appointments. Healing can be more difficult if your blood sugar/A1c is out of control. 2. You will have follow-up appointments at [facility] as indicated in the ???Future Appointments and Orders?? section of your discharge summary. If X-rays have been ordered for you prior to this appointment you will need to report to the Radiology department, desk 3T, 1 hour prior to your spine center appointment. 3. If you do not have a scheduled follow-up appointment listed at the time of discharge, you will be notified of your scheduled appointment on the next business day. Please call [phone] if you do not hear from us by that time, as your timely follow-up is very important to us. Future Appointments Date Time Provider Department Center 01/25/2023 3:00 PM Tom Anna, DO [facility] ENDO [facility] 02/08/2023 12:45 PM Britt Mohan RN [facility] ENDO [facility] 02/16/2023 12:15 PM [facility] DX ROOM 1 MH Xray [facility] Rad 02/16/2023 1:00 PM Jimmy Martinez MD [facility] Pain Sp [facility] documented in this encounter Medications at Time of Discharge Medication Sig Dispensed Refills Start Date End Date senna-docusate (Pericolace) 8.6-50 mg Tablet Take 2 tablets by mouth 2 times daily as needed for Constipation. 01/19/2023 atorvastatin (Lipitor) 80 mg tablet Take 80 mg by mouth nightly. benzonatate (Tessalon Perles) 100 mg capsule Take 100 mg by mouth 3 times daily as needed. 09/11/2020 EPINEPHrine 0.3 mg/0.3 mL Auto-Injector Inject 0.3 mg into the muscle once as needed. 09/11/2020 FreeStyle Laonzo 14 Day Sensor Kit 01/02/2023 fluticasone propion-salmeteroL (ADVAIR HFA) 230-21 mcg/actuation HFA Aerosol Inhaler Inhale 1 puff into the lungs 2 times daily. 03/15/2022 fluticasone propionate (Flonase) 50 mcg/actuation [place], Suspension 1 spray by Each Nare route [...] post-op surgical pain). 35 tablet 01/19/2023 05/11/2023 acetaminophen (Tylenol) 500 mg tablet Take 2 tablets by mouth every 8 hours. Continue the Tylenol around the clock for 10 days after surgery, (01/28/23). Then may take if needed per package insert. Do not take more than 3,000 mg of Tylenol in 24 hours. 01/19/2023 02/16/2023 polyethylene glycoL (Miralax) 17 gram oral powder [...] the right eye as needed. 10/26/2022 07/31/2023 dulaglutide (Trulicity) 3 mg/0.5 mL Pen InjectorIndications: type 2 diabetes mellitus Inject 0.5 mLs subcutaneously once a week. Indications: type 2 diabetes mellitus 6 mL 3 10/13/2021 01/25/2023 documented as of this encounter Progress Notes * Celia Harvey, RN - 01/19/2023 12:39 PM EST [facility] Short Stay Unit Discharge Note All relevant discharge milestones have been met by the patent. After Visit Summary and discharge teaching reviewed with the patient. IV access has been discontinued. All personal belongings have been returned to the patient/family upon their departure from the unit. Patient has been discharged to home The patient has been discharged without VNA services. * Judy Lopez PT - 01/19/2023 8:45 AM EST Physical Therapy (P) evaluation (P) 1 Patient profile: Nallely Velazquez is a 68 y.o. female admitted on 01/18/2023 for C7-[address] Martinez. Past Medical History Past Medical History: Diagnosis [...] Left 09/27/2018 Justin De La Cruz MD [facility] INTERVENTIONL RAD PRO ANTERIOR INSTRUMENTATION 2-3 VERTEBRAL SEGMENTS Midline 01/18/2023 ANT. SPINAL INSTRUMENTATION, 2-3 VERTEBRA, SEGMENTED (WRVU 11.94) performed by Jimmy Martinez MD at [facility] MAIN OR PRO ARTHRODESIS, ANT INTERBODY,DECOMPRESSION; CERVICAL BELOW C2 Midline 01/18/2023 ARTHRODESIS, ANT INTERBODY,DECOMPRESSION; CERVICAL BELOW C2 (WRVU 25) performed by Jimmy Martinez MD at [facility] MAIN OR PRO INSERT BIOMCHN DEV INTERVERTEBRAL DSC SPC W/ARTHRD Midline 01/18/2023 INSERTION INTERBODY BIOMECH DEV TO INTERVEBRAL DISC SPACE, EA INTERSPACE (WRVU 4.25) performed by Jimmy Martinez MD at [facility] MAIN OR Social History: Patient lives with . 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 No use of AD/DME Precautions/Special Considerations: No bending, lifting >5lb, twist of cervical spine; soft collar for comfort Diet: Carb control; thin liquids Mobility and Positioning Recommendations: Pt is independent with functional transfers and ambulation. Please encourage up to chair for meal times as able. Pt encouraged to ambulate into the bathroom for toileting and walking out in the cook >/= 3 times daily as able with nursing assist. Subjective: ???I've been up walking around for a while?? Objective: Pt seen for evaluation today. Pain: No complaints of pain. Vital Signs / Cardiopulmonary: Stable on RA, no s/s hypotension Mental Status: alert, oriented to person, place, and time Skin: Incision covered, otherwise intact Musculoskeletal: ROM: BLE WFL Strength: BLE not formally assessed but at least 3+/5 seen with functional activity Sensation: BLE intact to LT but reports tingling Bed Mobility: Supine to Sit: Independent Sit to Supine: Independent Transfers: Sit to Stand: Independent Stand to Sit: Independent Gait: Distance: 200' Device used: None Level of assist: SBA Gait deviations: Mild lateral sway and decreased step length/height B; no LOB noted Stairs: ascend/descend FOS with BHR SBA; non reciprocal step pattern Balance: Good without AD Education/Exercise Instruction: Pt educated on safety with stair training trials. Pt verbalizes anddemonstrates understanding. Assessment: Nallely Doss Caroline was seen today for physical therapy evaluation. Pt presents with mild decreased standing balance and good activity tolerance. Pt participating in bed mobility, functional transfers, gait training, and stair training safely as noted above. Pt has met all goals suffic ient for discharge from skilled inpatient PT services. Plan: (P) once Patient/family understand and agree with plan as stated above. Discharge Recommendations: Based on current functional status- (P) home with supervision Equipment needs for home at d/c: (P) None Patient status, treatment, and mobility recommendations have been discussed with nursing. Time IN / OUT: 8:45 - 9:08 Total Time: (P) 23 minutes, Judy Lopez, PT Pager: [phone] Physical Therapy Inpatient Rehabilitation Department 2017 PT Evaluation Code Rationale: Diagnosis & Pertinent Co-Morbidities, personal factors, and present illness affecting Plan of Care: (see above); Additional personal factors or co- morbidities that impact plan: Total # of Factors: 0 1-2 3+ Examination of body system impairments, functional limitations and behaviors, and/or participation restrictions. Addressing 1-2 elements Addressing 3 + elements Addressing 4 + elements Clinical presentation: See assessment above. Stable/Uncomplicated Evolving/Fluctuating Symptoms Unstable/Unpredictable Clinical decision making of low complexity based on pt's functional performance as outlined in thisevaluation. * Jimmy Martinez MD - 01/19/2023 6:36 AM EST ORTHOPAEDIC SURGERY INPATIENT POST OP NOTE Patient Name: Nallely Velazquez Age: 68 y.o. Surgery/Issue: C6-7 ACDF Attending: Dr. Martinez Date of surgery: 01/18/2023 SUBJECTIVE / INTERVAL HISTORY: Patient well this AM, less nauseous than yesterday. Drain dislodged when she got out of bed. Symptoms seem stable to her from preop. Patient denies new numbness/weakness, chest pain, shortness of breath, dizziness, headache, hoarseness, difficulty swallowing. Pre-op symptoms: numbness, weakness, and clumsiness in LUE, mild balance changes Pre-op symptoms currently present: numbness, weakness LUE FOCUSED REVIEW OF SYSTEMS: as above. Active Hospital Problems Diagnosis S/p C6-7 ACDF 01/18/23 Shree Resolved Hospital Problems No resolved problems to display. 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 current use of antithrombotics/antiplatelets Prinzmetal angina MEDICATIONS: glucose (Glutose) 40% oral geL OR dextrose 10% infusion OR glucagon (Glucagen) (1 mg/mL) injection solution 1 mg POCT Fingerstick Glucose AND insulin lispro (HumaLOG;Admelog) (100 unit/mL) subcutaneous injection vial 1-6 Units insulin lispro (HumaLOG;Admelog) (100 unit/mL) subcutaneous injection vial 0-6 Units thrombin (Bovine) (Thrombinar) kit BUpivacaine (pf) (Marcaine) (2.5 mg/mL) 0.25% injection ipratropium-albuteroL (Duoneb) 0.5 mg-3 mg(2.5 mg base)/3 mL nebulizer solution 3 mL atorvastatin (Lipitor) tablet 80 mg losartan (Cozaar) tablet 100 mg metoprolol succinate XL (Toprol-XL) tablet 50 mg sodium chloride 0.9 % (flush) (BD PosiFlush Normal Saline 0.9) flush 5 mL sodium chloride 0.9 % (flush) (BD PosiFlush Normal Saline 0.9) flush 5-20 mL lidocaine (Xylocaine) 1% (10 mg/mL) injection 3 mg ondansetron (pf) (Zofran) (2 mg/mL) injection 4 mg sodium chloride 0.9% infusion oxyCODONE (Roxicodone) tablet 5 mg OR oxyCODONE (Roxicodone) tablet 10 mg OR oxyCODONE (Roxicodone) tablet 15 mg acetaminophen (Tylenol) tablet 975 mg insulin detemir (Levemir) (100 unit/mL) subcutaneous injection vial 5-10 Units prochlorperazine (Compazine) (5 mg/mL) injection 5 mg pantoprazole EC (Protonix) tablet 40 mg sodium chloride 0.9% 1,000 mL (01/18/23 1029) OBJECTIVE: Temp: [35.6 ??C (96.1 ??F)-37 ??C (98.6 ??F)] Heart Rate: [65-72] Resp: [10-22] BP: (108-157)/(59-87) Intake/Output Summary (Last 24 hours) at 01/19/2023 0636 Last data filed at 01/19/2023 0408 Gross per 24 hour Intake 930 ml Output 1575 ml Net -645 ml Body mass index is 30.54 kg/m??. Exam: General: NAD, awake/alert, responds to questions Neck: Soft collar in place. No evidence of hematoma, dressing c/d/I. CV: RRR Resp: Breathing comfortably, lungs CTAB Motor: Segment Muscle Action R L C5 Deltoid Shoulder Abd 5 5 C5 Biceps Elbow flexion 5 5 C6 ECRL, ECRB Wrist extension 5 5 C7 Triceps Elbow extension 5 5 C8 Hand Grasp 5 4+ T1 Hand intrinsics Finger abd/adduction 5 4+ L2 Iliopsoas Hip flexion 5 5 L3 Quadriceps Knee extension 5 5 L4,5 Hamstring Knee Flexion 5 5 L4 Tibialis anterior Dorsiflexion 5 5 L5 Extensor hallucis Great toe extension 5 5 S1 Gastrocnemius, FHL Plantar flexion 5 5 Sensory: Sensation (light touch) (0=absent, 1=impaired, 2=normal) Segment location Right Left C4 top of AC joint 2 2 C5 lat side antecub fossa 2 1 C6 dorsal thumb 2 1 C7 dorsal middle finger 2 1 C8 dorsal small finger 2 1 T1 med side antecub fossa 2 2 T2 apex axilla 2 2 T3 3rd IS (intercostal space) 2 1 T4 nipple line 2 2 T5 5th IS 2 2 T6 6th IS 2 2 T7 7th IS 2 2 T8 8th IS 2 2 T9 9th IS 2 2 T10 10th iS 2 2 T11 11th iS 2 2 T12 mid inguinal ligament 2 2 L1 upper inner thigh 2 2 L2 mid-ant thigh 2 2 L3 med femoral condyle 2 2 L4 medial mal 2 2 L5 dorsum foot, 3rd MT 2 1 S1 lat heal 2 1 S2 Popliteal fossa 2 2 Lab Results Component Value Date NA 138 01/19/2023 K 4.1 01/19/2023 CL 107 01/19/2023 CO2 22 01/19/2023 BUN 15 01/19/2023 CREATININE 1.01 01/19/2023 GLUCOSE 172 01/19/2023 GLUCFASTING 107 (H) 09/01/2021 CALCIUM 8.5 01/19/2023 Lab Results Component Value Date WBC 13.3 (H) 01/19/2023 HGB 12.7 01/19/2023 HCT 37.3 01/19/2023 MCV 85.4 01/19/2023 PLATELET 265 01/19/2023 IMAGING: Cspine lateral shows instrumentation in place at C6-7. ASSESSMENT / PLAN: Nallely Velazquez is a 68 y.o. female 1 Day Post-Op s/p C6-7 ACDF. Progressing well postoperatively. Plan to work with PT/OT today, possible discharge. Activity: AAT no b/t/l > 5 lbs in collar DVT prophylaxis: NA Closure: Resorbable sutures Dressing: DSD x 7 days Antibiotics: Periop Katie Bal MD 01/19/2023 Future Appointments Date Time Provider Department Center 02/16/2023 12:15 PM [facility] DX ROOM 1 MH Xray [facility] Rad 02/16/2023 1:00 PM Jimmy Martinez MD [facility] Pain Sp [facility] Spine Attending I have seen and examined the patient and agree with the resident's findings and plan. She reports expected surgical site pain, no UE pain. L hand feels similar to pre-op. Swallowing OK. Neuro exam asabove. X-rays show appropriate position of hardware. Glucose reasonably well-controlled, appreciateendocrine input. Can be d/c'ed home later today. * Pham Cline RN - 01/18/2023 10:08 AM EST Pt arrived to PACU from OR in bed. Attached to monitors and alarms set appropriately. Anterior neckdressing CDI, HEATHER coming out of dressing with no output in bulb. Soft collar in place for comfort. Nasal airway in place on arrival. VSS. Daughter at bedside. 1245: 1x medium sized emesis, green with chunks of food. Pt reports no nausea before emesis and that she does this randomly at home. No continued nausea afterwards. Pt cleaned up and soft collar changed out. Ortho at bedside for post op check and aware of event. 1330: Pt reporting another wave of nausea, ortho paged for PRNs. BMP and EKG ordered and complete. Second emesis event. Zofran given. Pt feels relief after emesis. Ortho aware. 1400: Pt reports continued nausea, compazine ordered and given. Ortho at bedside, OK to get post op xrays this evening once nausea/emesis has passed. 1450: Report given to JAY Don. * Alberto Cuevas MD - 01/18/2023 7:50 AM EST ORTHOPAEDIC SURGERY INPATIENT POST OP NOTE Patient Name: Nallely Velazquez Age: 68 y.o. Surgery/Issue: C6-7 ACDF Attending: Dr. Martinez Date of surgery: 01/18/2023 SUBJECTIVE / INTERVAL HISTORY: Pain well controlled. Patient had two bouts of emesis in the PACU, which she said can be a regular occurrence for her at home after drinking fluids. EKG negative. Patient denies numbness/weakness, chest pain, shortness of breath, dizziness, headache, hoarseness, difficulty swallowing. Pre-op symptoms: numbness, weakness, and clumsiness in LUE, mild balance changes Pre-op symptoms currently present: numbness, weakness LUE FOCUSED REVIEW OF SYSTEMS: as above. There are no hospital problems to display for this patient. 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 current use of antithrombotics/antiplatelets Prinzmetal angina MEDICATIONS: sodium chloride 0.9 % (flush) (BD PosiFlush Normal Saline 0.9) flush 5-20 mL lidocaine (Xylocaine) 1% (10 mg/mL) injection 3 mg lactated ringers infusion ceFAZolin (Ancef) 2 g vial attach to sodium chloride 0.9% 100 mL Mini-Bag Plus glucose (Glutose) 40% oral geL OR dextrose 10% infusion OR glucagon (Glucagen) (1 mg/mL) injection solution 1 mg POCT Fingerstick Glucose AND insulin lispro (HumaLOG;Admelog) (100 unit/mL) subcutaneous injection vial 1-6 Units insulin lispro (HumaLOG;Admelog) (100 unit/mL) subcutaneous injection vial 0-6 Units lactated Ringers OBJECTIVE: Temp: [36.3 ??C (97.3 ??F)] Heart Rate: [87] Resp: [18] BP: (115)/(72) No intake or output data in the 24 hours ending 01/18/23 0750 Body mass index is 30.54 kg/m??. Drain output: 20cc sanguinous Exam: General: NAD, awake/alert, responds to questions Neck: Soft collar in place. No evidence of hematoma, dressing c/d/I. Drain in place. CV: RRR Resp: Breathing comfortably, lungs CTAB Motor: Segment Muscle Action R L C5 Deltoid Shoulder Abd 5 5 C5 Biceps Elbow flexion 5 4+ C6 ECRL, ECRB Wrist extension 5 5 C7 Triceps Elbow extension 5 5 C8 Hand Grasp 5 4 T1 Hand intrinsics Finger abd/adduction 4 4+ L2 Iliopsoas Hip flexion 5 5 L3 Quadriceps Knee extension 5 5 L4,5 Hamstring Knee Flexion 5 5 L4 Tibialis anterior Dorsiflexion 5 5 L5 Extensor hallucis Great toe extension 5 5 S1 Gastrocnemius, FHL Plantar flexion 5 5 Sensory: Sensation (light touch) (0=absent, 1=impaired, 2=normal) Segment location Right Left C4 top of AC joint 2 2 C5 lat side antecub fossa 2 1 C6 dorsal thumb 2 1 C7 dorsal middle finger 2 1 C8 dorsal small finger 2 1 T1 med side antecub fossa 2 2 T2 apex axilla 2 2 T3 3rd IS (intercostal space) 2 1 T4 nipple line 2 2 T5 5th IS 2 2 T6 6th IS 2 2 T7 7th IS 2 2 T8 8th IS 2 2 T9 9th IS 2 2 T10 10th iS 2 2 T11 11th iS 2 2 T12 mid inguinal ligament 2 2 L1 upper inner thigh 2 2 L2 mid-ant thigh 2 2 L3 med femoral condyle 2 2 L4 medial mal 2 2 L5 dorsum foot, 3rd MT 2 1 S1 lat heal 2 1 S2 Popliteal fossa 2 2 Lab Results Component Value Date NA 139 09/01/2021 K 3.9 09/01/2021 CL 104 09/01/2021 CO2 23 09/01/2021 BUN 18 09/01/2021 CREATININE 1.07 09/01/2021 GLUCOSE 427 (H) 09/06/2016 GLUCFASTING 107 (H) 09/01/2021 CALCIUM 8.7 09/01/2021 Lab Results Component Value Date WBC 16.8 (H) 09/01/2021 HGB 14.0 09/01/2021 HCT 42.5 09/01/2021 MCV 82.8 09/01/2021 PLATELET 292 09/01/2021 IMAGING: Cspine lateral shows instrumentation in place at C6-7. ASSESSMENT / PLAN: Nallely Velazquez is a 68 y.o. female Day of Surgery s/p C6-7 ACDF. Discharge pending evaluation by PT/OT on POD1. Activity: AAT no b/t/l > 5 lbs in collar DVT prophylaxis: NA Closure: Resorbable sutures Dressing: DSD x 7 days Antibiotics: Periop Ancef Alberto Cuevas MD 01/18/2023 Future Appointments Date Time Provider Department Center 02/16/2023 12:15 PM [facility] DX ROOM 1 MH Xray [facility] Rad 02/16/2023 1:00 PM Jimmy Martinez MD [facility] Pain Sp [facility] documented in this encounter H&P Notes * Jimmy Martinez MD - 01/18/2023 6:51 AM EST Preop H+P The patient's history and physical exam have been reviewed and completed. There has been no interval change from that of the pre-operative history and physical exam done within the last 30 days. General: NAD CV: RRR Pulm: CTAB Neck: Marked. 4/5 left hand intrinsics, otherwise 5/5 upper extremity motors. Sensation decreased throughout left hand. Plan to proceed to OR as scheduled for C6-7 ACDF. Insulin ordered for high blood glucose this AM. Spine Attending I have seen and examined the patient and agree with the resident's findings and plan. She cont to have numbness, weakness, and clumsiness in LUE, mild balance changes. Will proceed with C6-C7 ACDF, will give insulin for elevated glucose. She will need endocrine consult post-op. documented in this encounter Miscellaneous Notes * Initial Assessments - Angus Sanabria OT - 01/19/2023 9:00 AM EST Occupational Therapy Evaluation Patient profile: Nallely Velazquez is a 68 y.o. female admitted on 01/18/2023 for C7-[address] Martinez. Past Medical History: Diagnosis Date CAD (coronary artery disease) Cervical radiculopathy at C7 CKD (chronic kidney disease) stage 3, GFR 30-59 ml/min Diabetes mellitus GERD (gastroesophageal reflux disease) Hiatal hernia HLD (hyperlipidemia) Hypertension Past Surgical History: Procedure Laterality Date IR NEPHROSTOMY TUBE PLACEMENT PERCUTANEOUS LEFT 09/27/2018 IR Nephrostomy Tube Placement Percutaneous Left 09/27/2018 Justin De La Cruz MD [facility] INTERVENTIONL RAD PRO ANTERIOR INSTRUMENTATION 2-3 VERTEBRAL SEGMENTS Midline 01/18/2023 ANT. SPINAL INSTRUMENTATION, 2-3 VERTEBRA, SEGMENTED (WRVU 11.94) performed by Jimmy Martinez MD at [facility] MAIN OR PRO ARTHRODESIS, ANT INTERBODY,DECOMPRESSION; CERVICAL BELOW C2 Midline 01/18/2023 ARTHRODESIS, ANT INTERBODY,DECOMPRESSION; CERVICAL BELOW C2 (WRVU 25) performed by Jimmy Martinez MD at [facility] MAIN OR PRO INSERT BIOMCHN DEV INTERVERTEBRAL DSC SPC W/ARTHRD Midline 01/18/2023 INSERTION INTERBODY BIOMECH DEV TO INTERVEBRAL DISC SPACE, EA INTERSPACE (WRVU 4.25) performed by Jimmy Martienz MD at [facility] MAIN OR Social History: Patient lives with . 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 No use of AD/DME Precautions/Special Considerations: No bending, lifting >5lb, twist of cervical spine; soft collar for comfort Diet: Carb control; thin liquids Subjective: The doctor said I can just wear the soft collar Objective: Seen today for OT evaluation. Cognitive Status/Behavior: Behavior / Mood: alert and cooperative Alert and oriented to: person, place, time, and situation Follows commands: multi step Attention: WFL Safety awareness: WFL No cognitive impairment noted during gross functional assessment Vision & Perception: WNL / WFL Communication: WFL Range of motion, strength, coordination: Hand dominance: right Bilateral UEs are within functional limitations LE limitations: WFL Sensation: Numbness reported distally from R wrist Activities of Daily Living: Self-feeding: Independent Grooming: Independent Dressing: Independent Bathing: Independent Toileting: Transfer: Independent Hygiene: Independent Functional Mobility: Supine to sit: Independent Sit to stand: Independent Ambulation: Independent with no AD Stand to sit: Independent Sit to supine: Independent Balance: Sitting balance: Good Standing balance: Good Vitals: VSS throughout tx session; no s/s of hypotension Pain: None reported; did not indicate pain Skin: Soft collar donned; otherwise intact Education: patient have been educated on Role of occupational therapy/rehabilitation, Transfers, ADL, Safety, Precautions/Protocol, Functional Mobility, Home Management, Balance, Recommendations, andDischarge planning and verbalize and demonstrates understanding. Patient status, treatment, and mobility recommendations discussed with nursing. Assessment: Pt has been seen for occupational therapy evaluation. Nallely Velazquez presents with the following performance skill deficits and client factors: increased pain and precautions / bracing. However, despite the deficits listed above pt demonstrates the ability to complete self cares and all mobility independently with no AD. She has been educated on bathing and safety with cervicalincision during bathing. Anticipate that pt will return home with assistance once medically ready. Do not anticipate further OT needs while hospitalized. Equipment needs at discharge: None Anticipated Discharge Dispostion: home with daily check in Other Recommendations: Independent on unit Other Recommendations: No other consults recommended at this time. Plan: OT: Therapy Frequency (OT): evaluation only Planned OT interventions: No further OT treatment indicated at this time . Total Minutes, Occupational Therapy: 25 ([id number]) 2017 OT Evaluation Code Rationale: Diagnosis & Pertinent Co-Morbidities affecting Plan of Care: see PMHx Occupational Profile & Client History: Low Brief Expanded Extensive x Assessment of Occupational Performance: 1-3 performance deficits x 3-5 performance deficits 5 + performance deficits Clinical Decision Making: Low Moderate High x Clinical decision making of low complexity using standardized patient assessment instrument and measurable assessment of functional outcome. 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 female with PMH significant for T2DM who was admitted on 01/18/2023 currently being treated for S/p C6-7 ACDF . We are being consulted to assist with diabetes management and to provide a review of penitentiary diabetes care. Diabetes History: Nallely Velazquez has had diabetes for over 20 years. Patient reports she took only 8 unit of levemir last night. Current outpatient diabetes regimen: Diabetes Provider: previously seen by Dr. Tom Anna in Endocrine office Medications: Trulicity 3mg weekly (every Monday), U 500 15 units with breakfast and supper, and 10 units with lunch, levemir 10 units at bedtime Monitoring is done with alonzo Most recent HA1c was ordered Typical diet is: 3 meals and 1-2 snacks a day Typical exercise regimen is every day living Trouble with hypoglycemia no Current Weight 75.8 kg Diabetes Complications Status: Eyes: +h/o cataract surgery, last eye exam a week ago Kidneys: Last GFR was completed in August Sensory: +N/T in hands Autonomic: None Cardiovascular : +NSTEMI Current Hospital Diabetes Care: Medications: Lispro 1:20 carb ratio for meals Lispro moderate correction scale q 4 hrs Monitoring: q 4 hrs Diet: CHO count level 2 ROS: deferred PMH Past Medical History: Diagnosis Date CAD (coronary artery disease) Cervical radiculopathy at C7 CKD (chronic kidney disease) stage 3, GFR 30-59 ml/min Diabetes mellitus GERD (gastroesophageal reflux disease) Hiatal hernia HLD (hyperlipidemia) Hypertension Current Hospital Medications: insulin lispro 1-6 Units Subcutaneous Q4H KAN insulin lispro 0-6 Units Subcutaneous TID WC ceFAZolin 2 g Intravenous Q8H acetaminophen 975 mg Oral Q8H KAN PRN: glucose 40% oral geL OR dextrose OR glucagon, thrombin (Bovine), BUpivacaine (pf), oxyCODONE OR oxyCODONE OR oxyCODONE Allergy: Allergies Allergen Reactions Amlodipine Other Reaction(s): [...] Mother Diabetes Father Cancer Neg Hx Vitals Last value Range last 24 hrs Temperature Temp: 36.8 ??C (98.2 ??F) Temp: [35.6 ??C (96.1 ??F)-36.8 ??C (98.2 ??F)] Heart Rate Heart Rate: 70 Heart Rate: [65-87] Blood Pressure BP: 150/79 BP: (108-150)/(59-87) Respiratory Rate Resp: 12 Resp: [10-22] SpO2 SpO2: 99 % SpO2: [98 %-100 %] Physical Exam: deferred Labs: Lab Results Component Value Date BUN 18 09/01/2021 CREATININE 1.07 09/01/2021 GLUCOSE 427 (H) 09/06/2016 GLUCFASTING 107 (H) 09/01/2021 ESTGFR 57 (L) 09/01/2021 Lab Results Component Value Date HA1C 9.2 (H) 08/30/2021 No results found for: MICROALBUR Lab Results Component Value Date CHLPL 125 08/30/2021 Lab Results Component Value Date HDL 29 08/30/2021 No results found for: LDLCHOL Lab Results Component Value Date TRIG 159 08/30/2021 Lab Results Component Value Date CHOLHDL 4.3 08/30/2021 Assessment: Patient is a 68 y.o. years old female with PMH significant for DM who was admitted on 01/18/2023 for S/p C6-7 ACDF . Diabetes complicated by elevated glucose levels. Currently with variability of blood glucose levels while hospitalized requiring adjustment of insulin regimen and DM medications. Weight based considerations: Calculated TDD would be: 30 Glargine dosin Carb ratio: 16.6 Correction Scale:50 Trulicity was taken on Monday. Due to elevated glucose level when patient came into hospital and unknown A1c level. Recommend adding back home dose of levemir 10 units at bedtime (if patient has started eating, if not give 5 units). No other changes made at this time . Will continue to monitor. Plan: 1. Levemir 5-10 units at bedtime 2. Lispro custom correction scale for BG>140 3. Lispro 1unit: 20 gm carb ratio for each meal Diabetes Discharge Planning Medications - Outpatient treatment regimen recommendations pending based on the hospital course. Monitoring - continue BG 4 times daily, ac & hs Diet - low fat/low carb diet Exercise - weight-bearing exercise 30 min/day, as tolerated Thank you for allowing us to provide care for your patient Anisa Hernandez APRN [facility] Endocrinology Diabetes Management Pager [phone] minutes of this 80 minute visit was spent with the patient in counseling on diabetes and treatment plan, reviewing all glucose and insulin data as well as relevant laboratory results with the patient, and coordination of care on the inpatient unit * Brief Op Note - Jimmy Martinez MD - 01/18/2023 10:19 AM EST Brief Operative Note Patient Name: Nallely Velazquez : [id number] MR#: [id number] Case Date: 01/18/2023 Surgeon: Surgeon(s) and Role: * Jimmy Martinez MD - Primary * Dave Bal MD - Resident - Assisting Preoperative diagnosis: Cervical myelopathy Postoperative diagnosis: Cervical myelopathy Procedure: C3-C4 ACDF with anterior plate and intervertebral device ([id number], [id number], [id number]) Anesthesia: General Findings: There was a left paracentral disk herniation at C6-C7, causing compression of the left side of the spinal cord. At the conclusion of the case, the spinal cord and bilateral C7 nerve roots were fully decompressed. No CSF. Complications: None Intake: 1 L crystalloid Output: Estimated Blood Loss: 30 mL Drains: Anterior cervical x 1 Specimens removed during surgery: None Disposition: awakened from anesthesia, extubated and taken to the recovery room in a stable condition, having suffered no apparent untoward event. Condition: doing well without problems Attestation: Case Date: 01/18/2023 I was present and I participated during the entire procedure (does not need to include opening and closing). * Op Note - Jimmy Martinez MD - 01/18/2023 8:15 AM EST [facility] Operative Note Patient Name: Nallely Velazquez : [id number] MR#: [id number] Case Date: 01/18/2023 Surgeon: Surgeon(s) and Role: * Jimmy Martinez MD - Primary * Dave Bal MD - Resident - Assisting Preoperative diagnosis: Cervical myelopathy Postoperative diagnosis: Cervical myelopathy Procedure: 1. C6-C7 anterior cervical discectomy and fusion 2. Anterior cervical plating C6-C7 3. Application of intervertebral device C6-C7 Implants: Globus Atlantic plate and Medtronic Cornerstone intervertebral device Anesthesia: General Operative findings: There was a left paracentral disk herniation at C6-C7, causing compression of the left side of the spinal cord. At the conclusion of the case, the spinal cord and bilateral C7 nerve roots were fully decompressed. Indications for procedure: Ms. Selam Velazquez is a 68-year-old female who presented with approximately1 year of left hand numbness, weakness, and clumsiness in the setting of a left paracentral C6-C7 disc herniation compressing the left side of the spinal cord. She elected to undergo surgery after full discussion of the potential risks and benefits thereof. Description of procedure: The patient was taken to the operative room, and general anesthesia was administered. She was positioned supine on the operating room table with her neck in a neutral position and her arms tucked by her side. A timeout was performed to identify the patient and the planned procedure. She received preoperative antibiotics. The neck was prepped with Hibiclens and Chloraprepand draped in the usual sterile fashion. A transverse incision was made from the midline to the medial border of the left sternocleidomastoid at approximately the C6-C7 level. The electrocautery was used to dissect down to the level of the platysma, which was divided in line with the incision. The deep cervical fascia was incised, and theplane between the sternocleidomastoid laterally and the strap muscles medially was developed. Deeper dissection between the carotid sheath laterally and the trachea and esophagus medially brought us to the prevertebral fascia. This was divided and bluntly elevated off the C6 and C7 vertebrae. A distraction pin was placed in C6, and a lateral x-ray was obtained, demonstrating our level. The longus coli muscles were elevated from the C6 and C7 vertebrae. The endotracheal balloon was deflated and then reinflated to decrease pressure on the recurrent laryngeal nerve. A distraction pin was placed in C7, and distraction was applied across the interspace. An annulotomy was created, and a complete discectomy was then performed at C6-C7 using a combination of the curettes and pituitary. The posterior osteophytes were thinned with a high-speed bur. The PLL was divided in line with its fibers and taking down the Kerrison. The posterior osteophytes were removed. Foraminotomies were performed bilaterally. We did encounter soft herniated disc material predominantly on the left side compressing the spinal cord, and all this material was removed. Following discectomy, we confirmed that the spinal cord and bilateral C7 nerve roots were fully decompressed. Hemostasis was achieved in the epidural space using Floseal. We found a 6 mm lordotic trial fit appropriately. The wound was copiously irrigated. The intervertebral device was positioned within the disc space, and the distraction pins were removed. The holes were bone waxed. An appropriate sized plate was placed on the anterior aspect of the spine. Video Journalist holes were created using 12 mm drill bits.12 mm self-tapping, variable angle screws were then placed and locked to the plate using the torque-limited screwdriver. A lateral x-ray was obtained demonstrated appropriate position of the graft and hardware. Hemostasis was achieved. A drain was placed along the anterior aspect of the spine, exiting throughthe incision. The platysma and subcutaneous tissues were closed with interrupted 3-0 Vicryl. The skin was closing a 4-0 Monocryl in a running, subcuticular fashion. Incision was dressed with Mastisol, Steri-Strips, sterile gauze, and a Tegaderm. A soft collar was applied. She was transferred to thehospital bed and awakened from general anesthesia. She was taken to the recovery room in stable condition. There were no evident complications. Attestation: Case Date: 01/18/2023 I was present and I participated during the entire procedure (does not need to include opening and closing). JIMMY MARTINEZ MD 01/18/2023 documented in this encounter Plan of Treatment Upcoming Encounters Date Type Department Care Team (Late st Contact Info) Description 01/09/2024 2:20 PM EST TH Visit (TeleHealth) Hematology and Oncology at [address] Kati Burnette MD [facility] [place] [address] 01/24/2024 9:30 AM EST Appointment [place]Ray [place] [address] [place] [address] Jimmy Martinez MD [facility] [place] [place] [address] 01/24/2024 11:00 AM EST Office Visit Pain and Spine Center at [address] Regulo Wang PA [facility] [place] [address] 01/24/2024 2:45 PM EST Appointment Mammography at [place] [address] 01/24/2024 3:45 PM EST Office Visit General Surgery at [address] Caitlyn Hirsch MD [facility] [place] [address] 03/20/2024 9:00 AM EST Office Visit Hematology and Oncology at [place] [phone] Ericka Forrest, [facility] [address] [place] [address] 07/29/2024 2:00 PM EDT Office Visit Radiation Oncology at [address] [phone] Kasie Marte MD [facility] [place] [address] Scheduled Referrals Name Type Priority Associated Diagnoses Order Schedule Referral to Diabetic Education Outpatient Referral Routine S/p C6-7 ACDF 01/18/23 Martinez Type 2 diabetes mellitus with hyperglycemia, with long-term current use of insulin Ordered: 01/19/2023 Referral to Endocrinology Outpatient Referral Routine S/p C6-7 ACDF 01/18/23 Martinez Type 2 diabetes mellitus with hyperglycemia, with long-term current use of insulin Ordered: 01/19/2023 documented as of this encounter Procedures Procedure Name Priority Date/Time Associated Diagnosis Comments POCT GLUCOSE Routine 01/19/2023 12:10 PM EST POCT GLUCOSE Routine 01/19/2023 7:16 AM EST POCT GLUCOSE Routine 01/19/2023 3:58 AM EST HEMOGRAM Routine 01/19/2023 12:39 AM EST DIFFERENTIAL, AUTOMATED Routine 01/20/20 12:39 AM EST CBC (WITH DIFF) Routine 01/19/2023 12:39 AM EST BASIC METABOLIC PANEL Routine 01/19/2023 12:39 AM EST POCT GLUCOSE Routine 01/19/2023 12:28 AM EST POCT GLUCOSE Routine 01/18/2023 7:36 PM EST POCT GLUCOSE Routine 01/18/2023 5:26 PM EST XR CERVICAL SPINE 2 OR 3 VIEWS Routine 01/18/2023 5:13 PM EST EKG 12-LEAD STAT 01/18/2023 2:11 PM EST S/p C6-7 ACDF 01/18/23 Martinez BASIC METABOLIC PANEL Routine 01/18/2023 1:10 PM EST POCT GLUCOSE Routine 01/18/2023 12:26 PM EST HEMOGLOBIN A1C Routine 01/18/2023 12:20 PM EST POCT GLUCOSE Routine 01/18/2023 10:05 AM EST XR CERVICAL SPINE 1 VIEW Routine 01/18/2023 9:32 AM EST POCT GLUCOSE Routine 01/18/2023 9:14 AM EST XR CERVICAL SPINE 1 VIEW Routine 01/18/2023 8:46 AM EST MODIFIER C7 01/18/2023 7:35 AM EST Cervical myelopathy MODIFIER C6 01/18/2023 7:35 AM EST Cervical myelopathy MODIFIER CORNERSTONE 01/18/2023 7:35 AM EST Cervical myelopathy Insert Biomchn Dev Intervertebral Dsc Spc W/Arthrd ([id number]) 01/18/2023 7:35 AM EST Cervical myelopathy Anterior Instrumentation 2-3 Vertebral Segments (70233) 01/18/2023 7:35 AM EST Cervical myelopathy Arthrodesis, Ant Interbody,Decompression ; Cervical Below C2 (71029) 01/18/2023 7:35 AM EST Cervical myelopathy POCT GLUCOSE Routine 01/18/2023 6:43 AM EST ARTHRODESIS, ANT INTERBODY,DECOMPRESSION ; CERVICAL BELOW C2 Routine 01/18/2023 6:22 AM EST Cervical myelopathy INSERTION INTERBODY BIOMECH DEV TO INTERVEBRAL DISC SPACE, EA INTERSPACE Routine 01/18/2023 6:22 AM EST Cervical myelopathy ANT. SPINAL INSTRUMENTATION, 2-3 VERTEBRA, SEGMENTED Routine 01/18/2023 6:22 AM EST Cervical myelopathy IMPLANTABLE DEVICES SCAN 01/18/2023 12:00 AM EST IMPLANTABLE DEVICES SCAN 01/18/2023 12:00 AM EST documented in this encounter Results * (ABNORMAL) POCT Glucose (01/19/2023 12:10 PM EST) Glucose, POC 271(H) 65 - 199 mg/dL [facility] Comment: Supplemental ranges: <140 mg/dL before meals <180 mg/dL all other times of the day Blood 01/19/2023 12:1 0 PM EST 01/19/2023 12:10 PM EST Jimmy Martinez MD POINT OF CARE TEST O RDERAROYCE Performing Organization Address City/[facility] Co de Phone Number [facility] [place] [address] * POCT Glucose (01/19/2023 7:16 AM EST) Glucose, POC 156 65 - 199 mg/dL [facility] Comment: Supplemental ranges: <140 mg/dL before meals <180 mg/dL all other times of the day Blood 01/19/2023 7:16 AM EST 01/19/2023 7:16 AM EST Jimmy Martinez MD POINT OF CARE TEST O RDERAROYCE Performing Organization Address [facility] Co de Phone Number [facility] [place] [address] * POCT Glucose (01/19/2023 3:58 AM EST) Glucose, POC 167 65 - 199 mg/dL [facility] Comment: Supplemental ranges: <140 mg/dL before meals <180 mg/dL all other times of the day Blood 01/19/2023 3:58 AM EST 01/19/2023 3:58 AM EST Jimmy Martinez MD POINT OF CARE TEST O RDERAROYCE Performing Organization Address City/[facility]/ZIP Co de Phone Number [facility] [place] [address] * (ABNORMAL) Differential, Automated (01/19/2023 12:39 AM EST) Pathologist [facility] [place] Neutrophil % 80.4 % [facility] Neutrophil Absolute 10.67(H) 1.70 - 6.10 x10(3)/ L [facility] Lymph % 12.1 % [facility] Lymphocytes Abs 1.6 0.9 - 3.2 x10(3)/[facility] Monocyte % 4.3 % [facility] Monocyte Abs 0.6 0.3 - 0.9 x10(3)/[facility] Eos % 2.4 % [facility] Eosinophils Abs 0.3 0.0 - 0.4 x10(3)/[facility] Basophil % 0.4 % [facility] Baso Absolute 0.0 0.0 - 0.1 x10(3)/[facility] Immature Gran % 0.40 % [facility] Comment: Immature granulocytes(IG's)percentage and absolute count will include metamyelocytes, myelocytes, and promyelocytes. Blood smears from CBCs yielding IG's will be scanned manually for concordance. If this scan disagrees with the automated IG or if promyelocytes are noted, a manual differential will be performed. Immature Gran Absolute 0.05(H) 0.00 - 0.04 x10(3)/ L [facility] Blood 01/19/2023 12:3 9 AM EST 01/19/2023 12:53 AM EST Narrative Resulting Agency Comment Spec In Lab Dave Bal MD HEMATOLOGY ORDER MIRTA [facility] [place] [address] * (ABNORMAL) Hemogram (01/19/2023 12:39 AM EST) Pathologist [facility] [place] White Blood Cell 13.3(H) 4.0 - 9.5 x10(3)/mc L [facility] Red Blood Cell 4.37 4.00 - 5.21 x10(6)/[facility] Hemoglobin 12.7 11.7 - 15.5 g/dL [facility] Hematocrit 37.3 35.7 - 45.8 % [facility] Mean Cell Volume 85.4 82.6 - 94.4 fL [facility] Mean Cell Hemoglobin 29.1 27.1 - 32.0 [address] [facility] Mean Cell Hemoglobin Concentration 34.0 31.7 - 35.0 g/dL [facility] Platelet 265 145 - 357 x10(3)/mc L [facility] RDW Standard Deviation 39.2 37.0 - 46.0 fL [facility] RDW coefficient of variation 12.6 11.5 - 14.1 % [facility] Mean Platelet Volume 11.0 7.6 - 12.9 fL [facility] NRBC% auto 0.0 % [facility] NRBC Absolute 0.000 0.000 - 0.000 x10(3)/mc L [facility] Blood 01/19/2023 12:3 9 AM EST 01/19/2023 12:53 AM EST Narrative Resulting Agency Comment Spec In Lab Dave Bal MD HEMATOLOGY ORDER MIRTA [facility] [place] [address] * Basic Metabolic Panel (non-fasting) (01/19/2023 12:39 AM EST) Glucose 172 65 - 199 mg/dL [facility] Comment:Diabetes: >=200 mg/d L plus symptoms Blood Urea Nitrogen 15 8 - 18 mg/dL [facility] Creatinine 1.01 0.70 - 1.20 mg/dL [facility] Sodium 138 135 - 145 mmol/L [facility] Potassium 4.1 3.5 - 5.0 mmol/L [facility] Comment: Please note: ??Patients with WBC >100,000 may have falsely elevated Potassium levels. ??For accurate Potassium quantification in these patients send serum separator tube (gold top) for subsequent determinations. ??Contact the Clinical Chemistry Laboratory if there are any questions. Chloride 107 98 - 107 mmol/L [facility] Carbon Dioxide 22 22 - 31 mmol/L [facility] Anion Gap 9 5 - 15 mmol/L [facility] Calcium 8.5 8.5 - 10.5 mg/dL [facility] Est Glomerular Filtration Rate 60 >=60 mL/min/1. 73 m?? [facility] Comment: This patient's estimated [...] and symptoms in addition to eGFR. Blood 01/19/2023 12:3 9 AM EST 01/19/2023 12:53 AM EST Narrative Resulting Agency Comment Spec In Lab Jimmy Martinez MD CHEMISTRY ORDERABLES Performing Organization Address [facility] Co de Phone Number [facility] [place] [address] * (ABNORMAL) POCT Glucose (01/19/2023 12:28 AM EST) Glucose, POC 200(H) 65 - 199 mg/dL [facility] Comment: Supplemental ranges: <140 mg/dL before meals <180 mg/dL all other times of the day Blood 01/19/2023 12:2 8 AM EST 01/19/2023 12:28 AM EST Jimmy Martinez MD POINT OF CARE TEST O RDERABLES Performing Organization Address [facility] Co de Phone Number [facility] [place] [address] * POCT Glucose (01/18/2023 7:36 PM EST) Glucose, POC 174 65 - 199 mg/dL [facility] Comment: Supplemental ranges: <140 mg/dL before meals <180 mg/dL all other times of the day Blood 01/18/2023 7:36 PM EST 01/18/2023 7:36 PM EST Jimmy Martinez MD POINT OF CARE TEST O RDERABLES Performing Organization Address City/[facility]/ZIP Co de Phone Number [facility] [place] [address] * POCT Glucose (01/18/2023 5:26 PM EST) Glucose, POC 170 65 - 199 mg/dL [facility] Comment: Supplemental ranges: <140 mg/dL before meals <180 mg/dL all other times of the day Blood 01/18/2023 5:26 PM EST 01/18/2023 5:26 PM EST Jimmy Martinez MD POINT OF CARE TEST O SHERINERAROYCE Performing Organization Address [facility] Co de Phone Number [facility] [place] [address] * XR Cervical Spine 2 or 3 Views (01/18/2023 5:13 PM EST) Anatomical Region Laterality Modality C-spine N/A Digital Radiogra phy Impressions 01/19/2023 11:23 AM EST Status post anterior cervical disc fusion C6-7 without radiographic finding of complication or acute abnormality, noting alignment evaluation is obscured by the shoulders on the lateral projection. Thank you for letting us participate in the care of this patient. ??If you are a health care provider and have any questions regarding this report, please contact the number below. ??For patients who have questions please contact the health career manager that requested your imaging first. ? Narrative 01/19/2023 11:23 AM EST EXAMINATION: XR CERVICAL SPINE 2 OR 3 VIEWS CLINICAL HISTORY: S/p C6-7 ACDF TECHNIQUE: AP and lateral seated upright views of the cervical spine COMPARISON: Radiographs December 27 and January 18, 2023; MRI December 27, 2022 FINDINGS: The lateral view images through the upper half of C6 vertebral body. Vertebral body height is preserved. No fracture. Anterior cervical disc fusion C6-7 with anterior plate and screws has intact hardware without adjacent lucency. Evaluation of lower vertebral body alignment is obscured by the shoulder girdles. Unchanged, bilateral facet joint osteophytes. Spacing and alignment are otherwise preserved at the intervertebral disks and facet joints. Surgical drain tubing at the anterior left neck is intact. The patient is edentulous. Soft tissue prominence in the prevertebral soft tissues is consistent with the recent surgery. Carotid and aortic arch atherosclerosis. Survey of skull base and thoracic inlet is otherwise normal. Procedure Note Kelle Tello MD - 01/19/2023 EXAMINATION: XR CERVICAL SPINE 2 OR 3 VIEWS CLINICAL HISTORY: S/p C6-7 ACDF TECHNIQUE: AP and lateral seated upright views of the cervical spine COMPARISON: Radiographs December 27 and January 18, 2023; MRI December 27, 2022 FINDINGS: The lateral view images through the upper half of C6 vertebral body.Vertebral body height is preserved. No fracture. Anterior cervical disc fusion C6-7 with anterior plate and screws hasintact hardware without adjacent lucency. Evaluation of lower vertebral bodyalignment is obscured by the shoulder girdles. Unchanged, bilateral facet joint osteophytes. Spacing and alignment are otherwise preserved at theintervertebral disks and facet joints. Surgical drain tubing at the anterior left neckis intact. The patient is edentulous. Soft tissue prominence in the prevertebralsoft tissues is consistent with the recent surgery. Carotid and aortic arch atherosclerosis. Survey of skull base and thoracic inlet is otherwisenormal. IMPRESSION Status post anterior cervical disc fusion C6-7 without radiographicfinding of complication or acute abnormality, noting alignment evaluation is obscuredby the shoulders on the lateral projection. Thank you for letting us participate in the care of this patient. If youare a health care provider and have any questions regarding this report,please contact the number below. For patients who have questions please contactthe health career manager that requested your imaging first. Jimmy Martinez MD IMG DX ORDERABLES * EKG 12 Lead (01/18/2023 2:11 PM EST) Ventricular rate 70 BPM MUSE SYSTEM Atrial Rate 70 BPM MUSE SYSTEM P-R Interval 186 ms MUSE SYSTEM QRS Duration 78 ms MUSE SYSTEM Q-T Interval 372 ms MUSE SYSTEM QTC Calculated (Bezet) 401 ms MUSE SYSTEM Calculated P [place] 66 degrees MUSE SYSTEM Calculated R [place] 30 degrees MUSE SYSTEM Calculated T [place] 32 degrees MUSE SYSTEM INTERPRETATION Normal sinus rhythm Low voltage QRS Borderline ECG When compared with ECG of 01-SEP-2021 06:06, Nonspecific T wave abnormality no longer evident in Anterolateral leads Confirmed by MD Elizabeth, Stalin ([id number]) on 01/19/2023 7:48:18 AM MUSE SYSTEM 01/18/2023 2:11 PM EST 01/19/2023 7:48 AM EST Jimmy Martinez MD ECG ORDERABLES MUSE SYSTEM * (ABNORMAL) Basic Metabolic Panel (non-fasting) (01/18/2023 1:10 PM EST) Glucose 169 65 - 199 mg/dL [facility] Comment:Diabetes: >=200 mg/d L plus symptoms Blood Urea Nitrogen 18 8 - 18 mg/dL [facility] Creatinine 1.00 0.70 - 1.20 mg/dL [facility] Sodium 135 135 - 145 mmol/L [facility] Potassium Not Perf 3.5 - 5.0 [facility] Comment: Unable to quantitate due to sample hemolysis. ??Sample redraw suggested. Called by: yeny, Read back by: virginie page, Date/Time:01/18/23 14:26. Please note: ??Patients with WBC >100,000 may have falsely elevated Potassium levels. ??For accurate Potassium quantification in these patients send serum separator tube (gold top) for subsequent determinations. ??Contact the Clinical Chemistry Laboratory if there are any questions. Chloride 103 98 - 107 mmol/L [facility] Carbon Dioxide 24 22 - 31 mmol/L [facility] Anion Gap 8 5 - 15 mmol/L [facility] Calcium 8.4(L) 8.5 - 10.5 mg/dL [facility] Est Glomerular Filtration Rate 61 >=60 mL/min/1. 73 m?? [facility] Comment: This patient's estimated [...] and symptoms in addition to eGFR. Blood 01/18/2023 1:10 PM EST 01/18/2023 1:23 PM EST Narrative Resulting Agency Comment Spec In Lab Jimmy Martinez MD CHEMISTRY ORDERABLES Performing Organization Address City/[facility]/ZIP Co de Phone Number [facility] [place] [address] * POCT Glucose (01/18/2023 12:26 PM EST) Glucose, POC 159 65 - 199 mg/dL [facility] Comment: Supplemental ranges: <140 mg/dL before meals <180 mg/dL all other times of the day Blood 01/18/2023 12:2 6 PM EST 01/18/2023 12:26 PM EST Jimmy Martinez MD POINT OF CARE TEST O RDERABLES Performing Organization Address City/[facility]/ZIP Co de Phone Number [facility] [place] [address] * (ABNORMAL) Hemoglobin A1c (01/18/2023 12:20 PM EST) Hemoglobin A1c 9.6(H) 4.3 - 5.6 % [facility] Comment: Reference Range: 4.3 - 5.6% [...] Mellitus, Diabetes Care 2013; 36: Suppl. 1, S66-65 Estimated Average Glucose 229 mg/dL [facility] Comment: Note: The eAG calculation has not been proven valid for women, individuals below 18 years old or above 70 years old, or individuals with hemoglobinopathies. Estimated average glucose (eAG) is calculated from the equation described in: Colin CRAWFORD, Issac J, Libby R, et al. ??Translating the A1C assay into estimated average glucose values. ??Diabetes Care 2008:31(8):4662-3217. Additional resources are available on the ADA website (diabetes.org). Blood 01/18/2023 12:2 0 PM EST 01/18/2023 12:40 PM EST Narrative Resulting Agency Comment Spec In Lab Anisa Hernandez [employer]ACHINIST CHEMISTRY ORDERABLE S Performing Organization Address City/[facility]/ZIP Co de Phone Number [facility] [place] [address] * (ABNORMAL) POCT Glucose (01/18/2023 10:05 AM EST) Glucose, POC 209(H) 65 - 199 mg/dL [facility] Comment: Supplemental ranges: <140 mg/dL before meals <180 mg/dL all other times of the day Blood 01/18/2023 10:0 5 AM EST 01/18/2023 10:05 AM EST Jimmy Martinez MD POINT OF CARE TEST O RDERABLES Performing Organization Address City/[facility]/ZIP Co de Phone Number [facility] [place] [address] * XR Cervical Spine 1 View (01/18/2023 9:32 AM EST) Anatomical Region Laterality Modality C-spine N/A Digital Radiogra phy Impressions 01/18/2023 2:41 PM EST ACDF C6-C7 changes Thank you for letting us participate in the care of this patient. ??If you are a health care provider and have any questions regarding this report, please contact the number below. ??For patients who have questions please contact the health career manager that requested your imaging first. ? Electronically signed by: Abimael Woodard MD, [facility] ([phone]), at 01/18/2023 2:41 PM Narrative 01/18/2023 2:41 PM EST EXAMINATION: XR CERVICAL SPINE 1 VIEW CLINICAL HISTORY: intraoperative level confirmation TECHNIQUE: 1 views of the cervical spine COMPARISON: C-spine radiograph the same day. FINDINGS: Endotracheal tube, and esophageal temperature probe are noted. Interval changes compatible with ACDF of C6-C7, with C6-C7 intervertebral disc spacer. Prevertebral soft tissue swelling tissue defect along the anterior neck are expected findings in the perioperative period. Procedure Note Abimael Woodard MD - 01/18/2023 EXAMINATION: XR CERVICAL SPINE 1 VIEW CLINICAL HISTORY: intraoperative level confirmation TECHNIQUE: 1 views of the cervical spine COMPARISON: C-spine radiograph the same day. FINDINGS: Endotracheal tube, and esophageal temperature probe are noted. Interval changes compatible with ACDF of C6-C7, with C6-C7 intervertebraldisc spacer. Prevertebral soft tissue swelling tissue defect along the anterior neckare expected findings in the perioperative period. IMPRESSION ACDF C6-C7 changes Thank you for letting us participate in the care of this patient. If youare a health care provider and have any questions regarding this report,please contact the number below. For patients who have questions please contactthe health career manager that requested your imaging first. Electronically signed by: Abimael Woodard MD, [facility]([phone]), at 01/18/2023 2:41 PM Jimmy Martinez MD IMG DX ORDERABLES * POCT Glucose (01/18/2023 9:14 AM EST) Glucose, POC 192 65 - 199 mg/dL [facility] Comment: Supplemental ranges: <140 mg/dL before meals <180 mg/dL all other times of the day Blood 01/18/2023 9:14 AM EST 01/18/2023 9:14 AM EST Jimmy Martinez MD POINT OF CARE TEST O RDERABLES Performing Organization Address City/State/[facility] Co de Phone Number [facility] [place] [address] * XR Cervical Spine 1 View (01/18/2023 8:46 AM EST) Anatomical Region Laterality Modality C-spine N/A Digital Radiogra phy Impressions 01/18/2023 12:22 PM EST Metallic device projecting over the C6 vertebra. Thank you for letting us participate in the care of this patient. ??If you are a health care provider and have any questions regarding this report, please contact the number below. ??For patients who have questions please contact the health career manager that requested your imaging first. ? Electronically signed by: Abimael Woodard MD, [facility] ([phone]), at 01/18/2023 12:22 PM Narrative 01/18/2023 12:22 PM EST EXAMINATION: XR CERVICAL SPINE 1 VIEW CLINICAL HISTORY: intraoperative level confirmation TECHNIQUE: 1 views of the cervical spine COMPARISON: None FINDINGS: Limited radiograph obtained ??for intraoperative level confirmation. Endotracheal tube, and esophageal temperature probe are noted. There is a horizontally oriented metallic device projecting over the prevertebral soft tissues, and C6 vertebra. Procedure Note Abimael Woodard MD - 01/18/2023 EXAMINATION: XR CERVICAL SPINE 1 VIEW CLINICAL HISTORY: intraoperative level confirmation TECHNIQUE: 1 views of the cervical spine COMPARISON: None FINDINGS: Limited radiograph obtained for intraoperative level confirmation.Endotracheal tube, and esophageal temperature probe are noted. There is a horizontally oriented metallic device projecting over the prevertebral soft tissues, and C6 vertebra. IMPRESSION Metallic device projecting over the C6 vertebra. Thank you for letting us participate in the care of this patient. If youare a health care provider and have any questions regarding this report,please contact the number below. For patients who have questions please contactthe health career manager that requested your imaging first. Electronically signed by: Abimael Woodard MD, [facility]([phone]), at 01/18/2023 12:22 PM Jimmy Martinez MD IMG DX ORDERABLES * (ABNORMAL) POCT Glucose (01/18/2023 6:43 AM EST) [facility] Signature Glucose, POC 304(H) 65 - 199 mg/dL [facility] Comment: Supplemental ranges: <140 mg/dL before meals <180 mg/dL all other times of the day Blood 01/18/2023 6:43 AM EST 01/18/2023 6:43 AM EST Jimmy Martinez MD POINT OF CARE TEST O RDERABLES [facility] [place] [address] * SCAN DOC: IMPLANTABLE DEVICES (01/18/2023 12:00 AM EST) Narrative 01/18/2023 12:00 AM EST Ordered by an unspecified provider. Scanning Provider MEDIA MGR SCAN EXT O RDR/RSLT * SCAN DOC: IMPLANTABLE DEVICES (01/18/2023 12:00 AM EST) Narrative 01/18/2023 12:00 AM EST Ordered by an unspecified provider. Scanning Provider MEDIA MGR SCAN EXT O RDR/RSLT documented in this encounter Visit Diagnoses Diagnosis S/p C6-7 ACDF 01/18/23 Martinez- Primary Arthrodesis status Cervical myelopathy Cervical spondylosis with myelopathy S/p C6-7 ACDF 01/18/23 Martinez Arthrodesis status Type 2 diabetes mellitus with hyperglycemia, with long-term current use of insulin documented in this encounter Admitting Diagnoses Diagnosis S/P cervical spinal fusion Arthrodesis status documented in this encounter Administered Medications Inactive Administered Medications - up to 3 most recent administrations Medication Order MAR Action Action Date Dose Rate Site acetaminophen (Tylenol) tablet 975 mg 975 mg, Oral, ONCE, 1 dose, On Mon01/18/23 at 0700, Administer with a SIP of water only. Maximum dose of acetaminophen is 4,000 mg from all sources in 24 hours., Day of Surgery (Day of Procedure), Routine Given 01/18/2023 6:49 AM EST 975 mg acetaminophen (Tylenol) tablet 975 mg 975 mg, Oral, EVERY 8 HOURS SCHEDULED, First dose on Mon01/18/23 at 1400, Until Discontinued, Maximum dose of acetaminophen is 4,000 mg from all sources in 24 hours. When ordered for pain, acetaminophen should be given even when other ordered pain medications are indicated., Routine Given 01/18/2023 9:25 PM EST 975 mg atorvastatin (Lipitor) tablet 80 mg 80 mg, Oral, NIGHTLY, First dose on Mon01/18/23 at 2100, Until Discontinued, Routine Given 01/18/2023 8:37 PM EST 80 mg ceFAZolin (Ancef) 2 g vial attach to sodium chloride 0.9% 100 mL Mini-Bag Plus 2 g, Intravenous, EVERY 8 HOURS, 3 doses, First dose on Mon01/18/23 at 1200, Last dose on Mon01/19/23 at 0400, Administer over 30 Minutes, Adjust to 4 hours from intraoperative dose. * Beta-lactam based antibiotics (eg. Ampicillin, ceFAZolin, Aztreonam) should be administered within 4 hours of the preceding intraoperative dose. * Vancomycin, Fluoroquinolones, Clindamycin, Gentamicin, and metroNIDAZOLE should be administered within 8 hours of the preceding intraoperative dose., Recovery (Recovery-Hospital Unit), Indication for (Active or Suspected): Prophylaxis New Bag 01/19/2023 3:59 AM EST 2 g 200 mL/ hr New Bag 01/18/2023 8:40 PM EST 2 g 200 mL/hr New Bag 01/18/2023 12:47 PM EST 2 g 200 mL/hr dextrose 10% infusion 250 mL, at 1,000 mL/hr, Intravenous, EVERY 15 MIN PRN, Starting on Mon01/18/23 at 0652, Until Chiquis 01/19/23 at 1611, For BG 50-70 mg/dL: Oral treatment preferred: If able to drink, give 120 mL juice or regular (not diet) soda OR if NPO, give 15 gram glucose 40% oral gel massaged into buccal mucosa OR if unconscious or uncooperative, give 25 gram (250 mL) dextrose 10% IV over 15 minutes per protocol OR, if no IV access, 1 mg glucagon IM. For BG less than 50 mg/dL: Oral treatment preferred: If able to drink, give 240 mL juice or regular (not diet) soda OR if NPO, give 30 gram glucose 40% oral gel massaged in buccal mucosa OR if unconscious or uncooperative, give 25 gram (250 mL) dextrose 10% IV over 15 minutes per protocol OR, if no IV access, 1 mg glucagon IM. Recheck BG in 15 minutes. May repeat juice/soda, gel, dextrose or glucagon once per episode. Notify provider if hypoglycemia does not resolve after two treatments. Providers should consider the following: administering longer-acting treatments for the duration of active insulin or hypoglycemia agent for persistent hypoglycemia and re-evaluating active insulin orders before administering the next dose. glucagon (Glucagen) (1 mg/mL) injection solution 1 mg 1 mg, Intramuscular, EVERY 15 MIN PRN, Starting on Mon01/18/23 at 0652, Until Chiquis 01/19/23 at 1611, Low blood sugar, For BG 50-70 mg/dL: Oral treatment preferred: If able to drink, give 120 mL juice or regular (not diet) soda OR if NPO, give 15 gram glucose 40% oral gel massaged into buccal mucosa OR if unconscious or uncooperative, give 25 gram (250 mL) dextrose 10% IV over 15 minutes per protocol OR, if no IV access, 1 mg glucagon IM. For BG less than 50 mg/dL: Oral treatment preferred: If able to drink, give 240 mL juice or regular (not diet) soda OR if NPO, give 30 gram glucose 40% oral gel massaged in buccal mucosa OR if unconscious or uncooperative, give 25 gram (250 mL) dextrose 10% IV over 15 minutes per protocol OR, if no IV access, 1 mg glucagon IM. Recheck BG in 15 minutes. May repeat juice/soda, gel, dextrose or glucagon once per episode. Notify provider if hypoglycemia does not resolve after two treatments. Providers should consider the following: administering longer-acting treatments for the duration of active insulin or hypoglycemia agent for persistent hypoglycemia and re-evaluating active insulin orders before administering the next dose. , Routine glucose (Glutose) 40% oral geL 15-30 g of glucose, Buccal, EVERY 15 MIN PRN, Starting on Mon01/18/23 at 0652, Until Chiquis 01/19/23 at 1611, Low blood sugar, For BG 50-70 mg/dL: Oral treatment preferred: If able to drink, give 120 mL juice or regular (not diet) soda OR if NPO, give 15 gram glucose 40% oral gel massaged into buccal mucosa OR if unconscious or uncooperative, give 25 gram (250 mL) dextrose 10% IV over 15 minutes per protocol OR, if no IV access, 1 mg glucagon IM. For BG less than 50 mg/dL: Oral treatment preferred: If able to drink, give 240 mL juice or regular (not diet) soda OR if NPO, give 30 gram glucose 40% oral gel massaged in buccal mucosa OR if unconscious or uncooperative, give 25 gram (250 mL) dextrose 10% IV over 15 minutes per protocol OR, if no IV access, 1 mg glucagon IM. Recheck BG in 15 minutes. May repeat juice/soda, gel, dextrose or glucagon once per episode. Notify provider if hypoglycemia does not resolve after two treatments. Providers should consider the following: administering longer-acting treatments for the duration of active insulin or hypoglycemia agent for persistent hypoglycemia and re-evaluating active insulin orders before administering the next dose. 1 tube of Glutose-15 contains 15 grams of glucose (net weight of tube = 37.5 grams.), Routine insulin detemir (Levemir) (100 unit/mL) subcutaneous injection vial 5-10 Units 5-10 Units, Subcutaneous, NIGHTLY, First dose on Mon01/18/23 at 2100, Until Discontinued, If patient has not eaten yet or NPO, give 5 units. If patient eating, give 10 units. Given 01/18/2023 8:39 PM EST 10 Units insulin lispro (HumaLOG;Admelog) (100 unit/mL) subcutaneous injection vial 0-6 Units 0-6 Units, Subcutaneous, 3 TIMES DAILY WITH MEALS, First dose on Mon01/18/23 at 0800, Until Discontinued, [employer] Give 1 unit for every 20 grams carbohydrate. Hold if not eating or if BG less than 70 mg/dL., Routine Given 01/19/2023 12:59 PM EST 2 Units Given 01/19/2023 7:59 AM EST 1 Units insulin lispro (HumaLOG;Admelog) (100 unit/mL) subcutaneous injection vial 1-6 Units 1-6 Units, Subcutaneous, EVERY 4 HOURS SCHEDULED, First dose on Mon01/18/23 at 0800, Until Discontinued, CORRECTION BOLUS [1-6 Units] Moderate Sliding Scale (BG in mg/dL): Correction factor 20 (1 unit of insulin is expected to drop the glucose 20 mg/dL) BG 140 - 160 Give 1 unit BG 161 - 180 Give 2 units BG 181 - 200 Give 3 units BG 201 - 220 Give 4 units BG 221 - 240 Give 5 units BG greater than 240, give 6 units and recheck BG in 2 hours. - If recheck BG is LESS than 240, give no insulin and resume schedule. - If recheck BG is GREATER than or EQUAL to 240, give 6 units and repeat BG in 2 hours (no more than 3 times) & call for new insulin orders. DO NOT hold if NPO, unless specifically directed to do so by written order. ?? Per Inpatient Subcutaneous Insulin Policy, recheck a BG of greater than 240 mg/dL in 2 hours., Routine Given 01/19/2023 1:00 PM EST 6 Units Given 01/19/2023 7:58 AM EST 1 Units Given 01/19/2023 4:00 AM EST 2 Units losartan (Cozaar) tablet 100 mg 100 mg, Oral, DAILY, First dose on Mon01/18/23 at 1700, Until Discontinued, Hold for SBP < 120, Routine Given 01/18/2023 5:47 PM EST 100 mg metoprolol succinate XL (Toprol-XL) tablet 50 mg 50 mg, Oral, DAILY, First dose on Mon01/18/23 at 1700, Until Discontinued, DO NOT CRUSH OR OPEN, Routine Given 01/19/2023 8:01 AM EST 50 mg Given 01/18/2023 5:47 PM EST 50 mg ondansetron (pf) (Zofran) (2 mg/mL) injection 4 mg 4 mg, Intravenous, EVERY 8 HOURS PRN, Starting on Mon01/18/23 at 1331, Until Chiquis 01/19/23 at 1611, Nausea, If multiple antiemetics are ordered, use ondansetron first, prochlorperazine second, metoclopramide third. Given 01/18/2023 1:35 PM EST 4 mg oxyCODONE (Roxicodone) tablet 10 mg 10 mg, Oral, EVERY 4 HOURS PRN, Starting on Mon01/18/23 at 1013, Until Chiquis 01/19/23 at 1611, Pain, moderate pain (4-6), For moderate pain (4-6). Do not exceed 15 mg in 4 hours. If pain not relieved, call provider., Routine oxyCODONE (Roxicodone) tablet 15 mg 15 mg, Oral, EVERY 4 HOURS PRN, Starting on Mon01/18/23 at 1013, Until Chiquis 01/19/23 at 1611, Pain, severe pain (7-10), For severe pain (7-10). Do not exceed 15 mg in 4 hours. If pain not relieved, call provider., Routine oxyCODONE (Roxicodone) tablet 5 mg 5 mg, Oral, EVERY 4 HOURS PRN, Starting on Mon01/18/23 at 1013, Until Chiquis 01/19/23 at 1611, Pain, mild pain (1-3), For mild pain (1-3). Do not exceed 15 mg in 4 hours. If pain not relieved, call provider., Routine Given 01/18/2023 11:55 AM EST 5 mg pantoprazole EC (Protonix) tablet 40 mg 40 mg, Oral, DAILY, First dose (after last reorder) on Mon01/18/23 at 1700, Until Discontinued, DO NOT CRUSH OR OPEN Therapeutic interchange for pantoprazole 20 mg Given 01/19/2023 8:01 AM EST 40 mg Given 01/18/2023 5:47 PM EST 40 mg prochlorperazine (Compazine) (5 mg/mL) injection 5 mg 5 mg, Intravenous, EVERY 6 HOURS PRN, Starting on Mon01/18/23 at 1358, Until Chiquis 01/19/23 at 1611, Nausea, Routine Given 01/18/2023 2:01 PM EST 5 mg sodium chloride 0.9 % (flush) (BD PosiFlush Normal Saline 0.9) flush 5 mL 5 mL, Intravenous, 2 TIMES DAILY, First dose on Mon01/18/23 at 2100, Until Discontinued, Routine Given 01/19/2023 8:01 AM EST 5 mLs Given 01/18/2023 8:37 PM EST 5 mLs sodium chloride 0.9% infusion 1,000 mL, at 100 mL/hr, Intravenous, CONTINUOUS, Starting on Mon01/18/23 at 1030, Until Chiquis 01/19/23 at 1611 New Bag 01/18/2023 10:29 AM EST 1,000 mLs 100 mL/hr documented in this encounter Active and Recently Administered Medications Times are shown in EST. Scheduled Medication Order 01/17/2023 01/18/2023 01/19/2023 acetaminophen (Tylenol) tablet 975 mg (COMPLETED) 975 mg, Oral, ONCE, 1 dose, On Mon01/18/23 at 0700, Administer with a SIP of water only. Maximum dose of acetaminophen is 4,000 mg from all sources in 24 hours., Day of Surgery (Day of Procedure), Routine 0649 (Given - Provider: Criss Hernandez RN) acetaminophen (Tylenol) tablet 975 mg 975 mg, Oral, EVERY 8 HOURS SCHEDULED, First dose on Mon01/18/23 at 1400, Until Discontinued, Maximum dose of acetaminophen is 4,000 mg from all sources in 24 hours. When ordered for pain, acetaminophen should be given even when other ordered pain medications are indicated., Routine 1400 (Not Given - Provider: Pham Cline RN - Reason: See comment - Comment: frequent emesis)2124 (Given - Provider: Morenita Perales RN) 0600 (Not Given - Provider: Morenita Perales RN - Reason: Patient/family refused)1400 (Due) atorvastatin (Lipitor) tablet 80 mg 80 mg, Oral, NIGHTLY, First dose on Mon01/18/23 at 2100, Until Discontinued, Routine 2036 (Given - Provider: Morenita Perales RN) ceFAZolin (Ancef) 2 g vial attach to sodium chloride 0.9% 100 mL Mini-Bag Plus (COMPLETED) 2 g, Intravenous, EVERY 4 HOURS, 1 dose, First dose on Mon01/18/23 at 0700, Administer over 30 Minutes, Redose after 4 hours., Day of Surgery (Day of Procedure), Indication for (Active or Suspected): Prophylaxis 08 (New Bag - Provider: Wade Walsh MD) ceFAZolin (Ancef) 2 g vial attach to sodium chloride 0.9% 100 mL Mini-Bag Plus (COMPLETED) 2 g, Intravenous, EVERY 8 HOURS, 3 doses, First dose on Mon01/18/23 at 1200, Last dose on Mon01/19/23 at 0400, Administer over 30 Minutes, Adjust to 4 hours from intraoperative dose. * Beta-lactam based antibiotics (eg. Ampicillin, ceFAZolin, Aztreonam) should be administered within 4 hours of the preceding intraoperative dose. * Vancomycin, Fluoroquinolones, Clindamycin, Gentamicin, and metroNIDAZOLE should be administered within 8 hours of the preceding intraoperative dose., Recovery (Recovery-Hospital Unit), Indication for (Active or Suspected): Prophylaxis 1247 (New Bag - Provider: Pham Cline RN)1317 (Stopped - Provider: Pham Cline RN)2039 (New Bag - Provider: Morenita Perales RN)211 (Stopped - Provider: Morenita Perales RN) 035 (New Bag - Provider: Dilcia Perez LPN)0429 (Stopped - Provider: Morenita Perales RN) insulin detemir (Levemir) (100 unit/mL) subcutaneous injection vial 5-10 Units 5-10 Units, Subcutaneous, NIGHTLY, First dose on Mon01/18/23 at 2100, Until Discontinued, If patient has not eaten yet or NPO, give 5 units. If patient eating, give 10 units. 2038 (Given - Provider: Morenita Perales, JAY) insulin lispro (HumaLOG;Admelog) (100 unit/mL) subcutaneous injection vial 0-6 Units 0-6 Units, Subcutaneous, 3 TIMES DAILY WITH MEALS, First dose on Mon01/18/23 at 0800, Until Discontinued, [employer] Give 1 unit for every 20 grams carbohydrate. Hold if not eating or if BG less than 70 mg/dL., Routine 0800 (Not Given - Provider: Pham Cline RN - Reason: See comment - Comment: NPO for surgery this AM)1400 (Not Given - Provider: Pham Cline RN - Reason: See comment - Comment: Not eating at this time, frequent emesis)1755 (Not Given - Provider: Bela Gibbs RN - Reason: Patient/family refused) 0759 (Given - Provider: Yuli Payne LPN)1259 (Given - Provider: Celia Harvey RN) insulin lispro (HumaLOG;Admelog) (100 unit/mL) subcutaneous injection vial 1-6 Units(Linked Group 1) 1-6 Units, Subcutaneous, EVERY 4 HOURS SCHEDULED, First dose on Mon01/18/23 at 0800, Until Discontinued, CORRECTION BOLUS [1-6 Units] Moderate Sliding Scale (BG in mg/dL): Correction factor 20 (1 unit of insulin is expected to drop the glucose 20 mg/dL) BG 140 - 160 Give 1 unit BG 161 - 180 Give 2 units BG 181 - 200 Give 3 units BG 201 - 220 Give 4 units BG 221 - 240 Give 5 units BG greater than 240, give 6 units and recheck BG in 2 hours. - If recheck BG is LESS than 240, give no insulin and resume schedule. - If recheck BG is GREATER than or EQUAL to 240, give 6 units and repeat BG in 2 hours (no more than 3 times) & call for new insulin orders. DO NOT hold if NPO, unless specifically directed to do so by written order. ?? Per Inpatient Subcutaneous Insulin Policy, recheck a BG of greater than 240 mg/dL in 2 hours., Routine 0800 (Given - Provider: Criss Hernandez RN)1250 (Given - Provider: Pham Cline RN)1737 (Given - Provider: Darby Cochran RN)203 (Given - Provider: Morenita Perales RN) 0029 (Given - Provider: Morenita Perales RN)0400 (Given - Provider: Dilcia Perez LPN)0758 (Given - Provider: Yuli Payne LPN)1300 (Given - Provider: Celia Harvey RN) ipratropium-albuteroL (Duoneb) 0.5 mg-3 mg(2.5 mg base)/3 mL nebulizer solution 3 mL 3 mL, Nebulization, EVERY 4 HOURS, First dose on Mon01/18/23 at 1700, Until Discontinued, Routine 1700 (Not Given - Provider: Darby Cochran RN - Reason: Patient/family refused)203 (Not Given - Provider: Morenita Perales RN - Reason: Patient/family refused) 0100 (Not Given - Provider: Morenita Perales RN - Reason: Patient/family refused)0500 (Not Given - Provider: Morenita Perales RN - Reason: Patient/family refused)0900 (Not Given - Provider: Yuli Payne LPN - Reason: Patient/family refused)1300 (Not Given - Provider: Celia Harvey RN - Reason: Patient/family refused) losartan (Cozaar) tablet 100 mg 100 mg, Oral, DAILY, First dose on Mon01/18/23 at 1700, Until Discontinued, Hold for SBP < 120, Routine 174 (Given - Provider: Darby Cochran RN) 0900 (Not Given - Provider: Yuli Payne LPN - Reason: Contraindicated) metoprolol succinate XL (Toprol-XL) tablet 50 mg 50 mg, Oral, DAILY, First dose on Mon01/18/23 at 1700, Until Discontinued, DO NOT CRUSH OR OPEN, Routine 174 (Given - Provider: Darby Cochran RN) 0801 (Given - Provider: Yuli Payne LPN) pantoprazole EC (Protonix) tablet 40 mg 40 mg, Oral, DAILY, First dose (after last reorder) on Mon01/18/23 at 1700, Until Discontinued, DO NOT CRUSH OR OPEN Therapeutic interchange for pantoprazole 20 mg 1746 (Given - Provider: Darby Cochran, JAY) 08 (Given - Provider: Yuli Payne LPN) sodium chloride 0.9 % (flush) (BD PosiFlush Normal Saline 0.9) flush 5 mL 5 mL, Intravenous, 2 TIMES DAILY, First dose on Mon01/18/23 at 2100, Until Discontinued, Routine 2036 (Given - Provider: Morenita Perales, JAY) 0801 (Given - Provider: Yuli Payne LPN) Continuous Medication Order 01/17/2023 01/18/2023 01/19/2023 lactated ringers infusion (CANCELED) 1,000 mL, at 100 mL/hr, Intravenous, CONTINUOUS, Starting on Mon01/18/23 at 0700, Until Mon01/18/23 at 1126, Day of Surgery (Day of Procedure) 0734 (New Bag - Provider: Wade Walsh MD) sodium chloride 0.9% infusion 1,000 mL, at 100 mL/hr, Intravenous, CONTINUOUS, Starting on Mon01/18/23 at 1030, Until Chiquis 01/19/23 at 1611 1029 (New Bag - Provider: Pham Cline RN) 1611 (Due: Stopped) PRN Medication Order 01/17/2023 01/18/2023 01/19/2023 BUpivacaine (pf) (Marcaine) (2.5 mg/mL) 0.25% injection (CANCELED) PRN, Starting on Mon01/18/23 at 0907, Until Chiquis 01/19/23 at 1611, Intra-Operative (Intra-Procedure), Routine 0907 (Given - Provider: Jimmy Martinez MD)0942 (Given - Provider: Jimmy Martinez MD) dextrose 10% infusion(Linked Group 2) 250 mL, at 1,000 mL/hr, Intravenous, EVERY 15 MIN PRN, Starting on Mon01/18/23 at 0652, Until Chiquis 01/19/23 at 1611, For BG 50-70 mg/dL: Oral treatment preferred: If able to drink, give 120 mL juice or regular (not diet) soda OR if NPO, give 15 gram glucose 40% oral gel massaged into buccal mucosa OR if unconscious or uncooperative, give 25 gram (250 mL) dextrose 10% IV over 15 minutes per protocol OR, if no IV access, 1 mg glucagon IM. For BG less than 50 mg/dL: Oral treatment preferred: If able to drink, give 240 mL juice or regular (not diet) soda OR if NPO, give 30 gram glucose 40% oral gel massaged in buccal mucosa OR if unconscious or uncooperative, give 25 gram (250 mL) dextrose 10% IV over 15 minutes per protocol OR, if no IV access, 1 mg glucagon IM. Recheck BG in 15 minutes. May repeat juice/soda, gel, dextrose or glucagon once per episode. Notify provider if hypoglycemia does not resolve after two treatments. Providers should consider the following: administering longer-acting treatments for the duration of active insulin or hypoglycemia agent for persistent hypoglycemia and re-evaluating active insulin orders before administering the next dose. glucagon (Glucagen) (1 mg/mL) injection solution 1 mg(Linked Group 2) 1 mg, Intramuscular, EVERY 15 MIN PRN, Starting on Mon01/18/23 at 0652, Until Mon01/19/23 at 1611, Low blood sugar, For BG 50-70 mg/dL: Oral treatment preferred: If able to drink, give 120 mL juice or regular (not diet) soda OR if NPO, give 15 gram glucose 40% oral gel massaged into buccal mucosa OR if unconscious or uncooperative, give 25 gram (250 mL) dextrose 10% IV over 15 minutes per protocol OR, if no IV access, 1 mg glucagon IM. For BG less than 50 mg/dL: Oral treatment preferred: If able to drink, give 240 mL juice or regular (not diet) soda OR if NPO, give 30 gram glucose 40% oral gel massaged in buccal mucosa OR if unconscious or uncooperative, give 25 gram (250 mL) dextrose 10% IV over 15 minutes per protocol OR, if no IV access, 1 mg glucagon IM. Recheck BG in 15 minutes. May repeat juice/soda, gel, dextrose or glucagon once per episode. Notify provider if hypoglycemia does not resolve after two treatments. Providers should consider the following: administering longer-acting treatments for the duration of active insulin or hypoglycemia agent for persistent hypoglycemia and re-evaluating active insulin orders before administering the next dose. , Routine glucose (Glutose) 40% oral geL(Linked Group 2) 15-30 g of glucose, Buccal, EVERY 15 MIN PRN, Starting on Mon01/18/23 at 0652, Until Chiquis 01/19/23 at 1611, Low blood sugar, For BG 50-70 mg/dL: Oral treatment preferred: If able to drink, give 120 mL juice or regular (not diet) soda OR if NPO, give 15 gram glucose 40% oral gel massaged into buccal mucosa OR if unconscious or uncooperative, give 25 gram (250 mL) dextrose 10% IV over 15 minutes per protocol OR, if no IV access, 1 mg glucagon IM. For BG less than 50 mg/dL: Oral treatment preferred: If able to drink, give 240 mL juice or regular (not diet) soda OR if NPO, give 30 gram glucose 40% oral gel massaged in buccal mucosa OR if unconscious or uncooperative, give 25 gram (250 mL) dextrose 10% IV over 15 minutes per protocol OR, if no IV access, 1 mg glucagon IM. Recheck BG in 15 minutes. May repeat juice/soda, gel, dextrose or glucagon once per episode. Notify provider if hypoglycemia does not resolve after two treatments. Providers should consider the following: administering longer-acting treatments for the duration of active insulin or hypoglycemia agent for persistent hypoglycemia and re-evaluating active insulin orders before administering the next dose. 1 tube of Glutose-15 contains 15 grams of glucose (net weight of tube = 37.5 grams.), Routine lidocaine (Xylocaine) 1% (10 mg/mL) injection 3 mg 3 mg (0.3 mL), Subcutaneous, ONCE PRN, 1 dose, Starting on Mon01/18/23 at 1604, Until Chiquis 01/19/23 at 1611, for discomfort with PIV insertion, Routine ondansetron (pf) (Zofran) (2 mg/mL) injection 4 mg 4 mg, Intravenous, EVERY 8 HOURS PRN, Starting on Mon01/18/23 at 1331, Until Chiquis 01/19/23 at 1611, Nausea, If multiple antiemetics are ordered, use ondansetron first, prochlorperazine second, metoclopramide third. 1335 (Given - Provider: Pham Cline RN) oxyCODONE (Roxicodone) tablet 10 mg(Linked Group 3) 10 mg, Oral, EVERY 4 HOURS PRN, Starting on Mon01/18/23 at 1013, Until Chiquis 01/19/23 at 1611, Pain, moderate pain (4-6), For moderate pain (4-6). Do not exceed 15 mg in 4 hours. If pain not relieved, call provider., Routine 1155 (See Alternative - Provider: Virginie Page RN) oxyCODONE (Roxicodone) tablet 15 mg(Linked Group 3) 15 mg, Oral, EVERY 4 HOURS PRN, Starting on Mon01/18/23 at 1013, Until Chiquis 01/19/23 at 1611, Pain, severe pain (7-10), For severe pain (7-10). Do not exceed 15 mg in 4 hours. If pain not relieved, call provider., Routine 1155 (See Alternative - Provider: Virginie Page RN) oxyCODONE (Roxicodone) tablet 5 mg(Linked Group 3) 5 mg, Oral, EVERY 4 HOURS PRN, Starting on Mon01/18/23 at 1013, Until Chiquis 01/19/23 at 1611, Pain, mild pain (1-3), For mild pain (1-3). Do not exceed 15 mg in 4 hours. If pain not relieved, call provider., Routine 1155 (Given - Provider: Virginie Page RN) prochlorperazine (Compazine) (5 mg/mL) injection 5 mg 5 mg, Intravenous, EVERY 6 HOURS PRN, Starting on Mon01/18/23 at 1358, Until Chiquis 01/19/23 at 1611, Nausea, Routine 1401 (Given - Provider: Pham Cilne RN) sodium chloride 0.9 % (flush) (BD PosiFlush Normal Saline 0.9) flush 5-20 mL 5-20 mL, Intravenous, EVERY 1 MIN PRN, Starting on Mon01/18/23 at 1604, Until Chiquis 01/19/23 at 1611, flush, Flush pertains to all indwelling lines. Flush per protocol found in the job aid using the link provided on this medication record., Routine thrombin (Bovine) (Thrombinar) kit (CANCELED) PRN, Starting on Mon01/18/23 at 0906, Until Mon01/19/23 at 1611, Intra-Operative (Intra-Procedure) 09 (Given - Provider: Jimmy Martinez MD) Linked Groups Order Group 1: POCT Fingerstick Glucose (CANCELED) Routine, EVERY 4 HOURS, First occurrence on Mon01/18/23 at 0655, Until Specified, Consider choosing EVERY 4 HOURS as frequency for: - Type 1 Diabetes - At least 24 hours after coming off an insulin drip - At least 24 hours after admission for DKA - Hypoglycemia unawareness - Patients who are otherwise unstable Select the same frequency for the correction bolus insulin order And insulin lispro (HumaLOG;Admelog) (100 unit/mL) subcutaneous injection vial 1-6 UnitsJump to med 1-6 Units, Subcutaneous, EVERY 4 HOURS SCHEDULED, First dose on Mon01/18/23 at 0800, Until Discontinued, CORRECTION BOLUS [1-6 Units] Moderate Sliding Scale (BG in mg/dL): Correction factor 20 (1 unit of insulin is expected to drop the glucose 20 mg/dL) BG 140 - 160 Give 1 unit BG 161 - 180 Give 2 units BG 181 - 200 Give 3 units BG 201 - 220 Give 4 units BG 221 - 240 Give 5 units BG greater than 240, give 6 units and recheck BG in 2 hours. - If recheck BG is LESS than 240, give no insulin and resume schedule. - If recheck BG is GREATER than or EQUAL to 240, give 6 units and repeat BG in 2 hours (no more than 3 times) & call for new insulin orders. DO NOT hold if NPO, unless specifically directed to do so by written order. ?? Per Inpatient Subcutaneous Insulin Policy, recheck a BG of greater than 240 mg/dL in 2 hours., Routine Group 2: glucose (Glutose) 40% oral geLJump to med 15-30 g of glucose, Buccal, EVERY 15 MIN PRN, Starting on Mon01/18/23 at 0652, Until Chiquis 01/19/23 at 1611, Low blood sugar, For BG 50-70 mg/dL: Oral treatment preferred: If able to drink, give 120 mL juice or regular (not diet) soda OR if NPO, give 15 gram glucose 40% oral gel massaged into buccal mucosa OR if unconscious or uncooperative, give 25 gram (250 mL) dextrose 10% IV over 15 minutes per protocol OR, if no IV access, 1 mg glucagon IM. For BG less than 50 mg/dL: Oral treatment preferred: If able to drink, give 240 mL juice or regular (not diet) soda OR if NPO, give 30 gram glucose 40% oral gel massaged in buccal mucosa OR if unconscious or uncooperative, give 25 gram (250 mL) dextrose 10% IV over 15 minutes per protocol OR, if no IV access, 1 mg glucagon IM. Recheck BG in 15 minutes. May repeat juice/soda, gel, dextrose or glucagon once per episode. Notify provider if hypoglycemia does not resolve after two treatments. Providers should consider the following: administering longer-acting treatments for the duration of active insulin or hypoglycemia agent for persistent hypoglycemia and re-evaluating active insulin orders before administering the next dose. 1 tube of Glutose-15 contains 15 grams of glucose (net weight of tube = 37.5 grams.), Routine Or dextrose 10% infusionJump to med 250 mL, at 1,000 mL/hr, Intravenous, EVERY 15 MIN PRN, Starting on Mon01/18/23 at 0652, Until Mon01/19/23 at 1611, For BG 50-70 mg/dL: Oral treatment preferred: If able to drink, give 120 mL juice or regular (not diet) soda OR if NPO, give 15 gram glucose 40% oral gel massaged into buccal mucosa OR if unconscious or uncooperative, give 25 gram (250 mL) dextrose 10% IV over 15 minutes per protocol OR, if no IV access, 1 mg glucagon IM. For BG less than 50 mg/dL: Oral treatment preferred: If able to drink, give 240 mL juice or regular (not diet) soda OR if NPO, give 30 gram glucose 40% oral gel massaged in buccal mucosa OR if unconscious or uncooperative, give 25 gram (250 mL) dextrose 10% IV over 15 minutes per protocol OR, if no IV access, 1 mg glucagon IM. Recheck BG in 15 minutes. May repeat juice/soda, gel, dextrose or glucagon once per episode. Notify provider if hypoglycemia does not resolve after two treatments. Providers should consider the following: administering longer-acting treatments for the duration of active insulin or hypoglycemia agent for persistent hypoglycemia and re-evaluating active insulin orders before administering the next dose. Or glucagon (Glucagen) (1 mg/mL) injection solution 1 mgJump to med 1 mg, Intramuscular, EVERY 15 MIN PRN, Starting on Mon01/18/23 at 0652, Until Chiquis 01/19/23 at 1611, Low blood sugar, For BG 50-70 mg/dL: Oral treatment preferred: If able to drink, give 120 mL juice or regular (not diet) soda OR if NPO, give 15 gram glucose 40% oral gel massaged into buccal mucosa OR if unconscious or uncooperative, give 25 gram (250 mL) dextrose 10% IV over 15 minutes per protocol OR, if no IV access, 1 mg glucagon IM. For BG less than 50 mg/dL: Oral treatment preferred: If able to drink, give 240 mL juice or regular (not diet) soda OR if NPO, give 30 gram glucose 40% oral gel massaged in buccal mucosa OR if unconscious or uncooperative, give 25 gram (250 mL) dextrose 10% IV over 15 minutes per protocol OR, if no IV access, 1 mg glucagon IM. Recheck BG in 15 minutes. May repeat juice/soda, gel, dextrose or glucagon once per episode. Notify provider if hypoglycemia does not resolve after two treatments. Providers should consider the following: administering longer-acting treatments for the duration of active insulin or hypoglycemia agent for persistent hypoglycemia and re-evaluating active insulin orders before administering the next dose. , Routine Group 3: oxyCODONE (Roxicodone) tablet 5 mgJump to med 5 mg, Oral, EVERY 4 HOURS PRN, Starting on Mon01/18/23 at 1013, Until Chiquis 01/19/23 at 1611, Pain, mild pain (1-3), For mild pain (1-3). Do not exceed 15 mg in 4 hours. If pain not relieved, call provider., Routine Or oxyCODONE (Roxicodone) tablet 10 mgJump to med 10 mg, Oral, EVERY 4 HOURS PRN, Starting on Mon01/18/23 at 1013, Until Chiquis 01/19/23 at 1611, Pain, moderate pain (4-6), For moderate pain (4-6). Do not exceed 15 mg in 4 hours. If pain not relieved, call provider., Routine Or oxyCODONE (Roxicodone) tablet 15 mgJump to med 15 mg, Oral, EVERY 4 HOURS PRN, Starting on Mon01/18/23 at 1013, Until Chiquis 01/19/23 at 1611, Pain, severe pain (7-10), For severe pain (7-10). Do not exceed 15 mg in 4 hours. If pain not relieved, call provider., Routine documented in this encounter Care Teams Pbx Repairer Relationship Specialty Start Date End Date Haylee Baptiste MD [address] [place] [address] PCP - General 01/21/10 documented as of this encounter
--- OUTSIDE RECORDS SUMMARY | 2023-12-15 12:38 | XMS_ITS | Encounter Summary ---
[place] [address] Care Team Providers Care Porcelain Enamel Laborer Name Role Phone Haylee Baptiste MD Primary Care Provider [phone] Reason for Referral * Consultation (Routine) - Closed Specialty Diagnoses / Procedures Referred By Mike jalloh Referred To Contact [facility] Diagnoses Cord compression syndrome Cervical cord compression syndrome w/UE numbness/MRI 06/2021 in [facility]- ARB/SLB only if new MRI can be scheduled with AMP Haylee Baptiste MD [address] [place] [address] [facility] [place] [address] Referral ID Status Reason Start Date Expiration Date V isits Requested Visits Authorized [id number] Closed Consult, Test & Treat PCP Updated and/or Approved 09/22/2022 09/22/2023 6 6 Encounter Details Date Type Department Care Team (Latest Contact Info) Description 09/22/2022 Transcribe Orders eDH Incoming Referrals [phone] Haylee Baptiste MD [address] [place] [address] Cord compression syndrome Social History Tobacco Use Types Packs/Day Years [...] TH Visit (TeleHealth) Hematology and Oncology at [place] [phone] Kati Burnette MD [facility] [address] [place] [id number] 01/24/2024 9:30 AM EST Appointment XRay at [address] [place] [address] Jimmy Swann MD [facility] [place] [address] 01/24/2024 11:00 AM EST Office Visit Pain and Spine Center at [place] [address] Regulo Wang PA [facility] [place] [address] 01/24/2024 2:45 PM EST Appointment Mammography at [place] [address] 01/24/2024 3:45 PM EST Office Visit General Surgery at [place] [address] Caitlyn Hirsch MD [facility] [place] [address] 03/20/2024 9:00 AM EST Office Visit Hematology and Oncology at [place] [address] Ericka Forrest, [facility] [place] [address] 07/29/2024 2:00 PM EDT Office Visit Radiation Oncology at [address] [phone] Kasie Marte MD [facility] [place] [address] Scheduled Referrals Name Type Priority Associated Diagnoses Orde r Schedule Referral to Spine Center Outpatient Referral Routine Cord compression syndrome Ordered: 09/22/2022 documented as of this encounter Visit Diagnoses Diagnosis Cord compression syndrome Unspecified disease of spinal cord documented in this encounter Care Teams Porcelain Enamel Laborer Relationship Specialty Start Date End Date Haylee Baptiste MD [address] [place] [address] PCP - General 01/21/10 documented as of this encounter
--- OUTSIDE RECORDS SUMMARY | 2023-12-15 12:38 | XMS_ITS | Encounter Summary ---
Author Organization [facility] [place] [address] Care Team Providers Care Driver Courier Name Role Phone Haylee Baptiste MD Primary Care Provider [phone] Reason for Referral * Consultation (Routine) - Closed Specialty Diagnoses / Procedures Referred By Contac t Referred To [facility] Diagnoses Osteoarthritis of cervical spine with myelopathy Cervical cord compression syndrome w/UE numbness/ MRI & Xray 12/27/22 in [facility] Haylee Eckert APRN [facility] [place] [address] Jimmy Swann MD [facility] [place] [address] Referral ID Status Reason Start Date Expiration Date V isits Requested Visits Authorized [id number] Closed Surgical 12/07/2022 12/07/2023 3 3 Reason for Visit * Reason Comments Numbness In Hand Left arm and hand nu mbnessLeft sided facial numbness * Consultation (Routine) - Closed Specialty Diagnoses / Procedures Referred By Contac t Referred To [facility] Diagnoses Cord compression syndrome Cervical cord compression syndrome w/UE numbness/MRI 06/2021 in [facility] ARB/SLB only if new MRI can be scheduled with AMP Haylee Baptiste MD [address] [place] [address] [facility] [place] [address] Referral ID Status Reason Start Date Expiration Date V isits Requested Visits Authorized [id number] Closed Consult, Test & Treat PCP Updated and/or Approved 09/22/2022 09/22/2023 6 6 Encounter Details Date Type Department Care Team (Latest Contact Info) Description 12/07/2022 3:15 PM EDT Office Visit [place] [address] Haylee Eckert APRN [facility] [place] [address] Osteoarthritis of cervical spine with myelopathy Social History Tobacco Use Types Packs/Day [...] - - Weight 74.4 kg (164 lb) 12/07/2022 3:15 PM EDT Height 157.5 cm (5' 2) 12/07/2022 3:15 PM EDT Body Mass Index 30 12/07/2022 3:15 PM EDT documented in this encounter Progress Notes * Haylee Eckert APRN - 12/07/2022 3:15 PM EDT [facility] Medical Decision Making: Nallely Velazquez is a pleasant 67 y.o. female seen today for a chief complaint of left upper extremity altered sensation with progressive sense of clumsiness. The patient does feel as though sheis ready to move forward with the ACDF at C6-7 that was previously discussed with Dr. Jimmy Swann MD. She does feel as though she has become more clumsy in her upper extremities especially over this past summer. She is doing well from medical standpoint and is no longer on Plavix. I think it is quite reasonable to continue this discussion with Dr. Jimmy Swann MD but would recommend given the progression of left upper extremity symptoms that we get an updated MRI of the cervical spine as well as dynamic x-rays. The patient verbalizes agreement and understanding and she will follow-up with Dr. Jimmy Swann MD after the imaging studies are completed Diagnosis: ICD-10-CM 1. Osteoarthritis of cervical spine with myelopathy M47.12 XR Cervical Spine AP Flexion & Extension Only MRI Cervical Spine wo Contrast (Generic) Referral to Pain and Spine Center (Internal only) Plan MR cervical spine Dynamic x-ray cervical Follow-up with Dr. Jimmy Swann MD when the above is completed HPI Nallely Velazquez is a 67 y.o. female last seen by Dr. Jimmy Swann MD on 09/13/2021 at that time, she was seen for a chief complaint of 5 months of intermittent left-sided facial numbness with additional numbness of the left upper extremity and occasionally the entire left side of her body. He discussed with the patient that surgical treatment for her symptoms would not necessarily target theleft facial numbness and tingling but because she did have some early signs of potential myelopathy, he discussed that it would not be unreasonable to consider an ACDF at C6-7 although she had recently had an AL with stent placement and was not a candidate for surgery at that time. Today, she reports that she is off the Plavix and she does feel as though she has become more clumsy in her upper extremities over this past summer and does find that she has been dropping things more. She is interested in moving forward with the suggested surgery that was discussed with Dr. Swann last year. ROS A ten point review of systems was completed today and, of note, pertinent positives and negatives are indicated in the HPI. reports that she has never smoked. She has never used smokeless tobacco. Conservative Treatment: Physical Therapy: None recently Home Exercise Program: Independent as tolerated Medications: Tylenol as needed Injections: None Physical Examination Wt Readings from Last 1 Encounters: 12/07/22 74.4 kg (164 lb) BMI Readings from Last 1 Encounters: 12/07/22 30.00 kg/m?? Pain: 0 - No pain General: Pleasant, cooperative, Mood and affect are appropriate Posture: Upright Gait: Nonantalgic Palpation: There is no tenderness on palpation Skin: Intact with no stigmata of underlying disease. ROM: Full Sensation: Grossly intact throughout all dermatomes of the upper extremities with the exception of some altered sensation and more of a C7 distribution on the left but otherwise, fairly global Neuro: Strength: 5/5 throughout all muscle groups Reflexes: 1+ at the bicep, tricep, brachioradialis, brisk at the knees and 3+/4, absent at the ankles. Ha's is negative Imaging and Test Review: No new imaging was ordered for review today CC: Haylee Baptiste MD Referring Provider: Haylee Eckert APRN 12/07/2022 [facility] documented in this encounter Plan of Treatment Upcoming Encounters Date Type Department Care Team (Late st Contact Info) Description 01/09/2024 2:20 PM EST TH Visit (TeleHealth) [place] [address] Kati Burnette MD [facility] DR HEMATOLOGY [place] [address] 01/24/2024 9:30 AM EST Appointment XRay at [address] [place] [address] Jimmy Swann MD [facility] [place] [address] 01/24/2024 11:00 AM EST Office Visit [place] [phone] Regulo Wang PA [facility] [place] [address] 01/24/2024 2:45 PM EST [place] [address] 01/24/2024 3:45 PM EST Office Visit General Surgery at [place] [phone] Caitlyn Hirsch MD [facility] [place] [address] 03/20/2024 9:00 AM EST Office Visit Hematology and Oncology at [place] [phone] Ericka Forrest, [facility] DR HEMATOLOGY [place] [address] 07/29/2024 2:00 PM EDT Office Visit Radiation Oncology at [address] [address] Kasie Marte MD [facility] [place] [address] Scheduled Referrals Name Type Priority Associated Diagnoses Orde r Schedule Referral to Pain and Spine Center (Internal only) Outpatient Referral Routine Osteoarthritis of cervical spine with myelopathy Ordered: 12/07/2022 documented as of this encounter Results * [...] who have questions please contact the health physician primary care sports medicine that requested your imaging first. ? Narrative 12/27/2022 11:09 AM EST EXAMINATION: XR [...] patients who have questions please contactthe health physician primary care sports medicine that requested your imaging first. 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
--- OUTSIDE RECORDS SUMMARY | 2023-12-15 12:38 | XMS_ITS | Encounter Summary ---
[place] [address] Care Team Providers Care Pleating Supervisor Name Role Phone Haylee Baptiste MD Primary Care Provider [phone] Reason for Visit * Reason Onset Date Comments Pre Procedure Call 01/05/2023 Pre/postop ed ucation, pre/post op opioid and non opioid pain mgmt, PDMP, ORT. Refill practices, tapering med use Encounter Details Date Type Department Care Team (Late st Contact Info) Description 01/05/2023 Telephone [place] [phone] Jasmin Richmond RN Pre Procedure Call (Pre/postop education, pre/post op opioid and non opioid pain mgmt, PDMP, ORT. Refill practices, tapering med use) Social History Tobacco Use Types Packs/Day Years [...] encounter Miscellaneous Notes * Telephone Encounter - Jasmin Richmond RN - 01/05/2023 6:30 PM EST Images from the original note were not included. Met with Ms.Hawlk Velazquez today following the surgical evaluation for purpose of providing pre and post operative instructions and to plan for any pre/post- operative discharge needs. Ms.Hawlk Velazquez is being scheduled for a ACDF C6-[address] Swann on 01/18/23 Collar Info: Soft collar use planned postoperatively. Preop Medication Holds: Advised pt of need to hold anticoagulants, NSAIDs, ASA products, Fish Oil, and dietary supplements for ~10 days preoperatively. Reviewed medication list. Pt agreed to hold ASA as instructed. Ms.Hawlk Velazquez is not noted to be taking any prescription Anticoagulants or Biologics. Pt reports that her plavix was discontinued in October; that she is only taking ASA 81 mg currently. 10 day hold of that was advised to pt. Instructed pt to check with her PCP, or the provider that manages her diabetes, to see if they wanted her to adjust any of her diabetic med use immediately prior to surgery. Pt verbalized understanding of these instructions. Opioid Risks and Pain Management: Patient reviewed and signed the Acute Opioid Consent. The signed form was passed to the OR child development director to be scanned. Reviewed with Ms.Hawlk Velazquez that she is likely to experience some incisional pain as well as throat discomfort and difficulty swallowing postoperatively. Reviewed some strategies to ease swallowing during the acute recovery period. Reviewed with pt that continued or new intrascapular pain is not uncommon following a cervical fusion. Emphasized the importance of relaxing she shoulders and keepingthem in a neutral position; explaining that guarding will increase muscle tension resulting in increased pain and spasms. Discussed with pt expectations re postoperative incisional and extremity pain, to include expectations re potential new or increased N/T. See PDMP query below. Reviewed current and historical opioid use. Ms.Hawlk Velazquez is not noted to beon opioids currently. Acute post-operative pain mgmt is expected to be ordered by Dr Dr Swann and his team. Pt has numerous intolerances to opioids which are documented in her allergy list. Instructed pt to inform al the staff/providers in SDS area of her preference for tramadol as soon as possible given that is the pain med she tolerated best. Reviewed in detail non-opioid pain mgmt strategies that should be put in place postoperatively to minimize opioid use. Strategies discussed included: rest and relaxation, activity modification, regular repositioning, regular Acetaminophen use, hourly ice application to incisional area and intrascapular region for local analgesia/inflammation. Explained that the non-opioid pain mgmt strategies areintended to be the first line of treatment to assist with her postop pain. Advised pt that she should contiue the non- opioid pain mgmt treatments as long as he's taking the opioids; that the opioid is the first treatment that should be discontinued. Advised Ms.Hawlk Velazquez that the opioid pain medication that will be prescribed is to be used to supplement the non-opioid methods. Advised pt that she is to take the least amt of opioid possible, andthe expectation is that she will reduce use as the postoperative pain subsides. Reminded pt, that given she is scheduled for a fusion, that NSAIDS need to be held postoperatively for several months. Provided instructions and general expectations re prescription refill practices/timing. Acute Opioid Prescribin01/05/2023 Opioid PDMP [place] PDMP Query Date 01/05/2023 Comment 01/05/23 2 yr [place] PD[place] query performed; noted single script for Tramadol dated in June 2022. No concerns at this time. No data to display 01/05/2023 Acute Opioid Specific Questions Date Acute Consent signed 01/05/2023 Comment 01/05/23 Acute Opioid consent reviewed and signed; signed consent to OR child development director to be scanned. Considered the risk of opioid misuse, abuse, diversion? Yes Comment 01/05/23 No concerns at this time. Considered options for non-pharmacological modalities and non-opioid therapy? Yes Comment 01/05/23 Reviewed in detail opioid and non opioid pain mgmt; our expectations of both; discussed responsible opiid tapering, med refill practices. Activity: Reviewed with Ms.Hawlk Velazquez our expectations re activity postoperatively, to include use of good body mechanics, to relax when moving rather than tensing/guarding, and our expectations re progressive walking upon return home. Advised Ms.Hawlk Velazquez that she would not be able to drive while taking opioid pain medication, is not having distracting pain, and until she has adequate cervical ROM Home Support/Services Expected: Discussed home environment and support available following discharge. Pt denies having any transportation concerns. Pt has access to the following DME as needed postoperatively: cane, walking stick, crutches, walker, shower chair and raised toilet seat. Pt's bedroom is on the second floor. Instructed pt t assure that int PT were aware of this so they could test her on stairs prior to discharge, instructed her to have supervision/ someone guarding her the first few times going down the stairs asfield of vision might be different when wearing the soft collar. Pt agreeable. Patient has the support of her , who is retired, at discharge. It's anticipated that pt will go home without VNA services. 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 Pt does not expect to need formal VNA services. 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 Reviewed with pt where to send Disability/FMLA forms; and expectations regarding completion. A copy of [facility] Pre/Post-Operative Reference sheet provided to pt; reviewed the content. Encouraged Ms.Hawlk Velazquez to review these instructions prior to coming into the hospital and then againupon return home so that the instructions will be recalled easily. Ms.Hawlk Velazquez verbalized understanding of the information reviewed.. Ms.Hawlk Velazquez was given the contact information for the Spine Center Nursing staff; she was encouraged to call pre or postoperatively with any questions or concerns. Optimization letter initiated and pended to the OR child development director to complete and process. Amended afterhrs when it was know pt is no longer on an anticoagulant. documented in this encounter Plan of Treatment Upcoming Encounters Date Type Department Care Team (Late st Contact Info) Description 01/09/2024 2:20 PM EST TH Visit (TeleHealth) Hematology [place] [address] Kati Burnette MD [facility] [place] [address] 01/24/2024 9:30 AM EST Appointment XRay at [address] [place] [address] Jimmy Swann MD [facility] [place] [address] 01/24/2024 11:00 AM EST Office Visit Pain and Spine Center at [place] [address] Regulo Wnag PA [facility] [place] [place] [address] 01/24/2024 2:45 PM EST Appointment [place] [address] 01/24/2024 3:45 PM EST Office Visit General Surgery at [place] [address] Caitlyn Hirsch MD [facility] [place] [address] 03/20/2024 9:00 AM EST Office Visit Hematology and Oncology at [place] [address] Ericka Forrest, [facility] [place] [address] 07/29/2024 2:00 PM EDT Office Visit Radiation Oncology at [address] [phone] Kasie Marte MD [facility] [place] [address] documented as of this encounter Visit Diagnoses Not on filedocumented in this encounter Care Teams Pleating Supervisor Relationship Specialty Start Date End Date Haylee Baptiste MD [address] [place] [address] PCP - General 01/21/10 documented as of this encounter
--- OUTSIDE RECORDS SUMMARY | 2023-12-15 12:38 | XMS_ITS | Encounter Summary ---
Author Organization [facility] [place] [address] Care Team Providers Care Designated Broker Name Role Phone Haylee Baptiste MD Primary Care Provider [phone] Reason for Visit * Reason Comments Neck Pain Neck/ head and at ti mes entire left sided numbness to foot * Consultation (Routine) - Closed Specialty Diagnoses / Procedures Referred By Contac t Referred To Contact [facility] and Sp[facility] Diagnoses Cervical spondylosis Dizziness Spine - Cervical disc herniation w/ cord impingement/ MRI 06/29/21 in eDH *SIMBA or Cody Roberts [place] [facility] [place] [address] [facility] [place] [address] Referral ID Status Reason Start Date Expiration Date V isits Requested Visits Authorized [id number] Closed Consult, Test & Treat 06/29/2021 06/29/2022 1 1 Encounter Details Date Type Department Care Team (Late st Contact Info) Description 09/13/2021 3:00 PM EDT Office Visit [place] [address] Jimmy Swann MD [facility] [place] [address] HNP (herniated nucleus pulposus), cervical Social History Tobacco Use Types Packs/Day Years [...] Sign Reading Time Taken Comments Blood Pressure 130/63 09/13/2021 2:41 PM EDT Pulse 84 09/13/2021 2:41 PM EDT Temperature - - Respiratory Rate - - Oxygen Saturation - - Inhaled Oxygen Concentration - - Weight 83.5 kg (184 lb) 09/13/2021 2:41 PM EDT Height 157.5 cm (5' 2) 09/13/2021 2:41 PM EDT Body Mass Index 33.65 09/13/2021 2:41 PM EDT documented in this encounter Progress Notes * Jimmy Swann MD - 09/13/2021 3:00 PM EDT Chief complaint: Numbness affecting left side of the face, left upper extremity, and occasionally entire left side of the body History of present illness: Ms. Velazquez is a 66-year-old female whom I am seeing in consultation for Dr. Staton in regards to intermittent numbness that predominantly affects the left side of her face that intermittently her left upper extremity and more rarely the entire left side of her body. She ishaving a pain or weakness. These episodes began insidiously this past March. The episodes last anywhere between 1 and 10 minutes and occur 1-10 times per day. The episodes come on spontaneously and resolve spontaneously without any clear exacerbating or ameliorating activities. They rarely occurat night. She feels somewhat off balance and has felt this such for years. Generally her balance has not worsened unless she is having 1 of these episodes, and her balance does feel worse. As long asshe not having 1 of these episodes, her fine motor skills are normal. If the left hand is numb, it is clumsy. She denies constitutional symptoms or change in her bowel or bladder function. She has taken Flexeril with no benefit. She has not had any other treatment for this. She has not had prior spinal surgery. Past medical history: Diabetes, heart disease with recent admission for NSTEMI with stenting, hypertension, sarcoidosis Past surgical history: Cholecystectomy, surgery for Meckel's diverticulum, cubital tunnel surgery, nephrostomy tube placement Medications and allergies were reviewed and are in eDH. She does take aspirin and Plavix and needs to remain on those for least 6 to 12 months after her recent stent. 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 She has not missed work related to this. She does not smoke or drink. Review of systems: All negative except musculoskeletal as above. Physical exam Patient is 5 foot 2, 184 pounds, with a BMI of 33.7 General: Patient is comfortable, no acute distress Neck: Her neck is nontender to palpation. She can flex 30 degrees, extend 30 degrees, rotate 50 degrees, and side bend 20 degrees. Neurological exam: She walks with normal gait. She has only mild difficulty with tandem gait, she can do it. Motor exam reveals 5/5 strength of all upper extremity motor groups. She has normal sensory exam. Reflexes are 1/4 in the upper extremities, 3/4 at the knees, trace at the ankles. Spurling'sis negative bilaterally. Ha's is negative bilaterally. She has no clonus. Shoulder exam: She has normal, painless range of motion of both shoulders. Vascular: She has palpable radial pulses bilaterally. Imaging: MRI of the cervical spine from 06/29/2021 was reviewed. This showed degenerative changes from C4-C7. C4-C5, there is a broad-based disc osteophyte complex causing mild central stenosis. At C5-C6, there is a left paracentral disc protrusion causing moderate left left-sided foraminal narrowing. The protrusion abuts but does not compress the spinal cord. At C6-C7, there is a large left sideddisc herniation causing marked compression of the left side of the cord and the left C7 nerve root. MRA of the cervical spine from 06/30/2021 was reviewed. This shows a narrowed right vertebral arterythat could be related to congenital narrowing or possibly a dissection. Assessment/plan: Ms. velazquez is a 66-year-old female who presents with about 5 months of intermittentleft sided facial numbness that can be associated with numbness in her left upper extremity and occasionally the entire left side of her body. These episodes are short lived. She has no neck or upperextremity pain. She has no numbness or weakness on physical exam. Her physical exam is essentially normal other than some mild hyperreflexia at the knees. Her MRI does show significant compression ofthe spinal cord on the left side of the C6-C7 level, and that could be contributing to her symptoms, however, the intermittent nature of her symptoms and the most pronounced numbness being in the face argue against myelopathy as being the main diagnosis. Iit seems as though there is likely another process going on as well. She is going to follow-up with Dr. Mata to see what he thinks is going on. One could consider surgical treatment for this that would most likely involve a C6-C7 ACDF. I told her that I did not think that would improve her facial numbness and could potentially have no effec t on her left-sided numbness if there is another underlying diagnosis. The main goal of any surgerywould be to prevent any progression of myelopathy. Given her recent IL and stent placement, she is most likely not a candidate for elective surgery for least the next 6 to 12 months. In the event that she does want to discuss surgery in the future after that time, she should return to see me with AP and lateral flexion-extension x-rays of the cervical spine prior to that visit. documented in this encounter Plan of Treatment Upcoming Encounters Date Type Department Care Team (Late st Contact Info) Description 01/09/2024 2:20 PM EST TH Visit (TeleHealth) Hematology [place] [address] Kati Burnette MD [facility] [place] [address] 01/24/2024 9:30 AM EST Appointment XRay at [address] [place] [address] Jimmy Swann MD [facility] [place] [address] 01/24/2024 11:00 AM EST Office Visit [place] [address] Regulo Wang PA [facility] [place] [address] 01/24/2024 2:45 PM EST Appointment Mammography at [place] [address] 01/24/2024 3:45 PM EST Office Visit General Surgery at [place] [address] Caitlyn Hirsch MD [facility] [place] [address] 03/20/2024 9:00 AM EST Office Visit Hematology and Oncology at [place] [address] Ericka Forrest [facility] DR [place] [address] 07/29/2024 2:00 PM EDT Office Visit Radiation Oncology at [address] [phone] Kasie Marte MD [facility] [place] [address] Scheduled Referrals Name Type Priority Associated Diagnoses Orde r Schedule Referral to Spine Center Outpatient Referral Routine Cervical spondylosis Dizziness Ordered: 06/29/2021 documented as of this encounter Visit Diagnoses Diagnosis HNP (herniated nucleus pulposus), cervical Displacement of cervical intervertebral disc without myelopathy documented in this encounter Care Teams Designated Broker Relationship Specialty Start Date End Date Haylee Baptiste MD [address] [place] [address] PCP - General 01/21/10 documented as of this encounter
--- OUTSIDE RECORDS SUMMARY | 2023-12-15 12:38 | XMS_ITS | Encounter Summary ---
Author Organization [facility] Address [facility] [place] [address] Care Team Providers Care Bookkeeping Machine Mechanic Name Role Phone Haylee Baptiste MD Primary Care Provider [phone] Encounter Details Date Type Department Care Team (Latest Contact Info) Description 12/07/2022 Travel Social History Tobacco Use Types Packs/Day [...] TH Visit (TeleHealth) Hematology [place] [phone] Kati Burnette MD [facility] HEMATOLOGY [place] [address] 01/24/2024 9:30 AM EST Appointment XRay at [address] [place] [phone] Jimmy Swann MD [facility] [place] [address] 01/24/2024 11:00 AM EST Office Visit Pain and Spine Center at [place] [address] Regulo Wang PA [facility] [place] [address] 01/24/2024 2:45 PM EST Appointment Mammography at [place] [address] 01/24/2024 3:45 PM EST Office Visit General Surgery at [place] [address] Caitlyn Hirsch MD [facility] [place] [address] 03/20/2024 9:00 AM EST Office Visit Hematology and Oncology at [place] [address] Ericka Forrest, [facility] [place] [address] 07/29/2024 2:00 PM EDT Office Visit Radiation Oncology at [address] [phone] Kasie Marte MD [facility] [place] [address] documented as of this encounter Visit Diagnoses Not on filedocumented in this encounter Care Teams Bookkeeping Machine Mechanic Relationship Specialty Start Date End Date Haylee Baptiste MD [address] [place] [address] PCP - General 01/21/10 documented as of this encounter
--- OUTSIDE RECORDS SUMMARY | 2023-12-15 12:38 | XMS_ITS | Encounter Summary ---
Author Organization [facility] Address [facility] [place] [address] Care Team Providers Care Twisting Press Operator Name Role Phone Haylee Baptiste MD Primary Care Provider [phone] Encounter Details Date Type Department Care Team (Late st Contact Info) Description 12/08/2022 Telephone Functional Tenriism Program at [facility] [address] [place] [address] Maurice Shaikh Social History Tobacco Use Types Packs/Day Years [...] TH Visit (TeleHealth) Hematology [place] [address] Kati Burnette MD [facility] [place] [address] 01/24/2024 9:30 AM EST Appointment XRay at [address] [place] [phone] Jimmy Swann MD [facility] [place] [address] 01/24/2024 11:00 AM EST Office Visit Pain and Spine Center at [address] Regulo Wang PA [facility] [place] [address] 01/24/2024 2:45 PM EST Appointment Mammography at [place] [address] 01/24/2024 3:45 PM EST Office Visit General Surgery at [place] [address] Caitlyn Hirsch MD [facility] [place] [address] 03/20/2024 9:00 AM EST Office Visit Hematology and Oncology at [address] Ericka Forrest, [facility] DR [place] [address] 07/29/2024 2:00 PM EDT Office Visit Radiation Oncology at [address] [phone] Kasie Marte MD [facility] [place] [address] documented as of this encounter Visit Diagnoses Not on filedocumented in this encounter Care Teams Twisting Press Operator Relationship Specialty Start Date End Date Haylee Baptiste MD [address] [place] [address] PCP - General 01/21/10 documented as of this encounter
--- OUTSIDE RECORDS SUMMARY | 2023-12-15 12:38 | XMS_ITS | Encounter Summary ---
Author Organization [facility] Address [facility] [place] [address] Care Team Providers Care Money Market Clerk Name Role Phone Haylee Baptiste MD Primary Care Provider [phone] Encounter Details Date Type Department Care Team (Latest Contact Info) Description 01/05/2023 Travel Social History Tobacco Use Types Packs/Day [...] TH Visit (TeleHealth) Hematology [place] [phone] Kati Burnette MD [facility] HEMATOLOGY [place] [address] 01/24/2024 9:30 AM EST Appointment XRay at [address] [place] [phone] Jimmy Swann MD [facility] [place] [address] 01/24/2024 11:00 AM EST Office Visit Pain and Spine Center at [place] [address] Regulo Wang PA [facility] [place] [address] 01/24/2024 2:45 PM EST Appointment Mammography at [place] [address] 01/24/2024 3:45 PM EST Office Visit General Surgery at [place] [address] Caitlyn Hirsch MD [facility] [place] [address] 03/20/2024 9:00 AM EST Office Visit Hematology and Oncology at [place] [address] Ericka Forrest, [facility] [place] [address] 07/29/2024 2:00 PM EDT Office Visit Radiation Oncology at [address] [phone] Kasie Marte MD [facility] [place] [address] documented as of this encounter Visit Diagnoses Not on filedocumented in this encounter Care Teams Money Market Clerk Relationship Specialty Start Date End Date Haylee Baptiste MD [address] [place] [address] PCP - General 01/21/10 documented as of this encounter
--- OUTSIDE RECORDS SUMMARY | 2023-12-15 12:38 | XMS_ITS | Encounter Summary ---
Author Organization [facility] [place] [address] Care Team Providers Care Professor Of Psychiatry Name Role Phone Haylee Baptiste MD Primary Care Provider [phone] Encounter Details Date Type Department Care Team (Latest Contact Info) Description 01/24/2023 Travel Social History Tobacco Use Types Packs/Day Years Used Date Smoking Tobacco: Never Smokeless Tobacco: Never Alcohol Use Standard Drinks/Week Comments No 0 (1 standard drink = 0.6 oz pur e alcohol) [facility] Inpatient Questions Answer Date Recorded Does [...] TH Visit (TeleHealth) [place]ematology [place] [address] Kati Burnette MD [facility] DR [place] [address] 01/24/2024 9:30 AM EST Appointment XRay at [address] [place] [address] Jimmy Swann MD [facility] [place] [place] [address] 01/24/2024 11:00 AM EST Office Visit Pain and Spine Center at [place] [address] Regulo Wang PA [facility] [place] [address] 01/24/2024 2:45 PM EST Appointment Mammography at [place] [address] 01/24/2024 3:45 PM EST Office Visit General Surgery at [place] [address] Caitlyn Hirsch MD [facility] [place] [address] 03/20/2024 9:00 AM EST Office Visit Hematology and Oncology at [place] [address] Ericka Forrest, [facility] DR HEMATOLOGY [place] [address] 07/29/2024 2:00 PM EDT Office Visit Radiation Oncology at [address] [phone] Kasie Marte MD [facility] [place] [address] documented as of this encounter Visit Diagnoses Not on filedocumented in this encounter Care Teams Professor Of Psychiatry Relationship Specialty Start Date End Date Haylee Baptiste MD [address] [place] [address] PCP - General 01/21/10 documented as of this encounter
--- OUTSIDE RECORDS SUMMARY | 2023-12-15 12:38 | XMS_ITS | Encounter Summary ---
Author Organization [facility] Address [facility] [place] [address] Care Team Providers Care Oil Change Technician Name Role Phone Haylee Baptiste MD Primary Care Provider [phone] Reason for Referral * Physical Therapy (Routine) - Closed Specialty Diagnoses / Procedures Referred By Mike jalloh Referred To Contact Diagnoses Other spondylosis with radiculopathy, cervical region Cody Staton MD [facility] [place] [address] Referral ID Status Reason Start Date Expiration Date V isits Requested Visits Authorized [id number] Closed Evaluate and Treat 09/30/2021 03/29/2022 12 12 Encounter Details Date Type Department Care Team (Late st Contact Info) Description 09/30/2021 8:30 AM EDT Office Visit Neurology at [facility] [place] [address] Cody Staton MD [facility] [place] [id number] Other spondylosis with radiculopathy, cervical region Social History Tobacco Use Types Packs/Day Years Used Date Smoking Tobacco: Never Smokeless Tobacco: Never Alcohol Use Standard Drinks/Week Comments No 0 (1 standard drink = 0.6 oz pur e alcohol) Sex and Gender Information Value Date Recorded Sex Assigned at Not on file Gender Identity Not on file Sexual Orientation Not on file documented as of this encounter Progress Notes * Cody Staton MD - 09/30/2021 8:30 AM EDT Images from the original note were not included[place] [address] 09/30/2021 Patient name: Nallely Velazquez Date of : 1955 Referring provider: No referring provider defined for this encounter. HISTORY REASON FOR REFERRAL/CHIEF COMPLAINT: Facial paresthesia. HISTORY OF PRESENTING COMPLAINTS: Referred for evaluation of left facial paresthesiae. She say she has been having these episodes since March when her left side of face would go numb. This could last few minutes and resolved. At times her arms were also going numb and then entire left side was affected. There was concern for stroke or TIA and she had MRI brain which showed only microvascular disease. Episodes are now occurringfrequently with around 5-6 episodes a day. Last one was today morning. She had only one episode where she couldn't function. She has history of HTN and DM. DM not under good control with A1C 10.5. She has family history of stroke in both parents, one had clot and other had hemorrhage. Her parents were also diabetic. She is taking aspirin and plavix at this time due to concern for TIA. She has history of DJD C spine. She has seen Dr. Segal in the past for cervical disc prolapse at 2 sites. She was not a surgical candidate at that time. 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 Lives in [facility] with her . Non smoker. No alcohol use. She has occasional headaches. No tinnitus. She has history of hearing loss on left side. She has history of imbalance. She has history of one of her kidney shutting done in the past with no specific etiology determined. 06/29/2021: She says numbness episodes are slightly improved. She has taken the medications but hasn't been able to attend therapy yet. Had MRI C spine today showing DJD changes Otherwise stable. 09/30/2021: Follow up cervicogenic paresthesia She had NH recently with cath showing LAD 90% blocked and had stent placed. Saw spine surgery. No surgical plans at this time. She tried Flexeril a bit. She is planned to start cardiac rehab next week. PMHx: Past Medical History: Diagnosis Date ??? CAD [...] Left 09/27/2018 Justin De La Cruz MD [facility] INTERVENTIONL RAD Family History: Family History Problem Relation Age of Onset ??? Heart Disease Mother ??? Diabetes Mother ??? Diabetes Father ??? Cancer Neg Hx Social History: reports that she has never smoked. She has never used smokeless tobacco. She reports that she does not drink alcohol and does not use drugs. No flowsheet data found. Review of systems: [x] Review of systems otherwise negative Medications: Current Outpatient Medications on File Prior to Visit Medication Sig Dispense Refill ??? clopidogreL (Plavix) 75 mg Tablet Take 1 tablet by mouth daily. 90 tablet 3 ??? rosuvastatin (Crestor) 40 mg Tablet Take 1 tablet by mouth every evening. 90 tablet 3 ??? insulin regular human U-500 (HumuLIN R U-500, Conc, Kwikpen) 500 unit/mL (3 mL) Insulin Pen Take 10 units with breakfast, 5 units at lunch and 10 units at bedtime ??? metoprolol succinate XL (Toprol-XL) 50 mg Tablet Sustained Release 24 hr Take 1 tablet by mouthdaily. 30 tablet 12 ??? dulaglutide (Trulicity) 1.5 mg/0.5 mL Pen Injector Inject 0.5 mLs subcutaneously once a week. Indications: type 2 diabetes mellitus 2 mL 11 ??? nitroGLYcerin (Nitrostat) 0.4 mg Tablet, Sublingual Place 1 tablet under the tongue every 5 minutes as needed for Chest pain. 25 tablet PRN ??? albuteroL 90 mcg/actuation HFA Aerosol Inhaler Every 4 hours. ??? olmesartan (BENICAR) 20 mg Tablet Daily. ??? pantoprazole EC (Protonix) 20 mg Tablet, Delayed Release (E.C.) Daily. ??? cyclobenzaprine (Flexeril) 5 mg Tablet Take 1 tablet by mouth nightly. 30 tablet 11 ??? ondansetron (ZOFRAN-ODT) 4 mg Tablet, Rapid Dissolve DISSOLVE ONE TABLET ON THE TONGUE EVERY 8 HOURS NEEDED FOR NAUSEA VOMITING 0 ??? ASPIRIN ORAL Take 81 mg by mouth. No current facility-administered medications on file prior to visit. Allergies: Allergies Allergen Reactions ??? Iodine And Iodide Containing Products Anaphylaxis ??? Codeine Phosphate Nausea And Vomiting ??? Meperidine Hcl Nausea And Vomiting Nausea/Vomiting ??? Morphine Sulfate Nausea And Vomiting ??? Oxaprozin Nausea And Vomiting ??? Prednisone Rash CIS - Rash with dose greater than 20mg. ??? Sulindac Nausea And Vomiting EXAMINATION Vitals: There were no vitals taken for this visit. General Examination: Appearance: alert, no distress. High BMI Cardiovascular: Rate regular, S1S2 normal, + murmur Respiratory: Symmetric expansion, lungs clear to auscultation Extremity: no edema Skin: No rashes noted Neurological Examination o Higher functions: - Speech: fluent, no aphasia/dysarthria or dysphonia - Alert and oriented. o Cranial Nerves - II-XII: Pupils bilaterally equal and symmetric conjugate gaze, reacting to light. No ptosis/nystagmus. Vision normal. No field deficits. EOMI. No facial droop. Symmetric facial sensation. - Hearing loss on left side. o Reflexes - +2 Bilaterally biceps, BR , knee and diminished ankles. o Motor and Coordination - Normal tone, bulk strength and coordination of right and left sided muscles - Neck tremors + o Sensory - Normal sensations bilaterally. o Skull and Spine/ Gait - Cervical paraspinal spasm left. - Normal gait - Tandem: Minimal imbalance. LABS AND IMAGING Labs GENERAL THYROID: No results found for: TSH, S3INVGS, FREET4, TT4, THYROIDAB, THGAB FolateNo results found for: SFOLATE ESRNo results found for: SEDRATE CRPNo results found for: CRP B12No results found for: [id number] CKNo results found for: CK Angiotensin ConvertaseNo results found for: MAURICIO INFECTIONS HIVNo results found for: HIV12 HEPATITIS PANELNo results found for: HAV, HEPBSAB, HBEAG, HEPBSAG, HEPCAB AUTOIMMUNE PANEL ANANo results found for: JAMIE DSDNANo results found for: DNAABDS John results found for: DARON C3,C4, COMPLEMENTSNo results found for: C3, C4 CARDIOLIPIN, LUPUSNo components found for: CARDIOLIPINANTIBODY, LUPUS, ANTICOAGULANT CELIAC: TTG, GLIADIN, ENDOMYSIALNo components found for: TTRANSGLUTAMINASEANTIBODY ANTIGLIADINANTIBODY VASCULITIS: C,P,ANCA, MPONo results found for: PANCA, CANCA, MYELOP, PR3AB NMONo components found for: NEUROMYELITISOPTICAANTIBODY MG: ACHRAB, Anit MuSK, LEMSNo components found for: ACETYLCHOLINERECEPTORABBINDING, LEMSANTIBODY, ANTISKELETALMUSCLEANTIBODY CRYOGLOBULINSNo components found for: CRYOGLOBULINS METABOLIC CERULOPLASMINNo components found for: CERULOPLASMIN BETA 2 MICROGLOBULINNo results found for: B2MG No results found for: TPROTEINPEP, ALBELECT, ALPHA1, ALPHA2, GAMMAGLOB, APB1 CORTISOLNo results found for: CORTISOL LDH No results found for: LDH NUTRITIONAL VITAMIN DNo results found for: 25OHVITD PRE ALBUMINNo results found for: PREALBUMIN FERRITINNo results found for: IRON COPPERNo results found for: COPPER PERIPHERAL NEUROPATHY HEMOGLOBIN A1C Lab Results Component Value Date HA1C 9.2 (H) 08/30/2021 LIPID PROFILE Lab Results Component Value Date CHLPL 125 08/30/2021 HDL 29 08/30/2021 CHOLHDL 4.3 08/30/2021 TRIG 159 08/30/2021 LDLDIRECT 71 08/30/2021 MIKALA 65No results found for: HHO27VN ANTI GM1,ANTI SGPG, MAG@RESUFAST (MAGAUTOAB,SGPG,MAGWB,GM1AB)@ HEAVY METAL SCREENNo results found for: LEAD, ARSENIC METHYLMLONIC ACIDNo results found for: METHYLMAL IgA, IGG No results found for: IGA, IGG CSF PANEL No results found for: NUCCELMANCSF, RBCCSFCT, SEGSCSF, LYMPHSCSF, NUMCELLCTCSF, CSFGLUC, CSFPROTEIN, XANTHOCHROM, MCSBFTYPE, MCS, CSFIGGINDEX, LYMEAB, VDRLSCRNCSF, OLIGOCSF, HSVDNA, ARBOWNILECSF, ENTVPCR, VZVPCR PARANEOPLASTIC PANEL No results found for: PARANEOINTRP, ANNA1, ANNA2, ANNA3, AGNA1, PCA1, PCA2, PCATYPETR, AMPHIPHYSIN,OAFW7OPF, STRIATMSCLAB, CACHABPQTYPE, CACHABNTYPE, ACHRBINDAB, NEUROKCHAB, NMDARECEPTOR, CSW00RE THROMBOSIS HOMEOCYSTEINENo results found for: HOMOCYSTEINE THROMBOSIS PANELNo results found for: ACAIGM, [id number] FACTOR V LEIDEN No components found for: FACTORVLEIDEN PROTEIN C,SNo components found for: PROTEINC, PROTEINS ANTITHROMBIN IIINo components found for: ANTITHROMBINIII Miscellaneous Send outsNo results found for: MISCSENDOUT, MISCMAYO MRI Brain: Chronic microvascular disease. MRA Brain: Dimunitive R vertebral artery. MRI C spine: DJD changes with spinal cord impingement. ASSESSMENT, PLAN & RECOMMENDATIONS ASSESSMENT: 66 Y F with history of HTN, uncontrolled DM, CAD, cervical spondylosis, left hearing loss, family history of stroke referred for evaluation of repeated episode of left facial, arm and left sided numbness lasting for few minutes. On evaluation she has high BMI, mild peripheral neuropathyfeatures, hearing loss with neck spasm on left side. MRI Brain shows chronic microvascular disease.MRI C spine shows DJD changes with impingement on cord. MRA shows diminutive vertebral artery. Recently had NH needing stent placement. Saw spine surgery. No surgery planned at this time. Continues to have facial paresthesiae. IMPRESSION: Facial paresthesiae left, likely cervicogenic. Essential tremors. PLAN/RECOMMENDATIONS: ??? Her symptoms are likely cervicogenic related to vestibulo-cervical dysfunction on left side. ??? Neck PT referral given. ??? Flexeril HS for neck muscle relaxation. ??? Will consider gabapentin in future if symptoms persists. ??? Follow up in 2 months. Cody Staton MD Department of Neurology [facility] documented in this encounter Plan of Treatment Upcoming Encounters Date Type Department Care Team (Late st Contact Info) Description 01/09/2024 2:20 PM EST TH Visit (TeleHealth) [place]ematology [place] [phone] Kati Burnette MD [facility] [place] [address] 01/24/2024 9:30 AM EST Appointment XRay at [address] [place] [address] Jimmy Swann MD [facility] [place] [address] 01/24/2024 11:00 AM EST Office Visit Pain and Spine Center at [place] [phone] Regulo Wang PA [facility] [place] [address] 01/24/2024 2:45 PM EST Appointment Mammography at [address] 01/24/2024 3:45 PM EST Office Visit General Surgery at [place] [phone] Caitlyn Hirsch MD [facility] [place] [address] 03/20/2024 9:00 AM EST Office Visit Hematology [place] [phone] Ericka Forrest, [facility] [place] [address] 07/29/2024 2:00 PM EDT Office Visit Radiation Oncology at [address] [phone] Kasie Marte MD [facility] [place] [address] Scheduled Referrals Name Type Priority Associated Diagnoses Orde r Schedule Referral to Physical Therapy Outpatient Referral Routine Other spondylosis with radiculopathy, cervical region Ordered: 09/30/2021 documented as of this encounter Visit Diagnoses Diagnosis Other spondylosis with radiculopathy, cervical region documented in this encounter Care Teams Oil Change Technician Relationship Specialty Start Date End Date Haylee Baptiste MD [address] [place] [address] PCP - General 01/21/10 documented as of this encounter
--- OUTSIDE RECORDS SUMMARY | 2023-12-15 12:38 | XMS_ITS | Encounter Summary ---
Author Organization [facility] [address] Care Team Providers Care Manager Of Application Development Name Role Phone Haylee Baptiste MD Primary Care Provider [phone] Encounter Details Date Type Department Care Team (Latest Contact Info) Description 11/29/2021 10:00 AM EDT TH Visit (TeleHealth) [place] [address] Cody Staton MD [facility] [place] [address] Other spondylosis with radiculopathy, cervical region; Cervical spondylosis; Dizziness Social History Tobacco Use Types Packs/Day Years [...] Progress Notes * Cody Staton MD - 11/29/2021 10:00 AM EDT Images from the original note were not included[place] [address] 11/29/2021 Patient name: Nallely Velazquez Date of : 1955 Referring provider: Haylee Baptiste MD [address] [place] [address] HISTORY REASON FOR REFERRAL/CHIEF COMPLAINT: Facial paresthesia. 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 Non smoker. No alcohol [...] 09/30/2021: Follow up cervicogenic paresthesia She had [place] recently with cath showing LAD 90% blocked and had stent placed. Saw spine surgery. No surgical plans at this time. She tried Flexeril a bit. She is planned to start cardiac rehab next week. 11/29/2021: Video encounter Cervicogenic symptoms follow up. She has no significant changes at this time. Having exercises and traction exercises. Still has some numbness in face. Getting PT at [facility]. PMHx: Past Medical History: Diagnosis Date ??? [...] Left 09/27/2018 Justin De La Cruz MD [facility] INTERVENTIONL RAD Family History: Family History Problem [...] to Visit Medication Sig Dispense Refill ??? dulaglutide (Trulicity) 3 mg/0.5 mL Pen Injector Inject 0.5 mLs subcutaneously once a week. Indications: type 2 diabetes mellitus 6 mL 3 ??? clopidogreL (Plavix) 75 mg Tablet Take [...] tablet by mouthdaily. 30 tablet 12 ??? nitroGLYcerin (Nitrostat) 0.4 mg Tablet, Sublingual [...] GENERAL THYROID: No results found for: TSH, T5ZLBED, FREET4, TT4, THYROIDAB, THGAB FolateNo results found for: SFOLATE ESRNo results found for: SEDRATE CRPNo results found for: CRP B12No results found for: [id number] CKNo results found for: CK Angiotensin ConvertaseNo [...] 71 08/30/2021 MIKALA 65No results found for: [id number] ANTI GM1,ANTI SGPG, MAG@RESUFAST (MAGAUTOAB,SGPG,MAGWB,GM1AB)@ HEAVY METAL [...] ANNA1, ANNA2, ANNA3, AGNA1, PCA1, PCA2, PCATYPETR, AMPHIPHYSIN,OPCF3CDX, STRIATMSCLAB, CACHABPQTYPE, CACHABNTYPE, ACHRBINDAB, NEUROKCHAB, NMDARECEPTOR, EFQ30VA THROMBOSIS HOMEOCYSTEINENo results found for: HOMOCYSTEINE THROMBOSIS PANELNo results found for: ACAIGM, [id number] FACTOR V LEIDEN No components found for: [...] MRA shows diminutive vertebral artery. Recently had [place] needing stent placement. Saw spine surgery. No surgery planned at this time. Continues to have facial paresthesiae. IMPRESSION: Facial paresthesiae left, likely cervicogenic. Essential tremors. PLAN/RECOMMENDATIONS: ??? Her symptoms are likely cervicogenic related to vestibulo-cervical dysfunction on left side. ??? Continue Neck PT. ??? Flexeril HS PRN for neck muscle relaxation. ??? Can consider gabapentin in future if symptoms persists. ??? Follow up PRN Cody Staton MD Department of Neurology [facility] documented in this encounter Plan of Treatment Upcoming Encounters Date Type Department Care Team (Late st Contact Info) Description 01/09/2024 2:20 PM EST TH Visit (TeleHealth) Hematology [place] [address] Kati Burnette MD [facility] DR HEMATOLOGY [place] [address] 01/24/2024 9:30 AM EST Appointment XRay at [address] Jimmy Swann MD [facility] [place] [address] 01/24/2024 11:00 AM EST Office Visit Pain and Spine Center at [place] [address] Regulo Wang PA [facility] [place] [address] 01/24/2024 2:45 PM EST Appointment Mammography at [place] [address] 01/24/2024 3:45 PM EST Office Visit General Surgery at [address] Caitlyn Hirsch MD [facility] [place] [address] 03/20/2024 9:00 AM EST Office Visit Hematology and Oncology at [place] [phone] Ericka Forrest, [facility] DR HEMATOLOGY [place] [address] 07/29/2024 2:00 PM EDT Office Visit Radiation Oncology at [address] [phone] Kasie Marte MD [facility] [place] [address] documented as of this encounter Visit Diagnoses Diagnosis Other spondylosis with radiculopathy, cervical region Cervical spondylosis Cervical spondylosis without myelopathy Dizziness Dizziness and giddiness documented in this encounter Care Teams Manager Of Application Development Relationship Specialty Start Date End Date Haylee Baptiste MD [address] [place] [address] PCP - General 01/21/10 documented as of this encounter
--- OUTSIDE RECORDS SUMMARY | 2023-12-15 12:38 | XMS_ITS | Encounter Summary ---
Author Organization [facility] [place] [address] Care Team Providers Care Instructional Supervisor Name Role Phone Haylee Baptiste MD Primary Care Provider [phone] Reason for Referral * Diagnostic Test (Routine) - Closed Specialty Diagnoses / Procedures Referred By Mike jalloh Referred To Contact Radiology Diagnoses Osteoarthritis of cervical spine with myelopathy Procedures MRI Cervical Spine wo Contrast (Generic) MRI Cervical Spine wo Contrast (Generic) Haylee Eckert APRN [facility] [place] [address] [place] [id number] [place] [address] Referral ID Status Reason Start Date Expiration Date V isits Requested Visits Authorized [id number] Closed Specialty Service Requested 12/07/2022 06/06/2024 1 1 Encounter Details Date Type Department Care Team (Late st Contact Info) Description 12/19/2022 Orders Only [facility] [place] [address] Haylee Eckert APRN [facility] [place] [address] Osteoarthritis of cervical spine with myelopathy Social [...] (TeleHealth) Hematology and Oncology at [place] [phone] Kati Burnette MD [facility] DR [place] [address] 01/24/2024 9:30 AM EST Appointment XRay at [address] [place] [phone] Jimmy Swann MD [facility] [place] [place] [address] 01/24/2024 11:00 AM EST Office Visit Pain and Spine Center at [place] [address] Regulo Wang PA [facility] [place] [place] [address] 01/24/2024 2:45 PM EST Appointment Mammography at [place] [address] 01/24/2024 3:45 PM EST Office Visit General Surgery at [place] [phone] Caitlyn Hirsch MD [facility] [place] [address] 03/20/2024 9:00 AM EST Office Visit Hematology and Oncology at [place] [phone] Ericka Forrest, [facility] DR HEMATOLOGY AND ONCOLOGY [place] [phone] 07/29/2024 2:00 PM EDT Office Visit Radiation Oncology at [address] [phone] Kasie Marte MD [facility] [place] [address] documented as of this encounter Results * MRI Cervical Spine wo Contrast (Generic) (12/27/2022 9:22 AM EST) Anatomical Region Laterality Modality C-spine Magnetic Resonan ce Impressions 12/27/2022 2:32 PM EST Moderate central canal stenosis at C6-C7 mostly [...] questions please contact the health career services officer that requested your imaging first. ? Narrative 12/27/2022 2:32 PM EST EXAMINATION: MRI CERVICAL SPINE WO CONTRAST (GENERIC) [...] left neural foraminal narrowing. No significant change. C5-C6: Disc osteophyte complex contacts the ventral surface of the cord. Left greater than right uncovertebral and facet arthropathy contribute to mild central canal stenosis and mild left neural foraminal narrowing. No significant change. C6-C7: Central disc extrusion with 8 mm cranial migration, slightly increased from the comparison examination. Along with uncovertebral and facet arthropathy, buckling of the ligamentum flavum the findings contribute to moderate central canal stenosis and moderate left neural foraminal narrowing. Mild flattening of the cord. No significant interval change. C7-T1: Normal Procedure Note Bj Garza MD - 12/27/2022 EXAMINATION: MRI CERVICAL SPINE WO CONTRAST (GENERIC) CLINICAL HISTORY: Myelopathy, chronic, cervical spine r/o progression of known cord compression TECHNIQUE: MRI of the cervical spine performed without intravenous contrastadministration. COMPARISON: MRI cervical spine 06/29/2021 FINDINGS: Alignment is normal. The vertebral bodies are normal in height andmarrow signal. The cervical cord is normal in signal. No prevertebral orperivertebral soft tissue abnormalities. C2-C3: Normal. No disc herniation, canal stenosis or neural foraminalnarrowing. C3-C4: Mild uncovertebral arthropathy. No canal stenosis or neuralforaminal narrowing. No significant change. C4-C5: Discussed effect complex contacts the ventral surface of the cord.Mild uncovertebral and facet arthropathy. Mild flattening of the cord.Moderate central canal stenosis and mild left neural foraminal narrowing. Nosignificant change. C5-C6: Disc osteophyte complex contacts the ventral surface of the cord.Left greater than right uncovertebral and facet arthropathy contribute tomild central canal stenosis and mild left neural foraminal narrowing. Nosignificant change. C6-C7: Central disc extrusion with 8 mm cranial migration, slightlyincreased from the comparison examination. Along with uncovertebral and facetarthropathy, buckling of the ligamentum flavum the findings contribute to moderatecentral canal stenosis and moderate left neural foraminal narrowing. Mildflattening of the cord. No significant interval change. C7-T1: Normal IMPRESSION Moderate central canal stenosis at C6-C7 mostly due to unchanged discextrusion. No interval progression of canal narrowing or neural foraminalnarrowing. Thank you for letting us participate in the care of this patient. If youare a health care provider and have any questions regarding this report,please contact the number below. For patients who have questions please contactthe health career services officer that requested your imaging first. 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
--- OUTSIDE RECORDS SUMMARY | 2023-12-15 12:38 | XMS_ITS | Encounter Summary ---
Author Organization [facility] Address [facility] [place] [address] Care Team Providers Care Hands Hanger Name Role Phone Haylee Baptiste MD Primary Care Provider [phone] Encounter Details Date Type Department Care Team (Late st Contact Info) Description 01/25/2023 3:00 PM EST Office [place] [address] Tom Anna, [facility] [place] [address] Type 2 diabetes mellitus with hyperglycemia, with long-term current use of insulin Social History Tobacco Use Types Packs/Day Years Used Date Smoking Tobacco: Never Smokeless Tobacco: Never Alcohol Use Standard Drinks/Week Comments No 0 (1 standard drink = 0.6 oz pur e alcohol) [facility] Inpatient Questions Answer Date Recorded [...] Sign Reading Time Taken Comments Blood Pressure 129/67 01/25/2023 2:46 PM EST Pulse 89 01/25/2023 2:46 PM EST Temperature 36.1 ??C (97 ??F) 01/25/2023 2:46 PM EST Respiratory Rate - - Oxygen Saturation 100% 01/25/2023 2:46 PM EST Inhaled Oxygen Concentration - - Weight 74.6 kg (164 lb 6.4 oz) 01/25/2023 2:46 P M EST Height 157.5 cm (5' 2) 01/25/2023 2:46 PM EST Body Mass Index 30.07 01/25/2023 2:46 PM EST documented in this encounter Patient Instructions * Patient Instructions* Tom Anna DO - 01/25/2023 3:00 PM EST Plan: 1. Will increase U-500 dosing 20 units q breakfast, 10 units q lunch, and 25 units q dinner. If notcontrolled can plan to increase dinner dose until fasting BG consistently < 200 as first goal. Will DC levemir qHs 2. Blood glucose monitoring - continue Libre2, CGM reviewed today 3. Diet - low fat/low carb diet 4. Exercise - weight-bearing exercise 30 min/day, as tolerated 5. Increase Trulicity to 4.5mg weekly 6. Repeat A1c in 3 months, will also order urine microalbumin / cr, lipid panel, and hepatic function panel 7. F/u in 3 months documented in this encounter Progress Notes * Tom Anna DO - 01/25/2023 3:00 PM EST Endocrine Outpatient Visit Date of Consultation: 01/25/2023 Consult Requested by: PCP Reason for Consultation: [...] 3.0mg weekly, U-500 dose adjusted to 25/11/14. Interval History: Patient appears to have been somewhat lost [...] but does not feel well below 100. Diagnosed with T2DM at the age of 46 Current home regimen: 20/11/14 units bid U-500, trulicity 3.0mg weekly, insulin levemir 10 units qHs BG Monitoring: Libre2 (patient emailed invitation today) CGM reviewed: CGM active 54% of time (patient was inpatient during some of this time) TIR 10%, High 52%, very high 38% GMI 9.3% CV: 29.1% Most recent HgA1C on 01/2023 9.6% Typical Diet: 3 meals and 1-2 snacks a day Breakfast- oatmeal glass of milk Lunch- balogna sandwich Supper- kfc and mashed potatoes Snacks - one pudding Trouble with hypoglycemia: Not in past few months Hypoglycemia unawareness: no Family h/o DM: mother and father both with T1DM Injection site: abdomen Recent admission with DKA: no Diabetes Complications Status: Eyes: no h/o diabetic retinopathy Kidneys: CKD II-III Feet: No known neuropathy Cardiac: NSTEMI Prevention: Last eye check December 20, cataracts no DR last microalbumin: none in chart last Cr: 1.01 (01/2023 last lipid panel: 08/30/21 LDL 71 regular process safety management engineer: no, but foot exam checked by PCP 1 month ago ACEi: yes ASA: yes Statin: yes ROS: 12 Point ROS negative except for what has been documented above PMH Past Medical History: Diagnosis Date CAD (coronary artery disease) Cervical radiculopathy at C7 CKD (chronic kidney disease) stage 3, GFR 30-59 ml/min Diabetes mellitus GERD (gastroesophageal reflux disease) Hiatal hernia HLD (hyperlipidemia) Hypertension Current Medications: Scheduled Meds: Continuous Infusions: PRN Meds:. Allergy: Allergies Allergen Reactions Amlodipine Other Reaction(s): [...] past 24 hrs: Temp Pulse BP SpO2 01/25/23 1446 36.1 ??C (97 ??F) 89 129/67 100 % Physical Exam: Gen: WDWN F in [...] further management of type 2 DM. # Poorly Controlled 2 DM with CAD Patient presents > 1 year after last visit with me to discuss her diabetes care. She is currently on a somewhat odd regimen of both U-500 and levemir qHs, as well as trulicity 3.0mg weekly. I discussed with patient that I typically would not recommend giving these two insulin types together, as the U-500 serves as both long-acting and short acting insulin. I would prefer we either switch to a true basal + bolus regimen, or continue with U-500 tid ac and adjust dose from there. She preferred to stay on U-500. Given her Alonzo report, I do think she has significant hyperglycemia after breakfast and dinner, with some decrease in BG after lunch. I do think she needs increase in her am and pm U-500 dose. I also think we may get some small benefit from increasing Trulicity to 4.5mg weekly, though patient will let me know if she cannot tolerate dose increase. We did talk about possibility ofadding SGLT2 at next visit but patient has some recurrent yeast issues which I think would be worsened by the medication. Plan: 1. Will increase U-500 dosing 20 units q breakfast, 10 units q lunch, and 25 units q dinner. If notcontrolled can plan to increase dinner dose until fasting BG consistently < 200 as first goal. Will DC levemir qHs 2. Blood glucose monitoring - continue Libre2, CGM reviewed today 3. Diet - low fat/low carb diet 4. Exercise - weight-bearing exercise 30 min/day, as tolerated 5. Increase Trulicity to 4.5mg weekly 6. Repeat A1c in 3 months, will also order urine microalbumin / cr, lipid panel, and hepatic function panel 7. F/u in 3 months We have reviewed our plan outlined [...] patient. Daisy Anna PGY5, Endocrinology Fellow Pager: [phone] * Ramila Gomez MD - 01/25/2023 3:00 PM EST Patient seen and case discussed with Dr. Anna. I agree with the assessment and plan as documented and was involved in all medical decision making, with the following addendum: CGM data personally reviewed and agree with adjusting U-500 as described and can increase Trulicity further to 4.5 mg/week. Ramila Gomez MD [employer] Weighterprofessor/nurse anesthetist Endocrinology Section [facility] documented in this encounter Plan of Treatment Upcoming Encounters Date Type Department Care Team (Late st Contact Info) Description 01/09/2024 2:20 PM EST TH Visit (TeleHealth) [place]ematology [place] [address] Kati Burnette MD [facility] HEMATOLOGY [place] [address] 01/24/2024 9:30 AM EST Appointment XRay at [address] [place] [phone] Jimmy Swann MD [facility] [place] [address] 01/24/2024 11:00 AM EST Office Visit [facility] [place] [address] Regulo Wang PA [facility] [place] [address] 01/24/2024 2:45 PM EST [place]oint[place] [address] 01/24/2024 3:45 PM EST Office Visit General Surgery at [place] [phone] Caitlyn Hirsch MD [facility] [place] [address] 03/20/2024 9:00 AM EST Office Visit Hematology [place] [address] Ericka Forrest, [facility] DR HEMATOLOGY [place] [address] 07/29/2024 2:00 PM EDT Office Visit Radiation Oncology at [address] [phone] Kasie Marte MD [facility] [place] [address] Scheduled Orders Name Type Priority Associated Diagnoses Orde r Schedule Hemoglobin A1c Lab Routine Type 2 diabetes mellitus with hyperglycemia, with long-term current use of insulin Expected: 04/26/2023, Expires: 10/26/2023 Lipid Panel (Reflex Direct LDL) Lab Routine Type 2 diabetes mellitus with hyperglycemia, with long-term current use of insulin Expected: 04/26/2023 (Approximate), Expires: 10/26/2023 U Albumin/Cre Ratio Lab Routine Type 2 diabetes mellitus with hyperglycemia, with long-term current use of insulin Expected: 04/26/2023, Expires: 10/26/2023 Hepatic Function Panel Lab Routine Type 2 diabetes mellitus with hyperglycemia, with long-term current use of insulin Expected: 04/26/2023, Expires: 10/26/2023 documented as of this encounter Visit Diagnoses Diagnosis Type 2 diabetes mellitus with hyperglycemia, with long-term current use of insulin documented in this encounter Care Teams Hands Hanger Relationship Specialty Start Date End Date Haylee Baptiste MD [address] [place] [address] PCP - General 01/21/10 documented as of this encounter
--- OUTSIDE RECORDS SUMMARY | 2023-12-15 12:38 | XMS_ITS | Encounter Summary ---
[place] [address] Care Team Providers Care Materials Scheduler Name Role Phone Haylee Baptiste MD Primary Care Provider [phone] Reason for Visit * Auth/Cert (Routine) Specialty Diagnoses / Procedures Referred By Mike jalloh Referred To Contact Diagnoses Cervical myelopathy Cervical myelopathy Procedures PRO ARTHRODESIS, ANT INTERBODY,DECOMPRESSION; CERVICAL BELOW C2 PRO ANTERIOR INSTRUMENTATION 2-3 VERTEBRAL SEGMENTS PRO INSERT BIOMCHN DEV INTERVERTEBRAL DSC SPC W/ARTHRD OPTIME, IMPLANTABLE/INSERTABLE DEVICE, NOC OPTIME, ANCHOR/SCREW FOR OPPOSING BN-TO-BN OR SOFT [id number] (IMPLANTABLE) ARTHRODESIS, ANT INTERBODY,DECOMPRESSION; CERVICAL BELOW C2 (WRVU 25) ANT. SPINAL INSTRUMENTATION, 2-3 VERTEBRA, SEGMENTED (WRVU 11.94) INSERTION INTERBODY BIOMECH DEV TO INTERVEBRAL DISC SPACE, EA INTERSPACE (WRVU 4.25) MODIFIER CORNERSTONE MODIFIER C6 MODIFIER C7 Jimmy Martinez MD [facility] [place] [address] [facility] Referral ID Status Reason Start Date Expiration Date Visits Re quested Visits Authorized [id number] 1 1 Encounter Details Date Type Department Care Team (Late st Contact Info) Description 01/18/2023 7:30 AM EST - 01/18/2023 11:15 AM EST Surgery [place] [address] Jimmy Martinez MD [facility] [place] [address] ARTHRODESIS, ANT INTERBODY,DECOMPRESSIO N; CERVICAL BELOW C2 (WRVU 25) Social History Tobacco Use Types Packs/Day Years [...] Sign Reading Time Taken Comments Blood Pressure 150/79 01/18/2023 11:15 AM EST Pulse 70 01/18/2023 11:15 AM EST Temperature 36.8 ??C (98.2 ??F) 01/18/2023 11:[address] Respiratory Rate 12 01/18/2023 11:15 AM EST Oxygen Saturation 99% 01/18/2023 11:15 AM EST Inhaled Oxygen Concentration - - Weight 75.8 kg (167 lb) 01/18/2023 6:31 AM EST Height 157.5 cm (5' 2) 01/18/2023 6:31 AM EST Body Mass Index 30.54 01/18/2023 6:31 AM EST documented in this encounter Discharge Summaries * Nelida Cunningham P, DEPUTY CLERK - 01/18/2023 10:30 AM EST Discharge Summary Patient Name: Nallely Velazquez Patient Age: 68 y.o. Language: Syrian Race: White Ethnicity: Not nor Admit date: 01/18/2023 Discharge date and time: 01/19/2023 Attending Physician: Jimmy Martinez MD Discharge Physician: Jimmy Martinez MD Follow-up Recommendations for Providers: Referral has been placed with [facility] Diabetes Nurse Specialist and [facility] Endocrinology for follow-up evaluation and management of diabetes in setting of current A1c of 9.6. Will continue usual home diabetes regimen until seen by Diabetes Nurse Specialist and [facility] Endocrinology. See discharge instructions for additional details. Future Appointments Date Time Provider Department Center 01/25/2023 3:00 PM Tom Anna DO [facility] 02/08/2023 12:45 PM Britt Mohan RN [facility] 02/16/2023 12:15 PM [facility] DX ROOM 1 MH Xray [facility] Rad 02/16/2023 1:00 PM Jimmy Martinez MD [facility] Pain Sp [facility] Inpatient Provider Contact Information: Jimmy Martinez MD Spine Center: [phone] After hours and weekends, call [facility] Spinning Lathe Operator, , and have the Orthopedic resident [...] with long-term current use of insulin Hypertension assisted current use of antithrombotics/antiplatelets Prinzmetal angina Operations/Major [...] The patient was instructed to wear a [place] J at all times. These parameters were [...] of 9.6. Recommendations received from Diabetes Management RN CLINICAL APPEALS for referral to [facility] Diabetes Nurse SpecialistASAP and referral for [facility] Endocrinology (seen there before) for ongoing management of Diabetes in order to facilitate post-op healing. Diabetes Management RN CLINICAL APPEALS: 01/18/23 Assessment: Patient is a 68 y.o. [...] care for your patient Anisa Hernandez APRN [facility] Endocrinology Diabetes Management Pager [phone] Vital Signs at Discharge: Weight: Wt Readings [...] wbc, hgb, hct plt Recent Labs 01/19/23 0039 WBC 13.3* HGB 12.7 HCT 37.3 PLATELET 265 Last 3 Lytes Recent Labs 01/19/23 0039 01/18/23 1310 NA 138 135 K 4.1 [...] who have questions please contact the health acute care physician that requested your imaging first. Cervical Spine 1 View Result Date: 01/18/2023 [...] who have questions please contact the health acute care physician that requested your imaging first. Cervical Spine 1 View Result Date: 01/18/2023 [...] who have questions please contact the health acute care physician that requested your imaging first. DOC: TELEMETRY STRIPS Result Date: 01/18/2023 Ordered [...] pro fessional that requested your imaging first. Cervical Spine AP Flexion & Extension Only [...] who have questions please contact the health acute care physician that requested your imaging first. Pending Studies and Lab Data at Discharge: [...] puff Refills: 0 fluticasone propionate 50 mcg/actuation Shipman, Suspension Commonly known as: Flonase 1 spray [...] them. 3. You should also take an shav-cnr-vhrnlga stool softener or laxative, such as Nathaly-colace [...] please contact the Spine Center Prescription Lineat [phone]. PRESCRIPTION RENEWAL REQUESTS CAN TAKE UP TO 3 DAYS TO FILL. Be sure to allow for this when requesting a new prescription. The new prescription will be sent electronically to your preferred pharmacy. 5. You may resume your daily Aspirin 3 days after surgery, 01/21/23. Diabetes: Resume usual Diabetes home regimen. A referral has been placed with [facility] Diabetes Nurse Educator and [facility] Endocrinology for close follow-up management of diabetes. [...] has completely healed. PLEASE CALL US AT [phone] TO SPEAK WITH A SPINE CENTER NURSE [...] Numbers: Clinical issues, nurse questions, medication renewals: [phone] Martinez: [phone] Evenings after 5pm and weekends you may contact the Orthopaedic resident information manager: [phone], askthe steam frame operator to page the Orthopaedic resident Follow Up Appointments: Because of your elevated hemoglobin A1c, a referral has been placed with [facility] Diabetes Nurse Educator and [facility] Endocrinology for close follow-up management of diabetes. You will be called with an appointment time for these appointments. Healing can be more difficult if your blood sugar/A1c is out of control. 2. You will have follow-up appointments at [facility] as indicated in the ???Future Appointments and [...] on the next business day. Please call [phone] if you do not hear from us by that time, as your timely follow-up is very important to us. Future Appointments Date Time Provider Department Center 01/25/2023 3:00 PM Tom Anna DO [facility] ENDO [facility] 02/08/2023 12:45 PM Britt Mohan, JAY [facility] 02/16/2023 12:15 PM [facility] DX ROOM 1 MH Xray [facility] Rad 02/16/2023 1:00 PM Jimmy Martinez MD [facility] Pain Sp [facility] General Instructions None Future Appointments and Orders Future Appointments and Orders Future Appointments Provider Department Dept Phone 01/25/2023 3:00 PM Tom Anna DO; [facility] ENDOCRINOLOGY PRECEPTOR Endocrinology at [facility] Arrive at: [facility] [phone] 02/08/2023 12:45 PM Britt Mohan, dry sand molder at [facility] Arrive at: [facility] [phone] 02/16/2023 12:15 PM [facility] DX ROOM 1 XRay at [facility] Arrive at: [facility] [phone] Please go to [facility] ([place] Location). 02/16/2023 1:00 PM Jimmy Martinez MD Pain and Spine Center at [facility] Arrive at: [facility] [phone] Future Orders Complete By Expires Referral to [...] No Primary Care Provider: Haylee Baptiste MD [phone] Discharge References/Attachments None documented in this encounter Discharge Instructions * Patient Instructions* Nelida Cunningham, DEPUTY CLERK - 01/18/2023 10:30 AM EST Activity: 1. [...] them. 3. You should also take an zolg-pwz-etpdgjp stool softener or laxative, such as Nathaly-colace [...] please contact the Spine Center Prescription Lineat [phone]. PRESCRIPTION RENEWAL REQUESTS CAN TAKE UP TO 3 DAYS TO FILL. Be sure to allow for this when requesting a new prescription. The new prescription will be sent electronically to your preferred pharmacy. 5. You may resume your daily Aspirin 3 days after surgery, 01/21/23. Diabetes: Resume usual Diabetes home regimen. A referral has been placed with [facility] Diabetes Nurse Educator and [facility] Endocrinology for close follow-up management of diabetes. [...] has completely healed. PLEASE CALL US AT [phone] TO SPEAK WITH A SPINE CENTER NURSE [...] Numbers: Clinical issues, nurse questions, medication renewals: [phone] Martinez: [phone] Evenings after 5pm and weekends you may contact the Orthopaedic resident information manager: [phone], askthe steam frame operator to page the Orthopaedic resident Follow Up Appointments: Because of your elevated hemoglobin A1c, a referral has been placed with [facility] Diabetes Nurse Educator and [facility] Endocrinology for close follow-up management of diabetes. You will be called with an appointment time for these appointments. Healing can be more difficult if your blood sugar/A1c is out of control. 2. You will have follow-up appointments at [facility] as indicated in the ???Future Appointments and [...] on the next business day. Please call [phone] if you do not hear from us by that time, as your timely follow-up is very important to us. Future Appointments Date Time Provider Department Center 01/25/2023 3:00 PM Tom Anna DO [facility] ENDO [facility] 02/08/2023 12:45 PM Britt Mohan RN [facility] 02/16/2023 12:15 PM [facility] DX ROOM 1 Xray [facility] Rad 02/16/2023 1:00 PM Jimmy Martinez MD [facility] Pain Sp [facility] documented in this encounter Medications at Time [...] daily. 03/15/2022 fluticasone propionate (Flonase) 50 mcg/actuation Shipman, Suspension 1 spray by Each Nare route [...] of this encounter Progress Notes * Celia Harvey RN - 01/19/2023 12:39 PM EST [facility] Short Stay Unit Discharge Note All relevant discharge milestones have been met by the patent. After Visit Summary and discharge teaching reviewed with the patient. IV access has been discontinued. All personal belongings have been returned to the patient/family upon their departure from the unit. Patient has been discharged to home The patient has been discharged without VNA services. * Judy Lopez, PT - 01/19/2023 8:45 AM EST Physical [...] Left 09/27/2018 Justin De La Cruz MD [facility] INTERVENTIONL RAD PRO ANTERIOR INSTRUMENTATION 2-3 VERTEBRAL SEGMENTS Midline 01/18/2023 ANT. SPINAL INSTRUMENTATION, 2-3 VERTEBRA, SEGMENTED (WRVU 11.94) performed by Jimmy Martinez MD at [facility] MAIN OR PRO ARTHRODESIS, ANT INTERBODY,DECOMPRESSION; CERVICAL BELOW C2 Midline 01/18/2023 ARTHRODESIS, ANT INTERBODY,DECOMPRESSION; CERVICAL BELOW C2 (WRVU 25) performed by Jimmy Martinez MD at [facility] MAIN OR PRO INSERT BIOMCHN DEV INTERVERTEBRAL DSC SPC W/ARTHRD Midline 01/18/2023 INSERTION INTERBODY BIOMECH DEV TO INTERVEBRAL DISC SPACE, EA INTERSPACE (WRVU 4.25) performed by Jimmy Martinez MD at [facility] MAIN OR Social History: Patient lives with . 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 Pt verbalizes anddemonstrates understanding. Assessment: Nallely Velazquez was seen today for physical therapy evaluation. [...] (P) 23 minutes, Judy Lopez, PT Pager: [phone] Physical Therapy Inpatient Rehabilitation Department 2017 PT [...] with long-term current use of insulin Hypertension terminologist current use of antithrombotics/antiplatelets Prinzmetal angina MEDICATIONS: [...] ??C (98.6 ??F)] Heart Rate: [65-72] Resp: [-] BP: (108-157)/(59-87) Intake/Output Summary (Last 24 hours) [...] DSD x 7 days Antibiotics: Periop Ancef Dave Bal MD 01/19/2023 Future Appointments Date Time Provider Department Center 02/16/2023 12:15 PM [facility] DX ROOM 1 Xray [facility] Rad 02/16/2023 1:00 PM Jimmy Martinez MD [facility] Pain Sp [facility] Spine Attending I have seen and examined [...] with long-term current use of insulin Hypertension assisted current use of antithrombotics/antiplatelets Prinzmetal angina MEDICATIONS: [...] Time Provider Department Center 02/16/2023 12:15 PM [facility] DX ROOM 1 MH Xray [facility] Rad 02/16/2023 1:00 PM Jimmy Martinez MD [facility] Pain Sp [facility] documented in this encounter H&P Notes * [...] Miscellaneous Notes * Initial Assessments - Angus Sanabria, OT - 01/19/2023 9:00 AM EST Occupational [...] Left 09/27/2018 Justin De La Cruz MD [facility] INTERVENTIONL RAD PRO ANTERIOR INSTRUMENTATION 2-3 VERTEBRAL SEGMENTS Midline 01/18/2023 ANT. SPINAL INSTRUMENTATION, 2-3 VERTEBRA, SEGMENTED (WRVU 11.94) performed by Jimmy Martinez MD at [facility] MAIN OR PRO ARTHRODESIS, ANT INTERBODY,DECOMPRESSION; CERVICAL BELOW C2 Midline 01/18/2023 ARTHRODESIS, ANT INTERBODY,DECOMPRESSION; CERVICAL BELOW C2 (WRVU 25) performed by Jimmy Martinez MD at [facility] MAIN OR PRO INSERT BIOMCHN DEV INTERVERTEBRAL DSC SPC W/ARTHRD Midline 01/18/2023 INSERTION INTERBODY BIOMECH DEV TO INTERVEBRAL DISC SPACE, EA INTERSPACE (WRVU 4.25) performed by Jimmy Martinez MD at [facility] MAIN OR Social History: Patient lives with . 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 Nallely Drew Michaelyanci Caroline presents with the following performance skill deficits [...] time . Total Minutes, Occupational Therapy: 25 (0532-5543) 2017 OT Evaluation Code Rationale: Diagnosis & [...] and measurable assessment of functional outcome. Pager: [phone] Angus Sanabria OTR/L, SCRAP STRIPPER HAND Occupational Therapy Rehabilitation Department * Consult Note - Anisa Hernandez Sharri, DERRICK - 01/18/2023 12:32 PM EST Diabetes Management Team Inpatient Consult Date of Consultation: 01/18/2023 Consult Requested by: ortho Reason for Consultation: Nallely Velazquez is a 68 y.o. female with PMH significant for T2DM who was admitted on 01/18/2023 currently being treated for S/p C6-7 ACDF . We are being consulted to assist with diabetes management and to provide a review of long term care social worker diabetes care. Diabetes History: Nallely Velazquez has [...] care for your patient Anisa Hernandez APRN [facility] Endocrinology Diabetes Management Pager [phone] minutes of this 80 minute visit was spent with the patient in counseling on diabetes and treatment plan, reviewing all glucose and insulin data as well as relevant laboratory results with the patient, and coordination of care on the inpatient unit * Brief Op Note - Jimmy Martinez MD - 01/18/2023 10:19 AM EST Brief Operative Note Patient Name: Nallely Velazquez : [id number] MR#: [id number] Case Date: 01/18/2023 Surgeon: Surgeon(s) and Role: * Jimmy Martinez MD - Primary * Dave Bal MD - Resident - Assisting Preoperative diagnosis: Cervical myelopathy Postoperative diagnosis: Cervical myelopathy Procedure: C3-C4 ACDF with anterior plate and intervertebral device (09127, 89402, 52981) Anesthesia: General Findings: There was a left [...] Martinez MD - 01/18/2023 8:15 AM EST [facility] Operative Note Patient Name: Nallely Velazquez : [id number] MR#: [id number] Case Date: 01/18/2023 Surgeon: Surgeon(s) and Role: * Jimmy Martinez MD - Primary * Dave Bal MD - Resident - Assisting Preoperative diagnosis: Cervical myelopathy Postoperative diagnosis: Cervical myelopathy Procedure: 1. C6-C7 anterior cervical discectomy and fusion 2. Anterior cervical plating C6-C7 3. Application of intervertebral device C6-C7 Implants: Globus Jones plate and Medtronic Cornerstone intervertebral device Anesthesia: [...] on the anterior aspect of the spine. Linux Programmer holes were created using 12 mm drill [...] TH Visit (TeleHealth) [place] [address] Kati Burnette MD [facility] [address] HEMATOLOGY [place] [address] 01/24/2024 9:30 AM EST Appointment XRay at [address] [place] [phone] Jimmy Martinez MD [facility] [place] [address] 01/24/2024 11:00 AM EST Office Visit [place] [address] Regulo Wang PA [facility] [place] [address] 01/24/2024 2:45 PM EST Appointment Mammography at [place] [phone] 01/24/2024 3:45 PM EST Office [place] [address] Caitlyn Hirsch MD [facility] [place] [address] 03/20/2024 9:00 AM EST Office Visit Hematology [place] [address] Ericka Forrest [facility] [address] HEMATOLOGY [place] [address] 07/29/2024 2:00 PM EDT Office Visit Radiation Oncology at [address] [address] Kasie Marte MD [facility] DR [place] [address] Scheduled Referrals Name Type Priority Associated Diagnoses [...] Insert Biomchn Dev Intervertebral Dsc Spc W/Arthrd (51365) 01/18/2023 7:35 AM EST Cervical myelopathy Anterior Instrumentation 2-3 Vertebral Segments (50358) 01/18/2023 7:35 AM EST Cervical myelopathy Arthrodesis, Ant Interbody,Decompression ; Cervical Below C2 (94605) 01/18/2023 7:35 AM EST Cervical myelopathy POCT [...] Glucose, POC 271(H) 65 - 199 mg/dL [facility] Comment: Supplemental ranges: <140 mg/dL before meals <180 mg/dL all other times of the day Blood 01/19/2023 12:1 0 PM EST 01/19/2023 12:10 PM EST Jimmy Martinez MD POINT OF CARE TEST O REBEL Performing Organization Address [facility] Co de Phone Number [facility] [place] [address] * POCT Glucose (01/19/2023 7:16 AM EST) Glucose, POC 156 65 - 199 mg/dL [facility] Comment: Supplemental ranges: <140 mg/dL before meals <180 mg/dL all other times of the day Blood 01/19/2023 7:16 AM EST 01/19/2023 7:16 AM EST Jimmy Martinez MD POINT OF CARE TEST O REBEL Performing Organization Address [facility] Co de Phone Number [facility] [place] [address] * POCT Glucose (01/19/2023 3:58 AM EST) Glucose, POC 167 65 - 199 mg/dL [facility] Comment: Supplemental ranges: <140 mg/dL before meals <180 mg/dL all other times of the day Blood 01/19/2023 3:58 AM EST 01/19/2023 3:58 AM EST Jimmy Martinez MD POINT OF CARE TEST O RDERABLES [facility] [place] [place] [address] * (ABNORMAL) Differential, Automated (01/19/2023 12:39 AM EST) Pathologist [facility] Neutrophil % 80.4 % [facility] Neutrophil Absolute 10.67(H) 1.70 - 6.10 x10(3)/mc L [facility] Lymph % 12.1 % [facility] Lymphocytes Abs 1.6 0.9 - 3.2 x10(3)/mc L [facility] Monocyte % 4.3 % [facility] Monocyte Abs 0.6 0.3 - 0.9 x10(3)/mc [facility] Eos % 2.4 % [facility] Eosinophils Abs 0.3 0.0 - 0.4 x10(3)/ L [facility] Basophil % 0.4 % [facility] Baso Absolute 0.0 0.0 - 0.1 x10(3)/ L [facility] Immature Gran % 0.40 % [facility] Comment: Immature granulocytes(IG's)percentage and absolute count will include metamyelocytes, myelocytes, and promyelocytes. Blood smears from CBCs yielding IG's will be scanned manually for concordance. If this scan disagrees with the automated IG or if promyelocytes are noted, a manual differential will be performed. Immature Gran Absolute 0.05(H) 0.00 - 0.04 x10(3)/mc L [facility] Blood 01/19/2023 12:3 9 AM EST 01/19/2023 12:53 AM EST Narrative Resulting Agency Comment Spec In Lab Dave Bal MD HEMATOLOGY ORDER MIRTA [facility] [place] [address] * (ABNORMAL) Hemogram (01/19/2023 12:39 AM EST) White Blood Cell 13.3(H) 4.0 - 9.5 x10(3)/mc L [facility] Red Blood Cell 4.37 4.00 - 5.21 x10(6)/mc L [facility] Hemoglobin 12.7 11.7 - 15.5 g/dL [facility] Hematocrit 37.3 35.7 - 45.8 % [facility] Mean Cell Volume 85.4 82.6 - 94.4 fL [facility] Mean Cell Hemoglobin 29.1 27.1 - 32.0 pg [facility] Mean Cell Hemoglobin Concentration 34.0 31.7 - 35.0 g/dL [facility] Platelet 265 145 - 357 x10(3)/mc L [facility] RDW Standard Deviation 39.2 37.0 - 46.0 fL [facility] RDW coefficient of variation 12.6 11.5 - 14.1 % [facility] Mean Platelet Volume 11.0 7.6 - 12.9 fL [facility] NRBC% auto 0.0 % [facility] NRBC Absolute 0.000 0.000 - 0.000 x10(3)/mc L [facility] Blood 01/19/2023 12:3 9 AM EST 01/19/2023 12:53 AM EST Narrative Resulting Agency Comment Spec In Lab Dave Bal MD HEMATOLOGY ORDER MIRTA [facility] [place] [address] * Basic Metabolic Panel (non-fasting) (01/19/2023 12:39 AM EST) Glucose 172 65 - 199 mg/dL [facility] Comment:Diabetes: >=200 mg/d L plus symptoms Blood Urea Nitrogen 15 8 - 18 mg/dL [facility] Creatinine 1.01 0.70 - 1.20 mg/dL [facility] Sodium 138 135 - 145 mmol/L [facility] Potassium 4.1 3.5 - 5.0 mmol/L [facility] Comment: Please note: ??Patients with WBC >100,000 may have falsely elevated Potassium levels. ??For accurate Potassium quantification in these patients send serum separator tube (gold top) for subsequent determinations. ??Contact the Clinical Chemistry Laboratory if there are any questions. Chloride 107 98 - 107 mmol/L [facility] Carbon Dioxide 22 22 - 31 mmol/L [facility] Anion Gap 9 5 - 15 mmol/L [facility] Calcium 8.5 8.5 - 10.5 mg/dL [facility] Est Glomerular Filtration Rate 60 >=60 mL/min/1. 73 m?? [facility] Comment: This patient's estimated GFR was [...] In Lab Jimmy Martinez MD CHEMISTRY ORDERABLES [facility] [place] [address] * (ABNORMAL) POCT Glucose (01/19/2023 12:28 AM EST) Glucose, POC 200(H) 65 - 199 mg/dL [facility] Comment: Supplemental ranges: <140 mg/dL before meals <180 mg/dL all other times of the day Blood 01/19/2023 12:2 8 AM EST 01/19/2023 12:28 AM EST Jimmy Martinez MD POINT OF CARE TEST O RDROBERTO Performing Organization Address [facility] Co de Phone Number [facility] [place] [address] * POCT Glucose (01/18/2023 7:36 PM EST) Glucose, POC 174 65 - 199 mg/dL [facility] Comment: Supplemental ranges: <140 mg/dL before meals <180 mg/dL all other times of the day Blood 01/18/2023 7:36 PM EST 01/18/2023 7:36 PM EST Jimmy Martinez MD POINT OF CARE TEST O REBEL Performing Organization Address [facility] Co de Phone Number [facility] [place] [address] * POCT Glucose (01/18/2023 5:26 PM EST) Glucose, POC 170 65 - 199 mg/dL [facility] Comment: Supplemental ranges: <140 mg/dL before meals <180 mg/dL all other times of the day Blood 01/18/2023 5:26 PM EST 01/18/2023 5:26 PM EST Jimmy Martinez MD POINT OF CARE TEST O REBEL Performing Organization Address [facility] Co de Phone Number [facility] [place] [address] * XR Cervical Spine 2 or 3 [...] who have questions please contact the health acute care physician that requested your imaging first. ? Narrative [...] patients who have questions please contactthe health acute care physician that requested your imaging first. Jimmy Martinez MD IMG DX ORDERABLES * EKG 12 Lead (01/18/2023 2:11 PM EST) Ventricular rate 70 BPM MUSE SYSTEM Atrial Rate 70 BPM MUSE SYSTEM P-R Interval 186 ms MUSE SYSTEM QRS Duration 78 ms MUSE SYSTEM Q-T Interval 372 ms MUSE SYSTEM QTC Calculated (Bezet) 401 ms MUSE SYSTEM Calculated P Mcallen 66 degrees MUSE SYSTEM Calculated R Mcallen 30 degrees MUSE SYSTEM Calculated T Mcallen 32 degrees MUSE SYSTEM INTERPRETATION Normal sinus [...] EST) Glucose 169 65 - 199 mg/dL [facility] Comment:Diabetes: >=200 mg/d L plus symptoms Blood Urea Nitrogen 18 8 - 18 mg/dL [facility] Creatinine 1.00 0.70 - 1.20 mg/dL [facility] Sodium 135 135 - 145 mmol/L [facility] Potassium Not Perf 3.5 - 5.0 [facility] Comment: Unable to quantitate [...] questions. Chloride 103 98 - 107 mmol/L [facility] Carbon Dioxide 24 22 - 31 mmol/L [facility] Anion Gap 8 5 - 15 mmol/L [facility] Calcium 8.4(L) 8.5 - 10.5 mg/dL [facility] Est Glomerular Filtration Rate 61 >=60 mL/min/1. 73 m?? [facility] Comment: This patient's estimated GFR was [...] In Lab Jimmy Martinez MD CHEMISTRY ORDERABLES [facility] [place] [address] * POCT Glucose (01/18/2023 12:26 PM EST) Glucose, POC 159 65 - 199 mg/dL [facility] Comment: Supplemental ranges: <140 mg/dL before meals <180 mg/dL all other times of the day Blood 01/18/2023 12:2 6 PM EST 01/18/2023 12:26 PM EST Jimmy Martinez MD POINT OF CARE TEST O RDERABLES Performing Organization Address City/[facility]/ZIP Co de Phone Number [facility] [place] [place] [address] * (ABNORMAL) Hemoglobin A1c (01/18/2023 12:20 PM EST) Hemoglobin A1c 9.6(H) 4.3 - 5.6 % [facility] Comment: Reference Range: 4.3 - 5.6% [...] Mellitus, Diabetes Care 2013; 36: Suppl. 1, S67-74 Estimated Average Glucose 229 mg/dL [facility] Comment: Note: The eAG calculation has not been proven valid for women, individuals below 18 years old or above 70 years old, or individuals with hemoglobinopathies. Estimated average glucose (eAG) is calculated from the equation described in: Colin CRAWFORD, Issac J, Libby R, et al. ??Translating the A1C assay into estimated average glucose values. ??Diabetes Care 2008:31(8):0630-1166. Additional resources are available on the ADA website (diabetes.org). Blood 01/18/2023 12:2 0 PM EST 01/18/2023 12:40 PM EST Narrative Resulting Agency Comment Spec In Lab Anisa Hernandez APRN CHEMISTRY ORDERABLE S Performing Organization Address City/[facility]/ZIP Co de Phone Number [facility] [place] [place] [address] * (ABNORMAL) POCT Glucose (01/18/2023 10:05 AM EST) Glucose, POC 209(H) 65 - 199 mg/dL [facility] Comment: Supplemental ranges: <140 mg/dL before meals <180 mg/dL all other times of the day Blood 01/18/2023 10:0 5 AM EST 01/18/2023 10:05 AM EST Jimmy Martinez MD POINT [place] [address] * XR Cervical Spine 1 View (01/18/2023 [...] who have questions please contact the health acute care physician that requested your imaging first. ? Electronically signed by: Abimael Woodard MD, [facility] ([phone]), at 01/18/2023 2:41 PM Narrative 01/18/2023 2:41 [...] patients who have questions please contactthe health acute care physician that requested your imaging first. Jimmy Martinez MD IMG DX ORDERABLES * POCT Glucose (01/18/2023 9:14 AM EST) Glucose, POC 192 65 - 199 mg/dL [facility] Comment: Supplemental ranges: <140 mg/dL before meals <180 mg/dL all other times of the day Blood 01/18/2023 9:14 AM EST 01/18/2023 9:14 AM EST Jimmy Martinez MD POINT OF CARE TEST O RDERABLES Performing Organization Address City/State/[facility] Co de Phone Number [facility] [place] [address] * XR Cervical Spine 1 View (01/18/2023 [...] who have questions please contact the health acute care physician that requested your imaging first. ? Electronically signed by: Abimael Woodard MD, [facility] ([phone]), at 01/18/2023 12:22 PM Narrative 01/18/2023 12:22 [...] patients who have questions please contactthe health acute care physician that requested your imaging first. Electronically signed by: Abimael Woodard MD, [facility]([phone]), at 01/18/2023 12:22 PM Jimmy Martinez MD IMG DX ORDERABLES * (ABNORMAL) POCT Glucose (01/18/2023 6:43 AM EST) [facility] Glucose, POC 304(H) 65 - 199 mg/dL [facility] Comment: Supplemental ranges: <140 mg/dL before meals <180 mg/dL all other times of the day Blood 01/18/2023 6:43 AM EST 01/18/2023 6:43 AM EST Jimmy Martinez MD POINT OF C[place] [address] * SCAN DOC: IMPLANTABLE DEVICES (01/18/2023 12:00 [...] hyperglycemia, with long-term current use of insulin Cervical myelopathy Cervical spondylosis with myelopathy documented in this encounter Admitting Diagnoses Diagnosis [...] Given 01/18/2023 8:37 PM EST 80 mg BUpivacaine (pf) (Marcaine) (2.5 mg/mL) 0.25% injection PRN, Starting on Mon01/18/23 at 0907, Until Chiquis 01/19/23 at 1611, Intra-Operative (Intra-Procedure), Routine Given 01/18/2023 9:42 AM EST 7 mLs 19- Surgical Site Given 01/18/2023 9:07 AM EST 4 mLs 19 - Surgical Site ceFAZolin (Ancef) 2 g vial attach to sodium chloride 0.9% 100 mL Mini-Bag Plus 2 g, Intravenous, EVERY 8 HOURS, 3 doses, First dose on Mon01/18/23 at 1200, Last dose on Chiquis 01/19/23 at 0400, Administer over 30 Minutes, Adjust [...] 01/19/2023 3:59 AM EST 2 g 200 mL/hr New Bag 01/18/2023 8:40 PM EST 2 [...] PRN, Starting on Mon01/18/23 at 1358, Until Mon01/19/23 at 1611, Nausea, Routine Given 01/18/2023 2:01 [...] CONTINUOUS, Starting on Mon01/18/23 at 1030, Until Mon01/19/23 at 1611 New Bag 01/18/2023 10:29 AM EST 1,000 mLs 100 mL/hr thrombin (Bovine) (Thrombinar) kit PRN, Starting on Mon01/18/23 at 0906, Until Chiquis 01/19/23 at 1611, Intra-Operative (Intra-Procedure) Given 01/18/2023 9:06 AM EST 20,000 Units 19- Surgical Site documented in this encounter [...] Day of Surgery (Day of Procedure), Routine 648 (Given - Provider: Criss Hernandez RN) acetaminophen [...] 2036 (Given - Provider: Morenita Perales, JAY) ceFAZolin (Ancef) 2 g vial attach to [...] RN)2039 (New Bag - Provider: Morenita Perales RN)2109 (Stopped - Provider: Morenita Perales RN) 035 (New Bag - Provider: Dilcia Perez LPN)042 (Stopped - Provider: Morenita Perales RN) insulin detemir (Levemir) (100 unit/mL) subcutaneous injection vial 5-10 Units 5-10 Units, Subcutaneous, NIGHTLY, First dose on Mon01/18/23 at 2100, Until Discontinued, If patient has not eaten yet or NPO, give 5 units. If patient eating, give 10 units. 2038 (Given - Provider: Morenita Perales RN) insulin lispro (HumaLOG;Admelog) (100 unit/mL) subcutaneous [...] Yuli Payne LPN)1259 (Given - Provider: Celia Harvey, RN) insulin lispro (HumaLOG;Admelog) (100 unit/mL) subcutaneous [...] Criss Hernandez RN)1250 (Given - Provider: Pham Cline, JAY)1737 (Given - Provider: Darby Cochran, JAY)203 (Given - Provider: Morenita Perales, JAY) 0029 (Given - Provider: Morenita Perales RN)0400 (Given - Provider: Dilcia Perez LPN)0758 (Given - Provider: Yuli Payne LPN)1300 (Given - Provider: Celia Harvey, JAY) ipratropium-albuteroL (Duoneb) 0.5 mg-3 mg(2.5 mg base)/3 mL nebulizer solution 3 mL 3 mL, Nebulization, EVERY 4 HOURS, First dose on Mon01/18/23 at 1700, Until Discontinued, Routine 1700 (Not Given - Provider: Darby Cochran RN - Reason: Patient/family refused)2036 (Not Given - Provider: Morenita Perales RN [...] Discontinued, Hold for SBP < 120, Routine 1746 (Given - Provider: Darby Cochran RN) 0900 (Not Given - Provider: Yuli Payne LPN - Reason: Contraindicated) metoprolol succinate XL (Toprol-XL) tablet 50 mg 50 mg, Oral, DAILY, First dose on Mon01/18/23 at 1700, Until Discontinued, DO NOT CRUSH OR OPEN, Routine 1746 (Given - Provider: Darby Cochran RN) 08 (Given - Provider: Yuli Payne LPN) pantoprazole EC (Protonix) tablet 40 mg 40 mg, Oral, DAILY, First dose (after last reorder) on Mon01/18/23 at 1700, Until Discontinued, DO NOT CRUSH OR OPEN Therapeutic interchange for pantoprazole 20 mg 1746 (Given - Provider: Darby Cochran RN) 08 (Given - Provider: Yuli Payne LPN) sodium chloride 0.9 % (flush) (BD PosiFlush Normal Saline 0.9) flush 5 mL 5 mL, Intravenous, 2 TIMES DAILY, First dose on Mon01/18/23 at 2100, Until Discontinued, Routine 2036 (Given - Provider: Morenita Perales RN) 0801 (Given - Provider: Yuli Payne LPN) Continuous Medication Order 01/17/2023 01/18/2023 01/19/2023 lactated ringers infusion (CANCELED) 1,000 mL, at 100 mL/hr, Intravenous, CONTINUOUS, Starting on Mon01/18/23 at 0700, Until Mon01/18/23 at 1126, Day of Surgery (Day of Procedure) 0734 (New Bag - Provider: Wade aWlsh MD) sodium chloride 0.9% infusion 1,000 mL, [...] Nausea, Routine 1401 (Given - Provider: Pham Cline RN) sodium chloride 0.9 % (flush) (BD [...] 0906, Until Mon01/19/23 at 1611, Intra-Operative (Intra-Procedure) 0906 (Given - Provider: Jimmy Martinez MD) Linked [...] unit/mL) subcutaneous injection vial [facility] Units, Subcutaneous, EVERY 4 HOURS SCHEDULED, [...] Starting on Mon01/18/23 at 1013, Until Chiquis 12 at 1611, Pain, severe pain (7-10), For severe pain (7-10). Do not exceed 15 mg in 4 hours. If pain not relieved, call provider., Routine documented in this encounter Care Teams Materials Scheduler Relationship Specialty Start Date End Date Haylee Baptiste MD [address] [place] [address] PCP - General 01/21/10 documented as of this encounter
--- OUTSIDE RECORDS SUMMARY | 2023-12-15 12:38 | XMS_ITS | Encounter Summary ---
Author Organization [facility] Address [facility] [place] [address] Care Team Providers Care Insurance And Financial Services Agent Name Role Phone Haylee Baptiste MD Primary Care Provider [phone] Encounter Details Date Type Department Care Team (Late st Contact Info) Description 04/11/2022 Telephone Neurology at [facility] [place] [address] Cody Staton MD [facility] [place] [address] Social History Tobacco Use Types Packs/Day Years [...] encounter Miscellaneous Notes * Telephone Encounter - Saskia Cruz RN - 04/11/2022 3:25 PM EST Message forwarded to Dr. Staton for input. Natali will be called back once this is available. * Telephone Encounter - Saskia Cruz RN - 04/11/2022 3:25 PM EST Copied from [facility] #[id number]. Topic: Specialty Dept CRMs - Generic Call >> Apr 11, 2022 3:05 PM Janine Iraheta wrote: Specialist: Cody Staton MD Relationship (if other than patient-full name): Natali- [facility] Reason for Call: Natali calling in states that Nallely is due for an EGD. She is currently scheduled with them on 05/05/22. They need the input from Dr. Staton. The anesthesiologist would like it in witting that Nallely is ok to undergo this procedure. They are also wondering if she should be positioned a certain way. Natali wasn't sure if Dr. Staton would want it done at [facility] or not. Please call Natali to discuss at [phone]. Please fax the written letter to [phone]. documented in this encounter Plan of Treatment Upcoming Encounters Date Type Department Care Team (Late st Contact Info) Description 01/09/2024 2:20 PM EST TH Visit (TeleHealth) Hematology [place] [address] Kati Burnette MD [facility] DR [place] [address] 01/24/2024 9:30 AM EST Appointment XRay at [address] [place] [address] Jimmy Swann MD [facility] [place] [address] 01/24/2024 11:00 AM EST Office Visit Pain [place] [phone] Regulo Wang PA [facility] [place] [address] 01/24/2024 2:45 PM EST Appointment [place] [address] 01/24/2024 3:45 PM EST Office [place] [phone] Caitlyn Hirsch MD [facility] [place] [address] 03/20/2024 9:00 AM EST Office Visit Hematology [place] [address] Ericka Forrest, [facility] DR [place] [address] 07/29/2024 2:00 PM EDT Office Visit Radiation Oncology at [address] [phone] Kasie Marte MD [facility] [place] [address] documented as of this encounter Visit Diagnoses Not on filedocumented in this encounter Care Teams Insurance And Financial Services Agent Relationship Specialty Start Date End Date Haylee Baptiste MD [address] [place] [address] PCP - General 01/21/10 documented as of this encounter
--- OUTSIDE RECORDS SUMMARY | 2023-12-15 12:38 | XMS_ITS | Encounter Summary ---
Author Organization [facility] Address [facility] [place] [address] Care Team Providers Care Printer Apprentice Name Role Phone Haylee Baptiste MD Primary Care Provider [phone] Encounter Details Date Type Department Care Team (Latest Contact Info) Description 12/20/2022 Travel Social History Tobacco Use Types Packs/Day [...] TH Visit (TeleHealth) H[place]ology [place] [phone] Kati Burnette MD [facility] [place] [address] 01/24/2024 9:30 AM EST Appointment XRay at [address] [place] [phone] Jimmy Swann MD [facility] [place] [address] 01/24/2024 11:00 AM EST Office Visit Pain and Spine Center at [place] [address] Regulo Wang PA [facility] DR [place] [address] 01/24/2024 2:45 PM EST Appointment Mammography at [place] [address] 01/24/2024 3:45 PM EST Office Visit General Surgery at [place] [address] Caitlyn Hirsch MD [facility] DR [place] [address] 03/20/2024 9:00 AM EST Office Visit Hematology and Oncology at [place] [address] Ericka Forrest, [facility] HEMATOLOGY [place] [address] 07/29/2024 2:00 PM EDT Office Visit Radiation Oncology at [address] [phone] Kasie Marte MD [facility] DR RADIATION [place] [address] documented as of this encounter Visit Diagnoses Not on filedocumented in this encounter Care Teams Printer Apprentice Relationship Specialty Start Date End Date Haylee Baptiste MD [address] [place] [address] PCP - General 01/21/10 documented as of this encounter
--- OUTSIDE RECORDS SUMMARY | 2023-12-15 12:38 | XMS_ITS | Encounter Summary ---
Author Organization [facility] [place] [address] Care Team Providers Care Spar Finisher Name Role Phone Haylee Baptiste MD Primary Care Provider [phone] Reason for Referral * Diagnostic Test (Routine) - Closed Specialty Diagnoses / Procedures Referred By Contac t Referred To Contact Radiology Diagnoses Osteoarthritis of cervical spine with myelopathy Procedures MRI Cervical Spine wo Contrast (Generic) MRI Cervical Spine wo Contrast (Generic) Haylee Eckert APRN [facility] [place] [address] [place] [id number] Referral ID Status Reason Start Date Expiration Date V isits Requested Visits Authorized [id number] Closed Specialty Service Requested 12/07/2022 06/06/2024 1 1 Reason for Visit * Diagnostic Test (Routine) - Closed Specialty Diagnoses / Procedures Referred By Contac t Referred To Contact Radiology Diagnoses Osteoarthritis of cervical spine with myelopathy Procedures MRI Cervical Spine wo Contrast (Generic) MRI Cervical Spine wo Contrast (Generic) Haylee Eckert APRN [facility] [place] [address] [place] [id number] Referral ID Status Reason Start Date Expiration Date V isits Requested Visits Authorized [id number] Closed Specialty Service Requested 12/07/2022 06/06/2024 1 1 Encounter Details Date Type Department Care Team (Latest Contact Info) Description 12/27/2022 8:26 AM EST - 12/27/2022 9:35 AM EST Hospital [place] [phone] Haylee Eckert APRN [facility] [place] [address] Osteoarthritis of cervical spine with myelopathy Discharge [...] daily. 03/15/2022 fluticasone propionate (Flonase) 50 mcg/actuation Sparks, Suspension 1 spray by Each Nare route [...] TH Visit (TeleHealth) Hematology [place] [address] Kati Burnette MD [facility] DR HEMATOLOGY [place] [address] 01/24/2024 9:30 AM EST Appointment XRay at [address] [place] [phone] Jimmy Swann MD [facility] [place] [address] 01/24/2024 11:00 AM EST Office Visit Pain and Spine Center at [address] Regulo Wang PA [facility] [place] [address] 01/24/2024 2:45 PM EST Appointment Mammography at [address] 01/24/2024 3:45 PM EST Office Visit General Surgery at [address] Caitlyn Hirsch MD [facility] [place] [address] 03/20/2024 9:00 AM EST Office Visit Hematology and Oncology at [place] [phone] Ericka Forrest [facility] DR HEMATOLOGY [place] [address] 07/29/2024 2:00 PM EDT Office Visit Radiation Oncology at [address] [phone] Kasie Marte MD [facility] [place] [address] documented as of this encounter Procedures Procedure Name Priority Date/Time Associated Diagnosis Comments MRI CERVICAL SPINE WO CONTRAST Routine 12/27/2022 9:22 AM EST Osteoarthritis of cervical spine with myelopathy documented in this encounter Results * MRI Cervical Spine [...] who have questions please contact the health inspector health care facilities that requested your imaging first. ? Electronically signed by: Bj Garza MD, [facility] ([phone]), at 12/27/2022 2:32 PM Narrative 12/27/2022 2:32 PM EST EXAMINATION: MRI [...] patients who have questions please contactthe health inspector health care facilities that requested your imaging first. Electronically signed by: Bj Garza MD, [facility]([phone]), at 12/27/2022 2:32 PM Haylee Eckert INFORMATION AND REFERRAL DIRECTOR IMG MRI ORDERABLES documented in this encounter Visit Diagnoses Diagnosis Osteoarthritis of cervical spine with myelopathy documented in this encounter Care Teams Spar Finisher Relationship Specialty Start Date End Date Haylee Baptiste MD [address] [place] [address] PCP - General 01/21/10 documented as of this encounter
--- OUTSIDE RECORDS SUMMARY | 2023-12-15 12:39 | XMS_ITS | Encounter Summary ---
Author Organization [facility] Address [facility] [place] [address] Care Team Providers Care Revenue Specialist Name Role Phone Haylee Baptiste MD Primary Care Provider [phone] Reason for Visit * Reason Onset Date Comments Appointment 06/30/2021 Encounter Details Date Type Department Care Team (Late st Contact Info) Description 06/30/2021 Telephone Neurology at [facility] [place] [address] Cody Staton MD [facility] [place] [address] Appointment Social History Tobacco Use Types Packs/Day Years [...] encounter Miscellaneous Notes * Telephone Encounter - Carey Long - 06/30/2021 2:20 PM EDT Scheduling Instructions Provider: Dr Staton Visit Type (paste AMILCAR Instructions or manually enter): Return in about 3 months (around 09/29/2021) for Telehealth. If EMG Visit needed list diagnosis for the EMG to be used in Decision Tree: Appt Note: Cervical spondylosis Additional Info Needed: documented in this encounter Plan of Treatment Upcoming Encounters Date Type Department Care Team (Late st Contact Info) Description 01/09/2024 2:20 PM EST TH Visit (TeleHealth) Hematology and Oncology at [place] [phone] Kati Burnette MD [facility] DR [place] [address] 01/24/2024 9:30 AM EST Appointment XRay at [address] [place] [address] Jimmy Swann MD [facility] [place] [place] [address] 01/24/2024 11:00 AM EST Office Visit Pain and Spine Center at [place] [address] Regulo Wang PA [facility] [place] [address] 01/24/2024 2:45 PM EST Appointment Mammography at [address] 01/24/2024 3:45 PM EST Office Visit General Surgery at [address] Caitlyn Hirsch MD [facility] [place] [address] 03/20/2024 9:00 AM EST Office Visit Hematology and Oncology at [place] [phone] Ericka Forrest, [facility] DR [place] [address] 07/29/2024 2:00 PM EDT Office Visit Radiation Oncology at [address] [phone] Kasie Marte MD [facility] [place] [address] documented as of this encounter Visit Diagnoses Not on filedocumented in this encounter Care Teams Revenue Specialist Relationship Specialty Start Date End Date Haylee Baptiste MD [address] [place] [address] PCP - General 01/21/10 documented as of this encounter
--- OUTSIDE RECORDS SUMMARY | 2023-12-15 12:39 | XMS_ITS | Encounter Summary ---
Author Organization [facility] [place] [address] Care Team Providers Care Manager Configuration Name Role Phone Haylee Baptiste MD Primary Care Provider [phone] Reason for Referral * Consultation (Routine) - Closed Specialty Diagnoses / Procedures Referred By Contac t Referred To Contact [facility] Diagnoses Cervical spondylosis Dizziness Spine - Cervical disc herniation w/ cord impingement/ MRI 06/29/21 in [facility] *KJM or Cody Roberts MD [facility] [place] [address] [facility] [place] [address] Referral ID Status Reason Start Date Expiration Date V isits Requested Visits Authorized [id number] Closed Consult, Test & Treat 06/29/2021 06/29/2022 1 1 Encounter Details Date Type Department Care Team (Late st Contact Info) Description 06/29/2021 3:30 PM EDT [place] [address] Cody Staton MD [facility] [address] Cervical spondylosis; Dizziness Social History Tobacco Use [...] Progress Notes * Cody Staton MD - 06/29/2021 3:30 PM EDT Images from the original note were not included[place] [address] 06/29/2021 Patient name: Nallely Velazquez Date of : 1955 Referring provider: Haylee Baptiste MD [address] [place] [address] HISTORY REASON FOR REFERRAL/CHIEF COMPLAINT: Facial paresthesia. 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 Lives in [facility] with her . Non smoker. No [...] spine today showing DJD changes Otherwise stable. PMHx: No past medical history on file. Past Surgical History: Procedure Laterality Date ??? IR NEPHROSTOMY TUBE PLACEMENT PERCUTANEOUS LEFT 09/27/2018 IR Nephrostomy Tube Placement Percutaneous Left 09/27/2018 Justin De La Cruz MD [facility] RAD Family History: Family History Problem [...] to Visit Medication Sig Dispense Refill ??? cyclobenzaprine (Flexeril) 5 mg Tablet Take 1 tablet by mouth nightly. 30 tablet 0 ??? ondansetron (ZOFRAN-ODT) 4 mg Tablet, Rapid Dissolve DISSOLVE ONE TABLET ON THE TONGUE EVERY 8 HOURS NEEDED FOR NAUSEA VOMITING 0 ??? sitaGLIPtin (JANUVIA) 100 mg Tablet Take 100 mg by mouth daily. ??? nabumetone (RELAFEN) 750 mg Tablet Take 750 mg by mouth 2 times daily. ??? isosorbide mononitrate (IMDUR) 30 mg Tablet Sustained Release 24 hr Take 30 mg by mouth daily. ??? losartan (COZAAR) 100 mg Tablet Take 100 mg by mouth daily. ??? clopidogrel (PLAVIX) 75 mg Tablet Take 75 mg by mouth daily. ??? insulin detemir (LEVEMIR) Insulin Pen Inject 38 Units subcutaneously nightly. ??? glipiZIDE (GLUCOTROL XL) 5 mg Tablet Extended Rel 24 hr Take 5 mg by mouth daily. ??? meTOPROLOL succinate (TOPROL-XL) 25 mg Tablet Sustained Release 24 hr Take 25 mg by mouth daily. ??? omeprazole (PRILOSEC) 20 mg capsule 20MG, PO, Once daily ??? meclizine (ANTIVERT) 25 mg tablet 25MG, PO, Three times daily PRN ??? atorvastatin (LIPITOR) 80 mg tablet 80MG = 1 Tablet(s), PO, Once daily ??? ASPIRIN ORAL No current facility-administered medications on file prior [...] GENERAL THYROID: No results found for: TSH, [id number], FREET4, TT4, THYROIDAB, THGAB FolateNo results found for: SFOLATE ESRNo results found for: SEDRATE CRPNo results found for: CRP B12No results found for: [id number] CKNo results found for: CK Angiotensin ConvertaseNo [...] A1C Lab Results Component Value Date HA1C 10.5 (H) 09/06/2016 LIPID PROFILENo results found for: CHLPL, HDL, CHOLHDL, TRIG, LDLCHOL, LDLDIRECT MIKALA 65No results found for: EKU96AN ANTI GM1,ANTI SGPG, MAG@RESUFAST (MAGAUTOAB,SGPG,MAGWB,GM1AB)@ HEAVY METAL [...] ANNA1, ANNA2, ANNA3, AGNA1, PCA1, PCA2, PCATYPETR, AMPHIPHYSIN,GJBI2FEQ, STRIATMSCLAB, CACHABPQTYPE, CACHABNTYPE, ACHRBINDAB, NEUROKCHAB, NMDARECEPTOR, QLG10ED THROMBOSIS HOMEOCYSTEINENo results found for: HOMOCYSTEINE THROMBOSIS PANELNo results found for: ACAIGM, [id number] FACTOR V LEIDEN No components found for: [...] impingement on cord. MRA shows diminutive vertebral artery IMPRESSION: Facial paresthesiae left, likely cervicogenic. Essential tremors. PLAN/RECOMMENDATIONS: ??? Her symptoms are likely cervicogenic related to vestibulo-cervical dysfunction on left side. ??? Referral to spine surgery ??? Recommended starting neck PT after spine surgery evaluation. ??? Flexeril HS for neck muscle relaxation. ??? Follow up in 3 months. Cody Staton MD Department of Neurology [facility] documented in this encounter Plan of Treatment Upcoming Encounters Date Type Department Care Team (Late st Contact Info) Description 01/09/2024 2:20 PM EST TH Visit (TeleHealth) Hematology [place] [address] Kati Burnette MD [facility] HEMATOLOGY [place] [address] 01/24/2024 9:30 AM EST Appointment XRay at [address] [place] [address] Jimmy Swann MD [facility] [place] [address] 01/24/2024 11:00 AM EST Office Visit [facility] at [place] [phone] Regulo Wang PA [facility] [place] [address] 01/24/2024 2:45 PM EST [place] [address] 01/24/2024 3:45 PM EST Office [place] [address] Caitlyn Hirsch MD [facility] [place] [address] 03/20/2024 9:00 AM EST Office Visit Hematology and Oncology at [place] [phone] Ericka Forrest, [facility] [address] [place] [address] 07/29/2024 2:00 PM EDT Office Visit Radiation Oncology at [address] [phone] Kasie Marte MD [facility] [place] [address] Scheduled Referrals Name Type Priority Associated Diagnoses Orde r Schedule Referral to Spine Center Outpatient Referral Routine Cervical spondylosis Dizziness Ordered: 06/29/2021 documented as of this encounter Visit Diagnoses Diagnosis Cervical spondylosis Cervical spondylosis without myelopathy Dizziness Dizziness and giddiness documented in this encounter Care Teams Manager Configuration Relationship Specialty Start Date End Date Haylee Baptiste MD [address] [place] [address] PCP - General 01/21/10 documented as of this encounter
--- OUTSIDE RECORDS SUMMARY | 2023-12-15 12:39 | XMS_ITS | Encounter Summary ---
Author Organization [facility] Address [facility] [place] [address] Care Team Providers Care Certified Residential Medication Aide Name Role Phone Haylee Baptiste MD Primary Care Provider [phone] Reason for Referral * Consultation (Routine) - Closed Specialty Diagnoses / Procedures Referred By Mike jalloh Referred To Contact Diagnoses Non-ST elevation myocardial infarction (NSTEMI) Mary Ferguson MD [facility] [place] [address] Cardiac Rehab, [address] [place] [address] Referral ID Status Reason Start Date Expiration Date V isits Requested Visits Authorized [id number] Closed Consult, Test & Treat 09/01/2021 02/28/2022 36 36 Reason for Visit * Auth/Cert Specialty Diagnoses / Procedures Referred By Mike jalloh Referred To Contact Diagnoses NSTEMI (non-ST elevated myocardial infarction) Chest Pain Procedures Emergency IPI Mary Ferguson MD [facility] [place] [address] [facility] Referral ID Status Reason Start Date Expiration Date Visits Re quested Visits Authorized [id number] 1 1 Encounter Details Date Type Department Care Team (Latest Contact Info) Description 08/29/2021 10:24 PM EDT - 09/01/2021 12:42 PM EDT Hospital Encounter Intermediate Cardiac Care Unit [facility] [place] [id number] [facility] [place] [place] [address] Non-ST elevation myocardial infarction (NSTEMI); Coronary artery disease, unspecified vessel or lesion type, unspecified whether angina present, unspecified whether ekuk or transplanted heart Discharge Disposition: Home Social History Tobacco Use [...] Sign Reading Time Taken Comments Blood Pressure 135/82 09/01/2021 11:00 AM EDT Pulse 78 09/01/2021 7:54 AM EDT Temperature 36.7 ??C (98.1 ??F) 09/01/2021 11:00 AM E DT Respiratory Rate 18 09/01/2021 11:00 AM EDT Oxygen Saturation 95% 09/01/2021 11:00 AM EDT Inhaled Oxygen Concentration - - Weight 83.6 kg (184 lb 4.9 oz) 09/01/2021 6:00 A M EDT Height 157.5 cm (5' 2) 08/29/2021 10:39 PM EDT Body Mass Index 33.71 08/29/2021 10:39 PM EDT documented in this encounter Discharge Summaries * Mary Ferguson MD - 09/01/2021 10:56 AM EDT Images from the original note were not included. Discharge Summary Patient Name: Gabriel Velazquez Patient Age: 66 y.o. Language: Lithuanian Race: White Ethnicity: Not nor Admit date: 08/29/2021 Discharge date and time: 09/01/2021 11:04 AM Attending Physician: Mary Ferguson MD Discharge Physician: Mary Ferguson MD ?? I have seen and examined this patient and agree with the clinic note, assessment and plan. ??I havediscussed with Service MODE ?? This is a 66 year old woman with history of non-obstructive CAD (cardiac catheterization in 2014), stroke, diabetes. ??She presents now with chest pain relieved by SLNTG and troponin 0.02 X 2. ??Notethat serum creatinine is 1.32, HbA1c is 9.2. ??She is requiring low dose IV NTG. ? We discussed options for management and feel that it would be reasonable to proceed with cardiac catheterization??which she had today; LAD lesion found and she had percutaneous coronary intervention with drug-eluding stent. She is stable for discharge with outpatient cardiology follow up. ?? Mary Ferguson MD, Ladi, FACC, FNLA Cardiology Service Attending?? Follow-up Recommendations for Providers: NSTEMI with ostial LAD stent placement Plavix 75 mg x 6 months to a year Statin changed from atorvastatin to rosuvastatin She will be a new patient of Dr. Cadena at [facility] Access site is right radial U500 dose adjustments to 10 units with breakfast, 5 units with lunch and 10 units at bedtime Continue Trulicity 1.5 mg weekly to be given on Monday, follow-up with endocrine in October asscheduled Cr 1.07 on discharge, 1.3 on admission. Follow in 1 week with BMP since Benicar will be restarted. Inpatient Provider Contact Information: MD Annalisa Ambrocio APRN Anthony Machado, JUAN-C [phone] Discharge Diagnoses (Hospital Problems) and Secondary Diagnoses (Chronic Problems): Active Hospital Problems Diagnosis ??? NSTEMI (non-ST elevated myocardial infarction) Resolved Hospital Problems No resolved problems to display. Active Non-Hospital Problems Diagnosis ??? Closed fracture of left wrist ??? Left hand pain ??? Achilles tendon tear, left ??? Type 2 diabetes mellitus with hyperglycemia, with long-term current use of insulin ??? Hypertension ??? halfway current use of antithrombotics/antiplatelets ??? Prinzmetal angina Operations/Major Procedures: Operations: Procedure(s): CARDIAC CATHETERIZATION 08/31/21 Dual Antiplatelet (DAPT) Recommendations: Drug eluting stent (VINCENZO) inserted. Patient was on chronic DAPT on arrival to the optical laboratory technician. Recommended anti-platelet/anti-thrombotic regimen: Start aspirin 81 mg daily now and continue for indefinitely. Start clopidogrel 75 mg daily now and continue for 12 months then stop. These recommendations are made at the time of the intervention. Patient and provider preferences or a changing clinical situation may require modification of this regimen. [place] [facility] [place] questions. The 1 year bleeding risk as calculated by the PRECISE DAPT score is Moderate risk. This patient may be at high bleeding risk. In patients treated with DAPT after coronary stent implantation who develop a high risk of bleeding, or are at high risk of severe bleeding complication, or develop significant overt bleeding, discontinuation of P2Y12 inhibitor therapy after 3 months for stable ischemic heart disease (SIHD) or after 6 months for acute coronary syndrome (ACS) may be reasonable. Conclusions: * One vessel coronary artery disease (LAD) * Successful stent insertion of the ostial LAD lesion * See Dual Antiplatelet (DAPT) Recommendations above Echo: 08/30/21 Interpretation Summary Left ventricle is of normal size. Wall thickness is normal. Left ventricular size and systolic function is normal. The left ventricular ejection fraction is 66% by Mcarthur's biplane. There are no segmental wall motion abnormalities. No significant valvular abnormalities. Other details as noted below. As compared to an outside echo report ([facility] Nov 05, 2013), there is no significant change. History of Presentation: Gabriel Velazquez is a 66 y.o. female with PMH of non obstructive CAD in 2015, ? Remote hx of CVA, HTN, IDDM, HLD, fibromyalgia, CKD, cervical radiculopathy/spinal cord compression who presented to [facility] with chest pain. ?? Pt reports chest pain x 3 night at night while asleep usually around 4AM. Pain was initially mild but last night she had worse pain, 10/10. Pain is stabbing like, below the left breast along with left arm pain. She initially thought it was her cervical spinal cord compressive symptoms but given worsening pain blossom yesterday got her concerned. She was able to sleep yesterday but woke up at 9AM withsimilar pain, took 2 SL nitro with some improvement in pain. She called EMS for lingering pain, wasgiven ASA 243 and nitro by EMS with improvement in pain. Pt had waxing and waning pain the ER, was started on nitro drip. Denies any other associated symptoms. No previous similar episodes. 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 ?? In OSH vitals were stable. Labs H&H 14/43, Plt 325, BUN 14, Cr 14, Trop 161>265 ( ULN 60), pro BNP 919. CXR with no acute findings. Pt received ASA, plavix, heparin drip, SL nitro, nitro drip,metoprolol and is now transferred here for further management. ?? At the time of my evaluation, reports mild tenderness below the left breast area. Denies nausea, SOB, palpitations, orthopnea, PND or pedal edema. Has received all her COVID vaccines. ?? Hospital Course: NSTEMI The patient ruled in for NSTEMI with elevated troponin x 3. She was anticoagulated with IV heparin and given prednisone due to her contrast allergy. Given the patient's risk factors, ECG changes, positive biomarkers, it was decided to proceed with coronary angiography. The patient went to the cardiac optical laboratory technician for a diagnostic cath which showed a long tubular ostial LAD lesion which was successfully stented with a drug eluting stent. The patient will need to continue on Plavix for the next year.Access was via right radial artery and this site was clean, dry and intact on the day of discharge. The patient???s medications at discharge include: aspirin, statin, beta bora, ARB, Plavix and PRN nitroglycerin. Insulin-dependent DMII The patient takes U 500 insulin at home. With the prednisone burst pre cath her sugars were up in the 200 range so diabetes management consult appreciated. Her insulin coverage was changed to every 4hours to provide additional coverage with normalizing of her sugars. Her U500 dose was adjusted- 10units at breakfast, 5 units at lunch and 10 units at bedtime. She will continue Trulicity at 1.5 mg weekly to start on Monday. Hypertension The patient's blood pressure in the 24 hours prior to discharge has been BP: (112-151)/(53-89) . Medications include: metoprolol and ARB dosing. Hyperlipidemia Lipid profile showed total cholesterol 125 with LDL 71. Patient has been on atorvastatin 80 mg daily, which was changed to rosuvastatin 40 mg daily. ?? CKD III The patient's creatinine was followed throughout her hospitalization. On admission her creatinine was 1.38 and on day of discharge it was down to 1.0. As she will be restarting her MAURICIO inhibitor her baseline may be around 1.3 but can be monitored at in the outpatient setting. Functional and Cognitive Status: Alert and oriented x 3, ambulatory-independent Important Studies and Lab Data: Labs: Lab Results Component Value Date WBC 16.8 (H) 09/01/2021 HGB 14.0 09/01/2021 HCT 42.5 09/01/2021 PLATELET 292 09/01/2021 No results for input(s): INR in the last 168 hours. Lab Results Component Value Date NA 139 09/01/2021 K 3.9 09/01/2021 CL 104 09/01/2021 CO2 23 09/01/2021 BUN 18 09/01/2021 CREATININE 1.07 09/01/2021 No results for input(s): TSH in the last 7068 hours. Recent Labs 08/30/21 0550 HA1C 9.2* Recent Labs 08/30/21 1105 08/30/21 0550 08/29/21 2334 TROPONINT 0.02* 0.02* 0.02* Lab Results Component Value Date CHLPL 125 08/30/2021 HDL 29 08/30/2021 CHOLHDL 4.3 08/30/2021 TRIG 159 08/30/2021 LDLDIRECT 71 08/30/2021 Pending Studies and Lab Data: None Discharge Conditions/Prognosis: Ambulatory without anginal symptoms Discharge to: Home Updated Allergies/ADRs: Allergies Allergen Reactions ??? Iodine And Iodide Containing Products Anaphylaxis ??? Codeine Phosphate Nausea And Vomiting ??? Meperidine Hcl Nausea And Vomiting Nausea/Vomiting ??? Morphine Sulfate Nausea And Vomiting ??? Oxaprozin Nausea And Vomiting ??? Prednisone Rash CIS - Rash with dose greater than 20mg. ??? Sulindac Nausea And Vomiting Immunizations Given this Hospitalization: There is no immunization history on file for this patient. Discharge Medications: Your Medications New Medications Dose Details rosuvastatin 40 mg Tab Commonly known as: Crestor Take 1 tablet by mouth every evening. 40 mg Quantity: 90 tablet Refills: 3 Trulicity 1.5 mg/0.5 mL Pnij Inject 0.5 mLs subcutaneously once a week. Indications: type 2 diabetes mellitus Generic drug: dulaglutide 1.5 mg Quantity: 2 mL Refills: 11 Continued medications with new dosing Dose Details HumuLIN R U-500 (Conc) Kwikpen 500 unit/mL (3 mL) Inpn Take 10 units with breakfast, 5 units at lunch and 10 units at bedtime Generic drug: insulin regular human U-500 What changed: See the new instructions. Refills: 0 metoprolol succinate XL 50 mg Tablet sr Commonly known as: Toprol-XL Take 1 tablet by mouth daily. What changed: ?? how much to take ?? how to take this ?? when to take this ?? Another medication with the same name was removed. Continue taking this medication, and follow the directions you see here. 50 mg Quantity: 30 tablet Refills: 12 nitroGLYcerin 0.4 mg Subl Commonly known as: Nitrostat Place 1 tablet under the tongue every 5 minutes as needed for Chest pain. What changed: See the new instructions. 0.4 mg Quantity: 25 tablet Refills: PRN Continued medications, unchanged Dose Details albuteroL 90 mcg/actuation Hfaa Every 4 hours. Refills: 0 ASPIRIN ORAL Take 81 mg by mouth. 81 mg Refills: 0 clopidogreL 75 mg Tab Commonly known as: Plavix Take 1 tablet by mouth daily. 75 mg Quantity: 90 tablet Refills: 3 cyclobenzaprine 5 mg Tab Commonly known as: Flexeril Take 1 tablet by mouth nightly. 5 mg Quantity: 30 tablet Refills: 11 olmesartan 20 mg Tab Commonly known as: BENICAR Daily. Refills: 0 ondansetron ODT 4 mg Tbdl Commonly known as: Zofran-ODT DISSOLVE ONE TABLET ON THE TONGUE EVERY 8 HOURS NEEDED FOR NAUSEA VOMITING Refills: 0 pantoprazole EC 20 mg Tbec Commonly known as: Protonix Daily. Refills: 0 STOPPED Medications atorvastatin 80 mg Tab Commonly known as: Lipitor glipiZIDE XL 5 mg Tr24 Commonly known as: Glucotrol XL insulin detemir U-100 100 unit/mL (3 mL) Inpn Commonly known as: Levemir isosorbide mononitrate 60 mg Tablet sr Commonly known as: IMDUR isosorbide mononitrate CR 30 mg Tablet sr Commonly known as: Imdur losartan 100 mg Tab Commonly known as: COZAAR meclizine 25 mg Tab Commonly known as: Antivert nabumetone 750 mg Tab Commonly known as: RELAFEN PriLOSEC 20 mg Cpdr Generic drug: omeprazole SITagliptin 100 mg Tab Commonly known as: Januvia Smoking Status at Discharge: Social History Tobacco Use Smoking Status Never Smoker Smokeless Tobacco Never Used Instructions Given to Patient at Discharge: There are no outpatient Patient Instructions on file for this admission. General Instructions Call your doctor if: Chest pain, shortness of breath, pain or swelling in legs occurs. If you have non-emergent questions between now and the time of your follow up appointments: During 8am-5pm Monday through Monday call [phone] to speak with a nurse in the cardiology clinic All other times call [phone] and ask to speak to the clinical rehabilitation specialist assistant corporate controller. Return to work: One week, work note provided Driving: No driving for 48 hours after catheterization. Follow up Appointments: PCP Carey Saravia, DERRICK [phone] September 06, 2021 at 3:[address] Cadena at [facility] You will be called with this appointment SUGGEST: ?? Start Trulicity back up at 1.5 SQ weekly but do weekly start new day Monday as you are going home TODAY ?? Suggest U-500 insulin remain at SMALLER DOSES at 10 units AM, 5 units lunch, 10 units HS. ?? Remember, this is the equivalent of 125 units insulin. Your admitting dose was the = of 450 units insulin ?? Your last INSULIN GLARGINE was 40 units at 8:30 PM yesterday. You also had 40 units glargine in the AM. ?? Continue checking 4 times a day for data collection and safety. ?? Contact PCP or current director fixed income if consistently BS < 70, > 300. ?? Drink PLENTY of water and stay hydrated! 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 Future Appointments and Orders Future Appointments and Orders Future Appointments Provider Department Dept Phone 09/13/2021 3:00 PM Jimmy Swann MD [facility] [place] [facility] [place] at: [employer] Area 3D [phone] 09/30/2021 8:30 AM Cody Staton MD [place]rology [place] [facility] [place] at: [employer]C [phone] 10/13/2021 9:00 AM Tom Anna DO [place] [facility] [place] at: [employer] 3A [phone] Future Orders Complete By Expires Referral to Cardiac Rehab [[id number] Custom] As directed Process Instructions: If no progress note charted, please enter Clinical details in comments. Scheduling Instructions: Questions: My question or request is: NSTEMI. Cardiac rehab at [facility]. Discharge References/Attachments None Annalisa Montanez, DERRICK 09/01/2021 documented in this encounter Discharge Instructions * Discharge Instructions* Annalisa Montanez, DERRICK - 08/31/2021 2:14 PM EDT Call your doctor if: Chest pain, shortness of breath, pain or swelling in legs occurs. If you have non-emergent questions between now and the time of your follow up appointments: During 8am-5pm Monday through Monday call [phone] to speak with a nurse in the cardiology clinic All other times call [phone] and ask to speak to the clinical rehabilitation specialist assistant corporate controller. Return to work: One week, work note provided Driving: No driving for 48 hours after catheterization. Follow up Appointments: PCP Carey Saravia, SLOT SHIFT MANAGER [phone] September 06, 2021 at 3:[address] Cadena at [facility] You will be called with this appointment SUGGEST: Start Trulicity back up at 1.5 SQ weekly but do weekly start new day Monday as you are going home TODAY Suggest U-500 insulin remain at SMALLER DOSES at 10 units AM, 5 units lunch, 10 units HS. Remember, this is the equivalent of 125 units insulin. Your admitting dose was the = of 450 units insulin Your last INSULIN GLARGINE was 40 units at 8:30 PM yesterday. You also had 40 units glargine in theAM. Continue checking 4 times a day for data collection and safety. Contact PCP or current director fixed income if consistently BS < 70, > 300. Drink PLENTY of water and stay hydrated! 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 documented in this encounter Medications at Time of Discharge Medication Sig Dispensed Refills Start Date End Date benzonatate (Tessalon Perles) 100 mg capsule Take 100 mg by mouth 3 times daily as needed. 09/11/2020 EPINEPHrine 0.3 mg/0.3 mL Auto-Injector Inject 0.3 mg into the muscle once as needed. 09/11/2020 fluticasone propionate (Flonase) 50 mcg/actuation Draper, Suspension 1 spray by Each Nare route as needed. 01/05/2015 ondansetron (Zofran) 4 mg tablet Take 4 [...] needed for Chest pain. 25 tablet 09/01/2021 traMADoL (Ultram) 50 mg tablet Take 50 mg by mouth every 6 hours as needed. 10/14/2013 01/05/2023 clopidogreL (Plavix) 75 mg Tablet Take 1 tablet by mouth daily. 90 tablet 3 09/01/2021 01/05/2023 dulaglutide (Trulicity) 1.5 mg/0.5 mL Pen InjectorIndications: type 2 diabetes mellitus Inject 0.5 mLs subcutaneously once a week. Indications: type 2 diabetes mellitus 2 mL 11 09/01/2021 10/13/2021 cyclobenzaprine (Flexeril) 5 mg Tablet Take 1 tablet by mouth nightly. 30 tablet 06/29/2021 01/05/2023 ASPIRIN ORAL Take 81 mg by mouth. 02/23/2006 023 documented as of this encounter Progress Notes * Saba Hoffman RN - 09/01/2021 12:42 PM EDT Pt A/Ox4. Denies Chest pain or SOB. SR on tele, see tele report. Right radial cath side benign. No numbness or tingling reported to RUE. Discharge paperwork reviewed with patient. Telemetry discontinued. IVs removed. Pt discharged home with spouse. * Mary Ferguson MD - 09/01/2021 10:23 AM EDT Images from the original note were not included. Inpatient Cardiology Progress Note ?? I have seen and examined this patient and agree with the clinic note, assessment and plan. ??I havediscussed with Service MODE ?? This is a 66 year old woman with history of non-obstructive CAD (cardiac catheterization in 2014), stroke, diabetes. ??She presents now with chest pain relieved by SLNTG and troponin 0.02 X 2. ??Notethat serum creatinine is 1.32, HbA1c is 9.2. ??She is requiring low dose IV NTG. ? We discussed options for management and feel that it would be reasonable to proceed with cardiac catheterization??which she had today; LAD lesion found and she had percutaneous coronary intervention with drug-eluding stent. She is stable for discharge with outpatient cardiology follow up. ?? Mary Ferguson MD, Ladi, FACC, FNLA Cardiology Service Attending? Patient Name: Gabriel Velazquez Service: LEATHER COVERER / PA Responsible Attending: Mary Ferguson MD Reason for continued hospitalization: NSTEMI Post cardiac cath, with LAD stenting Home today Active Problems: Active Hospital Problems Diagnosis ??? NSTEMI (non-ST elevated myocardial infarction) Resolved Hospital Problems No resolved problems to display. Interval History: Gabriel Velazquez did well overnight without chest pain or shortness of breath. Right radial site feels well. Out of bed ambulating without anginal symptoms. Endocrine requestedq 4 hour glucose checks, with excellent sugars this morning. Aware of plan for d/c home today. Review of Systems: Review of Systems Respiratory: Negative for shortness of breath. Cardiovascular: Negative for chest pain. Endocrine: My sugar hasn't been so well controlled in years. I was 70 this morning! Skin: Right radial feels well. All other systems reviewed and are negative. Telemetry: 65-75 sinus rhythm with 6 beat NSVT Meds: Scheduled Meds: ??? insulin glargine (Lantus;Semglee) (100 unit/mL) subcutaneous injection 40 Units Subcutaneous Nightly ??? aspirin EC 81 mg Oral Daily ??? clopidogreL 75 mg Oral Daily ??? insulin lispro 1-10 Units Subcutaneous Q4H KAN ??? insulin lispro 0-15 Units Subcutaneous TID WC ??? pantoprazole EC 40 mg Oral Daily ??? sodium chloride 0.9 % (flush) 5 mL Intravenous BID ??? rosuvastatin 40 mg Oral QPM ??? metoproloL tartrate 12.5 mg Oral 2 times per day Continuous Infusions: PRN Meds:sodium chloride 0.9 % (flush), lidocaine, nitroGLYcerin, glucose 40% oral geL OR dextrose 10% OR glucagon, acetaminophen Physical Exam: Vital Signs: Last value Range last 12 hrs Temperature Temp: 36.6 ??C (97.9 ??F) Temp: [36.4 ??C (97.5 ??F)-36.6 ??C (97.9 ??F)] Heart Rate Heart Rate: 78 Heart Rate: [73-79] Blood Pressure BP: 147/89 BP: (112-147)/(53-89) Respiratory Rate Resp: 19 Resp: [16-19] SpO2 SpO2: 91 % SpO2: [91 %-100 %] Intake/Output Summary (Last 24 hours) at 09/01/2021 1023 Last data filed at 09/01/2021 0737 Gross per 24 hour Intake 938 ml Output 1000 ml Net -62 ml Patient Vitals for the past 168 hrs: Weight 09/01/21 0600 83.6 kg (184 lb 4.9 oz) 08/31/21 0503 83.6 kg (184 lb 4.9 oz) 08/29/21 2239 84.8 kg (187 lb) Physical Exam Vitals and nursing note reviewed. Constitutional: General: She is not in acute distress. Appearance: Normal appearance. She is obese. HENT: Head: Normocephalic and atraumatic. Mouth/Throat: Comments: Poor dentition. Eyes: General: Right eye: No discharge. Left eye: No discharge. Extraocular Movements: Extraocular movements intact. Conjunctiva/sclera: Conjunctivae normal. Cardiovascular: Rate and Rhythm: Normal rate and regular rhythm. Pulses: Normal pulses. Heart sounds: Normal heart sounds. No murmur heard. No friction rub. No gallop. Pulmonary: Effort: Pulmonary effort is normal. Breath sounds: Normal breath sounds. No wheezing, rhonchi or rales. Abdominal: General: Bowel sounds are normal. Palpations: Abdomen is soft. Musculoskeletal: Right lower leg: No edema. Left lower leg: No edema. Comments: Right wrist is clean, dry and intact. No hematoma or ooze. Radial pulse is present. Intact color, sensation and motion. Capillary refill is under 2 seconds. Skin: General: Skin is warm and dry. Neurological: General: No focal deficit present. Mental Status: She is alert and oriented to person, place, and time. Psychiatric: Mood and Affect: Mood normal. Behavior: Behavior normal. Lab Comments: Recent Labs 09/01/21 0432 08/31/21 0423 08/30/21 0550 WBC 16.8* 7.8 7.6 HGB 14.0 14.3 13.0 HCT 42.5 42.6 39.8 PLATELET 292 255 252 No results for input(s): INR in the last 168 hours. Recent Labs 09/01/21 0432 08/31/21 0423 08/30/21 0550 NA 139 133* 134* K 3.9 4.4 4.0 CL 104 102 103 CO2 23 22 23 BUN 18 16 15 CREATININE 1.07 1.07 1.32* No results for input(s): AST, ALT, ALKPHOS, BILITOT, BILIDIR in the last 168 hours. Recent Labs 09/01/21 0432 08/31/21 0423 08/30/21 0550 CALCIUM 8.7 9.1 8.7 Recent Labs 08/30/21 1105 08/30/21 0550 08/29/21 2334 TROPONINT 0.02* 0.02* 0.02* Pertinent Radiographic/Diagnostic Results: Transthoracic Echocardiogram 08/30/2021 Interpretation Summary Left ventricle is of normal size. Wall thickness is normal. Left ventricular size and systolic function is normal. The left ventricular ejection fraction is 66% by Mcarthur's biplane. There are no segmental wall motion abnormalities. No significant valvular abnormalities. Other details as noted below. As compared to an outside echo report ([facility] Nov 05, 2013), there is no significant change. Left Heart Catheterization 08/31/2021 Preliminary findings: ?? Coronary Angiography: Anatomically normal right dominant circulation ?? LMCA: Without angiographic apparent disease LAD: High grade long tubular ostial stenosis LCx: Minimal luminal irregularities noted RCA: Minimal luminal irregularities noted ?? LVEDP 16 mmHg Contrast 118 ml ?? Assessment: Gabriel Velazquez is a 66 y.o. female with history of non- obstructive ASCVD, possible history of remote CVA, HTN, insulin-dependent DMII, HLD, and CKD III who was transferred from an OSH for management of an NSTEMI. Troponin positive, but flat 0.02, >0.02, >0.02. Admission EKGwith biphasic t- wave in V2. Chest pain free on arrival with IV heparin and NTG infusing. Transthoracic echocardiogram on 08/30/21 with LVEF of 66% and no WMAs. Patient went to the Abatement Worker today and was found to have a high-grade long tubular ostial LAD stenosis. This was successfully stented. Anticipate discharge home today. Plan: NSTEMI Post stenting of long tubular LAD stenosis TTE with LVEF of 66% and no WMAs Continue ASA/Clopidogrel Continue metoprolol tartrate 12.5 mg BID, will resume home dose of metoprolol succinate Continue rosuvastatin Holding home ARB for anticipated contrast load Consults to cardiac rehab as well as food and nutrition placed Insulin-dependent DMII Takes U 500 at home, sugars up with prednisone load, much improved with q 4 insulin dosing overnight Holding oral agents Diabetes management team consult appreciated--will need recommendations for home until endocrine appt in October HTN BP range over the past 24 hours: BP: (112-151)/(53-92) Continue metoprolol tartrate Holding home ARB for anticipated contrast load, will resume for home use HLD Fasting lipids: TC 125, HDL 29, LDL 71 Continue rosuvastatin CKD III Creatinine 1.0 today on day of discharge Avoiding nephrotoxins Will continue to monitor Discussed with MD Annalisa Ambrocio APRN Pager [phone] 09/01/2021 * Cristela Zamarripa APRN - 09/01/2021 9:29 AM EDTSummary: Had a lot of insulin yesterday and lots of prednisone as well...... Images from the original note were not included. . Follow Up Diabetes Consult Patient Interview She is set [place] [facility] [place] It appears based on conversation w Dr Tom Anna, Endocrinology Fellow, PGY-4 yesterday that at home she needs less insulin now that she is on the Trulicity and the dose is increased. AT HOMETakes U-500 CURRENTLY 30 units6:30 A. ~ 12:30 P and evening ~ 7-8 chela. If has lows, predictably mid afternoon and 70-100 (has a meter accessible to at all times) None overnight. DID NOT TAKE TRULICITY AT Monday TIME this week (was in hosptial) .Estimated Creatinine Clearance: 51.1 mL/min (based on SCr of 1.07 mg/dL). . Lab Results Component Value Date CREATININE 1.07 09/01/2021 BUN 18 09/01/2021 NA 139 09/01/2021 K 3.9 09/01/2021 CL 104 09/01/2021 CO2 23 09/01/2021 Possibly going home today Yesterday had 100 mg prednisone and received 149 units of insulin including 80 units of glargine BS range 201-289 Prior Day: 50 mg prednisone and 54 units insulin BS range 131-270 current HA1C is 9.2 On weekly Trulicity and U-500 insulin 30 units QAM and 30 units QAC -recently reduced to 30 TID at meals (BUT EVENING DOSE IS AFTER SUPPER). Objective Temp: [36.2 ??C (97.2 ??F)-36.6 ??C (97.9 ??F)] Heart Rate: [72-79] Resp: [15-27] BP: (90-151)/(53-92) SpO2: [91 %-100 %] Heart Rate from SpO2: [71 bpm-79 bpm] Current Regimen 1. Start Lantus 40 units daily 2. Start Lispro moderate correction scale for BG>140 tid ac ?? CORRECTION BOLUS Custom correction factor 20 BG 140 - 160 Give 1 units BG 161 - 180 Give 2 units BG 181 - 200 Give 3 units BG 201 - 220 Give 4 units BG 221 - 240 Give 5 units BG greater than 240, give 6 units and recheck BG in 2 hours. If BG remains GREATER THAN 240, GIVE 6units (no more than two times) & call for new basal insulin orders. If less than 240 after two hours, give no insulin and resume prior schedule. ?? 3. Start Meal-associated Lispro 1unit Recent Glucose Levels Recent Labs 09/01/21 0736 09/01/21 0404 09/01/21 0019 08/31/21 2238 08/31/21 2026 08/31/21 1614 08/31/21 1123 08/31/21 0907 08/31/21 0714 08/31/21 0407 08/31/21 0226 08/30/21 2328 POCGLU 71 107 129 125 254* 291* 201* 250* 251* 251* 252* 270* ASSESSMENT Patient is a 66 y.o. years old female with PMH significant for DM (Last A1C of 9.2) who was admitted on 08/29/2021 for NSTEMI. Diabetes suboptimally controlled and currently complicated by hyperglycemia and CAD. Currently with variability of blood glucose levels while hospitalized requiring adjustment of insulin regimen and DM medications. Patient's insulin requirements have been coming down significantly since starting her trulicity (which she unfortunately missed yesterday). I do not think thepatient will need the U-500 dosing of insulin any longer as she is only taking 90 units a day currently. We can switch her to a basal + bolus regimen while inpatient, and adjust her medication regimen from there. ?? Seeing endocrine 10/13/2021 OP ?? Plan: SUGGEST: ?? Start Trulicity back up at 1.5 SQ weekly but do weekly start new day Monday as you are going home TODAY ?? Suggest U-500 (as is comfortable with this insulin and has lots supply at home) at 10 units AM, 5 units lunch, 10 units HS. ?? Remember, this is the equivalent of 125 units insulin. Your admitting dose was the = of 450 units insulin ?? Your last INSULIN GLARGINE was 40 units at 8:30 PM yesterday. You also had 40 units glargine in the AM. ?? Continue checking 4 times a day for data collection and safety. ?? Contact PCP or current director fixed income if consistently BS < 70, > 300. ?? Drink PLENTY of water and stay hydrated! 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 Discussed with Samantha and primary team 30 minutes of this 35 minute visit was spent with the patient in counseling on diabetes and treatment plan, reviewing all glucose and insulin data as well as relevant laboratory results with the patient, and coordination of care on the inpatient unit including nursing and primary team. * Nica Chacon RN - 09/01/2021 5:50 AM EDT OUTCOME EVALUATION NOTE: A/O X4, VSS on RA. Currently in NSR (see scan). Ambulated independently in room. Night otherwise uneventful PLAN MOVING FORWARD: monitor INDIVIDUALIZED FALL PREVENTION INTERVENTIONS: Patient-specific fall risk factors per assessment: [current deficits]: Tele, IV, unfamiliar environment Assistance [level of assistance required for transfers and ambulation]: independent Supervision [direct monitoring required during toileting and ADLs]: Independent Surveillance [continuous indirect monitoring]: Tele, pulse ox, purposeful hourly rounding Patient-specific fall prevention interventions for sensory deficits provided, if applicable: Non-skid socks on, room well lit and free of clutter, call foss within reach, personal items within reach,upper side rails raised X2, bed in lowest possible position CPG GOAL OUTCOME EVALUATION: * Mary Ferguson MD - 08/31/2021 12:26 PM EDT Images from the original note were not included. Inpatient Cardiology Progress Note ?? I have seen and examined this patient and agree with the clinic note, assessment and plan. I have discussed with Service MODE ?? This is a 66 year old woman with history of non-obstructive CAD (cardiac catheterization in 2014), stroke, diabetes. She presents now with chest pain relieved by SLNTG and troponin 0.02 X 2. Note that serum creatinine is 1.32, HbA1c is 9.2. She is requiring low dose IV NTG. ?? We discussed options for management and feel that it would be reasonable to proceed with cardiac catheterization which she had today; LAD lesion found and she had percutaneous coronary intervention with drug-eluding stent. ?? Mary Ferguson MD, Ladi, FACC, FNLA Cardiology Service Attending ?? Patient Name: Gabriel Velazquez Service: LEATHER COVERER / PA Responsible Attending: Mary Ferguson MD Reason for continued hospitalization: NSTEMI Post cardiac cath, with LAD stenting Active Problems: Active Hospital Problems Diagnosis ??? NSTEMI (non-ST elevated myocardial infarction) Resolved Hospital Problems No resolved problems to display. Interval History: Gabriel Velazquez went to the Abatement Worker this morning and received a long LAD stent via her right radial artery. The patient did well with this procedure and was feeling better after the stent was placed (she did have her anginal symptoms with balloon inflations). Aware of the plan for hopeful discharge tomorrow pending lab review. Review of Systems: Review of Systems Respiratory: Negative for shortness of breath. Cardiovascular: Negative for chest pain. All other systems reviewed and are negative. Telemetry: 60-90 sinus rhythm, sinus arrhythmia Meds: Scheduled Meds: ??? [START ON 09/01/2021] aspirin EC 81 mg Oral Daily ??? [START ON 09/01/2021] clopidogreL 75 mg Oral Daily ??? pantoprazole EC 40 mg Oral Daily ??? sodium chloride 0.9 % (flush) 5 mL Intravenous BID ??? rosuvastatin 40 mg Oral QPM ??? metoproloL tartrate 12.5 mg Oral 2 times per day ??? insulin glargine (Lantus;Semglee) (100 unit/mL) subcutaneous injection 40 Units Subcutaneous Daily with lunch ??? insulin lispro 0-20 Units Subcutaneous TID WC ? ? insulin lispro 1-6 Units Subcutaneous 4 Times Daily AC & HS Continuous Infusions: ??? sodium chloride 0.9% 50 mL/hr (08/31/21 1026) PRN Meds:sodium chloride 0.9 % (flush), lidocaine, nitroGLYcerin, glucose 40% oral geL OR dextrose 10% OR glucagon, acetaminophen Physical Exam: Vital Signs: Last value Range last 12 hrs Temperature Temp: 36.5 ??C (97.7 ??F) Temp: [36.4 ??C (97.5 ??F)-36.5 ??C (97.7 ??F)] Heart Rate Heart Rate: 76 Heart Rate: [62-79] Blood Pressure BP: 151/82 BP: (90-151)/(66-92) Respiratory Rate Resp: 17 Resp: [15-27] SpO2 SpO2: 98 % SpO2: [93 %-98 %] Intake/Output Summary (Last 24 hours) at 08/31/2021 1231 Last data filed at 08/31/2021 1010 Gross per 24 hour Intake 1326 ml Output 2425 ml Net -1099 ml Patient Vitals for the past 168 hrs: Weight 08/31/21 0503 83.6 kg (184 lb 4.9 oz) 08/29/21 2239 84.8 kg (187 lb) Physical Exam Constitutional: General: She is not in acute distress. Appearance: Normal appearance. She is obese. HENT: Head: Normocephalic and atraumatic. Mouth/Throat: Comments: Poor dentition. Eyes: General: Right eye: No discharge. Left eye: No discharge. Extraocular Movements: Extraocular movements intact. Conjunctiva/sclera: Conjunctivae normal. Cardiovascular: Rate and Rhythm: Normal rate and regular rhythm. Pulses: Normal pulses. Heart sounds: Normal heart sounds. No murmur heard. No friction rub. No gallop. Pulmonary: Effort: Pulmonary effort is normal. Breath sounds: Normal breath sounds. No wheezing, rhonchi or rales. Abdominal: General: Bowel sounds are normal. Palpations: Abdomen is soft. Musculoskeletal: Right lower leg: No edema. Left lower leg: No edema. Comments: Right wrist is clean, dry and intact. No hematoma or ooze. Radial pulse is present. Intact color, sensation and motion. Capillary refill is under 2 seconds. Skin: General: Skin is warm and dry. Neurological: General: No focal deficit present. Mental Status: She is alert and oriented to person, place, and time. Psychiatric: Mood and Affect: Mood normal. Behavior: Behavior normal. Lab Comments: Recent Labs 08/31/21 0423 08/30/21 0550 08/29/21 2334 WBC 7.8 7.6 10.4* HGB 14.3 13.0 12.8 HCT 42.6 39.8 39.8 PLATELET 255 252 262 No results for input(s): INR in the last 168 hours. Recent Labs 08/31/21 0423 08/30/21 0550 08/29/21 2334 NA 133* 134* 135 K 4.4 4.0 4.2 CL 102 103 102 CO2 22 23 23 BUN 16 15 16 CREATININE 1.07 1.32* 1.38* No results for input(s): AST, ALT, ALKPHOS, BILITOT, BILIDIR in the last 168 hours. Recent Labs 08/31/21 0423 08/30/21 0550 08/29/21 2334 CALCIUM 9.1 8.7 8.3* Recent Labs 08/30/21 1105 08/30/21 0550 08/29/21 2334 TROPONINT 0.02* 0.02* 0.02* Pertinent Radiographic/Diagnostic Results: Transthoracic Echocardiogram 08/30/2021 Interpretation Summary Left ventricle is of normal size. Wall thickness is normal. Left ventricular size and systolic function is normal. The left ventricular ejection fraction is 66% by Mcarthur's biplane. There are no segmental wall motion abnormalities. No significant valvular abnormalities. Other details as noted below. As compared to an outside echo report ([facility] Nov 05, 2013), there is no significant change. Left Heart Catheterization 08/31/2021 Preliminary findings: ?? Coronary Angiography: Anatomically normal right dominant circulation ?? LMCA: Without angiographic apparent disease LAD: High grade long tubular ostial stenosis LCx: Minimal luminal irregularities noted RCA: Minimal luminal irregularities noted ?? LVEDP 16 mmHg Contrast 118 ml ?? Assessment: Gabriel Velazquez is a 66 y.o. female with history of non- obstructive ASCVD, possible history of remote CVA, HTN, insulin-dependent DMII, HLD, and CKD III who was transferred from an OSH for management of an NSTEMI. Troponin positive, but flat 0.02, >0.02, >0.02. Admission EKGwith biphasic t- wave in V2. Chest pain free on arrival with IV heparin and NTG infusing. Transthoracic echocardiogram on 08/30/21 with LVEF of 66% and no WMAs. Patient went to the Abatement Worker today and was found to have a high-grade long tubular ostial LAD stenosis. This was successfully stented. Anticipate discharge home tomorrow after lab review and consultsto nutrition and cardiac rehab. Plan: NSTEMI Post long tubular LAD stenosis TTE with LVEF of 66% and no WMAs Continue ASA/Clopidogrel Continue metoprolol tartrate 12.5 mg BID Continue rosuvastatin Holding home ARB for anticipated contrast load Insulin-dependent DMII Takes U 500 at home, sugars up overnight with prednisone load Holding oral agents Diabetes management team consul appreciated Adjustments made to insulin therapy per their recommendations Close monitoring with FSG HTN BP range over the past 24 hours: BP: (90-151)/(55-92) Continue metoprolol tartrate Holing home ARB for anticipated contrast load HLD Fasting lipids: TC 125, HDL 29, LDL 71 Continue rosuvastatin CKD III Creatinine appears to be ~1.3 Avoiding nephrotoxins Will continue to monitor Discussed with MD Annalisa Ambrocio, SLOT SHIFT MANAGER Pager [phone] 08/31/2021 * Mitzy Sanchez MD - 08/31/2021 9:59 AM EDT Follow Up Diabetes Consult 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 Objective Temp: [36.3 ??C (97.3 ??F)-37 ??C (98.6 ??F)] Heart Rate: [62-84] Resp: [15-18] BP: (123-148)/(55-69) SpO2: [94 %-100 %] Heart Rate from SpO2: -- Current Regimen from previous note insulin glargine 40 units daily meal associated lispro 1 unit : 5gm carb ratio for each meal tid ac lispro moderate correction scale for BG > 140 as below Diet Carb Controlled Diet Recent Glucose Levels Recent Labs 08/31/21 0907 08/31/21 0714 08/31/21 0407 08/31/21 0226 08/30/21 2328 08/30/21202108/30/21 1603 08/30/21 1134 08/30/21 0723 08/30/21 0140 08/29/21 2242 POCGLU 250* 251* 251* 252* 270* 273* 131 136 211* 208* 189 ASSESSMENT Patient is a 66 y.o. years old female with PMH significant for DM (Last A1C of 9.2) who was admitted on 08/29/2021 for NSTEMI. Diabetes suboptimally controlled and currently complicated by hyperglycemia and CAD. Currently with variability of blood glucose levels while hospitalized requiring adjustment of insulin regimen and DM medications. Patient's insulin requirements have been coming down significantly since starting her trulicity (which she unfortunately missed yesterday). I do not think thepatient will need the U-500 dosing of insulin any longer as she is only taking 90 units a day currently. We can switch her to a basal + bolus regimen while inpatient, and adjust her medication regimen from there. Patient intermittently has been refusing her mealtime insulin, and also received a total of 150mg of prednisone yesterday for contrast allergy which resulted in hyperglycemia. PLAN Continue insulin glargine 40 units daily => addendum 7p: BG remains high up near 300 now and the effect of Trulicity weekly is completelyout of her system, no longer NPO, so we will modify lantus to 40u q12h from this evening as the prednisone effect will last until tomorrow am => then will change Lantus to qhs tomorrow. She used U500 30-50u TID at home plus trulicity pen). Continue meal associated lispro 1 unit : 5gm carb ratio for each meal tid ac Modify lispro custom correction scale for BG > 140 q4 as below CORRECTION BOLUS Custom correction factor 10-20 BG 140 - 160 Give 1 units BG 161 - 180 Give 2 units BG 181 - 200 Give 4 units BG 201 - 220 Give 6 units BG 221 - 240 Give 8 units BG greater than 240, give 10 units and recheck BG in 2 hours. If BG remains GREATER THAN 240, GIVE 10 units (no more than two times) & call for new basal insulin orders. If less than 240 after two hours, give no insulin and resume prior schedule Diet Carb Controlled Diet *All orders above were modified for team. Tom Anna DO [facility] [place] Endocrinology Fellow, PGY-[address] Sanchez 20 minutes of this 35 minute visit was spent with the patient in counseling on diabetes and treatment plan, reviewing all glucose and insulin data as well as relevant laboratory results with the patient, and coordination of care on the inpatient unit including nursing and primary team. I have seen the patient and reviewed Dr. Tom Anna's above history and I agree with the details as written. The assessment and plan were formulated in discussion with me and I agree with them as documented. Mitzy Sanchez MD, PhD, FACP, FACE * Mary Ferguson MD - 08/30/2021 12:06 PM EDT Inpatient Cardiology Progress Note I have seen and examined this patient and agree with the clinic note, assessment and plan. I have discussed with Service MODE, Mr. Sebastián Newman This is a 66 year old woman with history of non-obstructive CAD (cardiac catheterization in 2014), stroke, diabetes. She presents now with chest pain relieved by SLNTG and troponin 0.02 X 2. Note that serum creatinine is 1.32, HbA1c is 9.2. She is requiring low dose IV NTG. We discussed options for management and feel that it would be reasonable to proceed with cardiac catheterization Mary Ferguson MD, Ladi, FACC, FNLA Cardiology Service Attending Patient Name: Gabriel Velazquez Service: LEATHER COVERER / PA Responsible Attending: Mary Ferguson MD Reason for continued hospitalization: NSTEMI type I vs type II, awaiting further ischemic evaluation Active Problems: Active Hospital Problems Diagnosis ??? NSTEMI (non-ST elevated myocardial infarction) Resolved Hospital Problems No resolved problems to display. Interval History: Gabriel Velazquez arrived from an outside hospital aver ruling in for an NSTEMI, troponin mildly elevated but flat here. Was continued on IV heparin and IV NTG infusions. Currently chest pain and dyspnea free at time of interview. Agreeable for ischemic evaluation; TTE then LHC today. NPO since midnight. Review of Systems: Review of Systems Constitutional: Negative for chills, diaphoresis, fatigue and fever. Respiratory: Positive for shortness of breath (resolved). Negative for cough, chest tightness and wheezing. Cardiovascular: Positive for chest pain (resolved on admission). Negative for palpitations and leg swelling. Gastrointestinal: Negative for constipation, diarrhea, nausea and vomiting. Neurological: Negative for dizziness, syncope, speech difficulty and light-headedness. Telemetry: Sinus rhythm without remarkable ectopy HR: 60-70s Meds: Scheduled Meds: ??? aspirin EC 81 mg Oral Daily ??? clopidogreL 75 mg Oral Daily ??? pantoprazole EC 40 mg Oral Daily ??? sodium chloride 0.9 % (flush) 5 mL Intravenous BID ??? rosuvastatin 40 mg Oral QPM ??? metoproloL tartrate 12.5 mg Oral 2 times per day ??? insulin glargine (Lantus;Semglee) (100 unit/mL) subcutaneous injection 40 Units Subcutaneous Daily with lunch ??? insulin lispro 1-6 Units Subcutaneous TID AC ??? insulin lispro 0-20 Units Subcutaneous TID WC Continuous Infusions: ??? heparin (porcine) infusion 1,000 Units/hr (08/29/21 2315) ??? nitroGLYcerin 15 mcg/min (08/29/21 2308) PRN Meds:sodium chloride 0.9 % (flush), lidocaine, nitroGLYcerin, glucose 40% oral geL OR dextrose 10% OR glucagon, acetaminophen, heparin (porcine) infusion AND heparin (porcine) Physical Exam: Vital Signs: Last value Range last 12 hrs Temperature Temp: 37 ??C (98.6 ??F) Temp: [36.5 ??C (97.7 ??F)-37 ??C (98.6 ??F)] Heart Rate Heart Rate: 73 Heart Rate: [73-77] Blood Pressure BP: 132/64 BP: (132-152)/(64-85) Respiratory Rate Resp: 17 Resp: [17-19] SpO2 SpO2: 100 % SpO2: [92 %-100 %] Physical Exam Constitutional: General: She is not in acute distress. Appearance: Normal appearance. She is obese. HENT: Head: Normocephalic and atraumatic. Mouth/Throat: Comments: Poor dentition. Eyes: General: Right eye: No discharge. Left eye: No discharge. Extraocular Movements: Extraocular movements intact. Conjunctiva/sclera: Conjunctivae normal. Cardiovascular: Rate and Rhythm: Normal rate and regular rhythm. Pulses: Normal pulses. Heart sounds: Normal heart sounds. No murmur heard. No friction rub. No gallop. Pulmonary: Effort: Pulmonary effort is normal. Breath sounds: Normal breath sounds. No wheezing, rhonchi or rales. Abdominal: General: Bowel sounds are normal. There is no distension. Palpations: Abdomen is soft. Tenderness: There is no abdominal tenderness. There is no guarding. Musculoskeletal: Right lower leg: No edema. Left lower leg: No edema. Skin: General: Skin is warm and dry. Neurological: General: No focal deficit present. Mental Status: She is alert and oriented to person, place, and time. Psychiatric: Mood and Affect: Mood normal. Behavior: Behavior normal. Lab Comments: Recent Labs 08/30/21 0550 08/29/21 2334 WBC 7.6 10.4* HGB 13.0 12.8 HCT 39.8 39.8 PLATELET 252 262 No results for input(s): INR in the last 168 hours. Recent Labs 08/30/21 0550 08/29/21 2334 NA 134* 135 K 4.0 4.2 CL 103 102 CO2 23 23 BUN 15 16 CREATININE 1.32* 1.38* No results for input(s): AST, ALT, ALKPHOS, BILITOT, BILIDIR in the last 168 hours. Recent Labs 08/30/21 0550 08/29/21 2334 CALCIUM 8.7 8.3* Recent Labs 08/30/21 1105 08/30/21 0550 08/29/21 2334 TROPONINT 0.02* 0.02* 0.02* Pertinent Radiographic/Diagnostic Results: Transthoracic Echocardiogram 08/30/2021 Interpretation Summary Left ventricle is of normal size. Wall thickness is normal. Left ventricular size and systolic function is normal. The left ventricular ejection fraction is 66% by Mcarthur's biplane. There are no segmental wall motion abnormalities. No significant valvular abnormalities. Other details as noted below. As compared to an outside echo report ([facility] Nov 05, 2013), there is no significant change. Left Heart Catheterization 08/30/2021 Awaiting study Assessment: Gabriel Velazquez is a 66 y.o. female with history of non- obstructive ASCVD, possible history of remote CVA, HTN, insulin-dependent DMII, HLD, and CKD III who was transferred from an OSH for management of an NSTEMI. Troponin positive, but flat 0.02, >0.02, >0.02. Admission EKGwith biphasic t- wave in V2. Chest pain free on arrival with IV heparin and NTG infusing. Transthoracic echocardiogram on 08/30/21 with LVEF of 66% and no WMAs. Plan to proceed with coronary catheterization today. Plan: NSTEMI type I vs type II Telemetry monitoring Chest pain protocol Troponin 0.02x3 TTE with LVEF of 66% and no WMAs Continue IV heparin and NTG infusion Continue ASA/Clopidogrel Continue metoprolol tartrate 12.5mg BID Continue rosuvastatin Holding home ARB for anticipated contrast load NPO since midnight for [facility] today Insulin-dependent DMII Takes U500 at home Holding oral agents Diabetes management team consul appreciated Adjustments made to insulin therapy per their recommendations Close monitoring with FSG HTN BP range over the past 12 hours: BP: (132-152)/(64-85) Continue metoprolol tartrate Holing home ARB for anticipated contrast load Will continue to titrate as tolerated HLD Fasting lipids: TC 125, HDL 29, LDL 71 Continue rosuvastatin CKDIII Creatinine appears to be ~1.3 Avoiding nephrotoxins Will continue to monitor JUAN Puentes 08/30/2021 documented in this encounter H&P Notes * Geena Epperson MD - 08/29/2021 8:50 PM EDT Cardiology History and Physical Patient Name: Gabriel Velazquez Date of : 1955 Age: 66 y.o. Hospital Admit Date: 08/29/2021 Inpatient Attending: Dr. Ferguson PCP: Haylee Baptiste MD Presenting Diagnosis/Chief Complaint: NSTEMI/Chest pain. Transferred from [facility] for further management. History of Present Illness: Gabriel Velazquez is a 66 y.o. female with PMH of non obstructive CAD in 2014, ? Remote hx of CVA, HTN, IDDM, HLD, fibromyalgia, CKD, cervical radiculopathy/spinal cord compression who presented to [facility] with chest pain. Pt reports chest pain x 3 night at night while asleep usually around 4AM. Pain was initially mild but last night she had worse pain, 10/10. Pain is stabbing like, below the left breast along with left arm pain. She initially thought it was her cervical spinal cord compressive symptoms but given worsening pain blossom yesterday got her concerned. She was able to sleep yesterday but woke up at 9AM withsimilar pain, took 2 SL nitro with some improvement in pain. She called EMS for lingering pain, wasgiven ASA 243 and nitro by EMS with improvement in pain. Pt had waxing and waning pain the ER, was started on nitro drip. Denies any other associated symptoms. No previous similar episodes. 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 In OSH vitals were stable. Labs H&H 14/43, Plt 325, BUN 14, Cr 14, Trop 161>265 ( ULN 60), pro BNP 919. CXR with no acute findings. Pt received ASA, plavix, heparin drip, SL nitro, nitro drip,metoprolol and is now transferred here for further management. At the time of my evaluation, reports mild tenderness below the left breast area. Denies nausea, SOB, palpitations, orthopnea, PND or pedal edema. Has received all her COVID vaccines. REVIEW OF SYSTEMS: Constitutional: weight loss, fatigue, weakness. Psychological: Anxiety / Depression Ophthalmic: blurred vision or watery or red eyes. ENT: Negative for ear discharge or running nose or cold or throat swelling. Allergy: negative for itchy/watery eyes Heme: Negative for bleeding, bruising, fatigue, jaundice, night sweats Endocrine: negative for polydipsia/polyuria/ heat intolerance Respiratory: As as HPI CVS: As in HPI GI: No abd pain, change in bowel habits, or black or bloody stools Genitourinary: No dysuria, trouble voiding, or hematuria Neurological: Negative for dizziness, seizures, syncope, facial asymmetry, speech difficulty, light-headedness, numbness and headaches. Hematological: Negative. MSK: negative for joint pain, joint stiffness or joint swelling Psychiatric/Behavioral: Negative. Previous Diagnostics: Stress: Treadmill stress test: 2014 Negative for ischemia Echo: 01/2015 EF preserved, no WMA or valvular heart disease Cath: 01/2015 Coronary Angiography: Dominance: Right Left Main The left main was normal. Left Anterior Descending There was a 20% hazy single discrete stenosis of the ostial segment of the left anterior descending artery (LAD). The LAD was large. The mid segment of the LAD had a hazy long segmental 40% stenosis. Left Circumflex The left circumflex (LCX) was normal. Right Coronary Artery The right coronary artery (RCA) was normal. Conclusions: * Nonobstructive coronary artery disease Past Medical History: Past Medical History: Diagnosis Date ??? CAD (coronary artery disease) ??? Cervical radiculopathy at C7 ??? CKD (chronic kidney disease) stage 3, GFR 30-59 ml/min ??? Diabetes mellitus ??? GERD (gastroesophageal reflux disease) ??? Hiatal hernia ??? HLD (hyperlipidemia) ??? Hypertension Surgical History/Problems: Past Surgical History: Procedure Laterality Date ??? IR NEPHROSTOMY TUBE PLACEMENT PERCUTANEOUS LEFT 09/27/2018 IR Nephrostomy Tube Placement Percutaneous Left 09/27/2018 Justin De La Cruz MD [facility] INTERVENTIONL RAD Significant Family History: Family History Problem Relation Age of Onset ??? Heart Disease Mother ??? Diabetes Mother ??? Diabetes Father ??? Cancer Neg Hx Social History: Social History Socioeconomic History ??? Marital status: Spouse name: Not on file ??? Number of children: Not on file ??? Years of education: Not on file ??? Highest education level: Not on file Occupational History ??? Not on file Tobacco Use ??? Smoking status: Never Smoker ??? Smokeless tobacco: Never Used Substance and Sexual Activity ??? Alcohol use: No ??? Drug use: No ??? Sexual activity: Not on file Other Topics Concern ??? Not on file Social History Narrative ??? Not on file Social Determinants of Health Financial Resource Strain: Not on file Food Insecurity: Not on file Transportation Needs: Not on file Physical Activity: Not on file Housing Stability: Not on file PHYSICAL EXAM: Last set of vital signs: BP 160/63 (BP Location (NBP): Right arm, Patient Position: Sitting) Pulse 64 Temp 36.6 ??C (97.9 ??F) (Oral) Resp 20 Ht 157.5 cm (5' 2) Wt 84.8 kg (187 lb) SpO2 96% BMI 34.20 kg/m?? Gen/Constitutional: Comfortable, NAD HEENT: ANNIE, EOMI, No conjunctival pallor or scleral icterus, JVP not elevated Cardiac/CVS: RRR, normal S1/S2. No S3 or S4, no m/g/r Pulm/Chest: CTAB, no wheezing or crackles Abd/GI: Soft., non tender, non distended, BS+ Musculoskeletal: No pitting edema, Pulses palpable B/L, no calf tenderness, swelling, or erythema. 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 No sensory loss. No gait ataxia. Skin/Integumentary: No ulcer or rash Diagnostics: EKG: NSR, biphasic T wave? Wellen's sign No current facility-administered medications on file prior to encounter. Current Outpatient Medications on File Prior to Encounter Medication Sig Dispense Refill ??? nitroGLYcerin (Nitrostat) 0.4 mg Tablet, Sublingual Nitrostat 0.[address] 1 tablet as needed by sublingual route. ??? olmesartan (BENICAR) 20 mg Tablet Daily. ??? pantoprazole EC (Protonix) 20 mg Tablet, Delayed Release (E.C.) Daily. ??? isosorbide mononitrate (IMDUR) 60 mg Tablet Sustained Release 24 hr Daily. ??? metoprolol succinate XL (Toprol-XL) 50 mg Tablet Sustained Release 24 hr Daily. ??? clopidogrel (PLAVIX) 75 mg Tablet Take 75 mg by mouth daily. ??? atorvastatin (LIPITOR) 80 mg tablet 80MG = 1 Tablet(s), PO, Once daily ??? ASPIRIN ORAL Take 81 mg by mouth. ??? albuteroL 90 mcg/actuation HFA Aerosol Inhaler Every 4 hours. ??? insulin regular human U-500 (HumuLIN R U-500, Conc, Kwikpen) 500 unit/mL (3 mL) Insulin Pen 30Ufasting, 30U qAC ??? cyclobenzaprine (Flexeril) 5 mg Tablet Take 1 tablet by mouth nightly. 30 tablet 11 ??? ondansetron (ZOFRAN-ODT) 4 mg Tablet, Rapid Dissolve DISSOLVE ONE TABLET ON THE TONGUE EVERY 8 HOURS NEEDED FOR NAUSEA VOMITING 0 ??? nabumetone (RELAFEN) 750 mg Tablet Take 750 mg by mouth 2 times daily. LABS: Recent Results (from the past 24 hour(s)) POCT Glucose Result Value Ref Range POC Glucose 189 65 - 199 mg/dL BMP w/fasting Glucose Result Value Ref Range Glucose Fasting 236 (H) 65 - 99 mg/dL BUN 16 8 - 18 mg/dL Creatinine 1.38 (H) 0.70 - 1.20 mg/dL Sodium 135 135 - 145 mmol/L Potassium 4.2 3.5 - 5.0 mmol/L Chloride 102 98 - 107 mmol/L CO2 23 22 - 31 mmol/L Anion Gap 10 5 - 15 mmol/L Calcium 8.3 (L) 8.5 - 10.5 mg/dL Estimated GFR 42 (L) >=60 mL/min/1.73 m?? Heparin (unfractionated) Level Result Value Ref Range Heparin UFH Level 0.38 IU/mL Hemogram Result Value Ref Range WBC 10.4 (H) 4.0 - 9.5 x10(3)/mcL RBC 4.66 4.00 - 5.21 x10(6)/mcL Hemoglobin 12.8 11.7 - 15.5 g/dL Hematocrit 39.8 35.7 - 45.8 % MCV 85.4 82.6 - 94.4 fL MCH 27.5 27.1 - 32.0 pg MCHC 32.2 31.7 - 35.0 g/dL Platelets 262 145 - 357 x10(3)/mcL RDWSD 40.4 37.0 - 46.0 fL RDWCV 13.2 11.5 - 14.1 % MPV 10.8 7.6 - 12.9 fL nRBC % Auto 0.0 % nRBC Abs Auto 0.000 0.000 - 0.000 x10(3)/mcL Differential, Automated Result Value Ref Range Neutrophils % 53.3 % Neutr Abs (ANC) 5.53 1.70 - 6.10 x10(3)/mcL Lymphocytes % 35.9 % Lymphocytes Abs 3.7 (H) 0.9 - 3.2 x10(3)/mcL Monocytes % 4.2 % Monocyte Abs 0.4 0.3 - 0.9 x10(3)/mcL Eosinophils % 5.0 % Eosinophils Abs 0.5 (H) 0.0 - 0.4 x10(3)/mcL Basophils % 1.2 % Basophils Abs 0.1 0.0 - 0.1 x10(3)/mcL Immature Gran % 0.40 % Shital Gran Abs 0.04 0.00 - 0.04 x10(3)/mcL Troponin Result Value Ref Range Troponin-T 0.02 (H) 0.00 - 0.00 ng/mL Assessment and plan: Gabriel Velazquez is a 66 y.o. female with PMH of non obstructive CAD in 2014, CVA, HTN, IDDM, HLD who presented to [facility] with chest pain. Pt was found to have elevated trop initially with subtle STD in inferior leads as per transfer note but now with biphasic T wave in V2 concerning for Wellen's sign. Pt received ASA 342, plavix, heparin, nitro drip and is now transferred here for further management of NSTEMI. Pt continue to have waxing and waning pain requiring initiation of nitro drip. #NSTEMI: Concerning for type I. #hx of Non Obstructive CAD: -Admit to cardiology -Monitor on Tele -Serial EKG, cycle trops -s/p ASA 325 mg -continue ASA 81 mg daily, Plavix 75 mg daily -continue metoprolol, lipitor -continue heparin drip -Nitro prn -NPO for cath in the AM. -check A1c, lipids, TSH, LFTs -TTE #IDDM: -Takes U500 30U qAM and 30U qAC at home -start resistant scale SSI -check A1c -monitor FSG #CKD: -Cr is at baseline of around 1.4 -1.6 -monitor renal functions -gentle hydration before cath. #GERD: #Hiatal hernia -continue pantoprazole #Code Status: Full #Diet: NPO for possible LHC tomorrow #DVT PPx: On heparin drip Geena Epperson MD 08/30/2021 Pager # [phone] documented in this encounter Miscellaneous Notes * Consult Note - Cindy Comer RN - 09/01/2021 8:42 AM EDT Consult received. Spoke with primary RN pt to DC today at 11. No need for additional access. Advised RN to take out PIV for discharge * Plan of Care - Geena Epperson MD - 08/31/2021 10:53 PM EDT Post Cardiac Cath Note S: Patient reports no chest pain or shortness of breath. Patient reports no wrist pain O: No active bleeding noted at cath site, right radial. No hematoma, or tenderness noted. Radial pulse intact. Last value Range last 8 hrs Temperature Temp: 36.2 ??C (97.2 ??F) Temp: [36.2 ??C (97.2 ??F)] Heart Rate Heart Rate: 79 Heart Rate: [79] Blood Pressure BP: 151/81 BP: (149-151)/(81-83) Respiratory Rate Resp: 18 Resp: [18] SpO2 SpO2: 100 % SpO2: [100 %] A/P. Post cardiac cath without complications. * Initial Assessments - Vianney Phillips RN - 08/31/2021 3:02 PM EDT Office of Care Management Initial Assessment Vianney Phillips RN reviewed record and discussed patient with Care Team. Source of Information: Team, bedside nurse, medical record, and Patient Gabriel Velazquez Introduced self/reviewed role; services accepted. Reason for Hospitalization: NSTEMI Covid Vaccination Status: 1st, 2nd & booster (X4 w/Moderna) Last COVID test: TBD Past medical History: Past Medical History: Diagnosis Date ??? CAD (coronary artery disease) ??? Cervical radiculopathy at C7 ??? CKD (chronic kidney disease) stage 3, GFR 30-59 ml/min ??? Diabetes mellitus ??? GERD (gastroesophageal reflux disease) ??? Hiatal hernia ??? HLD (hyperlipidemia) ??? Hypertension Hospitalizations Within the Past 30 Days: no previous admission in last 30 days Current Decision-Making Capacity: Self Patient to do AD today at her request - RS notified. If AD's have not been completed the following surrogate would be surrogate decision maker per [place] decision making law. (Only good for 180 days) Any patient receiving care in [place] must abide by [place] law. The hierarchy for surrogate decision making is: (a) Patient???s spouse, or civil union partner or common law spouse unless there is a divorce proceeding, separation agreement, or restraining order limiting that person???s relationship with the patient. (b) Any adult son or daughter of the patient. (c) Either parent of the patient. (d) Any adult brother or sister of the patient. (e) Any adult grandchild of the patient. (f) Any grandparent of the patient. (g) Any adult aunt, uncle, niece, or nephew of the patient. (h) A close friend of the patient. (i) The agent with financial power of blood bank credit clerk or a conservator appointed in accordance with RSA 464-A. (j) The guardian of the patient???s estate. Advance Care Planning: Attempt Cardiopulmonary Resuscitation - Inpatient <no information> -Advanced Directive: Other (Requesting to do AD today - RS notified.) Current Coping/Education/Information Needs: Pending hospital course. Current Functional Ability: Independent Functional Status Prior to Admission: Independent Prior ADLs & IADLs: Independent with all ADLs & IADLs Home Environment: Others in the home: spouse. Current Living Arrangements: home/apartment/condo. Accessibility Concerns:2 GREGORY double level home.. Resource / Environmental Concerns: Resource/Environmental Concerns: none Current DME: other (see comments) (Hand rails in the stairways.) Home Address confirmed as: [address] [place] [phone] Social & Family Supports: All names listed below confirmed with patient as current and correct Extended Emergency Contact Information Primary Emergency Contact: Loren Chou [facility] Relation: Child Secondary Emergency Contact: Gilberto Velazquez [address]: [address] [place] [phone] [facility] Relation: Spouse Current Care Provided by: self Provides Primary Care For: no one Caregiver if needed: child(claudia), adult Quality of Family relationships: helpful, involved, supportive Community Resources being provided currently: none Behavioral Health History: Denies any - does report some recent family stressors. Substance Use/Abuse listed: Social History Tobacco Use Smoking Status Never Smoker Smokeless Tobacco Never Used In the past year have you used an illegal drug or used a prescription medication for non-medical reasons?: No 0 No problems reported 1-2 Low level 3-5 Moderate level 6-8 Substantial level 9- 10 Severe level In the past year have you had 4 or more drinks a day containing alcohol?: No 0 to 7 points: Low risk 8 to 15 points: Medium risk 16 to 19 points: High risk 20 to 40 points: Addiction likely Other Pertinent/Service Specific Information: Pending hospital course. Health/Prescription Coverage: Primary Insurance: P Payor: MVP / Plan: [facility] [place] / Product Type: *No Product type* / Secondary Insurance: N/A Secondary Insurance? (Only Medicare A&B): No ; Prescription Coverage: Yes Preferred Pharmacy: [id number] - [place], [place] - [address] [place] [id number] Status: Patient is a : No Primary Care Provider: Halyee Baptiste MD [phone] Patient/Caregiver Goals of Treatment: When medically stable discharge to home. Potential Needs for Transition of Care: outpatient care Agency Referrals: Not Applicable Transportation: no concerns Transportation Anticipated: family or friend will provide (Maurice (spouse)) Concerns to be Addressed: discharge planning Assessment: Patient is admitted to cardiology service for NSTEMI Plan: Monitor patent progress. Assess care needs and make referrals as needed. A member of the Care Management team will continue to monitor progress, follow for continuity of care and assist with transition of care planning. * Consult Note - Gisselle Garcia RN - 08/31/2021 1:56 PM EDT Gabriel Velazquez was seen today by Cardiac Rehabilitation for: NSTEMI, s/p PCI Activity evaluation - Patient resting in bed post cath. Encouraged her to walk with nursing once medically appropriate. Will check with her tomorrow and perform activity eval if still needed. Educational packet regarding CAD, cardiac risk factors, and managing angina given to the patient. Reviewed managing angina /use of sl nitroglycerin. Patient states she has nitro at home and is ableto describe the directions for use. Mediterranean diet guidelines briefly reviewed. Given parameters for home exercise. Participation in an outpatient cardiac rehabilitation program at [facility] was discussed. Patient agrees to a referral to this program. The referral will be sent at discharge and the patient should be contacted by the Program within 1- 2 weeks from discharge. * Brief Op Note - Jonnathan Nielsen MD - 08/31/2021 10:05 AM EDT Images from the original note were not included. 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 House Operator: * Jonnathan Nielsen MD - Primary * Soraya Martinez MD - Fellow * Colin Johnson PA - Physician Calculating Machine Mechanic Preoperative diagnosis: nstemi Postoperative diagnosis: nstemi Preliminary Cardiac Catheterization Procedure Note: Procedure(s) performed: Coronary Angiography, Left Heart Cath, PCI-Stent Baseline Frailty Assessment: Definitions from [place] Study of Health and Aging Clinical Frailty Scale: 3: MANAGING WELL: well-controlled medical problems, no exercise more than routine walking A time-out was conducted prior to the start of the procedure to verify the correct patient and procedure, procedure location, and all relevant critical information. Access: Right radial: 6 Fr Preliminary findings: Coronary Angiography: Anatomically normal right dominant circulation LMCA: Without angiographic apparent disease LAD: High grade long tubular ostial stenosis LCx: Minimal luminal irregularities noted RCA: Minimal luminal irregularities noted LVEDP 16 mmHg Contrast 118 ml Hemostasis: Right radial sheath was removed at case completion with hemostasis obtained with mechanical (TR Band) compression The patient tolerated the procedure well and was transferred from the cardiac catheterization lab to the CRU in stable condition without apparent complications. Full report to follow. JONNATHAN NIELSEN MD framing inspector Pager [phone] * Consult Note - Mitzy Sanchez MD - 08/30/2021 11:40 AM EDT Diabetes Management Team Inpatient Consult Date of Consultation: 08/30/2021 Consult Requested by: Cardiology Reason for Consultation: Gabriel Velazquez is a 66 y.o. female with PMH significant for Non obstructive CAD, h/o CVA, HTN, Insulin Dependent T2DM, Fibromyalgia, CKD, cervical radiculopathy/spinalcord compression who was admitted on 08/29/2021 for chest pain and currently being treated for NSTEMI. We are being consulted to assist with diabetes management and to provide a review of [facility]p diabetes care. Diabetes History: Gabriel Velazquez has had diabetes For about 20 [...] her insulin requirements have been decreasing, and she is now only taking 30 units of U-500 tid ac. She states she does have occasional episodes of hypoglycemia on this regimen which only happen around 1-3 pmand do not have any relation to her meals. Current outpatient diabetes regimen: Diabetes Provider: [place] app[place] [facility] [place] [place] Medications: U-500 30 units tid ac, trulicity 1.5 Monitoring is done three times a day Most recent HA1c was done on 08/30/21 and was 9.2%, suggesting an average glucose of 216 mg/dL for the past 6-8 weeks. Typical diet is: 3 meals and 1-2 snacks a day, typically eats toast, fruit, milk, sandwiches for lunch, subway sandwich for dinner. Typical exercise regimen: patient does not regularly exercise Trouble with hypoglycemia: usually middle of the day around 1-3pm when it does happen Current Weight: 84.8kg Compliance with insulin: Patient is adherent to her insulin therapy, has been decreasing her regimen. Diabetes Complications Status: Eyes: None Kidneys: CKD Feet: None Cardiovascular : h/o nonobstructive CAD Current Hospital Diabetes Care: Medications: Lispro 2-12 units resistant correction scale tid ac (correction factor 10) Monitoring: POC BGM tid ac, Hs Diet: NPO ROS: 12 Point ROS negative other than what is documented above in ROS and HPI PMH Past Medical History: Diagnosis Date ??? CAD (coronary artery disease) ??? Cervical radiculopathy at C7 ??? CKD (chronic kidney disease) stage 3, GFR 30-59 ml/min ??? Diabetes mellitus ??? GERD (gastroesophageal reflux disease) ??? Hiatal hernia ??? HLD (hyperlipidemia) ??? Hypertension Current Hospital Medications: ??? aspirin EC 81 mg Oral Daily ??? clopidogreL 75 mg Oral Daily ??? pantoprazole EC 40 mg Oral Daily ??? sodium chloride 0.9 % (flush) 5 mL Intravenous BID ??? insulin lispro 2-12 Units Subcutaneous TID AC ??? rosuvastatin 40 mg Oral QPM ??? metoproloL tartrate 12.5 mg Oral 2 times per day PRN: sodium chloride 0.9 % (flush), lidocaine, nitroGLYcerin, glucose 40% oral geL OR dextrose 10% OR glucagon, acetaminophen, heparin (porcine) infusion AND heparin (porcine) Allergy: Allergies Allergen Reactions ??? Iodine And [...] Never Smoker ??? Smokeless tobacco: Never Used Substance Use Topics ??? Alcohol use: No ??? Drug use: No Family history: Family History Problem Relation Age of Onset ??? Heart Disease Mother ??? Diabetes Mother ??? Diabetes Father ??? Cancer Neg Hx Vitals Last value Range last 24 hrs Temperature Temp: 37 ??C (98.6 ??F) Temp: [36.5 ??C (97.7 ??F)-37 ??C (98.6 ??F)] Heart Rate Heart Rate: 73 Heart Rate: [64-77] Blood Pressure BP: 132/64 BP: (132-160)/(63-85) Respiratory Rate Resp: 17 Resp: [17-20] SpO2 SpO2: 100 % SpO2: [92 %-100 %] Physical Exam: Gen: NAD, talking in clear sentences. Laying in bed comfortably HEENT: no LAD, oral mucus membranes moist no obvious inflammation Heart: normal rate, regular rhythm Lungs: speaking in full sentences, breathing non-abored Abd: Soft, non-distended SKIN: No open areas or redness to both feet Neuro: Moving all extremities. Grossly non-focal Labs: Lab Results Component Value Date BUN 15 08/30/2021 CREATININE 1.32 (H) 08/30/2021 GLUCOSE 427 (H) 09/06/2016 GLUCFASTING 240 (H) 08/30/2021 ESTGFR 44 (L) 08/30/2021 Lab Results Component Value Date HA1C 9.2 (H) 08/30/2021 No results found for: MICROALBUR Lab Results Component Value Date CHLPL 125 08/30/2021 Lab Results Component Value Date HDL 29 08/30/2021 No results found for: LDLCHOL Lab Results Component Value Date TRIG 159 08/30/2021 Lab Results Component Value Date CHOLHDL 4.3 08/30/2021 Assessment: Patient is a 66 y.o. years old female with PMH significant for DM (Last A1C of 9.2) who was admitted on 08/29/2021 for NSTEMI. Diabetes suboptimally controlled and currently complicated by hyperglycemia and CAD. Currently with variability of blood glucose levels while hospitalized requiring adjustment of insulin regimen and DM medications. Patient's insulin requirements have been coming down significantly since starting her trulicity (which she unfortunately missed yesterday). I do not think thepatient will need the U-500 dosing of insulin any longer as she is only taking 90 units a day currently. We can switch her to a basal + bolus regimen while inpatient, and adjust her medication regimen from there. Plan: 1. Start Lantus 40 units daily 2. Start Lispro moderate correction scale for BG>140 tid ac CORRECTION BOLUS Custom correction factor 20 BG 140 - 160 Give 1 units BG 161 - 180 Give 2 units BG 181 - 200 Give 3 units BG 201 - 220 Give 4 units BG 221 - 240 Give 5 units BG greater than 240, give 6 units and recheck BG in 2 hours. If BG remains GREATER THAN 240, GIVE 6units (no more than two times) & call for new basal insulin orders. If less than 240 after two hours, give no insulin and resume prior schedule. 3. Start Meal-associated Lispro 1unit: 5 gm carb ratio for each meal tid ac Diabetes Discharge Planning Medications - Outpatient treatment regimen recommendations pending based on the hospital course. kiln furniture saw tender diabetes care: Medications - Outpatient treatment regimen recommendations pending based on the hospital course. Monitoring - continue BG tid ac & hs Diet - low fat/low carb diet Exercise - weight-bearing exercise 30 min/day, as tolerated Thank you for allowing us to provide care for your patient Tom Anna DO [facility] [place] Endocrinology Fellow, PGY-[address] Sanchez 70 minutes of this 80 minute visit was spent with the patient in counseling on diabetes and treatment plan, reviewing all glucose and insulin data as well as relevant laboratory results with the patient, and coordination of care on the inpatient unit. I have seen the patient and reviewed Dr. Tom Anna's above history and I agree with the details as written. The assessment and plan were formulated in discussion with me and I agree with them as documented. Mitzy Sanchez MD, PhD, FACP, FACE * Plan of Care - Geena Epperson MD - 08/30/2021 12:00 AM EDT Images from the original note were not included. Cardiac cath Pre Procedure Note The indications, expected benefits and potential risks of heart catheterization were reviewed in detail with the patient. The potential for , heart attack, stroke, kidney failure, hemorrhage, allergic reaction, vascular complications and infection were reviewed in detail. The possibility of stenting and other percutaneous intervention with associated risk was reviewed. The possible need for emergent coronary artery bypass surgery was reviewed. After a discussion about the above, and havinganswered all questions posed, the patient was provided with a consent which was reviewed and signed. ASA: 3: Patient with severe systemic disease Mallampati: II: tonsillar pillars are blocked by the tongue Sedation Plan: moderate (conscious sedation) Assessment and Plan: Proceed with cardiac cath today, see progress note from today for further details. Geena Epperson MD 08/30/2021 Pager [phone] documented in this encounter Plan of Treatment Upcoming Encounters Date Type Department Care Team (Late st Contact Info) Description 01/09/2024 2:20 PM EST TH Visit (TeleHealth) [place] [address] [facility] HEMATOLOGY [place] [address] 01/24/2024 9:30 AM EST Appointment XRay at [address] [place] [address] [facility] [place] [address] 01/24/2024 11:00 AM EST Office Visit [place] [address] [facility] [place] [address] 01/24/2024 2:45 PM EST [place] [address] 01/24/2024 3:45 PM EST Office [place] [address] [facility] [place] [address] 03/20/2024 9:00 AM EST Office Visit H[place]ology [place] [address] Ericka Forrest [facility] HEMATOLOGY [place] [address] 07/29/2024 2:00 PM EDT Office Visit Radiation Oncology at [address] [phone] [facility] [place] [address] Scheduled Orders Name Type Priority Associated Diagnoses Orde r Schedule EKG 12 Lead ECG Routine Non-ST elevation myocardial infarction (NSTEMI) One Time for 1 Occurrences starting 08/31/2021 until 08/31/2021 Scheduled Referrals Name Type Priority Associated Diagnoses Orde r Schedule Referral to Cardiac Rehab Outpatient Referral Routine Non-ST elevation myocardial infarction (NSTEMI) Ordered: 09/01/2021 documented as of this encounter Procedures Procedure Name Priority Date/Time Associated Diagnosis Comments POCT GLUCOSE Routine 09/01/2021 11:44 AM EDT POCT GLUCOSE Routine 09/01/2021 7:36 AM EDT EKG 12-LEAD Routine 09/01/2021 6:06 AM EDT Non-ST elevation myocardial infarction (NSTEMI) Coronary artery disease, unspecified vessel or lesion type, unspecified whether angina present, unspecified whether ekuk or transplanted heart HC VENIPUNCTURE Routine 09/01/2021 4:32 AM EDT HEMOGRAM Routine 09/01/2021 4:32 AM EDT DIFFERENTIAL, AUTOMATED Routine 09/02/19 4:32 AM EDT HC CBC,PLT & AUTO DIFF Routine 4:32 AM EDT POCT GLUCOSE Routine 09/01/2021 4:04 AM EDT POCT GLUCOSE Routine 09/01/2021 12:19 AM EDT POCT GLUCOSE Routine 08/31/2021 10:38 PM EDT POCT GLUCOSE Routine 08/31/2021 8:26 PM EDT POCT GLUCOSE Routine 08/31/2021 4:14 PM EDT POCT GLUCOSE Routine 08/31/2021 11:23 AM EDT EKG 12-LEAD STAT 08/31/2021 10:15 AM EDT Non-ST elevation myocardial infarction (NSTEMI) CARDIAC CATHETERIZATION Routine 09/01/19 10:14 AM EDT POCT GLUCOSE Routine 08/31/2021 9:07 AM EDT POCT GLUCOSE Routine 08/31/2021 7:14 AM EDT HC VENIPUNCTURE Routine 08/31/2021 6:14 AM EDT HC UNFRACTIONATED HEPARIN (HEP UFH) Routine 08/31/2021 4:23 AM EDT BMP W/FASTING GLUCOSE Routine 08/31/2021 4:23 AM EDT HEMOGRAM Routine 08/31/2021 4:23 AM EDT DIFFERENTIAL, AUTOMATED Routine 09/01/19 4:23 AM EDT HC VENIPUNCTURE Routine 08/31/2021 4:23 AM EDT POCT GLUCOSE Routine 08/31/2021 4:07 AM EDT POCT GLUCOSE Routine 08/31/2021 2:26 AM EDT POCT GLUCOSE Routine 08/30/2021 11:28 PM EDT POCT GLUCOSE Routine 08/30/2021 8:22 PM EDT POCT GLUCOSE Routine 08/30/2021 4:03 PM EDT POCT GLUCOSE Routine 08/30/2021 11:34 AM EDT HC TROPONIN T STAT 08/30/2021 11:05 AM EDT ECHO COMPLETE W CONTRAST Routine 08/30/2021 9:09 AM EDT Non-ST elevation myocardial infarction (NSTEMI) POCT GLUCOSE Routine 08/30/2021 7:23 AM EDT HC UNFRACTIONATED HEPARIN (HEP UFH) Routine 08/30/2021 5:50 AM EDT BMP W/FASTING GLUCOSE Routine 08/30/2021 5:50 AM EDT HEMOGRAM Routine 08/30/2021 5:50 AM EDT DIFFERENTIAL, AUTOMATED Routine 08/31/19 5:50 AM EDT HC CBC,PLT & AUTO DIFF Routine 5:50 AM EDT HC TROPONIN T STAT 08/30/2021 5:50 AM EDT HC TRIGLYCERIDES Routine 08/30/2021 5:50 AM EDT HC LDL CHOLESTEROL, DIRECT Routine 08/30/2021 5:50 AM EDT HC CHOLESTEROL Routine 08/30/2021 5:50 AM EDT HC HEMOGLOBIN A1C Routine 08/30/2021 5:5 0 AM EDT POCT GLUCOSE Routine 08/30/2021 1:40 AM EDT HC UNFRACTIONATED HEPARIN (HEP UFH) STAT 08/29/2021 11:34 PM EDT HC VENIPUNCTURE STAT 08/29/2021 11:34 PM EDT HEMOGRAM STAT 08/29/2021 11:34 PM EDT DIFFERENTIAL, AUTOMATED STAT 08/30/19 11:34 PM EDT HC CBC,PLT & AUTO DIFF STAT 11:34 PM EDT HC TROPONIN T STAT 08/29/2021 11:34 PM EDT EKG 12-LEAD STAT 08/29/2021 11:25 PM EDT Non-ST elevation myocardial infarction (NSTEMI) POCT GLUCOSE Routine 08/29/2021 10:42 PM EDT documented in this encounter Results * POCT Glucose (09/01/2021 11:44 AM EDT) [facility] Glucose, POC 91 65 - 199 mg/dL [facility] Comment: Supplemental ranges: <140 mg/dL before meals <180 mg/dL all other times of the day Blood 09/01/2021 11:4 4 AM EDT 09/01/2021 11:44 AM EDT Mary Ferguson MD POINT OF CARE TEST O RDERAROYCE Performing Organization Address [facility] Co de Phone Number [facility] [place] [address] * POCT Glucose (09/01/2021 7:36 AM EDT) Glucose, POC 71 65 - 199 mg/dL [facility] Comment: Supplemental ranges: <140 mg/dL before meals <180 mg/dL all other times of the day Blood 09/01/2021 7:36 AM EDT 09/01/2021 7:36 AM EDT Mary Ferguson MD POINT OF CARE TEST O REBEL Performing Organization Address [facility] Co de Phone Number [facility] [place] [address] * EKG 12 Lead (09/01/2021 6:06 AM EDT) Ventricular rate 60 BPM MUSE SYSTEM Atrial Rate 60 BPM MUSE SYSTEM P-R Interval 154 ms MUSE SYSTEM QRS Duration 86 ms MUSE SYSTEM Q-T Interval 398 ms MUSE SYSTEM QTC Calculated (Bezet) 398 ms MUSE SYSTEM Calculated P [employer] 72 degrees MUSE SYSTEM Calculated R [employer] 53 degrees MUSE SYSTEM Calculated T [employer] 82 degrees MUSE SYSTEM INTERPRETATION Normal sinus rhythm Nonspecific T wave abnormality Abnormal ECG When compared with ECG of 31-AUG-2021 10:15, No significant change was found I personally reviewed the tracing and edited the fellows interpretation Confirmed by fellow MD Oswaldo, Uyen ([id number]) on 09/01/2021 9:33:16 PM Confirmed by MD Castaneda Stanislav ([id number]) on 09/02/2021 4:26:58 PM MUSE SYSTEM 09/01/2021 6:06 AM EDT 09/02/2021 4:26 PM EDT Mary Ferguson MD ECG ORDERABLES MUSE SYSTEM * (ABNORMAL) Differential, Automated (09/01/2021 4:32 AM EDT) Neutrophil % 80.7 % [facility] Neutrophil Absolute 13.52(H) 1.70 - 6.10 x10(3)/mc L [facility] Lymph % 14.4 % [facility] Lymphocytes Abs 2.4 0.9 - 3.2 x10(3)/[facility] Monocyte % 3.8 % [facility] Monocyte Abs 0.6 0.3 - 0.9 x10(3)/[facility] Eos % 0.1 % [facility] Eosinophils Abs 0.0 0.0 - 0.4 x10(3)/[facility] Basophil % 0.2 % [facility] Baso Absolute 0.0 0.0 - 0.1 x10(3)/[facility] Immature Gran % 0.80 % [facility] Comment: Immature granulocytes(IG's)percentage and absolute count will include metamyelocytes, myelocytes, and promyelocytes. Blood smears from CBCs yielding IG's will be scanned manually for concordance. If this scan disagrees with the automated IG or if promyelocytes are noted, a manual differential will be performed. Immature Gran Absolute 0.13(H) 0.00 - 0.04 x10(3)/ L [facility] Blood 09/01/2021 4:32 AM EDT 09/01/2021 5:03 AM EDT Narrative Resulting Agency Comment Spec In Lab Geena Epperson MD HEMATOLOGY ORDERABLE S [facility] [place] [address] * (ABNORMAL) Hemogram (09/01/2021 4:32 AM EDT) White Blood Cell 16.8(H) 4.0 - 9.5 x10(3)/[facility] Red Blood Cell 5.13 4.00 - 5.21 x10(6)/[facility] Hemoglobin 14.0 11.7 - 15.5 g/dL [facility] Hematocrit 42.5 35.7 - 45.8 % [facility] Mean Cell Volume 82.8 82.6 - 94.4 fL [facility] Mean Cell Hemoglobin 27.3 27.1 - 32.0 pg [facility] Mean Cell Hemoglobin Concentration 32.9 31.7 - 35.0 g/dL [facility] Platelet 292 145 - 357 x10(3)/[facility] RDW Standard Deviation 39.8 37.0 - 46.0 [facility] RDW coefficient of variation 13.2 11.5 - 14.1 % [facility] Mean Platelet Volume 11.0 7.6 - 12.9 [facility] NRBC% auto 0.0 % [facility] NRBC Absolute 0.000 0.000 - 0.000 x10(3)/[facility] Blood 09/01/2021 4:32 AM EDT 09/01/2021 5:03 AM EDT Narrative Resulting Agency Comment Spec In Lab Geena Epperson MD HEMATOLOGY ORDERABLE S [facility] [place] [address] * (ABNORMAL) BMP w/fasting Glucose (09/01/2021 4:32 AM EDT) Glucose Fasting 107(H) 65 - 99 mg/dL [facility] Comment: ?Fasting* Glucose Interpretive Criteria Normal ?65-99 mg/dL Impaired Fasting glucose ?100-125 mg/dL Consistent with Diabetes Mellitus ? >or= 126 mg/dL *Fasting is defined as no caloric intake for at least 8 hours In the absence of unequivocal hyperglycemia a plasma glucose value of >or= 126 mg/dL should be repeated on a subsequent day. Diagnosis and Classification of Diabetes Mellitus, Position Statement from the [employer]. ??Diabetes Care, Volume 33, Supplement 1, Feb 2009 Blood Urea Nitrogen 18 8 - 18 mg/dL [facility] Creatinine 1.07 0.70 - 1.20 mg/dL [facility] Sodium 139 135 - 145 mmol/L [facility] Potassium 3.9 3.5 - 5.0 mmol/L [facility] Comment: Please note: ??Patients with WBC >100,000 may have falsely elevated Potassium levels. ??For accurate Potassium quantification in these patients send serum separator tube (gold top) for subsequent determinations. ??Contact the Clinical Chemistry Laboratory if there are any questions. Chloride 104 98 - 107 mmol/L [facility] Carbon Dioxide 23 22 - 31 mmol/L [facility] Anion Gap 12 5 - 15 mmol/L [facility] Calcium 8.7 8.5 - 10.5 mg/dL [facility] Est Glomerular Filtration Rate 57(L) >=60 mL/min/1. 73 m?? [facility] Comment: This patient's estimated [...] and symptoms in addition to eGFR. Blood 09/01/2021 4:32 AM EDT 09/01/2021 5:03 AM EDT Narrative Resulting Agency Comment Spec In Lab Geena Epperson MD CHEMISTRY ORDERABLES Performing Organization Address [facility]/ZIP Co de Phone Number [facility] [place] [address] * POCT Glucose (09/01/2021 4:04 AM EDT) Glucose, POC 107 65 - 199 mg/dL [facility] Comment: Supplemental ranges: <140 mg/dL before meals <180 mg/dL all other times of the day Blood 09/01/2021 4:04 AM EDT 09/01/2021 4:04 AM EDT Mary Ferguson MD POINT OF CARE TEST O RDERABLES Performing Organization Address [facility] Co de Phone Number [facility] [place] [address] * POCT Glucose (09/01/2021 12:19 AM EDT) Glucose, POC 129 65 - 199 mg/dL [facility] Comment: Supplemental ranges: <140 mg/dL before meals <180 mg/dL all other times of the day Blood 09/01/2021 12:1 9 AM EDT 09/01/2021 12:19 AM EDT Mary Ferguson MD POINT OF CARE TEST O RDERABLES Performing Organization Address City/[facility]/ZIP Co de Phone Number [facility] [place] [address] * POCT Glucose (08/31/2021 10:38 PM EDT) Glucose, POC 125 65 - 199 mg/dL [facility] Comment: Supplemental ranges: <140 mg/dL before meals <180 mg/dL all other times of the day Blood 08/31/2021 10:3 8 PM EDT 08/31/2021 10:38 PM EDT Mary Ferguson MD POINT OF CARE TEST O RDERAROYCE Performing Organization Address City/[facility]/ZIP Co de Phone Number [facility] [place] [address] * (ABNORMAL) POCT Glucose (08/31/2021 8:26 PM EDT) Glucose, POC 254(H) 65 - 199 mg/dL [facility] Comment: Supplemental ranges: <140 mg/dL before meals <180 mg/dL all other times of the day Blood 08/31/2021 8:26 PM EDT 08/31/2021 8:26 PM EDT Mary Ferguson MD POINT OF CARE TEST O REBEL Performing Organization Address [facility] Co de Phone Number [facility] [place] [address] * (ABNORMAL) POCT Glucose (08/31/2021 4:14 PM EDT) Glucose, POC 291(H) 65 - 199 mg/dL [facility] Comment: Supplemental ranges: <140 mg/dL before meals <180 mg/dL all other times of the day Blood 08/31/2021 4:14 PM EDT 08/31/2021 4:14 PM EDT Mary Ferguson MD POINT OF CARE TEST O REBEL Performing Organization Address [facility] Co de Phone Number [facility] [place] [address] * (ABNORMAL) POCT Glucose (08/31/2021 11:23 AM EDT) Glucose, POC 201(H) 65 - 199 mg/dL [facility] Comment: Supplemental ranges: <140 mg/dL before meals <180 mg/dL all other times of the day Blood 08/31/2021 11:2 3 AM EDT 08/31/2021 11:23 AM EDT Mary Ferguson MD POINT OF CARE TEST O RDERABLES Performing Organization Address [facility] de Phone Number [facility] [place] [address] * EKG 12 Lead (08/31/2021 10:15 AM EDT) Ventricular rate 75 BPM MUSE SYSTEM Atrial Rate 75 BPM MUSE SYSTEM P-R Interval 164 ms MUSE SYSTEM QRS Duration 82 ms MUSE SYSTEM Q-T Interval 372 ms MUSE SYSTEM QTC Calculated (Bezet) 415 ms MUSE SYSTEM Calculated P [employer] 69 degrees MUSE SYSTEM Calculated R [employer] 50 degrees MUSE SYSTEM Calculated T [employer] 57 degrees MUSE SYSTEM INTERPRETATION Normal sinus rhythm Normal ECG When compared with ECG of 29-AUG-2021 23:25, Nonspecific ST abnormality improved in V2 Confirmed by MD Mehul, Estlele ([id number]) on 08/31/2021 10:58:55 AM MUSE SYSTEM 08/31/2021 10:1 5 AM EDT 08/31/2021 10:58 AM EDT Geena Epperson MD ECG ORDERABLES Performing Organization Address [facility] de Phone Number MUSE SYSTEM * CARDIAC CATHETERIZATION (08/31/2021 10:14 AM EDT) Anatomical Region Laterality Modality Other Narrative 09/01/2021 6:31 AM EDT ?[facility] ? Cardiac Catheterization/Intervention Report ? Patient Name: Selam Velazquez, Gabriel D. ? Procedure Date: 08/31/2021 ? A #: [id number] ? Primary Physician: Nielsen, Jonnathan V ? Case #: [id number] ? File Name: [id number] ? Catheterization Order Number: [id number] ? [facility] ? Final Report [place], [place] ? Patient Name: ? Gabriel D. Hawlk Weeks ? ID#: ?[id number] ? : ?1955 ? Procedure Date: ? August 31, 2021 ?Case #: ? [id number] ? Room: ? 1 ? Case Physician: ? Jonnathan Nielsen M.D. ? Start: ?09:04 ?Fellow: ? Soraya Martinez M.D. ? Admission: ??08/29/2021 ? Referring Physician: ??Jose Barber M.D. ? Procedures: ?* Coronary Angiography ?* Left Heart Catheterization ?* Coronary Stent Insertion ? History ?Gabriel D. Hawlk Weeks is a 66 year old woman. She has hypertension and a ?family history of coronary artery disease. The patient's smoking status ?is Never. She has hypercholesterolemia managed by diet and lipid therapy. ?The patient has diabetes managed by diet, insulin and oral medication. ?She has sequelae from diabetes. The patient has a prior history of ?coronary artery disease. She is status post an acute non-ST elevation ?myocardial infarction. The patient also has a remote cerebral vascular ?accident. Prior to the initiation of this procedure, the patient was ?designated as ASA Class III. The [facility] clinical frailty scale is 4: ?Vulnerable. ? Diagnostic Tests: ?Prior Coronary Angiography: ? Prior coronary angiography was performed on 02/06/2014 and showed ? non-obstructive CAD. LV ejection fraction within 6 months is 62%. ?Electrocardiography: ? EKG was assessed by ECG. EKG was Abnormal. EKG showed other ? abnormality. ?Medications Prior to Procedure: ? Aspirin, Angiotensin II Receptor Bora, Beta Bora, Long Acting ? Nitrate and Statin. ? Indications for Diagnostic Cath: ?The priority of the diagnostic procedure was Urgent. The indication for ?the optical laboratory technician visit is ACS greater than 24 hrs. Chest pain symptom ?assessment was: Typical Angina. ? Technique: ?A 6 SLFr sheath was inserted in the right radial artery utilizing the ?Seldinger technique. The left coronary artery was injected utilizing a ?6Fr EBU 3.0 catheter. A 5Fr JR 4 catheter was used to inject the right ?coronary artery. Left ventricular pressure was performed utilizing a 5Fr ?JR 4 catheter. Coronary stent insertion was performed and the equipment ?utilized will be described in the intervention summary section. 6,000 ?units of heparin were administered. A total of 150cc of Iso-Claudia were ?opened, 118cc of Iso-Claudia were administered and 32cc of Iso-Claudia were ?wasted. Radiation: Fluoro time was 13.3 minutes, dose area product was ?69,502 mGYcm2 and air kerma was 1,275 mGY. See the case log for ?additional details. ?The patient received the following medications prior to and during the ?procedure: ? Unfractionated Heparin and Clopidogrel. ? Hemodynamics: ?Left Heart Pressures ? Resting: ? Syst Diast ? EDP ?a ?v ? m ?Ao 153 ?? 72 ?106 ?LV 161 ? 16 ? Coronary Angiography: ?Dominance: Right ?Left Main ? The left main was normal, free of disease. ?Left Anterior Descending ? There was a 90% long segmental stenosis of the ostial segment of the ? left anterior descending artery (LAD). ??The LAD was large. ??Distal ? flow was normal and was via the ekuk vessel. ?Left Circumflex ? The left circumflex (LCX) was normal, free of disease. ?Right Coronary Artery ? The right coronary artery (RCA) was normal, free of disease. ? Indication for Intervention: ?Coronary intervention was indicated for primary therapy for an acute ?myocardial infarction. The priority for the procedure was Urgent. The ?NCDR indication for the procedure was NSTE-ACS. Syntax Score was Low. ? Intervention Summary: ?Left Anterior Descending Artery ? Ostial 90% ? Stent insertion was performed on the 90% stenosis in the ? ostial segment of the LAD. This was a de marisel lesion. ? According to the ACC/AHA classification system, this lesion ? was a type C moderate risk lesion. Primary prevention of ? restenosis was the indication for stent insertion. This was ? the culprit lesion. A guidewire was placed across this lesion. ? Vessel flow pre intervention was SHEA 3. Lesion length was ? 26mm. ? Stent insertion was accomplished through a 6 Fr. EBU 3.0 ? guide. ??The lesion was predilated with a 3.00mm EUPHORA 20 MM ? balloon with a maximum inflation pressure of 10 atmospheres. ? A premounted 3.50 x 38 mm [place] [employer] (VINCENZO) was deployed ? with a maximum inflation pressure of 14 atmospheres. ? Following stent deployment, the lesion was dilated using a ? 4.00mm NC EUPHORA 20 MM balloon with a maximum inflation ? pressure of 18 atmospheres. ? The final outcome was defined as successful. A coronary ? arteriolar vasodilator was administered as part of the ? intervention on this lesion. There was no residual stenosis ? following this intervention. The final SHEA flow was 3. ? Vascular Access: ?Vascular Access Management: ? Mechanical Compression of the right radial artery access site was ? performed. ? Dual Antiplatelet (DAPT) Recommendations: ?Drug eluting stent (VINCENZO) inserted. ?Patient was on chronic DAPT on arrival to the optical laboratory technician. ?Recommended anti-platelet/anti-thrombotic regimen: ?Start aspirin 81 mg daily now and continue for indefinitely. ?Start clopidogrel 75 mg daily now and continue for 12 months then stop. ?These recommendations are made at the time of the intervention. Patient ?and provider preferences or a changing clinical situation may require ?modification of this regimen. [place] [facility] [place] ?questions. ?The 1 year bleeding risk as calculated by the PRECISE DAPT score is ?Moderate risk. ?This patient may be at high bleeding risk. In patients treated with DAPT ?after coronary stent implantation who develop a high risk of bleeding, or ?are at high risk of severe bleeding complication, or develop significant ?overt bleeding, discontinuation of P2Y12 inhibitor therapy after 3 months ?for stable ischemic heart disease (SIHD) or after 6 months for acute ?coronary syndrome (ACS) may be reasonable. ? Conclusions: ?* One vessel coronary artery disease (LAD) ?* Successful stent insertion of the ostial LAD lesion ?* See Dual Antiplatelet (DAPT) Recommendations above ? Complications/Events: ?The patient had no complications during these procedures. ?The attending physician was present for the entire procedure. ?Dr. Jonnathan Nielsen M.D. was present during the moderate sedation ?intraservice time as documented by the sedation nurse. ??Case time = 00:57. ?Dr. Jonnathan Nielsen M.D. performed the coronary angiography, left heart ?catheterization and stent insertion-coronary. ? Jonnathan V Gia, M.D. ? Electronically Signed by: Jonnathan V Nielsen, M.D. ? Report Finalized: 08/31/2021 ??19:18 ? Report Last Ammended: 09/02/2021 ??17:00 ? Jonnathan Kelley MD CARDIAC CATH ORDERAB LES * (ABNORMAL) POCT Glucose (08/31/2021 9:07 AM EDT) Glucose, POC 250(H) 65 - 199 mg/dL [facility] Comment: Supplemental ranges: <140 mg/dL before meals <180 mg/dL all other times of the day Blood 08/31/2021 9:07 AM EDT 08/31/2021 9:07 AM EDT Mary Ferguson MD POINT OF CARE TEST O RDERAROYCE Performing Organization Address [facility] de Phone Number [facility] [place] [address] * (ABNORMAL) POCT Glucose (08/31/2021 7:14 AM EDT) Glucose, POC 251(H) 65 - 199 mg/dL [facility] Comment: Supplemental ranges: <140 mg/dL before meals <180 mg/dL all other times of the day Blood 08/31/2021 7:14 AM EDT 08/31/2021 7:14 AM EDT Mary Ferguson MD POINT OF CARE TEST O RDERAROYCE Performing Organization Address City/[facility]/ZIP Co de Phone Number [facility] [place] [address] * Heparin (unfractionated) Level (08/31/2021 6:14 AM EDT) [facility] UF Heparin 0.14 IU/mL [facility] Comment: Heparin (anti-Xa) levels should be determined in a plasma sample that has been drawn 6 hours after a dose change to approximate steady-state for continuous heparin infusions. Indication specific Heparin (anti-Xa) levels based on order set selection: Acute DVT or PE treatment: 0.3 ? 0.7 IU/mL Thrombosis Prevention (eg. atrial fibrillation, marlen-procedural bridging, mechanical valves): 0.3 ? 0.7 IU/mL Acute Coronary Syndrome: 0.3 ? 0.7 IU/mL Stroke Indications: 0.3 ? 0.5 IU/mL Ultra-low intensity (select indications in cardiac surgery): 0.1 ? 0.3 IU/mL Blood 08/31/2021 6:14 AM EDT 08/31/2021 6:21 AM EDT Narrative Resulting Agency Comment Spec In Lab Geena Epperson MD HEMATOLOGY ORDERABLE S Performing Organization Address [facility]/State/ZIP Co de Phone Number [facility] [place] [address] * (ABNORMAL) Differential, Automated (08/31/2021 4:23 AM EDT) [facility] Neutrophil % 86.1 % [facility] Neutrophil Absolute 6.73(H) 1.70 - 6.10 x10(3)/mc L [facility] Lymph % 12.2 % [facility] Lymphocytes Abs 1.0 0.9 - 3.2 x10(3)/mc L [facility] Monocyte % 0.5 % [facility] Monocyte Abs 0.0(L) 0.3 - 0.9 x10(3)/mc L [facility] Eos % 0.0 % [facility] Eosinophils Abs 0.0 0.0 - 0.4 x10(3)/[facility] Basophil % 0.4 % [facility] Baso Absolute 0.0 0.0 - 0.1 x10(3)/[facility] Immature Gran % 0.80 % [facility] Comment: Immature granulocytes(IG's)percentage and absolute count will include metamyelocytes, myelocytes, and promyelocytes. Blood smears from CBCs yielding IG's will be scanned manually for concordance. If this scan disagrees with the automated IG or if promyelocytes are noted, a manual differential will be performed. Immature Gran Absolute 0.06(H) 0.00 - 0.04 x10(3)/[facility] Blood 08/31/2021 4:23 AM EDT 08/31/2021 4:47 AM EDT Narrative Resulting Agency Comment Spec In Lab Geena Epperson MD HEMATOLOGY ORDERABLE S Performing Organization Address City/State/[facility] Co de Phone Number [facility] [place] [address] * Hemogram (08/31/2021 4:23 AM EDT) White Blood Cell 7.8 4.0 - 9.5 x10(3)/[facility] Red Blood Cell 5.16 4.00 - 5.21 x10(6)/[facility] Hemoglobin 14.3 11.7 - 15.5 g/dL [facility] Hematocrit 42.6 35.7 - 45.8 % [facility] Mean Cell Volume 82.6 82.6 - 94.4 fL [facility] Mean Cell Hemoglobin 27.7 27.1 - 32.0 pg [facility] Mean Cell Hemoglobin Concentration 33.6 31.7 - 35.0 g/dL [facility] Platelet 255 145 - 357 x10(3)/[facility] RDW Standard Deviation 38.8 37.0 - 46.0 fL [facility] RDW coefficient of variation 12.8 11.5 - 14.1 % [facility] Mean Platelet Volume 10.4 7.6 - 12.9 fL [facility] NRBC% auto 0.0 % [facility] NRBC Absolute 0.000 0.000 - 0.000 x10(3)/mcL [facility] Blood 08/31/2021 4:23 AM EDT 08/31/2021 4:47 AM EDT Narrative Resulting Agency Comment Spec In Lab Geena Epperson MD HEMATOLOGY ORDERABLE S Performing Organization Address City/[facility]/ZIP Co de Phone Number [facility] [place] [address] * Heparin (unfractionated) Level (08/31/2021 4:23 AM EDT) UF Heparin <0.04 IU/mL [facility] Comment: Heparin (anti-Xa) levels should be determined in a plasma sample that has been drawn 6 hours after a dose change to approximate steady-state for continuous heparin infusions. Indication specific Heparin (anti-Xa) levels based on order set selection: Acute DVT or PE treatment: 0.3 ? 0.7 IU/mL Thrombosis Prevention (eg. atrial fibrillation, marlen-procedural bridging, mechanical valves): 0.3 ? 0.7 IU/mL Acute Coronary Syndrome: 0.3 ? 0.7 IU/mL Stroke Indications: 0.3 ? 0.5 IU/mL Ultra-low intensity (select indications in cardiac surgery): 0.1 ? 0.3 IU/mL Blood 08/31/2021 4:23 AM EDT 08/31/2021 4:50 AM EDT Narrative Resulting Agency Comment Spec In Lab Geena Epperson MD HEMATOLOGY ORDERABLE S Performing Organization Address City/[facility]/ZIP Co de Phone Number [facility] [place] [address] * (ABNORMAL) BMP w/fasting Glucose (08/31/2021 4:23 AM EDT) Glucose Fasting 289(H) 65 - 99 mg/dL [facility] Comment: ?Fasting* Glucose Interpretive Criteria Normal ?65-99 mg/dL Impaired Fasting glucose ?100-125 mg/dL Consistent with Diabetes Mellitus ? >or= 126 mg/dL *Fasting is defined as no caloric intake for at least 8 hours In the absence of unequivocal hyperglycemia a plasma glucose value of >or= 126 mg/dL should be repeated on a subsequent day. Diagnosis and Classification of Diabetes Mellitus, Position Statement from the [place] [employer]. ??Diabetes Care, Volume 33, Supplement 1, Feb 2009 Blood Urea Nitrogen 16 8 - 18 mg/dL [facility] Creatinine 1.07 0.70 - 1.20 mg/dL [facility] Sodium 133(L) 135 - 145 mmol/L [facility] Potassium 4.4 3.5 - 5.0 mmol/L [facility] Comment: Please note: ??Patients with WBC >100,000 may have falsely elevated Potassium levels. ??For accurate Potassium quantification in these patients send serum separator tube (gold top) for subsequent determinations. ??Contact the Clinical Chemistry Laboratory if there are any questions. Chloride 102 98 - 107 mmol/L [facility] Carbon Dioxide 22 22 - 31 mmol/L [facility] Anion Gap 9 5 - 15 mmol/L [facility] Calcium 9.1 8.5 - 10.5 mg/dL [facility] Est Glomerular Filtration Rate 57(L) >=60 mL/min/1. 73 m?? [facility] Comment: This patient's estimated [...] and symptoms in addition to eGFR. Blood 08/31/2021 4:23 AM EDT 08/31/2021 4:46 AM EDT Narrative Resulting Agency Comment Spec In Lab Geena Epperson MD CHEMISTRY ORDERABLES Performing Organization Address [facility] Co de Phone Number [facility] [place] [address] * (ABNORMAL) POCT Glucose (08/31/2021 4:07 AM EDT) Glucose, POC 251(H) 65 - 199 mg/dL [facility] Comment: Supplemental ranges: <140 mg/dL before meals <180 mg/dL all other times of the day Blood 08/31/2021 4:07 AM EDT 08/31/2021 4:07 AM EDT Mary Ferguson MD POINT OF CARE TEST O RDERABLES Performing Organization Address [facility] Co de Phone Number [facility] [place] [address] * (ABNORMAL) POCT Glucose (08/31/2021 2:26 AM EDT) Glucose, POC 252(H) 65 - 199 mg/dL [facility] Comment: Supplemental ranges: <140 mg/dL before meals <180 mg/dL all other times of the day Blood 08/31/2021 2:26 AM EDT 08/31/2021 2:26 AM EDT Mary Ferguson MD POINT OF CARE TEST O RDERABLES Performing Organization Address [facility] Co de Phone Number [facility] [place] [address] * (ABNORMAL) POCT Glucose (08/30/2021 11:28 PM EDT) Glucose, POC 270(H) 65 - 199 mg/dL [facility] Comment: Supplemental ranges: <140 mg/dL before meals <180 mg/dL all other times of the day Blood 08/30/2021 11:2 8 PM EDT 08/30/2021 11:28 PM EDT Mary Ferguson MD POINT OF CARE TEST O REBEL [facility] [place] [address] * (ABNORMAL) POCT Glucose (08/30/2021 8:22 PM EDT) Glucose, POC 273(H) 65 - 199 mg/dL [facility] Comment: Supplemental ranges: <140 mg/dL before meals <180 mg/dL all other times of the day Blood 08/30/2021 8:22 PM EDT 08/30/2021 8:22 PM EDT Mary Ferguson MD POINT OF CARE TEST O REBEL Performing Organization Address [facility]/ZIP Co de Phone Number [facility] [place] [address] * POCT Glucose (08/30/2021 4:03 PM EDT) Glucose, POC 131 65 - 199 mg/dL [facility] Comment: Supplemental ranges: <140 mg/dL before meals <180 mg/dL all other times of the day Blood 08/30/2021 4:03 PM EDT 08/30/2021 4:03 PM EDT Mary Ferguson MD POINT OF CARE TEST O REBEL [facility] [place] [address] * POCT Glucose (08/30/2021 11:34 AM EDT) Glucose, POC 136 65 - 199 mg/dL [facility] Comment: Supplemental ranges: <140 mg/dL before meals <180 mg/dL all other times of the day Blood 08/30/2021 11:3 4 AM EDT 08/30/2021 11:34 AM EDT Mary Ferguson MD POINT OF CARE TEST O RDERABLES [facility] [place] [address] * (ABNORMAL) Troponin (08/30/2021 11:05 AM EDT) [facility] Troponin-T 0.02(H) 0.00 - 0.00 ng/mL [facility] Comment: The 99th percentile for Troponin T is less than 0.01 ng/mL, any detectable cTnT concentration using this assay should be considered elevated. According to the third universal definition of myocardial infarction the following criteria with a clinical presentation consistent with acute myocardial ischemia meets the diagnosis for a myocardial infarction (MN). Detection of a rise and/or fall of cTnT, with at least one value greater than the 99th percentile (> or = 0.01) and with at least one of the following ?? Symptoms of ischemia ?? New or presumed new significant JZ-vitynkt-A wave (ST-T) changes or new left bundle branch block (LBBB) ?? Development of pathologic Q waves in the ECG ?? Imaging evidence of new loss of viable myocardium or new regional wall motion abnormality ?? Identification of an intracoronary thrombus by angiography or autopsy Samples for cTnT testing should be obtained serially upon first assessment and again 3 to 6 hours later. If the clinical suspicion is high and previous samples have been negative an additional sample may be indicated. Reference: Third [place] Definition of Myocardial Infarction. Journal of the [employer] 2012;60:1581-98 Blood 08/30/2021 11:0 5 AM EDT 08/30/2021 11:18 AM EDT Narrative Resulting Agency Comment Spec In Lab Geena Epperson MD CHEMISTRY ORDERABLES [facility] [place] [address] * ECHO COMPLETE W CONTRAST (08/30/2021 9:09 AM EDT) Anatomical Region Laterality Modality Cardiac Other 08/30/2021 7:31 AM EDT Narrative 08/30/2021 9:40 AM EDT ? Echocardiogram Report Name: GABRIEL STALEY ?Study Date: 08/30/2021 07:31 AM ? Patient Location: [facility] 0448 A : 1955 ? Height: 157 cm ? Account: [id number] Age: 66 yrs ? Weight: 85 kg Gender: Female ?BSA: 1.9 m2 Ordering Physician: GEENA EPPERSON Referring Physician: JOSE BARBER Performed By: Samuel Cleveland RDCS Reason For Study: Non-ST elevation myocardial infarction (NSTEMI) Exam Location: [facility]. Interpretation Summary Left ventricle is of normal size. Wall thickness is normal. Left ventricular size and systolic function is normal. The left ventricular ejection fraction is 66% by Mcarthur's biplane. There are no segmental wall motion abnormalities. No significant valvular abnormalities. Other details as noted below. As compared to an outside echo report ([facility] Nov 05, 2013), there is no significant change. Procedure Complete-[id number]. Image enhancement Optison was used for left ventricular opacification. Suboptimal quality. This study is limited because of body habitus. There is normal sinus rhythm. Left Ventricle Left ventricle is of normal size. Wall thickness is normal. Left ventricular size and systolic function is normal. The left ventricular ejection fraction is 66% by Mcarthur's biplane. There are no segmental wall motion abnormalities. Right Ventricle The right ventricle is of normal size. Right ventricular systolic function is normal. Left Atrium The left atrium is normal. There is no evidence for a patent foramen ovale. Right Atrium The right atrium is normal. Aortic Valve The aortic valve is tricuspid. The aortic valve is mildly thickened. There is no aortic stenosis. There is trace aortic regurgitation. Mitral Valve Mild thickening of the mitral leaflets. There is no mitral stenosis. There is trace mitral regurgitation. Tricuspid Valve The tricuspid valve is structurally normal. There is no tricuspid stenosis. There is trace tricuspid regurgitation. Pulmonic Valve The pulmonic valve appears to be structurally normal. There is no valvular pulmonic stenosis. There is trace pulmonic valve regurgitation. Great Arteries The aortic root is of normal size. No abnormalities are identified. Ascending aorta is normal in size. Venous Inferior vena cava is normal in size. Inferior vena cava collapse greater than 50% with respiration. Pericardium/Pleural The pericardium appears normal. A pericardial fat pad is present. Hemodynamics Pulmonary artery hypertension could not be assessed due to inadequate tricuspid regurgitation jet. The estimated right atrial pressure is 3mmHg. There is Grade I LV diastolic dysfunction (abnormal relaxation with normal left ventricular filling pressure). Ejection Fraction ?2D Measurements ? Volumes EF(MOD-bp): 66.1 % ?IVSd: 1.0 cm ? LAV(MOD- bp) Indexed: ?LVIDd: 3.8 cm ?LVIDs: 2.1 cm ?29.4 ml/m2 ?LVPWd: 0.92 cm ? RA A4Cs_phl: 10.5 cm2 ? EDV (MOD-bp) Index: 37.9 ?LV mass(C)d: 114.3 grams ? ESV (MOD-bp) Index: 12.9 ?LV mass(C)dI: 61.6 grams/m2 ?Ao root diam: 3.2 cm ?Ao root diam index: 1.7 ?asc Aorta Diam: 3.3 cm ?TAPSE_phl: 2.1 cm Doppler MV E max ana maria: 106.4 cm/sec MV A max ana maria: 114.7 cm/sec MV E/A: 0.93 MV dec time: 0.23 sec Lat Peak E' Ana Maria: 6.3 cm/sec E/ e' (lat): 17.0 Med Peak E' Ana Maria: 5.6 cm/sec E/e' (med): 19.2 E/e' Average: 18.1 I ?WMSI = 1.00 ? % Normal = 100 ?Segments ??Size X - Cannot ?2 - ?4 - ?1-2 ? small Interpret ?1 - Normal ?? Hypokinetic 3 - Akinetic Dyskinetic ?? 3-5 ? moderate 5 - ? 6-14 ?large Aneurysmal ?15-16 ?? diffuse Procedure Note Modesto Fam MD - 08/30/2021 Echocardiogram Report Name: GABRIEL STALEY Study Date: 207:31 AM Patient Location: [address] : 1955 Height: 157 cm Account: [id number] Age: 66 yrs Weight: 85 kg Gender: Female BSA: 1.9 m2 Ordering Physician: GEENA EPPERSON Referring Physician: JOSE BARBER Performed By: Samuel Cleveland RDCS Reason For Study: Non-ST elevation myocardial infarction (NSTEMI) Exam Location: [facility]. Interpretation Summary Left ventricle is of normal size. Wall thickness is normal. Leftventricular size and systolic function is normal. The left ventricular ejection fraction is66% by Mcarthur's biplane. There are no segmental wall motion abnormalities. No significant valvular abnormalities. Other details as noted below. As compared to an outside echo report ([facility] Nov 05, 2013), thereis no significant change. Procedure Complete-[id number]. Image enhancement Optison was used for left ventricular opacification. Suboptimal quality. This study is limited because of bodyhabitus. There is normal sinus rhythm. Left Ventricle Left ventricle is of normal size. Wall thickness is normal. Leftventricular size and systolic function is normal. The left ventricular ejection fraction is66% by Mcarthur's biplane. There are no segmental wall motion abnormalities. Right Ventricle The right ventricle is of normal size. Right ventricular systolic functionis normal. Left Atrium The left atrium is normal. There is no evidence for a patent foramenovale. Right Atrium The right atrium is normal. Aortic Valve The aortic valve is tricuspid. The aortic valve is mildly thickened. Thereis no aortic stenosis. There is trace aortic regurgitation. Mitral Valve Mild thickening of the mitral leaflets. There is no mitral stenosis. Thereis trace mitral regurgitation. Tricuspid Valve The tricuspid valve is structurally normal. There is no tricuspidstenosis. There is trace tricuspid regurgitation. Pulmonic Valve The pulmonic valve appears to be structurally normal. There is novalvular pulmonic stenosis. There is trace pulmonic valve regurgitation. Great Arteries The aortic root is of normal size. No abnormalities are identified.Ascending aorta is normal in size. Venous Inferior vena cava is normal in size. Inferior vena cava collapse greaterthan 50% with respiration. Pericardium/Pleural The pericardium appears normal. A pericardial fat pad is present. Hemodynamics Pulmonary artery hypertension could not be assessed due to inadequatetricuspid regurgitation jet. The estimated right atrial pressure is 3mmHg. There isGrade I LV diastolic dysfunction (abnormal relaxation with normal left ventricularfilling pressure). Ejection Fraction 2D Measurements Volumes EF(MOD-bp): 66.1 % IVSd: 1.0 cm LAV(MOD-bp)Indexed: LVIDd: 3.8 cm LVIDs: 2.1 cm 29.4 ml/m2 LVPWd: 0.92 cm RA A4Cs_phl: 10.5cm2 EDV (MOD-bp)Index: 37.9 LV mass(C)d: 114.3 grams ESV (MOD-bp)Index: 12.9 LV mass(C)dI: 61.6 grams/m2 Ao root diam: 3.2 cm Ao root diam index: 1.7 asc Aorta Diam: 3.3 cm TAPSE_phl: 2.1 cm Doppler MV E max ana maria: 106.4 cm/sec MV A max ana maria: 114.7 cm/sec MV E/A: 0.93 MV dec time: 0.23 sec Lat Peak E' Ana Maria: 6.3 cm/sec E/ e' (lat): 17.0 Med Peak E' Ana Maria: 5.6 cm/sec E/e' (med): 19.2 E/e' Average: 18.1 I WMSI = 1.00 % Normal = 100 SegmentsSize X - Cannot 2 - 4 - 1-2small Interpret 1 - Normal Hypokinetic 3 - Akinetic Dyskinetic 3-5moderate 5 - 6-14large Aneurysmal 15-16diffuse Geena Epperson MD ECHO ORDERABLES * (ABNORMAL) POCT Glucose (08/30/2021 7:23 AM EDT) [facility] Glucose, POC 211(H) 65 - 199 mg/dL [facility] Comment: Supplemental ranges: <140 mg/dL before meals <180 mg/dL all other times of the day Blood 08/30/2021 7:23 AM EDT 08/30/2021 7:23 AM EDT Mary Ferguson MD POINT [place] C[place] [address] * Differential, Automated (08/30/2021 5:50 AM EDT) Neutrophil % 57.6 % [facility] Neutrophil Absolute 4.40 1.70 - 6.10 x10(3)/[facility] Lymph % 29.7 % [facility] Lymphocytes Abs 2.3 0.9 - 3.2 x10(3)/[facility] Monocyte % 5.5 % [facility] Monocyte Abs 0.4 0.3 - 0.9 x10(3)/[facility] Eos % 5.9 % [facility] Eosinophils Abs 0.4 0.0 - 0.4 x10(3)/[facility] Basophil % 1.0 % [facility] Baso Absolute 0.1 0.0 - 0.1 x10(3)/[facility] Immature Gran % 0.30 % [facility] Comment: Immature granulocytes(IG's)percentage and absolute count will include metamyelocytes, myelocytes, and promyelocytes. Blood smears from CBCs yielding IG's will be scanned manually for concordance. If this scan disagrees with the automated IG or if promyelocytes are noted, a manual differential will be performed. Immature Gran Absolute 0.02 0.00 - 0.04 x10(3)/[facility] Blood 08/30/2021 5:50 AM EDT 08/30/2021 6:00 AM EDT Narrative Resulting Agency Comment Spec In Lab Geena Epperson MD HEMATOLOGY ORDERABLE S Performing Organization Address City/[facility]/[place] [address] * Hemogram (08/30/2021 5:50 AM EDT) White Blood Cell 7.6 4.0 - 9.5 x10(3)/[facility] Red Blood Cell 4.69 4.00 - 5.21 x10(6)/[facility] Hemoglobin 13.0 11.7 - 15.5 g/dL [facility] Hematocrit 39.8 35.7 - 45.8 % [facility] Mean Cell Volume 84.9 82.6 - 94.4 fL [facility] Mean Cell Hemoglobin 27.7 27.1 - 32.0 pg [facility] Mean Cell Hemoglobin Concentration 32.7 31.7 - 35.0 g/dL [facility] Platelet 252 145 - 357 x10(3)/[facility] RDW Standard Deviation 40.5 37.0 - 46.0 [facility] RDW coefficient of variation 13.2 11.5 - 14.1 % [facility] Mean Platelet Volume 10.7 7.6 - 12.9 fL [facility] NRBC% auto 0.0 % [facility] NRBC Absolute 0.000 0.000 - 0.000 x10(3)/[facility] Blood 08/30/2021 5:50 AM EDT 08/30/2021 6:00 AM EDT Narrative Resulting Agency Comment Spec In Lab Geena Epperson MD HEMATOLOGY ORDERABLE S [facility] [place] [address] * (ABNORMAL) BMP w/fasting Glucose (08/30/2021 5:50 AM EDT) Glucose Fasting 240(H) 65 - 99 mg/dL [facility] Comment: ?Fasting* Glucose Interpretive Criteria Normal ?65-99 mg/dL Impaired Fasting glucose ?100-125 mg/dL Consistent with Diabetes Mellitus ? >or= 126 mg/dL *Fasting is defined as no caloric intake for at least 8 hours In the absence of unequivocal hyperglycemia a plasma glucose value of >or= 126 mg/dL should be repeated on a subsequent day. Diagnosis and Classification of Diabetes Mellitus, Position Statement from the [employer]. ??Diabetes Care, Volume 33, Supplement 1, Feb 2009 Blood Urea Nitrogen 15 8 - 18 mg/dL [facility] Creatinine 1.32(H) 0.70 - 1.20 mg/dL [facility] Sodium 134(L) 135 - 145 mmol/L [facility] Potassium 4.0 3.5 - 5.0 mmol/L [facility] Comment: Please note: ??Patients with WBC >100,000 may have falsely elevated Potassium levels. ??For accurate Potassium quantification in these patients send serum separator tube (gold top) for subsequent determinations. ??Contact the Clinical Chemistry Laboratory if there are any questions. Chloride 103 98 - 107 mmol/L [facility] Carbon Dioxide 23 22 - 31 mmol/L [facility] Anion Gap 8 5 - 15 mmol/L [facility] Calcium 8.7 8.5 - 10.5 mg/dL [facility] Est Glomerular Filtration Rate 44(L) >=60 mL/min/1. 73 m?? [facility] Comment: This patient's estimated [...] and symptoms in addition to eGFR. Blood 08/30/2021 5:50 AM EDT 08/30/2021 6:00 AM EDT Narrative Resulting Agency Comment Spec In Lab Geena Epperson MD CHEMISTRY ORDERABLES Performing Organization Address City/[facility]/ZIP Co de Phone Number [facility] [place] [address] * Triglyceride (08/30/2021 5:50 AM EDT) Triglyceride 159 mg/dL [facility] Comment: Average Risk/Lower Risk: <150 mg/dL Borderline High Risk: 150-199 mg/dL High Risk: 200-499 mg/dL Very High Risk: >km=210 mg/dL Blood 08/30/2021 5:50 AM EDT 08/30/2021 6:00 AM EDT Narrative Resulting Agency Comment Spec In Lab Geena Epperson MD CHEMISTRY ORDERABLES Performing Organization Address City/[facility]/ZIP Co de Phone Number [facility] [place] [address] * HDL/Cholesterol Profile (08/30/2021 5:50 AM EDT) Cholesterol, Total 125 mg/dL [facility] Comment: Lower Risk: <200 mg/dL Average Risk: 200-239 mg/dL Higher Risk: >zp=951 mg/dL HDL Cholesterol 29 mg/dL [facility] Comment: Males: ?? Higher Risk: <40 mg/dL Females: ?? Higher Risk: <50 mg/dL Cholesterol/HDL Ratio 4.3 ratio [facility] Chol/HDL Interpretation See Note [facility] Comment: Lipid management should be guided by a patient? s ASCVD risk, goals and preferences. ACC/AHA Guidelines recommend high intensity statin if clinical ASCVD or LDL greater than or equal to 190 mg/dL. http://tinyurl.com/SRC-SKQ-Gwnkfadkv Measure LDL if Total Cholesterol minus HDL Cholesterol is greater than 220 mg/dL. Adults aged 40-75 with LDL 70-189 mg/dL should have their 10 year ASCVD risk estimated with the ACC/AHA ASCVD risk educational technology coordinator http://tools.acc.org/FSSVP-Xckf-Lvgcomipn/ Statin should be discussed if risk greater than or equal to 7.5% in non-diabetics. With diabetes, moderate intensity statin is recommended if risk less than 7.5%, high intensity if risk greater than or equal to 7.5%. Annual lipid monitoring on statins is not necessary. Lifestyle modification is a critical component of ASCVD risk reduction. Blood 08/30/2021 5:50 AM EDT 08/30/2021 6:00 AM EDT Narrative Resulting Agency Comment Spec In Lab Geena Epperson MD CHEMISTRY ORDERABLES [facility] [place] [address] * LDL Cholesterol, Direct (08/30/2021 5:50 AM EDT) LDL Cholesterol, Direct 71 mg/dL [facility] Comment: Lowest Risk: <100 mg/dL Lower Risk: 100-129 mg/dL Borderline High Risk: 130-159 mg/dL High Risk: 160-189 mg/dL Very High Risk: >aa=423 mg/dL Blood 08/30/2021 5:50 AM EDT 08/30/2021 6:00 AM EDT Narrative Resulting Agency Comment Spec In Lab Geena Epperson MD CHEMISTRY ORDERABLES [facility] [place] [address] * (ABNORMAL) Hemoglobin A1c (08/30/2021 5:50 AM EDT) Hemoglobin A1c 9.2(H) 4.3 - 5.6 % [facility] Comment: Reference Range: 4.3 [...] Mellitus, Diabetes Care 2013; 36: Suppl. 1, S79-66 Estimated Average Glucose 216 mg/dL [facility] Comment: eAG equivalents for HbA1c percentages: HbA1c(%) ?eAG(mg/dL) 6.0 ?126 6.5 ?140 7.0 ?154 7.5 ?169 8.0 ?183 8.5 ?197 9.0 ?212 9.5 ?226 10.0 ? 240 Limitations: The eAG calculation has not been validated on women, individuals below 18 years old and above 70 years old, and individuals with hemoglobinopathies. Additional resources are available on the ADA website. Colin CRAWFORD, Issac J, Libby R, et al. ??Translating the A1C assay into estimated average glucose values. ??Diabetes Care 2008:31(8):5242-7257. Blood 08/30/2021 5:50 AM EDT 08/30/2021 6:02 AM EDT Narrative Resulting Agency Comment Spec In Lab Geena Epperson MD CHEMISTRY ORDERABLES [facility] [place] [address] * (ABNORMAL) Troponin (08/30/2021 5:50 AM EDT) Troponin-T 0.02(H) 0.00 - 0.00 ng/mL [facility] Comment: The 99th percentile for Troponin T is less than 0.01 ng/mL, any detectable cTnT concentration using this assay should be considered elevated. According to the third universal definition of myocardial infarction the following criteria with a clinical presentation consistent with acute myocardial ischemia meets the diagnosis for a myocardial infarction (MN). Detection of a rise and/or fall of cTnT, with at least one value greater than the 99th percentile (> or = 0.01) and with at least one of the following ?? Symptoms of ischemia ?? New or presumed new significant IV-sazcofx-W wave (ST-T) changes or new left bundle branch block (LBBB) ?? Development of pathologic Q waves in the ECG ?? Imaging evidence of new loss of viable myocardium or new regional wall motion abnormality ?? Identification of an intracoronary thrombus by angiography or autopsy Samples for cTnT testing should be obtained serially upon first assessment and again 3 to 6 hours later. If the clinical suspicion is high and previous samples have been negative an additional sample may be indicated. Reference: Third [place] Definition of Myocardial Infarction. Journal of the [employer] College [employer] 2012;60:1581-98 Blood 08/30/2021 5:50 AM EDT 08/30/2021 6:00 AM EDT Narrative Resulting Agency Comment Spec In Lab Geena Epperson MD CHEMISTRY ORDERABLES [facility] [place] [address] * Heparin (unfractionated) Level (08/30/2021 5:50 AM EDT) UF Heparin 0.30 IU/mL [facility] Comment: Heparin (anti-Xa) levels should be determined in a plasma sample that has been drawn 6 hours after a dose change to approximate steady-state for continuous heparin infusions. Indication specific Heparin (anti-Xa) levels based on order set selection: Acute DVT or PE treatment: 0.3 ? 0.7 IU/mL Thrombosis Prevention (eg. atrial fibrillation, marlen-procedural bridging, mechanical valves): 0.3 ? 0.7 IU/mL Acute Coronary Syndrome: 0.3 ? 0.7 IU/mL Stroke Indications: 0.3 ? 0.5 IU/mL Ultra-low intensity (select indications in cardiac surgery): 0.1 ? 0.3 IU/mL Blood 08/30/2021 5:50 AM EDT 08/30/2021 6:00 AM EDT Narrative Resulting Agency Comment Spec In Lab Geena Epperson MD HEMATOLOGY ORDERABLE S Performing Organization Address [facility] Co de Phone Number [facility] [place] [address] * (ABNORMAL) POCT Glucose (08/30/2021 1:40 AM EDT) Glucose, POC 208(H) 65 - 199 mg/dL [facility] Comment: Supplemental ranges: <140 mg/dL before meals <180 mg/dL all other times of the day Blood 08/30/2021 1:40 AM EDT 08/30/2021 1:40 AM EDT Mary Ferguson MD POINT OF CARE TEST O RDERABLES Performing Organization Address [facility] de Phone Number [facility] [place] [address] * (ABNORMAL) Troponin (08/29/2021 11:34 PM EDT) Troponin-T 0.02(H) 0.00 - 0.00 ng/mL [facility] Comment: The 99th percentile for Troponin T is less than 0.01 ng/mL, any detectable cTnT concentration using this assay should be considered elevated. According to the third universal definition of myocardial infarction the following criteria with a clinical presentation consistent with acute myocardial ischemia meets the diagnosis for a myocardial infarction (MN). Detection of a rise and/or fall of cTnT, with at least one value greater than the 99th percentile (> or = 0.01) and with at least one of the following ?? Symptoms of ischemia ?? New or presumed new significant RD-upmwffr-I wave (ST-T) changes or new left bundle branch block (LBBB) ?? Development of pathologic Q waves in the ECG ?? Imaging evidence of new loss of viable myocardium or new regional wall motion abnormality ?? Identification of an intracoronary thrombus by angiography or autopsy Samples for cTnT testing should be obtained serially upon first assessment and again 3 to 6 hours later. If the clinical suspicion is high and previous samples have been negative an additional sample may be indicated. Reference: Third [place] Definition of Myocardial Infarction. Journal of the [employer] College [employer] 2012;60:1581-98 Blood 08/29/2021 11:3 4 PM EDT 08/29/2021 11:41 PM EDT Narrative Resulting Agency Comment Spec In Lab Geena Epperson MD CHEMISTRY ORDERABLES [facility] [place] [address] * (ABNORMAL) Differential, Automated (08/29/2021 11:34 PM EDT) Neutrophil % 53.3 % [facility] Neutrophil Absolute 5.53 1.70 - 6.10 x10(3)/mc L [facility] Lymph % 35.9 % [facility] Lymphocytes Abs 3.7(H) 0.9 - 3.2 x10(3)/mc L [facility] Monocyte % 4.2 % [facility] Monocyte Abs 0.4 0.3 - 0.9 x10(3)/mc L [facility] Eos % 5.0 % [facility] Eosinophils Abs 0.5(H) 0.0 - 0.4 x10(3)/mc L [facility] Basophil % 1.2 % [facility] Baso Absolute 0.1 0.0 - 0.1 x10(3)/mc L [facility] Immature Gran % 0.40 % [facility] Comment: Immature granulocytes(IG's)percentage and absolute count will include metamyelocytes, myelocytes, and promyelocytes. Blood smears from CBCs yielding IG's will be scanned manually for concordance. If this scan disagrees with the automated IG or if promyelocytes are noted, a manual differential will be performed. Immature Gran Absolute 0.04 0.00 - 0.04 x10(3)/ L [facility] Blood 08/29/2021 11:3 4 PM EDT 08/29/2021 11:41 PM EDT Narrative Resulting Agency Comment Spec In Lab Geena Epperson MD HEMATOLOGY ORDERABLE S [facility] [place] [address] * (ABNORMAL) Hemogram (08/29/2021 11:34 PM EDT) White Blood Cell 10.4(H) 4.0 - 9.5 x10(3)/[facility] Red Blood Cell 4.66 4.00 - 5.21 x10(6)/[facility] Hemoglobin 12.8 11.7 - 15.5 g/dL [facility] Hematocrit 39.8 35.7 - 45.8 % [facility] Mean Cell Volume 85.4 82.6 - 94.4 fL [facility] Mean Cell Hemoglobin 27.5 27.1 - 32.0 pg [facility] Mean Cell Hemoglobin Concentration 32.2 31.7 - 35.0 g/dL [facility] Platelet 262 145 - 357 x10(3)/[facility] RDW Standard Deviation 40.4 37.0 - 46.0 [facility] RDW coefficient of variation 13.2 11.5 - 14.1 % [facility] Mean Platelet Volume 10.8 7.6 - 12.9 [facility] NRBC% auto 0.0 % [facility] NRBC Absolute 0.000 0.000 - 0.000 x10(3)/ L [facility] Blood 08/29/2021 11:3 4 PM EDT 08/29/2021 11:41 PM EDT Narrative Resulting Agency Comment Spec In Lab Geena Epperson MD HEMATOLOGY ORDERABLE S Performing Organization Address [facility] Co de Phone Number [facility] [place] [address] * Heparin (unfractionated) Level (08/29/2021 11:34 PM EDT) UF Heparin 0.38 IU/mL [facility] Comment: Heparin (anti-Xa) levels should be determined in a plasma sample that has been drawn 6 hours after a dose change to approximate steady-state for continuous heparin infusions. Indication specific Heparin (anti-Xa) levels based on order set selection: Acute DVT or PE treatment: 0.3 ? 0.7 IU/mL Thrombosis Prevention (eg. atrial fibrillation, marlen-procedural bridging, mechanical valves): 0.3 ? 0.7 IU/mL Acute Coronary Syndrome: 0.3 ? 0.7 IU/mL Stroke Indications: 0.3 ? 0.5 IU/mL Ultra-low intensity (select indications in cardiac surgery): 0.1 ? 0.3 IU/mL Blood 08/29/2021 11:3 4 PM EDT 08/29/2021 11:41 PM EDT Narrative Resulting Agency Comment Spec In Lab Geena Epperson MD HEMATOLOGY ORDERABLE S Performing Organization Address City/[facility]/ZIP Co de Phone Number [facility] [place] [address] * (ABNORMAL) BMP w/fasting Glucose (08/29/2021 11:34 PM EDT) Glucose Fasting 236(H) 65 - 99 mg/dL [facility] Comment: ?Fasting* Glucose Interpretive Criteria Normal ?65-99 mg/dL Impaired Fasting glucose ?100-125 mg/dL Consistent with Diabetes Mellitus ? >or= 126 mg/dL *Fasting is defined as no caloric intake for at least 8 hours In the absence of unequivocal hyperglycemia a plasma glucose value of >or= 126 mg/dL should be repeated on a subsequent day. Diagnosis and Classification of Diabetes Mellitus, Position Statement from the [place] [employer]. ??Diabetes Care, Volume 33, Supplement 1, Feb 2009 Blood Urea Nitrogen 16 8 - 18 mg/dL [facility] Creatinine 1.38(H) 0.70 - 1.20 mg/dL [facility] Sodium 135 135 - 145 mmol/L [facility] Potassium 4.2 3.5 - 5.0 mmol/L [facility] Comment: Please note: ??Patients with WBC >100,000 may have falsely elevated Potassium levels. ??For accurate Potassium quantification in these patients send serum separator tube (gold top) for subsequent determinations. ??Contact the Clinical Chemistry Laboratory if there are any questions. Chloride 102 98 - 107 mmol/L [facility] Carbon Dioxide 23 22 - 31 mmol/L [facility] Anion Gap 10 5 - 15 mmol/L [facility] Calcium 8.3(L) 8.5 - 10.5 mg/dL [facility] Est Glomerular Filtration Rate 42(L) >=60 mL/min/1. 73 m?? [facility] Comment: This patient's estimated [...] and symptoms in addition to eGFR. Blood 08/29/2021 11:3 4 PM EDT 08/29/2021 11:41 PM EDT Narrative Resulting Agency Comment Spec In Lab Geena Epperson MD CHEMISTRY ORDERABLES Performing Organization Address [facility] Co de Phone Number [facility] [place] [address] * EKG 12 Lead (08/29/2021 11:25 PM EDT) Ventricular rate 77 BPM MUSE SYSTEM Atrial Rate 77 BPM MUSE SYSTEM P-R Interval 158 ms MUSE SYSTEM QRS Duration 84 ms MUSE SYSTEM Q-T Interval 390 ms MUSE SYSTEM QTC Calculated (Bezet) 441 ms MUSE SYSTEM Calculated P [employer] 61 degrees MUSE SYSTEM Calculated R [employer] 43 degrees MUSE SYSTEM Calculated T [employer] 71 degrees MUSE SYSTEM INTERPRETATION Normal sinus rhythm Nonspecific ST abnormality Otherwise normal ECG When compared with ECG of 14-JAN-2015 07:03, there is a biphasic t wave change in the anteroseptal leads as compared to prior I personally reviewed the tracing and edited the fellows interpretation Confirmed by fellow MD Chacon Ashley [id number]) on 08/30/2021 6:14:05 PM Confirmed by MD Elizabeth, Stalin ([id number]) on 08/31/2021 2:26:59 PM MUSE SYSTEM 08/29/2021 11:2 5 PM EDT 08/31/2021 2:26 PM EDT Geena Epperson MD ECG ORDERABLES Performing Organization Address [facility] Co de Phone Number MUSE SYSTEM * POCT Glucose (08/29/2021 10:42 PM EDT) Glucose, POC 189 65 - 199 mg/dL [facility] Comment: Supplemental ranges: <140 mg/dL before meals <180 mg/dL all other times of the day Blood 08/29/2021 10:4 2 PM EDT 08/29/2021 10:42 PM EDT Mary Ferguson MD POINT OF CARE TEST O RDERABLES Performing Organization Address [facility] Co de Phone Number [facility] [place] [address] documented in this encounter Visit Diagnoses Diagnosis NSTEMI (non-ST elevated myocardial infarction)- Primary Acute myocardial infarction, subendocardial infarction, episode of care unspecified Non-ST elevation myocardial infarction (NSTEMI) Acute myocardial infarction, subendocardial infarction, episode of care unspecified Coronary artery disease, unspecified vessel or lesion type, unspecified whether angina present, unspecified whether [place] or transplanted heart documented in this encounter Admitting Diagnoses Diagnosis NSTEMI (non-ST elevated myocardial infarction) Acute myocardial infarction, subendocardial infarction, episode of care unspecified documented in this encounter Administered Medications Inactive Administered Medications - up to 3 most recent administrations Medication Order MAR Action Action Date Dose Rate Site aspirin EC tablet 81 mg 81 mg, Oral, DAILY, First dose on Mon08/30/21 at 0900, Until Discontinued Given 08/31/2021 8:10 AM EDT 81 mg Given 08/30/2021 8:51 AM EDT 81 mg aspirin EC tablet 81 mg 81 mg, Oral, DAILY, First dose on Mon09/01/21 at 0900, Until Discontinued, Recovery (Recovery-Hospital Unit), Routine Given 09/01/2021 8:28 AM EDT 81 mg clopidogreL (Plavix) tablet 75 mg 75 mg, Oral, DAILY, First dose on Mon08/30/21 at 0900, Until Discontinued, Routine Given 08/31/2021 8:10 AM EDT 75 mg Given 08/30/2021 8:51 AM EDT 75 mg clopidogreL (Plavix) tablet 75 mg 75 mg, Oral, DAILY, First dose on Mon09/01/21 at 0900, Until Discontinued, Recovery (Recovery-Hospital Unit), Routine Given 09/01/2021 8:29 AM EDT 75 mg dextrose 10% infusion 250 mL, at 1,000 mL/hr, Intravenous, EVERY 30 MIN PRN, Starting on Mon08/30/21 at 0050, Until Mon09/01/21 at 1446, For BG 50-70 mg/dL: Oral treatment preferred: If able to drink, give 120 mL Juice or Regular (not diet) soda OR If NPO, give 15 gram glucose 40% oral gel massaged into buccal mucosa OR if unconscious or uncooperative, give 25 gram (250 mL) Dextrose 10% IV over 15 minutes per protocol OR, if no IV access, 1 mg Glucagon IM. For BG less than 50 mg/dL: Oral treatment preferred: If able to drink, give 240 mL Juice or Regular (not diet) soda OR If NPO, give 30 gram glucose 40% oral gel massaged in buccal mucosa OR if unconscious or uncooperative, give 25 gram (250 mL) Dextrose 10% IV over 15 minutes per protocol OR, if no IV access, 1 mg Glucagon IM. Recheck BG in 30 minutes. May repeat juice/soda, gel, dextrose or glucagon once per episode. For persistent hypoglycemia, consider longer-acting treatment for the duration of the active insulin. diphenhydrAMINE (Benadryl) capsule 50 mg 50 mg, Oral, ONCE, 1 dose, On Mon08/30/21 at 1745, Routine Given 08/30/2021 6:12 PM EDT 50 mg glucagon (Glucagen) (1 mg/mL) injection solution 1 mg 1 mg, Intramuscular, EVERY 30 MIN PRN, Starting on Mon08/30/21 at 0050, Until Mon09/01/21 at 1446, Low blood sugar, For BG 50-70 mg/dL: Oral treatment preferred: If able to drink, give 120 mL Juice or Regular (not diet) soda OR If NPO, give 15 gram glucose 40% oral gel massaged into buccal mucosa OR if unconscious or uncooperative, give 25 gram (250 mL) Dextrose 10% IV over 15 minutes per protocol OR, if no IV access, 1 mg Glucagon IM. For BG less than 50 mg/dL: Oral treatment preferred: If able to drink, give 240 mL Juice or Regular (not diet) soda OR If NPO, give 30 gram glucose 40% oral gel massaged in buccal mucosa OR if unconscious or uncooperative, give 25 gram (250 mL) Dextrose 10% IV over 15 minutes per protocol OR, if no IV access, 1 mg Glucagon IM. Recheck BG in 30 minutes. May repeat juice/soda, gel, dextrose or glucagon once per episode. For persistent hypoglycemia, consider longer-acting treatment for the duration of the active insulin., Routine glucose (Glutose) 40% oral geL 15-30 g of glucose, Buccal, EVERY 30 MIN PRN, Starting on Mon08/30/21 at 0050, Until Mon09/01/21 at 1446, Low blood sugar, For BG 50-70 mg/dL: Oral treatment preferred: If able to drink, give 120 mL Juice or Regular (not diet) soda OR If NPO, give 15 gram glucose 40% oral gel massaged into buccal mucosa OR if unconscious or uncooperative, give 25 gram (250 mL) Dextrose 10% IV over 15 minutes per protocol OR, if no IV access, 1 mg Glucagon IM. For BG less than 50 mg/dL: Oral treatment preferred: If able to drink, give 240 mL Juice or Regular (not diet) soda OR If NPO, give 30 gram glucose 40% oral gel massaged in buccal mucosa OR if unconscious or uncooperative, give 25 gram (250 mL) Dextrose 10% IV over 15 minutes per protocol OR, if no IV access, 1 mg Glucagon IM. Recheck BG in 30 minutes. May repeat juice/soda, gel, dextrose or glucagon once per episode. For persistent hypoglycemia, consider longer-acting treatment for the duration of the active insulin. 1 tube of Glutose-15 contains 15 grams of glucose (net weight of tube = 37.5 grams.), Routine heparin (porcine) (1,000 units/mL) injection 0-4,000 Units 0-4,000 Units, Intravenous, BOLUS PER HEPARIN PROTOCOL, Starting on Mon08/29/21 at 2304, Until Mon08/31/21 at 1142, Per Protocol, START ADJUSTMENT SCHEDULE 6 HOURS AFTER STARTING INFUSION Bolus doses are rounded to the nearest 100 units. If Heparin UFH Level is: - Less than 0.1 international unit/mL: Bolus 60 units/kg (Maximum of 4,000 units) = Bolus 4,000 units - 0.1 - 0.19 International unit/mL: Bolus 30 units/kg (Maximum of 2,000 units) = Bolus 2,000 units - Equal to or greater than 0.2 international unit/mL: No Bolus, Routine Given 08/31/2021 6:34 AM EDT 2,000 Units heparin (porcine) 50 units/mL in sodium chloride 0.45% 500 mL infusion 0-5,000 Units/hr (0-100 mL/hr), Intravenous, CONTINUOUS, Starting on 08/30/21 at 0000, Until Mon08/31/21 at 1142, Begin infusion at 1,000 units per hr (12 units/kg/hr). Maximum initial infusion rate is 1,000 units/hr. Infusion doses are rounded to the nearest 50 units. Target Heparin UFH Level (anti-Xa activity) = 0.3 - 0.7 international unit/mL Start adjustment schedule 6 hours after starting infusion. If Heparin UFH Level is: - Less than 0.1 international unit/mL: Administer PRN bolus and increase rate by 350 units per hr (4 units/kg/hr) - 0.1 - 0.19 international unit/mL: Administer PRN bolus and increase rate by 150 units per hr (2 units/kg/hr) - 0.2 - 0.29 international unit/mL: NO BOLUS and increase rate by 150 units per hr (2 units/kg/hr) - 0.3 - 0.7 international unit/mL: No change - 0.71 - 0.79 international unit/mL: NO BOLUS and decrease rate by 100 units per hr (1 units/kg/hr) - 0.8 - 0.99 international unit/mL: NO BOLUS and decrease rate by 150 units per hr (2 units/kg/hr) - Greater than or equal to 1.00 international unit/mL: Hold infusion for 60 minutes then decrease rate by 250 units per hour (3 units/kg/hr) Repeat Heparin UFH Level 6 hours after initiating heparin. Then 6 hours after each dose adjustment. When 2 consecutive Heparin UFH Level within target range of 0.3 - 0.7 international unit/mL, change Heparin UFH Level to once every 24 hours with A.M. labs while on heparin. RN to order required Heparin UFH Level - Per Protocol, Routine Rate/Dose Change 08/31/2021 6:32 AM EDT 1,150 Units/hr 23 mL/hr New Bag 08/31/2021 4:31 AM EDT 1,000 Units/hr 20 mL/hr New Bag 08/31/2021 12:28 AM EDT 1,000 Units/hr 20 mL/hr insulin glargine-ygfn (Semglee) (100 unit/mL) subcutaneous injection vial 40 Units 40 Units, Subcutaneous, DAILY WITH LUNCH, First dose on Mon08/30/21 at 1445, Until Discontinued, STAT Given 08/31/2021 11:34 AM EDT 40 Units Given 08/30/2021 2:07 PM EDT 40 Units insulin glargine-ygfn (Semglee) (100 unit/mL) subcutaneous injection vial 40 Units 40 Units, Subcutaneous, EVERY 12 HOURS, First dose (after last modification) on Mon08/31/21 at 2100, Until Discontinued, To hold or delay giving lantus if BG<90., Routine Given 08/31/2021 8:28 PM EDT 40 Units insulin glargine-ygfn (Semglee) (100 unit/mL) subcutaneous injection vial 40 Units 40 Units, Subcutaneous, NIGHTLY, First dose (after last modification) on Mon09/01/21 at 2100, Until Discontinued, To delay giving lantus if BG<90 and notify team to adjust the dose., Routine insulin lispro (HumaLOG;Admelog) (100 unit/mL) subcutaneous injection vial 0-15 Units 0-15 Units, Subcutaneous, 3 TIMES DAILY WITH MEALS, First dose on Mon08/31/21 at 1700, Until Discontinued, ME[employer] Give 1 unit: 5 grams of carbohydrate Hold if not eating or if BG less than 70 mg/dL., Routine Given 09/01/2021 8:26 AM EDT 5 Units Given 08/31/2021 6:00 PM EDT 13 Units insulin lispro (HumaLOG;Admelog) (100 unit/mL) subcutaneous injection vial 0-20 Units 0-20 Units, Subcutaneous, 3 TIMES DAILY WITH MEALS, First dose on Mon08/30/21 at 1700, Until Discontinued, ME[employer] Give 1 unit: 5 grams of carbohydrate Hold if not eating or if BG less than 70 mg/dL., Routine Given 08/31/2021 12:34 PM EDT 13 Units insulin lispro (HumaLOG;Admelog) (100 unit/mL) subcutaneous injection vial 1-10 Units 1-10 Units, Subcutaneous, EVERY 4 HOURS SCHEDULED, First dose on Mon08/31/21 at 1600, Until Discontinued, CORRECTION BOLUS Custom correction factor 10-20 BG 140 - 160 Give 1 units BG 161 - 180 Give 2 units BG 181 - 200 Give 4 units BG 201 - 220 Give 6 units BG 221 - 240 Give 8 units BG greater than 240, give 10 units and recheck BG in 2 hours. If BG remains GREATER THAN 240, GIVE 10??units (no more than two??times) &??call for new basal insulin orders. If less than 240 after two hours, give no insulin and resume prior schedule, Routine Given 08/31/2021 8:27 PM EDT 10 Units Given 08/31/2021 4:16 PM EDT 10 Units insulin lispro (HumaLOG;Admelog) (100 unit/mL) subcutaneous injection vial 1-6 Units 1-6 Units, Subcutaneous, 4 TIMES DAILY BEFORE MEALS & NIGHTLY, First dose (after last modification) on Mon08/30/21 at 2130, Until Discontinued, CORRECTION BOLUS [1-6 Units] Moderate [...] - If recheck BG is GREATER than 240, give 6 units and repeat BG in 2 hours (no more than 3 times) & call for new insulin orders. DO NOT hold if NPO, unless specifically directed to do so by written order. Per Blood Glucose Monitoring Policy, re-check a BG of > 240 mg/dL in 2 hours., Routine Given 08/31/2021 11:32 AM EDT 4 Units Given 08/31/2021 7:44 AM EDT 6 Units Given 08/30/2021 8:54 PM EDT 6 Units insulin lispro (HumaLOG;Admelog) (100 unit/mL) subcutaneous injection vial 2-12 Units 2-12 Units, Subcutaneous, 3 TIMES DAILY BEFORE MEALS, First dose on Mon08/30/21 at 0730, Until Discontinued, CORRECTION BOLUS [2-12 Units] Resistant Sliding Scale (BG in mg/dL): Correction Factor 10 (1 unit of insulin is expected to drop the glucose 10 mg/dL) BG 140 - 160 Give 2 units BG 161 - 180 Give 4 units BG 181 - 200 Give 6 units BG 201 - 220 Give 8 units BG 221 - 240 Give 10 units BG greater than 240, give 12 units and recheck BG in 2 hours. - If recheck BG is LESS than 240, give no insulin and resume schedule. - If recheck BG is GREATER than 240, give 12 units and repeat BG in 2 hours (no more than 3 times) & call for new insulin orders. DO NOT hold if NPO, unless specifically directed to do so by written order. Per Blood Glucose Monitoring Policy, re-check a BG of > 240 mg/dL in 2 hours, Routine Given 08/30/2021 7:43 AM EDT 8 Units insulin lispro (HumaLOG;Admelog) (100 unit/mL) subcutaneous injection vial 5 Units 5 Units, Subcutaneous, ONCE, 1 dose, On Mon08/31/21 at 0515, Routine Given 08/31/2021 4:40 AM EDT 5 Units insulin lispro (HumaLOG;Admelog) (100 unit/mL) subcutaneous injection vial 8 Units 8 Units, Subcutaneous, ONCE, 1 dose, On Mon08/31/21 at 0045, Routine Given 08/31/2021 12:03 AM EDT 8 Units metoprolol tartrate (Lopressor) tablet 12.5 mg 12.5 mg, Oral, EVERY 12 HOURS SCHEDULED (2 times per day), First dose on Mon08/30/21 at 0900, Until Discontinued, Routine Given 09/01/2021 8:29 AM EDT 12.5 mg Given 08/31/2021 8:28 PM EDT 12.5 mg Given 08/31/2021 8:10 AM EDT 12.5 mg nitroGLYcerin (200 mcg/mL) in dextrose 5% 250 mL infusion 0-200 mcg/min (0-60 mL/hr), Intravenous, CONTINUOUS, Starting on Mon08/30/21 at 0000, Until Mon08/31/21 at 1142, Titrate to angina pain 3/10 or less. Start at 10 mcg/min for pain not responsive to sublingual nitroGLYcerin and morphine and if systolic blood pressure (SBP) is 100 mmHg or greater. Adjust dose 10 mcg/min every 5 minutes if SBP is 100 mmHg or greater. Dose not to exceed 200 mcg/min., Routine New Bag 08/31/2021 4:31 AM EDT 15 mcg/min 4.5 mL/hr New Bag 08/29/2021 11:08 PM EDT 15 mcg/min 4.5 mL/hr pantoprazole EC (Protonix) tablet 40 mg 40 mg, Oral, DAILY, First dose on Mon08/30/21 at 0900, Until Discontinued, DO NOT CRUSH OR OPEN Given 09/01/2021 8:30 AM EDT 40 mg Given 08/31/2021 8:10 AM EDT 40 mg Given 08/30/2021 8:51 AM EDT 40 mg perflutren protein-A microsphers (Optison) (0.22 mg/mL) injection 0.6 mL 0.6 mL, Intravenous, ONCE PRN, 1 dose, Starting on Mon08/30/21 at 0909, Until Mon08/30/21 at 0910, Per Protocol, Routine Given 08/30/2021 9:10 AM EDT 0.6 m Ls predniSONE (Deltasone) tablet 50 mg 50 mg, Oral, EVERY 6 HOURS, 3 doses, First dose (after last modification) on Mon08/30/21 at 1900, Last dose on Mon08/31/21 at 0700, Routine Given 08/31/2021 6:04 AM EDT 50 mg Given 08/31/2021 12:02 AM EDT 50 mg Given 08/30/2021 6:12 PM EDT 50 mg rosuvastatin (Crestor) tablet 40 mg 40 mg, Oral, EVERY EVENING, First dose on Mon08/30/21 at 1700, Until Discontinued, Routine Given 08/31/2021 4:50 PM EDT 40 mg Given 08/30/2021 4:26 PM EDT 40 mg sodium chloride 0.9 % (flush) (BD PosiFlush Normal Saline 0.9) flush 5 mL 5 mL, Intravenous, 2 TIMES DAILY, First dose on Mon08/30/21 at 0145, Until Discontinued, Routine Given 09/01/2021 8:30 AM EDT 5 mLs Given 08/31/2021 8:28 PM EDT 5 mLs Given 08/31/2021 9:00 AM EDT 5 mLs sodium chloride 0.9% infusion 50 mL/hr, Intravenous, CONTINUOUS, Starting on Mon08/31/21 at 1045, Until Mon08/31/21 at 1444, Recovery (Recovery-Hospital Unit) New Bag 08/31/2021 10:26 AM EDT 50 mL/hr 50 mL /hr documented in this encounter Active and Recently Administered Medications Times are shown in EDT. Scheduled Medication Order 08/30/2021 08/31/2021 09/01/2021 aspirin EC tablet 81 mg (CANCELED) 81 mg, Oral, DAILY, First dose on Mon08/30/21 at 0900, Until Discontinued 0851 (Given - Provider: Candice Faustin RN) 0810 (Given - Provider: Candice Faustin RN)0826 (APR Hold - Provider: Admin Adt - Reason: Transfer to a Procedural area)1022 (APR Unhold - Provider: JUAN Callaway) aspirin EC tablet 81 mg 81 mg, Oral, DAILY, First dose on Mon09/01/21 at 0900, Until Discontinued, Recovery ([facility]), Routine 0828 (Given - Provider: Saba Hoffman RN) clopidogreL (Plavix) tablet 75 mg (CANCELED) 75 mg, Oral, DAILY, First dose on Mon08/30/21 at 0900, Until Discontinued, Routine 0851 (Given - Provider: Candice Faustin RN) 0810 (Given - Provider: Candice Faustin RN)0826 (APR Hold - Provider: Admin Adt - Reason: Transfer to a Procedural area)1022 (APR Unhold - Provider: JUAN Callaway) clopidogreL (Plavix) tablet 75 mg 75 mg, Oral, DAILY, First dose on Mon09/01/21 at 0900, Until Discontinued, Recovery ([facility]ospital [facility]), Routine 0829 (Given - Provider: Saba Hoffman, JAY) diphenhydrAMINE (Benadryl) capsule 50 mg (COMPLETED) 50 mg, Oral, ONCE, 1 dose, On Mon08/30/21 at 1745, Routine 1812 (Given - Provider: Candice Faustin RN) insulin glargine-ygfn (Semglee) (100 unit/mL) subcutaneous injection vial 40 Units (CANCELED) 40 Units, Subcutaneous, DAILY WITH LUNCH, First dose on Mon08/30/21 at 1445, Until Discontinued, STAT 1407 (Given - Provider: Candice Faustin RN) 0826 (APR Hold - Provider: Admin Adt - Reason: Transfer to a Procedural area)1101 (APR Unhold - Provider: Admin Adt)1134 (Given - Provider: Candice Faustin RN) insulin glargine-ygfn (Semglee) (100 unit/mL) subcutaneous injection vial 40 Units (CANCELED) 40 Units, Subcutaneous, EVERY 12 HOURS, First dose (after last modification) on Mon08/31/21 at 2100, Until Discontinued, To hold or delay giving lantus if BG<90., Routine 2027 (Given - Provider: Nica Chacon RN) insulin glargine-ygfn (Semglee) (100 unit/mL) subcutaneous injection vial 40 Units 40 Units, Subcutaneous, NIGHTLY, First dose (after last modification) on Mon09/01/21 at 2100, Until Discontinued, To delay giving lantus if BG<90 and notify team to adjust the dose., Routine insulin lispro (HumaLOG;Admelog) (100 unit/mL) subcutaneous injection vial 0-15 Units 0-15 Units, Subcutaneous, 3 TIMES DAILY WITH MEALS, First dose on Mon08/31/21 at 1700, Until Discontinued, ME[employer]IATED Give 1 unit: 5 grams of carbohydrate Hold if not eating or if BG less than 70 mg/dL., Routine 1800 (Given - Provider: Candice Faustin RN) 0826 (Given - Provider: Saba Hoffman RN)1200 (Due) insulin lispro (HumaLOG;Admelog) (100 unit/mL) subcutaneous injection vial 0-20 Units (CANCELED) 0-20 Units, Subcutaneous, 3 TIMES DAILY WITH MEALS, First dose on Mon08/30/21 at 1700, Until Discontinued, MEAL ASS[employer]IATED Give 1 unit: 5 grams of carbohydrate Hold if not eating or if BG less than 70 mg/dL., Routine 1700 (Not Given - Provider: Candice Faustin RN - Reason: Patient/family refused - Comment: pt feels low checked sugar on home meter after eating and read 107) 0800 (Not Given - Provider: Candice Faustin RN - Reason: NPO)0826 (MAR Hold - Provider: Admin Adt - Reason: Transfer to a Procedural area)1101 (MAR Unhold - Provider: Admin Adt)1234 (Given - Provider: Candice Faustin RN) insulin lispro (HumaLOG;Admelog) (100 unit/mL) subcutaneous injection vial 1-10 Units(Linked Group 1) 1-10 Units, Subcutaneous, EVERY 4 HOURS SCHEDULED, First dose on Mon08/31/21 at 1600, Until Discontinued, CORRECTION BOLUS Custom correction factor 10-20 BG 140 - 160 Give 1 units BG 161 - 180 Give 2 units BG 181 - 200 Give 4 units BG 201 - 220 Give 6 units BG 221 - 240 Give 8 units BG greater than 240, give 10 units and recheck BG in 2 hours. If BG remains GREATER THAN 240, GIVE 10??units (no more than two??times) &??call for new basal insulin orders. If less than 240 after two hours, give no insulin and resume prior schedule, Routine 1616 (Given - Provider: Candice Faustin, RN)2027 (Given - Provider: Nica Chacon RN) 0000 (Not Given - Provider: Nica Chacon RN - Reason: Order parameters not met)0400 (Not Given - Provider: Nica Chacon RN - Reason: Order parameters not met)0800 (Not Given - Provider: Saba Hoffman RN - Reason: Order parameters not met)1200 (Not Given - Provider: Saba Hoffman RN - Reason: Order parameters not met) insulin lispro (HumaLOG;Admelog) (100 unit/mL) subcutaneous injection vial 1-6 Units (CANCELED)(Linked Group 2) 1-6 Units, Subcutaneous, 4 TIMES DAILY BEFORE MEALS & NIGHTLY, First dose (after last modification) on Mon08/30/21 at 2130, Until Discontinued, CORRECTION BOLUS [1-6 Units] Moderate [...] - If recheck BG is GREATER than 240, give 6 units and repeat BG in 2 hours (no more than 3 times) & call for new insulin orders. DO NOT hold if NPO, unless specifically directed to do so by written order. Per Blood Glucose Monitoring Policy, re-check a BG of > 240 mg/dL in 2 hours., Routine 2053 (Given - Provider: Yasemin Pillai RN) 0744 (Given - Provider: Candice Faustin RN)0826 (APR Hold - Provider: Admin Adt - Reason: Transfer to a Procedural area)1101 (MAR Unhold - Provider: Admin Adt)1132 (Given - Provider: Candice Faustin RN) insulin lispro (HumaLOG;Admelog) (100 unit/mL) subcutaneous injection vial 2-12 Units (CANCELED)(Linked Group 3) 2-12 Units, Subcutaneous, 3 TIMES DAILY BEFORE MEALS, First dose on Mon08/30/21 at 0730, Until Discontinued, CORRECTION BOLUS [2-12 Units] Resistant Sliding Scale (BG in mg/dL): Correction Factor 10 (1 unit of insulin is expected to drop the glucose 10 mg/dL) BG 140 - 160 Give 2 units BG 161 - 180 Give 4 units BG 181 - 200 Give 6 units BG 201 - 220 Give 8 units BG 221 - 240 Give 10 units BG greater than 240, give 12 units and recheck BG in 2 hours. - If recheck BG is LESS than 240, give no insulin and resume schedule. - If recheck BG is GREATER than 240, give 12 units and repeat BG in 2 hours (no more than 3 times) & call for new insulin orders. DO NOT hold if NPO, unless specifically directed to do so by written order. Per Blood Glucose Monitoring Policy, re-check a BG of > 240 mg/dL in 2 hours, Routine 07 (Given - Provider: Candice Faustin RN)1130 (Not Given - Provider: Candice Faustin RN - Reason: Order parameters not met) insulin lispro (HumaLOG;Admelog) (100 unit/mL) subcutaneous injection vial 5 Units (COMPLETED)(Linked Group 4) 5 Units, Subcutaneous, ONCE, 1 dose, On Mon08/31/21 at 0515, Routine 0440 (Given - Provider: Yasemin Pillai RN) insulin lispro (HumaLOG;Admelog) (100 unit/mL) subcutaneous injection vial 8 Units (COMPLETED) 8 Units, Subcutaneous, ONCE, 1 dose, On Mon08/31/21 at 0045, Routine 0003 (Given - Provider: Yasemin Pillai, RN) metoprolol tartrate (Lopressor) tablet 12.5 mg 12.5 mg, Oral, EVERY 12 HOURS SCHEDULED (2 times per day), First dose on Mon08/30/21 at 0900, Until Discontinued, Routine 0851 (Given - Provider: Candice Faustin RN)2004 (Given - Provider: Yasemin Pillai, RN) 08 (Given - Provider: Candice Faustin RN)08 (APR Hold - Provider: Admin Adt - Reason: Transfer to a Procedural area)110 (APR Unhold - Provider: Admin Adt)2027 (Given - Provider: Nica Chacon RN) 08 (Given - Provider: Saba Hoffman, JAY) pantoprazole EC (Protonix) tablet 40 mg 40 mg, Oral, DAILY, First dose on Mon08/30/21 at 0900, Until Discontinued, DO NOT CRUSH OR OPEN 0851 (Given - Provider: Candice Faustin RN) 08 (Given - Provider: Candice Faustin RN)08 ([facility] [place] Hold - Provider: Admin Adt - Reason: Transfer to a Procedural area)110 ([facility] [place] Unhold - Provider: Admin Adt) 829 (Given - Provider: Saba Hoffman, JAY) predniSONE (Deltasone) tablet 50 mg (COMPLETED) 50 mg, Oral, EVERY 6 HOURS, 3 doses, First dose (after last modification) on Mon08/30/21 at 1900, Last dose on Mon08/31/21 at 0700, Routine 1812 (Given - Provider: Candice Faustin RN) 0002 (Given - Provider: Yasemin Pillai, RN)0604 (Given - Provider: Yasemin Pillai, RN) rosuvastatin (Crestor) tablet 40 mg 40 mg, Oral, EVERY EVENING, First dose on Mon08/30/21 at 1700, Until Discontinued, Routine 1626 (Given - Provider: Candice Faustin RN) 0826 ([facility] [place] Hold - Provider: Admin Adt - Reason: Transfer to a Procedural area)110 ([facility] [place] Unhold - Provider: Admin Adt)1650 (Given - Provider: Candice Faustin, RN) sodium chloride 0.9 % (flush) (BD PosiFlush Normal Saline 0.9) flush 5 mL 5 mL, Intravenous, 2 TIMES DAILY, First dose on Mon08/30/21 at 0145, Until Discontinued, Routine 0145 (Not Given - Provider: Buddy Mendes RN - Reason: See comment - Comment: medication infusing)09 (Not Given - Provider: Candice Faustin RN - Reason: See comment - Comment: infusing)2004 (Given - Provider: Yasemin Pillai, RN) 0826 (APR Hold - Provider: Admin Adt - Reason: Transfer to a Procedural area)09 (Given - Provider: Candice Faustin RN)110 (APR Unhold - Provider: Admin Adt)2027 (Given - Provider: Nica Chacon, JAY) 0830 (Given - Provider: Saba Hoffman, JAY) Continuous Medication Order 08/30/2021 08/31/2021 09/01/2021 heparin (porcine) 50 units/mL in sodium chloride 0.45% 500 mL infusion (CANCELED)(Linked Group 5) 0-5,000 Units/hr (0-100 mL/hr), Intravenous, CONTINUOUS, Starting on Mon08/30/21 at 0000, Until Mon08/31/21 at 1142, Begin infusion at 1,000 units per hr (12 units/kg/hr). Maximum initial infusion rate is 1,000 units/hr. Infusion doses are rounded to the nearest 50 units. Target Heparin UFH Level (anti-Xa activity) = 0.3 - 0.7 international unit/mL Start adjustment schedule 6 hours after starting infusion. If Heparin UFH Level is: - Less than 0.1 international unit/mL: Administer PRN bolus and increase rate by 350 units per hr (4 units/kg/hr) - 0.1 - 0.19 international unit/mL: Administer PRN bolus and increase rate by 150 units per hr (2 units/kg/hr) - 0.2 - 0.29 international unit/mL: NO BOLUS and increase rate by 150 units per hr (2 units/kg/hr) - 0.3 - 0.7 international unit/mL: No change - 0.71 - 0.79 international unit/mL: NO BOLUS and decrease rate by 100 units per hr (1 units/kg/hr) - 0.8 - 0.99 international unit/mL: NO BOLUS and decrease rate by 150 units per hr (2 units/kg/hr) - Greater than or equal to 1.00 international unit/mL: Hold infusion for 60 minutes then decrease rate by 250 units per hour (3 units/kg/hr) Repeat Heparin UFH Level 6 hours after initiating heparin. Then 6 hours after each dose adjustment. When 2 consecutive Heparin UFH Level within target range of 0.3 - 0.7 international unit/mL, change Heparin UFH Level to once every 24 hours with A.M. labs while on heparin. RN to order required Heparin UFH Level - Per Protocol, Routine 0028 (New Bag - Provider: Yasemin Pillai RN)043 (New Bag - Provider: Yasemin Pillai RN)0632 (Rate/Dose Change - Provider: Yasemin Pillai RN)0700 (Stopped - Provider: Candice Faustin RN - Comment: off to optical laboratory technician)0826 (APR Hold - Provider: Admin Adt - Reason: Transfer to a Procedural area)1101 (MAR Unhold - Provider: Admin Adt) nitroGLYcerin (200 mcg/mL) in dextrose 5% 250 mL infusion (CANCELED) 0-200 mcg/min (0-60 mL/hr), Intravenous, CONTINUOUS, Starting on Mon08/30/21 at 0000, Until Mon08/31/21 at 1142, Titrate to angina pain 3/10 or less. Start at 10 mcg/min for pain not responsive to sublingual nitroGLYcerin and morphine and if systolic blood pressure (SBP) is 100 mmHg or greater. Adjust dose 10 mcg/min every 5 minutes if SBP is 100 mmHg or greater. Dose not to exceed 200 mcg/min., Routine 0431 (New Bag - Provider: Yasemin Pillai RN)0826 (APR Hold - Provider: Admin Adt - Reason: Transfer to a Procedural area)0902 (Stopped - Provider: Brianna Rubalcava)1100 (Stopped - Provider: Candice Faustin RN - Comment: stopped in optical laboratory technician)1101 (MAR Unhold - Provider: Admin Adt) sodium chloride 0.9% infusion () 50 mL/hr, Intravenous, CONTINUOUS, Starting on Mon08/31/21 at 1045, Until Mon08/31/21 at 1444, Recovery (Recovery-Hospital Unit) 1026 (New Bag - Provider: Joe Zurita, RN)1400 (Stopped - Provider: Candice Faustin RN) PRN Medication Order 08/30/2021 08/31/2021 09/01/2021 acetaminophen (Tylenol) tablet 650 mg 650 mg, Oral, EVERY 4 HOURS PRN, Starting on Mon08/30/21 at 0050, Until Mon09/01/21 at 1446, Pain, Headaches, Maximum dose of acetaminophen is 4000 mg from all sources in 24 hours. When ordered for pain, acetaminophen should be given even when other ordered pain medications are indicated. , Routine 825 (APR Hold - Provider: Admin Adt - Reason: Transfer to a Procedural area)1100 (APR Unhold - Provider: Admin Adt) dextrose 10% infusion(Linked Group 6) 250 mL, at 1,000 mL/hr, Intravenous, EVERY 30 MIN PRN, Starting on Mon08/30/21 at 0050, Until Mon09/01/21 at 1446, For BG 50-70 mg/dL: Oral treatment preferred: If able to drink, give 120 mL Juice or Regular (not diet) soda OR If NPO, give 15 gram glucose 40% oral gel massaged into buccal mucosa OR if unconscious or uncooperative, give 25 gram (250 mL) Dextrose 10% IV over 15 minutes per protocol OR, if no IV access, 1 mg Glucagon IM. For BG less than 50 mg/dL: Oral treatment preferred: If able to drink, give 240 mL Juice or Regular (not diet) soda OR If NPO, give 30 gram glucose 40% oral gel massaged in buccal mucosa OR if unconscious or uncooperative, give 25 gram (250 mL) Dextrose 10% IV over 15 minutes per protocol OR, if no IV access, 1 mg Glucagon IM. Recheck BG in 30 minutes. May repeat juice/soda, gel, dextrose or glucagon once per episode. For persistent hypoglycemia, consider longer-acting treatment for the duration of the active insulin. 825 (APR Hold - Provider: Admin Adt - Reason: Transfer to a Procedural area)110 (APR Unhold - Provider: Admin Adt) fentaNYL (pf) (50 mcg/mL) multi-dose injection (CANCELED) ONCE PRN, Starting on Mon08/31/21 at 0846, Until Mon08/31/21 at 1011, Intra-Operative (Intra-Procedure), Routine 0846 (Given - Provider: Susanna Jimenez, RN)0856 (Given - Provider: Ellen Lewis RN) glucagon (Glucagen) (1 mg/mL) injection solution 1 mg(Linked Group 6) 1 mg, Intramuscular, EVERY 30 MIN PRN, Starting on Mon08/30/21 at 0050, Until Mon09/01/21 at 1446, Low blood sugar, For BG 50-70 mg/dL: Oral treatment preferred: If able to drink, give 120 mL Juice or Regular (not diet) soda OR If NPO, give 15 gram glucose 40% oral gel massaged into buccal mucosa OR if unconscious or uncooperative, give 25 gram (250 mL) Dextrose 10% IV over 15 minutes per protocol OR, if no IV access, 1 mg Glucagon IM. For BG less than 50 mg/dL: Oral treatment preferred: If able to drink, give 240 mL Juice or Regular (not diet) soda OR If NPO, give 30 gram glucose 40% oral gel massaged in buccal mucosa OR if unconscious or uncooperative, give 25 gram (250 mL) Dextrose 10% IV over 15 minutes per protocol OR, if no IV access, 1 mg Glucagon IM. Recheck BG in 30 minutes. May repeat juice/soda, gel, dextrose or glucagon once per episode. For persistent hypoglycemia, consider longer-acting treatment for the duration of the active insulin., Routine 0826 (APR Hold - Provider: Admin Adt - Reason: Transfer to a Procedural area)1101 (APR Unhold - Provider: Admin Adt) glucose (Glutose) 40% oral geL(Linked Group 6) 15-30 g of glucose, Buccal, EVERY 30 MIN PRN, Starting on Mon08/30/21 at 0050, Until Mon09/01/21 at 1446, Low blood sugar, For BG 50-70 mg/dL: Oral treatment preferred: If able to drink, give 120 mL Juice or Regular (not diet) soda OR If NPO, give 15 gram glucose 40% oral gel massaged into buccal mucosa OR if unconscious or uncooperative, give 25 gram (250 mL) Dextrose 10% IV over 15 minutes per protocol OR, if no IV access, 1 mg Glucagon IM. For BG less than 50 mg/dL: Oral treatment preferred: If able to drink, give 240 mL Juice or Regular (not diet) soda OR If NPO, give 30 gram glucose 40% oral gel massaged in buccal mucosa OR if unconscious or uncooperative, give 25 gram (250 mL) Dextrose 10% IV over 15 minutes per protocol OR, if no IV access, 1 mg Glucagon IM. Recheck BG in 30 minutes. May repeat juice/soda, gel, dextrose or glucagon once per episode. For persistent hypoglycemia, consider longer-acting treatment for the duration of the active insulin. 1 tube of Glutose-15 contains 15 grams of glucose (net weight of tube = 37.5 grams.), Routine 08 (APR Hold - Provider: Admin Adt - Reason: Transfer to a Procedural area)110 (APR Unhold - Provider: Admin Adt) heparin (porcine) (1,000 units/mL) injection 0-4,000 Units (CANCELED)(Linked Group 5) 0-4,000 Units, Intravenous, BOLUS PER HEPARIN PROTOCOL, Starting on Mon08/29/21 at 2304, Until Mon08/31/21 at 1142, Per Protocol, START ADJUSTMENT SCHEDULE 6 HOURS AFTER STARTING INFUSION Bolus doses are rounded to the nearest 100 units. If Heparin UFH Level is: - Less than 0.1 international unit/mL: Bolus 60 units/kg (Maximum of 4,000 units) = Bolus 4,000 units - 0.1 - 0.19 International unit/mL: Bolus 30 units/kg (Maximum of 2,000 units) = Bolus 2,000 units - Equal to or greater than 0.2 international unit/mL: No Bolus, Routine 0634 (Given - Provider: Yasemin Pillai RN)08 (APR Hold - Provider: Admin Adt - Reason: Transfer to a Procedural area)1101 (APR Unhold - Provider: Admin Adt) heparin (porcine) (1,000 units/mL) injection (CANCELED) ONCE PRN, Starting on Mon08/31/21 at 0911, Until Mon08/31/21 at 1011, Cath (Intra-Procedure), Routine 09 (Given - Provider: Susanna Jimenez RN)0934 (Given - Provider: Ellen Lewis, JAY) lidocaine (Xylocaine) 1% (10 mg/mL) injection 3 mg 3 mg (0.3 mL), Subcutaneous, ONCE PRN, 1 dose, Starting on Mon08/30/21 at 0050, Until Mon09/01/21 at 1446, for discomfort with PIV insertion, Routine 08 (APR Hold - Provider: Admin Adt - Reason: Transfer to a Procedural area)110 (APR Unhold - Provider: Admin Adt) lidocaine (Xylocaine) 1% (10 mg/mL) injection (CANCELED) ONCE PRN, Starting on Mon08/31/21 at 0858, Until Mon08/31/21 at 1011, Cath (Intra-Procedure), Routine 08 (Given - Provider: Soraya Martinez MD) midazolam (pf) (Versed) (1 mg/mL) multi-dose injection (CANCELED) ONCE PRN, Starting on Mon08/31/21 at 0846, Until Mon08/31/21 at 1011, Cath (Intra-Procedure), Routine 0846 (Given - Provider: Susanna Jimenez RN) nitroGLYcerin (Nitrostat) disintegrating tablet 0.4 mg 0.4 mg, Sublingual, EVERY 5 MIN PRN, Starting on Mon08/30/21 at 0050, Until Mon09/01/21 at 1446, Chest pain, May repeat every 5 minutes for a total of three doses. Notify provider if chest pain not relieved with nitroglycerin. Do not administer nitroglycerin if the patient has received or taken phosphodiesterase (PDE-5) inhibitors such as sildenafil, tadalafil or vardenafil within the last 24 to 72 hours., Routine 08 (APR Hold - Provider: Admin Adt - Reason: Transfer to a Procedural area)1101 (APR Unhold - Provider: Admin Adt) nitroGLYcerin 100 mcg/mL intracoronary dilution (CANCELED) ONCE PRN, Starting on Mon08/31/21 at 0906, Until Mon08/31/21 at 1011, Cath (Intra-Procedure), Routine 09 (Given - Provider: Jonnathan Kelley MD)09 (Given - Provider: Jonnathan Kelley MD) perflutren protein-A microsphers (Optison) (0.22 mg/mL) injection 0.6 mL (COMPLETED) 0.6 mL, Intravenous, ONCE PRN, 1 dose, Starting on Mon08/30/21 at 0909, Until Mon08/30/21 at 0910, Per Protocol, Routine 0910 (Given - Provider: Samuel Cleveland) sodium chloride 0.9 % (flush) (BD PosiFlush Normal Saline 0.9) flush 5-20 mL 5-20 mL, Intravenous, EVERY 1 MIN PRN, Starting on Mon08/30/21 at 0050, Until Mon09/01/21 at 1446, flush, Flush pertains to all indwelling lines. Flush per protocol found in the job aid using the link provided on this medication record., Routine 0826 (APR Hold - Provider: Admin Adt - Reason: Transfer to a Procedural area)1101 (APR Unhold - Provider: Admin Adt) sodium chloride 0.9% infusion (CANCELED) CONTINUOUS PRN, Starting on Mon08/31/21 at 0851, Until Mon08/31/21 at 1011, Cath (Intra-Procedure) 0851 (New Bag - Provider: Ellen Lewis RN) verapamiL (Isoptin) (2.5 mg/mL) injection (CANCELED) ONCE PRN, Starting on Mon08/31/21 at 0906, Until Mon08/31/21 at 1011, Administer over 2 Minutes, Cath (Intra-Procedure) 0906 (Given - Provider: Jonnathan Kelley MD) Linked Groups Order Group 1: POCT Fingerstick Glucose (CANCELED) Routine, EVERY 4 HOURS, First occurrence on Mon08/31/21 at 1430, Until Specified, Consider choosing EVERY 4 HOURS as frequency for: - Type 1 Diabetes - At least 24 hours after coming off an insulin drip - At least 24 hours after admission for DKA - Hypoglycemia unawareness - Patients who are otherwise unstable Select the same frequency for the correction bolus insulin order And insulin lispro (HumaLOG;Admelog) (100 unit/mL) subcutaneous injection vial 1-10 UnitsJump to med 1-10 Units, Subcutaneous, EVERY 4 HOURS SCHEDULED, First dose on Mon08/31/21 at 1600, Until Discontinued, CORRECTION BOLUS Custom correction factor 10-20 BG 140 - 160 Give 1 units BG 161 - 180 Give 2 units BG 181 - 200 Give 4 units BG 201 - 220 Give 6 units BG 221 - 240 Give 8 units BG greater than 240, give 10 units and recheck BG in 2 hours. If BG remains GREATER THAN 240, GIVE 10??units (no more than two??times) &??call for new basal insulin orders. If less than 240 after two hours, give no insulin and resume prior schedule, Routine Group 2: POCT Fingerstick Glucose (CANCELED) Routine, 4 TIMES DAILY BEFORE MEALS & AT BEDTIME, First occurrence on Mon08/30/21 at 2200, Until Specified, Consider choosing FOUR TIMES A DAY BEFORE MEALS AND AT BEDTIME as frequency for: Patients who have a good hypoglycemia awareness: -Patients who are eating meals during the day and sleeping at night -Patient who are otherwise stable And insulin lispro (HumaLOG;Admelog) (100 unit/mL) subcutaneous injection vial 1-6 Units (CANCELED)Jump to med 1-6 Units, Subcutaneous, 4 TIMES DAILY BEFORE MEALS & NIGHTLY, First dose (after last modification) on Mon08/30/21 at 2130, Until Discontinued, CORRECTION BOLUS [1-6 Units] Moderate [...] - If recheck BG is GREATER than 240, give 6 units and repeat BG in 2 hours (no more than 3 times) & call for new insulin orders. DO NOT hold if NPO, unless specifically directed to do so by written order. Per Blood Glucose Monitoring Policy, re-check a BG of > 240 mg/dL in 2 hours., Routine Group 3: POCT Fingerstick Glucose (CANCELED) Routine, 4 TIMES DAILY BEFORE MEALS & AT BEDTIME, First occurrence on Mon08/30/21 at 0700, Until Specified, Consider choosing FOUR TIMES A DAY BEFORE MEALS AND AT BEDTIME as frequency for: Patients who have a good hypoglycemia awareness: -Patients who are eating meals during the day and sleeping at night -Patient who are otherwise stable And insulin lispro (HumaLOG;Admelog) (100 unit/mL) subcutaneous injection vial 2-12 Units (CANCELED)Jump to med 2-12 Units, Subcutaneous, 3 TIMES DAILY BEFORE MEALS, First dose on Mon08/30/21 at 0730, Until Discontinued, CORRECTION BOLUS [2-12 Units] Resistant Sliding Scale (BG in mg/dL): Correction Factor 10 (1 unit of insulin is expected to drop the glucose 10 mg/dL) BG 140 - 160 Give 2 units BG 161 - 180 Give 4 units BG 181 - 200 Give 6 units BG 201 - 220 Give 8 units BG 221 - 240 Give 10 units BG greater than 240, give 12 units and recheck BG in 2 hours. - If recheck BG is LESS than 240, give no insulin and resume schedule. - If recheck BG is GREATER than 240, give 12 units and repeat BG in 2 hours (no more than 3 times) & call for new insulin orders. DO NOT hold if NPO, unless specifically directed to do so by written order. Per Blood Glucose Monitoring Policy, re-check a BG of > 240 mg/dL in 2 hours, Routine Group 4: POCT Fingerstick Glucose (CANCELED) Routine, 4 TIMES DAILY BEFORE MEALS & AT BEDTIME, First occurrence on Mon08/31/21 at 0700, Until Specified, Consider choosing FOUR TIMES A DAY BEFORE MEALS AND AT BEDTIME as frequency for: Patients who have good hypoglycemia awareness: -Patients who are eating meals during the day and sleeping at night -Patient who are otherwise stable And insulin lispro (HumaLOG;Admelog) (100 unit/mL) subcutaneous injection vial 5 Units (COMPLETED)Jump to med 5 Units, Subcutaneous, ONCE, 1 dose, On Mon08/31/21 at 0515, Routine Group 5: heparin (porcine) 50 units/mL in sodium chloride 0.45% 500 mL infusion (CANCELED)Jump to med 0-5,000 Units/hr (0-100 mL/hr), Intravenous, CONTINUOUS, Starting on Mon08/30/21 at 0000, Until Mon08/31/21 at 1142, Begin infusion at 1,000 units per hr (12 units/kg/hr). Maximum initial infusion rate is 1,000 units/hr. Infusion doses are rounded to the nearest 50 units. Target Heparin UFH Level (anti-Xa activity) = 0.3 - 0.7 international unit/mL Start adjustment schedule 6 hours after starting infusion. If Heparin UFH Level is: - Less than 0.1 international unit/mL: Administer PRN bolus and increase rate by 350 units per hr (4 units/kg/hr) - 0.1 - 0.19 international unit/mL: Administer PRN bolus and increase rate by 150 units per hr (2 units/kg/hr) - 0.2 - 0.29 international unit/mL: NO BOLUS and increase rate by 150 units per hr (2 units/kg/hr) - 0.3 - 0.7 international unit/mL: No change - 0.71 - 0.79 international unit/mL: NO BOLUS and decrease rate by 100 units per hr (1 units/kg/hr) - 0.8 - 0.99 international unit/mL: NO BOLUS and decrease rate by 150 units per hr (2 units/kg/hr) - Greater than or equal to 1.00 international unit/mL: Hold infusion for 60 minutes then decrease rate by 250 units per hour (3 units/kg/hr) Repeat Heparin UFH Level 6 hours after initiating heparin. Then 6 hours after each dose adjustment. When 2 consecutive Heparin UFH Level within target range of 0.3 - 0.7 international unit/mL, change Heparin UFH Level to once every 24 hours with A.M. labs while on heparin. RN to order required Heparin UFH Level - Per Protocol, Routine And heparin (porcine) (1,000 units/mL) injection 0-4,000 Units (CANCELED)Jump to med 0-4,000 Units, Intravenous, BOLUS PER HEPARIN PROTOCOL, Starting on 08/29/21 at 2304, Until Tu08/31/21 at 1142, Per Protocol, START ADJUSTMENT SCHEDULE 6 HOURS AFTER STARTING INFUSION Bolus doses are rounded to the nearest 100 units. If Heparin UFH Level is: - Less than 0.1 international unit/mL: Bolus 60 units/kg (Maximum of 4,000 units) = Bolus 4,000 units - 0.1 - 0.19 International unit/mL: Bolus 30 units/kg (Maximum of 2,000 units) = Bolus 2,000 units - Equal to or greater than 0.2 international unit/mL: No Bolus, Routine Group 6: glucose (Glutose) 40% oral geLJump to med 15-30 g of glucose, Buccal, EVERY 30 MIN PRN, Starting on Mon08/30/21 at 0050, Until Mon09/01/21 at 1446, Low blood sugar, For BG 50-70 mg/dL: Oral treatment preferred: If able to drink, give 120 mL Juice or Regular (not diet) soda OR If NPO, give 15 gram glucose 40% oral gel massaged into buccal mucosa OR if unconscious or uncooperative, give 25 gram (250 mL) Dextrose 10% IV over 15 minutes per protocol OR, if no IV access, 1 mg Glucagon IM. For BG less than 50 mg/dL: Oral treatment preferred: If able to drink, give 240 mL Juice or Regular (not diet) soda OR If NPO, give 30 gram glucose 40% oral gel massaged in buccal mucosa OR if unconscious or uncooperative, give 25 gram (250 mL) Dextrose 10% IV over 15 minutes per protocol OR, if no IV access, 1 mg Glucagon IM. Recheck BG in 30 minutes. May repeat juice/soda, gel, dextrose or glucagon once per episode. For persistent hypoglycemia, consider longer-acting treatment for the duration of the active insulin. 1 tube of Glutose-15 contains 15 grams of glucose (net weight of tube = 37.5 grams.), Routine Or dextrose 10% infusionJump to med 250 mL, at 1,000 mL/hr, Intravenous, EVERY 30 MIN PRN, Starting on Mon08/30/21 at 0050, Until Mon09/01/21 at 1446, For BG 50-70 mg/dL: Oral treatment preferred: If able to drink, give 120 mL Juice or Regular (not diet) soda OR If NPO, give 15 gram glucose 40% oral gel massaged into buccal mucosa OR if unconscious or uncooperative, give 25 gram (250 mL) Dextrose 10% IV over 15 minutes per protocol OR, if no IV access, 1 mg Glucagon IM. For BG less than 50 mg/dL: Oral treatment preferred: If able to drink, give 240 mL Juice or Regular (not diet) soda OR If NPO, give 30 gram glucose 40% oral gel massaged in buccal mucosa OR if unconscious or uncooperative, give 25 gram (250 mL) Dextrose 10% IV over 15 minutes per protocol OR, if no IV access, 1 mg Glucagon IM. Recheck BG in 30 minutes. May repeat juice/soda, gel, dextrose or glucagon once per episode. For persistent hypoglycemia, consider longer-acting treatment for the duration of the active insulin. Or glucagon (Glucagen) (1 mg/mL) injection solution 1 mgJump to med 1 mg, Intramuscular, EVERY 30 MIN PRN, Starting on Mon08/30/21 at 0050, Until Mon09/01/21 at 1446, Low blood sugar, For BG 50-70 mg/dL: Oral treatment preferred: If able to drink, give 120 mL Juice or Regular (not diet) soda OR If NPO, give 15 gram glucose 40% oral gel massaged into buccal mucosa OR if unconscious or uncooperative, give 25 gram (250 mL) Dextrose 10% IV over 15 minutes per protocol OR, if no IV access, 1 mg Glucagon IM. For BG less than 50 mg/dL: Oral treatment preferred: If able to drink, give 240 mL Juice or Regular (not diet) soda OR If NPO, give 30 gram glucose 40% oral gel massaged in buccal mucosa OR if unconscious or uncooperative, give 25 gram (250 mL) Dextrose 10% IV over 15 minutes per protocol OR, if no IV access, 1 mg Glucagon IM. Recheck BG in 30 minutes. May repeat juice/soda, gel, dextrose or glucagon once per episode. For persistent hypoglycemia, consider longer-acting treatment for the duration of the active insulin., Routine documented in this encounter Care Teams Certified Residential Medication Aide Relationship Specialty Start Date End Date Haylee Baptiste MD [address] [place] [address] PCP - General 01/21/10 documented as of this encounter
--- OUTSIDE RECORDS SUMMARY | 2023-12-15 12:39 | XMS_ITS | Encounter Summary ---
[place] [address] Care Team Providers Care Spark Tester Name Role Phone Haylee Baptiste MD Primary Care Provider [phone] Reason for Visit * Reason Comments Diabetes Encounter Details Date Type Department Care Team (Latest Contact Info) Description 09/02/2021 11:00 AM EDT TH Visit (TeleHealth) [place] [address] Tom Anna, DO [facility] [place] [address] Type 2 diabetes mellitus with hyperglycemia, with [...] on file documented as of this encounter Patient Instructions * Patient Instructions* Tom Anna, - 09/02/2021 11:00 AM EDT Plan: 1. Will Start with U-500 20 units bid ac. Patient advised to check BG at home tid ac/hs, and to call the office for dose adjustments if BG < 80 or > 250 persistently for dose adjustments 2. Given lower dose insulin requirements, patient likely does not need U-500 at this point, we willcontinue to adjust insulin dose with U-500 for now as patient does not have other insulin at home and has U-500 she can use. Likely would benefit with basal + bolus regimen or even possibly basal + GLP-1 3. Continue Trulicity 1.5mg weekly, will increase dose when appropriate (after approximately 2-6 more doses of 1.5mg trulicity) 4. Blood glucose monitoring - continue BG tid ac & hs, has len, invited patient to upload data on Weimob 5. Diet - low fat/low carb diet 6. Exercise - weight-bearing exercise 30 min/day, as tolerated, however patient is post NSTEMI so unlikely will be able to do at this moment documented in this encounter Progress Notes * Tom Anna DO - 09/02/2021 11:00 AM EDT Endocrine Outpatient Visit Date of Consultation: 09/02/2021 Consult Requested by: Patient Reason for Consultation: Nallely Velazquez is a 66 y.o. female with PMH significant for NSTEMI s/p PCI 08/2021, h/o CVA, HTN, Insulin Dependent T2DM, Fibromyalgia, CKD, cervical radiculopathy/spinal cord compression who was admitted on 08/29/2021 who is coming to the endocrine clinic for further m anagement of T2DM. Diabetes History: Nallely Velazquez has [...] not have any relation to her meals. Diagnosed with T2DM at the age of 46 Diabetes provider: Dr. Clay Epperson Current home regimen: U-500 30 units tid ac, trulicity 1.5mg q week BG Monitoring: freestyle len, usually checks 5-6 times a day Most recent HgA1C on 08/30/21 was 9.2% Typical Diet: 3 meals and 1-2 snacks a day Breakfast- bowl of oatmeal Lunch- chicken, lemon, green beans Supper- cucumbers Typical exercise regimen: limited Trouble with hypoglycemia: lowest 60s, 70s, 80s Hypoglycemia unawareness: can feel hypoglycemic in 70s-80s Family h/o DM: Mother and father both T2DM Injection site: abdomen Recent admission with DKA: no Diabetes Complications Status: Eyes: no diabetic retinopathy per patient and previous visits with opthalmologist Kidneys: patient has stage II-III CKD Feet: no known neuropathy per patient Cardiac: h/o NSTEMI s/p PCI Prevention: last eye exam: no diabetic retinopathy last microalbumin : unknown last Cr: 1.07 last lipid panel: 08/30/21 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 CAD (coronary artery disease) ??? Cervical radiculopathy at C7 ??? CKD (chronic kidney disease) stage 3, GFR 30-59 ml/min ??? Diabetes mellitus ??? GERD (gastroesophageal reflux disease) ??? Hiatal hernia ??? HLD (hyperlipidemia) ??? Hypertension Current Diabetes Medications: U-500 10 units q am, 5 units q noon, 10 units qpm Allergy: Allergies Allergen Reactions ??? Iodine And [...] Diabetes Father ??? Cancer Neg Hx Vitals There were no vitals taken for this visit. Physical Exam: Exam limited as patient was called for telephone visit. Gen: NAD, talking in clear sentences HEENT: no dysphonia. Lungs: speaking in full sentences, does not sound in respiratory distress Assessment: Mr. CAMMY Galan is a 66 y.o. years old female with PMH significant for DM (Last A1C of 9.2) is here for further management of type 2 DM. # Poorly controlled 2 DM with complications (CAD) Patient was recently hospitalized for NSTEMI, and is being seen for hospital discharge follow up. Prior to coming into the hospital, the patient was on 30 units of U-500 three times a day. While in the hospital, patient received 150mg prednisone, and during hospitalization required around 40 units of lantus with 1:5 mealtime lispro. She was discharged on a regimen of 10 units q am, 5 units q lunch, and 10 units qpm for her dinner regimen. Patient states that since being discharged her BG was > 300 the night of 09/01, and 114 the morning of 09/02. She states that she took her trulicity dose of 1.5mg yesterday at home. Given unclear baseline requirements and low am BG despite no pm lantus, will be cautious with increasing patient back to her home doses of insulin. Plan: 1. Will Start with U-500 20 units bid ac. Patient advised to check BG at home tid ac/hs, and to call the office for dose adjustments if BG < 80 or > 250 persistently for dose adjustments 2. Given lower dose insulin requirements, patient likely does not need U-500 at this point, we willcontinue to adjust insulin dose with U-500 for now as patient does not have other insulin at home and has U-500 she can use. Likely would benefit with basal + bolus regimen or even possibly basal + GLP-1 3. Continue Trulicity 1.5mg weekly, will increase dose when appropriate (after approximately 2-6 more doses of 1.5mg trulicity) 4. Blood glucose monitoring - continue BG tid ac & hs, has len, invited patient to upload data on Weimob 5. Diet - low fat/low carb diet 6. Exercise - weight-bearing exercise 30 min/day, as tolerated, however patient is post NSTEMI so unlikely will be able to do at this moment We have reviewed our plan outlined as [...] us to provide care for this patient. Discussed with Dr. Daniel Anna PGY4, Endocrinology Fellow Patient verbally consents to this telehealth visit and understands that this visit may be billed, similar to a clinic office visit. I provided care to the patient today via telephone call. The total time associated with this visit,chart review, documentation, and coordination of care was 30 minutes. Called patient today (09/03/21) to see how adjustments in her blood glucose levels were in light of the adjustments that we made to her blood glucose. She uses a U-500 pen for her insulin. Patient took 10 units of insulin U-500 yesterday AM (09/02), and 20 units of insulin U-500 yesterday pm. Her BG at lunch yesterday was in the 190s per patient, at dinner was 180 yesterday, and this morning was 89. Given these findings, we decided to change her regimen from 20 units of U-500 bid to 15 units of U-500 bid ac. Advised patient she could make small 2-5 unit dose adjustments on her insulin for target blood glucose between 110-150: adjusting her am insulin dose by her pm blood glucose, and adjusting her pm insulin dose by her am blood glucose. She will follow up with me in the outpatient clinic in October. * Mitzy Sanchez MD - 09/02/2021 11:00 AM EDT I have reviewed Dr. Tom Anna's above history and I agree with the details as written. The assessment and plan were formulated in discussion with me and I agree with them as documented. Mitzy Sanchez MD, PhD, FACP, FACE documented in this encounter Plan of Treatment Upcoming Encounters Date Type Department Care Team (Late st Contact Info) Description 01/09/2024 2:20 PM EST TH Visit (TeleHealth) Hematology and Oncology at [place] [phone] Kati Burnette MD [facility] [place] [address] 01/24/2024 9:30 AM EST Appointment XRay at [address] [place] [phone] Jimmy Swann MD [facility] [place] [address] 01/24/2024 11:00 AM EST Office Visit Pain and Spine Center at [place] [address] Regulo Wang PA [facility] [place] [address] 01/24/2024 2:45 PM EST Appointment Mammography at [place] [phone] 01/24/2024 3:45 PM EST Office Visit General Surgery at [place] [phone] Caitlyn Hirsch MD [facility] [place] [address] 03/20/2024 9:00 AM EST Office Visit Hematology [place] [address] Ericka Forrest, [facility] DR HEMATOLOGY [place] [address] 07/29/2024 2:00 PM EDT Office Visit Radiation Oncology at [address] [phone] Kasie Marte MD [facility] [place] [address] documented as of this encounter Visit Diagnoses Diagnosis Type 2 diabetes mellitus with hyperglycemia, with long-term current use of insulin documented in this encounter Care Teams Spark Tester Relationship Specialty Start Date End Date Haylee Baptiste MD [address] [place] [address] PCP - General 01/21/10 documented as of this encounter
--- OUTSIDE RECORDS SUMMARY | 2023-12-15 12:39 | XMS_ITS | Encounter Summary ---
Author Organization [place] [id number] Care Team Providers Care Sciences Dean Name Role Phone Haylee Baptiste MD Primary Care Provider [phone] Reason for Referral * Consultation (Routine) - Closed Specialty Diagnoses / Procedures Referred By Mike jalloh Referred To Contact Endocrinology Diagnoses Type 2 diabetes mellitus with other specified complication, unspecified whether senior living insulin use Haylee Baptiste MD [address] [place] [address] [facility] [address] [place] [phone] Referral ID Status Reason Start Date Expiration Date V isits Requested Visits Authorized [id number] Closed Consult, Test & Treat PCP Updated and/or Approved 07/23/2021 07/23/2022 6 6 Encounter Details Date Type Department Care Team (Latest Contact Info) Description 07/23/2021 Transcribe Orders eDH Incoming Referrals [phone] Haylee Baptiste MD [address] [place], [place] [id number] Type 2 diabetes mellitus with other specified complication, unspecified whether senior living insulin use Social History Tobacco Use Types Packs/Day Years [...] TH Visit (TeleHealth) Hematology and Oncology at [place] [phone] Kati Burnette MD [facility] DR [place] [address] 01/24/2024 9:30 AM EST Appointment XRay at [address] Page [phone] Jimmy Swann MD [facility] [place] [address] 01/24/2024 11:00 AM EST Office Visit Pain and Spine Center at [place] [address] Regulo Wang PA [facility] [place] [address] 01/24/2024 2:45 PM EST Appointment Mammography at [place] [address] 01/24/2024 3:45 PM EST Office Visit General Surgery at [place] [phone] Caitlyn Hirsch MD [facility] [place] [address] 03/20/2024 9:00 AM EST Office Visit Hematology and Oncology at [place] [phone] Ericka Forrest, [facility] [address] [place] [address] 07/29/2024 2:00 PM EDT Office Visit Radiation Oncology at [address] [phone] Kasie Marte MD [facility] [place] [address] Scheduled Referrals Name Type Priority Associated Diagnoses Order Schedule Referral to Endocrinology Outpatient Referral Routine Type 2 diabetes mellitus with other specified complication, unspecified whether senior living insulin use Ordered: 07/23/2021 documented as of this encounter Visit Diagnoses Diagnosis Type 2 diabetes mellitus with other specified complication, unspecified whether lobsterman insulin use documented in this encounter Care Teams Sciences Dean Relationship Specialty Start Date End Date Haylee Baptiste MD [address] [place] [address] PCP - General 01/21/10 documented as of this encounter
--- OUTSIDE RECORDS SUMMARY | 2023-12-15 12:39 | XMS_ITS | Encounter Summary ---
[facility] Address [facility] [place] [address] Care Team Providers Care Ampoule Examiner Name Role Phone Haylee Baptiste MD Primary Care Provider [phone] Reason for Visit * Reason Onset Date Comments Appointment 05/14/2021 Encounter Details Date Type Department Care Team (Late st Contact Info) Description 05/14/2021 Telephone Neurology at [facility] [place] [address] Cody Staton MD [facility] [place] [address] Appointment Social History Tobacco Use Types Packs/Day [...] * Telephone Encounter - Carey Long - 05/14/2021 9:03 AM EDT Scheduling Instructions Provider: Dr Staton Visit Type (paste AMILCAR Instructions or manually enter): Return in about 4 weeks (around 06/10/2021) for Telehealth If EMG Visit needed list diagnosis for the EMG to be used in Decision Tree: Appt Note: Please arrange MRI C spine and MRA Additional Info Needed: documented in this encounter Plan of Treatment Upcoming Encounters Date Type Department Care Team (Late st Contact Info) Description 01/09/2024 2:20 PM EST TH Visit (TeleHealth) Hematology and Oncology at [place] [phone] Kati Burnette MD [facility] DR HEMATOLOGY [place] [address] 01/24/2024 9:30 AM EST Appointment XRay [place] [address] [place] [address] Jimmy Swann MD [facility] [place] [address] 01/24/2024 11:00 AM EST Office Visit Pain and Spine Center at [place] [address] Reuglo Wang PA [facility] [place] [address] 01/24/2024 2:45 PM EST Appointment [place] [address] 01/24/2024 3:45 PM EST Office Visit General Surgery at [place] [address] Caitlyn Hirsch MD [facility] [place] [address] 03/20/2024 9:00 AM EST Office Visit Hematology and Oncology at [place] [phone] Ericka Forrest, [facility] DR HEMATOLOGY [place] [address] 07/29/2024 2:00 PM EDT Office Visit Radiation Oncology at [address] [phone] Kasie Marte MD [facility] [place] [address] documented as of this encounter Visit Diagnoses Not on filedocumented in this encounter Care Teams Ampoule Examiner Relationship Specialty Start Date End Date Haylee Baptiste MD [address] [place] [address] PCP - General 01/21/10 documented as of this encounter
--- OUTSIDE RECORDS SUMMARY | 2023-12-15 12:39 | XMS_ITS | Encounter Summary ---
Author Organization [facility] Address [facility] [place] [address] Care Team Providers Care Replenishment Buyer Name Role Phone Haylee Baptiste MD Primary Care Provider Encounter Details Date Type Department Care Team (Late st Contact Info) Description 08/29/2021 External Results [place] [address] Social History Tobacco Use Types Packs/Day Years [...] TH Visit (TeleHealth) H[place]ology [place] [address] Kati Burnette MD [facility] [place] [address] 01/24/2024 9:30 AM EST Appointment XRay at [address] [place] [phone] Jimmy Swann MD [facility] [place] [address] 01/24/2024 11:00 AM EST Office Visit Pain and Spine Center at [place] [address] Regulo Wang PA [facility] [place] [place] [address] 01/24/2024 2:45 PM EST Appointment Mammography at [place] [address] 01/24/2024 3:45 PM EST Office Visit General Surgery at [place] [address] Caitlyn Hirsch MD [facility] [place] [place] [address] 03/20/2024 9:00 AM EST Office Visit Hematology and Oncology at [place] [address] Ericka Forrest, [facility] [address] [place] [address] 07/29/2024 2:00 PM EDT Office Visit Radiation Oncology at [address] [phone] Kasie Marte MD [facility] [place] [address] documented as of this encounter Procedures Procedure Name Priority Date/Time Associated Diagnosis Comments ECG SCAN Routine 08/29/2021 documented in this encounter Results * Scan Doc: ECG (08/29/2021) Historical Provider MD NAVARRO MGR SCAN EX T ORDR/RSLT documented in this encounter Visit Diagnoses Not on filedocumented in this encounter Care Teams Replenishment Buyer Relationship Specialty Start Date End Date Haylee Baptiste MD [address] [place] [address] PCP - General 01/21/10 documented as of this encounter
--- OUTSIDE RECORDS SUMMARY | 2023-12-15 12:39 | XMS_ITS | Encounter Summary ---
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 Name Role Phone Haylee Baptiste MD Primary Care Provider [phone] Reason for Visit * Auth/Cert Specialty Diagnoses / Procedures Referred By iMke jalloh Referred To Contact Diagnoses NSTEMI (non-ST elevated myocardial infarction) Chest Pain Procedures Emergency IPI Mary Ferguson MD [facility] [place] [address] [facility] Referral ID Status Reason Start Date Expiration Date Visits Re quested Visits Authorized [id number] 1 1 Encounter Details Date Type Department Care Team (Late st Contact Info) Description 08/31/2021 8:20 AM EDT - 08/31/2021 9:20 AM EDT Surgery [facility] [place] [address] Jonnathan Nielsen MD [facility] [address] CARDIAC CATHETERIZATION Social History Tobacco Use Types Packs/Day Years [...] Sign Reading Time Taken Comments Blood Pressure 148/67 08/31/2021 7:10 AM EDT Pulse 77 08/31/2021 8:40 AM EDT Temperature 36.4 ??C (97.5 ??F) 08/31/2021 7:10 AM ED T Respiratory Rate 16 08/31/2021 7:10 AM EDT Oxygen Saturation 98% 08/31/2021 7:10 AM EDT Inhaled Oxygen Concentration - - Weight 83.6 kg (184 lb 4.9 oz) 08/31/2021 5:03 A M EDT Height 157.5 cm (5' 2) 08/29/2021 10:39 PM EDT Body Mass Index 33.71 08/29/2021 10:39 PM EDT documented in this encounter Discharge Summaries * Mary Ferguson MD - 09/01/2021 10:56 AM EDT Images from the original note were not included. Discharge Summary Patient Name: Gabriel Velazquez Patient Age: 66 y.o. Language: Cuban Race: White Ethnicity: Not nor Admit date: [...] a new patient of Dr. Cadena at [facility] Access site is right radial [...] restarted. Inpatient Provider Contact Information: MD Annalisa Ambrocio, DERRICK Newman, PA-C [phone] Discharge Diagnoses (Hospital Problems) and Secondary Diagnoses (Chronic Problems): Active Hospital Problems Diagnosis ??? NSTEMI (non-ST elevated myocardial infarction) Resolved Hospital Problems No resolved problems to display. Active Non-Hospital Problems Diagnosis ??? Closed fracture of left wrist ??? Left hand pain ??? Achilles tendon tear, left ??? Type 2 diabetes mellitus with hyperglycemia, with long-term current use of insulin ??? Hypertension ??? jail current use of antithrombotics/antiplatelets ??? Prinzmetal angina Operations/Major Procedures: Operations: Procedure(s): CARDIAC CATHETERIZATION 08/31/21 Dual Antiplatelet (DAPT) Recommendations: Drug eluting stent (VINCENZO) inserted. Patient was on chronic DAPT on arrival to the brick and blocker aid labor. Recommended anti-platelet/anti-thrombotic regimen: Start aspirin 81 mg daily now and continue for indefinitely. Start clopidogrel 75 mg daily now and continue for 12 months then stop. These recommendations are made at the time of the intervention. Patient and provider preferences or a changing clinical situation may require modification of this regimen. Consult [facility] [place] Interventional Cardiology for questions. The 1 year [...] As compared to an outside echo report ([facility] Nov 05, 2013), there is no significant change. History of Presentation: Gabriel Velazquez is a 66 y.o. female with PMH of non obstructive CAD in 2014, ? Remote hx of CVA, HTN, IDDM, HLD, fibromyalgia, CKD, cervical radiculopathy/spinal cord compression who presented to [facility] with chest pain. ?? Pt [...] previous similar episodes. 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 The patient went to the cardiac brick and blocker aid labor for a diagnostic cath which showed a [...] appointments: During 8am-5pm Monday through Monday call [phone] to speak with a nurse in the cardiology clinic All other times call [phone] and ask to speak to the medical service representative slot machine floor person. Return to work: One week, work note provided Driving: No driving for 48 hours after catheterization. Follow up Appointments: PCP Carey Saravia APRN [phone] September 06, 2021 at 3:[address] Cadena at [facility] You will be called with this [...] and safety. ?? Contact PCP or current furniture assembler if consistently BS < 70, > 300. ?? Drink PLENTY of water and stay hydrated! 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 Future Appointments and Orders Future Appointments and Orders Future Appointments Provider Department Dept Phone 09/13/2021 3:00 PM Jimmy Swann MD Pain and Spine Center at [facility] [place] Arrive at: Fresh Work Inspector Area 3D [phone] 09/30/2021 8:30 AM Cody Staton MD Neurology at [facility] [place] Arrive at: Fresh Work Inspector Area 3C [phone] 10/13/2021 9:00 AM Tom Anna DO Endocrinology at [facility] [place] Arrive at: Fresh Work Inspector Area 3A [phone] Future Orders Complete By Expires Referral to Cardiac Rehab [[id number] Custom] As directed Process Instructions: If no progress note charted, please enter Clinical details in comments. Scheduling Instructions: Questions: My question or request is: NSTEMI. Cardiac rehab at [facility]. Discharge References/Attachments None Annalisa Montanez APRN 09/01/2021 documented in this encounter Discharge Instructions * Discharge Instructions* Annalisa Montanez, DERRICK - 08/31/2021 2:14 PM EDT Call your doctor if: Chest pain, shortness of breath, pain or swelling in legs occurs. If you have non-emergent questions between now and the time of your follow up appointments: During 8am-5pm Monday through Monday call [phone] to speak with a nurse in the cardiology clinic All other times call [phone] and ask to speak to the medical service representative slot machine floor person. Return to work: One week, work note provided Driving: No driving for 48 hours after catheterization. Follow up Appointments: PCP Carey Saravia APRN [phone] September 06, 2021 at 3:[address] Cadena at [facility] You will be called with this [...] collection and safety. Contact PCP or current furniture assembler if consistently BS < 70, > 300. [...] needed. 09/11/2020 fluticasone propionate (Flonase) 50 mcg/actuation [place], Suspension 1 spray by Each Nare route [...] Service Attending? Patient Name: Gabriel Velazquez Service: ENGINEERING ASSISTANT / PA Responsible Attending: Mary Ferguson MD Reason for continued hospitalization: NSTEMI Post cardiac cath, with LAD stenting Home today Active Problems: Active Hospital Problems Diagnosis ??? NSTEMI (non-ST elevated myocardial infarction) Resolved Hospital Problems No resolved problems to display. Interval History: Gabriel Drew Selam Caroline did well overnight without chest pain or [...] As compared to an outside echo report ([facility] Nov 05, 2013), there is [...] and no WMAs. Patient went to the [facility] today and was found to have a [...] Discussed with MD Annalisa Ambrocio APRN Pager [phone] 09/01/2021 * Cristela Zamarripa APRN - 09/01/2021 9:29 AM EDTSummary: Had a lot of insulin yesterday and lots of prednisone as well...... Images from the original note were not included. . Follow Up Diabetes Consult Patient Interview She is set to see [facility] [place] endocrine in oct. It appears based on [...] and safety. ?? Contact PCP or current furniture assembler if consistently BS < 70, > 300. [...] history of non-obstructive CAD (cardiac catheterization in 2015), stroke, diabetes. She presents now with chest [...] stent. ?? Mary Ferguson MD, Ladi, FACC, [facility] Cardiology Service Attending ?? Patient Name: Gabriel Velazquez Service: ENGINEERING ASSISTANT / PA Responsible Attending: Mary Ferguson MD Reason for continued hospitalization: NSTEMI Post cardiac cath, with LAD stenting Active Problems: Active Hospital Problems Diagnosis ??? NSTEMI (non-ST elevated myocardial infarction) Resolved Hospital Problems No resolved problems to display. Interval History: Gabriel Velazquez went to the [facility] this morning and received a long LAD [...] Behavior: Behavior normal. Lab Comments: Recent Labs 08/31/2142208/30/21 0550 08/29/21 2334 WBC 7.8 7.6 10.4* HGB 14.3 13.0 12.8 HCT 42.6 39.8 39.8 PLATELET 255 252 262 No results for input(s): INR in the last 168 hours. Recent Labs 08/31/2142208/30/21 0550 08/29/21 2334 NA 133* 134* 135 [...] As compared to an outside echo report ([facility] Nov 05, 2013), there is [...] and no WMAs. Patient went to the [facility] today and was found to have a [...] Discussed with MD Annalisa Ambrocio APRN Pager [phone] 08/31/2021 * Mitzy Sanchez MD - 08/31/2021 9:59 AM EDT Follow Up Diabetes Consult Patient Interview Patient in brick and blocker aid labor, 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 [...] 0714 08/31/21 0407 08/31/21 0226 08/30/21 2328 08/30/21 2022 08/30/21 1603 08/30/21 1134 08/30/21 0723 08/30/21 0140 [...] were modified for team. Tom Anna DO [facility] [place] Endocrinology Endocrinology Fellow, PGY-4 Plan discussed with [...] cardiac catheterization Mary Ferguson MD, Ladi, FACC, FNSD Cardiology Service Attending Patient Name: Gabriel Velazquez Service: ENGINEERING ASSISTANT / PA Responsible Attending: Mary Ferguson MD [...] Infusions: ??? heparin (porcine) infusion 1,000 Units/hr (08/29/212314) ??? nitroGLYcerin 15 mcg/min (08/29/212307) PRN Meds:sodium chloride 0.9 % (flush), lidocaine, [...] As compared to an outside echo report ([facility] Nov 05, 2013), there is [...] anticipated contrast load NPO since midnight for [facility] today Insulin-dependent DMII Takes U500 at [...] Presenting Diagnosis/Chief Complaint: NSTEMI/Chest pain. Transferred from [facility] for further management. History of Present Illness: Gabriel Velazquez is a 66 y.o. female with PMH of non obstructive CAD in 2015, ? Remote hx of CVA, HTN, IDDM, HLD, fibromyalgia, CKD, cervical radiculopathy/spinal cord compression who presented to [facility] with chest pain. Pt reports [...] previous similar episodes. 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 Neuro/INVESTOR RELATIONS ASSOCIATE: AAO x 3, No gross motor deficits. [...] CVA, HTN, IDDM, HLD who presented to [facility] with chest pain. Pt was [...] drip Geena Epperson MD 08/30/2021 Pager # [phone] documented in this encounter Miscellaneous Notes * [...] bedside nurse, medical record, and Patient Gabriel Selam Velazquez Introduced self/reviewed role; services accepted. Reason [...] surrogate would be surrogate decision maker per [place] surrogate decision making law. (Only good for 180 days) Any patient receiving care in [place] must abide by [place] law. The hierarchy for surrogate decision making [...] (i) The agent with financial power of pan reclaim processor or a conservator appointed in accordance with [...] in the stairways.) Home Address confirmed as: [address] [place] [phone] Social & Family Supports: All names listed below confirmed with patient as current and correct Extended Emergency Contact Information Primary Emergency Contact: Loren Chou [facility] Mobile Relation: Child Secondary Emergency Contact: Gilberto Velazquez Address: [address] [place] [phone] [facility] Relation: Spouse Current Care Provided by: [...] Pending hospital course. Health/Prescription Coverage: Primary Insurance: [employer] Payor: [employer] / Plan: [employer] [place] / Product Type: *No Product type* / Secondary Insurance: N/A Secondary Insurance? (Only Medicare A&B): No ; Prescription Coverage: Yes Preferred Pharmacy: [facility] [address] [address] [place] Status: Patient is a : No Primary Care Provider: Haylee Baptiste MD [phone] Patient/Caregiver Goals of Treatment: When medically stable [...] in an outpatient cardiac rehabilitation program at [facility] was discussed. Patient agrees to a referral to this program. The referral will be sent at discharge and the patient should be contacted by the Program within 1- 2 weeks from discharge. * Brief Op Note - Jonnathan Nielsen MD - 08/31/2021 10:05 AM EDT Images from the original note were not included. Preliminary Cardiac Catheterization Procedure Note: Patient Name: Gabriel Velazquez : [id number] MR#: [id number] Case Date: 08/31/2021 Compliance Review Specialist: * Jonnathan Nielsen MD - Primary * Soraya Martinez MD - Fellow * Colin Johnson PA - Physician Entry Level Electrician Preoperative diagnosis: nstemi Postoperative diagnosis: nstemi Preliminary Cardiac Catheterization Procedure Note: Procedure(s) performed: Coronary Angiography, Left Heart Cath, PCI-Stent Baseline Frailty Assessment: Definitions from [place] Study of Health and Aging Clinical Frailty [...] Full report to follow. JONNATHAN NIELSEN MD warehouse production worker Pager [phone] * Consult Note - Mitzy [...] management and to provide a review of [facility] diabetes care. Diabetes History: Gabriel Velazquez has [...] diabetes regimen: Diabetes Provider: Scheduling appt with [facility] [place] Endocrinology in October Medications: U-500 30 units [...] recommendations pending based on the hospital course. 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 Monitoring - continue BG tid ac & hs Diet - low fat/low carb diet Exercise - weight-bearing exercise 30 min/day, as tolerated Thank you for allowing us to provide care for your patient Tom Anna DO [facility] [place] Endocrinology Endocrinology Fellow, PGY-4 Plan Discussed with [...] further details. Geena Epperson MD 08/30/2021 Pager [phone] documented in this encounter Plan of Treatment Upcoming Encounters Date Type Department Care Team (Late st Contact Info) Description 01/09/2024 2:20 PM EST TH Visit (TeleHealth) Hematology and Oncology at [place] [phone] Kati Burnette MD [facility] [address] [place] [address] 01/24/2024 9:30 AM EST Appointment XRay [place] [address] [place] [phone] Jimmy Swann MD [facility] [place] [place] [address] 01/24/2024 11:00 AM EST Office Visit Pain and Spine Center at [place] [phone] Regulo Wang PA [facility] [place] [address] 01/24/2024 2:45 PM EST Appointment Mammography at [place] [address] 01/24/2024 3:45 PM EST Office Visit General Surgery at [place] [phone] Caitlyn Hrisch MD [facility] [place] [address] 03/20/2024 9:00 AM EST Office Visit [place]ology [place] [address] Ericka Forrest, [facility] [place] [address] 07/29/2024 2:00 PM EDT Office Visit Radiation Oncology at [address] [phone] Kasie Marte MD [facility] [place] [address] Scheduled Orders Name Type Priority Associated Diagnoses [...] type, unspecified whether angina present, unspecified whether [place] or transplanted heart HC VENIPUNCTURE Routine 09/01/2021 [...] * POCT Glucose (09/01/2021 11:44 AM EDT) Glucose, POC 91 65 - 199 mg/dL [facility] Comment: Supplemental ranges: <140 mg/dL before meals <180 mg/dL all other times of the day Blood 09/01/2021 11:4 4 AM EDT 09/01/2021 11:44 AM EDT Mary Ferguson MD POINT OF CARE TEST O RDERABLES [facility] [place] [address] * POCT Glucose (09/01/2021 7:36 AM EDT) Glucose, POC 71 65 - 199 mg/dL [facility] Comment: Supplemental ranges: <140 mg/dL before meals <180 mg/dL all other times of the day Blood 09/01/2021 7:36 AM EDT 09/01/2021 7:36 AM EDT Mary Ferguson MD POINT OF CARE TEST O RDERABLES Performing Organization Address City/[facility]/ZIP Co de Phone Number [facility] [place] [address] * EKG 12 Lead (09/01/2021 6:06 AM EDT) Ventricular rate 60 BPM MUSE SYSTEM Atrial Rate 60 BPM MUSE SYSTEM P-R Interval 154 ms MUSE SYSTEM QRS Duration 86 ms MUSE SYSTEM Q-T Interval 398 ms MUSE SYSTEM QTC Calculated (Bezet) 398 ms MUSE SYSTEM Calculated P Severance 72 degrees MUSE SYSTEM Calculated R Severance 53 degrees MUSE SYSTEM Calculated T Severance 82 degrees MUSE SYSTEM INTERPRETATION Normal sinus rhythm Nonspecific T wave abnormality Abnormal ECG When compared with ECG of 31-AUG-2021 10:15, No significant change was found I personally reviewed the tracing and edited the fellows interpretation Confirmed by fellow MD Oswaldo, Uyen ([id number]) on 09/01/2021 9:33:16 PM Confirmed by MD Leonel, Hitesh ([id number]) on 09/02/2021 4:26:58 PM MUSE SYSTEM 09/01/2021 6:06 AM EDT 09/02/2021 4:26 PM EDT Mary Ferguson MD ECG ORDERABLES Performing Organization Address City/[facility]/ZIP Co de Phone Number MUSE SYSTEM * (ABNORMAL) Differential, Automated (09/01/2021 4:32 AM EDT) Neutrophil % 80.7 % [facility] Neutrophil Absolute 13.52(H) 1.70 - 6.10 x10(3)/mc L [facility] Lymph % 14.4 % [facility] Lymphocytes Abs 2.4 0.9 - 3.2 x10(3)/mc L [facility] Monocyte % 3.8 % [facility] Monocyte Abs 0.6 0.3 - 0.9 x10(3)/mc L [facility] Eos % 0.1 % [facility] Eosinophils Abs 0.0 0.0 - 0.4 x10(3)/ L [facility] Basophil % 0.2 % [facility] Baso Absolute 0.0 0.0 - 0.1 x10(3)/ L [facility] Immature Gran % 0.80 % [facility] Comment: Immature granulocytes(IG's)percentage and absolute count will include metamyelocytes, myelocytes, and promyelocytes. Blood smears from CBCs yielding IG's will be scanned manually for concordance. If this scan disagrees with the automated IG or if promyelocytes are noted, a manual differential will be performed. Immature Gran Absolute 0.13(H) 0.00 - 0.04 x10(3)/[facility] Blood 09/01/2021 4:32 AM EDT 09/01/2021 5:03 AM EDT Narrative Resulting Agency Comment Spec In Lab Geena Epperson MD HEMATOLOGY ORDERABLE S [facility] [place] [address] * (ABNORMAL) Hemogram (09/01/2021 4:32 AM EDT) White Blood Cell 16.8(H) 4.0 - 9.5 x10(3)/ L [facility] Red Blood Cell 5.13 4.00 - 5.21 x10(6)/ L [facility] Hemoglobin 14.0 11.7 - 15.5 g/dL [facility] Hematocrit 42.5 35.7 - 45.8 % [facility] Mean Cell Volume 82.8 82.6 - 94.4 fL [facility] Mean Cell Hemoglobin 27.3 27.1 - 32.0 pg [facility] Mean Cell Hemoglobin Concentration 32.9 31.7 - 35.0 g/dL [facility] Platelet 292 145 - 357 x10(3)/mc L [facility] RDW Standard Deviation 39.8 37.0 - 46.0 fL [facility] RDW coefficient of variation 13.2 11.5 - 14.1 % [facility] Mean Platelet Volume 11.0 7.6 - 12.9 fL [facility] NRBC% auto 0.0 % [facility] NRBC Absolute 0.000 0.000 - 0.000 x10(3)/mc L [facility] Blood 09/01/2021 4:32 AM EDT 09/01/2021 5:03 AM EDT Narrative Resulting Agency Comment Spec In Lab Geena Epperson MD HEMATOLOGY ORDERABLE S Performing Organization Address City/State/[facility] Co de Phone Number [facility] [place] [address] * (ABNORMAL) BMP w/fasting Glucose (09/01/2021 4:32 AM EDT) Glucose Fasting 107(H) 65 - 99 mg/dL [facility] Comment: ?Fasting* Glucose [...] of Diabetes Mellitus, Position Statement from the [place] [employer]. ??Diabetes Care, Volume 33, Supplement 1, Feb 2009 Blood Urea Nitrogen 18 8 - 18 mg/dL [facility] Creatinine 1.07 0.70 - 1.20 mg/dL [facility] Sodium 139 135 - 145 mmol/L [facility] Potassium 3.9 3.5 - 5.0 mmol/L [facility] Comment: Please note: ??Patients with WBC >100,000 may have falsely elevated Potassium levels. ??For accurate Potassium quantification in these patients send serum separator tube (gold top) for subsequent determinations. ??Contact the Clinical Chemistry Laboratory if there are any questions. Chloride 104 98 - 107 mmol/L [facility] Carbon Dioxide 23 22 - 31 mmol/L [facility] Anion Gap 12 5 - 15 mmol/L [facility] Calcium 8.7 8.5 - 10.5 mg/dL [facility] Est Glomerular Filtration Rate 57(L) >=60 mL/min/1. 73 m?? [facility] Comment: This patient's [...] In Lab Geena Epperson MD CHEMISTRY ORDERABLES [facility] [place] [address] * POCT Glucose (09/01/2021 4:04 AM EDT) Glucose, POC 107 65 - 199 mg/dL [facility] Comment: Supplemental ranges: <140 mg/dL before meals <180 mg/dL all other times of the day Blood 09/01/2021 4:04 AM EDT 09/01/2021 4:04 AM EDT Mary Ferguson MD POINT OF CARE TEST O RDERABLES Performing Organization Address [facility] Co de Phone Number [facility] [place] [address] * POCT Glucose (09/01/2021 12:19 AM EDT) Glucose, POC 129 65 - 199 mg/dL [facility] Comment: Supplemental ranges: <140 mg/dL before meals <180 mg/dL all other times of the day Blood 09/01/2021 12:1 9 AM EDT 09/01/2021 12:19 AM EDT Mary Ferguson MD POINT OF CARE TEST O RDERAROYCE Performing Organization Address [facility] Co de Phone Number [facility] [place] [address] * POCT Glucose (08/31/2021 10:38 PM EDT) Glucose, POC 125 65 - 199 mg/dL [facility] Comment: Supplemental ranges: <140 mg/dL before meals <180 mg/dL all other times of the day Blood 08/31/2021 10:3 8 PM EDT 08/31/2021 10:38 PM EDT Mary Ferguson MD POINT OF CARE TEST O RDERABLES Performing Organization Address [facility] Co de Phone Number [facility] [place] [address] * (ABNORMAL) POCT Glucose (08/31/2021 8:26 PM EDT) Glucose, POC 254(H) 65 - 199 mg/dL [facility] Comment: Supplemental ranges: <140 mg/dL before meals <180 mg/dL all other times of the day Blood 08/31/2021 8:26 PM EDT 08/31/2021 8:26 PM EDT Mary Ferguson MD POINT OF CARE TEST O RDROBERTO Performing Organization Address [facility] Center/[facility] de Phone Number [facility] [place] [address] * (ABNORMAL) POCT Glucose (08/31/2021 4:14 PM EDT) Glucose, POC 291(H) 65 - 199 mg/dL [facility] Comment: Supplemental ranges: <140 mg/dL before meals <180 mg/dL all other times of the day Blood 08/31/2021 4:14 PM EDT 08/31/2021 4:14 PM EDT Mary Ferguson MD POINT OF CARE TEST O SHERINERAROYCE Performing Organization Address [facility] de Phone Number [facility] [place] [address] * (ABNORMAL) POCT Glucose (08/31/2021 11:23 AM EDT) Glucose, POC 201(H) 65 - 199 mg/dL [facility] Comment: Supplemental ranges: <140 mg/dL before meals <180 mg/dL all other times of the day Blood 08/31/2021 11:2 3 AM EDT 08/31/2021 11:23 AM EDT Mary Ferguson MD POINT OF CARE TEST O REBEL Performing Organization Address [facility] de Phone Number [facility] [place] [address] * EKG 12 Lead (08/31/2021 10:15 AM EDT) Ventricular rate 75 BPM MUSE SYSTEM Atrial Rate 75 BPM MUSE SYSTEM P-R Interval 164 ms MUSE SYSTEM QRS Duration 82 ms MUSE SYSTEM Q-T Interval 372 ms MUSE SYSTEM QTC Calculated (Bezet) 415 ms MUSE SYSTEM Calculated P Severance 69 degrees MUSE SYSTEM Calculated R Severance 50 degrees MUSE SYSTEM Calculated T Severance 57 degrees MUSE SYSTEM INTERPRETATION Normal sinus rhythm Normal ECG When compared with ECG of 29-AUG-2021 23:25, Nonspecific ST abnormality improved in V2 Confirmed by MD Carver Danette ([id number]) on 08/31/2021 10:58:55 AM MUSE SYSTEM 08/31/2021 10:1 5 AM EDT 08/31/2021 10:58 AM EDT Geena Epperson MD ECG ORDERABLES MUSE SYSTEM * CARDIAC CATHETERIZATION (08/31/2021 10:14 AM EDT) Anatomical Region Laterality Modality Other Narrative 09/01/2021 6:31 AM EDT ?[facility] ? Cardiac Catheterization/Intervention Report ? Patient Name: Gabriel Staley. ? Procedure Date: 08/31/2021 ? A #: [id number] ? Primary Physician: Jonnathan Nielsen V ? Case #: [id number] ? File Name: [id number] ? Catheterization Order Number: [id number] ? [facility] ? Final Report [place], [place] ? Patient Name: ? Gabriel D. Ishanlk Weeks ? ID#: ?[id number] ? : ?1955 ? Procedure Date: ? August 31, 2021 ?Case #: ? [id number] ? Room: ? 1 ? Case Physician: ? Jonnathan Nielsen M.D. ? Start: ?09:04 ?Fellow: ? Soraya Martinez M.D. ? Admission: ??08/29/2021 ? Referring Physician: ??Jose Barber M.D. ? Procedures: ?* Coronary Angiography ?* Left Heart Catheterization ?* Coronary Stent Insertion ? History ?Gabriel Velazquez is a 66 year old woman. She [...] was ?designated as ASA Class III. The [facility] clinical frailty scale is 4: ?Vulnerable. ? [...] procedure was Urgent. The indication for ?the [facility] visit is ACS greater than 24 hrs. [...] flow was normal and was via the [place] vessel. ?Left Circumflex ? The left circumflex [...] ? A premounted 3.50 x 38 mm [place] (VINCENZO) was deployed ? with a maximum [...] on chronic DAPT on arrival to the [facility] and blocker aid labor. ?Recommended anti-platelet/anti-thrombotic regimen: ?Start aspirin 81 mg daily now and continue for indefinitely. ?Start clopidogrel 75 mg daily now and continue for 12 months then stop. ?These recommendations are made at the time of the intervention. Patient ?and provider preferences or a changing clinical situation may require ?modification of this regimen. Consult [facility] [place] Interventional Cardiology for ?questions. ?The 1 year [...] heart ?catheterization and stent insertion-coronary. ? Jonnathan Nielsen M.D. ? Electronically Signed by: Jonnathan Nielsen M.D. ? Report Finalized: 08/31/2021 ??19:18 ? Report Last Ammended: 09/02/2021 ??17:00 ? Jonnathan Kelley MD CARDIAC CATH ORDERAB LES * (ABNORMAL) POCT Glucose (08/31/2021 9:07 AM EDT) Glucose, POC 250(H) 65 - 199 mg/dL [facility] Comment: Supplemental ranges: <140 mg/dL before meals <180 mg/dL all other times of the day Blood 08/31/2021 9:07 AM EDT 08/31/2021 9:07 AM EDT Mary Ferguson MD POINT OF CARE TEST Maryuri LUQUE Performing Organization Address [facility] Co de Phone Number [facility] [place] [address] * (ABNORMAL) POCT Glucose (08/31/2021 7:14 AM EDT) Pathologist [facility] Glucose, POC 251(H) 65 - 199 mg/dL [facility] Comment: Supplemental ranges: <140 mg/dL before meals <180 mg/dL all other times of the day Blood 08/31/2021 7:14 AM EDT 08/31/2021 7:14 AM EDT Mary Ferguson MD POINT OF CARE TEST Maryuri LUQUE Performing Organization Address [facility] de Phone Number [facility] [place] [address] * Heparin (unfractionated) Level (08/31/2021 6:14 AM EDT) UF Heparin 0.14 IU/mL [facility] Comment: Heparin (anti-Xa) levels should be [...] Lab Geena Epperson MD HEMATOLOGY ORDERABLE S [facility] [place] [address] * (ABNORMAL) Differential, Automated (08/31/2021 4:23 AM EDT) Neutrophil % 86.1 % [facility] Neutrophil Absolute 6.73(H) 1.70 - 6.10 x10(3)/mc L [facility] Lymph % 12.2 % [facility] Lymphocytes Abs 1.0 0.9 - 3.2 x10(3)/ L [facility] Monocyte % 0.5 % [facility] Monocyte Abs 0.0(L) 0.3 - 0.9 x10(3)/mc L [facility] Eos % 0.0 % [facility] Eosinophils Abs 0.0 0.0 - 0.4 x10(3)/ L [facility] Basophil % 0.4 % [facility] Baso Absolute 0.0 0.0 - 0.1 x10(3)/mc L [facility] Immature Gran % 0.80 % [facility] Comment: Immature granulocytes(IG's)percentage and absolute count will include metamyelocytes, myelocytes, and promyelocytes. Blood smears from CBCs yielding IG's will be scanned manually for concordance. If this scan disagrees with the automated IG or if promyelocytes are noted, a manual differential will be performed. Immature Gran Absolute 0.06(H) 0.00 - 0.04 x10(3)/mc L [facility] Blood 08/31/2021 4:23 AM EDT 08/31/2021 4:47 AM EDT Narrative Resulting Agency Comment Spec In Lab Geena Epperson MD HEMATOLOGY ORDERABLE S [facility] [place] [address] * Hemogram (08/31/2021 4:23 AM EDT) White Blood Cell 7.8 4.0 - 9.5 x10(3)/[facility] Red Blood Cell 5.16 4.00 - 5.21 x10(6)/[facility] Hemoglobin 14.3 11.7 - 15.5 g/dL [facility] Hematocrit 42.6 35.7 - 45.8 % [facility] Mean Cell Volume 82.6 82.6 - 94.4 fL [facility] Mean Cell Hemoglobin 27.7 27.1 - 32.0 pg [facility] Mean Cell Hemoglobin Concentration 33.6 31.7 - 35.0 g/dL [facility] Platelet 255 145 - 357 x10(3)/[facility] RDW Standard Deviation 38.8 37.0 - 46.0 fL [facility] RDW coefficient of variation 12.8 11.5 - 14.1 % [facility] Mean Platelet Volume 10.4 7.6 - 12.9 fL [facility] NRBC% auto 0.0 % [facility] NRBC Absolute 0.000 0.000 - 0.000 x10(3)/[facility] Blood 08/31/2021 4:23 AM EDT 08/31/2021 4:47 AM EDT Narrative Resulting Agency Comment Spec In Lab Geena Epperson MD HEMATOLOGY ORDERABLE S [facility] [place] [address] * Heparin (unfractionated) Level (08/31/2021 4:23 AM EDT) UF Heparin <0.04 IU/mL [facility] Comment: Heparin (anti-Xa) levels should be [...] Lab Geena Epperson MD HEMATOLOGY ORDERABLE S [facility] [place] [id number] * (ABNORMAL) BMP w/fasting Glucose (08/31/2021 4:23 AM EDT) Glucose Fasting 289(H) 65 - 99 mg/dL [facility] Comment: ?Fasting* Glucose [...] of Diabetes Mellitus, Position Statement from the [place] [employer]. ??Diabetes Care, Volume 33, Supplement 1, Feb 2009 Blood Urea Nitrogen 16 8 - 18 mg/dL [facility] Creatinine 1.07 0.70 - 1.20 mg/dL [facility] Sodium 133(L) 135 - 145 mmol/L [facility] Potassium 4.4 3.5 - 5.0 mmol/L [facility] Comment: Please note: ??Patients with WBC >100,000 may have falsely elevated Potassium levels. ??For accurate Potassium quantification in these patients send serum separator tube (gold top) for subsequent determinations. ??Contact the Clinical Chemistry Laboratory if there are any questions. Chloride 102 98 - 107 mmol/L [facility] Carbon Dioxide 22 22 - 31 mmol/L [facility] Anion Gap 9 5 - 15 mmol/L [facility] Calcium 9.1 8.5 - 10.5 mg/dL [facility] Est Glomerular Filtration Rate 57(L) >=60 mL/min/1. 73 m?? [facility] Comment: This patient's [...] In Lab Geena Epperson MD CHEMISTRY ORDERABLES [facility] [place] [address] * (ABNORMAL) POCT Glucose (08/31/2021 4:07 AM EDT) Glucose, POC 251(H) 65 - 199 mg/dL [facility] Comment: Supplemental ranges: <140 mg/dL before meals <180 mg/dL all other times of the day Blood 08/31/2021 4:07 AM EDT 08/31/2021 4:07 AM EDT Mary Ferguson MD POINT OF CARE TEST O RDERABLES Performing Organization Address City/[facility]/ZIP Co de Phone Number [facility] [place] [address] * (ABNORMAL) POCT Glucose (08/31/2021 2:26 AM EDT) Glucose, POC 252(H) 65 - 199 mg/dL [facility] Comment: Supplemental ranges: <140 mg/dL before meals <180 mg/dL all other times of the day Blood 08/31/2021 2:26 AM EDT 08/31/2021 2:26 AM EDT Mary Ferguson MD POINT OF CARE TEST O SHERINERAROYCE Performing Organization Address [facility] Co de Phone Number [facility] [place] [address] * (ABNORMAL) POCT Glucose (08/30/2021 11:28 PM EDT) Glucose, POC 270(H) 65 - 199 mg/dL [facility] Comment: Supplemental ranges: <140 mg/dL before meals <180 mg/dL all other times of the day Blood 08/30/2021 11:2 8 PM EDT 08/30/2021 11:28 PM EDT Mary Ferguson MD POINT OF CARE TEST O RDERAROYCE Performing Organization Address City/[facility] Co de Phone Number [facility] [place] [address] * (ABNORMAL) POCT Glucose (08/30/2021 8:22 PM EDT) Glucose, POC 273(H) 65 - 199 mg/dL [facility] Comment: Supplemental ranges: <140 mg/dL before meals <180 mg/dL all other times of the day Blood 08/30/2021 8:22 PM EDT 08/30/2021 8:22 PM EDT Mary Ferguson MD POINT OF CARE TEST O RDERAROYCE Performing Organization Address City/[facility]/ZIP Co de Phone Number [facility] [place] [address] * POCT Glucose (08/30/2021 4:03 PM EDT) Glucose, POC 131 65 - 199 mg/dL [facility] Comment: Supplemental ranges: <140 mg/dL before meals <180 mg/dL all other times of the day Blood 08/30/2021 4:03 PM EDT 08/30/2021 4:03 PM EDT Mary Ferguson MD POINT OF CARE TEST O REBEL Performing Organization Address [facility] Co de Phone Number [facility] [place] [address] * POCT Glucose (08/30/2021 11:34 AM EDT) Glucose, POC 136 65 - 199 mg/dL [facility] Comment: Supplemental ranges: <140 mg/dL before meals <180 mg/dL all other times of the day Blood 08/30/2021 11:3 4 AM EDT 08/30/2021 11:34 AM EDT Mary Ferguson MD POINT OF CARE TEST O RDERAROYCE Performing Organization Address City/[facility] Co de Phone Number [facility] [place] [address] * (ABNORMAL) Troponin (08/30/2021 11:05 AM EDT) Troponin-T 0.02(H) 0.00 - 0.00 ng/mL [facility] Comment: The 99th percentile for Troponin T is less than 0.01 ng/mL, any detectable cTnT concentration using this assay should be considered elevated. According to the third universal definition of myocardial infarction the following criteria with a clinical presentation consistent with acute myocardial ischemia meets the diagnosis for a myocardial infarction (CT). Detection of a rise and/or fall of cTnT, with at least one value greater than the 99th percentile (> or = 0.01) and with at least one of the following ?? Symptoms of ischemia ?? New or presumed new significant ZO-qcvxstd-T wave (ST-T) changes or new left bundle [...] additional sample may be indicated. Reference: Third [place] Definition of Myocardial Infarction. Journal of the [place] [employer] 2012;60:1581-98 Blood 08/30/2021 11:0 5 AM EDT 08/30/2021 11:18 AM EDT Narrative Resulting Agency Comment Spec In Lab Geena Epperson MD CHEMISTRY ORDERABLES Performing Organization Address City/State/[facility] Co de Phone Number [facility] [place] [address] * ECHO COMPLETE W CONTRAST (08/30/2021 9:09 AM EDT) Anatomical Region Laterality Modality Cardiac Other 08/30/2021 7:31 AM EDT Narrative 08/30/2021 9:40 AM EDT ? Echocardiogram Report Name: GABRIEL STALEY ?Study Date: 08/30/2021 07:31 AM ? Patient Location: [place] [id number] A : 1955 ? Height: 157 cm ? Account: [id number] Age: 66 yrs ? Weight: 85 kg Gender: Female ?BSA: 1.9 m2 Ordering Physician: GEENA EPPERSON Referring Physician: JOSE BARBER Performed By: Samuel Cleveland RDCS Reason For Study: Non-ST elevation myocardial infarction (NSTEMI) Exam Location: [facility]. Interpretation Summary Left ventricle is of normal size. Wall thickness is normal. Left ventricular size and systolic function is normal. The left ventricular ejection fraction is 66% by Mcarthur's biplane. There are no segmental wall motion abnormalities. No significant valvular abnormalities. Other details as noted below. As compared to an outside echo report ([facility] Nov 05, 2013), there is no significant change. Procedure Complete-[id number]. Image enhancement Optison was used for left [...] STALEY Study Date: 207:31 AM Patient Location: [address] : 1955 Height: 157 cm Account: [id number] Age: 66 yrs Weight: 85 kg Gender: Female BSA: 1.9 m2 Ordering Physician: GEENA EPPERSON Referring Physician: JOSE BARBER Performed By: Samuel Cleveland RDCS Reason For Study: Non-ST elevation myocardial infarction (NSTEMI) Exam Location: [facility]. Interpretation Summary Left ventricle is of normal size. Wall thickness is normal. Leftventricular size and systolic function is normal. The left ventricular ejection fraction is66% by Mcarthur's biplane. There are no segmental wall motion abnormalities. No significant valvular abnormalities. Other details as noted below. As compared to an outside echo report ([facility] Nov 05, 2013), thereis no significant change. Procedure Complete-[id number]. Image enhancement Optison was used for left [...] (ABNORMAL) POCT Glucose (08/30/2021 7:23 AM EDT) [facility] Glucose, POC 211(H) 65 - 199 mg/dL [facility] Comment: Supplemental ranges: <140 mg/dL before meals <180 mg/dL all other times of the day Blood 08/30/2021 7:23 AM EDT 08/30/2021 7:23 AM EDT Mary Ferguson MD POINT OF CARE TEST O RDERABLES [facility] [place] [address] * Differential, Automated (08/30/2021 5:50 AM EDT) [facility] Neutrophil % 57.6 % [facility] Neutrophil Absolute 4.40 1.70 - 6.10 x10(3)/[facility] Lymph % 29.7 % [facility] Lymphocytes Abs 2.3 0.9 - 3.2 x10(3)/[facility] Monocyte % 5.5 % [facility] Monocyte Abs 0.4 0.3 - 0.9 x10(3)/[facility] Eos % 5.9 % [facility] Eosinophils Abs 0.4 0.0 - 0.4 x10(3)/[facility] Basophil % 1.0 % [facility] Baso Absolute 0.1 0.0 - 0.1 x10(3)/[facility] Immature Gran % 0.30 % [facility] Comment: Immature granulocytes(IG's)percentage and absolute count will include metamyelocytes, myelocytes, and promyelocytes. Blood smears from CBCs yielding IG's will be scanned manually for concordance. If this scan disagrees with the automated IG or if promyelocytes are noted, a manual differential will be performed. Immature Gran Absolute 0.02 0.00 - 0.04 x10(3)/[facility] Blood 08/30/2021 5:50 AM EDT 08/30/2021 6:00 AM EDT Narrative Resulting Agency Comment Spec In Lab Geena Epperson MD HEMATOLOGY ORDERABLE S [facility] [place] [address] * Hemogram (08/30/2021 5:50 AM EDT) White Blood Cell 7.6 4.0 - 9.5 x10(3)/[facility] Red Blood Cell 4.69 4.00 - 5.21 x10(6)/[facility] Hemoglobin 13.0 11.7 - 15.5 g/dL [facility] Hematocrit 39.8 35.7 - 45.8 % [facility] Mean Cell Volume 84.9 82.6 - 94.4 fL [facility] Mean Cell Hemoglobin 27.7 27.1 - 32.0 pg [facility] Mean Cell Hemoglobin Concentration 32.7 31.7 - 35.0 g/dL [facility] Platelet 252 145 - 357 x10(3)/[facility] RDW Standard Deviation 40.5 37.0 - 46.0 [facility] RDW coefficient of variation 13.2 11.5 - 14.1 % [facility] Mean Platelet Volume 10.7 7.6 - 12.9 [facility] NRBC% auto 0.0 % [facility] NRBC Absolute 0.000 0.000 - 0.000 x10(3)/[facility] Blood 08/30/2021 5:50 AM EDT 08/30/2021 6:00 AM EDT Narrative Resulting Agency Comment Spec In Lab Geena Epperson MD HEMATOLOGY ORDERABLE S Performing Organization Address City/State/[facility] Co de Phone Number [facility] [place] [address] * (ABNORMAL) BMP w/fasting Glucose (08/30/2021 5:50 AM EDT) Glucose Fasting 240(H) 65 - 99 mg/dL [facility] Comment: ?Fasting* Glucose [...] of Diabetes Mellitus, Position Statement from the [place] [employer]. ??Diabetes Care, Volume 33, Supplement 1, Feb 2009 Blood Urea Nitrogen 15 8 - 18 mg/dL [facility] Creatinine 1.32(H) 0.70 - 1.20 mg/dL [facility] Sodium 134(L) 135 - 145 mmol/L [facility] Potassium 4.0 3.5 - 5.0 mmol/L [facility] Comment: Please note: ??Patients with WBC >100,000 may have falsely elevated Potassium levels. ??For accurate Potassium quantification in these patients send serum separator tube (gold top) for subsequent determinations. ??Contact the Clinical Chemistry Laboratory if there are any questions. Chloride 103 98 - 107 mmol/L [facility] Carbon Dioxide 23 22 - 31 mmol/L [facility] Anion Gap 8 5 - 15 mmol/L [facility] Calcium 8.7 8.5 - 10.5 mg/dL [facility] Est Glomerular Filtration Rate 44(L) >=60 mL/min/1. 73 m?? [facility] Comment: This patient's [...] In Lab Geena Epperson MD CHEMISTRY ORDERABLES [facility] [place] [address] * Triglyceride (08/30/2021 5:50 AM EDT) Triglyceride 159 mg/dL [facility] Comment: Average Risk/Lower Risk: <150 mg/dL Borderline High Risk: 150-199 mg/dL High Risk: 200-499 mg/dL Very High Risk: >kr=060 mg/dL Blood 08/30/2021 5:50 AM EDT 08/30/2021 6:00 AM EDT Narrative Resulting Agency Comment Spec In Lab Geena Epperson MD CHEMISTRY ORDERABLES Performing Organization Address City/[facility]/ZIP Co de Phone Number [facility] [place] [address] * HDL/Cholesterol Profile (08/30/2021 5:50 AM EDT) Cholesterol, Total 125 mg/dL [facility] Comment: Lower Risk: <200 mg/dL Average Risk: 200-239 mg/dL Higher Risk: >kv=092 mg/dL HDL Cholesterol 29 mg/dL [facility] Comment: Males: ?? Higher Risk: <40 mg/dL Females: ?? Higher Risk: <50 mg/dL Cholesterol/HDL Ratio 4.3 ratio [facility] Chol/HDL Interpretation See Note [facility] Comment: Lipid management should be guided by a patient? s ASCVD risk, goals and preferences. ACC/AHA Guidelines recommend high intensity statin if clinical ASCVD or LDL greater than or equal to 190 mg/dL. http://invinol.com/RNQ-KJL-Ksnfuyjcj Measure LDL if Total Cholesterol minus HDL Cholesterol is greater than 220 mg/dL. Adults aged 40-75 with LDL 70-189 mg/dL should have their 10 year ASCVD risk estimated with the ACC/AHA ASCVD risk job cost estimator http://tools.acc.org/CYJAD-Bbjn-Srjyyttqu/ Statin should be discussed if risk greater [...] In Lab Geena Epperson MD CHEMISTRY ORDERABLES [facility] [place] [address] * LDL Cholesterol, Direct (08/30/2021 5:50 AM EDT) [facility] LDL Cholesterol, Direct 71 mg/dL [facility] Comment: Lowest Risk: <100 mg/dL Lower Risk: 100-129 mg/dL Borderline High Risk: 130-159 mg/dL High Risk: 160-189 mg/dL Very High Risk: >kw=100 mg/dL Blood 08/30/2021 5:50 AM EDT 08/30/2021 6:00 AM EDT Narrative Resulting Agency Comment Spec In Lab Geena Epperson MD CHEMISTRY ORDERABLES [facility] [place] [address] * (ABNORMAL) Hemoglobin A1c (08/30/2021 5:50 AM EDT) [facility] Hemoglobin A1c 9.2(H) 4.3 - 5.6 % [facility] Comment: Reference Range: [...] 36: Suppl. 1, S67-74 Estimated Average Glucose 216 mg/dL [facility] Comment: eAG equivalents [...] into estimated average glucose values. ??Diabetes Care 2008:31(8):7719-0360. Blood 08/30/2021 5:50 AM EDT 08/30/2021 6:02 AM EDT Narrative Resulting Agency Comment Spec In Lab Geena Epperson MD CHEMISTRY ORDERABLES [facility] [place] [address] * (ABNORMAL) Troponin (08/30/2021 5:50 AM EDT) Troponin-T 0.02(H) 0.00 - 0.00 ng/mL [facility] Comment: The 99th percentile for Troponin T is less than 0.01 ng/mL, any detectable cTnT concentration using this assay should be considered elevated. According to the third universal definition of myocardial infarction the following criteria with a clinical presentation consistent with acute myocardial ischemia meets the diagnosis for a myocardial infarction (CT). Detection of a rise and/or fall of cTnT, with at least one value greater than the 99th percentile (> or = 0.01) and with at least one of the following ?? Symptoms of ischemia ?? New or presumed new significant JU-aczpiqq-G wave (ST-T) changes or new left bundle [...] additional sample may be indicated. Reference: Third [place] Definition of Myocardial Infarction. Journal of the [place] [employer] 2012;60:1581-98 Blood 08/30/2021 5:50 AM EDT 08/30/2021 6:00 AM EDT Narrative Resulting Agency Comment Spec In Lab Geena Epperson MD CHEMISTRY ORDERABLES Performing Organization Address [facility]/ZIP Co de Phone Number [facility] [place] [place] [address] * Heparin (unfractionated) Level (08/30/2021 5:50 AM EDT) Pathologist [facility] UF Heparin 0.30 IU/mL [facility] Comment: Heparin (anti-Xa) levels should be [...] MD HEMATOLOGY ORDERABLE S Performing Organization Address [facility]/ZIP Co de Phone Number [facility] [place] [address] * (ABNORMAL) POCT Glucose (08/30/2021 1:40 AM EDT) Glucose, POC 208(H) 65 - 199 mg/dL [facility] Comment: Supplemental ranges: <140 mg/dL before meals <180 mg/dL all other times of the day Blood 08/30/2021 1:40 AM EDT 08/30/2021 1:40 AM EDT Mary Ferguson MD POINT OF CARE TEST O RDERABLES Performing Organization Address [facility]/ZIP Co de Phone Number [facility] [place] [address] * (ABNORMAL) Troponin (08/29/2021 11:34 PM EDT) Troponin-T 0.02(H) 0.00 - 0.00 ng/mL [facility] Comment: The 99th percentile for Troponin T is less than 0.01 ng/mL, any detectable cTnT concentration using this assay should be considered elevated. According to the third universal definition of myocardial infarction the following criteria with a clinical presentation consistent with acute myocardial ischemia meets the diagnosis for a myocardial infarction (CT). Detection of a rise and/or fall of cTnT, with at least one value greater than the 99th percentile (> or = 0.01) and with at least one of the following ?? Symptoms of ischemia ?? New or presumed new significant BP-bmbwvtl-V wave (ST-T) changes or new left bundle [...] additional sample may be indicated. Reference: Third [place] Definition of Myocardial Infarction. Journal of the [place] [employer] 2012;60:1581-98 Blood 08/29/2021 11:3 4 PM EDT 08/29/2021 11:41 PM EDT Narrative Resulting Agency Comment Spec In Lab Geena Epperson MD CHEMISTRY ORDERABLES Performing Organization Address [facility]/ZIP Co de Phone Number [facility] [place] [address] * (ABNORMAL) Differential, Automated (08/29/2021 11:34 PM EDT) Neutrophil % 53.3 % [facility] Neutrophil Absolute 5.53 1.70 - 6.10 x10(3)/[facility] Lymph % 35.9 % [facility] Lymphocytes Abs 3.7(H) 0.9 - 3.2 x10(3)/[facility] Monocyte % 4.2 % [facility] Monocyte Abs 0.4 0.3 - 0.9 x10(3)/[facility] Eos % 5.0 % [facility] Eosinophils Abs 0.5(H) 0.0 - 0.4 x10(3)/[facility] Basophil % 1.2 % [facility] Baso Absolute 0.1 0.0 - 0.1 x10(3)/[facility] Immature Gran % 0.40 % [facility] Comment: Immature granulocytes(IG's)percentage and absolute count will include metamyelocytes, myelocytes, and promyelocytes. Blood smears from CBCs yielding IG's will be scanned manually for concordance. If this scan disagrees with the automated IG or if promyelocytes are noted, a manual differential will be performed. Immature Gran Absolute 0.04 0.00 - 0.04 x10(3)/[facility] Blood 08/29/2021 11:3 4 PM EDT 08/29/2021 11:41 PM EDT Narrative Resulting Agency Comment Spec In Lab Geena Epperson MD HEMATOLOGY ORDERABLE S [facility] [place] [address] * (ABNORMAL) Hemogram (08/29/2021 11:34 PM EDT) White Blood Cell 10.4(H) 4.0 - 9.5 x10(3)/mc L [facility] Red Blood Cell 4.66 4.00 - 5.21 x10(6)/mc L [facility] Hemoglobin 12.8 11.7 - 15.5 g/dL [facility] Hematocrit 39.8 35.7 - 45.8 % [facility] Mean Cell Volume 85.4 82.6 - 94.4 fL [facility] Mean Cell Hemoglobin 27.5 27.1 - 32.0 pg [facility] Mean Cell Hemoglobin Concentration 32.2 31.7 - 35.0 g/dL [facility] Platelet 262 145 - 357 x10(3)/mc L [facility] RDW Standard Deviation 40.4 37.0 - 46.0 fL [facility] RDW coefficient of variation 13.2 11.5 - 14.1 % [facility] Mean Platelet Volume 10.8 7.6 - 12.9 fL [facility] NRBC% auto 0.0 % [facility] NRBC Absolute 0.000 0.000 - 0.000 x10(3)/ L [facility] Blood 08/29/2021 11:3 4 PM EDT 08/29/2021 11:41 PM EDT Narrative Resulting Agency Comment Spec In Lab Geena Epperson MD HEMATOLOGY ORDERABLE S [facility] [place] [address] * Heparin (unfractionated) Level (08/29/2021 11:34 PM EDT) UF Heparin 0.38 IU/mL [facility] Comment: Heparin (anti-Xa) levels should be [...] Lab Geena Epperson MD HEMATOLOGY ORDERABLE S [facility] [place] [address] * (ABNORMAL) BMP w/fasting Glucose (08/29/2021 11:34 PM EDT) Glucose Fasting 236(H) 65 - 99 mg/dL [facility] Comment: ?Fasting* Glucose [...] of Diabetes Mellitus, Position Statement from the [place] [employer]. ??Diabetes Care, Volume 33, Supplement 1, Feb 2009 Blood Urea Nitrogen 16 8 - 18 mg/dL [facility] Creatinine 1.38(H) 0.70 - 1.20 mg/dL [facility] Sodium 135 135 - 145 mmol/L [facility] Potassium 4.2 3.5 - 5.0 mmol/L [facility] Comment: Please note: ??Patients with WBC >100,000 may have falsely elevated Potassium levels. ??For accurate Potassium quantification in these patients send serum separator tube (gold top) for subsequent determinations. ??Contact the Clinical Chemistry Laboratory if there are any questions. Chloride 102 98 - 107 mmol/L [facility] Carbon Dioxide 23 22 - 31 mmol/L [facility] Anion Gap 10 5 - 15 mmol/L [facility] Calcium 8.3(L) 8.5 - 10.5 mg/dL [facility] Est Glomerular Filtration Rate 42(L) >=60 mL/min/1. 73 m?? [facility] Comment: This patient's [...] Epperson MD CHEMISTRY ORDERABLES Performing Organization Address City/State/[facility] Co de Phone Number [facility] [place] [address] * EKG 12 Lead (08/29/2021 11:25 PM EDT) Ventricular rate 77 BPM MUSE SYSTEM Atrial Rate 77 BPM MUSE SYSTEM P-R Interval 158 ms MUSE SYSTEM QRS Duration 84 ms MUSE SYSTEM Q-T Interval 390 ms MUSE SYSTEM QTC Calculated (Bezet) 441 ms MUSE SYSTEM Calculated P Severance 61 degrees MUSE SYSTEM Calculated R Severance 43 degrees MUSE SYSTEM Calculated T Severance 71 degrees MUSE SYSTEM INTERPRETATION Normal sinus rhythm Nonspecific ST abnormality Otherwise normal ECG When compared with ECG of 14-JAN-2015 07:03, there is a biphasic t wave change in the anteroseptal leads as compared to prior I personally reviewed the tracing and edited the fellows interpretation Confirmed by fellow MD Oswaldo, Uyen ([id number]) on 08/30/2021 6:14:05 PM Confirmed by MD Johnson Jon ([id number]) on 08/31/2021 2:26:59 PM MUSE SYSTEM 08/29/2021 11:2 5 PM EDT 08/31/2021 2:26 PM EDT Geena Epperson MD ECG ORDERABLES MUSE SYSTEM * POCT Glucose (08/29/2021 10:42 PM EDT) Glucose, POC 189 65 - 199 mg/dL [facility] Comment: Supplemental ranges: <140 mg/dL before meals <180 mg/dL all other times of the day Blood 08/29/2021 10:4 2 PM EDT 08/29/2021 10:42 PM EDT Mary Ferguson MD POINT OF CARE TEST O RDERABLES Performing Organization Address [facility] Co de Phone Number [facility] [place] [phone] documented in this encounter Visit Diagnoses Not on filedocumented in this encounter Admitting Diagnoses Diagnosis NSTEMI [...] for the duration of the active insulin. fentaNYL (pf) (50 mcg/mL) multi-dose injection ONCE PRN, Starting on Mon08/31/21 at 0846, Until Mon08/31/21 at 1011, Intra-Operative (Intra-Procedure), Routine Given 08/31/2021 8:56 AM EDT 25 mcg Left Arm Given 08/31/2021 8:46 AM EDT 25 mcg Le ft Arm glucagon (Glucagen) (1 mg/mL) injection solution 1 [...] grams.), Routine heparin (porcine) (1,000 units/mL) injection ONCE PRN, Starting on Mon08/31/21 at 0911, Until Mon08/31/21 at 1011, Cath (Intra-Procedure), Routine Given 08/31/2021 9:34 AM EDT 2,000 Units Left Arm Given 08/31/2021 9:11 AM EDT 4,000 Units L eft Arm insulin glargine-ygfn (Semglee) (100 unit/mL) subcutaneous injection [...] Given 08/31/2021 4:16 PM EDT 10 Units lidocaine (Xylocaine) 1% (10 mg/mL) injection ONCE PRN, Starting on Mon08/31/21 at 0858, Until Mon08/31/21 at 1011, Cath (Intra-Procedure), Routine Given 08/31/2021 8:58 AM EDT 3 mLs Right Arm metoprolol tartrate (Lopressor) tablet 12.5 mg 12.5 mg, Oral, EVERY 12 HOURS SCHEDULED (2 times per day), First dose on Mon08/30/21 at 0900, Until Discontinued, Routine Given 09/01/2021 8:29 AM EDT 12.5 mg Given 08/31/2021 8:28 PM EDT 12.5 mg Given 08/31/2021 8:10 AM EDT 12.5 mg midazolam (pf) (Versed) (1 mg/mL) multi-dose injection ONCE PRN, Starting on Mon08/31/21 at 0846, Until Mon08/31/21 at 1011, Cath (Intra-Procedure), Routine Given 08/31/2021 8:46 AM EDT 1 mg Left Arm nitroGLYcerin 100 mcg/mL intracoronary dilution ONCE PRN, Starting on Mon08/31/21 at 0906, Until Mon08/31/21 at 1011, Cath (Intra-Procedure), Routine Given 08/31/2021 9:30 AM EDT 150 mcg Given 08/31/2021 9:06 AM EDT 150 mcg pantoprazole EC (Protonix) tablet 40 mg 40 mg, Oral, DAILY, First dose on Mon08/30/21 at 0900, Until Discontinued, DO NOT CRUSH OR OPEN Given 09/01/2021 8:30 AM EDT 40 mg Given 08/31/2021 8:10 AM EDT 40 mg Given 08/30/2021 8:51 AM EDT 40 mg rosuvastatin (Crestor) tablet 40 mg 40 [...] EDT 5 mLs sodium chloride 0.9% infusion CONTINUOUS PRN, Starting on Mon08/31/21 at 0851, Until Mon08/31/21 at 1011, Cath (Intra-Procedure) New Bag 08/31/2021 8:51 AM EDT 250 mLs Left Arm verapamiL (Isoptin) (2.5 mg/mL) injection ONCE PRN, Starting on Mon08/31/21 at 0906, Until Mon08/31/21 at 1011, Administer over 2 Minutes, Cath (Intra-Procedure) Given 08/31/2021 9:06 AM EDT 2.5 mg documented in this encounter Active and [...] Unit), Routine 0829 (Given - Provider: Saba Hoffman RN) diphenhydrAMINE (Benadryl) capsule 50 mg (COMPLETED) 50 [...] Provider: Admin Adt)1134 (Given - Provider: Candice Faustni RN) insulin glargine-ygfn (Semglee) (100 unit/mL) subcutaneous [...] Provider: Candice Faustin RN - Reason: NPO)0826 (APR Hold - Provider: Admin Adt - Reason: Transfer to a Procedural area)1101 (APR Unhold - Provider: Admin Adt)1234 (Given - [...] schedule, Routine 1616 (Given - Provider: Candice Faustin RN)2027 (Given - Provider: Nica Chacon RN) [...] (100 unit/mL) subcutaneous injection vial 1-6 Units (CANCELED) 1-6 Units, Subcutaneous, 4 TIMES DAILY BEFORE [...] Procedural area)110 (APR Unhold - Provider: Admin Adt)1132 (Given - Provider: Candice aFustin RN) insulin lispro (HumaLOG;Admelog) (100 unit/mL) subcutaneous injection vial 2-12 Units (CANCELED)(Linked Group 2) 2-12 Units, Subcutaneous, 3 TIMES DAILY BEFORE [...] subcutaneous injection vial 5 Units (COMPLETED)(Linked Group 3) 5 Units, Subcutaneous, ONCE, 1 dose, On Mon08/31/21 at 0515, Routine 0440 (Given - Provider: Yasemin Pillai, RN) insulin lispro (HumaLOG;Admelog) (100 unit/mL) subcutaneous [...] - Reason: Transfer to a Procedural area)110 (MAR Unhold - Provider: Admin Adt)2027 (Given - Provider: Nica Chacon RN) 08 (Given - Provider: Saba Hoffman, JAY) pantoprazole EC (Protonix) tablet 40 mg 40 mg, Oral, DAILY, First dose on Mon08/30/21 at 0900, Until Discontinued, DO NOT CRUSH OR OPEN 0851 (Given - Provider: Candice Faustin RN) 0810 (Given - Provider: Candice Faustin RN)08 (MAR Hold - Provider: Admin Adt - Reason: Transfer to a Procedural area)110 (MAR Unhold - Provider: Admin Adt) 08 (Given - Provider: Saba Hoffman, JAY) predniSONE (Deltasone) tablet 50 mg (COMPLETED) 50 mg, Oral, EVERY 6 HOURS, 3 doses, First dose (after last modification) on Mon08/30/21 at 1900, Last dose on Mon08/31/21 at 0700, Routine 1812 (Given - Provider: Candice Faustin RN) 1 (Given - Provider: Yasemin Pillai, RN)0604 (Given - Provider: Yasemin Pillai, RN) rosuvastatin (Crestor) tablet 40 mg 40 mg, Oral, EVERY EVENING, First dose on Mon08/30/21 at 1700, Until Discontinued, Routine 1626 (Given - Provider: Candice Faustin, RN) 0826 (APR Hold - Provider: Admin Adt - Reason: Transfer to a Procedural area)1101 (APR Unhold - Provider: Admin Adt)1650 (Given - Provider: Candice Faustin RN) sodium chloride 0.9 % (flush) (BD PosiFlush Normal Saline 0.9) flush 5 mL 5 mL, Intravenous, 2 TIMES DAILY, First dose on Mon08/30/21 at 0145, Until Discontinued, Routine 0145 (Not Given - Provider: Buddy Mendes RN - Reason: See comment - Comment: medication infusing)0900 (Not Given - Provider: Candice Faustin RN - Reason: See comment - Comment: infusing)2004 (Given - Provider: Yasemin Pillai, JAY) 0826 (APR Hold - Provider: Admin Adt - Reason: Transfer to a Procedural area)0900 (Given - Provider: Candice Faustin RN)110 (APR Unhold - Provider: Admin Adt)2027 (Given - Provider: Nica Chacon, JAY) 0830 (Given - Provider: Saba Hoffman, JAY) Continuous Medication Order 08/30/2021 08/31/2021 09/01/2021 heparin (porcine) 50 units/mL in sodium chloride 0.45% 500 mL infusion (CANCELED)(Linked Group 4) 0-5,000 Units/hr (0-100 mL/hr), Intravenous, CONTINUOUS, Starting [...] Candice Faustin RN - Comment: off to brick and blocker aid labor)0826 (APR Hold - Provider: Admin Adt - [...] Provider: Brianna Rubalcava)1100 (Stopped - Provider: Candice S Matcheski, RN - Comment: stopped in brick and blocker aid labor)1101 (APR Unhold - Provider: Admin Adt) sodium chloride 0.9% infusion () 50 mL/hr, Intravenous, CONTINUOUS, Starting on Mon08/31/21 at 1045, Until Mon08/31/21 at 1444, Recovery (Recovery-Hospital Unit) 1026 (New Bag - Provider: Joe Zurita RN)1400 (Stopped - Provider: Candice Faustin RN) [...] ordered pain medications are indicated. , Routine 08 (APR Hold - Provider: Admin Adt - Reason: Transfer to a Procedural area)1101 (APR Unhold - Provider: Admin Adt) dextrose 10% infusion(Linked Group 5) 250 mL, at 1,000 mL/hr, Intravenous, EVERY [...] for the duration of the active insulin. 08 (APR Hold - Provider: Admin Adt - Reason: Transfer to a Procedural area)110 (APR Unhold - Provider: Admin Adt) fentaNYL (pf) (50 mcg/mL) multi-dose injection (CANCELED) ONCE PRN, Starting on Mon08/31/21 at 0846, Until Mon08/31/21 at 1011, Intra-Operative (Intra-Procedure), Routine 0846 (Given - Provider: Susanna Jimenez RN)0856 (Given - Provider: Ellen Lewis RN) glucagon (Glucagen) (1 mg/mL) injection solution 1 mg(Linked Group 5) 1 mg, Intramuscular, EVERY 30 MIN PRN, [...] the duration of the active insulin., Routine 08 (APR Hold - Provider: Admin Adt - Reason: Transfer to a Procedural area)110 (APR Unhold - Provider: Admin Adt) glucose (Glutose) 40% oral geL(Linked Group 5) 15-30 g of glucose, Buccal, EVERY 30 [...] weight of tube = 37.5 grams.), Routine 0826 (APR Hold - Provider: Admin Adt - Reason: Transfer to a Procedural area)1101 (APR Unhold - Provider: Admin Adt) heparin (porcine) (1,000 units/mL) injection 0-4,000 Units (CANCELED)(Linked Group 4) 0-4,000 Units, Intravenous, BOLUS PER HEPARIN PROTOCOL, [...] Routine 0634 (Given - Provider: Yasemin Pillai RN)0826 (APR Hold - Provider: Admin Adt - Reason: Transfer to a Procedural area)1101 (MAR Unhold - Provider: Admin Adt) heparin (porcine) (1,000 units/mL) injection (CANCELED) ONCE PRN, Starting on Mon08/31/21 at 0911, Until Mon08/31/21 at 1011, Cath (Intra-Procedure), Routine 09 (Given - Provider: Susanna Jimenez RN)09 (Given - Provider: Ellen Lewis RN) lidocaine (Xylocaine) 1% (10 mg/mL) injection 3 mg 3 mg (0.3 mL), Subcutaneous, ONCE PRN, 1 dose, Starting on Mon08/30/21 at 0050, Until Mon09/01/21 at 1446, for discomfort with PIV insertion, Routine 825 (APR Hold - Provider: Admin Adt - Reason: Transfer to a Procedural area)110 (APR Unhold - Provider: Admin Adt) lidocaine (Xylocaine) 1% (10 mg/mL) injection (CANCELED) ONCE PRN, Starting on Mon08/31/21 at 0858, Until Mon08/31/21 at 1011, Cath (Intra-Procedure), Routine 857 (Given - Provider: Soraya Martinez MD) midazolam (pf) (Versed) (1 mg/mL) multi-dose injection (CANCELED) ONCE PRN, Starting on Mon08/31/21 at 0846, Until Mon08/31/21 at 1011, Cath (Intra-Procedure), Routine 08 (Given - Provider: Susanna Jimenez RN) nitroGLYcerin [...] the last 24 to 72 hours., Routine 825 (APR Hold - Provider: Admin Adt - Reason: Transfer to a Procedural area)1101 (APR Unhold - Provider: Admin Adt) nitroGLYcerin 100 mcg/mL intracoronary dilution (CANCELED) ONCE PRN, Starting on Mon08/31/21 at 0906, Until Mon08/31/21 at 1011, Cath (Intra-Procedure), Routine 905 (Given - Provider: Jonnathan Kelley MD)929 (Given - Provider: Jonnathan Kelley MD) perflutren protein-A microsphers (Optison) (0.22 mg/mL) injection 0.6 mL (COMPLETED) 0.6 mL, Intravenous, ONCE PRN, 1 dose, Starting on Mon08/30/21 at 0909, Until Mon08/30/21 at 0910, Per Protocol, Routine 909 (Given - Provider: Samuel Cleveland) sodium chloride 0.9 % (flush) (BD PosiFlush Normal Saline 0.9) flush 5-20 mL 5-20 mL, Intravenous, EVERY 1 MIN PRN, Starting on Mon08/30/21 at 0050, Until Mon09/01/21 at 1446, flush, Flush pertains to all indwelling lines. Flush per protocol found in the job aid using the link provided on this medication record., Routine 825 (APR Hold - Provider: Admin Adt - Reason: Transfer to a Procedural area)110 (APR Unhold - Provider: Admin Adt) sodium chloride 0.9% infusion (CANCELED) CONTINUOUS PRN, Starting on Mon08/31/21 at 0851, Until Mon08/31/21 at 1011, Cath (Intra-Procedure) 850 (New Bag - Provider: Ellen Lewis RN) verapamiL (Isoptin) (2.5 mg/mL) injection (CANCELED) ONCE PRN, Starting on Mon08/31/21 at 0906, Until Mon08/31/21 at 1011, Administer over 2 Minutes, Cath (Intra-Procedure) 905 (Given - Provider: Jonnathan Kelley MD) Linked [...] 240 mg/dL in 2 hours, Routine Group 3: POCT Fingerstick Glucose (CANCELED) [...] dose, On Mon08/31/21 at 0515, Routine Group 4: heparin (porcine) 50 units/mL in sodium chloride [...] 0.2 international unit/mL: No Bolus, Routine Group 5: glucose (Glutose) 40% oral geLJump to med [...] Routine documented in this encounter 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
--- OUTSIDE RECORDS SUMMARY | 2023-12-15 12:39 | XMS_ITS | Encounter Summary ---
Author Organization [place] [address] Care Team Providers Care Nurse Staff Name Role Phone Haylee Baptiste MD Primary Care Provider [phone] Reason for Referral * Diagnostic Test (Routine) - Closed Specialty Diagnoses / Procedures Referred By Contac t Referred To Contact Radiology Diagnoses Cervical spondylosis Dizziness Procedures MRI Angiogram Head wo Contrast (Generic) Cody Staton MD [facility] [place] [address] [place] [address] Referral ID Status Reason Start Date Expiration Date V isits Requested Visits Authorized [id number] Closed Specialty Service Requested 06/22/2021 12/19/2021 1 1 * Diagnostic Test (Routine) - Closed Specialty Diagnoses / Procedures Referred By Contac t Referred To Contact Radiology Diagnoses Cervical spondylosis Dizziness Procedures MRI Angiogram Neck w Contrast Cody Staton MD [facility] [place] [address] [place] [address] Referral ID Status Reason Start Date Expiration Date V isits Requested Visits Authorized [id number] Closed Specialty Service Requested 06/22/2021 12/19/2021 1 1 * Diagnostic Test (Routine) - Closed Specialty Diagnoses / Procedures Referred By Contac t Referred To Contact Radiology Diagnoses Cervical spondylosis Dizziness Procedures MRI Cervical Spine wo Contrast (Generic) Cody Staton MD [facility] [place] [address] [place] [address] Referral ID Status Reason Start Date Expiration Date V isits Requested Visits Authorized [id number] Closed Specialty Service Requested 06/18/2021 12/15/2021 1 1 Reason for Visit * Diagnostic Test (Routine) - Closed Specialty Diagnoses / Procedures Referred By Contac t Referred To Contact Radiology Diagnoses Cervical spondylosis Dizziness Procedures MRI Angiogram Head wo Contrast (Generic) Cody Staton MD [facility] [place] [address] [place] [address] Referral ID Status Reason Start Date Expiration Date V isits Requested Visits Authorized [id number] Closed Specialty Service Requested 06/22/2021 12/19/2021 1 1 Encounter Details Date Type Department Care Team (Latest Contact Info) Description 06/29/2021 11:05 AM EDT - 06/29/2021 11:59 PM EDT Hospital [place] [address] Cody Staton MD [facility] [place] [address] Cervical spondylosis; Dizziness Discharge Disposition: Home Social History Tobacco Use [...] needed. 09/11/2020 fluticasone propionate (Flonase) 50 mcg/actuation [place], Suspension 1 spray by Each Nare route as needed. 01/05/2015 ondansetron (Zofran) 4 mg tablet Take 4 mg by mouth as needed. 03/06/2018 triamcinolone (ARISTOCORT) 0.5 % Cream Apply topically 3 times daily as needed. 03/06/2018 traMADoL (Ultram) 50 mg tablet Take 50 mg by mouth every 6 hours as needed. 10/14/2013 01/05/2023 cyclobenzaprine (Flexeril) 5 mg Tablet Take 1 tablet by mouth nightly. 30 tablet 11 06/29/2021 01/05/2023 sitaGLIPtin (JANUVIA) 100 mg Tablet Take 100 mg by mouth daily. 08/29/2021 nabumetone (RELAFEN) 750 mg Tablet Take 750 mg by mouth 2 times daily. 09/01/2021 isosorbide mononitrate (IMDUR) 30 mg Tablet Sustained Release 24 hr Take 30 mg by mouth daily. 08/29/2021 losartan (COZAAR) 100 mg Tablet Take 100 mg by mouth daily. 08/29/2021 clopidogrel (PLAVIX) 75 mg Tablet Take 75 mg by mouth daily. 09/01/2021 insulin detemir (LEVEMIR) Insulin Pen Inject 38 Units subcutaneously nightly. 08/30/19 22 glipiZIDE (GLUCOTROL XL) 5 mg Tablet Extended Rel 24 hr Take 5 mg by mouth daily. 08/29/2021 meTOPROLOL succinate (TOPROL-XL) 25 mg Tablet Sustained Release 24 hr Take 25 mg by mouth daily. 08/29/2021 omeprazole (PRILOSEC) 20 mg capsule 20MG, PO, Once daily 02/23/2006 022 meclizine (ANTIVERT) 25 mg tablet 25MG, PO, Three times daily PRN 02/23/2006 08/29/2021 atorvastatin (LIPITOR) 80 mg tablet 80MG = 1 Tablet(s), PO, Once daily 02/23/2006 09/01/2021 ASPIRIN ORAL Take 81 mg by mouth. 02/23/2006 023 documented as of this encounter Plan of Treatment Upcoming Encounters Date Type Department Care Team (Late st Contact Info) Description 01/09/2024 2:20 PM EST TH Visit (TeleHealth) [place]ematology [place] [address] Kati Burnette MD [facility] [place] [address] 01/24/2024 9:30 AM EST Appointment XRay at [address] [place] [address] Jimmy Swann MD [facility] [place] [address] 01/24/2024 11:00 AM EST Office Visit [facility] and Spine Center at [place] [address] Regulo Wang PA [facility] [place] [address] 01/24/2024 2:45 PM EST Appointment Mammography at [place] [address] 01/24/2024 3:45 PM EST Office Visit General Surgery at [place] [address] Caitlyn Hirsch MD [facility] [place] [address] 03/20/2024 9:00 AM EST Office Visit Hematology and Oncology at [place] [phone] Ericka Forrest, [facility] HEMATOLOGY [place] [address] 07/29/2024 2:00 PM EDT Office Visit Radiation Oncology at [address] [phone] Kasie Marte MD [facility] [place] [address] documented as of this encounter Procedures Procedure Name Priority Date/Time Associated Diagnosis Comments MRI HEAD ANGIOGRAM WO CONTRAST Routine 06/29/2021 12:57 PM EDT Cervical spondylosis Dizziness MRI CERVICAL SPINE WO CONTRAST Routine 06/29/2021 12:57 PM EDT Cervical spondylosis Dizziness MRI NECK ANGIOGRAM WITH CONTRAST Routine 06/29/2021 12:57 PM EDT Cervical spondylosis Dizziness documented in this encounter Results * MRI Angiogram Head wo Contrast (Generic) (06/29/2021 12:57 PM EDT) Anatomical Region Laterality Modality Head Magnetic Resonan ce Impressions 06/29/2021 2:08 PM EDT 1. ??Right vertebral artery appears reduced in caliber or congenitally diminutive. Possible collateral supply to the distal cervical right vertebral artery from a cervical branch. The distal intradural right vertebral artery is not well visualized. Dissection is not excluded. 2. ??Mild narrowing at the right carotid bifurcation. Thank you for letting us participate in the care of this patient. ??If you are a health care provider and have any questions regarding this report, please contact the number below. ??For patients who have questions please contact the health director long term care that requested your imaging first. ? Electronically signed by: Meka Mcclendon [facility] ([phone]), at 06/29/2021 2:08 PM Narrative 06/29/2021 2:08 PM EDT EXAMINATION: MRI ANGIOGRAM HEAD WO CONTRAST (GENERIC) CLINICAL HISTORY: Dizziness, persistent/recurrent, cardiac or vascular cause suspected TECHNIQUE: [id number] MRA of the head was performed without contrast. MR angiogram neck was performed after the intravenous administration of 17 mL Dotarem COMPARISON: MRI brain 04/30/2021 FINDINGS: MRA NECK: Exam is marred by patient motion. Combined origin of the left common carotid artery and brachiocephalic artery. No stenosis of the great vessel origins. Common carotid arteries are normal in caliber. Possible mild narrowing of the right carotid bifurcation. Poor visualization of the right vertebral artery in the neck from its origin with possible collateral supply to the distal cervical vertebral artery from a cervical branch. Left vertebral artery appears normal in course and caliber throughout. MRA [place]: There is normal flow-related enhancement within the intracranial internal carotid arteries and major branches of the middle and anterior cerebral arteries. No aneurysm of the anterior communicating artery. The distal right intradural vertebral artery is not well opacified. The vertebrobasilar system demonstrates normal flow-related enhancement and caliber. The superior cerebellar and posterior cerebral arteries and major branches are normal in caliber. ?? Prominent posterior communicating arteries with hypoplastic or absent P1 LOCKSTITCH POCKET SETTER segments. No aneurysm. Procedure Note Meka Mcclendon MD - 06/29/2021 EXAMINATION: MRI ANGIOGRAM HEAD WO CONTRAST (GENERIC) CLINICAL HISTORY: Dizziness, persistent/recurrent, cardiac or vascularcause suspected TECHNIQUE: [id number] MRA of the head was performed without contrast. MR angiogram neck was performed after the intravenous administration of 17mL Dotarem COMPARISON: MRI brain 04/30/2021 FINDINGS: MRA NECK: Exam is marred by patient motion. Combined origin of the leftcommon carotid artery and brachiocephalic artery. No stenosis of the greatvessel origins. Common carotid arteries are normal in caliber. Possible mildnarrowing of the right carotid bifurcation. Poor visualization of the rightvertebral artery in the neck from its origin with possible collateral supply to thedistal cervical vertebral artery from a cervical branch. Left vertebral arteryappears normal in course and caliber throughout. MRA [place]: There is normal flow-related enhancement withinthe intracranial internal carotid arteries and major branches of the middleand anterior cerebral arteries. No aneurysm of the anterior communicatingartery. The distal right intradural vertebral artery is not well opacified. The vertebrobasilar system demonstrates normal flow-related enhancement andcaliber. The superior cerebellar and posterior cerebral arteries and majorbranches are normal in caliber. Prominent posterior communicating arteries withhypoplastic or absent P1 LOCKSTITCH POCKET SETTER segments. No aneurysm. IMPRESSION 1. 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 Possible collateral supply to the distal cervical rightvertebral artery from a cervical branch. The distal intradural right vertebralartery is not well visualized. Dissection is not excluded. 2. Mild narrowing at the right carotid bifurcation. Thank you for letting us participate in the care of this patient. If youare a health care provider and have any questions regarding this report,please contact the number below. For patients who have questions please contactthe health director long term care that requested your imaging first. Electronically signed by: Meka Mcclendon [facility]([phone]), at 06/29/2021 2:08 PM Cody Staton MD [facility] MRI ORDERABLES * MRI Angiogram Neck w Contrast (06/29/2021 12:57 PM EDT) Anatomical Region Laterality Modality Neck Magnetic Resonan ce Impressions 06/30/2021 7:59 AM EDT 1. 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 Possible collateral supply to the distal cervical right vertebral artery from a cervical branch. The distal intradural right vertebral artery is not well visualized. Dissection is not excluded. 2. Mild narrowing at the right carotid bifurcation. Thank you for letting us participate in the care of this patient. If you are a health care provider and have any questions regarding this report, please contact the number below. For patients who have questions please contact the health director long term care that requested your imaging first. Thank you for letting us participate in the care of this patient. ??If you are a health care provider and have any questions regarding this report, please contact the number below. ??For patients who have questions please contact the health director long term care that requested your imaging first. ? Electronically signed by: Meka Mcclendon [facility] ([phone]), at 06/30/2021 7:59 AM Narrative 06/30/2021 7:59 AM EDT EXAMINATION: MRI ANGIOGRAM NECK W CONTRAST CLINICAL HISTORY: cervicogenic dizziness TECHNIQUE: [id number] MRA of the head was performed without contrast. MR angiogram neck was performed after the intravenous administration of 17 mL Dotarem COMPARISON: MRI brain 04/30/2021 FINDINGS: MRA NECK: Exam is marred by patient motion. Combined origin of the left common carotid artery and brachiocephalic artery. No stenosis of the great vessel origins. Common carotid arteries are normal in caliber. Possible mild narrowing of the right carotid bifurcation. Poor visualization of the right vertebral artery in the neck from its origin with possible collateral supply to the distal cervical vertebral artery from a cervical branch. Left vertebral artery appears normal in course and caliber throughout. MRA [place]: There is normal flow-related enhancement within the intracranial internal carotid arteries and major branches of the middle and anterior cerebral arteries. No aneurysm of the anterior communicating artery. The distal right intradural vertebral artery is not well opacified. The vertebrobasilar system demonstrates normal flow-related enhancement and caliber. The superior cerebellar and posterior cerebral arteries and major branches are normal in caliber. Prominent posterior communicating arteries with hypoplastic or absent P1 LOCKSTITCH POCKET SETTER segments. No aneurysm. Procedure Note Meka Mcclendon MD - 06/30/2021 EXAMINATION: MRI ANGIOGRAM NECK W CONTRAST CLINICAL HISTORY: cervicogenic dizziness TECHNIQUE: [id number] MRA of the head was performed without contrast. MR angiogram neck was performed after the intravenous administration of 17mL Dotarem COMPARISON: MRI brain 04/30/2021 FINDINGS: MRA NECK: Exam is marred by patient motion. Combined origin of the leftcommon carotid artery and brachiocephalic artery. No stenosis of the greatvessel origins. Common carotid arteries are normal in caliber. Possible mildnarrowing of the right carotid bifurcation. Poor visualization of the rightvertebral artery in the neck from its origin with possible collateral supply to thedistal cervical vertebral artery from a cervical branch. Left vertebral arteryappears normal in course and caliber throughout. MRA [place]: There is normal flow-related enhancement withinthe intracranial internal carotid arteries and major branches of the middleand anterior cerebral arteries. No aneurysm of the anterior communicatingartery. The distal right intradural vertebral artery is not well opacified. The vertebrobasilar system demonstrates normal flow-related enhancement andcaliber. The superior cerebellar and posterior cerebral arteries and major branchesare normal in caliber. Prominent posterior communicating arteries withhypoplastic or absent P1 LOCKSTITCH POCKET SETTER segments. No aneurysm. IMPRESSION 1. Right vertebral artery appears reduced in caliber or congenitallydiminutive. Possible collateral supply to the distal cervical right vertebral arteryfrom a cervical branch. The distal intradural right vertebral artery is notwell visualized. Dissection is not excluded. 2. Mild narrowing at the right carotid bifurcation. Thank you for letting us participate in the care of this patient. If youare a health care provider and have any questions regarding this report,please contact the number below. For patients who have questions please contactthe health director long term care that requested your imaging first. Thank you for letting us participate in the care of this patient. If youare a health care provider and have any questions regarding this report,please contact the number below. For patients who have questions please contactthe health director long term care that requested your imaging first. Electronically signed by: Meka Mcclendon [facility]([phone]), at 06/30/2021 7:59 AM Cody Staton MD [facility] MRI ORDERABLES * MRI Cervical Spine wo Contrast (Generic) (06/29/2021 12:57 PM EDT) Anatomical Region Laterality Modality C-spine Magnetic Resonan ce Impressions 06/29/2021 2:25 PM EDT Multilevel degenerative disc changes, most prominent at C6-7 where there is a large disc extrusion impinging on the spinal cord. Thank you for letting us participate in the care of this patient. ??If you are a health care provider and have any questions regarding this report, please contact the number below. ??For patients who have questions please contact the health director long term care that requested your imaging first. ? Electronically signed by: Alberto Jasso MD, [facility] ([phone]), at 06/29/2021 2:25 PM Narrative 06/29/2021 2:25 PM EDT EXAMINATION: MRI CERVICAL SPINE WO CONTRAST (GENERIC) CLINICAL HISTORY: Cervical radiculopathy, no red flags; cervicogenic dizziness TECHNIQUE: MRI of the cervical spine performed without intravenous contrast administration COMPARISON: MRI of the brain 06/09/2021 FINDINGS: Marrow signal intensity is normal in the cervical spine and skull base. Cervical spondylosis is noted in the mid and lower cervical spine. Posterior fossa contents appear grossly normal. At individual levels following findings are demonstrated: Foramen magnum is patent with normal appearance the cervical medullary junction. The C1-2 articulation is normal. C1-2 level shows normal diameter spinal canal. The cord is normal. C2-3 shows minimal degenerative changes in the posterior elements without significant stenosis of the spinal canal. The cord appears normal. C3-4 reveals a minimal disc osteophyte complex. Facet joints appear normal. No significant stenosis of the spinal canal or neural foramina is seen. C4-5 demonstrates a moderate disc osteophyte complex, broad-based indenting the ventral thecal sac and appearing to touch the cord. The cord is mildly flattened and shows minimal T2 hyperintensity on axial images. Facet joints appear normal. The foramina appear generally patent. C5-C6 reveals a central protrusion of disc material of moderate size indenting the ventral thecal sac and appearing to touch and mildly deform the cord. T2-weighted images suggest minimal hyperintensity in the ventral cord (see image 20 series 10) . Facet joints appear generally normal. The left intervertebral foramen appears narrowed. C6-C7 demonstrates a large central disc extrusion which impinges on the ventral spinal cord seen best on axial image 15 of series 10 but also well on image 22 of series 9. This is eccentrically prominent to the left. It impinges on the spinal cord, more so on the left than on the right as seen on image 23 series 9. The foramina do not appear significantly narrowed but the images are motion limited. C7-T1 is normal in appearance. Procedure Note Alberto Jasso MD - 06/29/2021 EXAMINATION: MRI CERVICAL SPINE WO CONTRAST (GENERIC) CLINICAL HISTORY: Cervical radiculopathy, no red flags; cervicogenicdizziness TECHNIQUE: MRI of the cervical spine performed without intravenous contrastadministration COMPARISON: MRI of the brain 06/09/2021 FINDINGS: Marrow signal intensity is normal in the cervical spine and skull base.Cervical spondylosis is noted in the mid and lower cervical spine. Posteriorfossa contents appear grossly normal. At individual levels following findings are demonstrated: Foramen magnumis patent with normal appearance the cervical medullary junction. The C1-2 articulation is normal. C1-2 level shows normal diameter spinalcanal. The cord is normal. C2-3 shows minimal degenerative changes in the posterior elementswithout significant stenosis of the spinal canal. The cord appears normal. C3-4 reveals a minimal disc osteophyte complex. Facet joints appearnormal. No significant stenosis of the spinal canal or neural foramina is seen. C4-5 demonstrates a moderate disc osteophyte complex, broad-basedindenting the ventral thecal sac and appearing to touch the cord. The cord is mildlyflattened and shows minimal T2 hyperintensity on axial images. Facet joints appearnormal. The foramina appear generally patent. C5-C6 reveals a central protrusion of disc material of moderate sizeindenting the ventral thecal sac and appearing to touch and mildly deform thecord. T2-weighted images suggest minimal hyperintensity in the ventral cord (seeimage 20 series 10) . Facet joints appear generally normal. The leftintervertebral foramen appears narrowed. C6-C7 demonstrates a large central disc extrusion which impinges on theventral spinal cord seen best on axial image 15 of series 10 but also well onimage 22 of series 9. This is eccentrically prominent to the left. It impinges onthe spinal cord, more so on the left than on the right as seen on image 23series 9. The foramina do not appear significantly narrowed but the images aremotion limited. C7-T1 is normal in appearance. IMPRESSION Multilevel degenerative disc changes, most prominent at C6-7 where thereis a large disc extrusion impinging on the spinal cord. Thank you for letting us participate in the care of this patient. If youare a health care provider and have any questions regarding this report,please contact the number below. For patients who have questions please contactthe health director long term care that requested your imaging first. Electronically signed by: Alberto Jasso MD, [facility]([phone]), at 06/29/2021 2:25 PM Cody Staton MD [facility] MRI ORDERABLES documented in this encounter Visit Diagnoses Diagnosis Cervical spondylosis Cervical spondylosis without myelopathy Dizziness Dizziness and giddiness documented in this encounter Administered Medications Inactive Administered Medications - up to 3 most recent administrations Medication Order MAR Action Action Date Dose Rate Site gadoterate meglumine (Dotarem) (0.5 mMol/mL) injection solution 0-100 mL 0-100 mL, Intravenous, ONCE PRN, 1 dose, Starting on Mon06/29/21 at 1216, Until Mon06/29/21 at 1301, Per Protocol, Radiology Contrast, Routine Given 06/29/2021 1:01 PM EDT 17 mLs documented in this encounter Care Teams Nurse Staff Relationship Specialty Start Date End Date Haylee Baptiste MD [address] [place] [address] PCP - General 01/21/10 documented as of this encounter
--- OUTSIDE RECORDS SUMMARY | 2023-12-15 12:39 | XMS_ITS | Encounter Summary ---
Author Organization Formerly [facility] [address] Care Team Providers Care Precision Agronomist Name Role Phone Haylee Baptiste MD Primary Care Provider [phone] Encounter Details Date Type Department Care Team (Late st Contact Info) Description 08/29/2021 [place] [phone] Quang Alford MD [facility] [place] [address] Social History Tobacco Use Types Packs/Day Years [...] encounter Miscellaneous Notes * Telephone Encounter - Quang Alford MD - 08/29/2021 2:57 PM EDT Telephone Triage Note Initial contact date: 08/29/2021 Initial contact time: 2:57 PM Referring provider: Jose Hirsch MD Patient location: [facility] Past medical history: CAD (Non-obstructive Cath 2014) CVA in the past Hypertension Diabetes on insulin Hyperlipidemia History 66-year-old female with past medical history of coronary disease. She was worked up with a positivestress test in 2014 with a left heart cath showing nonobstructive disease in the LAD which was IFR negative. 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 Over the past 12 hours she has had was been essentially resting chest pain. It radiates to the left arm. She had an work-up in the [facility] emergency department with essentially normal labs and a chest x-raywithout any noted process. Vitals have been stable and she had high-sensitivity troponins that haveranged from 161 uptrending to 265 on recheck. She was started on nitro drip and had improvement in her symptoms. This came back when the nitro drip was positive and again remitted when the nitro dripwas turned back on. Pertinent diagnostic findings: Vitals: BP 122/52 HR 88 RR 18 SaO2 98% on room air EKG: Normal sinus rhythm Troponin (ULN 60) 161--> 265 CXR: No acute cardiopulmonary process 66-year-old female with past medical history of nonobstructive coronary disease on cath 2015 here at [facility] who presents with chest pain which is ongoing for the last 12 hours rating to the left arm with positive troponin which has been uptrending without any other explanation. She has been loaded with aspirin she is already on Plavix due to her prior strokes and is going to be started on heparin. Request was made for transfer to a [facility] and we have list for tomorrow. Plan: -Continue aspirin, Plavix and heparin. - She was not loaded with Plavix that she has is a chronic medication for her. - Accepted for transfer for further evaluation of NSTEMI. - Continue nitro drip for symptoms. If symptoms are escalating and uncontrolled by nitro or if new EKG changes concerning for evolving STEMI or other clinical instability recommended calling for further recommendations and possible earlier transfer at that time. Quang Alford MD 08/29/2021 2:57 PM documented in this encounter Plan of Treatment Upcoming Encounters Date Type Department Care Team (Late st Contact Info) Description 01/09/2024 2:20 PM EST TH Visit (TeleHealth) Hematology [place] [phone] Kati Burnette MD [facility] DR [place] [address] 01/24/2024 9:30 AM EST Appointment XRay at [address] [place] [phone] Jimmy Swann MD [facility] [place] [address] 01/24/2024 11:00 AM EST Office Visit Pain and Spine Center at [place] [phone] Regulo Wang PA [facility] [place] [address] 01/24/2024 2:45 PM EST Appointment Mammography at [place] [phone] 01/24/2024 3:45 PM EST Office Visit General Surgery at [place] [phone] Caitlyn Hirsch MD [facility] [place] [address] 03/20/2024 9:00 AM EST Office Visit Hematology [place] [address] Ericka Forrest, [facility] DR [place] [address] 07/29/2024 2:00 PM EDT Office Visit Radiation Oncology at [address] [address] Kasie Marte MD [facility] [address] documented as of this encounter Visit Diagnoses Not on filedocumented in this encounter Care Teams Precision Agronomist Relationship Specialty Start Date End Date Haylee Baptiste MD [address] [place] [address] PCP - General 01/21/10 documented as of this encounter
--- OUTSIDE RECORDS SUMMARY | 2023-12-15 12:40 | XMS_ITS | Encounter Summary ---
Author Organization [facility] [place] [address] Care Team Providers Care Target Man Name Role Phone Haylee Baptiste MD Primary Care Provider [phone] Reason for Visit * Reason Onset Date Comments Appointment 10/19/2016 Encounter Details Date Type Department Care Team (Late st Contact Info) Description 10/19/2016 Tele[place] [address] Michael Larsen MD [facility] DR [place]OP[place] [address] Appointment Social History Tobacco Use Types Packs/Day [...] encounter Miscellaneous Notes * Telephone Encounter - Mita Nix - 10/21/2016 1:53 PM EDT Patient is scheduled * Telephone Encounter - Corine Rueda - 10/21/2016 10:29 AM EDT Unable to contact Patient letter sent * Telephone Encounter - Leslie Fisher - 10/19/2016 5:21 PM EDT Called to schedule 6 wk follow up with Dr Larsen for XR LEFT ACHILLES RUPTURE DOI 09/02/16 & LTWRIST SCAPHOID FX DOI 09/03/16 No answer, no voicemail documented in this encounter Plan of Treatment Upcoming Encounters Date Type Department Care Team (Late st Contact Info) Description 01/09/2024 2:20 PM EST TH Visit (TeleHealth) Hematology [place] [address] Kati Burnette MD [facility] [place] [address] 01/24/2024 9:30 AM EST Appointment XRay at [address] Page [phone] Jimmy Swann MD [facility] [place] [address] 01/24/2024 11:00 AM EST Office Visit Pain and Spine Center at [place] [address] Regulo Wang PA [facility] [place] [address] 01/24/2024 2:45 PM EST Appointment Mammography at [address] 01/24/2024 3:45 PM EST Office Visit General Surgery at [address] Caitlyn Hirsch MD [facility] [place] [address] 03/20/2024 9:00 AM EST Office Visit Hematology [place] [address] Ericka Forrest, [facility] DR HEMATOLOGY [place] [address] 07/29/2024 2:00 PM EDT Office Visit Radiation Oncology at [address] [phone] Kasie Marte MD [facility] DR [place] [address] documented as of this encounter Visit Diagnoses Not on filedocumented in this encounter Care Teams Target Man Relationship Specialty Start Date End Date Haylee Baptiste MD [address] [place] [address] PCP - General 01/21/10 documented as of this encounter
--- OUTSIDE RECORDS SUMMARY | 2023-12-15 12:40 | XMS_ITS | Encounter Summary ---
Author Organization Formerly [facility], [facility] Address [facility] [place] [address] Care Team Providers Care Exchange Administrator Name Role Phone Haylee Baptiste MD Primary Care Provider [phone] Encounter Details Date Type Department Care Team (Latest Contact Info) Description 10/19/2016 1:10 PM EDT - 10/19/2016 1:33 PM EDT Hospital Encounter XRay at [address] [place] [address] Chapo Marin MD [facility] [place] [address] Left hand pain Discharge Disposition: Home Social History Tobacco Use [...] Sig Dispensed Refills Start Date End Date fluticasone propionate (Flonase) 50 mcg/actuation [place], Suspension 1 spray by Each Nare route as needed. 01/05/2015 traMADoL (Ultram) 50 mg tablet Take 50 mg by mouth every 6 hours as needed. 10/14/2013 023 HYDROcodone-acetamino phen (NORCO) 5-325 mg Tablet TAKE ONE TABLET BY MOUTH EVERY 6 HOURS NEEDED 0 09/03/2016 12/01/19 17 sitaGLIPtin (JANUVIA) 100 mg Tablet Take 100 [...] Take 75 mg by mouth daily. 09/01/2021 topiramate (TOPAMAX) 25 mg Tablet Take 25 mg by mouth daily. HASN'T TAKEN IN MONTHS 11/30/2016 insulin detemir (LEVEMIR) Insulin Pen Inject 38 Units subcutaneously nightly. 08/30/19 22 glipiZIDE (GLUCOTROL XL) 5 mg Tablet Extended Rel 24 hr Take 5 mg by mouth daily. 08/29/2021 meTOPROLOL succinate (TOPROL-XL) 25 mg Tablet Sustained Release 24 hr Take 25 mg by mouth daily. 08/29/2021 omeprazole (PRILOSEC) 20 mg capsule 20MG, PO, Once daily 02/23/20062021 meclizine (ANTIVERT) 25 mg tablet 25MG, PO, [...] TH Visit (TeleHealth) Hematology [place] [address] Kati Burnette MD [facility] [place] [address] 01/24/2024 9:30 AM EST Appointment XRay at [address] [place] [address] Jimmy Swann MD [facility] [place] [address] 01/24/2024 11:00 AM EST Office Visit Pain and Spine Center at [place] [address] Regulo Wang PA [facility] [place] [address] 01/24/2024 2:45 PM EST Appointment Mammography at [place] [address] 01/24/2024 3:45 PM EST Office [place] [address] Caitlyn Hirsch MD [facility] [place] [address] 03/20/2024 9:00 AM EST Office Visit Hematology and Oncology at [place] [address] Ericka Forrest, [facility] DR HEMATOLOGY [place] [address] 07/29/2024 2:00 PM EDT Office Visit Radiation Oncology at [address] [address] Kasie Marte MD [facility] [place] [address] documented as of this encounter Procedures Procedure Name Priority Date/Time Associated Diagnosis Comments XR HAND MIN 3 VIEWS LEFT Routine 10/19/2016 2:15 PM EDT Left hand pain documented in this encounter Results * XR Hand Min 3 views Left (Generic) (10/19/2016 2:15 PM EDT) Anatomical Region Laterality Modality Hand Left Digital Radiogra phy Impressions 10/19/2016 3:29 PM EDT Unchanged tiny bone fragment at the dorsal base of the third middle phalanx which could potentially relate to a extensor avulsion fracture of uncertain age. No other interval change is seen. Narrative 10/19/2016 3:29 PM EDT EXAMINATION: XR HAND MIN 3 VIEWS LEFT (GENERIC) CLINICAL HISTORY: Eval for healing fractures TECHNIQUE: 3 views. COMPARISON: None FINDINGS: There is a small corticated density at the dorsal base of the third middle phalanx which is unchanged. No acute fracture or dislocation is otherwise identified. Examination is otherwise stable. Procedure Note Zeyad Dominguez MD - 10/19/2016 EXAMINATION: XR HAND MIN 3 VIEWS LEFT (GENERIC) CLINICAL HISTORY: Eval for healing fractures TECHNIQUE: 3 views. COMPARISON: None FINDINGS: There is a small corticated density at the dorsal base of the thirdmiddle phalanx which is unchanged. No acute fracture or dislocation isotherwise identified. Examination is otherwise stable. IMPRESSION Unchanged tiny bone fragment at the dorsal base of the third middlephalanx which could potentially relate to a extensor avulsion fracture ofuncertain age. No other interval change is seen. Cahpo Marin MD IMG DX ORDERABLES documented in this encounter Visit Diagnoses Diagnosis Left hand pain Pain in limb documented in this encounter Care Teams Exchange Administrator Relationship Specialty Start Date End Date Haylee Baptiste MD [address] [place] [address] PCP - General 01/21/10 documented as of this encounter
--- OUTSIDE RECORDS SUMMARY | 2023-12-15 12:40 | XMS_ITS | Encounter Summary ---
Author Organization [facility] Address [facility] [place] [address] Care Team Providers Care Microsoft Dynamics Consultant Name Role Phone Haylee Baptiste MD Primary Care Provider [phone] Encounter Details Date Type Department Care Team (Late st Contact Info) Description 01/13/2017 2:30 PM EST - 01/13/2017 11:59 PM [facility] Hospital Encounter XRay at [address] [place] [address] Michael Larsen MD [facility] [place] [address] Rupture of left Achilles tendon, sequela Discharge Disposition: Home Social History Tobacco Use [...] End Date fluticasone propionate (Flonase) 50 mcg/actuation [place], Suspension 1 spray by Each Nare route as needed. 01/05/2015 traMADoL (Ultram) 50 mg tablet Take 50 mg by mouth every 6 hours as needed. 10/14/2013 023 sitaGLIPtin (JANUVIA) 100 mg Tablet Take 100 [...] Pen Inject 38 Units subcutaneously nightly. 08/30/19 glipiZIDE (GLUCOTROL XL) 5 mg Tablet Extended [...] TH Visit (TeleHealth) [place]ology [place] [address] Kati Burnette MD [facility] [place] [address] 01/24/2024 9:30 AM EST Appointment XRay at [address] [place] [phone] Jimmy Swann MD [facility] [place] [address] 01/24/2024 11:00 AM EST Office Visit [place] [address] Regulo Wang PA [facility] [place] [address] 01/24/2024 2:45 PM EST Appointment Mammography at [address] 01/24/2024 3:45 PM EST Office Visit General Surgery at [address] Caitlyn Hirsch MD [facility] [place] [address] 03/20/2024 9:00 AM EST Office Visit Hematology and Oncology at [place] [address] Ericka Forrest [facility] DR [place] [address] 07/29/2024 2:00 PM EDT Office Visit Radiation Oncology at [address] [phone] Kasie Marte MD [facility] [place] [address] documented as of this encounter Procedures Procedure Name Priority Date/Time Associated Diagnosis Comments XR ANKLE MIN 3 VIEWS LEFT Routine 01/13/2017 2:52 PM EST Rupture of left Achilles tendon, sequela documented in this encounter Results * XR Ankle Min 3 views Left (Generic) (01/13/2017 2:52 PM EST) Anatomical Region Laterality Modality Ankle Left Digital Radiogra phy Impressions 01/13/2017 3:56 PM EST No interval change Narrative 01/13/2017 3:56 PM EST EXAMINATION: XR ANKLE MIN 3 VIEWS LEFT (GENERIC) CLINICAL HISTORY: achilles rupture TECHNIQUE: 3 views of the left ankle COMPARISON: November 30, 2016 FINDINGS: Unchanged appearance of an amorphous calcific density projecting 2.4 cm above the mian aspect of the calcaneus, 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 Procedure Note Willian James MD - 01/13/2017 EXAMINATION: XR ANKLE MIN 3 VIEWS LEFT (GENERIC) CLINICAL HISTORY: achilles rupture TECHNIQUE: 3 views of the left ankle COMPARISON: November 30, 2016 FINDINGS: Unchanged appearance of an amorphous calcific density projecting 2.4 cmabove the mian aspect of the calcaneus, favored to represent an avulsedHaglund deformity. IMPRESSION No interval change 3:56 PM Michael Larsen MD IMG DX ORDERABLES documented in this encounter Visit Diagnoses Diagnosis Rupture of left Achilles tendon, sequela documented in this encounter Care Teams Microsoft Dynamics Consultant Relationship Specialty Start Date End Date Haylee Baptiste MD [address] [place] [address] PCP - General 01/21/10 documented as of this encounter
--- OUTSIDE RECORDS SUMMARY | 2023-12-15 12:40 | XMS_ITS | Encounter Summary ---
Author Organization [facility] Address [facility] [place] [address] Care Team Providers Care Television Cabinet Finisher Name Role Phone Haylee Baptiste MD Primary Care Provider [phone] Encounter Details Date Type Department Care Team (Late st Contact Info) Description 03/06/2019 Ancillary Procedure Radiology Library at [facility] [place] [address] Haylee Baptiste MD [address] [place] [address] Social History Tobacco Use Types [...] TH Visit (TeleHealth) Hematology and Oncology at [facility] [place] [phone] Kati Burnette MD [facility] HEMATOLOGY [place] [address] 01/24/2024 9:30 AM EST Appointment XRay at [address] [place] [phone] Jimmy Swann MD [facility] [place] [place] [address] 01/24/2024 11:00 AM EST Office Visit Pain and Spine Center at [place] [address] Regulo Wang PA [facility] [place] [address] 01/24/2024 2:45 PM EST Appointment Mammography at [place] [address] 01/24/2024 3:45 PM EST Office [place] [address] Caitlyn Hirsch MD [facility] [place] [address] 03/20/2024 9:00 AM EST Office Visit Hematology and Oncology at [place] [address] Ericka Forrest, [facility] DR HEMATOLOGY [place] [address] 07/29/2024 2:00 PM EDT Office Visit Radiation Oncology at [address] [phone] Kasie Marte MD [facility] [place] [address] documented as of this encounter Procedures Procedure Name Priority Date/Time Associated Diagnosis Comments FILM LIBRARY STORAGE ONLY MAMMO Routine 03/06/2019 12:00 AM EST documented in this encounter Results * Film Library- Storage Only Mammo (03/06/2019 12:00 AM EST) Narrative RAD - 01/01/2021 1:50 PM EST This exam is auto-finalizing. It's purpose is for storage only. Haylee Baptiste MD IMG FILM LIBRARY ORD ERABLES [place], [place] documented in this encounter Visit Diagnoses Not on filedocumented in this encounter Care Teams Television Cabinet Finisher Relationship Specialty Start Date End Date Haylee Baptiste MD [address] [place] [address] PCP - General 01/21/10 documented as of this encounter
--- OUTSIDE RECORDS SUMMARY | 2023-12-15 12:40 | XMS_ITS | Encounter Summary ---
Author Organization [facility] Address [facility] [place] [address] Care Team Providers Care Auto Body Repair Technician Name Role Phone Haylee Baptiste MD Primary Care Provider [phone] Encounter Details Date Type Department Care Team (Late st Contact Info) Description 10/19/2016 Orders Only [place] [phone] Michael Larsen MD [facility] [place] [address] Left wrist fracture, with routine healing, subsequent encounter Social History Tobacco Use Types Packs/Day [...] TH Visit (TeleHealth) Hematology [place] [phone] Kati Burnette MD [facility] [place] [address] 01/24/2024 9:30 AM EST Appointment XRay at [address] [place] [address] Jimmy Swann MD [facility] [place] [address] 01/24/2024 11:00 AM EST Office Visit Pain and Spine Center at [place] [address] Regulo Wang PA [facility] [place] [address] 01/24/2024 2:45 PM EST Appointment Mammography at [place] [address] 01/24/2024 3:45 PM EST Office Visit General Surgery at [place] [address] Caitlyn Hirsch MD [facility] [place] [address] 03/20/2024 9:00 AM EST Office Visit Hematology and Oncology at [place] [address] Ericka Forrest, [facility] DR HEMATOLOGY [place] [address] 07/29/2024 2:00 PM EDT Office Visit Radiation Oncology at [address] [phone] Kasie Marte MD [facility] [place] [address] documented as of this encounter Results * XR Wrist Complete Min 3 views Left (Generic) (10/19/2016 4:21 PM EDT) Anatomical Region Laterality Modality Left Digital Radiogra phy Impressions 10/19/2016 4:34 PM EDT No fracture identified. Narrative 10/19/2016 4:34 PM EDT EXAMINATION: XR WRIST COMPLETE MIN 3 VIEWS LEFT (GENERIC) CLINICAL HISTORY: check status of healing TECHNIQUE: PA, lateral, oblique, and navicular views of the left wrist. COMPARISON: Radiographs of the left wrist [facility] dated 09/15/2016; outside institution radiographs of the left wrist 09/02/2016. FINDINGS: Anatomic alignment. No radiolucent fracture line is identified, nor periostitis or trabecular sclerosis to suggest a healing fracture, with specific attention to the scaphoid. No sclerotic changes of the scaphoid to suggest avascular process. No radiographically evident soft tissue swelling. No widening of the scapholunate interval. Minimal degenerative changes at the basal joint characterize by small marginal osteophytes again noted. Procedure Note Katya Birto MD - 10/19/2016 EXAMINATION: XR WRIST COMPLETE MIN 3 VIEWS LEFT (GENERIC) CLINICAL HISTORY: check status of healing TECHNIQUE: PA, lateral, oblique, and navicular views of the left wrist. COMPARISON: Radiographs of the left wrist [facility] dated 09/15/2016; outside institution radiographs of the left wrist 09/02/2016. FINDINGS: Anatomic alignment. No radiolucent fracture line is identified, norperiostitis or trabecular sclerosis to suggest a healing fracture, with specificattention to the scaphoid. No sclerotic changes of the scaphoid to suggestavascular process. No radiographically evident soft tissue swelling. No widening ofthe scapholunate interval. Minimal degenerative changes at the basal joint characterize by small marginal osteophytes again noted. IMPRESSION No fracture identified. Michael Larsen MD IMG DX ORDERABLES documented in this encounter Visit Diagnoses Diagnosis Left wrist fracture, with routine healing, subsequent encounter Left wrist fracture, with routine healing, subsequent encounter documented in this encounter Care Teams Auto Body Repair Technician Relationship Specialty Start Date End Date Haylee Baptiste MD [address] [place] [address] PCP - General 01/21/10 documented as of this encounter
--- OUTSIDE RECORDS SUMMARY | 2023-12-15 12:40 | XMS_ITS | Encounter Summary ---
Author Organization [facility] Address [facility] [place] [address] Care Team Providers Care Utility Mechanic Name Role Phone Haylee Baptiste MD Primary Care Provider [phone] Encounter Details Date Type Department Care Team (Late st Contact Info) Description 04/30/2021 Ancillary Procedure Radiology Library at [facility] [place] [phone] Haylee Baptiste MD [address] [place] [address] Social History Tobacco Use Types [...] TH Visit (TeleHealth) Hematology and Oncology at [facility] [place] [phone] Kati Burnette MD [facility] HEMATOLOGY [place] [address] 01/24/2024 9:30 AM EST Appointment XRay at [address] [place] [phone] Jimmy Swann MD [facility] [place] [address] 01/24/2024 11:00 AM EST Office Visit Pain and Spine Center at [place] [address] Regulo Wang PA [facility] [place] [address] 01/24/2024 2:45 PM EST Appointment Mammography at [address] 01/24/2024 3:45 PM EST Office Visit General Surgery at [place] [phone] Caitlyn Hirsch MD [facility] [place] [address] 03/20/2024 9:00 AM EST Office Visit Hematology and Oncology at [place] [phone] Ericka Forrest, [facility] DR HEMATOLOGY [place] [address] 07/29/2024 2:00 PM EDT Office Visit Radiation Oncology at [address] [address] Kasie Marte MD [facility] [place] [address] documented as of this encounter Procedures Procedure Name Priority Date/Time Associated Diagnosis Comments FILM LIBRARY STORAGE ONLY MR HEAD Routine 04/30/2021 12:00 AM EDT documented in this encounter Results * Film Library- Storage Only MR Head (04/30/2021 12:00 AM EDT) Narrative RAD - 05/06/2021 8:15 PM EDT This exam is auto-finalizing. It's purpose is for storage only. Haylee Baptiste MD IMG FILM LIBRARY ORD ERABLES [place], [place] documented in this encounter Visit Diagnoses Not on filedocumented in this encounter Care Teams Utility Mechanic Relationship Specialty Start Date End Date Haylee Baptiste MD [address] [place] [address] PCP - General 01/21/10 documented as of this encounter
--- OUTSIDE RECORDS SUMMARY | 2023-12-15 12:40 | XMS_ITS | Encounter Summary ---
Author Organization [facility] [place] [address] Care Team Providers Care Tub Tender Name Role Phone Haylee Baptiste MD Primary Care Provider [phone] Reason for Referral * Consultation (Urgent) - Closed Specialty Diagnoses / Procedures Referred By Mike jalloh Referred To Contact Neurology Diagnoses Facial paresthesia Paresthesia of arm concern for CVA or Haylee Dunham MD [address] [place] [address] [facility] [address] [place] [phone] Referral ID Status Reason Start Date Expiration Date V isits Requested Visits Authorized [id number] Closed Consult, Test & Treat 04/27/2021 04/27/2022 12 12 Encounter Details Date Type Department Care Team (Latest Contact Info) Description 04/27/2021 Transcribe Orders eDH Incoming Referrals [phone] Haylee Baptiste MD [address] [place], [place] [id number] Facial paresthesia; Paresthesia of arm Social History Tobacco Use Types Packs/Day Years [...] TH Visit (TeleHealth) Hematology and Oncology at [address] Kati Burnette MD [facility] DR [place] [address] 01/24/2024 9:30 AM EST Appointment XRay at [address] Jimmy Swann MD [facility] [place] [place] [address] 01/24/2024 11:00 AM EST Office Visit Pain and Spine Center at [address] Regulo Wang PA [facility] [place] [address] 01/24/2024 2:45 PM EST Appointment Mammography at [place] [address] 01/24/2024 3:45 PM EST Office Visit General Surgery at [address]1000 Caitlyn Hirsch MD [facility] [place] [address] 03/20/2024 9:00 AM EST Office Visit Hematology and Oncology at [place] [phone] Ericka Forrest Curly [facility] DR [place] [address] 07/29/2024 2:00 PM EDT Office Visit Radiation Oncology at [address] [phone] Kasie Marte MD [facility] [place] [address] Scheduled Referrals Name Type Priority Associated Diagnoses Orde r Schedule Referral to Neurology Outpatient Referral Routine Facial paresthesia Paresthesia of arm Ordered: 04/27/2021 documented as of this encounter Visit Diagnoses Diagnosis Facial paresthesia Paresthesia of arm Disturbance of skin sensation documented in this encounter Care Teams Tub Tender Relationship Specialty Start Date End Date Haylee Baptiste MD [address] [place] [address] PCP - General 01/21/10 documented as of this encounter
--- OUTSIDE RECORDS SUMMARY | 2023-12-15 12:40 | XMS_ITS | Encounter Summary ---
Author Organization [facility] [place] [address] Care Team Providers Care Completion Supervisor Name Role Phone Haylee Baptiste MD Primary Care Provider [phone] Encounter Details Date Type Department Care Team (Late st Contact Info) Description 10/06/2018 12:10 PM EDT Ancillary Procedure Radiology Library at [facility] [place] [phone] Kiran Gayle III, MD [facility] [phone] Social History Tobacco Use Types Packs/Day Years [...] TH Visit (TeleHealth) Hematology and Oncology at [facility] [place] [phone] Kati Burnette MD [facility] [place] [id number] 01/24/2024 9:30 AM EST Appointment XRay at [address] [place] [address] Jimmy Swann MD [facility] [place] [address] 01/24/2024 11:00 AM EST Office Visit Pain and Spine Center at [place] [phone] Regulo Wang PA [facility] [place] [address] 01/24/2024 2:45 PM EST Appointment Mammography at [place] [phone] 01/24/2024 3:45 PM EST Office Visit General Surgery at [place] [phone] Caitlyn Hirsch MD [facility] [place] [address] 03/20/2024 9:00 AM EST Office Visit Hematology and Oncology at [place] [phone] Ericka Forrest, [facility] [place] [address] 07/29/2024 2:00 PM EDT Office Visit Radiation Oncology at [address] [phone] Kasie Marte MD [facility] [place] [address] documented as of this encounter Procedures Procedure Name Priority Date/Time Associated Diagnosis Comments FILM LIBRARY STORAGE ONLY CT ABDOMEN AND PELVIS Routine 10/06/2018 12:09 PM EDT documented in this encounter Results * Film Library- Storage Only CT Abdomen & Pelvis (10/06/2018 12:09 PM EDT) Narrative RAD - 10/06/2018 12:09 PM EDT This exam is auto-finalizing. It's purpose is for storage only. Kiran Gayle III, MD IMG FILM LIBRARY O RDERABLES [place], [place] documented in this encounter Visit Diagnoses Not on filedocumented in this encounter Care Teams Completion Supervisor Relationship Specialty Start Date End Date Haylee Baptiste MD [address] [place] [address] PCP - General 01/21/10 documented as of this encounter
--- OUTSIDE RECORDS SUMMARY | 2023-12-15 12:40 | XMS_ITS | Encounter Summary ---
Author Organization [place] [address] Care Team Providers Care Emergency Generator Mechanic Name Role Phone Haylee Baptiste MD Primary Care Provider [phone] Encounter Details Date Type Department Care Team (Late st Contact Info) Description 01/01/2021 Telephone Hematology [place] [phone] Corine Ortiz Social History Tobacco Use Types [...] encounter Miscellaneous Notes * Telephone Encounter - Corine Ortiz - 01/01/2021 12:01 PM EST Patient Name: Nallely Velazquez Patient : 1955 Attn: [facility] Image Library From: [facility] - [phone] Fed-Ex# [id number] - Please overnight [] Urgent [x] For Review [] Please Reply [] Please Recycle Pursuant to the Federal Mammography Quality Standards Act-Section 900.12(c), (4), (ii) Comments: Please send all Mammograms, Ultrasounds & Breast MRIs or any scan pertaining to breast cancer. (CD, Films, Electronic Transfer & Reports) to [facility], [place] [address] If Questions call [phone] Notice of Confidentiality: The documents accompanying this FAX transmission cover contain information from [facility] that is confidential and privileged. The information [...] TH Visit (TeleHealth) Hematology and Oncology at [place] [phone] Kait Burnette MD [facility] DR [place] [address] 01/24/2024 9:30 AM EST Appointment XRay at [address] [place] [address] Jimmy Swann MD [facility] [place] [address] 01/24/2024 11:00 AM EST Office Visit [place] [phone] Regulo Wang PA [facility] [place] [address] 01/24/2024 2:45 PM EST Appointment Mammography at [place] [phone] 01/24/2024 3:45 PM EST Office Visit General Surgery at [address] Caitlyn Hirsch MD [facility] [place] [address] 03/20/2024 9:00 AM EST Office Visit Hematology and Oncology at [place] [phone] Ericka Forrest, [facility] [place] [address] 07/29/2024 2:00 PM EDT Office Visit Radiation Oncology at [address] [phone] Kasie Marte MD [facility] [place] [address] documented as of this encounter Visit Diagnoses Not on filedocumented in this encounter Care Teams Emergency Generator Mechanic Relationship Specialty Start Date End Date Haylee Baptiste MD [address] [place] [address] PCP - General 01/21/10 documented as of this encounter
--- OUTSIDE RECORDS SUMMARY | 2023-12-15 12:40 | XMS_ITS | Encounter Summary ---
Author Organization [facility] Address [facility] [place] [address] Care Team Providers Care Pipe Maker Name Role Phone Haylee Baptiste MD Primary Care Provider [phone] Encounter Details Date Type Department Care Team (Late st Contact Info) Description 11/30/2016 3:30 PM EDT - 11/30/2016 3:34 PM EDT Hospital Encounter XRay at [address] [place] [address] Michael Larsen MD [facility] [place] [address] Closed fracture of left wrist with routine healing, subsequent encounter Discharge Disposition: Home Social History Tobacco Use [...] End Date fluticasone propionate (Flonase) 50 mcg/actuation [place], Suspension 1 spray by Each Nare route [...] TH Visit (TeleHealth) Hematology [place] [address] Kati Burnette MD [facility] [place] [address] 01/24/2024 9:30 AM EST Appointment XRay at [address] [place] [phone] Jimmy Swann MD [facility] [place] [place] [address] 01/24/2024 11:00 AM EST Office Visit Pain [place] [address] Regulo Wang PA [facility] [place] [address] 01/24/2024 2:45 PM EST Appointment [place] [phone] 01/24/2024 3:45 PM EST Office Visit [place] [phone] Caitlyn Hirsch MD [facility] [place] [address] 03/20/2024 9:00 AM EST Office Visit Hematology [place] [phone] Ericka Forrest, [facility] [place] [place] [address] 07/29/2024 2:00 PM EDT Office Visit Radiation Oncology at [address] [phone] Kasie Marte MD [facility] [place] [address] documented as of this encounter Procedures Procedure Name Priority Date/Time Associated Diagnosis Comments XR WRIST 3 VIEWS LEFT Routine 11/30/2016 4:05 PM EDT Closed fracture of left wrist with routine healing, subsequent encounter documented in this encounter Results * XR Wrist Complete Min 3 views Left (Generic) (11/30/2016 4:05 PM EDT) Anatomical Region Laterality Modality Left Digital Radiogra phy Narrative 11/30/2016 4:37 PM EDT EXAMINATION: XR WRIST COMPLETE MIN 3 VIEWS LEFT (GENERIC) CLINICAL HISTORY: s/p scaphoid fx TECHNIQUE: ? COMPARISON: None FINDINGS: Bones: No fracture is present. Scaphoid-small osteophytes arising from the distal pole of the scaphoid. Joints: No dislocation is seen. Basal and scaphoid trapezial trapezoid [STT] joints-osteoarthropathy with osteophyte formation Soft tissue: Diffuse soft tissue swelling. Impression 1. ??No fracture or dislocation 2. ??Diffuse soft tissue swelling. 3. 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 ??However, if the concern for occult fracture remains high, consider repeat radiographs in 10 days. Procedure Note Gerda Yusuf MD - 11/30/2016 EXAMINATION: XR WRIST COMPLETE MIN 3 VIEWS LEFT (GENERIC) CLINICAL HISTORY: s/p scaphoid fx TECHNIQUE: COMPARISON: None FINDINGS: Bones: No fracture is present. Scaphoid-small osteophytes arising from the distal pole of the scaphoid. Joints: No dislocation is seen. Basal and scaphoid trapezial trapezoid [STT] joints-osteoarthropathywith osteophyte formation Soft tissue: Diffuse soft tissue swelling. Impression 1. No fracture or dislocation 2. Diffuse soft tissue swelling. 3. 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 However, if the concern for occult fracture remains high, considerrepeat radiographs in 10 days. Michael Larsen MD IMG DX ORDERABLES documented in this encounter Visit Diagnoses Diagnosis Closed fracture of left wrist with routine healing, subsequent encounter documented in this encounter Care Teams Pipe Maker Relationship Specialty Start Date End Date Haylee Baptiste MD [address] [place] [address] PCP - General 01/21/10 documented as of this encounter
--- OUTSIDE RECORDS SUMMARY | 2023-12-15 12:40 | XMS_ITS | Encounter Summary ---
Author Organization [facility] Address [facility] [place] [address] Care Team Providers Care Silk Printer Name Role Phone Haylee Baptiste MD Primary Care Provider [phone] Encounter Details Date Type Department Care Team (Late st Contact Info) Description 09/22/2018 Ancillary Procedure Radiology Library at [facility] [place] [phone] Darinel Squires MD [address] [place] [address] [place] [address] Social History Tobacco Use Types Packs/Day Years [...] TH Visit (TeleHealth) [place]ology [place] [address] [facility] HEMATOLOGY [place] [address] 01/24/2024 9:30 AM EST Appointment XRay at [address] [place] [phone] [facility] [place] [address] 01/24/2024 11:00 AM EST Office Visit [place] [address] [facility] [place] [address] 01/24/2024 2:45 PM EST [place] [phone] 01/24/2024 3:45 PM EST Office [place] [phone] [facility] [place] [address] 03/20/2024 9:00 AM EST Office Visit [place]ematology [place] [phone] Ericka Forrest, [facility] DR HEMATOLOGY [place] [address] 07/29/2024 2:00 PM EDT Office Visit Radiation Oncology at [address] [phone] Kasie Marte MD [facility] [place] [address] documented as of this encounter Procedures Procedure Name Priority Date/Time Associated Diagnosis Comments FILM LIBRARY STORAGE ONLY CT ABDOMEN AND PELVIS Routine 09/22/2018 12:00 AM EDT documented in this encounter Results * Film Library- Storage Only CT Abdomen & Pelvis (09/22/2018 12:00 AM EDT) Narrative [facility] - 09/26/2018 1:33 PM EDT This exam is auto-finalizing. It's purpose is for storage only. Darinel Squires MD IMG FILM LIBRARY ORD ERABLES [place], [place] documented in this encounter Visit Diagnoses Not on filedocumented in this encounter Care Teams Silk Printer Relationship Specialty Start Date End Date Haylee Baptiste MD [address] [place] [address] PCP - General 01/21/10 documented as of this encounter
--- OUTSIDE RECORDS SUMMARY | 2023-12-15 12:40 | XMS_ITS | Encounter Summary ---
Author Organization [facility] Address [facility] [place] [address] Care Team Providers Care Excelsior Picker Name Role Phone Haylee Baptiste MD Primary Care Provider [phone] Encounter Details Date Type Department Care Team (Late st Contact Info) Description 11/30/2016 Orders [place] [address] Michael Larsen MD [facility] [place] [address] Closed fracture of left wrist with routine healing, subsequent encounter; Rupture of left Achilles tendon, sequela Social History Tobacco Use Types Packs/Day Years [...] TH Visit (TeleHealth) [place]ematology [place] [address] Kati Burnette MD [facility] DR [place] [address] 01/24/2024 9:30 AM EST Appointment XRay at [address] [place] [address] Jimmy Swann MD [facility] [place] [address] 01/24/2024 11:00 AM EST Office Visit Pain and Spine Center at [place] [phone] Regulo Wang PA [facility] [place] [address] 01/24/2024 2:45 PM EST [place]oint[place] [phone] 01/24/2024 3:45 PM EST Office Visit General Surgery at [place] [phone] Caitlyn Hirsch MD [facility] [place] [address] 03/20/2024 9:00 AM EST Office Visit Hematology [place] [address] Ericka Forrest, [facility] DR [place] [address] 07/29/2024 2:00 PM EDT Office Visit Radiation Oncology at [address] [phone] Kasie Marte MD [facility] [place] [address] documented as of this encounter Results * XR Ankle Min 3 views Left (Generic) (11/30/2016 4:06 PM EDT) Anatomical Region Laterality Modality Ankle Left Digital Radiogra phy Impressions 11/30/2016 4:31 PM EDT Unchanged, avulsed Moraima deformity Narrative 11/30/2016 4:31 PM EDT EXAMINATION: XR ANKLE MIN 3 VIEWS LEFT (GENERIC) CLINICAL HISTORY: achilles rupture TECHNIQUE: AP, oblique and lateral COMPARISON: 10/19/2016 FINDINGS: Unchanged, evidence of avulsion fracture at Achilles tendon insertion. Approximately 2.4 cm gap between the attached fragments and the retracted fragments. Prominent thickening of the soft tissue gap in between, probably representing significant Achilles tendinosis and tear. Probably at least 12 mm AP diameter of Achilles tendon or remnant. Large bony concavity at the site of avulsion. Procedure Note Asha Diaz MD - 11/30/2016 EXAMINATION: XR ANKLE MIN 3 VIEWS LEFT (GENERIC) CLINICAL HISTORY: achilles rupture TECHNIQUE: AP, oblique and lateral COMPARISON: 10/19/2016 FINDINGS: Unchanged, evidence of avulsion fracture at Achilles tendon insertion. Approximately 2.4 cm gap between the attached fragments and theretracted fragments. Prominent thickening of the soft tissue gap in between,probably representing significant Achilles tendinosis and tear. Probably at least12 mm AP diameter of Achilles tendon or remnant. Large bony concavity at thesite of avulsion. IMPRESSION Unchanged, avulsed Moraima deformity Michael Larsen MD IMG DX ORDERABLES * XR Wrist Complete Min 3 views [...] left wrist with routine healing, subsequent encounter Rupture of left Achilles tendon, sequela Closed fracture of left wrist with routine healing, subsequent encounter Rupture of left Achilles tendon, sequela documented in this encounter Care Teams Excelsior Picker Relationship Specialty Start Date End Date Haylee Baptiste MD [address] [place] [address] PCP - General 01/21/10 documented as of this encounter
--- OUTSIDE RECORDS SUMMARY | 2023-12-15 12:40 | XMS_ITS | Encounter Summary ---
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 Role Phone Haylee Baptiste MD Primary Care Provider [phone] Reason for Referral * Physical Therapy (Routine) - Closed Specialty Diagnoses / Procedures Referred By Mike jalloh Referred To Contact Diagnoses Cervical spondylosis Dizziness Cody Staton MD [facility] [place] [address] Referral ID Status Reason Start Date Expiration Date V isits Requested Visits Authorized [id number] Closed Evaluate and Treat 05/13/2021 11/09/2021 12 12 * Diagnostic Test (Routine) - Closed Specialty Diagnoses / Procedures Referred By Mike jalloh Referred To Contact Radiology Diagnoses Cervical spondylosis Dizziness Procedures MRI Angiogram Head wo Contrast (Generic) Cody Staton MD [facility] [place] [address] [place] [address] Referral ID Status Reason Start Date Expiration Date V isits Requested Visits Authorized [id number] Closed Specialty Service Requested 06/22/2021 12/19/2021 1 1 * Diagnostic Test (Routine) - Closed Specialty Diagnoses / Procedures Referred By Contac t Referred To Contact Radiology Diagnoses Cervical spondylosis Dizziness Procedures MRI Angiogram Neck w Contrast Cody Staton MD [facility] [place] [address] [place] [address] Referral ID Status Reason Start Date Expiration Date V isits Requested Visits Authorized [id number] Closed Specialty Service Requested 06/22/2021 12/19/2021 1 1 * Diagnostic Test (Routine) - Closed Specialty Diagnoses / Procedures Referred By Contac t Referred To Contact Radiology Diagnoses Cervical spondylosis Dizziness Procedures MRI Cervical Spine wo Contrast (Generic) Cody Staton MD [facility] [place] [address] [place] [address] Referral ID Status Reason Start Date Expiration Date V isits Requested Visits Authorized [id number] Closed Specialty Service Requested 06/18/2021 12/15/2021 1 1 Reason for Visit * Consultation (Urgent) - Closed Specialty Diagnoses / Procedures Referred By Contac t Referred To Contact Neurology Diagnoses Facial paresthesia Paresthesia of arm concern for CVA or Haylee Dunham MD [address] [address] [facility] [address] [place] [id number] Referral ID Status Reason Start Date Expiration Date V isits Requested Visits Authorized [id number] Closed Consult, Test & Treat 04/27/2021 04/27/2022 12 12 Encounter Details Date Type Department Care Team (Late st Contact Info) Description 05/13/2021 4:00 PM EDT Office [place] [address] oCdy Staton MD [facility] [place] [address] Cervical spondylosis; Dizziness Social History Tobacco Use [...] Progress Notes * Cody Staton MD - 05/13/2021 4:00 PM EDT Images from the original note were not included. [facility] [place] [id number] 05/13/2021 Patient name: Nallely Velazquez Date of : 1955 Referring provider: Haylee Baptiste MD [address] [place] [address] HISTORY REASON FOR REFERRAL/CHIEF COMPLAINT: Facial paresthesia. 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 Lives in [facility] with her . Non smoker. No alcohol use. She has occasional headaches. No tinnitus. She has history of hearing loss on left side. She has history of imbalance. She has history of one of her kidney shutting done in the past with no specific etiology determined. PMHx: No past medical history on file. Past Surgical History: Procedure Laterality Date ??? IR NEPHROSTOMY TUBE PLACEMENT PERCUTANEOUS LEFT 09/27/2018 IR Nephrostomy Tube Placement Percutaneous Left 09/27/2018 Justin De La Cruz MD [facility] INTERVENTIONL RAD Family History: Family History [...] to Visit Medication Sig Dispense Refill ??? ondansetron (ZOFRAN-ODT) 4 mg Tablet, Rapid [...] coordination of right and left sided muscles o Sensory - Normal sensations bilaterally. o Skull and Spine/ Gait - Cervical paraspinal spasm left. - Normal gait - Tandem: Minimal imbalance. LABS AND IMAGING Labs GENERAL THYROID: No results found for: TSH, I2MIAKP, FREET4, TT4, THYROIDAB, THGAB FolateNo results found for: SFOLATE ESRNo results found for: SEDRATE CRPNo results found for: CRP B12No results found for: [id number] CKNo results found for: CK Angiotensin ConvertaseNo [...] LDLCHOL, LDLDIRECT MIKALA 65No results found for: MWY52DX ANTI GM1,ANTI SGPG, MAG@RESUFAST (MAGAUTOAB,SGPG,MAGWB,GM1AB)@ HEAVY METAL [...] ANNA1, ANNA2, ANNA3, AGNA1, PCA1, PCA2, PCATYPETR, AMPHIPHYSIN,WGBX6OUH, STRIATMSCLAB, CACHABPQTYPE, CACHABNTYPE, ACHRBINDAB, NEUROKCHAB, NMDARECEPTOR, WVH55MC THROMBOSIS HOMEOCYSTEINENo results found for: HOMOCYSTEINE THROMBOSIS PANELNo results found for: ACAIGM, P7EFITOEDHT FACTOR V LEIDEN No components found for: FACTORVLEIDEN PROTEIN C,SNo components found for: PROTEINC, PROTEINS ANTITHROMBIN IIINo components found for: ANTITHROMBINIII Miscellaneous Send outsNo results found for: MISCSENDOUT, MISCMAYO MRI Brain: Chronic microvascular disease. ASSESSMENT, PLAN & RECOMMENDATIONS ASSESSMENT: 66 Y [...] left side. MRI Brain shows chronic microvascular disease. IMPRESSION: Facial paresthesiae left, likely cervicogenic. PLAN/RECOMMENDATIONS: ??? Her symptoms are likely cervicogenic related to vestibulo-cervical dysfunction on left side. ??? She was given referral for neck PT to be done locally. ??? Will get MRI C spine/ MRA Head and neck to evaluate cervical spine and vasculature. ??? Flexeril HS for neck muscle relaxants. Symptomatic measures discussed. Continue aspirin + plavix. Lipid profile on follow up with PCP. Blood sugar control. ??? Follow up in a month. Cody Staton MD Department of Neurology [facility] documented in this encounter Plan of Treatment Upcoming Encounters Date Type Department Care Team (Late st Contact Info) Description 01/09/2024 2:20 PM EST TH Visit (TeleHealth) Hematology [place] [address] Kati Burnette MD [facility] [address] [place] [address] 01/24/2024 9:30 AM EST Appointment XRay at [address] [place] [address] Jimmy Swann MD [facility] [place] [address] 01/24/2024 11:00 AM EST Office Visit Pain and Spine Center at [address] Regulo Wang PA [facility] [place] [address] 01/24/2024 2:45 PM EST Appointment Mammography at [address] 01/24/2024 3:45 PM EST Office Visit General Surgery at [address] Caitlyn Hirsch MD [facility] [place] [place] [address] 03/20/2024 9:00 AM EST Office Visit Hematology and Oncology at [place] [address] Ericka Forrest [facility] [place] [address] 07/29/2024 2:00 PM EDT Office Visit Radiation Oncology at [address] [address] Kasie Marte MD [facility] [place] [address] Scheduled Referrals Name Type Priority Associated Diagnoses Orde r Schedule Referral to Physical Therapy Outpatient Referral Routine Cervical spondylosis Dizziness Ordered: 05/13/2021 documented as of this encounter Results * MRI Angiogram Head [...] who have questions please contact the health medicare insurance specialist that requested your imaging first. ? Electronically signed by: Meka Mcclendon [facility] ([phone]), at 06/29/2021 2:08 PM Narrative 06/29/2021 2:08 PM EDT EXAMINATION: MRI ANGIOGRAM HEAD WO CONTRAST (GENERIC) CLINICAL HISTORY: Dizziness, persistent/recurrent, cardiac or vascular cause suspected TECHNIQUE: [id number] MRA of the head was performed without [...] normal in course and caliber throughout. 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 No aneurysm. Procedure Note Meka Mcclendon MD - 06/29/2021 EXAMINATION: MRI ANGIOGRAM HEAD WO CONTRAST (GENERIC) CLINICAL HISTORY: Dizziness, persistent/recurrent, cardiac or vascularcause suspected TECHNIQUE: [id number] MRA of the head was performed without [...] normal in course and caliber throughout. MRA cheesh-na of [place]: There is normal flow-related enhancement [...] posterior communicating arteries withhypoplastic or absent P1 MAINTENANCE WORKER HOUSE TRAILER segments. No aneurysm. IMPRESSION 1. Right vertebral [...] patients who have questions please contactthe health medicare insurance specialist that requested your imaging first. Electronically signed by: Meka Mcclendon [facility]([phone]), at 06/29/2021 2:08 PM Cody Staton MD IM MRI ORDERABLES * MRI Angiogram Neck w [...] who have questions please contact the health medicare insurance specialist that requested your imaging first. Thank you for letting us participate in the care of this patient. ??If you are a health care provider and have any questions regarding this report, please contact the number below. ??For patients who have questions please contact the health medicare insurance specialist that requested your imaging first. ? Electronically signed by: Meka Mcclendon [facility] ([phone]), at 06/30/2021 7:59 AM Narrative 06/30/2021 7:59 AM EDT EXAMINATION: MRI ANGIOGRAM NECK W CONTRAST CLINICAL HISTORY: cervicogenic dizziness TECHNIQUE: [id number] MRA of the head was performed without [...] normal in course and caliber throughout. 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 No aneurysm. Procedure Note Meka Mcclendon MD - 06/30/2021 EXAMINATION: MRI ANGIOGRAM NECK W CONTRAST CLINICAL HISTORY: cervicogenic dizziness TECHNIQUE: [id number]-[id number] MRA of the head was performed without [...] normal in course and caliber throughout. MRA cheesh-na of [place]: There is normal flow-related enhancement [...] posterior communicating arteries withhypoplastic or absent P1 MAINTENANCE WORKER HOUSE TRAILER segments. No aneurysm. IMPRESSION 1. Right vertebral [...] patients who have questions please contactthe health medicare insurance specialist that requested your imaging first. Thank you for letting us participate in the care of this patient. If youare a health care provider and have any questions regarding this report,please contact the number below. For patients who have questions please contactthe health medicare insurance specialist that requested your imaging first. Electronically signed by: Meka Mcclendon [facility]([phone]), at 06/30/2021 7:59 AM Cody Staton MD IM MRI ORDERABLES * MRI Cervical Spine wo [...] who have questions please contact the health medicare insurance specialist that requested your imaging first. ? Electronically signed by: Alberto Jasso MD, [facility] ([phone]), at 06/29/2021 2:25 PM Narrative 06/29/2021 2:25 [...] patients who have questions please contactthe health medicare insurance specialist that requested your imaging first. 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
--- OUTSIDE RECORDS SUMMARY | 2023-12-15 12:40 | XMS_ITS | Encounter Summary ---
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 Role Phone Haylee Baptiste MD Primary Care Provider [phone] Reason for Referral * Diagnostic Test (Routine) - Closed Specialty Diagnoses / Procedures Referred By Mike jalloh Referred To Contact Radiology Diagnoses Obstruction of left ureter Procedures IR Nephrostomy Tube Placement Percutaneous Left IR Nephrostomy Exchange Left Kevin Zhang MD [address] [place] [address] [place] [address] Referral ID Status Reason Start Date Expiration Date V isits Requested Visits Authorized [id number] Closed Specialty Service Requested 09/26/2018 09/26/2019 1 1 Reason for Visit * Diagnostic Test (Routine) - Closed Specialty Diagnoses / Procedures Referred By Mike jalloh Referred To Contact Radiology Diagnoses Obstruction of left ureter Procedures IR Nephrostomy Tube Placement Percutaneous Left IR Nephrostomy Exchange Left Kevin Zhang MD [address] [place] [address] [place] [address] Referral ID Status Reason Start Date Expiration Date V isits Requested Visits Authorized [id number] Closed Specialty Service Requested 09/26/2018 09/26/2019 1 1 Encounter Details Date Type Department Care Team (Latest Contact Info) Description 09/27/2018 10:03 AM EDT - 09/27/2018 11:59 PM EDT Hospital [place] [phone] Kevin Zhang MD [address] [place] [id number] Obstruction of left ureter Discharge Disposition: Home Social History Tobacco Use [...] Sign Reading Time Taken Comments Blood Pressure 176/88 09/27/2018 2:28 PM EDT Pulse 101 09/27/2018 12:40 PM EDT Temperature 37.6 ??C (99.6 ??F) 09/27/2018 12:57 PM E DT Respiratory Rate 18 09/27/2018 2:28 PM EDT Oxygen Saturation 93% 09/27/2018 2:28 PM EDT Inhaled Oxygen Concentration - - Weight - - Height - - Body Mass Index - - documented in this encounter Discharge Instructions * Discharge Instructions* Amber Mireles RN - 09/27/2018 12:02 PM EDT Images from the original note were not included. [facility] Vascular and Interventional Radiology Discharge Instructions for Nephrostomy (Kidney) Tube Care You have had a nephrostomy (kidney) tube placed because you have a blockage of urine flow between your kidney and bladder. The nephrostomy tube will allow urine to drain from your kidney outside intoa bag or inside into your bladder. If your tube is connected to a drainage bag it is important to empty it regularly. A nephrostomy tube is a thin catheter placed into your kidney to drain urine. You may have one tubein a kidney or two tubes, one in each kidney. The urine collects in a bag attached to the tube. In most cases, the bag is attached to your leg. Sometimes the catheter tube has a valve that lets you drain the urine into the toilet or other container. You may need a nephrostomy tube if you have a blockage or a hole in your urinary tract. The blockage may be caused by a kidney stone, infection, scar tissue, or a tumor. If you have only one tube, you still need to urinate. Your other kidney will still produce urine that will drain into your bladder. Having a nephrostomy tube in for a long time increases the risk of getting an infection. Nephrostomy tube care focuses on preventing infection. How can you care for yourself at home? ?? Wash your hands before you handle the nephrostomy tube. ?? Clean the area around the tube with soap and water every day. ?? Keep the drainage bag lower than your kidney to keep urine from backing up. ?? You can clean the bag after removing it from the tube. Use another container to collect your urine while you clean the bag. To clean the bag, fill it with 2 parts vinegar to 3 parts water, and letit stand for 20 minutes. Then empty it out, and let it air dry. ?? Empty the drainage bag before it is completely full or every 2 to 3 hours. ?? Do not swim or take baths while you have a nephrostomy tube. You can shower after wrapping the end of the nephrostomy tube with plastic wrap. ?? Change the dressing around the nephrostomy tube about every 3 days or when it gets wet or dirty.A nurse will teach you how to change it. Activity: You may be sore for several days after the tube is inserted. This may limit your activity. You should be careful to avoid activity that causes a pulling sensation, pain or kinking of the tube. When to call your healthcare provider: ??? There may be a little blood in the urine after the tube is placed or changed. Contact your healthcare provider if the bleeding doesn???t stop in a couple of days or if the drainage becomes brightred. ??? If urine or blood leaks around the tube, or poor drainage into the bag ??? If the tube stops draining urine (if attached to a bag system) ??? If skin around the tube is red or irritated or if you see any swelling or drainage around the tube. ??? If you have shaking chills. ??? If you have a fever equal to or greater than 101 degrees Fahrenheit (if these symptoms occur and your tube has been capped you should uncap it and connect to a drainage bag). ??? If you have unusual pain in your flank or at the tube site. ??? A faint urine smell is often present, but if the smell becomes strong call your healthcare provider. ??? Decreased drainage into the bag. ??? Occasionally your MD's may want you to flush your tube. Please call MD's first before attempting this. We will send you home with 5 flushes. Please call for instructions. Tube Care: ??? You may take a shower but you must cover the dressing with plastic wrap to keep it dry. It may be easier to take a sponge bath. You may NOT take a tub bath or swim. ??? It is important that you take care of your tube. It can be pulled out if it is caught on something. If you think the tube is partly pulled out or if it comes out completely, we can usually put itback in easily if you come to see us within 12-24 hours. ??? It is important to keep the skin around the tube healthy. You should clean the area with soap and water a minimum of three times per week. Replace the gauze dressing after you have cleaned and completely dried the skin. ??? We will schedule regular tube changes for you to avoid the tube becoming blocked. You will receive these follow-up appointments in the mail (usually every 3 months). When to call the Interventional Radiology Department: Please call with any questions or concerns. If it is during regular office hours, please call [phone]. If it is after regular office hours, or on weekends or holidays, please call [phone] and ask to speak to the [employer] refrigeration plant cork insulator for Interventional Radiology. You have received medication during your procedure to help lessen anxiety and keep you comfortable.These medications affect judgement and reaction time. We recommend that you do not drive, operate equipment, sign any important documents, or smoke unattended for 24 hours following your procedure. Because of the sedation, be careful on stairs, as you may be unsteady on your feet. You may resume your regular diet as tolerated. IV site -- slight redness, or tenderness is normal, you can use a warm compress. If tenderness and redness increases or foul drainage occurs, please contact your M. D. Revised 10/14/15 documented in this encounter Medications at Time of Discharge Medication Sig Dispensed Refills Start Date End Date fluticasone propionate (Flonase) 50 mcg/actuation [place], Suspension 1 spray by Each Nare route [...] as of this encounter Progress Notes * Amber Mireles RN - 09/27/2018 7:51 AM EDT [facility] NUR[facility] DATABASE Name: NALLELY VELAZQUEZ Date of : 1955 AGE: 63 y.o. [address]: [address] [place] [phone] (home) [phone] (work) Mobile: Telephone Information: Referring Provider: Kevni Zhang REASON FOR VISIT: Order Questions Answers Where will study be performed? [facility] Radiology [120] Reason for exam and clinical history: L ureteral obstruction, L hydronephrosis faild ureteral stentplacement ,no fever wbc resolved persistent pain Exam/Procedure requested: L PCN Placement Is the patient on anticoagulant / anitplatelet therapy ? No Plan Planned procedure: Left Nephrostomy Catheter Placement (09/27/18650) Labs to be performed day of procedure: No labs (09/27/18650) Sedation: moderate (conscious sedation) (09/27/18650) Prophylactic antibiotic : Other (see comments)(Patient on Ceftriaxone at [facility]. If not given today, will give Cipro) (09/27/18650) Contrast: Gadavist (09/27/18650) Additional medications for procedure: Lidocaine (09/27/18650) Planned access site: Left Flank (09/27/18650) Position: Prone (09/27/18650) Consent: Pending (09/27/18650) Allergies Allergen Reactions ??? Iodine And Iodide Containing Products Anaphylaxis ??? Codeine Phosphate Nausea And Vomiting ??? Meperidine Hcl Nausea And Vomiting Nausea/Vomiting ??? Morphine Sulfate Nausea And Vomiting ??? Oxaprozin Nausea And Vomiting ??? Prednisone Rash CIS - Rash with dose greater than 20mg. ??? Sulindac Nausea And Vomiting Pertinent PMH: Patient Active Problem List Diagnosis Code ??? Achilles tendon tear, left S86.019A ??? Type 2 diabetes mellitus with hyperglycemia, with long-term current use of insulin E11.65, Z79.4 ??? Hypertension I10 ??? senior care current use of antithrombotics/antiplatelets Z79.02 ??? 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 Left hand pain M79.642 ??? Closed fracture of left wrist S62.102A Pertinent PSH: No past surgical history on file. Date/Procedure Meds given/comments 09/27/2018 Left PCN Placement Fentanyl 200 mcg IV, versed 4 mg IV, hydralazine 10mg IV, ciprofloxacin 400mg IV, ondansetron 4mg IV, Laboratory Results: Lab Results Component Value Date CREATININE 0.93 09/06/2016 Lab Results Component Value Date K 4.2 09/06/2016 Lab Results Component Value Date PLATELET 336 09/06/2016 Medications: Prior to Admission medications Medication Sig Start Date End Date Taking? Authorizing Provider ondansetron (ZOFRAN-ODT) 4 mg Tablet, Rapid Dissolve DISSOLVE ONE TABLET ON THE TONGUE EVERY 8 HOURS NEEDED FOR NAUSEA VOMITING 09/03/16 PROVIDER, HISTORICAL sitaGLIPtin (JANUVIA) 100 mg Tablet Take 100 mg by mouth daily. PROVIDER, HISTORICAL nabumetone (RELAFEN) 750 mg Tablet Take 750 mg by mouth 2 times daily. PROVIDER, HISTORICAL isosorbide mononitrate (IMDUR) 30 mg Tablet Sustained Release 24 hr Take 30 mg by mouth daily. PROVIDER, HISTORICAL losartan (COZAAR) 100 mg Tablet Take 100 mg by mouth daily. PROVIDER, HISTORICAL clopidogrel (PLAVIX) 75 mg Tablet Take 75 mg by mouth daily. PROVIDER, HISTORICAL insulin detemir (LEVEMIR) Insulin Pen Inject 38 Units subcutaneously nightly. PROVIDER, HISTORICAL glipiZIDE (GLUCOTROL XL) 5 mg Tablet Extended Rel 24 hr Take 5 mg by mouth daily. PROVIDER, HISTORICAL meTOPROLOL succinate (TOPROL-XL) 25 mg Tablet Sustained Release 24 hr Take 25 mg by mouth daily. PROVIDER, HISTORICAL omeprazole (PRILOSEC) 20 mg capsule 20MG, PO, Once daily 02/23/06 meclizine (ANTIVERT) 25 mg tablet 25MG, PO, Three times daily PRN 02/23/06 atorvastatin (LIPITOR) 80 mg tablet 80MG = 1 Tablet(s), PO, Once daily 02/23/06 ASPIRIN ORAL 02/23/06 documented in this encounter H&P Notes * Buddy Velasquez P - 09/27/2018 6:41 AM EDT Images from the original note were not included. INTERVENTIONAL RADIOLOGY FOCUSED H&P and PRE-PROCEDURE NOTE: PCP: Haylee Baptiste MD Referring Provider: Kevin Zhang Planned Procedure: Planned procedure: Left Nephrostomy Catheter Placement Procedure Indication: Order Questions Answers Where will study be performed? [facility] Radiology [120] Reason for exam and clinical history: L ureteral obstruction, L hydronephrosis faild ureteral stentplacement ,no fever wbc resolved persistent pain Exam/Procedure requested: L PCN Placement Is the patient on anticoagulant / anitplatelet therapy ? No Presenting Diagnosis/ Complaint: Nallely Velazquez is a 63 y.o. 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 The patient subsequently underwent left ureteral double J stent placement by urology. Patients symptoms initially resolved, but on 09/26/18 the patients flank pain recurred and a follow up Renal US showing persistent hydronephrosis with a leukocytosis; no fever. IR is consulted for left nephrostomy catheter placement as a downand back from [facility]. Past Medical/Surgical History: Patient Active Problem List Diagnosis Code ??? Achilles tendon tear, left S86.019A ??? Type 2 diabetes mellitus with hyperglycemia, with long-term current use of insulin E11.65, Z79.4 ??? Hypertension I10 ??? 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 Left hand pain M79.642 ??? Closed fracture of left wrist S62.102A No past medical history on file. No past surgical history on file. Medications: Current Outpatient Medications on File Prior to Encounter Medication Sig Dispense Refill ??? ondansetron (ZOFRAN-ODT) [...] facility-administered medications on file prior to encounter. Allergies: Iodine and iodide containing products; Codeine phosphate; Meperidine hcl; Morphine sulfate; Oxaprozin; Prednisone; and Sulindac Social History and Habits: Social History Socioeconomic History ??? Marital status: Spouse name: Not on file ??? Number of children: Not on file ??? Years of education: Not on file ??? Highest education level: Not on file Occupational History ??? Not on file Social Needs ??? Financial resource strain: Not on file ??? Food insecurity: Worry: Not on file Inability: Not on file ??? Transportation needs: Medical: Not on file Non-medical: Not on file Tobacco Use ??? Smoking status: Never Smoker ??? Smokeless tobacco: Never Used Substance and Sexual Activity ??? Alcohol use: No ??? Drug use: No ??? Sexual activity: Not on file Lifestyle ??? Physical activity: Days per week: Not on file Minutes per session: Not on file ??? Stress: Not on file Relationships ??? Social connections: Talks on phone: Not on file Gets together: Not on file Attends samaritan service: Not on file Active member of club or organization: Not on file Attends meetings of clubs or organizations: Not on file Relationship status: Not on file ??? Intimate partner violence: Fear of current or ex partner: Not on file Emotionally abused: Not on file Physically abused: Not on file Forced sexual activity: Not on file Other Topics Concern ??? Not on file Social History Narrative ??? Not on file Significant Family History: Family History Problem Relation Age of Onset ??? Heart Disease Mother ??? Diabetes Mother ??? Diabetes Father ??? Cancer Neg Hx Pertinent ROS: as per HPI Labs: Lab Results Component Value Date WBC 14.9 (H) 09/06/2016 HCT 42.2 09/06/2016 PLATELET 336 09/06/2016 BUN 11 09/06/2016 CREATININE 0.93 09/06/2016 Imaging: CT of the Abdomen & Pelvis - 09/22/18 (Outside Study) INTERVENTIONAL RADIOLOGY FOCUSED H&P: Procedure: Planned procedure: Left Nephrostomy Catheter Placement The patient's history and physical exam have been reviewed and completed. There has been no interval change from that of the pre-operative history and physical exam done within the last 30 days. Physical Exam: Cardiovascular: Regular, Normal Pulmonary: Breath sounds clear to auscultation The planned procedure (and sedation plan if appropriate) , its benefits and risks, and alternativeswere discussed with the patient. The patient consented to the procedure. PRE-SEDATION ASSESSMENT: Sedation Plan: moderate (conscious sedation) ASA: 2: Patient with mild systemic disease Mallampati: II: tonsillar pillars are blocked by the tongue Confirm NPO status: Yes History of anesthetic complications: No Current medications reviewed: Yes Allergies reviewed: Yes Assessment: 63 y.o. female with a past medical history significant for diabetes mellitus, coronary artery disease, hyperlipidemia, amongst others, who presented to [facility] on 09/22/18 with left flank pain with CT at that time demonstrating left hydronephrosis without calculus. The patient subsequently underwent left ureteral double J stent placement by urology. Patients symptoms initially resolved, but on 09/26/18 the patients flank pain recurred and a follow up Renal US showing persistent hydronephrosis. IR is consulted for left nephrostomy catheter placement as a down and back from [facility]. Plan: Plan Planned procedure: Left Nephrostomy Catheter Placement Labs to be performed day of procedure: No labs Sedation: moderate (conscious sedation) Prophylactic antibiotic : Other (see comments)(Patient on Ceftriaxone at [facility]. If not given today, will give Cipro) Contrast: Gadavist Additional medications for procedure: Lidocaine Planned access site: Left Flank Position: Prone Consent: Pending Anaphylaxis secondary to iodinated contrast. 09/27/2018 documented in this encounter Nursing Notes * Amber Mireles RN - 09/27/2018 12:02 PM EDT To procedure room 3 via stretcher. Onto table supine (position) All monitors, O2, safety strap in place. Med's per protocol. documented in this encounter Plan of Treatment Upcoming Encounters Date Type Department Care Team (Late st Contact Info) Description 01/09/2024 2:20 PM EST TH Visit (TeleHealth) [place] [address] Kati Burnette MD [facility] [address] [place] [address] 01/24/2024 9:30 AM EST Appointment XRay at [address] [place] [phone] Jimmy Swann MD [facility] [place] [address] 01/24/2024 11:00 AM EST Office Visit Pain and Spine Center at [place] [phone] Regulo Wang PA [facility] [place] [address] 01/24/2024 2:45 PM EST Appointment [place] [phone] 01/24/2024 3:45 PM EST Office [place] [phone] Caitlyn Hirsch MD [facility] [place] [address] 03/20/2024 9:00 AM EST Office Visit Hematology [place] [phone] Ericka Forrest [facility] DR [place]Y [place] [address] 07/29/2024 2:00 PM EDT Office Visit Radiation Oncology at [address] [phone] Kasie Marte MD [facility] [place] [address] documented as of this encounter Procedures Procedure Name Priority Date/Time Associated Diagnosis Comments POCT GLUCOSE Routine 09/27/2018 2:15 PM EDT IR NEPHROSTOMY TUBE PLACEMENT PERCUTANEOUS LEFT Routine 09/27/2018 12:54 PM EDT Obstruction of left ureter HC BODY FLUID CULTURE Routine 09/27/2018 12:15 PM EDT BODY FLUID CULTURE, AEROBIC Routine 09/27/2018 12:15 PM EDT documented in this encounter Results * POCT Glucose (09/27/2018 2:15 PM EDT) Glucose, POC 99 65 - 199 mg/dL [facility] Comment: Supplemental ranges: <140 mg/dL before meals <180 mg/dL all other times of the day Blood specimen (specimen) 09/27/2018 2:15 PM EDT 09/27/2018 2:15 PM EDT Kevin Zhang MD POINT OF CARE TEST [facility] [place] [address] * IR Nephrostomy Tube Placement Percutaneous Left (09/27/2018 12:54 PM EDT) Anatomical Region Laterality Modality X-Ray Angiograph y Narrative 09/27/2018 3:02 PM EDT IR PROCEDURE NOTE Procedure: Left Nephrostomy Catheter Placement Indication for Procedure: Left Hydronephrosis. ??Left Flank Pain. ?? Leukocytosis. ?? Nallely Velazquez is a 63 y.o. 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 ??The patient subsequently underwent left ureteral double J stent placement by urology. ?? Patients symptoms initially resolved, but on 09/26/18 the patients flank pain recurred and a follow up Renal US showing persistent hydronephrosis with a leukocytosis; no fever. ??IR is consulted for left nephrostomy catheter placement as a down and back from [facility]. ?? Informed Consent: After discussing risks (including infection, hemorrhage, and renal injury), and benefits, patient consented to the procedure. ?? Method of Sedation: Due to the painful nature of the procedure, split doses of fentanyl and versed were administered by the IR nurse during continuous monitoring of pulse, blood pressure and oxygen saturation. ?? Technique: Patient placed prone on angiographic table and after sterile prep, and after 7cc 1% lidocaine SQ anesthesia, under ultrasound guidance, a 21 ga needle was advanced into the lower pole calyx. Dotarem contrast injection and spot image confirmed. ??An .018 inch wire was advanced into the renal pelvis. ??The inner components of a 6-Fr coaxial sheath were advanced. ??Contrast injection performed. ??The 0.018 wire was replaced and the coaxial component removed. ??A 6 Fr triaxial sheath was placed into the lower pole calyx. ??The inner dilator/stiffener was removed, and an .035 inch Amplatz guidewire was advanced through the 6 Fr sheath. Sheath was removed, and over the .035 inch wire, an 8 Fr dilator and then 8Fr locking pigtail nephrostomy tube was advanced. ??Pigtail formed and locked, confirmed in collecting system with contrast injection and spot image, and .018 inch wire removed. ?? Catheter was sutured to the skin and left to gravity drainage. ??Patient tolerated the procedure well and there were no immediate complications. Medications: Fentanyl 200 mcg IV, Versed 4 mg IV, Hydralazine 10 mg IV, Ondansetron 4 mg IV, 1% Lidocaine <10ccs subcutaneous. Antibiotic Prophylaxis: Ciprofloxacin 400 mg IV ? Contrast: 25 cc Dotarem. Fluoro: 2.8 minutes, 12.8 mGray, 177.74 uGy*m2 Est Blood Loss: <5cc. Complications: ??No immediate. Findings: 1. Mild Left hydronephrosis by ultrasound 2. double-J Left Ureteral Stent partially visualized with proximal pigtail in left renal pelvis 3. Left 8 Fr Nephrostomy Catheter placed, with pigtail in left renal pelvis. 4. Serosanguinous fluid obtained. Submitted for culture. Impression: Successful Left 8-Fr Nephrostomy Catheter Placement Resident/Fellow: ??Dr. Buddy Velasquez. Attending: Dr. Justin De La Cruz. I, Dr. De La Cruz, was present throughout the procedure. I was present during the intraservice time as documented by the IR Nurse. ?? Keivn Zhang MD IMG IR ORDERABLES * Body Fluid Culture, Aerobic (09/27/2018 12:15 PM EDT) Body Fluid Culture No growth [facility] Fluid specimen (specimen) 09/27/2018 12:15 PM EDT 09/27/2018 1:55 PM EDT Comment:URINE DURING LEFT NE PHROSTOMY TUBE PLACMENT Narrative Resulting Agency Comment Spec In Lab Justin De La Cruz MD MICROBIOLOGY - [place] ORDERABLES [facility] [place] [address] documented in this encounter Visit Diagnoses Diagnosis Obstruction of left ureter documented in this encounter Administered Medications Inactive Administered Medications - up to 3 most recent administrations Medication Order MAR Action Action Date Dose Rate Site ciprofloxacin (CIPRO) 400 mg in dextrose 5% 200 mL 400 mg, Intravenous, ONCE, 1 dose, On Chiquis 09/27/18 at 1130, Administer over 60 Minutes, Redose every 8 hours if CrCl is greater than 20. Redose every 12 hours if CrCl is less than 20., Angio/IR (Day of Procedure), Indication for (Active or Suspected): Prophylaxis, Restricted Antibiotic: Please indicate the most appropriate choice: Pre-approved Indication (State the indication in Comments field) / Prophylaxis New Bag 09/27/2018 11:33 AM EDT 400 mg 200 mL/hr fentaNYL 50 mcg/mL multi-dose injection 25-50 mcg, Intravenous, EVERY 5 MIN PRN, Starting on Chiquis 09/27/18 at 1112, Until Chiquis 09/27/18 at 1445, Pain, per unit protocol, - Start dose 50 mcg (reduce dose to 25 mcg if history of sedation sensitivity). - Titration dose 25-50 mcg IV, (based on patient response) every 3 minutes PRN, to maintain procedural pain less than 2 per pain Scale. Maximum dose: 50 mcg/dose, 250 mcg/hour For use in Interventional Radiology (IR) only for procedural sedation with direct provider supervision and verbal order., Angio/IR (Intra-Procedure), Routine Given 09/27/2018 12:45 PM EDT 25 mcg Given 09/27/2018 12:29 PM EDT 25 mcg Given 09/27/2018 12:21 PM EDT 50 mcg gadoterate meglumine (DOTAREM) 0.5 mmol/mL (376.9 mg/mL) injection 50 mL 50 mL, Intravenous, ONCE, 1 dose, On Chiquis 09/27/18 at 1100, For use in Left Nephrostomy Placement. Intra-Urinary Contrast administration, Routine Given 09/27/2018 11:45 AM EDT 25 mLs hydrALAZINE (APRESOLINE) injection 10 mg 10 mg, Intravenous, EVERY 6 HOURS PRN, Starting on Chiquis 09/27/18 at 1156, Until Mon09/28/18 at 0434, High Blood Pressure Given 09/27/2018 12:08 PM EDT 10 mg HYDROmorphone (DILAUDID) injection 0.5 mg 0.5 mg, Intravenous, ONCE, 1 dose, On Chiquis 09/27/18 at 1415, Routine Given 09/27/2018 2:15 PM EDT 0.5 mg lidocaine (XYLOCAINE) 10 mg/mL (1 %) injection 10 mg 10 mg, Subcutaneous, ONCE, 1 dose, On Chiquis 09/27/18 at 1130, For use in Interventional Radiology (IR) only for procedure with direct provider supervision and verbal order., Angio/IR (Intra-Procedure), Routine Given 09/27/2018 12:08 PM EDT 10 mg midazolam (PF) (VERSED) multi-dose injection 0.5-1 mg 0.5-1 mg, Intravenous, EVERY 3 MIN PRN, Starting on Chiquis 09/27/18 at 1112, Until Chiquis 09/27/18 at 1445, Sleep, - Start dose; 1 mg (Reduce dose to 0.5 mg if history of sedation sensitivity). - Titration dose: 0.5 mg - 1 mg (based on patient response) every 3 minutes PRN to obtain RASS score of -3. Maximum dose: 1 mg per dose, 5 mg/hour. For use in Interventional Radiology (IR) only for procedural sedation with direct provider supervision and verbal order., Angio/IR (Intra-Procedure), Routine Given 09/27/2018 12:30 PM EDT 0.5 mg Given 09/27/2018 12:21 PM EDT 0.5 mg Given 09/27/2018 12:12 PM EDT 1 mg ondansetron (ZOFRAN) injection 4 mg 4 mg, Intravenous, EVERY 8 HOURS PRN, Starting on Chiquis 09/27/18 at 1100, Until Mon09/28/18 at 0434, Nausea, May give an additional 4 mg if ineffective after 30 minutes, Routine Given 09/27/2018 11:29 AM EDT 4 mg prochlorperazine (COMPAZINE) injection 10 mg 10 mg, Intravenous, EVERY 6 HOURS PRN, Starting on Chiquis 09/27/18 at 1154, Until 8/23/19 at 0434, Nausea, STAT Given 09/27/2018 1:59 PM EDT 10 mg Left Arm documented in this encounter Care Teams Jointer Machine Operator Relationship Specialty Start Date End Date Haylee Baptiste MD [address] [place] [address] PCP - General 01/21/10 documented as of this encounter
--- OUTSIDE RECORDS SUMMARY | 2023-12-15 12:40 | XMS_ITS | Encounter Summary ---
Author Organization [facility] [place] [address] Care Team Providers Care Manager Regulatory Name Role Phone Haylee Baptiste MD Primary Care Provider [phone] Reason for Visit * Reason Comments Follow-up L ACHILLES RUPTURE, L WRIST FX Encounter Details Date Type Department Care Team (Late st Contact Info) Description 11/30/2016 4:30 PM EDT Office [place] [address] Michael Larsen MD [facility] [place] [address] Rupture of left Achilles tendon, sequela Social [...] Sign Reading Time Taken Comments Blood Pressure 127/78 11/30/2016 4:15 PM EDT Pulse 89 11/30/2016 4:15 PM EDT Temperature - - Respiratory Rate - - Oxygen Saturation - - Inhaled Oxygen Concentration - - Weight 82.6 kg (182 lb) 11/30/2016 4:15 PM EDT v erbal Height 157.5 cm (5' 2) 11/30/2016 4:15 PM EDT v erbal Body Mass Index 33.29 11/30/2016 4:15 PM EDT documented in this encounter Progress Notes * Britt Munguia PA - 11/30/2016 4:30 PM EDT Chief complaint: FU post left achilles rupture and left scaphoid fracture 09/02/16 Problem List Items Addressed This Visit Achilles tendon tear, left Relevant Orders XR Ankle Min 3 views Left (Generic) History of present illness: Nallely Velazquez is a 61 y.o. year-old female reporting 11 weeks post fall in which she obtained left achilles rupture, and left scaphoid fracture. She is doing well.She reports that her foot pain is marginal. She denies wrist pain. She is continuing to experience weakness of her left hand. She has been progressing in PT. She is has walked out of the boot some in PT. She has only had one OT appointment, but has been working at home. Past medical history: Patient Active Problem List Diagnosis Date Noted ??? Closed fracture of left wrist 11/04/2016 ??? Left hand pain 10/18/2016 ??? Achilles tendon tear, left 09/06/2016 ??? Type 2 diabetes mellitus with hyperglycemia, with long-term current use of insulin 09/06/2016 ??? Hypertension 09/06/2016 ??? group home current use of antithrombotics/antiplatelets 09/06/2016 ??? Prinzmetal angina 09/06/2016 Medications: ??? ondansetron (ZOFRAN-ODT) 4 mg Tablet, Rapid Dissolve ??? sitaGLIPtin (JANUVIA) 100 mg Tablet ??? nabumetone (RELAFEN) 750 mg Tablet ??? isosorbide mononitrate (IMDUR) 30 mg Tablet Sustained Release 24 hr ??? losartan (COZAAR) 100 mg Tablet ??? clopidogrel (PLAVIX) 75 mg Tablet ??? insulin detemir (LEVEMIR) Insulin Pen ??? glipiZIDE (GLUCOTROL XL) 5 mg Tablet Extended Rel 24 hr ??? meTOPROLOL succinate (TOPROL-XL) 25 mg Tablet Sustained Release 24 hr ??? omeprazole (PRILOSEC) 20 mg capsule ??? meclizine (ANTIVERT) 25 mg tablet ??? atorvastatin (LIPITOR) 80 mg tablet ??? ASPIRIN ORAL Allergies: Allergies Allergen Reactions ??? Iodine And Iodide Containing Products CIS - Anaphylaxis ??? Codeine Phosphate CIS - Nausea/Vomiting ??? Meperidine Hcl CIS - Nausea/Vomiting ??? Morphine Sulfate CIS - Nausea/Vomiting ??? Oxaprozin CIS - Nausea/Vomiting ??? Prednisone CIS - Rash with dose greater than 20mg. ??? Sulindac CIS - Nausea/Vomiting Social history: Social History Substance Use Topics ??? Smoking status: Never Smoker ??? Smokeless tobacco: Never Used ??? Alcohol use No Review of systems: No chest pain or shortness of breath No fevers, night sweats or chills Vital signs: Most Recent Vitals: 11/30/16 1615 BP: 127/78 Pulse: 89 Physical Exam: LUE: Able to okay, thumbs up, oppose thumb to the base of the fifth, oppose thumb to the tips of the second through fourth, flex second through fourth to the distal palmar crease Intact motor function of the radial, median, and ulnar nerves. Intact sensation along radial, median, and ulnar nerve distributions. Good hand perfusion. Left lower extremity: Is able to ambulate without the boot in clinic PT/DP pulses 2+. Superficial peroneal, deep peroneal, sural, saphenous, and tibial nerves intact totouch. Imaging: Personal review of the patient's imaging reveals: LUE: No fracture line noted. Ankle: No change from the previous images in location of the Moraima's deformity. Assessment: 61 y.o. year-old female with left achilles rupture and left scaphoid fracture. Plan: We had a long discussion about the nature of her injuries and her healing thus far. 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 In regards to her ankle, her clinical exam is reassuring. She is progressing nicely on the protocol. I would like her to continue with us. She requests a letter asking for modified return to work. I have provided her with this. She is still somewhat limited in the range of motion and strength of her left hand. I would like her to return to occupational therapy to continue to work on ROM and strengthening. I would like to obtain a copy of the visit report. Follow up: In 6 weeks for left ankle XR This plan was discussed with the patient and they are in agreement. All of the patient's questions were answered. Britt Munguia PA-C The above dictation was made with voice recogonition software documented in this encounter Plan of Treatment Upcoming Encounters Date Type Department Care Team (Late st Contact Info) Description 01/09/2024 2:20 PM EST TH Visit (TeleHealth) Hematology [place] [address] Kati Burnette MD [facility] [address] [place] [address] 01/24/2024 9:30 AM EST Appointment XRay at [address] [place] [phone] Jimmy Swann MD [facility] [place] [address] 01/24/2024 11:00 AM EST Office Visit Pain [place] [address] Regulo Wang PA [facility] [place] [address] 01/24/2024 2:45 PM EST Appointment [place] [address] 01/24/2024 3:45 PM EST Office [place] [phone] Caitlyn Hirsch MD [facility] [place] [address] 03/20/2024 9:00 AM EST Office Visit Hematology [place] [address] Ericka Forrest [facility] DR HEMATOLOGY [place] [address] 07/29/2024 2:00 PM EDT Office Visit Radiation Oncology at [address] [address] Kasie Marte MD [facility] [address] documented as of this encounter Results * [...] Diagnosis Rupture of left Achilles tendon, sequela Rupture of left Achilles tendon, sequela documented in this encounter Care Teams Manager Regulatory Relationship Specialty Start Date End Date Haylee Baptiste MD [address] [place] [address] PCP - General 01/21/10 documented as of this encounter
--- OUTSIDE RECORDS SUMMARY | 2023-12-15 12:40 | XMS_ITS | Encounter Summary ---
Author Organization [facility] Address [facility] [place] [address] Care Team Providers Care Risk And Insurance Manager Name Role Phone Haylee Baptiste MD Primary Care Provider [phone] Encounter Details Date Type Department Care Team (Late st Contact Info) Description 09/24/2018 12:05 AM EDT Ancillary Procedure Radiology Library at [facility] [place] [address] Darinel Squires MD [address] [place] [address] [place] [address] Social History Tobacco Use Types Packs/Day Years [...] TH Visit (TeleHealth) Hematology and Oncology at [facility] [place] [phone] Kati Burnette MD [facility] [place] [address] 01/24/2024 9:30 AM EST Appointment XRay at [address] [place] [phone] Jimmy Swann MD [facility] [place] [place] [address] 01/24/2024 11:00 AM EST Office Visit [place] [address] Regulo Wang PA [facility] [place] [address] 01/24/2024 2:45 PM EST Appointment Mammography at [place] [address] 01/24/2024 3:45 PM EST Office [place] [address] Caitlyn Hirsch MD [facility] [place] [address] 03/20/2024 9:00 AM EST Office Visit Hematology and Oncology at [place] [phone] Ericka Forrest, [facility] DR [place] [address] 07/29/2024 2:00 PM EDT Office Visit Radiation Oncology at [address] [address] Kasie Mrate MD [facility] [place] [address] documented as of this encounter Procedures Procedure Name Priority Date/Time Associated Diagnosis Comments FILM LIBRARY STORAGE ONLY DX ABDOMEN Routine 09/24/2018 12:05 AM EDT documented in this encounter Results * Film Library- Storage Only DX Abdomen (09/24/2018 12:05 AM EDT) Narrative [facility] - 09/26/2018 1:31 PM EDT This exam is auto-finalizing. It's purpose is for storage only. Darinel Squires MD IMG FILM LIBRARY ORD ERABLES [place], [place] documented in this encounter Visit Diagnoses Not on filedocumented in this encounter Care Teams Risk And Insurance Manager Relationship Specialty Start Date End Date Haylee Baptiste MD [address] [place] [address] PCP - General 01/21/10 documented as of this encounter
--- OUTSIDE RECORDS SUMMARY | 2023-12-15 12:40 | XMS_ITS | Encounter Summary ---
Author Organization [facility] Address [facility] [place] [address] Care Team Providers Care Shopper Name Role Phone Haylee Baptiste MD Primary Care Provider [phone] Encounter Details Date Type Department Care Team (Latest Contact Info) Description 01/27/2021 9:00 AM EST Ancillary Procedure Radiology Library at [facility] [place] [address] Mague Goddard APRN [facility] [place] [address] Left breast mass Social History Tobacco Use Types Packs/Day Years [...] TH Visit (TeleHealth) Hematology and Oncology at [facility] [place] [phone] Kati Burnette MD [facility] [place] [address] 01/24/2024 9:30 AM EST Appointment XRay at [address] [place] [phone] Jimmy Swann MD [facility] [place] [address] 01/24/2024 11:00 AM EST Office Visit Pain and Spine Center at [place] [address] Regulo Wang PA [facility] [place] [address] 01/24/2024 2:45 PM EST Appointment Mammography at [place] [address] 01/24/2024 3:45 PM EST Office Visit General Surgery at [place] [address] Caitlyn Hirsch MD [facility] [place] [address] 03/20/2024 9:00 AM EST Office Visit Hematology and Oncology at [place] [address] Ericka Forrest, [facility] DR HEMATOLOGY [place] [address] 07/29/2024 2:00 PM EDT Office Visit Radiation Oncology at [address] [phone] Kasie Marte MD [facility] [place] [address] documented as of this encounter Procedures Procedure Name Priority Date/Time Associated Diagnosis Comments REQUEST FOR 2ND READ MAMMO Routine 01/27/2021 8:57 AM EST Left breast mass documented in this encounter Results * Request for 2nd read Mammo (01/27/2021 8:57 AM EST) Anatomical Region Laterality Modality SO Impressions 01/27/2021 11:46 AM EST BI-RADS Category 2: Benign Findings. RECOMMENDATION: Management of any truly palpable finding should be managed clinically. If there remains a concern after her clinical examination at this breast center I would recommend a repeat LEFT breast ultrasound Please note: The interpretation of the [facility] Breast Imaging Radiologist subspecialist may differ from the original radiologists interpretation. This is usually not due to a deficiency of the original interpreting radiologist, rather due to the greater skill level afforded by sub-specialization in the field and/or reasonable variations in interpretations. If you have a concern regarding the [facility] interpretation you may contact the [facility] Breast Wrecker Driver Office at . Thank you for letting us participate in the care of this patient. ??If you are a health care provider and have any questions regarding this report, please contact the number below. ??For patients who have questions please contact the health child care team lead that requested your imaging first. ? Electronically signed by: Dorothy Hammond MD, [facility] ([phone]), at 01/27/2021 11:46 AM Narrative 01/27/2021 11:46 AM EST INTERPRETATION OF OUTSIDE BREAST IMAGING I have been asked to consult on this patient by Dr. Goddard because he/she believes a review of this study may change or alter the care of this patient. STUDIES FROM: [facility] DATES: 12/23/2020 TYPE OF EXAM: Bilateral mammography and LEFT breast ultrasound CLINICAL HISTORY: ? stable benign lesion in left breast; Sending Institution [facility]; Date of exam 20201223; I believe a reinterpretation of this exam may alter care of Patient. Yes; patient detected left breast lump, diagnostic imaging performed with a 4 mm solid mass. ?? COMPARISONS: Multiple priors back to 2007 TECHNIQUE: Bilateral CC, bilateral MLO FINDINGS: The breasts of scattered fibroglandular density. RIGHT breast: Normal unchanged LEFT breast: The patient has a palpable mass marker in the upper outer quadrant of the LEFT breast 3 to 4 cm from the nipple. In the retroareolar area there is an 0.8 cm well-defined mass. 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 Ultrasound of this mass shows a 0.7 cm oval well-defined hypoechoic mass at 1:00 3 cm the nipple concordant with this diagnosis.. I doubt this is the area the patient is palpating but I do not have any cine loops to further assess this area Procedure Note Dorothy Hammond MD - 01/27/2021 INTERPRETATION OF OUTSIDE BREAST IMAGING I have been asked to consult on this patient by Dr. Goddard becausehe/she believes a review of this study may change or alter the care of thispatient. STUDIES FROM: [facility] DATES: 12/23/2020 TYPE OF EXAM: Bilateral mammography and LEFT breast ultrasound CLINICAL HISTORY: ? stable benign lesion in left breast; [facility]; Date of exam 20201223; I believe areinterpretation of this exam may alter care of Patient. Yes; patient detected left breastlump, diagnostic imaging performed with a 4 mm solid mass. COMPARISONS: Multiple priors back to 2007 TECHNIQUE: Bilateral CC, bilateral MLO FINDINGS: The breasts of scattered fibroglandular density. RIGHT breast: Normal unchanged LEFT breast: The patient has a palpable mass marker in the upper outerquadrant of the LEFT breast 3 to 4 cm from the nipple. In the retroareolar areathere is an 0.8 cm well-defined mass. This is decreased in size from 2008 likelydue to an involuting fibroadenoma. Ultrasound of this mass shows a 0.7 cm oval well-defined hypoechoic mass at 1:00 3 cm the nipple concordant withthis diagnosis.. I doubt this is the area the patient is palpating but I do nothave any cine loops to further assess this area IMPRESSION BI-RADS Category 2: Benign Findings. RECOMMENDATION: Management of any truly palpable finding should be managed clinically. Ifthere remains a concern after her clinical examination at this breast center Iwould recommend a repeat LEFT breast ultrasound Please note: The interpretation of the [facility] BreastImaging Radiologist subspecialist may differ from the original radiologists interpretation. This is usually not due to a deficiency of the original interpreting radiologist, rather due to the greater skill level affordedby sub-specialization in the field and/or reasonable variations ininterpretations. If you have a concern regarding the [facility] interpretation [facility] at . Thank you for letting us participate in the care of this patient. If youare a health care provider and have any questions regarding this report,please contact the number below. For patients who have questions please contactthe health child care team lead that requested your imaging first. Mague Goddard TECHNICAL SALES ADVISOR IMG OUTSIDE INTERPR ETATION ORDERABLES documented in this encounter Visit Diagnoses Diagnosis Left breast mass Lump or mass in breast documented in this encounter Care Teams Shopper Relationship Specialty Start Date End Date Haylee Baptiste MD [address] [place] [address] PCP - General 01/21/10 documented as of this encounter
--- OUTSIDE RECORDS SUMMARY | 2023-12-15 12:40 | XMS_ITS | Encounter Summary ---
Author Organization [facility] Address [facility] [place] [address] Care Team Providers Care Cut Off Sawyer [place]ingle [place] Name Role Phone Haylee Baptiste MD Primary Care Provider [phone] Encounter Details Date Type Department Care Team (Late st Contact Info) Description 11/30/2016 - 11/30/2016 3:29 PM EDT Hospital Encounter Radiology Library at [facility] [place] [address] Michael Larsen MD [facility] [place] [address] Pain Discharge Disposition: Home Social History Tobacco Use [...] End Date fluticasone propionate (Flonase) 50 mcg/actuation [place], Suspension 1 spray by Each Nare route [...] TH Visit (TeleHealth) [place]ematology [place] [address] Kati Burnette MD [facility] [place]ATOLOGY [place] [address] 01/24/2024 9:30 AM EST Appointment XRay at [address] [place] [phone] Jimmy Swann MD [facility] [place] [address] 01/24/2024 11:00 AM EST Office Visit [place] [address] Regulo Wang PA [facility] [place] [address] 01/24/2024 2:45 PM EST [place] [phone] 01/24/2024 3:45 PM EST Office [place] [phone] Caitlyn Hirsch MD [facility] [place] [address] 03/20/2024 9:00 AM EST Office Visit Hematology [place] [phone] Ericka Forrest, [facility] DR HEMATOLOGY [place] [address] 07/29/2024 2:00 PM EDT Office Visit Radiation Oncology at [address] [address] Kasie Marte MD [facility] [place] [address] documented as of this encounter Procedures Procedure Name Priority Date/Time Associated Diagnosis Comments FILM LIBRARY STORAGE ONLY DX ANKLE Routine 11/30/2016 12:00 AM EDT Pain documented in this encounter Results * Film Library- Storage Only DX Ankle (11/30/2016 12:00 AM EDT) Narrative [facility] - 11/30/2016 4:19 PM EDT This exam is for storage only and is auto-finalizing. Michael Larsen MD IMG FILM LIBRARY ORD ERABLES [place], [place] documented in this encounter Visit Diagnoses Diagnosis Pain Generalized pain documented in this encounter Care Teams Cut Off Sawyer [place] [place] Relationship Specialty Start Date End Date Haylee Baptiste MD [address] [place] [address] PCP - General 01/21/10 documented as of this encounter
--- OUTSIDE RECORDS SUMMARY | 2023-12-15 12:40 | XMS_ITS | Encounter Summary ---
Author Organization [facility] Address [facility] [place] [address] Care Team Providers Care Gas Stove Servicer Helper Name Role Phone Haylee Baptiste MD Primary Care Provider [phone] Encounter Details Date Type Department Care Team (Late st Contact Info) Description 09/26/2018 1:35 PM EDT Ancillary Procedure Radiology Library at [facility] [place] [address] Darinel Squires MD [address] [place] [address] [place] [address] Social History Tobacco Use Types Packs/Day Years [...] TH Visit (TeleHealth) Hematology and Oncology at [facility] [place] [address] Kati Burnette MD [facility] [place] [address] 01/24/2024 9:30 AM EST Appointment XRay at [address] [place] [phone] Jimmy Swann MD [facility] [place] [place] [address] 01/24/2024 11:00 AM EST Office Visit [place] [address] Regulo Wang PA [facility] [place] [address] 01/24/2024 2:45 PM EST Appointment Mammography at [place] [address] 01/24/2024 3:45 PM EST Office [place] [address] Caitlyn Hirsch MD [facility] [place] [address] 03/20/2024 9:00 AM EST Office Visit Hematology and Oncology at [place] [phone] Ericka Forrest, [facility] DR HEMATOLOGY [place] [address] 07/29/2024 2:00 PM EDT Office Visit Radiation Oncology at [address] [address] Kasie Marte MD [facility] [place] [address] documented as of this encounter Procedures Procedure Name Priority Date/Time Associated Diagnosis Comments FILM LIBRARY STORAGE ONLY ULTRASOUND STUDY Routine 09/26/2018 1:32 PM EDT documented in this encounter Results * Film Library- Storage Only Ultrasound Study (09/26/2018 1:32 PM EDT) Narrative [facility] - 09/26/2018 1:32 PM EDT This exam is auto-finalizing. It's purpose is for storage only. Darinel Squires MD IMG FILM LIBRARY ORD ERABLES [place], [place] documented in this encounter Visit Diagnoses Not on filedocumented in this encounter Care Teams Gas Stove Servicer Helper Relationship Specialty Start Date End Date Haylee Baptiste MD [address] [place] [address] PCP - General 01/21/10 documented as of this encounter
--- OUTSIDE RECORDS SUMMARY | 2023-12-15 12:40 | XMS_ITS | Encounter Summary ---
Author Organization [facility] [place] [address] Care Team Providers Care Apprentice/Lineman Name Role Phone Haylee Baptiste MD Primary Care Provider [phone] Reason for Referral * Physical Therapy (Routine) - Specialty Diagnoses / Procedures Referred By Mike jalloh Referred To Contact Physical Therapy Diagnoses Achilles rupture, right, subsequent encounter Britt Munguia PA [facility] [place] [address] Referral ID Status Reason Start Date Expiration Date V isits Requested Visits Authorized [id number] Evaluate and Treat 10/19/2016 04/17/2017 12 12 Reason for Visit * Reason Comments Follow-up Left achilles ruptur e DOI: 09/02/16 Follow Up Fracture left wrist scaphoid fx ISABEL: 09/03/16 Encounter Details Date Type Department Care Team (Late st Contact Info) Description 10/19/2016 2:00 PM EDT Office Visit [place] [address] Michael Larsen MD [facility] [place] [address] Achilles rupture, right, subsequent encounter Social History Tobacco Use Types [...] Sign Reading Time Taken Comments Blood Pressure 113/60 10/19/2016 2:54 PM EDT Pulse 85 10/19/2016 2:54 PM EDT Temperature - - Respiratory Rate - - Oxygen Saturation - - Inhaled Oxygen Concentration - - Weight 82.6 kg (182 lb) 10/19/2016 2:54 PM EDT v erbal Height 157.5 cm (5' 2) 10/19/2016 2:54 PM EDT v erbal Body Mass Index 33.29 10/19/2016 2:54 PM EDT documented in this encounter Progress Notes * Britt Munguia PA - 10/19/2016 2:00 PM EDT Chief complaint: FU post Right achilles rupture, left scaphoid fracture Problem List Items Addressed This Visit None Visit Diagnoses Achilles rupture, right, subsequent encounter Relevant Orders Referral to Physical Therapy XR Wrist Complete Min 3 views Right (Generic) History of present illness: Nallely Velazquez is a 61 y.o. year-old female history of wrist pain after a fall onto outstretched hand. She was walking her very large dog when the dog bolted pulling the leash out of her hand. She was initially seen due to a suspected Achilles rupture however she also reported pain and was subsequently put into a thumb spica due to pain over the scaphoid. She reports that her pain is at most a 1/10 for both the left wrist as well as the right heel. She has remained in her achilles boot. Past medical history: Patient Active Problem List Diagnosis Date Noted ??? Left hand pain 10/18/2016 ??? Achilles tendon tear, left 09/06/2016 ??? Type 2 diabetes mellitus with hyperglycemia, with long-term current use of insulin 09/06/2016 ??? Hypertension 09/06/2016 ??? 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 Prinzmetal angina 09/06/2016 Medications: ??? HYDROcodone-acetaminophen (NORCO) 5-325 mg Tablet ??? ondansetron (ZOFRAN-ODT) 4 mg Tablet, Rapid Dissolve ??? sitaGLIPtin (JANUVIA) 100 mg Tablet ??? nabumetone (RELAFEN) 750 mg Tablet ??? isosorbide mononitrate (IMDUR) 30 mg Tablet Sustained Release 24 hr ??? losartan (COZAAR) 100 mg Tablet ??? clopidogrel (PLAVIX) 75 mg Tablet ??? topiramate (TOPAMAX) 25 mg Tablet ??? insulin detemir (LEVEMIR) Insulin [...] or chills Vital signs: Most Recent Vitals: 10/19/16 1454 BP: 113/60 Pulse: 85 Physical Exam: Inspection Left wrist : healing abrasion noted over dorsal aspect of her wrist. No erythema, edema or echymosis noted. Right Foot: No erythema, edema or echymosis noted.mild swelling noted circumferentially about the ankjle Palpation: Mild TTP over the left anatomic snuffbox. She rates this as a 1/10 on the pain scale. No TTP over the right ankle Imaging: Personal review of the patient's imaging reveals: Wrist: No obvious fracture noted however there was no scaphoid view obtained. She will obtain theseon her way out. Ankle no new fracture of dislocation noted. Wrist views with scaphoid view: No lucency or fracture lined noted. Assessment: 61 y.o. year-old female with history of right achilles rupture as well as left scaphoidfracture Plan: Patient seen and plan discussed in conjunction with Dr. Marin. We had a long discussion about the nature of his pain. We reviewed his x-ray images together which show Wrist: No obvious fracture noted however there was no scaphoid view obtained. She will obtain these on her way out. Ankle no new fracture of dislocation noted. New wrist XR with scaphoid view show no sign of fracture. She may begin WBAT and working on ROM. We discussed the achilles protocol. Per JUAN Clark's instructions, we are slowoing her progression 2 weeks. For the sake of the protocol, we will use the DOI as 09/20, rather than 09/03 At 0-2 weeks post injury: -Posterior slab/splint/cast in equinus, non weight bearing with crutches At 2-4 weeks post injury: -Walker boot with 3 heel wedges: BOOT IS TO BE WORN AT ALL TIMES, INCLUDING SLEEPING. Boot may be removed for bathing and dressing, but ROM and WB restrictions must be followed -Protected WB with crutches -Active plantar flexion and dosiflexion to neutral, inversion and eversion below neutral -Modalities to control swelling -Knee/hip exercises with no ankle involvement -Hydrotherapy (with motion and weight bearing limitations) -Non weight bearing fitness exercises: bicycling with one leg, deep water running. 4-6 weeks post injury: -Weight bearing as tolerated -Continue week 2-4 protocol -At 4 weeks remove 1st heel wedge -At 5 weeks remove second heel wedge -At 6 weeks remove third heel wedge 6-8 weeks post injury -WBAT -Slow dorsiflexion stretching -Graduated resistance exercises (open and closed kinetic chain as well as functional activities) -Proprioceptive and gait training -Hydrotherapy -Incision mobilization 8-12 weeks post injury -Wean out of boot -Return to crutches or cane as necessary -Continue to progress ROM, strength, proprioception 14-16 weeks post injury -Begin unilateral stance exercises at 14 weeks -No eccentric drops until 16 weeks. -May begin running after 16 weeks We removed one wedge from her boot today. Pt referral was given to the pt. I have called the pt and given her the instructions that she may WBAT on her arm and work on ROM Follow up: 6 week This plan was discussed with the patient and they are in agreement. All of the patient's questions were answered. Britt Munguia PA-C The above dictation was made with voice recogonition software documented in this encounter Plan of Treatment Upcoming Encounters Date Type Department Care Team (Late st Contact Info) Description 01/09/2024 2:20 PM EST TH Visit (TeleHealth) Hematology [place] [address] Kati Burnette MD [facility] DR HEMATOLOGY [place] [address] 01/24/2024 9:30 AM EST Appointment XRay at [address] [place] [phone] Jimmy Swann MD [facility] [place] [address] 01/24/2024 11:00 AM EST Office Visit Pain [place] [phone] Regulo Wang PA [facility] [place] [address] 01/24/2024 2:45 PM EST Appointment [place] [phone] 01/24/2024 3:45 PM EST Office Visit [place] [phone] Caitlyn Hirsch MD [facility] [place] [address] 03/20/2024 9:00 AM EST Office Visit Hematology [place] [address] Ericka Forrest, [facility] DR HEMATOLOGY [place] [address] 07/29/2024 2:00 PM EDT Office Visit Radiation Oncology at [address] [phone] Kasie Marte MD [facility] [place] [address] Scheduled Referrals Name Type Priority Associated Diagnoses Orde r Schedule Referral to Physical Therapy Outpatient Referral Routine Achilles rupture, right, subsequent encounter Ordered: 10/19/2016 documented as of this encounter Visit Diagnoses Diagnosis Achilles rupture, right, subsequent encounter documented in this encounter Care Teams Apprentice/Lineman Relationship Specialty Start Date End Date Haylee Baptiste MD [address] [place] [address] PCP - General 01/21/10 documented as of this encounter
--- OUTSIDE RECORDS SUMMARY | 2023-12-15 12:40 | XMS_ITS | Encounter Summary ---
Author Organization [facility] [place] [address] Care Team Providers Care Circuits Engineer Name Role Phone Haylee Baptiste MD Primary Care Provider [phone] Encounter Details Date Type Department Care Team (Late st Contact Info) Description 12/23/2020 12:05 AM EST Ancillary Procedure Radiology Library [place] [facility] [place] [address] Haylee Baptiste MD [address] [place], [place] [address] Social History Tobacco Use Types Packs/Day Years [...] TH Visit (TeleHealth) Hematology and Oncology at [facility] [place] [phone] Kati Burnette MD [facility] [place]AT[place] [address] 01/24/2024 9:30 AM EST Appointment XRay at [address] [place] [address] Jimmy Swann MD [facility] [place] [address] 01/24/2024 11:00 AM EST Office Visit Pain and Spine Center at [place] [phone] Regulo Wang PA [facility] [place] [address] 01/24/2024 2:45 PM EST Appointment Mammography at [place] [phone] 01/24/2024 3:45 PM EST Office Visit General Surgery at [place] [phone] Caitlyn Hirsch MD [facility] [place] [address] 03/20/2024 9:00 AM EST Office Visit Hematology and Oncology at [place] [phone] Ericka Forrest, [facility] [place]ATOLOG[place] [address] 07/29/2024 2:00 PM EDT Office Visit Radiation Oncology at [address] [phone] Kasie Marte MD [facility] [place] [address] documented as of this encounter Procedures Procedure Name Priority Date/Time Associated Diagnosis Comments FILM LIBRARY-STORAGE ONLY US BREAST Routine 12/23/2020 12:05 AM EST documented in this encounter Results * Film Library Storage Only US Breast (12/23/2020 12:05 AM EST) Narrative RAD - 01/01/2021 1:50 PM EST This exam is auto-finalizing. It's purpose is for storage only. Haylee Baptiste MD IMG FILM LIBRARY ORD ERABLES [place], [place] documented in this encounter Visit Diagnoses Not on filedocumented in this encounter Care Teams Circuits Engineer Relationship Specialty Start Date End Date Haylee Baptiste MD [address] [place] [address] PCP - General 01/21/10 documented as of this encounter
--- OUTSIDE RECORDS SUMMARY | 2023-12-15 12:40 | XMS_ITS | Encounter Summary ---
Author Organization [facility] Address [facility] [place] [address] Care Team Providers Care Talend Etl Developer Name Role Phone Haylee Baptiste MD Primary Care Provider [phone] Encounter Details Date Type Department Care Team (Late st Contact Info) Description 01/09/2019 Ancillary Procedure Radiology Library [place] [facility] [place] [address] Haylee Baptiste MD [address] [place] [address] Social History Tobacco Use Types [...] TH Visit (TeleHealth) Hematology and Oncology at [facility] [place] [phone] Kati Burnette MD [facility] HEMATOLOGY [place] [address] 01/24/2024 9:30 AM EST Appointment XRay at [address] [place] [address] Jimmy Swann MD [facility] [place] [address] 01/24/2024 11:00 AM EST Office Visit Pain and Spine Center at [place] [address] Regulo Wang PA [facility] [place] [address] 01/24/2024 2:45 PM EST Appointment Mammography at [address] 01/24/2024 3:45 PM EST Office Visit General Surgery at [place] [phone] Caitlyn Hirsch MD [facility] [place] [address] 03/20/2024 9:00 AM EST Office Visit Hematology and Oncology at [address] Ericka Forrest, [facility] [place] [facility] DR HEMATOLOGY [place] [address] 07/29/2024 2:00 PM EDT Office Visit Radiation Oncology at [address] [phone] Kasie Marte MD [facility] [place] [address] documented as of this encounter Procedures Procedure Name Priority Date/Time Associated Diagnosis Comments FILM LIBRARY STORAGE ONLY ULTRASOUND STUDY Routine 01/09/2019 12:00 AM EST documented in this encounter Results * Film Library- Storage Only Ultrasound Study (01/09/2019 12:00 AM EST) Narrative RAD - 04/15/2019 3:24 PM EDT This exam is auto-finalizing. It's purpose is for storage only. Haylee Baptiste MD IMG FILM LIBRARY ORD ERABLES [place], [place] documented in this encounter Visit Diagnoses Not on filedocumented in this encounter Care Teams Talend Etl Developer Relationship Specialty Start Date End Date Haylee Baptiste MD [address] [place] [address] PCP - General 01/21/10 documented as of this encounter
--- OUTSIDE RECORDS SUMMARY | 2023-12-15 12:40 | XMS_ITS | Encounter Summary ---
Author Organization [facility] Address [facility] [place] [address] Care Team Providers Care Clubhouse Manager Name Role Phone Haylee Baptiste MD Primary Care Provider [phone] Encounter Details Date Type Department Care Team (Latest Contact Info) Description 09/29/2016 10:30 AM EDT - 09/29/2016 11:59 PM EDT Hospital Encounter XRay at [address] [place] [address] [facility] [place] [address] Achilles tendon tear, left, sequela Discharge Disposition: Home Social History Tobacco [...] End Date fluticasone propionate (Flonase) 50 mcg/actuation New Site, Suspension 1 spray by Each Nare route [...] TH Visit (TeleHealth) Hematology [place] [address] [facility] HEMATOLOGY [place] [address] 01/24/2024 9:30 AM EST Appointment XRay at [address] [place] [address] [facility] [place] [address] 01/24/2024 11:00 AM EST Office Visit Pain and Spine Center at [place] [address] [facility] [place] [address] 01/24/2024 2:45 PM EST Appointment Mammography at [place] [address] 01/24/2024 3:45 PM EST Office Visit General Surgery at [place] [phone] [facility] [place] [place] [address] 03/20/2024 9:00 AM EST Office Visit Hematology and Oncology at [place] [address] Ericka Forrest, [facility] [place] DR HEM[place]OLOG[place] [address] 07/29/2024 2:00 PM EDT Office Visit Radiation Oncology at [address] [phone] Kasie Marte MD [facility] [place] [address] documented as of this encounter Procedures Procedure Name Priority Date/Time Associated Diagnosis Comments XR ANKLE MIN 3 VIEWS LEFT Routine 09/29/2016 12:40 PM EDT Achilles tendon tear, left, sequela documented in this encounter Results * XR Ankle Min 3 views Left (Generic) (09/29/2016 12:40 PM EDT) Anatomical Region Laterality Modality Ankle Left Digital Radiogra phy Impressions 09/29/2016 3:55 PM EDT Again noted, a irregular ossific density measuring 3.5 cm projecting 2.5 cm superior to the craniad aspect of the calcaneal tuberosity, 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 Slight interval remodeling of the posterior craniad aspect of the calcaneal tuberosity. Otherwise, no significant change from prior. I have personally reviewed the image(s) and the residents interpretation and agree with the findings, CHELSEA SARAVIA at 09/29/2016 3:55 PM Narrative 09/29/2016 3:55 PM EDT EXAMINATION: XR ANKLE MIN 3 VIEWS LEFT (GENERIC) CLINICAL HISTORY: History of diabetes status post suspected Achilles tendon rupture, status post 2 weeks of casting in equinus. Evaluate for healing/change. 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 There has been some interval smoothing of posterior craniad aspect of the calcaneal tuberosity compatible with remodeling. The avulsed fragment is not significantly changed in position with respect to the calcaneal tuberosity. No tibiotalar joint space widening. The talar dome and tibial plafond are intact. No ankle joint effusion. Enthesophyte at the inferior calcaneus at the attachment of the plantar fascia. The visualized joint spaces are normal. Procedure Note Chelsea aSravia MD - 09/29/2016 EXAMINATION: XR ANKLE MIN 3 VIEWS LEFT (GENERIC) CLINICAL HISTORY: History of diabetes status post suspected Achillestendon rupture, status post 2 weeks of casting in equinus. Evaluate forhealing/change. 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 There has beensome interval smoothing of posterior craniad aspect of the calcanealtuberosity compatible with remodeling. The avulsed fragment is not significantlychanged in position with respect to the calcaneal tuberosity. No tibiotalar joint space widening. The talar dome and tibial plafondare intact. No ankle joint effusion. Enthesophyte at the inferior calcaneus atthe attachment of the plantar fascia. The visualized joint spaces arenormal. IMPRESSION Again noted, a irregular ossific density measuring 3.5 cm projecting 2.5 cm superior to the craniad aspect of the calcaneal tuberosity, favoredto represent an avulsed Moraima deformity, with unchanged respectivepositioning of the fragments. Slight interval remodeling of the posterior craniad aspectof the calcaneal tuberosity. Otherwise, no significant change from prior. I have personally reviewed the image(s) and the residents interpretationand agree with the findings, CHELSEA SARAVIA at 09/29/2016 3:55 PM Chapo Marin MD IMG DX ORDERABLES documented in this encounter Visit Diagnoses Diagnosis Achilles tendon tear, left, sequela documented in this encounter Care Teams Clubhouse Manager Relationship Specialty Start Date End Date Haylee Baptiste MD [address] [place] [address] PCP - General 01/21/10 documented as of this encounter
--- OUTSIDE RECORDS SUMMARY | 2023-12-15 12:40 | XMS_ITS | Encounter Summary ---
Author Organization [facility] [place] [address] Care Team Providers Care Smelting Engineer Name Role Phone Haylee Baptiste MD Primary Care Provider [phone] Reason for Visit * Consultation (Routine) - Closed Specialty Diagnoses / Procedures Referred By Mike jalloh Referred To Contact Hematology and Oncology Diagnoses Breast lump in female Haylee Baptiste MD [address] [place] [address] [facility] [address] [place] [address] Referral ID Status Reason Start Date Expiration Date Visits Re quested Visits Authorized [id number] Closed 01/01/2021 01/01/2022 1 1 Encounter Details Date Type Department Care Team (Late st Contact Info) Description 01/19/2021 9:00 AM EST Office [place] [address] Mague Goddard APRN [facility] [place] [address] Left breast mass Social History Tobacco Use [...] as of this encounter Progress Notes * JairolorenzoMague Johana, BREASTFEEDING PROGRAM COORDINATOR - 01/19/2021 9:00 AM EST Images from the original note were not included. Patient ID: Nallely Velazquez is a 66 y.o. female who is seen at the request of Dr. Haylee Baptiste for evaluation of a left breast mass. HPI: Nallely states she can sometimes feel a left breast irregularity on her left lateral breast around 3:00, with an associated itch. She had imaging at [facility] and this showed a solid 4 mm mass. She is requesting a second opinion on the reading and a CBE. She has no family history of breast cancer. She has no personal history of cancer. She did have andexcisional biopsy of the left breast in 1972 that was benign with two cysts removed at that time. Imaging performed: bilateral mammogram with focused left ultrasound at [facility] on 12/23/20 was interpreted as BI-RADS Category 2 with a stable solid mass at 2:00 3 cm fn, 4mm and solid. At today's visit, she denies any skin changes, new breast masses, or breast trauma. No nipple discharge or pain in either breast. She denies any headaches or significant weight changes. No new chest pain or difficulty breathing. No new bony pain or tenderness. She has no new or concerning complaints of fatigue, cardiovascular, or respiratory symptoms. All other ROS are negative. Family History Problem (# of Occurrences) Relation (Name,Age of Onset) Diabetes (2) Mother, Father Heart Disease (1) Mother Negative family history of: Cancer Social Hx: She works in [employer]. She does not smoke; ETOH - occasional Past Medical Hx: DM II, hypertension, hyperlipidemia, gerd, sarcoidosis Past Surgical Hx: Noncontributory Physical Exam: General appearance: Alert, well-appearing, well-developed, well-nourished; in no acute distress. Skin: Warm and dry. Head: Normocephalic, atraumatic Neck: Soft and supple without masses or adenopathy. Breasts: right breast is soft and without masses, no skin changes, nipple everted. No axillary adenopathy. Left breast is soft, I do not appreciate any masses. She has a patch of dry skin in NAC at 6:00. Looks consistent with eczema patch. No axillary adenopathy. Musculoskeletal: Full ROM in upper extremities without lymphedema. Neurological: Alert and oriented x 4. Mood is euthymic and appropriate to the situation. Assessment: Clinical breast exam notable for a dry patch of skin with small scab on NAC. I feel no masses or axillary adenopathy. Diagnostic imaging at [facility] was cat 2 with a solid 4 mm mass in left breast. She would like a second read. I discussed with her that we should keep a close eye on dry patch of skin. Ifavor an eczema patch but cannot rule out Paget's disease of the breast if this does not get better with emollient cream. Plan: I will have a second read of her imaging done by radiology here. I recommend she take vitamin d 1,000 IU daily. I would like her to use an emollient cream to the dry patch of skin on nipple areolar complex. If this does not clear up I want to see her back for a skin biopsy. I will call her with read of mammogram. Nonpharmacologic measures to help decrease your risk of developing breast cancer include the following: ?? Get at least 30 minutes of moderate intensity physical activity above normal activity on most days of the week to reduce the risk of chronic disease in adulthood. Walking is a good choice. You also may want to do other activities, such as running, swimming, cycling, playing tennis, or other teamsports. ?? Do strength training exercises at least twice a week to maintain muscle and bone health. ?? Drink alcohol in moderation, if at all. That means no more than 1 drink a day for women or 2 perday for men. ?? Make healthy eating choices: fruits and vegetables, lean protein, and healthy fats. Minimize processed foods, simple carbohydrates, sugars, and artificial sweeteners. ?? Maintain or achieve a healthy weight. Normal BMI < 25 for individuals under 65 years old; 22-30 for > 65 years old. ?? Be cautious about exposure risk, both what you put in and on your body (ie: artificial fragrances, artificial dyes, as well as certain ingredients in makeup, hair and body care, antiperspirant, laundry detergent, fabric softener, dryer sheets, etc.). The nations ban over 1,300 ingredients from personal care products. Currently, the [place] bans only 11 products. Apps to help make healthierchoices for personal care products are available for free at EWG (Environmental Working Group) and [employer] Dirty. All questions were answered to the patient's satisfaction and they state understanding and agreement with today's treatment plan. They are encouraged to follow up sooner if they develop any new or concerning symptoms. Mague Goddard APRN Surgical Oncology P [phone] F [phone] [facility] documented in this encounter Plan of Treatment Upcoming Encounters Date Type Department Care Team (Late st Contact Info) Description 01/09/2024 2:20 PM EST TH Visit (TeleHealth) Hematology and Oncology at [place] [phone] Kati Burnette MD [facility] [place] [address] 01/24/2024 9:30 AM EST Appointment XRay at [address] [place] [phone] Jimmy Swann MD [facility] [place] [address] 01/24/2024 11:00 AM EST Office Visit Pain and Spine Center at [place] [phone] Regulo Wang PA [facility] [place] [address] 01/24/2024 2:45 PM EST Appointment Mammography at [place] [phone] 01/24/2024 3:45 PM EST Office Visit General Surgery at [address] Caitlyn Hirsch MD [facility] [place] [address] 03/20/2024 9:00 AM EST Office Visit Hematology [place] [address] Ericka Forrest, [facility] [place] [address] 07/29/2024 2:00 PM EDT Office Visit Radiation Oncology at [address] [address] Kasie Mrate MD [facility] [place] [address] documented as of this encounter Results * Request for 2nd [...] ultrasound Please note: The interpretation of the [facility] Breast Imaging Radiologist subspecialist may differ from the original radiologists interpretation. This is usually not due to a deficiency of the original interpreting radiologist, rather due to the greater skill level afforded by sub-specialization in the field and/or reasonable variations in interpretations. If you have a concern regarding the [facility] interpretation you may contact the [facility] Breast Regional Controller Office at . Thank you for letting us participate in the care of this patient. ??If you are a health care provider and have any questions regarding this report, please contact the number below. ??For patients who have questions please contact the health care management specialist that requested your imaging first. ? Narrative 01/27/2021 11:46 AM EST INTERPRETATION OF OUTSIDE BREAST IMAGING I have been asked to consult on this patient by Dr. Goddard because he/she believes a review of this study may change or alter the care of this patient. STUDIES FROM: [facility] DATES: 12/23/2020 TYPE OF EXAM: Bilateral mammography and LEFT breast ultrasound CLINICAL HISTORY: ? stable benign lesion in left breast; Sending Institution [facility]; Date of exam [id number]; I believe a reinterpretation of this exam may alter care of Patient. Yes; patient detected left breast lump, diagnostic imaging performed with a 4 mm solid mass. ?? COMPARISONS: Multiple priors back to 2008 TECHNIQUE: Bilateral CC, bilateral MLO FINDINGS: The [...] alter the care of thispatient. STUDIES FROM: [facility] DATES: 12/23/2020 TYPE OF EXAM: Bilateral mammography and LEFT breast ultrasound CLINICAL HISTORY: ? stable benign [facility] left breast[facility] Date of exam [id number]; I believe areinterpretation [...] mass. 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 Ultrasound of [...] ultrasound Please note: The interpretation of the [facility] BreastImaging Radiologist subspecialist may differ from the original radiologists interpretation. This is usually not due to a deficiency of the original interpreting radiologist, rather due to the greater skill level affordedby sub-specialization in the field and/or reasonable variations ininterpretations. If you have a concern regarding the [facility] interpretation you may [facility] Breast [facility] Controller Office at . Thank you for letting us participate in the care of this patient. If youare a health care provider and have any questions regarding this report,please contact the number below. For patients who have questions please contactthe health care management specialist that requested your imaging first. Mague Goddard APRN IMG OUTSIDE INTERPR ETATION ORDERABLES documented in this encounter Visit Diagnoses Diagnosis Left breast mass Lump or mass in breast Left breast mass Lump or mass in breast documented in this encounter Care Teams Smelting Engineer Relationship Specialty Start Date End Date Haylee Baptiste MD [address] [place] [address] PCP - General 01/21/10 documented as of this encounter
--- OUTSIDE RECORDS SUMMARY | 2023-12-15 12:40 | XMS_ITS | Encounter Summary ---
Author Organization [facility] [place] [address] Care Team Providers Care Waste Collection Driver Name Role Phone Haylee Baptiste MD Primary Care Provider [phone] Encounter Details Date Type Department Care Team (Late st Contact Info) Description 11/11/2016 Notes Only [place] [address] Britt Munguia PA [facility] [place] [address] Social History Tobacco Use Types Packs/Day Years Used Date Smoking Tobacco: Never Smokeless Tobacco: Never Alcohol Use Standard Drinks/Week Comments No 0 (1 standard drink = 0.6 oz pur e alcohol) Sex and Gender Information Value Date Recorded Sex Assigned at Not on file Gender Identity Not on file Sexual Orientation Not on file documented as of this encounter Progress Notes * Britt Munguia PA - 11/11/2016 8:59 AM EDT Nallely Velazquez, Visit on 10/19/16 Reported incorrect laterality. Left Achilles rupture is the correct laterality. Britt Munguia PA-C documented in this encounter Plan of Treatment Upcoming Encounters Date Type Department Care Team (Late st Contact Info) Description 01/09/2024 2:20 PM EST TH Visit (TeleHealth) Hematology and Oncology at [place] [phone] Kati Burnette MD [facility] DR [place] [address] 01/24/2024 9:30 AM EST Appointment XRay at [address] Jimmy Swann MD [facility] [place] [address] 01/24/2024 11:00 AM EST Office Visit Pain and Spine Center at [address] Regulo Wang PA [facility] [place] [address] 01/24/2024 2:45 PM EST Appointment Mammography at [place] [address] 01/24/2024 3:45 PM EST Office [place] [address] Caitlyn Hirsch MD [facility] [place] [address] 03/20/2024 9:00 AM EST Office Visit Hematology and Oncology at [place] [phone] Ericka Forrest, [facility] DR [place] [address] 07/29/2024 2:00 PM EDT Office Visit Radiation Oncology at [address] [address] Kasie Marte MD [facility] [place] [address] documented as of this encounter Visit Diagnoses Not on filedocumented in this encounter Care Teams Waste Collection Driver Relationship Specialty Start Date End Date Haylee Baptiste MD [address] [place] [address] PCP - General 01/21/10 documented as of this encounter
--- OUTSIDE RECORDS SUMMARY | 2023-12-15 12:40 | XMS_ITS | Encounter Summary ---
Author Organization [facility] Address [facility] [place] [address] Care Team Providers Care Glove Machine Operator Name Role Phone Haylee Baptiste MD Primary Care Provider [phone] Encounter Details Date Type Department Care Team (Latest Contact Info) Description 10/19/2016 1:34 PM EDT - 10/19/2016 3:46 PM EDT Hospital Encounter XRay at [address] [place] [address] Chapo Marin MD [facility] [place] [address] Achilles tendon tear, left, sequela Discharge Disposition: [...] End Date fluticasone propionate (Flonase) 50 mcg/actuation [place], Suspension 1 spray by Each Nare route [...] TH Visit (TeleHealth) Hematology [place] [address] Kati Burnette MD [facility] HEMATOLOGY [place] [address] 01/24/2024 9:30 AM EST Appointment XRay at [address] [place] [address] Jimmy Swann MD [facility] [place] [place] [address] 01/24/2024 11:00 AM EST Office Visit Pain and Spine Center at [place] [address] Regulo Wang PA [facility] [place] [address] 01/24/2024 2:45 PM EST Appointment Mammography at [place] [address] 01/24/2024 3:45 PM EST Office Visit General Surgery at [place] [phone] Caitlyn Hirsch MD [facility] [place] [address] 03/20/2024 9:00 AM EST Office Visit Hematology and Oncology at [place] [address] Ericka Forrest, [facility] DR [place] [address] 07/29/2024 2:00 PM EDT Office Visit Radiation Oncology at [address] [phone] Kasie Marte MD [facility] [place] [address] documented as of this encounter Procedures Procedure Name Priority Date/Time Associated Diagnosis Comments XR ANKLE MIN 3 VIEWS LEFT Routine 10/19/2016 2:15 PM EDT Achilles tendon tear, left, sequela documented in this encounter Results * XR Ankle Min 3 views Left (Generic) (10/19/2016 2:15 PM EDT) Anatomical Region Laterality Modality Ankle Left Digital Radiogra phy Impressions 10/19/2016 3:38 PM EDT Unchanged ossific density superior to the calcaneal tuberosity 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 Narrative 10/19/2016 3:38 PM EDT EXAMINATION: XR ANKLE MIN 3 VIEWS LEFT (GENERIC) CLINICAL HISTORY: Eval for healing TECHNIQUE: 3 views were obtained. COMPARISON: September 29, 2016. FINDINGS: There is no change in the previously noted ossific density superior to the calcaneal tuberosity. 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 No new acute osseous abnormality is seen. Procedure Note Zeyad Dominguez MD - 10/19/2016 EXAMINATION: XR ANKLE MIN 3 VIEWS LEFT (GENERIC) CLINICAL HISTORY: Eval for healing TECHNIQUE: 3 views were obtained. COMPARISON: September 29, 2016. FINDINGS: There is no change in the previously noted ossific density superior tothe calcaneal tuberosity. 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 No new acute osseous abnormality is seen. IMPRESSION Unchanged ossific density superior to the calcaneal tuberosity favoredto represent an avulsed Moraima deformity. Chapo Marin MD IMG DX ORDERABLES documented in this encounter Visit Diagnoses Diagnosis Achilles tendon tear, left, sequela documented in this encounter Care Teams Glove Machine Operator Relationship Specialty Start Date End Date Haylee Baptiste MD [address] [place] [address] PCP - General 01/21/10 documented as of this encounter
--- OUTSIDE RECORDS SUMMARY | 2023-12-15 12:40 | XMS_ITS | Encounter Summary ---
Author Organization [facility] Address [facility] [place] [address] Care Team Providers Care Transmitter Engineer In Charge Name Role Phone Haylee Baptiste MD Primary Care Provider [phone] Encounter Details Date Type Department Care Team (Late st Contact Info) Description 11/30/2016 3:35 PM EDT - 11/30/2016 11:59 PM EDT Hospital Encounter XRay at [address] [place] [address] Michael Larsen MD [facility] [place] [address] Rupture of left Achilles tendon, sequela Discharge [...] End Date fluticasone propionate (Flonase) 50 mcg/actuation [place], Suspension 1 spray by Each Nare route [...] TH Visit (TeleHealth) Hematology [place] [address] Kati Burnette MD [facility] H[place]ATOLOGY [place] [address] 01/24/2024 9:30 AM EST Appointment XRay at [address] [place] [phone] Jimmy Swann MD [facility] [place] [address] 01/24/2024 11:00 AM EST Office Visit Pain [place] [address] Regulo Wang PA [facility] [place] [address] 01/24/2024 2:45 PM EST Appointment Mammography at [place] [address] 01/24/2024 3:45 PM EST Office Visit General Surgery at [address] Caitlyn Hirsch MD [facility] [place] [address] 03/20/2024 9:00 AM EST Office Visit Hematology and Oncology at [place] [address] Ericka Forrest [facility] DR HEMATOLOGY [place] [address] 07/29/2024 2:00 PM EDT Office Visit Radiation Oncology at [address] [phone] Kasie Marte MD [facility] [place] [address] documented as of this encounter Procedures Procedure Name Priority Date/Time Associated Diagnosis Comments XR ANKLE MIN 3 VIEWS LEFT Routine 11/30/2016 4:06 PM EDT Rupture of left Achilles tendon, sequela documented [...] the site of avulsion. Procedure Note Asha Hanks MD - 11/30/2016 EXAMINATION: XR ANKLE MIN [...] deformity Michael Larsen MD IMG DX ORDERABLES documented in this encounter Visit Diagnoses Diagnosis Rupture of left Achilles tendon, sequela documented in this encounter Care Teams Transmitter Engineer In Charge Relationship Specialty Start Date End Date Haylee Baptiste MD [address] [place] [address] PCP - General 01/21/10 documented as of this encounter
--- OUTSIDE RECORDS SUMMARY | 2023-12-15 12:40 | XMS_ITS | Encounter Summary ---
Author Organization [facility] Address [facility] [place] [address] Care Team Providers Care Electro Mechanical Solar Technician Name Role Phone Haylee Baptiste MD Primary Care Provider [phone] Encounter Details Date Type Department Care Team (Late st Contact Info) Description 12/23/2020 Ancillary Procedure Radiology Library at [facility] [place] [place] [address] Haylee Baptiste MD [address] [place] [address] Social History Tobacco Use Types [...] Visit (TeleHealth) Hematology and Oncology at [facility] [place] [place] [phone] Kati Burnette MD [facility] HEMATOLOGY [place] [address] 01/24/2024 9:30 AM EST Appointment XRay at [address] [place] [address] Jimmy Swann MD [facility] [place] [address] 01/24/2024 11:00 AM EST Office Visit Pain and Spine Center at [place] [address] Regulo Wang PA [facility] [place] [address] 01/24/2024 2:45 PM EST Appointment Mammography at [place] [address] 01/24/2024 3:45 PM EST Office Visit General Surgery at [place] [phone] Caitlyn Hirsch MD [facility] [place] [address] 03/20/2024 9:00 AM EST Office Visit Hematology and Oncology at [address] Ericka Forrest, [facility] DR [place] [address] 07/29/2024 2:00 PM EDT Office Visit Radiation Oncology at [address] [phone] Kasie Marte MD [facility] [place] [address] documented as of this encounter Procedures Procedure Name Priority Date/Time Associated Diagnosis Comments FILM LIBRARY STORAGE ONLY MAMMO Routine 12/23/2020 12:00 AM EST documented in this encounter Results * Film Library- Storage Only Mammo (12/23/2020 12:00 AM EST) Narrative GINA LIVINGSTON - 01/01/2021 1:50 PM EST This exam is auto-finalizing. It's purpose is for storage only. Haylee Baptiste MD IMG FILM LIBRARY ORD ERABLES [place], [place] documented in this encounter Visit Diagnoses Not on filedocumented in this encounter Care Teams Electro Mechanical Solar Technician Relationship Specialty Start Date End Date Haylee Baptiste MD [address] [place] [address] PCP - General 01/21/10 documented as of this encounter
--- OUTSIDE RECORDS SUMMARY | 2023-12-15 12:40 | XMS_ITS | Encounter Summary ---
Author Organization [facility] Address [facility] [place] [address] Care Team Providers Care Commissary Production Supervisor Name Role Phone Haylee Baptiste MD Primary Care Provider [phone] Encounter Details Date Type Department Care Team (Late st Contact Info) Description 09/24/2018 Ancillary Procedure Radiology Library [place] [place] [address] Darinel Squires MD [address] [place] [address] TELE-[place] [address] Social History Tobacco Use Types Packs/Day Years [...] TH Visit (TeleHealth) [place] [address] Kati Burnette MD [facility] H[place]AT[place] [address] 01/24/2024 9:30 AM EST Appointment XRay at [address] [place] [phone] Jimmy Swann MD [facility] [place] [address] 01/24/2024 11:00 AM EST Office Visit [place] [phone] Regulo Wang PA [facility] [place] [address] 01/24/2024 2:45 PM EST [place] [phone] 01/24/2024 3:45 PM EST Office [place] [phone] Caitlyn Hirsch MD [facility] [place] [address] 03/20/2024 9:00 AM EST Office Visit [place] [phone] Ericka Forrest, [facility] DR HEMATOLOGY [place] [address] 07/29/2024 2:00 PM EDT Office Visit Radiation Oncology at [address] [phone] Kasie Marte MD [facility] [place] [address] documented as of this encounter Procedures Procedure Name Priority Date/Time Associated Diagnosis Comments FILM LIBRARY STORAGE ONLY DX CHEST Routine 09/24/2018 12:00 AM EDT documented in this encounter Results * Film Library- Storage Only DX Chest (09/24/2018 12:00 AM EDT) Narrative [facility] - 09/26/2018 1:29 PM EDT This exam is auto-finalizing. It's purpose is for storage only. Darinel Squires MD IMG FILM LIBRARY ORD ERABLES [place], [place] documented in this encounter Visit Diagnoses Not on filedocumented in this encounter Care Teams Commissary Production Supervisor Relationship Specialty Start Date End Date Haylee Baptiste MD [address] [place] [address] PCP - General 01/21/10 documented as of this encounter
--- OUTSIDE RECORDS SUMMARY | 2023-12-15 12:40 | XMS_ITS | Encounter Summary ---
Author Organization [facility] Address [facility] [place] [address] Care Team Providers Care Heating Unit Installer Name Role Phone Haylee Baptiste MD Primary Care Provider [phone] Encounter Details Date Type Department Care Team (Late st Contact Info) Description 09/23/2018 Ancillary Procedure Radiology Library [place] [phone] Darinel Squires MD [address] [place] [address] [place] [address] Social History Tobacco Use Types Packs/Day Years [...] TH Visit (TeleHealth) Hematology [place] [address] aKti Burnette MD [facility] [place]ATOLOG[place] [address] 01/24/2024 9:30 AM EST Appointment XRay at [address] [place] [phone] Jimmy Swann MD [facility] [place] [address] 01/24/2024 11:00 AM EST Office Visit Pain [place] [phone] Regulo Wang PA [facility] [place] [address] 01/24/2024 2:45 PM EST Appointment [place] [phone] 01/24/2024 3:45 PM EST Office [place] [phone] Caitlyn Hirsch MD [facility] [place] [address] 03/20/2024 9:00 AM EST Office Visit Hematology [place] [phone] Ericka Forrest, [facility] DR [place] [address] 07/29/2024 2:00 PM EDT Office Visit Radiation Oncology at [address] [phone] Kasie Marte MD [facility] [place] [address] documented as of this encounter Procedures Procedure Name Priority Date/Time Associated Diagnosis Comments FILM LIBRARY STORAGE ONLY ULTRASOUND STUDY Routine 09/23/2018 12:00 AM EDT documented in this encounter Results * Film Library- Storage Only Ultrasound Study (09/23/2018 12:00 AM EDT) Narrative [facility] - 09/26/2018 1:28 PM EDT This exam is auto-finalizing. It's purpose is for storage only. Darinel Squires MD IMG FILM LIBRARY ORD ERABLES [place], [place] documented in this encounter Visit Diagnoses Not on filedocumented in this encounter Care Teams Heating Unit Installer Relationship Specialty Start Date End Date Haylee Baptiste MD [address] [place] [address] PCP - General 01/21/10 documented as of this encounter
--- OUTSIDE RECORDS SUMMARY | 2023-12-15 12:40 | XMS_ITS | Encounter Summary ---
Author Organization [facility] Address [facility] [place] [address] Care Team Providers Care Emergency Spill Response Technician Name Role Phone Haylee Baptiste MD Primary Care Provider [phone] Encounter Details Date Type Department Care Team (Late st Contact Info) Description 10/19/2016 3:47 PM EDT - 10/19/2016 11:59 PM EDT Hospital Encounter XRay at [address] [place] [address] Michael Larsen MD [facility] [place] [address] Left wrist fracture, with routine healing, subsequent encounter Discharge Disposition: [...] End Date fluticasone propionate (Flonase) 50 mcg/actuation [place], Suspension 1 spray by Each Nare route [...] TH Visit (TeleHealth) [place]ematology [place] [address] Kati Burnette MD [facility] HEMATOLOGY [place] [address] 01/24/2024 9:30 AM EST Appointment XRay at [address] [place] [address] Jimmy Swann MD [facility] [place] [place] [address] 01/24/2024 11:00 AM EST Office Visit Pain and Spine Center at [place] [phone] Regulo Wang PA [facility] [place] [address] 01/24/2024 2:45 PM EST Appointment Mammography at [address] 01/24/2024 3:45 PM EST Office Visit General Surgery at [place] [phone] Caitlyn Hirsch MD [facility] [place] [address] 03/20/2024 9:00 AM EST Office Visit Hematology and Oncology at [place] [phone] Ericka Forrest, [facility] DR [place] [address] 07/29/2024 2:00 PM EDT Office Visit Radiation Oncology at [address] [address] Kasie Marte MD [facility] [place] [address] documented as of this encounter Procedures Procedure Name Priority Date/Time Associated Diagnosis Comments XR WRIST 3 VIEWS LEFT Routine 10/19/2016 4:21 PM EDT Left wrist fracture, with routine healing, subsequent [...] wrist. COMPARISON: Radiographs of the left wrist [facility] [place] 09/15/2016; outside institution radiographs of the [...] marginal osteophytes again noted. Procedure Note Katya Brito MD - 10/19/2016 EXAMINATION: XR WRIST COMPLETE MIN 3 VIEWS LEFT (GENERIC) CLINICAL HISTORY: check status of healing TECHNIQUE: PA, lateral, oblique, and navicular views of the left wrist. COMPARISON: Radiographs of the left wrist [facility] dated 09/15/2016; outside institution radiographs of the [...] encounter documented in this encounter Care Teams Emergency Spill Response Technician Relationship Specialty Start Date End Date Haylee Baptiste MD [address] [place] [address] PCP - General 01/21/10 documented as of this encounter
--- OUTSIDE RECORDS SUMMARY | 2023-12-15 12:40 | XMS_ITS | Encounter Summary ---
Author Organization [facility] [place] [address] Care Team Providers Care Dielectric Press Operator Name Role Phone Haylee Baptiste MD Primary Care Provider [phone] Reason for Visit * Reason Comments Follow-up L achilles rupture and L scaphoid fx Encounter Details Date Type Department Care Team (Late st Contact Info) Description 01/13/2017 3:30 PM EST Office [place] [phone] Britt Munguia PA [facility] [place] [address] Rupture of left Achilles tendon, sequela Social [...] Sign Reading Time Taken Comments Blood Pressure 137/79 01/13/2017 3:33 PM EST Pulse 87 01/13/2017 3:33 PM EST Temperature - - Respiratory Rate - - Oxygen Saturation - - Inhaled Oxygen Concentration - - Weight 80.7 kg (178 lb) 01/13/2017 3:33 PM EST v erbal Height 157.5 cm (5' 2) 01/13/2017 3:33 PM EST v erbal Body Mass Index 32.56 01/13/2017 3:33 PM EST documented in this encounter Progress Notes * Britt Munguia PA - 01/13/2017 3:30 PM EST Chief Complaint: Encounter Diagnosis Name Primary? Rupture of left Achilles tendon, sequela History of present illness: Nallely Velazquez is a 62 y.o. year-old female presenting for follow-up post Achilles rupture of the left date of injury 09/02/2016. She reports that she has completed occupational therapy yesterday and is having her final PT evaluation next week. She describes some discomfort occasionally however this is minimal. She is not currently taking pain medication. Past medical history: Patient Active Problem List Diagnosis Date Noted ??? Closed fracture of left wrist 11/04/2016 ??? Left hand pain 10/18/2016 ??? Achilles tendon tear, left 09/06/2016 ??? Type 2 diabetes mellitus with hyperglycemia, with long-term current use of insulin 09/06/2016 ??? Hypertension 09/06/2016 ??? residential current use of antithrombotics/antiplatelets 09/06/2016 ??? Prinzmetal [...] No chest pain or shortness of breath at baseline No fevers, night sweats or chills Vital signs: Most Recent Vitals: 01/13/17 1533 BP: 137/79 Pulse: 87 Physical Exam: No Apparent distress No erythema, edema, ecchymosis noted. Ankle Plantarflexion 40, 5/5, no pain with resistance Dorsiflexion 20, 5/5, no pain with resistance Inversion 30, 5/5, no pain with resistance Eversion 20, 5/5, no pain with resistance PT/DP pulses 2+. Superficial peroneal, deep peroneal, sural, saphenous, and tibial nerves intact totouch. Imaging: Personal review of the patient's imaging reveals: No fractures or dislocations noted. Assessment: 62 y.o. year-old female Follow-up (L achilles rupture 09/02/16 and L scaphoid fx) Plan: We had a long talk about the nature of the Pt complaint. We reviewed the images together which shows no fractures or dislocations noted. Clinically Nallely is doing well. Her range of motion has improved since her last visit. Her pain level is decreasing as well. At this point we do not need to see Nallely back unless she has future issues. She requests a return to work for full duty. I provided this for her. Follow up: As needed This plan was discussed with the patient and they are in agreement. All of the patient's questions were answered. The above dictation was made with voice recogonition software Britt Munguia PA-C documented in this encounter Plan of Treatment Upcoming Encounters Date Type Department Care Team (Late st Contact Info) Description 01/09/2024 2:20 PM EST TH Visit (TeleHealth) [place] [address] Kati Burnette MD [facility] [place] [address] 01/24/2024 9:30 AM EST Appointment XRay at [address] [place] [address] Jimmy Swann MD [facility] [place] [address] 01/24/2024 11:00 AM EST Office Visit Pain and Spine Center at [place] [address] Regulo Wang PA [facility] [place] [place] [address] 01/24/2024 2:45 PM EST Appointment Mammography at [place] [address] 01/24/2024 3:45 PM EST Office Visit General Surgery at [place] [address] Caitlyn Hirsch MD [facility] [place] [place] [address] 03/20/2024 9:00 AM EST Office Visit Hematology and Oncology at [place] [address] Ericka Forrest, [facility] [place] [address] 07/29/2024 2:00 PM EDT Office Visit Radiation Oncology at [address] [phone] Kasie Marte MD [facility] [place] [address] documented as of this encounter Visit Diagnoses Diagnosis Rupture of left Achilles tendon, sequela documented in this encounter Care Teams Dielectric Press Operator Relationship Specialty Start Date End Date Haylee Baptiste MD [address] [place] [address] PCP - General 01/21/10 documented as of this encounter
--- OUTSIDE RECORDS SUMMARY | 2023-12-15 12:40 | XMS_ITS | Encounter Summary ---
Author Organization [facility] Address [facility] [place] [address] Care Team Providers Care Equalizing Saw Operator Name Role Phone Haylee Baptiste MD Primary Care Provider [phone] Reason for Referral * Physical Therapy (Routine) - Specialty Diagnoses / Procedures Referred By Mike jalloh Referred To Contact Physical Therapy Diagnoses Closed fracture of left wrist, with routine healing, subsequent encounter Michael Larsen MD [facility] [address] Referral ID Status Reason Start Date Expiration Date V isits Requested Visits Authorized [id number] Evaluate and Treat 11/04/2016 05/03/2017 20 20 Encounter Details Date Type Department Care Team (Late st Contact Info) Description 11/04/2016 Orders [place] [address] Michael Larsen MD [facility] [place] [address] Closed fracture of left wrist, with routine healing, subsequent encounter Social History [...] TH Visit (TeleHealth) Hematology and Oncology at [place] [phone] Kati Burnette MD [facility] DR HEMATOLOGY [place] [address] 01/24/2024 9:30 AM EST Appointment XRay at [address] [place] Jimmy Swann MD [facility] [place] [address] 01/24/2024 11:00 AM EST Office Visit Pain and Spine Center at [address]1000 Regulo Wang PA [facility] [place] [address] 01/24/2024 2:45 PM EST Appointment Mammography at [place] [phone] 01/24/2024 3:45 PM EST Office Visit General Surgery at [address]1000 Caitlyn Hirsch MD [facility] [place] [address] 03/20/2024 9:00 AM EST Office Visit Hematology and Oncology at [place] [phone] Ericka Forrest, [facility] DR HEMATOLOGY [place] [address] 07/29/2024 2:00 PM EDT Office Visit Radiation Oncology at [address] [address] Kasie Marte MD [facility] [place] [address] Scheduled Referrals Name Type Priority Associated Diagnoses Orde r Schedule Referral to Physical Therapy Outpatient Referral Routine Closed fracture of left wrist, with routine healing, subsequent encounter Ordered: 11/04/2016 documented as of this encounter Visit Diagnoses Diagnosis Closed fracture of left wrist, with routine healing, subsequent encounter documented in this encounter Care Teams Equalizing Saw Operator Relationship Specialty Start Date End Date Haylee Baptiste MD [address] [place] [address] PCP - General 01/21/10 documented as of this encounter
--- OUTSIDE RECORDS SUMMARY | 2023-12-15 12:41 | XMS_ITS | Encounter Summary ---
Author Organization [facility] Address [facility] [place] [address] Care Team Providers Care Shake Feeder Name Role Phone Haylee Baptiste MD Primary Care Provider [phone] Encounter Details Date Type Department Care Team (Late st Contact Info) Description 03/21/2003 Orders Only Dermatology at [facility] [address] [place] [address] Rachael Unger MD [facility] [place] [address] Social History Tobacco Use Types Packs/Day Years Used Date Smoking Tobacco: Never Assessed Overall Financial Resource Strain (CARDIA) Answe r [...] TH Visit (TeleHealth) Hematology and Oncology at [place] [phone] Kati Burnette MD [facility] DR HEMATOLOGY [place] [address] 01/24/2024 9:30 AM EST Appointment XRay at [address] [place] [address] Jimmy Swann MD [facility] [place] [address] 01/24/2024 11:00 AM EST Office Visit Pain and Spine Center at [place] [address] Regulo Wang PA [facility] [place] [address] 01/24/2024 2:45 PM EST Appointment Mammography at [place] [address] 01/24/2024 3:45 PM EST Office Visit General Surgery at [place] [address] Caitlyn Hirsch MD [facility] [place] [address] 03/20/2024 9:00 AM EST Office Visit Hematology and Oncology at [place] [phone] Ericka Forrest, [facility] DR HEMATOLOGY [place] [address] 07/29/2024 2:00 PM EDT Office Visit Radiation Oncology at [address] [address] Kasie Marte MD [facility] [place] [address] documented as of this encounter Procedures Procedure Name Priority Date/Time Associated Diagnosis Comments SURGICAL PATHOLOGY REPORT Routine 03/21/2003 4:38 PM EST documented in this encounter Results * Surgical Pathology Report (03/21/2003 4:38 PM EST) Surgical Pathology Report [id number] ? Location: The signing pathologist has (i) examined the relevant preparation(s) for the specimen(s) and (ii) rendered or confirmed the diagnosis(es). . 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 Labeled with the patient's name and medical record ?number, formalin. Qty/Size/Weight: ?Single punch, 0.3 cm, with a smooth, hinds-capps ?surface. Sections/Processi ng: ??(T1) ??aje/PPS Microscopic Description Slides reviewed, microscopic description not recorded. Diagnosis Granulomatous inflammation, punch biopsy, right cheek (see Comment). CR-0 03/25/03 [facility] 03/25/03 Verified by: ? Vianney Schwartz MD ?Dermatopatholog ist ?(Electronic Signature) The attending pathologist whose signature appears on this report has reviewed all diagnostic slides and has edited the gross and/or microscopic portion of the report in rendering the final pathologic diagnosis. Comment The biopsy shows non-caseating epithelioid granulomas within the dermis, some of which are adjacent to hair follicles. 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 ??PAS fungal stain and AFB stain are negative. ESTEE FARAH 03/21/2003 4:38 PM EST Rachael Unger MD PATHOLOGY/CYTOLOGY O [facility] Performing Organization Address City/State/[facility] Co de Phone Number ESTEE FARAH documented in this encounter Visit Diagnoses Not on filedocumented in this encounter Care Teams Shake Feeder Relationship Specialty Start Date End Date Haylee Baptiste MD [address] [place] [address] PCP - General 01/21/10 documented as of this encounter
--- OUTSIDE RECORDS SUMMARY | 2023-12-15 12:41 | XMS_ITS | Encounter Summary ---
Author Organization [facility] Address [facility] [place] [address] Care Team Providers Care Sealing Machine Operator Name Role Phone Haylee Baptiste MD Primary Care Provider [phone] Encounter Details Date Type Department Care Team (Late st Contact Info) Description 08/03/2010 1:25 PM EDT Procedure visit [address] [address] Social History Tobacco Use Types Packs/Day Years [...] TH Visit (TeleHealth) [place] [phone] Kati Burnette MD [facility] [place] [address] 01/24/2024 9:30 AM EST Appointment XRay at [address] [place] [phone] Jimmy Swann MD [facility] [place] [address] 01/24/2024 11:00 AM EST Office Visit Pain and Spine Center at [place] [phone] Regulo Wang PA [facility] [place] [address] 01/24/2024 2:45 PM EST Appointment Mammography at [place] [address] 01/24/2024 3:45 PM EST Office Visit General Surgery at [place] [address] Caitlyn Hirsch MD [facility] [place] [address] 03/20/2024 9:00 AM EST Office Visit Hematology and Oncology at [place] [address] Ericka Forrest, [facility] DR HEMATOLOGY [place] [address] 07/29/2024 2:00 PM EDT Office Visit Radiation Oncology at [address] [phone] Kasie Marte MD [facility] [place] [address] documented as of this encounter Visit Diagnoses Not on filedocumented in this encounter Care Teams Sealing Machine Operator Relationship Specialty Start Date End Date Haylee Baptiste MD [address] [place] [address] PCP - General 01/21/10 documented as of this encounter
--- OUTSIDE RECORDS SUMMARY | 2023-12-15 12:41 | XMS_ITS | Encounter Summary ---
Author Organization [facility] Address [facility] [place] [address] Care Team Providers Care Form Maker Plaster Name Role Phone Haylee Baptiste MD Primary Care Provider [phone] Encounter Details Date Type Department Care Team (Late st Contact Info) Description 10/19/2015 Ancillary Procedure Radiology Library at [facility] [place] [address] Haylee Baptiste MD [address] [place] [address] Social History Tobacco Use Types Packs/Day Years Used Date Smoking Tobacco: Never Alcohol Use Standard Drinks/Week Comments [...] TH Visit (TeleHealth) Hematology and Oncology at [facility] [place] [phone] Kati Burnette MD [facility] [place] [address] 01/24/2024 9:30 AM EST Appointment XRay at [address] [place] [phone] Jimmy Swann MD [facility] [place] [address] 01/24/2024 11:00 AM EST Office Visit Pain and Spine Center at [place] [address] Regulo Wang PA [facility] [place] [address] 01/24/2024 2:45 PM EST Appointment Mammography at [place] [address] 01/24/2024 3:45 PM EST Office Visit General Surgery at [place] [address] Caitlyn Hirsch MD [facility] [place] [address] 03/20/2024 9:00 AM EST Office Visit Hematology and Oncology at [place] [address] Ericka Forrest, [facility] DR HEMATOLOGY [place] [address] 07/29/2024 2:00 PM EDT Office Visit Radiation Oncology at [address] [phone] Kasie Marte MD [facility] [place] [address] documented as of this encounter Procedures Procedure Name Priority Date/Time Associated Diagnosis Comments FILM LIBRARY STORAGE ONLY MAMMO Routine 10/19/2015 12:00 AM EDT documented in this encounter Results * Film Library- Storage Only Mammo (10/19/2015 12:00 AM EDT) Narrative [facility] - 01/01/2021 1:49 PM EST This exam is auto-finalizing. It's purpose is for storage only. Haylee Baptiste MD IMG FILM LIBRARY ORD ERABLES [facility] [place], [place] documented in this encounter Visit Diagnoses Not on filedocumented in this encounter Care Teams Form Maker Plaster Relationship Specialty Start Date End Date Haylee Baptiste MD [address] [place] [address] PCP - General 01/21/10 documented as of this encounter
--- OUTSIDE RECORDS SUMMARY | 2023-12-15 12:41 | XMS_ITS | Encounter Summary ---
Author Organization [facility] Address [facility] [place] [address] Care Team Providers Care Staff Technologist Name Role Phone Haylee Baptiste MD Primary Care Provider [phone] Encounter Details Date Type Department Care Team (Late st Contact Info) Description 09/03/2016 [place] [address] Joshua Simpson MD [facility] DR ORTHOP[place] [address] Social History Tobacco Use Types Packs/Day Years Used Date Smoking Tobacco: Never Alcohol Use Standard Drinks/Week Comments No 0 (1 standard drink = 0.6 oz pur e alcohol) Sex and Gender Information Value Date Recorded Sex Assigned at Not on file Gender Identity Not on file Sexual Orientation Not on file documented as of this encounter Miscellaneous Notes * Telephone Encounter - Joshua Simpson - 09/03/2016 1:26 AM EDT TELEPHONE CONSULTATION: Ms. Velazquez is a 61-year-old female for whom I was called by an emergency provider at [facility]. Per the report of the provider, the patient suffered an injury to her lower extremity in the area of her ankle. Per the report of the provider, imaging was negative for any sort of acute fracture. However, the imaging as well as the provider's exam was concerning for an Achilles tendon rupture. The provider reported that she planned to place the patient in a splint with a slight equinus posture and requested followup for the patient, and I informed the provider that we would be happy to see this patient in followup and will have our rib trim separator schedule her a followup and contact the patient. The patient may expect to be contacted some time early in the week regarding a followup. The provider expressed understanding of the treatment plan. All questions were answered satisfactorily. documented in this encounter Plan of Treatment Upcoming Encounters Date Type Department Care Team (Late st Contact Info) Description 01/09/2024 2:20 PM EST TH Visit (TeleHealth) Hematology and Oncology at [place] [phone] Kati Burnette MD [facility] DR HEMATOLOGY [place] [address] 01/24/2024 9:30 AM EST Appointment XRay at [address] [place] [phone] Jimmy Swann MD [facility] [place] [address] 01/24/2024 11:00 AM EST Office Visit Pain and Spine Center at [place] [phone] Regulo Wang PA [facility] [place] [address] 01/24/2024 2:45 PM EST Appointment Mammography at [place] [phone] 01/24/2024 3:45 PM EST Office Visit General Surgery at [place] [phone] Caitlyn Hirsch MD [facility] [place] [address] 03/20/2024 9:00 AM EST Office Visit Hematology [place] [address] Ericka Forrest, [facility] HEMATOLOGY [place] [address] 07/29/2024 2:00 PM EDT Office Visit Radiation Oncology at [address] [phone] Kasie Marte MD [facility] [place] [address] documented as of this encounter Visit Diagnoses Not on filedocumented in this encounter Care Teams Staff Technologist Relationship Specialty Start Date End Date Haylee Baptiste MD [address] [place] [address] PCP - General 01/21/10 documented as of this encounter
--- OUTSIDE RECORDS SUMMARY | 2023-12-15 12:41 | XMS_ITS | Encounter Summary ---
Author Organization [facility] [place] [address] Care Team Providers Care Mine Foreman Name Role Phone Kika Patel MD Primary Care Provider [phone] Encounter Details Date Type Department Care Team (Late st Contact Info) Description 01/19/2010 12:05 AM EST Ancillary Procedure Radiology Library at [facility] [address] Haylee Baptiste MD [address] [place] [phone] Social History Tobacco Use Types Packs/Day Years [...] TH Visit (TeleHealth) Hematology and Oncology at [facility] [place] [address] Kati Burnette MD [facility] HEMATOLOGY [place] [address] 01/24/2024 9:30 AM EST Appointment XRay at [address] [place] [phone] Jimmy Swann MD [facility] [place] [address] 01/24/2024 11:00 AM EST Office Visit [facility] [place] [address] Regulo Wang PA [facility] [place] [address] 01/24/2024 2:45 PM EST [place] [phone] 01/24/2024 3:45 PM EST Office [place] [phone] Caitlyn Hirsch MD [facility] [place] [address] 03/20/2024 9:00 AM EST Office Visit Hematology [place] [phone] Ericka Forrest, [facility] DR HEMATOLOGY [place] [address] 07/29/2024 2:00 PM EDT Office Visit Radiation Oncology at [address] [phone] Kasie Marte MD [facility] DR [place] [address] documented as of this encounter Procedures Procedure Name Priority Date/Time Associated Diagnosis Comments FILM LIBRARY STORAGE ONLY MAMMO Routine 01/19/2010 12:05 AM EST documented in this encounter Results * Film Library- Storage Only Mammo (01/19/2010 12:05 AM EST) Narrative [facility] - 02/26/2021 8:49 PM EST This exam is auto-finalizing. It's purpose is for storage only. Haylee Baptiste MD IMG FILM LIBRARY ORD ERABLES [facility] [place], [place] documented in this encounter Visit Diagnoses Not on filedocumented in this encounter Care Teams Mine Foreman Relationship Specialty Start Date End Date Kika Patel MD [address] [place] [address] PCP - General 12/29/09 01/20/10 documented as of this encounter
--- OUTSIDE RECORDS SUMMARY | 2023-12-15 12:41 | XMS_ITS | Encounter Summary ---
Author Organization [facility] [place] [address] Care Team Providers Care Brand Analyst Name Role Phone Haylee Baptiste MD Primary Care Provider [phone] Reason for Visit * Auth/Cert Specialty Diagnoses / Procedures Referred By Mike jalloh Referred To Contact Diagnoses ASCVD Procedures CARDIAC CATHETERIZATION Referral ID Status Reason Start Date Expiration Date Visits Re quested Visits Authorized [id number] 1 1 Encounter Details Date Type Department Care Team (Latest Contact Info) Description 01/14/2015 6:38 AM EST - 01/14/2015 2:30 PM [facility] Hospital Encounter [place] [address] Jonnathan Nielsen MD [facility] [address] ASCVD (arteriosclerotic cardiovascular disease) Discharge Disposition: Home Social History Tobacco Use [...] Sign Reading Time Taken Comments Blood Pressure 148/82 01/14/2015 2:20 PM EST Pulse 87 01/14/2015 2:20 PM EST Temperature 36.6 ??C (97.9 ??F) 01/14/2015 12:[address] Respiratory Rate 18 01/14/2015 2:20 PM EST Oxygen Saturation 99% 01/14/2015 2:20 PM EST Inhaled Oxygen Concentration - - Weight 77.1 kg (170 lb) 01/14/2015 6:49 AM EST Height 157.5 cm (5' 2.01) 01/14/2015 6:49 AM ES T Body Mass Index 31.09 01/14/2015 6:49 AM EST documented in this encounter Discharge Instructions * Discharge Instructions* Yolanda Iglesias RN - 01/14/2015 12:44 PM EST Radial Access for Heart Cath Activity If you are discharged the same day as your procedure, do not drive yourself home. Arrange to have another person drive. You may walk around when you get home, but keep your activity at a minimum until the morning. Try to avoid bending your wrist for the first 12-24 hours after the procedure to allow the artery to fully heal. Do not participate in active sports for 48 hours. Do not lift anything greater than 5 lbs. You may engage in sexual activity after 48 hours. Catheter Insertion Area Care Take the dressing off of the catheter insertion site the morning following the procedure. Leave thesite open to air. If the site is oozing you may cover it with a band aid. You may take a shower if you wish. Look for signs of infection over the next several days. It is uncommon to have any visible blood at the site, any obvious bleeding is abnormal. A bruise around the wrist or small lump under the skin is normal: they generally disappear in 3-5 days. Expect some mild tenderness over the area where the catheter was inserted. You will notice this after the local anesthetic (numbing medicine) wears off. This should improve during the 24-48 hours after the procedure. You may use acetaminophen (tylenol) if needed. Contact your doctor if the discomfort worsens. Problems to Watch for If there is bright red blood flowing from the catheter insertion area: *stop what you are doing *hold pressure steadily on the area for 15 minutes *call for help *if the bleeding does not stop in 15 minutes call 911 for an ambulance. If there is swelling with black and blue color at the catheter insertion site, there may be bleeding inside. Contact the doctor if there is any increase in size. Look at the insertion site for the first few days at home. Signs of infection are: *redness *swelling *yellow, white, green or brown foul smelling drainage. *increased soreness If you think there is an infection, take your temperature. Then call your doctor. The limb on the side where you had your catheterization should look and feel normal in color, sensation, and temperature. If your hand or fingers become cool, pale, blue or change color contact your doctor. If you are having numbness or tingling in your fingers or hand contact your doctor. If you feel faint or dizzy, lie down with your feet elevated. Have someone call the doctor. If you are alert, drink fluids. How to Deal with Chest Pain If you had only the cardiac catheterization, treat any angina or chest discomfort as instructed. Stop what you are doing, and sit or lie down. If prescribed, take nitroglycerin under your tongue. If the angina isn't relieved, take another nitroglycerin in 5 minutes. After another 5 minutes, a third nitroglycerin may be taken. If the angina isn't improved you should call for an ambulance to bring you to the nearest hospital emergency room. If your angina is more frequent or severe than before, contact your doctor. We usually would not expect you to have angina after an angioplasty. If you do get angina, treat itas you did before, but also contact your doctor. Return to Work The doctor will usually have told you when to return to work. If you do not perform heavy physical labor, most people can return to work in a few days. Diet Follow your previous diet unless otherwise instructed. Cardiac Risk Factor If you have coronary artery disease, it is important that you help control it by reducing your cardiac risk factors. If you smoke, we urge you to stop now. If you think this is going to be a problem,let us know so that we may help you. We have dieticians who can help you learn about a low fat, lowcholesterol diet. Cardiac rehabilitation programs can help you set up a regular exercise program. Work with your doctor if you have high blood pressure or sugar diabetes to keep these under control. Medications Take your usual medications medication changes If you are taking medications prescribed by your doctor, do not take any hgkf-[id number] medicinesor herbal preparations without first discussing this with your doctor or pharmacist. There is the possibility of side effects and interactions when these are combined. Follow Up Care Who to call with questions or problems If there are any questions or problems that you think might be related to your cardiac cath or angioplasty, contact the refinery process engineer heating and ventilation engineer by calling [facility] at . documented in this encounter Medications at Time of Discharge Medication Sig Dispensed Refills Start Date End Date fluticasone propionate (Flonase) 50 mcg/actuation Hooper, Suspension 1 spray by Each Nare route as needed. 01/05/2015 traMADoL (Ultram) 50 mg tablet Take 50 mg by mouth every 6 hours as needed. 10/14/2013 023 nabumetone (RELAFEN) 750 mg Tablet Take 750 [...] as of this encounter Progress Notes * Harris Felder RN - 01/14/2015 7:45 AM EST ABSORB IV ENROLLMENT NOTE ABSORB IV RANDOMIZED CONTROLLED TRIAL A Clinical Evaluation of Absorb??? BVS, the Everolimus Eluting Bioresorbable Vascular Scaffold in the Treatment of Subjects with [place] Coronary Artery Lesions PI: Jonnathan Nielsen MD Pager #:[phone] Consent: Following the determination this potential participant did not have any obvious evidence of clinical exclusion to the ABSORB IV Randomized Controlled Trial, the subject was provided with a written informed consent. The purpose, procedures, risks, potential benefits of the study, as well as alternatives to participation were reviewed and questions were answered. The subject signed the informed cons ent agreeing to participate, providing angiographic inclusion criteria are satisfied. The subject was provided with a copy of the signed informed consent document. Purpose: The pivotal trial to support the [place] pre-market approval (PMA) of Absorb BVS. ABSORB IV will evaluate the safety and effectiveness of the Absorb BVS System compared to the XIENCE in the treatment of subjects, including those with diabetes mellitus, with ischemic heart disease caused by up to three [place] coronary artery lesions in two separate epicardial vessels. Study Design: A prospective, randomized (2:1 ABSORB BVS to XIENCE), single-blind, multi-center trial registering ~3000 patients. Subject Enrollment, Randomization and Registration: - Subjects are considered enrolled in ABSORB IV after signing the Informed Consent. - Subjects are considered randomized in ABSORB IV after the interactive voice response system (IVRS) has been called and a device (Absorb BVS or XIENCE) has been assigned. - Subjects are considered registered in the ABSORB IV upon randomization. Ms. Selam Velazquez was not randomized into ABSORB IV. She did not meet angiographic criteria. documented in this encounter H&P Notes * Sara Aguirre PA - 01/14/2015 8:06 AM EST Pre-Cardiac Catheterization Assessment History: Nallely Velazquez here to be evaluated prior to planned or possible diagnostic/?therapeutic cardiac catheterization. She has a two year history of anginal symptoms recently evaluated with a stress echo showing possible anterior wall ischemia. 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 No residual. DM for about 10 years. Last Hgb A1c 11.1 Sarcoid history initially thought to Lupus. Sarcoid dx made biopsy. No current facility-administered medications on file prior to encounter. Current Outpatient Prescriptions on File Prior to Encounter Medication Sig Dispense Refill ??? omeprazole (PRILOSEC) 20 mg capsule 20MG, PO, Once daily ??? meclizine (ANTIVERT) 25 mg tablet 25MG, PO, Three times daily PRN ??? atorvastatin (LIPITOR) 80 mg tablet 80MG = 1 Tablet(s), PO, Once daily ??? ASPIRIN ORAL Allergies Allergen Reactions ??? Iodine And Iodide Containing Products CIS - Anaphylaxis ??? Codeine Phosphate CIS - Nausea/Vomiting ??? Meperidine Hcl CIS - Nausea/Vomiting ??? Morphine Sulfate CIS - Nausea/Vomiting ??? Oxaprozin CIS - Nausea/Vomiting ??? Prednisone CIS - Rash with dose greater than 20mg. ??? Sulindac CIS - Nausea/Vomiting There is no problem list on file for this patient. Coronary Risk factors: Smoking:never Hypertension: pos Diabetes:pos Lipid disorder: pos Family history: pos Known or suspected valvular heart disease: none Ventricular function known: 65% Functional testing results: anterior ischemia Physical Exam: She appears well, in no apparent distress. Alert and oriented times three, pleasant and cooperative. Filed Vitals: 01/14/15 0649 BP: 136/72 Pulse: 95 Temp: 36.4 ??C (97.5 ??F) Resp: 18 HEENT: No JVD or carotid distortions. Lungs: Clear to A+P Cor: NSR, S1 and S2 physiologic. No precordial heaves or thrills. PMI unremarkable. No audible murmur, rub or gallop. Abd: soft, nontender, no organomegaly or bruits Ext: Pulses well preserved, no edema, cyanosis. Renny's test +/- Right Neuro: physiologic Assessment: Angina with anterior ischemia seen on recent stress echo. Plan: Cardiac catheterization. 1. A discussion was held reviewing the benefits and attendant risks of diagnostic or therapeutic catheterization. The risks include, but are not limited to: stroke, , myocardial infarction, bleeding, limb loss, infection, dye reaction, vascular injury, arrhythmias. If an intervention is performed, risks would include the potential for vessel closure, need for emergency CABG, subacute closure, restenosis. The patient appears to understand these risks and benefits. The informed consent was signed. 2. Laboratory screening will be obtained before the procedure as ordered. 3. The patient's medications, NPO status after MN and other details of the planned procedure were discussed. Questions were addressed. 4. Follow up will be dependent on the results of the cardiac catheterization. documented in this encounter Plan of Treatment Upcoming Encounters Date Type Department Care Team (Late st Contact Info) Description 01/09/2024 2:20 PM EST TH Visit (TeleHealth) Hematology [place] [phone] Kati Burnette MD [facility] DR [place] [address] 01/24/2024 9:30 AM EST Appointment XRay at [address] [place] [phone] Jimmy Swann MD [facility] [place] [address] 01/24/2024 11:00 AM EST Office Visit Pain and Spine Center at [place] [phone] Regulo Wang PA [facility] [place] [address] 01/24/2024 2:45 PM EST Appointment Mammography at [place] [phone] 01/24/2024 3:45 PM EST Office Visit General Surgery at [place] [phone] Caitlyn Hirsch MD [facility] [place] [address] 03/20/2024 9:00 AM EST Office Visit Hematology [place] [address] Ericka Forrest, [facility] [place] [address] 07/29/2024 2:00 PM EDT Office Visit Radiation Oncology at [address] [phone] Kasie Marte MD [facility] [place] [address] documented as of this encounter Procedures Procedure Name Priority Date/Time Associated Diagnosis Comments POCT GLUCOSE Routine 01/14/2015 12:24 PM EST EKG 12-LEAD Routine 01/14/2015 7:03 AM EST ASCVD (arteriosclerotic cardiovascular disease) POCT GLUCOSE Routine 01/14/2015 6:55 AM EST documented in this encounter Results * (ABNORMAL) POCT Glucose (01/14/2015 12:24 PM EST) Pathologist [facility] Glucose, POC 276(H) 65 - 199 mg/dL [facility] Comment: Supplemental ranges: <140 mg/dL before meals <180 mg/dL all other times of the day Blood specimen (specimen) 01/14/2015 12:24 PM EST 01/14/2015 12:24 PM EST Jonnathan Kelley MD POINT OF CARE TEST O RDERABLES [facility] * EKG 12 Lead (01/14/2015 7:03 AM EST) Ventricular rate 91 BPM MUSE SYSTEM Atrial Rate 91 BPM MUSE SYSTEM P-R Interval 164 ms MUSE SYSTEM QRS Duration 80 ms MUSE SYSTEM Q-T Interval 336 ms MUSE SYSTEM QTC Calculated (Bezet) 413 ms MUSE SYSTEM Calculated P [place] 52 degrees MUSE SYSTEM Calculated R [place] 31 degrees MUSE SYSTEM Calculated T [place] 37 degrees MUSE SYSTEM INTERPRETATION Normal sinus rhythm Low voltage QRS Borderline ECG No previous ECGs available Confirmed by MD Elizabeth, Stalin ([id number]) on 01/14/2015 5:25:42 PM MUSE SYSTEM 01/14/2015 7:03 AM EST 01/14/2015 5:25 PM EST Jonnathan Kelley MD ECG ORDERABLES Performing Organization Address [facility] Co de Phone Number MUSE SYSTEM * (ABNORMAL) POCT Glucose (01/14/2015 6:55 AM EST) Glucose, POC 280(H) 65 - 199 mg/dL [facility] [employer] [facility] Comment: Supplemental ranges: <140 mg/dL before meals <180 mg/dL all other times of the day Blood specimen (specimen) 01/14/2015 6:55 AM EST 01/14/2015 6:55 AM EST Jonnathan Kelley MD POINT OF CARE TEST O RDERABLES Performing Organization Address [facility] Phone Number [facility] [employer] [facility] documented in this encounter Visit Diagnoses Diagnosis ASCVD (arteriosclerotic cardiovascular disease) Unspecified cardiovascular disease documented in this encounter Administered Medications Inactive Administered Medications - up to 3 most recent administrations Medication Order MAR Action Action Date Dose Rate Site diaZEPam (VALIUM) tablet 5 mg 5 mg, Oral, ONCE, 1 dose, On Mon01/14/15 at 0715, Cath (Day of Procedure), Routine Given 01/14/2015 8:08 AM EST 5 mg sodium chloride 0.9% infusion 50 mL/hr, Intravenous, CONTINUOUS, Starting on Mon01/14/15 at 0715, Until Mon01/14/15 at 0948, Cath (Day of Procedure) New Bag 01/14/2015 7:15 AM EST 50 mL/hr 50 mL/hr sodium chloride 0.9% infusion 100 mL/hr, Intravenous, CONTINUOUS, Starting on Mon01/14/15 at 1015, Until Mon01/14/15 at 1414 New Bag 01/14/2015 10:15 AM EST 100 mL/hr 100 mL/hr documented in this encounter Active and Recently Administered Medications Times are shown in EST. Scheduled Medication Order 2015 01/13/2015 01/14/2015 diaZEPam (VALIUM) tablet 5 mg (COMPLETED) 5 mg, Oral, ONCE, 1 dose, On Mon01/14/15 at 0715, Cath (Day of Procedure), Routine 0808 (Given - Provid er: Leia Henderson RN) Continuous Medication Order 2015 01/13/2015 01/14/2015 sodium chloride 0.9% infusion (CANCELED) 50 mL/hr, Intravenous, CONTINUOUS, Starting on Mon01/14/15 at 0715, Until Mon01/14/15 at 0948, Cath (Day of Procedure) 0715 (New Bag - Prov ider: Michelle Pelletier RN) sodium chloride 0.9% infusion () 100 mL/hr, Intravenous, CONTINUOUS, Starting on Mon01/14/15 at 1015, Until Mon01/14/15 at 1414 1015 (New Bag - Prov ider: Adrienne Wilson RN) PRN Medication Order 2015 01/13/2015 01/14/2015 aspirin chewable tablet (CANCELED) ONCE PRN, Starting on Mon01/14/15 at 0835, Until Mon01/14/15 at 1212, Cath (Intra-Procedure), Routine 0835 (Given - Provid er: Eugenio Carr RN - Comment: for Absorb4 study) heparin (porcine) injection (CANCELED) ONCE PRN, Starting on Mon01/14/15 at 0905, Until Mon01/14/15 at 1212, Cath (Intra-Procedure), Routine 09 (Given - Provid er: Eugenio Carr RN)0932 (Given - Provider: Eugenio Carr RN) nitroGLYcerin 100 mcg/mL intracoronary dilution (CANCELED) ONCE PRN, Starting on Mon01/14/15 at 0901, Until Mon01/14/15 at 1212, Cath (Intra-Procedure), Routine 09 (Given - Provid er: Jonnathan Kelley MD)0930 (Given - Provider: Jonnathan Kelley MD) verapamil (ISOPTIN) injection (CANCELED) ONCE PRN, Starting on Mon01/14/15 at 0901, Until Mon01/14/15 at 0948, Administer over 2 Minutes, Cath (Intra-Procedure) 900 (Given - Provid er: Jonnathan Kelley MD) documented in this encounter Care Teams Brand Analyst Relationship Specialty Start Date End Date Haylee Baptiste MD [address] [place] [address] PCP - General 01/21/10 documented as of this encounter
--- OUTSIDE RECORDS SUMMARY | 2023-12-15 12:41 | XMS_ITS | Encounter Summary ---
Author Organization [facility] Address [facility] [place] [address] Care Team Providers Care Advance Scout Name Role Phone Kika Patel MD Primary Care Provider [phone] Encounter Details Date Type Department Care Team (Late st Contact Info) Description 01/19/2010 Ancillary Procedure Radiology Library at [facility] [place] [phone] Haylee Baptiste MD [address] [place] [id number] Social History Tobacco Use Types Packs/Day Years [...] TH Visit (TeleHealth) Hematology and Oncology at [facility] [place] [address] Kati Burnette MD [facility] HEMATOLOGY [place] [address] 01/24/2024 9:30 AM EST Appointment XRay at [address] [place] [phone] Jimmy Swann MD [facility] [place] [address] 01/24/2024 11:00 AM EST Office Visit [place] [phone] Regulo Wang PA [facility] [place] [address] 01/24/2024 2:45 PM [place] [phone] 01/24/2024 3:45 PM EST Office Visit General Surgery at [place] [phone] Caitlyn Hirsch MD [facility] [place] [address] 03/20/2024 9:00 AM EST Office Visit [place]emat[place] [phone] Ericka Forrest, [facility] DR HEMATOLOGY [place] [address] 07/29/2024 2:00 PM EDT Office Visit Radiation Oncology at [address] [phone] Kasie Marte MD [facility] DR [place] [address] documented as of this encounter Procedures Procedure Name Priority Date/Time Associated Diagnosis Comments FILM LIBRARY-STORAGE ONLY US BREAST Routine 01/19/2010 12:00 AM EST documented in this encounter Results * Film Library Storage Only US Breast (01/19/2010 12:00 AM EST) Narrative [facility] - 02/26/2021 8:49 PM EST This exam is auto-finalizing. It's purpose is for storage only. Haylee Baptiste MD IM FILM LIBRARY ORD ERABLES [place], [place] documented in this encounter Visit Diagnoses Not on filedocumented in this encounter Care Teams Advance Scout Relationship Specialty Start Date End Date Kika Patel MD [address] [place] [address] PCP - General 12/29/09 01/20/10 documented as of this encounter
--- OUTSIDE RECORDS SUMMARY | 2023-12-15 12:41 | XMS_ITS | Encounter Summary ---
Author Organization [facility] [place] [address] Care Team Providers Care Diet Technician Registered Name Role Phone Haylee Baptiste MD Primary Care Provider [phone] Encounter Details Date Type Department Care Team (Latest Contact Info) Description 02/16/2011 12:57 PM EST - 02/16/2011 11:59 PM EST Hospital Encounter [place] [address] CLINIC, Haylee Mcneil MD [address] [place], [place] [id number] Abnormal mammogram, unspecified Discharge Disposition: Home Social History Tobacco Use Types Packs/Day Years Used Date Smoking Tobacco: Never Assessed Sex and Gender Information Value Date Recorded Sex Assigned at Not on file Gender Identity Not on file Sexual Orientation Not on file documented as of this encounter Medications at Time of Discharge Medication Sig Dispensed Refills Start Date End Date Ketoprofen 200 mg C24P 200MG, PO, Once daily 02/23/2006 01/13/2015 levothyroxine (SYNTHROID) 25 mcg tablet 25MCG, PO, Once daily 02/23/2006 01/13/2015 omeprazole (PRILOSEC) 20 mg capsule 20MG, PO, Once daily 02/23/2006 022 meclizine (ANTIVERT) 25 mg tablet 25MG, PO, Three times daily PRN 02/23/2006 08/29/2021 lisinopril (PRINIVIL;ZESTRIL) 5 mg tablet 5MG, PO, Once daily 02/23/2006 01/14/20 15 atorvastatin (LIPITOR) 80 mg tablet 80MG = 1 Tablet(s), PO, Once daily 02/23/2006 09/01/2021 ASPIRIN ORAL Take 81 mg by mouth. 02/23/200601/19/ 023 metFORMIN (GLUCOPHAGE) 500 mg tablet 500MG = 1 Tablet(s), PO, Twice daily 02/23/2006 01/13/2015 documented as of this encounter Plan of Treatment Upcoming Encounters Date Type Department Care Team (Late st Contact Info) Description 01/09/2024 2:20 PM EST TH Visit (TeleHealth) Hematology [place] [address] Kati Burnette MD [facility] HEMATOLOGY [place] [address] 01/24/2024 9:30 AM EST Appointment XRay at [address] [place] [phone] Jimmy Swann MD [facility] [place] [address] 01/24/2024 11:00 AM EST Office Visit Pain and Spine Center at [place] [address] Regulo Wang PA [facility] [place] [address] 01/24/2024 2:45 PM EST Appointment Mammography at [address] 01/24/2024 3:45 PM EST Office [place] [address] Caitlyn Hirsch MD [facility] [place] [address] 03/20/2024 9:00 AM EST Office Visit Hematology [place] [address] Ericka Forrest, [facility] HEMATOLOGY [place] [address] 07/29/2024 2:00 PM EDT Office Visit Radiation Oncology at [address] [phone] Kasie Marte MD [facility] [place] [address] documented as of this encounter Procedures Procedure Name Priority Date/Time Associated Diagnosis Comments MAMMO DIAGNOSTIC CAD BILATERAL Routine 02/16/2011 1:46 PM EST Abnormal mammogram, unspecified documented in this encounter Results * Mammo digital bilateral diagnostic with CAD [...] direct digital capture. The exam was evaluated byCollegePostings Version 8.3.17. FINDINGS: This is a benign [...] Center. Dorothy Hammond MD IMG MAMMO ORDERABLES documented in this encounter Visit Diagnoses Diagnosis Abnormal mammogram, unspecified documented in this encounter Care Teams Diet Technician Registered Relationship Specialty Start Date End Date Haylee Baptiste MD [address] [place] [address] PCP - General 01/21/10 documented as of this encounter
--- OUTSIDE RECORDS SUMMARY | 2023-12-15 12:41 | XMS_ITS | Encounter Summary ---
Author Organization [facility] Address [facility] [place] [address] Care Team Providers Care Manager Configuration Name Role Phone Haylee Baptiste MD Primary Care Provider [phone] Encounter Details Date Type Department Care Team (Latest Contact Info) Description 09/02/2016 12:15 AM EDT - 09/02/2016 11:59 PM EDT Hospital Encounter Radiology Library at [facility] [place] [address] Chapo Marin MD [facility] ORTHOPAEDIC [place] [address] Pain Discharge Disposition: Home Social History Tobacco [...] End Date fluticasone propionate (Flonase) 50 mcg/actuation [place], Suspension 1 spray by Each Nare route [...] Visit (TeleHealth) Hematology [place] [address] Kati Burnette MD [facility] DR HEMATOLOGY [place] [address] 01/24/2024 9:30 AM EST Appointment XRay at [address] [place] [address] Jimmy Swann MD [facility] [place] [address] 01/24/2024 11:00 AM EST Office Visit Pain [place] [address] Regulo Wang PA [facility] [place] [address] 01/24/2024 2:45 PM EST Appointment Mammography at [place] [address] 01/24/2024 3:45 PM EST Office Visit General Surgery at [address] Caitlyn Hirsch MD [facility] [place] [address] 03/20/2024 9:00 AM EST Office Visit Hematology and Oncology at [place] [address] Ericka Forrest [facility] DR HEMATOLOGY [place] [address] 07/29/2024 2:00 PM EDT Office Visit Radiation Oncology at [address] [phone] Kasie Maret MD [facility] DR RADI[place] [address] documented as of this encounter Procedures Procedure Name Priority Date/Time Associated Diagnosis Comments FILM LIBRARY STORAGE ONLY DX LOWER EXTREMITY Routine 09/02/2016 12:15 AM EDT Pain documented in this encounter Results * Film Library- Storage Only DX Lower Extremity (09/02/2016 12:15 AM EDT) Narrative [facility] - 09/03/2016 1:28 AM EDT This exam is for storage only and is auto-finalizing. Chapo Marin MD IMG FILM LIBRARY ORD ERABLES [place], [place] documented in this encounter Visit Diagnoses Diagnosis Pain Generalized pain documented in this encounter Care Teams Manager Configuration Relationship Specialty Start Date End Date Haylee Baptiste MD [address] [place] [address] PCP - General 01/21/10 documented as of this encounter
--- OUTSIDE RECORDS SUMMARY | 2023-12-15 12:41 | XMS_ITS | Encounter Summary ---
Author Organization [facility] [place] [address] Care Team Providers Care Supervisor Ornamental Ironworking Name Role Phone Haylee Baptiste MD Primary Care Provider [phone] Encounter Details Date Type Department Care Team (Late st Contact Info) Description 09/15/2016 12:00 PM EDT Office Visit [place] [address] Buddy Clark PA [facility] [place] [address] Achilles tendon tear, left, sequela Social History Tobacco Use Types Packs/Day [...] Sign Reading Time Taken Comments Blood Pressure 119/65 09/15/2016 11:49 AM EDT Pulse 98 09/15/2016 11:49 AM EDT Temperature - - Respiratory Rate - - Oxygen Saturation - - Inhaled Oxygen Concentration - - Weight 82.1 kg (181 lb) 09/15/2016 11:49 AM EDT Height 157.5 cm (5' 2) 09/15/2016 11:49 AM EDT Body Mass Index 33.11 09/15/2016 11:49 AM EDT documented in this encounter Progress Notes * Buddy Clark PA - 09/15/2016 12:00 PM EDT Chief complaint: Planned follow up, splint removal, change into cast in equinus for left Achilles Tendon rupture History of present illness: Nallely Velazquez is a 61 y.o. year-old female with type 2 diabeteswho presents today for change from a splint to a cast. Patient denies any interval change in her health. She is when she is nonweightbearing on her left lower extremity. She finds that she spoke withDr. Marin her the phone, and the reviewed the risks and benefits of surgery. Dr. Marin and herself opted for conservative management with the risk of being weakness. The patient presents for a cast change. She denies any fevers, chills, night sweats, drainage from her splint. She also is seen for repeat x-rays of her wrist which do show a scaphoid fracture, which will be placed in a cast today. Past medical history: Patient Active Problem List Diagnosis Date Noted ??? Achilles tendon tear, left 09/06/2016 ??? Type 2 diabetes mellitus with hyperglycemia, with long-term current use of insulin 09/06/2016 ??? Hypertension 09/06/2016 ??? section gang current use of antithrombotics/antiplatelets 09/06/2016 ??? Prinzmetal angina 09/06/2016 History of blood clots or bleeding disorders: Denies Medications: ??? HYDROcodone-acetaminophen (NORCO) 5-325 mg Tablet [...] baseline No fevers, night sweats or chills Questionnaire Responses: myD-H Hip & Knee 09/15/2016 PROMIS-10 General Health Good PROMIS-10 Quality of Life Good PROMIS-10 Physical Health Good PROMIS-10 Mental Health Excellent PROMIS-10 Social Activity and Relationship Satisfaction Excellent PROMIS-10 Social Roles at Home and Work Good PROMIS-10 Everyday Physical Activities A little PROMIS-10 Anxious or Depressed last 7 days Never PROMIS-10 Fatigue last 7 days Moderate PROMIS-10 Pain last 7 days 3 PROMIS PHYSICAL HEALTH SCORE (range 16-68) 39.8 PROMIS MENTAL HEALTH SCORE (range 21-68) 59 Physical Exam: No Apparent distress Left LE Exam: There is a 2 mm x 2 mm blister about the posterior inferior aspect of the heel which does not probedeeply there is no erythema around the area. DP/PT pulses are 1+. Achilles defect remains palpable Imaging: Personal review of the patient's imaging reveals: None today Assessment: 61 y.o. year-old female with left Achilles tendon rupture Plan: We discussed her small blister, we will place a Mepilex over this, and place extra padding over this area. We discussed her to call promptly if she notes any discharge or drainage from her cast. We discussed she should remain nonweightbearing on her left lower extremity over the next [address] her in a cast in equinus, for the next 2 weeks. She will follow-up in 2 weeks and we will transition her into a Achilles walker boot and begin the protocol. She was seen by separate provider in regards to her wrist, however she will go into a cast for a scaphoid fracture and remain nonweightbearing on her upper extremity. We will follow this with an x-ray. Patient is receptive to the above, patient agrees the plan. Follow up: 2 weeks for skin check, cast off for transition into boot This plan was discussed with the patient and they are in agreement. All of the patient's questions were answered. The above dictation was made with voice recogonition software documented in this encounter Plan of Treatment Upcoming Encounters Date Type Department Care Team (Late st Contact Info) Description 01/09/2024 2:20 PM EST TH Visit (TeleHealth) Hematology [place] [address] Kati Burnette MD [facility] DR H[place]AT[place] [address] 01/24/2024 9:30 AM EST Appointment XRay at [address] [place] [phone] Jimmy Swann MD [facility] [place] [place] [address] 01/24/2024 11:00 AM EST Office Visit Pain [place] [phone] Regulo Wang PA [facility] [address] 01/24/2024 2:45 PM EST Appointment [place] [phone] 01/24/2024 3:45 PM EST Office Visit [place] [phone] Caitlyn Hirsch MD [facility] [place] [address] 03/20/2024 9:00 AM EST Office Visit Hematology [place] [address] Ericka Forrest [facility] DR [place]AT[place] [address] 07/29/2024 2:00 PM EDT Office Visit Radiation Oncology at [address] [phone] Kasie Marte MD [facility] [place] [address] documented as of this encounter Visit Diagnoses Diagnosis Achilles tendon tear, left, sequela documented in this encounter Care Teams Supervisor Ornamental Ironworking Relationship Specialty Start Date End Date Haylee Baptiste MD [address] [place] [address] PCP - General 01/21/10 documented as of this encounter
--- OUTSIDE RECORDS SUMMARY | 2023-12-15 12:41 | XMS_ITS | Encounter Summary ---
Author Organization [facility] [place] [address] Care Team Providers Care Home Hospice Rn Name Role Phone Haylee Baptiste MD Primary Care Provider [phone] Reason for Visit * Auth/Cert Specialty Diagnoses / Procedures Referred By Mike jalloh Referred To Contact Diagnoses ASCVD Procedures CARDIAC CATHETERIZATION Referral ID Status Reason Start Date Expiration Date Visits Re quested Visits Authorized [id number] 1 1 Encounter Details Date Type Department Care Team (Late st Contact Info) Description 01/14/2015 7:30 AM EST - 01/14/2015 8:30 AM EST [place] [address] Jonnathan Nielsen MD [facility] [place] [address] CARDIAC CATHETERIZATION Social History Tobacco Use Types [...] Sign Reading Time Taken Comments Blood Pressure 136/72 01/14/2015 6:49 AM EST Pulse 95 01/14/2015 6:49 AM EST Temperature 36.4 ??C (97.5 ??F) 01/14/2015 6:49 AM ES T Respiratory Rate 18 01/14/2015 6:49 AM EST Oxygen Saturation 99% 01/14/2015 6:49 AM EST Inhaled Oxygen Concentration - - [...] by your doctor, do not take any swtj-gdt-fdqaewk medicinesor herbal preparations without first discussing this with your doctor or pharmacist. There is the possibility of side effects and interactions when these are combined. Follow Up Care Who to call with questions or problems If there are any questions or problems that you think might be related to your cardiac cath or angioplasty, contact the health promotion manager watermelon harvesting supervisor by calling [facility] at . documented in this encounter Medications at Time of Discharge Medication Sig Dispensed Refills Start Date End Date fluticasone propionate (Flonase) 50 mcg/actuation [place], Suspension 1 spray by Each Nare route [...] the Treatment of Subjects with de marisel [place] Coronary Artery Lesions PI: Jonnathan Nielsen MD Pager #:[phone] Consent: Following the determination this potential participant [...] caused by up to three de marisel [place] coronary artery lesions in two separate epicardial [...] TH Visit (TeleHealth) Hematology [place] [phone] Kati Burnette MD [facility] [place] [address] 01/24/2024 9:30 AM EST Appointment XRay at [address] [place] [phone] Jimmy Swann MD [facility] [place] [place] [address] 01/24/2024 11:00 AM EST Office Visit Pain [place] [phone] Regulo Wang PA [facility] [place] [address] 01/24/2024 2:45 PM EST Appointment Mammography at [place] [phone] 01/24/2024 3:45 PM EST Office Visit General Surgery at [place] [phone] Caitlyn Hirsch MD [facility] [place] [address] 03/20/2024 9:00 AM EST Office Visit Hematology [place] [address] Ericka Forrest [facility] DR HEMATOLOGY [place] [address] 07/29/2024 2:00 PM EDT Office Visit Radiation Oncology at [address] [phone] Kasie Marte MD [facility] [place] [address] documented as of this encounter Procedures Procedure Name Priority Date/Time Associated Diagnosis Comments POCT GLUCOSE Routine 01/14/2015 12:24 PM EST EKG 12-LEAD Routine 01/14/2015 7:03 AM EST ASCVD (arteriosclerotic cardiovascular disease) POCT GLUCOSE Routine 01/14/2015 6:55 AM EST documented in this encounter Results * (ABNORMAL) POCT Glucose (01/14/2015 12:24 PM EST) [facility] Glucose, POC 276(H) 65 - 199 mg/dL [facility] Comment: Supplemental ranges: <140 mg/dL before meals <180 mg/dL all other times of the day Blood specimen (specimen) 01/14/2015 12:24 PM EST 01/14/2015 12:24 PM EST Jonnathan Kelley MD POINT OF CARE TEST O RDERABLES [facility] * EKG 12 Lead (01/14/2015 7:03 AM EST) Pathologist [facility] Ventricular rate 91 BPM MUSE SYSTEM Atrial Rate 91 BPM MUSE SYSTEM P-R Interval 164 ms MUSE SYSTEM QRS Duration 80 ms MUSE SYSTEM Q-T Interval 336 ms MUSE SYSTEM QTC Calculated (Bezet) 413 ms MUSE SYSTEM Calculated P Newman 52 degrees MUSE SYSTEM Calculated R Newman 31 degrees MUSE SYSTEM Calculated T Newman 37 degrees MUSE SYSTEM INTERPRETATION Normal sinus rhythm Low voltage QRS Borderline ECG No previous ECGs available Confirmed by MD Elizabeth, Stalin ([id number]) on 01/14/2015 5:25:42 PM MUSE SYSTEM 01/14/2015 7:03 AM EST 01/14/2015 5:25 PM EST Jonnathan Kelley MD ECG ORDERABLES Performing Organization Address City/[facility] Co de Phone Number MUSE SYSTEM * (ABNORMAL) POCT Glucose (01/14/2015 6:55 AM EST) Glucose, POC 280(H) 65 - 199 mg/dL [facility] Comment: Supplemental ranges: <140 mg/dL before meals <180 mg/dL all other times of the day Blood specimen (specimen) 01/14/2015 6:55 AM EST 01/14/2015 6:55 AM EST Jonnathan Kelley MD POINT OF CARE TEST O RDERABLES Performing Organization Address [facility] de Phone Number [facility] documented in this encounter Visit Diagnoses Diagnosis ASCVD (arteriosclerotic cardiovascular disease) Unspecified cardiovascular disease ASCVD (arteriosclerotic cardiovascular disease) Unspecified cardiovascular disease documented in this encounter Administered Medications Inactive Administered Medications - up to 3 most recent administrations Medication Order MAR Action Action Date Dose Rate Site aspirin chewable tablet ONCE PRN, Starting on Mon01/14/15 at 0835, Until Mon01/14/15 at 1212, Cath (Intra-Procedure), Routine Given 01/14/2015 8:35 AM EST 243 mg diaZEPam (VALIUM) tablet 5 mg 5 mg, Oral, ONCE, 1 dose, On Mon01/14/15 at 0715, Cath (Day of Procedure), Routine Given 01/14/2015 8:08 AM EST 5 mg heparin (porcine) injection ONCE PRN, Starting on Mon01/14/15 at 0905, Until Mon01/14/15 at 1212, Cath (Intra-Procedure), Routine Given 01/14/2015 9:32 AM EST 2,500 Units Given 01/14/2015 9:05 AM EST 4,000 Units nitroGLYcerin 100 mcg/mL intracoronary dilution ONCE PRN, Starting on Mon01/14/15 at 0901, Until Mon01/14/15 at 1212, Cath (Intra-Procedure), Routine Given 01/14/2015 9:30 AM EST 150 mcg Given 01/14/2015 9:01 AM EST 200 mcg sodium chloride 0.9% infusion 50 mL/hr, Intravenous, CONTINUOUS, Starting on Mon01/14/15 at 0715, Until Mon01/14/15 at 0948, Cath (Day of Procedure) New Bag 01/14/2015 7:15 AM EST 50 mL/hr 50 mL/hr sodium chloride 0.9% infusion 100 mL/hr, Intravenous, CONTINUOUS, Starting on Mon01/14/15 at 1015, Until Mon01/14/15 at 1414 New Bag 01/14/2015 10:15 AM EST 100 mL/hr 100 mL/hr verapamil (ISOPTIN) injection ONCE PRN, Starting on Mon01/14/15 at 0901, Until Mon01/14/15 at 0948, Administer over 2 Minutes, Cath (Intra-Procedure) Given 01/14/2015 9:01 AM EST 2.5 mg documented in this encounter Active [...] Procedure) 0715 (New Bag - Prov ider: Mcihelle Pelletier RN) sodium chloride 0.9% infusion () [...] 0948, Administer over 2 Minutes, Cath (Intra-Procedure) 09 (Given - Provid er: Jonnathan Kelley MD) documented in this encounter Care Teams Home Hospice Rn Relationship Specialty Start Date End Date Haylee Baptiste MD [address] [place] [address] PCP - General 01/21/10 documented as of this encounter
--- OUTSIDE RECORDS SUMMARY | 2023-12-15 12:41 | XMS_ITS | Encounter Summary ---
Author Organization Formerly [facility] [place] [address] Care Team Providers Care Napkin Machine Operator Name Role Phone Haylee Baptiste MD Primary Care Provider [phone] Reason for Visit * Reason Comments Follow Up Fracture L scaphoid fx 7 Encounter Details Date Type Department Care Team (Late st Contact Info) Description 09/15/2016 10:00 AM EDT Office Visit [place] [phone] Britt Munguia PA [facility] [place] [address] Wrist pain, acute, left Social History Tobacco Use Types Packs/Day Years [...] Sign Reading Time Taken Comments Blood Pressure 126/69 09/15/2016 10:23 AM EDT Pulse 98 09/15/2016 10:23 AM EDT Temperature - - Respiratory Rate - - Oxygen Saturation - - Inhaled Oxygen Concentration - - Weight 82.6 kg (182 lb) 09/15/2016 10:23 AM EDT Height 157.5 cm (5' 2) 09/15/2016 10:23 AM EDT Body Mass Index 33.29 09/15/2016 10:23 AM EDT documented in this encounter Progress Notes * Britt Munguia PA - 09/15/2016 10:00 AM EDT Chief complaint: left wrist pain Problem List Items Addressed This Visit None Visit Diagnoses Wrist pain, acute, left Relevant Orders XR Hand Min 3 views Left (Generic) History of present illness: Nallely Velazquez is a 61 y.o. year-old female presenting with a three-week history of wrist pain after a fall onto outstretched hand. She was walking her very large dog when the dog bolted pulling the leash out of her hand. She was initially seen due to a suspected A chilles rupture however she also reported pain and was subsequently put into a thumb spica due to pain over the scaphoid. She reports that she has continued to have mild pain. She presented in cast at clinic today. She received x-rays today in cast. We will remove the cast and are obtaining additional x-rays. Denies any recent fever, chills, redness, erythema, drainage, or drenching night sweats. Past medical history: Patient Active Problem List Diagnosis Date Noted ??? Achilles tendon tear, left 09/06/2016 ??? Type 2 diabetes mellitus with hyperglycemia, with long-term current use of insulin 09/06/2016 ??? Hypertension 09/06/2016 ??? 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 Prinzmetal angina 09/06/2016 Medications: ??? sitaGLIPtin (JANUVIA) 100 mg Tablet ??? [...] (LIPITOR) 80 mg tablet ??? ASPIRIN ORAL ??? HYDROcodone-acetaminophen (NORCO) 5-325 mg Tablet ??? ondansetron (ZOFRAN-ODT) 4 mg Tablet, Rapid Dissolve Allergies: Allergies Allergen Reactions ??? Iodine And [...] fevers, night sweats or chills Vital signs: Temp: -- Physical Exam: Inspection: 2 cm x 3 cm abrasion noted on the posterior aspect of her distal forearm. No drainage, erythema noted. Ecchymosis noted yellow-green over the lateral posterior aspect of her hand overlying the fourth and fifth ray as well as the distal ulnar head. Palpation: Tender to gentle palpation about the wrist Range of motion: Second through fourth finger full range of motion Phalanx range of motion limited due to pain. Intact motor function of the radial, median, and ulnar nerves. Intact sensation along radial, median, and ulnar nerve distributions. Good hand perfusion. Short arm thumb spica cast was applied. Abrasion was cleansed, covered with gauze and Xeroform. Imaging: Personal review of the patient's imaging reveals: In cast: x-ray shows a suspected proximal pole transverse scaphoid fracture. HAND xr out of cast: Incorrect x-rays were obtained, practitioner requested three-view wrist x-ray scaphoid however radiology obtained 3 view hand with no scaphoid. We however, able to visualize the scaphoid. On PA hands there is a oblique fracture over the proximal pole somewhat difficult to visualize. This correlates with the suspected fracture on the in cast images today. Assessment: 61 y.o. year-old female 3 weeks post fall onto outstretched hand with subsequent scaphoid fracture. Plan: We reviewed the x-ray images together. The in cast x-ray indicated an oblique fracture of the proximal pole of the scaphoid however it wasunclear if this was an actual fracture or the overlying cast material. The subsequent out of cast x-ray shows a difficult to visualize fracture of the proximal pole of the scaphoid. This combined with the clinical presentation indicates a scaphoid fracture. The treatment for this will be a thumb spica cast. Please remain nonweightbearing. Scaphoid fractures in particular the proximal pole can take many weeks to heal. We would like to see her back in 4 weeks for out of cast x-ray. We discussed that the diagnosis of diabetes as well as the elevated hemoglobin A1c of 10.5 can inhibit the healing process.. Please work on bringing the hemoglobin A1c down to a more acceptable range. See PCP for assistance with this. Please watch for any signs of infection to include fever, chills, drenching night sweats, drainage. If any of these should occur please call us. Follow up: In 4 weeks with out of cast x-ray. This plan was discussed with the patient and they are in agreement. All of the patient's questions were answered. The above dictation was made with voice recogonition software Britt Munguia PA-C documented in this encounter Plan of Treatment Upcoming Encounters Date Type Department Care Team (Late st Contact Info) Description 01/09/2024 2:20 PM EST TH Visit (TeleHealth) Hematology [place] [address] Kati Burnette MD [facility] HEMATOLOGY [place] [address] 01/24/2024 9:30 AM EST Appointment XRay at [address] [place] [phone] Jimmy Swann MD [facility] [place] [address] 01/24/2024 11:00 AM EST Office Visit Pain and [place] [address] Regulo Wang PA [facility] [place] [address] 01/24/2024 2:45 PM EST Appointment Mammography at [address] 01/24/2024 3:45 PM EST Office Visit General Surgery at [address] Caitlyn Hirsch MD [facility] [place] [address] 03/20/2024 9:00 AM EST Office Visit Hematology and Oncology at [place] [phone] Ericka Forrest [facility] DR HEMATOLOGY [place] [address] 07/29/2024 2:00 PM EDT Office Visit Radiation Oncology at [address] [phone] Ksaie Marte MD [facility] [place] [address] documented as of this encounter Results * XR Hand Min 3 views Left (Generic) (09/15/2016 11:33 AM EDT) Anatomical Region Laterality Modality Hand Left Digital Radiogra phy Narrative 09/15/2016 12:29 PM EDT EXAMINATION: XR HAND MIN 3 VIEWS LEFT (GENERIC) CLINICAL HISTORY: ?Scaphoid fracture TECHNIQUE: ? COMPARISON: September 02 radiographs. FINDINGS: The cast is removed. Bones: No fracture is present. Normal appearance of scaphoid. Third metacarpal gzym-pfum-jrkbfbmkokjah marginal radiolucency or cyst. Normal joint spaces. Third proximal phalanx-small well-corticated bone density at the dorsal base of the third middle phalanx. Joints: No dislocation is seen. IP and basal joints-tiny osteophytes but no erosions. Soft tissue: Normal. Impression 1. ??No scaphoid fracture. 2. ??Tiny bone fragment at dorsal base of the third middle phalanx represents central band extensor avulsion of indeterminate age. Please correlate with point tenderness and stability. 3. ??Mild osteoarthropathy at scattered sites. Procedure Note Gerda Yusuf MD - 09/15/2016 EXAMINATION: XR HAND MIN 3 VIEWS LEFT (GENERIC) CLINICAL HISTORY: ?Scaphoid fracture TECHNIQUE: COMPARISON: September 02 radiographs. FINDINGS: The cast is removed. Bones: No fracture is present. Normal appearance of scaphoid. Third metacarpal [id number]-qdvpgjgcmvtcs marginal radiolucency or cyst.Normal joint spaces. Third proximal phalanx-small well-corticated bone density at the dorsalbase of the third middle phalanx. Joints: No dislocation is seen. IP and basal joints-tiny osteophytes but no erosions. Soft tissue: Normal. Impression 1. No scaphoid fracture. 2. Tiny bone fragment at dorsal base of the third middle phalanxrepresents central band extensor avulsion of indeterminate age. Please correlate withpoint tenderness and stability. 3. Mild osteoarthropathy at scattered sites. Clinton Moran MD IMG DX ORDERABLES documented in this encounter Visit Diagnoses Diagnosis Wrist pain, acute, left Wrist pain, acute, left documented in this encounter Care Teams Napkin Machine Operator Relationship Specialty Start Date End Date Haylee Baptiste MD [address] [place] [address] PCP - General 01/21/10 documented as of this encounter
--- OUTSIDE RECORDS SUMMARY | 2023-12-15 12:41 | XMS_ITS | Encounter Summary ---
Author Organization [facility] [place] [address] Care Team Providers Care Evidence Specialist Name Role Phone Haylee Baptiste MD Primary Care Provider [phone] Reason for Visit * Reason Comments Left Ankle Pain pre-op visit for LEF T ACHILLES TENDON REPAIR Encounter Details Date Type Department Care Team (Late st Contact Info) Description 09/06/2016 3:45 PM EDT Office Visit [place] [address] Carlos Eaton MD [facility] DR [place] [address] Preop examination; Achilles tendon tear, left, initial encounter; Type 2 diabetes mellitus with hyperglycemia, with long-term current use of insulin; oil heaterman current use of antithrombotics/antip latelets Social History Tobacco Use Types Packs/Day Years [...] Sign Reading Time Taken Comments Blood Pressure 147/68 09/06/2016 2:57 PM EDT Pulse 96 09/06/2016 2:57 PM EDT Temperature - - Respiratory Rate - - Oxygen Saturation 99% 09/06/2016 2:5 7 PM EDT Inhaled Oxygen Concentration - - Weight 82.6 kg (182 lb) 09/06/2016 2:57 PM EDT verbal from other appt Height 157.5 cm (5' 2) 09/06/2016 2:57 PM EDT verbal from other appt Body Mass Index 33.29 09/06/2016 2:57 PM EDT documented in this encounter H&P Notes * Carlos Eaton MD - 09/06/2016 3:45 PM EDT Images from the original note were not included. CC: Nallely Velazquez is a 61 y.o. female with the following problems and medications that is being seen in the clinic for consultation at the request of her surgeon Dr. Chapo Marin for preoperative risk stratification and management recommendations in anticipation of repair left achilles tendontear. HPI - She was in her usual state of health when this past Monday she sufferred a trip over her large dog that suddenly darted in front of her toward the cat. She fell on her LUE and also noted a pop and pain at her left ankle. She was seen in [facility] for this and clinically and radiographically an Achilles Tendon tear was diagnosed. A left scaphoid fracture was also possible and she has been in a for earm splint and LLE splint since then. She saw Dr. Marin earlier today and would like to proceed withsurgical repair of her Achilles. She describes pain in her left posterior ankle. It is better with the [place]. She has taken very few since the injury and it is new since that. 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 She has had improved DM control but still remains hyperglycemic. She had chest pain which was evaluated with stress test and had cardiac cath which showed non obstructive CAD.She was told by a provider that she could have Prinzmetal' Angina. Has not needed her prn NTG for over a year now on her current regime of meds. FSBS at home are ranging 240-260. She does binge on junk food. She had blood work per her PCP a few months ago and her cholesterol was elevated and she had her Lipitor increased. An office note per Shift Lab Technician Dr. Fregoso is available in scan doc from January 2015 and I have reviewed that. There was a possible TIA diagnosed per symptoms of N/V, numbness of left eyelid and left foot and she was started on Plavix and that was a year ago per that note from 2015. She has had subsequent recurrent N/V and abdominal migraine has been considered the most likely cause. She has however not needed the Topamax and is no longer taking that. She has a history of sarcoid and has been on steroids in past. She does not have exposure to fluoroquinolone antibiotic. She has had a spur on the back of her heel at the Achilles insertion for a while. Patient Active Problem List Diagnosis Code ??? Achilles tendon tear, left S86.019A ??? Type 2 diabetes mellitus with hyperglycemia, with long-term current use of insulin E11.65, Z79.4 ??? Hypertension I10 ??? assisted current use of antithrombotics/antiplatelets Z79.02 ??? Prinzmetal angina I20.1 Current Outpatient Prescriptions Medication Sig Dispense Refill ??? HYDROcodone-acetaminophen (NORCO) 5-325 mg Tablet TAKE ONE TABLET BY MOUTH EVERY 6 HOURS NEEDED 0 ??? ondansetron (ZOFRAN-ODT) 4 mg Tablet, [...] Take 75 mg by mouth daily. ??? topiramate (TOPAMAX) 25 mg Tablet Take 25 mg by mouth daily. HASN'T TAKEN IN MONTHS ??? insulin detemir (LEVEMIR) Insulin Pen Inject [...] ??? ASPIRIN ORAL No current facility-administered medications for this visit. Social History Occupational History ??? Not on file. Social History Main Topics ??? Smoking status: Never Smoker ??? Smokeless tobacco: Never Used ??? Alcohol use No ??? Drug use: No ??? Sexual activity: Not on file Family History Problem Relation Age of Onset ??? Cancer Neg Hx No premature CAD. Review of Systems: Review of Systems Constitutional: Negative for chills, diaphoresis and fever. HENT: Negative for mouth sores and nosebleeds. Eyes: Negative for photophobia and visual disturbance. Respiratory: Negative for cough, shortness of breath and wheezing. Cardiovascular: Negative for chest pain and palpitations. Gastrointestinal: Negative for abdominal pain, anal bleeding and blood in stool. Has had emesis in past and takes prn Zofran for that. Was on Topamax in past for possible abdominalmigraine which manifested with profuse vomiting. Did not have gastroparesis on evaluation. Endocrine: Negative for polydipsia and polyphagia. Genitourinary: Negative for dysuria, flank pain, frequency and urgency. Had prior blood in urine with UTI and yesterday she had one instance of hematuria - pink urine and blood on wiping. This has not recurred since. She has straw colored urine now. Musculoskeletal: Positive for gait problem. Negative for joint swelling. Skin: Negative for pallor and rash. Left forearm skin tear from the fall. Has a probable scaphoid fracture and is in a hand splint. Allergic/Immunologic: Positive for environmental allergies. Negative for immunocompromised state. Neurological: Negative for speech difficulty, light-headedness and numbness. Hematological: Negative for adenopathy. Bruises/bleeds easily. Psychiatric/Behavioral: Negative for confusion, decreased concentration and dysphoric mood. Allergies: Allergies Allergen Reactions ??? Iodine And Iodide Containing Products CIS - Anaphylaxis ??? Codeine Phosphate CIS - Nausea/Vomiting ??? Meperidine Hcl CIS - Nausea/Vomiting ??? Morphine Sulfate CIS - Nausea/Vomiting ??? Oxaprozin CIS - Nausea/Vomiting ??? Prednisone CIS - Rash with dose greater than 20mg. ??? Sulindac CIS - Nausea/Vomiting Physical Exam: Last Set of Vitals and Range over past 24 hours: Last value Range last 24 hrs Temperature Temp: -- Heart Rate Heart Rate: 96 Heart Rate: [96] Blood Pressure BP: 147/68 BP: (147)/(68) Respiratory Rate Resp: -- SpO2 SpO2: 99 % SpO2: [99 %] Body mass index is 33.29 kg/(m^2). Height: 157.5 cm (5' 2) (verbal from other appt) Physical Exam Constitutional: She is oriented to person, place, and time. She appears well- developed. No distress. HENT: Head: Normocephalic and atraumatic. Mouth/Throat: Oropharynx is clear and moist. No oropharyngeal exudate. Eyes: Conjunctivae and EOM are normal. Right eye exhibits no discharge. Left eye exhibits no discharge. No scleral icterus. Neck: Neck supple. No tracheal deviation present. Cardiovascular: Normal rate, regular rhythm and normal heart sounds. Exam reveals no gallop and no friction rub. No murmur heard. Pulmonary/Chest: Effort normal and breath sounds normal. No stridor. No respiratory distress. She has no wheezes. She has no rales. Abdominal: Soft. Bowel sounds are normal. There is no tenderness. There is no rebound and no guarding. Musculoskeletal: She exhibits no edema. Lymphadenopathy: She has no cervical adenopathy. Neurological: She is alert and oriented to person, place, and time. No cranial nerve deficit. Coordination normal. Skin: Skin is warm and dry. She is not diaphoretic. No pallor. Psychiatric: She has a normal mood and affect. Her behavior is normal. Judgment and thought contentnormal. Lab Results Component Value Date WBC 14.9 (H) 09/06/2016 RBC 4.95 09/06/2016 HGB 14.1 09/06/2016 HCT 42.2 09/06/2016 MCV 85.3 09/06/2016 MCH 28.5 09/06/2016 MCHC 33.4 09/06/2016 PLATELET 336 09/06/2016 RDWCV 13.0 09/06/2016 Lab Results Component Value Date NA 136 09/06/2016 K 4.2 09/06/2016 CL 99 09/06/2016 CO2 19 (L) 09/06/2016 BUN 11 09/06/2016 CREATININE 0.93 09/06/2016 GLUCOSE 427 (H) 09/06/2016 CALCIUM 9.2 09/06/2016 Lab Results Component Value Date HA1C 10.5 (H) 09/06/2016 Estimated Creatinine Clearance: 62.5 mL/min (based on Cr of 0.93). Cardiac Cath 2014 - non obstructive CAD. 40% stenosis in mid LAD but IFR was 0.99. 20% ostial LAD and FR was 0.99 (IFR of 0.85 or less is considered hemodynamically significant and 0.86-0.92 indeterminate) Carotid Duplex 2013 at [facility] - no significant plaque or stenosis noted. A/P 1. Preop examination 2. Achilles tendon tear, left, initial encounter 3. Type 2 diabetes mellitus with hyperglycemia, with long-term current use of insulin 4. assisted current use of antithrombotics/antiplatelets She elects to proceed with the achilles tendon repair surgically and understands the high risk of complications associated with the DM2 being uncontrolled. Regarding perioperative medications - I asked her to stop the Plavix and aspirin although I did relate that the effect of these will remain at the time of her surgery as usually the Plavix is stopped 5-7 days and aspirin 7-10 days before surgery to negate their effect on her platelets. I did note however that considering the surgery planned it is reasonable to proceed as planned after such a brief interruption if it is okay with her and Dr. Marin. I did have above labs done to evaluate her and the elevated WBC is likely marker of pain but she does have elevated anion gap and low bicarbonate with hyperglycemia which suggests an element ofketosis is also happening. She was instructed to take her Levemir as usual the night before surgeryand her usual dose but NOT take the Glipizide or the Januvia on the morning of surgery. She was instructed to continue her metoprolol, Imdur ans statin as well as her omeprazole. She will NOT take the losartan the morning of surgery. Major Risk Factor per the Revised Cardiac Risk Index (Bold if present) - CAD, CHF, CVA or TIA, DM2 on insulin, or a Creatinine >2. She did not have an WA but per RCRI criteria the use of nitrate therapy fulfills the CAD criteria. She has no recent chest pain and she had above cardiac cath findings which did not result in invasive intervention. She has the TIA history but that was then altered to abdominal migraine and has no new focal numbness or weakness. Risk diagnosis for MACE (major adverse cardiovascular event = Myocardial infarction, pulmonary edema, ventricular fibrillation, primary cardiac arrest, or complete heart block.) : Elevated >1% . The patient describes a functional status of equal to 4METs and more (has a 2 k[address] house but not able to go upstairs since this fall) and based on the ACC/AHA 2014 guideline no further cardiovascular testing is indicated. ARISCAT/CANET Score - estimates the risk of postoperative pulmonary complications as being low ~3.5%. STOP BANG Score - low risk for PAOLO. Per the ACS NSQIP calculator I estimated the following. She has been taking some ibuprofen in addition to the Relafen and I have asked her to avoid that. She finds the [place] also helps her pain and Iasked her to take this as needed and to watch out for nausea and constipation. She may use her Zofran (ondansetron) for the nausea and use laxatives (Senna with colace) for the latter. RECCO: Confer with inpatient DM team Continue statin, prn Zofran, PPI. Hold metoprolol if SBP<110 or HR<50 Hold Imdur if SBP<100 Hold losartan if SBP<130 documented in this encounter Plan of Treatment Upcoming Encounters Date Type Department Care Team (Late st Contact Info) Description 01/09/2024 2:20 PM EST TH Visit (TeleHealth) Hematology [place] [address] Kati Burnette MD [facility] HEMATOLOGY [place] [address] 01/24/2024 9:30 AM EST Appointment XRay at [address] [place] [address] Jimmy Swann MD [facility] [place] [address] 01/24/2024 11:00 AM EST Office Visit Pain and Spine Center at [place] [address] Regulo Wang PA [facility] [place] [address] 01/24/2024 2:45 PM EST Appointment Mammography at [place] [address] 01/24/2024 3:45 PM EST Office Visit General Surgery at [place] [address] Caitlyn Hirsch MD [facility] [place] [address] 03/20/2024 9:00 AM EST Office Visit Hematology and Oncology at [place] [address] Ericka Forrest, [facility] [place] [address] 07/29/2024 2:00 PM EDT Office Visit Radiation Oncology at [address] [phone] Kasie Marte MD [facility] [place] [address] documented as of this encounter Visit Diagnoses Diagnosis Preop examination Preoperative examination, unspecified Achilles tendon tear, left, initial encounter Type 2 diabetes mellitus with hyperglycemia, with long-term current use of insulin 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
--- OUTSIDE RECORDS SUMMARY | 2023-12-15 12:41 | XMS_ITS | Encounter Summary ---
Author Organization [facility] Address [facility] [place] [address] Care Team Providers Care Chemical Analyst Name Role Phone Haylee Baptiste MD Primary Care Provider [phone] Encounter Details Date Type Department Care Team (Late st Contact Info) Description 08/03/2010 Orders Only [address] [address] Dorothy Hammond MD [facility] [place] [address] Abnormal mammogram, unspecified (Primary Dx) Social History Tobacco Use Types Packs/Day Years [...] TH Visit (TeleHealth) Hematology [place] [phone] Kati Burnette MD [facility] H[place]AT[place] [address] 01/24/2024 9:30 AM EST Appointment XRay at [address] [place] [phone] Jimmy Swann MD [facility] [place] [address] 01/24/2024 11:00 AM EST Office Visit Pain and Spine Center at [place] [phone] Regulo Wang PA [facility] [place] [address] 01/24/2024 2:45 PM EST Appointment [place] [phone] 01/24/2024 3:45 PM EST Office [place] [phone] Caitlyn Hirsch MD [facility] [place] [address] 03/20/2024 9:00 AM EST Office Visit Hematology [place] [phone] Ericka Forrest, [facility] DR HEMATOLOGY [place] [address] 07/29/2024 2:00 PM EDT Office Visit Radiation Oncology at [address] [phone] Kasie Marte MD [facility] [place] [address] documented as of this encounter Results * Mammo digital bilateral [...] direct digital capture. The exam was evaluated byCAD Version 8.3.17. FINDINGS: This is a benign [...] this encounter Visit Diagnoses Diagnosis Abnormal mammogram, unspecified- Primary Abnormal mammogram, unspecified documented in this encounter Care Teams Chemical Analyst Relationship Specialty Start Date End Date Haylee Baptiste MD [address] [place] [address] PCP - General 01/21/10 documented as of this encounter
--- OUTSIDE RECORDS SUMMARY | 2023-12-15 12:41 | XMS_ITS | Encounter Summary ---
Author Organization [facility] Address [facility] [place] [address] Care Team Providers Care Instructor Looping Name Role Phone Haylee Baptiste MD Primary Care Provider [phone] Encounter Details Date Type Department Care Team (Late st Contact Info) Description 02/02/2010 12:45 PM EST - 02/02/2010 11:59 PM [facility] Hospital Encounter [facility] Haylee Baptiste MD [address] [place], [place] [address] Discharge Disposition: Home Social History Tobacco Use [...] mg capsule 20MG, PO, Once daily 02/23/2006 meclizine (ANTIVERT) 25 mg tablet 25MG, PO, Three times daily PRN 02/23/2006 08/29/2021 lisinopril (PRINIVIL;ZESTRIL) 5 mg tablet 5MG, PO, Once daily 02/23/2006 01/14/20 15 atorvastatin (LIPITOR) 80 mg tablet 80MG = 1 Tablet(s), PO, Once daily 02/23/2006 09/01/2021 ASPIRIN ORAL Take 81 mg by mouth. 02/23/2006 023 metFORMIN (GLUCOPHAGE) 500 mg tablet 500MG = 1 Tablet(s), PO, Twice daily 02/23/2006 01/13/2015 documented as of this encounter Plan of Treatment Upcoming Encounters Date Type Department Care Team (Late st Contact Info) Description 01/09/2024 2:20 PM EST TH Visit (TeleHealth) [place]ematology [place] [address] Kati Burnette MD [facility] DR HEM[place] [address] 01/24/2024 9:30 AM EST Appointment XRay [place] [address] [place] [phone] Jimmy Swann MD [facility] [place] [address] 01/24/2024 11:00 AM EST Office Visit [facility] [place] [phone] Regulo Wang PA [facility] [place] [address] 01/24/2024 2:45 PM EST [place]ointment [place] [address] 01/24/2024 3:45 PM EST Office [place] [phone] Caitlyn Hirsch MD [facility] [place] [address] 03/20/2024 9:00 AM EST Office Visit Hematology [place] [address] Ericka Forrest, [facility] HEMATOLOG[place] [address] 07/29/2024 2:00 PM EDT Office Visit Radiation Oncology at [address] [phone] Kasie Marte MD [facility] [place] [address] documented as of this encounter Visit Diagnoses Not on filedocumented in this encounter Care Teams Instructor Looping Relationship Specialty Start Date End Date Haylee Baptiste MD [address] [place] [address] PCP - General 01/21/10 documented as of this encounter
--- OUTSIDE RECORDS SUMMARY | 2023-12-15 12:41 | XMS_ITS | Encounter Summary ---
Author Organization [facility] [place] [address] Care Team Providers Care Air Motor Repairer Name Role Phone Haylee Baptiste MD Primary Care Provider [phone] Reason for Visit * Reason Onset Date Comments Letter for School/Work 09/07/2016 Encounter Details Date Type Department Care Team (Late st Contact Info) Description 09/07/2016 Telephone [place] [address] Chapo Marin MD [facility] [place] [address] Letter for School/Work Social History Tobacco Use Types Packs/Day Years [...] encounter Miscellaneous Notes * Telephone Encounter - Kati Palumbo - 09/07/2016 11:21 AM EDT Letter created, stamped and faxed * Telephone Encounter - Mary Dasilva - 09/07/2016 10:42 AM EDT ----- Message from Chapo Marin MD sent at 09/07/2016 9:32 AM EDT ----- Can we fax a letter to her work, , indicating that she can return to work as long as itis desk, nonweight bearing on affected lower limb. documented in this encounter Plan of Treatment Upcoming Encounters Date Type Department Care Team (Late st Contact Info) Description 01/09/2024 2:20 PM EST TH Visit (TeleHealth) Hematology and Oncology at [place] [phone] Kati Burnette MD [facility] [place] [address] 01/24/2024 9:30 AM EST Appointment XRay at [address] [place] [phone] Jimmy Swann MD [facility] [place] [place] [address] 01/24/2024 11:00 AM EST Office Visit Pain and Spine Center at [place] [phone] Regulo Wang PA [facility] [place] [address] 01/24/2024 2:45 PM EST Appointment Mammography at [place] [phone] 01/24/2024 3:45 PM EST Office Visit General Surgery at [place] [phone] Caityln Hirsch MD [facility] [place] [address] 03/20/2024 9:00 AM EST Office Visit Hematology [place] [address] Ericka Forrest, [facility] [place] [address] 07/29/2024 2:00 PM EDT Office Visit Radiation Oncology at [address] [phone] Kasie Marte MD [facility] [place] [address] documented as of this encounter Visit Diagnoses Not on filedocumented in this encounter Care Teams Air Motor Repairer Relationship Specialty Start Date End Date Haylee Baptiste MD [address] [place] [address] PCP - General 01/21/10 documented as of this encounter
--- OUTSIDE RECORDS SUMMARY | 2023-12-15 12:41 | XMS_ITS | Encounter Summary ---
Author Organization [facility] Address [facility] [place] [address] Care Team Providers Care Bell Tier Name Role Phone Haylee Baptiste MD Primary Care Provider [phone] Encounter Details Date Type Department Care Team (Latest Contact Info) Description 09/15/2016 9:30 AM EDT - 09/15/2016 10:55 AM EDT Hospital Encounter XRay at [address] [place] [address] Pain in left wrist Discharge Disposition: Home Social History Tobacco Use [...] End Date fluticasone propionate (Flonase) 50 mcg/actuation [place], Suspension 1 spray by Each Nare route [...] TH Visit (TeleHealth) Hematology [place] [address] Kati Burnette MD [facility] [place] [address] 01/24/2024 9:30 AM EST Appointment XRay at [address] [place] [phone] Jimmy Swann MD [facility] [place] [address] 01/24/2024 11:00 AM EST Office Visit Pain and Spine Center at [place] [address] Regulo Wang PA [facility] [place] [address] 01/24/2024 2:45 PM EST Appointment Mammography at [place] [address] 01/24/2024 3:45 PM EST Office Visit General Surgery at [place] [address] Caitlyn Hirsch MD [facility] [place] [address] 03/20/2024 9:00 AM EST Office Visit Hematology and Oncology at [place] [address] Ericka Forrest [facility] DR HEMATOLOGY [place] [address] 07/29/2024 2:00 PM EDT Office Visit Radiation Oncology at [address] [phone] Kasie Marte MD [facility] DR [place] [address] documented as of this encounter Procedures Procedure Name Priority Date/Time Associated Diagnosis Comments XR WRIST 3 VIEWS LEFT Routine 09/15/2016 9:55 AM EDT Pain in left wrist documented in this encounter Results * XR Wrist Complete Min 3 views Left (Generic) (09/15/2016 9:55 AM EDT) Anatomical Region Laterality Modality Left Digital Radiogra phy Impressions 09/15/2016 10:02 AM EDT No fracture identified. Narrative 09/15/2016 10:02 AM EDT EXAMINATION: XR WRIST COMPLETE MIN 3 VIEWS LEFT (GENERIC) CLINICAL HISTORY: Left wrist pain. Evaluate for scaphoid fracture TECHNIQUE: Frontal, lateral, oblique, and navicular view radiographs of the left wrist were obtained. COMPARISON: Left wrist radiographs dated 09/02/16 FINDINGS: Overlying cast obscures fine bony detail. No fracture is identified. In particular, no scaphoid fracture is identified. No sclerosis, callus formation, or periosteal reaction is appreciated to indicate a healing fracture. No dislocation. Carpal bone alignment is within normal limits. Small marginal osteophytes and first carpometacarpal joint compatible with osteoarthropathy. Procedure Note Liana Saravia MD - 09/15/2016 EXAMINATION: XR WRIST COMPLETE MIN 3 VIEWS LEFT (GENERIC) CLINICAL HISTORY: Left wrist pain. Evaluate for scaphoid fracture TECHNIQUE: Frontal, lateral, oblique, and navicular view radiographs of the leftwrist were obtained. COMPARISON: Left wrist radiographs dated 09/02/16 FINDINGS: Overlying cast obscures fine bony detail. No fracture is identified. In particular, no scaphoid fracture is identified. No sclerosis, callusformation, or periosteal reaction is appreciated to indicate a healing fracture. No dislocation. Carpal bone alignment is within normal limits. Smallmarginal osteophytes and first carpometacarpal joint compatible withosteoarthropathy. IMPRESSION No fracture identified. Chapo Marin MD IMG DX ORDERABLES documented in this encounter Visit Diagnoses Diagnosis Pain in left wrist Pain in joint, forearm documented in this encounter Care Teams Bell Tier Relationship Specialty Start Date End Date Haylee Baptiste MD [address] [place] [address] PCP - General 01/21/10 documented as of this encounter
--- OUTSIDE RECORDS SUMMARY | 2023-12-15 12:41 | XMS_ITS | Encounter Summary ---
Author Organization [facility] Address [facility] [place] [address] Care Team Providers Care Engine House Helper Name Role Phone Haylee Baptiste MD Primary Care Provider [phone] Encounter Details Date Type Department Care Team (Late st Contact Info) Description 02/02/2010 1:00 PM EST Procedure visit [place] [address] Social History Tobacco Use Types Packs/Day Years [...] TH Visit (TeleHealth) Hematology [place] [address] Kati Burnette MD [facility] DR [place] [address] 01/24/2024 9:30 AM EST Appointment XRay at [address] [place] [phone] Jimmy Swann MD [facility] [place] [address] 01/24/2024 11:00 AM EST Office Visit Pain [place] [address] Regulo Wang PA [facility] [place] [address] 01/24/2024 2:45 PM EST Appointment Mammography at [place] [address] 01/24/2024 3:45 PM EST Office Visit General Surgery at [place] [address] Caitlyn Hirsch MD [facility] [place] [address] 03/20/2024 9:00 AM EST Office Visit Hematology and Oncology at [place] [address] Ericka Forrest, [facility] DR HEMATOLOGY [place] [address] 07/29/2024 2:00 PM EDT Office Visit Radiation Oncology at [address] [phone] Kasie Marte MD [facility] DR [place] [address] documented as of this encounter Visit Diagnoses Not on filedocumented in this encounter Care Teams Engine House Helper Relationship Specialty Start Date End Date Haylee Baptiste MD [address] [place], [place] [address] PCP - General 01/21/10 documented as of this encounter
--- OUTSIDE RECORDS SUMMARY | 2023-12-15 12:41 | XMS_ITS | Encounter Summary ---
Author Organization [facility] [place] [address] Care Team Providers Care Line Installation Supervisor Name Role Phone Haylee Baptiste MD Primary Care Provider [phone] Encounter Details Date Type Department Care Team (Late st Contact Info) Description 09/07/2016 Telephone [place] [address] Shawn Gillespie MD [facility] [place] [address] Social History Tobacco Use Types Packs/Day Years [...] encounter Miscellaneous Notes * Telephone Encounter - Shawn Gillespie - 09/07/2016 1:48 PM EDT I reviewed Ms. Alethea Velazquez's films with Dr. Atkinson and called and discussed treatment options with her including obtaining and MRI to evaluate for scaphoid fracture vs returning to clinic in 10-14 days with repeat XR out of cast. An MRI would help evaluate whether she has an acute fracture that may benefit from surgical intervention (percutaneous pinning). She states that she would prefer to follow-up in clinic. We will arrange follow-up with one of the Upper Extremity Associate Providers when she is scheduledto see Dr. Marin. She will need XR 3 views of her wrist including the scaphoid view out of cast. SHAWN GILLESPIE MD documented in this encounter Plan of Treatment Upcoming Encounters Date Type Department Care Team (Late st Contact Info) Description 01/09/2024 2:20 PM EST TH Visit (TeleHealth) Hematology and Oncology at [place] [phone] Kati Burnette MD [facility] DR HEMATOLOGY [place] [address] 01/24/2024 9:30 AM EST Appointment XRay at [address] [place] [address] Jimmy Swann MD [facility] [place] [address] 01/24/2024 11:00 AM EST Office Visit Pain and Spine Center at [address] Regulo Wang PA [facility] [place] [address] 01/24/2024 2:45 PM EST Appointment Mammography at [place] [address] 01/24/2024 3:45 PM EST Office Visit General Surgery at [address] Caitlyn Hirsch MD [facility] [place] [address] 03/20/2024 9:00 AM EST Office Visit Hematology [place] [address] Ericka Forrest, [facility] [place] [address] 07/29/2024 2:00 PM EDT Office Visit Radiation Oncology at [address] [phone] Kasie Marte MD [facility] [place] [address] documented as of this encounter Results * [...] in left wrist Pain in joint, forearm Pain in left wrist Pain in joint, forearm documented in this encounter Care Teams Line Installation Supervisor Relationship Specialty Start Date End Date Haylee Baptiste MD [address] [place] [address] PCP - General 01/21/10 documented as of this encounter
--- OUTSIDE RECORDS SUMMARY | 2023-12-15 12:41 | XMS_ITS | Encounter Summary ---
Author Organization [facility] Address [facility] [place] [address] Care Team Providers Care Resident Programs Assistant Name Role Phone Haylee Baptiste MD Primary Care Provider [phone] Encounter Details Date Type Department Care Team (Latest Contact Info) Description 09/02/2016 - 09/02/2016 12:14 AM EDT Hospital Encounter Radiology Library [place] [address] Chapo Marin MD [facility] [place] [address] Pain Discharge Disposition: Home Social History Tobacco [...] End Date fluticasone propionate (Flonase) 50 mcg/actuation [place], Suspension 1 spray by Each Nare route [...] TH Visit (TeleHealth) [place]ology [place] [address] Kati Burnette MD [facility] HEMATOLOGY [place] [address] 01/24/2024 9:30 AM EST Appointment XRay at [address] [place] [phone] Jimmy Swann MD [facility] [place] [address] 01/24/2024 11:00 AM EST Office Visit [place] [address] Regulo Wang PA [facility] [place] [address] 01/24/2024 2:45 PM EST [place] [address] 01/24/2024 3:45 PM EST Office [place] [phone] Caitlyn Hirsch MD [facility] [place] [address] 03/20/2024 9:00 AM EST Office Visit [place]ematology [place] [phone] Ericka Forrest, [facility] DR HEMATOLOGY [place] [address] 07/29/2024 2:00 PM EDT Office Visit Radiation Oncology at [address] [address] Kasie Marte MD [facility] [place] [address] documented as of this encounter Procedures Procedure Name Priority Date/Time Associated Diagnosis Comments FILM LIBRARY STORAGE ONLY DX UPPER EXTREMITY Routine 09/02/2016 12:00 AM EDT Pain documented in this encounter Results * Film Library- Storage Only DX Upper Extremity (09/02/2016 12:00 AM EDT) Narrative [facility] - 09/03/2016 1:27 AM EDT This exam is for storage only and is auto-finalizing. Chapo Marin MD IMG FILM LIBRARY ORD ERABLES [place], [place] documented in this encounter Visit Diagnoses Diagnosis Pain Generalized pain documented in this encounter Care Teams Resident Programs Assistant Relationship Specialty Start Date End Date Haylee Baptiste MD [address] [place] [address] PCP - General 01/21/10 documented as of this encounter
--- OUTSIDE RECORDS SUMMARY | 2023-12-15 12:41 | XMS_ITS | Encounter Summary ---
[place] [address] Care Team Providers Care Overhead Garage Door Hanger Name Role Phone Haylee Baptiste MD Primary Care Provider [phone] Encounter Details Date Type Department Care Team (Latest Contact Info) Description 08/03/2010 1:31 PM EDT - 08/03/2010 11:59 PM EDT Hospital Encounter [address] [address] Haylee Baptiste MD [address] [place], [place] [address] Discharge Disposition: Home Social History Tobacco Use [...] TH Visit (TeleHealth) Hematology and Oncology at [place] [address] Kati Burnette MD [facility] [place] [address] 01/24/2024 9:30 AM EST Appointment XRay at [address] [place] [address] Jimmy Swann MD [facility] [place] [address] 01/24/2024 11:00 AM EST Office Visit Pain and Spine Center at [place] [phone] Regulo Wang PA [facility] [place] [address] 01/24/2024 2:45 PM EST Appointment Mammography at [place] [address] 01/24/2024 3:45 PM EST Office Visit General Surgery at [address] Caitlyn Hirsch MD [facility] [place] [address] 03/20/2024 9:00 AM EST Office Visit [place]ematology [place] [address] Ericka Forrest, [facility] [place] [address] 07/29/2024 2:00 PM EDT Office Visit Radiation Oncology at [address] [phone] Kasie Marte MD [facility] [place] [address] documented as of this encounter Visit Diagnoses Not on filedocumented in this encounter Care Teams Overhead Garage Door Hanger Relationship Specialty Start Date End Date Haylee Baptiste MD [address] [place] [address] PCP - General 01/21/10 documented as of this encounter
--- OUTSIDE RECORDS SUMMARY | 2023-12-15 12:41 | XMS_ITS | Encounter Summary ---
Author Organization [facility] Address [facility] [place] [address] Care Team Providers Care Medical Coding Specialist Name Role Phone Haylee Baptiste MD Primary Care Provider [phone] Encounter Details Date Type Department Care Team (Late st Contact Info) Description 10/09/2013 Ancillary Procedure Radiology Library at [facility] [place] [address] Haylee Baptiste MD [address] [place] [address] Social History Tobacco Use Types Packs/Day [...] TH Visit (TeleHealth) Hematology [place] [address] Kati Burnette MD [facility] HEMATOLOGY [place] [address] 01/24/2024 9:30 AM EST Appointment XRay at [address] [place] [address] Jimmy Swann MD [facility] [place] [address] 01/24/2024 11:00 AM EST Office Visit Pain [place] [phone] Regulo Wang PA [facility] [place] [address] 01/24/2024 2:45 PM EST Appointment Mammography at [place] [phone] 01/24/2024 3:45 PM EST Office Visit General Surgery at [place] [phone] Caitlyn Hirsch MD [facility] [place] [address] 03/20/2024 9:00 AM EST Office Visit Hematology [place] [address] Ericka Forrest, [facility] DR [place]ATOLOG[place] [address] 07/29/2024 2:00 PM EDT Office Visit Radiation Oncology at [address] [phone] Kasie Marte MD [facility] [place] [address] documented as of this encounter Procedures Procedure Name Priority Date/Time Associated Diagnosis Comments FILM LIBRARY STORAGE ONLY MAMMO Routine 10/09/2013 12:00 AM EDT documented in this encounter Results * Film Library- Storage Only Mammo (10/09/2013 12:00 AM EDT) Narrative [facility] - 01/01/2021 1:49 PM EST This exam is auto-finalizing. It's purpose is for storage only. Haylee Baptiste MD IM FILM LIBRARY ORD ERABLES [place], [place] documented in this encounter Visit Diagnoses Not on filedocumented in this encounter Care Teams Medical Coding Specialist Relationship Specialty Start Date End Date Haylee Baptiste MD [address] [place] [address] PCP - General 01/21/10 documented as of this encounter
--- OUTSIDE RECORDS SUMMARY | 2023-12-15 12:41 | XMS_ITS | Encounter Summary ---
Author Organization [place] [address] Care Team Providers Care Junk Dealer Name Role Phone Haylee Baptiste MD Primary Care Provider [phone] Reason for Visit * Reason Comments Leg Problem DOI 09/02/2016 Encounter Details Date Type Department Care Team (Late st Contact Info) Description 09/29/2016 1:30 PM EDT Office Visit [place] [address] Buddy Clark PA [facility] [place] [address] Achilles tendon tear, left, sequela (Primary Dx) Social History Tobacco Use Types [...] Sign Reading Time Taken Comments Blood Pressure 140/64 09/29/2016 12:55 PM EDT Pulse 80 09/29/2016 12:55 PM EDT Temperature - - Respiratory Rate - - Oxygen Saturation - - Inhaled Oxygen Concentration - - Weight 81.6 kg (180 lb) 09/29/2016 12:55 PM EDT pt reported Height 157.5 cm (5' 2) 09/29/2016 12:55 PM EDT pt reported Body Mass Index 32.92 09/29/2016 12:55 PM EDT documented in this encounter Progress Notes * Jose Gutierrez - 09/29/2016 1:30 PM EDT Nallely Velazquez presents to the clinic for a short leg cast off per Buddy MARTINEZ. The cast was intact upon arrival. The patient was explained how the cast saw works and the cast was removed. The patient tolerated this procedure well. The patient's skin was intact. The paitent was secured into the posterior half of the cast for comfort and was then sent to x-ray. * Buddy Clark PA - 09/29/2016 1:30 PM EDT Chief complaint: Plan follow-up status post 2 weeks of casting equinus for left Achilles heel cord rupture History of present illness: Nallely Velazquez is a 61 y.o. year-old female who presents today for evaluation of the above. Patient's when she is remain nonweightbearing on her left lower extremity. She virtually has no pain due to her heel at this point in time. She denies any new falls or accidents or injuries. She presents today, she had her cast off prior to the appointment, she presents today with x-rays as well. She is eager to begin weightbearing. 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 She wonders how much healing has occurred, and when we can begin physical therapy. Past medical history: Patient Active Problem List Diagnosis Date Noted ??? Achilles tendon tear, left 09/06/2016 ??? Type 2 diabetes mellitus with hyperglycemia, with long-term current use of insulin 09/06/2016 ??? Hypertension 09/06/2016 ??? senior care current use of antithrombotics/antiplatelets 09/06/2016 ??? Prinzmetal angina 09/06/2016 History of blood clots or bleeding disorders: Denies Denies history of cardiac, lung, kidney, liver diease or diabetes Medications: ??? HYDROcodone-acetaminophen (NORCO) 5-325 mg Tablet [...] tobacco: Never Used ??? 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 There is eschar over the previous blister. No surrounding erythema. No expression upon discharge. There is a firm bunch of callus about the area of the heel cord rupture. The foot and ankle was not tested today. DP/PT pulses are 2+. Sensation is intact light touch over the superficial peroneal, deep peroneal, sural, saphenous, tibial nerve distributions. Imaging: Personal review of the patient's imaging reveals: X-rays obtain reviewed which shows no new fracture, dislocation, or displacement. There remains a avulsed piece, proximally of the Moraima's deformity. There is bony resorption at the area of the Moraima's piece and at the base of the calcaneus. No more proximal or distal migration of the Moraima's deformity. No new interval callus. Assessment: 61 y.o. year-old female status post left Achilles heel cord rupture Plan: We reviewed her imaging. We discussed that we would much prefer to operate on this injury, but due to her hemoglobin A1c elevation, we were unable to. We discussed that she will likely have some residual weakness because of this. We discussed to give her the best chance for referred pain someof her strength in her left heel cord, we should extend and delay the Achilles tear physical therapy protocol. We should complete another 2 weeks of nonweightbearing, however the patient is amenable to switching to an Achilles walker boot and remaining this at all times and treating this like a cast. Patient is receptive to not bearing weight on the left lower extremity. She can use a knee scooter. Patient is amenable to the above. She'll schedule follow-up with an x-ray in 2 weeks. We discussed at that point time of her exam and regress reassuring, we should be able to initiate the Achilles therapy rehabilitation protocol. Follow up: 2 weeks with x-rays This plan was discussed with the patient and they are in agreement. All of the patient's questions were answered. The above dictation was made with voice recogonition software documented in this encounter Plan of Treatment Upcoming Encounters Date Type Department Care Team (Late st Contact Info) Description 01/09/2024 2:20 PM EST TH Visit (TeleHealth) Hematology and Oncology at [place] [phone] Kati Burnette MD [facility] [place] [address] 01/24/2024 9:30 AM EST Appointment XRay at [address] [place] [address] Jimmy Swann MD [facility] [place] [place] [address] 01/24/2024 11:00 AM EST Office Visit Pain and Spine Center at [place] [address] Regulo Wang PA [facility] [place] [address] 01/24/2024 2:45 PM EST Appointment Mammography at [place] [address] 01/24/2024 3:45 PM EST Office Visit General Surgery at [place] [address] Caitlyn Hirsch MD [facility] [place] [address] 03/20/2024 9:00 AM EST Office Visit Hematology and Oncology at [place] [address] Ericka Forrest, [facility] [place] [address] 07/29/2024 2:00 PM EDT Office Visit Radiation Oncology at [address] [phone] Kasie Marte MD [facility] [place] [address] documented as of this encounter Results * [...] deformity. Chapo Marin MD IMG DX ORDERABLES * XR Ankle Min 3 views Left [...] joint spaces are normal. Procedure Note Chelsea Saravia MD - 09/29/2016 EXAMINATION: XR ANKLE MIN [...] Visit Diagnoses Diagnosis Achilles tendon tear, left, sequela- Primary Achilles tendon tear, left, sequela Achilles tendon tear, left, sequela documented in this encounter Care Teams Junk Dealer Relationship Specialty Start Date End Date Haylee Baptiste MD [address] [place] [address] PCP - General 01/21/10 documented as of this encounter
--- OUTSIDE RECORDS SUMMARY | 2023-12-15 12:41 | XMS_ITS | Encounter Summary ---
Author Organization [facility] Address [facility] [place] [address] Care Team Providers Care Fusing Machine Operator Name Role Phone Haylee Baptiste MD Primary Care Provider [phone] Encounter Details Date Type Department Care Team (Late st Contact Info) Description 01/07/2015 Orders Only Cardiology at [address] [address] Sara Aguirre PA [facility] [place] [address] ASCVD (arteriosclerotic cardiovascular disease) Social History Tobacco Use Types Packs/Day Years [...] TH Visit (TeleHealth) Hematology [place] [phone] Kati Burnette MD [facility] H[place] [address] 01/24/2024 9:30 AM EST Appointment XRay at [address] [place] [phone] Jimmy Swann MD [facility] [place] [address] 01/24/2024 11:00 AM EST Office Visit Pain [place] [address] Regulo Wang PA [facility] [place] [address] 01/24/2024 2:45 PM EST Appointment Mammography at [address] 01/24/2024 3:45 PM EST Office Visit [place] [address] Caitlyn Hirsch MD [facility] [place] [address] 03/20/2024 9:00 AM EST Office Visit Hematology and Oncology at [place] [address] Ericka Forrest, [facility] [place] DR HEMATOLOGY [place] [address] 07/29/2024 2:00 PM EDT Office Visit Radiation Oncology at [address] [phone] Kasie Marte MD [facility] [place] [address] documented as of this encounter Procedures Procedure Name Priority Date/Time Associated Diagnosis Comments CARDIAC CATHETERIZATION Routine 01/14/2015 10:13 AM EST ASCVD (arteriosclerotic cardiovascular disease) documented in this encounter Results * CARDIAC CATHETERIZATION (01/14/2015 10:13 AM EST) Anatomical Region Laterality Modality Other Narrative 01/14/2015 10:13 AM EST ?[facility] ? Cardiac Catheterization/Intervention Report ? Patient Name: Hawlyanci Velazquez, Nallely D. ? Procedure Date: 01/14/2015 ? A #: [id number] ? Primary Physician: Nielsen, Jonnathan V ? Case #: [id number] ? File Name: [id number] ? Catheterization Order Number: [id number] ? [facility] ? Final Report [place], [place] ? Patient Name: ? Nallely Velazquez ? ID#: ?[id number] ? : ?1955 ? Procedure Date: ? January 14, 2015 ? Case #: ? [id number] ? Room: ? 1 ? Case Physician: ? Jonnathan Nielsen M.D. ? Start: ?08:53 ? Admission: ??01/14/2015 ? Procedures: ?* Coronary Angiography ?* Left Heart Catheterization ?* Coronary Instantaneous Wave-Free Ratio (iFR) ? History ?Nallely Velazquez is a 60 year old woman. She has ?hypercholesterolemia managed with lipid therapy. The patient has diabetes ?managed by diet and oral medication. She has a history of chest pain. The ?patient has a remote cerebral vascular accident. She also has a history ?of an abnormal echocardiogram. Prior to the initiation of this procedure, ?the patient was designated as ASA Class IV. ? Patient Status at Catheterization: ?The patient presented with: stable angina (w/i 42 days). [place] ?Cardiovascular Society angina class was II. This patient was on beta ?blockers prior to the procedure. An echo stress test was performed and ?results were Positive and Intermediate Risk ischemia assessment. ? Technique: ?A 6 SLFr sheath was inserted in the right radial artery utilizing the ?Seldinger technique. The left coronary artery was injected utilizing a ?5Fr JL 3.5 catheter. A 5Fr Ruddy Radial catheter was used to inject the ?right coronary artery. Left ventricle was performed with a 5Fr Ruddy ?Radial catheter. 6,500 units of heparin were administered. Intracoronary ?nitroglycerin was given during this case. A total of 150cc of Omnipaque ?were opened, 126cc of Omnipaque were administered and 24cc of Omnipaque ?were wasted. Radiation: Fluoro time was 12.4 minutes, dose area product ?was 62,911 mGYcm2 and air kerma was 1,143 mGY. ?The patient received the following medications prior to and during the ?procedure: Aspirin (any), Clopidogrel and Unfractionated Heparin (any). ? Hemodynamics: ?Left Heart Pressures ? Resting: ? Syst Diast ? EDP ?a ?v ? m ?Ao 123 ?? 70 ?96 ?LV 121 ? 13 ? Coronary Angiography: ?Dominance: Right ?Left Main ? The left main was normal. ?Left Anterior Descending ? There was a 20% hazy single discrete stenosis of the ostial segment ? of the left anterior descending artery (LAD). ??The LAD was large. ? The mid segment of the LAD had a hazy long segmental 40% stenosis. ?Left Circumflex ? The left circumflex (LCX) was normal. ?Right Coronary Artery ? The right coronary artery (RCA) was normal. ? Intravascular Imaging/Physiology: ?Instantaneous wave-free ratio (iFR) was determined across the 20% ?stenosis in the ostial LAD using a 6 Fr EBU 3.0 guiding catheter and a ?Verrata wire. ??Wire delivery was successful. ??The IFR across the 20% ?ostial LAD lesion was 0.99. ??This lesion was not hemodynamically ?significant. ??Lesions are generally considered to be hemodynamically ?significant if the iFR is less than or equal to 0.85, and are considered ?to be indeterminate in the range from 0.86 to 0.93. ?Instantaneous wave-free ratio (iFR) was determined across the 40% ?stenosis in the mid LAD using a 6 Fr EBU 3.0 guiding catheter and a ?Verrata wire. ??Wire delivery was successful. ??The IFR across the 40% mid ?LAD lesion was 0.99. ??This lesion was not hemodynamically significant. ?Lesions are generally considered to be hemodynamically significant if the ?iFR is less than or equal to 0.85, and are considered to be indeterminate ?in the range from 0.86 to 0.93. ? Vascular Access: ?Vascular Access Management: ? Mechanical Compression of the right radial artery access site was ? performed. ? Conclusions: ?* Nonobstructive coronary artery disease ? Complications/Events: ?The patient had no complications during these procedures. ? Comments: ?Radial Access ?Access was obtained in the right/left radial artery using micropuncture ?technique after confirming a normal Allens test. ??A 0.035 Versicor wire ?was used to navigate the aortic arch vessels and to track a 5 Fr Ruddy ?catheter to the aortic root. ?? At the conclusion of the case, all sheaths ?and catheters were removed and a Vascular Band was applied for hemostasis ?over the radial access site. ??Neurovascular supply to the hand was intact ?at the conclusion of the case. ?The attending physician was present for the entire procedure. ?Dr. Jonnathan Nielsen M.D. performed the coronary angiography, left heart ?catheterization and IFR-coronary. ? Jonnathan V Nielsen, M.D. ? Electronically Signed by: Jonnathan V Nielsen, M.D. ? Report Finalized: 01/14/2015 ??10:03 ? Procedure Note Jonnathan Nielsen MD - 01/14/2015 [facility] Cardiac Catheterization/Intervention Report Patient Name: Nallely Muniz Procedure Date: 01/14/2015 A #: [id number] Primary Physician: Jonnathan Nielsen V Case #: [id number] File Name: [id number] Catheterization Order Number: [id number] [facility] FinalReport [place], [place] Patient Name: Nallely Velazquez ID#:[id number] :1955 Procedure Date: January 14, 2015 Case #: [id number] Room: 1 Case Physician: Jonnathan Nielsen M.D. Start: 08:53 Admission:01/14/2015 Procedures: * Coronary Angiography * Left Heart Catheterization * Coronary Instantaneous Wave-Free Ratio (iFR) History Nallely Velazquez is a 60 year old woman. She has hypercholesterolemia managed with lipid therapy. The patient hasdiabetes managed by diet and oral medication. She has a history of chestpain. The patient has a remote cerebral vascular accident. She also has ahistory of an abnormal echocardiogram. Prior to the initiation of thisprocedure, the patient was designated as ASA Class IV. Patient Status at Catheterization: The patient presented with: stable angina (w/i 42 days). [place] Cardiovascular Society angina class was II. This patient was on beta blockers prior to the procedure. An echo stress test was performedand results were Positive and Intermediate Risk ischemia assessment. Technique: A 6 SLFr sheath was inserted in the right radial artery utilizingthe Seldinger technique. The left coronary artery was injected utilizinga 5Fr JL 3.5 catheter. A 5Fr Ruddy Radial catheter was used to injectthe right coronary artery. Left ventricle was performed with a 5Fr Ruddy Radial catheter. 6,500 units of heparin were administered.Intracoronary nitroglycerin was given during this case. A total of 150cc ofOmnipaque were opened, 126cc of Omnipaque were administered and 24cc ofOmnipaque were wasted. Radiation: Fluoro time was 12.4 minutes, dose areaproduct was 62,911 mGYcm2 and air kerma was 1,143 mGY. The patient received the following medications prior to and duringthe procedure: Aspirin (any), Clopidogrel and Unfractionated Heparin(any). Hemodynamics: Left Heart Pressures Resting: Syst Diast EDP a v m Ao 123 70 96 LV 121 13 Coronary Angiography: Dominance: Right Left Main The left main was normal. Left Anterior Descending There was a 20% hazy single discrete stenosis of the ostialsegment of the left anterior descending artery (LAD). The LAD waslarge. The mid segment of the LAD had a hazy long segmental 40%stenosis. Left Circumflex The left circumflex (LCX) was normal. Right Coronary Artery The right coronary artery (RCA) was normal. Intravascular Imaging/Physiology: Instantaneous wave-free ratio (iFR) was determined across the 20% stenosis in the ostial LAD using a 6 Fr EBU 3.0 guiding catheter kirby Verrata wire. Wire delivery was successful. The IFR across the 20% ostial LAD lesion was 0.99. This lesion was not hemodynamically significant. Lesions are generally considered to be hemodynamically significant if the iFR is less than or equal to 0.85, and areconsidered to be indeterminate in the range from 0.86 to 0.93. Instantaneous wave-free ratio (iFR) was determined across the 40% stenosis in the mid LAD using a 6 Fr EBU 3.0 guiding catheter and a Verrata wire. Wire delivery was successful. The IFR across the 40%mid LAD lesion was 0.99. This lesion was not hemodynamicallysignificant. Lesions are generally considered to be hemodynamically significantif the iFR is less than or equal to 0.85, and are considered to beindeterminate in the range from 0.86 to 0.93. Vascular Access: Vascular Access Management: Mechanical Compression of the right radial artery access sitewas performed. Conclusions: * Nonobstructive coronary artery disease Complications/Events: The patient had no complications during these procedures. Comments: Radial Access Access was obtained in the right/left radial artery usingmicropuncture technique after confirming a normal Allens test. A 0.035 Versicorwire was used to navigate the aortic arch vessels and to track a 5 FrJacky catheter to the aortic root. At the conclusion of the case, allsheaths and catheters were removed and a Vascular Band was applied forhemostasis over the radial access site. Neurovascular supply to the hand wasintact at the conclusion of the case. The attending physician was present for the entire procedure. Dr. Jonnathan Nielsen M.D. performed the coronary angiography, leftheart catheterization and IFR-coronary. Jonnathan Nielsen M.D. Electronically Signed by: Jonnathan Nielsen M.D. Report Finalized: 01/14/2015 10:03 Jonnathan Kelley MD CARDIAC CATH ORDERAB LES documented in this encounter Visit Diagnoses Diagnosis ASCVD (arteriosclerotic cardiovascular disease) Unspecified cardiovascular disease ASCVD (arteriosclerotic cardiovascular disease) Unspecified cardiovascular disease documented in this encounter Care Teams Fusing Machine Operator Relationship Specialty Start Date End Date Haylee Baptiste MD [address] [place] [address] PCP - General 01/21/10 documented as of this encounter
--- OUTSIDE RECORDS SUMMARY | 2023-12-15 12:41 | XMS_ITS | Encounter Summary ---
Author Organization [facility] [place] [address] Care Team Providers Care Press Operator Heavy Duty Name Role Phone Haylee Baptiste MD Primary Care Provider [phone] Encounter Details Date Type Department Care Team (Late st Contact Info) Description 09/07/2016 [place] [address] Chapo Marin MD [facility] [place] [address] Social History Tobacco Use Types Packs/Day Years [...] encounter Miscellaneous Notes * Telephone Encounter - Chapo Marin MD - 09/07/2016 9:34 AM EDT I talked to the patient on the phone. Given her Hgb A1C > 10, I think that surgery has a high risk of complication. She acknowledges that she may have some weakness, but I think non operative treatment is the best risk/benefit tradeoff for her. She is in agreement. Plan for follow up in 1-1.5 weeks for transition to equinus cast and continued NWB until she is 4 weeks out from injury. documented in this encounter Plan of Treatment Upcoming Encounters Date Type Department Care Team (Late st Contact Info) Description 01/09/2024 2:20 PM EST TH Visit (TeleHealth) Hematology and Oncology at [place] [phone] Kati Burnette MD [facility] [place] [address] 01/24/2024 9:30 AM EST Appointment XRay at [address] [place] [address] Jimmy Swann MD [facility] [place] [place] [address] 01/24/2024 11:00 AM EST Office Visit Pain and Spine Center at [address] Regulo Wang PA [facility] [place] [address] 01/24/2024 2:45 PM EST Appointment Mammography at [place] [phone] 01/24/2024 3:45 PM EST Office Visit General Surgery at [address] Caitlyn Hirsch MD [facility] [place] [address] 03/20/2024 9:00 AM EST Office Visit Hematology and Oncology at [place] [phone] Ericka Forrest, [facility] [place] [address] 07/29/2024 2:00 PM EDT Office Visit Radiation Oncology at [address] [phone] Kasie Marte MD [facility] [place] [address] documented as of this encounter Visit Diagnoses Not on filedocumented in this encounter Care Teams Press Operator Heavy Duty Relationship Specialty Start Date End Date Haylee Baptiste MD [address] [place] [address] PCP - General 01/21/10 documented as of this encounter
--- OUTSIDE RECORDS SUMMARY | 2023-12-15 12:41 | XMS_ITS | Encounter Summary ---
Author Organization [facility] [place] [address] Care Team Providers Care Residential Solar Sales Consultant Name Role Phone Haylee Baptiste MD Primary Care Provider [phone] Reason for Visit * Reason Comments Left Ankle Pain DOI 09/03 * Consultation (Routine) - Specialty Diagnoses / Procedures Referred By Mike jalloh Referred To Contact Orthopaedics Procedures ? left Achilles tendon rupture 09/02/16 Self mail [facility] [address] [place] [address] Referral ID Status Reason Start Date Expiration Date V isits Requested Visits Authorized [id number] 09/05/2016 09/05/2017 1 1 Encounter Details Date Type Department Care Team (Late st Contact Info) Description 09/06/2016 1:20 PM EDT Office [place] [phone] Chapo Marin MD [facility] [place] [address] Achilles tendon tear, left, initial encounter Social History Tobacco Use Types Packs/Day [...] Time Taken Comments Blood Pressure 147/68 09/06/2016 1:38 PM EDT Pulse 96 09/06/2016 1:38 PM EDT Temperature - - Respiratory Rate - - Oxygen Saturation - - Inhaled Oxygen Concentration - - Weight 82.6 kg (182 lb) 09/06/2016 1:38 PM EDT Height 157.5 cm (5' 2) 09/06/2016 1:38 PM EDT Body Mass Index 33.29 09/06/2016 1:38 PM EDT documented in this encounter Progress Notes * Buddy Clark PA - 09/06/2016 1:20 PM EDT Chief complaint: Left ankle pain History of present illness: Nallely Velazquez is a 61 y.o. year-old female who presents today for evaluation for left ankle pain and possible Achilles tendon rupture when on 09/03 she was walking her damage up her, weighs 120 pounds, saw And pulled her. She had a fall on an outstretched hand andheard a pop in the back of her left ankle. She presented for evaluation, she was placed in a removable splint for a questionable scaphoid fracture, was placed in a removable orthosis in her left ankle for a likely Achilles tendon tear and was referred here subsequently. Patient denies any recent history of steroids, antibiotics. She does have sarcoidosis and has been on prednisone in the past, but nothing recently. 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 She denies any history of heart attack or stroke, she did have a questionable TIA and has been placed on Plavix for this. She has type 2 diabetes, her last Farrar A1c was around 10%. She did explain that she had a blood clot in the 1970s with history with blunt tenderness, nothing recently. Patient is a nonsmoker. Past medical history: Patient Active Problem List Diagnosis Date Noted ??? Achilles tendon tear, left 09/06/2016 History of blood clots or bleeding disorders: Denies Denies history of cardiac, lung, kidney, liver diease or diabetes Medications: ??? HYDROcodone-acetaminophen (NORCO) 5-325 mg Tablet ??? sitaGLIPtin (JANUVIA) 100 mg Tablet ??? [...] ??? omeprazole (PRILOSEC) 20 mg capsule ??? atorvastatin (LIPITOR) 80 mg tablet ??? ASPIRIN ORAL ??? ondansetron (ZOFRAN-ODT) 4 mg Tablet, Rapid Dissolve ??? topiramate (TOPAMAX) 25 mg Tablet ??? meclizine (ANTIVERT) 25 mg tablet Allergies: Allergies Allergen Reactions ??? Iodine And [...] chills Questionnaire Responses: myD-H Hip & Knee 09/06/2016 PROMIS-10 General Health Very Good PROMIS-10 Quality of Life Excellent PROMIS-10 Physical Health Very Good PROMIS-10 Mental Health Excellent PROMIS-10 Social Activity and Relationship Satisfaction Excellent PROMIS-10 Social Roles at Home and Work Excellent PROMIS-10 Everyday Physical Activities Moderately PROMIS-10 Anxious or Depressed last 7 days Never PROMIS-10 Fatigue last 7 days None PROMIS-10 Pain last 7 days 5 PROMIS PHYSICAL HEALTH SCORE (range 16-68) 47.7 PROMIS MENTAL HEALTH SCORE (range 21-68) 67.6 Physical Exam: No Apparent distress Left ankle exam: There is a 1+/2+ ankle effusion. There is yellow ecchymosis about the distal posterior aspect of the ankle. There is a palpable defect, of the distal 2-3 cm of the Achilles tendon. There is a positive King test, compared to the contralateral side, which is negative in the prone position. Imaging: Personal review of the patient's imaging reveals: X-rays obtained and reviewed which show an avulsion type fracture of the insertion site of the Achilles on a likely Moraima's deformity preinjury. This is consistent with a torn Achilles tendon thereis no other foot fractures seen or Lisfranc injury. Assessment: 61 y.o. year-old female with an Achilles tendon tear Plan: We reviewed her clinical exam and radiographs. We discussed this is highly suggestive of an Achilles tendon tear. We discussed obtaining an MRI for confirmatory results, but her clinical exam is reassuring for this diagnosis. We discussed treatments, conservatively and surgically. Discussed outcomes. We discussed the nature of her tear we would likely offer her surgery. Risk factors, diabetes, history of blood clot TIA. We discussed concern for wound healing problems, infection, bleeding,damage to nerves and vessels, continued pain. We discussed that with her diabetes wound healing issues and infection become more common. Discussed with an infection, we could consider flap type procedures with tendon grafting if this occurs. Patient is receptive to this and she would like to avoid surgery if possible. We discussed that with her injury, severity of it with offer surgery for this. We should have This patient was seen in conjuncture with Dr. Marin. Follow up: Proceed with Achilles Tendon Repair. This plan was discussed with the patient and they are in agreement. All of the patient's questions were answered. The above dictation was made with voice recogonition software I saw and evaluated the patient on the date of the primary author's note. I have reviewed and agree with the findings and the plan of care as outlined in their note, with the following additions or alterations: 61-year-old female with poorly controlled diabetes she has what appears to be an avulsion of her Achilles from its insertion onto her calcaneus. This is pulled a large piece of bone from her insertional Achilles tendinopathy. Her King test prone shows no passive plantar flexion with calf squeeze. She has a large ecchymotic area and a palpable defect between the piece of bone that is proximal to the calcaneus as viewed on her x-ray. We are having previous [facility] pushed [facility] of her ankleprior to the injury. Given the nature of this injury, I did suggest surgery for repair for the bestfunctional outcome. However, given her poorly controlled diabetes she is at significant risk for wound healing problems. Despite this, she wishes to move forward with surgery. We will have her see Dr. Eaton prior. We will also have her admitted for overnight stay so that she can be seen by thediabetes management team. I stressed the importance of tight glucose control, likely with insulin, postoperatively. As well. She fell on her left wrist and has the potential nondisplaced scaphoid fracture. She will be placed in a short arm spica cast today. We will plan on obtaining a CT scan when she is an inpatient for surgery. Chapo Marin MD, MS Orthopaedic Surgery Attending documented in this encounter Miscellaneous Notes * Addendum Note - Chris Pena - 09/06/2016 3:58 PM EDTAddended by: CHRIS PENA on: 09/06/2016 03:58 PM Modules accepted: Orders * Addendum Note - Shawn Gillespie - 09/06/2016 3:32 PM EDTAddended by: SHAWN GILLESPIE on: 09/06/2016 03:32 PM Modules accepted: Orders documented in this encounter Plan of Treatment Upcoming Encounters Date Type Department Care Team (Late st Contact Info) Description 01/09/2024 2:20 PM EST TH Visit (TeleHealth) Hematology [place] [address] Kati Burnette MD [facility] [place] [address] 01/24/2024 9:30 AM EST Appointment XRay at [address] [place] [address] Jimmy Swann MD [facility] [place] [address] 01/24/2024 11:00 AM EST Office Visit [place] [address] Regulo Wang PA [facility] [place] [address] 01/24/2024 2:45 PM EST [place] [address] 01/24/2024 3:45 PM EST Office [place] [phone] Caitlyn Hirsch MD [facility] [place] [address] 03/20/2024 9:00 AM EST Office Visit Hematology [place] [address] Ericka Forrest, [facility] [address] [place] [address] 07/29/2024 2:00 PM EDT Office Visit Radiation Oncology at [address] [phone] Kasie Marte MD [facility] [place] [address] documented as of this encounter Procedures Procedure Name Priority Date/Time Associated Diagnosis Comments HEMOGRAM Routine 09/06/2016 4:14 PM EDT Achilles tendon tear, left, initial encounter DIFFERENTIAL, AUTOMATED Routine 09/06/2016 4:14 PM EDT Achilles tendon tear, left, initial encounter CBC (WITH DIFF) Routine 09/06/2016 4:14 PM EDT Achilles tendon tear, left, initial encounter HEMOGLOBIN A1C Routine 09/06/2016 4:14 PM EDT Achilles tendon tear, left, initial encounter BASIC METABOLIC PANEL Routine 09/06/2016 4:14 PM EDT Achilles tendon tear, left, initial encounter documented in this encounter Results * (ABNORMAL) Differential, Automated (09/06/2016 4:14 PM EDT) Neutrophil % 76.4 % [facility] Neutrophil Absolute 11.39(H) 1.70 - 6.10 x10(3)/mc L [facility] Lymph % 16.5 % [facility] Lymphocytes Abs 2.5 0.9 - 3.2 x10(3)/[facility] Monocyte % 5.0 % [facility] Monocyte Abs 0.7 0.3 - 0.9 x10(3)/[facility] Eos % 1.3 % [facility] Eosinophils Abs 0.2 0.0 - 0.4 x10(3)/[facility] Basophil % 0.4 % [facility] Baso Absolute 0.1 0.0 - 0.1 x10(3)/[facility] Immature Gran % 0.40 % [facility] Comment: Immature granulocytes(IG's)percentage and absolute count will include metamyelocytes, myelocytes, and promyelocytes. Blood smears from CBCs yielding IG's will be scanned manually for concordance. If this scan disagrees with the automated IG or if promyelocytes are noted, a manual differential will be performed. Immature Gran Absolute 0.06(H) 0.00 - 0.04 x10(3)/ L [facility] Blood specimen (specimen) 09/06/2016 4:14 PM EDT 09/06/2016 4:18 PM EDT Narrative Resulting Agency Comment Spec In Lab Chapo Marin MD HEMATOLOGY ORDERABLE S [facility] [place] [address] * (ABNORMAL) Hemogram (09/06/2016 4:14 PM EDT) White Blood Cell 14.9(H) 4.0 - 9.5 x10(3)/[facility] Red Blood Cell 4.95 4.00 - 5.21 x10(6)/[facility] Hemoglobin 14.1 11.7 - 15.5 gm/dL [facility] Hematocrit 42.2 35.7 - 45.8 % [facility] Mean Cell Volume 85.3 82.6 - 94.4 fL [facility] Mean Cell Hemoglobin 28.5 27.1 - 32.0 pg [facility] Mean Cell Hemoglobin Concentration 33.4 31.7 - 35.0 gm/dL [facility] Platelet 336 145 - 357 x10(3)/[facility] RDW Standard Deviation 39.8 37.0 - 46.0 [facility] RDW coefficient of variation 13.0 11.5 - 14.1 % [facility] Mean Platelet Volume 11.5 7.6 - 12.9 fL [facility] NRBC% auto 0.0 % [facility] NRBC Absolute 0.000 0.000 - 0.000 x10(3)/[facility] Blood specimen (specimen) 09/06/2016 4:14 PM EDT 09/06/2016 4:18 PM EDT Narrative Resulting Agency Comment Spec In Lab Chapo Marin MD HEMATOLOGY ORDERABLE S [facility] [place] [address] * (ABNORMAL) Hemoglobin A1c (09/06/2016 4:14 PM EDT) Hemoglobin A1c 10.5(H) 4.3 - 5.6 % [facility] Comment: Reference Range: 4.3 [...] 36: Suppl. 1, S67-74 Estimated Average Glucose 255 mg/dL [facility] Comment: eAG equivalents for [...] into estimated average glucose values. ??Diabetes Care 2008:31(8):1408-5336. Blood specimen (specimen) 09/06/2016 4:14 PM EDT 09/06/2016 4:18 PM EDT Narrative Resulting Agency Comment Spec In Lab Chapo Marin MD CHEMISTRY ORDERABLES Performing Organization Address City/State/[facility] Co de Phone Number [facility] [place] [address] * (ABNORMAL) Basic Metabolic Panel (non-fasting) (09/06/2016 4:14 PM EDT) Glucose 427(H) 65 - 199 mg/dL [facility] Comment:Diabetes: >=200 mg/d L plus symptoms Blood Urea Nitrogen 11 8 - 18 mg/dL [facility] Creatinine 0.93 0.70 - 1.20 mg/dL [facility] Comment: Please note that the pediatric reference intervals supplied above were not validated at [facility]. Results from pediatric patients should be interpreted in conjunction to the patient's age, height and muscle mass. Sodium 136 135 - 145 mmol/L [facility] Potassium 4.2 3.5 - 5.0 mmol/L [facility] Comment: Please note: ??Patients with WBC >100,000 may have falsely elevated Potassium levels. ??For accurate Potassium quantification in these patients send serum separator tube (gold top) for subsequent determinations. ??Contact the Clinical Chemistry Laboratory if there are any questions. Chloride 99 98 - 107 mmol/L [facility] Carbon Dioxide 19(L) 22 - 31 mmol/L [facility] Anion Gap 18(H) 5 - 15 mmol/L [facility] Calcium 9.2 8.5 - 10.5 mg/dL [facility] Est Glomerular Filtration Rate >60 >=60 [facility] Comment: This estimated GFR (eGFR) value was calculated using the MDRD equation which has been validated on patients between the ages of 18 and 70. The MDRD should not be used to assess kidney function in patients < 18 years of age or in patients with extremes of body mass, or in patients with acute kidney failure. This value should be multiplied by 1.2 for patients. For further information please copy and paste the following links into your internet browser. http://60mo/DHnkdep http://60mo/DHMCnkf Blood specimen (specimen) 09/06/2016 4:14 PM EDT 09/06/2016 4:18 PM EDT Narrative Resulting Agency Comment Spec In Lab Chapo Marin MD CHEMISTRY ORDERABLES Performing Organization Address City/State/[facility] Co de Phone Number [facility] [place] [address] documented in this encounter Visit Diagnoses Diagnosis Achilles tendon tear, left, initial encounter documented in this encounter Care Teams Residential Solar Sales Consultant Relationship Specialty Start Date End Date Haylee Baptiste MD [address] [place] [address] PCP - General 01/21/10 documented as of this encounter
--- OUTSIDE RECORDS SUMMARY | 2023-12-15 12:41 | XMS_ITS | Encounter Summary ---
Author Organization [facility] Address [facility] [address] Care Team Providers Care Instructor Business Education Name Role Phone Haylee Baptiste MD Primary Care Provider [phone] Encounter Details Date Type Department Care Team (Late st Contact Info) Description 08/03/2010 [place] [phone] Haylee Baptiste MD [address] [place], [place] [id number] Social History Tobacco Use Types Packs/Day Years [...] TH Visit (TeleHealth) Hematology [place] [phone] Kati Burnette MD [facility] DR [place] [address] 01/24/2024 9:30 AM EST Appointment XRay at [address] [place] [phone] Jimmy Swann MD [facility] [place] [address] 01/24/2024 11:00 AM EST Office Visit Pain [place] [phone] Regulo Wang PA [facility] [place] [address] 01/24/2024 2:45 PM EST Appointment [place] [phone] 01/24/2024 3:45 PM EST Office Visit General Surgery at [place] [phone] Caitlyn Hirsch MD [facility] [place] [address] 03/20/2024 9:00 AM EST Office Visit Hematology [place] [phone] Ericka Forrest, [facility] DR [place] [address] 07/29/2024 2:00 PM EDT Office Visit Radiation Oncology at [address] [phone] Kasie Marte MD [facility] [place] [address] documented as of this encounter Procedures Procedure Name Priority Date/Time Associated Diagnosis Comments MAMMO DIRECT DIGITAL UNILATERAL Routine 08/03/2010 2:37 PM EDT documented in this encounter Results * MAMMO DIRECT DIGITAL UNILATERAL (08/03/2010 2:37 PM EDT) Anatomical Region Laterality Modality Breast N/A Mammography 08/03/2010 2:37 PM EDT Narrative 08/03/2010 4:17 PM EDT RIGHT BREAST MAMMOGRAM ON 08/03/10: ?? DIAGNOSTIC IMAGING SUMMARY: ?? RIGHT BREAST LESION 1: PROBABLY BENIGN (BIRADS Category 3). ?? Finding: Probable stable asymmetric density. ?? Size: 10mm. ?? Location: 1000, 10cm from the nipple. ?? Recommendation: Bilateral mammography in six month's time (MA4). This has been scheduled for 01/25/11 at 12:30pm. ?? Preliminary report E-mailed to Dr. Haylee Baptiste on 08/03/10. ?? NARRATIVE: ?? CLINICAL INDICATION: Follow-up of asymmetric density in the upper, outer quadrant of the Right breast. ?? TECHNIQUE: Right CC, Right MLO and Right XCC views obtained with direct digital capture. ?? FINDINGS: The 10mm asymmetric density in the upper, outer aspect of the Right breast is unchanged compared to her prior mammograms from 02/02/10 and also 05/22/07 when accounting for slight differences in technique. ? She should have bilateral mammography in six month's time which could be performed in a diagnostic setting and then if stability is shown at that point, return to annual bilateral mammographic screening. Procedure Note Dorothy Hammond MD - 08/03/2010 RIGHT BREAST MAMMOGRAM ON 08/03/10: DIAGNOSTIC IMAGING SUMMARY: RIGHT BREAST LESION 1: PROBABLY BENIGN (BIRADS Category 3). Finding: Probable stable asymmetric density. Size: 10mm. Location: 1000, 10cm from the nipple. Recommendation: Bilateral mammography in six month's time (MA4). This hasbeen scheduled for 01/25/11 at 12:30pm. Preliminary report E-mailed to Dr. Haylee Baptiste on 08/03/10. NARRATIVE: CLINICAL INDICATION: Follow-up of asymmetric density in the upper, outer quadrant of the Right breast. TECHNIQUE: Right CC, Right MLO and Right XCC views obtained with directdigital capture. FINDINGS: The 10mm asymmetric density in the upper, outer aspect of theRight breast is unchanged compared to her prior mammograms from 02/02/10 andalso 05/22/07 when accounting for slight differences in technique. She should have bilateral mammography in six month's time which could be performed in a diagnostic setting and then if stability is shown at thatpoint, return to annual bilateral mammographic screening. Haylee Baptiste MD IMG MAMMO ORDERABLES documented in this encounter Visit Diagnoses Not on filedocumented in this encounter Care Teams Instructor Business Education Relationship Specialty Start Date End Date Haylee Baptiste MD [address] [place] [address] PCP - General 01/21/10 documented as of this encounter
--- OUTSIDE RECORDS SUMMARY | 2023-12-15 12:41 | XMS_ITS | Encounter Summary ---
Author Organization [facility] Address [facility] [place] [address] Care Team Providers Care Coat Finisher Name Role Phone Haylee Baptiste MD Primary Care Provider [phone] Encounter Details Date Type Department Care Team (Latest Contact Info) Description 09/15/2016 10:56 AM EDT - 09/15/2016 11:59 PM EDT Hospital Encounter XRay at [address] [place] [address] Clinton Moran MD [facility] [place] [address] Wrist pain, acute, left Discharge Disposition: Home Social History Tobacco Use [...] End Date fluticasone propionate (Flonase) 50 mcg/actuation Gilbert, Suspension 1 spray by Each Nare route [...] TH Visit (TeleHealth) [place]ology [place] [phone] Kati Burnette MD [facility] HEMATOLOGY [place] [address] 01/24/2024 9:30 AM EST Appointment XRay at [address] [place] [phone] Jimmy Swann MD [facility] [place] [address] 01/24/2024 11:00 AM EST Office Visit Pain and Spine Center at [place] [address] Regluo Wang PA [facility] [place] [address] 01/24/2024 2:45 PM EST Appointment Mammography at [place] [address] 01/24/2024 3:45 PM EST Office [place] [address] Caitlyn Hirsch MD [facility] [place] [address] 03/20/2024 9:00 AM EST Office Visit Hematology and Oncology at [place] [address] Ericka Forrest, [facility] DR HEMATOLOGY [place] [address] 07/29/2024 2:00 PM EDT Office Visit Radiation Oncology at [address] [phone] Kasie Marte MD [facility] [place] [address] documented as of this encounter Procedures Procedure Name Priority Date/Time Associated Diagnosis Comments XR HAND MIN 3 VIEWS LEFT Routine 09/15/2016 11:33 AM EDT Wrist pain, acute, left documented in this encounter Results * XR [...] present. Normal appearance of scaphoid. Third metacarpal [id number] marginal radiolucency or cyst. Normal joint spaces. [...] present. Normal appearance of scaphoid. Third metacarpal [id number]-imwdckmqlnexw marginal radiolucency or cyst.Normal joint spaces. Third [...] Visit Diagnoses Diagnosis Wrist pain, acute, left documented in this encounter Care Teams Coat Finisher Relationship Specialty Start Date End Date Haylee Baptiste MD [address] [place] [address] PCP - General 01/21/10 documented as of this encounter
--- OUTSIDE RECORDS SUMMARY | 2023-12-15 12:41 | XMS_ITS | Encounter Summary ---
Author Organization [facility] Address [facility] [place] [address] Care Team Providers Care Supervisor Diagnostic Name Role Phone Haylee Baptiste MD Primary Care Provider [phone] Encounter Details Date Type Department Care Team (Late st Contact Info) Description 01/22/2010 11:59 AM EST - 01/22/2010 11:59 PM [facility] Hospital Encounter [facility] OP[facility] Haylee Baptiste MD [address] [place], [place] [address] Discharge Disposition: Home Social History Tobacco Use [...] TH Visit (TeleHealth) Hematology [place] [address] Kati Burnette MD [facility] [address] HEMATOLOGY [place] [address] 01/24/2024 9:30 AM EST Appointment XRay at [address] [place] [phone] Jimmy Swann MD [facility] [place] [address] 01/24/2024 11:00 AM EST Office Visit [facility] [place] [phone] Regulo Wang PA [facility] [place] [address] 01/24/2024 2:45 PM EST Appointment [place] [address] 01/24/2024 3:45 PM EST Office Visit [place] [phone] Caitlyn Hirsch MD [facility] [address] [place] [address] 03/20/2024 9:00 AM EST Office Visit Hematology [place] [address] Ericka Forrest, [facility] HEMATOLOGY [place] [address] 07/29/2024 2:00 PM EDT Office Visit Radiation Oncology at [address] [phone] Kasie Marte MD [facility] [place] [address] documented as of this encounter Visit Diagnoses Not on filedocumented in this encounter Care Teams Supervisor Diagnostic Relationship Specialty Start Date End Date Haylee Baptiste MD [address] [place] [address] PCP - General 01/21/10 documented as of this encounter
[2023-12-15 15:30] LABS: HCT 40.7 % (36.0-46.0); HGB 13.5 g/dL (11.2-15.7); MCHC 33.2 % (32.0-36.0); MCV 88 fL (80-95); MPV 10.8 fL (8.0-11.0); Platelet Count 268 10^3/uL (130-400); RBC 4.65 10^6/uL (3.93-5.22); RDW 12.7 % (11.7-14.6); RDW-SD 39.9 fL; WBC 7.27 10^3/uL (4.4-10.8)
[2023-12-15 15:51] LABS: ALT 22 U/L (14-59); AST 14 U/L (15-37); Albumin 3.5 g/dL (3.4-5.0); Alkaline Phosphatase 149 U/L (46-116); Anion Gap 9.3 mmol/L (3-11); BUN 19 mg/dL (7-18); Bilirubin, Total 0.33 mg/dL (0.2-1.0); CO2 25.7 mmol/L (21.0-32.0); CREATININE 1.4 mg/dL (0.55-1.02); Calcium 9.4 mg/dL (8.5-10.1); Chloride 104 mmol/L (98-107); Estimated GFR 40.73 (mL/min/1.73m2); Glucose 288 mg/dL (74-106); Potassium 4.7 mmol/L (3.5-5.1); Sodium 139 mmol/L (136-145); Total Protein 7.5 g/dL (6.4-8.2)
== END 2023-12-15 12:31 | disposition home or self-care (01) ==
LOC: NCHCN 12:30
PROVIDERS: PCP Family Medicine; Visit Provider Family Medicine
DX: I10 Essential (primary) hypertension (principal)
CPT/HCPCS: 80053; 85027

== ENCOUNTER → 2024-10-08 08:55 | Outpatient (BNVA) | payer MEDICARE, SELFPAY | PROVIDERS: PCP Family Medicine; Referring Provider Family Medicine; Visit Provider Physician Assistant Surgical | CPT/HCPCS: 99214 ==

== ENCOUNTER 2024-10-11 08:54 | Outpatient (CLI) | payer OTHER, MEDICARE, SELFPAY ==
--- NOTE | 2024-10-11 08:45 | RT.EKG_ITS ---
APPROVED REPORT Exam: Resting ECG Reason for Exam: Double vessel coronary artery disease Patient Location: O HR:78 bpm ECG Measurements Heart Rate 78 AXIS VT 150 P -2 QRSd 81 QRS 55 QT 347 T 61 QTc 396 Conclusion Sinus rhythm...normal P axis, V-rate 50- 99 Low voltage, extremity and precordial leads...extremity<0.5mV, precordial<1.0mV Otherwise normal ECG
== END 2024-10-11 08:55 | disposition home or self-care (01) ==
LOC: DI.CARD 08:57
PROVIDERS: PCP Family Medicine; Referring Provider Family Medicine; Visit Provider Internal Medicine Cardiovascular Disease
DX: I25.10 Atherosclerotic heart disease of native coronary artery without angina pectoris (principal)
CPT/HCPCS: 93010

== ENCOUNTER → 2024-10-11 08:54 | Outpatient (BNVA) | payer OTHER, MEDICARE, SELFPAY | PROVIDERS: PCP Family Medicine; Referring Provider Family Medicine; Visit Provider Internal Medicine Cardiovascular Disease | CPT/HCPCS: 99213; 93005 ==

== ENCOUNTER 2024-11-07 18:27 | Outpatient (REF) | payer OTHER, MEDICARE, SELFPAY ==
--- NOTE | 2024-11-07 14:30 | PAPFT_PTH ---
PATIENT: Nallely Thompson LOC: [facility]#:[id number] AGE/SX: 69/F ROOM: RE11/07/[address]: Haylee Baptiste V : 1955 BED: DIS: 11/07/2024 SPEC #: [id number] RECD: 11/07/24 18:29 STATUS: BLAZE RELeslye #: [id number] KRISTAN: 11/07/24 14:[address]: Haylee Baptiste V DEPT: [facility] Cytology RECD BY: Domitila Mike Tissues: 1 - CX/ENDOCX FOR PAP SMEARS Procedures: PAP THIN PREP/[facility] Screening HPV DNA PROBE Comments: [id number] (HPV 16 & 18/45)
== END 2024-11-07 18:28 | disposition home or self-care (01) ==
LOC: NCHCN 18:27
PROVIDERS: PCP Family Medicine; Visit Provider Family Medicine
DX: Z12.4 Encounter for screening for malignant neoplasm of cervix (principal)
CPT/HCPCS: 88142; 87624